=== PATIENT | male | born 1940 | race Caucasian/White ===

== ENCOUNTER 2020-02-01 06:42 | Outpatient (REF) | payer MEDICARE, SELFPAY ==
[2020-02-01 07:50] LABS: MANUAL DIFF FLAG NO
[2020-02-01 07:55] LABS: Basophils Percent Auto 0.5 % (0-2); Eosinophils Absolute Auto 0.1 X10*3/uL (0.0-0.4); Eosinophils Percent Auto 1.4 % (0-4); Hematocrit 39.9 % (42-52); Hemoglobin 12.6 g/dl (14.0-18.0); Imm Gran Abs Auto 0.06 X10*3/uL (0.00-0.03); Imm Gran Pct Auto 0.7 % (0.0-0.4); Lymphocytes Absolute Auto 1.7 X10*3/uL (1.2-4.9); Lymphocytes Percent Auto 19.4 % (20-40); Mean Corpuscular HGB Conc 31.6 g/dl (31.0-36.0); Mean Corpuscular Hemoglobin 31.5 pg (27.0-33.0); Mean Corpuscular Volume 99.8 fL (80-98); Mean Platelet Volume 10.8 fL (9.4-12.4); Monocytes Absolute Auto 0.8 X10*3/uL (0.1-1.2); Monocytes Percent Auto 8.9 % (2-11); Neutrophils Absolute Auto 5.9 X10*3/uL (2.0-8.3); Neutrophils Percent Auto 69.1 % (45-73); Platelet Count 191 X10*3/uL (160-400); Red Cell Distribution Width 11.9 % (11.0-16.0); White Blood Count 8.5 X10*3/uL (4.8-10.8)
[2020-02-01 08:08] LABS: Estimated Average Glucose 200 mg/dL; Hemoglobin A1c % 8.6 %
[2020-02-01 08:16] LABS: Creatinine Urine 125.07 mg/dL; Microalbum/Creatinine Ratio Ur 28.7 ug/mg cr
[2020-02-01 08:17] LABS: Alanine Aminotransferase 28 U/L (0-40); Albumin Level 3.7 g/dL (3.5-5.0); Alkaline Phosphatase 72 U/L (39-117); Anion Gap 13 (12-20); Aspartate Amino Transferase 28 U/L (5-37); Bilirubin Total 0.4 mg/dL (0.0-1.0); Blood Urea Nitrogen 22 mg/dL (9-16); Calcium 8.7 mg/dL (8.4-10.2); Carbon Dioxide 26 mmol/L (22-29); Chloride 107 mmol/L (96-108); Estimated Glomerular Filt Rate 42; Glucose Fasting 145 mg/dL (60-99); Sodium 141 mmol/L (135-145); Total Protein 6.8 g/dL (6.5-8.0)
[2020-02-01 08:41] LABS: Prostate Specific Antigen Scr 1.61 ng/mL (<0.05-4.0)
== END 2020-02-01 06:43 | disposition home or self-care (01) ==
LOC: HO.LAB 06:42
PROVIDERS: Visit Provider Internal Medicine
DX: E11.22 Type 2 diabetes mellitus with diabetic chronic kidney disease (principal); I12.9 Hypertensive chronic kidney disease with stage 1 through stage 4 chronic kidney disease, or unspecified chronic kidney disease; N18.9 Chronic kidney disease, unspecified; I48.0 Paroxysmal atrial fibrillation; N40.0 Benign prostatic hyperplasia without lower urinary tract symptoms
CPT/HCPCS: 36415; 80053; 82043; 83036; 84153; 85025

== ENCOUNTER 2020-03-28 06:22 | Outpatient (REF) | payer MEDICARE, SELFPAY ==
[2020-03-28 07:04] LABS: MANUAL DIFF FLAG NO
[2020-03-28 07:25] LABS: Basophils Percent Auto 0.6 % (0-2); Eosinophils Absolute Auto 0.1 X10*3/uL (0.0-0.4); Eosinophils Percent Auto 1.3 % (0-4); Hematocrit 38.6 % (42-52); Hemoglobin 12.3 g/dl (14.0-18.0); Imm Gran Abs Auto 0.05 X10*3/uL (0.00-0.03); Imm Gran Pct Auto 0.7 % (0.0-0.4); Lymphocytes Absolute Auto 1.5 X10*3/uL (1.2-4.9); Lymphocytes Percent Auto 22.2 % (20-40); Mean Corpuscular HGB Conc 31.9 g/dl (31.0-36.0); Mean Corpuscular Hemoglobin 30.8 pg (27.0-33.0); Mean Corpuscular Volume 96.5 fL (80-98); Monocytes Absolute Auto 0.5 X10*3/uL (0.1-1.2); Monocytes Percent Auto 7.7 % (2-11); Neutrophils Absolute Auto 4.6 X10*3/uL (2.0-8.3); Neutrophils Percent Auto 67.5 % (45-73); Platelet Count 194 X10*3/uL (160-400); Red Cell Distribution Width 12.4 % (11.0-16.0); White Blood Count 6.8 X10*3/uL (4.8-10.8)
[2020-03-28 07:29] LABS: Creatinine Urine 184.57 mg/dL; Microalbum/Creatinine Ratio Ur 31.4 ug/mg cr
[2020-03-28 07:35] LABS: Estimated Average Glucose 217 mg/dL; Hemoglobin A1c % 9.2 %
[2020-03-28 07:39] LABS: Alanine Aminotransferase 29 U/L (0-40); Albumin Level 3.9 g/dL (3.5-5.0); Alkaline Phosphatase 78 U/L (39-117); Anion Gap 11 (12-20); Aspartate Amino Transferase 25 U/L (5-37); Bilirubin Total 0.3 mg/dL (0.0-1.0); Blood Urea Nitrogen 21 mg/dL (9-16); Calcium 9.5 mg/dL (8.4-10.2); Carbon Dioxide 26 mmol/L (22-29); Chloride 105 mmol/L (96-108); Estimated Glomerular Filt Rate 46; Glucose Random 183 mg/dL (60-115); Potassium 4.9 mmol/l (3.3-5.1); Sodium 137 mmol/L (135-145)
== END 2020-03-28 06:23 | disposition home or self-care (01) ==
LOC: HO.LAB 06:22
PROVIDERS: Visit Provider Internal Medicine
DX: E11.9 Type 2 diabetes mellitus without complications (principal); I48.0 Paroxysmal atrial fibrillation; I12.9 Hypertensive chronic kidney disease with stage 1 through stage 4 chronic kidney disease, or unspecified chronic kidney disease; N18.9 Chronic kidney disease, unspecified
CPT/HCPCS: 36415; 80053; 82043; 83036; 85025

== ENCOUNTER 2020-06-12 09:06 | Outpatient (REF) | payer MEDICARE, SELFPAY ==
[2020-06-12 13:39] LABS: MANUAL DIFF FLAG NO
[2020-06-12 13:53] LABS: Basophils Percent Auto 0.6 % (0-2); Eosinophils Percent Auto 0.7 % (0-4); Hematocrit 34.8 % (42-52); Hemoglobin 11.2 g/dl (14.0-18.0); Imm Gran Pct Auto 0.4 % (0.0-0.4); Lymphocytes Percent Auto 20.8 % (20-40); Mean Corpuscular HGB Conc 32.2 g/dl (31.0-36.0); Mean Corpuscular Hemoglobin 31.1 pg (27.0-33.0); Mean Corpuscular Volume 96.7 fL (80-98); Mean Platelet Volume 11.2 fL (9.4-12.4); Monocytes Percent Auto 7.3 % (2-11); Neutrophils Percent Auto 70.2 % (45-73); Platelet Count 190 X10*3/uL (160-400); Red Cell Distribution Width 13.2 % (11.0-16.0); White Blood Count 7.1 X10*3/uL (4.8-10.8)
[2020-06-12 13:54] LABS: Eosinophils Absolute Auto 0.1 X10*3/uL (0.0-0.4); Imm Gran Abs Auto 0.03 X10*3/uL (0.00-0.03); Lymphocytes Absolute Auto 1.5 X10*3/uL (1.2-4.9); Monocytes Absolute Auto 0.5 X10*3/uL (0.1-1.2)
[2020-06-12 14:26] LABS: Alanine Aminotransferase 22 U/L (0-40); Albumin Level 3.8 g/dL (3.5-5.0); Alkaline Phosphatase 67 U/L (39-117); Anion Gap 14 (12-20); Aspartate Amino Transferase 25 U/L (5-37); Bilirubin Total 0.3 mg/dL (0.0-1.0); Blood Urea Nitrogen 18 mg/dL (9-16); Calcium 8.9 mg/dL (8.4-10.2); Carbon Dioxide 24 mmol/L (22-29); Chloride 104 mmol/L (96-108); Estimated Glomerular Filt Rate 52; Glucose Random 128 mg/dL (60-115); Lactate Dehydrogenase 177 U/L (118-273); Potassium 4.8 mmol/L (3.3-5.1); Sodium 137 mmol/L (135-145); Total Protein 6.8 g/dL (6.5-8.0)
[2020-06-12 14:33] LABS: Erythrocyte Sedimentation Rate 30 MM/HR (0-15)
== END 2020-06-12 09:07 | disposition home or self-care (01) ==
LOC: HO.10HDL 09:06
PROVIDERS: Visit Provider Internal Medicine Medical Oncology
DX: C85.90 Non-Hodgkin lymphoma, unspecified, unspecified site (principal); E66.3 Overweight; E11.9 Type 2 diabetes mellitus without complications; E78.5 Hyperlipidemia, unspecified; I10 Essential (primary) hypertension
CPT/HCPCS: 36415; 80053; 83615; 85025; 85652

== ENCOUNTER 2020-07-03 06:49 | Outpatient (REF) | payer MEDICARE, OTHER, SELFPAY ==
[2020-07-03 07:54] LABS: MANUAL DIFF FLAG NO
[2020-07-03 08:04] LABS: Basophils Percent Auto 0.5 % (0-2); Eosinophils Absolute Auto 0.1 X10*3/uL (0.0-0.4); Eosinophils Percent Auto 1.1 % (0-4); Imm Gran Abs Auto 0.05 X10*3/uL (0.00-0.03); Imm Gran Pct Auto 0.8 % (0.0-0.4); Lymphocytes Absolute Auto 1.6 X10*3/uL (1.2-4.9); Lymphocytes Percent Auto 23.7 % (20-40); Mean Corpuscular HGB Conc 32.4 g/dl (31.0-36.0); Mean Corpuscular Hemoglobin 31.3 pg (27.0-33.0); Mean Corpuscular Volume 96.9 fL (80-98); Mean Platelet Volume 11.1 fL (9.4-12.4); Monocytes Absolute Auto 0.6 X10*3/uL (0.1-1.2); Monocytes Percent Auto 8.7 % (2-11); Neutrophils Absolute Auto 4.4 X10*3/uL (2.0-8.3); Neutrophils Percent Auto 65.2 % (45-73); Platelet Count 157 X10*3/uL (160-400); Red Blood Count 3.51 X10*6/uL (4.60-5.80); Red Cell Distribution Width 13.2 % (11.0-16.0); White Blood Count 6.7 X10*3/uL (4.8-10.8)
[2020-07-03 08:17] LABS: Alanine Aminotransferase 22 U/L (0-40); Albumin Level 3.6 g/dL (3.5-5.0); Alkaline Phosphatase 66 U/L (39-117); Anion Gap 15 (12-20); Aspartate Amino Transferase 24 U/L (5-37); Bilirubin Total 0.3 mg/dL (0.0-1.0); Blood Urea Nitrogen 22 mg/dL (9-16); Calcium 8.6 mg/dL (8.4-10.2); Carbon Dioxide 21 mmol/L (22-29); Chloride 106 mmol/L (96-108); Estimated Glomerular Filt Rate 47; Glucose Random 198 mg/dL (60-115); Potassium 4.7 mmol/L (3.3-5.1); Sodium 137 mmol/L (135-145); Total Protein 6.6 g/dL (6.5-8.0)
[2020-07-03 08:31] LABS: Glucose Urine UA NEG (NEG); Leukocyte Esterase Urine TRACE (NEG); Nitrite Urine NEG (NEG); Urine Blood NEG (NEG); Urine Ketones NEG (NEG); Urine Protein NEG (NEG-TRACE)
[2020-07-03 08:42] LABS: Appearance Urine CLEAR; Color Urine YELLOW
[2020-07-03 08:55] LABS: RBC Urine 0 /HPF (0); Squamous Epithelial Cell Urine TRACE /LPF; WBC Urine 0-2 /HPF (0-4)
[2020-07-03 08:59] LABS: Creatinine Urine 119.74 mg/dL; Microalbum/Creatinine Ratio Ur 21.7 ug/mg cr
[2020-07-03 09:09] LABS: Estimated Average Glucose 180 mg/dL; Hemoglobin A1c % 7.9 %
== END 2020-07-03 06:50 | disposition home or self-care (01) ==
LOC: HO.LAB 06:49
PROVIDERS: PCP Internal Medicine; Visit Provider Internal Medicine
DX: I12.9 Hypertensive chronic kidney disease with stage 1 through stage 4 chronic kidney disease, or unspecified chronic kidney disease (principal); E11.22 Type 2 diabetes mellitus with diabetic chronic kidney disease; N18.9 Chronic kidney disease, unspecified
CPT/HCPCS: 36415; 80053; 81001; 81003; 82043; 83036; 85025

== ENCOUNTER 2020-09-15 14:04 | Outpatient (REF) | payer MEDICARE, OTHER, SELFPAY ==
[2020-09-15 14:57] LABS: MANUAL DIFF FLAG NO
[2020-09-15 15:00] LABS: Basophils Absolute Auto 0.1 X10*3/uL (0.0-0.2); Basophils Percent Auto 0.8 % (0-2); Eosinophils Absolute Auto 0.1 X10*3/uL (0.0-0.4); Eosinophils Percent Auto 0.6 % (0-4); Hematocrit 31.9 % (42-52); Hemoglobin 10.4 g/dl (14.0-18.0); Imm Gran Abs Auto 0.21 X10*3/uL (0.00-0.03); Imm Gran Pct Auto 2.7 % (0.0-0.4); Mean Corpuscular HGB Conc 32.6 g/dl (31.0-36.0); Mean Corpuscular Volume 95.2 fL (80-98); Mean Platelet Volume 11.3 fL (9.4-12.4); Monocytes Absolute Auto 0.7 X10*3/uL (0.1-1.2); Monocytes Percent Auto 9.2 % (2-11); Neutrophils Absolute Auto 5.7 X10*3/uL (2.0-8.3); Neutrophils Percent Auto 73.7 % (45-73); Platelet Count 156 X10*3/uL (160-400); Red Blood Count 3.35 X10*6/uL (4.60-5.80); Red Cell Distribution Width 12.7 % (11.0-16.0); White Blood Count 7.7 X10*3/uL (4.8-10.8)
[2020-09-15 15:06] LABS: Estimated Average Glucose 217 mg/dL; Hemoglobin A1c % 9.2 %
[2020-09-15 15:21] LABS: Glucose Urine UA 500 MG/DL (NEG); Leukocyte Esterase Urine 3+ (NEG); Nitrite Urine NEG (NEG); Specific Gravity - Urine <= 1.005 (1.005-1.025); Urine Blood TRACE (NEG); Urine Ketones NEG (NEG); Urine Protein NEG (NEG-TRACE)
[2020-09-15 15:24] LABS: Appearance Urine HAZY; Color Urine YELLOW
[2020-09-15 15:25] LABS: Alanine Aminotransferase 44 U/L (0-40); Albumin Level 3.4 g/dL (3.5-5.0); Alkaline Phosphatase 107 U/L (39-117); Anion Gap 15 (12-20); Aspartate Amino Transferase 45 U/L (5-37); Bilirubin Total 0.2 mg/dL (0.0-1.0); Blood Urea Nitrogen 29 mg/dL (9-16); Calcium 8.5 mg/dL (8.4-10.2); Carbon Dioxide 21 mmol/L (22-29); Chloride 103 mmol/L (96-108); Estimated Glomerular Filt Rate 42; Glucose Random 273 mg/dL (60-115); Potassium 4.7 mmol/L (3.3-5.1); Sodium 134 mmol/L (135-145); Total Protein 6.4 g/dL (6.5-8.0)
[2020-09-15 15:36] LABS: Creatinine Urine 41.91 mg/dL; Microalbum/Creatinine Ratio Ur 107.3 ug/mg cr
[2020-09-15 15:54] LABS: Bacteria Urine 4+ /LPF; RBC Urine 0-2 /HPF (0); Squamous Epithelial Cell Urine 1+ /LPF
== END 2020-09-15 14:05 | disposition home or self-care (01) ==
LOC: HO.LAB 14:04
PROVIDERS: PCP Internal Medicine; Visit Provider Internal Medicine
DX: R30.0 Dysuria (principal); I48.0 Paroxysmal atrial fibrillation; I12.9 Hypertensive chronic kidney disease with stage 1 through stage 4 chronic kidney disease, or unspecified chronic kidney disease; N18.9 Chronic kidney disease, unspecified; E11.22 Type 2 diabetes mellitus with diabetic chronic kidney disease
CPT/HCPCS: 36415; 80053; 81001; 81003; 82043; 83036; 85025; 87086; 87088; 87186

== ENCOUNTER 2020-09-18 15:51 | Outpatient (REF) | payer MEDICARE, OTHER, SELFPAY ==
--- NOTE | ~2020-09-18 | US_ITS ---
EXAMINATION: US RETROPERITONEAL COMPLETE (RENAL) CLINICAL INFORMATION: Dysuria. COMPARISON: None TECHNIQUE: Real-time imaging of the kidneys and bladder. FINDINGS: RIGHT KIDNEY: 10.7 x 4.8 x 4.9 cm (SAG x AP x TRV). The kidney is normal in size, contour, and echogenicity. Renal cortical thickness is normal. No calculi or focal parenchymal lesions. No hydronephrosis. LEFT KIDNEY: 11.6 x 4.5 x 4.6 cm (SAG x AP x TRV). The kidney is normal in size, contour, and echogenicity. Renal cortical thickness is normal. No calculi or focal parenchymal lesions. No hydronephrosis. BLADDER: Not well visualized due to bowel gas.. Bilateral ureteral jets are demonstrated. Prevoid bladder volume is 171.5 mL. Postvoid bladder volume is 70.2 mL. The prostate gland is not seen. US/US retroperitoneal comp IMPRESSION: Normal renal ultrasound. Bladder not well visualized by ultrasound due to bowel gas. 70 mL post void bladder residual.
[2020-09-18 16:59] LABS: Glucose Urine UA >=1000 MG/DL (NEG); Leukocyte Esterase Urine TRACE (NEG); Nitrite Urine NEG (NEG); UACC Culture Trigger YES; Urine Blood NEG (NEG); Urine Ketones NEG (NEG); Urine Protein NEG (NEG-TRACE)
[2020-09-18 17:02] LABS: Anion Gap 13 (12-20); Blood Urea Nitrogen 23 mg/dL (9-16); Calcium 8.7 mg/dL (8.4-10.2); Carbon Dioxide 21 mmol/L (22-29); Chloride 106 mmol/L (96-108); Estimated Glomerular Filt Rate 43; Glucose Random 382 mg/dL (60-115); Potassium 4.7 mmol/L (3.3-5.1); Sodium 135 mmol/L (135-145)
[2020-09-18 17:04] LABS: Appearance Urine CLEAR; Color Urine STRAW
== END 2020-09-18 15:52 | disposition home or self-care (01) ==
LOC: HO.US 15:51
PROVIDERS: PCP Internal Medicine; Visit Provider Internal Medicine
DX: R30.0 Dysuria (principal); I10 Essential (primary) hypertension; R35.0 Frequency of micturition
CPT/HCPCS: 36415; 76770; 80048; 81001; 81003; 87086

== ENCOUNTER → 2020-11-01 14:33 | Outpatient (BNVA) | payer MEDICARE, OTHER, SELFPAY | PROVIDERS: PCP Internal Medicine; Visit Provider Urology | DX: N40.1 Benign prostatic hyperplasia with lower urinary tract symptoms (principal); N13.8 Other obstructive and reflux uropathy; N39.0 Urinary tract infection, site not specified; R33.9 Retention of urine, unspecified | CPT/HCPCS: 99212 ==

== ENCOUNTER → 2020-12-07 08:38 | Outpatient (BNVA) | payer MEDICARE, OTHER, SELFPAY | PROVIDERS: PCP Internal Medicine; Visit Provider Urology | DX: N40.1 Benign prostatic hyperplasia with lower urinary tract symptoms (principal); N13.8 Other obstructive and reflux uropathy; R33.9 Retention of urine, unspecified | CPT/HCPCS: 52000; 99212 ==

== ENCOUNTER 2020-12-15 09:22 | Outpatient (REF) | payer MEDICARE, OTHER, SELFPAY ==
[2020-12-15 10:01] LABS: MANUAL DIFF FLAG NO
[2020-12-15 10:11] LABS: Basophils Percent Auto 0.5 % (0-2); Eosinophils Absolute Auto 0.1 X10*3/uL (0.0-0.4); Eosinophils Percent Auto 0.8 % (0-4); Hematocrit 34.4 % (42-52); Hemoglobin 11.3 g/dl (14.0-18.0); Imm Gran Abs Auto 0.03 X10*3/uL (0.00-0.03); Imm Gran Pct Auto 0.5 % (0.0-0.4); Lymphocytes Percent Auto 16.8 % (20-40); Mean Corpuscular HGB Conc 32.8 g/dl (31.0-36.0); Mean Corpuscular Hemoglobin 31.1 pg (27.0-33.0); Mean Corpuscular Volume 94.8 fL (80-98); Mean Platelet Volume 10.8 fL (9.4-12.4); Monocytes Absolute Auto 0.4 X10*3/uL (0.1-1.2); Monocytes Percent Auto 7.3 % (2-11); Neutrophils Absolute Auto 4.5 X10*3/uL (2.0-8.3); Neutrophils Percent Auto 74.1 % (45-73); Platelet Count 147 X10*3/uL (160-400); Red Blood Count 3.63 X10*6/uL (4.60-5.80); Red Cell Distribution Width 13.2 % (11.0-16.0)
[2020-12-15 10:25] LABS: Estimated Average Glucose 255 mg/dL; Hemoglobin A1c % 10.5 %
[2020-12-15 10:29] LABS: Lactate Dehydrogenase 170 U/L (118-273)
[2020-12-15 10:51] LABS: Alanine Aminotransferase 51 U/L (0-40); Albumin Level 3.7 g/dL (3.5-5.0); Alkaline Phosphatase 69 U/L (39-117); Anion Gap 13 (12-20); Aspartate Amino Transferase 42 U/L (5-37); Bilirubin Total 0.5 mg/dL (0.0-1.0); Blood Urea Nitrogen 24 mg/dL (9-16); Calcium 9.2 mg/dL (8.4-10.2); Carbon Dioxide 20 mmol/L (22-29); Chloride 106 mmol/L (96-108); Estimated Glomerular Filt Rate 35; Glucose Random 454 mg/dL (60-115); Potassium 5.1 mmol/L (3.3-5.1); Sodium 134 mmol/L (135-145); Total Protein 6.6 g/dL (6.5-8.0)
[2020-12-15 10:56] LABS: Creatinine Urine 133.96 mg/dL; Microalbum/Creatinine Ratio Ur 22.3 ug/mg cr
[2020-12-15 12:27] LABS: Erythrocyte Sedimentation Rate 34 MM/HR (0-15)
== END 2020-12-15 09:23 | disposition home or self-care (01) ==
LOC: HO.LAB 09:22
PROVIDERS: Absent Provider Internal Medicine; PCP Internal Medicine; Visit Provider Internal Medicine Medical Oncology
DX: C85.90 Non-Hodgkin lymphoma, unspecified, unspecified site (principal); I48.0 Paroxysmal atrial fibrillation; I12.9 Hypertensive chronic kidney disease with stage 1 through stage 4 chronic kidney disease, or unspecified chronic kidney disease; E11.22 Type 2 diabetes mellitus with diabetic chronic kidney disease; N18.9 Chronic kidney disease, unspecified
CPT/HCPCS: 36415; 80053; 82043; 83036; 83615; 85025; 85652

== ENCOUNTER 2021-04-23 06:34 | Outpatient (REF) | payer MEDICARE, OTHER, SELFPAY ==
[2021-04-23 07:37] LABS: Estimated Average Glucose 240 mg/dL
[2021-04-23 07:54] LABS: Anion Gap 11 (12-20); Blood Urea Nitrogen 28 mg/dL (9-16); Calcium 9.5 mg/dL (8.4-10.2); Carbon Dioxide 27 mmol/L (22-29); Chloride 104 mmol/L (96-108); Estimated Glomerular Filt Rate 44; Glucose Random 161 mg/dL (60-115); Potassium 4.8 mmol/L (3.3-5.1); Sodium 137 mmol/L (135-145)
== END 2021-04-23 06:35 | disposition home or self-care (01) ==
LOC: HO.LAB 06:34
PROVIDERS: PCP Internal Medicine; Visit Provider Internal Medicine
DX: I12.9 Hypertensive chronic kidney disease with stage 1 through stage 4 chronic kidney disease, or unspecified chronic kidney disease (principal); E11.22 Type 2 diabetes mellitus with diabetic chronic kidney disease; N18.9 Chronic kidney disease, unspecified; I73.9 Peripheral vascular disease, unspecified
CPT/HCPCS: 36415; 80048; 83036

== ENCOUNTER → 2021-04-27 07:37 | Outpatient (REF) | payer MEDICARE, OTHER, SELFPAY ==
--- NOTE | ~2021-04-27 | NM_ITS ---
Myocardial perfusion study Indication: Shortness of breath on exertion with abnormal EKG to evaluate for myocardial Technique: The patient was brought in for a Lexiscan perfusion study on 04/27/2021. Patient performed low-level exercise and was injected 0.4 mg of Lexiscan intravenously. Within a minute of injection, 30 mCi of sestamibi was given intravenously. Images were obtained using the SPECT gamma camera interlaced with the gating device. Images were obtained in supine position. Resting perfusion study was performed on 04/30/2021. Patient was administered 30 mCi of sestamibi intravenously at rest. Images were then obtained in supine position. Images obtained with and without CT attenuation. Total DLP 110 mGy-cm. Images were processed with the software and compared side to side in short axis, horizontal long axis and vertical long axis views. Findings: The stress perfusion study showed non attenuated images show moderately reduced uptake in the basal and mid inferior wall as well as apical inferior and apex of the LV myocardium. Attenuation corrected images show moderately reduced uptake in the apex of the LV myocardium.. The gated study shows normal LV systolic function with visually estimated LVEF of greater than 60 %. LV cavity is mildly dilated size. The gated study shows normal systolic wall thickening and contraction of segments. Resting study shows no significant change in perfusion pattern compared to stress perfusion study. Gating at rest reveals normal systolic wall motion with ejection fraction at 61%. The findings are consistent with no clear reversible defect suggestive of ischemia. NM/NM josr perf SPECT rest & str Impression: 1. Myocardial perfusion imaging study shows likely normal myocardial perfusion 2. Gated LVEF is 61% 3. Transient ischemic dilatation not present EKG is nondiagnostic for ischemia
--- NOTE | 2021-04-27 07:41 | CA_ITS ---
Acquisition Time: 2021-04-27 07:39:59 Total Exercise Time: 00:02:00 Test Indications: Abnormal ECG Medications: INSULIN GLIPIZIDE TOPROLOL Protocol: LEXISCAN Max HR: 105 BPM 74% of Pred: 141 BPM Max BP: 124/054 mmHG Max Work Load: 1.7 METS EVELIA/MIBI PROTOCOL. SOME MILD CHEST TIGHTNESS. PT WALKED 2MIN ON TREADMILL. 1MMST SAGGING IN V5-6. RARE PVC.CLINICALLY EQUIVOCAL,AWAIT SCAN RESULTS. Referred By: Donte Hernandez Overread By: JOSEPH HERNANDEZ MD
== END ==
LOC: HO.CARD 07:37
PROVIDERS: Visit Provider Internal Medicine
DX: R06.02 Shortness of breath (principal); I48.0 Paroxysmal atrial fibrillation; R94.39 Abnormal result of other cardiovascular function study
CPT/HCPCS: 78452; 93017; A9500; J0280; J2785

== ENCOUNTER → 2021-06-07 10:33 | Outpatient (BNVA) | payer MEDICARE, OTHER, SELFPAY | PROVIDERS: PCP Internal Medicine; Visit Provider Urology | DX: N40.1 Benign prostatic hyperplasia with lower urinary tract symptoms (principal); N13.8 Other obstructive and reflux uropathy; R33.9 Retention of urine, unspecified | CPT/HCPCS: 51798; 99212 ==

== ENCOUNTER 2021-08-30 10:00 | Outpatient (REF) | payer MEDICARE, OTHER, SELFPAY ==
--- NOTE | ~2021-08-30 | XR_ITS ---
EXAMINATION: XR CHEST CLINICAL INFORMATION: COPD, evaluate for pneumonia. COMPARISON: Chest radiograph dated from 12/18/2017. TECHNIQUE: 2 views of the chest were obtained. FINDINGS: Stable appearance of the cardiomediastinal silhouette. Minimal interstitial thickening with no focal airspace opacities, pleural effusion or pneumothorax. No acute osseous abnormality. The visualized upper abdomen is within normal limits. XR/XR chest 2V IMPRESSION: Mild interstitial prominence is indeterminate and could be seen with asthma, bronchitis, reactive airways disease or atypical infections. No focal infiltrate. No pleural effusion or pneumothorax.
[2021-08-30 10:23] LABS: MANUAL DIFF FLAG NO
[2021-08-30 11:19] LABS: Estimated Average Glucose 194 mg/dL; Hemoglobin A1c % 8.4 %
[2021-08-30 11:23] LABS: Basophils Percent Auto 0.7 % (0-2); Eosinophils Absolute Auto 0.1 X10*3/uL (0.0-0.4); Eosinophils Percent Auto 1.1 % (0-4); Hematocrit 32.9 % (42.0-52.0); Hemoglobin 10.5 g/dl (14.0-18.0); Imm Gran Abs Auto 0.03 X10*3/uL (0.00-0.03); Imm Gran Pct Auto 0.5 % (0.0-0.4); Lymphocytes Absolute Auto 1.5 X10*3/uL (1.2-4.9); Lymphocytes Percent Auto 26.3 % (20-40); Mean Corpuscular HGB Conc 31.9 g/dl (31.0-36.0); Mean Corpuscular Hemoglobin 30.8 pg (27.0-33.0); Mean Corpuscular Volume 96.5 fL (80.0-98.0); Mean Platelet Volume 11.3 fL (9.4-12.4); Monocytes Absolute Auto 0.4 X10*3/uL (0.1-1.2); Monocytes Percent Auto 7.8 % (2-11); Neutrophils Absolute Auto 3.6 x10*3/uL (2.0-8.3); Neutrophils Percent Auto 63.6 % (45-73); Platelet Count 145 X10*3/uL (160-400); Red Blood Count 3.41 X10*6/uL (4.60-5.80); Red Cell Distribution Width 14.8 % (11.0-16.0); White Blood Count 5.6 X10*3/uL (4.8-10.8)
[2021-08-30 11:54] LABS: Alanine Aminotransferase 29 U/L (0-40); Albumin Level 3.6 g/dL (3.5-5.0); Alkaline Phosphatase 62 U/L (39-117); Anion Gap 14 (12-20); Aspartate Amino Transferase 29 U/L (5-37); Bilirubin Total 0.3 mg/dL (0.0-1.0); Blood Urea Nitrogen 35 mg/dL (9-16); Calcium 8.7 mg/dL (8.4-10.2); Carbon Dioxide 20 mmol/L (22-29); Chloride 106 mmol/L (96-108); Estimated Glomerular Filt Rate 42; Glucose Random 253 mg/dL (60-115); Iron 79 mcg/dL (45-160); Percent Iron Saturation 25 % (15-50); Sodium 135 mmol/L (135-145); Total Iron Binding Capacity 317 mcg/dL (228-428); Total Protein 6.3 g/dL (6.5-8.0); Unsaturated Iron Binding 238 ug/dL
[2021-08-30 11:57] LABS: Creatinine Urine 155.48 mg/dL
== END 2021-08-30 10:01 | disposition home or self-care (01) ==
LOC: HO.XRAY 10:00
PROVIDERS: PCP Internal Medicine; Visit Provider Internal Medicine
DX: E11.9 Type 2 diabetes mellitus without complications (principal); J44.9 Chronic obstructive pulmonary disease, unspecified; N18.9 Chronic kidney disease, unspecified; D64.9 Anemia, unspecified
CPT/HCPCS: 36415; 71046; 80053; 82043; 83036; 83540; 85025

== ENCOUNTER 2021-11-06 16:19 | Outpatient (REF) | payer MEDICARE, OTHER, SELFPAY ==
[2021-11-06 16:38] LABS: MANUAL DIFF FLAG NO
[2021-11-06 17:04] LABS: Basophils Percent Auto 0.6 % (0-2); Eosinophils Absolute Auto 0.1 X10*3/uL (0.0-0.4); Eosinophils Percent Auto 1.4 % (0-4); Hematocrit 35.7 % (42.0-52.0); Hemoglobin 11.6 g/dl (14.0-18.0); Imm Gran Abs Auto 0.03 X10*3/uL (0.00-0.03); Imm Gran Pct Auto 0.5 % (0.0-0.4); Lymphocytes Absolute Auto 1.8 X10*3/uL (1.2-4.9); Lymphocytes Percent Auto 28.5 % (20-40); Mean Corpuscular HGB Conc 32.5 g/dl (31.0-36.0); Mean Corpuscular Volume 98.6 fL (80.0-98.0); Mean Platelet Volume 10.9 fL (9.4-12.4); Monocytes Absolute Auto 0.6 X10*3/uL (0.1-1.2); Monocytes Percent Auto 9.2 % (2-11); Neutrophils Absolute Auto 3.8 x10*3/uL (2.0-8.3); Neutrophils Percent Auto 59.8 % (45-73); Platelet Count 169 X10*3/uL (160-400); Red Blood Count 3.62 X10*6/uL (4.60-5.80); Red Cell Distribution Width 13.4 % (11.0-16.0); White Blood Count 6.3 X10*3/uL (4.8-10.8)
[2021-11-06 17:10] LABS: Estimated Average Glucose 160 mg/dL; Hemoglobin A1c % 7.2 %
[2021-11-06 17:33] LABS: Alanine Aminotransferase 23 U/L (0-40); Albumin Level 4.1 g/dL (3.5-5.0); Alkaline Phosphatase 59 U/L (39-117); Anion Gap 15 (12-20); Aspartate Amino Transferase 23 U/L (5-37); Bilirubin Total 0.2 mg/dL (0.0-1.0); Blood Urea Nitrogen 25 mg/dL (9-16); Calcium 8.9 mg/dL (8.4-10.2); Carbon Dioxide 23 mmol/L (22-29); Chloride 107 mmol/L (96-108); Estimated Glomerular Filt Rate 44; Glucose Random 123 mg/dL (60-115); Potassium 4.4 mmol/L (3.3-5.1); Sodium 141 mmol/L (135-145)
== END 2021-11-06 16:20 | disposition home or self-care (01) ==
LOC: HO.LAB 16:19
PROVIDERS: PCP Internal Medicine; Visit Provider Internal Medicine
DX: E11.9 Type 2 diabetes mellitus without complications (principal); I48.0 Paroxysmal atrial fibrillation; N18.9 Chronic kidney disease, unspecified
CPT/HCPCS: 36415; 80053; 83036; 85025

== ENCOUNTER 2021-12-17 12:58 | Outpatient (REF) | payer MEDICARE, OTHER, SELFPAY ==
[2021-12-17 13:18] LABS: MANUAL DIFF FLAG NO
[2021-12-17 14:01] LABS: Basophils Percent Auto 0.5 % (0-2); Eosinophils Absolute Auto 0.1 X10*3/uL (0.0-0.4); Eosinophils Percent Auto 1.8 % (0-4); Hematocrit 34.8 % (42.0-52.0); Hemoglobin 10.9 g/dl (14.0-18.0); Imm Gran Abs Auto 0.03 X10*3/uL (0.00-0.03); Imm Gran Pct Auto 0.5 % (0.0-0.4); Lymphocytes Absolute Auto 1.6 X10*3/uL (1.2-4.9); Lymphocytes Percent Auto 28.6 % (20-40); Mean Corpuscular HGB Conc 31.3 g/dl (31.0-36.0); Mean Corpuscular Hemoglobin 31.1 pg (27.0-33.0); Mean Corpuscular Volume 99.4 fL (80.0-98.0); Mean Platelet Volume 11.2 fL (9.4-12.4); Monocytes Absolute Auto 0.5 X10*3/uL (0.1-1.2); Neutrophils Absolute Auto 3.4 x10*3/uL (2.0-8.3); Neutrophils Percent Auto 59.6 % (45-73); Platelet Count 153 X10*3/uL (160-400); Red Cell Distribution Width 13.1 % (11.0-16.0); White Blood Count 5.7 X10*3/uL (4.8-10.8)
[2021-12-17 14:10] LABS: Estimated Average Glucose 160 mg/dL; Hemoglobin A1c % 7.2 %
[2021-12-17 14:41] LABS: Alanine Aminotransferase 18 U/L (0-40); Albumin Level 3.8 g/dL (3.5-5.0); Alkaline Phosphatase 64 U/L (39-117); Anion Gap 15 (12-20); Aspartate Amino Transferase 24 U/L (5-37); Bilirubin Total 0.2 mg/dL (0.0-1.0); Blood Urea Nitrogen 27 mg/dL (9-16); Calcium 8.8 mg/dL (8.4-10.2); Carbon Dioxide 20 mmol/L (22-29); Chloride 108 mmol/L (96-108); Estimated Glomerular Filt Rate 46; Glucose Random 116 mg/dL (60-115); Iron 51 mcg/dL (45-160); Lactate Dehydrogenase 155 U/L (118-273); Percent Iron Saturation 16 % (15-50); Potassium 4.3 mmol/L (3.3-5.1); Sodium 139 mmol/L (135-145); Total Iron Binding Capacity 329 mcg/dL (228-428); Total Protein 6.7 g/dL (6.5-8.0); Unsaturated Iron Binding 278 ug/dL
[2021-12-17 14:47] LABS: Erythrocyte Sedimentation Rate 28 MM/HR (0-15)
[2021-12-17 18:02] LABS: Creatinine Urine 26.03 mg/dL; Microalbum/Creatinine Ratio Ur 19.2 ug/mg cr
== END 2021-12-17 12:59 | disposition home or self-care (01) ==
LOC: HO.LAB 12:58
PROVIDERS: Absent Provider Internal Medicine; PCP Internal Medicine; Visit Provider Internal Medicine Medical Oncology
DX: C85.90 Non-Hodgkin lymphoma, unspecified, unspecified site (principal); E66.3 Overweight; E78.5 Hyperlipidemia, unspecified; I48.0 Paroxysmal atrial fibrillation; I12.9 Hypertensive chronic kidney disease with stage 1 through stage 4 chronic kidney disease, or unspecified chronic kidney disease; E11.22 Type 2 diabetes mellitus with diabetic chronic kidney disease; N18.9 Chronic kidney disease, unspecified; I73.9 Peripheral vascular disease, unspecified
CPT/HCPCS: 36415; 80053; 82043; 83036; 83540; 83615; 85025; 85652

== ENCOUNTER 2022-01-21 10:45 | Outpatient (REF) | payer MEDICARE, OTHER, SELFPAY ==
[2022-01-21 14:21] LABS: Prostate Specific Antigen Scr 0.59 ng/mL (<0.05-4.0)
== END 2022-01-21 10:46 | disposition home or self-care (01) ==
LOC: HO.10HDL 10:45
PROVIDERS: Visit Provider Internal Medicine
DX: Z12.5 Encounter for screening for malignant neoplasm of prostate (principal); N40.0 Benign prostatic hyperplasia without lower urinary tract symptoms; R35.1 Nocturia
CPT/HCPCS: 36415; 84153

== ENCOUNTER 2022-02-18 06:53 | Outpatient (REF) | payer MEDICARE, OTHER, SELFPAY ==
[2022-02-18 06:58] LABS: MANUAL DIFF FLAG NO
[2022-02-18 07:26] LABS: Basophils Percent Auto 0.6 % (0-2); Eosinophils Absolute Auto 0.1 X10*3/uL (0.0-0.4); Eosinophils Percent Auto 1.4 % (0-4); Hematocrit 37.6 % (42.0-52.0); Imm Gran Abs Auto 0.04 X10*3/uL (0.00-0.03); Imm Gran Pct Auto 0.6 % (0.0-0.4); Lymphocytes Absolute Auto 1.4 X10*3/uL (1.2-4.9); Lymphocytes Percent Auto 20.1 % (20-40); Mean Corpuscular HGB Conc 31.9 g/dl (31.0-36.0); Mean Corpuscular Hemoglobin 31.1 pg (27.0-33.0); Mean Corpuscular Volume 97.4 fL (80.0-98.0); Mean Platelet Volume 11.3 fL (9.4-12.4); Monocytes Absolute Auto 0.7 X10*3/uL (0.1-1.2); Monocytes Percent Auto 9.9 % (2-11); Neutrophils Absolute Auto 4.7 x10*3/uL (2.0-8.3); Neutrophils Percent Auto 67.4 % (45-73); Platelet Count 158 X10*3/uL (160-400); Red Blood Count 3.86 X10*6/uL (4.60-5.80); Red Cell Distribution Width 13.9 % (11.0-16.0)
[2022-02-18 07:56] LABS: Anion Gap 13 (12-20); Blood Urea Nitrogen 26 mg/dL (9-16); Calcium 8.6 mg/dL (8.4-10.2); Carbon Dioxide 22 mmol/L (22-29); Chloride 106 mmol/L (96-108); Cholesterol 140 mg/dL; Estimated Glomerular Filt Rate 43; Glucose Random 195 mg/dL (60-115); HDL Cholesterol 31 mg/dL; LDL Cholesterol Calculated 81 mg/dl; Potassium 4.6 mmol/L (3.3-5.1); Sodium 136 mmol/L (135-145); Triglycerides 140 mg/dL
== END 2022-02-18 06:54 | disposition home or self-care (01) ==
LOC: HO.LAB 06:53
PROVIDERS: PCP Internal Medicine; Visit Provider Nurse Practitioner Family
DX: E78.2 Mixed hyperlipidemia (principal); I48.0 Paroxysmal atrial fibrillation; E11.22 Type 2 diabetes mellitus with diabetic chronic kidney disease; N18.30 Chronic kidney disease, stage 3 unspecified
CPT/HCPCS: 36415; 80048; 80061; 85025

== ENCOUNTER → 2022-04-30 14:18 | Outpatient (BNVA) | payer MEDICARE, OTHER, SELFPAY | PROVIDERS: PCP Internal Medicine; Visit Provider Nurse Practitioner Family | DX: N40.1 Benign prostatic hyperplasia with lower urinary tract symptoms (principal); N13.8 Other obstructive and reflux uropathy; R33.8 Other retention of urine; N39.0 Urinary tract infection, site not specified; E11.9 Type 2 diabetes mellitus without complications; I10 Essential (primary) hypertension; C84.90 Mature T/NK-cell lymphomas, unspecified, unspecified site; Z79.82 Long term (current) use of aspirin; Z79.899 Other long term (current) drug therapy | CPT/HCPCS: 51798; 99212 ==

== ENCOUNTER 2022-06-13 06:57 | Outpatient (REF) | payer MEDICARE, OTHER, SELFPAY ==
[2022-06-13 07:12] LABS: MANUAL DIFF FLAG NO
[2022-06-13 07:48] LABS: Basophils Percent Auto 0.6 % (0-2); Eosinophils Absolute Auto 0.1 X10*3/uL (0.0-0.4); Eosinophils Percent Auto 1.1 % (0-4); Hematocrit 38.3 % (42.0-52.0); Hemoglobin 12.7 g/dl (14.0-18.0); Imm Gran Abs Auto 0.04 X10*3/uL (0.00-0.03); Imm Gran Pct Auto 0.7 % (0.0-0.4); Lymphocytes Absolute Auto 1.3 X10*3/uL (1.2-4.9); Lymphocytes Percent Auto 23.5 % (20-40); Mean Corpuscular HGB Conc 33.2 g/dl (31.0-36.0); Mean Corpuscular Hemoglobin 32.2 pg (27.0-33.0); Monocytes Absolute Auto 0.5 X10*3/uL (0.1-1.2); Monocytes Percent Auto 9.3 % (2-11); Neutrophils Absolute Auto 3.5 x10*3/uL (2.0-8.3); Neutrophils Percent Auto 64.8 % (45-73); Platelet Count 144 X10*3/uL (160-400); Red Blood Count 3.95 X10*6/uL (4.60-5.80); Red Cell Distribution Width 14.2 % (11.0-16.0); White Blood Count 5.4 X10*3/uL (4.8-10.8)
[2022-06-13 08:36] LABS: Alanine Aminotransferase 28 U/L (0-40); Albumin Level 3.8 g/dL (3.5-5.0); Alkaline Phosphatase 64 U/L (39-117); Anion Gap 16 (12-20); Aspartate Amino Transferase 30 U/L (5-37); Bilirubin Total 0.6 mg/dL (0.0-1.0); Blood Urea Nitrogen 27 mg/dL (9-16); Calcium 9.2 mg/dL (8.4-10.2); Carbon Dioxide 19 mmol/L (22-29); Chloride 110 mmol/L (96-108); Estimated Glomerular Filt Rate 53; Glucose Random 181 mg/dL (60-115); Lactate Dehydrogenase 219 U/L (118-273); Potassium 4.7 mmol/L (3.3-5.1); Sodium 140 mmol/L (135-145); Total Protein 6.8 g/dL (6.5-8.0)
[2022-06-13 08:43] LABS: Prostate Specific Antigen 0.59 ng/mL (<0.05-4.0)
[2022-06-13 08:45] LABS: Erythrocyte Sedimentation Rate 16 MM/HR (0-15)
== END 2022-06-13 06:58 | disposition home or self-care (01) ==
LOC: HO.LAB 06:57
PROVIDERS: PCP Internal Medicine; Visit Provider Internal Medicine Medical Oncology
DX: C85.90 Non-Hodgkin lymphoma, unspecified, unspecified site (principal); I10 Essential (primary) hypertension; C44.310 Basal cell carcinoma of skin of unspecified parts of face; Z12.5 Encounter for screening for malignant neoplasm of prostate
CPT/HCPCS: 36415; 80053; 83615; 84153; 85025; 85652

== ENCOUNTER 2022-10-10 08:35 | Outpatient (REF) | payer MEDICARE, OTHER, SELFPAY ==
[2022-10-10 11:06] LABS: Anion Gap 11 (12-20); Blood Urea Nitrogen 19 mg/dL (9-16); Calcium 9.1 mg/dL (8.4-10.2); Carbon Dioxide 23 mmol/L (22-29); Chloride 106 mmol/L (96-108); Estimated Glomerular Filt Rate 47; Glucose Random 334 mg/dL (60-115); Potassium 4.5 mmol/L (3.3-5.1); Sodium 135 mmol/L (135-145)
== END 2022-10-10 08:36 | disposition home or self-care (01) ==
LOC: HO.10HDL 08:35
PROVIDERS: Visit Provider Nurse Practitioner Family
DX: I10 Essential (primary) hypertension (principal)
CPT/HCPCS: 36415; 80048

== ENCOUNTER 2022-11-12 11:34 | Outpatient (REF) | payer MEDICARE, OTHER, SELFPAY ==
[2022-11-12 13:18] LABS: MANUAL DIFF FLAG NO
[2022-11-12 13:21] LABS: Basophils Percent Auto 0.5 % (0-2); Eosinophils Percent Auto 0.7 % (0-4); Hematocrit 39.5 % (42.0-52.0); Imm Gran Abs Auto 0.03 X10*3/uL (0.00-0.03); Imm Gran Pct Auto 0.5 % (0.0-0.4); Lymphocytes Absolute Auto 1.6 X10*3/uL (1.2-4.9); Lymphocytes Percent Auto 27.6 % (20-40); Mean Corpuscular HGB Conc 32.9 g/dl (31.0-36.0); Mean Corpuscular Hemoglobin 31.9 pg (27.0-33.0); Mean Corpuscular Volume 96.8 fL (80.0-98.0); Mean Platelet Volume 11.5 fL (9.4-12.4); Monocytes Absolute Auto 0.6 X10*3/uL (0.1-1.2); Monocytes Percent Auto 10.3 % (2-11); Neutrophils Absolute Auto 3.5 x10*3/uL (2.0-8.3); Neutrophils Percent Auto 60.4 % (45-73); Platelet Count 141 X10*3/uL (160-400); Red Blood Count 4.08 X10*6/uL (4.60-5.80); Red Cell Distribution Width 13.1 % (11.0-16.0); White Blood Count 5.7 X10*3/uL (4.8-10.8)
[2022-11-12 13:27] LABS: Estimated Average Glucose 177 mg/dL; Hemoglobin A1c % 7.8 % (<6.0)
[2022-11-12 13:38] LABS: Alanine Aminotransferase 28 U/L (0-40); Albumin Level 3.9 g/dL (3.5-5.0); Alkaline Phosphatase 55 U/L (39-117); Anion Gap 12 (12-20); Aspartate Amino Transferase 28 U/L (5-37); Bilirubin Total 0.6 mg/dL (0.0-1.0); Blood Urea Nitrogen 22 mg/dL (9-16); Calcium 9.8 mg/dL (8.4-10.2); Carbon Dioxide 24 mmol/L (22-29); Chloride 107 mmol/L (96-108); Estimated Glomerular Filt Rate 58; Glucose Random 77 mg/dL (60-115); Potassium 4.2 mmol/L (3.3-5.1); Sodium 139 mmol/L (135-145); Total Protein 7.2 g/dL (6.5-8.0)
== END 2022-11-12 11:35 | disposition home or self-care (01) ==
LOC: HO.10HDL 11:34
PROVIDERS: Visit Provider Internal Medicine
DX: I12.9 Hypertensive chronic kidney disease with stage 1 through stage 4 chronic kidney disease, or unspecified chronic kidney disease (principal); E11.22 Type 2 diabetes mellitus with diabetic chronic kidney disease; N18.9 Chronic kidney disease, unspecified; I48.0 Paroxysmal atrial fibrillation; E78.00 Pure hypercholesterolemia, unspecified
CPT/HCPCS: 36415; 80053; 83036; 85025

== ENCOUNTER 2023-01-29 06:56 | Outpatient (REF) | payer MEDICARE, OTHER, SELFPAY ==
[2023-01-29 07:06] LABS: MANUAL DIFF FLAG NO
[2023-01-29 07:36] LABS: Basophils Percent Auto 0.5 % (0-2); Eosinophils Absolute Auto 0.1 X10*3/uL (0.0-0.4); Eosinophils Percent Auto 1.1 % (0-4); Hematocrit 40.6 % (42.0-52.0); Hemoglobin 12.6 g/dl (14.0-18.0); Imm Gran Abs Auto 0.04 X10*3/uL (0.00-0.03); Imm Gran Pct Auto 0.6 % (0.0-0.4); Lymphocytes Absolute Auto 1.4 X10*3/uL (1.2-4.9); Lymphocytes Percent Auto 20.7 % (20-40); Mean Corpuscular Hemoglobin 31.1 pg (27.0-33.0); Mean Corpuscular Volume 100.2 fL (80.0-98.0); Mean Platelet Volume 10.8 fL (9.4-12.4); Monocytes Absolute Auto 0.6 X10*3/uL (0.1-1.2); Monocytes Percent Auto 9.3 % (2-11); Neutrophils Absolute Auto 4.5 x10*3/uL (2.0-8.3); Neutrophils Percent Auto 67.8 % (45-73); Platelet Count 182 X10*3/uL (160-400); Red Blood Count 4.05 X10*6/uL (4.60-5.80); Red Cell Distribution Width 13.5 % (11.0-16.0); White Blood Count 6.7 X10*3/uL (4.8-10.8)
[2023-01-29 08:01] LABS: Alanine Aminotransferase 21 U/L (0-40); Albumin Level 3.9 g/dL (3.5-5.0); Alkaline Phosphatase 68 U/L (39-117); Anion Gap 11 (12-20); Aspartate Amino Transferase 24 U/L (5-37); Bilirubin Total 0.6 mg/dL (0.0-1.0); Blood Urea Nitrogen 16 mg/dL (9-16); Calcium 9.4 mg/dL (8.4-10.2); Carbon Dioxide 24 mmol/L (22-29); Chloride 109 mmol/L (96-108); Cholesterol 116 mg/dL (<200); Estimated Glomerular Filt Rate 56; Glucose Fasting 143 mg/dL (60-99); HDL Cholesterol 33 mg/dL (>40); LDL Cholesterol Calculated 65 mg/dL (<100); Lactate Dehydrogenase 182 U/L (118-273); Potassium 4.2 mmol/L (3.3-5.1); Sodium 140 mmol/L (135-145); Total Protein 7.4 g/dL (6.5-8.0); Triglycerides 94 mg/dL (<150)
[2023-01-29 08:36] LABS: Erythrocyte Sedimentation Rate 34 MM/HR (0-15)
== END 2023-01-29 06:57 | disposition home or self-care (01) ==
LOC: HO.LAB 06:56
PROVIDERS: PCP Internal Medicine Medical Oncology; Visit Provider Internal Medicine Medical Oncology
DX: C85.90 Non-Hodgkin lymphoma, unspecified, unspecified site (principal); E78.5 Hyperlipidemia, unspecified
CPT/HCPCS: 36415; 80053; 80061; 83615; 85025; 85652

== ENCOUNTER 2023-05-26 06:59 | Outpatient (REF) | payer MEDICARE, OTHER, SELFPAY ==
[2023-05-26 07:21] LABS: MANUAL DIFF FLAG NO
[2023-05-26 07:33] LABS: Basophils Percent Auto 0.5 % (0-2); Eosinophils Absolute Auto 0.1 X10*3/uL (0.0-0.4); Eosinophils Percent Auto 1.2 % (0-4); Hemoglobin 10.8 g/dl (14.0-18.0); Imm Gran Abs Auto 0.03 X10*3/uL (0.00-0.03); Imm Gran Pct Auto 0.7 % (0.0-0.4); Mean Corpuscular HGB Conc 31.8 g/dl (31.0-36.0); Mean Corpuscular Hemoglobin 31.2 pg (27.0-33.0); Mean Corpuscular Volume 98.3 fL (80.0-98.0); Mean Platelet Volume 10.9 fL (9.4-12.4); Monocytes Absolute Auto 0.4 X10*3/uL (0.1-1.2); Monocytes Percent Auto 8.7 % (2-11); Neutrophils Absolute Auto 2.7 x10*3/uL (2.0-8.3); Neutrophils Percent Auto 65.9 % (45-73); Platelet Count 219 X10*3/uL (160-400); Red Blood Count 3.46 X10*6/uL (4.60-5.80); Red Cell Distribution Width 13.8 % (11.0-16.0); White Blood Count 4.1 X10*3/uL (4.8-10.8)
[2023-05-26 08:01] LABS: Lactate Dehydrogenase 183 U/L (118-273)
[2023-05-26 08:03] LABS: Estimated Average Glucose 154 mg/dL
[2023-05-26 08:08] LABS: Alanine Aminotransferase 26 U/L (0-40); Albumin Level 3.7 g/dL (3.5-5.0); Alkaline Phosphatase 64 U/L (39-117); Anion Gap 11 (12-20); Aspartate Amino Transferase 28 U/L (5-37); Bilirubin Total 0.5 mg/dL (0.0-1.0); Blood Urea Nitrogen 32 mg/dL (9-16); Calcium 9.5 mg/dL (8.4-10.2); Carbon Dioxide 23 mmol/L (22-29); Chloride 108 mmol/L (96-108); Cholesterol 86 mg/dL (<200); Estimated Glomerular Filt Rate 44; Glucose Fasting 198 mg/dL (60-99); HDL Cholesterol 26 mg/dL (>40); LDL Cholesterol Calculated 46 mg/dL (<100); Potassium 4.4 mmol/L (3.3-5.1); Sodium 138 mmol/L (135-145); Total Protein 7.2 g/dL (6.5-8.0); Triglycerides 70 mg/dL (<150)
[2023-05-26 08:11] LABS: Erythrocyte Sedimentation Rate 54 MM/HR (0-15)
[2023-05-26 08:24] LABS: Prostate Specific Antigen Scr 0.55 ng/mL (<0.05-4.0)
[2023-05-26 08:41] LABS: Appearance Urine Clear; Color Urine Yellow; Glucose Urine UA Negative (Negative); Leukocyte Esterase Urine Trace (Negative); Nitrite Urine Negative (Negative); PH 6.5 (5.0-9.0); UMIC TRIGGER UA YES; Urine Blood Negative (Negative); Urine Ketones Negative (Negative); Urine Protein Negative (Neg-Trace)
[2023-05-26 08:47] LABS: Bacteria Urine None Seen (None Seen); Hyaline Casts Urine 0-2 /LPF (0-2); RBC Urine 0-2 /HPF (0-2); Squamous Epithelial Cell Urine 0-2 /HPF (0-2); WBC Urine 0-5 /HPF (0-5)
[2023-05-26 09:18] LABS: Creatinine Urine 41.97 mg/dL; Microalbum/Creatinine Ratio Ur 14.2 ug/mg cr (<30)
== END 2023-05-26 07:00 | disposition home or self-care (01) ==
LOC: HO.LAB 06:59
PROVIDERS: Internal Medicine Medical Oncology; Absent Provider Internal Medicine; PCP Internal Medicine; Visit Provider Nurse Practitioner Family
DX: Z12.5 Encounter for screening for malignant neoplasm of prostate (principal); I48.0 Paroxysmal atrial fibrillation; I73.9 Peripheral vascular disease, unspecified; E78.00 Pure hypercholesterolemia, unspecified; I12.9 Hypertensive chronic kidney disease with stage 1 through stage 4 chronic kidney disease, or unspecified chronic kidney disease; E11.22 Type 2 diabetes mellitus with diabetic chronic kidney disease; N18.9 Chronic kidney disease, unspecified
CPT/HCPCS: 36415; 80053; 80061; 81001; 82043; 82570; 83036; 83615; 84153; 85025; 85652

== ENCOUNTER 2023-07-14 07:54 | Outpatient (REF) | payer MEDICARE, OTHER, SELFPAY ==
[2023-07-14 08:24] LABS: MANUAL DIFF FLAG NO
[2023-07-14 09:21] LABS: Basophils Percent Auto 0.4 % (0-2); Eosinophils Percent Auto 0.3 % (0-4); Hematocrit 35.5 % (42.0-52.0); Hemoglobin 11.1 g/dl (14.0-18.0); Imm Gran Abs Auto 0.03 X10*3/uL (0.00-0.03); Imm Gran Pct Auto 0.4 % (0.0-0.4); Lymphocytes Absolute Auto 0.6 X10*3/uL (1.2-4.9); Lymphocytes Percent Auto 8.9 % (20-40); Mean Corpuscular HGB Conc 31.3 g/dl (31.0-36.0); Mean Corpuscular Volume 99.2 fL (80.0-98.0); Mean Platelet Volume 11.6 fL (9.4-12.4); Monocytes Absolute Auto 0.6 X10*3/uL (0.1-1.2); Monocytes Percent Auto 8.4 % (2-11); Neutrophils Absolute Auto 5.8 x10*3/uL (2.0-8.3); Neutrophils Percent Auto 81.6 % (45-73); Platelet Count 195 X10*3/uL (160-400); Red Blood Count 3.58 X10*6/uL (4.60-5.80); White Blood Count 7.1 X10*3/uL (4.8-10.8)
[2023-07-14 09:28] LABS: Estimated Average Glucose 169 mg/dL; Hemoglobin A1c % 7.5 % (<6.0)
[2023-07-14 09:56] LABS: Alanine Aminotransferase 19 U/L (0-40); Albumin Level 3.8 g/dL (3.5-5.0); Alkaline Phosphatase 58 U/L (39-117); Anion Gap 13 (12-20); Aspartate Amino Transferase 21 U/L (5-37); Bilirubin Total 0.4 mg/dL (0.0-1.0); Blood Urea Nitrogen 27 mg/dL (9-16); Calcium 9.3 mg/dL (8.4-10.2); Carbon Dioxide 23 mmol/L (22-29); Chloride 106 mmol/L (96-108); Estimated Glomerular Filt Rate 47; Glucose Random 311 mg/dL (60-115); Sodium 138 mmol/L (135-145); Total Protein 7.3 g/dL (6.5-8.0)
== END 2023-07-14 07:55 | disposition home or self-care (01) ==
LOC: HO.LAB 07:54
PROVIDERS: PCP Internal Medicine; Visit Provider Internal Medicine
DX: E11.22 Type 2 diabetes mellitus with diabetic chronic kidney disease (principal); I12.9 Hypertensive chronic kidney disease with stage 1 through stage 4 chronic kidney disease, or unspecified chronic kidney disease; N18.9 Chronic kidney disease, unspecified; D64.9 Anemia, unspecified
CPT/HCPCS: 36415; 80053; 83036; 85025

== ENCOUNTER 2023-07-28 06:51 | Outpatient (REF) | payer MEDICARE, OTHER, SELFPAY ==
[2023-07-28 08:41] LABS: Prostate Specific Antigen 0.32 ng/mL (<0.05-4.0)
== END 2023-07-28 06:52 | disposition home or self-care (01) ==
LOC: HO.LAB 06:51
PROVIDERS: PCP Internal Medicine; Visit Provider Nurse Practitioner Family
DX: N40.1 Benign prostatic hyperplasia with lower urinary tract symptoms (principal); N13.8 Other obstructive and reflux uropathy; Z12.5 Encounter for screening for malignant neoplasm of prostate
CPT/HCPCS: 36415; 84153

== ENCOUNTER 2023-07-30 14:07 | Outpatient (AMB) | payer MEDICARE, OTHER, SELFPAY ==
--- NOTE | 2023-07-30 14:30 | A.OFFVIS_ITS ---
Intake Visit Reasons: 1y/labs Intake Note: Patient is present for follow up BPH/PVR Urology Medication: finasteride, tamsulosin, terazosin Blood thinner: apixaban, aspirin PVR: 48ml's Health Consultant Required: No Accompanied by: Self / Same As Patient Allergies No Known Allergies Allergy (Verified 07/30/23 14:58) Medication List - Last Reconciled 07/30/23 by ANJEL BahenaP- amiodarone 200 mg PO BID apixaban (Eliquis) 2.5 mg PO BID atorvastatin 40 mg PO DAILY carboxymethylcellulose sodium 0.5% (Refresh Tears) drps ophthalmic (eye) cholecalciferol (vitamin D3) 125 mcg PO DAILY empagliflozin (Jardiance) mg PO fenofibrate 54 mg PO DAILY finasteride 5 mg PO DAILY fluticasone propion-salmeterol 250-50 mcg/dose (Advair Diskus) 1 ea inhalation BID furosemide 40 mg PO DAILY insulin aspart U-100 (Novolog FlexPen U-100 Insulin aspart) subcut insulin glargine (Lantus Solostar U-100 Insulin) 18 units subcut BID insulin syringe-needle U-100 (BD Insulin Syringe Ultra-Fine) As directed losartan 25 mg PO DAILY metoprolol tartrate 12.5 mg PO BID multivitamin 1 tab PO DAILY nifedipine ER 30 mg PO DAILY HPI Comments Details: Joel is a pleasant 82 year-old male patient of . He presents to the office today for follow-up regarding his benign prostatic hyperplasia, urinary retention with incomplete bladder emptying and recurrent urinary tract infections. When asked he reports to be doing well. He discusses having had recent pacemaker placement with surgical intervention for his ongoing skin cancer. 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 He follows at [facility] for this issue. In discussion regarding his urological issues and concerns patient reports to be doing extremely well on finasteride. PSAs are ad follows: PSAs: 01/12 0.6, 06/14 0.6, 08/14 0.3 He denies any bothersome urinary issues or concerns. He denies urinary frequency, urinary urgency, incontinence, hematuria, dysuria, fever, and or chills. He does report episodes of nocturia 2 times per night. He does not find this bothersome. In office urinalysis results reviewed with the patient today. PVR 48 mLs. He otherwise offers no other issues or concerns at this time. [facility] Medical History NK/T-cell lymphoma Atrial fibrillation Hyperlipidemia Diabetes mellitus HTN (hypertension) Rotator cuff tendonitis Surgical History History of surgery Physical Exam Const General: cooperative, healthy appearing, comfortable, no acute distress, well developed, alert and awake Orientation/consciousness: patient oriented x3 Limitations: no limitations HEENT Other: Scar to forehead and scalp where skin graft was utilized. Head: Yes normal to inspection Ears: hearing grossly normal bilaterally Neck Neck: Yes normal visual inspection and Yes trachea midline Chest Chest palpation & inspection: normal inspection of the chest Resp Effort & Inspection: normal respiratory effort and able to speak in complete sentences Cardio Rate: regular rate GI Inspection: Yes normal to inspection General: Yes no CVA tenderness Back/Spine/Pelvis Back: no CVA tenderness Neuro General: patient oriented x3 Extrem General: Yes normal to inspection Psych Appearance: grossly normal and well kempt Mental Status: mental status grossly normal Speech and movement: Normal speech and movement present and Clear speech present Affect: normal affect Attitude: cooperative Thought process: Normal thought process present Thought content: Normal thought content present Insight: Fair insight present (Psych) Judgement: Fair judgement present (Psych) Results AMB Urinalysis, Automated UA Leukoctes 0 Martin/uL Last Edit by Giovanny Mckeon on 07/30/23 14:56 UA Nitrite Negative Last Edit by Giovanny Mckeon on 07/30/23 14:56 UA Urobilinogen 0.2 mg/dL Last Edit by Giovanny Mckeon on 07/30/23 14:56 UA Protein 0 mg/dL Last Edit by Giovanny Mckeon on 07/30/23 14:56 UA pH 6.0 Last Edit by Giovanny Mckeon on 07/30/23 14:56 UA Blood 0 Allan/uL Last Edit by Giovanny Mckeon on 07/30/23 14:56 UA Specific [place] 1.015 Last Edit by Giovanny Mckeon on 07/30/23 14:56 UA Ketone Negative Last Edit by Giovanny Mckeon on 07/30/23 14:56 UA Bilirubin 0 mg/dL Last Edit by Giovanny Mckeon on 07/30/23 14:56 UA Glucose 0 mg/dL Last Edit by Giovanny Mckeon on 07/30/23 14:56 Results Reviewed Results Reviewed: Laboratory Last Values Urine pH (Auto) 6.0 07/30/23 14:33 Specific [place]let (Auto) 1.015 07/30/23 14:33 Urine Protein (Auto) 0 mg/dL 07/30/23 14:33 Glucose (UA)(Auto) 0 mg/dL 07/30/23 14:33 Urine Ketones (Auto) Negative 07/30/23 14:33 Urine Blood (Auto) 0 Allan/uL 07/30/23 14:33 Urine Nitrite (Auto) Negative 07/30/23 14:33 Urine Bilirubin (Auto) 0 mg/dL 07/30/23 14:33 Urine Urobilinogen (Auto) 0.2 mg/dL 07/30/23 14:33 Leukocyte Esterase (Auto) 0 Martin/uL 07/30/23 14:33 Assessment & Plan Assessment & Plan (1) BPH w urinary obs/LUTS: Code(s): N40.1 - Benign prostatic hyperplasia with lower urinary tract symptoms; N13.8 - Other obstructive and reflux uropathy Category: Medical (2) Urinary retention with incomplete bladder emptying: Code(s): R33.9 - Retention of urine, unspecified Category: Medical (3) Recurrent UTI (urinary tract infection): Code(s): N39.0 - Urinary tract infection, site not specified Category: Medical Plan In office urinalysis results reviewed with the patient today; as noted above. PVR 48 mL. Patient currently denies any bothersome urinary issues or concerns. Recent PSA results reviewed with the patient today. He is happy with current voiding parameters. Will decrease finasteride to Friday Will obtain PSA in 1 year Follow-up in 1 year with PSA to be completed prior; or sooner with any issues, concerns, and or questions. Orders: Orders AMB Urinalysis Automated Today Z13.9 - Encounter for screening, unspecified Prostate Specific Antigen 1 Year N13.8 - Other obstructive and reflux uropathy, N40.1 - Benign prostatic hyperplasia with lower urinary tract symptoms Patient Instructions: The patient had an opportunity to ask questions regarding the treatment plan. All questions were answered. Physical exam, labs, and imaging were discussed and reviewed in detail. As well as risks, benefits, and discussion of treatment choices. No major barriers to understanding were identified. The patient expressed understanding and agreement with the above treatment plan. The patient was made aware they should contact our office by phone for worsening of their current condition, the appearance of new symptoms, or with any questions or concerns. Compliance is encouraged with any medications and follow up testing that is ordered. It is a privilege to be allowed the opportunity to participate in? your urological care.? Again, if you have any questions or concerns If you have any questions or concerns please do not hesitate to contact me. The office is [phone]. This note is constructed using voice recognition software. While every effort has been made to ensure accuracy treating plant supervisor errors may have been included. Yours sincerely, OCTAIVO Bahena Coding Level of Care Code Est Pt Level 3 (37538) Diagnoses BPH w urinary obs/LUTS N40.1; N13.8 Urinary retention with incomplete bladder emptying R33.9 Recurrent UTI (urinary tract infection) N39.0
== END 2023-07-30 14:57 | disposition home or self-care (01) ==
PROVIDERS: PCP Internal Medicine Medical Oncology; Visit Provider Nurse Practitioner Family
DX: N40.1 Benign prostatic hyperplasia with lower urinary tract symptoms (principal); N13.8 Other obstructive and reflux uropathy; R33.9 Retention of urine, unspecified; N39.0 Urinary tract infection, site not specified; Z13.9 Encounter for screening, unspecified
CPT/HCPCS: 99213

== ENCOUNTER → 2023-07-30 14:07 | Outpatient (BNVA) | payer MEDICARE, OTHER, SELFPAY | PROVIDERS: PCP Internal Medicine Medical Oncology; Visit Provider Nurse Practitioner Family | DX: N40.1 Benign prostatic hyperplasia with lower urinary tract symptoms (principal); N13.8 Other obstructive and reflux uropathy; N39.0 Urinary tract infection, site not specified; R33.9 Retention of urine, unspecified | CPT/HCPCS: 81003; 99212 ==

== ENCOUNTER 2023-08-11 06:32 | Outpatient (REF) | payer MEDICARE, OTHER, SELFPAY ==
[2023-08-11 06:49] LABS: MANUAL DIFF FLAG NO
[2023-08-11 07:44] LABS: Basophils Percent Auto 0.6 % (0-2); Eosinophils Percent Auto 0.6 % (0-4); Hematocrit 34.1 % (42.0-52.0); Hemoglobin 10.9 g/dl (14.0-18.0); Imm Gran Abs Auto 0.06 X10*3/uL (0.00-0.03); Imm Gran Pct Auto 0.9 % (0.0-0.4); Mean Corpuscular Hemoglobin 31.1 pg (27.0-33.0); Mean Corpuscular Volume 97.2 fL (80.0-98.0); Monocytes Absolute Auto 0.6 X10*3/uL (0.1-1.2); Monocytes Percent Auto 9.1 % (2-11); Neutrophils Absolute Auto 5.1 x10*3/uL (2.0-8.3); Neutrophils Percent Auto 74.8 % (45-73); Platelet Count 300 X10*3/uL (160-400); Red Blood Count 3.51 X10*6/uL (4.60-5.80); Red Cell Distribution Width 14.4 % (11.0-16.0); White Blood Count 6.8 X10*3/uL (4.8-10.8)
[2023-08-11 08:15] LABS: Alanine Aminotransferase 27 U/L (0-40); Albumin Level 3.4 g/dL (3.5-5.0); Alkaline Phosphatase 73 U/L (39-117); Anion Gap 16 (12-20); Aspartate Amino Transferase 24 U/L (5-37); Bilirubin Total 0.6 mg/dL (0.0-1.0); Blood Urea Nitrogen 33 mg/dL (9-16); Calcium 9.2 mg/dL (8.4-10.2); Carbon Dioxide 24 mmol/L (22-29); Chloride 104 mmol/L (96-108); Estimated Glomerular Filt Rate 39; Glucose Random 181 mg/dL (60-115); Potassium 3.9 mmol/L (3.3-5.1); Sodium 140 mmol/L (135-145); Total Protein 7.4 g/dL (6.5-8.0)
[2023-08-16 13:24] LABS: NT-proBNP 9305 pg/mL (<450)
== END 2023-08-11 06:33 | disposition home or self-care (01) ==
LOC: HO.LAB 06:32
PROVIDERS: Absent Provider Nurse Practitioner Family; PCP Internal Medicine; Visit Provider Internal Medicine Cardiovascular Disease
DX: E78.2 Mixed hyperlipidemia (principal)
CPT/HCPCS: 36415; 80053; 83880; 85025

== ENCOUNTER 2023-09-10 06:58 | Outpatient (REF) | payer MEDICARE, OTHER, SELFPAY ==
[2023-09-10 07:18] LABS: MANUAL DIFF FLAG NO
[2023-09-10 07:49] LABS: Basophils Percent Auto 0.5 % (0-2); Eosinophils Percent Auto 0.5 % (0-4); Hemoglobin 11.7 g/dl (14.0-18.0); Imm Gran Abs Auto 0.04 X10*3/uL (0.00-0.03); Imm Gran Pct Auto 0.7 % (0.0-0.4); Lymphocytes Absolute Auto 1.1 X10*3/uL (1.2-4.9); Lymphocytes Percent Auto 19.9 % (20-40); Mean Corpuscular HGB Conc 32.5 g/dl (31.0-36.0); Mean Corpuscular Hemoglobin 30.6 pg (27.0-33.0); Mean Corpuscular Volume 94.2 fL (80.0-98.0); Mean Platelet Volume 11.1 fL (9.4-12.4); Monocytes Absolute Auto 0.5 X10*3/uL (0.1-1.2); Monocytes Percent Auto 9.7 % (2-11); Neutrophils Absolute Auto 3.8 x10*3/uL (2.0-8.3); Neutrophils Percent Auto 68.7 % (45-73); Platelet Count 198 X10*3/uL (160-400); Red Blood Count 3.82 X10*6/uL (4.60-5.80); Red Cell Distribution Width 14.6 % (11.0-16.0); White Blood Count 5.6 X10*3/uL (4.8-10.8)
[2023-09-10 08:16] LABS: Alanine Aminotransferase 42 U/L (0-40); Albumin Level 3.6 g/dL (3.5-5.0); Alkaline Phosphatase 64 U/L (39-117); Anion Gap 10 (12-20); Aspartate Amino Transferase 45 U/L (5-37); Bilirubin Total 0.4 mg/dL (0.0-1.0); Blood Urea Nitrogen 29 mg/dL (9-16); Calcium 9.6 mg/dL (8.4-10.2); Carbon Dioxide 25 mmol/L (22-29); Chloride 107 mmol/L (96-108); Estimated Glomerular Filt Rate 45; Glucose Random 136 mg/dL (60-115); Lactate Dehydrogenase 216 U/L (118-273); Sodium 138 mmol/L (135-145); Total Protein 7.7 g/dL (6.5-8.0)
[2023-09-10 08:17] LABS: Anion Gap 12 (12-20); Blood Urea Nitrogen 29 mg/dL (9-16); Calcium 9.6 mg/dL (8.4-10.2); Carbon Dioxide 25 mmol/L (22-29); Chloride 106 mmol/L (96-108); Estimated Glomerular Filt Rate 44; Glucose Random 134 mg/dL (60-115); Potassium 4.1 mmol/L (3.3-5.1); Sodium 139 mmol/L (135-145)
[2023-09-10 08:19] LABS: Erythrocyte Sedimentation Rate 53 MM/HR (0-15)
[2023-09-16 12:12] LABS: Prot Elec - Albumin 3.7 g/dL (3.8-4.8); Prot Elec - Alpha1 0.3 g/dL (0.2-0.3); Prot Elec - Alpha2 0.9 g/dL (0.5-0.9); Prot Elec - Beta 1 0.6 g/dL (0.4-0.6); Prot Elec - Beta 2 0.5 g/dL (0.2-0.5); Prot Elec - Gamma 1.5 g/dL (0.8-1.7); Prot Elec - Total Protein 7.5 g/dL (6.1-8.1)
[2023-09-16 12:39] LABS: PEU-Protein Creat Ratio Rand NOTE (0.025-0.148); PEU-Rand. Prot/Creat Ratio NOTE mg/g creat (25-148); PEU-Random Ur. Gamma Globulin 0 %; PEU-Random Urine A1 Globulin 0 %; PEU-Random Urine A2 Globulin 0 %; PEU-Random Urine Albumin 0 %; PEU-Random Urine Beta Globulin 0 %; PEU-Random Urine Creatinine 24 mg/dL (20-320); PEU-Random Urine Protein <4 mg/dL (5-25)
[2023-09-17 23:13] LABS: IgA 460 mg/dL (70-320); IgG 1272 mg/dL (600-1540); IgM 372 mg/dL (50-300)
[2023-09-19 17:53] LABS: Kappa, Serum 428 mg/dL (176-443); Kappa/Lambda Ratio, Serum 1.86 (1.29-2.55); Lambda, Serum 230 mg/dL (91-240)
== END 2023-09-10 06:59 | disposition home or self-care (01) ==
LOC: HO.LAB 06:58
PROVIDERS: Absent Provider Internal Medicine Medical Oncology; PCP Internal Medicine; Visit Provider Nurse Practitioner Family
DX: C85.90 Non-Hodgkin lymphoma, unspecified, unspecified site (principal); I42.9 Cardiomyopathy, unspecified
CPT/HCPCS: 36415; 80048; 80053; 82570; 82784; 83615; 83883; 84156; 84165; 84166; 85025; 85652; 86334

== ENCOUNTER 2024-01-05 08:21 | Outpatient (REF) | payer MEDICARE, OTHER, SELFPAY ==
[2024-01-05 08:42] LABS: MANUAL DIFF FLAG NO
[2024-01-05 08:54] LABS: Basophils Percent Auto 0.6 % (0-2); Eosinophils Percent Auto 0.6 % (0-4); Hematocrit 33.2 % (42.0-52.0); Hemoglobin 10.7 g/dl (14.0-18.0); Imm Gran Abs Auto 0.04 X10*3/uL (0.00-0.03); Imm Gran Pct Auto 0.8 % (0.0-0.4); Lymphocytes Absolute Auto 0.9 X10*3/uL (1.2-4.9); Lymphocytes Percent Auto 17.7 % (20-40); Mean Corpuscular HGB Conc 32.2 g/dl (31.0-36.0); Mean Corpuscular Hemoglobin 31.7 pg (27.0-33.0); Mean Corpuscular Volume 98.2 fL (80.0-98.0); Mean Platelet Volume 11.8 fL (9.4-12.4); Monocytes Absolute Auto 0.5 X10*3/uL (0.1-1.2); Monocytes Percent Auto 8.9 % (2-11); Neutrophils Absolute Auto 3.8 x10*3/uL (2.0-8.3); Neutrophils Percent Auto 71.4 % (45-73); Platelet Count 160 X10*3/uL (160-400); Red Blood Count 3.38 X10*6/uL (4.60-5.80); Red Cell Distribution Width 14.2 % (11.0-16.0); White Blood Count 5.3 X10*3/uL (4.8-10.8)
[2024-01-05 09:08] LABS: Estimated Average Glucose 194 mg/dL; Hemoglobin A1C 178.2633 umol/L; Hemoglobin A1c % 8.4 % (<6.0); Total Hemoglobin (HGBA1C) 2603.0257 umol/L
[2024-01-05 09:29] LABS: Alanine Aminotransferase 41 U/L (0-40); Albumin Level 3.5 g/dL (3.5-5.0); Alkaline Phosphatase 72 U/L (39-117); Anion Gap 15 (12-20); Aspartate Amino Transferase 62 U/L (5-37); Bilirubin Total 0.5 mg/dL (0.0-1.0); Blood Urea Nitrogen 32 mg/dL (9-16); Calcium 9.4 mg/dL (8.4-10.2); Carbon Dioxide 24 mmol/L (22-29); Chloride 103 mmol/L (96-108); Estimated Glomerular Filt Rate 42; Glucose Random 240 mg/dL (60-115); Iron 75 mcg/dL (45-160); Percent Iron Saturation 22 % (15-50); Sodium 138 mmol/L (135-145); Total Iron Binding Capacity 335 mcg/dL (228-428); Total Protein 7.6 g/dL (6.5-8.0); Unsaturated Iron Binding 260 ug/dL
== END 2024-01-05 08:22 | disposition home or self-care (01) ==
LOC: HO.LAB 08:21
PROVIDERS: Absent Provider Internal Medicine Cardiovascular Disease; PCP Internal Medicine; Visit Provider Internal Medicine
DX: D64.9 Anemia, unspecified (principal); I35.0 Nonrheumatic aortic (valve) stenosis; I10 Essential (primary) hypertension; E11.9 Type 2 diabetes mellitus without complications
CPT/HCPCS: 36415; 80053; 83036; 83540; 85025

== ENCOUNTER 2024-03-26 15:11 | Outpatient (REF) | payer MEDICARE, OTHER, SELFPAY ==
[2024-03-26 15:54] LABS: Basophils Percent Auto 0.3 % (0-2); Mean Corpuscular Volume 94.1 fL (80.0-98.0); Neutrophils Percent Auto 89.2 % (45-73); PLT CLUMP 1; Red Cell Distribution Width 15.5 % (11.0-16.0); SCAN SMEAR FLAG 1
[2024-03-26 15:56] LABS: Hematocrit 35.2 % (42.0-52.0); Hemoglobin 11.3 g/dl (14.0-18.0); Imm Gran Abs Auto 0.12 X10*3/uL (0.00-0.03); Imm Gran Pct Auto 1.1 % (0.0-0.4); Lymphocytes Absolute Auto 0.5 X10*3/uL (1.2-4.9); Mean Corpuscular HGB Conc 32.1 g/dl (31.0-36.0); Mean Corpuscular Hemoglobin 30.2 pg (27.0-33.0); Mean Platelet Volume 10.9 fL (9.4-12.4); Monocytes Absolute Auto 0.6 X10*3/uL (0.1-1.2); Monocytes Percent Auto 5.4 % (2-11); Red Blood Count 3.74 X10*6/uL (4.60-5.80)
[2024-03-26 15:58] LABS: MANUAL DIFF FLAG NO; Platelet Count 125 X10*3/uL (160-400); White Blood Count 11.2 X10*3/uL (4.8-10.8)
--- OUTSIDE RECORDS SUMMARY | 2024-03-26 16:24 | XMS_ITS | Continuity of Care Document ---
Author Organization [facility] ter Address [address] [place] [id number]- Care Team Providers Care Clinical Auditor Name Role Phone Donte Powell MD [id number] Date[facility]s): 03/13/24 - 03/16/[address] [address]- Encounter Diagnosis Right lower lobe pneumonia(Final) - 03/13/24 ABISAI (acute kidney injury)(Final) - 03/13/24 Discharge Disposition: A-D/C Home Attending Physician: Rylie Garvey MD Admitting Physician: Jordy Arthur MD Referring Physician: Not on Staff, Referring MD Encounter Type: Disch IP Allergies, Adverse Reactions, Alerts No Known Medication Allergies Immunizations Given and Recorded Vaccine Date Status Refusal Reason SARS-CoV-2 (COVID-19) mRNA-1273 vaccine 03/03/21 R ecorded SARS-CoV-2 (COVID-19) mRNA-1273 vaccine 05/10/20 R ecorded SARS-CoV-2 (COVID-19) mRNA-1273 vaccine 04/12/20 R ecorded influenza virus vaccine, inactivated 03/21/20 Give n influenza virus vaccine, inactivated 12/04/18 Jamar rded influenza virus vaccine, inactivated 04/18/17 Jamar rded pneumococcal 23-valent vaccine 10/19/18 Recorded pneumococcal 13-valent vaccine 10/16/16 Recorded tetanus/diphtheria/pertussis, acel(Tdap) 10/16/16 Recorded Medications Albuterol (Eqv-ProAir HFA) 90 mcg/inh inhalation aerosol 2 inhalation = 180 mcg, Inhalation, Every 6 hours, PRN as needed for shortness of breath or wheezing, # 18 Gm, 0 Refills, Maintenance, 03/16/24 12:30:00 PM EST, Aerosol, [facility] #[id number], Partial fill upon patient request if the prescription is for a schedule II opioid drug., 2 inhalation Inhalation Every 6 hours,PRN:as needed for shortness of breath or wheezing, 168, cm, 03/16/24 10:35:00 EST, Height, 79.2, kg, 03/13/24 9:36:00 EST, Dry Weight Start Date: 03/16/24 Status: Ordered Quantity: 18.0 Unit: g Repeat number: 1 amiodarone 200 mg oral tablet 200 mg, By Mouth, Daily, # 30 tablet, Refills 0, Tot. Refills 0, Maintenance, 06/07/23 12:19:00 PM EDT, Route to Pharmacy Electronically, [facility], Partial fill upon patient request ifthe prescription is for a schedule II opioid drug., 168, cm, 06/01/23 19:46:00 EDT, Height, 81.5, kg, 05/31/23 14:38:00 EST, Dry Weight Start Date: 06/07/23 Stop Date: 07/07/23 Status: Ordered Quantity: 30.0 Unit: tablet Repeat number: 1 amoxicillin-clavulanate 500 mg-125 mg oral tablet 1 tablet, By Mouth, 2 times a day, # 3 tablet, 0 Refills, Acute 03/17/24 9:00:00 PM EST, 03/16/24 12:30:00 PM EST, Tablet, [facility] #[id number], Partial fill upon patient request if the prescription is for a schedule II opioid drug., 168, cm, 03/16/24 10:35:00 EST, Height, 79.2, kg, :36:00 EST, Dry Weight Start Date: 03/16/24 Stop Date: 03/17/24 Status: Ordered Quantity: 3.0 Unit: tablet Repeat number: 1 atorvastatin 40 mg oral tablet 1 tablet = 40 mg, By Mouth, Daily, 0 Refills, Maintenance, 04/25/23 2:57:00 PM EST, Tablet, Partial fill upon patient request if the prescription is for a schedule II opioid drug. Start Date: 04/25/23 Status: Ordered Repeat number: 1 betamethasone topical dipropionate 0.05% lotion 1 application, Topically, 2 times a day, 0 Refills, Maintenance, 04/25/23 3:00:00 PM EST, Lotion, Partial fill upon patient request if the prescription is for a schedule II opioid drug. Start Date: 04/25/23 Status: Ordered Repeat number: 1 doxycycline monohydrate 100 mg oral tablet = 100 mg, By Mouth, Every 12 hours, # 3 tablet, 0 Refills, Acute 03/17/24 9:00:00 PM EST, 03/16/24 12:30:00 PM EST, Tablet, [facility] #[id number], Partial fill upon patient request if the prescription is for a schedule II opioid drug., 168, cm, 03/16/24 10:35:00 EST, Height, 79.2, kg, 03/13/24 9:36:00 EST, Dry Weight Start Date: 03/16/24 Stop Date: 03/17/24 Status: Ordered Quantity: 3.0 Unit: tablet Repeat number: 1 Eliquis 2.5 mg oral tablet 1 tablet = 2.5 mg, By Mouth, 2 times a day, 0 Refills, Maintenance, 04/25/23 2:56:00 PM EST, Tablet, Partial fill upon patient request if the prescription is for a schedule II opioid drug. Start Date: 04/25/23 Status: Ordered Repeat number: 1 fenofibrate 54 mg oral tablet 2 tablet = 108 mg, By Mouth, Daily in AM, 0 Refills, Maintenance, 10/28/19 2:09:00 PM EDT Start Date: 10/28/19 Status: Ordered Repeat number: 1 ferrous sulfate 325 mg oral enteric coated tablet 325 mg, By Mouth, Every other day, # 30 tablet, Refills 0, Tot. Refills 0, Maintenance, 03/16/24 12:30:00 PM EST, Route to Pharmacy Electronically, [facility] #[id number], Partial fill upon patient request if the prescription is for a schedule II opioid drug., 168, cm, 03/16/24 10:35:00 EST, Height, 79.2, kg, 03/13/24 9:36:00 EST, Dry Weight Start Date: 03/16/24 Status: Ordered Quantity: 30.0 Unit: tablet Repeat number: 1 finasteride 5 mg oral tablet 1 tablet = 5 mg, By Mouth, Daily at bedtime, Maintenance, 07/15/21 9:55:00 AM EDT, Tablet Start Date: 07/15/21 Status: Ordered Repeat number: 1 furosemide 40 mg oral tablet 40 mg, 1, tablet, By Mouth, Daily, # 30 tablet, Refills 0, Tot. Refills 0, Maintenance, 11/30/23 3:44:00 PM EDT, Route to Pharmacy Electronically, [facility], Partial fill upon patient request if the prescription is for a schedule II opioid drug., 168, cm, 11/30/23 11:34:00 EDT, Height,80.4, kg, 11/29/23 23:31:00 EDT, Dry Weight Start Date: 11/30/23 Stop Date: 12/30/23 Status: Ordered Quantity: 30.0 Unit: tablet Repeat number: 1 Insulin Glargine Inj = 16 units, Subcutaneous Injection, 2 times a day, take 16u twice daily while on prednisone, then resume 13u twice daily as before, 0 Refills, Maintenance, 07/18/21 9:31:00 AM EDT, Injection, Partial fill upon patient request if the prescription is for a schedule II opioid drug. Start Date: 07/18/21 Status: Ordered Repeat number: 1 LORazepam 0.5 mg oral tablet 1 tablet = 0.5 mg, By Mouth, Daily at bedtime, 0 Refills, Maintenance, 03/13/24 4:52:00 AM EST, Tablet, Partial fill upon patient request if the prescription is for a schedule II opioid drug. Start Date: 03/13/24 Status: Ordered Repeat number: 1 Metoprolol Succinate ER 25 mg oral tablet, extended release 12.5 mg, 0.5, tablet, By Mouth, 2 times a day, # 30 tablet, Refills 0, Maintenance, 03/13/24 4:53:00 AM EST, Partial fill upon patient request if the prescription is for a schedule II opioid drug. Start Date: 03/13/24 Status: Ordered Quantity: 30.0 Unit: tablet Repeat number: 1 Metoprolol Succinate ER 25 mg oral tablet, extended release 12.5 mg, XL Tablet, By Mouth, Hold for: SBP less than 110, heart rate less than 65, 03/16/24 9:00:00 AM EST Start Date: 03/16/24 Stop Date: 03/16/24 Status: Completed Repeat number: 1 NovoLOG FlexPen 100 units/mL injectable solution See Instructions, 16u sc qam 9u sc noon 11u sc before supper use 3x/day before meals, 0 Refills, Maintenance, 04/25/23 3:03:00 PM EST, Partial fill upon patient request if the prescription is for a schedule II opioid drug. Start Date: 04/25/23 Status: Ordered Repeat number: 1 Pen Howard, 30 G x 8 mm BD Ultra Fine II See Instructions, # 100 each, Refills 5, Tot. Refills 5, Maintenance, use as directed for Type 2 Diabetes Mellitus. 4x/day, 07/18/21 9:38:00 AM EDT, Supply, 168, cm, 07/18/21 5:40:00 EDT, Height, 79.8, kg, 07/16/21 15:56:00 EDT, Dry Weight Start Date: 07/18/21 Stop Date: 01/14/22 Status: Ordered Quantity: 100.0 Unit: each Repeat number: 6 predniSONE 10 mg oral tablet See Instructions, Take 4 tablet daily for 3 days, then take 3 tablet daily for 3 days, then take 2 tablet daily for 3 days, then take 1 tablet daily until finished, # 30 tablet, 0 Refills, Maintenance, 03/16/24 12:30:00 PM EST, Tablet, [facility] #[id number], Partial fill upon patient request if the prescription is for a schedule II opioid drug., 168, cm, 03/16/24 10:35:00 EST, Height, 79.2,kg, 03/13/24 9:36:00 EST, Dry Weight Start Date: 03/16/24 Status: Ordered Quantity: 30.0 Unit: tablet Repeat number: 1 Refresh - solution 1 drops, Eyes, Both, 2 times a day, PRN for dry eyes, Maintenance, 07/15/21 9:55:00 AM EDT, Solution Start Date: 07/15/21 Status: Ordered Repeat number: 1 terazosin 5 mg oral capsule 5 mg, 1, capsule, By Mouth, Daily at bedtime, # 90 capsule, Refills 0, Maintenance, 07/14/21 9:03:00AM EDT, Partial fill upon patient request if the prescription is for a schedule II opioid drug. Start Date: 07/14/21 Status: Ordered Quantity: 90.0 Unit: capsule Repeat number: 1 Vitamin B12 1000 mcg oral tablet 1 tablet = 1,000 mcg, By Mouth, Daily, # 90 tablet, 0 Refills, Maintenance, 10/17/23 1:50:00 PM EDT,Tablet, Partial fill upon patient request if the prescription is for a schedule II opioid drug. Start Date: 10/17/23 Status: Ordered Quantity: 90.0 Unit: tablet Repeat number: 1 Wixela Inhub 250 mcg-50 mcg inhalation powder 1 inhalation, Inhalation, 2 times a day, rinse mouth and throat after use, 0 Refills, Maintenance, 03/13/24 4:53:00 AM EST, Powder, Partial fill upon patient request if the prescription is for a schedule II opioid drug. Start Date: 03/13/24 Status: Ordered Repeat number: 1 Problem List Condition Confirmation Course Effective Dates Status H ealth Status Informant History of Anemia Confirmed Active Atheromatous plaque Confirmed Active Atrial fibrillation Confirmed Active Benign prostatic hyperplasia Confirmed Active Pacemaker Confirmed Active Bilateral Cataract with lense implants Confirmed Active Diabetes mellitus type 2 Confirmed Active Essential hypertension Confirmed Active Ex-smoker Confirmed Active Gastroesophageal reflux disease Confirmed Active Hyperlipidemia Confirmed Active Malignant T cell lymphoma, received tadiation, chemo and Stem cell transplant Confirmed 2008 Active Osteoarthritis in hands Confirmed Active Peripheral vascular disease Confirmed Active Results Radiology Reports * Exam Date Time Procedure Performing Provider Status 03/13/24 1:00 AM Chest 2 Views Frontal and Lat Dominique Jimenez; Candida (Verified) Notes: (Chest 2 Views Frontal and Lat) Reason For Exam: SOB;Cough RESULT: Chest 2 Views Frontal and Lat Chest 2 Views Frontal and Lat Refer to EMR; Hx of Present Illness: From home, reports cough x1 week, initially productive now nonproductive, otc meds not helping, worsening sob when laying flat. per ems pt on 92% RA, no O2 baseline. Recent pacemaker valve replacement done; Reason: Cough; SOB; Clinical Question(s): Pneumonia; Special Instructions: This is a protocol film and radiologist should call any findings to the Charge COMPARISON: 11/30/2023. FINDINGS: LINES AND TUBES: Again demonstrated is a dual lead intracardiac pacemaker. LUNGS AND PLEURA: There is mild pulmonary vascular congestion. No pleural effusion. No pneumothorax. HEART, MEDIASTINUM AND HAVEN: The cardiac silhouette is enlarged. Normal mediastinal and hilar contour. BONES AND SOFT TISSUES: No acute abnormality. IMPRESSION: Enlarged cardiac silhouette with mild pulmonary vascular congestion. WSN: [id number] Ordering Physician: Andrew Quiroz Dictated By: Mercy Rothman MD Dictated Date/Time: 03/13/24 6:12 am Reviewed By: Mercy Rothman MD Signed By: Mercy Rothman MD Signed Date/Time: 03/13/24 6:12 am Transcribed By: ANN Transcribed Date/Time: 03/13/24 6:11 am Vital Signs Most recent to oldest [Reference Range]: 1 2 3 Height 168 cm (03/16/24 10:35 AM) 168 cm (03/16/24 5:50 AM) 168 cm (03/15/24 10:07 PM) Weight 77.7 kg (03/16/24 5:50 AM) 78.2 kg (03/14/24 6:06 AM) 79.2 kg (03/13/24 9:36 AM) Oxygen Saturation [94-100 %] 95 % (03/16/24 10:35 AM) 94 % (03/16/24 5:50 AM) 94 % (03/15/24 10:07 PM) Pulse Rate [55-90 bpm] 83 bpm (03/16/24 10:35 AM) 95 bpm *H* (03/16/24 9:34 AM) 71 bpm (03/16/24 5:50 AM) Body Mass Index [18.5-24.99 kg/m2] 27.53 kg/m2 *H* (03/16/24 5:50 AM) 27.71 kg/m2 *H* (03/14/24 6:06 AM) 28.06 kg/m2 *H* (03/13/24 9:36 AM) Blood Pressure [90-138/55-84 mm Hg] 136/51mm Hg (03/16/24 10:35 AM) 115/55mm Hg (03/16/24 9:34 AM) 126/55mm Hg (03/16/24 5:50 AM) Respiratory Rate [16-30 br/min] 18 br/min (03/16/24 10:35 AM) 18 br/min (03/16/24 5:50 AM) 18 br/min (03/15/24 10:07 PM) Temperature [96.8-100.4 DegF] 97.5 DegF (03/16/24 10:35 AM) 97.8 DegF (03/16/24 5:50 AM) 98.1 DegF (03/15/24 10:07 PM) Liters per Minute 2 L/min (03/15/24 8:00 AM) 2 L/min (03/14/24 9:00 PM) 2 L/min (03/14/24 6:11 PM) Mode of Delivery (Oxygen) Room air (03/16/24 10:35 AM) Room air (03/16/24 5:50 AM) Room air (03/15/24 10:07 PM) Blood pressure sites Arm, right (03/16/24 10:35 AM) Arm, right (03/16/24 5:50 AM) Arm, right (03/15/24 10:07 PM) Temperature Route Oral (03/16/24 10:35 AM) Oral (03/16/24 5:50 AM) Oral (03/15/24 10:07 PM) Dry Weight 79.2 kg (03/13/24 9:36 AM) 79.2 kg (03/13/24 8:22 AM) 79 kg (03/13/24 1:21 AM) Weight Obtained Via Standing scale (03/16/24 5:50 AM) Standing scale (03/13/24 9:36 AM) Standing scale (03/13/24 8:22 AM) Dry Weight Obtained Via Standing scale (03/13/24 8:22 AM) Social History Social History Type Response Smoking Status Former smoker; Tobac co user in household: No entered on: 09/19/15 Sex Sex Representation Male (finding) Implantable Device List Procedure Provider Procedure Date Device Type Site Skin Graft Full Thickness Face Bruno Medina MD 11/14/21 Unknown Nose Device Identifier Serial Number Lot or Batch Number Manufacturing Date Expiration Date Distinct Identification Code MRI Safety Implantable Status Assigning Authority Unknown [id number] Unknown 06/17/26 Unknown Unknown Active Unknown Admission evaluation note * Noelle PALACIO, Sydney Bourgeois: MODIFY, MODIFY, PERFORM Event Display: Admission Note Authored Date: Patient: ??TONY CASTELLON ? Age:??83 Years?Sex:??Male?:??1940?? Chief Complaint/Reason for Consultation From home, reports cough x1 week, initially productive now non productive, otc meds not helping, worsening sob when laying flat. per ems pt on 92% RA, no O2 baseline. 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 ?? Patient reported that since last Friday??he started having productive cough - brownish, fever, chills.?Now fever, chills improved and he currently has a constant dry cough as well as dyspnea especially upon exertion.?He lives alone, no sick contact??recently.?? He has been compliant with his me dication.?He is also feeling more short of breath??decided to come to the hospital.?He does not require oxygen at home,??compliant with??nebulizers.? Denies smoking or illicit drug use ?? BP 120/47, on room air saturating 94, afebrile, heart rate 85 WBC 6.7 Hemoglobin 10 (at baseline) Platelet count 227 Glucose 178 BUN 50 Creatinine 2.05 (baseline 1.4-1.6) Lactate 1.5 COVID-negative Chest x-ray shows opacities on the right lower lung Echocardiogram on 11/30/2023 with LVEF 25 to 30% EKG shows atrial paced rhythm with prolonged AV conduction, LBBB, no acute changes Patient received normal saline 500 mL, ceftriaxone 1 g in ED Review of Systems None except as above Objective Vital Signs?? Temperature: 97.5 DegF (03/12/24 23:33:00) Temperature Route: Oral (03/12/24 23:33:00) Pulse Rate: 85 bpm (03/13/24 02:56:00) Respiratory Rate: 18 br/min (03/13/24 02:56:00) Systolic Blood Pressure: 112 mm Hg (03/13/24 02:56:00) Diastolic Blood Pressure:??39 mm Hg??Low (03/13/24 02:56:00) Blood pressure sites: Arm, right (03/13/24 02:56:00) Mean Arterial Pressure: 71 mm Hg (03/13/24 01:21:00) Pulse Pressure: 73 mm Hg (03/13/24 02:56:00) Oxygen Saturation: 94 % (03/13/24 02:56:00) Mode of Delivery (Oxygen): Room air (03/13/24 02:56:00) Early Warning Score: 4 (03/13/24 02:56:30) ?? Physical Exam Gen-elderly male,??not in acute distress,??sitting upright, speaking in full sentences. HEENT- Normocephalic, Atraumatic, No pallor, icterus Neck-supple, no significant JVD?? Heart-S1S2(+),??regular, no murmurs. lungs-bilateral lungs with good air entry,??expiratory wheezing more pertinent bibasilar lung santana?? Abdomen-soft, nontender,??distended,??bowel sounds present, No guarding. Extremities-pulses palpable. No pedal edema. No calf tenderness. Neurological- AAO??3. No gross focal neurological deficits noted. Psychiatric-patient???s mood is stable. Assessment/Plan Diagnoses ABISAI (acute kidney injury) ??(N17.9) Anemia, normocytic normochromic ??(D64.9) Atrial fibrillation ??(I48.91) BPH (benign prostatic hyperplasia) ??(N40.0) COPD exacerbation ??(J44.1) Cardiomyopathy, nonischemic ??(I42.8) Chronic HFrEF (heart failure with reduced ejection fraction) ??(I50.22) Right lower lobe pneumonia ??(J18.9) S/P TAVR (transcatheter aortic valve replacement) ??(Z95.2) T2DM (type 2 diabetes mellitus) ??(E11.9) ?? 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 ?? Anemia, normocytic normochromic (D64.9):??Chronic, Hb??better than baseline No signs of bleeding Outpatient follow up? T2DM (type 2 diabetes mellitus) (E11.9):??Continue with??Insulin glargine 13 units twice daily Hold standing lispro we will start with sliding scale Diabetic diet POC glucose TID w meals? BPH (benign prostatic hyperplasia) (N40.0):??Bladder scan daily to rule out retention Continue terazosin Continue with finasteride ?? Chronic HFrEF (heart failure with reduced ejection fraction) (I50.22) ?Associated with??S/P TAVR (transcatheter aortic valve replacement) (Z95.2),??Cardiomyopathy, nonischemic (I42.8) ? Patient with history of nonischemic cardiomyopathy??which??recent LVEF 20 to 25%.?Chest x-ray with mild vascular congestion and pt??has some B-lines on POCUS,??IVC is not dilated??and has good respiratory excursion.?Pt received 500cc IVF in ED. He does not have peripheral edema or JVD.??Patient denies chest pain,??EKG shows atrial paced rhythm with prolonged AV conduction, LBBB ?? Plan: Added on BNP?? Continue with metoprolol succinate 12.5 mg twice daily Continue with atorvastatin Continue with fenofibrate Continue furosemide 40mg BID Strict Intake and Output?? Hold??jardiance??due to ABISAI Telemetry monitoring? Atrial fibrillation (I48.91):??History of A-fib, s/p PPM,??atrial paced rhythm Continue with apixaban 2.5 mg??twice daily Continue with amiodarone 200 mg daily ?? ABISAI (acute kidney injury) (N17.9):??Patient presented with creatinine 2.05,??baseline creatinine 1.4-1.6 POCUS with??normal IVC,??patient does not look significantly volume??overloaded but will need continues of diuresis given HFrEF and mild vascular congestion and B lines on POCUS.? Plan: s/p 500cc IVF in ED will send urine lytes Strict intake and output every 4 hours Bladder scan to rule out retention Avoid nephrotoxic drugs Will trend crcl, electrolytes, encouraged oral intake ?? Right lower lobe pneumonia (J18.9) ?Associated with??COPD exacerbation (J44.1) ? Patient presented with??initially productive cough now having constant dry cough. .??On my exam O2 saturation as??low as 89%,??started with 2 L nasal cannula.?WBC 6.7, afebrile,??chest x-ray??shows??right lobe consolidation??possible pneumonia.??Patient also has an expiratory wheezing c onsistent with COPD exacerbation. ?? Plan Started with DuoNebs every 6 hours Wixela??not??available in house, will switch??to Breo Ellipta Solu-Medrol 40 mg twice daily Continue with ceftriaxone Started with doxycycline 100 mg twice daily Urine strep and Legionella Added on procalcitonin Supplemental oxygen as needed Will send extended respiratory panel ?? VTE Prophylaxis:??On apixaban ?VTE Prophylaxis Assessment:??VTE Prophylaxis Ordered ?? Discharge Planning:??Pending clinical course ?? Ongoing Medical Necessity:??Pneumonia, COPD exacerbation, ABISAI ?? Code Status:??DNR/DNI confirmed ?Order Code Status:??Code Status Ordered ?? Pt is seen on 03/13 ?? I spent a total of??80 ??minutes in patient care that includes??reviewing the chart and medical records, speaking with the patient, examining the patient, interpreting labs/imaging/ekg, formulating and discussing the treatment plan, counseling the patient, placing orders, communicating with??consultants and nurses??and documenting the encounter. ?? Please note that I have used [employer] system to??transcribe??this note and it may contain unintentional errors. Please feel free to contact me for any clarification. ? Estimated Discharge Date ? Histories Allergies Allergies ?(Active and Proposed Allergies Only) warfarin? (Severity: Unknown severity, Onset: Unknown) Belle Oil? (Severity: Unknown severity, Onset: Unknown) shellfish? (Severity: Unknown severity, Onset: Unknown) ?Reactions: lips swelling ? 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 Past Surgical History Left femoral popliteal bypass: 01/07/13 ? Social History Alcohol Details:??Use: Past. ??Frequency: Several times per day. ??Type: Beer, Liquor. Substance Abuse Details:??Use: Never. Tobacco Details:??Former smoker, Other: quit smoking 7 years ago. ??Type: Cigarettes, Cigars. Details:??Former smoker, Tobacco user in household: No. ? Family History No Family History documented. ? Medications Home Medications amiODARONE (amiodarone 200 mg oral tablet)?200?Milligram?By Mouth?2 times a day?for 30?Days?Daily apixaban (Eliquis 2.5 mg oral tablet)?1?tab(s)?2.5?Milligram?By Mouth?2 times a day Atorvastatin (atorvastatin 40 mg oral tablet)?1?tab(s)?40?Milligram?By Mouth?Daily Betamethasone Topical (betamethasone topical dipropionate 0.05% lotion)?1?sunitha?Topically?2 times a day Cyanocobalamin (Vitamin B12 1000 mcg oral tablet)?1?tab(s)?1,000?Microgram?By Mouth?Daily Durable Medical Equipment (Pen Howard, 30 G x 8 mm BD Ultra Fine II)?See Instructions?for 30?Days?use as directed for Type 2 Diabetes Mellitus. 4x/day empagliflozin (Jardiance 25 mg oral tablet)?1?tab(s)?25?Milligram?By Mouth?Daily in AM Fenofibrate (fenofibrate 54 mg oral tablet)?1?tab(s)?54?Milligram?By Mouth?Daily?2?108?Daily in AM Finasteride (finasteride 5 mg oral tablet)?1?tab(s)?5?Milligram?By Mouth?Daily?Daily at supper Fluticasone-Salmeterol (Wixela Inhub 250 mcg-50 mcg inhalation powder)?1?inhalation?Inhalation?2 times a day?rinse mouth and throat after use Furosemide (furosemide 40 mg oral tablet)?40?Milligram?1?tablet?By Mouth?2 times a day?for 30?Days Insulin Aspart (NovoLOG FlexPen 100 units/mL injectable solution)?See Instructions?use 3x/daybefore meals Insulin Glargine (Insulin Glargine Inj)?18?unit(s)?Subcutaneous Injection?2 times a day?10 Lorazepam (LORazepam 0.5 mg oral tablet)?1?tab(s)?0.5?Milligram?By Mouth?Daily atbedtime Metoprolol (Metoprolol Succinate ER 25 mg oral tablet, extended release)?12.5?Milligram?0.5?tablet?By Mouth?2 times a day Miscellaneous Rx (CBC,BMP in 1 week)?See Instructions?Please send results to Dr. Babak Rodriguez,thanks Ocular Lubricant (Refresh - solution)?1?Drops?Eyes, Both?2 times a day?as needed?for dry eyes Terazosin (terazosin 5 mg oral capsule)?5?Milligram?1?capsule?By Mouth?Daily at bedtime ? Inpatient Medications Medications (28) Active SCHEDULED: (16) Albuterol/Ipratropium Inhalation Ghada 3mL (Duoneb Inhalation Solution) ??1 vials, BAND Nebulizer, 4 times a day Amiodarone 200 mg Tablet (amiodarone 200 mg oral tablet) ??200 mg, By Mouth, Daily Apixaban 2.5 mg Tablet (Eliquis) ??2.5 mg, By Mouth, 2 times a day Atorvastatin 40 mg Tablet (atorvastatin 40 mg oral tablet) ??40 mg, By Mouth, Daily Breo Ellipta 200 mcg / 25 mcg Inhaler (Breo Ellipta 200 mcg-25 mcg Inhaler) ??1 puffs, Inhalation, Daily Ceftriaxone 1 Gm Inj (Ceftriaxone IVPB) ??1 Gm, IVPB, Every 24 hours Doxycycline 100 mg Inj (Doxycycline IVPB) ??100 mg, IVPB, Every 12 hours Fenofibrate 130 mg Capsule (fenofibrate 130 mg oral capsule) ??130 mg, By Mouth, Daily Finasteride 5 mg Tablet (finasteride 5 mg oral tablet) ??5 mg, By Mouth, Daily at bedtime Insulin Glargine 100 units/mL Inj (Insulin Glargine Inj) ??13 units 0.13 mL, Subcutaneous Injection, 2 times a day Insulin Lispro 100 units/mL Inj (Insulin LISPRO Sliding Scale) ??2-10 units, Subcutaneous Injection, 3 times a day before meals MethylPREDNISolone Sodium Succinate 40 mg Inj (SoluMedrol Inj) ??40 mg, IV Push Slowly, Every 12 hours Metoprolol 25 mg XL Tablet (Metoprolol Succinate ER 25 mg oral tablet, extended release) ??12.5 mg,By Mouth, 2 times a day NaCl 0.9% Flush 3ml (NaCL 0.9% Flush) ??3 mL, IV Push, Every 8 hours Terazosin 5 mg Capsule (terazosin 5 mg oral capsule) ??5 mg, By Mouth, Daily at bedtime Vitamin B-12 ??1000 mcg Tablet (Vitamin B12 1000 mcg oral tablet) ??1,000 mcg, By Mouth, Daily CONTINUOUS: (0) PRN: (12) Acetaminophen 325 mg Tablet (Acetaminophen Tablet) ??650 mg, By Mouth, Every 4 hours Dextrose Inj Syringe (Dextrose 50% Inj Syringe (25Gm)) ??12.5 Gm, IV Push Slowly, Every 20 minutes Dextrose Inj Syringe (Dextrose 50% Inj Syringe (25Gm)) ??25 Gm, IV Push Slowly, Every 15 minutes Docusate Sodium 100 mg Capsule (Docusate Sodium Capsule) ??100 mg 1 capsule, By Mouth, 2 times a day Glucagon 1 mg Inj (Glucagon Inj) ??1 mg, Intramuscular, Once Glucose 40% Gel (15 Gm) (Glucose Gel) ??15 Gm, By Mouth, Every 20 minutes Glucose 40% Gel (15 Gm) (Glucose Gel) ??30 Gm, By Mouth, Every 20 minutes Melatonin 3 mg Tablet (Melatonin Tablet) ??3 mg, By Mouth, Daily at bedtime NaCl 0.9% Flush 3ml (NaCL 0.9% Flush) ??3 mL, IV Push, Every 8 hours Polyethylene Glycol 17 Gm Powder (MiraLax Powder) ??17 Gm 1 pack/packet, By Mouth, Daily Senna Tablet ??8.6 mg 1 tablet, By Mouth, 2 times a day Simethicone 80 mg Chewable Tablet (Simethicone Tablet) ??80 mg, Chew, 3 times a day ? Results Recent Labs BLOOD COUNT & DIFF WBC 6.7 k/mm3 ()?? 03/12/2024 23:51 RBC 3.22 m/mm3 (Low)?? 03/12/2024 23:51 Hgb 10.0 Gm/dL (Low)?? 03/12/2024 23:51 Hct 31.2 % (Low)?? 03/12/2024 23:51 MCV 96.9 femtoliters (High)?? 03/12/2024 23:51 MCH 31.1 pg ()?? 03/12/2024 23:51 MCHC 32.1 Gm/dL (Low)?? 03/12/2024 23:51 Platelet Count 227 k/mm3 ()?? 03/12/2024 23:51 RDW-SD 53.2 femtoliters (High)?? 03/12/2024 23:51 MPV 11.2 femtoliters ()?? 03/12/2024 23:51 Nucleated RBC (Automated) 0.0 #/100 WBC'S ()?? 03/12/2024 23:51 Abs. NRBC 0.0 k/mm3 ()?? 03/12/2024 23:51 Abs. Neut 4.5 k/mm3 ()?? 03/12/2024 23:51 Abs. Lymph 1.3 k/mm3 ()?? 03/12/2024 23:51 Abs. [place] 0.8 k/mm3 ()?? 03/12/2024 23:51 Abs. Eo 0.1 k/mm3 ()?? 03/12/2024 23:51 Abs. Baso 0.0 k/mm3 ()?? 03/12/2024 23:51 Neut % 67.2 % ()?? 03/12/2024 23:51 Lymph % 19.1 % ()?? 03/12/2024 23:51 Denton % 11.7 % (High)?? 03/12/2024 23:51 Eos % 0.8 % ()?? 03/12/2024 23:51 Baso % 0.3 % ()?? 03/12/2024 23:51 Imm Gran 0.9 % ()?? 03/12/2024 23:51 Abs. Imm Gran 0.1 k/mm3 ()?? 03/12/2024 23:51 ?? CHEM GENERAL Sodium 136 mmol/L ()?? 03/12/2024 23:51 Potassium 4.3 mmol/L ()?? 03/12/2024 23:51 Chloride 100 mmol/L ()?? 03/12/2024 23:51 Bicarbonate Level 23 mmol/L ()?? 03/12/2024 23:51 Anion Gap 13 ()?? 03/12/2024 23:51 Glucose Level 178 mg/dL (High)?? 03/12/2024 23:51 BUN 50 mg/dL (High)?? 03/12/2024 23:51 Creatinine-Blood 2.05 mg/dL (High)?? 03/12/2024 23:51 Estimated GFR Creatinine 32 ML/MIN/1.73 M2 ()?? 03/12/2024 23:51 Calcium 8.7 mg/dL ()?? 03/12/2024 23:51 Lactate 1.5 mmol/L ()?? 03/12/2024 23:51 ?? MISC. CHEMISTRY Procalcitonin 0.12 ng/mL ()?? 03/12/2024 23:51 ?? URINE OTHER Est Creatinine Clearance 25.20 mL/min ()?? 03/13/2024 00:29 ?? VIROLOGY Influenza A PCR NEGATIVE ()?? 03/12/2024 23:51 Influenza B PCR NEGATIVE ()?? 03/12/2024 23:51 RSV PCR NEGATIVE ()?? 03/12/2024 23:51 COVID-19 PCR Result NEGATIVE ()?? 03/12/2024 23:51 ? Abnormal Labs ?? BLOOD COUNT & DIFF Abs. Imm Gran?0.1 k/mm3 ()?03/12/2024 23:51 Abs. NRBC?0.0 k/mm3 ()?03/12/2024 23:51 Hct?31.2 % (Low)?03/12/2024 23:51 Hgb?10.0 Gm/dL (Low)?03/12/2024 23:51 Imm Gran?0.9 % ()?03/12/2024 23:51 MCHC?32.1 Gm/dL (Low)?03/12/2024 23:51 MCV?96.9 femtoliters (High)?03/12/2024:51 Denton %?11.7 % (High)?03/12/2024 23:51 Nucleated RBC (Automated)?0.0 #/100 WBC'S ()?03/12/2024:51 RBC?3.22 m/mm3 (Low)?03/12/2024 23:51 RDW-SD?53.2 femtoliters (High)?03/12/2024 23:51 ?? CHEM GENERAL BUN?50 mg/dL (High)?03/12/2024 23:51 Creatinine-Blood?2.05 mg/dL (High)?03/12/2024 23:51 Estimated GFR Creatinine?32 ML/MIN/1.73 M2 ()?03/12/2024 23:51 Glucose Level?178 mg/dL (High)?03/12/2024 23:51 ?? MISC. CHEMISTRY Procalcitonin?0.12 ng/mL ()?03/12/2024 23:51 ?? VIROLOGY COVID-19 PCR Result?NEGATIVE ()?03/12/2024 23:51 COVID-19 PCR Specimen Source?[facility] () ?03/12/2024 23:51 Influenza A PCR?NEGATIVE ()?03/12/2024 23:51 Influenza B PCR?NEGATIVE ()?03/12/2024 23:51 RSV PCR?NEGATIVE ()?03/12/2024 23:51 ?? Note: Critical results are displayed in red. ? Urinalysis Est Creatinine Clearance: 25.2 mL/min (00:29) ?? Blood Gases?? No qualifying data available. ? EKG study * Event Display: ECG 12-Lead Authored Date: Please click on pdf link to open report * Event Display: ECG 12-Lead Authored Date: Ventricular Rate: 77 BPM Atrial Rate: 77 BPM P-R Interval: 298 ms QRS Duration: 178 ms Q-T Interval: 484 ms QTC Calculation(Bazett): 547 ms P Surrency: 189 degrees R Surrency: -53 degrees T Surrency: 109 degrees Atrial-paced rhythm with prolonged AV conduction Left axis deviation Left bundle branch block Baseline artifact Abnormal ECG When compared with ECG of 29-Nov-2023 16:38, No significant change was found Confirmed by Adiel Mackenzie ([id number]) on 03/14/2024 12:57:33 AM [place] * Lula Price RN: PERFORM, SIGN, VERIFY Event Display: [facility] Authored Date: [id number] Patient: TONY CASTELLON Age: 83 years Sex: Male : 1940 Associated Diagnoses: None Author: Lula Price RN Findings Evaluation PT a&ox4. Ind ambulating.able to understnad dischage instructions and new medications. no concerns with leaving. . Discharge Information Case Management Discharge Plan : Case Management Discharge Plan Data 03/16/2024 14:51 EST Discharge Level of Care at Discharge Home/Retirement/Foster Care * Nadira Obando RN: PERFORM, SIGN, VERIFY Event Display: Progress Note Hospital Authored Date: Patient: TONY CASTELLON Age: 83 years Sex: Male : 1940 Associated Diagnoses: None Author: Nadira Obando RN Findings Problem Related to Alteration in Respiratory Function (new) : Alteration in Respiratory Function/new 03/16/2024 1:00 EST Alteration in Resp Status Related to Pneumonia Goals & Outcomes, Respiratory Pt will maintain/resume baseline physical assessment, Pt will maintain adequate nutritional intake, Pt will maintain/resume normal fluid/electrolyte balance, Pt willnot develop complications r/t immobility, Pt will demonstrate proper technique w/self care procedures Interventions, Respiratory Assess/monitor tolerance to IV infusions; verify rate/dose, Assess for and report S&S of respiratory distress, Position for comfort & optimal oxygenation, Initiate pulmonary rehab nurse consult, Teach/encourage use of incentive spirometer, Teach purse lip breathing as needed for breathing retraining, Teach tripod positioning to promote air exchange BH Goals/Interventions, Respiratory Yes Respiratory, Problem Start 03/13/2024 9:40 Reviewed Plan with, Respiratory Patient Patient Progression, Respiratory Patient progressing according to plan . Evaluation Pt A&O x4, room air, denies N/V, dizziness, SOB or any pain. Pt asked for tums and melatonin overnight. Pt also got extra 6 units of lispro because glucose came back 400. Pt was medicated per MAY. Safety measures in place. * Edward Frances MD, Patti: PERFORM Event Display: Progress Note Hospital Authored Date: Patient: ??TONY CASTELLON ? Age:??83 Years?Sex:??Male?:??1940?? Subjective Patient met at bedside. ??No acute events. ?? Patient reports??continued cough, productive??and??mild shortness of breath on exertion.?? He denies any other concerns,??reports good appetite.?? Last BM this morning. Pulm rehab evaluated, no home O2 requirement. ?? Review of Systems ROS negative unless otherwise noted above. Objective Measurements?? Height: 168 cm (03/14/24) Weight: 78.2 kg (03/14/24) Dry Weight: 79.2 kg (03/13/24) Body Mass Index:??27.71 kg/m2??High (03/14/24) ? Vital Signs?? Temperature: 97.7 DegF (03/15/24 08:00:00) Temperature Route: Oral (03/15/24 08:00:00) Pulse Rate: 67 bpm (03/15/24 09:23:00) Respiratory Rate: 18 br/min (03/15/24 08:00:00) Systolic Blood Pressure: 134 mm Hg (03/15/24 09:23:00) Diastolic Blood Pressure: 56 mm Hg (03/15/24 09:23:00) Blood pressure sites: Arm, left (03/15/24 08:00:00) Mean Arterial Pressure: 76 mm Hg (03/14/24 18:11:00) Pulse Pressure: 60 mm Hg (03/14/24 18:11:00) Oxygen Saturation: 99 % (03/15/24 08:00:00) Liters per Minute: 2 L/min (03/15/24 08:00:00) Mode of Delivery (Oxygen): Nasal cannula (03/15/24 08:00:00) Early Warning Score: 3 (03/15/24 12:12:29) ? Ventilator Settings?? No qualifying data available. ?? Intake/Output? 03/13 02:38 03/15 07:00 03/14 07:00 03/13 07:00 03/12 07:00 ?? 03/15 13:24 03/15 13:24 03/15 06:59 03/14 06:59 03/13 06:59 Intake ? 2036 ?236 ? 1200 ?600 ?0 Output ?0 ?0 ?0 ?0 ?0 Net Total ? 2036 ?236 ? 1200 ?600 ?0 ? Urine Count ?7 ?1 ?4 ?2 ?0 ? Physical Exam General:??No acute distress HEENT:??Moist mucus membranes, PERRL, no nystagmus, no scleral icterus Respiratory:??Mild expiratory wheezing bilaterally, coarse rhonchi; no??increased work of breathing, no crackles Cardiovascular:??Normal rate, regular rhythm, no murmurs, peripheral pulses intact Abdomen:??Normal active bowel sounds, soft, mildly distended Musculoskeletal:??No LE edema, moving all extremities normally Neurologic:??Alert & Oriented Skin:??Warm and dry, No rashes or lesions _ Inpatient Medications Medications (34) Active SCHEDULED: (19) Albuterol/Ipratropium Inhalation Ghada 3mL (Duoneb Inhalation Solution) ??1 vials, BAND Nebulizer, 4 times a day Amiodarone 200 mg Tablet (amiodarone 200 mg oral tablet) ??200 mg, By Mouth, Daily Apixaban 2.5 mg Tablet (Eliquis) ??2.5 mg, By Mouth, 2 times a day Atorvastatin 40 mg Tablet (atorvastatin 40 mg oral tablet) ??40 mg, By Mouth, Daily Breo Ellipta 200 mcg / 25 mcg Inhaler (Breo Ellipta 200 mcg-25 mcg Inhaler) ??1 puffs, Inhalation, Daily Ceftriaxone 1 Gm Inj (Ceftriaxone IVPB) ??1 Gm, IVPB, Every 24 hours Dextromethorphan-Guaifenesin 20 mg-200 mg/10 mL Liqu UD (GuaiFENEsin /Dextromethorphan Liquid) ??10mL, By Mouth, 4 times a day Doxycycline 100 mg Tablet (Doxycycline Tablet) ??100 mg, By Mouth, Every 12 hours Fenofibrate 130 mg Capsule (fenofibrate 130 mg oral capsule) ??130 mg, By Mouth, Daily Ferrous Sulfate 325 mg EC Tablet (ferrous sulfate 325 mg oral enteric coated tablet) ??325 mg, By Mouth, Every other day Finasteride 5 mg Tablet (finasteride 5 mg oral tablet) ??5 mg, By Mouth, Daily at bedtime Insulin Glargine 100 units/mL Inj (Insulin Glargine Inj) ??16 units 0.16 mL, Subcutaneous Injection, 2 times a day Insulin Glargine 100 units/mL Inj (Lantus Inj) ??3 units 0.03 mL, Subcutaneous Injection, Once Insulin Lispro 100 units/mL Inj (Insulin LISPRO Sliding Scale) ??2-10 units, Subcutaneous Injection, 3 times a day before meals Metoprolol 25 mg XL Tablet (Metoprolol Succinate ER 25 mg oral tablet, extended release) ??12.5 mg,By Mouth, 2 times a day NaCl 0.9% Flush 3ml (NaCL 0.9% Flush) ??3 mL, IV Push, Every 8 hours PredniSONE 50 mg Tablet (predniSONE 50 mg oral tablet) ??50 mg, By Mouth, Daily Terazosin 5 mg Capsule (terazosin 5 mg oral capsule) ??5 mg, By Mouth, Daily at bedtime Vitamin B-12 ??1000 mcg Tablet (Vitamin B12 1000 mcg oral tablet) ??1,000 mcg, By Mouth, Daily CONTINUOUS: (1) Lactated Ringers (500 mL) Cont IV 500 mL (LR Bolus 500 mL) ??500 mL, IV Infusion PRN: (14) Acetaminophen 325 mg Tablet (Acetaminophen Tablet) ??650 mg, By Mouth, Every 4 hours Albuterol/Ipratropium Inhalation Ghada 3mL (Duoneb Inhalation Solution) ??1 vials, BAND Nebulizer, 4 times a day Dextrose Inj Syringe (Dextrose 50% Inj Syringe (25Gm)) ??12.5 Gm, IV Push Slowly, Every 20 minutes Dextrose Inj Syringe (Dextrose 50% Inj Syringe (25Gm)) ??25 Gm, IV Push Slowly, Every 15 minutes Docusate Sodium 100 mg Capsule (Docusate Sodium Capsule) ??100 mg 1 capsule, By Mouth, 2 times a day Glucagon 1 mg Inj (Glucagon Inj) ??1 mg, Intramuscular, Once Glucose 40% Gel (15 Gm) (Glucose Gel) ??15 Gm, By Mouth, Every 20 minutes Glucose 40% Gel (15 Gm) (Glucose Gel) ??30 Gm, By Mouth, Every 20 minutes Melatonin 3 mg Tablet (Melatonin Tablet) ??3 mg, By Mouth, Daily at bedtime NaCl 0.9% Flush 3ml (NaCL 0.9% Flush) ??3 mL, IV Push, Every 8 hours Polyethylene Glycol 17 Gm Powder (MiraLax Powder) ??17 Gm 1 pack/packet, By Mouth, Daily Polyvinyl Alcohol 1.4% Opthalmic Solution/Artificial Tears (Artificial Tears1.4%) ??2 drops, Eyes, Both, Every 4 hours Senna Tablet ??8.6 mg 1 tablet, By Mouth, 2 times a day Simethicone 80 mg Chewable Tablet (Simethicone Tablet) ??80 mg, Chew, 3 times a day ? Results Recent Labs BLOOD COUNT & DIFF WBC 9.4 k/mm3 ()?? 03/15/2024 07:20 RBC 3.23 m/mm3 (Low)?? 03/15/2024 07:20 Hgb 9.8 Gm/dL (Low)?? 03/15/2024 07:20 Hct 31.0 % (Low)?? 03/15/2024 07:20 MCV 96.0 femtoliters (High)?? 03/15/2024 07:20 MCH 30.3 pg ()?? 03/15/2024 07:20 MCHC 31.6 Gm/dL (Low)?? 03/15/2024 07:20 Platelet Count 221 k/mm3 ()?? 03/15/2024 07:20 RDW-SD 53.8 femtoliters (High)?? 03/15/2024 07:20 MPV 11.1 femtoliters ()?? 03/15/2024 07:20 Nucleated RBC (Automated) 0.0 #/100 WBC'S ()?? 03/15/2024 07:20 Abs. NRBC 0.0 k/mm3 ()?? 03/15/2024 07:20 Retic Count 3.2 % (High)?? 03/15/2024 07:20 Retic Count Corrected 2.2 % (High)?? 03/15/2024 07:20 Retic Production Index 1.5 % ()?? 03/15/2024 07:20 ?? CHEM GENERAL Sodium 134 mmol/L ()?? 03/15/2024 07:20 Potassium 4.6 mmol/L ()?? 03/15/2024 07:20 Chloride 99 mmol/L ()?? 03/15/2024 07:20 Bicarbonate Level 22 mmol/L ()?? 03/15/2024 07:20 Anion Gap 13 ()?? 03/15/2024 07:20 Glucose Level 212 mg/dL (High)?? 03/15/2024 07:20 Glucose, POC 211 mg/dL (High)?? 03/15/2024 12:07 Hemoglobin A1C (Monitoring) 8.7 % (High)?? 03/14/2024 17:05 BUN 59 mg/dL (High)?? 03/15/2024 07:20 Creatinine-Blood 2.02 mg/dL (High)?? 03/15/2024 07:20 Estimated GFR Creatinine 32 ML/MIN/1.73 M2 ()?? 03/15/2024 07:20 Calcium 9.1 mg/dL ()?? 03/15/2024 07:20 LDH 290 units/L (High)?? 03/15/2024 07:20 Vitamin B12 Level 1187 pg/mL ()?? 03/15/2024 07:20 Iron Level 40 mcg/dL (Low)?? 03/15/2024 07:20 Iron Binding Capacity, Unsaturated 284 mcg/dL ()?? 03/15/2024 07:20 Iron Binding Capacity, Estimated Total 324 mcg/dL ()?? 03/15/2024 07:20 % Iron Saturation 12 % (Low)?? 03/15/2024 07:20 Ferritin Level 82 ng/mL ()?? 03/15/2024 07:20 ?? IMMUNOLOGY GENERAL Haptoglobin 160 mg/dL ()?? 03/15/2024 07:20 ?? URINE OTHER Est Creatinine Clearance 25.57 mL/min ()?? 03/15/2024 08:31 ? Microbiology ?? Strep Pneumoniae Urinary Ag?? Collected?? Source: Urine Body Site: ?? Collected Dt/Tm: 03/13/2024 05:16 Last Updated Dt/Tm: 03/13/2024 05:17 ?? Legionella Antigen Urine?? Collected?? Source: Urine Body Site: ?? Collected Dt/Tm: 03/13/2024 05:16 Last Updated Dt/Tm: 03/13/2024 05:17 ?? COVID-19, RSV, and Flu A/B, Rapid PCR?? Completed?? Source: Nasal Body Site: Nose Collected Dt/Tm: 03/13/2024 00:16 Last Updated Dt/Tm: 03/13/2024 01:17 ? Assessment/Plan Diagnoses ABISAI (acute kidney injury) ??(N17.9) Acute hypoxic respiratory failure ??(J96.01) Anemia, normocytic normochromic ??(D64.9) Atrial fibrillation ??(I48.91) BPH (benign prostatic hyperplasia) ??(N40.0) COPD exacerbation ??(J44.1) Cardiomyopathy, nonischemic ??(I42.8) Chronic HFrEF (heart failure with reduced ejection fraction) ??(I50.22) Right lower lobe pneumonia ??(J18.9) S/P TAVR (transcatheter aortic valve replacement) ??(Z95.2) T2DM (type 2 diabetes mellitus) ??(E11.9) ?? 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 Patient remains admitted for pneumonia in the setting of COPD, also found to be rhino/enterovirus positive. He continues to experience dyspnea with ambulation. Weaned off O2, will continue to monitor. He also has an ABISAI and elevated glucose levels, will monitor??for improvement today and anticipate discharge tomorrow. ?? Acute hypoxic respiratory failure (J96.01) Right lower lobe pneumonia (J18.9) COPD exacerbation (J44.1) admitted in the setting of rhino enterovirus??infection and??superimposed bacterial pneumonia,??COPD exacerbation evaluated by??pulm rehab, no??home O2??necessary ?? Plan - Continue antibiotics, transitioned to PO Augmentin and doxycycline (03/13-) for 5 day course - Continue Prednisone 50mg, will plan for taper on d/c?? - Scheduled and PRN DuoNeb?? - continue Breo (on Wixela at home) - Weaned off O2 today,??continue to monitor - set up with outpatient COPD clinic and PFTs per pulm rehab ?? ABISAI (acute kidney injury) (N17.9): baseline appears around 1.3-1.4 likely in the setting of poor PO intake and osmotic diuresis with high glucoses Plan: -500cc bolus LR today -hold home Lasix, appears euvolemic -monitor BMP ?? Chronic HFrEF (heart failure with reduced ejection fraction) (I50.22) S/P TAVR (transcatheter aortic valve replacement) (Z95.2) Cardiomyopathy, nonischemic (I42.8) Low suspicion for CHF exacerbation. On exam, pt is euvolemic. No JVD appreciated.??No orthopnea.? Plan - hold home Lasix 40mg x1 due to ABISAI as above -??Continue with metoprolol succinate 12.5 mg twice daily - Continue with atorvastatin - Continue with fenofibrate ?? T2DM (type 2 diabetes mellitus) (E11.9): ??Hold home Jardiance POC elevated, likely in the setting of steroids -Increase home glargine to??16 units??twice daily -Continue SSI -hypoglycemic measures ?? Anemia, macrocytic iron panel with low iron and %saturation vit B12 normal Plan: -start ferrous sulfate, every other day -cont vit B12??supplement ?? Chronic Conditions Atrial fibrillation (I48.91): Continue??apixaban 2.5 mg??twice daily and??amiodarone 200 mg daily BPH (benign prostatic hyperplasia) (N40.0):??Continue terazosin and??finasteride ?? Quality Measures VTE Prophylaxis: Eliquis Code Status: DNR/DNI Diet: Regular Dispo: pending improvement of ABISAI and glucose levels; anticipate d/c tomorrow ?? Patti Frances MD PGY-2, Internal Medicine-[facility]??or pager-[phone] ?? Patient was seen and discussed with attending, Dr. Garvey.? * Rylie Garvey MD: PERFORM Event Display: Progress Note Hospital Authored Date: Attending Attestation:??I have seen and evaluated this patient. ??I have discussed the case and itsmanagement with the resident and agree with the findings and plan as documented in the resident???snote. ? Note * Lula Price RN: PERFORM Event Display: Discharge/Transfer Note Hospital Authored Date: Nursing Discharge Note Entered On: 03/16/2024 14:52 EST Performed On: 03/16/2024 14:51 EST by Lula Price RN Nursing Discharge Note 2 Discharge Time : 03/16/2024 14:51 EST Discharge Level of Care at Discharge : Home/Retirement/Foster Care Patient Left Unit Via : Wheelchair Patient Accompanied Off Unit with : Responsible adult DC Instructions Provided & Signed by Pt : Yes Patient Understands D/C Instructions : Yes Patient Instructions Discharge Signed : No Did Pt have Specialty Bed or Wound Vac : No Lula Price RN - 03/16/2024 14:51 EST * Rylie Garvey MD: MODIFY Patti Mancilla MD: PERFORM, MODIFY Patti Mancilla MD: MODIFY, MODIFY Patti Mancilla MD: MODIFY Event Display: Discharge/Transfer Note Hospital Authored Date: [id number] Patient: ??VIDA CASTELLONONY ? Age:??83 Years?Sex:??Male?:??1940?? Patient Information Discharge Location: S2 Primary Care Physician: Donte Powell MD Admit Date/Time: 03/13/2024 02:38 Discharge Disposition Discharge Disposition: Home: No Services Discharge Diagnosis Acute hypoxic respiratory failure (J96.01) Right lower lobe pneumonia (J18.9) ABISAI (acute kidney injury) (N17.9) COPD exacerbation (J44.1) Atrial fibrillation (I48.91) Chronic HFrEF (heart failure with reduced ejection fraction) (I50.22) S/P TAVR (transcatheter aortic valve replacement) (Z95.2) Cardiomyopathy, nonischemic (I42.8) BPH (benign prostatic hyperplasia) (N40.0) T2DM (type 2 diabetes mellitus) (E11.9) Anemia, normocytic normochromic (D64.9) _ Discharge Medications Albuterol (Albuterol (Eqv-ProAir HFA) 90 mcg/inh inhalation aerosol)?2?inhalation?180?Microgram?Inhalation?Every 6 hours?as needed?as needed for shortness of breath or wheezing amiODARONE (amiodarone 200 mg oral tablet)?200?Milligram?By Mouth?2 times a day?for 30?Days?Daily Amoxicillin-Clavulanate (amoxicillin-clavulanate 500 mg-125 mg oral tablet)?1?tab(s)?By Mouth?2 times a day apixaban (Eliquis 2.5 mg oral tablet)?1?tab(s)?2.5?Milligram?By Mouth?2 times a day Atorvastatin (atorvastatin 40 mg oral tablet)?1?tab(s)?40?Milligram?By Mouth?Daily Betamethasone Topical (betamethasone topical dipropionate 0.05% lotion)?1?sunitha?Topically?2 times a day Cyanocobalamin (Vitamin B12 1000 mcg oral tablet)?1?tab(s)?1,000?Microgram?By Mouth?Daily Doxycycline (doxycycline monohydrate 100 mg oral tablet)?100?Milligram?By Mouth?Every 12 hours Durable Medical Equipment (Pen Howard, 30 G x 8 mm BD Ultra Fine II)?See Instructions?for 30?Days?use as directed for Type 2 Diabetes Mellitus. 4x/day Fenofibrate (fenofibrate 54 mg oral tablet)?1?tab(s)?54?Milligram?By Mouth?Daily?2?108?Daily in AM Ferrous Sulfate (ferrous sulfate 325 mg oral enteric coated tablet)?325?Milligram?By Mouth?Every other day Finasteride (finasteride 5 mg oral tablet)?1?tab(s)?5?Milligram?By Mouth?Daily?Daily at supper Fluticasone-Salmeterol (Wixela Inhub 250 mcg-50 mcg inhalation powder)?1?inhalation?Inhalation?2 times a day?rinse mouth and throat after use Furosemide (furosemide 40 mg oral tablet)?40?Milligram?1?tablet?By Mouth?2 times a day?for 30?Days?Daily Insulin Aspart (NovoLOG FlexPen 100 units/mL injectable solution)?See Instructions?use 3x/daybefore meals Insulin Glargine (Insulin Glargine Inj)?18?unit(s)?Subcutaneous Injection?2 times a day?10?unit(s)?Subcutaneous Injection?2 times a day?take 16u twice daily while on prednisone, then resume 13u twice daily as before Lorazepam (LORazepam 0.5 mg oral tablet)?1?tab(s)?0.5?Milligram?By Mouth?Daily atbedtime Metoprolol (Metoprolol Succinate ER 25 mg oral tablet, extended release)?12.5?Milligram?0.5?tablet?By Mouth?2 times a day Ocular Lubricant (Refresh - solution)?1?Drops?Eyes, Both?2 times a day?as needed?for dry eyes PredniSONE (predniSONE 10 mg oral tablet)?See Instructions?Take 4 tablet daily for 3 days, then take 3 tablet daily for 3 days, then take 2 tablet daily for 3 days, then take 1 tablet daily until finished Terazosin (terazosin 5 mg oral capsule)?5?Milligram?1?capsule?By Mouth?Daily at bedtime ? 72 Hour Antibiotic History Active Antibiotics Calendar Day Last Administered First Administered Amoxicillin-Clavulanate??1 tablet, By Mouth, 2 times a day ?2 03/16/2024 09:34 03/15/2024 22:09 Doxycycline??100 mg, By Mouth, Every 12 hours ?3 03/16/2024 05:56 03/14/2024 18:37 ? Stopped Antibiotics Stop Date/Time Last Administered First Administered Ceftriaxone??1 Gm, 100 mL/hr, IVPB, Every 24 hours 03/15/2024 13:52 03/15/2024 03:26 03/13/2024 01:45 Doxycycline??100 mg, 100 mL/hr, IVPB, Every 12 hours 03/14/2024 12:28 03/14/2024 07:11 03/13/2024 06:13 ? Medications Started Augmentin doxycycline prednisone (taper) albuterol PRN Medications Discontinued Jardiance (empagliflozin) Doses Changed insulin glargine, increased to 16u BID while on prednisone Lasix, decreased to 40mg daily Allergies Allergies ?(Active and Proposed Allergies Only) No Known Medication Allergies? (Severity: Unknown severity, Onset: Unknown) ? 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 Patient remains admitted for pneumonia in the setting of COPD, also found to be rhino/enterovirus positive. He continues to experience some mild dyspnea with ambulation,improving. Weaned off O2, monitoring and continues to saturate well. He also had an ABISAI which is now improving. He was also noted to have elevated glucose levels, insulin regimen increased and will need to closely monitor while on steroids. He is stable for discharge to home. ? Acute hypoxic respiratory failure (J96.01) Right lower lobe pneumonia (J18.9) COPD exacerbation (J44.1) initially on ceftriaxone and doxy, transitioned to PO O2 intermittently, has been weaned off; evaluated by pulm rehab with no home O2 requirement ? Recommendations: - Continue antibiotics, transitioned to PO Augmentin and doxycycline (03/13-) for 5 day course - Continue Prednisone 50mg, taper by 10mg every 3 days until finished - PRN albuterol MDI - continue home Wixela ??- set up with outpatient COPD clinic and PFTs per pulm rehab ? Acute kidney injury baseline appears around 1.3-1.4 likely in the setting of poor PO intake and osmotic diuresis with high glucoses ?? Recommendations - decreased Lasix to 40mg daily - follow-up with PCP for repeat BMP in 1 week ?? Chronic HFrEF (heart failure with reduced ejection fraction) (I50.22) ? Associated with S/P TAVR (transcatheter aortic valve replacement) (Z95.2), Cardiomyopathy, nonischemic (I42.8) ??Low suspicion for CHF exacerbation. On exam, pt is euvolemic. ? Recommendations: - Decrease Lasix to 40mg daily ??- Continue with metoprolol succinate 12.5 mg twice daily ??- Continue with atorvastatin ??- Continue with fenofibrate ?? T2DM (type 2 diabetes mellitus) (E11.9): ??POC elevated, likely in the setting of steroids Recommendations: ??-Increase home glargine to 16 units twice daily until prednisone course finished ??-Continue insulin aspart at home dose - Hold??home Jardiance until repeat BMP,??resume OP if GFR>45 ?? Anemia, macrocytic iron panel with low iron and %saturation vit B12 normal Recommendations: ??-start ferrous sulfate, every other day ??-cont vit B12 supplement -Follow-up with PCP ?? Chronic Conditions ??Atrial fibrillation (I48.91): Continue apixaban 2.5 mg twice daily and amiodarone 200 mg daily ??BPH (benign prostatic hyperplasia) (N40.0): Continue terazosin and finasteride ?? Objective Measurements?? Height: 168 cm (03/16/24) Weight: 77.7 kg (03/16/24) Dry Weight: 79.2 kg (03/13/24) Body Mass Index:??27.53 kg/m2??High (03/16/24) ? Vital Signs?? Temperature: 97.5 DegF (03/16/24 10:35:00) Temperature Route: Oral (03/16/24 10:35:00) Pulse Rate: 83 bpm (03/16/24 10:35:00) Respiratory Rate: 18 br/min (03/16/24 10:35:00) Systolic Blood Pressure: 136 mm Hg (03/16/24 10:35:00) Diastolic Blood Pressure:??51 mm Hg??Low (03/16/24 10:35:00) Blood pressure sites: Arm, right (03/16/24 10:35:00) Mean Arterial Pressure: 79 mm Hg (03/16/24 10:35:00) Pulse Pressure: 85 mm Hg (03/16/24 10:35:00) Oxygen Saturation: 95 % (03/16/24 10:35:00) Mode of Delivery (Oxygen): Room air (03/16/24 10:35:00) Early Warning Score: 5 (03/16/24 12:53:02) ? Intake/Output? 03/13 02:38 03/16 07:00 03/15 07:00 03/14 07:00 03/13 07:00 ?? 03/16 13:02 03/16 13:02 03/16 06:59 03/15 06:59 03/14 06:59 Intake ? 2862 ?0 ? 1062 ? 1200 ?600 Output ?0 ?0 ?0 ?0 ?0 Net Total ? 2862 ?0 ? 1062 ? 1200 ?600 ? Urine Count ? 14 ?0 ?8 ?4 ?2 ? . Physical Exam General:??No acute distress HEENT:??Moist mucus membranes, PERRL, no nystagmus, no scleral icterus Respiratory: Decreased air entry bilaterally, mild??expiratory wheezing bilaterally, coarse rhonchi; no??increased work of breathing, no crackles Cardiovascular:??Normal rate, regular rhythm, no murmurs, peripheral pulses intact Abdomen:??Normal active bowel sounds, soft, mildly distended Musculoskeletal:??No LE edema, moving all extremities normally Neurologic:??Alert & Oriented Skin:??Warm and dry, No rashes or lesions Pending Results Legionella Antigen Urine ordered on 03/13/2024 Strep Pneumoniae Urinary Ag ordered on 03/13/2024 Urea Nitrogen Urine ordered on 03/13/2024 Follow-Up Appointments Added Follow Up ?Time Frame ?Comments Donte Powell MD?1 week: call to discuss follow up visit Patient Instructions You were admitted for shortness of breath and cough, found to have??rhino/enterovirus??with??COPD exacerbation and??pneumonia.??You received some oxygen to help??with your breathing,??and reevaluatedby??pulmonary rehab??and found to not require further oxygen supplementation. You are being treatedwith antibiotics??and steroids, which you will need to continue??taking at home. ?? START taking: -Augmentin, 500mg twice daily for 2 days, take first dose tonight -doxycycline 100mg, every 12 hours for 2 days, take first dose tonight -prednisone: Starting tomorrow, take??40 mg??for 3 days, 30 mg for next 3 days,??20 mg for next 3 days, 10 mg for next 3 days then stop -albuterol inhaler,??2??puffs??every??6??hours??as needed for shortness??of??breath/wheezing ?? CHANGE how you take: insulin glargine, take 16 units twice daily until you stop taking the prednisone; then resume previous dose of insulin glargine 13 units twice daily furosemide (Lasix), decrease to 40mg once daily starting tomorrow ?? STOP taking: Jardiance, follow-up with PCP? Please monitor your blood sugars three times a day. Call your doctor if you see glucose above 400. Please weigh yourself daily. Call your doctor if??your weight increases by 3 pounds in 1 day or 5 pounds in 1 week.? Please??follow-up with your primary care doctor within 1 week. You will need repeat lab work, including CBC and BMP. Home Health Face to Face ^HomeHealthFTF Results Discharge Labs BLOOD COUNT & DIFF WBC 6.2 k/mm3 ()?? 03/16/2024 01:20 RBC 3.17 m/mm3 (Low)?? 03/16/2024 01:20 Hgb 9.7 Gm/dL (Low)?? 03/16/2024 01:20 Hct 31.1 % (Low)?? 03/16/2024 01:20 MCV 98.1 femtoliters (High)?? 03/16/2024 01:20 MCH 30.6 pg ()?? 03/16/2024 01:20 MCHC 31.2 Gm/dL (Low)?? 03/16/2024 01:20 Platelet Count 203 k/mm3 ()?? 03/16/2024 01:20 RDW-SD 55.1 femtoliters (High)?? 03/16/2024 01:20 MPV 11.4 femtoliters ()?? 03/16/2024 01:20 Nucleated RBC (Automated) 0.0 #/100 WBC'S ()?? 03/16/2024 01:20 Abs. NRBC 0.0 k/mm3 ()?? 03/16/2024 01:20 Abs. Neut 4.5 k/mm3 ()?? 03/12/2024 23:51 Abs. Lymph 1.3 k/mm3 ()?? 03/12/2024 23:51 Abs. Denton 0.8 k/mm3 ()?? 03/12/2024 23:51 Abs. Eo 0.1 k/mm3 ()?? 03/12/2024 23:51 Abs. Baso 0.0 k/mm3 ()?? 03/12/2024 23:51 Neut % 67.2 % ()?? 03/12/2024 23:51 Lymph % 19.1 % ()?? 03/12/2024 23:51 Denton % 11.7 % (High)?? 03/12/2024 23:51 Eos % 0.8 % ()?? 03/12/2024 23:51 Baso % 0.3 % ()?? 03/12/2024 23:51 Retic Count 3.2 % (High)?? 03/15/2024 07:20 Retic Count Corrected 2.2 % (High)?? 03/15/2024 07:20 Retic Production Index 1.5 % ()?? 03/15/2024 07:20 Imm Gran 0.9 % ()?? 03/12/2024 23:51 Abs. Imm Gran 0.1 k/mm3 ()?? 03/12/2024 23:51 ? CARDIAC Nt-Probnp 8490 pg/mL (High)?? 03/12/2024 23:51 ? CHEM GENERAL Sodium 133 mmol/L ()?? 03/16/2024 01:20 Potassium 4.8 mmol/L ()?? 03/16/2024 01:20 Chloride 96 mmol/L (Low)?? 03/16/2024 01:20 Bicarbonate Level 20 mmol/L (Low)?? 03/16/2024 01:20 Anion Gap 17 ()?? 03/16/2024 01:20 Glucose Level 400 mg/dL (High)?? 03/16/2024 01:20 Glucose, POC 311 mg/dL (High)?? 03/16/2024 12:21 Hemoglobin A1C (Monitoring) 8.7 % (High)?? 03/14/2024 17:05 BUN 60 mg/dL (High)?? 03/16/2024 01:20 Creatinine-Blood 1.97 mg/dL (High)?? 03/16/2024 01:20 Estimated GFR Creatinine 33 ML/MIN/1.73 M2 ()?? 03/16/2024 01:20 Calcium 9.3 mg/dL ()?? 03/16/2024 01:20 Phosphorus 4.8 mg/dL (High)?? 03/16/2024 01:20 Magnesium 2.2 mg/dL ()?? 03/16/2024 01:20 Protein, Total 7.5 Gm/dL ()?? 03/13/2024 08:45 Albumin 3.3 Gm/dL (Low)?? 03/13/2024 08:45 AG Ratio 0.8 ()?? 03/13/2024 08:45 LDH 290 units/L (High)?? 03/15/2024 07:20 Alkaline Phosphatase 77 units/L ()?? 03/13/2024 08:45 AST (SGOT) 52 units/L (High)?? 03/13/2024 08:45 ALT (SGPT) 40 units/L ()?? 03/13/2024 08:45 Bilirubin, Total 0.4 mg/dL ()?? 03/13/2024 08:45 Vitamin B12 Level 1187 pg/mL ()?? 03/15/2024 07:20 Lactate 1.5 mmol/L ()?? 03/12/2024 23:51 Iron Level 40 mcg/dL (Low)?? 03/15/2024 07:20 Iron Binding Capacity, Unsaturated 284 mcg/dL ()?? 03/15/2024 07:20 Iron Binding Capacity, Estimated Total 324 mcg/dL ()?? 03/15/2024 07:20 % Iron Saturation 12 % (Low)?? 03/15/2024 07:20 Ferritin Level 82 ng/mL ()?? 03/15/2024 07:20 ? IMMUNOLOGY GENERAL Haptoglobin 160 mg/dL ()?? 03/15/2024 07:20 ? MISC. CHEMISTRY Procalcitonin 0.12 ng/mL ()?? 03/12/2024 23:51 ? URINE OTHER Creatinine, Urine Random 50.6 mg/dL ()?? 03/13/2024 06:20 Sodium, Urine Random 21 mmol/L ()?? 03/13/2024 06:20 Chloride, Urine Random <20 mmol/L ()?? 03/13/2024 06:20 Urea Nitrogen, Urine Random 458.3 mg/dL ()?? 03/13/2024 06:20 Est Creatinine Clearance 26.22 mL/min ()?? 03/16/2024 02:54 ? VIROLOGY Influenza A PCR NEGATIVE ()?? 03/12/2024 23:51 Influenza B PCR NEGATIVE ()?? 03/12/2024 23:51 RSV PCR NEGATIVE ()?? 03/12/2024 23:51 Adenovirus by PCR NEGATIVE ()?? 03/12/2024 23:51 Coronavirus 229E by PCR (not COVID-19) NEGATIVE ()?? 03/12/2024 23:51 Coronavirus HKU1 by PCR (not COVID-19) NEGATIVE ()?? 03/12/2024 23:51 Coronavirus NL63 by PCR (not COVID-19) NEGATIVE ()?? 03/12/2024 23:51 Coronavirus OC43 by PCR (not COVID-19) NEGATIVE ()?? 03/12/2024 23:51 Human Metapneumovirus by PCR NEGATIVE ()?? 03/12/2024 23:51 Rhinovirus/Enterovirus by PCR POSITIVE (Abnormal)?? 03/12/2024 23:51 Influenza A by PCR NEGATIVE ()?? 03/12/2024 23:51 Influenza B by PCR NEGATIVE ()?? 03/12/2024 23:51 Parainfluenza 1 by PCR NEGATIVE ()?? 03/12/2024 23:51 Parainfluenza 2 by PCR NEGATIVE ()?? 03/12/2024 23:51 Parainfluenza 3 by PCR NEGATIVE ()?? 03/12/2024 23:51 Parainfluenza 4 by PCR NEGATIVE ()?? 03/12/2024 23:51 RSV by PCR NEGATIVE ()?? 03/12/2024 23:51 Bordetella Pertussis by PCR NEGATIVE ()?? 03/12/2024 23:51 Chlamydophila Pneumoniae by PCR NEGATIVE ()?? 03/12/2024 23:51 Mycoplasma Pneumoniae by PCR NEGATIVE ()?? 03/12/2024 23:51 COVID-19 PCR Specimen Source NASAL ()?? 03/12/2024 23:51 COVID-19 PCR Result NEGATIVE ()?? 03/12/2024 23:51 COVID-19 (SARS-CoV-2) by PCR NEGATIVE ()?? 03/12/2024 23:51 Bordetella Parapertussis by PCR NEGATIVE ()?? 03/12/2024 23:51 ? Microbiology ?? Strep Pneumoniae Urinary Ag?? Collected?? Source: Urine Body Site: ?? Collected Dt/Tm: 03/13/2024 05:16 Last Updated Dt/Tm: 03/13/2024 05:17 ?? Legionella Antigen Urine?? Collected?? Source: Urine Body Site: ?? Collected Dt/Tm: 03/13/2024 05:16 Last Updated Dt/Tm: 03/13/2024 05:17 ?? COVID-19, RSV, and Flu A/B, Rapid PCR?? Completed?? Source: Nasal Body Site: Nose Collected Dt/Tm: 03/13/2024 00:16 Last Updated Dt/Tm: 03/13/2024 01:17 ? Patti Frances MD PGY-2, Internal Medicine-Pediatrics [employer]??or pager-[phone] ?? Patient was seen and discussed with attending, Dr. Garvey. ? 40 minutes spent on discharge * Guru PALACIO, Rylie: PERFORM Event Display: Discharge/Transfer Note Hospital Authored Date: [id number] Attending Attestation:??I have seen and evaluated this patient. ??I have discussed the case and itsmanagement with the resident and agree with the findings and plan as documented in the resident???snote. ? * Lula Price RN: PERFORM Event Display: Patient Education/Instruction Authored Date: [id number] Inpatient Adult Discharge Instructions. [address] [address] Name: TONY RAVINDER : 1940?? Visit: 03/13/2024 02:38?? Current Date: 03/16/2024 14:32 ?? Account: [id number]?? Inpatient Adult Discharge Instructions We would like to thank you for allowing us to assist you with your healthcare needs. The following includes patient education materials and information regarding your injury/illness. Our entire staffstrives to provide an excellent experience for our patients and their families. PLEASE ENSURE YOU FOLLOW-UP PER THE INSTRUCTIONS BELOW! ?? YOUR OPINION IS IMPORTANT TO US! Please complete the survey you may receive by mail or email. Your feedback will be used to make improvements to the healthcare experiences of our patients and their families. Surveys are administered by [employer] ?? If further treatment with your primary care physician or another doctor is recommended, it is important for you to keep the appointment. Call your primary care physician or return to the Emergency Department immediately if your condition worsens, fails to improve, or new symptoms develop. If you need to find a doctor, you can call [facility] Link for a referral at [phone] or toll free at [phone]) or log in to [email or web address].. ?? [facility], in keeping with [facility] guidance, no longer requires face masks for staff, patientsor visitors in most situations. Similiar to time spent indoors at other locations, there is the chance that you were exposed to repiratory viruses during your time with us (such as flu or COVID-19). If you develop symptoms concerning for a viral respiratory infection, please seek testing (and treatment if indicated) from your medical provider or home test kit. ?? You can view and manage your care through the patient portal or by using a health care sunitha of your choosing. [employer] is a website that allows you to securely view your medical information including your hospital discharge summary, office visit summaries, medications and follow-up visits. You can also request appointments, renew medications, and request access to your medical information using a health care sunitha of your choosing, or just ask a question. You can enroll at [email or web address] or register during your next office visit. You have been discharged from [facility], Patient Care Unit: S2??. If you have any questions regarding these instructions, including results of studies pending, afteryou leave, please call us and we will be happy to assist you 14/10. [facility] Your Care Team Attending Physician Rylie Garvey MD?? Consulting Providers Rylie Garvey MD?? Discharging Providers Edward Frances MD, Patti Reason for Your Visit From home, reports cough x1 week, initially productive now non productive, otc meds not helping, worsening sob when laying flat. per ems pt on 92% RA, no O2 baseline. Recent pacemaker & valve replacement done?? Your Diagnosis Acute hypoxic respiratory failure Anemia, normocytic normochromic Atrial fibrillation BPH (benign prostatic hyperplasia) Cardiomyopathy, nonischemic Chronic HFrEF (heart failure with reduced ejection fraction) COPD exacerbation S/P TAVR (transcatheter aortic valve replacement) T2DM (type 2 diabetes mellitus) Tests Performed Below is a partial list of the tests performed during your hospitalization. You may have had other tests and procedures not included in this list. Please discuss all test results with your provider. Basic Metabolic Panel CBC CBC w/ Differential Comprehensive Metabolic Panel COVID-19, RSV, and Flu A/B, Rapid PCR Ferritin GLUCOSE POC Haptoglobin Hemoglobin A1C (Monitoring) Iron + Iron Binding Capacity Lactic Acid Level LDH Legionella Antigen Urine?-- Results Pending -- Magnesium Level Mg Level Phosphorus Level PROBNP PROCALCITONIN RESP PATH PANEL W/COVID-[address] Strep Pneumoniae Urinary Ag?-- Results Pending -- UREA NITROGEN, URINE MG/DL Urine Chloride Urine Creatinine Urine Na VITAMIN B12 XR Chest 2 Views Frontal and Lat B Type Natriuretic Peptide (NT-proBNP) (PROBNP)?? Basic Metabolic Panel?? CBC?? CBC w/ Differential?? COVID-19, RSV, and Flu A/B, Rapid PCR?? Chloride Urine (Urine Chloride)?? Comprehensive Metabolic Panel?? Creatinine Urine (Urine Creatinine)?? Ferritin?? Glucose POC?? Haptoglobin?? Hemoglobin A1C (Monitoring)?? Iron + Iron Binding Capacity?? LDH?? Lactic Acid Level?? Legionella Antigen Urine?? Magnesium Level?? Phosphorus Level?? Procalcitonin Level (PROCALCITONIN)?? Respiratory Pathogen PCR with COVID-19 (RESP PATH PANEL W/COVID-19)?? Reticulocyte Ct?? Sodium Urine (Urine Na)?? Strep Pneumoniae Urinary Ag?? Urea Nitrogen Urine (UREA NITROGEN, URINE MG/DL)?? Vitamin B12 Level (VITAMIN B12)?? Chest 2 Views Frontal and Lat (XR Chest 2 Views Frontal and Lat)?? Primary Care Provider Donte Powell MD? Advance Directive Health Care Proxy on File Yes - Health Care Proxy Yes - MOLST Discharge Vitals Temperature: 97.5 DegF Height: 168 cm Pulse Rate: 83 bpm Weight: 77.7 kg Respiratory Rate: 18 br/min Body Mass Index:??27.53 kg/m2??High Systolic Blood Pressure: 136 mm Hg Body surface area: 1.9 Diastolic Blood Pressure:??51 mm Hg??Low ?? Oxygen Saturation: 95 % ?? Studies Pending All studies ordered during this hospital stay have been completed unless listed below. Please discuss all pending results with your provider listed above in these instructions. ?? Legionella Antigen Urine?? Strep Pneumoniae Urinary Ag?? Urea Nitrogen Urine?? What to do next Instructions From Your Doctor You were admitted for shortness of breath and cough, found to have??rhino/enterovirus??with??COPD exacerbation and??pneumonia.??You received some oxygen to help??with your breathing,??and reevaluatedby??pulmonary rehab??and found to not require further oxygen supplementation. You are being treatedwith antibiotics??and steroids, which you will need to continue??taking at home. ?? START taking: -Augmentin, 500mg twice daily for 2 days, take first dose tonight -doxycycline 100mg, every 12 hours for 2 days, take first dose tonight -prednisone: Starting tomorrow, take??40 mg??for 3 days, 30 mg for next 3 days,??20 mg for next 3 days, 10 mg for next 3 days then stop -albuterol inhaler,??2??puffs??every??6??hours??as needed for shortness??of??breath/wheezing ?? CHANGE how you take: insulin glargine, take 16 units twice daily until you stop taking the prednisone; then resume previous dose of insulin glargine 13 units twice daily furosemide (Lasix), decrease to 40mg once daily starting tomorrow ?? STOP taking: Jardiance, follow-up with PCP? Please monitor your blood sugars three times a day. Call your doctor if you see glucose above 400. Please weigh yourself daily. Call your doctor if??your weight increases by 3 pounds in 1 day or 5 pounds in 1 week.? Please??follow-up with your primary care doctor within 1 week. You will need repeat lab work, including CBC and BMP. ?? Orders? 03/16/24 13:05:00 EST?? Prescriptions??, ??03/16/24 13:05:00 EST?? You Need to Schedule the Following Appointments Follow Up with??Donte Powell MD When:??Within 1 week: call to discuss follow up visit Where: [address] [place] [address]- Discharge Medications TONY CASTELLON :1940 Visit Date:03/13/2024 Medications: Please continue your medications until treatment is completed or stopped by your provider. Medications not listed below should be discontinued. Discuss any questions related to medications with your provider. What How Much When Instructions Next Dose New Albuterol (Albuterol (Eqv-ProAir HFA) 90 mcg/ inh inhalation aerosol) 2 inhalation Inhalation Every 6 hours as needed for as needed for shortness of breath or wheezing Pickup at [facility] #[id number] every 6 hours as needed New Amoxicillin-Clavulanate (amoxicillin-clavulanate 500 mg-125 mg oral tablet) 1 tab(s) Oral Twice a day Pickup at [facility] #[id number] [facility] 03/16 9pm New Doxycycline (doxycycline monohydrate 100 mg oral tablet) 100 Milligram Oral Every 12 hours Pickup at [facility] #[id number] [facility] 03/16 9pm New Ferrous Sulfate (ferrous sulfate 325 mg oral enteric coated tablet) 325 Milligram Oral Every other day Pickup at [facility] #[id number] tomorrow 03/17 9am New PredniSONE (predniSONE 10 mg oral tablet) See instructions Take 4 tablet daily for 3 days, then take 3 tablet daily for 3 days, then take 2 tablet daily for 3days, then take 1 tablet daily until finished ?? Pickup at [facility] #[id number] see instruction. tomorrow 03/07 9am Changed Fluticasone-Salmeterol (Wixela Inhub 250 mcg-50 mcg inhalation powder) 1 inhalation Inhalation Twice a day rinse mouth and throat after use ?? tonight 9om Changed Furosemide (furosemide 40 mg oral tablet) 1 tab(s) Oral Daily Duration: 30 Days tomorrow 03/17 9am Changed Insulin Glargine (Insulin Glargine Inj) 16 unit(s) Subcutaneous Injection Twice a day take 16u twice daily while on prednisone, then resume 13u twice daily as before ?? tonight 03/16 9pm Changed Metoprolol (Metoprolol Succinate ER 25 mg oral tablet, extended release) 0.5 tab(s) Oral Twice a day tonight 03/16 9pm Unchanged amiODARONE (amiodarone 200 mg oral tablet) 200 Milligram Oral Daily Duration: 30 Days tomorrow 03/17 9am Unchanged apixaban (Eliquis 2.5 mg oral tablet) 1 tab(s) Oral Twice a day tonight 03/16 9pm Unchanged Atorvastatin (atorvastatin 40 mg oral tablet) 1 tab(s) Oral Daily tomorrow 03/17 9am Unchanged Betamethasone Topical (betamethasone topical dipropionate 0.05% lotion) 1 sunitha Topically Twice a day tonight 03/16 9pm Unchanged Cyanocobalamin (Vitamin B12 1000 mcg oral tablet) 1 tab(s) Oral Daily tomorrow 03/17 9am Unchanged Durable Medical Equipment (Pen Howard, 30 G x 8 mm BD Ultra Fine II) See instructions Duration: 30 Days use as directed for Type 2 Diabetes Mellitus. 4x/ day ?? Unchanged Fenofibrate (fenofibrate 54 mg oral tablet) 2 tab(s) Oral Daily in the morning tomorrow 03/17 9am Unchanged Finasteride (finasteride 5 mg oral tablet) 1 tab(s) Oral Daily at Bedtime tonight 03/16 9pm Unchanged Insulin Aspart (NovoLOG FlexPen 100 units/ mL injectable solution) See instructions 16u sc qam 9u sc noon 11u sc before supper use 3x/ day before meals ?? Unchanged Lorazepam (LORazepam 0.5 mg oral tablet) 1 tab(s) Oral Daily at Bedtime tonight 03/16 9pm Unchanged Ocular Lubricant (Refresh - solution) 1 Drops Both eyes Twice a day as needed for for dry eyes as needed Unchanged Terazosin (terazosin 5 mg oral capsule) 1 capsule Oral Daily at Bedtime tonight 12 9pm Pharmacy Information [facility] #[id number]: [address], [place] [id number] [phone] ?? What How Much When Comments Stop Taking empagliflozin (Jardiance 25 mg oral tablet) 1 tab(s) Oral Daily in the morning Stop Taking Miscellaneous Rx (CBC,BMP in 1 week) See instructions Please send results to Dr. Babak Rodriguez, thanks ?? Prescription Given During Visit Albuterol (Albuterol (Eqv-ProAir HFA) 90 mcg/inh inhalation aerosol) - 2 inhalation = 180 mcg, Inhalation, Every 6 hours, # 18 Gm, 0 Refills, [facility] #[id number] [place] [address] [phone]?? Amoxicillin-Clavulanate (amoxicillin-clavulanate 500 mg-125 mg oral tablet) - 1 tablet, By Mouth, 2times a day, # 3 tablet, 0 Refills, [facility] #[id number] [place] [address] [phone]?? Doxycycline (doxycycline monohydrate 100 mg oral tablet) - 100 mg, By Mouth, Every 12 hours, # 3 tablet, 0 Refills, [facility] #[id number] [place] [address] [phone]?? Ferrous Sulfate (ferrous sulfate 325 mg oral enteric coated tablet) - 325 mg, By Mouth, Every otherday, # 30 tablet, 0 Refills, [facility] #[id number] [place] [address] [phone]?? PredniSONE (predniSONE 10 mg oral tablet) - , # 30 tablet, 0 Refills, Take 4 tablet daily for 3 days, then take 3 tablet daily for 3 days, then take 2 tablet daily for 3 days, then take 1 tablet daily until finished, [facility] TableNOW [facility] [id number] [address] [id number]?? Laboratory Results Below is a partial list of the most recent Laboratory test results done prior to this discharge. You may have had other tests and procedures not included in this list. Please discuss all test resultswith your provider. Est Creatinine Clearance - 26.22 mL/min (03/16/2024) Basic Metabolic Panel (03/16/2024) ???Sodium - 133 mmol/L???Potassium - 4.8 mmol/L???Chloride - 96 mmol/L???Bicarbonate Level - 20 mmol/L???Anion Gap - 17???Glucose Level - 400 mg/dL???BUN - 60 mg/dL???Creatinine-Blood - 1.97 mg/dL???Estimated GFR Creatinine - 33 ML/MIN/1.73 M2???Calcium - 9.3 mg/dL CBC (03/16/2024) ???WBC - 6.2 k/mm3???RBC - 3.17 m/mm3???Hgb - 9.7 Gm/dL???Hct - 31.1 %???MCV - 98.1 femtoliters???MCH - 30.6 pg???MCHC - 31.2 Gm/dL???Platelet Count - 203 k/mm3???RDW-SD - 55.1 femtoliters???MPV - 11.4 femtoliters???Nucleated RBC (Automated) - 0.0 #/100 WBC'S???Abs. NRBC - 0.0 k/mm3 CBC w/ Differential (03/12/2024) ???WBC - 6.7 k/mm3???RBC - 3.22 m/mm3???Hgb - 10.0 Gm/dL???Hct - 31.2 %???MCV - 96.9 femtoliters???MCH - 31.1 pg???MCHC - 32.1 Gm/dL???Platelet Count - 227 k/mm3???RDW-SD - 53.2 femtoliters???MPV - 11.2 femtoliters???Nucleated RBC (Automated) - 0.0 #/100 WBC'S???Abs. NRBC - 0.0 k/mm3???Abs. Neut - 4.5 k/mm3???Abs. Lymph - 1.3 k/mm3???Abs. Denton - 0.8 k/mm3???Abs. Eo - 0.1 k/mm3???Abs. Baso - 0.0 k/mm3???Neut % - 67.2 %???Lymph % - 19.1 %???Denton % - 11.7 %???Eos % - 0.8 %???Baso % - 0.3 %???Imm Gran - 0.9 %???Abs. Imm Gran - 0.1 k/mm3 Comprehensive Metabolic Panel (03/13/2024) ???Sodium - 137 mmol/L???Potassium - 4.3 mmol/L???Chloride - 103 mmol/L???Bicarbonate Level - 22 mmol/L???Anion Gap - 12???Glucose Level - 192 mg/dL???BUN - 42 mg/dL???Creatinine-Blood - 1.78 mg/dL???Estimated GFR Creatinine - 38 ML/MIN/1.73 M2???Calcium - 8.8 mg/dL???Protein, Total - 7.5 Gm/dL???Albumin - 3.3 Gm/dL???AG Ratio - 0.8???Alkaline Phosphatase - 77 units/L???AST (SGOT) - 52 units/L???ALT (SGPT) - 40 units/L???Bilirubin, Total - 0.4 mg/dL COVID-19, RSV, and Flu A/B, Rapid PCR (03/12/2024) ???Influenza A PCR - NEGATIVE???Influenza B PCR - NEGATIVE???RSV PCR - NEGATIVE???COVID-19 PCR Specimen Source - NASAL???COVID-19 PCR Result - NEGATIVE Ferritin (03/15/2024) ???Ferritin Level - 82 ng/mL GLUCOSE POC (03/16/2024) ???Glucose, POC - 311 mg/dL Haptoglobin (03/15/2024) ???Haptoglobin - 160 mg/dL Hemoglobin A1C (Monitoring) (03/14/2024) ???Hemoglobin A1C (Monitoring) - 8.7 % Iron + Iron Binding Capacity (03/15/2024) ???Iron Level - 40 mcg/dL???Iron Binding Capacity, Unsaturated - 284 mcg/dL???Iron Binding Capacity, Estimated Total - 324 mcg/dL???% Iron Saturation - 12 % Lactic Acid Level (03/12/2024) ???Lactate - 1.5 mmol/L LDH (03/15/2024) ???LDH - 290 units/L Magnesium Level (03/16/2024) ???Magnesium - 2.2 mg/dL Mg Level (03/13/2024) ???Magnesium - 2.3 mg/dL Phosphorus Level (03/16/2024) ???Phosphorus - 4.8 mg/dL PROBNP (03/12/2024) ???Nt-Probnp - 8490 pg/mL PROCALCITONIN (03/12/2024) ???Procalcitonin - 0.12 ng/mL RESP PATH PANEL W/COVID-19 (03/12/2024) ???Adenovirus by PCR - NEGATIVE???Coronavirus 229E by PCR (not COVID-19) - NEGATIVE???Coronavirus HKU1 by PCR (not COVID-19) - NEGATIVE???Coronavirus NL63 by PCR (not COVID-19) - NEGATIVE???Coronavirus OC43 by PCR (not COVID-19) - NEGATIVE???Human Metapneumovirus by PCR - NEGATIVE???Rhinovirus/Enterovirus by PCR - POSITIVE???Influenza A by PCR - NEGATIVE???Influenza B by PCR - NEGATIVE???Parainfluenza 1 by PCR - NEGATIVE???Parainfluenza 2 by PCR - NEGATIVE???Parainfluenza 3 by PCR - NEGATIVE???Parainfluenza 4 by PCR - NEGATIVE???RSV by PCR - NEGATIVE???Bordetella Pertussis by PCR - NEGATIVE??? Chlamydophila Pneumoniae by PCR - NEGATIVE???Mycoplasma Pneumoniae by PCR - NEGATIVE???COVID-19 (SARS-CoV-2) by PCR - NEGATIVE???Bordetella Parapertussis by PCR - NEGATIVE Reticulocyte Ct (03/15/2024) ???Retic Count - 3.2 %???Retic Count Corrected - 2.2 %???Retic Production Index - 1.5 % UREA NITROGEN, URINE MG/DL (03/13/2024) ???Urea Nitrogen, Urine Random - 458.3 mg/dL Urine Chloride (03/13/2024) ? ?Chloride, Urine Random - <20 mmol/L Urine Creatinine (03/13/2024) ???Creatinine, Urine Random - 50.6 mg/dL Urine Na (03/13/2024) ???Sodium, Urine Random - 21 mmol/L VITAMIN B12 (03/15/2024) ???Vitamin B12 Level - 1187 pg/mL You will be contacted within 72 hours with your results. Allergies (NKA means No Known Allergies) No Known Medication Allergies Problems Active Problems??(14) Atheromatous plaque?? Atrial fibrillation?? Benign prostatic hyperplasia?? Bilateral Cataract with lense implants?? Diabetes mellitus type 2?? Essential hypertension?? Ex-smoker?? Gastroesophageal reflux disease?? History of Anemia?? Hyperlipidemia?? Malignant T cell lymphoma, received tadiation, chemo and Stem cell transplant?? Osteoarthritis in hands?? Pacemaker?? Peripheral vascular disease?? Education Materials Below is the list of Educational Leaflet Providered with your Discharge Instructions. Valuables and Belongings I fully understand and agree that [facility] accepts no responsibility for all my personal property including clothing, toilet articles, radios, jewelry, dentures, hearing aids, rings, money, or any other property that is in my possession or is brought to me after admission. I understand certain valuables may be placed in a hospital safe for a short period of time. I understand that the hospital is not liable for loss or damage due to accident, fire, or other natural occurrence while said property is in the safe. I accept full responsibility for any personal property that I keep with me, and will not hold the hospital responsible in case of loss or disappearance. I acknowledge that i have been encouraged to send valuables and belongings home. ?? Review of Valuable and Belonging List: With patient Date for Pt to Sign Valuables/Belongings: 03/13/24 08:25:00 ?? Other Discharge Information ? Pulmonary Rehab Status?? Pulmonary Rehab Discharge Status?? Respiratory Rate: 18 br/min ? Common Emergency Awareness Tips IS IT A STROKE? Act FAST and Check for these signs: FACE Does the face look uneven? ARM Does one arm drift down? SPEECH Does their speech sound strange? TIME Call at any sign of stroke ?? Heart Attack Signs Chest discomfort: Most heart attacks involve discomfort in the center of the chest and lasts more than a few minutes, or goes away and comes back. It can feel like uncomfortable pressure, squeezing, fullness or pain. Discomfort in upper body: Symptoms can include pain or discomfort in one or both arms, back, neck, jaw or stomach. Shortness of breath: With or without discomfort. Other signs: Breaking out in a cold sweat, nausea, or lightheaded. Remember, MINUTES DO MATTER. If you experience any of these heart attack warning signs, call to get immediate medical attention! ?? Smoking can increase your chances of developing chronic health problems and can cause harmful effects to other family members in your house. If you smoke, you are strongly encouraged to quit. Please call [facility] [employer] Link at [phone] or [phone] ([phone]) or log in to [email or web address] for referrals to smoking cessation programs. ?? 288 Suicide & Crisis Lifeline is available 14/10 if you or someone you know needs to find a reason to keep living. By calling 792 you'll be connected to a skilled, trained counselor at a crisis center in your area. INPATIENT DISCHARGE INSTRUCTIONS SIGNATURE PAGE TONY CASTELLON Location:[facility] Registration Date and Time:03/13/2024 02:38 EST Primary Care Physician: Andre PALACIO, Donte, Attending Physician: Guru PALACIO, Rylie, I TONY CASTELLON, have received the above patient education materials/instructions and have verbalized understanding. If ambulance or transport services are being used I further acknowledge beinggiven a choice of service. ?? If you need to contact me, please call me at this number: . Patient/Slagger Name: Patient/Slagger Signature: Relationship to Patient: Witness Name/Signature: Date: Patient Care team information Care Team Personnel Name: Marivel Sandoval Position: [facility] RN Supv Member Role: Primary Care Nurse Name: Donte Powell MD Position: [facility] Outreach Member Role: PCP Address: [address] [place] [address] Andre PALACIO [place], [place] [address] Telecom: Name: Jana Christie RN Position: [facility] RN Member Role: Primary Care Nurse Name: Dylon Ferguson RN Position: [facility] RN Member Role: Primary Care Nurse Name: Claudia Martinez RN Position: [facility] RN Member Role: Primary Care Nurse Name: Ketty Disla RN Position: [facility] RN Member Role: Primary Care Nurse Name: Abraham Ashley RN Position: [facility] AMB Nurse Member Role: Primary Care Nurse Name: Cleopatra Perez RN Position: [facility] RN Member Role: Primary Care Nurse Name: Nelson Potter Jr, RN Position: [facility] JULISSA RN W/OE and Tasks Member Role: Primary Care Nurse Name: Casper Landon RN Position: [facility] RN Member Role: Primary Care Nurse Name: Levy Hi RN Position: [facility] RN Member Role: Primary Care Nurse Name: Luz Moe RN Position: [facility] RN Member Role: Primary Care Nurse Name: Yu Mae RN Position: [facility] RN Member Role: Primary Care Nurse Name: Carolina Booth RN Position: [facility] SN RN Member Role: Primary Care Nurse Name: Zeny Camargo RN Position: [facility] RN Member Role: Primary Care Nurse Name: Thomas St RN Position: [facility] RN Member Role: Primary Care Nurse Care Team Related Persons Name: SOREN LOPEZ Name: KARIN CASTELLON Name: MYA CASTELLON Insurance Providers Guarantor name: TONY RAVINDER Health Plan Information #: 2 Payer: MEDICARE PART B OUTPT Member Number: [id number] Policy Number: NA Group Number: NA Health Plan Information #: 3 Payer: FOR LIFE MCR A ONLY Member Number: [id number] Policy Number: NA Group Number: NA Health Plan Information #: 4 Payer: FOR LIFE MCR A ONLY Member Number: [id number] Policy Number: NA Group Number: NA Health Plan Information #: 1 Payer: MEDICARE A INPT 25 Member Number: [id number] Policy Number: NA Group Number: NA
--- OUTSIDE RECORDS SUMMARY | 2024-03-26 16:24 | XMS_ITS | Continuity of Care Document ---
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 Name Role Phone Donte Powell MD [id number] Date[facility]s): [facility]/02/24 - 03/09/24 [facility] [address] [place] [id number] Attending Physician: Ermelinda Painter NP Admitting Physician: Ermelinda Painter NP Referring Physician: Donte Powell MD Encounter Type: Office Visit Allergies, Adverse Reactions, Alerts Substance Criticality Severity Reaction Reaction Severity Status shellfish lips swelling Active Manila Oil Active warfarin Active Immunizations Given and Recorded Vaccine Date Status [...] 10/16/16 Recorded tetanus/diphtheria/pertussis, acel(Tdap) 10/16/16 Recorded Medications Advair Diskus 250 mcg-50 mcg inhalation powder 1, puffs, Inhalation, Daily, Maintenance, 03/20/20 3:48:00 PM EST, Powder Start Date: 03/20/20 Status: Ordered Repeat number: 1 amiodarone 200 mg oral tablet 200 mg, By Mouth, 2 times a day, # 60 tablet, Refills 0, Tot. Refills 0, Maintenance, 06/07/23 12:19:00 PM EDT, Route to Pharmacy Electronically, [facility], Partial fill upon patient request if the prescription is for a schedule II opioid drug., 168, cm, 06/01/23 19:46:00 EDT, Height,81.5, kg, 05/31/23 14:38:00 EST, Dry Weight Start Date: 06/07/23 Stop Date: 07/07/23 Status: Ordered Quantity: 60.0 Unit: tablet Repeat number: 1 aspirin 81 mg oral tablet, chewable = 81 mg, By Mouth, Daily, # 30 tablet, 0 Refills, Maintenance, 11/26/23 1:06:00 PM EDT, Chew Tablet, [facility] 3, Partial fill upon patient request if the prescription is for a schedule IIopioid drug., 167.6, cm, 11/26/23 12:08:00 EDT, Height, 80.6, kg, 11/25/23 15:33:00 EDT, Dry Weight Start Date: 11/26/23 Stop Date: 12/26/23 Status: Ordered Quantity: 30.0 Unit: tablet Repeat number: 1 atorvastatin 40 [...] Date: 04/25/23 Status: Ordered Repeat number: 1 CBC,BMP in 1 week CBC,BMP in 1 week, See Instructions, # 1 Unknown, Refills 0, Tot. Refills 0, Maintenance, Please send results to Dr. Babak Rodriguez, thanks, 11/26/23 1:04:00 PM EDT, Supply Start Date: 11/26/23 Status: Ordered Quantity: 1.0 Unit: Unknown Repeat number: 1 Eliquis 2.5 mg oral [...] Date: 10/28/19 Status: Ordered Repeat number: 1 finasteride 5 mg oral tablet 1 tablet = 5 mg, By Mouth, Daily at bedtime, Maintenance, 07/15/21 9:55:00 AM EDT, Tablet Start Date: 07/15/21 Status: Ordered Repeat number: 1 furosemide 40 mg oral tablet 40 mg, 1, tablet, By Mouth, 2 times a day, # 60 tablet, Refills 0, Tot. Refills 0, Maintenance, 11/30/23 3:44:00 PM EDT, Route to Pharmacy Electronically, [facility], Partial fill upon patient request if the prescription is for a schedule II opioid drug., 168, cm, 11/30/23 11:34:00 EDT,Height, 80.4, kg, 11/29/23 23:31:00 EDT, Dry Weight Start Date: 11/30/23 Stop Date: 12/30/23 Status: Ordered Quantity: 60.0 Unit: tablet Repeat number: 1 Insulin Glargine Inj = 10 units, Subcutaneous Injection, 2 times a day, 0 Refills, Maintenance, 07/18/21 9:31:00 AM EDT, Injection, Partial fill upon patient request if the prescription is for a schedule II opioid drug. Start Date: 07/18/21 Status: Ordered Repeat number: 1 metoprolol 25 mg oral tablet 12.5 mg, 0.5, tablet, By Mouth, 2 times a day, # 30 tablet, Refills 0, Tot. Refills 0, Maintenance,04/29/23 12:59:00 PM EST, Route to Pharmacy Electronically, [facility], Partial fill upon patient request if the prescription is for a schedule II opioid drug., 167.6, cm, 02/28/23 16:13:00 EST, Height, 83.2, kg, 12/16/22 13:13:00 EDT, Dry Weight Start Date: 04/29/23 Stop Date: 05/29/23 Status: Ordered Quantity: 30.0 Unit: tablet Repeat number: 1 NovoLOG FlexPen 100 units/mL injectable solution See Instructions, 16u sc qam 9u sc noon 11u sc before supper use 3x/day before meals, 0 Refills, Maintenance, 04/25/23 3:03:00 PM EST, Partial fill upon patient request if the prescription is for a schedule II opioid drug. Start Date: 04/25/23 Status: Ordered Repeat number: 1 Pen Grandin, 30 G x 8 mm BD Ultra Fine II See Instructions, # 100 each, Refills 5, Tot. Refills 5, Maintenance, use as directed for Type 2 Diabetes Mellitus. 4x/day, 07/18/21 9:38:00 AM EDT, Supply, 168, cm, 07/18/21 5:40:00 EDT, Height, 79.8, kg, 07/16/21 15:56:00 EDT, Dry Weight Start Date: 07/18/21 Stop Date: 01/14/22 Status: Ordered Quantity: 100.0 Unit: each Repeat number: 6 Refresh - solution 1 drops, Eyes, Both, [...] Quantity: 90.0 Unit: tablet Repeat number: 1 Problem List Condition Confirmation [...] Confirmed Active Peripheral vascular disease Confirmed Active Vital Signs Most recent to oldest [Reference Range]: 1 Height 168 cm (03/02/24 3:08 PM) Weight 79.83 kg (03/02/24 3:08 PM) Oxygen Saturation [94-100 %] 97 % (03/02/24 3:08 PM) Pulse Rate [55-90 bpm] 64 bpm (03/02/24 3:08 PM) Body Mass Index [18.5-24.99 kg/m2] 28.28 kg/m2 *H* (03/02/24 3:08 PM) Blood Pressure [90-138/55-84 mm Hg] 124/ 58mm Hg (03/02/24 3:08 PM) Weight Obtained Via Patient/family state d (03/02/24 3:08 PM) Social History Social History Type Response Smoking [...] MRI Safety Implantable Status Assigning Authority Unknown [id number] Unknown 06/17/26 Unknown Unknown Active Unknown Note * Ermelinda Walters: PERFORM Event Display: Patient Education/Instruction Authored Date: [id number] Ambulatory Adult Visit Summary [address] [address] Name: TONY CASTELLON : 1940?? Visit: 03/02/2024 14:26?? Ambulatory Visit Instructions ?? Your Care Team Primary Care Provider Donte Powell MD? This Visit Provider Ermelinda Painter NP Your Diagnosis PAD (peripheral artery disease) Vitals Signs Pulse Rate: 64 bpm Height: 168 cm Systolic Blood Pressure: 124 mm Hg Weight: 79.83 kg Diastolic Blood Pressure: 58 mm Hg Body Mass Index:??28.28 kg/m2??High Oxygen Saturation: 97 % Body surface area: 1.93 Medications The list below reflects the information in our records and provided by you today along with any changes made during this visit. Please continue your medications until treatment is completed or stopped by your provider. If this is different from the information you have or there are other questions,please contact the prescribing provider. What How Much When Instructions Unchanged amiODARONE (amiodarone 200 mg oral tablet) 200 Milligram Oral Twice a day Duration: 30 Days Unchanged apixaban (Eliquis 2.5 mg oral tablet) 1 tab(s) Oral Twice a day Unchanged Aspirin (aspirin 81 mg oral tablet, chewable) 81 Milligram Oral Daily Duration: 30 Days Unchanged Atorvastatin (atorvastatin 40 mg oral tablet) 1 tab(s) Oral Daily Unchanged Betamethasone Topical (betamethasone topical dipropionate 0.05% lotion) 1 sunitha Topically Twice a day Unchanged Cyanocobalamin (Vitamin B12 1000 mcg oral tablet) 1 tab(s) Oral Daily Unchanged Durable Medical Equipment (Pen Grandin, 30 G x 8 mm BD Ultra Fine II) See instructions Duration: 30 Days use as directed for Type 2 Diabetes Mellitus. 4x/ day ?? Unchanged Fenofibrate (fenofibrate 54 mg oral tablet) 2 tab(s) Oral Daily in the morning Unchanged Finasteride (finasteride 5 mg oral tablet) 1 tab(s) Oral Daily at Bedtime Unchanged Fluticasone-Salmeterol (Advair Diskus 250 mcg-50 mcg inhalation powder) 1 puff(s) Inhalation Daily Unchanged Furosemide (furosemide 40 mg oral tablet) 1 tab(s) Oral Twice a day Duration: 30 Days Unchanged Insulin Aspart (NovoLOG FlexPen 100 units/ mL injectable solution) See instructions 16u sc qam 9u sc noon 11u sc before supper use 3x/ day before meals ?? Unchanged Insulin Glargine (Insulin Glargine Inj) 10 unit(s) Subcutaneous Injection Twice a day Unchanged Metoprolol (metoprolol 25 mg oral tablet) 0.5 tab(s) Oral Twice a day Duration: 30 Days Unchanged Miscellaneous Rx (CBC,BMP in 1 week) See instructions Please send results to Dr. Babak Rodriguez, thanks ?? Unchanged Ocular Lubricant (Refresh - solution) 1 Drops Both eyes Twice a day as needed for for dry eyes Unchanged Terazosin (terazosin 5 mg oral capsule) 1 capsule Oral Daily at Bedtime Medications and Immunizations Administered Medications Given During Visit No medications given during this visit.?? Allergies (NKA means No Known Allergies) Manila Oil shellfish??(lips swelling) warfarin Common Emergency Awareness Tips IS IT A [...] are strongly encouraged to quit. Please call [employer] Link at [phone] or [phone]) or log in to [email or web address] for referrals to smoking cessation programs. ?? The National Suicide Prevention Hotline is available 14/10 if you or someone you know needs to find a reason to keep living. By calling 4-332-756-[employer] (0220) you'll be connected to a skilled, trained counselor at a crisis center in your area. [facility] Portal You can view and manage your care through the patient portal or by using a health care sunitha of your choosing. [employer] is a website that allows you to securely view your medical information including your hospital discharge summary, office visit summaries, medications and follow-up visits. You can also request appointments, renew medications, and request access to your medical information using a health care sunitha of your choosing, or just ask a question. You can enroll at [email or web address] or register during your next office visit. [facility], in keeping with [facility] guidance, no longer requires face masks for [...] medical provider or home test kit. ?? Disclaimer: The information provided is of a general nature and is intended to be used in conjunction with the recommendations and advice of your health care practitioner. Every effort has been made to ensure that the information provided is accurate and complete at the time it is provided to you however, as your needs change, or, as new information becomes available, different or additional instructions may be required. ?? If you have questions, please consult with your primary care provider or pharmacist, as appropriate. This information is not intended to serve as substitution for assessment and evaluation by a qualified health care provider. If you do not have a primary care provider, you may find a [facility] provider by calling [facility] [employer] Link at [phone]. Patient Care team information Care Team Personnel Name: Marivel Sandoval Position: [facility] RN Supv Member Role: Primary Care Nurse Name: Donte Powell MD Position: S Outreach Member Role: PCP Address: [address] [place] [address]- Telecom: Name: Jana Christie RN Position: S RN Member Role: Primary Care Nurse Name: Dylon Ferguson RN Position: S RN Member Role: Primary Care Nurse Name: Claudia Martinez RN Position: [facility] RN Member Role: Primary Care Nurse Name: Ketty Disla RN Position: [facility] RN Member Role: Primary Care Nurse Name: Abraham Ashley RN Position: [facility] AMB Nurse Member Role: Primary Care Nurse Name: Cleopatra Perez RN Position: [facility] RN Member Role: Primary Care Nurse Name: Nelson Potter Jr, RN Position: [facility] ED RN W/OE and Tasks Member Role: Primary Care Nurse Name: Casper Landon RN Position: [facility] RN Member Role: Primary Care Nurse Name: Luz Moe RN Position: [facility] RN Member Role: Primary Care Nurse Name: Yu Mae RN Position: [facility] RN Member Role: Primary Care Nurse Name: Carolina Booth RN Position: [facility] SN RN Member Role: Primary Care Nurse Name: Zeny Camargo RN Position: [facility] RN Member Role: Primary Care Nurse Care Team Related Persons Name: SOREN LOPEZ Name: KARIN CASTELLON Name: MYA CASTELLON Insurance Providers Guarantor name: TONY RAVINDER Health Plan Information #: 1 Payer: MEDICARE PART B OUTPT Member Number: [id number] Policy Number: NA Group Number: NA Health Plan Information #: 2 Payer: FOR LIFE MCR A ONLY Member Number: [id number] Policy Number: NA Group Number: NA
--- OUTSIDE RECORDS SUMMARY | 2024-03-26 16:25 | XMS_ITS | Encounter Summary ---
Author Name [facility] [facility] [place] Address [address] [place] [id number] Care Team Providers Care Operations Lead Name Role Phone AJAY APODACA Primary Care Provider Unavaila ble Insurance Providers: All historical and current Section Date Range: From patient's date of to the date document was created. This section includes the names of all active insurance providers for the patient. Insurance Provider Type of Coverage Plan Name Start of Policy Coverage End of Policy Coverage Group Number Member ID Insurance Provider's Telephone Number Policy Gerber's Name Patient's Relationship to Policy Gerber MEDICARE (WNR) MEDICARE (M) PART A Nov 22, 2006 PART A [id number] [phone] TONY CASTELLON PATIENT MEDICARE (WNR) MEDICARE (M) PART B Nov 22, 2006 PART B [id number] [phone] TONY CASTELLON PATIENT MEDICARE (WNR) MEDICARE (M) PART A Nov 22, 2006 PART A [id number] TONY CASTELLON PATIENT MEDICARE (WNR) MEDICARE (M) PART B Nov 22, 2006 PART B [id number] TONY CASTELLON PATIENT FOR LIFE TFL* Apr 20, 2014 [id number] SUKHJINDER CASTELLON JR PATIENT Selected Encounter This section includes the information on record at [place] for the Encounter. Date/Time Encounter Type Encounter Description Reason Provider Source May 06, 2023 02:30 PM [facility] NAIL 6 OR MORE PODIATRY ICD-10-CM E11.8 Type 2 diabetes mellitus with unspecified complications KEAGAN MORTON Stephie [facility] Encounter Template Text not used by [place] Assessments - Encounter Diagnoses This section includes the primary and secondary diagnoses documented for the Encounter. Date/Time Primary/Secondary Diagnosis Diagnosis Name Provider Source May 06, 2023 02:42 PM PRIMARY Type 2 diabetes mellitus with unspecified complications KEAGAN MORTON Stephie [facility] [place] [facility] May 06, 2023 02:42 PM SECONDARY Nail dystrophy [facility]AN [facility]ORTON [facility] Plan of Treatment: Future Appointments (+ 6 months) and Future Tests (+/- 45 days) The Plan of Treatment section includes future care activities for the patient from all [place] treatmentfacilities. This section includes future appointments and future orders which are active, pending or scheduled. Future Appointments This section includes appointments that were scheduled to occur 6 months from the date of the Encounter, up to a maximum of 20 appointments. The data comes from all [place] treatment facilities. Appointment Date/Time Appointment Type Appointme nt Facility Name May 07, 2023 01:30 PM AMBULATORY - MEDICINE [place] [facility] [place] [facility] Jun 25, 2023 01:00 PM AMBULATORY MEDICINE [place] [facility] [place] [facility] August 13, 2023 10:00 AM AMBULATORY MEDICINE [place] C [facility] [place] [facility] Sep 04, 2023 11:00 AM AMBULATORY MEDICINE [facility] [place] [facility] Sep 23, 2023 09:00 AM [facility] Lab Results: +/- 30 days of the encounter This section includes the Chemistry and Hematology Lab Results on record with [place] for the patient. Radiology Reports and Pathology Reports are provided separately, in subsequent sections. Lab Results This section contains the Chemistry/Hematology Results that were resulted 30 days before or 30 daysafter the date of the Encounter. Date/Time Source Result Type Result - Unit Interpretation Reference Range Comment May 05, 2023 07:48 AM [facility] LIPID PANEL FASTING Specimen Type: SERUM No comment entered. Ordering Provider: MIAH BUTTS Report Released Date/Time: Jan 05, 2023 07:44 PM Reporting Lab: [facility] [address] [facility] [address] Performing Lab: [facility] [address] [facility] [address] CHOLESTEROL 86 mg/dL TRIGLYCERIDE 74 mg/dL 0-150 LDL calculated 40 mg/dL 0-129 CHOL/HDL 2.8 HDL CHOLESTEROL 31 mg/dL L 40-60 May 05, 2023 07:48 AM [facility] HEMOGLOBIN A1C PANEL Specimen Type: BLOOD Comment: Values obtained from A1C measurements can vary. For atypical A1C assays, a reported value of 7.0 could actually be between 6.72 and 7.28 if measured by a reference method. A reported value of 9.0 could actually be between 8.73 and 9.27. Ref: http://www.ngs p.org/CAPdata. asp Ordering Provider: MIAH BUTTS Report Released Date/Time: Jan 05, 2023 07:44 PM Reporting Lab: [facility] [address] [facility] [address] Performing Lab: [address] [address] HEMOGLOBIN A1C 7.2 H 4.0-5.6 May 05, 2023 07:48 AM [facility] MICROALBUMIN CREATININE RATIO PANEL Specimen Type: URINE No comment entered. Ordering Provider: MIAH BUTTS Report Released Date/Time: Jan 05, 2023 07:44 PM Reporting Lab: [facility] [address] [facility] [address] Performing Lab: [address] [address] MICROALBUMIN/C REATININE RATIO canc mg/g 0-29.9 MICROALBUMIN,Q UANTITATIVE < 0.5 mg/dL RR UNAVAIL CREATININE URINE 37.09 mg/dL May 05, 2023 07:48 AM [facility] BASIC METABOLIC PANEL (fasting) Specimen Type: SERUM No comment entered. Ordering Provider: BUTTS,MIAH Report Released Date/Time: Jan 05, 2023 07:44 PM Reporting Lab: [place] [facility] [place] [facility] [address] [facility] [address] Performing Lab: [place] [facility] [place] [facility] [address] [facility] [address] UREA NITROGEN 17 mg/dL 7-25 GLUCOSE 148 mg/dL H 65-100 SODIUM 140 mmol/L 135-145 POTASSIUM 4.4 mmol/L 3.5-5.0 CHLORIDE 110 mmol/L 100-110 CO2 21 meq/L 20-30 CREATININE, Serum 1.45 mg/dL H 0.50-1.40 eGFR(CKD-EPI 2020) 48 mL/min L >60 Social History: Smoking Status (Most current) and Tobacco Use (All prior to encounter date) This section includes the most current, and the historical, smoking and tobacco- related health factors from the [place] facility where the Encounter took place. Current Smoking Status This section includes the most current smoking, or tobacco-related health factor, from the [place] facility where the Encounter took place. Date/Time Current Smoking Status Comment Facil it Dec 24, 2022 10:30 AM VA-TOBACCO QUIT 15 YRS OR MORE [facility] Tobacco Use History This section includes a history of the smoking, or tobacco-related health factors, that were collected on or before the date of the Encounter. The data comes from the [place] facility where the Encounter took place. Date/Time Smoking Status/Tobac co Use Comment Facility Dec 24, 2022 10:30 AM VA-TOBACCO QUIT 15 YRS OR MORE [place] [facility] [place] [facility] Dec 24, 2021 10:00 AM VA-TOBACCO FORMER USER [facility] [place] [facility] Dec 24, 2021 10:00 AM VA-TOBACCO QUIT 5 TO < 15 YRS [facility] [place] [facility] Dec 14, 2020 08:30 AM VA-TOBACCO FORMER USER [facility] [place] [facility] Dec 14, 2020 08:30 AM VA-TOBACCO QUIT 5 TO < 15 YRS [facility] [place] [facility] Nov 15, 2019 11:00 AM VA-TOBACCO FORMER USER [place] [facility] [place] [facility] Nov 15, 2019 11:00 AM VA-TOBACCO QUIT 5 TO < 15 YRS [facility] Oct 20, 2017 08:19 AM VA-TOBACCO FORMER USER [facility] Oct 20, 2017 08:19 AM NE-TOBACCO QUIT 5 TO < 15 YRS [facility] Sep 04, 2017 11:09 AM QUIT TOBACCO USE > 7 YEARS AGO [facility] Oct 16, 2016 09:08 AM QUIT TOBACCO USE > 7 YEARS AGO [facility] Feb 20, 2015 10:58 AM QUIT TOBACCO USE > 7 YEARS AGO quit 2009-cigarettes and cigars for 45 years [facility] Advance Directives: All historical and current Section Date Range: From patient's date of to the date document was created. This section includes ALL of a patient's completed or amended [place] Advance and Rescinded Directives. The entries below indicate that a directive exists for the patient, but an actual copy is not included with this document. The data comes from all [place] facilities. Date Advance Directives Provider Source Mar 23, 2014 ADVANCE DIRECTIVE ROSALINDA SHELBY [facility] Encounter Notes: All associated encounter notes This section contains the clinical notes associated to the Encounter. Date/Time Encounter Note(s) Provider Source May 06, 2023 02:39 PM PODIATRY NOTE: LOCAL TITLE: PODIATRY NOTE STANDARD TITLE: PODIATRY NOTE DATE OF NOTE: MAY 06, 2023@14:39 ENTRY DATE: MAY 06, 2023@14:40:03 AUTHOR: MARINO MORTON COSIGNER: URGENCY: STATUS: COMPLETED S) 82 y/o male diabetic seen for diabetic foot evaluation and callous. pain level 1-2 Last seen 4+ mos ago HbA1c was 7.2% in Apr 2023 Has had vein procedures on left side performed. PMHx: 1. Type 2 diabetes 2. Atrial fibrillation 3. Hyperlipidemia 4. BPH 5. Peripheral vascular disease patient is being followed by vascular surgery 6. History of T-cell lymphoma 7. Skin cancer Allergies: NKA O) Integumenatry: nails mildly elongated, incurvated skin intact PV: DP 1/4, PT 0/4 B/L, cft 2 sec, no hair growth, no edema Sensory: 5.07 monofilament 10/10, poor vibration sense, has left foot numbness, no tingling, p/n MSK: ROM wnl, strength wnl, mild asympt. bunion left, mild toe contractures pt wearing diabetic shoes, fit well A) DM low/ mod risk callouses, bunion P) exam nail debridement 1-5 B/L discussed diabetic foot care skin softener daily as needed rtc 3 -4 mos Active Outpatient Medications (including Supplies): Active Outpatient Medications Status 1) APIXABAN 5MG TAB TAKE ONE-HALF TABLET BY MOUTH TWICE ACTIVE DAILY FOR PREVENTION OF BLOOD CLOTS 2) CARBOXYMETHYLCELLULOSE NA 0.5% OPH SOLN INSTILL 1 ACTIVE DROP INTO EACH EYE TWICE DAILY 3) EMPAGLIFLOZIN 25MG TAB TAKE ONE-HALF TABLET BY MOUTH ACTIVE ONCE DAILY 4) GLUCOSE 4GM CHEW TAB CHEW THREE TO FOUR TABLETS BY ACTIVE MOUTH NEEDED FOR LOW BLOOD SUGAR BELOW 70 5) GLUCOSE SENSOR FREESTYLE LINK 2 USE 1 SENSOR ACTIVE DIRECTED EVERY 14 DAYS 6) INSULIN,ASPART(EQV-NOVLG)100UN/ ML FLXPEN INJECT 16 ACTIVE UNITS SUBCUTANEOUSLY EVERY MORNING AND INJECT 9 UNITS AT NOON AND INJECT 11 UNITS EVERY EVENING BEFORE SUPPER 7) INSULIN,GLARGINE-YFGN 100UNIT/ML PEN 3ML INJECT 19 HOLD UNITS SUBCUTANEOUSLY TWICE DAILY 8) LIDOCAINE 5% OINT APPLY LIBERAL AMOUNT TOPICALLY ACTIVE TWICE DAILY NEEDED FOR NEUROPATHY PAIN 9) LOSARTAN 50MG TAB TAKE ONE TABLET BY MOUTH ONCE DAILY ACTIVE FOR BLOOD PRESSURE/HEART Active Non-VA Medications Status 1) Non-VA ASPIRIN 81MG EC TAB 81MG BY MOUTH EVERY DAY ACTIVE 2) Non-VA ATORVASTATIN CALCIUM 20MG TAB 10MG BY MOUTH ACTIVE 3) Non-VA CHOLECALCIF 50MCG (D3-2,000UNIT) TAB 50MCG BY ACTIVE MOUTH ONCE DAILY 4) Non-VA FENOFIBRATE 54MG TAB 108MG BY MOUTH ONCE DAILY ACTIVE 5) Non-VA FERROUS GLUCONATE 324MG TAB 324MG BY MOUTH ACTIVE ONCE DAILY 6) Non-VA FINASTERIDE 5MG TAB 5MG BY MOUTH ONCE DAILY ACTIVE 7) Non-VA FLUTICAS 500/SALMETEROL 50 INHL DISK 60 1 PUFF ACTIVE BY MOUTH ONCE DAILY 8) Non-VA METOPROLOL SUCCINATE TAB,SA 12.5MG BY MOUTH ACTIVE EVERY DAY 9) Non-VA TERAZOSIN HCL 5MG CAP 5MG BY MOUTH ONCE DAILY ACTIVE 18 Total Medications Podiatryrelated medications reviewed /jus/ MARINO MORTON DPM [employer] ENGINEER Signed: 05/06/2023 14:44 MARINO MORTON [facility] May 05, 2023 12:44 PM TELEPHONE ENCOUNTER NOTE: LOCAL TITLE: TELEPHONE NOTE/SPECIALTY CLINIC STANDARD TITLE: TELEPHONE ENCOUNTER NOTE DATE OF NOTE: MAY 05, 2023@12:44 ENTRY DATE: MAY 05, 2023@12:44:59 AUTHOR: KALPANA NICOLE EXP COSIGNER: URGENCY: STATUS: COMPLETED AMSA LVM for Reminding of podiatry appt on 05/06/23. Asked if unable to keep appt to call and Reschedule- [phone] Ext: [phone]- location given. /jus/ KALPANA NICOLE LEAD GLASS LATHE OPERATOR Signed: 05/05/2023 12:45 Receipt Acknowledged By: 05/06/2023 09:24 /jus/ SUSAN JOHN SUPERVISORY GLASS LATHE OPERATOR KALPANA NICOLE [facility]
--- OUTSIDE RECORDS SUMMARY | 2024-03-26 16:25 | XMS_ITS ---
Author Name [facility] [place] Organization [facility] [place] Address [address] [place] [address] Care Team Providers Care Sales Project Coordinator Name Role Phone AJAY APODACA Primary Care [...] PART A Nov 22, 2006 PART A [id number] [phone] TONY CASTELLON PATIENT MEDICARE (WNR) MEDICARE (M) PART B Nov 22, 2006 PART B [id number] TONY CASTELLON PATIENT MEDICARE (WNR) MEDICARE (M) PART B Nov 22, 2006 PART B [id number] TONY CASTELLON PATIENT MEDICARE (WNR) MEDICARE (M) PART A Nov 22, 2006 PART A [id number] TONY CASTELLON PATIENT FOR LIFE TFL* Apr 20, 2014 [id number] SUKHJINDER CASTELLON JR PATIENT Selected Encounter This section includes the information on record at [place] for the Encounter. Date/Time Encounter Type Encounter Description Reason Pro vider Source Apr 28, 2023 12:43 PM Outpatient Encounter ENDOCRINOLOGY IHE Encounter Template Text not used by [place] Plan of Treatment: Future Appointments (+ 6 months) and Future Tests (+/- 45 days) The Plan of Treatment section includes future care activities for the patient [facility] [place] [facility] This section includes future appointments and future orders which are active, pending or scheduled. Future Appointments This section includes appointments that were scheduled to occur 6 months from the date of the Encounter, up to a maximum of 20 appointments. The data comes from all [place] treatment facilities. Appointment Date/Time Appointment Type Appointme nt Facility Name May 06, 2023 02:30 PM AMBULATORY - MEDICINE [place] [place] [facility] May 07, 2023 01:30 PM AMBULATORY MEDICINE [place] [place] [facility] Jun 25, 2023 01:00 PM AMBULATORY - MEDICINE [place] [place] [facility] August 13, 2023 10:00 AM AMBULATORY - MEDICINE [place] [facility] [place] [facility] Sep 04, 2023 11:00 AM AMBULATORY - MEDICINE [place] [facility] [place] [facility] Sep 23, 2023 09:00 AM AMBULATORY - MEDICINE [place] [facility] [facility] Lab Results: +/- 30 days of the encounter This section includes the Chemistry and Hematology Lab Results on record with [place] for the patient. Radiology Reports and Pathology Reports are provided separately, in subsequent sections. Lab Results This section contains the Chemistry/Hematology Results that were resulted 30 days before or 30 daysafter the date of the Encounter. Date/Time Source Result Type Result - Unit Interpretation Reference Range Comment May 05, 2023 07:48 AM [facility] LIPID PANEL FASTING Specimen Type: SERUM No comment entered. Ordering Provider: MIAH BUTTS Report Released Date/Time: Jan 05, 2023 07:44 PM Reporting Lab: [facility] [address] [facility] [address] Performing Lab: [address] [address] CHOLESTEROL 86 mg/dL TRIGLYCERIDE 74 mg/dL 0-150 LDL calculated 40 mg/dL 0-129 CHOL/HDL 2.8 HDL CHOLESTEROL 31 mg/dL L 40-60 May 05, 2023 07:48 AM [facility] MICROALBUMIN CREATININE RATIO PANEL Specimen Type: URINE No comment entered. Ordering Provider: MIAH BUTTS Report Released Date/Time: Jan 05, 2023 07:44 PM Reporting Lab: [facility] [address] [facility] [address] Performing Lab: [address] [address] MICROALBUMIN/C REATININE RATIO canc mg/g 0-29.9 MICROALBUMIN,Q UANTITATIVE < 0.5 mg/dL RR UNAVAIL CREATININE URINE 37.09 mg/dL May 05, 2023 07:48 AM [facility] HEMOGLOBIN A1C PANEL Specimen Type: BLOOD Comment: [...] Jan 05, 2023 07:44 PM Reporting Lab: [address] [address] Performing Lab: [address] [address] HEMOGLOBIN A1C 7.2 H 4.0-5.6 May 05, 2023 07:48 AM [facility] BASIC METABOLIC PANEL (fasting) Specimen Type: SERUM No comment entered. Ordering Provider: MIAH BUTTS Report Released Date/Time: Jan 05, 2023 07:44 PM Reporting Lab: [address] [address] Performing Lab: [address] [address] UREA NITROGEN 17 mg/dL 7-25 GLUCOSE 148 [...] and tobacco- related health factors from the [place] facility where the Encounter took place. Current Smoking Status This section includes the most current smoking, or tobacco-related health factor, from the [place] facility where the Encounter took place. Date/Time Current Smoking Status Comment [facility] it Dec 24, 2022 10:30 AM VA-TOBACCO FORMER USER [place] [facility] [place] [facility] Tobacco Use History This section includes a history of the smoking, or tobacco-related health factors, that were collected on or before the date of the Encounter. The data comes from the [place] facility where the Encounter took place. Date/Time Smoking Status/Tobac co Use Comment Facility Dec 24, 2022 10:30 AM VA-TOBACCO QUIT 15 YRS OR MORE [facility] [place] [facility] Dec 24, 2021 10:00 AM VA-TOBACCO FORMER USER [place] [facility] [place] [facility] Dec 24, 2021 10:00 AM VA-TOBACCO QUIT 5 TO < 15 YRS [facility] [place] [facility] Dec 14, 2020 08:30 AM VA-TOBACCO FORMER USER [place] [facility] [place] [facility] Dec 14, 2020 08:30 AM VA-TOBACCO QUIT 5 TO < 15 YRS [facility] [place] [facility] Nov 15, 2019 11:00 AM VA-TOBACCO FORMER USER [place] [facility] [place] [facility] Nov 15, 2019 11:00 AM VA-TOBACCO QUIT 5 TO < 15 YRS [facility] [place] [facility] Oct 20, 2017 08:19 AM VA-TOBACCO FORMER USER [facility] [place] [facility] Oct 20, 2017 08:19 AM VA-TOBACCO QUIT 5 TO < 15 YRS [facility] [place] [facility] Sep 04, 2017 11:09 AM QUIT TOBACCO USE > 7 YEARS AGO [facility] [place] [facility] Oct 16, 2016 09:08 AM QUIT TOBACCO USE > 7 YEARS AGO [facility] Feb 20, 2015 10:58 AM QUIT TOBACCO USE > 7 YEARS AGO quit 2009-cigarettes and cigars for 45 years [facility] Advance Directives: All historical and current Section Date Range: From patient's date of to the date document was created. This section includes ALL of a patient's completed or amended [place] Advance and Rescinded Directives. The entries below indicate that a directive exists for the patient, but an actual copy is not included with this document. The data comes from all [place] facilities. Date Advance Directives Provider Source Mar 23, 2014 ADVANCE DIRECTIVE ROSALINDA SHELBY [facility] Encounter Notes: All associated encounter notes This section contains the clinical notes associated to the Encounter. Date/Time Encounter Note(s) Provider Source Apr 28, 2023 12:43 PM LETTERS: LOCAL TITLE: PATIENT LETTER (B) STANDARD TITLE: LETTERS DATE OF NOTE: APR 28, 2023@12:43 ENTRY DATE: APR 28, 2023@12:43:35 AUTHOR: SEAN ESQUIVEL COSIGNER: URGENCY: STATUS: COMPLETED Attempt to contact letter: [facility] Toll Free Number [facility] scheduling can be reached at ext. [phone] [facility]- ext. [phone] [facility]- ext. [phone] [facility]- ext. [phone] APR 28, 2023 TONY CASTELLON [address] [place] [address] [address] [place], [place] [address] Dear TONY CASTELLON JR Thank you for [facility] primary choice for health care. As a partner in your health care, we are contacting you in writing since we have been unsuccessful in our attempts to reach you to date. We want to assure you we are doing everything possible to schedule Veterans for their VA medical care appointments. Our records indicate you are due for an appointment in endocrine. If you would like to be seen, please contact [facility] at ext. [phone] to schedule an appointment. Thank you for your service to our nation, and we look forward to hearing from you soon. Sincerely, [facility] [address] [facility] [address] [place] [address] [place] [address] [phone] [facility]patient [facility] [address] [facility] [address] [place] [address] [place] [address] ext. [phone] [facility] [address] [address] [place] [address] ext. [phone] SEAN ESQUIVEL [place] [facility]
--- OUTSIDE RECORDS SUMMARY | 2024-03-26 16:25 | XMS_ITS | Encounter Summary ---
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 Date/Time Encounter Type Encounter Description Reason Pro vider Source Jun 11, 2023 11:19 AM Outpatient Encounter PRIMARY CARE/MEDICINE IHE Encounter Template Text not used by ME Plan of Treatment: Future Appointments (+ 6 months) and Future Tests (+/- 45 days) The Plan of Treatment section includes future care activities for the patient from all [facility]. This section includes future appointments and future orders which are active, pending or scheduled. Future Appointments This section includes appointments that were scheduled to occur 6 months from the date of the Encounter, up to a maximum of 20 appointments. The data comes from all [place] treatment facilities. Appointment Date/Time Appointment Type Appointme nt Facility Name Jun 25, 2023 01:00 PM AMBULATORY - MEDICINE [place] [facility] [place] [facility] August 13, 2023 10:00 AM AMBULATORY MEDICINE [place] [facility] [place] [facility] Sep 04, 2023 11:00 AM AMBULATORY - MEDICINE [place] [facility] [place] [facility] Sep 23, 2023 09:00 AM AMBULATORY - MEDICINE [place] [facility] [place] [facility] Nov 13, 2023 09:30 AM AMBULATORY MEDICINE [facility] [place] [facility] Social History: Smoking Status (Most current) and Tobacco Use (All prior to encounter date) This section includes the most current, and the historical, smoking and tobacco- related health factors from the [place] facility where the Encounter took place. Current Smoking Status This section includes the most current smoking, or tobacco-related health factor, from the [place] facility where the Encounter took place. Date/Time Current Smoking Status Comment [facility] it Dec 24, 2022 10:30 AM VA-TOBACCO FORMER USER [place] [facility] [place] [facility] Tobacco Use History This section includes a history of the smoking, or tobacco-related health factors, that were collected on or before the date of the Encounter. The data comes from the [place] facility where the Encounter took place. Date/Time Smoking Status/Tobac co Use Comment Facility Dec 24, 2022 10:30 AM ME-TOBACCO QUIT 15 YRS OR MORE [place] [facility] [place] [facility] Dec 24, 2021 10:00 AM VA-TOBACCO FORMER USER [place] [facility] [place] [facility] Dec 24, 2021 10:00 AM VA-TOBACCO QUIT 5 TO < 15 YRS [place] [facility] [place] [facility] Dec 14, 2020 08:30 AM VA-TOBACCO FORMER USER [place] [facility] [place] [facility] Dec 14, 2020 08:30 AM VA-TOBACCO QUIT 5 TO < 15 YRS [place] [facility] [place] [facility] Nov 15, 2019 11:00 AM VA-TOBACCO FORMER USER [place] [facility] [facility] Nov 15, 2019 11:00 AM VA-TOBACCO QUIT 5 TO < 15 YRS [place] [facility] [place] [facility] Oct 20, 2017 08:19 AM VA-TOBACCO FORMER USER [place] [facility] [facility] Oct 20, 2017 08:19 AM VA-TOBACCO QUIT 5 TO < 15 YRS [place] [facility] [place] [place] [facility] Sep 04, 2017 11:09 AM QUIT TOBACCO USE > 7 YEARS AGO [place] [facility] [place] [facility] Oct 16, 2016 09:08 AM QUIT TOBACCO USE > 7 YEARS AGO [place] [facility] [place] [facility] Feb 20, 2015 10:58 AM QUIT TOBACCO USE > 7 YEARS AGO quit 2009-cigarettes and cigars for [facility] Advance Directives: All historical and current Section Date Range: From patient's date of to the date document was created. This section includes ALL of a patient's completed or amended [place] Advance and Rescinded Directives. The entries below indicate that a directive exists for the patient, but an actual copy is not included with this document. The data comes from all [place] facilities. Date Advance Directives Provider Source Mar 23, 2014 ADVANCE DIRECTIVE [facility] Encounter Notes: All associated encounter notes This section contains the clinical notes associated to the Encounter. Date/Time Encounter Note(s) Provider Source Jun 11, 2023 11:19 AM ADMINISTRATIVE NOT E: LOCAL TITLE: ADMINISTRATIVE NOTE STANDARD TITLE: ADMINISTRATIVE NOTE DATE OF NOTE: JUN 11, 2023@11:19 ENTRY DATE: JUN 11, 2023@11:19:21 AUTHOR: ERICK LYNN EXP COSIGNER: URGENCY: STATUS: COMPLETED Reminder call for your upcoming Primary Care Appointment and the need for preparations prior to your upcoming appt. [X] Location in [facility] [X] Fasting labs [ ] Lab work within 30 days [ ] Urine [ ] No Preparation Action taken: [ ] Called , left voice message [ ] Called , unable to leave voice mail [X] Spoke to /restorative care technician to remind them of upcoming appt/preparations Upcoming Appointments: 06/25/2023 13:00 CWM/NO/PACT 1 07/30/2023 14:00 NHM/OPTOMETRY/SHELLEY/ 08/13/2023 10:00 NHM/ENDOCRINE 09/04/2023 11:00 CWM/NO/PODIATRY/NAIL /es/ ERICK LYNN ADVANCED ASSISTANT GUEST SERVICES MANAGER Signed: 06/11/2023 11:19 ERICK LYNN [place] [facility]
--- OUTSIDE RECORDS SUMMARY | 2024-03-26 16:25 | XMS_ITS | Encounter Summary ---
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 Date/Time Encounter Type Encounter Description Reason Provider Source Mar 31, 2023 11:20 AM QNHP OL DIG ASSMT&MGMT 5-10 CLINICAL PHARMACY ICD-10-CM Z04.89 Encounter for examination and observation for oth reasons SABAS ZAMUDIO IHE Encounter Template Text not used by [place] Assessments - Encounter Diagnoses This section includes the primary and secondary diagnoses documented for the Encounter. Date/Time Primary/Secondary Diagnosis Diagnosis Name Provider Source Mar 31, 2023 11:49 AM PRIMARY Encounter for examination and observation for oth reasons SABAS ZAMUDIO [facility] Plan of Treatment: Future Appointments (+ 6 months) and Future Tests (+/- 45 days) The Plan of Treatment section includes future care activities for the patient from all [place] [facility]. This section includes future appointments and future orders which are active, pending or scheduled. Future Appointments This section includes appointments that were scheduled to occur 6 months from the date of the Encounter, up to a maximum of 20 appointments. The data comes from all [place] treatment facilities. Appointment Date/Time Appointment Type Appointme nt Facility Name May 06, 2023 02:30 PM AMBULATORY - MEDICINE [facility] May 07, 2023 01:30 PM AMBULATORY - MEDICINE [facility] [place] [facility] Jun 25, 2023 01:00 PM AMBULATORY - MEDICINE [facility] [place] [facility] August 13, 2023 10:00 AM AMBULATORY - MEDICINE [facility] [place] [facility] Sep 04, 2023 11:00 AM AMBULATORY - MEDICINE [facility] [place] [facility] Sep 23, 2023 09:00 AM AMBULATORY - MEDICINE [facility] [place] [facility] Social History: Smoking Status (Most current) and Tobacco Use (All prior to encounter date) This section includes the most current, and the historical, smoking and tobacco- related health factors from the [place] facility where the Encounter took place. Current Smoking Status This section includes the most current smoking, or tobacco-related health factor, from the [place] facility where the Encounter took place. Date/Time Current Smoking Status Comment Facil ity Dec 24, 2022 10:30 AM [place]-TOBACCO QUIT 15 YRS OR MORE [facility] Tobacco Use History This section includes a history of the smoking, or tobacco-related health factors, that were collected on or before the date of the Encounter. The data comes from the [place] facility where the Encounter took place. Date/Time Smoking Status/Tobac co Use Comment Facility Dec 24, 2022 10:30 AM VA-TOBACCO QUIT 15 YRS OR MORE [place] [facility] [place] [facility] Dec 24, 2021 10:00 AM VA-TOBACCO FORMER USER [place] [facility] [place] [facility] Dec 24, 2021 10:00 AM VA-TOBACCO QUIT 5 TO < 15 YRS [place] [facility] [place] [facility] Dec 14, 2020 08:30 AM VA-TOBACCO FORMER USER [place] [facility] [place] [facility] Dec 14, 2020 08:30 AM VA-TOBACCO QUIT 5 TO < 15 YRS [place] [facility] [place] [facility] Nov 15, 2019 11:00 AM VA-TOBACCO FORMER USER [place] [facility] [place] [facility] Nov 15, 2019 11:00 AM VA-TOBACCO QUIT 5 TO < 15 YRS [place] [facility] [place] [facility] Oct 20, 2017 08:19 AM VA-TOBACCO FORMER USER [place] [facility] [place] [facility] Oct 20, 2017 08:19 AM VA-TOBACCO QUIT 5 TO < 15 YRS [place] [facility] [place] [facility] Sep 04, 2017 11:09 AM QUIT TOBACCO USE > 7 YEARS AGO [place] [facility] [place] [facility] Oct 16, 2016 09:08 AM QUIT TOBACCO USE > 7 YEARS AGO [place] [facility] [place] [facility] Feb 20, 2015 10:58 AM QUIT TOBACCO USE > 7 YEARS AGO quit 2009-cigarettes and cigars for 45 years [place] [facility] [place] [facility] Advance Directives: All historical and current Section Date Range: From patient's date of to the date document was created. This section includes ALL of a patient's completed or amended [place] Advance and Rescinded Directives. The entries below indicate that a directive exists for the patient, but an actual copy is not included with this document. The data comes from all [place] facilities. Date Advance Directives Provider Source Mar 23, 2014 ADVANCE DIRECTIVE ROSALINDA SHELBY [place] [facility] [place] [facility] Encounter Notes: All associated encounter notes This section contains the clinical notes associated to the Encounter. Date/Time Encounter Note(s) Provider Source Mar 31, 2023 11:20 AM PHARMACY MEDICATION MGT NOTE: LOCAL TITLE: PHARMACY ANTICOAGULATION NOTE STANDARD TITLE: PHARMACY MEDICATION MGT NOTE DATE OF NOTE: MAR 31, 2023@11:20 ENTRY DATE: MAR 31, 2023@11:20:57 AUTHOR: JAMES FITCH EXP COSIGNER: URGENCY: STATUS: COMPLETED PHARMACY ANTICOAGULATION NOTE Has ADDENDA ANTICOAGULATION DOAC MONITORING NOTE SUBJECTIVE: Patient identified through the DOAC population Management Tool based on the following criteria: [ ] Dosing Issue [ ] Critical Drug Interaction [ ] Cancer Treatment [ ] Active NSAID [ ] Labs Overdue [ ] Prosthetic Valve Replacement [ ] Notable Lab Value [ X ] Overdue for Refill [ ] Other: Comments: Pt flagged for being overdue for refill. Rx last filled apixaban x30 days 01/06/23 OBJECTIVE: Indication for anticoagulation: [ X ] Atrial fibrilation [ ] Atrial flutter [ ] VTE (DVT or PE) [ ] Post-op DVT prophylaxis [ ] Other: Most recent lab values include the following: HGB: HGB Collection DT Specimen Test Name Result Units Ref Range 06/19/2022 07:35 BLOOD HGB 12.1 L g/dL 12.8 - 17 PLT: WBC Collection DT Specimen Test Name Result Units Ref Range 06/19/2022 07:35 BLOOD WBC 5.49 K/cmm 4.50 - 11.00 Liver Function Tests No data available for: AST ALT ALKALINE PHOSPHATASE ALBUMIN BILIRUBIN, TOTAL LDH PROTEIN,TOTAL HEIGHT: 66 in [167.6 cm] (01/09/2023 14:16) WEIGHT: 180 lb [81.65 kg] (01/09/2023 14:16) BMI: BMI: 29.1 CREATININE-EGFR 01/03/23 09:54 1.34 10/01/22 09:40 1.46 H 06/19/22 07:36 1.28 CRCL IBW: CrCl(est): 39.0 mL/min (Creat:1.34 01/03/23) CRCL ACT: 50.03 mL/min CRCL ADJ: 39.0 mL/min (01/03/23) ASSESSMENT: refill overdue Action required? [ X ] Yes [ ] No Comments: Will mail refill reminder letter and dismiss flag. PLAN: [ ] No action required, dismiss flag [ X ] Will intervene: [ X ] Patient education via phone/letter [ ] Schedule phone/[id number] follow up [ ] Lab ordered [ ] Discontinue interacting medication [ ] Discontinue DOAC [ ] Change to alternative DOAC [ ] Change DOAC dose [ ] Notify PCP [ ] Consult cardiology/hematology [ ] Other: Time spent: 5 min /jus/ JAMES FITCH CPHT Clinical Battery Inspector Signed: 03/31/2023 11:21 Receipt Acknowledged By: 03/31/2023 11:49 /tyree Zamudio PharmD, [facility] Clinical Brick Molder Hand 03/31/2023 ADDENDUM STATUS: COMPLETED Above case reviewed as entered by [facility] Java Web Engineer. Agree with current assessment and plan of care for this patient's anticoagulation management as noted. /tyree Zamudio PharmD, [facility] Clinical Brick Molder Hand Signed: 03/31/2023 11:49 04/03/2023 ADDENDUM STATUS: COMPLETED Patient called - he has plenty of medication left, he attributes it to dosage changes. /tyree JUNIOR Clinical Battery Inspector Signed: 04/03/2023 14:24 JAMES FITCH [facility]
--- OUTSIDE RECORDS SUMMARY | 2024-03-26 16:25 | XMS_ITS | Encounter Summary ---
Author Name [place] Address [address] [place] [id number] Care Team Providers Care Picture Frames Inspector Name Role Phone AJAY APODACA Primary Care [...] PART A Nov 22, 2006 PART A [id number] TONY CASTELLON PATIENT MEDICARE (WNR) MEDICARE (M) PART B Nov 22, 2006 PART B [id number] TONY CASTELLON PATIENT MEDICARE (WNR) MEDICARE (M) PART A Nov 22, 2006 PART A [id number] TONY CASTELLON PATIENT MEDICARE (WNR) MEDICARE (M) PART B Nov 22, 2006 PART B [id number] [phone] TONY CASTELLON PATIENT FOR LIFE TFL* Apr 20, 2014 [id number] [phone] SUKHJINDER CASTELLON JR PATIENT Selected Encounter This section includes the information on record at [place] for the Encounter. Date/Time Encounter Type Encounter Description Reason Provider Source May 06, 2023 01:14 PM QNHP OL DIG ASSMT&MGMT 5-10 CLINICAL PHARMACY ICD-10-CM Z79.01 FPC (current) use of anticoagulants KALEN SWARTZ [facility] Encounter Template Text not used by [place] Assessments - Encounter Diagnoses This section includes the primary and secondary diagnoses documented for the Encounter. Date/Time Primary/Secondary Diagnosis Diagnosis Name Provider Source May 06, 2023 01:26 PM PRIMARY FPC (current) use of anticoagulants KALEN SWARTZ [facility] ([id number]) May 06, 2023 01:26 PM SECONDARY Chronic atrial fibrillation, unspecified [facility] ([id number]) Plan of Treatment: Future Appointments (+ 6 [...] - MEDICINE [place] [place] [facility] Jun 25, 2023 01:00 PM AMBULATORY MEDICINE [place] [place] [facility] August 13, 2023 10:00 AM AMBULATORY MEDICINE [place] [place] [facility] Sep 04, 2023 11:00 AM AMBULATORY MEDICINE [place] [place] [facility] Sep 23, 2023 09:00 AM AMBULATORY MEDICINE [facility] [place] [facility] Lab Results: +/- 30 days of the [...] Range Comment May 05, 2023 07:48 AM [facility] MICROALBUMIN CREATININE RATIO PANEL Specimen Type: URINE No comment entered. Ordering Provider: MIAH BUTTS Report Released Date/Time: Jan 05, 2023 07:44 PM Reporting Lab: [facility] [address] [facility] [address] Performing Lab: [facility] [address] [facility] [address] MICROALBUMIN/C REATININE RATIO canc mg/g 0-29.9 MICROALBUMIN,Q UANTITATIVE < 0.5 mg/dL RR UNAVAIL CREATININE URINE 37.09 mg/dL May 05, 2023 07:48 AM [facility] LIPID PANEL FASTING Specimen Type: SERUM No comment entered. Ordering Provider: MIAH BUTTS Report Released Date/Time: Jan 05, 2023 07:44 PM Reporting Lab: [facility] [address] [facility] [address] Performing Lab: [address] [address] CHOLESTEROL 86 mg/dL TRIGLYCERIDE 74 mg/dL 0-150 LDL calculated 40 mg/dL 0-129 CHOL/HDL 2.8 HDL CHOLESTEROL 31 mg/dL L 40-60 May 05, 2023 07:48 AM [facility] HEMOGLOBIN A1C PANEL Specimen Type: BLOOD [...] Jan 05, 2023 07:44 PM Reporting Lab: [address] [address] Performing Lab: [address] [address] HEMOGLOBIN A1C 7.2 H 4.0-5.6 May 05, 2023 07:48 AM [facility] BASIC METABOLIC PANEL (fasting) Specimen Type: SERUM No comment entered. Ordering Provider: MIAH BUTTS Report Released Date/Time: Jan 05, 2023 07:44 PM Reporting Lab: [facility] [address] [facility] [address] Performing Lab: [facility] [address] [facility] [address] UREA NITROGEN 17 mg/dL 7-25 GLUCOSE 148 mg/dL H 65-100 SODIUM 140 mmol/L 135-145 POTASSIUM 4.4 mmol/L 3.5-5.0 CHLORIDE 110 mmol/L 100-110 CO2 21 meq/L 20-30 CREATININE, Serum 1.45 mg/dL H 0.50-1.40 eGFR(CKD-EPI 2020) 48 mL/min L >60 Advance Directives: All historical and current Section [...] Provider Source Mar 23, 2014 ADVANCE DIRECTIVE SHELBYELLIEJOE WOODWARD [facility] Encounter Notes: All associated encounter notes This section contains the clinical notes associated to the Encounter. Date/Time Encounter Note(s) Provider Source May 06, 2023 01:14 PM PHARMACY MEDICATION MGT NOTE: LOCAL TITLE: PHARMACY ANTICOAGULATION NOTE STANDARD TITLE: PHARMACY MEDICATION MGT NOTE DATE OF NOTE: MAY 06, 2023@13:14 ENTRY DATE: MAY 06, 2023@13:15:11 AUTHOR: KALEN SWARTZER: URGENCY: STATUS: COMPLETED ANTICOAGULATION DOAC MONITORING NOTE SUBJECTIVE: Patient identified through the DOAC population Management Tool based on the following criteria: [ X ] Dosing Issue [ ] Critical Drug Interaction [ ] Cancer Treatment [ ] Active NSAID [ ] Labs Overdue [ ] Prosthetic Valve Replacement [ ] Notable Lab Value [ ] Overdue for Refill [ ] Other: Comments: Round O was flagged for review Eliquis dosing d/t recent BMP. OBJECTIVE: Indication for anticoagulation: [ X ] Atrial fibrillation [ ] Atrial flutter [ ] VTE [...] kg] (01/09/2023 14:16) BMI: BMI: 29.1 CREATININE-EGFR 05/05/23 07:48 1.45 H 01/03/23 09:54 1.34 10/01/22 09:40 1.46 H CRCL IBW: CrCl(est): 36.1 mL/min (Creat:1.45 05/05/23) CRCL ACT: 46.24 mL/min CRCL ADJ: 36.1 mL/min (05/05/23) ASSESSMENT: is anticoagulated with Eliquis 2.5mg BID for atrial fibrillation. Per environmental services aide's guidance, the Round O does not meet criteria for reduced dosing. -- age >/= 80 years: yes -- weight </= 60kg: no -- SCr >/= 1.5mg/dL: no Round O must meet 2 of 3 to be eligible for reduced dosing. Based on this criteria, the Round O is indicated for Eliquis 5mg BID. Action required? [ X ] Yes [ ] No PLAN: [ ] No action required, dismiss flag [ X ] Will intervene: [ ] Patient education via phone/letter [ ] Schedule phone/[id number] follow up [ ] Lab ordered [ ] Discontinue interacting medication [ ] Discontinue DOAC [ ] Change to alternative DOAC [ ] Change DOAC dose [ X ] Notify PCP [ ] Consult cardiology/hematology [ ] Other: Please consider the dosing for Eliquis. If adjustments are made, please contact the Round O as he is not actively follow by [facility]. Time spent: 10 min /jus/ KALEN SWARTZ Signed: 05/06/2023 13:26 Receipt Acknowledged By: 05/07/2023 09:05 /jus/ GEORGINA ARITA MD STAFF PHYSICIAN KALEN SWARTZ [facility] ([id number])
--- OUTSIDE RECORDS SUMMARY | 2024-03-26 16:25 | XMS_ITS | Encounter Summary ---
Author Name [facility] [place] [facility] [place] Address [address] [place] [address] Care Team Providers Care Agitator Operator Name Role Phone AJAY APODACA Primary [...] PART A Nov 22, 2006 PART A [id number] TONY CASTELLON PATIENT MEDICARE (WNR) MEDICARE (M) PART B Nov 22, 2006 PART B [id number] [phone] TONY CASTELLON PATIENT MEDICARE (WNR) MEDICARE (M) PART B Nov 22, 2006 PART B [id number] TONY CASTELLON PATIENT MEDICARE (WNR) MEDICARE (M) PART A Nov 22, 2006 PART A [id number] TONY CASTELLON PATIENT FOR LIFE TFL* Apr 20, 2014 [id number] SUKHJINDER CASTELLON JR PATIENT Selected Encounter This section includes the information on record at [place] for the Encounter. Date/Time Encounter Type Encounter Description Reason Provider Source May 01, 2023 08:09 AM QNHP OL DIG ASSMT&MGMT 5-10 CLINICAL PHARMACY ICD-10-CM Z04.89 Encounter for examination and observation for oth reasons MOODY ANNE IHJose Encounter Template Text not used by [place] Assessments - Encounter Diagnoses This section includes the primary and secondary diagnoses documented for the Encounter. Date/Time Primary/Secondary Diagnosis Diagnosis Name Provider Source May 01, 2023 04:05 PM PRIMARY Encounter for examination and observation for oth reasons MOODY ANNE [facility] Plan of Treatment: Future Appointments (+ 6 months) and Future Tests (+/- 45 days) The Plan of Treatment section includes future care activities for the [facility] [place] [facility] [place] This section includes future appointments and future orders which are active, pending or scheduled. Future Appointments This section includes appointments that were scheduled to occur 6 months from the date of the Encounter, up to a maximum of 20 appointments. The data comes from all [place] treatment facilities. Appointment Date/Time Appointment Type Appointme nt Facility Name May 06, 2023 02:30 PM [place]UL[place]ICINE [place] [facility] [place] [facility] May 07, 2023 01:30 PM AM[place]UL[place] MEDICINE [place] [facility] [place] [facility] Jun 25, 2023 01:00 PM AM[place]UL[place] MEDICINE [place] [facility] [place] [facility] August 13, 2023 10:00 AM AM[place]UL[place] MEDICINE [place] [facility] [place] [facility] Sep 04, 2023 11:00 AM AM[place]UL[place]ORY MEDICINE [place] [facility] [place] [facility] Sep 23, 2023 09:00 AM [place]UL[place]ICINE [place] [facility] [place] [facility] Lab Results: +/- 30 days of the encounter This section includes the Chemistry and Hematology Lab Results on record with [place] for the patient. Radiology Reports and Pathology Reports are provided separately, in subsequent sections. Lab Results This section contains the Chemistry/Hematology Results that were resulted 30 days before or 30 daysafter the date of the Encounter. Date/Time Source Result Type Result - Unit Interpretation Reference Range Comment May 05, 2023 07:48 AM [facility] LIPID PANEL FASTING Specimen Type: SERUM No comment entered. Ordering Provider: BUTTS,MIAH Report Released Date/Time: Jan 05, 2023 07:44 PM Reporting Lab: [facility] [address] [facility] [address] Performing Lab: [facility] [address] [facility] [address] CHOLESTEROL 86 mg/dL TRIGLYCERIDE 74 mg/dL 0-150 LDL calculated 40 mg/dL 0-129 CHOL/HDL 2.8 HDL CHOLESTEROL 31 mg/dL L 40-60 May 05, 2023 07:48 AM [facility] MICROALBUMIN CREATININE RATIO PANEL Specimen Type: URINE No comment entered. Ordering Provider: MIAH BUTTS Report Released Date/Time: Jan 05, 2023 07:44 PM Reporting Lab: [facility] [address] [facility] [address] Performing Lab: [address] [address] MICROALBUMIN/C REATININE RATIO canc mg/g 0-29.9 MICROALBUMIN,Q UANTITATIVE < 0.5 mg/dL RR UNAVAIL CREATININE URINE 37.09 mg/dL May 05, 2023 07:48 AM [facility] HEMOGLOBIN A1C PANEL Specimen Type: BLOOD [...] Jan 05, 2023 07:44 PM Reporting Lab: [address] [address] Performing Lab: [address] [address] HEMOGLOBIN A1C 7.2 H 4.0-5.6 May 05, 2023 07:48 AM [facility] BASIC METABOLIC PANEL (fasting) Specimen Type: SERUM No comment entered. Ordering Provider: MIAH BUTTS Report Released Date/Time: Jan 05, 2023 07:44 PM Reporting Lab: [place] [facility] [place] [facility] [address] [facility] [address] Performing Lab: [place] [facility] [place] [facility] [address] [facility] [address] UREA NITROGEN 17 mg/dL 7-25 GLUCOSE 148 [...] and tobacco- related health factors from the [place] facility where the Encounter took place. Current Smoking Status This section includes the most current smoking, or tobacco-related health factor, from the [place] facility where the Encounter took place. Date/Time Current Smoking Status Comment Facil it Dec 24, 2022 10:30 AM VA-TOBACCO FOR[facility] USER [place] [facility] Tobacco Use History This section includes a history of the smoking, or tobacco-related health factors, that were collected on or before the date of the Encounter. The data comes from the [place] facility where the Encounter took place. Date/Time Smoking Status/Tobac co Use Comment Facility Dec 24, 2022 10:30 AM VA-TOBACCO QUIT 15 YRS OR MORE [place] [facility] [place] [facility] Dec 24, 2021 10:00 AM VA-TOBACCO FORMER USER [place] [facility] [place] [facility] Dec 24, 2021 10:00 AM VA-TOBACCO QUIT 5 TO < 15 YRS [facility] [place] [facility] Dec 14, 2020 08:30 AM VA-TOBACCO FORMER USER [facility] [place] [facility] Dec 14, 2020 08:30 AM VA-TOBACCO QUIT 5 TO < 15 YRS [facility] [place] [facility] Nov 15, 2019 11:00 AM VA-TOBACCO FORMER USER [facility] [place] [facility] Nov 15, 2019 11:00 AM VA-TOBACCO QUIT 5 TO < 15 YRS [facility] Oct 20, 2017 08:19 AM VA-TOBACCO FORMER USER [facility] Oct 20, 2017 08:19 AM [place]-TOBACCO QUIT 5 TO < 15 YRS [facility] Sep 04, 2017 11:09 AM QUIT TOBACCO USE > 7 YEARS AGO [facility] Oct 16, 2016 09:08 AM QUIT TOBACCO USE > 7 YEARS AGO [facility] Feb 20, 2015 10:58 AM QUIT TOBACCO USE > 7 YEARS AGO quit 2009-cigarettes and cigars for 45 years [facility] Advance Directives: All historical and current Section Date Range: From patient's date of to the date document was created. This section includes ALL of a patient's completed or amended [place] Advance and Rescinded Directives. The entries below indicate that a directive exists for the patient, but an actual copy is not included with this document. The data comes from all [place] facilities. Date Advance Directives Provider Source Mar 23, 2014 ADVANCE DIRECTIVE SHELBYROSALINDA [facility] Encounter Notes: All associated encounter notes This section contains the clinical notes associated to the Encounter. Date/Time Encounter Note(s) Provider Source May 01, 2023 08:09 AM PHARMACY MEDICATION MGT NOTE: LOCAL TITLE: PHARMACY ANTICOAGULATION NOTE STANDARD TITLE: PHARMACY MEDICATION MGT NOTE DATE OF NOTE: MAY 01, 2023@08:09 ENTRY DATE: MAY 01, 2023@08:09:27 AUTHOR: JAMES FITCH EXP COSIGNER: URGENCY: STATUS: [...] CrCl(est): 39.0 mL/min (Creat:1.34 01/03/23) CRCL ACT: No Creat CRCL ADJ: 39.0 mL/min (01/03/23) ASSESSMENT: overdue refill Action required? [ ] Yes [ X ] No Comments: Per 03/31/23 note; 04/03/2023 ADDENDUM STATUS: COMPLETED Patient called - he has plenty of medication left, he attributes it to dosage changes. /tyree JUNIOR Clinical Automatic Packer Operator Signed: 04/03/2023 14:24 Will dismiss flag at this time. PLAN: [ X ] No action required, dismiss flag [ ] Will intervene: [ ] Patient education via phone/letter [ ] Schedule phone/[id number] follow up [ ] Lab ordered [ ] Discontinue interacting medication [ ] Discontinue DOAC [ ] Change to alternative DOAC [ ] Change DOAC dose [ ] Notify PCP [ ] Consult cardiology/hematology [ ] Other: Time spent: 5 min /jus/ JAMES FITCH CPHT Clinical Automatic Packer Operator Signed: 05/01/2023 08:10 Receipt Acknowledged By: 05/01/2023 16:05 /tyree Anne PharmD, GURDEEP Clinical Web Coordinator 05/01/2023 ADDENDUM STATUS: COMPLETED Reviewed above note; agree w/ A/P as documented. /tyree Anne PharmD, GURDEEP Clinical Web Coordinator Signed: 05/01/2023 16:06 JAMES FITCH [facility]
--- OUTSIDE RECORDS SUMMARY | 2024-03-26 16:25 | XMS_ITS | Continuity of Care Document ---
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 It does not include entries that were removed or entered in error. 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 [facility] Chronic obstructive pulmonary disease Active Condition [facility] Elevated liver enzymes level Active Condition [facility] Essential hypertension Active Condition [facility] Exposure to potentially hazardous substance ([facility] [id number]) Active Condition Jul 01 Entered By: KAYA MORLEY Comment: Entered automatically through [facility] Problem List documentation program [facility] Hearing loss Active Condition [facility] Herpes zoster infection Active Condition [facility] Hyperlipidemia Active Condition [facility] Long-term current use of anticoagulant Active Condition [facility] Overweight Active Condition [facility] 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 Powell [facility] Sleep apnea Active Condition Jun 25, 2023 Entered By: GEORGINA ARITA Comment: not using cpap [facility] T-cell lymphoma Active Condition [facility] Type 2 diabetes mellitus Active Condition [facility] Diagnosis: ICD-10-CM H40.013 Open angle with borderline findings, low risk, bilateral Active Diagnosis [facility] Diagnosis: ICD-10-CM E11.9 Type 2 diabetes mellitus without complications Active Diagnosis [facility] Diagnosis: ICD-10-CM E11.8 Type 2 diabetes mellitus with unspecified complications Active Diagnosis [facility] Diagnosis: ICD-10-CM Z04.89 Encounter for examination and observation for oth reasons Active Diagnosis [facility] Diagnosis: ICD-10-CM Z74.09 Other reduced mobility Active Diagnosis [facility] Diagnosis: ICD-10-CM Z95.0 Presence of cardiac pacemaker Active Diagnosis [facility] Diagnosis: ICD-10-CM E11.42 Type 2 diabetes mellitus with diabetic polyneuropathy Active Diagnosis [facility] Diagnosis: ICD-10-CM Z51.81 Encounter for therapeutic drug level monitoring Active Diagnosis [facility] Diagnosis: ICD-10-CM Z79.01 group home (current) use of anticoagulants Active Diagnosis [facility] (631GE) Medications Combined list of outpatient medications from Department of Defense and Veterans Affairs facilities.Medications provided include 1) outpatient medications from the last 15 months, and 2) patient-reported medications. Medication Details Route Status Patient Instructions Prescription Expires Prescription Number Last Dispense Date Ordering Provider Order Date Order Qty Source AMIODARONE HCL (AMIODARONE HCL), 200MG, TABLET, ORAL, [facility], 60 ea. BOTTLE Cancele d [id number] : 2023 0 Pharmac y Data Transac tion Service Facilit y AMIODARONE HCL (AMIODARONE HCL), 200MG, TABLET, ORAL, [facility], 60 ea. BOTTLE Active [id number] 2023 180 Pharmac y Data Transac tion Service Facilit y AMIODARONE HCL (AMIODARONE HCL), 200MG, TABLET, ORAL, [facility], 60 ea. BOTTLE Active [id number] 2023 180 Pharmac y Data Transac tion Service Facilit y AMIODARONE HCL (AMIODARONE HCL), 200MG, TABLET, ORAL, [facility], 60 ea. BOTTLE Active [id number] 2023 90 Pharmac y Data Transac tion Service Facilit y AMIODARONE HCL 200MG TAB TAKE ONE TABLET BY MOUTH TWICE DAILY [facility] J[facility] AMOX TR-POTASSIU M CLAVULANATE (AMOXICILLI N/POTASSIUM CLAV), 875-125 MG, TABLET, ORAL, [facility], 20 ea. BOTTLE Active [id number] 2023 14 Pharmac y Data Transac tion Service Facilit y APIXABAN 5 MG ORAL TAB TAKE ONE-HALF TABLET BY MOUTH TWICE DAILY FOR PREVENTI ON OF BLOOD CLOTS 12/25/2023 [id number] CASSIDY ARITAAMMED JAWED 20[facility] 5MG TAB TAKE ONE-HALF TABLET BY MOUTH TWICE DAILY FOR PREVENTI ON OF BLOOD CLOTS ORAL ACTIVE 02/10/2025 [id number] AJAY APODACA 2023 180 [facility] APIXABAN 5MG TAB TAKE ONE-HALF TABLET BY MOUTH TWICE DAILY FOR PREVENTI ON OF BLOOD CLOTS ORAL DISCONT INUED 12/25/2023 [id number] CASSIDY ARITA AMMED JAWED 2022 30 [facility] ATORVASTATI N [place] 20MG TAB TAKE ONE-HALF TABLET BY MOUTH ORAL ACTIVE CASSIDY ARITA AMMED JAWED 2015 [facility] ATORVASTATI N CALCIUM (atorvastat in calcium), 40 MG, TABLET, ORAL, [facility], 1000 ea. BOTTLE Active [id number] 2023 90 Pharmac y Data Transac tion Service Facilit y ATORVASTATI N CALCIUM (atorvastat in calcium), 40 MG, TABLET, ORAL, [facility], 1000 ea. BOTTLE Active [id number] 2023 90 Pharmac y Data Transac tion Service Facilit y carboxymeth ylcel 0.5% EYE DROP [2 X15ML] INSTILL 1 DROP INTO EACH EYE TWICE DAILY 01/10/2024 [id number] MIAH BUTTS 2023 15 [facility] CARBOXYMETH YLCELLULOSE NA 0.5% SOLN,OPH INSTILL 1 DROP INTO EACH EYE FOUR TIMES A DAY FOR DRY EYE OPHTHA LMIC ACTIVE 03/04/2025 [id number] PAYTON SHELLEY EY J 2023 45 [facility] CARBOXYMETH YLCELLULOSE NA 0.5% SOLN,OPH INSTILL 1 DROP INTO EACH EYE TWICE DAILY OPHTHA LMIC 01/10/2024 [id number] BUTTS,AL ICE 2022 15 [facility] COZAAR (BRAND) 50 MG ORAL TAB TAKE ONE TABLET BY MOUTH ONCE DAILY FOR BLOOD PRESSURE /HEART Discont inued 12/25/2023 [id number] GEORGINA ARITA JAWJULISSA 2023 90 [facility] COZAAR (BRAND) 50 MG ORAL TAB TAKE ONE TABLET BY MOUTH ONCE DAILY FOR BLOOD PRESSURE /HEART 12/25/2023 [id number] GEORGINA ARITA JAWED 2022 90 [facility] DEXTROSE 4 GM ORAL CHEW CHEW THREE TO FOUR TABLETS BY MOUTH NEEDED FOR LOW BLOOD SUGAR BELOW 70 Active 08/20/2024 [id number] MIAH BUTTS 2023 20 [facility] DEXTROSE 4 GM ORAL CHEW CHEW THREE TO FOUR TABLETS BY MOUTH NEEDED FOR LOW BLOOD SUGAR BELOW 70 Discont inued 01/10/2024 [id number] MIAH BUTTS 2023 20 [facility] EMPAGLIFLOZ IN 10 MG ORAL TAB TAKE ONE-HALF TABLET BY MOUTH ONCE DAILY Discont inued 05/07/2024 [id number] MIAH BUTTS 2023 45 [facility] EMPAGLIFLOZ IN 10MG TAB TAKE ONE-HALF TABLET BY MOUTH ONCE DAILY ORAL DISCONT INUED BY PROVIDE R 05/07/2024 [id number] BECKIEAL ICE 2023 45 [facility] EMPAGLIFLOZ IN 25 MG ORAL TAB TAKE ONE-HALF TABLET BY MOUTH ONCE DAILY Discont inued 01/28/2024 [id number] MIAH BUTTS 2023 45 [facility] EMPAGLIFLOZ IN 25MG TAB TAKE ONE-HALF TABLET BY MOUTH ONCE DAILY ORAL DISCONT INUED (EDIT) 01/28/2024 [id number] BRETT BUTTS ICE 2022 45 [facility] FENOFIBRATE (fenofibrat e), 54 MG, TABLET, ORAL, [facility], 90 ea. BOTTLE Cancele d [id number] : 2023 0 Pharmac y Data Transac tion Service Facilit y FENOFIBRATE (fenofibrat e), 54 MG, TABLET, ORAL, [facility], 90 ea. BOTTLE Active [id number] 2023 180 Pharmac y Data Transac tion Service Facilit y FENOFIBRATE 54MG TAB TAKE TWO TABLETS BY MOUTH ONCE DAILY ORAL ACTIVE CASSIDY ARITA JAWED 2020 [facility] FINASTERIDE (FINASTERID E), 5 MG, TABLET, ORAL, [facility], 90 ea. BOTTLE Active [id number] 2023 90 Pharmac y Data Transac tion Service Facilit y FINASTERIDE (FINASTERID E), 5 MG, TABLET, ORAL, [facility], 90 ea. BOTTLE Active [id number] 2023 90 Pharmac y Data Transac tion Service Facilit y FINASTERIDE 5MG TAB TAKE ONE TABLET BY MOUTH ONCE DAILY ORAL ACTIVE CASSIDY ARITA JAWED 2021 [facility] FLUTICASONE 500MCG/SALM ETEROL 50MCG INHL,ORAL,D ISKUS,60 INHALE 1 PUFF BY MOUTH ONCE DAILY RESPIR ATORY (INHAL ATION) ACTIVE CASSIDY ARITA JAWED 2020 [facility] FUROSEMIDE (furosemide ), 40 MG, TABLET, ORAL, [facility], 1000 ea. BOTTLE Active [id number] 2023 180 Pharmac y Data Transac tion Service Facilit y FUROSEMIDE (furosemide ), 40 MG, TABLET, ORAL, [facility], 1000 ea. BOTTLE Active [id number] 4 2023 90 Pharmac y Data Transac tion Service Facilit y FUROSEMIDE (FUROSEMIDE ), 40MG, TABLET, ORAL, [facility] 1000 ea. BOTTLE Active [id number] 2023 30 Pharmac y Data Transac tion Service Facilit y FUROSEMIDE (FUROSEMIDE ), 40MG, TABLET, ORAL, [facility] 1000 ea. BOTTLE Active [id number] 2023 30 Pharmac y Data Transac tion Service Facilit y FUROSEMIDE 40MG TAB TAKE ONE TABLET BY MOUTH TWICE DAILY ORAL ACTIVE BUTTS,AL ICE 2023 [facility] GLUCOSE 4GM TAB,CHEW CHEW THREE TO FOUR TABLETS BY MOUTH NEEDED FOR LOW BLOOD SUGAR BELOW 70 ORAL ACTIVE 08/20/2024 [id number] BUTTS,AL ICE 2023 20 [facility] GLUCOSE 4GM TAB,CHEW CHEW THREE TO FOUR TABLETS BY MOUTH NEEDED FOR LOW BLOOD SUGAR BELOW 70 ORAL DISCONT INUED 01/10/2024 [id number] BUTTS,AL ICE 2022 20 [facility] [place] Insulin Aspart 100U/mL, Injection, 3mL Pen Injector INJECT 7 UNITS SUBCUTAN EOUSLY EVERY MORNING AND INJECT 8 UNITS AT NOON AND INJECT 15 UNITS EVERY EVENING BEFORE SUPPER Active 08/13/2024 [id number] MIAH BUTTS 2023 10 [facility] Insulin Aspart 100U/mL, Injection, 3mL Pen Injector INJECT 18 UNITS SUBCUTAN EOUSLY EVERY MORNING AND INJECT 7 UNITS AT NOON AND INJECT 11 UNITS EVERY EVENING BEFORE SUPPER Discont inued 05/07/2024 [id number] MIAH BUTTS 2023 15 [facility] Insulin Aspart 100U/mL, Injection, 3mL Pen Injector INJECT 16 UNITS SUBCUTAN EOUSLY EVERY MORNING AND INJECT 9 UNITS AT NOON AND INJECT 11 UNITS EVERY EVENING BEFORE SUPPER Discont inued 01/28/2024 [id number] MIAH BUTTS 2023 15 [facility] Insulin Aspart 100U/mL, Injection, 3mL Pen Injector INJECT 16 UNITS SUBCUTAN EOUSLY EVERY MORNING AND INJECT 9 UNITS AT NOON AND INJECT 11 UNITS EVERY EVENING BEFORE SUPPER 01/28/2024 [id number] MIAH BUTTS 2022 15 [facility] Insulin Aspart 100U/mL, Injection, 3mL Pen Injector INJECT 16 UNITS SUBCUTAN EOUSLY EVERY MORNING AND INJECT 9 UNITS AT NOON AND INJECT 11 UNITS EVERY EVENING BEFORE SUPPER 01/10/2024 [id number] 3 MIAH BUTTS 2022 15 [facility] INSULIN,ASP ART,HUMAN (EQV-NOVOLO G) 100 UNIT/ML,FLE XPEN,3ML INJECT DIRECTED SUBCUTAN EOUSLY THREE TIMES A DAY 10-14 UNITS BREAKFAS T BASED ON MEAL, 7 UNITS NOON, 10 UNITS DINNER. SUBCUT ANEOUS ACTIVE 02/25/2025 [id number] BUTTS,AL ICE 2023 15 [facility] INSULIN,ASP ART,HUMAN (EQV-NOVOLO G) 100 UNIT/ML,FLE XPEN,3ML INJECT DIRECTED SUBCUTAN EOUSLY THREE TIMES A DAY 9 UNITS FOR EGGS, 15 UNITS FOR CEREAL BREAKFAS T, 7 UNITS NOON, 10 UNITS DINNER 9 UNITS FOR EGGS, 15 UNITS FOR CEREAL BREAKFAS T, 7 UNITS NOON, 10 UNITS DINNER SUBCUT ANEOUS DISCONT INUED 02/24/2025 [id number] BUTTS,AL ICE 2023 15 [facility] INSULIN,ASP ART,HUMAN (EQV-NOVOLO G) 100 UNIT/ML,FLE XPEN,3ML INJECT DIRECTED SUBCUTAN EOUSLY THREE TIMES A DAY 8 UNITS FOR EGGS, 12 UNITS FOR CEREAL AM, 5 UNITS NOON, 9 UNITS DINNER SUBCUT ANEOUS DISCONT INUED (EDIT) 11/13/2024 [id number] 4 BUTTS,AL ICE 2023 15 [facility] INSULIN,ASP ART,HUMAN (EQV-NOVOLO G) 100 UNIT/ML,FLE XPEN,3ML INJECT 7 UNITS SUBCUTAN EOUSLY EVERY MORNING AND INJECT 8 UNITS AT NOON AND INJECT 15 UNITS EVERY EVENING BEFORE SUPPER SUBCUT ANEOUS DISCONT INUED (EDIT) 08/13/2024 [id number] BUTTS,AL ICE 2023 10 [facility] INSULIN,ASP ART,HUMAN (EQV-NOVOLO G) 100 UNIT/ML,FLE XPEN,3ML INJECT 18 UNITS SUBCUTAN EOUSLY EVERY MORNING AND INJECT 7 UNITS AT NOON AND INJECT 11 UNITS EVERY EVENING BEFORE SUPPER SUBCUT ANEOUS DISCONT INUED (EDIT) 05/07/2024 [id number] BUTTS,AL ICE 2023 15 [facility] INSULIN,ASP ART,HUMAN (EQV-NOVOLO G) 100 UNIT/ML,FLE XPEN,3ML INJECT 16 UNITS SUBCUTAN EOUSLY EVERY MORNING AND INJECT 9 UNITS AT NOON AND INJECT 11 UNITS EVERY EVENING BEFORE SUPPER SUBCUT ANEOUS DISCONT INUED (EDIT) 01/28/2024 [id number] BUTTS,AL ICE 2022 15 [facility] INSULIN,ASP ART,HUMAN (EQV-NOVOLO G) 100 UNIT/ML,FLE XPEN,3ML INJECT 16 UNITS SUBCUTAN EOUSLY EVERY MORNING AND INJECT 9 UNITS AT NOON AND INJECT 11 UNITS EVERY EVENING BEFORE SUPPER SUBCUT ANEOUS DISCONT INUED 01/10/2024 [id number] BUTTS,AL ICE 2022 15 [facility] INSULIN,GLA RGINE-YFGN 100UNIT/ML INJ PEN,3ML INJECT 13 UNITS SUBCUTAN EOUSLY TWICE DAILY SUBCUT ANEOUS ACTIVE 02/25/2025 [id number] BUTTS,AL ICE 2023 15 [facility] INSULIN,GLA RGINE-YFGN 100UNIT/ML INJ PEN,3ML INJECT 10 UNITS SUBCUTAN EOUSLY TWICE DAILY SUBCUT ANEOUS DISCONT INUED BY PROVIDE R 08/13/2024 [id number] BUTTS,AL ICE 2023 10 [facility] INSULIN,GLA RGINE-YFGN 100UNIT/ML INJ PEN,3ML INJECT 38 UNITS SUBCUTAN EOUSLY AT BEDTIME SUBCUT ANEOUS DISCONT INUED (EDIT) 05/07/2024 [id number] BUTTS,AL ICE 2023 15 [facility] INSULIN,GLA RGINE-YFGN 100UNIT/ML INJ PEN,3ML INJECT 19 UNITS SUBCUTAN EOUSLY TWICE DAILY SUBCUT ANEOUS DISCONT INUED BY PROVIDE R 01/10/2024 [id number] BUTTS,AL ICE 2022 15 [facility] [place] LIDOCAINE 5 % TOP OINT [30 GM] APPLY LIBERAL AMOUNT TOPICALL Y TWICE DAILY NEEDED FOR NEUROPAT HY PAIN 12/17/2023 [id number] MIAH BUTTS 2023 70 [place] [facility] LIDOCAINE 5 % TOP OINT [30 GM] APPLY LIBERAL AMOUNT TOPICALL Y TWICE DAILY NEEDED FOR NEUROPAT HY PAIN 12/17/2023 [id number] MIAH BUTTS 2022 70 [place] [facility] LIDOCAINE 5% OINT,TOP APPLY LIBERAL AMOUNT TOPICALL Y TWICE DAILY NEEDED FOR NEUROPAT HY PAIN TOPICA L 12/17/2023 [id number] BRETT BUTTS ICE 2022 70 [facility] LOSARTAN 50MG TAB TAKE ONE TABLET BY MOUTH ONCE DAILY FOR BLOOD PRESSURE /HEART ORAL DISCONT INUED BY PROVIDE R 12/25/2023 [id number] CASSIDY ARITA JAWED 2022 90 [facility] [place] [facility] METOPROLOL TARTRATE 25MG TAB TAKE ONE-HALF TABLET BY MOUTH TWICE DAILY ORAL ACTIVE CASSIDY ARITA JAWED 2023 [facility] TERAZOSIN HCL (TERAZOSIN HCL), 5MG, CAPSULE, ORAL, [facility], 1000 ea. BOTTLE Active [id number] 4 2023 90 Pharmac y Data Transac tion Service Facilit y TERAZOSIN HCL 5MG CAP TAKE 1 CAPSULE BY MOUTH ONCE DAILY ORAL ACTIVE CASSIDY ARITA JAWED 2020 [facility] WIXELA INHUB (fluticason e propionate/ salmeterol xinafoate), 250-50 MCG, BLST W/DEV, INHALATION, MYLAN, 60 ea. BLIST PACK Cancele d [id number] : 2023 0 Pharmac y Data Transac tion Service Facilit y Immunizations Combined list of available immunizations from the Department of Defense and Veterans Affairs facilities. Immunization Series Date Given Administered By Site Reaction Lot Number CVX Code Drug Adventure Education Teacher Status Comments Source INFLUENZA, UNSPECIFIED FORMULATION 2023 88 complet ed [facility] INFLUENZA, HIGH-DOSE, QUADRIVALENT 2022 ANDRESSTUART M LEFT DELTO ID [id number] 197 complet ed [facility] COVID-19 (MODERNA), MRNA, LNP-S, PF, 100 MCG OR 50 MCG DOSE 3 2020 207 complet ed MOD; [id number]; 2 [facility] INFLUENZA, UNSPECIFIED FORMULATION 2020 88 complet ed [facility] COVID-19 (MODERNA), MRNA, LNP-S, PF, 100 MCG/0.5 ML DOSE 2 2020 207 complet ed MOD; [id number]; 1 [facility] COVID-19 (MODERNA), MRNA, LNP-S, PF, 100 MCG/0.5 ML DOSE 1 2020 207 complet ed MOD; [id number]; 1 [facility] ZOSTER RECOMBINANT 2 2019 187 complet ed [facility] ZOSTER RECOMBINANT 1 2019 187 complet ed [facility] INFLUENZA, INJECTABLE, QUADRIVALENT, PRESERVATIVE FREE 2018 150 complet ed Site: Left Deltoid [facility] PNEUMOCOCCAL POLYSACCHARID E PPV23 2018 33 complet ed [facility] INFLUENZA, SEASONAL, INJECTABLE 2017 141 complet ed Site: Left Deltoid [facility] PNEUMOCOCCAL CONJUGATE PCV 13 2016 133 complet ed [facility] TDAP 2016 115 complet ed Site: Left Deltoid [facility] FLU,3 YRS (HISTORICAL) 2016 88 complet ed [facility] FLU,3 YRS (HISTORICAL) 2014 88 complet ed outside provider [facility] ZOSTER (HISTORICAL) 2013 121 complet ed [facility] Results Combined list of recent chemistry, hematology and other laboratory results from Department of Defense and Veterans Affairs, ranging from 15 months to all on record, depending upon the facility. Order Name Results Value Reference Range Date Interpretation Specimen Comments Source CREATINI NE (eGFR 2021) CREATININE [MASS/VOLU ME] IN SERUM OR PLASMA 1.86 mg/dL 0.50 - 1.40 01/28 H Specimen Type: SERUM No comment entered. Ordering Provider: SUNNY APODACA Report Released Date/Time: Jan 27, 2024 07:33 AM Reporting Lab: [facility] [address] Performing Lab: [facility]RL TRN [facility] [address] [address] [facility] CREATINI NE (eGFR 2020) GLOMERULAR FILTRATION RATE/1.73 SQ M.PREDICTE D [VOLUME RATE/AREA] IN SERUM, PLASMA OR BLOOD BY CREATININE -BASED FORMULA (CKD-EPI 2020) 36 mL/min 60 01/28 L Specimen Type: SERUM No comment entered. Ordering Provider: SUNNY APODACA Report Released Date/Time: Jan 27, 2024 07:33 AM Reporting Lab: [facility] [place]N [place] [facility] [address] [facility] [address] Performing Lab: [facility] TRN [facility]ENTER[facility]ETS [address] [address] [facility] PT & INR (COUMADI N) INR IN PLATELET POOR PLASMA BY COAGULATIO N ASSAY 1.3 01/28 Specimen Type: PLASMA No comment entered. Ordering Provider: SUNNY APODACA Report Released Date/Time: Jan 27, 2024 07:33 AM Reporting Lab: [facility] [place] [place] [address] [address] Performing Lab: [facility] TRN [facility] [address] [address] [facility]N [address] [facility] PT & INR (COUMADI N) PROTHROMBI N TIME (PT) 14.6 s 10.0 - 13.1 01/28 H Specimen Type: PLASMA No comment entered. Ordering Provider: SUNNY APODACA Report Released Date/Time: Jan 27, 2024 07:33 AM Reporting Lab: [facility] [place] [facility] [address] [facility] [address] Performing Lab: [facility] [place] [facility] [address] [facility] [address] [facility] [place] [facility] LIVER FUNCTION PROTEIN [MASS/VOLU ME] IN SERUM OR PLASMA 7.4 g/dL 6.0 - 8.3 01/28 Specimen Type: SERUM No comment entered. Ordering Provider: SUNNY APODACA Report Released Date/Time: Jan 27, 2024 07:33 AM Reporting Lab: [facility] [place] [facility] [address] [facility] [address] Performing Lab: [facility] [place] [facility] [address] [facility] [address] [place] [facility] [place] [facility] LIVER FUNCTION ALBUMIN [MASS/VOLU ME] IN SERUM OR PLASMA 3.2 g/dL 3.5 - 5.0 01/28 L Specimen Type: SERUM No comment entered. Ordering Provider: SUNNY APODACA Report Released Date/Time: Jan 27, 2024 07:33 AM Reporting Lab: [facility] [place] [facility] [address] [facility] [address] Performing Lab: [facility] [place] [facility] [address] [facility] [address] [place] [facility] LIVER FUNCTION ALKALINE PHOSPHATAS E [ENZYMATIC ACTIVITY/V OLUME] IN SERUM OR PLASMA 66 U/L 40 - 150 01/28 Specimen Type: SERUM No comment entered. Ordering Provider: SUNNY APODACA Report Released Date/Time: Jan 27, 2024 07:33 AM Reporting Lab: [facility] [place] [facility] [address] [facility] [address] Performing Lab: [facility] [place] [facility] [address] [facility] [address] [place] [facility] [place] [facility] LIVER FUNCTION ASPARTATE AMINOTRANS FERASE [ENZYMATIC ACTIVITY/V OLUME] IN SERUM OR PLASMA 30 U/L 5 - 34 01/28 Specimen Type: SERUM No comment entered. Ordering Provider: SUNNY APODACA Report Released Date/Time: Jan 27, 2024 07:33 AM Reporting Lab: [facility] [place] [facility] [address] [facility] [address] Performing Lab: [facility] [place] [facility] [address] [facility] [address] [place] [facility] LIVER FUNCTION ALANINE AMINOTRANS FERASE [ENZYMATIC ACTIVITY/V OLUME] IN SERUM OR PLASMA 31 U/L 01/28 Specimen Type: SERUM No comment entered. Ordering Provider: SUNNY APODACA Report Released Date/Time: Jan 27, 2024 07:33 AM Reporting Lab: [facility] [place] [facility] [address] [facility] [address] Performing Lab: [place] [facility] [place] [address] [address] [facility]RL W[facility] [place] [facility] LIVER FUNCTION BILIRUBIN. TOTAL [MASS/VOLU ME] IN SERUM OR PLASMA 0.4 mg/dL 0.2 - 1.2 01/28 Specimen Type: SERUM No comment entered. Ordering Provider: SUNNY APODACA Report Released Date/Time: Jan 27, 2024 07:33 AM Reporting Lab: [facility] [facility] [address] [facility] [address] Performing Lab: [place] [facility] [place] [address] [address] [facility] CBC LEUKOCYTES [#/VOLUME] IN BLOOD BY AUTOMATED COUNT 6.95 10*3/uL 4.50 - 11.00 01/28 Specimen Type: BLOOD No comment entered. Ordering Provider: SUNNY APODACA Report Released Date/Time: Jan 27, 2024 07:33 AM Reporting Lab: [facility] [place] [facility] [address] [facility] [address] Performing Lab: [place] [facility] [place] [address] [address] [facility] CBC ERYTHROCYT ES [#/VOLUME] IN BLOOD BY AUTOMATED COUNT 3.19 10*6/uL 4.23 - 5.66 01/28 L Specimen Type: BLOOD No comment entered. Ordering Provider: SUNNY APODACA Report Released Date/Time: Jan 27, 2024 07:33 AM Reporting Lab: [facility] [place] [facility] [address] [facility] [address] Performing Lab: [facility] [place] [facility] [address] [facility] [address] [facility] [place] [facility] CBC HEMOGLOBIN [MASS/VOLU ME] IN BLOOD 9.9 g/dL 12.8 - 17 01/28 L Specimen Type: BLOOD No comment entered. Ordering Provider: SUNNY APODACA Report Released Date/Time: Jan 27, 2024 07:33 AM Reporting Lab: [facility] [place] [address] [address] Performing Lab: [facility] [place] [facility] [address] [facility] [address] [facility] SERVICESRL [place] [place] [facility] CBC HEMATOCRIT [VOLUME FRACTION] OF BLOOD BY AUTOMATED COUNT 31.2 39.2 - 50.4 01/28 L Specimen Type: BLOOD No comment entered. Ordering Provider: SUNNY APODACA Report Released Date/Time: Jan 27, 2024 07:33 AM Reporting Lab: [facility] [place] [address] [address] Performing Lab: [facility] [place] [facility] [address] [facility] [address] [facility] [place] [facility] CBC MCV [ENTITIC VOLUME] BY AUTOMATED COUNT 97.8 fL 82 - 99 01/28 Specimen Type: BLOOD No comment entered. Ordering Provider: SUNNY APODACA Report Released Date/Time: Jan 27, 2024 07:33 AM Reporting Lab: [facility] [place] [address] [address] Performing Lab: [facility] [place] [address] [address] [facility] [place] [facility] CBC MCHC [MASS/VOLU ME] BY AUTOMATED COUNT 31.7 g/dL 30.8 - 35.1 01/28 Specimen Type: BLOOD No comment entered. Ordering Provider: SUNNY APODACA Report Released Date/Time: Jan 27, 2024 07:33 AM Reporting Lab: [facility] [place] [facility] [address] [facility] [address] Performing Lab: [facility] [place] [facility] [address] [facility] [address] [facility] [place] [facility] CBC PLATELETS [#/VOLUME] IN BLOOD BY AUTOMATED COUNT 178 10*3/uL 140 - 360 01/28 Specimen Type: BLOOD No comment entered. Ordering Provider: SUNNY APODACA Report Released Date/Time: Jan 27, 2024 07:33 AM Reporting Lab: [facility] [place] [facility] [address] [facility] [address] Performing Lab: [facility] [place] [facility] [address] [facility] [address] [facility] [place] [place] [facility] CBC ERYTHROCYT E DISTRIBUTI ON WIDTH [RATIO] BY AUTOMATED COUNT 14.0 12.0 - 16.0 01/28 Specimen Type: BLOOD No comment entered. Ordering Provider: SUNNY APODACA Report Released Date/Time: Jan 27, 2024 07:33 AM Reporting Lab: [facility] [place] [facility] [address] [facility] [address] Performing Lab: [facility] [place] [facility] [address] [facility] [address] [facility] [place] [facility] CBC MCH [ENTITIC MASS] BY AUTOMATED COUNT 31.0 pg 26.2 - 32.6 01/28 Specimen Type: BLOOD No comment entered. Ordering Provider: SUNNY APODACA Report Released Date/Time: Jan 27, 2024 07:33 AM Reporting Lab: [facility] [place] [facility] [address] [facility] [address] Performing Lab: [facility] [place] [facility] [address] [facility] [address] [facility] SERVICESRL [facility] BASIC METABOLI C PANEL (non-fas ting) UREA NITROGEN [MASS/VOLU ME] IN SERUM OR PLASMA 39 mg/dL 7 - 25 11/10 H Specimen Type: SERUM No comment entered. Ordering Provider: SKIP BUTTS Report Released Date/Time: Nov 05, 2023 04:26 PM Reporting Lab: [facility] SERVICESRL TRN [facility] [address] [facility] [address] Performing Lab: [facility] SERVICESRWALKER BAP[facility] MEDICAL CENTERTRN [facility] [address] [facility] [address] [facility] BASIC METABOLI C PANEL (non-fas ting) GLUCOSE [MASS/VOLU ME] IN SERUM OR PLASMA 412 mg/dL 65 - 100 11/10 H Specimen Type: SERUM No comment entered. Ordering Provider: SKIP BUTTS Report Released Date/Time: Nov 05, 2023 04:26 PM Reporting Lab: [facility] SERVICESRWALKER BAPTIST MEDICAL CENTERTRN [facility] [address] [facility] [address] Performing Lab: [facility] SERVICESRL TRN [facility]ENTERUSE[facility] [address] [facility] [address] [facility] SERVICESRUSA HEALTH UNIVERSITY HOSPITALN [facility] BASIC METABOLI C PANEL (non-fas ting) SODIUM [MOLES/VOL UME] IN SERUM OR PLASMA 132 mmol/L 135 - 145 11/10 L Specimen Type: SERUM No comment entered. Ordering Provider: SKIP BUTTS Report Released Date/Time: Nov 05, 2023 04:26 PM Reporting Lab: [facility] SERVICESRL TRN [facility] [address] [facility] [address] Performing Lab: [facility] SERVICESRL TRN [facility]ENTERUSE[address] [address] [facility] SERVICESRUSA HEALTH UNIVERSITY HOSPITALN [facility] BASIC METABOLI C PANEL (non-fas ting) POTASSIUM [MOLES/VOL UME] IN SERUM OR PLASMA 4.6 mmol/L 3.5 - 5.0 11/10 Specimen Type: SERUM No comment entered. Ordering Provider: SKIP BUTTS Report Released Date/Time: Nov 05, 2023 04:26 PM Reporting Lab: [facility] [place] [place] [facility] [address] [facility] [address] Performing Lab: [facility] [place] [facility] [address] [facility] [address] [facility] [place] [facility] BASIC METABOLI C PANEL (non-fas ting) CHLORIDE [MOLES/VOL UME] IN SERUM OR PLASMA 101 mmol/L 100 - 110 11/10 Specimen Type: SERUM No comment entered. Ordering Provider: SKIP BUTTS Report Released Date/Time: Nov 05, 2023 04:26 PM Reporting Lab: [facility] [place] [address] [address] Performing Lab: [facility] [place] [address] [address] [facility] SERVICESRL [facility]N [place] [facility] BASIC METABOLI C PANEL (non-fas ting) CARBON DIOXIDE, TOTAL [MOLES/VOL UME] IN SERUM OR PLASMA 19 meq/L 20 - 30 11/10 L Specimen Type: SERUM No comment entered. Ordering Provider: SKIP BUTTS Report Released Date/Time: Nov 05, 2023 04:26 PM Reporting Lab: [facility] [place] [address] [address] Performing Lab: [facility] [place] [address] [address] [facility] [place] [facility] BASIC METABOLI C PANEL (non-fas ting) CREATININE [MASS/VOLU ME] IN SERUM OR PLASMA 1.99 mg/dL 0.50 - 1.40 11/10 H Specimen Type: SERUM No comment entered. Ordering Provider: SKIP BUTTS Report Released Date/Time: Nov 05, 2023 04:26 PM Reporting Lab: [facility] [place] [place] [address] [address] Performing Lab: [facility] [place] [address] [address] [facility] [facility] BASIC METABOLI C PANEL (non-fas ting) GLOMERULAR FILTRATION RATE/1.73 SQ M.PREDICTE D [VOLUME RATE/AREA] IN SERUM, PLASMA OR BLOOD BY CREATININE -BASED FORMULA (CKD-EPI 2020) 33 mL/min 60 11/10 L Specimen Type: SERUM No comment entered. Ordering Provider: SKIP BUTTS Report Released Date/Time: Nov 05, 2023 04:26 PM Reporting Lab: [facility] SERVICESRWALKER BAPTIST MEDICAL CENTERTRN [facility]ENTERUSE[address] [address] Performing Lab: [facility] CENTERUSE[address] [address] [facility] LIPID PANEL, NON FASTING CHOLESTERO L [MASS/VOLU ME] IN SERUM OR PLASMA 140 mg/dL 11/04 Specimen Type: SERUM No comment entered. Ordering Provider: SKIP BUTTS Report Released Date/Time: Oct 23, 2023 03:32 PM Reporting Lab: [facility] [address] [address] Performing Lab: [facility] [address] [address] [facility] LIPID PANEL, NON FASTING TRIGLYCERI DE [MASS/VOLU ME] IN SERUM OR PLASMA 94 mg/dL 0 - 150 11/04 Specimen Type: SERUM No comment entered. Ordering Provider: SKIP BUTTS Report Released Date/Time: Oct 23, 2023 03:32 PM Reporting Lab: [facility] SERVICESRUSA HEALTH UNIVERSITY HOSPITALN [facility]ENTERUSE[address] [address] Performing Lab: [facility] SERVICESRUSA HEALTH UNIVERSITY HOSPITALN [facility]ENTERUSE[address] [address] [facility] LIPID PANEL, NON FASTING CHOLESTERO L IN LDL [MASS/VOLU ME] IN SERUM OR PLASMA BY CALCULATIO N 72 mg/dL 0 - 129 11/04 Specimen Type: SERUM No comment entered. Ordering Provider: SKIP BUTTS Report Released Date/Time: Oct 23, 2023 03:32 PM Reporting Lab: [facility] SERVICESRUSA HEALTH UNIVERSITY HOSPITALN [address] [place] [address] Performing Lab: [facility] [address] [facility] [address] [facility] LIPID PANEL, NON FASTING CHOLESTERO L.TOTAL/CH OLESTEROL IN HDL [MASS RATIO] IN SERUM OR PLASMA 2.9 11/04 Specimen Type: SERUM No comment entered. Ordering Provider: SKIP BUTTS Report Released Date/Time: Oct 23, 2023 03:32 PM Reporting Lab: [facility] SERVICESRUSA HEALTH UNIVERSITY HOSPITALN [facility] [address] [facility] [address] Performing Lab: [facility] [address] [facility] [address] [facility] LIPID PANEL, NON FASTING CHOLESTERO L IN HDL [MASS/VOLU ME] IN SERUM OR PLASMA 49 mg/dL 40 - 60 11/04 Specimen Type: SERUM No comment entered. Ordering Provider: SKIP BUTTS Report Released Date/Time: Oct 23, 2023 03:32 PM Reporting Lab: [facility] [address] [facility] [address] Performing Lab: [address] [address] [facility] HEMOGLOB IN A1C PANEL HEMOGLOBIN A1C/HEMOGL OBIN.TOTAL IN BLOOD BY HPLC 8.1 4.0 - 5.6 11/04 H Specimen Type: BLOOD Comment: Values obtained from A1C measurement s can vary. For atypical A1C assays, a reported value of 7.0 could actually be between 6.72 and 7.28 if measured by a reference method. A reported value of 9.0 could actually be between 8.73 and 9.27. Ref: http://www. ngsp.org/[place] Pdata.asp Ordering Provider: SKIP BUTTS Report Released Date/Time: Oct 23, 2023 03:32 PM Reporting Lab: [address] [address] Performing Lab: [address] [address] [facility] SERVICESRUSA HEALTH UNIVERSITY HOSPITALN [facility] BASIC METABOLI C PANEL (non-fas ting) UREA NITROGEN [MASS/VOLU ME] IN SERUM OR PLASMA 49 mg/dL 7 - 25 11/04 H Specimen Type: SERUM No comment entered. Ordering Provider: SKIP BUTTS Report Released Date/Time: Oct 23, 2023 03:32 PM Reporting Lab: [facility] SERVICESRUSA HEALTH UNIVERSITY HOSPITALN [address] [address] Performing Lab: [facility] SERVICESRL [facility]ERN [address] [address] [facility] BASIC METABOLI C PANEL (non-fas ting) GLUCOSE [MASS/VOLU ME] IN SERUM OR PLASMA 198 mg/dL 65 - 100 11/04 H Specimen Type: SERUM No comment entered. Ordering Provider: SKIP BUTTS Report Released Date/Time: Oct 23, 2023 03:32 PM Reporting Lab: [facility] SERVICESRUSA HEALTH UNIVERSITY HOSPITALN [address] [address] Performing Lab: [facility] SERVICESRUSA [facility] UNIVERSITY HOSPITALN [address] [address] [facility] BASIC METABOLI C PANEL (non-fas ting) SODIUM [MOLES/VOL UME] IN SERUM OR PLASMA 135 mmol/L 135 - 145 11/04 Specimen Type: SERUM No comment entered. Ordering Provider: SKIP BUTTS Report Released Date/Time: Oct 23, 2023 03:32 PM Reporting Lab: [facility] SERVICESRL TRN [address] [address] Performing Lab: [facility] SERVICESRUSA [facility]ALTH UNIVERSITY HOSPITALN [address] [address] [facility] SERVICESRUSA [facility] UNIVERSITY HOSPITALN [facility] BASIC METABOLI C PANEL (non-fas ting) POTASSIUM [MOLES/VOL UME] IN SERUM OR PLASMA 4.5 mmol/L 3.5 - 5.0 11/04 Specimen Type: SERUM No comment entered. Ordering Provider: SKIP BUTTS Report Released Date/Time: Oct 23, 2023 03:32 PM Reporting Lab: [facility] [place] [facility] [address] [facility] [address] Performing Lab: [facility] [place] [facility] [address] [facility] [address] [facility] [facility] BASIC METABOLI C PANEL (non-fas ting) CHLORIDE [MOLES/VOL UME] IN SERUM OR PLASMA 102 mmol/L 100 - 110 11/04 Specimen Type: SERUM No comment entered. Ordering Provider: SKIP BUTTS Report Released Date/Time: Oct 23, 2023 03:32 PM Reporting Lab: [facility] [place] [facility] [address] [facility] [address] Performing Lab: [facility]ENTERUSETS [address] [address] [facility] SERVICESRL TRN [facility]USE [facility] BASIC METABOLI C PANEL (non-fas ting) CARBON DIOXIDE, TOTAL [MOLES/VOL UME] IN SERUM OR PLASMA 20 meq/L 20 - 30 11/04 Specimen Type: SERUM No comment entered. Ordering Provider: SKIP BUTTS Report Released Date/Time: Oct 23, 2023 03:32 PM Reporting Lab: [facility] SERVICESRL [place] [address] [address] Performing Lab: [facility]ENTERUSETS [address] [address] [facility] SERVICESRL TRN [facility]USE [facility] BASIC METABOLI C PANEL (non-fas ting) CREATININE [MASS/VOLU ME] IN SERUM OR PLASMA 2.33 mg/dL 0.50 - 1.40 11/04 H Specimen Type: SERUM No comment entered. Ordering Provider: SKIP BUTTS Report Released Date/Time: Oct 23, 2023 03:32 PM Reporting Lab: [facility] [place] [facility] [address] [facility] [address] Performing Lab: [facility] [place] [address] [address] [facility] SERVICESRL [facility] [place] [facility] BASIC METABOLI C PANEL (non-fas ting) GLOMERULAR FILTRATION RATE/1.73 SQ M.PREDICTE D [VOLUME RATE/AREA] IN SERUM, PLASMA OR BLOOD BY CREATININE -BASED FORMULA (CKD-EPI 2020) 27 mL/min 60 11/04 L Specimen Type: SERUM No comment entered. Ordering Provider: SKIP BUTTS Report Released Date/Time: Oct 23, 2023 03:32 PM Reporting Lab: [facility] [place] [address] [address] Performing Lab: [facility] [place] [address] [address] [facility] SERVICESRL [place] [place] [facility] MICROALB UMIN CREATINI NE RATIO PANEL MICROALBUM IN/CREATIN INE [MASS RATIO] IN URINE cancmg/g 0 - 29.9 11/04 Specimen Type: URINE No comment entered. Ordering Provider: SKIP BUTTS Report Released Date/Time: Oct 23, 2023 03:32 PM Reporting Lab: [facility] SERVICESRL [place] [place] [address] [address] Performing Lab: [facility] [place] [address] [address] [facility] SERVICESRL [place] [facility] MICROALB UMIN CREATINI NE RATIO PANEL MICROALBUM IN [MASS/VOLU ME] IN URINE < 0.5mg/dL 11/04 Specimen Type: URINE No comment entered. Ordering Provider: SKIP BUTTS Report Released Date/Time: Oct 23, 2023 03:32 PM Reporting Lab: [facility] [place] [address] [address] Performing Lab: [facility] [place] [address] [address] [facility] [place] [facility] MICROALB UMIN CREATINI NE RATIO PANEL CREATININE [MASS/VOLU ME] IN URINE 18.58 mg/dL 11/04 Specimen Type: URINE No comment entered. Ordering Provider: SKIP BUTTS Report Released Date/Time: Oct 23, 2023 03:32 PM Reporting Lab: [facility] [place] [address] [address] Performing Lab: [facility] [place] [facility] [address] [facility] [address] [facility] [place] [facility] OCCULT BLOOD FIT X1 SCREEN(I N-HOUSE) HEMOGLOBIN .GASTROINT ESTINAL.LO WER [PRESENCE] IN STOOL BY IMMUNOASSA Y Negative 08/16 Specimen Type: FECES No comment entered. Ordering Provider: BRENDA MARKS Report Released Date/Time: August 14, 2023 03:34 PM Reporting Lab: [facility] [place] [facility] [address] [facility] [address] Performing Lab: [facility] [place] [facility] [address] [facility] [address] [facility] [place] [place] [facility] Vital Signs Combined list of inpatient and outpatient Vital Signs from Department of Defense and Veterans Affairs, ranging from 12 months to all on record, depending upon the facility. Vital Sign Value Date Comments Source SYSTOLIC BLOOD PRESSURE 144 01/06/20 09:24:02 [facility] [place] [facility] DIASTOLIC BLOOD PRESSURE 65 024 09:24:02 [facility] [place] [facility] PULSE OXIMETRY 98 01/06/2024 09:24:02 [facility] [place] [facility] WEIGHT 180 01/06/2024 09:24:02 [facility] [place] [facility] BMI 29kg/m2 01/06/2024 09:24:02 [facility] [place] [facility] PAIN 0 01/06/2024 09:24:02 [facility] [place] [facility] TEMPERATURE 97.6 01/06/2024 09:24:02 [facility] [place] [facility] PULSE 78 01/06/2024 09:24:02 [facility] [place] [facility] RESPIRATION 16 01/06/2024 09:24:02 [facility] [place] [facility] SYSTOLIC BLOOD PRESSURE 109 11/13/19 24 09:26:00 [facility] [place] [facility] DIASTOLIC BLOOD PRESSURE 62 024 09:26:00 [facility] [place] [facility] PULSE OXIMETRY 96 11/13/2023 09:26:00 [facility] [place] [facility] WEIGHT 177 11/13/2023 09:26:00 [facility] [place] [facility] BMI 29kg/m2 11/13/2023 09:26:00 [facility] [place] [facility] PAIN 0 11/13/2023 09:26:00 [facility] [place] [facility] HEIGHT 66 11/13/2023 09:26:00 [facility] [place] [facility] TEMPERATURE 97.9 11/13/2023 09:26:00 [facility] [place] [facility] PULSE 98 11/13/2023 09:26:00 [facility] [place] [facility] RESPIRATION 16 11/13/2023 09:26:00 [facility] [place] [facility] SYSTOLIC BLOOD PRESSURE 95 08/13/19 10:04:27 [facility] [place] [facility] DIASTOLIC BLOOD PRESSURE 51 024 10:04:27 [facility] [place] [facility] PULSE OXIMETRY 93 08/13/2023 10:04:27 [facility] [place] [facility] WEIGHT 176.2 08/13/2023 10:04:27 [facility] [place] [facility] BMI 28kg/m2 08/13/2023 10:04:27 [facility] [place] [facility] PAIN 0 08/13/2023 10:04:27 [facility] [place] [facility] TEMPERATURE 97.2 08/13/2023 10:04:27 [facility] [place] [facility] PULSE 69 08/13/2023 10:04:27 [facility] [place] [facility] RESPIRATION 18 08/13/2023 10:04:27 [facility] [place] [facility] SYSTOLIC BLOOD PRESSURE 116 06/25/19 24 13:02:32 [facility] [place] [facility] DIASTOLIC BLOOD PRESSURE 59 024 13:02:32 [facility] [place] [facility] PULSE OXIMETRY 95 06/25/2023 13:02:32 [facility] [place] [facility] WEIGHT 178 06/25/2023 13:02:32 [facility] [place] [facility] BMI 29kg/m2 06/25/2023 13:02:32 [facility] [place] [facility] PAIN 0 06/25/2023 13:02:32 [facility] [place] [facility] HEIGHT 66 06/25/2023 13:02:32 [facility] [place] [facility] TEMPERATURE 98.2 06/25/2023 13:02:32 [facility] [place] [facility] PULSE 69 06/25/2023 13:02:32 [facility] [place] [facility] RESPIRATION 18 06/25/2023 13:02:32 [facility] [place] [facility] SYSTOLIC BLOOD PRESSURE 118 05/07/19 24 13:27:24 [facility] [place] [facility] DIASTOLIC BLOOD PRESSURE 50 024 13:27:24 [facility] [place] [facility] PULSE OXIMETRY 95 05/07/2023 13:27:24 [facility] [place] [facility] WEIGHT 182 05/07/2023 13:27:24 [facility] [place] [facility] BMI 29kg/m2 05/07/2023 13:27:24 [facility] [place] [facility] PAIN 0 05/07/2023 13:27:24 [facility] [place] [facility] HEIGHT 66 05/07/2023 13:27:24 [facility] [place] [facility] TEMPERATURE 98.1 05/07/2023 13:27:24 [facility] [place] [facility] PULSE 88 05/07/2023 13:27:24 [facility] [place] [facility] RESPIRATION 16 05/07/2023 13:27:24 [facility] [place] [facility] Encounters Combined list of: 1) Encounters from Department of Veterans Affairs facilities going back up to [facility] 18 months. 2) Encounters from the Department of Defense facilities going back up to 280 months. Location Location Details Encounter Type Encounter Number Reason For Visit Attending Provider ADM Date DC Date Status Disposition Source [place] [facility] Outpatient Encounter [id number] JUDD BUTTS 10/06 [place] [facility] Q[facility]P OL DIG ASSMT&MGMT 5-10 [id number] Diagnos is: ICD-10- CM Z04.89 [facility] for examina tion and observa tion for oth reasons
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
MOODY ANNE 10/17 [facility] (631GE) [facility] [place] [facility] Outpatient Encounter [id number] SIXTO SCHNEIDER P 10/18 [facility] [place] [facility] Out[facility] Encounter [id number] JUDD BUTTS CE 10/24 [facility] En[facility] [id number] JUDD BUTTS 11/17 [facility] En[facility] [id number] MELISSA FARIA 12/05 [facility] En[facility] [id number] 12/10 [facility] En[facility] [id number] JUDD BUTTS 12/16 [facility] OFF[facility] O/P EST MOD 30-39 MIN [id number] Diagnos is: ICD-10- CM E11.8 Type 2 diabete s mellitu s with unspeci fied complic ations< br/> MYRTLE ARITA MMED JAWED 12/24 [facility] O/P EST SF 10-19 MIN [id number] Diagnos is: ICD-10- CM E11.8 Type 2 diabete s mellitu s with unspeci fied complic ations< br/> Stephie MORTON AVID 12/25 [facility] En[facility] [id number] JUDD BUTTS 01/03 [facility] En[facility] [id number] JUDD BUTTS 01/06 [facility] [place] [facility] QNHP OL DIG ASSMT&MGMT 5-10 [id number] Diagnos is: ICD-10- CM Z04.89 [facility] for examina tion and observa tion for oth reasons
DEBBIE OROZCO 01/06 [facility] OFF/OP EST MAY X REQ PHY/QHP [id number] Diagnos is: ICD-10- CM E11.8 Type 2 diabete s mellitu s with unspeci fied complic ations< br/> ABDON CAMPOS 01/09 [facility] [place] [facility] [place] OFFICE O/P EST HI 40-54 MIN [id number] Diagnos is: ICD-10- CM E11.8 Type 2 diabete s mellitu s with unspeci fied complic ations< br/> JUDD BUTTS 01/09 [facility] [place] [facility] CONT GLUC MNTR ANALYSIS I&R [id number] Diagnos is: ICD-10- CM E11.8 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
DEBBIE OROZCO 03/31 [facility] [place] Out[facility] Encounter [id number] 04/09 [facility] [place] Out[facility] Encounter [id number] 04/28 [facility] [place] OFF/OP CONSLTJ NEW/EST HI 55 [id number] Diagnos is: ICD-10- CM E11.8 Type 2 diabete s mellitu s with unspeci fied complic ations< br/> JUDD BUTTS 04/30 [facility] [place] [place] [facility] QNHP OL DIG ASSMT&MGMT 5-10 [id number] Diagnos is: ICD-10- CM Z04.89 Encount er for examina tion and observa tion for oth reasons
USCHIP BOBBYZA 05/01 [facility] [place] [facility] ([id number]) QNHP OL DIG ASSMT&MGMT 5-10 [id number] Diagnos is: ICD-10- CM Z79.01 group home (curren t) use of anticoa gulants
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< br/> Stephie MORTON 05/06 [facility] [place] CONT GLUC MNTR PHYS/QHP EQP [id number] Diagnos is: ICD-10- CM E11.8 Type 2 diabete s mellitu s with unspeci fied complic ations< br/> ABDON CAMPOS M 05/07 [facility] [place] [facility] [place] [facility] CONT GLUC MNTR ANALYSIS I&R [id number] Diagnos is: ICD-10- CM E11.8 Type 2 diabete s mellitu s with unspeci fied complic ations< br/> BUTTS,ALI CE 05/07 [facility] [place] [facility] [place] [facility] Outpatient Encounter [id number] BUTTS,ALI CE 05/07 [facility] [place] [facility] [place] [facility] Outpatient Encounter [id number] 06/10 [facility] [place] [facility] [place] [facility] OFFICE O/P EST MOD 30 MIN [id number] Diagnos is: ICD-10- CM Z95.0 Presenc e of cardiac pacemak er
MYRTLE ARITA MMED JAWED 06/24 [facility] [place] [facility] [place] [facility] QNHP OL DIG ASSMT&MGMT 5-10 [id number] Diagnos is: ICD-10- CM Z04.89 Encount er for examina tion and observa tion for oth reasons
DEBBIE OROZCO ISTIE J 07/20 [facility] [place] [facility] [place] [facility] MTMS BY PHARM EST 15 MIN [id number] Diagnos is: ICD-10- CM Z51.81 Encount er for therape utic drug level monitor ing<br/ > RASHAWN HARRINGTON ISTINE F 07/31 [facility] [place] [facility] Out[facility] Encounter [id number] JUDD BUTTS CE 08/05 [facility] [place] QNHP OL DIG ASSMT&MGMT 5-10 [id number] Diagnos is: ICD-10- CM Z04.89 Encount er for examina tion and observa tion for oth reasons
GINA SERRANO JENNY 08/06 [facility] CONT GLUC MNTR PT PROV EQP [id number] Diagnos is: ICD-10- CM E11.8 Type 2 diabete s mellitu s with unspeci fied complic ations< br/> CARDENASVICT ORIA A 08/12 [facility] [place] CONT GLUC MNTR ANALYSIS I&R [id number] Diagnos is: ICD-10- CM E11.8 Type 2 diabete s mellitu s with unspeci fied complic ations< br/> JUDD BUTTS 08/12 [facility] [place] Out[facility] Encounter [id number] JUDD BUTTS 08/20 [facility] [place] Out[facility] Encounter [id number] 08/27 [facility] [place] TRIM NAIL(S) [id number] Diagnos is: ICD-10- CM E11.42 Type 2 diabete s mellitu s with diabeti c polyneu ropathy
JB JONAS 09/03 [facility] [place] DIABETIC CUSTOM MOLDED SHOE [id number] Diagnos is: ICD-10- CM E11.42 Type 2 diabete s mellitu s with diabeti c polyneu ropathy
GLORIA CASTILLOUS 09/22 [facility] QNHP OL DIG ASSMT&MGMT 5-10 [id number] 1. Diagnos is: ICD-10- CM Z04.89 Encount er for examina tion and observa tion for oth reasons
MOODY ANNE 11/03 [facility] [place] [place] [facility] Outpatient Encounter [id number] 1. Diagnos is: ICD-10- CM E11.8 Type 2 diabete s mellitu s with unspeci fied complic ations< br/> JUDD BUTTS 11/04 [facility] [place] [place] [facility] Outpatient Encounter [id number] 1. JUDD BUTTS 11/10 [facility] [place] [facility] CONT GLUC MNTR PT PROV EQP [id number] 1. Diagnos is: ICD-10- CM E11.8 Type 2 diabete s mellitu s with unspeci fied complic ations< br/> ABDON CAMPOS 11/12 [facility] [place] [facility] [place] [facility] OFFICE O/P EST HI 40 MIN [id number] 1. Diagnos is: ICD-10- CM E11.8 Type 2 diabete s mellitu s with unspeci fied complic ations< br/> JUDD BUTTS CE 11/12 [facility] [place] [facility] [place] QNHP OL DIG ASSMT&MGMT 5-10 [id number] Diagnos is: ICD-10- CM E11.8 Type 2 diabete s mellitu s with unspeci fied complic ations< br/> BRENNEN,TAWANNA IE 11/12 [facility] [place] CONT GLUC MNTR ANALYSIS I&R [id number] 1. Diagnos is: ICD-10- CM E11.8 Type 2 diabete s mellitu s with unspeci fied complic ations< br/> JUDD BUTTS CE 11/12 [facility] [place] Out[facility] Encounter [id number] 1.11/16 [facility] [place] Out[facility] Encounter [id number] 1.12/08 [facility] [place] Out[facility] Encounter [id number]/[id number] [facility] [place] [place] DEBRIDE NAIL 6 OR MORE [id number] Diagnos is: ICD-10- CM E11.42 Type 2 diabete s mellitu s with diabeti c polyneu ropathy
JB JONAS LIAM 12/30 [facility] [place] Out[facility] Encounter [id number]/[id number] [facility] [place] [facility] [place] [facility] OFFICE O/P EST LOW 20 MIN [id number] Diagnos is: ICD-10- CM Z95.0 Presenc e of cardiac pacemak er
Debi APODACA 01/05 [facility] [place] Out[facility] Encounter [id number] [facility] [place] DIAB MANAGE TRN PER INDIV [id number] 1. Diagnos is: ICD-10- CM E11.8 Type 2 diabete s mellitu s with unspeci fied complic ations< br/> KELLI ROSAS NNIE P 01/12 [facility] OT EVAL LOW COMPLEX 30 MIN [id number] 1. Diagnos is: ICD-10- CM Z74.09 Other reduced mobilit y
WOODROW BAI 01/18 [facility] Out[facility] Encounter [id number] APRILJONAH MATOS 01/25 [facility] [place] Out[facility] Encounter [id number] ALONZOELLAPUJAASHLEY JONAH 02/09 [facility] [place] Outpatient Encounter [id number] Diagnos is: ICD-10- CM Z04.89 Encount er for examina tion and observa tion for oth reasons
DEBBIE OROZCO 02/11 [facility] [place] DIAB MANAGE TRN PER INDIV [id number] Diagnos is: ICD-10- CM E11.8 Type 2 diabete s mellitu s with unspeci fied complic ations< br/> KELLI ROSAS NNIE P 02/22 [facility] [place] Outpatient Encounter [id number] 02/23 [facility] [place] Outpatient Encounter [id number] JUDD BUTTS CE 02/23 [facility] [place] [facility] [place] [facility] Outpatient Encounter [id number] 1. Diagnos is: ICD-10- CM E11.8 Type 2 diabete s mellitu s with unspeci fied complic ations< br/> JUDD BUTTS 02/24 [facility] [place] [facility] [place] [facility] [place] [id number] Diagnos is: ICD-10- CM E11.9 Type 2 diabete s mellitu s without complic ations< br/> JEWELS SHELLEY Y J 03/03 [facility] [place] [facility] [place] [facility] CMPTR OPHTH IMG OPTIC NERVE [id number] 1. Diagnos is: ICD-10- CM H40.013 Open angle with borderl ine finding s, low risk, bilater al
KARSTEN,LACE Y J 03/03 [facility] [place] [facility] Social History Combined list of available smoking, tobacco, and other social history from Department of Defense and Veterans Affairs facilities. Social History Type Response Date Comment Source Tobacco smoking status [facility] VA-TOBACCO FORMER USER 01/06/2024 [facility] History of tobacco use VA-TOBACCO QUIT 15 YRS OR MORE 01/06/2024 [facility] History of tobacco use VA-TOBACCO FORMER USER 12/24/2022 [facility] History of tobacco use VA-TOBACCO FORMER USER 12/24/2021 [facility] History of tobacco use VA-TOBACCO QUIT 5 TO < 15 YRS 12/14/2020 [facility] History of tobacco use VA-TOBACCO FORMER USER 11/15/2019 [facility] History of tobacco use VA-TOBACCO QUIT 5 TO < 15 YRS 10/20/2017 [facility] History of tobacco use QUIT TOBACCO USE > 7 YEARS AGO 09/04/2017 [facility] History of tobacco use QUIT TOBACCO USE > 7 YEARS AGO 10/16/2016 [facility] History of tobacco use QUIT TOBACCO USE > 7 YEARS AGO 02/20/2015 quit 2009-cigarettes and cigars for 45 years [facility] This section is an empty social history section. [facility] Plan of Care List of future care activities from [facility] facilities. Additional future care activities may be listed in the Assessment and Plan section. Date/Time Care Activity Care Activity Detail Facili ty 03/30/2024 AMBULATORY - MEDICINE AMBULATORY - [facility] 03/31/2024 AMBULATORY - MEDICINE AMBULATORY - MEDICI NE [facility] 04/07/2024 AMBULATORY - MEDICINE AMBULATORY - MEDICI NE [facility] 05/17/2024 AMBULATORY - MEDICINE AMBULATORY - MEDICI NE [facility] 07[facility]08/2024 AMBULATORY - [facility]IC[facility] Laboratory - Laboratory Geneticist ry Order HEMOGLOBIN A1C PANEL BLO[facility] (LA[facility]OOD[facility]/26/2024 Laboratory - Laboratory Geneticist ry Order MICROALBUMIN CREATININE RATIO PANEL URINE (RANDOM) [facility] 03/26/2024 Laboratory - Laboratory Geneticist ry Order LIPID PANEL FASTING BLOOD (SST-SERUM) [facility] 03/26/2024 Laboratory - Laboratory Geneticist ry Order BASIC METABOLIC PANEL (non-fasting) BLOOD (SST-SERUM) [facility] Advance Directives List of completed, amended, or rescinded Advance Directives on record at [facility] facilities. An actual copy of the Directive is not included. Date Advance Directive Provider Source 03/23/2014 ADVANCE DIRECTIVE ROSALINDA SHELBY [facility]
--- OUTSIDE RECORDS SUMMARY | 2024-03-26 16:25 | XMS_ITS | Encounter Summary ---
Author Name [facility] [facility] [place] [facility] [place] Address [address] [place] [id number] Care Team Providers Care Human Resources Coordinator Name Role Phone AJAY APODACA Primary [...] PART A Nov 22, 2006 PART A [id number] [phone] TONY LOGAN PATIENT MEDICARE (WNR) MEDICARE (M) PART B Nov 22, 2006 PART B [id number] TONY LOGAN PATIENT MEDICARE (WNR) MEDICARE (M) PART A Nov 22, 2006 PART A [id number] TONY LOGAN PATIENT MEDICARE (WNR) MEDICARE (M) PART B Nov 22, 2006 PART B [id number] TONY LOGAN PATIENT FOR LIFE TFL* Apr 20, 2014 [id number] SUKHJINDER LOGAN JR PATIENT Selected Encounter This section includes the information on record at [place] for the Encounter. Date/Time Encounter Type Encounter Description Reason Provider Source May 07, 2023 01:30 PM CONT GLUC MNTR ANALYSIS I&R ENDOCRINOLOGY ICD-10-CM E11.8 Type 2 diabetes mellitus with unspecified complications MIAH BUTTS [facility] Encounter Template Text not used by [place] Assessments - Encounter Diagnoses This section includes the primary and secondary diagnoses documented for the Encounter. Date/Time Primary/Secondary Diagnosis Diagnosis Name Provider Source Jun 05, 2023 08:00 PM PRIMARY Type 2 diabetes mellitus with unspecified complications MIAH BUTTS [facility] Plan of Treatment: Future Appointments (+ 6 months) and Future Tests (+/- 45 days) The Plan of Treatment section includes future care activities [facility] the [facility] This section includes future appointments and future orders which are active, pending or scheduled. Future Appointments This section includes appointments that were scheduled to occur 6 months from the date of the Encounter, up to a maximum of 20 appointments. The data comes from all [place] treatment facilities. Appointment Date/Time Appointment Type Appointme nt Facility Name Jun 25, 2023 01:00 PM AMBULATORY - MEDICINE [place] [facility] [place] [facility] August 13, 2023 10:00 AM AMBULATORY - MEDICINE [place] [facility] [place] [facility] Sep 04, 2023 11:00 AM AMBULATORY MEDICINE [place] [facility] [place] [facility] Sep 23, 2023 09:00 AM AMBULATORY - MEDICINE [facility] Lab Results: +/- 30 days of the encounter This section includes the Chemistry and Hematology Lab Results on record with [place] for the patient. Radiology Reports and Pathology Reports are provided separately, in subsequent sections. Lab Results This section contains the Chemistry/Hematology Results that were resulted 30 days before or 30 daysafter the date of the Encounter. Date/Time Source Result Type Result - Unit Interpretation Reference Range Comment May 05, 2023 07:48 AM [facility] LIPID PANEL FASTING Specimen Type: SERUM No comment entered. Ordering Provider: MIAH BUTTS Report Released Date/Time: Jan 05, 2023 07:44 PM Reporting Lab: [address] [address] Performing Lab: [address] [address] CHOLESTEROL 86 mg/dL TRIGLYCERIDE 74 mg/dL 0-150 LDL calculated 40 mg/dL 0-129 CHOL/HDL 2.8 HDL CHOLESTEROL 31 mg/dL L 40-60 May 05, 2023 07:48 AM [facility] HEMOGLOBIN A1C PANEL Specimen Type: BLOOD Comment: [...] Jan 05, 2023 07:44 PM Reporting Lab: [address] [address] Performing Lab: [address] [address] HEMOGLOBIN A1C 7.2 H 4.0-5.6 May 05, 2023 07:48 AM [facility] MICROALBUMIN CREATININE RATIO PANEL Specimen Type: URINE No comment entered. Ordering Provider: MIAH BUTTS Report Released Date/Time: Jan 05, 2023 07:44 PM Reporting Lab: [address] [address] Performing Lab: [address] [address] MICROALBUMIN/C REATININE RATIO canc mg/g 0-29.9 MICROALBUMIN,Q UANTITATIVE < 0.5 mg/dL RR UNAVAIL CREATININE URINE 37.09 mg/dL May 05, 2023 07:48 AM [facility] BASIC METABOLIC PANEL (fasting) Specimen Type: SERUM No comment entered. Ordering Provider: MIAH BUTTS Report Released Date/Time: Jan 05, 2023 07:44 PM Reporting Lab: [address] [address] Performing Lab: [address] [address] UREA NITROGEN 17 mg/dL 7-25 GLUCOSE 148 mg/dL H 65-100 SODIUM 140 mmol/L 135-145 POTASSIUM 4.4 mmol/L 3.5-5.0 CHLORIDE 110 mmol/L 100-110 CO2 21 meq/L 20-30 CREATININE, Serum 1.45 mg/dL H 0.50-1.40 eGFR(CKD-EPI 2020) 48 mL/min L >60 Vital Signs: All taken on the encounter date This section contains inpatient and outpatient Vital Signs collected on the date of the Encounter. Date/Time Temperature Pulse Blood Pressure Respiratory Rate SP02 Pain Height Weight Body Mass Index Source May 07, 2023 01:27 PM 98.1 88 118/50 16 95 0 66 182 29 [place] [facility] [place] [facility] Social History: Smoking Status (Most current) and Tobacco Use (All prior to encounter date) This section includes the most current, and the historical, smoking and tobacco- related health factors from the [place] facility where the Encounter took place. Current Smoking Status This section includes the most current smoking, or tobacco-related health factor, from the [place] facility where the Encounter took place. Date/Time Current Smoking Status Comment [facility] Dec 24, 2022 10:30 AM VA-TOBACCO QUIT 15 YRS OR [facility] Tobacco Use History This section includes a history of the smoking, or tobacco-related health factors, that were collected on or before the date of the Encounter. The data comes from the [place] facility where the Encounter took place. Date/Time Smoking Status/Tobac co Use Comment Facility Dec 24, 2022 10:30 AM VA-TOBACCO QUIT 15 YRS OR MORE [place] [facility] [place] [facility] Dec 24, 2021 10:00 AM VA-TOBACCO FORMER USER [place] [facility] [place] [facility] Dec 24, 2021 10:00 AM VA-TOBACCO QUIT 5 TO < 15 YRS [facility] [place] [facility] Dec 14, 2020 08:30 AM VA-TOBACCO FORMER USER [facility] [place] [facility] Dec 14, 2020 08:30 AM VA-TOBACCO QUIT 5 TO < 15 YRS [place] [facility] [place] [facility] Nov 15, 2019 11:00 AM VA-TOBACCO FORMER USER [facility] Nov 15, 2019 11:00 AM VA-TOBACCO QUIT 5 TO < 15 YRS [facility] Oct 20, 2017 08:19 AM VA-TOBACCO FORMER USER [facility] Oct 20, 2017 08:19 AM VA-TOBACCO QUIT 5 TO < 15 YRS [facility] Sep 04, 2017 11:09 AM QUIT TOBACCO USE > 7 YEARS AGO [facility] Oct 16, 2016 09:08 AM QUIT TOBACCO USE > 7 YEARS AGO [facility] Feb 20, 2015 10:58 AM QUIT TOBACCO USE > 7 YEARS AGO quit 2009-cigarettes and cigars for 45 years [facility] Advance Directives: All historical and current Section Date Range: From patient's date of to the date document was created. This section includes ALL of a patient's completed or amended [place] Advance and Rescinded Directives. The entries below indicate that a directive exists for the patient, but an actual copy is not included with this document. The data comes from all [place] facilities. Date Advance Directives Provider Source Mar 23, 2014 ADVANCE DIRECTIVE ROSALINDA SHELBY [facility] Encounter Notes: All associated encounter notes This section contains the clinical notes associated to the Encounter. Date/Time Encounter Note(s) Provider Source May 07, 2023 02:08 PM PHYSICIAN NOTE: LOCAL TITLE: MD NOTE STANDARD TITLE: PHYSICIAN NOTE DATE OF NOTE: MAY 07, 2023@14:08 ENTRY DATE: MAY 07, 2023@14:09:03 AUTHOR: MIAH BUTTS COSIGNER: URGENCY: STATUS: COMPLETED Dx: Type 2 diabetes Pt Name: Tony Logan Pt : 1940 MR# [id number] Indication for device placement Date placed: Apr 24 2023 Date removed (date to which the CPT code is linked): May 07 2023 Name of device placed: Freestyle josias 2 date of printout of data: Date of interpretation: May 07 2023 Analysis of data (72 hours or more of monitoring required): Capture 69% Average 169 GMI 7.4% %CV 26.4% Very high 5% High 29% In range 65% Low 1% Very low 0% MN 160, 4AM 142, 8AM 200, noon 182, 4PM 180, 8PM 161 Variability moderate Interpretation of data He would benefit from an increase in bfast bolus insulin, and a decrase in lunch bolus insulin. /jus/ MIAH BUTTS MD STAFF PHYSICIAN Signed: 05/07/2023 14:13 MIAH BUTTS [facility]
--- OUTSIDE RECORDS SUMMARY | 2024-03-26 16:25 | XMS_ITS | Encounter Summary ---
Author Name [facility] of [facility] Affairs [place]) Organization Department of [place] [place] Address [address] [place] [address] Care Team Providers Care Quarry Supervisor Dimension Stone Name Role Phone AJAY APODACA Primary Care [...] PART A Nov 22, 2006 PART A [id number] [phone] TONY CASTELLON PATIENT MEDICARE (WNR) MEDICARE (M) PART B Nov 22, 2006 PART B [id number] TONY CASTELLON PATIENT MEDICARE (WNR) MEDICARE (M) PART A Nov 22, 2006 PART A [id number] [phone] TONY CASTELLON PATIENT MEDICARE (WNR) MEDICARE (M) PART B Nov 22, 2006 PART B [id number] TONY CASTELLON PATIENT FOR LIFE TFL* Apr 20, 2014 [id number] SUKHJINDER CASTELLON JR PATIENT Selected Encounter This section includes the information on record at MD for the Encounter. Date/Time Encounter Type Encounter Description Reason Provider Source May 07, 2023 01:28 PM CONT GLUC MNTR PHYS/QHP EQP GENERAL INTERNAL MEDICINE ICD-10-CM E11.8 Type 2 diabetes mellitus with unspecified complications STUART CAMPOS IH Encounter Template Text not used by MD Assessments - Encounter Diagnoses This section includes the primary and secondary diagnoses documented for the Encounter. Date/Time Primary/Secondary Diagnosis Diagnosis Name Provider Source May 07, 2023 01:28 PM PRIMARY Type 2 diabetes mellitus with unspecified complications STUART CAMPOS [facility] [place] [facility] Plan of Treatment: Future Appointments (+ 6 months) and Future Tests (+/- 45 days) The Plan of Treatment section includes future care activities for the patient [facility] This section includes future appointments and future orders which are active, pending or scheduled. Future Appointments This section includes appointments that were scheduled to occur 6 months from the date of the Encounter, up to a maximum of 20 appointments. The data comes from all MD treatment facilities. Appointment Date/Time Appointment Type Appointme nt Facility Name Jun 25, 2023 01:00 PM AMBULATORY - MEDICINE [place] C [facility] [place] [facility] August 13, 2023 10:00 AM AMBULATORY - MEDICINE [place] C [facility] [place] [facility] Sep 04, 2023 11:[address] [facility] [facility] Sep 23, 2023 09:00 AM AMBULATORY - MEDICINE [facility] [place] [facility] Lab Results: +/- 30 days of the encounter This section includes the Chemistry and Hematology Lab Results on record with MD for the patient. Radiology Reports and Pathology Reports are provided separately, in subsequent sections. Lab Results This section contains the Chemistry/Hematology Results that were resulted 30 days before or 30 daysafter the date of the Encounter. Date/Time Source Result Type Result - Unit Interpretation Reference Range Comment May 05, 2023 07:48 AM [facility] [place] [facility] MICROALBUMIN CREATININE RATIO PANEL Specimen Type: URINE No comment entered. Ordering Provider: MIAH BUTTS Report Released Date/Time: Jan 05, 2023 07:44 PM Reporting Lab: [facility] [place] [address] [address] Performing Lab: [facility] [address] [facility] [address] MICROALBUMIN/C REATININE RATIO canc mg/g 0-29.9 MICROALBUMIN,Q UANTITATIVE < 0.5 mg/dL RR UNAVAIL CREATININE URINE 37.09 mg/dL May 05, 2023 07:48 AM [facility] LIPID PANEL FASTING Specimen Type: SERUM No comment entered. Ordering Provider: MIAH BUTTS Report Released Date/Time: Jan 05, 2023 07:44 PM Reporting Lab: [facility] [address] [facility] [address] Performing Lab: [address] [address] CHOLESTEROL 86 mg/dL TRIGLYCERIDE 74 mg/dL 0-150 LDL calculated 40 mg/dL 0-129 CHOL/HDL 2.8 HDL CHOLESTEROL 31 mg/dL L 40-60 May 05, 2023 07:48 AM [facility] HEMOGLOBIN A1C PANEL Specimen Type: BLOOD [...] Jan 05, 2023 07:44 PM Reporting Lab: [address] [address] Performing Lab: [address] [address] HEMOGLOBIN A1C 7.2 H 4.0-5.6 May 05, 2023 07:48 AM [facility] BASIC METABOLIC PANEL (fasting) Specimen Type: SERUM No comment entered. Ordering Provider: MIAH BUTTS Report Released Date/Time: Jan 05, 2023 07:44 PM Reporting Lab: [address] [address] Performing Lab: [facility] [address] [facility] [address] UREA NITROGEN 17 mg/dL 7-25 GLUCOSE 148 [...] 118/50 16 95 0 66 182 29 [facility] Social History: Smoking Status (Most current) and Tobacco Use (All prior to encounter date) This section includes the most current, and the historical, smoking and tobacco- related health factors from the MD facility where the Encounter took place. Current Smoking Status This section includes the most current smoking, or tobacco-related health factor, from the MD facility where the Encounter took place. Date/Time Current Smoking Status Comment [facility] Dec 24, 2022 10:30 AM VA-TOBACCO FORMER USER [facility] Tobacco Use History This section includes a history of the smoking, or tobacco-related health factors, that were collected on or before the date of the Encounter. The data comes from the MD facility where the Encounter took place. Date/Time Smoking Status/Tobac co Use Comment Facility Dec 24, 2022 10:30 AM VA-TOBACCO QUIT 15 YRS OR MORE [facility] Dec 24, 2021 10:00 AM VA-TOBACCO FORMER USER [facility] Dec 24, 2021 10:00 AM VA-TOBACCO QUIT 5 TO < 15 YRS [place] [facility] [place] [facility] Dec 14, 2020 08:30 AM VA-TOBACCO FORMER USER [place] [facility] [facility] Dec 14, 2020 08:30 AM VA-TOBACCO QUIT 5 TO < 15 YRS [facility] Nov 15, 2019 11:00 AM VA-TOBACCO FORMER USER [facility] Nov 15, 2019 11:00 AM VA-TOBACCO QUIT 5 TO < 15 YRS [facility] Oct 20, 2017 08:19 AM VA-TOBACCO FOR[facility] Oct 20, 2017 08:19 AM VA-TOBACCO QUIT 5 TO < 15 YRS [facility] Sep 04, 2017 11:09 AM QUIT TOBACCO USE > 7 YEARS AGO [facility] Oct 16, 2016 09:08 AM QUIT TOBACCO USE > 7 YEARS AGO [facility] Feb 20, 2015 10:58 AM QUIT TOBACCO USE > 7 YEARS AGO quit 2009-cigarettes and cigars for 45 years [facility] Advance Directives: All historical and current Section Date Range: From patient's date of to the date document was created. This section includes ALL of a patient's completed or amended MD Advance and Rescinded Directives. The entries below indicate that a directive exists for the patient, but an actual copy is not included with this document. The data comes from all MD facilities. Date Advance Directives Provider Source Mar 23, 2014 ADVANCE DIRECTIVE ROSALINDA SHELBY [facility] Encounter Notes: All associated encounter notes This section contains the clinical notes associated to the Encounter. Date/Time Encounter Note(s) Provider Source May 07, 2023 01:28 PM DIABETOLOGY NOTE: LOCAL TITLE: INSULIN PUMP/CGM DOWNLOAD (T) STANDARD TITLE: DIABETOLOGY NOTE DATE OF NOTE: MAY 07, 2023@13:28 ENTRY DATE: MAY 07, 2023@13:29:02 AUTHOR: STUART CAMPOS EXP COSIGNER: URGENCY: STATUS: COMPLETED Please select: Personal Continuous Glucose Monitor Date of Documentation:Apr Please see attached scanned document in [facility] [place] 2 Dx: Type 2 DM /es/ STUART CAMPOS RN Signed: 05/07/2023 13:32 STUART CAMPOS [facility]
--- OUTSIDE RECORDS SUMMARY | 2024-03-26 16:25 | XMS_ITS | Encounter Summary ---
Author Name [facility] [place] Organization [place] Address [address] [place] [address] Care Team Providers Care Director Risk Name Role Phone AJAY APODACA Primary Care [...] PART A Nov 22, 2006 PART A [id number] TONY CASTELLON PATIENT MEDICARE (WNR) MEDICARE (M) PART B Nov 22, 2006 PART B [id number] [phone] TONY CASTELLON PATIENT MEDICARE (WNR) MEDICARE (M) PART A Nov 22, 2006 PART A [id number] TONY CASTELLON PATIENT MEDICARE (WNR) MEDICARE (M) PART B Nov 22, 2006 PART B [id number] TONY CASTELLON PATIENT FOR LIFE TFL* Apr 20, 2014 [id number] [phone] SUKHJINDER CASTELLON JR PATIENT Selected Encounter This section includes the information on record at [place] for the Encounter. Date/Time Encounter Type Encounter Description Reason Provider Source Apr 30, 2023 02:00 PM OFF/OP CONSLTJ NEW/EST HI 55 ENDOCRINOLOGY ICD-10-CM E11.8 Type 2 diabetes mellitus with unspecified complications BUTTSJUDDMIAH Jose Encounter Template Text not used by [place] Assessments - Encounter Diagnoses This section includes the primary and secondary diagnoses documented for the Encounter. Date/Time Primary/Secondary Diagnosis Diagnosis Name Provider Source Apr 30, 2023 02:00 PM PRIMARY Type 2 diabetes mellitus with unspecified complications THEBESMAIH [place] [facility] [place] [facility] Apr 30, 2023 02:00 PM SECONDARY Chronic kidney disease, unspecified BUTTSMIAH [place] [facility] [place] [facility] Apr 30, 2023 02:00 PM SECONDARY Essential (primary) hypertension BUTTSMIAH [place] [facility] [place] [facility] Apr 30, 2023 02:00 PM SECONDARY Mixed hyperlipidemia THEBESMIAH [place] [facility] [place] [facility] Apr 30, 2023 02:00 PM SECONDARY Overweight THEBESMIAH [place] [facility] [place] [facility] Apr 30, 2023 02:00 PM SECONDARY Type 2 diabetes mellitus w diabetic chronic kidney disease BUTTSMIAH [place] [facility] [place] [facility] Apr 30, 2023 02:00 PM SECONDARY Type 2 diabetes mellitus with diabetic polyneuropathy BUTTSMIAH [place] [facility] [place] [facility] Plan of Treatment: Future Appointments (+ 6 months) and Future Tests (+/- 45 days) The Plan of Treatment section includes future care activities for the patient from all [place] [facility]. This section includes future appointments and future orders which are active, pending or scheduled. Future Appointments This section includes appointments that were scheduled to occur 6 months from the date of the Encounter, up to a maximum of 20 appointments. The data comes from all [place] treatment facilities. Appointment Date/Time Appointment Type Appointme nt Facility Name May 06, 2023 02:30 PM AMBULATORY - MEDICINE [place] [facility] [place] [facility] May 07, 2023 01:30 PM AMBULATORY - MEDICINE [place] C [facility] [place] [facility] Jun 25, 2023 01:00 PM AMBULATORY - MEDICINE [place] C [place] [facility] August 13, 2023 10:00 AM AMBULATORY - MEDICINE [place] C [facility] Sep 04, 2023 11:00 AM AMBULATORY - [facility] [place] [facility] Sep 23, 2023 09:00 AM AMBULATORY - MEDICINE [place] C N[facility] Lab Results: +/- 30 days of the encounter This section includes the Chemistry and Hematology Lab Results on record with [place] for the patient. Radiology Reports and Pathology Reports are provided separately, in subsequent sections. Lab Results This section contains the Chemistry/Hematology Results that were resulted 30 days before or 30 daysafter the date of the Encounter. Date/Time Source Result Type Result - Unit Interpretation Reference Range Comment May 05, 2023 07:48 AM [facility] MICROALBUMIN CREATININE RATIO PANEL Specimen Type: URINE No comment entered. Ordering Provider: MIAH BUTTS Report Released Date/Time: Jan 05, 2023 07:44 PM Reporting Lab: [facility] [address] [facility] [address] Performing Lab: [facility] [address] [facility] [address] MICROALBUMIN/C REATININE RATIO canc mg/g 0-29.9 MICROALBUMIN,Q UANTITATIVE < 0.5 mg/dL RR UNAVAIL CREATININE URINE 37.09 mg/dL May 05, 2023 07:48 AM [facility] LIPID PANEL FASTING Specimen Type: SERUM No comment entered. Ordering Provider: MIAH BUTTS Report Released Date/Time: Jan 05, 2023 07:44 PM Reporting Lab: [facility] [address] [facility] [address] Performing Lab: [address] [address] CHOLESTEROL 86 mg/dL TRIGLYCERIDE 74 mg/dL 0-150 LDL calculated 40 mg/dL 0-129 CHOL/HDL 2.8 HDL CHOLESTEROL 31 mg/dL L 40-60 May 05, 2023 07:48 AM [facility] HEMOGLOBIN A1C PANEL Specimen Type: BLOOD [...] Jan 05, 2023 07:44 PM Reporting Lab: [address] [address] Performing Lab: [address] [address] HEMOGLOBIN A1C 7.2 H 4.0-5.6 May 05, 2023 07:48 AM [facility] BASIC METABOLIC PANEL (fasting) Specimen Type: SERUM No comment entered. Ordering Provider: MIAH BUTTS Report Released Date/Time: Jan 05, 2023 07:44 PM Reporting Lab: [address] [address] Performing Lab: [address] [address] UREA NITROGEN 17 mg/dL 7-25 GLUCOSE 148 [...] and tobacco- related health factors from the [place] facility where the Encounter took place. Current Smoking Status This section includes the most current smoking, or tobacco-related health factor, from the [place] facility where the Encounter took place. Date/Time Current Smoking Status Comment Facil ity Dec 24, 2022 10:30 AM VA-TOBACCO FORMER USER [facility] Tobacco Use History This section includes a history of the smoking, or tobacco-related health factors, that were collected on or before the date of the Encounter. The data comes from the [place] facility where the Encounter took place. Date/Time Smoking Status/Tobac co Use Comment Facility Dec 24, 2022 10:30 AM VA-TOBACCO QUIT 15 YRS OR MORE [place] [facility] [facility] Dec 24, 2021 10:00 AM VA-TOBACCO FORMER USER [place] [facility] [place] [facility] Dec 24, 2021 10:00 AM VA-TOBACCO QUIT 5 TO < 15 YRS [place] [facility] [place] [facility] Dec 14, 2020 08:30 AM VA-TOBACCO FORMER USER [place] [facility] [place] [facility] Dec 14, 2020 08:30 AM VA-TOBACCO QUIT 5 TO < 15 YRS [place] [facility] [place] [facility] Nov 15, 2019 11:00 AM VA-TOBACCO FORMER USER [place] [facility] [place] [facility] Nov 15, 2019 11:00 AM VA-TOBACCO QUIT 5 TO < 15 YRS [place] [facility] [place] [facility] Oct 20, 2017 08:19 AM VA-TOBACCO FORMER USER [place] [facility] [place] [facility] Oct 20, 2017 08:19 AM VA-TOBACCO QUIT 5 TO < 15 YRS [place] [facility] [place] [facility] Sep 04, 2017 11:09 AM QUIT TOBACCO USE > 7 YEARS AGO [place] [facility] [place] [facility] Oct 16, 2016 09:08 AM QUIT TOBACCO USE > 7 YEARS AGO [place] [facility] [place] [facility] Feb 20, 2015 10:58 AM QUIT TOBACCO USE > 7 YEARS AGO quit 2009-cigarettes and cigars for 45 years [facility] Advance Directives: All historical and current Section Date Range: From patient's date of to the date document was created. This section includes ALL of a patient's completed or amended [place] Advance and Rescinded Directives. The entries below indicate that a directive exists for the patient, but an actual copy is not included with this document. The data comes from all [facility]. Date Advance Directives Provider Source Mar 23, 2014 ADVANCE DIRECTIVE ROSALINDA SHELBY [place] [facility] [place] [facility] Encounter Notes: All associated encounter notes This section contains the clinical notes associated to the Encounter. Date/Time Encounter Note(s) Provider Source Apr 27, 2023 04:30 PM PHYSICIAN NOTE: LOCAL TITLE: MD NOTE STANDARD TITLE: PHYSICIAN NOTE DATE OF NOTE: APR 27, 2023@16:30 ENTRY DATE: APR 27, 2023@16:30:40 AUTHOR: MIAH BUTTSIGNER: URGENCY: STATUS: COMPLETED Initial consultation CC: Diabetes mellitus with chronic kidney disease, HTN, Hyperlipidemia, overweight HPI: Previously followed by CPP. DM since 1981 Diarrhea with empagliflozin, interested in decreasing dose. Wearing a Blue Badge Style josias 2 All endocrine labs were reviewed with the patient. May 05 2023 GLUCOSE 148 H mg/dL 65 - 100 BUN 17 mg/dL 7 - 25 CREATININE 1.45 H mg/dL .5 - 1.4 Sodium 140 mmol/L 135 - 145 K+/Pot 4.4 mmol/L 3.5 - 5 CL 110 mmol/L 100 - 110 CO2 21 mEq/L 20 - 30 Barriers/s supports for care: Lives alone. He cooks one meal and rest are provided at his independent living. He will be moving back to his condo shortly, and will be cooking all his meals. Medications for diabetes: aspart 07/12/10 and glargine 19 units TWICE daily. BG readings: CGM Collection DT Spec HGBA1c 05/05/2023 HGB-A1c 7.2 01/03/2023 09:54 BLOOD 7.8 H 10/01/2022 09:40 BLOOD 7.8 H 06/19/2022 07:36 BLOOD 8.1 H 04/12/2022 08:21 BLOOD 7.9 H 12/24/2021 09:37 BLOOD 7.0 H Weight trend: Mild decrase BMI 29.44 Food insecurity no Pattern of eating throughout the day three Physical activity: no likes to walk in warmer weather Carbohydrate counting: feels well informed Episodes of hypoglycemia: occ if eating less Hypoglycemia unawareness: Neuropathy pain: no pain saw podiatry yesterday, not numb except in area of surgery Last eye evaluation: 03/[address] has appt Last nephropathy screen MICROALBUMIN Jun 19, 2022@07:36 URINE mALB/Cr: 35.7 H mg/G 0 - 29.9 FindingsCREATININE-EGFR 01/03/23 09:54 1.34 10/01/22 09:40 1.46 H 06/19/22 07:36 1.28 Statin therapy:May 05 2023 07:48 CHOL 86 mg/dL <7 - 199 TRIG 74 mg/dL 0 - 150 HDL 31 L mg/dL 40 - 60 LDL 40 mg/dL 0 - 70 CAD: none known atrial fibrillation On asa: apixaban emergency kit/glucose tabs: glucagon n/a Active problems - Computerized Problem List is the source for the followin. Overweight 2. Peripheral neuropathy due to type 2 diabetes mellitus 3. Type 2 diabetes mellitus 4. Chronic kidney disease due to type 2 diabetes mellitus 5. Long-term current use of anticoagulant 6. Elevated liver enzymes level 7. Hearing loss 8. Essential hypertension 9. Atrial fibrillation 10. Peripheral vascular disease 11. T-cell lymphoma 12. Hyperlipidemia 13. Benign prostatic hyperplasia 14. Herpes zoster infection Active Outpatient Medications (including Supplies): APIXABAN 5MG TAB TAKE ONE-HALF TABLET BY MOUTH TWICE DAILY ACTIVE FOR PREVENTION OF BLOOD CLOTS CARBOXYMETHYLCELLULOSE NA 0.5% OPH SOLN INSTILL 1 DROP ACTIVE INTO EACH EYE TWICE DAILY EMPAGLIFLOZIN 25MG TAB TAKE ONE-HALF TABLET BY MOUTH ONCE ACTIVE DAILY GLUCOSE 4GM CHEW TAB CHEW THREE TO FOUR TABLETS BY MOUTH ACTIVE NEEDED FOR LOW BLOOD SUGAR BELOW 70 GLUCOSE SENSOR FREESTYLE JOSIAS 2 USE 1 SENSOR DIRECTED ACTIVE EVERY 14 DAYS INSULIN,ASPART(EQV-NOVLG)10 0UN/ML FLXPEN INJECT 16 UNITS ACTIVE SUBCUTANEOUSLY EVERY MORNING AND INJECT 9 UNITS AT NOON AND INJECT 11 UNITS EVERY EVENING BEFORE SUPPER INSULIN,GLARGINE-YFGN 100UNIT/ML PEN 3ML INJECT 19 UNITS HOLD SUBCUTANEOUSLY TWICE DAILY LIDOCAINE 5% OINT APPLY LIBERAL AMOUNT TOPICALLY TWICE ACTIVE DAILY NEEDED FOR NEUROPATHY PAIN LOSARTAN 50MG TAB TAKE ONE TABLET BY MOUTH ONCE DAILY FOR ACTIVE BLOOD PRESSURE/HEART Non-VA ASPIRIN 81MG EC TAB 81MG BY MOUTH EVERY DAY ACTIVE Non-VA ATORVASTATIN CALCIUM 20MG TAB 10MG BY MOUTH ACTIVE Non-VA CHOLECALCIF 50MCG (D3-2,000UNIT) TAB 50MCG BY MOUTH ACTIVE ONCE DAILY Non-VA FENOFIBRATE 54MG TAB 108MG BY MOUTH ONCE DAILY ACTIVE Non-VA FERROUS GLUCONATE 324MG TAB 324MG BY MOUTH ONCE ACTIVE DAILY Non-VA FINASTERIDE 5MG TAB 5MG BY MOUTH ONCE DAILY ACTIVE Non-VA FLUTICAS 500/SALMETEROL 50 INHL DISK 60 1 PUFF BY ACTIVE MOUTH ONCE DAILY Non-VA METOPROLOL SUCCINATE TAB,SA 12.5MG BY MOUTH EVERY ACTIVE taking bid DAY Non-VA TERAZOSIN HCL 5MG CAP 5MG BY MOUTH ONCE DAILY ACTIVE SHX:as above ROS: Some chronic respiratory sx, no fever. PE: affect pleasant appropriate Speaking easily in full sentences defer foot exam to podiatry yesterday Medical Decision Making: Diabetes mellitus type 2 with chronic kidney disease: decrease empagliflozoin to 5 mg daily, stop if sx do not resolve and let me know. Insulin Dose: 08/10/10 and glargine 38 units HS (skip tomorrow AM glargine and start tomorrow night) Carbohydrate targets 45 gm TID Blood sugar targets 130-150 premeal and 150-200 after Hemoglobin A1c Targets 8 overweight He feels that weight loss is moderately important as he will feel better. He thinks that he will be able to manage diet better once he moves back to [facility]. Hypertension: well controlled, sbp 120-125 at home Hyperlipidemia: well controlled Team follow up none at this time. lab: bmp hgba1c next visit Insulin orders updated in cprs F/u three mos FTF Medication Reconciliation: Outpatient: Has the patient been taking medications as documented in the EMLR? No: Discrepencies were identified. See below. Essential Medication List for Review used to complete this medication reconciliation. INCLUDED IN THIS LIST: Alphabetical list of active outpatient prescriptions dispensed from this [facility] (local) and dispensed from another [place] or DoD facility (remote) as well as inpatient orders (local, pending and active), local clinic medications, locally documented non-VA medications, and local prescriptions that have or been discontinued in the past 90 days. - Discrepancies were identified, addressed, and discussed with the patient/caregiver at this encounter. - All changes in medications, including all non-VA/Herbal/OTC medications were entered into CPRS. - If there were any medications the patient should no longer take, they were discontinued. - The patient/caregiver was instructed to update this list, discard old lists, and take this list to the next appointment, whether with a VA or non-VA provider. /jus/ MIAH BUTTS MD STAFF PHYSICIAN Signed: 05/07/2023 14:05 IMAH BUTTS [facility]
--- OUTSIDE RECORDS SUMMARY | 2024-03-26 16:25 | XMS_ITS | Encounter Summary ---
Author Name Department of [place] Affairs ([place]) Organization Department of [facility] Affairs ([place]) Address [address] [place] [address] Care Team Providers Care Learning Technologist Name Role Phone AJAY APODACA Primary Care [...] PART A Nov 22, 2006 PART A [id number] TONY CASTELLON PATIENT MEDICARE (WNR) MEDICARE (M) PART B Nov 22, 2006 PART B [id number] TONY CASTELLON PATIENT MEDICARE (WNR) MEDICARE (M) PART B Nov 22, 2006 PART B [id number] [phone] [id number] TONY CASTELLON PATIENT MEDICARE (WNR) MEDICARE (M) PART A Nov 22, 2006 PART A [id number] TONY CASTELLON PATIENT FOR LIFE TFL* Apr 20, 2014 [id number] SUKHJINDER CASTELLON JR PATIENT Selected Encounter This section includes the information on record at [place] for the Encounter. Date/Time Encounter Type Encounter Description Reason Pro vider Source May 07, 2023 02:08 PM Outpatient Encounter ENDOCRINOLOGY MIAH BUTTS [facility] Encounter Template Text not used by [place] Plan of Treatment: Future Appointments (+ 6 months) and Future Tests (+/- 45 days) The Plan of Treatment section includes future care activities for the patient [facility] [place] [facility] This section includes future appointments and future orders which are active, pending or scheduled. Future Appointments This section includes appointments that were scheduled to occur 6 months from the date of the Encounter, up to a maximum of 20 appointments. The data comes from all [place] treatment facilities. Appointment Date/Time Appointment Type Appointme nt Facility Name Jun 25, 2023 01:00 PM AMBULATORY - [place]ICINE [place] [facility] [place] [facility] August 13, 2023 10:00 AM AMBULATORY MEDICINE [place] [facility] [place] [facility] Sep 04, 2023 11:00 AM AMBULATORY MEDICINE [facility] [place] [facility] Sep 23, 2023 09:00 AM AM[facility]ULATORY MEDICINE [facility] Lab Results: +/- 30 days of the encounter This section includes the Chemistry and Hematology Lab Results on record with [place] for the patient. Radiology Reports and Pathology Reports are provided separately, in subsequent sections. Lab Results This section contains the Chemistry/Hematology Results that were resulted 30 days before or 30 daysafter the date of the Encounter. Date/Time Source Result Type Result - Unit Interpretation Reference Range Comment May 05, 2023 07:48 AM [facility] LIPID PANEL FASTING Specimen Type: SERUM No comment entered. Ordering Provider: MIAH BUTTS Report Released Date/Time: Jan 05, 2023 07:44 PM Reporting [facility] [address] [facility] [address] Performing Lab: [facility] [address] [facility] [address] CHOLESTEROL 86 mg/dL TRIGLYCERIDE 74 mg/dL 0-150 LDL calculated 40 mg/dL 0-129 CHOL/HDL 2.8 HDL CHOLESTEROL 31 mg/dL L 40-60 May 05, 2023 07:48 AM [facility] MICROALBUMIN CREATININE RATIO PANEL Specimen Type: URINE No comment entered. Ordering Provider: MIAH BUTTS Report Released Date/Time: Jan 05, 2023 07:44 PM Reporting Lab: [facility] [address] [facility] [address] Performing Lab: [facility] [address] [facility] [address] MICROALBUMIN/C REATININE RATIO canc mg/g 0-29.9 MICROALBUMIN,Q UANTITATIVE < 0.5 mg/dL RR UNAVAIL CREATININE URINE 37.09 mg/dL May 05, 2023 07:48 AM [facility] BASIC METABOLIC PANEL (fasting) Specimen Type: SERUM No comment entered. Ordering Provider: MIAH BUTTS Report Released Date/Time: Jan 05, 2023 07:44 PM Reporting Lab: [facility] [address] [facility] [address] Performing Lab: [address] [address] UREA NITROGEN 17 mg/dL 7-25 GLUCOSE 148 mg/dL H 65-100 SODIUM 140 mmol/L 135-145 POTASSIUM 4.4 mmol/L 3.5-5.0 CHLORIDE 110 mmol/L 100-110 CO2 21 meq/L 20-30 CREATININE, Serum 1.45 mg/dL H 0.50-1.40 eGFR(CKD-EPI 2020) 48 mL/min L >60 May 05, 2023 07:48 AM [facility] HEMOGLOBIN A1C PANEL Specimen Type: [...] Jan 05, 2023 07:44 PM Reporting Lab: [facility] [address] [facility] [address] Performing Lab: [address] [address] HEMOGLOBIN A1C 7.2 H 4.0-5.6 Vital Signs: All taken on the encounter date This section contains inpatient and outpatient Vital Signs collected on the date of the Encounter. Date/Time Temperature Pulse Blood Pressure Respiratory Rate SP02 Pain Height Weight Body Mass Index Source May 07, 2023 01:27 PM 98.1 88 118/50 16 95 0 66 182 29 [facility] [place] [place] [facility] Social History: Smoking Status (Most current) and Tobacco Use (All prior to encounter date) This section includes the most current, and the historical, smoking and tobacco- related health factors from the [place] facility where the Encounter took place. Current Smoking Status This section includes the most current smoking, or tobacco-related health factor, from the [place] facility where the Encounter took place. Date/Time Current Smoking Status Comment [facility] Dec 24, 2022 10:30 AM VA-TOBACCO QUIT 15 YRS OR MORE [place] [facility] [place] [facility] Tobacco Use History This section includes a history of the smoking, or tobacco-related health factors, that were collected on or before the date of the Encounter. The data comes from the [place] facility where the Encounter took place. Date/Time Smoking Status/Tobac co Use Comment Facility Dec 24, 2022 10:30 AM VA-TOBACCO QUIT 15 YRS OR MORE [facility] [place] [facility] Dec 24, 2021 10:00 AM VA-TOBACCO FORMER USER [facility] [place] [facility] Dec 24, 2021 10:00 AM VA-TOBACCO QUIT 5 TO < 15 YRS [facility] [place] [facility] Dec 14, 2020 08:30 AM VA-TOBACCO FORMER USER [facility] [place] [facility] Dec 14, 2020 08:30 AM VA-TOBACCO QUIT 5 TO < 15 YRS [facility] [place] [facility] Nov 15, 2019 11:00 AM VA-TOBACCO FORMER USER [facility] [place] [facility] Nov 15, 2019 11:00 AM VA-TOBACCO QUIT 5 TO < 15 YRS [facility] [place] [facility] Oct 20, 2017 08:19 AM VA-TOBACCO FORMER USER [facility] [place] [facility] Oct 20, 2017 08:19 AM VA-TOBACCO QUIT 5 TO < 15 YRS [facility] [place] [facility] Sep 04, 2017 11:09 AM QUIT TOBACCO USE > 7 YEARS AGO [facility] Oct 16, 2016 09:08 AM QUIT TOBACCO USE > 7 YEARS AGO [facility] Feb 20, 2015 10:58 AM QUIT TOBACCO USE > 7 YEARS AGO quit 2009-cigarettes and cigars for 45 years [facility] Advance Directives: All historical and current Section Date Range: From patient's date of to the date document was created. This section includes ALL of a patient's completed or amended [place] Advance and Rescinded Directives. The entries below indicate that a directive exists for the patient, but an actual copy is not included with this document. The data comes from all [place] facilities. Date Advance Directives Provider Source Mar 23, 2014 ADVANCE DIRECTIVE ROSALINDA SHELBY [facility]
--- OUTSIDE RECORDS SUMMARY | 2024-03-26 16:25 | XMS_ITS | Encounter Summary ---
Author Name Department of Vetera Affairs ([place]) Organization Department of [place] Address [address] [place] [id number] Care Team Providers Care Furnace Fitter Name Role Phone AJAY RUSSELL Primary Care Provider Unavaila ble Insurance Providers: [...] PART A Nov 22, 2006 PART A [id number] TONY CASTELLON PATIENT MEDICARE (WNR) MEDICARE (M) PART B Nov 22, 2006 PART B [id number] [phone] TONY CASTELLON PATIENT MEDICARE (WNR) MEDICARE (M) PART B Nov 22, 2006 PART B [id number] TONY CASTELLON PATIENT MEDICARE (WNR) MEDICARE (M) PART A Nov 22, 2006 PART A [id number] TONY CASTELLON PATIENT FOR LIFE TFL* Apr 20, 2014 [id number] SUKHJINDER CASTELLON JR PATIENT Selected Encounter This section includes the information on record at [place] for the Encounter. Date/Time Encounter Type Encounter Description Reason Provider Source Jun 25, 2023 01:00 PM OFFICE O/P EST MOD 30 MIN PRIMARY CARE/MEDICINE ICD-10-CM Z95.0 Presence of cardiac pacemaker GEORGINA ARITA Jose Encounter Template Text not used by [place] Assessments - Encounter Diagnoses This section includes the primary and secondary diagnoses documented for the Encounter. Date/Time Primary/Secondary Diagnosis Diagnosis Name Provider Source Jun 25, 2023 01:32 PM PRIMARY Presence of cardiac pacemaker JEET ARITAE Stephie JAWED [facility] [place] [facility] Jun 25, 2023 01:32 PM SECONDARY Benign neoplasm of prostate JEET ARITAE D JAWED [facility] [place] [facility] Jun 25, 2023 01:32 PM SECONDARY Chronic kidney disease, unspecified JEET ARITAE D JAWED [facility] [place] [facility] Jun 25, 2023 01:32 PM SECONDARY Chronic obstructive pulmonary disease, unspecified JEET ARITAE D JAWED [facility] [place] [facility] Jun 25, 2023 01:32 PM SECONDARY Essential (primary) hypertension JEET ARITAE D JAWED [facility] [place] [facility] Jun 25, 2023 01:32 PM SECONDARY Paroxysmal atrial fibrillation JEET ARITAE D JAWED [facility] [place] [facility] Jun 25, 2023 01:32 PM SECONDARY Type 2 diabetes mellitus w diabetic chronic kidney disease JEET ARITAE D JAWED [facility] [place] [facility] Jun 25, 2023 01:32 PM SECONDARY Type 2 diabetes mellitus with diabetic polyneuropathy AUTUMNMEDJEETE D JAWED [facility] [place] [facility] Jun 25, 2023 01:32 PM SECONDARY Type 2 diabetes mellitus with unspecified complications AUTUMNMEDJEETE D JAWED [facility] [place] [facility] Jun 25, 2023 01:32 PM SECONDARY Unspecified atrial fibrillation AUTUMNMEDCASSIDYAMME D JAWED [facility] [place] [facility] Plan of Treatment: Future Appointments (+ 6 months) and Future Tests (+/- 45 days) The Plan of Treatment section includes future care activities for the patient from all [facility] treatmentfacilities. This section includes future appointments and future orders which are active, pending or scheduled. Future Appointments This section includes appointments that were scheduled to occur 6 months from the date of the Encounter, up to a maximum of 20 appointments. The data comes from all [place] treatment facilities. Appointment Date/Time Appointment Type Appointme nt Facility Name August 13, 2023 10:00 AM [facility] [place] [facility] Sep 04, 2023 11:00 AM AMBULATORY - [place]ICINE [place] [facility] Sep 23, 2023 09:00 AM AMBULATORY - MEDICINE [place] [place] [facility] Nov 13, 2023 09:30 AM AMBULATORY - MEDICINE [facility] Vital Signs: All taken on the encounter date This section contains inpatient and outpatient Vital Signs collected on the date of the Encounter. Date/Time Temperature Pulse Blood Pressure Respiratory Rate SP02 Pain Height Weight Body Mass Index Source Jun 25, 2023 01:02 PM 98.2 69 116/59 18 95 0 66 178 29 [facility] Social History: Smoking Status (Most current) and Tobacco Use (All prior to encounter date) This section includes the most current, and the historical, smoking and tobacco- related health factors from the [place] facility where the Encounter took place. Current Smoking Status This section includes the most current smoking, or tobacco-related health factor, from the [place] facility where the Encounter took place. Date/Time Current Smoking Status Comment [facility] Dec 24, 2022 10:30 AM VA-TOBACCO QUIT 15 YRS OR MORE [facility] Tobacco Use History This section includes a history of the smoking, or tobacco-related health factors, that were collected on or before the date of the Encounter. The data comes from the [place] facility where the Encounter took place. Date/Time Smoking Status/Tobac co Use Comment Facility Dec 24, 2022 10:30 AM VA-TOBACCO QUIT 15 YRS OR MORE [facility] Dec 24, 2021 10:00 AM VA-TOBACCO FORMER USER [facility] Dec 24, 2021 10:00 AM VA-TOBACCO QUIT 5 TO < 15 YRS [facility] Dec 14, 2020 08:30 AM VA-TOBACCO FORMER USER [place] [facility] [place] [facility] Dec 14, 2020 08:30 AM VA-TOBACCO QUIT 5 TO < 15 YRS [facility] [place] [facility] Nov 15, 2019 11:00 AM VA-TOBACCO FORMER USER [place] [facility] [facility] Nov 15, 2019 11:00 AM VA-TOBACCO QUIT 5 TO < 15 YRS [place] [facility] [place] [facility] Oct 20, 2017 08:19 AM VA-TOBACCO FORMER USER [place] [facility] [place] [facility] Oct 20, 2017 08:19 AM VA-TOBACCO QUIT 5 TO < 15 YRS [place] [facility] [place] [facility] Sep 04, 2017 11:09 AM QUIT TOBACCO USE > 7 YEARS AGO [place] [facility] [place] [facility] Oct 16, 2016 09:08 AM QUIT TOBACCO USE > 7 YEARS AGO [place] [facility] Feb 20, 2015 10:58 AM QUIT TOBACCO USE > 7 YEARS AGO quit 2009-cigarettes and cigars for 45 years [facility] Advance Directives: All historical and current Section Date Range: From patient's date of to the date document was created. This section includes ALL of a patient's completed or amended [place] Advance and Rescinded Directives. The entries below indicate that a directive exists for the patient, but an actual copy is not included with this document. The data comes from all [place] facilities. Date Advance Directives Provider Source Mar 23, 2014 ADVANCE DIRECTIVE ROSALINDA SHELBY [facility] Encounter Notes: All associated encounter notes This section contains the clinical notes associated to the Encounter. Date/Time Encounter Note(s) Provider Source Aug 26, 2023 11:47 AM PRIMARY CARE NURSE PRACTITIONER OUTPATIENT NOTE: LOCAL TITLE: NURSE PRACTITIONER OUTPATIENT NOTE STANDARD TITLE: PRIMARY CARE NURSE PRACTITIONER OUTPATIENT NOTE DATE OF NOTE: AUG 26, 2023@11:47 ENTRY DATE: AUG 26, 2023@11:47:44 AUTHOR: AJAY RUSSELL COSIGNER: URGENCY: STATUS: COMPLETED [address] [address] [facility] Toll Free Number Primary Care Telephone Assistance can be reached at extension [phone] [facility] scheduling can be reached at extension [phone] [facility] scheduling can be reached at ext [phone] AUG 26, 2023 TONY CASTELLON JR [address] [facility] [address] [place], [place], [address] Thank you for coming in for your tests. Your recent test results are as follows: LAB CHEMISTRY & HEMATOLOGY Collection DT Specimen Test Name Result Units Ref Range 08/17/2023 05:30 FECES FIT1/1 Negative Ref: NEG I have reviewed your results. Stable findings. We will recheck this in one year. Thank you for allowing me to be a part of your health care team. Please call if you have any questions or concerns. Sincerely, Ajay Russell DNP, OCTAVIO, ANUSHKA Nurse Practitioner Primary Care PACT Seven /jus/ OCTAVIO Monroe DNP, ANUSHKA Primary Care Nurse Practitioner Signed: 08/26/2023 11:48 Receipt Acknowledged By: 08/26/2023 12:57 /es/ NARA MARTIN ADVANCED ELECTRIC DEICER INSPECTOR AJAY RUSSELL [facility] CNT [facility] Jun 25, 2023 01:07 PM PHYSICIAN NOTE: LOCAL TITLE: MD NOTE STANDARD TITLE: PHYSICIAN NOTE DATE OF NOTE: JUN 25, 2023@13:07 ENTRY DATE: JUN 25, 2023@13:07:14 AUTHOR: GEORGINA ARITA EXP COSIGNER: URGENCY: STATUS: COMPLETED Patient Name: TONY CASTELLON JR VITALS: Patient temperature: 98.2 F [36.8 C] (06/25/2023 13:02) Blood pressure: 116/59 (06/25/2023 13:02) Patient height: 66 in [167.6 cm] (06/25/2023 13:02) Patient weight: 178 lb [80.74 kg] (06/25/2023 13:02) Patient BMI: BMI: 28.8 Patient pulse: 69 (06/25/2023 13:02) Patient respiration: 18 (06/25/2023 13:02) Patient Pulse Oximetry: 95% (06/25/2023 13:02) Pain Ratin (06/25/2023 13:02) Active [facility] Medications: Active Outpatient Medications (including Supplies): Active Outpatient Medications Status 1) APIXABAN 5MG TAB TAKE ONE-HALF TABLET BY MOUTH TWICE ACTIVE DAILY FOR PREVENTION OF BLOOD CLOTS 2) CARBOXYMETHYLCELLULOSE NA 0.5% OPH SOLN INSTILL 1 ACTIVE DROP INTO EACH EYE TWICE DAILY 3) EMPAGLIFLOZIN 10MG TAB TAKE ONE-HALF TABLET BY MOUTH ACTIVE ONCE DAILY 4) GLUCOSE 4GM CHEW TAB CHEW THREE TO FOUR TABLETS BY ACTIVE MOUTH NEEDED FOR LOW BLOOD SUGAR BELOW 70 5) GLUCOSE SENSOR FREESTYLE LINK 2 USE 1 SENSOR ACTIVE DIRECTED EVERY 14 DAYS 6) INSULIN,ASPART(EQV-NOVLG)100UN/ ML FLXPEN INJECT 18 ACTIVE UNITS SUBCUTANEOUSLY EVERY MORNING AND INJECT 7 UNITS AT NOON AND INJECT 11 UNITS EVERY EVENING BEFORE SUPPER 7) INSULIN,GLARGINE-YFGN 100UNIT/ML PEN 3ML INJECT 38 ACTIVE UNITS SUBCUTANEOUSLY AT BEDTIME 8) LIDOCAINE 5% OINT APPLY LIBERAL AMOUNT [...] METOPROLOL SUCCINATE TAB,SA 12.5MG BY MOUTH ACTIVE TWICE DAILY 9) Non-VA TERAZOSIN HCL 5MG CAP 5MG BY MOUTH ONCE DAILY ACTIVE 18 Total Medications HPI: Patient came today for 6-month follow-up appointment he is also being followed by endocrine for his type 2 diabetes. 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 CVS-Denies any chest pain or discomfort. Respiratory-denies any sob- no changes in his baseline respiratory status. GI-no Gi complains-like nausea and vomiting, abdominal pain or acid reflux, blood in stool, diarrhea. -denies any frequency, urgency, dysuria On examination: patient is alert and oriented X3 vitals are stable, He is in no apparent distress. CVS: regular rate and rhythm has ENRIQUE Lungs: clear to auscultation ABD: Benign EXT: no edema. Reviewed lab work from April 2023 Patient has lab work 06/09/2023 his creatinine was 1.5 EGFR 46 calcium 8.7 electrolytes within normal range blood sugar was 112 BUN 43 Is lipid profile 06/01/2023 cholesterol 92 triglyceride 101 HDL 35 LDL 37 non-HDL cholesterol 57 Assessment/plan: 1. Service-connected hearing loss using hearing aid Type 2 diabetes his Jardiance was discontinued Essential hypertension his losartan was discontinued patient is also not taking Jardiance Hyperlipidemia patient has been taking a combination of fenofibrate and atorvastatin his lipids have been under good control Peripheral vascular disease most of the time patient does not have pain only once in a while he get like a charley horse. Chronic kidney disease his creatinine has been stable Paroxysmal atrial fibrillation he was admitted in the hospital for rapid ventricular response and converted to sinus rhythm with amiodarone BPH patient has been taking prostate medication and his symptoms have been under good control T-cell lymphoma see onc at [place] and [facility] twice a yr he is in remission. 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 No updates are needed at this time. The patient received education about Advance Directives and written notification of his/her rights. Homelessness/Food Insecurity Screen: In the past 2 months, have you been living in stable housing that you own, rent, or stay in as part of a household? Yes - Living in stable housing. Are you worried or concerned that in the next 2 months you may NOT have stable housing that you own, rent, or stay in as part of a household? No - Not worried about housing near future The reports the following: Within the past 12 months, you worried whether your food would run out before you got money to buy more. Never true Within the past 12 months, the food you bought just didn't last and you didn't have money to get more. Never true Falls & Incontinence Screen: Falls Screen: 4. No falls within the past year. Incontinence Screen No incontinence. /jus/ Crow Jules, Health Fruit Washer SIDER,PRIMARY CARE Signed: 06/25/2023 13:06 CROW JULES [facility]
--- OUTSIDE RECORDS SUMMARY | 2024-03-26 16:26 | XMS_ITS | Encounter Summary ---
Author Name [facility] [facility] Address [address] [place] [address] Care Team Providers Care Health Care / Medical Job Titles Name Role Phone AJAY APODACA Primary Care [...] PART A Nov 22, 2006 PART A [id number] [phone] TONY CASTELLON PATIENT MEDICARE (WNR) MEDICARE (M) PART B Nov 22, 2006 PART B [id number] [phone] TONY CASTELLON PATIENT MEDICARE (WNR) MEDICARE (M) PART B Nov 22, 2006 PART B [id number] TONY CASTELLON PATIENT MEDICARE (WNR) MEDICARE (M) PART A Nov 22, 2006 PART A [id number] TONY CASTELLON PATIENT FOR LIFE TFL* Apr 20, 2014 [id number] SUKHJINDER CASTELLON JR PATIENT Selected Encounter This section includes the information on record at [place] for the Encounter. Date/Time Encounter Type Encounter Description Reason Pro vider Source Apr 09, 2023 12:00 AM Outpatient Encounter EVENT (HISTORICAL) IHE Encounter Template Text not used by [place] Plan of Treatment: Future Appointments (+ 6 months) and Future Tests (+/- 45 days) The Plan of Treatment section includes future care activities for the [facility] [place] [facility] This section includes future appointments and future orders which are active, pending or scheduled. Future Appointments This section includes appointments that were scheduled to occur 6 months from the date of the Encounter, up to a maximum of 20 appointments. The data comes from all [place] treatment facilities. Appointment Date/Time Appointment Type Appointme nt Facility Name May 06, 2023 02:30 PM AMBULATORY [place] MEDICINE [place] [facility] [place] [facility] May 07, 2023 01:30 PM AMBULATORY MEDICINE [place] [facility] [place] [facility] Jun 25, 2023 01:00 PM AMBULATORY - MEDICINE [place] [facility] [place] [facility] August 13, 2023 10:00 AM AMBULATORY MEDICINE [place] [facility] [place] [facility] Sep 04, 2023 11:00 AM AMBULATORY - MEDICINE [place] [facility] [place] [facility] Sep 23, 2023 09:00 AM [facility]INE [facility] Lab Results: +/- 30 days of the encounter This section includes the Chemistry and Hematology Lab Results on record with [place] for the patient. Radiology Reports and Pathology Reports are provided separately, in subsequent sections. Lab Results This section contains the Chemistry/Hematology Results that were resulted 30 days before or 30 daysafter the date of the Encounter. Date/Time Source Result Type Result - Unit Interpretation Reference Range Comment May 05, 2023 07:48 AM [facility] LIPID PANEL FASTING Specimen Type: SERUM No comment entered. Ordering Provider: MIAH BUTTS Report Released Date/Time: Jan 05, 2023 07:44 PM Reporting Lab: [facility] [address] [facility] [address] Performing Lab: [facility] [address] [facility] [address] CHOLESTEROL 86 mg/dL TRIGLYCERIDE 74 mg/dL 0-150 LDL calculated 40 mg/dL 0-129 CHOL/HDL 2.8 HDL CHOLESTEROL 31 mg/dL L 40-60 May 05, 2023 07:48 AM [facility] MICROALBUMIN CREATININE RATIO PANEL Specimen Type: URINE No comment entered. Ordering Provider: MIAH BUTTS Report Released Date/Time: Jan 05, 2023 07:44 PM Reporting Lab: [facility] [address] [facility] [address] Performing Lab: [address] [address] MICROALBUMIN/C REATININE RATIO canc mg/g 0-29.9 MICROALBUMIN,Q UANTITATIVE < 0.5 mg/dL RR UNAVAIL CREATININE URINE 37.09 mg/dL May 05, 2023 07:48 AM [facility] HEMOGLOBIN A1C PANEL Specimen Type: BLOOD [...] Jan 05, 2023 07:44 PM Reporting Lab: [facility] [address] [facility] [address] Performing Lab: [address] [address] HEMOGLOBIN A1C 7.2 H 4.0-5.6 May 05, 2023 07:48 AM [facility] BASIC METABOLIC PANEL (fasting) Specimen Type: SERUM No comment entered. Ordering Provider: MIAH BUTTS Report Released Date/Time: Jan 05, 2023 07:44 PM Reporting Lab: [facility] [address] [facility] [address] Performing Lab: [address] [address] UREA NITROGEN 17 mg/dL 7-25 GLUCOSE 148 [...] and tobacco- related health factors from the [place] facility where the Encounter took place. Current Smoking Status This section includes the most current smoking, or tobacco-related health factor, from the [place] facility where the Encounter took place. Date/Time Current Smoking Status Comment Facil it Dec 24, 2022 10:30 AM VA-TOBACCO FORMER USER [place] [facility] [place] [facility] Tobacco Use History This section includes a history of the smoking, or tobacco-related health factors, that were collected on or before the date of the Encounter. The data comes from the [place] facility where the Encounter took place. Date/Time Smoking Status/Tobac co Use Comment Facility Dec 24, 2022 10:30 AM VA-TOBACCO QUIT 15 YRS OR MORE [facility] [place] [facility] Dec 24, 2021 10:00 AM VA-TOBACCO FORMER USER [place] [facility] [place] [facility] Dec 24, 2021 10:00 AM VA-TOBACCO QUIT 5 TO < 15 YRS [facility] [place] [facility] Dec 14, 2020 08:30 AM VA-TOBACCO FORMER USER [facility] [place] [facility] Dec 14, 2020 08:30 AM VA-TOBACCO QUIT 5 TO < 15 YRS [facility] [place] [facility] Nov 15, 2019 11:00 AM VA-TOBACCO FORMER USER [facility] [place] [facility] Nov 15, 2019 11:00 AM VA-TOBACCO QUIT 5 TO < 15 YRS [facility] [place] [facility] Oct 20, 2017 08:19 AM VA-TOBACCO FORMER USER [facility] [place] [facility] Oct 20, 2017 08:19 AM VA-TOBACCO QUIT 5 TO < 15 YRS [facility] [place] [facility] Sep 04, 2017 11:09 AM QUIT TOBACCO USE > 7 YEARS AGO [facility] [place] [facility] Oct 16, 2016 09:08 AM QUIT TOBACCO USE > 7 YEARS AGO [facility] Feb 20, 2015 10:58 AM QUIT TOBACCO USE > 7 YEARS AGO quit 2009-cigarettes and cigars for 45 years [facility] Advance Directives: All historical and current Section Date Range: From patient's date of to the date document was created. This section includes ALL of a patient's completed or amended [place] Advance and Rescinded Directives. The entries below indicate that a directive exists for the patient, but an actual copy is not included with this document. The data comes from all [place] facilities. Date Advance Directives Provider Source Mar 23, 2014 ADVANCE DIRECTIVE ROSALINDA SHELBY [facility]
--- OUTSIDE RECORDS SUMMARY | 2024-03-26 16:26 | XMS_ITS | Encounter Summary ---
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 Date/Time Encounter Type Encounter Description Reason Provider Source August 07, 2023 01:53 PM QNHP OL DIG ASSMT&MGMT 5-10 CLINICAL PHARMACY ICD-10-CM Z04.89 Encounter for examination and observation for oth reasons DAMIAN SERRANO Jose Encounter Template Text not used by [place] Assessments - Encounter Diagnoses This section includes the primary and secondary diagnoses documented for the Encounter. Date/Time Primary/Secondary Diagnosis Diagnosis Name Provider Source August 07, 2023 01:57 PM PRIMARY Encounter for examination and observation for oth reasons DAMIAN [facility] Plan of Treatment: Future Appointments (+ 6 months) and Future Tests (+/- 45 days) The Plan of Treatment section includes future care activities for the patient from all [place] [facility] This section includes future appointments and future orders which are active, pending or scheduled. Future Appointments This section includes appointments that were scheduled to occur 6 months from the date of the Encounter, up to a maximum of 20 appointments. The data comes from all [place] treatment facilities. Appointment Date/Time Appointment Type Appointme nt Facility Name August 13, 2023 10:00 AM AMBULATORY - MEDICINE [place] [facility] [place] [facility] Sep 04, 2023 11:00 AM AMBULATORY - MEDICINE [place] [facility] [place] [facility] Sep 23, 2023 09:00 AM AMBULATORY - MEDICINE [place] [facility] [place] [facility] Nov 13, 2023 09:30 AM AMBULATORY - MEDICINE [place] [facility] [place] [facility] Dec 31, 2023 02:00 PM AMBULATORY - MEDICINE [place] [facility] [place] [facility] Jan 06, 2024 09:30 AM AMBULATORY - MEDICINE [place] [facility] [place] [facility] Jan 13, 2024 03:00 PM AMBULATORY - MEDICINE ND [facility] [place] [facility] Jan 19, 2024 08:30 AM AMBULATORY - REHAB MEDICIN E [place] [facility] [place] [facility] Lab Results: +/- 30 days of the encounter This section includes the Chemistry and Hematology Lab Results on record with [place] for the patient. Radiology Reports and Pathology Reports are provided separately, in subsequent sections. Lab Results This section contains the Chemistry/Hematology Results that were resulted 30 days before or 30 daysafter the date of the Encounter. Date/Time Source Result Type Result - Unit Interpretation Reference Range Comment August 17, 2023 05:30 AM [place] [facility] [place] [facility] OCCULT BLOOD FIT X1 SCREEN(IN-HOUSE) Specimen Type: FECES No comment entered. Ordering Provider: MOE MARKS Report Released Date/Time: August 14, 2023 03:34 PM Reporting [facility] [place] [facility] [address] [facility] [address] Performing Lab: [place] [facility] [place] [facility] [address] [facility] [address] OCCULT BLOOD (FIT)#1 OF 1 Negative NEG August 15, 2023 08:59 AM [facility] [place] [facility] FOLATE (WROX) Specimen Type: SERUM No comment entered. Ordering Provider: MOE MARKS Report Released Date/Time: August 14, 2023 03:34 PM Reporting Lab[facility] [place] [facility] [address] [facility] [address] Performing Lab: [facility] [place] [facility] [address] [facility] [address] FOLATE (WROX) 13.92 ng/mL >5.2 August 15, 2023 08:59 AM [facility] FERRITIN Specimen Type: SERUM No comment entered. Ordering Provider: MOE MARKS Report Released Date/Time: August 14, 2023 03:34 PM Reporting Lab: [facility] [place] [facility] [address] [facility] [address] Performing Lab: [place] [facility] [place] [facility] [address] [facility] [address] FERRITIN 108 ng/mL 20-300 August 15, 2023 08:59 AM [facility] VITAMIN B12 Specimen Type: SERUM No comment entered. Ordering Provider: MOE MARKS Report Released Date/Time: August 14, 2023 03:34 PM Reporting Lab: [place] [facility] [place] [facility] [address] [facility] [address] Performing Lab: [place] [facility] [address] [address] VITAMIN B12 284 pg/mL 200-900 August 15, 2023 08:59 AM [facility] IRON & TIBC PANEL Specimen Type: SERUM No comment entered. Ordering Provider: MOE MARKS Report Released Date/Time: August 14, 2023 03:34 PM Reporting Lab: [address] [address] Performing Lab: [address] [address] TIBC 380 ug/dL 204-475 IRON 71 ug/dL 40-160 Transferrin Saturation 18.7 L 20.0-50.0 August 15, 2023 08:59 AM [facility] CBC AND DIFF (AUTO) Specimen Type: BLOOD No comment entered. Ordering Provider: MOE MARKS Report Released Date/Time: August 14, 2023 03:34 PM Reporting Lab: [address] [address] Performing Lab: [address] [address] WBC 5.70 10*3/uL 4.50-11.00 RBC 3.35 10*6/uL L 4.23-5.66 HGB 10.3 g/dL L 12.8-17 HCT 32.9 L 39.2-50.4 MCV 98.2 fL 82-99 MCHC 31.3 g/dL 30.8-35.1 PLT 303 10*3/uL 140-360 RDW-CV 14.2 12.0-16.0 Erath, Abs 0.63 10*3/uL 0.30-1.10 MCH 30.7 pg 26.2-32.6 Neut % 73.0 43.7-75.8 Lymph % 14.2 14.0-42.3 Erath % 11.1 5.1-13.7 Eos % 0.4 0.4-6.8 Baso % 0.4 0.1-2.0 Neut, Abs 4.17 10*3/uL 2.20-7.60 Lymph, Abs 0.81 10*3/uL L 1.00-3.20 Eos, Abs 0.02 10*3/uL L 0.03-0.44 Baso, Abs 0.02 10*3/uL 0.01-0.13 Immature Gran % 0.9 H 0.0-0.7 Immature Gran, Abs 0.05 10*3/uL 0.00-0.06 August 06, 2023 07:31 AM [facility] LIVER FUNCTION Specimen Type: SERUM No comment entered. Ordering Provider: GEORGINA ARITA Report Released Date/Time: Jun 06, 2023 11:30 AM Reporting Lab: [address] [address] Performing Lab: [address] [address] PROTEIN,TOTAL 6.4 g/dL 6.0-8.3 ALBUMIN 3.0 g/dL L 3.5-5.0 ALKALINE PHOSPHATASE 61 U/L 40-150 AST 22 U/L 5-34 ALT 24 U/L BILIRUBIN, TOTAL 0.7 mg/dL 0.2-1.2 August 06, 2023 07:31 AM [facility] CBC AND DIFF (AUTO) Specimen Type: BLOOD No comment entered. Ordering Provider: GEORGINA ARITA Report Released Date/Time: Jun 06, 2023 11:30 AM Reporting Lab: [address] [address] Performing Lab: [address] [address] WBC 7.50 10*3/uL 4.50-11.00 RBC 3.17 10*6/uL L 4.23-5.66 HGB 9.8 g/dL L 12.8-17 HCT 31.1 L 39.2-50.4 MCV 98.1 fL 82-99 MCHC 31.5 g/dL 30.8-35.1 PLT 181 10*3/uL 140-360 RDW-CV 14.2 12.0-16.0 Erath, Abs 0.70 10*3/uL 0.30-1.10 MCH 30.9 pg 26.2-32.6 Neut % 79.2 H 43.7-75.8 Lymph % 10.1 L 14.0-42.3 Erath % 9.3 5.1-13.7 Eos % 0.3 L 0.4-6.8 Baso % 0.4 0.1-2.0 Neut, Abs 5.94 10*3/uL 2.20-7.60 Lymph, Abs 0.76 10*3/uL L 1.00-3.20 Eos, Abs 0.02 10*3/uL L 0.03-0.44 Baso, Abs 0.03 10*3/uL 0.01-0.13 Immature Gran % 0.7 0.0-0.7 Immature Gran, Abs 0.05 10*3/uL 0.00-0.06 August 06, 2023 07:31 AM [facility] HEMOGLOBIN A1C PANEL Specimen Type: BLOOD Comment: Values obtained from A1C measurements can vary. For atypical A1C assays, a reported value of 7.0 could actually be between 6.72 and 7.28 if measured by a reference method. A reported value of 9.0 could actually be between 8.73 and 9.27. Ref: http://www.ngs p.org/CAPdata. asp Ordering Provider: MIAH BUTTS Report Released Date/Time: May 07, 2023 02:07 PM Reporting Lab: [address] [address] Performing Lab: [address] [address] HEMOGLOBIN A1C 7.7 H 4.0-5.6 August 06, 2023 07:31 AM [facility] BASIC METABOLIC PANEL (non-fasting) Specimen Type: SERUM No comment entered. Ordering Provider: MIAH BUTTS Report Released Date/Time: May 07, 2023 02:07 PM Reporting Lab: [address] [address] Performing Lab: [address] [address] UREA NITROGEN 31 mg/dL H 7-25 GLUCOSE 230 mg/dL H 65-100 SODIUM 136 mmol/L 135-145 POTASSIUM 4.2 mmol/L 3.5-5.0 CHLORIDE 103 mmol/L 100-110 CO2 21 meq/L 20-30 CREATININE, Serum 1.67 mg/dL H 0.50-1.40 eGFR(CKD-EPI 2020) 41 mL/min L >60 Social History: Smoking Status (Most current) and Tobacco Use (All prior to encounter date) This section includes the most current, and the historical, smoking and tobacco- related health factors from the [place] facility where the Encounter took place. Current Smoking Status This section includes the most current smoking, or tobacco-related health factor, from the [place] facility where the Encounter took place. Date/Time Current Smoking Status Comment [facility] Dec 24, 2022 10:30 AM VA-TOBACCO FORMER USER [place] [facility] [place] [facility] Tobacco Use History This section includes a history of the smoking, or tobacco-related health factors, that were collected on or before the date of the Encounter. The data comes from the [place] facility where the Encounter took place. Date/Time Smoking Status/Tobac co Use Comment Facility Dec 24, 2022 10:30 AM VA-TOBACCO QUIT 15 YRS OR MORE [facility] [place] [facility] Dec 24, 2021 10:00 AM VA-TOBACCO FORMER USER [facility] [place] [facility] Dec 24, 2021 10:00 AM VA-TOBACCO QUIT 5 TO < 15 YRS [facility] [place] [facility] Dec 14, 2020 08:30 AM VA-TOBACCO FORMER USER [facility] [place] [facility] Dec 14, 2020 08:30 AM VA-TOBACCO QUIT 5 TO < 15 YRS [facility] [place] [facility] Nov 15, 2019 11:00 AM VA-TOBACCO FORMER USER [facility] [place] [facility] Nov 15, 2019 11:00 AM VA-TOBACCO QUIT 5 TO < 15 YRS [facility] [place] [facility] Oct 20, 2017 08:19 AM VA-TOBACCO FORMER USER [facility] [place] [facility] Oct 20, 2017 08:19 AM VA-TOBACCO QUIT 5 TO < 15 YRS [facility] [place] [facility] Sep 04, 2017 11:09 AM QUIT TOBACCO USE > 7 YEARS AGO [facility] Oct 16, 2016 09:08 AM QUIT TOBACCO USE > 7 YEARS AGO [facility] Feb 20, 2015 10:58 AM QUIT TOBACCO USE > 7 YEARS AGO quit 2009-cigarettes and cigars for 45 years [facility] Advance Directives: All historical and current Section Date Range: From patient's date of to the date document was created. This section includes ALL of a patient's completed or amended [place] Advance and Rescinded Directives. The entries below indicate that a directive exists for the patient, but an actual copy is not included with this document. The data comes from all [place] facilities. Date Advance Directives Provider Source Mar 23, 2014 ADVANCE DIRECTIVE ROSALINDA SHELBY [facility] Encounter Notes: All associated encounter notes This section contains the clinical notes associated to the Encounter. Date/Time Encounter Note(s) Provider Source August 14, 2023 03:22 PM ADDENDUM: LOCAL TITLE: Addendum STANDARD TITLE: ADDENDUM DATE OF NOTE: AUGUST 14, 2023@15:22:04 ENTRY DATE: AUGUST 14, 2023@15:22:07 AUTHOR: JOSH MARKS COSIGNER: URGENCY: STATUS: COMPLETED Called Vet LM to call back. Please contact Vet to return for repeat CBC and iron studies due to what appears to be significant drop in Hgb and HCT. Please also mail FIT test. Last labs I see in [facility] prior to ones drawn here are from [facility] 04/09/23 RBC 4.04L Hgb 13.0L HCT 38.4L MCV 85.1 RDW 14.3 Please fax most recent CBC results to Oncology at [facility]: Dr. George Vaca /jus/ JOSH MARKS NP NURSE PRACTITIONER Signed: 08/14/2023 15:37 Receipt Acknowledged By: 08/14/2023 16:20 /jus/ Jonah LUX RN CNL Primary Care RN --- Original Document --- 08/07/23 PHARMACY ANTICOAGULATION NOTE: ANTICOAGULATION DOAC MONITORING NOTE SUBJECTIVE: Patient identified through the DOAC population Management Tool based on the following criteria: [ ] Dosing Issue [ ] Critical Drug Interaction [ ] Cancer Treatment [ ] Active NSAID [ ] Labs Overdue [ ] Prosthetic Valve Replacement [ X ] Notable Lab Value [ ] Overdue for Refill [ ] Other: Comments: Pt flagged by DOAC dashboard for Hgb drop greater than 2 while on apixaban therapy. OBJECTIVE: Indication for anticoagulation: [ X ] Atrial fibrilation [ X ] Atrial flutter [ ] VTE (DVT or PE) [ ] Post-op DVT prophylaxis [ ] Other: Most recent lab values include the following: HGB: HGB Collection DT Specimen Test Name Result Units Ref Range 08/06/2023 07:31 BLOOD HGB 9.8 L g/dL 12.8 - 17 PLT: WBC Collection DT Specimen Test Name Result Units Ref Range 08/06/2023 07:31 BLOOD WBC 7.50 K/cmm 4.50 - 11.00 Liver Function Tests Collection DT Spec AST ALT ALK BEE ALBUMIN T BILI T. PROT 08/06/2023 07:31 SERUM 22 24 61 3.0 L 0.7 6.4 HEIGHT: 66 in [167.6 cm] (06/25/2023 13:02) WEIGHT: 178 lb [80.74 kg] (06/25/2023 13:02) BMI: BMI: 28.8 CREATININE-EGFR 08/06/23 07:31 1.67 H 05/05/23 07:48 1.45 H 01/03/23 09:54 1.34 CRCL IBW: CrCl(est): 31.3 mL/min (Creat:1.67 08/06/23) CRCL ACT: 39.7 mL/min CRCL ADJ: 31.3 mL/min (08/06/23) ASSESSMENT: Note Hgb drop by >2 g/dl from lab work on 06/20/23. Action required? [ X ] Yes [ ] No Comments: BLOOD August 05 Jun 19 Dec 24 Reference 2023 2022 2021 07:31 07:35 09:37 Units Ranges HGB 9.8 L 12.1 L 12.4 L g/dL 12.8 - 17 - Alerting PCP of Hgb trend. 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 Will differ to PCP for additional monitoring and follow-up. - May be considered a relative contraindication to anticoagulation, requiring reassessment of risks vs. benefits of continuing anticoagulation therapy. Closer monitoring of CBC may be warranted. - If any change in therapy is made, please notify pt of this as pt is no longer actively followed by [facility]. PLAN: [ ] No action required, dismiss flag [ X ] Will intervene: [ ] Patient education via phone/letter [ ] Schedule phone/[id number] follow up [ ] Lab ordered [ ] Discontinue interacting medication [ ] Discontinue DOAC [ ] Change to alternative DOAC [ ] Change DOAC dose [ X ] Notify PCP [ ] Consult cardiology/hematology [ ] Other: Time spent: 5 minutes /jus/ ADITIYA SERRANO, PHARMD, BCPS CLINICAL PHARMACIST PRACTITIONER Signed: 08/07/2023 13:57 Receipt Acknowledged By: 08/08/2023 06:40 /es/ Ajay Russell DNP, TRAINING SPECIALIST-BC, CNL Primary Care Nurse Practitioner 08/14/2023 ADDENDUM STATUS: COMPLETED Talked with Vet, he will come in 08/14 for redraw. He requests fit to be mailed, kit sent. Also labs faxed to Oncology. Additional labs found in [facility] portal during admission 05/30-06/08 for tachicardia Draw 06/09/23 RBC 3.10 L HGB 9.9 L HCT 30.1 L MCV 97.1 H /es/ Jonah Snow MSN RN CNL Primary Care RN Signed: 08/14/2023 16:13 JOSH MARKS [place]ILSON [place] [facility] [place] [facility] August 07, 2023 01:53 PM PHARMACY MEDICATION MGT NOTE: LOCAL TITLE: PHARMACY ANTICOAGULATION NOTE STANDARD TITLE: PHARMACY MEDICATION MGT NOTE DATE OF NOTE: AUGUST 07, 2023@13:53 ENTRY DATE: AUGUST 07, 2023@13:53:19 AUTHOR: DAMIAN SERRANO EXP COSIGNER: URGENCY: STATUS: COMPLETED PHARMACY ANTICOAGULATION NOTE Has ADDENDA ANTICOAGULATION DOAC MONITORING NOTE SUBJECTIVE: Patient identified through the DOAC population Management Tool based on the following criteria: [ ] Dosing Issue [ ] Critical Drug Interaction [ ] Cancer Treatment [ ] Active NSAID [ ] Labs Overdue [ ] Prosthetic Valve Replacement [ X ] Notable Lab Value [ ] Overdue for Refill [ ] Other: Comments: Pt flagged by DOAC dashboard for Hgb drop greater than 2 while on apixaban therapy. OBJECTIVE: Indication for anticoagulation: [ X ] Atrial fibrilation [ X ] Atrial flutter [ ] VTE (DVT or PE) [ ] Post-op DVT prophylaxis [ ] Other: Most recent lab values include the following: HGB: HGB Collection DT Specimen Test Name Result Units Ref Range 08/06/2023 07:31 BLOOD HGB 9.8 L g/dL 12.8 - 17 PLT: WBC Collection DT Specimen Test Name Result Units Ref Range 08/06/2023 07:31 BLOOD WBC 7.50 K/cmm 4.50 - 11.00 Liver Function Tests Collection DT Spec AST ALT ALK BEE ALBUMIN T BILI T. PROT 08/06/2023 07:31 SERUM 22 24 61 3.0 L 0.7 6.4 HEIGHT: 66 in [167.6 cm] (06/25/2023 13:02) WEIGHT: 178 lb [80.74 kg] (06/25/2023 13:02) BMI: BMI: 28.8 CREATININE-EGFR 08/06/23 07:31 1.67 H 05/05/23 07:48 1.45 H 01/03/23 09:54 1.34 CRCL IBW: CrCl(est): 31.3 mL/min (Creat:1.67 08/06/23) CRCL ACT: 39.7 mL/min CRCL ADJ: 31.3 mL/min (08/06/23) ASSESSMENT: Note Hgb drop by >2 g/dl from lab work on 06/20/23. Action required? [ X ] Yes [ ] No Comments: BLOOD August 05 Jun 19 Dec 24 Reference 2023 2022 2021 07:31 07:35 09:37 Units Ranges HGB 9.8 L 12.1 L 12.4 L g/dL 12.8 - 17 - Alerting PCP of Hgb trend. 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 Will differ to PCP for additional monitoring and follow-up. - May be considered a relative contraindication to anticoagulation, requiring reassessment of risks vs. benefits of continuing anticoagulation therapy. Closer monitoring of CBC may be warranted. - If any change in therapy is made, please notify pt of this as pt is no longer actively followed by [facility]. PLAN: [ ] No action required, dismiss flag [ X ] Will intervene: [ ] Patient education via phone/letter [ ] Schedule phone/[id number]-cldo follow up [ ] Lab ordered [ ] Discontinue interacting medication [ ] Discontinue DOAC [ ] Change to alternative DOAC [ ] Change DOAC dose [ X ] Notify PCP [ ] Consult cardiology/hematology [ ] Other: Time spent: 5 minutes /jus/ DAMIAN SERRANO, [place], BCPS CLINICAL PHARMACIST PRACTITIONER Signed: 08/07/2023 13:57 Receipt Acknowledged By: 08/08/2023 06:40 /jus/ Ajay Russell DNP, TRAINING SPECIALIST-BC, CNL Primary Care Nurse Practitioner 08/14/2023 ADDENDUM STATUS: COMPLETED Called Vet LM to call back. Please contact Vet to return for repeat CBC and iron studies due to what appears to be significant drop in Hgb and HCT. Please also mail FIT test. Last labs I see in [facility] prior to ones drawn here are from [facility] 04/09/23 RBC 4.04L Hgb 13.0L HCT 38.4L MCV 85.1 RDW 14.3 Please fax most recent CBC results to Oncology at [facility]: Dr. George Vaca /jus/ JOSH MARKS NP NURSE PRACTITIONER Signed: 08/14/2023 15:37 Receipt Acknowledged By: * AWAITING SIGNATURE * APRILStephanieJONAH MCGOWAN 08/14/2023 ADDENDUM STATUS: COMPLETED Talked with Vet, he will come in 08/14 for redraw. He requests fit to be mailed, kit sent. Also labs faxed to Oncology. Additional labs found in [facility] portal during admission 05/30-06/08 for tachicardia Draw 06/09/23 RBC 3.10 L HGB 9.9 L HCT 30.1 L MCV 97.1 H /es/ Jnoah Snow MSN RN CNL Primary Care RN Signed: 08/14/2023 16:13 [facility]
--- OUTSIDE RECORDS SUMMARY | 2024-03-26 16:26 | XMS_ITS ---
Author Name [facility] Organization [facility] Address [address] [place] [id number] Care Team Providers Care Educational Paraprofessional Name Role Phone AJAY APODACA Primary Care [...] PART A Nov 22, 2006 PART A [id number] [phone] TONY CASTELLON PATIENT MEDICARE (WNR) MEDICARE (M) PART B Nov 22, 2006 PART B [id number] TONY CASTELLON PATIENT MEDICARE (WNR) MEDICARE (M) PART A Nov 22, 2006 PART A [id number] TONY CASTELLON PATIENT MEDICARE (WNR) MEDICARE (M) PART B Nov 22, 2006 PART B [id number] TONY CASTELLON PATIENT FOR LIFE TFL* Apr 20, 2014 [id number] SUKHJINDER CASTELLON JR PATIENT Selected Encounter This section includes the information on record at [place] for the Encounter. Date/Time Encounter Type Encounter Description Reason Provider Source August 01, 2023 10:38 AM MTMS BY KEEGAN GALICIA 15 MIN TELEPHONE/ANCILLA DONNA ICD-10-CM Z51.81 Encounter for therapeutic drug level monitoring LEN,MAXIMINO JIMENEZ Ondina E Encounter Template Text not used by [place] Assessments - Encounter Diagnoses This section includes the primary and secondary diagnoses documented for the Encounter. Date/Time Primary/Secondary Diagnosis Diagnosis Name Provider Source August 01, 2023 10:38 AM PRIMARY Encounter for therapeutic drug level monitoring LENROMIE MERAZ Ondina [facility] [place] [facility] August 01, 2023 10:38 AM SECOND[facility] prison (current) use of anticoagulants ROMIE HARRINGTON Ondina [facility] [place] [facility] August 01, 2023 10:38 AM SECONDARY Unspecified atrial fibrillation ROMIE HARRINGTON Ondina [facility] [place] [facility] Plan of Treatment: Future Appointments (+ 6 months) and Future Tests (+/- 45 days) The Plan of Treatment section includes future care activities for the [facility] This section includes future appointments and future orders which are active, pending or scheduled. Future Appointments This section includes appointments that were scheduled to occur 6 months from the date of the Encounter, up to a maximum of 20 appointments. The data comes from all [place] treatment facilities. Appointment Date/Time Appointment Type Appointme nt Facility Name August 13, 2023 10:00 AM AMBULATORY - MEDICINE [facility] [place] [facility] Sep 04, 2023 11:00 AM AMBULATORY - MEDICINE [facility] [place] [facility] Sep 23, 2023 09:00 AM AMBULATORY - MEDICINE [facility] [place] [facility] Nov 13, 2023 09:30 AM AMBULATORY - MEDICINE [facility] [place] [facility] Dec 31, 2023 02:00 PM AMBULATORY - MEDICINE [facility] [place] [facility] Jan 06, 2024 09:30 AM AMBULATORY - MEDICINE [facility] [place] [facility] Jan 13, 2024 03:00 PM AMBULATORY - MEDICINE [facility] [place] [facility] Jan 19, 2024 08:30 AM AMBULATORY - REHAB MEDICIN E [facility] [place] [facility] Lab Results: +/- 30 days of the encounter This section includes the Chemistry and Hematology Lab Results on record with [place] for the patient. Radiology Reports and Pathology Reports are provided separately, in subsequent sections. Lab Results This section contains the Chemistry/Hematology Results that were resulted 30 days before or 30 daysafter the date of the Encounter. Date/Time Source Result Type Result - Unit Interpretation Reference Range Comment August 17, 2023 05:30 [facility] OCCULT BLOOD FIT X1 SCREEN(IN-HOUSE) Specimen Type: FECES No comment entered. Ordering Provider: MOE MARKS Report Released Date/Time: August 14, 2023 03:34 PM Reporting Lab: [address] [address] Performing Lab: [address] [address] OCCULT BLOOD (FIT)#1 OF 1 Negative NEG August 15, 2023 08:59 AM [facility] FOLATE (WROX) Specimen Type: SERUM No comment entered. Ordering Provider: MOE MARKS Report Released Date/Time: August 14, 2023 03:34 PM Reporting Lab: [facility] [address] [facility] [address] Performing Lab[facility] [address] [facility] [address] FOLATE (WROX) 13.92 ng/mL >5.2 August 15, 2023 08:59 AM [facility] FERRITIN Specimen Type: SERUM No comment entered. Ordering Provider: MOE MARKS Report Released Date/Time: August 14, 2023 03:34 PM Reporting Lab: [facility] [address] [facility] [address] Performing Lab: [facility] [address] FERRITIN 108 ng/mL 20-300 August 15, 2023 08:59 AM [facility] VITAMIN B12 Specimen Type: SERUM No comment entered. Ordering Provider: MOE MARKS Report Released Date/Time: August 14, 2023 03:34 PM Reporting Lab: [address] [address] Performing Lab: [address] [address] VITAMIN B12 284 pg/mL 200-900 August 15, 2023 08:59 AM [facility] IRON & TIBC PANEL Specimen Type: SERUM No comment entered. Ordering Provider: MOE MARKS Report Released Date/Time: August 14, 2023 03:34 PM Reporting Lab: [address] [address] Performing Lab: [address] [address] TIBC 380 ug/dL 204-475 IRON 71 ug/dL 40-160 Transferrin Saturation 18.7 L 20.0-50.0 August 15, 2023 08:59 AM [facility] CBC AND DIFF (AUTO) Specimen Type: BLOOD No comment entered. Ordering Provider: MOE MARKS Report Released Date/Time: August 14, 2023 03:34 PM Reporting Lab: [address] [address] Performing Lab: [address] [address] WBC 5.70 10*3/uL 4.50-11.00 RBC 3.35 10*6/uL L 4.23-5.66 HGB 10.3 g/dL L 12.8-17 HCT 32.9 L 39.2-50.4 MCV 98.2 fL 82-99 MCHC 31.3 g/dL 30.8-35.1 PLT 303 10*3/uL 140-360 RDW-CV 14.2 12.0-16.0 [place], Abs 0.63 10*3/uL 0.30-1.10 MCH 30.7 pg 26.2-32.6 Neut % 73.0 43.7-75.8 Lymph % 14.2 14.0-42.3 [place] % 11.1 5.1-13.7 Eos % 0.4 0.4-6.8 Baso % 0.4 0.1-2.0 Neut, Abs 4.17 10*3/uL 2.20-7.60 Lymph, Abs 0.81 10*3/uL L 1.00-3.20 Eos, Abs 0.02 10*3/uL L 0.03-0.44 Baso, Abs 0.02 10*3/uL 0.01-0.13 Immature Gran % 0.9 H 0.0-0.7 Immature Gran, Abs 0.05 10*3/uL 0.00-0.06 August 06, 2023 07:31 AM [facility] LIVER FUNCTION Specimen Type: SERUM No comment entered. Ordering Provider: GEORGINA ARITA Report Released Date/Time: Jun 06, 2023 11:30 AM Reporting Lab: [address] [address] Performing Lab: [address] [address] PROTEIN,TOTAL 6.4 g/dL 6.0-8.3 ALBUMIN 3.0 g/dL L 3.5-5.0 ALKALINE PHOSPHATASE 61 U/L 40-150 AST 22 U/L 5-34 ALT 24 U/L BILIRUBIN, TOTAL 0.7 mg/dL 0.2-1.2 August 06, 2023 07:31 AM [facility] CBC AND DIFF (AUTO) Specimen Type: BLOOD No comment entered. Ordering Provider: GEORGINA ARITA Report Released Date/Time: Jun 06, 2023 11:30 AM Reporting Lab: [address] [address] Performing Lab: [address] [address] WBC 7.50 10*3/uL 4.50-11.00 RBC 3.17 10*6/uL L 4.23-5.66 HGB 9.8 g/dL L 12.8-17 HCT 31.1 L 39.2-50.4 MCV 98.1 fL 82-99 MCHC 31.5 g/dL 30.8-35.1 PLT 181 10*3/uL 140-360 RDW-CV 14.2 12.0-16.0 [place], Abs 0.70 10*3/uL 0.30-1.10 MCH 30.9 pg 26.2-32.6 Neut % 79.2 H 43.7-75.8 Lymph % 10.1 L 14.0-42.3 [place] % 9.3 5.1-13.7 Eos % 0.3 L 0.4-6.8 Baso % 0.4 0.1-2.0 Neut, Abs 5.94 10*3/uL 2.20-7.60 Lymph, Abs 0.76 10*3/uL L 1.00-3.20 Eos, Abs 0.02 10*3/uL L 0.03-0.44 Baso, Abs 0.03 10*3/uL 0.01-0.13 Immature Gran % 0.7 0.0-0.7 Immature Gran, Abs 0.05 10*3/uL 0.00-0.06 August 06, 2023 07:31 AM [facility] HEMOGLOBIN A1C PANEL [...] May 07, 2023 02:07 PM Reporting Lab: [address] [address] Performing Lab: [address] [address] HEMOGLOBIN A1C 7.7 H 4.0-5.6 August 06, 2023 07:31 AM [facility] BASIC METABOLIC PANEL (non-fasting) Specimen Type: SERUM No comment entered. Ordering Provider: MIAH BUTTS Report Released Date/Time: May 07, 2023 02:07 PM Reporting Lab: [facility] [place] [facility] [address] [facility] [address] Performing Lab: [facility] [place] [facility] [address] [facility] [address] UREA NITROGEN 31 mg/dL H 7-25 GLUCOSE [...] and tobacco- related health factors from the [place] facility where the Encounter took place. Current Smoking Status This section includes the most current smoking, or tobacco-related health factor, from the [place] facility where the Encounter took place. Date/Time Current Smoking Status Comment [facility] Dec 24, 2022 10:30 AM VA-TOBACCO FORMER USER [facility] Tobacco Use History This section includes a history of the smoking, or tobacco-related health factors, that were collected on or before the date of the Encounter. The data comes from the [place] facility where the Encounter took place. Date/Time Smoking Status/Tobac co Use Comment Facility Dec 24, 2022 10:30 AM VA-TOBACCO QUIT 15 YRS OR MORE [facility] [place] [facility] Dec 24, 2021 10:00 AM VA-TOBACCO FORMER USER [facility] [place] [facility] Dec 24, 2021 10:00 AM VA-TOBACCO QUIT 5 TO < 15 YRS [facility] [place] [facility] Dec 14, 2020 08:30 AM VA-TOBACCO FORMER USER [facility] [place] [facility] Dec 14, 2020 08:30 AM VA-TOBACCO QUIT 5 TO < 15 YRS [facility] [place] [facility] Nov 15, 2019 11:00 AM VA-TOBACCO FORMER USER [facility] [place] [facility] Nov 15, 2019 11:00 AM VA-TOBACCO QUIT 5 TO < 15 YRS [facility] Oct 20, 2017 08:19 AM [facility] Oct 20, 2017 08:19 AM HI-TOBACCO QUIT 5 TO < 15 YRS [facility] Sep 04, 2017 11:09 AM QUIT TOBACCO USE > 7 YEARS AGO [facility] Oct 16, 2016 09:08 AM QUIT TOBACCO USE > 7 YEARS AGO [facility] Feb 20, 2015 10:58 AM QUIT TOBACCO USE > 7 YEARS AGO quit 2009-cigarettes and cigars for 45 years [facility] Advance Directives: All historical and current Section Date Range: From patient's date of to the date document was created. This section includes ALL of a patient's completed or amended [place] Advance and Rescinded Directives. The entries below indicate that a directive exists for the patient, but an actual copy is not included with this document. The data comes from all [place] facilities. Date Advance Directives Provider Source Mar 23, 2014 ADVANCE DIRECTIVE ROSALINDA SHELBY [facility] Encounter Notes: All associated encounter notes This section contains the clinical notes associated to the Encounter. Date/Time Encounter Note(s) Provider Source August 01, 2023 10:38 AM PHARMACY MEDICATION MGT NOTE: LOCAL TITLE: PHARMACY ANTICOAGULATION NOTE STANDARD TITLE: PHARMACY MEDICATION MGT NOTE DATE OF NOTE: AUGUST 01, 2023@10:38 ENTRY DATE: AUGUST 01, 2023@10:38:21 AUTHOR: JAMES FITCH COSIGNER: URGENCY: STATUS: COMPLETED PHARMACY ANTICOAGULATION NOTE [...] LDH PROTEIN,TOTAL HEIGHT: 66 in [167.6 cm] (06/25/2023 13:02) WEIGHT: 178 lb [80.74 kg] (06/25/2023 13:02) BMI: BMI: 28.8 CREATININE-EGFR 05/05/23 07:48 1.45 H 01/03/23 09:54 1.34 10/01/22 09:40 1.46 H CRCL IBW: CrCl(est): 36.1 mL/min (Creat:1.45 05/05/23) CRCL ACT: 45.72 mL/min CRCL ADJ: 36.1 mL/min (05/05/23) ASSESSMENT: refill overdue Action required? [ ] Yes [ X ] No Comments: Spoke with who reports that he is taking a half tablet twice daily and has a large supply at home. He does not need a refill at this time and will call clinic when a refill is needed. PLAN: [ X ] No action required, dismiss flag [ ] Will intervene: [ ] Patient education via phone/letter [ ] Schedule phone/[id number] follow up [ ] Lab ordered [ ] Discontinue interacting medication [ ] Discontinue DOAC [ ] Change to alternative DOAC [ ] Change DOAC dose [ ] Notify PCP [ ] Consult cardiology/hematology [ ] Other: Time spent: 5 min /jus/ JAMES FITCH CPHT Clinical Janitor Supervisor Signed: 08/01/2023 10:39 Receipt Acknowledged By: 08/01/2023 10:41 /jus/ TOM HARRINGTON PHARMD, [facility] Clinical Pharmacist Practitioner 08/01/2023 ADDENDUM STATUS: COMPLETED Above case reviewed as entered by [facility] Candy Dipper. Agree with current assessment and plan of care for this patient's anticoagulation management as noted. /tyree HARRINGTON PHARMD, [facility] Clinical Pharmacist Practitioner Signed: 08/01/2023 10:42 JAMES FITCH [facility]
--- OUTSIDE RECORDS SUMMARY | 2024-03-26 16:26 | XMS_ITS | Encounter Summary ---
Author Name [facility] [place] Organization [facility] [place] Address [address] [place] [id number] Care Team Providers Care Credit Union Manager Name Role Phone AJAY APODACA Primary Care [...] PART A Nov 22, 2006 PART A [id number] TONY CASTELLON PATIENT MEDICARE (WNR) MEDICARE (M) PART B Nov 22, 2006 PART B [id number] TONY CASTELLON PATIENT MEDICARE (WNR) MEDICARE (M) PART A Nov 22, 2006 PART A [id number] TONY CASTELLON PATIENT MEDICARE (WNR) MEDICARE (M) PART B Nov 22, 2006 PART B [id number] [phone] TONY CASTELLON PATIENT FOR LIFE TFL* Apr 20, 2014 [id number] SUKHJINDER CASTELLON JR PATIENT Selected Encounter This section includes the information on record at [place] for the Encounter. Date/Time Encounter Type Encounter Description Reason Provider Source August 13, 2023 10:00 AM CONT GLUC MNTR PT PROV EQP ENDOCRINOLOGY ICD-10-CM E11.8 Type 2 diabetes mellitus with unspecified complications IRIS CARDENAS [facility] Encounter Template Text not used by [place] Assessments - Encounter Diagnoses This section includes the primary and secondary diagnoses documented for the Encounter. Date/Time Primary/Secondary Diagnosis Diagnosis Name Provider Source August 13, 2023 10:52 AM PRIMARY Type 2 diabetes mellitus with unspecified complications IRIS [facility]NAS [facility] Plan of Treatment: Future Appointments (+ 6 months) and Future Tests (+/- 45 days) The Plan of Treatment section includes future care activities for the patient from all [place] [facility] [facility]. This section includes future appointments and future orders which are active, pending or scheduled. Future Appointments This section includes appointments that were scheduled to occur 6 months from the date of the Encounter, up to a maximum of 20 appointments. The data comes from all [place] treatment facilities. Appointment Date/Time Appointment Type Appointme nt Facility Name Sep 04, 2023 11:00 AM AMBULATORY - MEDICINE [place] [facility] [place] [facility] Sep 23, 2023 09:00 AM AMBULATORY - MEDICINE [place] [facility] [place] [facility] Nov 13, 2023 09:30 AM AMBULATORY - MEDICINE [place] [facility] [place] [facility] Dec 31, 2023 02:00 PM AMBULATORY - MEDICINE [place] [facility] [place] [facility] Jan 06, 2024 09:30 AM AMBULATORY - MEDICINE [place] [facility] [place] [facility] Jan 13, 2024 03:00 PM AMBULATORY - MEDICINE [place] [facility] [place] [facility] Jan 19, 2024 08:30 AM AMBULATORY - REHAB MEDICIN E [place] [facility] [place] [facility] Lab Results: +/- 30 days [...] Range Comment August 17, 2023 05:30 AM [facility] OCCULT BLOOD FIT X1 SCREEN(IN-HOUSE) Specimen Type: FECES No comment entered. Ordering Provider: MOE MARKS Report Released Date/Time: August 14, 2023 03:34 PM Reporting Lab: [facility] [address] [address] Performing Lab: [facility] [address] [address] OCCULT BLOOD (FIT)#1 OF 1 Negative NEG August 15, 2023 08:59 AM [facility] FOLATE (WROX) Specimen Type: SERUM No comment entered. Ordering Provider: MOE MARKS Report Released Date/Time: August 14, 2023 03:34 PM Reporting Lab: [facility] [address] [address] Performing Lab: [facility] [address] [facility] [address] FOLATE (WROX) 13.92 ng/mL >5.2 August 15, 2023 08:59 AM [facility] FERRITIN Specimen Type: SERUM No comment entered. Ordering Provider: MOE MARKS Report Released Date/Time: August 14, 2023 03:34 PM Reporting Lab: [facility] [address] [address] Performing Lab: [facility]STR[facility]ITAL[facility] [address] [address] FERRITIN 108 ng/mL 20-300 August 15, 2023 08:59 AM [facility] VITAMIN B12 Specimen Type: SERUM No comment entered. Ordering Provider: MOE MARKS Report Released Date/Time: August 14, 2023 03:34 PM Reporting Lab: [facility] [address] [address] Performing Lab: [facility]N [facility]ITALUSE[address] [address] VITAMIN B12 284 pg/mL 200-900 August 15, 2023 08:59 AM [facility] IRON & TIBC PANEL Specimen Type: SERUM No comment entered. Ordering Provider: MOE MARKS Report Released Date/Time: August 14, 2023 03:34 PM Reporting Lab: [address] [address] Performing Lab: [address] [address] TIBC 380 ug/dL 204-475 IRON 71 ug/dL 40-160 Transferrin Saturation 18.7 L 20.0-50.0 August 15, 2023 08:59 AM [facility] CBC AND DIFF (AUTO) Specimen Type: BLOOD No comment entered. Ordering Provider: MOE MARKS Report Released Date/Time: August 14, 2023 03:34 PM Reporting Lab: [address] [address] Performing Lab: [address] [address] WBC 5.70 10*3/uL 4.50-11.00 RBC 3.35 10*6/uL L 4.23-5.66 HGB 10.3 g/dL L 12.8-17 HCT 32.9 L 39.2-50.4 MCV 98.2 fL 82-99 MCHC 31.3 g/dL 30.8-35.1 PLT 303 10*3/uL 140-360 RDW-CV 14.2 12.0-16.0 [place], Abs 0.63 10*3/uL 0.30-1.10 MCH 30.7 pg 26.2-32.6 Neut % 73.0 43.7-75.8 Lymph % 14.2 14.0-42.3 [place] % 11.1 5.1-13.7 Eos % 0.4 0.4-6.8 Baso % 0.4 0.1-2.0 Neut, Abs 4.17 10*3/uL 2.20-7.60 Lymph, Abs 0.81 10*3/uL L 1.00-3.20 Eos, Abs 0.02 10*3/uL L 0.03-0.44 Baso, Abs 0.02 10*3/uL 0.01-0.13 Immature Gran % 0.9 H 0.0-0.7 Immature Gran, Abs 0.05 10*3/uL 0.00-0.06 August 06, 2023 07:31 AM [facility] LIVER FUNCTION Specimen Type: SERUM No comment entered. Ordering Provider: GEORGINA ARITA Report Released Date/Time: Jun 06, 2023 11:30 AM Reporting Lab: [address] [address] Performing Lab: [address] [address] PROTEIN,TOTAL 6.4 g/dL 6.0-8.3 ALBUMIN 3.0 g/dL L 3.5-5.0 ALKALINE PHOSPHATASE 61 U/L 40-150 AST 22 U/L 5-34 ALT 24 U/L BILIRUBIN, TOTAL 0.7 mg/dL 0.2-1.2 August 06, 2023 07:31 AM [facility] CBC AND DIFF (AUTO) Specimen Type: BLOOD No comment entered. Ordering Provider: GEORGINA ARITA Report Released Date/Time: Jun 06, 2023 11:30 AM Reporting Lab: [address] [address] Performing Lab: [address] [address] WBC 7.50 10*3/uL 4.50-11.00 RBC 3.17 10*6/uL L 4.23-5.66 HGB 9.8 g/dL L 12.8-17 HCT 31.1 L 39.2-50.4 MCV 98.1 fL 82-99 MCHC 31.5 g/dL 30.8-35.1 PLT 181 10*3/uL 140-360 RDW-CV 14.2 12.0-16.0 [place], Abs 0.70 10*3/uL 0.30-1.10 MCH 30.9 pg 26.2-32.6 Neut % 79.2 H 43.7-75.8 Lymph % 10.1 L 14.0-42.3 [place] % 9.3 5.1-13.7 Eos % 0.3 L 0.4-6.8 Baso % 0.4 0.1-2.0 Neut, Abs 5.94 10*3/uL 2.20-7.60 Lymph, Abs 0.76 10*3/uL L 1.00-3.20 Eos, Abs 0.02 10*3/uL L 0.03-0.44 Baso, Abs 0.03 10*3/uL 0.01-0.13 Immature Gran % 0.7 0.0-0.7 Immature Gran, Abs 0.05 10*3/uL 0.00-0.06 August 06, 2023 07:31 AM [facility] HEMOGLOBIN A1C PANEL Specimen Type: BLOOD [...] May 07, 2023 02:07 PM Reporting Lab: [address] [address] Performing Lab: [address] [address] HEMOGLOBIN A1C 7.7 H 4.0-5.6 August 06, 2023 07:31 AM [facility] BASIC METABOLIC PANEL (non-fasting) Specimen Type: SERUM No comment entered. Ordering Provider: MIAH BUTTS Report Released Date/Time: May 07, 2023 02:07 PM Reporting Lab: [address] [address] Performing Lab: [address] [address] UREA NITROGEN 31 mg/dL H 7-25 GLUCOSE 230 mg/dL H 65-100 SODIUM 136 mmol/L 135-145 POTASSIUM 4.2 mmol/L 3.5-5.0 CHLORIDE 103 mmol/L 100-110 CO2 21 meq/L 20-30 CREATININE, Serum 1.67 mg/dL H 0.50-1.40 eGFR(CKD-EPI 2020) 41 mL/min L >60 Vital Signs: All taken on the encounter date This section contains inpatient and outpatient Vital Signs collected on the date of the Encounter. Date/Time Temperature Pulse Blood Pressure Respiratory Rate SP02 Pain Height Weight Body Mass Index Source August 13, 2023 10:05 AM 112/52 [place] [facility] [place] [facility] August 13, 2023 10:04 AM 97.2 69 95/51 18 93 0 176.2 28 [place] [facility] [facility] Social History: Smoking Status (Most [...] 24, 2022 10:30 AM VA-TOBACCO FORMER USER [place] [facility] [place] [facility] Tobacco Use History This section includes a history of the smoking, or tobacco-related health factors, that were collected on or before the date of the Encounter. The data comes from the [place] facility where the Encounter took place. Date/Time Smoking Status/Tobac co Use Comment Facility Dec 24, 2022 10:30 AM VA-TOBACCO QUIT 15 YRS OR MORE [facility] [place] [facility] Dec 24, 2021 10:00 AM VA-TOBACCO FORMER USER [facility] [place] [facility] Dec 24, 2021 10:00 AM VA-TOBACCO QUIT 5 TO < 15 YRS [facility] [place] [facility] Dec 14, 2020 08:30 AM VA-TOBACCO FORMER USER [facility] [place] [facility] Dec 14, 2020 08:30 AM VA-TOBACCO QUIT 5 TO < 15 YRS [facility] [place] [facility] Nov 15, 2019 11:00 AM VA-TOBACCO FORMER USER [facility] [place] [facility] Nov 15, 2019 11:00 AM VA-TOBACCO QUIT 5 TO < 15 YRS [facility] [place] [facility] Oct 20, 2017 08:19 AM VA-TOBACCO FORMER USER [place] [facility] Oct 20, 2017 08:19 AM VA-TOBACCO QUIT 5 TO < 15 YRS [facility] Sep 04, 2017 11:09 AM QUIT TOBACCO USE > 7 YEARS AGO [facility] Oct 16, 2016 09:08 AM QUIT TOBACCO USE > 7 YEARS AGO [facility] Feb 20, 2015 10:58 AM QUIT TOBACCO USE > 7 YEARS AGO quit 2009-cigarettes and cigars for 45 years [facility] Advance Directives: All historical and current [...] Mar 23, 2014 ADVANCE DIRECTIVE ROSALINDA SHELBY [facility] Encounter Notes: All associated encounter notes This section contains the clinical notes associated to the Encounter. Date/Time Encounter Note(s) Provider Source Aug 27, 2023 02:52 PM ADDENDUM: LOCAL TITLE: Addendum STANDARD TITLE: ADDENDUM DATE OF NOTE: AUG 27, 2023@14:52:37 ENTRY DATE: AUG 27, 2023@14:52:38 AUTHOR: JOSH MARKSIGNER: URGENCY: STATUS: COMPLETED Vet with new but stable anemia. FIT test negative. Please schedule f/u with PCP. CBC TREND Collection DT Spec WBC RBC HGB HCT MCV MCH PLT 08/15/2023 08:59 BLOOD 5.70 3.35 L 10.3 L 32.9 L 98.2 30.7 303 08/06/2023 07:31 BLOOD 7.50 3.17 L 9.8 L 31.1 L 98.1 30.9 181 06/19/2022 07:35 BLOOD 5.49 3.87 L 12.1 L 38.1 L 98.4 31.3 149 12/24/2021 09:37 BLOOD 5.58 3.99 L 12.4 L 38.4 L 96.2 31.1 163 06/20/2021 08:13 BLOOD 7.22 3.82 L 11.6 L 36.3 L 95.0 30.4 171 /jus/ JOSH MARKS NP NURSE PRACTITIONER Signed: 08/27/2023 15:00 Receipt Acknowledged By: 08/28/2023 07:47 /es/ NARA MARTIN ADVANCED TEST WORKER --- Original Document --- 08/10/23 NOTE: CC: Diabetes mellitus with chronic kidney disease, HTN, Hyperlipidemia, overweight HPI: Just got pacemaker. Very fatigued. Previously followed by CPP All endocrine labs were reviewed with the patient. Barriers/s supports for care: Now back in his own condo. Cooks for himself. Three meals a day. Medications for diabetes: glargine 18 units AM and 9 units PM and aspart 11/28/10 BG readings:CGM Hgba1c? HEMOGLOBIN A1C TREND 08/06/2023 07:31 BLOOD 7.7 H 05/05/2023 07:48 BLOOD 7.2 H 01/03/2023 09:54 BLOOD 7.8 H 10/01/2022 09:40 BLOOD 7.8 H 06/19/2022 07:36 BLOOD 8.1 H Weight trend: 178 lbs 28.79 Down 10 lbs in past year Food insecurity no Physical activity: little Carbohydrate counting: well informed Episodes of hypoglycemia: reduced glargine due to hypoglycemia Hypoglycemia unawareness: no Neuropathy pain: no burning Last eye evaluation: 03/[address] Last nephropathy screen MICROALBUMIN May 05, 2023@07:48 URINE mALB/Cr: canc mg/G 0 - 29.9 May 05, 2023@07:48 URINE MICROALBUMIN,QUANTITATIVE:< 0.5 FindingsCREATININE-EGFR 08/06/23 07:31 1.67 H 05/05/23 07:48 1.45 H 01/03/23 09:54 1.34 Statin therapy: May 05 2023 CHOL 86 mg/dL <7 - 199 TRIG 74 mg/dL 0 - 150 HDL 31 L mg/dL 40 - 60 LDL 40 mg/dL 0 - 55 CAD: PVD On asa: yes emergency kit/glucose tabs: glucagon n/a Active problems - Computerized Problem List is the source for the followin. Exposure to potentially hazardous substance ([facility] [id number]) 2. Cardiac pacemaker in situ 3. Chronic obstructive pulmonary disease 4. Sleep apnea 5. Shared care prescribing 6. Overweight 7. Peripheral neuropathy due to type 2 diabetes mellitus 8. Type 2 diabetes mellitus 9. Chronic kidney disease due to type 2 diabetes mellitus 10. Long-term current use of anticoagulant 11. Elevated liver enzymes level 12. Hearing loss 13. Essential hypertension 14. Atrial fibrillation 15. Peripheral vascular disease 16. T-cell lymphoma 17. Hyperlipidemia 18. Benign prostatic hyperplasia 19. Herpes zoster infection Active Outpatient Medications (including Supplies): APIXABAN 5MG TAB TAKE ONE-HALF TABLET BY MOUTH TWICE DAILY ACTIVE FOR PREVENTION OF BLOOD CLOTS CARBOXYMETHYLCELLULOSE NA 0.5% OPH SOLN INSTILL 1 DROP ACTIVE INTO EACH EYE TWICE DAILY GLUCOSE 4GM CHEW TAB CHEW THREE TO FOUR TABLETS BY MOUTH ACTIVE NEEDED FOR LOW BLOOD SUGAR BELOW 70 GLUCOSE SENSOR FREESTYLE DEVON 2 USE 1 SENSOR DIRECTED ACTIVE EVERY 14 DAYS INSULIN,ASPART(EQV-NOVLG)100UN/ ML FLXPEN INJECT 18 UNITS ACTIVE SUBCUTANEOUSLY EVERY MORNING AND INJECT 7 UNITS AT NOON AND INJECT 11 UNITS EVERY EVENING BEFORE SUPPER INSULIN,GLARGINE-YFGN 100UNIT/ML PEN 3ML INJECT 38 UNITS ACTIVE SUBCUTANEOUSLY AT BEDTIME LIDOCAINE 5% OINT APPLY LIBERAL AMOUNT TOPICALLY TWICE ACTIVE DAILY NEEDED FOR NEUROPATHY PAIN Non-VA AMIODARONE HCL 200MG TAB 200MG BY MOUTH TWICE DAILY ACTIVE Non-VA ASPIRIN 81MG EC TAB 81MG BY MOUTH EVERY DAY ACTIVE Non-VA ATORVASTATIN CALCIUM 20MG TAB 10MG BY MOUTH ACTIVE Non-VA CHOLECALCIF 50MCG (D3-2,000UNIT) TAB 50MCG BY MOUTH ACTIVE ONCE DAILY Non-VA FENOFIBRATE 54MG TAB 108MG BY MOUTH ONCE DAILY ACTIVE Non-VA FERROUS GLUCONATE 324MG TAB 324MG BY MOUTH ONCE ACTIVE discontinued DAILY Non-VA FINASTERIDE 5MG TAB 5MG BY MOUTH ONCE DAILY ACTIVE Non-VA FLUTICAS 500/SALMETEROL 50 INHL DISK 60 1 PUFF BY ACTIVE MOUTH ONCE DAILY Non-VA FUROSEMIDE 40MG TAB 40MG BY MOUTH ONCE DAILY ACTIVE twice daily Non-VA METOPROLOL TARTRATE 25MG TAB 12.5MG BY MOUTH TWICE ACTIVE DAILY Non-VA TERAZOSIN HCL 5MG CAP 5MG BY MOUTH ONCE DAILY ACTIVE SHX: as above ROS: No cough or fever PE: affect pleasant appropriate Speaking easily in full sentences Feet pulses mild decrease sensory to monofilament normal lesions No Medical Decision Making: Diabetes mellitus with chronic kidney disease: Insulin Dose: Glargine 10 units BID and novolog 09/28/14 Dus Carbohydrate targets 45 gm TID Blood sugar targets 130 -150 premeal and 150-200 after Hemoglobin A1c Targets 8 Overweight not really addressed this visit Hypertension lower bp today, relates sbp 120s at home, has cardiology appt today Hyperlipidemia Well controlled Team follow up none at this time. Declines nutrition lab FLP BMP Hgba1c microalb next visit. Insulin orders updated in cprs F/u three mos FTF Medication Reconciliation: Outpatient: Has the patient been taking medications as documented in the EMLR? No: Discrepencies were identified. See below. Essential Medication List for Review used to complete this medication reconciliation. INCLUDED IN THIS LIST: Alphabetical list of active outpatient prescriptions dispensed from this [place] (local) and dispensed from another VA or DoD facility (remote) as well as [...] whether with a VA or non-VA provider. JLV Link Data on this list may not be complete. Please check JLV. Allergies/ADRs (Tool #5) FACILITY ALLERGY/ADR -------- No Remote Allergy/ADR Data available for this patient [place] [facility] [place] [facility] No Known Allergies Med Recon NoGlossary (Tool #1) INCLUDED IN THIS LIST: Alphabetical list of active outpatient prescriptions dispensed from this MA (local) and dispensed from another VA or DoD facility (remote) as well as inpatient orders (local pending and active), local clinic medications, locally documented non-VA medications, and local prescriptions that have or been discontinued in the past 90 days. Non-VA Meds Last Documented On: Jun 25, 2023 NOTE The display of VA prescriptions dispensed from another VA or DoD facility (remote) is limited to active outpatient prescription entries matched to National Drug File at the originating site and may not include some items such as investigational drugs, compounds, etc. NOT INCLUDED IN THIS LIST: Medications self-entered by the patient into personal health records (i.e. FANCRU) are NOT included in this list. Non-VA medications documented outside this MA, remote inpatient orders (regardless of status) and remote clinic medications are NOT included in this list. The patient and provider must always discuss medications the patient is taking, regardless of where the medication was dispensed or obtained. Non-VA AMIODARONE HCL 200MG TAB TAKE ONE TABLET BY MOUTH TWICE DAILY OUTPT APIXABAN 5MG TAB (Status = Active) TAKE ONE-HALF TABLET BY MOUTH TWICE DAILY FOR PREVENTION OF BLOOD CLOTS Rx# [id number] Last Released: 01/06/23 Qty/Days Supply: Rx Expiration Date: 12/25/23 Refills Remainin Indication: FOR PREVENTION OF BLOOD CLOTS Non-VA ASPIRIN 81MG EC TAB TAKE ONE TABLET BY MOUTH EVERY DAY Non-VA ATORVASTATIN CALCIUM 20MG TAB TAKE ONE-HALF TABLET BY MOUTH OUTPT CARBOXYMETHYLCELLULOSE NA 0.5% OPH SOLN (Status = Active) INSTILL 1 DROP INTO EACH EYE TWICE DAILY Rx# [id number] Last Released: 04/04/23 Qty/Days Supply: Rx Expiration Date: 01/10/24 Refills Remainin Non-VA CHOLECALCIF 50MCG (D3-2,000UNIT) TAB TAKE ONE TABLET BY MOUTH ONCE DAILY OUTPT EMPAGLIFLOZIN 10MG TAB (Status = Discontinued) TAKE ONE-HALF TABLET BY MOUTH ONCE DAILY Rx# [id number] Last Released: 05/08/23 Qty/Days Supply: Rx Expiration Date: 05/07/24 Refills Remainin Indication: FOR TYPE 2 DIABETES MELLITUS Non-VA FENOFIBRATE 54MG TAB TAKE TWO TABLETS BY MOUTH ONCE DAILY Non-VA FERROUS GLUCONATE 324MG TAB TAKE ONE TABLET BY MOUTH ONCE DAILY Non-VA FINASTERIDE 5MG TAB TAKE ONE TABLET BY MOUTH ONCE DAILY Non-VA FLUTICAS 500/SALMETEROL 50 INHL DISK 60 INHL DISK 60 INHALE 1 PUFF BY MOUTH ONCE DAILY Non-VA FUROSEMIDE 40MG TAB TAKE ONE TABLET BY MOUTH ONCE DAILY OUTPT GLUCOSE 4GM CHEW TAB (Status = Active) CHEW THREE TO FOUR TABLETS BY MOUTH NEEDED FOR LOW BLOOD SUGAR BELOW 70 Rx# [id number] Last Released: 07/25/23 Qty/Days Supply: Rx Expiration Date: 01/10/24 Refills Remainin OUTPT INSULIN,ASPART(EQV-NOVLG)100UN/ ML FLXPEN (Status = Active) INJECT 18 UNITS SUBCUTANEOUSLY EVERY MORNING AND INJECT 7 UNITS AT NOON AND INJECT 11 UNITS EVERY EVENING BEFORE SUPPER Rx# [id number] Last Released: 05/08/23 Qty/Days Supply: Rx Expiration Date: 05/07/24 Refills Remainin Indication: FOR DIABETES OUTPT INSULIN,GLARGINE-YFGN 100UNIT/ML PEN 3ML (Status = Active) INJECT 38 UNITS SUBCUTANEOUSLY AT BEDTIME Rx# [id number] Last Released: 05/08/23 Qty/Days Supply: Rx Expiration Date: 05/07/24 Refills Remainin Indication: FOR DIABETES OUTPT LIDOCAINE 5% OINT (Status = Active) APPLY LIBERAL AMOUNT TOPICALLY TWICE DAILY NEEDED FOR NEUROPATHY PAIN Rx# [id number] Last Released: 05/24/23 Qty/Days Supply: Rx Expiration Date: 12/17/23 Refills Remainin Indication: NEUROPATHY PAPIN OUTPT LOSARTAN 50MG TAB (Status = Discontinued) TAKE ONE TABLET BY MOUTH ONCE DAILY FOR BLOOD PRESSURE/HEART Rx# [id number] Last Released: 06/06/23 Qty/Days Supply: Rx Expiration Date: 12/25/23 Refills Remainin Indication: FOR HIGH BLOOD PRESSURE Non-VA METOPROLOL TARTRATE 25MG TAB TAKE ONE-HALF TABLET BY MOUTH TWICE DAILY Non-VA TERAZOSIN HCL 5MG CAP TAKE 1 CAPSULE BY MOUTH ONCE DAILY SUPPLIES OUTPT GLUCOSE SENSOR FREESTYLE DEVON 2 (Status = Active) USE 1 SENSOR DIRECTED EVERY 14 DAYS Rx# [id number] Last Released: 07/25/23 Qty/Days Supply: 05/21 Rx Expiration Date: 01/28/24 Refills RemaininSadaf anton/ MIAH BUTTS MD STAFF PHYSICIAN Signed: 08/13/2023 12:40 RA SELINASIXTORAHUL OREILLY [facility] August 13, 2023 10:52 AM DIABETOLOGY NOTE: LOCAL TITLE: INSULIN PUMP/CGM DOWNLOAD (T) STANDARD TITLE: DIABETOLOGY NOTE DATE OF NOTE: AUGUST 13, 2023@10:52 ENTRY DATE: AUGUST 13, 2023@10:52:13 AUTHOR: MELANIA CARDENAS EXP COSIGNER: URGENCY: STATUS: COMPLETED Please select: Personal Continuous Glucose Monitor Date of Documentation:July Please see attached scanned document in [facility]. Dx: Diabetes type 2 Devon 2 /jus/ MELANIA CARDENAS LPN Specialty Care Signed: 08/13/2023 10:53 MELANIA CARDENAS [facility] August 10, 2023 01:44 PM PHYSICIAN NOTE: LOCAL TITLE: MD NOTE STANDARD TITLE: PHYSICIAN NOTE DATE OF NOTE: AUGUST 10, 2023@13:44 ENTRY DATE: AUGUST 10, 2023@13:44:31 AUTHOR: MIAH BUTTS COSIGNER: URGENCY: STATUS: COMPLETED NOTE Has ADDENDA CC: Diabetes mellitus with chronic kidney disease, HTN, Hyperlipidemia, overweight HPI: Just got pacemaker. Very fatigued. Previously followed by CPP All endocrine labs were reviewed with the patient. Barriers/s supports for care: Now back in his own condo. Cooks for himself. Three meals a day. Medications for diabetes: glargine 18 units AM and 9 units PM and aspart 11/28/10 BG readings:CGM Hgba1c? HEMOGLOBIN A1C TREND 08/06/2023 07:31 BLOOD 7.7 H 05/05/2023 07:48 BLOOD 7.2 H 01/03/2023 09:54 BLOOD 7.8 H 10/01/2022 09:40 BLOOD 7.8 H 06/19/2022 07:36 BLOOD 8.1 H Weight trend: 178 lbs 28.79 Down 10 lbs in past year Food insecurity no Physical activity: little Carbohydrate counting: well informed Episodes of hypoglycemia: reduced glargine due to hypoglycemia Hypoglycemia unawareness: no Neuropathy pain: no burning Last eye evaluation: 03/[address] Last nephropathy screen MICROALBUMIN May 05, 2023@07:48 URINE mALB/Cr: canc mg/G 0 - 29.9 May 05, 2023@07:48 URINE MICROALBUMIN,QUANTITATIVE:< 0.5 FindingsCREATININE-EGFR 08/06/23 07:31 1.67 H 05/05/23 07:48 1.45 H 01/03/23 09:54 1.34 Statin therapy: May 05 2023 CHOL 86 mg/dL <7 - 199 TRIG 74 mg/dL 0 - 150 HDL 31 L mg/dL 40 - 60 LDL 40 mg/dL 0 - 55 CAD: PVD On asa: yes emergency kit/glucose tabs: glucagon n/a Active problems - Computerized Problem List is the source for the followin. Exposure to potentially hazardous substance ([facility] [id number]) 2. Cardiac pacemaker in situ 3. Chronic obstructive pulmonary disease 4. Sleep apnea 5. Shared care prescribing 6. Overweight 7. Peripheral neuropathy due to type 2 diabetes mellitus 8. Type 2 diabetes mellitus 9. Chronic kidney disease due to type 2 diabetes mellitus 10. Long-term current use of anticoagulant 11. Elevated liver enzymes level 12. Hearing loss 13. Essential hypertension 14. Atrial fibrillation 15. Peripheral vascular disease 16. T-cell lymphoma 17. Hyperlipidemia 18. Benign prostatic hyperplasia 19. Herpes zoster infection Active Outpatient Medications (including Supplies): APIXABAN 5MG TAB TAKE ONE-HALF TABLET BY MOUTH TWICE DAILY ACTIVE FOR PREVENTION OF BLOOD CLOTS CARBOXYMETHYLCELLULOSE NA 0.5% OPH SOLN INSTILL 1 DROP ACTIVE INTO EACH EYE TWICE DAILY GLUCOSE 4GM CHEW TAB CHEW THREE TO FOUR TABLETS BY MOUTH ACTIVE NEEDED FOR LOW BLOOD SUGAR BELOW 70 GLUCOSE SENSOR FREESTYLE DEVON 2 USE 1 SENSOR DIRECTED ACTIVE EVERY 14 DAYS INSULIN,ASPART(EQV-NOVLG)100UN/ ML FLXPEN INJECT 18 UNITS ACTIVE SUBCUTANEOUSLY EVERY MORNING AND INJECT 7 UNITS AT NOON AND INJECT 11 UNITS EVERY EVENING BEFORE SUPPER INSULIN,GLARGINE-YFGN 100UNIT/ML PEN 3ML INJECT 38 UNITS ACTIVE SUBCUTANEOUSLY AT BEDTIME LIDOCAINE 5% OINT APPLY LIBERAL AMOUNT TOPICALLY TWICE ACTIVE DAILY NEEDED FOR NEUROPATHY PAIN Non-VA AMIODARONE HCL 200MG TAB 200MG BY MOUTH TWICE DAILY ACTIVE Non-VA ASPIRIN 81MG EC TAB 81MG BY MOUTH EVERY DAY ACTIVE Non-VA ATORVASTATIN CALCIUM 20MG TAB 10MG BY MOUTH ACTIVE Non-VA CHOLECALCIF 50MCG (D3-2,000UNIT) TAB 50MCG BY MOUTH ACTIVE ONCE DAILY Non-VA FENOFIBRATE 54MG TAB 108MG BY MOUTH ONCE DAILY ACTIVE Non-VA FERROUS GLUCONATE 324MG TAB 324MG BY MOUTH ONCE ACTIVE discontinued DAILY Non-VA FINASTERIDE 5MG TAB 5MG BY MOUTH ONCE DAILY ACTIVE Non-VA FLUTICAS 500/SALMETEROL 50 INHL DISK 60 1 PUFF BY ACTIVE MOUTH ONCE DAILY Non-VA FUROSEMIDE 40MG TAB 40MG BY MOUTH ONCE DAILY ACTIVE twice daily Non-VA METOPROLOL TARTRATE 25MG TAB 12.5MG BY MOUTH TWICE ACTIVE DAILY Non-VA TERAZOSIN HCL 5MG CAP 5MG BY MOUTH ONCE DAILY ACTIVE SHX: as above ROS: No cough or fever PE: affect pleasant appropriate Speaking easily in full sentences Feet pulses mild decrease sensory to monofilament normal lesions No Medical Decision Making: Diabetes mellitus with chronic kidney disease: Insulin Dose: Glargine 10 units BID and novolog 09/28/14 Dus Carbohydrate targets 45 gm TID Blood sugar targets 130 -150 premeal and 150-200 after Hemoglobin A1c Targets 8 Overweight not really addressed this visit Hypertension lower bp today, relates sbp 120s at home, has cardiology appt today Hyperlipidemia Well controlled Team follow up none at this time. Declines nutrition lab FLP BMP Hgba1c microalb next visit. Insulin orders updated in cprs F/u three mos FTF Medication Reconciliation: Outpatient: Has the patient been taking medications as documented in the EMLR? No: Discrepencies were identified. See below. Essential Medication List for Review used to complete this medication reconciliation. INCLUDED IN THIS LIST: Alphabetical list of active outpatient prescriptions dispensed from this [facility] (local) and dispensed from another VA or DoD facility (remote) as well as [...] whether with a VA or non-VA provider. JLV Link Data on this list may not be complete. Please check JLV. Allergies/ADRs (Tool #5) FACILITY ALLERGY/ADR -------- No Remote Allergy/ADR Data available for this patient [place] [facility] [place] [facility] No Known Allergies Med Recon [facility] (Tool #1) INCLUDED IN THIS LIST: Alphabetical list of active outpatient prescriptions dispensed from this [facility] (local) and dispensed from another [place] or DoD facility (remote) as well as inpatient orders (local pending and active), local clinic medications, locally documented non-VA medications, and local prescriptions that have or been discontinued in the past 90 days. Non-VA Meds Last Documented On: Jun 25, 2023 NOTE The display of VA prescriptions dispensed from another VA or DoD facility (remote) is limited to active outpatient prescription entries matched to National Drug File at the originating site and may not include some items such as investigational drugs, compounds, etc. NOT INCLUDED IN THIS LIST: Medications self-entered by the patient into personal health records (i.e. FANCRU) are NOT included in this list. Non-VA medications documented outside this MA, remote inpatient orders (regardless of status) and remote clinic medications are NOT included in this list. The patient and provider must always discuss medications the patient is taking, regardless of where the medication was dispensed or obtained. Non-VA AMIODARONE HCL 200MG TAB TAKE ONE TABLET BY MOUTH TWICE DAILY OUTPT APIXABAN 5MG TAB (Status = Active) TAKE ONE-HALF TABLET BY MOUTH TWICE DAILY FOR PREVENTION OF BLOOD CLOTS Rx# [id number] Last Released: 01/06/23 Qty/Days Supply: Rx Expiration Date: 12/25/23 Refills Remainin Indication: FOR PREVENTION OF BLOOD CLOTS Non-VA ASPIRIN 81MG EC TAB TAKE ONE TABLET BY MOUTH EVERY DAY Non-VA ATORVASTATIN CALCIUM 20MG TAB TAKE ONE-HALF TABLET BY MOUTH OUTPT CARBOXYMETHYLCELLULOSE NA 0.5% OPH SOLN (Status = Active) INSTILL 1 DROP INTO EACH EYE TWICE DAILY Rx# [id number] Last Released: 04/04/23 Qty/Days Supply: Rx Expiration Date: 01/10/24 Refills Remainin Non-VA CHOLECALCIF 50MCG (D3-2,000UNIT) TAB TAKE ONE TABLET BY MOUTH ONCE DAILY OUTPT EMPAGLIFLOZIN 10MG TAB (Status = Discontinued) TAKE ONE-HALF TABLET BY MOUTH ONCE DAILY Rx# [id number] Last Released: 05/08/23 Qty/Days Supply: Rx Expiration Date: 05/07/24 Refills Remainin Indication: FOR TYPE 2 DIABETES MELLITUS Non-VA FENOFIBRATE 54MG TAB TAKE TWO TABLETS BY MOUTH ONCE DAILY Non-VA FERROUS GLUCONATE 324MG TAB TAKE ONE TABLET BY MOUTH ONCE DAILY Non-VA FINASTERIDE 5MG TAB TAKE ONE TABLET BY MOUTH ONCE DAILY Non-VA FLUTICAS 500/SALMETEROL 50 INHL DISK 60 INHL DISK 60 INHALE 1 PUFF BY MOUTH ONCE DAILY Non-VA FUROSEMIDE 40MG TAB TAKE ONE TABLET BY MOUTH ONCE DAILY OUTPT GLUCOSE 4GM CHEW TAB (Status = Active) CHEW THREE TO FOUR TABLETS BY MOUTH NEEDED FOR LOW BLOOD SUGAR BELOW 70 Rx# [id number] Last Released: 07/25/23 Qty/Days Supply: Rx Expiration Date: 01/10/24 Refills Remainin OUTPT INSULIN,ASPART(EQV-NOVLG)100UN/ ML FLXPEN (Status = Active) INJECT 18 UNITS SUBCUTANEOUSLY EVERY MORNING AND INJECT 7 UNITS AT NOON AND INJECT 11 UNITS EVERY EVENING BEFORE SUPPER Rx# [id number] Last Released: 05/08/23 Qty/Days Supply: Rx Expiration Date: 05/07/24 Refills Remainin Indication: FOR DIABETES OUTPT INSULIN,GLARGINE-YFGN 100UNIT/ML PEN 3ML (Status = Active) INJECT 38 UNITS SUBCUTANEOUSLY AT BEDTIME Rx# [id number] Last Released: 05/08/23 QtyDays Supply: Rx Expiration Date: 05/07/24 Refills Remainin Indication: FOR DIABETES OUTPT LIDOCAINE 5% OINT (Status = Active) APPLY LIBERAL AMOUNT TOPICALLY TWICE DAILY NEEDED FOR NEUROPATHY PAIN Rx# [id number] Last Released: 05/24/23 Qty/ Supply: Rx Expiration Date: 12/17/23 Refills Remainin Indication: NEUROPATHY PAPIN OUTPT LOSARTAN 50MG TAB (Status = Discontinued) TAKE ONE TABLET BY MOUTH ONCE DAILY FOR BLOOD PRESSURE/HEART Rx# [id number] Last Released: 06/06/23 Qty/Days Supply: Rx Expiration Date: 12/25/23 Refills Remainin Indication: FOR HIGH BLOOD PRESSURE Non-VA METOPROLOL TARTRATE 25MG TAB TAKE ONE-HALF TABLET BY MOUTH TWICE DAILY Non-VA TERAZOSIN HCL 5MG CAP TAKE 1 CAPSULE BY MOUTH ONCE DAILY SUPPLIES OUTPT GLUCOSE SENSOR FREESTYLE DEVON 2 (Status = Active) USE 1 SENSOR DIRECTED EVERY 14 DAYS Rx# [id number] Last Released: 07/25/23 Qty/Days Supply: 05/21 Rx Expiration Date: 01/28/24 Refills RemaininSadaf anton/ MIAH BUTTS MD STAFF PHYSICIAN Signed: 08/13/2023 12:40 08/27/2023 ADDENDUM STATUS: COMPLETED Vet with new but stable anemia. FIT test negative. Please schedule f/u with PCP. CBC TREND Collection DT Spec WBC RBC HGB HCT MCV MCH PLT 08/15/2023 08:59 BLOOD 5.70 3.35 L 10.3 L 32.9 L 98.2 30.7 303 08/06/2023 07:31 BLOOD 7.50 3.17 L 9.8 L 31.1 L 98.1 30.9 181 06/19/2022 07:35 BLOOD 5.49 3.87 L 12.1 L 38.1 L 98.4 31.3 149 12/24/2021 09:37 BLOOD 5.58 3.99 L 12.4 L 38.4 L 96.2 31.1 163 06/20/2021 08:13 BLOOD 7.22 3.82 L 11.6 L 36.3 L 95.0 30.4 171 /jus/ JOSH MARKS NP NURSE PRACTITIONER Signed: 08/27/2023 15:00 Receipt Acknowledged By: 08/28/2023 07:47 /jus/ NARA MARTIN ADVANCED TEST WORKER 08/28/2023 ADDENDUM STATUS: COMPLETED AMSA LEFT A VOICEMAIL AND REQUESTED A CALL BACK [phone] EXT [phone]. /jus/ NARA MARTIN ADVANCED TEST WORKER Signed: 08/28/2023 07:48 BUTTS,MIAH NELY [facility] [place] [facility]
--- OUTSIDE RECORDS SUMMARY | 2024-03-26 16:26 | XMS_ITS ---
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 Date/Time Encounter Type Encounter Description Reason Pro vider Source August 06, 2023 09:27 AM Outpatient Encounter ENDOCRINOLOGY MIAH BUTTS Encounter Template Text not used by [place] Plan of Treatment: Future Appointments (+ 6 months) and Future Tests (+/- 45 days) The Plan of Treatment section includes future care activities for the patient [facility] [place] [facility] This section includes future appointments and future [...] 13, 2023 10:00 AM AMBULATORY - MEDICINE [place] [facility] [place] [facility] Sep 04, 2023 11:00 AM AMBULATORY - MEDICINE [place] [facility] [place] [facility] Sep 23, 2023 09:00 AM AMBULATORY - MEDICINE [place] [facility] [place] [facility] Nov 13, 2023 09:30 AM AMBULATORY - MEDICINE [place] [facility] [place] [facility] Dec 31, 2023 02:00 PM AMBULATORY - MEDICINE [place] [facility] [place] [facility] Jan 06, 2024 09:30 AM AMBULATORY - MEDICINE [facility] [place] [facility] Jan 13, 2024 03:00 PM AMBULATORY - MEDICINE [place] [facility] [place] [facility] Jan 19, 2024 08:30 AM [facility] Lab Results: +/- 30 days of [...] Range Comment August 17, 2023 05:30 AM [facility] OCCULT BLOOD FIT X1 SCREEN(IN-HOUSE) Specimen Type: FECES No comment entered. Ordering Provider: MOE MARKS Report Released Date/Time: August 14, 2023 03:34 PM Reporting [facility] [address] [address] Performing Lab: [place] [facility] [place] [facility] [address] [facility] [address] OCCULT BLOOD (FIT)#1 OF 1 Negative NEG August 15, 2023 08:59 AM [facility] [place] [facility] FOLATE (WROX) Specimen Type: SERUM No comment entered. Ordering Provider: MOE MARKS Report Released Date/Time: August 14, 2023 03:34 PM Reporting Lab: [facility] [place] [facility] [address] [facility] [address] Performing Lab: [place] [facility] [place] [facility] [address] [address] FOLATE (WROX) 13.92 ng/mL >5.2 August 15, 2023 08:59 AM [facility] FERRITIN Specimen Type: SERUM No comment entered. Ordering Provider: MOE MARKS Report Released Date/Time: August 14, 2023 03:34 PM Reporting Lab: [place] [facility] [place] [facility] [address] [facility] [address] Performing Lab: [facility] [place] [address] [address] FERRITIN 108 ng/mL 20-300 August 15, 2023 08:59 AM [facility] VITAMIN B12 Specimen Type: SERUM No comment entered. Ordering Provider: MOE MARKS Report Released Date/Time: August 14, 2023 03:34 PM Reporting Lab: [facility] [place] [facility] [address] [facility] [address] Performing Lab: [facility] [address] [address] VITAMIN B12 284 pg/mL 200-900 August 15, 2023 08:59 AM [facility] IRON & TIBC PANEL Specimen Type: SERUM No comment entered. Ordering Provider: MOE MARKS Report Released Date/Time: August 14, 2023 03:34 PM Reporting Lab: [facility] [place] [facility] [address] [facility] [address] Performing Lab: [facility] [address] [facility] [address] TIBC 380 ug/dL 204-475 IRON 71 ug/dL 40-160 Transferrin Saturation 18.7 L 20.0-50.0 August 15, 2023 08:59 AM [facility] CBC AND DIFF (AUTO) Specimen Type: BLOOD No comment entered. Ordering Provider: MOE MARKS Report Released Date/Time: August 14, 2023 03:34 PM Reporting Lab: [facility] [address] [facility] [address] Performing Lab: [facility] [address] [facility] [address] WBC 5.70 10*3/uL 4.50-11.00 RBC 3.35 10*6/uL L 4.23-5.66 HGB 10.3 g/dL L 12.8-17 HCT 32.9 L 39.2-50.4 MCV 98.2 fL 82-99 MCHC 31.3 g/dL 30.8-35.1 PLT 303 10*3/uL 140-360 RDW-CV 14.2 12.0-16.0 [place], Abs 0.63 10*3/uL 0.30-1.10 MCH 30.7 pg 26.2-32.6 Neut % 73.0 43.7-75.8 Lymph % 14.2 14.0-42.3 [place] % 11.1 5.1-13.7 Eos % 0.4 0.4-6.8 Baso % 0.4 0.1-2.0 Neut, Abs 4.17 10*3/uL 2.20-7.60 Lymph, Abs 0.81 10*3/uL L 1.00-3.20 Eos, Abs 0.02 10*3/uL L 0.03-0.44 Baso, Abs 0.02 10*3/uL 0.01-0.13 Immature Gran % 0.9 H 0.0-0.7 Immature Gran, Abs 0.05 10*3/uL 0.00-0.06 August 06, 2023 07:31 AM [facility] LIVER FUNCTION Specimen Type: SERUM No comment entered. Ordering Provider: GEORGINA ARITA Report Released Date/Time: Jun 06, 2023 11:30 AM Reporting Lab: [address] [address] Performing Lab: [address] [address] PROTEIN,TOTAL 6.4 g/dL 6.0-8.3 ALBUMIN 3.0 g/dL L 3.5-5.0 ALKALINE PHOSPHATASE 61 U/L 40-150 AST 22 U/L 5-34 ALT 24 U/L BILIRUBIN, TOTAL 0.7 mg/dL 0.2-1.2 August 06, 2023 07:31 AM [facility] CBC AND DIFF (AUTO) Specimen Type: BLOOD No comment entered. Ordering Provider: GEORGINA ARITA Report Released Date/Time: Jun 06, 2023 11:30 AM Reporting Lab: [address] [address] Performing Lab: [address] [address] WBC 7.50 10*3/uL 4.50-11.00 RBC 3.17 10*6/uL L 4.23-5.66 HGB 9.8 g/dL L 12.8-17 HCT 31.1 L 39.2-50.4 MCV 98.1 fL 82-99 MCHC 31.5 g/dL 30.8-35.1 PLT 181 10*3/uL 140-360 RDW-CV 14.2 12.0-16.0 [place], Abs 0.70 10*3/uL 0.30-1.10 MCH 30.9 pg 26.2-32.6 Neut % 79.2 H 43.7-75.8 Lymph % 10.1 L 14.0-42.3 [place] % 9.3 5.1-13.7 Eos % 0.3 L 0.4-6.8 Baso % 0.4 0.1-2.0 Neut, Abs 5.94 10*3/uL 2.20-7.60 Lymph, Abs 0.76 10*3/uL L 1.00-3.20 Eos, Abs 0.02 10*3/uL L 0.03-0.44 Baso, Abs 0.03 10*3/uL 0.01-0.13 Immature Gran % 0.7 0.0-0.7 Immature Gran, Abs 0.05 10*3/uL 0.00-0.06 August 06, 2023 07:31 AM [facility] BASIC METABOLIC PANEL (non-fasting) Specimen Type: SERUM No comment entered. Ordering Provider: MIAH BUTTS Report Released Date/Time: May 07, 2023 02:07 PM Reporting Lab: [address] [phone] Performing Lab: [address] [address] UREA NITROGEN 31 mg/dL H 7-25 GLUCOSE 230 mg/dL H 65-100 SODIUM 136 mmol/L 135-145 POTASSIUM 4.2 mmol/L 3.5-5.0 CHLORIDE 103 mmol/L 100-110 CO2 21 meq/L 20-30 CREATININE, Serum 1.67 mg/dL H 0.50-1.40 eGFR(CKD-EPI 2020) 41 mL/min L >60 August 06, 2023 07:31 AM [facility] HEMOGLOBIN A1C PANEL Specimen Type: BLOOD Comment: [...] May 07, 2023 02:07 PM Reporting Lab: [address] [address] Performing Lab: [address] [address] HEMOGLOBIN A1C 7.7 H 4.0-5.6 Social History: Smoking Status (Most current) and [...] took place. Date/Time Current Smoking Status Comment Robby it Dec 24, 2022 10:30 AM VA-TOBACCO FORMER USER [place] [facility] [place] [facility] Tobacco Use History This section includes a history of the smoking, or tobacco-related health factors, that were collected on or before the date of the Encounter. The data comes from the [place] facility where the Encounter took place. Date/Time Smoking Status/Tobac co Use Comment Facility Dec 24, 2022 10:30 AM VA-TOBACCO QUIT 15 YRS OR MORE [place] [facility] [place] [facility] Dec 24, 2021 10:00 AM VA-TOBACCO FORMER USER [facility] [place] [facility] Dec 24, 2021 10:00 AM VA-TOBACCO QUIT 5 TO < 15 YRS [facility] [place] [facility] Dec 14, 2020 08:30 AM VA-TOBACCO FORMER USER [facility] [place] [facility] Dec 14, 2020 08:30 AM VA-TOBACCO QUIT 5 TO < 15 YRS [facility] [place] [facility] Nov 15, 2019 11:00 AM VA-TOBACCO FORMER USER [facility] [place] [facility] Nov 15, 2019 11:00 AM VA-TOBACCO QUIT 5 TO < 15 YRS [place] [facility] [place] [facility] Oct 20, 2017 08:19 AM VA-TOBACCO FORMER USER [facility] [place] [facility] Oct 20, 2017 08:19 AM VA-TOBACCO QUIT 5 TO < 15 YRS [facility] [place] [facility] Sep 04, 2017 11:09 AM QUIT TOBACCO USE > 7 YEARS AGO [facility] [place] [facility] Oct 16, 2016 09:08 AM QUIT TOBACCO USE > 7 YEARS AGO [facility] [place] [facility] Feb 20, 2015 10:58 AM QUIT TOBACCO USE > 7 YEARS AGO quit 2009-cigarettes and cigars for 45 years [place] [facility] [place] [facility] Advance Directives: All historical and current [...] Mar 23, 2014 ADVANCE DIRECTIVE ROSALINDA SHELBY [facility] Encounter Notes: All associated encounter notes This section contains the clinical notes associated to the Encounter. Date/Time Encounter Note(s) Provider Source August 06, 2023 09:27 AM ENDOCRINOLOGY SECU RE MESSAGING: LOCAL TITLE: ENDOCRINOLOGY SECURE MESSAGING STANDARD TITLE: ENDOCRINOLOGY SECURE MESSAGING DATE OF NOTE: AUGUST 06, 2023@09:27 ENTRY DATE: AUGUST 06, 2023@10:27:24 AUTHOR: MIAH BUTTS EXP COSIGNER: URGENCY: STATUS: COMPLETED ------Original Message ----- Sent: 08/06/2023 10:27 AM ET From: MIAH BUTTS To: TONY CASTELLON Subject: General:General Inquiry Good morning! Your kidney function slows a little decline over time, but is not surprising for age. HGB-A1c 7.7 /es/ MIAH BUTTS MD STAFF PHYSICIAN Signed: 08/06/2023 10:27 [facility]
--- OUTSIDE RECORDS SUMMARY | 2024-03-26 16:26 | XMS_ITS | Encounter Summary ---
Author Name [facility] [place] [facility] [place] Address [address] [place] [address] Care Team Providers Care Plumber Apprentice Name Role Phone AJAY APODACA Primary Care [...] PART A Nov 22, 2006 PART A [id number] TONY CASTELLON PATIENT MEDICARE (WNR) MEDICARE (M) PART B Nov 22, 2006 PART B [id number] TONY CASTELLON PATIENT MEDICARE (WNR) MEDICARE (M) PART B Nov 22, 2006 PART B [id number] TONY CASTELLON PATIENT MEDICARE (WNR) MEDICARE (M) PART A Nov 22, 2006 PART A [id number] TONY CASTELLON PATIENT FOR LIFE TFL* Apr 20, 2014 [id number] SUKHJINDER CASTELLON JR PATIENT Selected Encounter This section includes the information on record at [place] for the Encounter. Date/Time Encounter Type Encounter Description Reason Provider Source Jul 21, 2023 09:47 AM QNHP OL DIG ASSMT&MGMT 5-10 CLINICAL PHARMACY ICD-10-CM Z04.89 Encounter for examination and observation for oth reasons SABAS ZAMUDIO IHE Encounter Template Text not used by [place] Assessments - Encounter Diagnoses This section includes the primary and secondary diagnoses documented for the Encounter. Date/Time Primary/Secondary Diagnosis Diagnosis Name Provider Source Jul 21, 2023 10:04 AM PRIMARY Encounter for examination and observation for oth reasons SABAS ZAMUDIO [facility] Plan of Treatment: Future Appointments (+ 6 months) and Future Tests (+/- 45 days) The Plan of Treatment section includes future care activities for the [facility] [place] [facility] This section includes future appointments and future orders which are active, pending or scheduled. Future Appointments This section includes appointments that were scheduled to occur 6 months from the date of the Encounter, up to a maximum of 20 appointments. The data comes from all [place] treatment facilities. Appointment Date/Time Appointment Type Appointme nt Facility Name August 13, 2023 10:00 AM AMBULATORY - MEDICINE [place] [facility] [place] [facility] Sep 04, 2023 11:00 AM AMBULATORY - MEDICINE [place] [facility] [place] [facility] Sep 23, 2023 09:00 AM AMBULATORY - MEDICINE [place] [facility] [place] [facility] Nov 13, 2023 09:30 AM AMBULATORY - MEDICINE [place] [facility] [place] [facility] Dec 31, 2023 02:00 PM AMBULATORY - MEDICINE [place] [facility] [place] [facility] Jan 06, 2024 09:30 AM AMBULATORY - MEDICINE [place] [facility] [place] [facility] Jan 13, 2024 03:00 PM AMBULATORY - MEDICINE [place] [facility] [place] [facility] Jan 19, 2024 08:30 AM AMBULATORY - REHAB MEDICIN E [place] [facility] [place] [facility] Lab Results: +/- 30 days of the encounter This section includes the Chemistry and Hematology Lab Results on record with [place] for the patient. Radiology Reports and Pathology Reports are provided separately, in subsequent sections. Lab Results This section contains the Chemistry/Hematology Results that were resulted 30 days before or 30 daysafter the date of the Encounter. Date/Time Source Result Type Result - Unit Interpretation Reference Range Comment August 17, 2023 05:30 [facility] OCCULT BLOOD FIT X1 SCREEN(IN-HOUSE) Specimen Type: FECES No comment entered. Ordering Provider: MOE MARKS Report Released Date/Time: August 14, 2023 03:34 PM Reporting Lab: [facility] [place] [facility] [address] [facility] [address] Performing Lab: [facility] [address] [facility] [address] OCCULT BLOOD (FIT)#1 OF 1 Negative NEG August 15, 2023 08:59 AM [facility] FOLATE (WROX) Specimen Type: SERUM No comment entered. Ordering Provider: MOE MARKS Report Released Date/Time: August 14, 2023 03:34 PM Reporting Lab: [facility] [address] [facility] [address] Performing Lab: [facility] [address] [facility] [address] FOLATE (WROX) 13.92 ng/mL >5.2 August 15, 2023 08:59 AM [facility] FERRITIN Specimen Type: SERUM No comment entered. Ordering Provider: MOE MARKS Report Released Date/Time: August 14, 2023 03:34 PM Reporting Lab: [facility] [place] [facility] [address] [address] Performing Lab: [facility] [address] [address] FERRITIN 108 ng/mL 20-300 August 15, 2023 08:59 AM [facility] VITAMIN B12 Specimen Type: SERUM No comment entered. Ordering Provider: MOE MARKS Report Released Date/Time: August 14, 2023 03:34 PM Reporting Lab: [facility] [address] [facility] [address] Performing Lab: [facility] [address] [facility] [address] VITAMIN B12 284 pg/mL 200-900 August 15, 2023 08:59 AM [facility] IRON & TIBC PANEL Specimen Type: SERUM No comment entered. Ordering Provider: MOE MARKS Report Released Date/Time: August 14, 2023 03:34 PM Reporting Lab: [address] [address] Performing Lab: [address] [address] TIBC 380 ug/dL 204-475 IRON 71 ug/dL 40-160 Transferrin Saturation 18.7 L 20.0-50.0 August 15, 2023 08:59 AM [facility] CBC AND DIFF (AUTO) Specimen Type: BLOOD No comment entered. Ordering Provider: MOE MARKS Report Released Date/Time: August 14, 2023 03:34 PM Reporting Lab: [address] [address] Performing Lab: [address] [address] WBC 5.70 10*3/uL 4.50-11.00 RBC 3.35 10*6/uL L 4.23-5.66 HGB 10.3 g/dL L 12.8-17 HCT 32.9 L 39.2-50.4 MCV 98.2 fL 82-99 MCHC 31.3 g/dL 30.8-35.1 PLT 303 10*3/uL 140-360 RDW-CV 14.2 12.0-16.0 [place], Abs 0.63 10*3/uL 0.30-1.10 MCH 30.7 pg 26.2-32.6 Neut % 73.0 43.7-75.8 Lymph % 14.2 14.0-42.3 [place] % 11.1 5.1-13.7 Eos % 0.4 0.4-6.8 Baso % 0.4 0.1-2.0 Neut, Abs 4.17 10*3/uL 2.20-7.60 Lymph, Abs 0.81 10*3/uL L 1.00-3.20 Eos, Abs 0.02 10*3/uL L 0.03-0.44 Baso, Abs 0.02 10*3/uL 0.01-0.13 Immature Gran % 0.9 H 0.0-0.7 Immature Gran, Abs 0.05 10*3/uL 0.00-0.06 August 06, 2023 07:31 AM [facility] LIVER FUNCTION Specimen Type: SERUM No comment entered. Ordering Provider: GEORGINA ARITA Report Released Date/Time: Jun 06, 2023 11:30 AM Reporting Lab: [address] [address] Performing Lab: [address] [address] PROTEIN,TOTAL 6.4 g/dL 6.0-8.3 ALBUMIN 3.0 g/dL L 3.5-5.0 ALKALINE PHOSPHATASE 61 U/L 40-150 AST 22 U/L 5-34 ALT 24 U/L BILIRUBIN, TOTAL 0.7 mg/dL 0.2-1.2 August 06, 2023 07:31 AM [facility] CBC AND DIFF (AUTO) Specimen Type: BLOOD No comment entered. Ordering Provider: GEORGINA ARITA Report Released Date/Time: Jun 06, 2023 11:30 AM Reporting Lab: [address] [address] Performing Lab: [address] [address] WBC 7.50 10*3/uL 4.50-11.00 RBC 3.17 10*6/uL L 4.23-5.66 HGB 9.8 g/dL L 12.8-17 HCT 31.1 L 39.2-50.4 MCV 98.1 fL 82-99 MCHC 31.5 g/dL 30.8-35.1 PLT 181 10*3/uL 140-360 RDW-CV 14.2 12.0-16.0 [place], Abs 0.70 10*3/uL 0.30-1.10 MCH 30.9 pg 26.2-32.6 Neut % 79.2 H 43.7-75.8 Lymph % 10.1 L 14.0-42.3 [place] % 9.3 5.1-13.7 Eos % 0.3 L 0.4-6.8 Baso % 0.4 0.1-2.0 Neut, Abs 5.94 10*3/uL 2.20-7.60 Lymph, Abs 0.76 10*3/uL L 1.00-3.20 Eos, Abs 0.02 10*3/uL L 0.03-0.44 Baso, Abs 0.03 10*3/uL 0.01-0.13 Immature Gran % 0.7 0.0-0.7 Immature Gran, Abs 0.05 10*3/uL 0.00-0.06 August 06, 2023 07:31 AM [facility] HEMOGLOBIN A1C PANEL Specimen Type: BLOOD [...] May 07, 2023 02:07 PM Reporting Lab: [address] [address] Performing Lab: [address] [address] HEMOGLOBIN A1C 7.7 H 4.0-5.6 August 06, 2023 07:31 AM [facility] BASIC METABOLIC PANEL (non-fasting) Specimen Type: SERUM No comment entered. Ordering Provider: MIAH BUTTS Report Released Date/Time: May 07, 2023 02:07 PM Reporting Lab: [address] [address] Performing Lab: [address] [address] UREA NITROGEN 31 mg/dL H 7-25 GLUCOSE [...] and tobacco- related health factors from the [place] facility where the Encounter took place. Current Smoking Status This section includes the most current smoking, or tobacco-related health factor, from the [place] facility where the Encounter took place. Date/Time Current Smoking Status Comment [facility] Dec 24, 2022 10:30 AM VA-TOBACCO FORMER USER [place] [facility] [place] [facility] Tobacco Use History This section includes a history of the smoking, or tobacco-related health factors, that were collected on or before the date of the Encounter. The data comes from the [place] facility where the Encounter took place. Date/Time Smoking Status/Tobac co Use Comment Facility Dec 24, 2022 10:30 AM VA-TOBACCO QUIT 15 YRS OR MORE [facility] [place] [facility] Dec 24, 2021 10:00 AM VA-TOBACCO FORMER USER [facility] [place] [facility] Dec 24, 2021 10:00 AM VA-TOBACCO QUIT 5 TO < 15 YRS [facility] [place] [facility] Dec 14, 2020 08:30 AM VA-TOBACCO FORMER USER [facility] [place] [facility] Dec 14, 2020 08:30 AM VA-TOBACCO QUIT 5 TO < 15 YRS [facility] [place] [facility] Nov 15, 2019 11:00 AM VA-TOBACCO FORMER USER [facility] [place] [facility] Nov 15, 2019 11:00 AM VA-TOBACCO QUIT 5 TO < 15 YRS [facility] [place] [facility] Oct 20, 2017 08:19 AM VA-TOBACCO FORMER USER [facility] [place] [facility] Oct 20, 2017 08:19 AM VA-TOBACCO QUIT 5 TO < 15 YRS [facility] [place] [facility] Sep 04, 2017 11:09 AM QUIT TOBACCO USE > 7 YEARS AGO [facility] Oct 16, 2016 09:08 AM QUIT TOBACCO USE > 7 YEARS AGO [facility] Feb 20, 2015 10:58 AM QUIT TOBACCO USE > 7 YEARS AGO quit 2009-cigarettes and cigars for 45 years [facility] Advance Directives: All historical and current Section Date Range: From patient's date of to the date document was created. This section includes ALL of a patient's completed or amended [place] Advance and Rescinded Directives. The entries below indicate that a directive exists for the patient, but an actual copy is not included with this document. The data comes from all [place] facilities. Date Advance Directives Provider Source Mar 23, 2014 ADVANCE DIRECTIVE ROSALINDA SHELBY [facility] Encounter Notes: All associated encounter notes This section contains the clinical notes associated to the Encounter. Date/Time Encounter Note(s) Provider Source Jul 21, 2023 09:47 AM PHARMACY MEDICATIO N MGT NOTE: LOCAL TITLE: PHARMACY ANTICOAGULATION NOTE STANDARD TITLE: PHARMACY MEDICATION MGT NOTE DATE OF NOTE: JUL 21, 2023@09:47 ENTRY DATE: JUL 21, 2023@09:48:08 AUTHOR: ANGELES JUNIOR COSIGNER: URGENCY: STATUS: COMPLETED PHARMACY ANTICOAGULATION NOTE Has ADDENDA ANTICOAGULATION DOAC MONITORING NOTE SUBJECTIVE: Patient identified through the DOAC population Management Tool based on the following criteria: [ ] Dosing Issue [ ] Critical Drug Interaction [ ] Cancer Treatment [ ] Active NSAID [ X ] Labs Overdue [ ] Prosthetic Valve Replacement [ ] Notable Lab Value [ ] Overdue for Refill [ ] Other: Comments: CBC and Serum creatinine recommended every 12 months for this patient on DOAC therapy OBJECTIVE: Indication for anticoagulation: [ X ] [...] mL/min CRCL ADJ: 36.1 mL/min (05/05/23) ASSESSMENT: overdue labs Action required? [ X ] Yes [ ] No Comments: found results in [facility] from [facility] These results were verified by reviewing a copy of the outside laboratory report. Patient reports outside Hgb results: Date: April 09, 2023 Results: 13 Location: Outside Healthcare Provider Patient reports outside HCT results: Date: April 09, 2023 Results: 38.4 Location: Outside Healthcare Provider Patient reports outside PLT results: Date: April 09, 2023 Results: 161 Location: Outside Healthcare Provider Patient reports outside SCR results: Date: April 09, 2023 Results: 1.27 Location: Outside Healthcare Provider Patient reports outside BUN results: Date: April 09, 2023 Results: 20 Location: Outside Healthcare Provider PLAN: [ X ] No action required, dismiss flag [ ] Will intervene: [ ] Patient education via phone/letter [ ] Schedule phone/[id number] follow up [ ] Lab ordered [ ] Discontinue interacting medication [ ] Discontinue DOAC [ ] Change to alternative DOAC [ ] Change DOAC dose [ ] Notify PCP [ ] Consult cardiology/hematology [ ] Other: Time spent: 10 min /tyree JUNIOR [employer] Signed: 07/21/2023 09:54 Receipt Acknowledged By: 07/21/2023 10:04 desean/ Sangeeta Zamudio PharmD, [facility] Clinical Rn Integrated 07/21/2023 ADDENDUM STATUS: COMPLETED Above case reviewed as entered by [facility] [employer]. Agree with current assessment and plan of care for this patient's anticoagulation management as noted. /jus/ Sangeeta Zamudio PharmD, [facility] Clinical Rn Integrated Signed: 07/21/2023 10:04 ANGELES JUNIOR [facility] [place] [facility]
--- OUTSIDE RECORDS SUMMARY | 2024-03-26 16:26 | XMS_ITS | Encounter Summary ---
Author Name [facility] [place] Address [address] [place] [id number] Care Team Providers Care Research Interviewer Name Role Phone AJAY APODACA Primary Care [...] PART A Nov 22, 2006 PART A [id number] TONY LOGAN PATIENT MEDICARE (WNR) MEDICARE (M) PART B Nov 22, 2006 PART B [id number] TONY LOGAN PATIENT MEDICARE (WNR) MEDICARE (M) PART A Nov 22, 2006 PART A [id number] TONY LOGAN PATIENT MEDICARE (WNR) MEDICARE (M) PART B Nov 22, 2006 PART B [id number] TONY LOGAN PATIENT FOR LIFE TFL* Apr 20, 2014 [id number] SUKHJINDER LOGAN JR PATIENT Selected Encounter This section includes the information on record at [place] for the Encounter. Date/Time Encounter Type Encounter Description Reason Provider Source August 13, 2023 12:41 PM CONT GLUC MNTR ANALYSIS I&R ENDOCRINOLOGY ICD-10-CM E11.8 Type 2 diabetes mellitus with unspecified complications MIAH BUTTS [facility] Encounter Template Text not used by [place] Assessments - Encounter Diagnoses This section includes the primary and secondary diagnoses documented for the Encounter. Date/Time Primary/Secondary Diagnosis Diagnosis Name Provider Source August 13, 2023 03:14 PM PRIMARY Type 2 diabetes mellitus with unspecified complications MIAH BUTTS [facility] Plan of Treatment: Future Appointments (+ 6 months) and Future Tests (+/- 45 days) The Plan of Treatment section includes future care activities for the patient from all [place] [facility]. This section includes future appointments and future orders which are active, pending or scheduled. Future Appointments This section includes appointments that were scheduled to occur 6 months from the date of the Encounter, up to a maximum of 20 appointments. The data comes from all [place] treatment facilities. Appointment Date/Time Appointment Type Appointme nt Facility Name Sep 04, 2023 11:00 AM [place]IC[place] [facility] [place] [facility] Sep 23, 2023 09:00 AM [place] [facility] [place] [facility] Nov 13, 2023 09:30 AM [place] [facility] [place] [facility] Dec 31, 2023 02:00 PM [place] [facility] [place] [facility] Jan 06, 2024 09:30 AM [place] [facility] [place] [facility] Jan 13, 2024 03:00 PM [place] [facility] [place] [facility] Jan 19, 2024 08:30 AM AMBULATORY - [place]HAB MEDICIN [place] [facility] [place] [facility] Lab Results: +/- 30 days of the encounter This section includes the Chemistry and Hematology Lab Results on record with [place] for the patient. Radiology Reports and Pathology Reports are provided separately, in subsequent sections. Lab Results This section contains the Chemistry/Hematology Results that were resulted 30 days before or 30 daysafter the date of the Encounter. Date/Time Source Result Type Result - Unit Interpretation Reference Range Comment August 17, 2023 05:30 AM [facility] OCCULT BLOOD FIT X1 SCREEN(IN-HOUSE) Specimen Type: FECES No comment entered. Ordering Provider: MOE MARKS Report Released Date/Time: August 14, 2023 03:34 PM Reporting Lab: [facility] [address] [address] Performing Lab: [facility] [address] [address] OCCULT BLOOD (FIT)#1 OF 1 Negative NEG August 15, 2023 08:59 AM [facility] FOLATE (WROX) Specimen Type: SERUM No comment entered. Ordering Provider: MOE MARKS Report Released Date/Time: August 14, 2023 03:34 PM Reporting Lab: [facility] [address] [address] Performing Lab: [facility]THN [facility]ITAL[facility] [address] [facility] [address] FOLATE (WROX) 13.92 ng/mL >5.2 August 15, 2023 08:59 AM [facility] FERRITIN Specimen Type: SERUM No comment entered. Ordering Provider: MOE MARKS Report Released Date/Time: August 14, 2023 03:34 PM Reporting Lab: [facility]N [facility]ITAL[facility] [address] [address] Performing Lab: [facility]THN [facility]ITAL[facility] [address] [address] FERRITIN 108 ng/mL 20-300 August 15, 2023 08:59 AM [facility] VITAMIN B12 Specimen Type: SERUM No comment entered. Ordering Provider: MOE MARKS Report Released Date/Time: August 14, 2023 03:34 PM Reporting Lab: [facility]ITALTRN [facility]ITAL[facility] [address] [address] Performing Lab: [facility]THN [facility]ITALUS[facility] [address] [address] VITAMIN B12 284 pg/mL 200-900 August 15, 2023 08:59 AM [facility]RL [facility] IRON & TIBC PANEL Specimen Type: SERUM No comment entered. Ordering Provider: MOE MARKS Report Released Date/Time: August 14, 2023 03:34 PM Reporting Lab: [address] [address] Performing Lab: [address] [address] TIBC 380 ug/dL 204-475 IRON 71 ug/dL 40-160 Transferrin Saturation 18.7 L 20.0-50.0 August 15, 2023 08:59 AM [facility] CBC AND DIFF (AUTO) Specimen Type: BLOOD No comment entered. Ordering Provider: MOE MARKS Report Released Date/Time: August 14, 2023 03:34 PM Reporting Lab: [address] [address] Performing Lab: [address] [address] WBC 5.70 10*3/uL 4.50-11.00 RBC 3.35 10*6/uL L 4.23-5.66 HGB 10.3 g/dL L 12.8-17 HCT 32.9 L 39.2-50.4 MCV 98.2 fL 82-99 MCHC 31.3 g/dL 30.8-35.1 PLT 303 10*3/uL 140-360 RDW-CV 14.2 12.0-16.0 [place], Abs 0.63 10*3/uL 0.30-1.10 MCH 30.7 pg 26.2-32.6 Neut % 73.0 43.7-75.8 Lymph % 14.2 14.0-42.3 [place] % 11.1 5.1-13.7 Eos % 0.4 0.4-6.8 Baso % 0.4 0.1-2.0 Neut, Abs 4.17 10*3/uL 2.20-7.60 Lymph, Abs 0.81 10*3/uL L 1.00-3.20 Eos, Abs 0.02 10*3/uL L 0.03-0.44 Baso, Abs 0.02 10*3/uL 0.01-0.13 Immature Gran % 0.9 H 0.0-0.7 Immature Gran, Abs 0.05 10*3/uL 0.00-0.06 August 06, 2023 07:31 AM [facility] LIVER FUNCTION Specimen Type: SERUM No comment entered. Ordering Provider: GEORGINA ARITA Report Released Date/Time: Jun 06, 2023 11:30 AM Reporting Lab: [address] [address] Performing Lab: [address] [address] PROTEIN,TOTAL 6.4 g/dL 6.0-8.3 ALBUMIN 3.0 g/dL L 3.5-5.0 ALKALINE PHOSPHATASE 61 U/L 40-150 AST 22 U/L 5-34 ALT 24 U/L BILIRUBIN, TOTAL 0.7 mg/dL 0.2-1.2 August 06, 2023 07:31 AM [facility] CBC AND DIFF (AUTO) Specimen Type: BLOOD No comment entered. Ordering Provider: GEORGINA ARITA Report Released Date/Time: Jun 06, 2023 11:30 AM Reporting Lab: [address] [address] Performing Lab: [address] [address] WBC 7.50 10*3/uL 4.50-11.00 RBC 3.17 10*6/uL L 4.23-5.66 HGB 9.8 g/dL L 12.8-17 HCT 31.1 L 39.2-50.4 MCV 98.1 fL 82-99 MCHC 31.5 g/dL 30.8-35.1 PLT 181 10*3/uL 140-360 RDW-CV 14.2 12.0-16.0 [place], Abs 0.70 10*3/uL 0.30-1.10 MCH 30.9 pg 26.2-32.6 Neut % 79.2 H 43.7-75.8 Lymph % 10.1 L 14.0-42.3 [place] % 9.3 5.1-13.7 Eos % 0.3 L 0.4-6.8 Baso % 0.4 0.1-2.0 Neut, Abs 5.94 10*3/uL 2.20-7.60 Lymph, Abs 0.76 10*3/uL L 1.00-3.20 Eos, Abs 0.02 10*3/uL L 0.03-0.44 Baso, Abs 0.03 10*3/uL 0.01-0.13 Immature Gran % 0.7 0.0-0.7 Immature Gran, Abs 0.05 10*3/uL 0.00-0.06 August 06, 2023 07:31 AM [facility] BASIC METABOLIC PANEL (non-fasting) Specimen Type: SERUM No comment entered. Ordering Provider: MIAH BUTTS Report Released Date/Time: May 07, 2023 02:07 PM Reporting Lab: [address] [address] Performing Lab: [address] [address] UREA NITROGEN 31 mg/dL H 7-25 GLUCOSE 230 mg/dL H 65-100 SODIUM 136 mmol/L 135-145 POTASSIUM 4.2 mmol/L 3.5-5.0 CHLORIDE 103 mmol/L 100-110 CO2 21 meq/L 20-30 CREATININE, Serum 1.67 mg/dL H 0.50-1.40 eGFR(CKD-EPI 2020) 41 mL/min L >60 August 06, 2023 07:31 AM [facility] HEMOGLOBIN A1C PANEL [...] May 07, 2023 02:07 PM Reporting Lab: [address] [address] Performing Lab: [facility] [place] [facility] [address] [address] HEMOGLOBIN A1C 7.7 H 4.0-5.6 Vital Signs: All taken on the encounter date This section contains inpatient and outpatient Vital Signs collected on the date of the Encounter. Date/Time Temperature Pulse Blood Pressure Respiratory Rate SP02 Pain Height Weight Body Mass Index Source August 13, 2023 10:05 AM 112/52 [place] [facility] [place] [place] [facility] August 13, 2023 10:04 AM 97.2 69 95/51 18 93 0 176.2 28 [facility] [place] [facility] Social History: Smoking Status (Most current) and Tobacco Use (All prior to encounter date) This section includes the most current, and the historical, smoking and tobacco- related health factors from the [place] facility where the Encounter took place. Current Smoking Status This section includes the most current smoking, or tobacco-related health factor, from the [place] facility where the Encounter took place. Date/Time Current Smoking Status Comment [facility] Dec 24, 2022 10:30 AM VA-TOBACCO FORMER USER [place] [facility] [place] [facility] Tobacco Use History This section includes a history of the smoking, or tobacco-related health factors, that were collected on or before the date of the Encounter. The data comes from the [place] facility where the Encounter took place. Date/Time Smoking Status/Tobac co Use Comment Facility Dec 24, 2022 10:30 AM VA-TOBACCO QUIT 15 YRS OR MORE [facility] [place] [facility] Dec 24, 2021 10:00 AM VA-TOBACCO FORMER USER [facility] [place] [facility] Dec 24, 2021 10:00 AM VA-TOBACCO QUIT 5 TO < 15 YRS [facility] [place] [facility] Dec 14, 2020 08:30 AM VA-TOBACCO FORMER USER [facility] [place] [facility] Dec 14, 2020 08:30 AM VA-TOBACCO QUIT 5 TO < 15 YRS [facility] [place] [facility] Nov 15, 2019 11:00 AM VA-TOBACCO FORMER USER [facility] [place] [facility] Nov 15, 2019 11:00 AM VA-TOBACCO QUIT 5 TO < 15 YRS [facility] Oct 20, 2017 08:19 AM [place]-[facility] [facility] Oct 20, 2017 08:19 AM VA-TOBACCO QUIT 5 TO < 15 YRS [facility] Sep 04, 2017 11:09 AM QUIT TOBACCO USE > 7 YEARS AGO [facility] Oct 16, 2016 09:08 AM QUIT [...] ALL of a patient's completed or amended [place] Advance and Rescinded Directives. The entries below indicate that a directive exists for the patient, but an actual copy is not included with this document. The data comes from all [place] facilities. Date Advance Directives Provider Source Mar 23, 2014 ADVANCE DIRECTIVE ROSALINDA SHELBY [facility] Encounter Notes: All associated encounter notes This section contains the clinical notes associated to the Encounter. Date/Time Encounter Note(s) Provider Source August 13, 2023 12:41 PM PHYSICIAN NOTE: LOCAL TITLE: MD NOTE STANDARD TITLE: PHYSICIAN NOTE DATE OF NOTE: AUGUST 13, 2023@12:41 ENTRY DATE: AUGUST 13, 2023@12:41:13 AUTHOR: IMAH BUTTS COSIGNER: URGENCY: STATUS: COMPLETED Dx: Diabetes Mellitus type 2 Pt Name: Tony Logan Pt : 1940 MR# [id number] Indication for device placement Date placed: Jul 30 2023 Date removed (date to which the CPT code is linked): Aug 12 2023 Name of device placed: Freestyle josias 2 glucose sensor date of printout of data: Date of interpretation: Aug 13 2023 Analysis of data (72 hours or more of monitoring required): Capture 94% Average 204 GMI 8.2% %CV 37.3% Very High 25% High 30% In Range 45% Low/Very Low 0% MN 261, 4AM 182, 8AM 189, noon 152, 4PM 160, 8PM 283 Variability high Interpretation of data He would benefit from improved CHO consistency. He would also benefit from a decrease in basal insulin and bfast bolus insulin, an increase in lunch bolus insulin, and an increase in dinner bolus insulin. /jus/ MIAH BUTTS MD STAFF PHYSICIAN Signed: 08/13/2023 15:14 MIAH BUTTS [facility] [place] [facility]
--- OUTSIDE RECORDS SUMMARY | 2024-03-26 16:26 | XMS_ITS ---
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 Date/Time Encounter Type Encounter Description Reason Pro vider Source August 21, 2023 06:33 AM Outpatient Encounter ENDOCRINOLOGY MIAH BUTTS Encounter Template Text not used by CT Plan of Treatment: Future Appointments (+ 6 months) and Future Tests (+/- 45 days) The Plan of Treatment section includes future care activities for the patient from [facility] This section includes future appointments and future orders which are active, pending or scheduled. Future Appointments This section includes appointments that were scheduled to occur 6 months from the date of the Encounter, up to a maximum of 20 appointments. The data comes from all CT treatment facilities. Appointment Date/Time Appointment Type Appointme nt Facility Name Sep 04, 2023 11:00 AM AMBULATORY - MEDICINE [facility] [place] [facility] Sep 23, 2023 09:00 AM AMBULATORY - MEDICINE [facility] [place] [facility] Nov 13, 2023 09:30 AM AMBULATORY - MEDICINE [facility] [place] [facility] Dec 31, 2023 02:00 PM AMBULATORY - MEDICINE CT [facility] [place] [facility] Jan 06, 2024 09:30 AM AMBULATORY - MEDICINE [facility] [place] [facility] Jan 13, 2024 03:00 PM AMBULATORY - MEDICINE [facility] [place] [facility] Jan 19, 2024 08:30 AM AMBULATORY - REHAB MEDICIN [facility] Lab Results: +/- 30 days of the encounter This section includes the Chemistry and Hematology Lab Results on record with CT for the patient. Radiology Reports and Pathology Reports are provided separately, in subsequent sections. Lab Results This section contains the Chemistry/Hematology Results that were resulted 30 days before or 30 daysafter the date of the Encounter. Date/Time Source Result Type Result - Unit Interpretation Reference Range Comment August 17, 2023 05:[address] [facility] OCCULT BLOOD FIT X1 SCREEN(IN-HOUSE) Specimen Type: FECES No comment entered. Ordering Provider: MOE MARKS Report Released Date/Time: August 14, 2023 03:34 PM Reporting Lab: [address] [address] Performing Lab: [address] [address] OCCULT BLOOD (FIT)#1 OF 1 Negative NEG August 15, 2023 08:59 AM [facility] [place] [facility] FOLATE (WROX) Specimen Type: SERUM No comment entered. Ordering Provider: MOE MARKS Report Released Date/Time: August 14, 2023 03:34 PM Reporting Lab: [facility] [place] [facility] [address] [facility] [address] Performing Lab: [facility] [place] [facility] [address] [facility] [address] FOLATE (WROX) 13.92 ng/mL >5.2 August 15, 2023 08:59 AM [facility] [place] [facility] FERRITIN Specimen Type: SERUM No comment entered. Ordering Provider: MOE MARKS Report Released Date/Time: August 14, 2023 03:34 PM Reporting Lab: [facility] [place] [address] [address] Performing Lab: [facility] [place] [address] [address] FERRITIN 108 ng/mL 20-300 August 15, 2023 08:59 AM [facility] VITAMIN B12 Specimen Type: SERUM No comment entered. Ordering Provider: MOE MARKS Report Released Date/Time: August 14, 2023 03:34 PM Reporting Lab: [facility] [place] [address] [address] Performing Lab: [facility] [place] [facility] [address] [facility] [address] VITAMIN B12 284 pg/mL 200-900 August 15, 2023 08:59 AM [facility] [place] [facility] IRON & TIBC PANEL Specimen Type: SERUM No comment entered. Ordering Provider: MOE MARKS Report Released Date/Time: August 14, 2023 03:34 PM Reporting Lab: [facility] [place] [address] [address] Performing Lab: [facility] [place] [facility] [address] [facility] [address] TIBC 380 ug/dL 204-475 IRON 71 ug/dL 40-160 Transferrin Saturation 18.7 L 20.0-50.0 August 15, 2023 08:59 AM [facility] CBC AND DIFF (AUTO) Specimen Type: BLOOD No comment entered. Ordering Provider: MOE MARKS Report Released Date/Time: August 14, 2023 03:34 PM Reporting Lab: [address] [address] Performing Lab: [address] [address] WBC 5.70 10*3/uL 4.50-11.00 RBC 3.35 10*6/uL L 4.23-5.66 HGB 10.3 g/dL L 12.8-17 HCT 32.9 L 39.2-50.4 MCV 98.2 fL 82-99 MCHC 31.3 g/dL 30.8-35.1 PLT 303 10*3/uL 140-360 RDW-CV 14.2 12.0-16.0 Fergus, Abs 0.63 10*3/uL 0.30-1.10 MCH 30.7 pg 26.2-32.6 Neut % 73.0 43.7-75.8 Lymph % 14.2 14.0-42.3 Fergus % 11.1 5.1-13.7 Eos % 0.4 0.4-6.8 Baso % 0.4 0.1-2.0 Neut, Abs 4.17 10*3/uL 2.20-7.60 Lymph, Abs 0.81 10*3/uL L 1.00-3.20 Eos, Abs 0.02 10*3/uL L 0.03-0.44 Baso, Abs 0.02 10*3/uL 0.01-0.13 Immature Gran % 0.9 H 0.0-0.7 Immature Gran, Abs 0.05 10*3/uL 0.00-0.06 August 06, 2023 07:31 AM [facility] LIVER FUNCTION Specimen Type: SERUM No comment entered. Ordering Provider: GEORGINA ARITA Report Released Date/Time: Jun 06, 2023 11:30 AM Reporting Lab: [facility] [address] [facility] [address] Performing Lab: [facility] [address] [facility] [address] PROTEIN,TOTAL 6.4 g/dL 6.0-8.3 ALBUMIN 3.0 g/dL L 3.5-5.0 ALKALINE PHOSPHATASE 61 U/L 40-150 AST 22 U/L 5-34 ALT 24 U/L BILIRUBIN, TOTAL 0.7 mg/dL 0.2-1.2 August 06, 2023 07:31 AM [facility] CBC AND DIFF (AUTO) Specimen Type: BLOOD No comment entered. Ordering Provider: GEORGINA ARITA Report Released Date/Time: Jun 06, 2023 11:30 AM Reporting Lab: [address] [address] Performing Lab: [address] [address] WBC 7.50 10*3/uL 4.50-11.00 RBC 3.17 10*6/uL L 4.23-5.66 HGB 9.8 g/dL L 12.8-17 HCT 31.1 L 39.2-50.4 MCV 98.1 fL 82-99 MCHC 31.5 g/dL 30.8-35.1 PLT 181 10*3/uL 140-360 RDW-CV 14.2 12.0-16.0 Fergus, Abs 0.70 10*3/uL 0.30-1.10 MCH 30.9 pg 26.2-32.6 Neut % 79.2 H 43.7-75.8 Lymph % 10.1 L 14.0-42.3 Fergus % 9.3 5.1-13.7 Eos % 0.3 L 0.4-6.8 Baso % 0.4 0.1-2.0 Neut, Abs 5.94 10*3/uL 2.20-7.60 Lymph, Abs 0.76 10*3/uL L 1.00-3.20 Eos, Abs 0.02 10*3/uL L 0.03-0.44 Baso, Abs 0.03 10*3/uL 0.01-0.13 Immature Gran % 0.7 0.0-0.7 Immature Gran, Abs 0.05 10*3/uL 0.00-0.06 August 06, 2023 07:31 AM [facility] BASIC METABOLIC PANEL (non-fasting) Specimen Type: SERUM No comment entered. Ordering Provider: MIAH BUTTS Report Released Date/Time: May 07, 2023 02:07 PM Reporting Lab: [facility] [address] [facility] [address] Performing Lab: [address] [address] UREA NITROGEN 31 mg/dL H 7-25 GLUCOSE 230 mg/dL H 65-100 SODIUM 136 mmol/L 135-145 POTASSIUM 4.2 mmol/L 3.5-5.0 CHLORIDE 103 mmol/L 100-110 CO2 21 meq/L 20-30 CREATININE, Serum 1.67 mg/dL H 0.50-1.40 eGFR(CKD-EPI 2020) 41 mL/min L >60 August 06, 2023 07:31 AM [facility] HEMOGLOBIN A1C PANEL Specimen Type: BLOOD [...] May 07, 2023 02:07 PM Reporting Lab: [address] [address] Performing Lab: [address] [address] HEMOGLOBIN A1C 7.7 H 4.0-5.6 Social History: Smoking Status (Most current) and Tobacco Use (All prior to encounter date) This section includes the most current, and the historical, smoking and tobacco- related health factors from the CT facility where the Encounter took place. Current Smoking Status This section includes the most current smoking, or tobacco-related health factor, from the CT facility where the Encounter took place. Date/Time Current Smoking Status Comment Robby it Dec 24, 2022 10:30 AM VA-TOBACCO FORMER USER CT [facility] [place] [facility] Tobacco Use History This section includes a history of the smoking, or tobacco-related health factors, that were collected on or before the date of the Encounter. The data comes from the CT facility where the Encounter took place. Date/Time Smoking Status/Tobac co Use Comment Facility Dec 24, 2022 10:30 AM VA-TOBACCO QUIT [address] [facility] [place] [facility] Dec 24, 2021 10:00 AM VA-TOBACCO FORMER USER CT [facility] [place] [facility] Dec 24, 2021 10:00 AM VA-TOBACCO QUIT 5 TO < [address] [facility] [place] [facility] Dec 14, 2020 08:30 AM VA-TOBACCO FORMER USER CT [facility] [place] [facility] Dec 14, 2020 08:30 AM VA-TOBACCO QUIT 5 TO < [address] [facility] [place] [facility] Nov 15, 2019 11:00 AM VA-TOBACCO FORMER USER CT [facility] [place] [facility] Nov 15, 2019 11:00 AM VA-TOBACCO QUIT 5 TO < [address] [facility] [place] [facility] Oct 20, 2017 08:19 AM VA-TOBACCO FORMER USER CT [facility] [place] [facility] Oct 20, 2017 08:19 AM VA-TOBACCO QUIT 5 TO < [address] [facility] [place] [facility] Sep 04, 2017 11:09 AM QUIT TOBACCO USE > [address] [facility] [place] [facility] Oct 16, 2016 09:08 AM QUIT TOBACCO USE > [address] [facility] [place] [facility] Feb 20, 2015 10:58 AM QUIT TOBACCO USE > 7 YEARS AGO quit 2009-cigarettes and cigars for [address] [facility] [place] [facility] Advance Directives: All historical and current Section Date Range: From patient's date of to the date document was created. This section includes ALL of a patient's completed or amended CT Advance and Rescinded Directives. The entries below indicate that a directive exists for the patient, but an actual copy is not included with this document. The data comes from all CT facilities. Date Advance Directives Provider Source Mar 23, 2014 ADVANCE DIRECTIVE ROSALINDA SHELBY CT [facility] [place] [facility] Encounter Notes: All associated encounter notes This section contains the clinical notes associated to the Encounter. Date/Time Encounter Note(s) Provider Source August 21, 2023 06:33 AM ENDOCRINOLOGY SECU RE MESSAGING: LOCAL TITLE: ENDOCRINOLOGY SECURE MESSAGING STANDARD TITLE: ENDOCRINOLOGY SECURE MESSAGING DATE OF NOTE: AUGUST 21, 2023@06:33 ENTRY DATE: AUGUST 21, 2023@07:33:02 AUTHOR: MIAH BUTTSIGNER: URGENCY: STATUS: COMPLETED ------Original Message ----- Sent: 08/20/2023 02:49 PM ET From: TONY CASTELLON To: FAM BUTTSM@ Subject: Medication:renew RX #[id number] Please renew RX [id number] Glucose Tablets Thank You ------Original Message ----- Sent: 08/20/2023 03:00 PM ET From: GLORIA CAMPOS To: TONY CASTELLON Subject: Medication:renew RX #[id number] These have been renewed for mailing. be well! Gloria Campos RN, BSN Endocrinology ------Original Message ----- Sent: 08/20/2023 05:52 PM ET From: TONY CASTELLON To: Nneka BUTTSENDOCRINELa NenaNHM@ Subject: Medication:renew RX #[id number] Thank you ------Original Message ----- Sent: 08/21/2023 07:32 AM ET From: MIAH BUTTS To: TONY CASTELLON Subject: Medication:renew RX #[id number] You are welcome! /jus/ MIAH BUTTS MD STAFF PHYSICIAN Signed: 08/21/2023 07:33 MIAH BUTTS [facility]
--- OUTSIDE RECORDS SUMMARY | 2024-03-26 16:27 | XMS_ITS | Encounter Summary ---
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 Date/Time Primary/Secondary Diagnosis Diagnosis Name Provider Source Nov 13, 2023 02:13 PM PRIMARY Type 2 diabetes mellitus with unspecified complications AVA GUTIERREZ MOON Plan of Treatment: Future Appointments (+ 6 months) and Future Tests (+/- 45 days) The Plan of Treatment section includes future care activities for the patient from all [place] [facility] This section includes future appointments and future orders which are active, pending or scheduled. Future Appointments This section includes appointments that were scheduled to occur 6 months from the date of the Encounter, up to a maximum of 20 appointments. The data comes from all [place] treatment facilities. Appointment Date/Time Appointment Type Appointme nt Facility Name Dec 31, 2023 02:00 PM AMBULATORY - MEDICINE [place] [facility] [place] [facility] Jan 06, 2024 09:30 AM AMBULATORY - MEDICINE [place] [facility] [place] [facility] Jan 13, 2024 03:00 PM AMBULATORY - MEDICINE [place] [facility] [place] [facility] Jan 19, 2024 08:30 AM AMBULATORY - REHAB MEDICIN [facility] [place] [facility] Feb 23, 2024 03:00 PM AMBULATORY - MEDICINE [place] [facility] [place] [facility] Mar 03, 2024 02:00 PM AMBULATORY - MEDICINE [place] [facility] [place] [facility] Mar 03, 2024 02:30 PM AMBULATORY - MEDICINE [place] [facility] [place] [facility] Mar 30, 2024 03:00 PM AMBULATORY - MEDICINE [place] [facility] [place] [facility] Mar 31, 2024 02:30 PM AMBULATORY - MEDICINE [place] [facility] [place] [facility] Apr 07, 2024 08:00 AM AMBULATORY - MEDICINE [facility] [place] [facility] Active, Pending, and Scheduled Orders This section includes a listing of several types of active, pending, and scheduled orders, including clinic medications orders, diagnostic test orders, procedure orders and consult orders; where the start date of the order is 45 days before the date of the Encounter or 45 days after the date of theEncounter. The data comes from all [place] treatment facilities. Test Date/Time Test Type Test Details Facility Name Nov 13, 2023 12:00 AM Laboratory - Chemi stry Order BASIC METABOLIC PANEL (non-fasting) BLOOD (SST-SERUM) SP [facility] Lab Results: +/- 30 days of [...] Result - Unit Interpretation Reference Range Comment Nov 11, 2023 09:05 AM [facility] BASIC METABOLIC PANEL (non-fasting) Specimen Type: SERUM No comment entered. Ordering Provider: MIAH BUTTS Report Released Date/Time: Nov 05, 2023 04:26 PM Reporting Lab: [facility] [address] [facility] [address] Performing Lab: [facility] [address] [facility] [address] UREA NITROGEN 39 mg/dL H 7-25 GLUCOSE 412 mg/dL H 65-100 SODIUM 132 mmol/L L 135-145 POTASSIUM 4.6 mmol/L 3.5-5.0 CHLORIDE 101 mmol/L 100-110 CO2 19 meq/L L 20-30 CREATININE, Serum 1.99 mg/dL H 0.50-1.40 eGFR(CKD-EPI 2020) 33 mL/min L >60 Nov 05, 2023 07:31 AM [facility] LIPID PANEL, NON FASTING Specimen Type: SERUM No comment entered. Ordering Provider: MIAH BUTTS Report Released Date/Time: Oct 23, 2023 03:32 PM Reporting Lab: [facility] [address] [facility] [address] Performing Lab: [address] [address] CHOLESTEROL 140 mg/dL TRIGLYCERIDE 94 mg/dL 0-150 LDL calculated 72 mg/dL 0-129 CHOL/HDL 2.9 HDL CHOLESTEROL 49 mg/dL 40-60 Nov 05, 2023 07:31 AM [facility] HEMOGLOBIN A1C PANEL Specimen Type: BLOOD Comment: Values obtained from A1C measurements can vary. For atypical A1C assays, a reported value of 7.0 could actually be between 6.72 and 7.28 if measured by a reference method. A reported value of 9.0 could actually be between 8.73 and 9.27. Ref: http://www.ngs p.org/CAPdata. asp Ordering Provider: MIAH BUTTS Report Released Date/Time: Oct 23, 2023 03:32 PM Reporting Lab: [address] [address] Performing Lab: [address] [address] HEMOGLOBIN A1C 8.1 H 4.0-5.6 Nov 05, 2023 07:31 AM [facility] BASIC METABOLIC PANEL (non-fasting) Specimen Type: SERUM No comment entered. Ordering Provider: MIAH BUTTS Report Released Date/Time: Oct 23, 2023 03:32 PM Reporting Lab: [address] [address] Performing Lab: [address] [address] UREA NITROGEN 49 mg/dL H 7-25 GLUCOSE 198 mg/dL H 65-100 SODIUM 135 mmol/L 135-145 POTASSIUM 4.5 mmol/L 3.5-5.0 CHLORIDE 102 mmol/L 100-110 CO2 20 meq/L 20-30 CREATININE, Serum 2.33 mg/dL H 0.50-1.40 eGFR(CKD-EPI 2020) 27 mL/min L >60 Nov 05, 2023 07:31 AM [facility] MICROALBUMIN CREATININE RATIO PANEL Specimen Type: URINE No comment entered. Ordering Provider: MIAH BUTTS Report Released Date/Time: Oct 23, 2023 03:32 PM Reporting Lab: [address] [address] Performing Lab: [facility] [address] [facility] [address] MICROALBUMIN/C REATININE RATIO canc mg/g 0-29.9 MICROALBUMIN,Q UANTITATIVE < 0.5 mg/dL RR UNAVAIL CREATININE URINE 18.58 mg/dL Advance Directives: All historical and current Section [...] Mar 23, 2014 ADVANCE DIRECTIVE ROSALINDA SHELBY [facility] Encounter Notes: All associated encounter notes This section contains the clinical notes associated to the Encounter. Date/Time Encounter Note(s) Provider Source Nov 13, 2023 02:12 PM MEDICATION MGT CON SULT: LOCAL TITLE: CONSULT REPORT/NON FORMULARY PADR STANDARD TITLE: MEDICATION MGT CONSULT DATE OF NOTE: NOV 13, 2023@14:12 ENTRY DATE: NOV 13, 2023@14:12:19 AUTHOR: AVA GUTIERREZ EXP COSIGNER: URGENCY: STATUS: COMPLETED The medical record has been reviewed with regard to this restricted drug request. Medication requested: GLUCOSE SENSOR FREESTYLE DEVON 3 Medication indication: DM Medical history relevant to this request: On insulin therapy; approved for Devon 2. Upgrading to Devon 3. Followed by endocrine. The request is approved - A documented therapeutic failure of the preferred formulary alternative(s) exists /jus/ Ava Gutierrez PharmD Clinical Pharmacy Practitioner Signed: 11/13/2023 14:13 AVA GUTIERREZ MOON
--- OUTSIDE RECORDS SUMMARY | 2024-03-26 16:27 | XMS_ITS ---
Author Name [facility] [place] Organization [facility] [place] Address [address] [place] [id number] Care Team Providers Care Jewel Hole Finish Opener Name Role Phone AJAY APODACA Primary Care [...] PART A Nov 22, 2006 PART A [id number] [phone] TONY CASTELLON PATIENT MEDICARE (WNR) MEDICARE (M) PART B Nov 22, 2006 PART B [id number] TONY CASTELLON PATIENT MEDICARE (WNR) MEDICARE (M) PART B Nov 22, 2006 PART B [id number] TONY CASTELLON PATIENT MEDICARE (WNR) MEDICARE (M) PART A Nov 22, 2006 PART A [id number] [phone] TONY CASTELLON PATIENT FOR LIFE TFL* Apr 20, 2014 [id number] SUKHJINDER CASTELLON JR PATIENT Selected Encounter This section includes the information on record at [place] for the Encounter. Date/Time Encounter Type Encounter Description Reason Provider Source Nov 13, 2023 09:30 AM OFFICE O/P EST HI 40 MIN ENDOCRINOLOGY ICD-10-CM E11.8 Type 2 diabetes mellitus with unspecified complications MIAH BUTTS Jose Encounter Template Text not used by [place] Assessments - Encounter Diagnoses This section includes the primary and secondary diagnoses documented for the Encounter. Date/Time Primary/Secondary Diagnosis Diagnosis Name Provider Source Nov 13, 2023 10:02 AM PRIMARY Type 2 diabetes mellitus with unspecified complications [facility]TSMIAH [facility] [place] [facility] Nov 13, 2023 10:02 AM SECONDARY Chronic kidney disease, unspecified [place]OUGHKEE[place]IAH [facility] [place] [facility] Nov 13, 2023 10:02 AM SECONDARY Essential (primary) hypertension [place] [facility] [place] [facility] Nov 13, 2023 10:02 AM SECONDARY Mixed hyperlipidemia [place]IA[place] [facility] [place] [facility] Nov 13, 2023 10:02 AM SECONDARY Type 2 diabetes mellitus w diabetic chronic kidney disease [place]IA[place] [facility] [place] [facility] Nov 13, 2023 10:02 AM SECONDARY Type 2 diabetes mellitus with diabetic polyneuropathy [place]IA[place] [facility] [place] [facility] Plan of Treatment: Future Appointments (+ 6 months) and Future Tests (+/- 45 days) The Plan of Treatment section includes future care activities for the [facility] This section includes future appointments and future orders which are active, pending or scheduled. Future Appointments This section includes appointments that were scheduled to occur 6 months from the date of the Encounter, up to a maximum of 20 appointments. The data comes from all [place] treatment facilities. Appointment Date/Time Appointment Type Appointme nt Facility Name Dec 31, 2023 02:00 PM AMBULATORY - MEDICINE [facility] [place] [facility] Jan 06, 2024 09:30 AM AMBULATORY - MEDICINE [facility] [place] [facility] Jan 13, 2024 03:00 PM AMBULATORY - MEDICINE [facility] [place] [facility] Jan 19, 2024 08:30 AM AMBULATORY - REHAB MEDICIN E [facility] [place] [facility] Feb 23, 2024 03:00 PM AMBULATORY [facility] MEDIC[facility] [place] [facility] Mar 03, 2024 02:00 PM AMBULATORY - MEDICINE [facility] Mar 03, 2024 02:30 PM AMBULATORY - MEDICINE [facility] Mar 30, 2024 03:00 PM AMBULATORY - MEDIC[facility] Mar 31, 2024 02:30 PM [facility] Apr 07, 2024 08:00 AM [facility] Active, Pending, and Scheduled Orders This section includes a listing of several types of active, pending, and scheduled orders, including clinic medications orders, diagnostic test orders, procedure orders and consult orders; where the start date of the order is 45 days before the date of the Encounter or 45 days after the date of theEncounter. The data comes from all [place] treatment facilities. Test Date/Time Test Type Test Details Facility Name Nov 13, 2023 12:00 AM Laboratory - Chemi stry Order BASIC METABOLIC PANEL (non-fasting) BLOOD (SST-SERUM) SP [facility] Lab Results: +/- 30 days of the encounter This section includes the Chemistry and Hematology Lab Results on record with [place] for the patient. Radiology Reports and Pathology Reports are provided separately, in subsequent sections. Lab Results This section contains the Chemistry/Hematology Results that were resulted 30 days before or 30 daysafter the date of the Encounter. Date/Time Source Result Type Result - Unit Interpretation Reference Range Comment Nov 11, 2023 09:05 AM [facility] BASIC METABOLIC PANEL (non-fasting) Specimen Type: SERUM No comment entered. Ordering Provider: MIAH BUTTS Report Released Date/Time: Nov 05, 2023 04:26 PM Reporting Lab: [address] [address] Performing Lab: [address] [address] UREA NITROGEN 39 mg/dL H 7-25 GLUCOSE 412 mg/dL H 65-100 SODIUM 132 mmol/L L 135-145 POTASSIUM 4.6 mmol/L 3.5-5.0 CHLORIDE 101 mmol/L 100-110 CO2 19 meq/L L 20-30 CREATININE, Serum 1.99 mg/dL H 0.50-1.40 eGFR(CKD-EPI 2020) 33 mL/min L >60 Nov 05, 2023 07:31 AM [facility] LIPID PANEL, NON FASTING Specimen Type: SERUM No comment entered. Ordering Provider: MIAH BUTTS Report Released Date/Time: Oct 23, 2023 03:32 PM Reporting Lab: [facility] [address] [facility] [address] Performing Lab: [facility] [address] [facility] [address] CHOLESTEROL 140 mg/dL TRIGLYCERIDE 94 mg/dL 0-150 LDL calculated 72 mg/dL 0-129 CHOL/HDL 2.9 HDL CHOLESTEROL 49 mg/dL 40-60 Nov 05, 2023 07:31 AM [facility] MICROALBUMIN CREATININE RATIO PANEL Specimen Type: URINE No comment entered. Ordering Provider: MIAH BUTTS Report Released Date/Time: Oct 23, 2023 03:32 PM Reporting Lab: [facility] [address] [facility] [address] Performing Lab: [address] [address] MICROALBUMIN/C REATININE RATIO canc mg/g 0-29.9 MICROALBUMIN,Q UANTITATIVE < 0.5 mg/dL RR UNAVAIL CREATININE URINE 18.58 mg/dL Nov 05, 2023 07:31 AM [facility] HEMOGLOBIN A1C PANEL Specimen Type: BLOOD [...] Oct 23, 2023 03:32 PM Reporting Lab: [address] [address] Performing Lab: [facility] [address] [facility] [address] HEMOGLOBIN A1C 8.1 H 4.0-5.6 Nov 05, 2023 07:31 AM [facility] BASIC METABOLIC PANEL (non-fasting) Specimen Type: SERUM No comment entered. Ordering Provider: MIAH BUTTS Report Released Date/Time: Oct 23, 2023 03:32 PM Reporting Lab: [facility] [address] [facility] [address] Performing Lab: [facility] [address] [facility] [address] UREA NITROGEN 49 mg/dL H 7-25 GLUCOSE 198 mg/dL H 65-100 SODIUM 135 mmol/L 135-145 POTASSIUM 4.5 mmol/L 3.5-5.0 CHLORIDE 102 mmol/L 100-110 CO2 20 meq/L 20-30 CREATININE, Serum 2.33 mg/dL H 0.50-1.40 eGFR(CKD-EPI 2020) 27 mL/min L >60 Vital Signs: All taken on the encounter date This section contains inpatient and outpatient Vital Signs collected on the date of the Encounter. Date/Time Temperature Pulse Blood Pressure Respiratory Rate SP02 Pain Height Weight Body Mass Index Source Nov 13, 2023 09:26 AM 97.9 98 109/62 16 96 0 66 177 29 [facility] Social History: Smoking Status (Most current) and Tobacco Use (All prior to encounter date) This section includes the most current, and the historical, smoking and tobacco- related health factors from the [place] facility where the Encounter took place. Current Smoking Status This section includes the most current smoking, or tobacco-related health factor, from the [place] facility where the Encounter took place. Date/Time Current Smoking Status Comment [facility] it Dec 24, 2022 10:30 AM VA-TOBACCO FORMER USER [facility] Tobacco Use History This section includes a history of the smoking, or tobacco-related health factors, that were collected on or before the date of the Encounter. The data comes from the [place] facility where the Encounter took place. Date/Time Smoking Status/Tobac co Use Comment Facility Dec 24, 2022 10:30 AM [place]-TOBACCO QUIT 15 YRS OR MORE [facility] [place] [facility] Dec 24, 2021 10:00 AM VA-TOBACCO FORMER USER [facility] [place] [facility] Dec 24, 2021 10:00 AM VA-TOBACCO QUIT 5 TO < 15 YRS [facility] [place] [facility] Dec 14, 2020 08:30 AM VA-TOBACCO FORMER USER [facility] [place] [facility] Dec 14, 2020 08:30 AM VA-TOBACCO QUIT 5 TO < 15 YRS [facility] [place] [facility] Nov 15, 2019 11:00 AM VA-TOBACCO FORMER USER [facility] [place] [facility] Nov 15, 2019 11:00 AM VA-TOBACCO QUIT 5 TO < 15 YRS [facility] [place] [facility] Oct 20, 2017 08:19 AM VA-TOBACCO FORMER USER [facility] [place] [facility] Oct 20, 2017 08:19 AM VA-TOBACCO QUIT 5 TO < 15 YRS [facility] [place] [facility] Sep 04, 2017 11:09 AM QUIT TOBACCO USE > 7 YEARS AGO [facility] [place] [facility] Oct 16, 2016 09:08 AM QUIT TOBACCO USE > 7 YEARS AGO [facility] [place] [facility] Feb 20, 2015 10:58 AM QUIT TOBACCO USE > 7 YEARS AGO quit 2009-cigarettes and [facility] Advance Directives: All historical and current Section Date Range: From patient's date of to the date document was created. This section includes ALL of a patient's completed or amended [place] Advance and Rescinded Directives. The entries below indicate that a directive exists for the patient, but an actual copy is not included with this document. The data comes from all [place] facilities. Date Advance Directives Provider Source Mar 23, 2014 ADVANCE DIRECTIVE ROSALINDA SHELBY [facility] Encounter Notes: All associated encounter notes This section contains the clinical notes associated to the Encounter. Date/Time Encounter Note(s) Provider Source Nov 13, 2023 10:36 AM ADDENDUM: LOCAL TITLE: Addendum STANDARD TITLE: ADDENDUM DATE OF NOTE: NOV 13, 2023@10:36:52 ENTRY DATE: NOV 13, 2023@10:36:53 AUTHOR: VICTORINA TIRADO EXP COSIGNER: URGENCY: STATUS: COMPLETED Please reach to schedule apt as recommended by . Please schedule 60 mins FTF for [employer] 3 teaching within next 2-4 weeks or further out if pt desires. /jus/ VICTORINA TIRADO PHARMD,BCPS CLINICAL PHARMACY PRACTITIONER Signed: 11/13/2023 10:39 Receipt Acknowledged By: 11/13/2023 10:54 /es/ ANGELES JUNIOR Clinical Engine Watchman --- Original Document --- 11/09/23 NOTE: CC: Diabetes mellitus with chronic kidney disease, HTN, Hyperlipidemia, HPI: He is about to have TAVR. Doing pretty well. All endocrine labs were reviewed with the patient. Barriers/s supports for care: Lives alone in condo. Cooks for himself from scratch TID. Bfast is quite variabile in CHO, generally one of two meals. Medications for diabetes: INSULIN,ASPART(EQV-NOVLG)100UN/M L FLXPEN INJECT 7 UNITS ACTIVE SUBCUTANEOUSLY EVERY MORNING AND INJECT 8 UNITS AT NOON AND INJECT 15 UNITS EVERY EVENING BEFORE SUPPER INSULIN,GLARGINE-YFGN 100UNIT/ML PEN 3ML INJECT 10 UNITS HOLD SUBCUTANEOUSLY TWICE DAILY BG readings: CGM Hgba1c? HEMOGLOBIN A1C TREND 11/05/2023 07:31 BLOOD 8.1 H 08/06/2023 07:31 BLOOD 7.7 H 05/05/2023 07:48 BLOOD 7.2 H 01/03/2023 09:54 BLOOD 7.8 H 10/01/2022 09:40 BLOOD 7.8 H Weight trend: 176.2 lbs BMI 28.5 Food insecurity no Pattern of eating throughout the day: three meals Physical activity: not much limited by valvular disease Carbohydrate counting: feels well informed. Episodes of hypoglycemia: occ at night Hypoglycemia unawareness: Neuropathy pain: no pain Last eye evaluation: has appt coming up in February Last nephropathy screen MICROALBUMIN Nov 05, 2023@07:31 URINE mALB/Cr: canc mg/G 0 - 29.9 Nov 05, 2023@07:31 URINE MICROALBUMIN,QUANTITATIVE:< 0.5 Nov 10 Nov 04 August 05 August 05 Reference 2023 CREATININE 1.99 H 2.33 H 1.67 H mg/dL .5 - 1.4 FindingsCREATININE-EGFR 11/05/23 07:31 2.33 H 08/06/23 07:31 1.67 H 05/05/23 07:48 1.45 H Statin therapy: Nov 04 May 05 20232023 CHOL 140 86 mg/dL <7 - 199 TRIG 94 74 mg/dL 0 - 150 HDL 49 31 L mg/dL 40 - 60 LDL 72 40 mg/dL 0 - 70 CAD: none known On asa: Yes (atrial fibrillation) emergency kit/glucose tabs: Active problems - Computerized Problem List is the source for the followin. Exposure to potentially hazardous substance ([facility] [id number]) 2. Cardiac pacemaker in situ 3. Chronic [...] 1 SENSOR DIRECTED ACTIVE EVERY 14 DAYS INSULIN,ASPART(EQV-NOVLG)100UN/M L FLXPEN INJECT 7 UNITS ACTIVE SUBCUTANEOUSLY EVERY MORNING AND INJECT 8 UNITS AT NOON AND INJECT 15 UNITS EVERY EVENING BEFORE SUPPER INSULIN,GLARGINE-YFGN 100UNIT/ML PEN 3ML INJECT 10 UNITS HOLD SUBCUTANEOUSLY TWICE DAILY LIDOCAINE 5% OINT APPLY LIBERAL AMOUNT TOPICALLY TWICE ACTIVE DAILY NEEDED FOR NEUROPATHY PAIN Non-VA AMIODARONE HCL 200MG TAB 200MG BY MOUTH TWICE DAILY ACTIVE Non-VA ASPIRIN 81MG EC TAB 81MG BY MOUTH EVERY DAY ACTIVE discontinued Non-VA ATORVASTATIN CALCIUM 20MG TAB 10MG BY MOUTH ACTIVE Non-VA CHOLECALCIF 50MCG (D3-2,000UNIT) TAB 50MCG BY MOUTH ACTIVE discontinued ONCE DAILY Non-VA FENOFIBRATE 54MG TAB 108MG BY MOUTH ONCE DAILY ACTIVE Non-VA FINASTERIDE 5MG TAB 5MG BY MOUTH ONCE DAILY ACTIVE Non-VA FLUTICAS 500/SALMETEROL 50 INHL DISK 60 1 PUFF BY ACTIVE MOUTH ONCE DAILY Non-VA FUROSEMIDE 40MG TAB 40MG BY MOUTH TWICE DAILY ACTIVE Non-VA METOPROLOL TARTRATE 25MG TAB 12.5MG BY MOUTH TWICE ACTIVE DAILY Non-VA TERAZOSIN HCL 5MG CAP 5MG BY MOUTH ONCE DAILY ACTIVE SHX: as above ROS: No cough or fever PE: affect pleasant appropriate speaking easily in full sentences Feet pulses marked decrease sensory to monofilament reports normal to monofilament lesions no Medical Decision Making: Diabetes mellitus with chronic kidney disease: He agrees to upgrade to KnowledgeVision 3 sensor, uses reader. Insulin Dose: glargine 10 units AM and 6 units PM , aspart 8 units for eggs and two toast, 12 units for cereal milk and fruit and nuts for bfast, 5 units lunch, 9 units dinner. Given written copy of orders He agrees with plan Carbohydrate targets 45 gm TID Blood sugar targets 130-150 premeal and 150-200 after Hemoglobin A1c Targets 8 Hypertension well controlled. Hyperlipidemia well controlled Team follow up Good candidate for CPP follow up and he agrees lab Repeat bmp next week He agrees. Insulin orders updated in cprs Medication Reconciliation: Outpatient: Has the patient been taking medications as documented in the EMLR? YES: The patient has been taking medications as documented in the EMLR. Essential Medication List for Review used to [...] discontinued in the past 90 days. - All changes in medications, including all [...] Remote Allergy/ADR Data available for this patient [facility] [place] [facility] No Known Allergies Med Recon NoGlossary (Tool #1) INCLUDED IN THIS LIST: Alphabetical list of active outpatient prescriptions dispensed from this [place] (local) and dispensed from another [place] or [facility] facility (remote) as well as inpatient orders (local pending and active), local clinic medications, locally documented non-VA medications, and local prescriptions that have or been discontinued in the past 90 days. Non-VA Meds Last Documented On: August 13, 2023 NOTE The display of VA prescriptions dispensed from another VA or [facility] facility (remote) is limited to active outpatient prescription entries matched to National Drug File at the originating site and may not include some items such as investigational drugs, compounds, etc. NOT INCLUDED IN THIS LIST: Medications self-entered by the patient into personal health records (i.e. [email or web address]) are NOT included in this list. Non-VA medications documented outside this [place], remote inpatient orders (regardless of status) and remote clinic medications are NOT included in this list. The patient and provider must always discuss medications the patient is taking, regardless of where the medication was dispensed or obtained. -------- Non-VA AMIODARONE HCL 200MG TAB TAKE ONE TABLET BY MOUTH TWICE DAILY OUTPT APIXABAN 5MG TAB (Status = Active) TAKE ONE-HALF TABLET BY MOUTH TWICE DAILY FOR PREVENTION OF BLOOD CLOTS Rx# [id number] Last Released: 01/06/23 Qty/Days Supply: Rx Expiration Date: 12/25/23 Refills Remainin Indication: FOR PREVENTION OF BLOOD CLOTS Non-VA ASPIRIN 81MG EC TAB TAKE ONE TABLET BY MOUTH EVERY DAY Non-VA ATORVASTATIN CALCIUM 20MG TAB TAKE ONE-HALF TABLET BY MOUTH OUTPT CARBOXYMETHYLCELLULOSE NA 0.5% OPH SOLN (Status = Active) INSTILL 1 DROP INTO EACH EYE TWICE DAILY Rx# [id number] Last Released: 04/04/23 Qty/Days Supply: Rx Expiration Date: 01/10/24 Refills Remainin Non-VA CHOLECALCIF 50MCG (D3-2,000UNIT) TAB TAKE ONE TABLET BY MOUTH ONCE DAILY Non-VA FENOFIBRATE 54MG TAB TAKE TWO TABLETS BY MOUTH ONCE DAILY Non-VA FINASTERIDE 5MG TAB TAKE ONE TABLET BY MOUTH ONCE DAILY Non-VA FLUTICAS 500/SALMETEROL 50 INHL DISK 60 INHL DISK 60 INHALE 1 PUFF BY MOUTH ONCE DAILY Non-VA FUROSEMIDE 40MG TAB TAKE ONE TABLET BY MOUTH TWICE DAILY OUTPT GLUCOSE 4GM CHEW TAB (Status = Discontinued) CHEW THREE TO FOUR TABLETS BY MOUTH NEEDED FOR LOW BLOOD SUGAR BELOW 70 Rx# [id number] Last Released: 07/25/23 Qty/Days Supply: Rx Expiration Date: 01/10/24 Refills Remainin OUTPT GLUCOSE 4GM CHEW TAB (Status = Active) CHEW THREE TO FOUR TABLETS BY MOUTH NEEDED FOR LOW BLOOD SUGAR BELOW 70 Rx# [id number] Last Released: 10/24/23 Qty/Days Supply: Rx Expiration Date: 08/20/24 Refills Remainin OUTPT INSULIN,ASPART (NOVOLOG PEN) INJ (Status = Pending) INJECT DIRECTED SUBCUTANEOUSLY THREE TIMES A DAY 8 units for eggs, 12 units for cereal AM, 5 units noon, 9 units dinner please hold until requested Login Date: 11/13/23 Qty/Days Supply: Refills Ordered: 1 OUTPT INSULIN,ASPART(EQV-NOVLG)100UN/M L FLXPEN (Status = Discontinued) INJECT 7 UNITS SUBCUTANEOUSLY EVERY MORNING AND INJECT 8 UNITS AT NOON AND INJECT 15 UNITS EVERY EVENING BEFORE SUPPER Rx# [id number] Last Released: 08/19/23 Qt Supply: Rx Expiration Date: 08/13/24 Refills Remainin Indication: FOR DIABETES OUTPT INSULIN,GLARGINE-YFGN 100UNIT/ML PEN 3ML (Status = On Hold) INJECT 10 UNITS SUBCUTANEOUSLY TWICE DAILY Rx# [id number] Last Released: Supply: Rx Expiration Date: 08/13/24 Refills Remainin Indication: FOR DIABETES OUTPT LIDOCAINE 5% OINT (Status = Active) APPLY LIBERAL AMOUNT TOPICALLY TWICE DAILY NEEDED FOR NEUROPATHY PAIN Rx# [id number] Last Released: 08/23/23 Qt Supply: Rx Expiration Date: 12/17/23 Refills Remainin Indication: NEUROPATHY PAPIN Non-VA METOPROLOL TARTRATE 25MG TAB TAKE ONE-HALF TABLET BY MOUTH TWICE DAILY Non-VA TERAZOSIN HCL 5MG CAP TAKE 1 CAPSULE BY MOUTH ONCE DAILY -------- SUPPLIES -------- OUTPT GLUCOSE SENSOR FREESTYLE DEVON 2 (Status = Active) USE 1 SENSOR DIRECTED EVERY 14 DAYS Rx# [id number] Last Released: 11/12/23 Qty Supply: 05/21 Rx Expiration Date: 01/28/24 Refills Remainin OUTPT GLUCOSE SENSOR FREESTYLE DEVON 2 (Status = Pending) GLUCOSE SENSOR FREESTYLE DEVON 2 USE 1 SENSOR DIRECTED EVERY 14 DAYS Renewed from Rx# [id number] Qty/Days Supply: 05/21 Login Date: 11/13/23 Refills Ordered: 11 /jus/ MIAH BUTTS MD STAFF PHYSICIAN Signed: 11/13/2023 10:02 Receipt Acknowledged By: 11/13/2023 10:36 /jus/ VICTORINA TIRADO, PHARMD,BCPS CLINICAL PHARMACY PRACTITIONER VICTORINA TIRADO [facility] Nov 09, 2023 01:58 PM PHYSICIAN NOTE: LOCAL TITLE: MD NOTE STANDARD TITLE: PHYSICIAN NOTE DATE OF NOTE: NOV 09, 2023@13:58 ENTRY DATE: NOV 09, 2023@13:58:11 AUTHOR: MIAH BUTTS EXP COSIGNER: URGENCY: STATUS: COMPLETED NOTE Has ADDENDA CC: Diabetes mellitus with chronic kidney disease, HTN, Hyperlipidemia, HPI: He is about to have TAVR. Doing pretty well. All endocrine labs were reviewed with the patient. Barriers/s supports for care: Lives alone in condo. Cooks for himself from scratch TID. Bfast is quite variabile in CHO, generally one of two meals. Medications for diabetes: INSULIN,ASPART(EQV-NOVLG)100UN/M L FLXPEN INJECT 7 UNITS ACTIVE SUBCUTANEOUSLY EVERY MORNING AND INJECT 8 UNITS AT NOON AND INJECT 15 UNITS EVERY EVENING BEFORE SUPPER INSULIN,GLARGINE-YFGN 100UNIT/ML PEN 3ML INJECT 10 UNITS HOLD SUBCUTANEOUSLY TWICE DAILY BG readings: CGM Hgba1c? HEMOGLOBIN A1C TREND 11/05/2023 07:31 BLOOD 8.1 H 08/06/2023 07:31 BLOOD 7.7 H 05/05/2023 07:48 BLOOD 7.2 H 01/03/2023 09:54 BLOOD 7.8 H 10/01/2022 09:40 BLOOD 7.8 H Weight trend: 176.2 lbs BMI 28.5 Food insecurity no Pattern of eating throughout the day: three meals Physical activity: not much limited by valvular disease Carbohydrate counting: feels well informed. Episodes of hypoglycemia: occ at night Hypoglycemia unawareness: Neuropathy pain: no pain Last eye evaluation: has appt coming up in February Last nephropathy screen MICROALBUMIN Nov 05, 2023@07:31 URINE mALB/Cr: canc mg/G 0 - 29.9 Nov 05, 2023@07:31 URINE MICROALBUMIN,QUANTITATIVE:< 0.5 Nov 10 Nov 04 August 05 August 05 Reference 2023 CREATININE 1.99 H 2.33 H 1.67 H mg/dL .5 - 1.4 FindingsCREATININE-EGFR 11/05/23 07:31 2.33 H 08/06/23 07:31 1.67 H 05/05/23 07:48 1.45 H Statin therapy: Nov 04 May 05 20232023 CHOL 140 86 mg/dL <7 - 199 TRIG 94 74 mg/dL 0 - 150 HDL 49 31 L mg/dL 40 - 60 LDL 72 40 mg/dL 0 - 70 CAD: none known On asa: Yes (atrial fibrillation) emergency kit/glucose tabs: Active problems - Computerized Problem List is the source for the followin. Exposure to potentially hazardous substance ([facility] [id number]) 2. Cardiac pacemaker in situ 3. Chronic [...] 1 SENSOR DIRECTED ACTIVE EVERY 14 DAYS INSULIN,ASPART(EQV-NOVLG)100UN/M L FLXPEN INJECT 7 UNITS ACTIVE SUBCUTANEOUSLY EVERY MORNING AND INJECT 8 UNITS AT NOON AND INJECT 15 UNITS EVERY EVENING BEFORE SUPPER INSULIN,GLARGINE-YFGN 100UNIT/ML PEN 3ML INJECT 10 UNITS HOLD SUBCUTANEOUSLY TWICE DAILY LIDOCAINE 5% OINT APPLY LIBERAL AMOUNT TOPICALLY TWICE ACTIVE DAILY NEEDED FOR NEUROPATHY PAIN Non-VA AMIODARONE HCL 200MG TAB 200MG BY MOUTH TWICE DAILY ACTIVE Non-VA ASPIRIN 81MG EC TAB 81MG BY MOUTH EVERY DAY ACTIVE discontinued Non-VA ATORVASTATIN CALCIUM 20MG TAB 10MG BY MOUTH ACTIVE Non-VA CHOLECALCIF 50MCG (D3-2,000UNIT) TAB 50MCG BY MOUTH ACTIVE discontinued ONCE DAILY Non-VA FENOFIBRATE 54MG TAB 108MG BY MOUTH ONCE DAILY ACTIVE Non-VA FINASTERIDE 5MG TAB 5MG BY MOUTH ONCE DAILY ACTIVE Non-VA FLUTICAS 500/SALMETEROL 50 INHL DISK 60 1 PUFF BY ACTIVE MOUTH ONCE DAILY Non-VA FUROSEMIDE 40MG TAB 40MG BY MOUTH TWICE DAILY ACTIVE Non-VA METOPROLOL TARTRATE 25MG TAB 12.5MG BY MOUTH TWICE ACTIVE DAILY Non-VA TERAZOSIN HCL 5MG CAP 5MG BY MOUTH ONCE DAILY ACTIVE SHX: as above ROS: No cough or fever PE: affect pleasant appropriate speaking easily in full sentences Feet pulses marked decrease sensory to monofilament reports normal to monofilament lesions no Medical Decision Making: Diabetes mellitus with chronic kidney disease: He agrees to upgrade to KnowledgeVision 3 sensor, uses reader. Insulin Dose: glargine 10 units AM and 6 units PM , aspart 8 units for eggs and two toast, 12 units for cereal milk and fruit and nuts for bfast, 5 units lunch, 9 units dinner. Given written copy of orders He agrees with plan Carbohydrate targets 45 gm TID Blood sugar targets 130-150 premeal and 150-200 after Hemoglobin A1c Targets 8 Hypertension well controlled. Hyperlipidemia well controlled Team follow up Good candidate for CPP follow up and he agrees lab Repeat bmp next week He agrees. Insulin orders updated in cprs Medication Reconciliation: Outpatient: Has the patient been taking medications as documented in the EMLR? YES: The patient has been taking medications as documented in the EMLR. Essential Medication List for Review used to complete this medication reconciliation. INCLUDED IN THIS LIST: Alphabetical list of active outpatient prescriptions dispensed from this [facility] (local) and dispensed from another [place] or DoD facility (remote) as well as inpatient orders (local, pending and active), local clinic medications, locally documented non-VA medications, and local prescriptions that have or been discontinued in the past 90 days. - All changes in medications, including all [...] Remote Allergy/ADR Data available for this patient [place] [facility] No Known Allergies [facility] INCLUDED IN THIS LIST: Alphabetical list of active outpatient prescriptions dispensed from this [facility] (local) and dispensed from another VA or DoD facility (remote) as well as inpatient orders (local pending and active), local clinic medications, locally documented non-VA medications, and local prescriptions that have or been discontinued in the past 90 days. Non-VA Meds Last Documented On: August 13, 2023 NOTE The display of VA prescriptions dispensed from another VA or DoD facility (remote) is limited to active outpatient prescription entries matched to National Drug File at the originating site and may not include some items such as investigational drugs, compounds, etc. NOT INCLUDED IN THIS LIST: Medications self-entered by the patient into personal health records (i.e. [email or web address]) are NOT included in this list. Non-VA medications documented outside this DE, remote inpatient orders (regardless of status) and remote clinic medications are NOT included in this list. The patient and provider must always discuss medications the patient is taking, regardless of where the medication was dispensed or obtained. -------- Non-VA AMIODARONE HCL 200MG TAB TAKE ONE TABLET BY MOUTH TWICE DAILY OUTPT APIXABAN 5MG TAB (Status = Active) TAKE ONE-HALF TABLET BY MOUTH TWICE DAILY FOR PREVENTION OF BLOOD CLOTS Rx# [id number] Last Released: 01/06/23 Qty/Days Supply: Rx Expiration Date: 12/25/23 Refills Remainin Indication: FOR PREVENTION OF BLOOD CLOTS Non-VA ASPIRIN 81MG EC TAB TAKE ONE TABLET BY MOUTH EVERY DAY Non-VA ATORVASTATIN CALCIUM 20MG TAB TAKE ONE-HALF TABLET BY MOUTH OUTPT CARBOXYMETHYLCELLULOSE NA 0.5% OPH SOLN (Status = Active) INSTILL 1 DROP INTO EACH EYE TWICE DAILY Rx# [id number] Last Released: 04/04/23 Qty/Days Supply: Rx Expiration Date: 01/10/24 Refills Remainin Non-VA CHOLECALCIF 50MCG (D3-2,000UNIT) TAB TAKE ONE TABLET BY MOUTH ONCE DAILY Non-VA FENOFIBRATE 54MG TAB TAKE TWO TABLETS BY MOUTH ONCE DAILY Non-VA FINASTERIDE 5MG TAB TAKE ONE TABLET BY MOUTH ONCE DAILY Non-VA FLUTICAS 500/SALMETEROL 50 INHL DISK 60 INHL DISK 60 INHALE 1 PUFF BY MOUTH ONCE DAILY Non-VA FUROSEMIDE 40MG TAB TAKE ONE TABLET BY MOUTH TWICE DAILY OUTPT GLUCOSE 4GM CHEW TAB (Status = Discontinued) CHEW THREE TO FOUR TABLETS BY MOUTH NEEDED FOR LOW BLOOD SUGAR BELOW 70 Rx# [id number] Last Released: 07/25/23 Qty/Days Supply: Rx Expiration Date: 01/10/24 Refills Remainin OUTPT GLUCOSE 4GM CHEW TAB (Status = Active) CHEW THREE TO FOUR TABLETS BY MOUTH NEEDED FOR LOW BLOOD SUGAR BELOW 70 Rx# [id number] Last Released: 10/24/23 Qty/Days Supply: Rx Expiration Date: 08/20/24 Refills Remainin OUTPT INSULIN,ASPART (NOVOLOG PEN) INJ (Status = Pending) INJECT DIRECTED SUBCUTANEOUSLY THREE TIMES A DAY 8 units for eggs, 12 units for cereal AM, 5 units noon, 9 units dinner please hold until requested Login Date: 11/13/23 Qty/Days Supply: Refills Ordered: 1 OUTPT INSULIN,ASPART(EQV-NOVLG)100UN/M L FLXPEN (Status = Discontinued) INJECT 7 UNITS SUBCUTANEOUSLY EVERY MORNING AND INJECT 8 UNITS AT NOON AND INJECT 15 UNITS EVERY EVENING BEFORE SUPPER Rx# [id number] Last Released: 08/19/23 Qty/Days Supply: Rx Expiration Date: 08/13/24 Refills Remainin Indication: FOR DIABETES OUTPT INSULIN,GLARGINE-YFGN 100UNIT/ML PEN 3ML (Status = On Hold) INJECT 10 UNITS SUBCUTANEOUSLY TWICE DAILY Rx# [id number] Last Released: Qt Supply: Rx Expiration Date: 08/13/24 Refills Remainin Indication: FOR DIABETES OUTPT LIDOCAINE 5% OINT (Status = Active) APPLY LIBERAL AMOUNT TOPICALLY TWICE DAILY NEEDED FOR NEUROPATHY PAIN Rx# [id number] Last Released: 08/23/23 Qty/Days Supply: Rx Expiration Date: 12/17/23 Refills Remainin Indication: NEUROPATHY PAPIN Non-VA METOPROLOL TARTRATE 25MG TAB TAKE ONE-HALF TABLET BY MOUTH TWICE DAILY Non-VA TERAZOSIN HCL 5MG CAP TAKE 1 CAPSULE BY MOUTH ONCE DAILY -------- SUPPLIES -------- OUTPT GLUCOSE SENSOR FREESTYLE DEVON 2 (Status = Active) USE 1 SENSOR DIRECTED EVERY 14 DAYS Rx# [id number] Last Released: 11/12/23 Qty/Days Supply: 05/21 Rx Expiration Date: 01/28/24 Refills Remainin OUTPT GLUCOSE SENSOR FREESTYLE DEVON 2 (Status = Pending) GLUCOSE SENSOR FREESTYLE DEVON 2 USE 1 SENSOR DIRECTED EVERY 14 DAYS Renewed from Rx# [id number] Qty/Days Supply: 05/21 Login Date: 11/13/23 Refills Ordered: Elliott BUTTS MD STAFF PHYSICIAN Signed: 11/13/2023 10:02 Receipt Acknowledged By: 11/13/2023 10:36 /jus/ VICTORINA TIRADO PHARMD,[facility] PRACTITIONER 11/13/2023 ADDENDUM STATUS: COMPLETED Please reach to schedule apt as recommended by . Please schedule 60 mins FTF for Devon 3 teaching within next 2-4 weeks or further out if pt desires. /tyree TIRADO PHARMD,[facility]IN[facility]ARMAC[facility] PRACTITIONER Signed: 11/13/2023 10:39 Receipt Acknowledged By: * AWAITING SIGNATURE * [facility]
--- OUTSIDE RECORDS SUMMARY | 2024-03-26 16:27 | XMS_ITS | Encounter Summary ---
Author Name [facility] [place] [facility] [place] Address [address] [place] [id number] Care Team Providers Care Drawer Liner Name Role Phone AJAY APODACA Primary Care [...] PART A Nov 22, 2006 PART A [id number] [phone] TONY CASTELLON PATIENT MEDICARE (WNR) MEDICARE (M) PART B Nov 22, 2006 PART B [id number] TONY CASTELLON PATIENT MEDICARE (WNR) MEDICARE (M) PART B Nov 22, 2006 PART B [id number] TONY CASTELLON PATIENT MEDICARE (WNR) MEDICARE (M) PART A Nov 22, 2006 PART A [id number] TONY CASTELLON PATIENT FOR LIFE TFL* Apr 20, 2014 [id number] SUKHJINDER CASTELLON JR PATIENT Selected Encounter This section includes the information on record at [place] for the Encounter. 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 Date/Time Primary/Secondary Diagnosis Diagnosis Name Provider Source Nov 13, 2023 03:09 PM PRIMARY Type 2 diabetes mellitus with unspecified complications MIAH BUTTS [place] [facility] [place] [facility] Plan of Treatment: Future Appointments (+ 6 months) and Future Tests (+/- 45 days) The Plan of Treatment section includes future care activities for the patient from all [place] [facility]. This section includes future appointments [...] 31, 2023 02:00 PM AMBULATORY - [place]ICINE [place] [facility] [place] [facility] Jan 06, 2024 09:30 AM AMBULATORY [place]ICINE [place] [facility] [place] [facility] Jan 13, 2024 03:00 PM AMBULATORY [place]ICINE [place] [facility] [place] [facility] Jan 19, 2024 08:30 AM AMBULATORY - REHAB MEDICIN [place] [facility] [place] [facility] Feb 23, 2024 03:00 PM AMBULATORY - [place]ICINE [place] [facility] [place] [facility] Mar 03, 2024 02:00 PM AMBULATORY - [place]ICINE [place] [facility] [place] [facility] Mar 03, 2024 02:30 PM AMBULATORY [place]ICINE [place] [facility] [place] [facility] Mar 30, 2024 03:00 PM AMBULATORY - [place]ICINE [place] [facility] [place] [facility] Mar 31, 2024 02:30 PM AMBULATORY [place]ICINE [place] [facility] [place] [facility] Apr 07, 2024 08:00 AM AMBULATORY [place]ICINE [place] [facility] [place] [facility] Active, Pending, and Scheduled Orders This section includes a listing of several types of active, pending, and scheduled orders, including clinic medications orders, diagnostic test orders, procedure orders and consult orders; where the start date of the order is 45 days before the date of the Encounter or 45 days after the date of theEncounter. The data comes from all [place] treatment facilities. Test Date/Time Test Type Test Details Facility Name Nov 13, 2023 12:00 AM Laboratory - Chemi stry Order BASIC METABOLIC PANEL (non-fasting) BLOOD (SST-SERUM) SP [facility] Lab Results: +/- 30 days of the [...] Range Comment Nov 11, 2023 09:05 AM [facility] BASIC METABOLIC PANEL (non-fasting) Specimen Type: SERUM No comment entered. Ordering Provider: MIAH BUTTS Report Released Date/Time: Nov 05, 2023 04:26 PM Reporting Lab: [facility] [address] [facility] [address] Performing Lab: [facility] [address] [facility] [address] UREA NITROGEN 39 mg/dL H 7-25 GLUCOSE 412 mg/dL H 65-100 SODIUM 132 mmol/L L 135-145 POTASSIUM 4.6 mmol/L 3.5-5.0 CHLORIDE 101 mmol/L 100-110 CO2 19 meq/L L 20-30 CREATININE, Serum 1.99 mg/dL H 0.50-1.40 eGFR(CKD-EPI 2020) 33 mL/min L >60 Nov 05, 2023 07:31 AM [facility] LIPID PANEL, NON FASTING Specimen Type: SERUM No comment entered. Ordering Provider: MIAH BUTTS Report Released Date/Time: Oct 23, 2023 03:32 PM Reporting Lab: [facility] [address] [facility] [address] Performing Lab: [facility] [address] [facility] [address] CHOLESTEROL 140 mg/dL TRIGLYCERIDE 94 mg/dL 0-150 LDL calculated 72 mg/dL 0-129 CHOL/HDL 2.9 HDL CHOLESTEROL 49 mg/dL 40-60 Nov 05, 2023 07:31 AM [facility] BASIC METABOLIC PANEL (non-fasting) Specimen Type: SERUM No comment entered. Ordering Provider: MIAH BUTTS Report Released Date/Time: Oct 23, 2023 03:32 PM Reporting Lab: [facility] [address] [facility] [address] Performing Lab: [facility] [address] [facility] [address] UREA NITROGEN 49 mg/dL H 7-25 GLUCOSE 198 mg/dL H 65-100 SODIUM 135 mmol/L 135-145 POTASSIUM 4.5 mmol/L 3.5-5.0 CHLORIDE 102 mmol/L 100-110 CO2 20 meq/L 20-30 CREATININE, Serum 2.33 mg/dL H 0.50-1.40 eGFR(CKD-EPI 2020) 27 mL/min L >60 Nov 05, 2023 07:31 AM [facility] HEMOGLOBIN A1C PANEL Specimen Type: BLOOD Comment: [...] Oct 23, 2023 03:32 PM Reporting Lab: [facility] [address] [facility] [address] Performing Lab: [address] [address] HEMOGLOBIN A1C 8.1 H 4.0-5.6 Nov 05, 2023 07:31 AM [facility] MICROALBUMIN CREATININE RATIO PANEL Specimen Type: URINE No comment entered. Ordering Provider: MIAH BUTTS Report Released Date/Time: Oct 23, 2023 03:32 PM Reporting Lab: [facility] [address] [facility] [address] Performing Lab: [place] [facility] [place] [facility] [address] [facility] [address] MICROALBUMIN/C REATININE RATIO canc mg/g 0-29.9 MICROALBUMIN,Q UANTITATIVE < 0.5 mg/dL RR UNAVAIL CREATININE URINE 18.58 mg/dL Vital Signs: All taken on the encounter date This section contains inpatient and outpatient Vital Signs collected on the date of the Encounter. Date/Time Temperature Pulse Blood Pressure Respiratory Rate SP02 Pain Height Weight Body Mass Index Source Nov 13, 2023 09:26 AM 97.9 98 109/62 16 96 0 66 177 29 [place] [facility] [place] [facility] Social History: Smoking Status (Most current) [...] took place. Date/Time Current Smoking Status Comment [facility] it Dec 24, 2022 10:30 AM VA-TOBACCO QUIT 15 YRS OR MORE [place] [facility] Tobacco Use History This section includes a history of the smoking, or tobacco-related health factors, that were collected on or before the date of the Encounter. The data comes from the [place] facility where the Encounter took place. Date/Time Smoking Status/Tobac co Use Comment Facility Dec 24, 2022 10:30 AM VA-TOBACCO QUIT 15 YRS OR MORE [facility] [place] [facility] Dec 24, 2021 10:00 AM VA-TOBACCO FORMER USER [facility] [place] [facility] Dec 24, 2021 10:00 AM VA-TOBACCO QUIT 5 TO < 15 YRS [facility] [place] [facility] Dec 14, 2020 08:30 AM VA-TOBACCO FORMER USER [facility] [place] [facility] Dec 14, 2020 08:30 AM VA-TOBACCO QUIT 5 TO < 15 YRS [facility] [place] [facility] Nov 15, 2019 11:00 AM VA-TOBACCO FORMER USER [facility] [place] [facility] Nov 15, 2019 11:00 AM VA-TOBACCO QUIT 5 TO < 15 YRS [facility] Oct 20, 2017 08:19 AM VA-TOBACCO FOR[facility] USER [facility] Oct 20, 2017 08:19 AM VA-TOBACCO QUIT 5 TO < 15 YRS [facility] Sep 04, 2017 11:09 AM QUIT TOBACCO USE > 7 YEARS AGO [facility] Oct 16, 2016 09:08 AM QUIT TOBACCO USE > 7 YEARS AGO [facility] Feb 20, 2015 10:58 AM QUIT TOBACCO USE > 7 YEARS AGO quit 2009-cigarettes and cigars for 45 years [facility] Advance Directives: All historical and current Section Date Range: From patient's date of to the date document was created. This section includes ALL of a patient's completed or amended [place] Advance and Rescinded Directives. The entries below indicate that a directive exists for the patient, but an actual copy is not included with this document. The data comes from all [place] facilities. Date Advance Directives Provider Source Mar 23, 2014 ADVANCE DIRECTIVE ROSALINDA SHELBY [facility] Encounter Notes: All associated encounter notes This section contains the clinical notes associated to the Encounter. Date/Time Encounter Note(s) Provider Source Nov 13, 2023 03:09 PM PHYSICIAN NOTE: LOCAL TITLE: NOTE STANDARD TITLE: PHYSICIAN NOTE DATE OF NOTE: NOV 13, 2023@15:09 ENTRY DATE: NOV 13, 2023@15:09:49 AUTHOR: MIAH BUTTSIGNER: URGENCY: STATUS: COMPLETED Dx: Diabetes mellitus type 2 Pt Name: Tony Maddoxann marie Pt : 1940 MR# [id number] Indication for device placement Date placed: Oct 31 2023 Date removed (date to which the CPT code is linked): Nov 13 2023 Name of device placed: Freestyle josias 2 date of printout of data: Date of interpretation: Nov 12 Analysis of data (72 hours or more of monitoring required): Capture 91% Average 214 GMI 8.4% SD 32.7% Very high 27% High 36% In range 37% Low 0% Very Low 0% MN 176, 4AM 209, 8AM 306, noon 243, 4PM 171, 8PM 162 Variability wider Interpretation of data He would benefit from an increase in bfast bolus insulin, a derease in bolus insulin for lunch, and consistency in basal insulin dose. CPT code for interpretation [id number] /jus/ MIAH BUTTS MD STAFF PHYSICIAN Signed: 11/13/2023 18:24 [facility]
--- OUTSIDE RECORDS SUMMARY | 2024-03-26 16:27 | XMS_ITS ---
Author Name [facility] [place] Address [address] [place] [address] Care Team Providers Care Esthetician/Spa Coordinator Name Role Phone AJAY APODACA Primary [...] PART A Nov 22, 2006 PART A [id number] TONY CASTELLON PATIENT MEDICARE (WNR) MEDICARE (M) PART B Nov 22, 2006 PART B [id number] TONY CASTELLON PATIENT MEDICARE (WNR) MEDICARE (M) PART A Nov 22, 2006 PART A [id number] TONY CASTELLON PATIENT MEDICARE (WNR) MEDICARE (M) PART B Nov 22, 2006 PART B [id number] TONY CASTELLON PATIENT FOR LIFE TFL* Apr 20, 2014 [id number] SUKHJINDER CASTELLON JR PATIENT Selected Encounter This section includes the information on record at [place] for the Encounter. Date/Time Encounter Type Encounter Description Reason Pro vider Source Aug 28, 2023 02:00 PM Outpatient Encounter ADMIN PAT ACTIVTIES (MASNONCT) IHE Encounter Template Text not used by [place] Plan of Treatment: Future Appointments (+ 6 months) and Future Tests (+/- 45 days) The Plan of Treatment section includes future care activities for the patient from all [place] treatmentfacilities. This section includes future appointments and [...] 04, 2023 11:00 AM AMBULATORY - MEDICINE [facility] [place] [facility] Sep 23, 2023 09:00 AM AMBULATORY - MEDICINE [facility] [facility] Nov 13, 2023 09:30 AM [facility] [place] [facility] Dec 31, 2023 02:00 PM AMBULATORY - MEDICINE [facility] [place] [facility] Jan 06, 2024 09:30 AM AMBULATORY - MEDICINE [facility] [place] [facility] Jan 13, 2024 03:00 PM AMBULATORY - MEDICINE [facility] Jan 19, 2024 08:30 AM [facility] Feb 23, 2024 03:00 PM [facility] Lab Results: +/- 30 days of the encounter This section includes the Chemistry and Hematology Lab Results on record with [place] for the patient. Radiology Reports and Pathology Reports are provided separately, in subsequent sections. Lab Results This section contains the Chemistry/Hematology Results that were resulted 30 days before or 30 daysafter the date of the Encounter. Date/Time Source Result Type Result - Unit Interpretation Reference Range Comment August 17, 2023 05:30 [facility] OCCULT BLOOD FIT X1 SCREEN(IN-HOUSE) Specimen Type: FECES No comment entered. Ordering Provider: MOE MARKS Report Released Date/Time: August 14, 2023 03:34 PM Reporting Lab: [facility] [place] [facility] [address] [facility] [address] Performing Lab: [place] [facility] [address] [facility] [address] OCCULT BLOOD (FIT)#1 OF 1 Negative NEG August 15, 2023 08:59 AM [facility] [place] [place] [facility] FOLATE (WROX) Specimen Type: SERUM No comment entered. Ordering Provider: MOE MARKS Report Released Date/Time: August 14, 2023 03:34 PM Reporting Lab: [facility] [place] [facility] [address] [facility] [address] Performing Lab: [place] [facility] [address] [facility] [address] FOLATE (WROX) 13.92 ng/mL >5.2 August 15, 2023 08:59 AM [facility] FERRITIN Specimen Type: SERUM No comment entered. Ordering Provider: MOE MARKS Report Released Date/Time: August 14, 2023 03:34 PM Reporting Lab: [facility] [place] [facility] [address] [facility] [address] Performing Lab: [facility] [place] [facility] [address] [facility] [address] FERRITIN 108 ng/mL 20-300 August 15, 2023 08:59 AM [facility] VITAMIN B12 Specimen Type: SERUM No comment entered. Ordering Provider: MOE MARKS Report Released Date/Time: August 14, 2023 03:34 PM Reporting Lab: [facility] [place] [facility] [address] [facility] [address] Performing Lab: [facility] [place] [facility] [address] [facility] [address] VITAMIN B12 284 pg/mL 200-900 August 15, 2023 08:59 AM [facility] IRON & TIBC PANEL Specimen Type: SERUM No comment entered. Ordering Provider: MOE MARKS Report Released Date/Time: August 14, 2023 03:34 PM Reporting Lab: [facility] [address] [facility] [address] Performing Lab: [facility] [address] [facility] [address] TIBC 380 ug/dL 204-475 IRON 71 ug/dL 40-160 Transferrin Saturation 18.7 L 20.0-50.0 August 15, 2023 08:59 AM [facility] CBC AND DIFF (AUTO) Specimen Type: BLOOD No comment entered. Ordering Provider: MOE MARKS Report Released Date/Time: August 14, 2023 03:34 PM Reporting Lab: [facility] [address] [facility] [address] Performing Lab: [facility] [address] [facility] [address] WBC 5.70 10*3/uL 4.50-11.00 RBC 3.35 10*6/uL L 4.23-5.66 HGB 10.3 g/dL L 12.8-17 HCT 32.9 L 39.2-50.4 MCV 98.2 fL 82-99 MCHC 31.3 g/dL 30.8-35.1 PLT 303 10*3/uL 140-360 RDW-CV 14.2 12.0-16.0 Moore, Abs 0.63 10*3/uL 0.30-1.10 MCH 30.7 pg 26.2-32.6 Neut % 73.0 43.7-75.8 Lymph % 14.2 14.0-42.3 Moore % 11.1 5.1-13.7 Eos % 0.4 0.4-6.8 Baso % 0.4 0.1-2.0 Neut, Abs 4.17 10*3/uL 2.20-7.60 Lymph, Abs 0.81 10*3/uL L 1.00-3.20 Eos, Abs 0.02 10*3/uL L 0.03-0.44 Baso, Abs 0.02 10*3/uL 0.01-0.13 Immature Gran % 0.9 H 0.0-0.7 Immature Gran, Abs 0.05 10*3/uL 0.00-0.06 August 06, 2023 07:31 AM [facility] LIVER FUNCTION Specimen Type: SERUM No comment entered. Ordering Provider: GEORGINA ARITA Report Released Date/Time: Jun 06, 2023 11:30 AM Reporting Lab: [facility] [address] [facility] [address] Performing Lab: [facility] [address] [facility] [address] PROTEIN,TOTAL 6.4 g/dL 6.0-8.3 ALBUMIN 3.0 g/dL L 3.5-5.0 ALKALINE PHOSPHATASE 61 U/L 40-150 AST 22 U/L 5-34 ALT 24 U/L BILIRUBIN, TOTAL 0.7 mg/dL 0.2-1.2 August 06, 2023 07:31 AM [facility] CBC AND DIFF (AUTO) Specimen Type: BLOOD No comment entered. Ordering Provider: GEORGINA ARITA Report Released Date/Time: Jun 06, 2023 11:30 AM Reporting Lab: [facility] [address] [facility] [address] Performing Lab: [facility] [address] [facility] [address] WBC 7.50 10*3/uL 4.50-11.00 RBC 3.17 10*6/uL L 4.23-5.66 HGB 9.8 g/dL L 12.8-17 HCT 31.1 L 39.2-50.4 MCV 98.1 fL 82-99 MCHC 31.5 g/dL 30.8-35.1 PLT 181 10*3/uL 140-360 RDW-CV 14.2 12.0-16.0 Moore, Abs 0.70 10*3/uL 0.30-1.10 MCH 30.9 pg 26.2-32.6 Neut % 79.2 H 43.7-75.8 Lymph % 10.1 L 14.0-42.3 Moore % 9.3 5.1-13.7 Eos % 0.3 L 0.4-6.8 Baso % 0.4 0.1-2.0 Neut, Abs 5.94 10*3/uL 2.20-7.60 Lymph, Abs 0.76 10*3/uL L 1.00-3.20 Eos, Abs 0.02 10*3/uL L 0.03-0.44 Baso, Abs 0.03 10*3/uL 0.01-0.13 Immature Gran % 0.7 0.0-0.7 Immature Gran, Abs 0.05 10*3/uL 0.00-0.06 August 06, 2023 07:31 AM [facility] HEMOGLOBIN A1C PANEL Specimen Type: BLOOD Comment: Values obtained from A1C measurements can vary. For atypical A1C assays, a reported value of 7.0 could actually be between 6.72 and 7.28 if measured by a reference method. A reported value of 9.0 could actually be between 8.73 and 9.27. Ref: http://www.[employer]ingo[email or web address]/CAPdata. asp Ordering Provider: MIAH BUTTS Report Released Date/Time: May 07, 2023 02:07 PM Reporting Lab: [address] [address] Performing Lab: [address] [address] HEMOGLOBIN A1C 7.7 H 4.0-5.6 August 06, 2023 07:31 AM [facility] BASIC METABOLIC PANEL (non-fasting) Specimen Type: SERUM No comment entered. Ordering Provider: MIAH BUTTS Report Released Date/Time: May 07, 2023 02:07 PM Reporting Lab: [address] [address] Performing Lab: [address] [address] UREA NITROGEN 31 mg/dL H 7-25 GLUCOSE [...] took place. Date/Time Current Smoking Status Comment [facility] it Dec 24, 2022 10:30 AM VA-TOBACCO FOR[facility] [place] [facility] Tobacco Use History This section includes a history of the smoking, or tobacco-related health factors, that were collected on or before the date of the Encounter. The data comes from the [place] facility where the Encounter took place. Date/Time Smoking Status/Tobac co Use Comment Facility Dec 24, 2022 10:30 AM VA-TOBACCO QUIT 15 YRS OR MORE [place] [facility] Dec 24, 2021 10:00 AM VA-TOBACCO FORMER USER [place] [facility] Dec 24, 2021 10:00 AM VA-TOBACCO QUIT 5 TO < 15 YRS [place] [facility] Dec 14, 2020 08:30 AM VA-TOBACCO FORMER USER [place] [facility] Dec 14, 2020 08:30 AM VA-TOBACCO QUIT 5 TO < 15 YRS [place] [facility] Nov 15, 2019 11:00 AM VA-TOBACCO FORMER USER [place] [facility] Nov 15, 2019 11:00 AM VA-TOBACCO QUIT 5 TO < 15 YRS [place] [facility] [place] [facility] Oct 20, 2017 08:19 AM VA-TOBACCO FORMER USER [place] [place] [facility] Oct 20, 2017 08:19 AM VA-TOBACCO QUIT 5 TO < 15 YRS [place] [facility] Sep 04, 2017 11:09 AM QUIT TOBACCO USE > 7 YEARS AGO [facility] [place] [facility] Oct 16, 2016 09:08 AM QUIT TOBACCO USE > 7 YEARS AGO [facility] [place] [facility] Feb 20, 2015 10:58 AM QUIT TOBACCO USE > 7 YEARS AGO quit 2009-cigarettes and cigars for 45 years [place] [facility] Advance Directives: All historical and current [...] Provider Source Mar 23, 2014 ADVANCE DIRECTIVE HERONROSALINDA WOODWARD [facility] Encounter Notes: All associated encounter notes This section contains the clinical notes associated to the Encounter. Date/Time Encounter Note(s) Provider Source Sep 01, 2023 10:51 AM ADDENDUM: LOCAL TITLE: Addendum STANDARD TITLE: ADDENDUM DATE OF NOTE: SEP 01, 2023@10:51 ENTRY DATE: SEP 01, 2023@10:51:01 AUTHOR: JOSH MARKS COSIGNER: URGENCY: STATUS: COMPLETED Alert AMSA, Vet likely calling back in response to your call to schedule PCP follow up from 08/28/23 to f/u on new, stable anemia. /jus/ JOSH MARKS NP NURSE PRACTITIONER Signed: 09/01/2023 10:51 Receipt Acknowledged By: 09/01/2023 11:13 /jus/ NARA MARTIN ADVANCED SENIOR CLINICAL DATA MANAGER === --- Original Document --- 08/28/23 CCC: SCHEDULING ADMINISTRATION: Patient Demographics Patient Name: TONY CASTELLON Patient Primary Phone: [phone] Patient Primary Address: [address] [place] [id number] Patient : 1940 Patient Age: 82 Caller/Recipient Relation to Patient: Self Administrative Administrative Note Reason: Other Administrative Note Comments: vet states returning call to pact assembly instructions writer doesnt see note vet asking for call back and states to leave message about what is needed /es/ AP A CHRISTELLE ccc v1 amsa Signed: 08/28/2023 14:00 Receipt Acknowledged By: 08/28/2023 14:41 /jus/ Crow Chilel, Health Manager Of Program FOUNDRY OPERATOR,PRIMARY CARE 08/28/2023 14:12 /jus/ Shae Snow MSN RN CNL Primary Care RN 08/28/2023 ADDENDUM STATUS: COMPLETED PACT did not reach out, unknown what call Vet received. /jus/ Shae Snow MSN RN CNL Primary Care RN Signed: 08/28/2023 14:13 JOSH MARKS [place] [facility] Aug 28, 2023 02:00 PM ADMINISTRATIVE NOTE: LOCAL TITLE: CCC: SCHEDULING ADMINISTRATION STANDARD TITLE: ADMINISTRATIVE NOTE DATE OF NOTE: AUG 28, 2023@14:00:37 ENTRY DATE: AUG 28, 2023@14:00:37 AUTHOR: AP BOURGEOIS COSIGNER: URGENCY: STATUS: COMPLETED CCC: SCHEDULING ADMINISTRATION Has ADDENDA Patient Demographics Patient Name: TONY CASTELLON Patient Primary Phone: [phone] Patient Primary [address]: [address] [place] [id number] Patient : 1940 Patient Age: 82 Caller/Recipient Relation to Patient: Self Administrative Administrative Note Reason: Other Administrative Note Comments: vet states returning call to pact assembly instructions writer doesnt see note vet asking for call back and states to leave message about what is needed /jus/ AP BOURGEOIS [facility] v1 amsa Signed: 08/28/2023 14:00 Receipt Acknowledged By: 08/28/2023 14:41 /jus/ Crow Chilel, Health Manager Of Program FOUNDRY OPERATOR,PRIMARY CARE 08/28/2023 14:12 /jus/ Shae Snow MSN RN CNL Primary Care RN 08/28/2023 ADDENDUM STATUS: COMPLETED PACT did not reach out, unknown what call Vet received. /tyree Snow MSN RN CNL Primary Care RN Signed: 08/28/2023 14:13 09/01/2023 ADDENDUM STATUS: COMPLETED Alert AMSA, Vet likely calling back in response to your call to schedule PCP follow up from 08/28/23 to f/u on new, stable anemia. /es/ JOSH MARKS NP NURSE PRACTITIONER Signed: 09/01/2023 10:51 Receipt Acknowledged By: 09/01/2023 11:13 /jus/ NARA MARTIN ADVANCED SENIOR CLINICAL DATA MANAGER 09/01/2023 ADDENDUM STATUS: COMPLETED AMSA LEFT A VOICEMAIL AND REQUESTED A CALL BACK [phone] EXT [phone]. /es/ NARA MARTIN ADVANCED SENIOR CLINICAL DATA MANAGER Signed: 09/01/2023 11:15 AP BOURGEOIS [place] [facility]
--- OUTSIDE RECORDS SUMMARY | 2024-03-26 16:27 | XMS_ITS | Encounter Summary ---
Author Name [facility] [place] Address [address] [place] [address] Care Team Providers Care Pilot Plant Operator Helper Name Role Phone ABAD RUSSELL Primary Care Provider Unavaila ble Insurance [...] PART A Nov 22, 2006 PART A [id number] [phone] TONY CASTELLON PATIENT MEDICARE (WNR) MEDICARE (M) PART B Nov 22, 2006 PART B [id number] TONY CASTELLON PATIENT MEDICARE (WNR) MEDICARE (M) PART A Nov 22, 2006 PART A [id number] TONY CASTELLON PATIENT MEDICARE (WNR) MEDICARE (M) PART B Nov 22, 2006 PART B [id number] TONY CASTELLON PATIENT FOR LIFE TFL* Apr 20, 2014 [id number] SUKHJINDER CASTELLON JR PATIENT Selected Encounter This section includes the information on record at [place] for the Encounter. Date/Time Encounter Type Encounter Description Reason Provider Source Nov 05, 2023 04:29 PM Outpatient Encounter TELEPHONE/MEDICI [place] ICD-10-CM E11.8 Type 2 diabetes mellitus with unspecified complications MIAH BUTTS Jose Encounter Template Text not used by [place] Assessments - Encounter Diagnoses This section includes the primary and secondary diagnoses documented for the Encounter. Date/Time Primary/Secondary Diagnosis Diagnosis Name Provider Source Nov 05, 2023 04:29 PM PRIMARY Type 2 diabetes mellitus with unspecified complications [facility] [place] [facility] [place] [facility] Nov 05, 2023 04:29 PM SECONDARY Chronic kidney disease, unspecified [facility] [place] [facility] [place] [facility] Nov 05, 2023 04:29 PM SECONDARY Type 2 diabetes mellitus w diabetic chronic kidney disease [facility] [place] [facility] Plan of Treatment: Future Appointments (+ 6 months) and Future Tests (+/- 45 days) The Plan of Treatment section includes future care activities for the [facility] [place] [facility] This section includes future appointments and future orders which are active, pending or scheduled. Future Appointments This section includes appointments that were scheduled to occur 6 months from the date of the Encounter, up to a maximum of 20 appointments. The data comes from all [place] treatment facilities. Appointment Date/Time Appointment Type Appointme nt Facility Name Nov 13, 2023 09:30 AM AMBULATORY - MEDICINE [place] [facility] Dec 31, 2023 02:00 PM AMBULATORY - MEDICINE [place] [facility] Jan 06, 2024 09:30 AM AMBULATORY - MEDICINE [place] [facility] Jan 13, 2024 03:00 PM AMBULATORY - MEDICINE [place] [facility] Jan 19, 2024 08:30 AM AMBULATORY - REHAB MEDICIN E [place] [facility] [place] [facility] Feb 23, 2024 03:00 PM AMBULATORY - MEDICINE [place] [facility] Mar 03, 2024 02:00 PM AMBULATORY - MEDICINE [place] [facility] Mar 03, 2024 02:30 PM AMBULATORY - MEDICINE [place] [facility] Mar 30, 2024 03:00 PM AMBULATORY - MEDICINE [place] [facility] Mar 31, 2024 02:30 PM AMBULATORY - MEDICINE [facility] Apr 07, 2024 08:00 AM AMBULATORY - MEDICINE [facility] Active, Pending, and Scheduled Orders This section includes a listing of several types of active, pending, and scheduled orders, including clinic medications orders, diagnostic test orders, procedure orders and consult orders; where the start date of the order is 45 days before the date of the Encounter or 45 days after the date of theEncounter. The data comes from all [place] treatment facilities. Test Date/Time Test Type Test Details Facility Name Nov 13, 2023 12:00 AM Laboratory - Chemi stry Order BASIC METABOLIC PANEL (non-fasting) BLOOD (SST-SERUM) [facility] Lab Results: +/- 30 days [...] Range Comment Nov 11, 2023 09:05 AM [facility] BASIC METABOLIC PANEL (non-fasting) Specimen Type: SERUM No comment entered. Ordering Provider: MIAH BUTTS Report Released Date/Time: Nov 05, 2023 04:26 PM Reporting Lab: [address] [address] Performing Lab: [address] [address] UREA NITROGEN 39 mg/dL H 7-25 GLUCOSE 412 mg/dL H 65-100 SODIUM 132 mmol/L L 135-145 POTASSIUM 4.6 mmol/L 3.5-5.0 CHLORIDE 101 mmol/L 100-110 CO2 19 meq/L L 20-30 CREATININE, Serum 1.99 mg/dL H 0.50-1.40 eGFR(CKD-EPI 2020) 33 mL/min L >60 Nov 05, 2023 07:31 AM [facility] LIPID PANEL, NON FASTING Specimen Type: SERUM No comment entered. Ordering Provider: MIAH BUTTS Report Released Date/Time: Oct 23, 2023 03:32 PM Reporting Lab: [facility] [address] [facility] [address] Performing Lab: [facility] [address] [facility] [address] CHOLESTEROL 140 mg/dL TRIGLYCERIDE 94 mg/dL 0-150 LDL calculated 72 mg/dL 0-129 CHOL/HDL 2.9 HDL CHOLESTEROL 49 mg/dL 40-60 Nov 05, 2023 07:31 AM [facility] BASIC METABOLIC PANEL (non-fasting) Specimen Type: SERUM No comment entered. Ordering Provider: MIAH BUTTS Report Released Date/Time: Oct 23, 2023 03:32 PM Reporting Lab: [facility] [address] [facility] [address] Performing Lab: [address] [address] UREA NITROGEN 49 mg/dL H 7-25 GLUCOSE 198 mg/dL H 65-100 SODIUM 135 mmol/L 135-145 POTASSIUM 4.5 mmol/L 3.5-5.0 CHLORIDE 102 mmol/L 100-110 CO2 20 meq/L 20-30 CREATININE, Serum 2.33 mg/dL H 0.50-1.40 eGFR(CKD-EPI 2020) 27 mL/min L >60 Nov 05, 2023 07:31 AM [facility] HEMOGLOBIN A1C PANEL Specimen Type: BLOOD [...] Oct 23, 2023 03:32 PM Reporting Lab: [facility] [address] [facility] [address] Performing Lab: [address] [address] HEMOGLOBIN A1C 8.1 H 4.0-5.6 Nov 05, 2023 07:31 AM [facility] MICROALBUMIN CREATININE RATIO PANEL Specimen Type: URINE No comment entered. Ordering Provider: MIAH BUTTS Report Released Date/Time: Oct 23, 2023 03:32 PM Reporting Lab: [facility] [address] [facility] [address] Performing Lab: [facility] [address] [facility] [address] MICROALBUMIN/C REATININE RATIO canc mg/g 0-29.9 MICROALBUMIN,Q UANTITATIVE < 0.5 mg/dL RR UNAVAIL CREATININE URINE 18.58 mg/dL Social History: Smoking Status (Most current) and [...] place. Date/Time Current Smoking Status Comment [facility] Dec 24, 2022 10:30 AM VA-TOBACCO [facility]ER [facility] Tobacco Use History This section includes a history of the smoking, or tobacco-related health factors, that were collected on or before the date of the Encounter. The data comes from the [place] facility where the Encounter took place. Date/Time Smoking Status/Tobac co Use Comment Facility Dec 24, 2022 10:30 AM VA-TOBACCO QUIT 15 YRS OR MORE [place] [place] [facility] Dec 24, 2021 10:00 AM VA-TOBACCO FORMER USER [place] [facility] [place] [facility] Dec 24, 2021 10:00 AM VA-TOBACCO QUIT 5 TO < 15 YRS [place] [facility] [place] [facility] Dec 14, 2020 08:30 AM VA-TOBACCO FORMER USER [place] [facility] [place] [facility] Dec 14, 2020 08:30 AM VA-TOBACCO QUIT 5 TO < 15 YRS [facility] [place] [facility] Nov 15, 2019 11:00 AM VA-TOBACCO FORMER USER [place] [facility] [place] [facility] Nov 15, 2019 11:00 AM VA-TOBACCO QUIT 5 TO < 15 YRS [facility] Oct 20, 2017 08:19 AM VA-TOBACCO FOR[facility]ER [facility] Oct 20, 2017 08:19 AM VA-TOBACCO QUIT 5 TO < 15 YRS [facility] Sep 04, 2017 11:09 AM QUIT TOBACCO USE > 7 YEARS AGO [facility] Oct 16, 2016 09:08 AM QUIT TOBACCO USE > 7 YEARS AGO [facility] Feb 20, 2015 10:58 AM QUIT TOBACCO USE > 7 YEARS AGO quit 2009-cigarettes and cigars for 45 years [facility] Advance Directives: All historical and current [...] Mar 23, 2014 ADVANCE DIRECTIVE ROSALINDA SHELBY [facility] Encounter Notes: All associated encounter notes This section contains the clinical notes associated to the Encounter. Date/Time Encounter Note(s) Provider Source Nov 05, 2023 04:29 PM PHYSICIAN NOTE: LOCAL TITLE: NOTE STANDARD TITLE: PHYSICIAN NOTE DATE OF NOTE: NOV 05, 2023@16:29 ENTRY DATE: NOV 05, 2023@16:29:45 AUTHOR: MIAH BUTTS COSIGNER: URGENCY: STATUS: COMPLETED DM 2 Spoke with pt. He has an increase in creat. This could be due to furosemide. He had a CT with IV contrast last week. We have an appt next week. BMP Next week. Discussed all endocrine labs. After repeat bloodwork, he will contact cardiology regarding his change in creat. 10 min telephone encounter. /jus/ MIAH BUTTS MD STAFF PHYSICIAN Signed: 11/05/2023 16:36 Receipt Acknowledged By: 11/06/2023 06:44 /jus/ Abad Russell DNP, CERTIFIED ORTHOTIST PRACTICE MANAGER-BC, CNL Primary Care Nurse Practitioner [facility]
--- OUTSIDE RECORDS SUMMARY | 2024-03-26 16:27 | XMS_ITS ---
Author Name [place] Organization [place] Address [address] [place] [address] Care Team Providers Care Make Up Operator Helper Name Role Phone AJAY APODACA Primary Care [...] PART A Nov 22, 2006 PART A [id number] TONY CASTELLON PATIENT MEDICARE (WNR) MEDICARE (M) PART B Nov 22, 2006 PART B [id number] TONY CASTELLON PATIENT MEDICARE (WNR) MEDICARE (M) PART A Nov 22, 2006 PART A [id number] [id number] TONY CASTELLON PATIENT MEDICARE (WNR) MEDICARE (M) PART B Nov 22, 2006 PART B [id number] [id number] [id number] TONY CASTELLON PATIENT FOR LIFE TFL* Apr 20, 2014 [id number] SUKHJINDER CASTELLON JR PATIENT Selected Encounter This section includes the information on record at [place] for the Encounter. Date/Time Encounter Type Encounter Description Reason Pro vider Source Dec 09, 2023 04:07 PM Outpatient Encounter TELEPHONE PRIMARY CARE IHE Encounter Template Text not used by [place] Plan of Treatment: Future Appointments (+ 6 months) and Future Tests (+/- 45 days) The Plan of Treatment section includes future care activities for the patient from all [place] [facility] This section includes future appointments and future orders which are active, pending or scheduled. Future Appointments This section includes appointments that were scheduled to occur 6 months from the date of the Encounter, up to a maximum of 20 appointments. The data comes from all [facility]. Appointment Date/Time Appointment Type Appointme nt Facility Name Dec 31, 2023 02:00 PM AMBULATORY - [place]ICINE [place] [facility] Jan 06, 2024 09:30 AM AMBULATORY - [place]ICINE [place] [facility] Jan 13, 2024 03:00 PM AMBULATORY - [place]ICINE [place] [facility] Jan 19, 2024 08:30 AM AMBULATORY - REHAB MEDICIN E [place] [facility] [place] [facility] Feb 23, 2024 03:00 PM AMBULATORY - [place]ICINE [place] [facility] Mar 03, 2024 02:00 PM AMBULATORY - MEDICINE [place] [facility] Mar 03, 2024 02:30 PM AMBULATORY - MEDICINE [place] [facility] Mar 30, 2024 03:00 PM AMBULATORY - MEDICINE [place] [facility] Mar 31, 2024 02:30 PM AMBULATORY - [place]ICINE [place] [facility] Apr 07, 2024 08:00 AM AMBULATORY - [place]ICINE [place] [facility] May 17, 2024 02:00 PM AMBULATORY - MEDICINE [place] [facility] Active, Pending, and Scheduled Orders This section includes a listing of several types of active, pending, and scheduled orders, including clinic medications orders, diagnostic test orders, procedure orders and consult orders; where the start date of the order is 45 days before the date of the Encounter or 45 days after the date of theEncounter. The data comes from all [facility]. Test Date/Time Test Type Test Details Facility Name Nov 13, 2023 12:00 AM Laboratory - Chemi stry Order BASIC METABOLIC PANEL (non-fasting) BLOOD (SST-SERUM) SP [facility] Lab Results: +/- 30 days [...] Range Comment Nov 11, 2023 09:05 AM [facility] BASIC METABOLIC PANEL (non-fasting) Specimen Type: SERUM No comment entered. Ordering Provider: MIAH BUTTS Released Date/Time: Nov 05, 2023 04:26 PM Reporting Lab: [address] [address] Performing Lab: [address] [address] UREA NITROGEN 39 mg/dL H 7-25 GLUCOSE 412 mg/dL H 65-100 SODIUM 132 mmol/L L 135-145 POTASSIUM 4.6 mmol/L 3.5-5.0 CHLORIDE 101 mmol/L 100-110 CO2 19 meq/L L 20-30 CREATININE, Serum 1.99 mg/dL H 0.50-1.40 eGFR(CKD-EPI 2020) 33 mL/min L >60 Social History: Smoking Status [...] took place. Date/Time Current Smoking Status Comment [facility] Dec 24, 2022 10:30 AM VA-TOBACCO FORMER USER [facility] Tobacco Use History This section includes a history of the smoking, or tobacco-related health factors, that were collected on or before the date of the Encounter. The data comes from the [place] facility where the Encounter took place. Date/Time Smoking Status/Tobac co Use Comment Facility Dec 24, 2022 10:30 AM [place]-TOBACCO QUIT 15 YRS OR MORE [place] [facility] [place] [facility] Dec 24, 2021 10:00 AM VA-TOBACCO FORMER USER [place] [facility] Dec 24, 2021 10:00 AM VA-TOBACCO QUIT 5 TO < 15 YRS [place] [facility] [place] [facility] Dec 14, 2020 08:30 AM VA-TOBACCO FORMER USER [place] [facility] Dec 14, 2020 08:30 AM VA-TOBACCO QUIT 5 TO < 15 YRS [place] [facility] Nov 15, 2019 11:00 AM VA-TOBACCO FORMER USER [place] [facility] Nov 15, 2019 11:00 AM VA-TOBACCO QUIT 5 TO < 15 YRS [place] [facility] [place] [facility] Oct 20, 2017 08:19 AM VA-TOBACCO FORMER USER [place] [facility] Oct 20, 2017 08:19 AM VA-TOBACCO QUIT 5 TO < 15 YRS [place] [facility] [place] [facility] Sep 04, 2017 11:09 AM QUIT TOBACCO USE > 7 YEARS AGO [place] [facility] [place] [facility] Oct 16, 2016 09:08 AM QUIT TOBACCO USE > 7 YEARS AGO [place] [facility] [place] [facility] Feb 20, 2015 10:58 AM QUIT TOBACCO USE > 7 YEARS AGO quit 2009-cigarettes and cigars for [facility] Advance Directives: All historical and current Section [...] Mar 23, 2014 ADVANCE DIRECTIVE [facility]AL[facility]DA [facility] Encounter Notes: All associated encounter notes This section contains the clinical notes associated to the Encounter. Date/Time Encounter Note(s) Provider Source Dec 09, 2023 04:07 PM PHARMACY TELEPHONE ENCOUNTER NOTE: LOCAL TITLE: TELEPHONE NOTE/PHARMACY STANDARD TITLE: PHARMACY TELEPHONE ENCOUNTER NOTE DATE OF NOTE: DEC 09, 2023@16:07 ENTRY DATE: DEC 09, 2023@16:07:45 AUTHOR: VICTORINA TIRADO EXP COSIGNER: URGENCY: STATUS: COMPLETED Please cancel the following apt as the Devon 3 sensors are currently unvailable at this time. Pt has been contacted and agreed to cancellation CWM/NO/PHARM PACT 3 12/10/23 @0830 /jus/ VICTORINA TIRADO PHARMD,[facility] PRACTITIONER Signed: 12/09/2023 16:08 Receipt Acknowledged By: 12/10/2023 08:06 /jus/ NARA MARTIN ADVANCED PROCESS CONTROL SUPERVISOR VICTORINA TIRADO [facility]
--- OUTSIDE RECORDS SUMMARY | 2024-03-26 16:27 | XMS_ITS ---
Author Name [facility] [place] Address [address] [place] [address] Care Team Providers Care Traditional Maori Health Practitioner Name Role Phone AJAY APODACA Primary Care [...] PART A Nov 22, 2006 PART A [id number] TONY CASTELLON PATIENT MEDICARE (WNR) MEDICARE (M) PART B Nov 22, 2006 PART B [id number] [id number] TONY CASTELLON PATIENT MEDICARE (WNR) MEDICARE (M) PART B Nov 22, 2006 PART B [id number] TONY CASTELLON PATIENT MEDICARE (WNR) MEDICARE (M) PART A Nov 22, 2006 PART A [id number] [id number] TONY CASTELLON PATIENT FOR LIFE TFL* Apr 20, 2014 [id number] SUKHJINDER CASTELLON JR PATIENT Selected Encounter This section includes the information on record at [place] for the Encounter. Date/Time Encounter Type Encounter Description Reason Provider Source Sep 23, 2023 09:00 AM DIABETIC CUSTOM MOLDED SHOE PODIATRY ICD-10-CM E11.42 Type 2 diabetes mellitus with diabetic polyneuropathy VALERIA CASTILLO [facility] Encounter Template Text not used by [place] Assessments - Encounter Diagnoses This section includes the primary and secondary diagnoses documented for the Encounter. Date/Time Primary/Secondary Diagnosis Diagnosis Name Provider Source Sep 23, 2023 08:55 AM PRIMARY Type 2 diabetes mellitus with diabetic polyneuropathy [facility] Plan of Treatment: Future Appointments (+ 6 months) and Future Tests (+/- 45 days) The Plan of Treatment section includes future care activities for the patient from all [place] [facility]. This section includes future appointments and future orders which are active, pending or scheduled. Future Appointments This section includes appointments that were scheduled to occur 6 months from the date of the Encounter, up to a maximum of 20 appointments. The data comes from all [place] treatment facilities. Appointment Date/Time Appointment Type Appointme nt Facility Name Nov 13, 2023 09:30 AM AMBULATORY - [place]ICINE [place] [facility] Dec 31, 2023 02:00 PM AMBULATORY - MEDICINE [facility] [place] [facility] Jan 06, 2024 09:30 AM AMBULATORY - MEDICINE [place] [facility] Jan 13, 2024 03:00 PM AMBULATORY - MEDICINE [place] [facility] Jan 19, 2024 08:30 AM AMBULATORY - REHAB MEDICIN E [place] [facility] Feb 23, 2024 03:00 PM AMBULATORY - MEDICINE [place] [facility] Mar 03, 2024 02:00 PM AMBULATORY - MEDICINE [place] [facility] Mar 03, 2024 02:30 PM AMBULATORY - MEDICINE [facility] [place] [facility] Social History: Smoking Status (Most current) and Tobacco Use (All prior to encounter date) This section includes the most current, and the historical, smoking and tobacco- related health factors from the [place] facility where the Encounter took place. Current Smoking Status This section includes the most current smoking, or tobacco-related health factor, from the [place] facility where the Encounter took place. Date/Time Current Smoking Status Comment Facil it Dec 24, 2022 10:30 AM VA-TOBACCO FORMER USER [facility] [place] [facility] Tobacco Use History This section includes a history of the smoking, or tobacco-related health factors, that were collected on or before the date of the Encounter. The data comes from the [place] facility where the Encounter took place. Date/Time Smoking Status/Tobac co Use Comment Facility Dec 24, 2022 10:30 AM VA-TOBACCO QUIT 15 YRS OR MORE [place] [facility] Dec 24, 2021 10:00 AM VA-TOBACCO FORMER USER [place] [facility] Dec 24, 2021 10:00 AM VA-TOBACCO QUIT 5 TO < 15 YRS [place] [facility] Dec 14, 2020 08:30 AM VA-TOBACCO FORMER USER [place] [facility] Dec 14, 2020 08:30 AM VA-TOBACCO QUIT 5 TO < 15 YRS [place] [facility] Nov 15, 2019 11:00 AM VA-TOBACCO FORMER USER [place] [facility] Nov 15, 2019 11:00 AM VA-TOBACCO QUIT 5 TO < 15 YRS [place] [facility] Oct 20, 2017 08:19 AM VA-TOBACCO FORMER USER [place] [facility] Oct 20, 2017 08:19 AM VA-TOBACCO QUIT 5 TO < 15 YRS [place] [facility] Sep 04, 2017 11:09 AM QUIT TOBACCO USE > 7 YEARS AGO [place] [facility] Oct 16, 2016 09:08 AM QUIT TOBACCO USE > 7 YEARS AGO [place] [facility] Feb 20, 2015 10:58 AM QUIT TOBACCO USE > 7 YEARS AGO quit 2009-cigarettes and cigars for 45 years [facility] Advance Directives: All historical and current Section Date Range: From patient's date of to the date document was created. This section includes ALL of a patient's completed or amended [place] Advance and Rescinded Directives. The entries below indicate that a directive exists for the patient, but an actual copy is not included with this document. The data comes from all [place] facilities. Date Advance Directives Provider Source Mar 23, 2014 ADVANCE DIRECTIVE ROSALINDA SHELBY [facility] Encounter Notes: All associated encounter notes This section contains the clinical notes associated to the Encounter. Date/Time Encounter Note(s) Provider Source Sep 23, 2023 08:54 AM NURSING OUTPATIENT NOTE: LOCAL TITLE: NURSING/SPECIALTY CLINIC NOTE STANDARD TITLE: NURSING OUTPATIENT NOTE DATE OF NOTE: SEP 23, 2023@08:54 ENTRY DATE: SEP 23, 2023@08:54:14 AUTHOR: VALERIA CASTILLO EXP COSIGNER: URGENCY: STATUS: COMPLETED F: Shoe Fitting D/A: Patient with diabetes received and was fitted for shoes. Instructed on the proper breaking in of the shoes. Patient informed to call with any problems or concerns. /jus/ VALERIA CASTILLO [facility] [address] Liaison Signed: 09/23/2023 08:55 VALERIA CASTILLO [facility]
--- OUTSIDE RECORDS SUMMARY | 2024-03-26 16:27 | XMS_ITS | Encounter Summary ---
Author Name [place] Address [address] [place] [id number] Care Team Providers Care Office Clin Asst Name Role Phone AJAY APODACA Primary Care [...] PART A Nov 22, 2006 PART A [id number] TONY CASTELLON PATIENT MEDICARE (WNR) MEDICARE (M) PART B Nov 22, 2006 PART B [id number] TONY CASTELLON PATIENT MEDICARE (WNR) MEDICARE (M) PART A Nov 22, 2006 PART A [id number] [id number] TONY CASTELLON PATIENT MEDICARE (WNR) MEDICARE (M) PART B Nov 22, 2006 PART B [id number] [phone] [id number] TONY CASTELLON PATIENT FOR LIFE TFL* Apr 20, 2014 [id number] SUKHJINDER CASTELLON JR PATIENT Selected Encounter This section includes the information on record at [place] for the Encounter. Date/Time Encounter Type Encounter Description Reason Provider Source Nov 13, 2023 09:29 AM CONT GLUC MNTR PT PROV EQP GENERAL INTERNAL MEDICINE ICD-10-CM E11.8 Type 2 diabetes mellitus with unspecified complications STUART CAMPOS [facility] Encounter Template Text not used by [place] Assessments - Encounter Diagnoses This section includes the primary and secondary diagnoses documented for the Encounter. Date/Time Primary/Secondary Diagnosis Diagnosis Name Provider Source Nov 13, 2023 09:29 AM PRIMARY Type 2 diabetes mellitus with unspecified complications STUART CAMPOS [place] [facility] Plan of Treatment: Future Appointments (+ 6 months) and Future Tests (+/- 45 days) The Plan of Treatment section includes future care activities for the patient from all [place] [facility] This section includes future appointments [...] 31, 2023 02:00 PM AMBULATORY - MEDICINE [place] [facility] Jan 06, 2024 09:30 AM AMBULATORY - MEDICINE [place] [facility] Jan 13, 2024 03:00 PM AMBULATORY - MEDICINE [place] [facility] Jan 19, 2024 08:30 AM AMBULATORY - REHAB MEDICIN E [place] [place] [facility] Feb 23, 2024 03:00 PM AMBULATORY - MEDICINE [place] [facility] Mar 03, 2024 02:00 PM AMBULATORY - MEDICINE [place] [facility] Mar 03, 2024 02:30 PM AMBULATORY - MEDICINE [place] [facility] Mar 30, 2024 03:00 PM AMBULATORY - MEDICINE [place] [facility] Mar 31, 2024 02:30 PM AMBULATORY - MEDICINE [place] [facility] Apr 07, 2024 08:00 AM AMBULATORY - MEDICINE [facility] [place]L [place] [facility] Active, Pending, and Scheduled Orders This section includes a listing of several types of active, pending, and scheduled orders, including clinic medications orders, diagnostic test orders, procedure orders and consult orders; where the start date of the order is 45 days before the date of the Encounter or 45 days after the date of theEncounter. The data comes from all [place] treatment facilities. Test Date/Time Test Type Test Details Facility Name Nov 13, 2023 12:00 AM Laboratory - Chemi stry Order BASIC METABOLIC PANEL (non-fasting) BLOOD (SST-SERUM) SP [facility] Lab Results: +/- 30 days of [...] Range Comment Nov 11, 2023 09:05 AM [facility] BASIC METABOLIC PANEL (non-fasting) Specimen Type: SERUM No comment entered. Ordering Provider: MIAH BUTTS Report Released Date/Time: Nov 05, 2023 04:26 PM Reporting Lab: [facility] [address] [facility] [address] Performing Lab: [address] [address] UREA NITROGEN 39 mg/dL H 7-25 GLUCOSE 412 mg/dL H 65-100 SODIUM 132 mmol/L L 135-145 POTASSIUM 4.6 mmol/L 3.5-5.0 CHLORIDE 101 mmol/L 100-110 CO2 19 meq/L L 20-30 CREATININE, Serum 1.99 mg/dL H 0.50-1.40 eGFR(CKD-EPI 2020) 33 mL/min L >60 Nov 05, 2023 07:31 AM [facility] LIPID PANEL, NON FASTING Specimen Type: SERUM No comment entered. Ordering Provider: MIAH BUTTS Report Released Date/Time: Oct 23, 2023 03:32 PM Reporting Lab: [facility] [address] [facility] [address] Performing Lab: [address] [address] CHOLESTEROL 140 mg/dL TRIGLYCERIDE 94 mg/dL 0-150 LDL calculated 72 mg/dL 0-129 CHOL/HDL 2.9 HDL CHOLESTEROL 49 mg/dL 40-60 Nov 05, 2023 07:31 AM [facility] HEMOGLOBIN A1C PANEL Specimen Type: BLOOD Comment: Values obtained from A1C measurements can vary. For atypical A1C assays, a reported value of 7.0 could actually be between 6.72 and 7.28 if measured by a reference method. A reported value of 9.0 could actually be between 8.73 and 9.27. Ref: http://www.ngs p.org/CAPdata. asp Ordering Provider: MIAH BUTST Report Released Date/Time: Oct 23, 2023 03:32 PM Reporting Lab: [address] [address] Performing Lab: [address] [address] HEMOGLOBIN A1C 8.1 H 4.0-5.6 Nov 05, 2023 07:31 AM [facility] BASIC METABOLIC PANEL (non-fasting) Specimen Type: SERUM No comment entered. Ordering Provider: MIAH BUTTS Report Released Date/Time: Oct 23, 2023 03:32 PM Reporting Lab: [address] [address] Performing Lab: [address] [address] UREA NITROGEN 49 mg/dL H 7-25 GLUCOSE 198 mg/dL H 65-100 SODIUM 135 mmol/L 135-145 POTASSIUM 4.5 mmol/L 3.5-5.0 CHLORIDE 102 mmol/L 100-110 CO2 20 meq/L 20-30 CREATININE, Serum 2.33 mg/dL H 0.50-1.40 eGFR(CKD-EPI 2020) 27 mL/min L >60 Nov 05, 2023 07:31 AM [facility] MICROALBUMIN CREATININE RATIO PANEL Specimen Type: URINE No comment entered. Ordering Provider: MIAH BUTTS Report Released Date/Time: Oct 23, 2023 03:32 PM Reporting Lab: [address] [place] [address] Performing Lab: [place] [facility] [address] [facility] [address] MICROALBUMIN/C REATININE RATIO canc mg/g 0-29.9 MICROALBUMIN,Q [...] 109/62 16 96 0 [phone] 29 [place] [facility] Social History: Smoking Status (Most current) [...] took place. Date/Time Current Smoking Status Comment [facility] Dec 24, 2022 10:30 AM VA-TOBACCO QUIT 15 YRS OR MORE [facility] Tobacco Use History This section includes a history of the smoking, or tobacco-related health factors, that were collected on or before the date of the Encounter. The data comes from the [place] facility where the Encounter took place. Date/Time Smoking Status/Tobac co Use Comment Facility Dec 24, 2022 10:30 AM VA-TOBACCO QUIT 15 YRS OR MORE [place] [facility] Dec 24, 2021 10:00 AM VA-TOBACCO FORMER USER [place] [facility] [place] [facility] Dec 24, 2021 10:00 AM VA-TOBACCO QUIT 5 TO < 15 YRS [place] [facility] [place] [facility] Dec 14, 2020 08:30 AM VA-TOBACCO FORMER USER [place] [facility] [place] [facility] Dec 14, 2020 08:30 AM VA-TOBACCO QUIT 5 TO < 15 YRS [place] [facility] [place] [facility] Nov 15, 2019 11:00 AM VA-TOBACCO FORMER USER [place] [facility] [place] [facility] Nov 15, 2019 11:00 AM VA-TOBACCO QUIT 5 TO < [facility] Oct 20, 2017 08:19 AM [facility]BACCO [facility] Oct 20, 2017 08:19 AM VA-TOBACCO QUIT 5 TO < 15 Y[facility] Sep 04, 2017 11:09 AM QUIT TOBACCO USE > 7 YEARS A[facility] Oct 16, 2016 09:08 AM QUIT TOBACCO USE > 7 YEARS AGO [facility] Feb 20, 2015 10:58 AM QUIT TOBACCO USE > 7 YEARS AGO quit 2009-cigarettes and cigars for 45 years [facility] Advance Directives: All historical and current [...] Mar 23, 2014 ADVANCE DIRECTIVE ROSALINDA SHELBY [facility] Encounter Notes: All associated encounter notes This section contains the clinical notes associated to the Encounter. Date/Time Encounter Note(s) Provider Source Nov 13, 2023 09:29 AM DIABETOLOGY NOTE: LOCAL TITLE: INSULIN PUMP/CGM DOWNLOAD (T) STANDARD TITLE: DIABETOLOGY NOTE DATE OF NOTE: NOV 13, 2023@09:29 ENTRY DATE: NOV 13, 2023@09:29:30 AUTHOR: STUART CAMPOS EXP COSIGNER: URGENCY: STATUS: COMPLETED Please select: Personal Continuous Glucose Monitor Date of Documentation:Oct Please see attached scanned document in [employer]. Devon 2 DX: Type 2 DM /es/ STUART CAMPOS RN Signed: 11/13/2023 09:30 STUART CAMPOS [facility]
--- OUTSIDE RECORDS SUMMARY | 2024-03-26 16:27 | XMS_ITS | Encounter Summary ---
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 Date/Time Encounter Type Encounter Description Reason Pro vider Source Nov 17, 2023 10:12 AM Outpatient Encounter DIABETES CLINIC IHE Encounter Template Text not used by [place] Plan of Treatment: Future Appointments (+ 6 months) and Future Tests (+/- 45 days) The Plan of Treatment section includes future care activities for the patient from [facility] This section includes future appointments and future orders which are active, pending or scheduled. Future Appointments This section includes appointments that were scheduled to occur 6 months from the date of the Encounter, up to a maximum of 20 appointments. The data comes from all [facility]. Appointment Date/Time Appointment Type Appointme nt Facility Name Dec 31, 2023 02:00 PM AMBULATORY - MEDICINE [place] [facility] [place] [facility] Jan 06, 2024 09:30 AM AMBULATORY - MEDICINE [place] [facility] [place] [facility] Jan 13, 2024 03:00 PM AMBULATORY - MEDICINE NE C [facility] [place] [facility] Jan 19, 2024 08:30 AM AMBULATORY - REHAB MEDICIN E [facility] [place] [facility] Feb 23, 2024 03:00 PM AMBULATORY - MEDICINE NE C [facility] [place] [facility] Mar 03, 2024 02:00 PM AMBULATORY - MEDICINE NE C [facility] [place] [facility] Mar 03, 2024 02:30 PM AMBULATORY - MEDICINE NE C [facility] [place] [facility] Mar 30, 2024 03:00 PM AMBULATORY - MEDICINE NE C [facility] [place] [facility] Mar 31, 2024 02:30 PM AMBULATORY - MEDICINE NE C [facility] [place] [facility] Apr 07, 2024 08:00 AM AMBULATORY - MEDICINE NE C [facility] [place] [facility] May 17, 2024 02:00 PM AMBULATORY - MEDICINE NE C [facility] [place] [facility] Active, Pending, and Scheduled Orders This section includes a listing of several types of active, pending, and scheduled orders, including clinic medications orders, diagnostic test orders, procedure orders and consult orders; where the start date of the order is 45 days before the date of the Encounter or 45 days after the date of theEncounter. The data comes from all [facility]. Test Date/Time Test Type Test Details Facility Name Nov 13, 2023 12:00 AM Laboratory - Chemi stry Order BASIC METABOLIC PANEL (non-fasting) BLOOD (SST-SERUM) SP [facility] Lab Results: +/- 30 days of [...] Range Comment Nov 11, 2023 09:05 AM [facility] BASIC METABOLIC PANEL (non-fasting) Specimen Type: SERUM No comment entered. Ordering Provider: MIAH BUTTS Report Released Date/Time: Nov 05, 2023 04:26 PM Reporting Lab: [address] [address] Performing Lab: [address] [address] UREA NITROGEN 39 mg/dL H 7-25 GLUCOSE 412 mg/dL H 65-100 SODIUM 132 mmol/L L 135-145 POTASSIUM 4.6 mmol/L 3.5-5.0 CHLORIDE 101 mmol/L 100-110 CO2 19 meq/L L 20-30 CREATININE, Serum 1.99 mg/dL H 0.50-1.40 eGFR(CKD-EPI 2020) 33 mL/min L >60 Nov 05, 2023 07:31 AM [facility] LIPID PANEL, NON FASTING Specimen Type: SERUM No comment entered. Ordering Provider: MIAH BUTTS Report Released Date/Time: Oct 23, 2023 03:32 PM Reporting Lab: [address] [address] Performing Lab: [address] [address] CHOLESTEROL 140 mg/dL TRIGLYCERIDE 94 mg/dL 0-150 LDL calculated 72 mg/dL 0-129 CHOL/HDL 2.9 HDL CHOLESTEROL 49 mg/dL 40-60 Nov 05, 2023 07:31 AM [facility] HEMOGLOBIN A1C PANEL Specimen Type: BLOOD [...] Oct 23, 2023 03:32 PM Reporting Lab: [address] [address] Performing Lab: [address] [address] HEMOGLOBIN A1C 8.1 H 4.0-5.6 Nov 05, 2023 07:31 AM [facility] BASIC METABOLIC PANEL (non-fasting) Specimen Type: SERUM No comment entered. Ordering Provider: MIAH BUTTS Report Released Date/Time: Oct 23, 2023 03:32 PM Reporting Lab: [address] [address] Performing Lab: [address] [address] UREA NITROGEN 49 mg/dL H 7-25 GLUCOSE 198 mg/dL H 65-100 SODIUM 135 mmol/L 135-145 POTASSIUM 4.5 mmol/L 3.5-5.0 CHLORIDE 102 mmol/L 100-110 CO2 20 meq/L 20-30 CREATININE, Serum 2.33 mg/dL H 0.50-1.40 eGFR(CKD-EPI 2020) 27 mL/min L >60 Nov 05, 2023 07:31 AM [facility] MICROALBUMIN CREATININE RATIO PANEL Specimen Type: URINE No comment entered. Ordering Provider: MIAH BUTTS Report Released Date/Time: Oct 23, 2023 03:32 PM Reporting Lab: [address] [address] Performing Lab: [address] [address] MICROALBUMIN/C REATININE RATIO canc mg/g 0-29.9 MICROALBUMIN,Q [...] 24, 2022 10:30 AM VA-TOBACCO FORMER USER [place] [facility] [place] [facility] Tobacco Use History This section includes a history of the smoking, or tobacco-related health factors, that were collected on or before the date of the Encounter. The data comes from the [place] facility where the Encounter took place. Date/Time Smoking Status/Tobac co Use Comment Facility Dec 24, 2022 10:30 AM VA-TOBACCO QUIT 15 YRS OR MORE [facility] [place] [facility] Dec 24, 2021 10:00 AM VA-TOBACCO FORMER USER [facility] [place] [facility] Dec 24, 2021 10:00 AM VA-TOBACCO QUIT 5 TO < 15 YRS [facility] [place] [facility] Dec 14, 2020 08:30 AM VA-TOBACCO FORMER USER [place] [facility] [place] [facility] Dec 14, 2020 08:30 AM VA-TOBACCO QUIT 5 TO < 15 YRS [facility] [place] [facility] Nov 15, 2019 11:00 AM VA-TOBACCO FORMER USER [facility] [place] [facility] Nov 15, 2019 11:00 AM VA-TOBACCO QUIT 5 TO < 15 YRS [facility] [place] [facility] Oct 20, 2017 08:19 AM VA-TOBACCO FORMER USER [facility] [place] [facility] Oct 20, 2017 08:19 AM VA-TOBACCO QUIT 5 TO < 15 YRS [facility] [place] [facility] Sep 04, 2017 11:09 AM QUIT TOBACCO USE > 7 YEARS AGO [facility] [place] [facility] Oct 16, 2016 09:08 AM QUIT TOBACCO USE > 7 YEARS AGO [facility] [place] [facility] Feb 20, 2015 10:58 AM QUIT TOBACCO USE > 7 YEARS AGO quit 2009-cigarettes and cigars for 45 years [facility] Advance Directives: All historical and current [...] Mar 23, 2014 ADVANCE DIRECTIVE ROSALINDA SHELBY [facility] Encounter Notes: All associated encounter notes This section contains the clinical notes associated to the Encounter. Date/Time Encounter Note(s) Provider Source Nov 17, 2023 10:12 AM LETTERS: LOCAL TITLE: PATIENT LETTER (B) STANDARD TITLE: LETTERS DATE OF NOTE: NOV 17, 2023@10:12 ENTRY DATE: NOV 17, 2023@10:12:45 AUTHOR: EWELINA STEEN EXP COSIGNER: URGENCY: STATUS: COMPLETED NOV 17, 2023 TONY CASTELLON [address] [address] Dear TONY CASTELLON JR We would like to assist you in scheduling a DIABETES EDUCATION appointment at the NE. We have been unable to reach you by phone. To schedule this appointment please call toll free Ext [phone]. Our booking appointment hours are Friday through Friday from 8:00 am to 4:00 pm. Please leave a message if you receive voicemail and let us know a good time and telephone number where we can reach you. If we dont hear back from you within 14 days from the date of this letter we will discontinue the request. If you have already scheduled this appointment, please disregard this letter. Your health is important to us. Sincerely, [facility] [address] [facility] [address] [place] [address] [place] [address] ext. [phone] [facility] [address] [facility] [address] [place] [address] [place] [address] [phone] [facility] [address] [address] [place] [address] ext. [phone] [facility] [address] [place] [address] ext. [phone] EWELINA STEEN CNTRL [facility]
--- OUTSIDE RECORDS SUMMARY | 2024-03-26 16:27 | XMS_ITS | Encounter Summary ---
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 Date/Time Encounter Type Encounter Description Reason Provider Source Sep 04, 2023 11:00 AM TRIM NAIL(S) PODIATRY ICD-10-CM E11.42 Type 2 diabetes mellitus with diabetic polyneuropathy ROGELIO JONAS [facility] Encounter Template Text not used by [place] Assessments - Encounter Diagnoses This section includes the primary and secondary diagnoses documented for the Encounter. Date/Time Primary/Secondary Diagnosis Diagnosis Name Provider Source Sep 04, 2023 11:17 AM PRIMARY Type 2 diabetes mellitus with diabetic polyneuropathy ROGELIO JONAS [place] [facility] [place] [facility] Sep 04, 2023 11:17 AM SECONDARY Nail dystrophy ROGELIO JONAS [place] [facility] [place] [facility] Sep 04, 2023 11:17 AM SECONDARY Peripheral vascular disease, unspecified ROGELIO JONAS [place] [facility] [place] [facility] Sep 04, 2023 11:17 AM SECONDARY Type 2 diabetes mellitus with unspecified complications ROGELIO JONAS [place] [facility] [place] [facility] Plan of Treatment: Future Appointments (+ 6 months) and Future Tests (+/- 45 days) The Plan of Treatment section includes future care activities for the patient from all [place] [facility]. This section includes future appointments and future orders which are active, pending or scheduled. Future Appointments This section includes appointments that were scheduled to occur 6 months from the date of the Encounter, up to a maximum of 20 appointments. The data comes from all [place] treatment facilities. Appointment Date/Time Appointment Type Appointme nt Facility Name Sep 23, 2023 09:00 AM AMBULATORY - MEDICINE [place] C [facility] [facility] Nov 13, 2023 09:30 AM AMBULATORY - MEDICINE [place] C [facility] [place] [facility] Dec 31, 2023 02:00 PM AMBULATORY - MEDICINE [place] C [facility] [place] [facility] Jan 06, 2024 09:30 AM AMBULATORY - MEDICINE [place] C [place] [facility] Jan 13, 2024 03:00 PM AMBULATORY - MEDICINE [place] C [facility] [place] [facility] Jan 19, 2024 08:30 AM AMBULATORY - REHAB MEDICIN E [facility] [place] [facility] Feb 23, 2024 03:00 PM AMBULATORY - MEDICINE [place] C [facility] [place] [facility] Mar 03, 2024 02:00 PM [facility]UL[facility] Mar 03, 2024 02:30 PM AMBULAT[facility] - [facility] Lab Results: +/- 30 days of the encounter This section includes the Chemistry and Hematology Lab Results on record with [facility] for the patient. Radiology Reports and Pathology Reports are provided separately, in subsequent sections. Lab Results This section contains the Chemistry/Hematology Results that were resulted 30 days before or 30 daysafter the date of the Encounter. Date/Time Source Result Type Result - Unit Interpretation Reference Range Comment August 17, 2023 05:30 AM [facility] OCCULT BLOOD FIT X1 SCREEN(IN-HOUSE) Specimen Type: FECES No comment entered. Ordering Provider: MOE MARKS Report Released Date/Time: August 14, 2023 03:34 PM Reporting Lab: [address] [address] Performing Lab: [address] [address] OCCULT BLOOD (FIT)#1 OF 1 Negative NEG August 15, 2023 08:59 AM [facility] FOLATE (WROX) Specimen Type: SERUM No comment entered. Ordering Provider: MOE MARKS Report Released Date/Time: August 14, 2023 03:34 PM Reporting Lab: [facility] [address] [facility] [address] Performing Lab: [facility] [address] [facility] [address] FOLATE (WROX) 13.92 ng/mL >5.2 August 15, 2023 08:59 AM [facility] FERRITIN Specimen Type: SERUM No comment entered. Ordering Provider: MOE MARKS Report Released Date/Time: August 14, 2023 03:34 PM Reporting Lab: [facility] [address] [facility] [address] Performing Lab: [facility] [address] [facility] [address] FERRITIN 108 ng/mL 20-300 August 15, 2023 08:59 AM [facility] VITAMIN B12 Specimen Type: SERUM No comment entered. Ordering Provider: MOE MARKS Report Released Date/Time: August 14, 2023 03:34 PM Reporting Lab: [address] [address] Performing Lab: [address] [address] VITAMIN B12 284 pg/mL 200-900 August 15, 2023 08:59 AM [facility] IRON & TIBC PANEL Specimen Type: SERUM No comment entered. Ordering Provider: MOE MARKS Report Released Date/Time: August 14, 2023 03:34 PM Reporting Lab: [address] [address] Performing Lab: [address] [address] TIBC 380 ug/dL 204-475 IRON 71 ug/dL 40-160 Transferrin Saturation 18.7 L 20.0-50.0 August 15, 2023 08:59 AM [facility] CBC AND DIFF (AUTO) Specimen Type: BLOOD No comment entered. Ordering Provider: MOE MARKS Report Released Date/Time: August 14, 2023 03:34 PM Reporting Lab: [address] [address] Performing Lab: [address] [address] WBC 5.70 10*3/uL 4.50-11.00 RBC 3.35 10*6/uL L 4.23-5.66 HGB 10.3 g/dL L 12.8-17 HCT 32.9 L 39.2-50.4 MCV 98.2 fL 82-99 MCHC 31.3 g/dL 30.8-35.1 PLT 303 10*3/uL 140-360 RDW-CV 14.2 12.0-16.0 [place], Abs 0.63 10*3/uL 0.30-1.10 MCH 30.7 pg 26.2-32.6 Neut % 73.0 43.7-75.8 Lymph % 14.2 14.0-42.3 [place] % 11.1 5.1-13.7 Eos % 0.4 0.4-6.8 Baso % 0.4 0.1-2.0 Neut, Abs 4.17 10*3/uL 2.20-7.60 Lymph, Abs 0.81 10*3/uL L 1.00-3.20 Eos, Abs 0.02 10*3/uL L 0.03-0.44 Baso, Abs 0.02 10*3/uL 0.01-0.13 Immature Gran % 0.9 H 0.0-0.7 Immature Gran, Abs 0.05 10*3/uL 0.00-0.06 August 06, 2023 07:31 AM [facility] LIVER FUNCTION Specimen Type: SERUM No comment entered. Ordering Provider: GEORGINA ARITA Report Released Date/Time: Jun 06, 2023 11:30 AM Reporting Lab: [address] [address] Performing Lab: [address] [address] PROTEIN,TOTAL 6.4 g/dL 6.0-8.3 ALBUMIN 3.0 g/dL L 3.5-5.0 ALKALINE PHOSPHATASE 61 U/L 40-150 AST 22 U/L 5-34 ALT 24 U/L BILIRUBIN, TOTAL 0.7 mg/dL 0.2-1.2 August 06, 2023 07:31 AM [facility] CBC AND DIFF (AUTO) Specimen Type: BLOOD No comment entered. Ordering Provider: GEORGINA ARITA Report Released Date/Time: Jun 06, 2023 11:30 AM Reporting Lab: [address] [address] Performing Lab: [address] [address] WBC 7.50 10*3/uL 4.50-11.00 RBC 3.17 10*6/uL L 4.23-5.66 HGB 9.8 g/dL L 12.8-17 HCT 31.1 L 39.2-50.4 MCV 98.1 fL 82-99 MCHC 31.5 g/dL 30.8-35.1 PLT 181 10*3/uL 140-360 RDW-CV 14.2 12.0-16.0 [place], Abs 0.70 10*3/uL 0.30-1.10 MCH 30.9 pg 26.2-32.6 Neut % 79.2 H 43.7-75.8 Lymph % 10.1 L 14.0-42.3 [place] % 9.3 5.1-13.7 Eos % 0.3 L 0.4-6.8 Baso % 0.4 0.1-2.0 Neut, Abs 5.94 10*3/uL 2.20-7.60 Lymph, Abs 0.76 10*3/uL L 1.00-3.20 Eos, Abs 0.02 10*3/uL L 0.03-0.44 Baso, Abs 0.03 10*3/uL 0.01-0.13 Immature Gran % 0.7 0.0-0.7 Immature Gran, Abs 0.05 10*3/uL 0.00-0.06 August 06, 2023 07:31 AM [facility] HEMOGLOBIN A1C PANEL Specimen Type: BLOOD [...] 07, 2023 02:07 PM Reporting Lab: [address] [address] Performing Lab: [address] [address] HEMOGLOBIN A1C 7.7 H 4.0-5.6 August 06, 2023 07:31 AM [facility] BASIC METABOLIC PANEL (non-fasting) Specimen Type: SERUM No comment entered. Ordering Provider: MIAH BUTTS Report Released Date/Time: May 07, 2023 02:07 PM Reporting Lab: [facility] [address] [facility] [address] Performing Lab: [facility] [address] [facility] [address] UREA NITROGEN 31 mg/dL H 7-25 GLUCOSE [...] and tobacco- related health factors from the [place] facility where the Encounter took place. Current Smoking Status This section includes the most current smoking, or tobacco-related health factor, from the [place] facility where the Encounter took place. Date/Time Current Smoking Status Comment [facility] Dec 24, 2022 10:30 AM VA-TOBACCO FOR[facility] Tobacco Use History This section includes a history of the smoking, or tobacco-related health factors, that were collected on or before the date of the Encounter. The data comes from the [place] facility where the Encounter took place. Date/Time Smoking Status/Tobac co Use Comment Facility Dec 24, 2022 10:30 AM VA-TOBACCO QUIT 15 YRS OR MORE [facility] Dec 24, 2021 10:00 AM VA-TOBACCO FORMER USER [place] [facility] [place] [facility] Dec 24, 2021 10:00 AM VA-TOBACCO QUIT 5 TO < 15 YRS [place] [facility] [place] [facility] Dec 14, 2020 08:30 AM VA-TOBACCO FORMER USER [facility] Dec 14, 2020 08:30 AM VA-TOBACCO QUIT 5 TO < 15 YRS [facility] [place] [facility] Nov 15, 2019 11:00 AM VA-TOBACCO [facility] Nov 15, 2019 11:00 AM VA-TOBACCO QUIT 5 TO < 15 YRS [facility] Oct 20, 2017 08:19 AM VA-TOBACCO FOR[facility] Oct 20, 2017 08:19 AM VA-TOBACCO QUIT 5 TO < 15 YRS [facility] Sep 04, 2017 11:09 AM QUIT TOBACCO USE > 7 YEARS AGO [facility] Oct 16, 2016 09:08 AM QUIT TOBACCO USE > 7 YEARS AGO [facility] Feb 20, 2015 10:58 AM QUIT TOBACCO USE > 7 YEARS AGO quit 2009-cigarettes and cigars for 45 years [facility] Advance Directives: All historical and current Section Date Range: From patient's date of to the date document was created. This section includes ALL of a patient's completed or amended [place] Advance and Rescinded Directives. The entries below indicate that a directive exists for the patient, but an actual copy is not included with this document. The data comes from all [place] facilities. Date Advance Directives Provider Source Mar 23, 2014 ADVANCE DIRECTIVE ROSALINDA SHELBY [facility] Encounter Notes: All associated encounter notes This section contains the clinical notes associated to the Encounter. Date/Time Encounter Note(s) Provider Source Sep 15, 2023 04:18 PM LETTERS: LOCAL TITLE: PATIENT LETTER (B) STANDARD TITLE: LETTERS DATE OF NOTE: SEP 15, 2023@16:18 ENTRY DATE: SEP 15, 2023@16:18:12 AUTHOR: HIMA CASTILLO EXP COSIGNER: URGENCY: STATUS: COMPLETED [facility] TONY CASTELLON JR [address] [facility] [address] [place], [place], [address] SEP 15, 2023 Dear TONY CASTELLON, Your shoes have arrived at the [facility] located at [address] [place] [address]. Please call [phone] ext. [phone] for Hima or ext. [phone] for Rogelio to make a shoe fitting appointment. Clinic Hours are 8:30am-3:30pm. Walk-ins may not be accommodated. We hope to see you soon. Podiatry Staff [facility] [address] [place] [address] HIMA CASTILLO [place] [facility] [place] [facility] Sep 04, 2023 11:11 AM NURSING OUTPATIENT NOTE: LOCAL TITLE: NURSING/SPECIALTY CLINIC NOTE STANDARD TITLE: NURSING OUTPATIENT NOTE DATE OF NOTE: SEP 04, 2023@11:11 ENTRY DATE: SEP 04, 2023@11:12:03 AUTHOR: ROGELIO JONAS EXP COSIGNER: URGENCY: STATUS: COMPLETED seen in Podiatry Nursing Clinic for continued foot care. has a history of Diabetes and is unable to trim his/her own nails. Ambulates: [X]self [ ]wheelchair can transfer [ ]wheelchair cannot transfer [x ]without assistance [ ]with assistance of Bilateral: Pedal pulses: Right Foot: Dorsalis Pedis - palpable [x ] non-palpable[ ] Posterior Tibial - palpable[x ] non-palpable[ ] Left Foot: Dorsalis Pedis - palpable [x ] non-palpable [ ] Posterior Tibial - palpable [x ] non-palpable[ ] Pedal sensation: Right Foot: [x ] Intact [ ] Absent out of 10 sites Left Foot: [ ] Intact [x ] Absent 3 out of 10 sites Skin Temperature: [x ] Warm to warm, proximal to distal [ ] Warm to cool/cold, proximal to distal Pedal skin: [x ] Intact [x ] Dry [ ] Cracked [ ] Discolored Webspaces: [x ] Intact [x ] Clean [ ] Soiled [ ] Macerated [x ] Dry Nails: [x ] Thickened [ ] Elongated [x ] Dystrophic [ ] Discolored [ ] Fungal [ ] Incurvated [ ] Subungual debri Hyperkeratosis [ ] Yes, Locations: [x ] No Open lesions/wounds: [ ] Yes, Locations: [x ] No Amputations: [ ] Yes, Locations: [x ] No Edema present: ( x ) Yes Trace edema left lower leg and ankle ( ) NO Podiatric Problem List: [x ] Diabetes mellitus [x ] Peripheral vascular disease [x ] Neuropathy [ ] Onychomycosis [x ] Dystrophic toenails [ ] Hyperkeratosis/calluses [x ] Xerosis/dry skin [ ] Other: Treatment: [x ] Nails x 10 debrided in length and thickness without incident [ ] Hyperkeratotic lesions were grinded down with eletric centerless grinder operator and debrided without incidence. [x ]Patient education educated about proper foot and encouraged to check feet daily for injuries and wounds [x ] Instructed to moisturize feet daily but not in-between toes Patient is to RTC in 4 months. /jus/ ROGELIO JONAS LPN LICENSED PRACTICAL NURSE Signed: 09/04/2023 11:17 Receipt Acknowledged By: 09/05/2023 15:45 /jus/ BLADE DEUTSCH DPM PODIATRY ATTENDING ROGELIO JONAS CNTRL W[facility]N [facility]
--- OUTSIDE RECORDS SUMMARY | 2024-03-26 16:27 | XMS_ITS | Encounter Summary ---
Author Name [facility] [place] Organization [facility] Address [address] [place] [address] Care Team Providers Care Special Effects Designer Name Role Phone AJAY APODACA Primary Care [...] PART A Nov 22, 2006 PART A [id number] TONY CASTELLON PATIENT MEDICARE (WNR) MEDICARE (M) PART B Nov 22, 2006 PART B [id number] [phone] TONY CASTELLON PATIENT MEDICARE (WNR) MEDICARE (M) PART B Nov 22, 2006 PART B [id number] TONY CASTELLON PATIENT MEDICARE (WNR) MEDICARE (M) PART A Nov 22, 2006 PART A [id number] TONY CASTELLON PATIENT FOR LIFE TFL* Apr 20, 2014 [id number] SUKHJINDER CASTELLON JR PATIENT Selected Encounter This section includes the information on record at [place] for the Encounter. Date/Time Encounter Type Encounter Description Reason Pro vider Source Nov 11, 2023 06:19 PM Outpatient Encounter ENDOCRINOLOGY MIAH BUTTS REGGIEJose Encounter Template Text not used by [place] Plan of Treatment: Future Appointments (+ 6 months) and Future Tests (+/- 45 days) The Plan of Treatment section includes future care activities for the patient from all [place] [facility]. This section includes future appointments and future orders which are active, pending or scheduled. Future Appointments This section includes appointments that were scheduled to occur 6 months from the date of the Encounter, up to a maximum of 20 appointments. The [facility] Appointment Date/Time Appointment Type Appointme nt Facility Name Nov 13, 2023 09:30 AM AMBULATORY - MEDICINE [place] [facility] [place] [facility] Dec 31, 2023 02:00 PM AMBULATORY MEDICINE [place] [facility] [place] [facility] Jan 06, 2024 09:30 AM AMBULATORY - MEDICINE [place] [facility] [facility] Jan 13, 2024 03:00 PM AMBULATORY MEDICINE [place] [facility] [place] [facility] Jan 19, 2024 08:30 AM AMBULATORY - REHAB MEDICIN E [place] [facility] [place] [facility] Feb 23, 2024 03:00 PM AMBULATORY - MEDICINE [place] [facility] [place] [facility] Mar 03, 2024 02:00 PM AMBULATORY - MEDICINE [place] [facility] [place] [facility] Mar 03, 2024 02:30 PM AMBULATORY - MEDICINE [place] [facility] [place] [facility] Mar 30, 2024 03:00 PM AMBULATORY - MEDICINE [place] [facility] [place] [facility] Mar 31, 2024 02:30 PM AMBULATORY - MEDICINE [place] [facility] [place] [facility] Apr 07, 2024 08:00 AM AMBULATORY - MEDICINE [place] [facility] [place] [facility] Active, Pending, and Scheduled Orders This section includes a listing of several types of active, pending, and scheduled orders, including clinic medications orders, diagnostic test orders, procedure orders and consult orders; where the start date of the order is 45 days before the date of the Encounter or 45 days after the date of theEncounter. The [facility] comes from [facility]. Test Date/Time Test Type Test Details Facility Name Nov 13, 2023 12:00 AM Laboratory - Chemi stry Order BASIC METABOLIC PANEL (non-fasting) BLOOD (SST-SERUM) SP [facility] Lab Results: +/- 30 days of the encounter This section includes the Chemistry and Hematology Lab Results on record with [place] for the patient. Radiology Reports and Pathology Reports are provided separately, in subsequent sections. Lab Results This section contains the Chemistry/Hematology Results that were resulted 30 days before or 30 daysafter the date of the Encounter. Date/Time Source Result Type Result - Unit Interpretation Reference Range Comment Nov 11, 2023 09:05 AM [facility] BASIC METABOLIC PANEL (non-fasting) Specimen Type: SERUM No comment entered. Ordering Provider: MIAH BUTTS Report Released Date/Time: Nov 05, 2023 04:26 PM Reporting Lab: [address] [address] Performing Lab: [address] [address] UREA NITROGEN 39 mg/dL H 7-25 GLUCOSE 412 mg/dL H 65-100 SODIUM 132 mmol/L L 135-145 POTASSIUM 4.6 mmol/L 3.5-5.0 CHLORIDE 101 mmol/L 100-110 CO2 19 meq/L L 20-30 CREATININE, Serum 1.99 mg/dL H 0.50-1.40 eGFR(CKD-EPI 2020) 33 mL/min L >60 Nov 05, 2023 07:31 AM [facility] LIPID PANEL, NON FASTING Specimen Type: SERUM No comment entered. Ordering Provider: MIAH BUTTS Report Released Date/Time: Oct 23, 2023 03:32 PM Reporting Lab: [address] [address] Performing Lab: [address] [address] CHOLESTEROL 140 mg/dL TRIGLYCERIDE 94 mg/dL 0-150 LDL calculated 72 mg/dL 0-129 CHOL/HDL 2.9 HDL CHOLESTEROL 49 mg/dL 40-60 Nov 05, 2023 07:31 AM [facility] MICROALBUMIN CREATININE RATIO PANEL Specimen Type: URINE No comment entered. Ordering Provider: MIAH BUTTS Report Released Date/Time: Oct 23, 2023 03:32 PM Reporting Lab: [facility] [address] [facility] [address] Performing Lab: [facility] [address] [facility] [address] MICROALBUMIN/C REATININE RATIO canc mg/g 0-29.9 MICROALBUMIN,Q UANTITATIVE < 0.5 mg/dL RR UNAVAIL CREATININE URINE 18.58 mg/dL Nov 05, 2023 07:31 AM [facility] HEMOGLOBIN A1C PANEL Specimen Type: BLOOD Comment: [...] Oct 23, 2023 03:32 PM Reporting Lab: [facility] [address] [facility] [address] Performing Lab: [address] [address] HEMOGLOBIN A1C 8.1 H 4.0-5.6 Nov 05, 2023 07:31 AM [facility] BASIC METABOLIC PANEL (non-fasting) Specimen Type: SERUM No comment entered. Ordering Provider: MAIH BUTTS Report Released Date/Time: Oct 23, 2023 03:32 PM Reporting Lab: [facility] [address] [facility] [address] Performing Lab: [address] [address] UREA NITROGEN 49 mg/dL H 7-25 GLUCOSE 198 mg/dL H 65-100 SODIUM 135 mmol/L 135-145 POTASSIUM 4.5 mmol/L 3.5-5.0 CHLORIDE 102 mmol/L 100-110 CO2 20 meq/L 20-30 CREATININE, Serum 2.33 mg/dL H 0.50-1.40 eGFR(CKD-EPI 2020) 27 mL/min L >60 Social History: Smoking Status [...] 24, 2022 10:30 AM VA-TOBACCO FORMER USER [place] [facility] [place] [facility] Tobacco Use History This section includes a history of the smoking, or tobacco-related health factors, that were collected on or before the date of the Encounter. The data comes from the [place] facility where the Encounter took place. Date/Time Smoking Status/Tobac co Use Comment Facility Dec 24, 2022 10:30 AM VA-TOBACCO QUIT 15 YRS OR MORE [facility] [place] [facility] Dec 24, 2021 10:00 AM VA-TOBACCO FORMER USER [facility] [place] [facility] Dec 24, 2021 10:00 AM VA-TOBACCO QUIT 5 TO < 15 YRS [facility] [place] [facility] Dec 14, 2020 08:30 AM VA-TOBACCO FORMER USER [facility] [place] [facility] Dec 14, 2020 08:30 AM VA-TOBACCO QUIT 5 TO < 15 YRS [facility] [place] [facility] Nov 15, 2019 11:00 AM VA-TOBACCO FORMER USER [facility] [place] [facility] Nov 15, 2019 11:00 AM VA-TOBACCO QUIT 5 TO < 15 YRS [facility] [place] [facility] Oct 20, 2017 08:19 AM VA-TOBACCO FORMER USER [facility] [place] [facility] Oct 20, 2017 08:19 AM VA-TOBACCO QUIT 5 TO < 15 YRS [facility] [place] [facility] Sep 04, 2017 11:09 AM QUIT TOBACCO USE > 7 YEARS AGO [facility] [place] [facility] Oct 16, 2016 09:08 AM QUIT TOBACCO USE > 7 YEARS AGO [facility] [place] [facility] Feb 20, 2015 10:58 AM QUIT TOBACCO USE > 7 YEARS AGO quit 2009-cigarettes and cigars for 45 years [facility] Advance Directives: All historical and current Section [...] 23, 2014 ADVANCE DIRECTIVE ROSALINDA SHELBY [facility] Encounter Notes: All associated encounter notes This section contains the clinical notes associated to the Encounter. Date/Time Encounter Note(s) Provider Source Nov 11, 2023 06:19 PM ENDOCRINOLOGY SECU RE MESSAGING: LOCAL TITLE: ENDOCRINOLOGY SECURE MESSAGING STANDARD TITLE: ENDOCRINOLOGY SECURE MESSAGING DATE OF NOTE: NOV 11, 2023@18:19 ENTRY DATE: NOV 11, 2023@19:19:30 AUTHOR: MIAH BUTTS EXP COSIGNER: URGENCY: STATUS: COMPLETED ------Original Message ----- Sent: 11/11/2023 07:19 PM ET From: MIAH BUTTS To: TONY CASTELLON Subject: General:General Inquiry Good evening! Thank you for having your blood drawn Your kidney function blood test has improved . Your cholesterol is well controlled. Your urine test is normal. HGB-A1c 8.1 Be well! /jus/ MIAH BUTTS MD STAFF PHYSICIAN Signed: 11/11/2023 19:19 MIAH BUTTS [facility]
--- OUTSIDE RECORDS SUMMARY | 2024-03-26 16:27 | XMS_ITS | Encounter Summary ---
Author Name [facility] [place] Organization [facility] [place] Address [address] [place] [address] Care Team Providers Care Informaticist Name Role Phone AJAY APODACA Primary Care [...] PART A Nov 22, 2006 PART A [id number] TONY CASTELLON PATIENT MEDICARE (WNR) MEDICARE (M) PART B Nov 22, 2006 PART B [id number] [phone] TONY CASTELLON PATIENT MEDICARE (WNR) MEDICARE (M) PART B Nov 22, 2006 PART B [id number] TONY CASTELLON PATIENT MEDICARE (WNR) MEDICARE (M) PART A Nov 22, 2006 PART A [id number] [phone] TONY CASTELLON PATIENT FOR LIFE TFL* Apr 20, 2014 [id number] SUKHJINDER CASTELLON JR PATIENT Selected Encounter This section includes the information on record at [place] for the Encounter. Date/Time Encounter Type Encounter Description Reason Provider Source Nov 04, 2023 10:27 AM QNHP OL DIG ASSMT&MGMT 5-10 CLINICAL PHARMACY ICD-10-CM Z04.89 Encounter for examination and observation for oth reasons MOODY ANNE Jose Encounter Template Text not used by [place] Assessments - Encounter Diagnoses This section includes the primary and secondary diagnoses documented for the Encounter. Date/Time Primary/Secondary Diagnosis Diagnosis Name Provider Source Nov 04, 2023 11:11 AM PRIMARY Encounter for examination and observation for oth reasons MOODY ANNE [place] [facility] [place] [facility] Plan of Treatment: Future Appointments (+ 6 months) and Future Tests (+/- 45 days) The Plan of Treatment section includes future care activities for the patient from all [place] [facility] This section includes future appointments [...] - MEDICINE [place] [facility] [place] [facility] Dec 31, 2023 02:00 PM AMBULATORY - MEDICINE [place] [facility] [place] [facility] Jan 06, 2024 09:30 AM AMBULATORY - MEDICINE [place] [facility] [facility] Jan 13, 2024 03:00 PM AMBULATORY - MEDICINE [place] [facility] [place] [facility] Jan 19, 2024 08:30 AM AMBULATORY - REHAB MEDICIN E [facility] [place] [facility] Feb 23, 2024 03:00 PM AMBULATORY - MEDICINE [place] [facility] [place] [facility] Mar 03, 2024 02:00 PM AMBULATORY - MEDICINE [place] [facility] [place] [facility] Mar 03, 2024 02:30 PM AMBULATORY - MEDICINE [place] [facility] [place] [facility] Mar 30, 2024 03:00 PM AMBULATORY - MEDICINE [place] [facility] [place] [facility] Mar 31, 2024 02:30 PM AMBULATORY - MEDICINE [place] [facility] [place] [facility] Apr 07, 2024 08:00 AM AMBULATORY - MEDICINE [place] [facility] [place] [facility] Active, Pending, and Scheduled Orders [...] BASIC METABOLIC PANEL (non-fasting) BLOOD (SST-SERUM) SP [facility] Lab Results: +/- 30 days [...] Range Comment Nov 11, 2023 09:05 AM [facility] BASIC METABOLIC PANEL (non-fasting) Specimen Type: SERUM No comment entered. Ordering Provider: MIAH BUTTS Report Released Date/Time: Nov 05, 2023 04:26 PM Reporting Lab: [address] [address] Performing Lab: [address] [address] UREA NITROGEN 39 mg/dL H 7-25 GLUCOSE 412 mg/dL H 65-100 SODIUM 132 mmol/L L 135-145 POTASSIUM 4.6 mmol/L 3.5-5.0 CHLORIDE 101 mmol/L 100-110 CO2 19 meq/L L 20-30 CREATININE, Serum 1.99 mg/dL H 0.50-1.40 eGFR(CKD-EPI 2020) 33 mL/min L >60 Nov 05, 2023 07:31 AM [facility] LIPID PANEL, NON FASTING Specimen Type: SERUM No comment entered. Ordering Provider: MIAH BUTTS Report Released Date/Time: Oct 23, 2023 03:32 PM Reporting Lab: [address] [address] Performing Lab: [facility] [address] [facility] [address] CHOLESTEROL 140 mg/dL TRIGLYCERIDE 94 mg/dL 0-150 LDL calculated 72 mg/dL 0-129 CHOL/HDL 2.9 HDL CHOLESTEROL 49 mg/dL 40-60 Nov 05, 2023 07:31 AM [facility] BASIC METABOLIC PANEL (non-fasting) Specimen Type: SERUM No comment entered. Ordering Provider: MIAH BUTTS Report Released Date/Time: Oct 23, 2023 03:32 PM Reporting Lab: [facility] [address] [facility] [address] Performing Lab: [address] [address] UREA NITROGEN 49 mg/dL H 7-25 GLUCOSE 198 mg/dL H 65-100 SODIUM 135 mmol/L 135-145 POTASSIUM 4.5 mmol/L 3.5-5.0 CHLORIDE 102 mmol/L 100-110 CO2 20 meq/L 20-30 CREATININE, Serum 2.33 mg/dL H 0.50-1.40 eGFR(CKD-EPI 2020) 27 mL/min L >60 Nov 05, 2023 07:31 AM [facility] HEMOGLOBIN A1C PANEL Specimen Type: [...] Oct 23, 2023 03:32 PM Reporting Lab: [address] [address] Performing Lab: [address] [address] HEMOGLOBIN A1C 8.1 H 4.0-5.6 Nov 05, 2023 07:31 AM [facility] MICROALBUMIN CREATININE RATIO PANEL Specimen Type: URINE No comment entered. Ordering Provider: MIAH BUTTS Report Released Date/Time: Oct 23, 2023 03:32 PM Reporting Lab: [place] [facility] [place] [facility] [address] [facility] [address] Performing Lab: [place] [facility] [place] [facility] [address] [facility] [address] MICROALBUMIN/C REATININE RATIO canc mg/g 0-29.9 MICROALBUMIN,Q [...] 15 YRS OR MORE [facility] Tobacco Use History This section includes a history of the smoking, or tobacco-related health factors, that were collected on or before the date of the Encounter. The data comes from the [place] facility where the Encounter took place. Date/Time Smoking Status/Tobac co Use Comment Facility Dec 24, 2022 10:30 AM VA-TOBACCO QUIT 15 YRS OR MORE [facility] [place] [facility] Dec 24, 2021 10:00 AM VA-TOBACCO FORMER USER [facility] [place] [facility] Dec 24, 2021 10:00 AM VA-TOBACCO QUIT 5 TO < 15 YRS [facility] [place] [facility] Dec 14, 2020 08:30 AM VA-TOBACCO FORMER USER [facility] [place] [facility] Dec 14, 2020 08:30 AM VA-TOBACCO QUIT 5 TO < 15 YRS [facility] [place] [facility] Nov 15, 2019 11:00 AM VA-TOBACCO FORMER USER [facility] [place] [facility] Nov 15, 2019 11:00 AM VA-TOBACCO QUIT 5 TO < 15 YRS [facility] [place] [facility] Oct 20, 2017 08:19 AM VA-TOBACCO FORMER USER [facility] [place] [facility] Oct 20, 2017 08:19 AM VA-TOBACCO QUIT 5 TO < 15 YRS [facility] Sep 04, 2017 11:09 AM QUIT TOBACCO USE > 7 YEARS AGO [facility] Oct 16, 2016 09:08 AM QUIT TOBACCO USE > 7 YEARS AGO [facility] Feb 20, 2015 10:58 AM QUIT TOBACCO USE > 7 YEARS AGO quit 2009-cigarettes and cigars for 45 years [facility] Advance Directives: All historical and [...] Mar 23, 2014 ADVANCE DIRECTIVE ROSALINDA SHELBY [facility] Encounter Notes: All associated encounter notes This section contains the clinical notes associated to the Encounter. Date/Time Encounter Note(s) Provider Source Nov 04, 2023 10:27 AM PHARMACY MEDICATION MGT NOTE: LOCAL TITLE: PHARMACY ANTICOAGULATION NOTE STANDARD TITLE: PHARMACY MEDICATION MGT NOTE DATE OF NOTE: NOV 04, 2023@10:27 ENTRY DATE: NOV 04, 2023@10:27:45 AUTHOR: JAMES FITCH COSIGNER: URGENCY: STATUS: COMPLETED [...] Specimen Test Name Result Units Ref Range 08/15/2023 08:59 BLOOD HGB 10.3 L g/dL 12.8 - 17 PLT: WBC Collection DT Specimen Test Name Result Units Ref Range 08/15/2023 08:59 BLOOD WBC 5.70 K/cmm 4.50 - 11.00 Liver Function Tests Collection DT Spec AST ALT ALK BEE ALBUMIN T BILI T. PROT 08/06/2023 07:31 SERUM 22 24 61 3.0 L 0.7 6.4 HEIGHT: 66 in [167.6 cm] (06/25/2023 13:02) WEIGHT: 176.2 lb [79.92 kg] (08/13/2023 10:04) BMI: BMI: 28.5 CREATININE-EGFR 08/06/23 07:31 1.67 H 05/05/23 07:48 1.45 H 01/03/23 09:54 1.34 CRCL IBW: CrCl(est): 31.3 mL/min (Creat:1.67 08/06/23) CRCL ACT: 39.3 mL/min CRCL ADJ: 31.3 mL/min (08/06/23) ASSESSMENT: refill overdue Action required? [ ] Yes [ X ] No Comments: Per 07/2023 pharmacy note; Comments: Spoke with who reports that he is taking a half tablet twice daily and has a large supply at home. He does not need a refill at this time and will call clinic when a refill is needed. Will dismiss flag at this time PLAN: [ X ] No action required, dismiss flag [ ] Will intervene: [ ] Patient education via phone/letter [ ] Schedule phone/[id number] follow up [ ] Lab ordered [ ] Discontinue interacting medication [ ] Discontinue DOAC [ ] Change to alternative DOAC [ ] Change DOAC dose [ ] Notify PCP [ ] Consult cardiology/hematology [ ] Other: Time spent: 5 min /tyree FITCH CPHT Clinical Identification Printing Machine Setter Signed: 11/04/2023 10:29 Receipt Acknowledged By: 11/04/2023 11:11 /tyree Anne PharmD, GURDEEP Clinical Edge Grinder 11/04/2023 ADDENDUM STATUS: COMPLETED Reviewed above note; agree w/ A/P as documented. /tyree Anne PharmD, GURDEEP Clinical Edge Grinder Signed: 11/04/2023 11:11 JAMES FITCH [facility]
--- OUTSIDE RECORDS SUMMARY | 2024-03-26 16:27 | XMS_ITS | Encounter Summary ---
Author Name [facility] [place] Organization [facility] [place] Address [address] [place] [id number] Care Team Providers Care Staple Laster Name Role Phone AJAY APODACA Primary Care [...] PART A Nov 22, 2006 PART A [id number] TONY CASTELLON PATIENT MEDICARE (WNR) MEDICARE (M) PART B Nov 22, 2006 PART B [id number] [phone] TONY CASTELLON PATIENT MEDICARE (WNR) MEDICARE (M) PART A Nov 22, 2006 PART A [id number] TONY CASTELLON PATIENT MEDICARE (WNR) MEDICARE (M) PART B Nov 22, 2006 PART B [id number] TONY CASTELLON PATIENT FOR LIFE TFL* Apr 20, 2014 [id number] SUKHJINDER CASTELLON JR PATIENT Selected Encounter This section includes the information on record at [place] for the Encounter. Date/Time Encounter Type Encounter Description Reason Pro vider Source I[facility] Encounter Template Text not used by [facility] Advance Directives: All historical and current Section Date Range: From patient's date of to the date document was created. This section includes ALL of a patient's completed or amended [place] Advance and Rescinded Directives. The entries below indicate that a directive exists for the patient, but an actual copy is not included with this document. The data comes from all [place] facilities. Date Advance Directives Provider Source Mar 23, 2014 ADVANCE DIRECTIVE ROSALINDA SHELBY [place] [facility]
[2024-03-26 16:28] LABS: Estimated Average Glucose 200 mg/dL; Hemoglobin A1C 210.7832 umol/L; Hemoglobin A1c % 8.6 % (<6.0); Total Hemoglobin (HGBA1C) 2980.0421 umol/L
--- OUTSIDE RECORDS SUMMARY | 2024-03-26 16:28 | XMS_ITS | Encounter Summary ---
Author Name [facility] ([place]) Organization [facility] ([place]) Address [address] [place] [id number] Care Team Providers Care Washcoat Wiper Name Role Phone ABAD RUSSELL Primary Care [...] PART A Nov 22, 2006 PART A [id number] TONY LOGAN PATIENT MEDICARE (WNR) MEDICARE (M) PART B Nov 22, 2006 PART B [id number] TONY LOGAN PATIENT MEDICARE (WNR) MEDICARE (M) PART A Nov 22, 2006 PART A [id number] TONY LOGAN PATIENT MEDICARE (WNR) MEDICARE (M) PART B Nov 22, 2006 PART B [id number] TONY LOGAN PATIENT FOR LIFE TFL* Apr 20, 2014 [id number] SUKHJINDER LOGAN JR PATIENT Selected Encounter This section includes the information on record at OR for the Encounter. Date/Time Encounter Type Encounter Description Reason Provider Source Jan 13, 2024 03:00 PM DIAB MANAGE TRN PER [facility] ICD-10-CM E11.8 Type 2 diabetes mellitus with unspecified complications ROBB ROSAS [facility] Encounter Template Text not used by OR Assessments - Encounter Diagnoses This section includes the primary and secondary diagnoses documented for the Encounter. Date/Time Primary/Secondary Diagnosis Diagnosis Name Provider Source Jan 13, 2024 04:32 PM PRIMARY Type 2 diabetes mellitus with unspecified complications ROBB ROSAS [facility] [place] [facility] Plan of Treatment: Future Appointments (+ 6 months) and Future Tests (+/- 45 days) The Plan of Treatment section includes future care activities for the patient from [facility] This section includes future appointments and future orders which are active, pending or scheduled. Future Appointments This section includes appointments that were scheduled to occur 6 months from the date of the Encounter, up to a maximum of 20 appointments. The data comes from all OR treatment facilities. Appointment Date/Time Appointment Type Appointme nt Facility Name Jan 19, 2024 08:30 AM AMBULATORY - REHAB MEDICIN E OR [facility] [place] [facility] Feb 23, 2024 03:00 PM AMBULATORY - MEDICINE [facility] [facility] Mar 03, 2024 02:00 PM AMBULATORY - MEDICINE OR C [facility] [place] [facility] Mar 03, 2024 02:30 PM AMBULATORY - MEDICINE OR C [facility] Mar 30, 2024 03:00 PM AMBULATORY - MEDICINE OR C [facility] Mar 31, 2024 02:30 PM AMBULATORY - MEDICINE OR C [facility] Apr 07, 2024 08:00 AM AMBULATORY - MEDICINE OR C [facility] May 17, 2024 02:00 PM AMBULATORY - MEDICINE OR C [facility] Jul 08, 2024 09:00 AM AMBULATORY - MEDICINE [facility] [facility] Lab Results: +/- 30 days of the encounter This section includes the Chemistry and Hematology Lab Results on record with OR for the patient. Radiology Reports and Pathology Reports are provided separately, in subsequent sections. Lab Results This section contains the Chemistry/Hematology Results that were resulted 30 days before or 30 daysafter the date of the Encounter. Date/Time Source Result Type Result - Unit Interpretation Reference Range Comment Jan 29, 2024 09:49 AM [facility] CREATININE (eGFR 2020) Specimen Type: SERUM No comment entered. Ordering Provider: LAURA RUSSELL Report Released Date/Time: Jan 27, 2024 07:33 AM Reporting Lab: [facility] [address] [phone] Performing Lab: [facility] [address] [address] CREATININE, Serum 1.86 mg/dL H 0.50-1.40 eGFR(CKD-EPI 2020) 36 mL/min L >60 Jan 29, 2024 09:49 AM [facility] PT & INR (COUMADIN) Specimen Type: PLASMA No comment entered. Ordering Provider: LAURA RSUSELL Report Released Date/Time: Jan 27, 2024 07:33 AM Reporting Lab: [facility] [address] [address] Performing Lab: [facility] [address] [address] INR 1.3 PROTIME 14.6 s H 10.0-13.1 Jan 29, 2024 09:49 AM [facility] LIVER FUNCTION Specimen Type: SERUM No comment entered. Ordering Provider: LAURA RUSSELL Report Released Date/Time: Jan 27, 2024 07:33 AM Reporting Lab: [facility] [address] [address] Performing Lab: [address] [address] PROTEIN,TOTAL 7.4 g/dL 6.0-8.3 ALBUMIN 3.2 g/dL L 3.5-5.0 ALKALINE PHOSPHATASE 66 U/L 40-150 AST 30 U/L 5-34 ALT 31 U/L BILIRUBIN, TOTAL 0.4 mg/dL 0.2-1.2 Jan 29, 2024 09:49 AM [facility] CBC Specimen Type: BLOOD No comment entered. Ordering Provider: LAURA RUSSELL Report Released Date/Time: Jan 27, 2024 07:33 AM Reporting Lab: [facility] [address] [address] Performing Lab: [facility] [address] [address] WBC 6.95 10*3/uL 4.50-11.00 RBC 3.19 10*6/uL L 4.23-5.66 HGB 9.9 g/dL L 12.8-17 HCT 31.2 L 39.2-50.4 MCV 97.8 fL 82-99 MCHC 31.7 g/dL 30.8-35.1 PLT 178 10*3/uL 140-360 RDW-CV 14.0 12.0-16.0 MCH 31.0 pg 26.2-32.6 Social History: Smoking Status (Most current) and [...] took place. Date/Time Current Smoking Status Comment [facility] Jan 06, 2024 09:30 AM VA-TOBACCO FORMER USER [facility] Tobacco Use History This section includes a history of the smoking, or tobacco-related health factors, that were collected on or before the date of the Encounter. The data comes from the [place] facility where the Encounter took place. Date/Time Smoking Status/Tobac co Use Comment Facility Jan 06, 2024 09:30 AM VA-TOBACCO QUIT 15 YRS OR MORE OR [facility] [place] [facility] Dec 24, 2022 10:30 AM VA-TOBACCO FORMER USER OR [facility] [place] [facility] Dec 24, 2022 10:30 AM VA-TOBACCO QUIT 15 YRS OR MORE OR [facility] [place] [facility] Dec 24, 2021 10:00 AM VA-TOBACCO FORMER USER OR [facility] [place] [facility] Dec 24, 2021 10:00 AM VA-TOBACCO QUIT 5 TO < 15 YRS OR [facility] [place] [facility] Dec 14, 2020 08:30 AM VA-TOBACCO FORMER USER OR [facility] [place] [facility] Dec 14, 2020 08:30 AM VA-TOBACCO QUIT 5 TO < 15 YRS OR [facility] [place] [facility] Nov 15, 2019 11:00 AM VA-TOBACCO FORMER USER OR [facility] [place] [facility] Nov 15, 2019 11:00 AM VA-TOBACCO QUIT 5 TO < 15 YRS OR [facility] [facility] Oct 20, 2017 08:19 AM VA-TOBACCO FORMER USER OR [facility] [facility] Oct 20, 2017 08:19 AM VA-TOBACCO QUIT 5 TO < 15 YRS OR [facility] [place] [facility] Sep 04, 2017 11:09 AM QUIT TOBACCO USE > 7 YEARS AGO OR [facility] [place] [facility] Oct 16, 2016 09:08 AM QUIT TOBACCO USE > 7 YEARS AGO OR [facility] [place] [facility] Feb 20, 2015 10:58 AM QUIT TOBACCO USE > 7 YEARS AGO quit 2009-cigarettes and cigars for 45 years [facility] Advance Directives: All historical and current Section [...] Mar 23, 2014 ADVANCE DIRECTIVE ROSALINDA SHELBY [facility] Encounter Notes: All associated encounter notes This section contains the clinical notes associated to the Encounter. Date/Time Encounter Note(s) Provider Source Jan 13, 2024 04:32 PM DIABETOLOGY NOTE: LOCAL TITLE: INSULIN PUMP/CGM DOWNLOAD (T) STANDARD TITLE: DIABETOLOGY NOTE DATE OF NOTE: JAN 13, 2024@16:32 ENTRY DATE: JAN 13, 2024@16:32:42 AUTHOR: DOUGLAS ROSASIGNER: URGENCY: STATUS: COMPLETED Please select: Personal Continuous Glucose Monitor Date of Documentation:Dec Please see attached scanned document in [employer]. DX: Type 2 diabetes Sensor: Devon 2 /es/ DOUGLAS ROSAS, RN,BSN, [facility] DIABETES PROFESSOR OF VOICE, RN Signed: 01/13/2024 16:33 DOUGLAS ROSAS OR [facility] [facility] Jan 13, 2024 02:43 PM DIABETOLOGY CONSULT: LOCAL TITLE: CONSULT REPORT/DIABETES EDU STANDARD TITLE: DIABETOLOGY CONSULT DATE OF NOTE: JAN 13, 2024@14:43 ENTRY DATE: JAN 13, 2024@14:43:26 AUTHOR: DOUGLAS ROSAS EXP COSIGNER: URGENCY: STATUS: COMPLETED DIABETES EDUCATION DOCUMENTATION DIABETES SELF-MANAGEMENT EDUCATION AND SUPPORT (DSMES) PROGRAM Intake Assessment __JAN 13, 2024 INTRODUCTION [place] identified with 2 identifiers: (X)Full Name (X)Date of () Other: Demographics: Patient Name: TONY LOGAN JR :Nov Age: 83 Sex: MALE Race: WHITE MARITAL STATUS - No prior language recorded Contact info: [address] [place], [place] [address] PATIENT PHONE - COMBAT SERVICE INDICATED: No PERIOD OF SERVICE - [place] ERA DS - Disabilities Eligibility: SC LESS THAN 50% VERIFIED Total S/C %: 0 Primary NOK: KARIN LOGAN Relation: EXTENDED FAMILY M <street address not available> Phone: BVE BULLARD consented for any other persons present for visit: If yes, who and relationship to patient: REASON FOR EDUCATION VISIT TODAY: Diagnosed with Type 2 diabetes since 1981. He was in his 30s when diagnosed. Had an aortic valve replacement via cardiac cath last month. His product safety specialist is trying to get him dapagliflozin ([facility] is waiting to hear from product safety specialist). Had surgery in May to implant pacemaker. NAME OF REFERRING PROVIDER: Dr. Butts Source of referral/primary care provider: Inpatient (X) Outpatient On a scale of 1 to 10 with one being not confident and ten being very confident. How confident are you about being successful managing your diabetes? On a scale of 1 to 10 with one being not important and ten being very important. How important is diabetes management to you? VITALS Blood pressure:132/74 (01/06/2024 15:45) Heart rate:78 (01/06/2024 09:24) Respirations: 16 (01/06/2024 09:24) Temperature: 97.6 F [36.4 C] (01/06/2024 09:24) Oxygen saturation:Pulse Oximetry VITAL SIGNS SELECTED Measurement DT POx (L/MIN)(%) 01/06/2024 09:24 98 Pain: 0 (01/06/2024 09:24) WEIGHT: 180 lb [81.65 kg] (01/06/2024 09:24) HEIGHT: 66 in [167.6 cm] (11/13/2023 09:26) BMI: 29.1 LABS HEMOGLOBIN A1C TREND Collection DT Spec HGBA1c 11/05/2023 07:31 BLOOD 8.1 H 08/06/2023 07:31 BLOOD 7.7 H 05/05/2023 07:48 BLOOD 7.2 H 01/03/2023 09:54 BLOOD 7.8 H 10/01/2022 09:40 BLOOD 7.8 H CHEM 7 TREND LAB CUMULATIVE SELECTED Collection DT Spec GLUCOSE BUN CREATIN Sodium K+/Pot CL CO2 11/11/2023 09:05 SERUM 412 H 39 H 1.99 H 132 L 4.6 101 19 L 11/05/2023 07:31 SERUM 198 H 49 H 2.33 H 135 4.5 102 20 08/06/2023 07:31 SERUM 230 H 31 H 1.67 H 136 4.2 103 21 05/05/2023 07:48 SERUM 148 H 17 1.45 H 140 4.4 110 21 01/03/2023 09:54 SERUM 91 27 H 1.34 140 4.3 107 20 LAB CUMULATIVE SELECTED 2 No selection items chosen for this component. CHEM 7 Results Collection DT Spec Sodium K+/Pot CL CO2 GLUCOSE BUN 11/11/2023 09:05 SERUM 132 L 4.6 101 19 L 412 H 39 H 11/05/2023 07:31 SERUM 135 4.5 102 20 198 H 49 H 08/06/2023 07:31 SERUM 136 4.2 103 21 230 H 31 H 05/05/2023 07:48 SERUM 140 4.4 110 21 148 H 17 01/03/2023 09:54 SERUM 140 4.3 107 20 91 27 H 10/01/2022 09:40 SERUM 137 4.5 107 18 L 238 H 27 H 06/19/2022 07:36 SERUM 138 4.4 107 22 172 H 23 04/12/2022 08:21 SERUM 137 4.3 106 20 260 H 27 H 12/24/2021 09:37 SERUM 139 4.7 106 21 129 H 26 H 06/20/2021 08:13 SERUM 137 4.8 104 23 216 H 21 05/09/2020 11:00 SERUM 137 4.8 103 22 175 H 28 H 04/01/2019 08:51 SERUM 142 4.8 111 H 24 111 H 20 12/08/2018 09:59 SERUM 137 5.3 H 104 23 423 H 31 H 10/19/2018 08:39 SERUM 138 5.3 H 106 25 289 H 30 H 10/20/2017 08:39 SERUM 135 5.1 H 106 19 L 382 H 25 10/16/2016 10:04 SERUM 135 5.1 H 105 21 315 H 25 08/12/1996 08:41 SERUM 232 H 05/13/1996 09:11 SERUM 240 H 02/24/1996 09:54 SERUM 136 4.1 102 26 204 H 12/03/1995 08:34 SERUM 108 08/26/1995 07:38 SERUM 171 H 05/26/1995 09:52 SERUM 182 H 04/11/1995 07:58 SERUM 141 H 01/08/1995 07:03 SERUM 172 H 12/16/1994 07:03 SERUM 330 H 09/10/1994 07:10 SERUM 207 H 04/26/1994 07:00 SERUM 261 H 02/12/1994 13:38 SERUM 173 H 10/24/1993 07:07 SERUM 226 H 06/26/1993 07:15 SERUM 244 H 05/23/1993 16:01 SERUM 130 H 05/02/1993 07:36 SERUM 228 H 03/12/1993 07:12 SERUM 234 H 12/05/1992 07:25 SERUM 208 H 17 09/22/1992 07:30 SERUM 199 H 08/23/1992 14:57 SERUM 182 H 08/10/1992 07:13 SERUM 206 H 07/27/1992 07:08 SERUM 244 H 07/20/1992 07:09 SERUM 313 H 07/14/1992 07:24 SERUM 314 H 07/11/1992 15:34 SERUM 455 H* 03/13/1992 15:25 SERUM 220 H 10/26/1991 15:56 SERUM 100 07/30/1991 07:54 SERUM 235 H 07/06/1991 07:49 SERUM 251 H 04/05/1991 09:00 SERUM 198 H 01/12/1991 09:19 SERUM 193 H 09/10/1990 15:01 SERUM 113 07/29/1990 08:57 SERUM 273 H 07/14/1990 09:15 SERUM 335 H 07/13/1990 10:50 SERUM 427 H* 04/14/1990 09:55 SERUM 165 H 01/12/1990 11:15 SERUM 110 10/13/1989 13:46 SERUM 161 H 16 08/08/1989 08:50 SERUM 122 H 06/13/1989 07:15 SERUM 255 H 05/14/1989 07:00 SERUM 187 H 04/20/1987 15:07 SERUM 43 L* 04/20/1987 08:00 SERUM 141 H 04/14/1987 08:00 SERUM 142 H 04/12/1987 08:00 SERUM 134 L 4.2 102 25 154 H 18 LIPID PANEL TREND Collection DT Spec CHOL HDL CHO/HDL LDL-d LDL-c TRIG 11/05/2023 07:31 SERUM 140 49 2.9 72 94 05/05/2023 07:48 SERUM 86 31 L 2.8 40 74 06/19/2022 07:36 SERUM 119 33 L 3.6 61 126 12/24/2021 09:37 SERUM 146 38 L 3.8 76 161 H 06/20/2021 08:13 SERUM 114 31 L 3.7 60 113 CREATININE-EGFR 11/11/23 09:05 1.99 H 11/05/23 07:31 2.33 H 08/06/23 07:31 1.67 H EGFR - NONE FOUND ALLERGIES: Patient has answered NKA Living arrangements: X Alone- also a cat Spouse Family Friend Support system Diabetes health history: Diagnosed since 1981 Type of diabetes: Type 1 X Type 2 PRE diabetes Mother had diabetes- of liver disease Substance use: X Cigarettes- stopped 30 years ago, smoked since 14 years old. X Alcohol- quit in 1981 ([facility]) Marijuana- no Other- no None DIABETES SELF MANAGEMENT DIET: In the last 12 months, were there times when food did not last and there was no money to buy more? No, [employer] [place] in [place] offers a bag of groceries for Veterans. He does get help from them. Breakfast: eggs and oatmeal or other cereals (special K); coffee black Lunch: make his own soup with crackers, water Dinner: tea and pasta or beans or chicken, ham, frozen vegetables Snacks: chips, peanuts, not snacking too much Beverages consumed: Goal weight desired: lbs 173.8 lbs this AM, it has been fluctuating 3-4 lbs. SLEEP Typical sleep pattern: Not good, does have sleep apnea and does not use the machine. He has trouble sleeping with it. It keeps him up. Bedtime: 9 pm. Waketime: 4-5 am. Naps: once and a while Comments: PHYSICAL ACTIVITY Type: Admits he has not been doing much since his heart surgery. Has cardiac rehab at [facility] next month. Can't walk far without resting. He use to walk a lot before his surgery. Level: Frequency: Duration: Limitations: Can't walk a long distance without breathing hard. DIABETES MEDICATIONS Glargine 10 units in the AM and 10 units in the PM. Aspart 8 units for eggs, 12 units for cereal AM, 5 units noon, 9 units dinner Previous medications: Empagliflozin- had diarrhea. STORAGE OF INSULIN/OTHER INJECTABLES: INJECTIONS SITES: SITES VIEWED: ANY EVIDENCE OF LIPOHYPERTROPHY History of hypoglycemia: Symptoms: Had a few 1-2x/month. Feels sweating, shaking, Frequency: Typical treatment: glucose tablets 3-4 Medic ID: No, interested in one from [place] Glucagon kit: No MONITORING Currently using the Biodirection 2 sensor and cytogenetics technologist and able to download it during appointment. Name: Tony Logan Date of : 1940 Report Period: 12/14/2023 - 01/10/2024 (28 days) Generated: 01/13/2024 % Time CGM Active: 88% Glucose Statistics and Targets Average Glucose: 255 mg/dL Glucose Management Indicator (GMI): 9.4% Glucose Variability (%CV): 27.5% Target Range: 70 - 180 mg/dL Time in Ranges Very High: >250 mg/dL --- 51% High: 181 - 250 mg/dL --- 35% Target Range: 70 - 180 mg/dL --- 14% Low: 54 - 69 mg/dL --- 0% Very Low: <54 mg/dL --- 0% The main pattern noted on download is elevated glucose between the hours of 12 am till 9 pm and again between 11 pm until 12 am. No significant pattern of hypoglycemia noted. Had two lows in the last month. Sensor Glucose What is your Time in Range (TIR) target? What is your target A1c? Diabetes related illnesses or hospitalizations in the past year? Comments: DIABETES DISTRESS On a scale of 1-6 where 1 is no problem and 6 is a very serious problem, rate the following: Feeling overwhelmed by the demands of living with diabetes: 2, he feels use to it. Feeling that I am failing my diabetes routine: 2 DIABETIC-RELATED CHRONIC COMPLICATIONS EYES: Retinopathy- no Maculopathy- no Glaucoma- no X Cataracts- had surgery in 2009. Blindness- no Blurring- no X Denied concerns Comments: Missed his appointment last year and has one coming up. It has been close to 2 years. [facility] KIDNEYS: Difficulty emptying bladder- no Urinary tract infection- no X Proteinuria- mild Nephropathy- no Denied concerns Comments: Has low GFR and mildly higher microalbumin FEET/LEGS/SKIN: Dry skin Previous/current ulcer- no skin break down Hard/thick toenails- no Palpable pulses Pain on walking- no, but does get tired quickly Charcot joint Pain at rest- does have restless feelings in feet and legs Gangrene/amputation- no Tingling/Numbness: Hands X Feet- left foot (veins replaced, had to clean the arteries, placed a bovine vein) Has swelling in his leg all the time. Denied concerns Comments: Last seen by diesel plant operator this month. CARDIOVASCULAR/CEREBROVASCU LAR Pain/palpitations- no, has a heart murmur Angina pectoris Myocardial infarction- No Hypertension- being treated Hyperlipidemia- being treated TIA- no Stroke (CVA)- no Denied concerns Comments: Aortic valve replacement and pacemaker installed. OTHER MEDICAL CONCERNS: Prior diabetes education: SMART GOALS HEALTH GOAL #1: In order to meet this goal, I will: Start using the Devon 3 sensor today. HEALTH GOAL #2: In order to meet this goal, I will: Clinical or Quality of Life outcome baseline: ASSESSMENT: Kindly referred by Dr. Butts. Aimee comes to diabetes education to learn how to use the Devon 3 sensor. Currently using the Devon 2 sensor. Reports his blood sugars have been elevated recently and he is not sure why. He questions if it related to his recent hospitalizations for his heart. He had a pacemaker implanted in May and an aortic valve replaced last month. Aimee's last A1C was 8.1% in October. He no longer has his meter or supplies to check his glucose. He reports running out of sensor supplies over the weekend, therefore, we discussed the importance of having a meter and test strips as a back up plan when he cannot use the sensor. We also discussed how there is a shortage of supplies for the Devon 3 sensor and to reach out if he has trouble getting his supplies. We may need to switch him to the Dexcom G7 sensor. 's product safety specialist wants to prescribe him dapagliflozin, however, he was on empagliflozin in the past and stopped taking it due to diarrhea. was encouraged to increase his insulin as follows: - Increase Glargine 11 units in the AM and 11 units in the PM. - Increase Aspart 9 units for eggs, 13 units for cereal AM, 6 units noon, 9 units dinner [place] will return to diabetes education in 1 month to review his sensor download. Learning limitations/special education needs: None Barriers to learning: Visual Auditory Literacy Language X None Cultural influences: None Health beliefs/attitudes/feelings about diabetes: None Readiness to learn: Yes Will significant other participate in program? No TEACHING MATERIALS GIVEN: Devon 3 sensors and cytogenetics technologist. EDUCATION: -Reviewed how to insert the Devon 3 sensor. -Reviewed how to program the new cytogenetics technologist. -Reviewed how to program in the alerts. -Reviewed how this sensor is different from the Devon 2 sensor. -Reviewed sensor download from the Devon 2 sensor. INSTRUCTIONS: -Start using the Devon 3 sensor to monitor blood sugars. -Please keep the Devon 2 cytogenetics technologist incase there is a shortage of Devon 3 sensors. -Adjust insulin as follows: - Increase Glargine 11 units in the AM and 11 units in the PM (from 10 units twice a day) - Increase Aspart 9 units for eggs, 13 units for cereal AM, 6 units noon, 9 units dinner (from 8 units with eggs, 12 units with cereal, 5 units at noon and 9 units at dinner). -Have meter and test strips in the house incase you need to use it as a back up plan. -Please call with any questions or concerns. -Follow up with Diabetes Education in 1 month. Patient/Family Verbalized Understanding FUTURE APPOINTMENTS: 01/13/2024 15:00 CWM/NO/DIABETES EDU1 03/03/2024 14:00 NHM/OPTOMETRY/SHELLEY/ 04/07/2024 08:00 CWM/NO/PODIATRY/NAIL 07/08/2024 09:00 CWM/NO/PACT 7 DM type is : Type 2 diabetes Length of Visit: 60 minutes /jus/ DOUGLAS ROSAS, RN,BSN, [facility] DIABETES PROFESSOR OF VOICE, RN Signed: 01/13/2024 16:31 Receipt Acknowledged By: 01/13/2024 18:02 /jus/ MIAH BUTTS MD STAFF PHYSICIAN 01/14/2024 07:35 /jus/ Abad Russell DNP, MILKING MACHINE TECHNICIAN-BC, CNL Primary Care Nurse Practitioner DOUGLAS ROSAS [facility]
--- OUTSIDE RECORDS SUMMARY | 2024-03-26 16:28 | XMS_ITS | Encounter Summary ---
Author Name [facility] [place] Organization [place] Address [address] [place] [address] Care Team Providers Care District Court Justice Name Role Phone AJAY APODACA Primary Care [...] PART A Nov 22, 2006 PART A [id number] TONY CASTELLON PATIENT MEDICARE (WNR) MEDICARE (M) PART B Nov 22, 2006 PART B [id number] TONY CASTELLON PATIENT MEDICARE (WNR) MEDICARE (M) PART A Nov 22, 2006 PART A [id number] TONY CASTELLON PATIENT MEDICARE (WNR) MEDICARE (M) PART B Nov 22, 2006 PART B [id number] TONY CASTELLON PATIENT FOR LIFE TFL* Apr 20, 2014 [id number] SUKHJINDER CASTELLON JR PATIENT Selected Encounter This section includes the information on record at [place] for the Encounter. Date/Time Encounter Type Encounter Description Reason Pro vider Source Dec 31, 2023 02:05 PM Outpatient Encounter GENERAL INTERNAL MEDICINE IHE Encounter Template Text not used by [place] Plan of Treatment: Future Appointments (+ 6 months) and Future Tests (+/- 45 days) The Plan of Treatment section includes future care activities for the patient from all [place] [facility] This section includes future appointments and future orders which are active, pending or scheduled. Future Appointments This section includes appointments that were scheduled to occur 6 months from the date of the Encounter, up to a maximum of 20 appointments. The data comes from all [place] treatment facilities. Appointment Date/Time Appointment Type Appointme nt Facility Name Jan 06, 2024 09:30 AM AM[place]UL[place]ORY [place] [facility] [place] [facility] Jan 13, 2024 03:00 PM AM[place]ULATORY [place] [facility] [place] [facility] Jan 19, 2024 08:30 AM AMBULATORY - REHAB MEDICIN E [facility] [place] [facility] Feb 23, 2024 03:00 PM AM[place]ULATORY [place] [facility] [place] [facility] Mar 03, 2024 02:00 PM AM[place]ULATORY [place] [facility] [place] [facility] Mar 03, 2024 02:30 PM AM[place]ULATORY [place]IC[place] [facility] [place] [facility] Mar 30, 2024 03:00 PM AM[place]ULATORY [place] [facility] [place] [facility] Mar 31, 2024 02:30 PM AM[place]ULATORY [place]ICINE [place] [facility] [place] [facility] Apr 07, 2024 08:00 AM AMBULATORY [place]IC[place] [facility] [place] [facility] May 17, 2024 02:00 PM AMBULATORY [place]ICINE [place] [facility] [place] [facility] Lab Results: +/- 30 days of the encounter This section includes the Chemistry and Hematology Lab Results on record with [place] for the patient. Radiology Reports and Pathology Reports are provided separately, in subsequent sections. Lab Results This section contains the Chemistry/Hematology Results that were resulted 30 days before or 30 daysafter the date of the Encounter. Date/Time Source Result Type Result - Unit Interpretation Reference Range Comment Jan 29, 2024 09:49 AM [place] [facility] [place] [facility] CREATININE (eGFR 2020) Specimen Type: SERUM No comment entered. Ordering Provider: LAURA APODACA Report Released Date/Time: Jan 27, 2024 07:33 AM Reporting Lab: [address] [address] Performing Lab: [address] [address] CREATININE, Serum 1.86 mg/dL H 0.50-1.40 eGFR(CKD-EPI 2020) 36 mL/min L >60 Jan 29, 2024 09:49 AM [facility] PT & INR ([facility]) Specimen Type: PLASMA No comment entered. Ordering Provider: LAURA APODACA Report Released Date/Time: Jan 27, 2024 07:33 AM Reporting Lab: [address] [address] Performing Lab: [address] [address] INR 1.3 PROTIME 14.6 s H 10.0-13.1 Jan 29, 2024 09:49 AM [facility] LIVER FUNCTION Specimen Type: SERUM No comment entered. Ordering Provider: LAURA APODACA Report Released Date/Time: Jan 27, 2024 07:33 AM Reporting Lab: [address] [phone] Performing Lab: [address] [address] PROTEIN,TOTAL 7.4 g/dL 6.0-8.3 ALBUMIN 3.2 g/dL L 3.5-5.0 ALKALINE PHOSPHATASE 66 U/L 40-150 AST 30 U/L 5-34 ALT 31 U/L BILIRUBIN, TOTAL 0.4 mg/dL 0.2-1.2 Jan 29, 2024 09:49 AM [facility] CBC Specimen Type: BLOOD No comment entered. Ordering Provider: LAURA APODACA Report Released Date/Time: Jan 27, 2024 07:33 AM Reporting Lab: [address] [address] Performing Lab: [facility] [place] [facility] [address] [facility] [address] WBC 6.95 10*3/uL 4.50-11.00 RBC 3.19 10*6/uL [...] and tobacco- related health factors from the [place] facility where the Encounter took place. Current Smoking Status This section includes the most current smoking, or tobacco-related health factor, from the [place] facility where the Encounter took place. Date/Time Current Smoking Status Comment [facility] Dec 24, 2022 10:30 AM VA-TOBACCO FORMER USER [place] [facility] [place] [facility] Tobacco Use History This section includes a history of the smoking, or tobacco-related health factors, that were collected on or before the date of the Encounter. The data comes from the [place] facility where the Encounter took place. Date/Time Smoking Status/Tobac co Use Comment Facility Dec 24, 2022 10:30 AM VA-TOBACCO QUIT 15 YRS OR MORE [facility] [place] [facility] Dec 24, 2021 10:00 AM VA-TOBACCO FORMER USER [facility] [place] [facility] Dec 24, 2021 10:00 AM VA-TOBACCO QUIT 5 TO < 15 YRS [facility] [place] [facility] Dec 14, 2020 08:30 AM VA-TOBACCO FORMER USER [facility] [place] [facility] Dec 14, 2020 08:30 AM VA-TOBACCO QUIT 5 TO < 15 YRS [facility] [place] [facility] Nov 15, 2019 11:00 AM VA-TOBACCO FORMER USER [facility] [place] [facility] Nov 15, 2019 11:00 AM VA-TOBACCO QUIT 5 TO < 15 YRS [facility] [place] [facility] Oct 20, 2017 08:19 AM [place] Oct 20, 2017 08:19 AM VA-TOBACCO QUIT 5 TO < 15 YRS [facility] Sep 04, 2017 11:09 AM QUIT TOBACCO USE > 7 YEARS AGO [facility] Oct 16, 2016 09:08 AM QUIT TOBACCO USE > 7 YEARS AGO [facility] Feb 20, 2015 10:58 AM QUIT TOBACCO USE > 7 YEARS AGO quit 2009-cigarettes and cigars for 45 years [facility] Advance Directives: All historical and current Section Date Range: From patient's date of to the date document was created. This section includes ALL of a patient's completed or amended [place] Advance and Rescinded Directives. The entries below indicate that a directive exists for the patient, but an actual copy is not included with this document. The data comes from all [place] facilities. Date Advance Directives Provider Source Mar 23, 2014 ADVANCE DIRECTIVE ROSALINDA SHELBY [facility] Encounter Notes: All associated encounter notes This section contains the clinical notes associated to the Encounter. Date/Time Encounter Note(s) Provider Source Dec 31, 2023 02:05 PM PREVENTIVE MEDICIN E NURSING NOTE: LOCAL TITLE: CLINICAL REMINDERS/NURSING STANDARD TITLE: PREVENTIVE MEDICINE NURSING NOTE DATE OF NOTE: DEC 31, 2023@14:05 ENTRY DATE: DEC 31, 2023@14:05:26 AUTHOR: ROGELIO JONAS EXP COSIGNER: URGENCY: STATUS: COMPLETED Influenza Immunization: The patient has received the seasonal influenza vaccine for the current season at another location. Documented: INFLUENZA, UNSPECIFIED FORMULATION Historical Date Administered: Dec 25, 2023 Series: Complete Outside Location: Outside Healthcare Provider Private PCP Dr. Pwoell Information Source: FROM PATIENT'S RECALL Suicide Screen: C-SSRS Screening [place] Suicide Severity Rating Scale (C-SSRS) screener 1. Over the past month, have you wished you were or wished you could go to sleep and not wake up? No 2. Over the past month, have you had any actual thoughts of killing yourself? No 3. Over the past month, have you been thinking about how you might do this? Response not required due to responses to other questions. 4. Over the past month, have you had these thoughts and had some intention of acting on them? Response not required due to responses to other questions. 5. Over the past month, have you started to work out or worked out the details of how to kill yourself? Response not required due to responses to other questions. 6. If yes, at any time in the past month did you intend to carry out this plan? Response not required due to responses to other questions. 7. In your lifetime, have you ever done anything, started to do anything, or prepared to do anything to end your life (for example, collected pills, obtained a gun, gave away valuables, went to the roof but didn't jump)? No 8. If YES, was this within the past 3 months? Response not required due to responses to other questions. /jus/ ROGELIO JONAS LPN LICENSED PRACTICAL NURSE Signed: 12/31/2023 14:07 ROGELIO JONAS [facility]
--- OUTSIDE RECORDS SUMMARY | 2024-03-26 16:28 | XMS_ITS | Encounter Summary ---
Author Name [facility] [place] Organization [facility] of [facility] Affairs [place] Address [address] [place] [address] Care Team Providers Care Autoclave Operator Name Role Phone AJAY APODACA Primary [...] PART A Nov 22, 2006 PART A [id number] TONY CASTELLON PATIENT MEDICARE (WNR) MEDICARE (M) PART B Nov 22, 2006 PART B [id number] TONY CASTELLON PATIENT MEDICARE (WNR) MEDICARE (M) PART A Nov 22, 2006 PART A [id number] TONY CASTELLON PATIENT MEDICARE (WNR) MEDICARE (M) PART B Nov 22, 2006 PART B [id number] TONY CASTELLON PATIENT FOR LIFE TFL* Apr 20, 2014 [id number] SUKHJINDER CASTELLON JR PATIENT Selected Encounter This section includes the information on record at [place] for the Encounter. Date/Time Encounter Type Encounter Description Reason Pro vider Source Feb 24, 2024 06:52 PM Outpatient Encounter ENDOCRINOLOGY MIAH BUTTS Encounter Template Text not used by [place] Plan of Treatment: Future Appointments (+ 6 months) and Future Tests (+/- 45 days) The Plan of Treatment section includes future care activities for the [facility] [place] [facility] This section includes future appointments and future orders which are active, pending or scheduled. Future Appointments This section includes appointments that were scheduled to occur 6 months from the date of the Encounter, up to a maximum of 20 appointments. The data comes from all [facility]. Appointment Date/Time Appointment Type Appointme nt Facility Name Mar 03, 2024 02:00 PM AMBULATORY - [place]ICINE [place] [facility] [place] [place] [facility] Mar 03, 2024 02:30 PM AMBULATORY MEDICINE [place] [facility] [place] [facility] Mar 30, 2024 03:00 PM AMBULATORY - MEDICINE [place] [facility] [place] [facility] Mar 31, 2024 02:30 PM AMBULATORY MEDICINE [place] [facility] [place] [facility] Apr 07, 2024 08:00 AM AMBULATORY - MEDICINE [place] [facility] [place] [facility] May 17, 2024 02:00 PM AMBULATORY - MEDICINE [place] [facility] [place] [facility] Jul 08, 2024 09:00 AM AMBULATORY - MEDICINE [place] [facility] [place] [facility] Active, Pending, and Scheduled Orders This section includes a listing of several types of active, pending, and scheduled orders, including clinic medications orders, diagnostic test orders, procedure orders and consult orders; where the start date of the order is 45 days before the date of the Encounter or 45 days after the date of theEncounter. The data comes from all [facility]. Test Date/Time Test Type Test Details Facility Name Mar 26, 2024 12:00 AM Laboratory - Chemistry Order HEMOGLOBIN A1C PANEL BLOOD (LAV-BLOOD) [facility] Mar 26, 2024 12:00 AM Laboratory - Chemistry Order MICROALBUMIN CREATININE RATIO PANEL URINE (RANDOM) [facility] Mar 26, 2024 12:00 AM Laboratory - Chemistry Order LIPID PANEL FASTING BLOOD (SST-SERUM) [facility] Mar 26, 2024 12:00 AM Laboratory - Chemistry Order BASIC METABOLIC PANEL (non-fasting) BLOOD (SST-SERUM) SP [facility] Lab Results: +/- 30 days of the encounter This section includes the Chemistry and Hematology Lab Results on record with [place] for the patient. Radiology Reports and Pathology Reports are provided separately, in subsequent sections. Lab Results This section contains the Chemistry/Hematology Results that were resulted 30 days before or 30 daysafter the date of the Encounter. Date/Time Source Result Type Result - Unit Interpretation Reference Range Comment Jan 29, 2024 09:49 AM [facility] CREATININE (eGFR 2020) Specimen Type: SERUM No comment entered. Ordering Provider: LAURA APODACA Report Released Date/Time: Jan 27, 2024 07:33 AM Reporting Lab: [address] [address] Performing Lab: [address] [address] CREATININE, Serum 1.86 mg/dL H 0.50-1.40 eGFR(CKD-EPI 2020) 36 mL/min L >60 Jan 29, 2024 09:49 AM [facility] PT & INR ([facility]) Specimen Type: PLASMA No comment entered. Ordering Provider: LAURA APODACA Report Released Date/Time: Jan 27, 2024 07:33 AM Reporting Lab: [address] [address] Performing Lab: [address] [address] INR 1.3 PROTIME 14.6 s H 10.0-13.1 Jan 29, 2024 09:49 AM [facility] LIVER FUNCTION Specimen Type: SERUM No comment entered. Ordering Provider: LAURA APODACA Report Released Date/Time: Jan 27, 2024 07:33 AM Reporting Lab: [address] [address] Performing Lab: [address] [address] PROTEIN,TOTAL 7.4 g/dL 6.0-8.3 ALBUMIN 3.2 g/dL L 3.5-5.0 ALKALINE PHOSPHATASE 66 U/L 40-150 AST 30 U/L 5-34 ALT 31 U/L BILIRUBIN, TOTAL 0.4 mg/dL 0.2-1.2 Jan 29, 2024 09:49 AM [facility] CBC Specimen Type: BLOOD No comment entered. Ordering Provider: LAURA APODACA Report Released Date/Time: Jan 27, 2024 07:33 AM Reporting Lab: [address] [address] Performing Lab: [address] [address] WBC 6.95 10*3/uL 4.50-11.00 RBC 3.19 10*6/uL [...] and tobacco- related health factors from the [place] facility where the Encounter took place. Current Smoking Status This section includes the most current smoking, or tobacco-related health factor, from the [place] facility where the Encounter took place. Date/Time Current Smoking Status Comment [facility] Jan 06, 2024 09:30 AM VA-TOBACCO FORMER USER [facility] Tobacco Use History This section includes a history of the smoking, or tobacco-related health factors, that were collected on or before the date of the Encounter. The data comes from the [place] facility where the Encounter took place. Date/Time Smoking Status/Tobac co Use Comment Facility Jan 06, 2024 09:30 AM VA-TOBACCO QUIT 15 YRS OR MORE [facility] Dec 24, 2022 10:30 AM VA-TOBACCO FORMER USER [facility] [place] [facility] Dec 24, 2022 10:30 AM VA-TOBACCO QUIT 15 YRS OR MORE [facility] [place] [facility] Dec 24, 2021 10:00 AM VA-TOBACCO FORMER USER [facility] [place] [facility] Dec 24, 2021 10:00 AM VA-TOBACCO QUIT 5 TO < 15 YRS [facility] [place] [facility] Dec 14, 2020 08:30 AM VA-TOBACCO FORMER USER [facility] [place] [facility] Dec 14, 2020 08:30 AM VA-TOBACCO QUIT 5 TO < 15 YRS [facility] [place] [facility] Nov 15, 2019 11:00 AM VA-TOBACCO FORMER USER [facility] [place] [facility] Nov 15, 2019 11:00 AM VA-TOBACCO QUIT 5 TO < 15 YRS [place] [facility] [place] [place] [facility] Oct 20, 2017 08:19 AM VA-TOBACCO FORMER USER [place] [facility] [place] [facility] Oct 20, 2017 08:19 AM VA-TOBACCO QUIT 5 TO < 15 YRS [facility] [place] [facility] Sep 04, 2017 11:09 AM QUIT TOBACCO USE > 7 YEARS AGO [facility] [place] [facility] Oct 16, 2016 09:08 AM QUIT TOBACCO USE > 7 YEARS AGO [place] [facility] [place] [facility] Feb 20, 2015 10:58 AM QUIT TOBACCO USE > 7 YEARS AGO quit 2009-cigarettes and cigars for 45 years [place] [facility] [place] [facility] Advance Directives: All historical and current Section Date Range: From patient's date of to the date document was created. This section includes ALL of a patient's completed or amended [place] Advance and Rescinded Directives. The entries below indicate that a directive exists for the patient, but an actual copy is not included with this document. The data comes from all [place] facilities. Date Advance Directives Provider Source Mar 23, 2014 ADVANCE DIRECTIVE ROSALINDA SHELBY [place] [facility] [place] [facility] Encounter Notes: All associated encounter notes This section contains the clinical notes associated to the Encounter. Date/Time Encounter Note(s) Provider Source Feb 24, 2024 06:52 PM ENDOCRINOLOGY SECU RE MESSAGING: LOCAL TITLE: ENDOCRINOLOGY SECURE MESSAGING STANDARD TITLE: ENDOCRINOLOGY SECURE MESSAGING DATE OF NOTE: FEB 24, 2024@18:52 ENTRY DATE: FEB 24, 2024@18:52:42 AUTHOR: MIAH BUTTS COSIGNER: URGENCY: STATUS: COMPLETED ------Original Message ----- Sent: 02/24/2024 05:40 PM ET From: TONY CASTELLON To: Jonathan [email or web address]@ Subject: Medication:renew meds please renew RX # [id number] Devon 3 Thank you ------Original Message ----- Sent: 02/24/2024 06:52 PM ET From: MIAH BUTTS To: TONY CASTELLON Subject: Medication:renew meds Good evening! I have ordered these for you. Be well! /jus/ MIAH BUTTS MD STAFF PHYSICIAN Signed: 02/24/2024 18:52 MIAH BUTTS [facility]
--- OUTSIDE RECORDS SUMMARY | 2024-03-26 16:28 | XMS_ITS | Encounter Summary ---
Author Name [facility] [place] Address [address] [place] [id number] Care Team Providers Care General House Worker Name Role Phone AJAY APODACA Primary Care [...] PART A Nov 22, 2006 PART A [id number] TONY CASTELLON PATIENT MEDICARE (WNR) MEDICARE (M) PART B Nov 22, 2006 PART B [id number] TONY CASTELLON PATIENT MEDICARE (WNR) MEDICARE (M) PART A Nov 22, 2006 PART A [id number] [id number] TONY CASTELLON PATIENT MEDICARE (WNR) MEDICARE (M) PART B Nov 22, 2006 PART B [id number] TONY CASTELLON PATIENT FOR LIFE TFL* Apr 20, 2014 [id number] SUKHJINDER CASTELLON JR PATIENT Selected Encounter This section includes the information on record at [place] for the Encounter. Date/Time Encounter Type Encounter Description Reason Provider Source Dec 31, 2023 02:00 PM [facility] 6 OR MORE PODIATRY ICD-10-CM E11.42 Type 2 diabetes mellitus with diabetic polyneuropathy ROGELIO JONAS Jose Encounter Template Text not used by [place] Assessments - Encounter Diagnoses This section includes the primary and secondary diagnoses documented for the Encounter. Date/Time Primary/Secondary Diagnosis Diagnosis Name Provider Source Dec 31, 2023 01:55 PM PRIMARY Type 2 diabetes mellitus with diabetic polyneuropathy ROGELIO JONAS [place] [facility] [place] [facility] Dec 31, 2023 01:55 PM SECONDARY Nail dystrophy ROGELIO JONAS [place] [facility] [place] [facility] Dec 31, 2023 01:55 PM SECONDARY Peripheral vascular disease, unspecified ROGELIO JONAS [place] [facility] [facility] [place] [facility] Plan of Treatment: Future Appointments (+ 6 months) and Future Tests (+/- 45 days) The Plan of Treatment section includes future care activities for the patient from all [place] [facility]. This section includes future appointments and future orders which are active, pending or scheduled. Future Appointments This section includes appointments that were scheduled to occur 6 months from the date of the Encounter, up to a maximum of 20 appointments. The data comes from all [place] treatment facilities. Appointment Date/Time Appointment Type Appointme nt Facility Name Jan 06, 2024 09:30 AM AMBULATORY [place]ICINE [place] [facility] [place] [facility] Jan 13, 2024 03:00 PM AMBULATORY - MEDICINE [place] [facility] [facility] Jan 19, 2024 08:30 AM AMBULATORY - [place] MEDICIN E [place] [facility] [place] [facility] Feb 23, 2024 03:00 PM AMBULATORY - MEDICINE [place] [facility] [facility] Mar 03, 2024 02:00 PM AMBULATORY - MEDICINE [place] [facility] [facility] Mar 03, 2024 02:30 PM AMBULATORY - MEDICINE [place] [facility] [facility] Mar 30, 2024 03:00 PM AMBULATORY - MEDICINE [place] [facility] [place] [facility] Mar 31, 2024 02:30 PM AM[place]ULATORY [place] MEDICINE [place] [facility] [facility] Apr 07, 2024 08:00 AM [facility] May 17, 2024 02:00 PM [facility] Lab Results: +/- 30 days of the encounter This section includes the Chemistry and Hematology Lab Results on record with [place] for the patient. Radiology Reports and Pathology Reports are provided separately, in subsequent sections. Lab Results This section contains the Chemistry/Hematology Results that were resulted 30 days before or 30 daysafter the date of the Encounter. Date/Time Source Result Type Result - Unit Interpretation Reference Range Comment Jan 29, 2024 09:49 AM [facility] CREATININE (eGFR 2020) Specimen Type: SERUM No comment entered. Ordering Provider: LAURA APODACA Report Released Date/Time: Jan 27, 2024 07:33 AM Reporting Lab: [address] [address] Performing Lab: [address] [address] CREATININE, Serum 1.86 mg/dL H 0.50-1.40 eGFR(CKD-EPI 2020) 36 mL/min L >60 Jan 29, 2024 09:49 AM [facility] PT & INR (COU[facility]ADIN) Specimen Type: PLASMA No comment entered. Ordering Provider: LAURA APODACA Report Released Date/Time: Jan 27, 2024 07:33 AM Reporting Lab: [address] [address] Performing Lab: [facility] [address] INR 1.3 PROTIME 14.6 s H 10.0-13.1 Jan 29, 2024 09:49 AM [facility] LIVER FUNCTION Specimen Type: SERUM No comment entered. Ordering Provider: LAURA APODACA Report Released Date/Time: Jan 27, 2024 07:33 AM Reporting Lab: [address] [address] Performing Lab: [address] [address] PROTEIN,TOTAL 7.4 g/dL 6.0-8.3 ALBUMIN 3.2 g/dL L 3.5-5.0 ALKALINE PHOSPHATASE 66 U/L 40-150 AST 30 U/L 5-34 ALT 31 U/L BILIRUBIN, TOTAL 0.4 mg/dL 0.2-1.2 Jan 29, 2024 09:49 AM [facility] CBC Specimen Type: BLOOD No comment entered. Ordering Provider: LAURA APODACA Report Released Date/Time: Jan 27, 2024 07:33 AM Reporting Lab: [address] [address] Performing Lab: [address] [address] WBC 6.95 10*3/uL 4.50-11.00 RBC 3.19 10*6/uL [...] and tobacco- related health factors from the [place] facility where the Encounter took place. Current Smoking Status This section includes the most current smoking, or tobacco-related health factor, from the [place] facility where the Encounter took place. Date/Time Current Smoking Status Comment [facility] it Dec 24, 2022 10:30 AM [place]-TOBACCO QUIT 15 YRS OR MORE [facility] Tobacco Use History This section includes a history of the smoking, or tobacco-related health factors, that were collected on or before the date of the Encounter. The data comes from the [place] facility where the Encounter took place. Date/Time Smoking Status/Tobac co Use Comment Facility Dec 24, 2022 10:30 AM [place]-TOBACCO QUIT 15 YRS OR MORE [facility] Dec 24, 2021 10:00 AM VA-TOBACCO FORMER USER [place] [facility] [place] [facility] Dec 24, 2021 10:00 AM VA-TOBACCO QUIT 5 TO < 15 YRS [place] [facility] [place] [facility] Dec 14, 2020 08:30 AM VA-TOBACCO FORMER USER [place] [facility] [facility] Dec 14, 2020 08:30 AM VA-TOBACCO QUIT 5 TO < 15 YRS [place] [facility] [facility] Nov 15, 2019 11:00 AM VA-TOBACCO FORMER USER [place] [facility] [facility] Nov 15, 2019 11:00 AM VA-TOBACCO QUIT 5 TO < 15 YRS [place] [facility] [facility] Oct 20, 2017 08:19 AM VA-TOBACCO FORMER USER [place] [facility] [facility] Oct 20, 2017 08:19 AM VA-TOBACCO QUIT 5 TO < 15 YRS [place] [facility] [facility] Sep 04, 2017 11:09 AM QUIT TOBACCO USE > 7 YEARS AGO [place] [facility] [facility] Oct 16, 2016 09:08 AM QUIT TOBACCO USE > 7 YEARS AGO [place] [facility] [facility] Feb 20, 2015 10:58 AM QUIT TOBACCO USE > 7 YEARS AGO quit 2009-cigarettes and cigars for 45 years [facility] Advance Directives: All historical and current Section Date Range: From patient's date of to the date document was created. This section includes ALL of a patient's completed or amended [place] Advance and Rescinded Directives. The entries below indicate that a directive exists for the patient, but an actual copy is not included with this document. The data comes from all [place] facilities. Date Advance Directives Provider Source Mar 23, 2014 ADVANCE DIRECTIVE ROSALINDA SHELBY [place] [facility] [facility] Encounter Notes: All associated encounter notes This section contains the clinical notes associated to the Encounter. Date/Time Encounter Note(s) Provider Source Dec 31, 2023 01:51 PM NURSING OUTPATIENT NOTE: LOCAL TITLE: NURSING/SPECIALTY CLINIC NOTE STANDARD TITLE: NURSING OUTPATIENT NOTE DATE OF NOTE: DEC 31, 2023@13:51 ENTRY DATE: DEC 31, 2023@13:51:39 AUTHOR: ROGELIO JONAS EXP COSIGNER: URGENCY: STATUS: COMPLETED [place] seen [facility] for continued foot care. [place] has a history of Diabetes and is unable to trim his/her own nails. Ambulates: [X]self [ ]wheelchair can transfer [ ]wheelchair cannot transfer [x ]without assistance [ ]with assistance of Bilateral: Pedal pulses: Right Foot: Dorsalis Pedis - palpable [x ] non-palpable[ ] Posterior Tibial - palpable[x ] non-palpable[ ] Left Foot: Audiable with doppler Dorsalis Pedis - palpable [ ] non-palpable [x ] Posterior Tibial - palpable [ ] non-palpable[x ] Pedal sensation: Right Foot: [x ] Intact [ ] Absent out of 10 sites Left Foot: [x ] Intact [ ] Absent out of 10 sites Skin Temperature: [x ] Warm to warm, proximal to distal [ ] Warm to cool/cold, proximal to distal Pedal skin: [x ] Intact [ ] Dry [ ] Cracked [ ] Discolored Webspaces: [x ] Intact [x ] Clean [ ] Soiled [ ] Macerated [ ] Dry Nails: [x ] Thickened [x ] Elongated [x ] Dystrophic [ ] Discolored [ ] Fungal [ ] Incurvated [ ] Subungual debri Hyperkeratosis [ ] Yes, Locations: [x ] No Open lesions/wounds: [ ] Yes, Locations: [x ] No Amputations: [ ] Yes, Locations: [x ] No Edema present: ( x ) Yes Left lower leg and ankle ( ) NO Podiatric Problem List: [x ] Diabetes mellitus [x ] Peripheral vascular disease [x ] Neuropathy [ ] Onychomycosis [x ] Dystrophic toenails [ ] Hyperkeratosis/calluses [ ] Xerosis/dry skin [ ] Other: Treatment: [x ] Nails x 10 debrided in length and thickness without incident [ ] Hyperkeratotic lesions were grinded down with eletric grinder operator tool and debrided without incidence. [x ]Patient education educated about proper foot care and encouraged to check feet daily for injuries and wounds [x ] Instructed to moisturize feet daily but not in-between toes Patient is to RTC in 3 months. /jus/ ROGELIO JONAS LPN LICENSED PRACTICAL NURSE Signed: 12/31/2023 13:55 Receipt Acknowledged By: 12/31/2023 15:08 /jus/ BLADE DEUTSCH DPM PODIATRY ATTENDING [facility]IO [facility]AS [facility]
--- OUTSIDE RECORDS SUMMARY | 2024-03-26 16:28 | XMS_ITS | Encounter Summary ---
Author Name [facility] [place] Organization [facility] Address [address] [place] [address] Care Team Providers Care Education Spec Name Role Phone AJAY APODACA Primary Care [...] PART A Nov 22, 2006 PART A [id number] TONY CASTELLON PATIENT MEDICARE (WNR) MEDICARE (M) PART B Nov 22, 2006 PART B [phone] TONY CASTELLON PATIENT MEDICARE (WNR) MEDICARE (M) PART A Nov 22, 2006 PART A [id number] TONY CASTELLON PATIENT MEDICARE (WNR) MEDICARE (M) PART B Nov 22, 2006 PART B [id number] TONY CASTELLON PATIENT FOR LIFE TFL* Apr 20, 2014 [id number] SUKHJINDER CASTELLON JR PATIENT Selected Encounter This section includes the information on record at [place] for the Encounter. Date/Time Encounter Type Encounter Description Reason Pro vider Source Jan 12, 2024 09:05 AM Outpatient Encounter [facility] Encounter Template Text not used by [place] Plan of Treatment: Future Appointments (+ 6 months) and Future Tests (+/- 45 days) The Plan of Treatment section includes future care activities for the patient from all [place] [facility]. This section includes future appointments and future orders which are active, pending or scheduled. Future Appointments This section includes appointments that were scheduled to occur 6 months from the date of the Encounter, up to a maximum of 20 appointments. The data comes from all [place] treatment facilities. Appointment Date/Time Appointment Type Appointme nt Facility Name Jan 13, 2024 03:00 PM AMBULATORY - MEDICINE [place] [facility] [place] [facility] Jan 19, 2024 08:30 AM AMBULATORY - REHAB MEDICIN E [facility] [place] [facility] Feb 23, 2024 03:00 PM AMBULATORY - MEDICINE [place] [facility] [place] [facility] Mar 03, 2024 02:00 PM AMBULATORY - MEDICINE [place] [facility] [place] [facility] Mar 03, 2024 02:30 PM AMBULATORY - MEDICINE [place] [facility] [place] [facility] Mar 30, 2024 03:00 PM AMBULATORY - MEDICINE [place] [facility] [place] [facility] Mar 31, 2024 02:30 PM AMBULATORY - MEDICINE [place] [facility] [facility] Apr 07, 2024 08:00 AM AMBULATORY - MEDICINE [place] [facility] [facility] May 17, 2024 02:00 PM AMBULATORY - MEDICINE [place] [facility] [facility] Jul 08, 2024 09:00 AM AMBULATORY - MEDICINE [place] [facility] [place] [facility] Lab Results: +/- 30 days of the [...] Range Comment Jan 29, 2024 09:49 AM [place] [facility] [place] [facility] CREATININE (eGFR 2020) Specimen Type: SERUM No comment entered. Ordering Provider: LAURA APODACA Report Released Date/Time: Jan 27, 2024 07:33 AM Reporting [facility]: [facility] [address] [address] Performing Lab: [address] [address] CREATININE, Serum 1.86 mg/dL H 0.50-1.40 eGFR(CKD-EPI 2020) 36 mL/min L >60 Jan 29, 2024 09:49 AM [facility] PT & INR ([facility]) Specimen Type: PLASMA No comment entered. Ordering Provider: LAURA APODACA Report Released Date/Time: Jan 27, 2024 07:33 AM Reporting Lab: [address] [address] Performing Lab: [address] [address] INR 1.3 PROTIME 14.6 s H 10.0-13.1 Jan 29, 2024 09:49 AM [facility] LIVER FUNCTION Specimen Type: SERUM No comment entered. Ordering Provider: LAURA APODACA Report Released Date/Time: Jan 27, 2024 07:33 AM Reporting Lab: [address] [address] Performing Lab: [address] [address] PROTEIN,TOTAL 7.4 g/dL 6.0-8.3 ALBUMIN 3.2 g/dL L 3.5-5.0 ALKALINE PHOSPHATASE 66 U/L 40-150 AST 30 U/L 5-34 ALT 31 U/L BILIRUBIN, TOTAL 0.4 mg/dL 0.2-1.2 Jan 29, 2024 09:49 AM [facility] CBC Specimen Type: BLOOD No comment entered. Ordering Provider: LAURA APODACA Report Released Date/Time: Jan 27, 2024 07:33 AM Reporting Lab: [address] [address] Performing Lab: [facility] [place] [facility] [address] [facility] [address] WBC 6.95 10*3/uL 4.50-11.00 RBC 3.19 10*6/uL [...] place. Date/Time Current Smoking Status Comment [facility] Jan 06, 2024 09:30 AM VA-TOBACCO QUIT 15 YRS OR MORE [facility] Use History This section includes a history of the smoking, or tobacco-related health factors, that were collected on or before the date of the Encounter. The data comes from the [place] facility where the Encounter took place. Date/Time Smoking Status/Tobac co Use Comment Facility Jan 06, 2024 09:30 AM VA-TOBACCO QUIT 15 YRS OR MORE [place] [facility] [place] [facility] Dec 24, 2022 10:30 AM VA-TOBACCO FORMER USER [facility] [place] [facility] Dec 24, 2022 10:30 AM VA-TOBACCO QUIT 15 YRS OR MORE [facility] [place] [facility] Dec 24, 2021 10:00 AM VA-TOBACCO FORMER USER [facility] [place] [facility] Dec 24, 2021 10:00 AM VA-TOBACCO QUIT 5 TO < 15 YRS [facility] [place] [facility] Dec 14, 2020 08:30 AM VA-TOBACCO FORMER USER [facility] [place] [facility] Dec 14, 2020 08:30 AM VA-TOBACCO QUIT 5 TO < 15 YRS [facility] [place] [facility] Nov 15, 2019 11:00 AM VA-TOBACCO FORMER USER [facility] Nov 15, 2019 11:00 AM VA-TOBACCO QUIT 5 TO < 15 YRS [facility] Oct 20, 2017 08:19 AM VA-TOBACCO FORMER USER [facility] Oct 20, 2017 08:19 AM VA-TOBACCO QUIT 5 TO < 15 YRS [facility] Sep 04, 2017 11:09 AM QUIT TOBACCO USE > 7 YEARS AGO [facility] Oct 16, 2016 09:08 AM QUIT TOBACCO USE > 7 YEARS AGO [facility] Feb 20, 2015 10:58 AM QUIT TOBACCO USE > 7 YEARS AGO quit 2009-cigarettes and cigars for 45 years [facility] Advance Directives: All historical and [...] Mar 23, 2014 ADVANCE DIRECTIVE ROSALINDA SHELBY [facility] Encounter Notes: All associated encounter notes This section contains the clinical notes associated to the Encounter. Date/Time Encounter Note(s) Provider Source Jan 12, 2024 09:05 AM TELEPHONE ENCOUNTE R NOTE: LOCAL TITLE: TELEPHONE NOTE/SPECIALTY CLINIC STANDARD TITLE: TELEPHONE ENCOUNTER NOTE DATE OF NOTE: JAN 12, 2024@09:05 ENTRY DATE: JAN 12, 2024@09:06:03 AUTHOR: MEDINA NATHAN EXP COSIGNER: URGENCY: STATUS: COMPLETED [place] called to stating that his sensor fell off Friday night and hasnt had it on since then. Knows that he has an appt tmrw at 3pm. Wants to know what he should do? Doesnt have extras only of the new ones. Please call to advise. Primary phone confirmed. /jus/ MEDINA NATHAN [employer]ING HOST Signed: 01/12/2024 09:07 Receipt Acknowledged By: 01/12/2024 10:33 /es/ DOUGLAS ROSAS RN,BSN, [facility] DIABETES PLANT SCIENCE PROFESSOR, MEDINA ROSE [place] [facility]
--- OUTSIDE RECORDS SUMMARY | 2024-03-26 16:28 | XMS_ITS | Encounter Summary ---
Author Name [facility] [place] [facility] [place] Address [address] [place] [address] Care Team Providers Care Combat Control Manager Name Role Phone ABAD RUSSELL Primary Care [...] PART A Nov 22, 2006 PART A [id number] [phone] TONY LOGAN PATIENT MEDICARE (WNR) MEDICARE (M) PART B Nov 22, 2006 PART B [id number] TONY LOGAN PATIENT MEDICARE (WNR) MEDICARE (M) PART A Nov 22, 2006 PART A [id number] TONY LOGAN PATIENT MEDICARE (WNR) MEDICARE (M) PART B Nov 22, 2006 PART B [id number] [phone] TONY LOGAN PATIENT FOR LIFE TFL* Apr 20, 2014 [id number] SUKHJINDER LOGAN JR PATIENT Selected Encounter This section includes the information on record at [place] for the Encounter. Date/Time Encounter Type Encounter Description Reason Provider Source Feb 10, 2024 09:17 AM Outpatient Encounter PRIMARY CARE/MEDICINE [facility] Encounter Template Text not used by [place] Plan of Treatment: Future Appointments (+ 6 months) and Future Tests (+/- 45 days) The Plan of Treatment section includes future care activities for the patient from all [place] [facility]. This section includes future appointments and future orders which are active, pending or scheduled. Future Appointments This section includes appointments that were scheduled to occur 6 months from the date of the Encounter, up to a maximum of 20 appointments. The [facility] Appointment Date/Time Appointment Type Appointme nt Facility Name Feb 23, 2024 03:00 PM [place]ORY [place] [facility] [place] [facility] Mar 03, 2024 02:00 PM AM[place]ULATORY MEDICINE [place] [facility] [place] [facility] Mar 03, 2024 02:30 PM AMBULATORY MEDICINE [place] [facility] [place] [facility] Mar 30, 2024 03:00 PM AMBULATORY MEDICINE [place] [facility] [place] [facility] Mar 31, 2024 02:30 PM AMBULATORY - MEDICINE [place] [facility] [place] [facility] Apr 07, 2024 08:00 AM AMBULATORY - MEDICINE [place] [facility] [place] [facility] May 17, 2024 02:00 PM AMBULATORY [place]ICINE [place] [facility] [place] [facility] Jul 08, 2024 09:00 AM AMBULATORY - MEDICINE [place] [facility] [place] [facility] Active, Pending, and Scheduled Orders This [...] Order MICROALBUMIN CREATININE RATIO PANEL URINE (RANDOM) [facility] [place] [facility] Mar 26, 2024 12:00 AM Laboratory - Chemistry Order HEMOGLOBIN A1C PANEL BLOOD (LAV-BLOOD) [facility] Mar 26, 2024 12:00 AM Laboratory - Chemistry Order LIPID PANEL FASTING BLOOD (SST-SERUM) [facility] Mar 26, 2024 12:00 AM Laboratory - Chemistry Order BASIC METABOLIC PANEL (non-fasting) BLOOD (SST-SERUM) [facility] Lab Results: +/- 30 days of the encounter This section includes the Chemistry and Hematology Lab Results on record with [place] for the patient. Radiology Reports and Pathology Reports are provided separately, in subsequent sections. Lab Results This section contains the Chemistry/Hematology Results that were resulted 30 days before or 30 daysafter the date of the Encounter. Date/Time Source Result Type Result - Unit Interpretation Reference Range Comment Jan 29, 2024 09:49 AM [facility] CREATININE (eGFR 2020) Specimen Type: SERUM No comment entered. Ordering Provider: LAURA RUSSELL Report Released Date/Time: Jan 27, 2024 07:33 AM Reporting Lab: [address] [id number] Performing Lab: [address] [address] CREATININE, Serum 1.86 mg/dL H 0.50-1.40 eGFR(CKD-EPI 2020) 36 mL/min L >60 Jan 29, 2024 09:49 AM [facility] PT & INR (COUMADIN) Specimen Type: PLASMA No comment entered. Ordering Provider: LAURA RUSSELL Report Released Date/Time: Jan 27, 2024 07:33 AM Reporting Lab: [address] [address] Performing Lab: [address] [address] INR 1.3 PROTIME 14.6 s H 10.0-13.1 Jan 29, 2024 09:49 AM [facility] LIVER FUNCTION Specimen Type: SERUM No comment entered. Ordering Provider: LAURA RUSSELL Report Released Date/Time: Jan 27, 2024 07:33 AM Reporting Lab: [address] [place] [address] Performing Lab: [address] [address] PROTEIN,TOTAL 7.4 g/dL 6.0-8.3 ALBUMIN 3.2 g/dL L 3.5-5.0 ALKALINE PHOSPHATASE 66 U/L 40-150 AST 30 U/L 5-34 ALT 31 U/L BILIRUBIN, TOTAL 0.4 mg/dL 0.2-1.2 Jan 29, 2024 09:49 AM [facility] CBC Specimen Type: BLOOD No comment entered. Ordering Provider: LAURA RUSSELL Report Released Date/Time: Jan 27, 2024 07:33 AM Reporting Lab: [address] [address] Performing Lab: [address] [address] WBC 6.95 10*3/uL 4.50-11.00 RBC 3.19 10*6/uL [...] and tobacco- related health factors from the [place] facility where the Encounter took place. Current Smoking Status This section includes the most current smoking, or tobacco-related health factor, from the [place] facility where the Encounter took place. Date/Time Current Smoking Status Comment [facility] Jan 06, 2024 09:30 AM VA-TOBACCO FORMER USER [facility] Tobacco Use History This section includes a history of the smoking, or tobacco-related health factors, that were collected on or before the date of the Encounter. The data comes from the [place] facility where the Encounter took place. Date/Time Smoking Status/Tobac co Use Comment Facility Jan 06, 2024 09:30 AM VA-TOBACCO QUIT 15 YRS OR MORE [place] [facility] [place] [facility] Dec 24, 2022 10:30 AM VA-TOBACCO FORMER USER [facility] [place] [facility] Dec 24, 2022 10:30 AM VA-TOBACCO QUIT 15 YRS OR MORE [facility] [place] [facility] Dec 24, 2021 10:00 AM VA-TOBACCO FORMER USER [facility] [place] [facility] Dec 24, 2021 10:00 AM VA-TOBACCO QUIT 5 TO < 15 YRS [facility] [place] [facility] Dec 14, 2020 08:30 AM VA-TOBACCO FORMER USER [facility] [place] [facility] Dec 14, 2020 08:30 AM VA-TOBACCO QUIT 5 TO < 15 YRS [place] [facility] [place] [facility] Nov 15, 2019 11:00 AM VA-TOBACCO FORMER USER [place] [facility] [place] [facility] Nov 15, 2019 11:00 AM VA-TOBACCO QUIT 5 TO < 15 YRS [place] [facility] [place] [facility] Oct 20, 2017 08:19 AM VA-TOBACCO FORMER USER [place] [facility] [place] [facility] Oct 20, 2017 08:19 AM VA-TOBACCO QUIT 5 TO < 15 YRS [facility] [place] [facility] Sep 04, 2017 11:09 AM QUIT TOBACCO USE > 7 YEARS AGO [place] [facility] [place] [facility] Oct 16, 2016 09:08 AM QUIT TOBACCO USE > 7 YEARS AGO [place] [facility] [place] [facility] Feb 20, 2015 10:58 AM QUIT TOBACCO USE > 7 YEARS AGO quit 2009-cigarettes and cigars for 45 years [place] [facility] [place] [facility] Advance Directives: All historical and current Section Date Range: From patient's date of to the date document was created. This section includes ALL of a patient's completed or amended VA Advance and Rescinded Directives. The entries below indicate that a directive exists for the patient, but an actual copy is not included with this document. The data comes from all [place] facilities. Date Advance Directives Provider Source Mar 23, 2014 ADVANCE DIRECTIVE [facility] Encounter Notes: All associated encounter notes This section contains the clinical notes associated to the Encounter. Date/Time Encounter Note(s) Provider Source Feb 10, 2024 09:17 AM PRIMARY CARE MYRTLE E MESSAGING: [facility] TITLE: PRIMARY CARE SECURE MESSAGING STANDARD TITLE: PRIMARY CARE SECURE MESSAGING DATE OF NOTE: FEB 10, 2024@09:17 ENTRY DATE: FEB 10, 2024@09:17:05 AUTHOR: SHAE CHOU EXP COSIGNER: URGENCY: STATUS: COMPLETED ------Original Message ------- Sent: 02/09/2024 03:38 PM ET From: TONY LOGAN To: Debi RUSSELL_PRIMARY CARE_[facility] Subject: Medication:refill RX [id number] Eliquis getting very low second request some background about ten months back I had excess pills, due to a change from two pills a day to one. now i need the refills thanks ------Original Message ------- Sent: 02/10/2024 09:16 AM ET From: SHAE CHOU To: TONY LOGAN Subject: Medication:refill RX [id number] Eliquis Good morning Tony Logan, I will alert Dr. Russell to your request for renewal. Respectfully, Shae Chou RN /es/ Shae Chou MSN RN CNL Primary Care RN Signed: 02/10/2024 09:17 Receipt Acknowledged By: 02/10/2024 09:30 /es/ Abad Russell DNP, GLIDING PILOT INSTRUCTOR-BC, CNL Primary Care Nurse Practitioner SHAE CHOU [facility]
--- OUTSIDE RECORDS SUMMARY | 2024-03-26 16:28 | XMS_ITS | Encounter Summary ---
Author Name [facility] [place] [facility] [place] Address [address] [place] [address] Care Team Providers Care Staff Radiographer Name Role Phone AJAY APODACA Primary Care [...] PART A Nov 22, 2006 PART A [id number] TONY CASTELLON PATIENT MEDICARE (WNR) MEDICARE (M) PART B Nov 22, 2006 PART B [id number] TONY CASTELLON PATIENT MEDICARE (WNR) MEDICARE (M) PART B Nov 22, 2006 PART B [id number] TONY CASTELLON PATIENT MEDICARE (WNR) MEDICARE (M) PART A Nov 22, 2006 PART A [id number] TONY CASTELLON PATIENT FOR LIFE TFL* Apr 20, 2014 [id number] SUKHJINDER CASTELLON JR PATIENT Selected Encounter This section includes the information on record at [place] for the Encounter. Date/Time Encounter Type Encounter Description Reason Pro vider Source Dec 25, 2023 12:00 AM Outpatient Encounter EVENT (HISTORICAL) [facility] Encounter Template Text not used by [place] Plan of Treatment: Future Appointments (+ 6 months) and Future Tests (+/- 45 days) The Plan of Treatment section includes future care activities for the patient from all [place] [facility] This section includes future appointments and future orders which are active, pending or scheduled. Future Appointments This section includes appointments that were scheduled to occur 6 months from the date of the Encounter, up to a maximum of 20 appointments. The data comes from all [facility]. Appointment Date/Time Appointment Type Appointme nt Facility Name Dec 31, 2023 02:00 PM AMBULATORY - [place]ICINE [place] [facility] [place] [facility] Jan 06, 2024 09:30 AM AMBULATORY - MEDICINE [place] [facility] [place] [facility] Jan 13, 2024 03:00 PM AMBULATORY - MEDICINE [place] [facility] [place] [facility] Jan 19, 2024 08:30 AM AMBULATORY - REHAB MEDICIN E [place] [facility] [place] [facility] Feb 23, 2024 03:00 PM AMBULATORY - MEDICINE [place] [facility] [place] [facility] Mar 03, 2024 02:00 PM AMBULATORY - MEDICINE [place] [facility] [place] [facility] Mar 03, 2024 02:30 PM AMBULATORY - MEDICINE [place] [facility] [place] [facility] Mar 30, 2024 03:00 PM AMBULATORY - MEDICINE [place] [facility] [place] [facility] Mar 31, 2024 02:30 PM AMBULATORY - MEDICINE [place] [facility] [place] [facility] Apr 07, 2024 08:00 AM AMBULATORY - MEDICINE [place] [facility] [place] [facility] May 17, 2024 02:00 PM AMBULATORY - MEDICINE [place] [facility] [place] [facility] Active, Pending, and Scheduled Orders This section includes a listing of several types of active, pending, and scheduled orders, including clinic medications orders, diagnostic test orders, procedure orders and consult orders; where the start date of the order is 45 days before the date of the Encounter or 45 days after the date of theEncounter. The data comes from all [facility]. Test Date/Time Test Type Test Details Facility Name Nov 13, 2023 12:00 AM Laboratory - Chemi stry Order BASIC METABOLIC PANEL (non-fasting) BLOOD (SST-SERUM) [facility] Immunizations: All administered on the encounter date This section contains immunizations associated to the Encounter. Immunization Series Date Issued Reaction Comments INFLUENZA, UNSPECIFIED FORMULATION Dec 25, 2023 Social History: Smoking Status (Most current) and [...] took place. Date/Time Current Smoking Status Comment [facility] it Dec 24, 2022 10:30 AM VA-TOBACCO FORMER USER [facility] Tobacco Use History This section includes a history of the smoking, or tobacco-related health factors, that were collected on or before the date of the Encounter. The data comes from the [place] facility where the Encounter took place. Date/Time Smoking Status/Tobac co Use Comment Facility Dec 24, 2022 10:30 AM VA-TOBACCO QUIT 15 YRS OR MORE [place] [facility] [place] [facility] Dec 24, 2021 10:00 AM VA-TOBACCO FORMER USER [place] [facility] [place] [facility] Dec 24, 2021 10:00 AM VA-TOBACCO QUIT 5 TO < 15 YRS [place] [facility] [place] [facility] Dec 14, 2020 08:30 AM VA-TOBACCO FORMER USER [place] [facility] [place] [facility] Dec 14, 2020 08:30 AM VA-TOBACCO QUIT 5 TO < 15 YRS [place] [facility] [place] [facility] Nov 15, 2019 11:00 AM VA-TOBACCO FORMER USER [place] [facility] [place] [facility] Nov 15, 2019 11:00 AM VA-TOBACCO QUIT 5 TO < 15 YRS [place] [facility] [place] [facility] Oct 20, 2017 08:19 AM VA-TOBACCO FORMER USER [place] [facility] [place] [facility] Oct 20, 2017 08:19 AM VA-TOBACCO QUIT 5 TO < 15 YRS [place] [facility] [place] [facility] Sep 04, 2017 11:09 AM QUIT TOBACCO USE > 7 YEARS AGO [facility] Oct 16, 2016 09:08 AM QUIT TOBACCO USE > 7 YEARS AGO [facility] Feb 20, 2015 10:58 AM QUIT TOBACCO USE > 7 YEARS AGO quit 2009-cigarettes and cigars for 45 years [facility] Advance Directives: All historical and current [...] Mar 23, 2014 ADVANCE DIRECTIVE ROSALINDA SHELBY [facility]
--- OUTSIDE RECORDS SUMMARY | 2024-03-26 16:28 | XMS_ITS | Encounter Summary ---
Author Name [facility] [place] Organization [place] Address [address] [place] [id number] Care Team Providers Care Air Table Operator Name Role Phone ABAD RUSSELL Primary Care [...] PART A Nov 22, 2006 PART A [id number] TONY LOGAN PATIENT MEDICARE (WNR) MEDICARE (M) PART B Nov 22, 2006 PART B [id number] TONY LOGAN PATIENT MEDICARE (WNR) MEDICARE (M) PART A Nov 22, 2006 PART A [id number] TONY LOGAN PATIENT MEDICARE (WNR) MEDICARE (M) PART B Nov 22, 2006 PART B [id number] TONY LOGAN PATIENT FOR LIFE TFL* Apr 20, 2014 [id number] SUKHJINDER LOGAN JR PATIENT Selected Encounter This section includes the information on record at [place] for the Encounter. Date/Time Encounter Type Encounter Description Reason Provider Source Jan 19, 2024 08:30 AM OT EVAL LOW COMPLEX 30 MIN OCCUPATIONAL THERAPY ICD-10-CM Z74.09 Other reduced mobility BAISTUART Jose Encounter Template Text not used by [place] Assessments - Encounter Diagnoses This section includes the primary and secondary diagnoses documented for the Encounter. Date/Time Primary/Secondary Diagnosis Diagnosis Name Provider Source Jan 19, 2024 03:18 PM PRIMARY Other reduced mobility BAISTUART [place] [facility] [facility] Plan of Treatment: Future Appointments (+ 6 months) and Future Tests (+/- 45 days) The Plan of Treatment section includes future care activities for the patient from all [place] [facility] This section includes future appointments and future orders which are active, pending or scheduled. Future Appointments This section includes appointments that were scheduled to occur 6 months from the date of the Encounter, up to a maximum of 20 appointments. The data comes from all [place] treatment facilities. Appointment Date/Time Appointment Type Appointme nt Facility Name Feb 23, 2024 03:00 PM AMBULATORY - MEDICINE [place] C [facility] [facility] Mar 03, 2024 02:00 PM AMBULATORY - MEDICINE [place] C [facility] [place] [facility] Mar 03, 2024 02:30 PM AMBULATORY - MEDICINE [place] C [facility] [place] [facility] Mar 30, 2024 03:00 PM AMBULATORY - MEDICINE [place] C [facility] [place] [facility] Mar 31, 2024 02:30 PM AMBULATORY - MEDICINE [place] C [facility] [place] [facility] Apr 07, 2024 08:00 AM AMBULATORY - MEDICINE [place] C [facility] [place] [facility] May 17, 2024 02:00 PM AMBULATORY - MEDICINE [place] C [facility] [place] [facility] Jul 08, 2024 09:00 AM AMBULATORY - MEDICINE [place] C [facility] [place] [facility] Lab Results: +/- 30 days of [...] Range Comment Jan 29, 2024 09:49 AM [facility] CREATININE (eGFR 2020) Specimen Type: SERUM No comment entered. Ordering Provider: LAURA RUSSELL Report Released Date/Time: Jan 27, 2024 07:33 AM Reporting Lab: [facility] [address] [facility] [address] Performing Lab: [address] [address] CREATININE, Serum 1.86 mg/dL H 0.50-1.40 eGFR(CKD-EPI 2020) 36 mL/min L >60 Jan 29, 2024 09:49 AM [facility] LIVER FUNCTION Specimen Type: SERUM No comment entered. Ordering Provider: LAURA RUSSELL Report Released Date/Time: Jan 27, 2024 07:33 AM Reporting Lab: [address] [address] Performing Lab: [address] [address] PROTEIN,TOTAL 7.4 g/dL 6.0-8.3 ALBUMIN 3.2 g/dL L 3.5-5.0 ALKALINE PHOSPHATASE 66 U/L 40-150 AST 30 U/L 5-34 ALT 31 U/L BILIRUBIN, TOTAL 0.4 mg/dL 0.2-1.2 Jan 29, 2024 09:49 AM [facility] PT & INR (COUMADIN) Specimen Type: PLASMA No comment entered. Ordering Provider: LAURA RUSSELL Report Released Date/Time: Jan 27, 2024 07:33 AM Reporting Lab: [address] [address] Performing Lab: [address] [address] INR 1.3 PROTIME 14.6 s H 10.0-13.1 Jan 29, 2024 09:49 AM [facility] CBC Specimen Type: BLOOD No comment entered. Ordering Provider: LAURA RUSSELL Report Released Date/Time: Jan 27, 2024 07:33 AM Reporting Lab: [place] [facility] [facility] [address] [facility] [address] Performing Lab: [place] [facility] [facility] [address] [facility] [address] WBC 6.95 10*3/uL 4.50-11.00 RBC 3.19 10*6/uL [...] Smoking Status Comment [facility] Jan 06, 2024 09:30 AM VA-TOBACCO QUIT 15 YRS OR MORE [place] [facility] Tobacco Use History This section includes a history of the smoking, or tobacco-related health factors, that were collected on or before the date of the Encounter. The data comes from the [place] facility where the Encounter took place. Date/Time Smoking Status/Tobac co Use Comment Facility Jan 06, 2024 09:30 AM VA-TOBACCO QUIT 15 YRS OR MORE [place] [facility] [facility] Dec 24, 2022 10:30 AM VA-TOBACCO FORMER USER [place] [facility] [facility] Dec 24, 2022 10:30 AM VA-TOBACCO QUIT 15 YRS OR MORE [place] [facility] [facility] Dec 24, 2021 10:00 AM VA-TOBACCO FORMER USER [place] [facility] [facility] Dec 24, 2021 10:00 AM VA-TOBACCO QUIT 5 TO < 15 YRS [place] [facility] [facility] Dec 14, 2020 08:30 AM VA-TOBACCO FORMER USER [place] [facility] [place] [facility] Dec 14, 2020 08:30 AM VA-TOBACCO QUIT 5 TO < 15 YRS [facility] Nov 15, 2019 11:00 AM VA-TOBACCO [facility] Nov 15, 2019 11:00 AM VA-TOBACCO QUIT 5 TO < 15 YRS [facility] Oct 20, 2017 08:19 AM VA-TOBACCO [facility] Oct 20, 2017 08:19 AM VA-TOBACCO QUIT 5 TO < 15 YRS [facility] Sep 04, 2017 11:09 AM QUIT TOBACCO USE > 7 YEARS AGO [facility] Oct 16, 2016 09:08 AM QUIT TOBACCO USE > 7 YEARS AGO [facility] Feb 20, 2015 10:58 AM QUIT TOBACCO USE > 7 YEARS AGO quit 2009-cigarettes and cigars for 45 years [facility] Advance Directives: All historical and current Section Date Range: From patient's date of to the date document was created. This section includes ALL of a patient's completed or amended [place] Advance and Rescinded Directives. The entries below indicate that a directive exists for the patient, but an actual copy is not included with this document. The data comes from all [place] facilities. Date Advance Directives Provider Source Mar 23, 2014 ADVANCE DIRECTIVE ROSALINDA SHELBY [facility] Encounter Notes: All associated encounter notes This section contains the clinical notes associated to the Encounter. Date/Time Encounter Note(s) Provider Source Jan 19, 2024 09:28 AM OCCUPATIONAL MEDIC INE CONSULT: LOCAL TITLE: CONSULT REPORT/OCCUPATIONAL THERAPY STANDARD TITLE: OCCUPATIONAL MEDICINE CONSULT DATE OF NOTE: JAN 19, 2024@09:28 ENTRY DATE: JAN 19, 2024@09:29:32 AUTHOR: STUART BAI COSIGNER: ABAD RUSSELL URGENCY: STATUS: COMPLETED Initial Evaluation date: Dec Treatment Time: 45 minutes Diagnosis: Other Reduced Mobility(ICD-10-CM Z74.09) Provider: Abad Russell PCP OT Treatment Precautions: [place] Patient identified by full name and date of OT Treatment Precautions: [place] Patient identified by full name and date of Subjective: Goal to improve access to home with stairglide Pain: R hip pain, interferes with going up and down stairs, descending worst. Objective: Seating and Positioning: [place] lives alone in a second floor condo that he owns. He is having more difficulty climbing the stairs, h/o CAD, pvd, and is seeking evaluation for possible stair lift. Focus 1 chart review Home Safety Screen 2 Live alone: [address] [facility] [address], [facility] Own condo, 2nd floor: livingspace is on 1 level once he reaches the 2nd floor. Access: 2 bathroom, bedroom, kitchen, livingroom Access: Primary side walk, 2 Steps + threshold 16 step staircase/1 railing + landing at top of staircase Access: Side entry: 5-6 steps + landing 5-6 steps + landings outdoor stairway Bathroom: Tub/Shower with grab bar in/out of shower,removable shower head curtain, using Tub seat Cognition: Alert/Oriented Brief Interview for Mental Status [x] sock [x] December [x] blue [x] 2023 [x] bed [x] Friday Mobility: 30 Second Sit to Stand: Score 6 (avg: <10) below average score indicative of risk for falls Timed up and Go: Score 16 seconds (greater than 12 seconds) indicative of risk for falls Quality of Gait: [place] ambulated to clinic without assistive device walks with slow tentative pace. Assessment: Mr. Logan is a an 83 yo male recent hospitalization for pacemaker, skilled services now complete. lives alone in a second story condo. owns the condo, tried to live at [facility] in [facility] although was unable to sell his condo, and had to move back. 2nd floor is difficult for to manage, risk for falls. Stairglide will improve safety for accessing his living space. Home Screening completed and recommend upgrade to tub bench to reduce unilateral stance needed to enter/exit tub/shower with additional grab bar inside of shower. Toilet has grab bars in place. [place] having difficulty with supine to standing from bed, and bed rail will provide a visual cue to sit a few minutes before completing sit to stand transfer, and have contact bar for steadying his transition. Because lives alone he would benefit from Guardian Alert, due to fall risk. Recommendation: in agreement with plan, order will be requested for following equipment. 1 Stairglide, improve safety with external to interal access 2 Tub bench upgrade from tub seat improve tub transfer safety 3 Grab bar inside of shower: improve sit to stand for hygiene in shower 4 Bed Rail: provide visual cue/tactile support for sit to stand transfer bed 5 Guardian Alert/Cell due to 's fall risk, living alone Discharge once all goals met /jus/ STUART BAI OTR/L OCCUPATIONAL THERAPIST Signed: 01/19/2024 15:18 /jus/ Abad Russell DNP, SIX PACK PACKER-BC, CNL Primary Care Nurse Practitioner Cosigned: 01/19/2024 15:23 STUART BAI [facility]
--- OUTSIDE RECORDS SUMMARY | 2024-03-26 16:28 | XMS_ITS | Encounter Summary ---
Author Name [facility] [place] Organization [place] Address [address] [place] [address] Care Team Providers Care Wheel Buffer Name Role Phone AJAY RUSSELL Primary Care [...] PART A Nov 22, 2006 PART A [id number] TONY LOGAN PATIENT MEDICARE (WNR) MEDICARE (M) PART B Nov 22, 2006 PART B [id number] TONY LOGAN PATIENT MEDICARE (WNR) MEDICARE (M) PART B Nov 22, 2006 PART B [id number] TONY LOGAN PATIENT MEDICARE (WNR) MEDICARE (M) PART A Nov 22, 2006 PART A [id number] TONY LOGAN PATIENT FOR LIFE TFL* Apr 20, 2014 [id number] SUKHJINDER LOGAN JR PATIENT Selected Encounter This section includes the information on record at [place] for the Encounter. Date/Time Encounter Type Encounter Description Reason Provider Source Jan 26, 2024 02:58 PM Outpatient Encounter PRIMARY CARE/MEDICINE [facility] Encounter Template Text not used by [place] Plan of Treatment: Future Appointments (+ 6 months) and Future Tests (+/- 45 days) The Plan of Treatment section includes future care activities for the patient from all [place] [facility]. This section includes future appointments and future orders which are active, pending or scheduled. Future Appointments This section includes appointments that were scheduled to occur 6 months from the date of the Encounter, up to a maximum of 20 appointments. The data comes from all [place] treatment facilities. Appointment Date/Time Appointment Type Appointme nt Facility Name Feb 23, 2024 03:00 PM AMBULATORY - MEDICINE [place] [facility] [place] [facility] Mar 03, 2024 02:00 PM AMBULATORY MEDICINE [place] C [facility] [place] [facility] Mar 03, 2024 02:30 PM AMBULATORY MEDICINE [place] C [facility] [place] [facility] Mar 30, 2024 03:00 PM AMBULATORY MEDICINE [place] C [facility] [place] [facility] Mar 31, 2024 02:30 PM AMBULATORY - MEDICINE [place] C [facility] [place] [facility] Apr 07, 2024 08:00 AM AMBULATORY - MEDICINE [place] C [facility] [place] [facility] May 17, 2024 02:00 PM AMBULATORY - MEDICINE [place] C [facility] [place] [facility] Jul 08, 2024 09:00 AM AMBULATORY - MEDICINE [facility] NTRL [facility] [place] [facility] Lab Results: +/- 30 days of the encounter This section includes the Chemistry and Hematology Lab Results on record with [place] for the patient. Radiology Reports and Pathology Reports are provided separately, in subsequent sections. Lab Results This section contains the Chemistry/Hematology Results that were resulted 30 days before or 30 daysafter the date of the Encounter. Date/Time Source Result Type Result - Unit Interpretation Reference Range Comment Jan 29, 2024 09:49 AM [place] [facility] [place] [facility] CREATININE (eGFR 2020) Specimen Type: SERUM No comment entered. Ordering Provider: LAURA RUSSELL Report Released Date/Time: Jan 27, 2024 07:33 AM Reporting Lab: [place] [facility] [place] [address] [address] Performing Lab: [facility] [address] [facility] [address] CREATININE, Serum 1.86 mg/dL H 0.50-1.40 eGFR(CKD-EPI 2020) 36 mL/min L >60 Jan 29, 2024 09:49 AM [facility] LIVER FUNCTION Specimen Type: SERUM No comment entered. Ordering Provider: LAURA RUSSELL Report Released Date/Time: Jan 27, 2024 07:33 AM Reporting Lab: [facility] [address] [facility] [address] Performing Lab: [address] [address] PROTEIN,TOTAL 7.4 g/dL 6.0-8.3 ALBUMIN 3.2 g/dL L 3.5-5.0 ALKALINE PHOSPHATASE 66 U/L 40-150 AST 30 U/L 5-34 ALT 31 U/L BILIRUBIN, TOTAL 0.4 mg/dL 0.2-1.2 Jan 29, 2024 09:49 AM [facility] CBC Specimen Type: BLOOD No comment entered. Ordering Provider: LAURA RUSSELL Report Released Date/Time: Jan 27, 2024 07:33 AM Reporting Lab: [address] [address] Performing Lab: [address] [address] WBC 6.95 10*3/uL 4.50-11.00 RBC 3.19 10*6/uL L 4.23-5.66 HGB 9.9 g/dL L 12.8-17 HCT 31.2 L 39.2-50.4 MCV 97.8 fL 82-99 MCHC 31.7 g/dL 30.8-35.1 PLT 178 10*3/uL 140-360 RDW-CV 14.0 12.0-16.0 MCH 31.0 pg 26.2-32.6 Jan 29, 2024 09:49 AM [facility] PT & INR (COUMADIN) Specimen Type: PLASMA No comment entered. Ordering Provider: LAURA RUSSELL Report Released Date/Time: Jan 27, 2024 07:33 AM Reporting Lab: [place] [facility] [facility] [address] [facility] [address] Performing Lab: [place] [facility] [facility] [address] [facility] [address] INR 1.3 PROTIME 14.6 s H 10.0-13.1 Social History: Smoking Status (Most current) and Tobacco Use (All prior to encounter date) This section includes the most current, and the historical, smoking and tobacco- related health factors from the [place] facility where the Encounter took place. Current Smoking Status This section includes the most current smoking, or tobacco-related health factor, from the [place] facility where the Encounter took place. Date/Time Current Smoking Status Comment Facil it Jan 06, 2024 09:30 AM VA-TOBACCO QUIT 15 YRS OR MORE [facility] Tobacco Use History This section includes a history of the smoking, or tobacco-related health factors, that were collected on or before the date of the Encounter. The data comes from the [place] facility where the Encounter took place. Date/Time Smoking Status/Tobac co Use Comment Facility Jan 06, 2024 09:30 AM VA-TOBACCO QUIT 15 YRS OR MORE [place] [facility] [facility] Dec 24, 2022 10:30 AM VA-TOBACCO FORMER USER [facility] CNTRL [facility] [facility] Dec 24, 2022 10:30 AM VA-TOBACCO QUIT 15 YRS OR MORE [facility] [place] [facility] Dec 24, 2021 10:00 AM VA-TOBACCO FORMER USER [facility] [facility] Dec 24, 2021 10:00 AM VA-TOBACCO QUIT 5 TO < 15 YRS [place] [facility] [place] [facility] Dec 14, 2020 08:30 AM VA-TOBACCO FORMER USER [facility] [facility] Dec 14, 2020 08:30 AM VA-TOBACCO QUIT 5 TO < 15 YRS [facility] [facility] Nov 15, 2019 11:00 AM VA-TOBACCO FORMER USER [facility] [facility] Nov 15, 2019 11:00 AM VA-TOBACCO QUIT 5 TO < 15 YRS [facility] Oct 20, 2017 08:19 AM VA-TOBACCO FORMER USER [facility] Oct 20, 2017 08:19 AM VA-TOBACCO QUIT 5 TO < 15 YRS [facility] Sep 04, 2017 11:09 AM QUIT TOBACCO USE > 7 YEARS AGO [facility] Oct 16, 2016 09:08 AM QUIT TOBACCO USE > 7 YEARS AGO [facility] Feb 20, 2015 10:58 AM QUIT TOBACCO USE > 7 YEARS AGO quit 2009-cigarettes and cigars for 45 years [facility] Advance Directives: All historical and current Section Date Range: From patient's date of to the date document was created. This section includes ALL of a patient's completed or amended [place] Advance and Rescinded Directives. The entries below indicate that a directive exists for the patient, but an actual copy is not included with this document. The data comes from all [place] facilities. Date Advance Directives Provider Source Mar 23, 2014 ADVANCE DIRECTIVE ROSALINDA SHELBY [facility] Encounter Notes: All associated encounter notes This section contains the clinical notes associated to the Encounter. Date/Time Encounter Note(s) Provider Source Jan 27, 2024 07:30 AM ADDENDUM: LOCAL TITLE: Addendum STANDARD TITLE: ADDENDUM DATE OF NOTE: JAN 27, 2024@07:30:37 ENTRY DATE: JAN 27, 2024@07:30:37 AUTHOR: AJAY RUSSELL EXP COSIGNER: URGENCY: STATUS: COMPLETED this has not been filled in a year - he will need to come in for labs and i will place pharmacy consult. /jus/ Ajay Russell DNP, WORK ADJUSTMENT INSTRUCTOR-BC, CNL Primary Care Nurse Practitioner Signed: 01/27/2024 07:31 Receipt Acknowledged By: 01/28/2024 13:12 /jus/ Jonah LUX RN CNL Primary Care RN ========= --- Original Document --- 01/26/24 PRIMARY CARE SECURE MESSAGING: ------Original Message -------- Sent: 01/26/2024 02:37 PM ET From: TONY LOGAN To: Debi RUSSELL_PRIMARY CARE_[facility] Subject: Medication:renew meds please renew RX #[id number], Ashanorma thank you ------Original Message -------- Sent: 01/26/2024 02:57 PM ET From: JONAH CHOU To: TONY LOGAN Subject: Medication:renew meds Good Afternoon Desmond, I will alert Dr. Russell to your request for renewal. Respectfully, Jonah Chou RN /es/ Jonah Chou MSN RN CNL Primary Care RN Signed: 01/26/2024 14:58 Receipt Acknowledged By: 01/27/2024 07:28 /jus/ Ajay Russell [facility], CNL Primary Care Nurse Practitioner 01/28/2024 ADDENDUM STATUS: COMPLETED Vet advised via /jus/ Jonah Chou MSN RN CNL Primary Care RN Signed: 01/28/2024 13:12 AJAY RUSSELL [place] CNT [facility] Jan 26, 2024 02:58 PM PRIMARY CARE SECUR E MESSAGING: LOCAL TITLE: PRIMARY CARE SECURE MESSAGING STANDARD TITLE: PRIMARY CARE SECURE MESSAGING DATE OF NOTE: JAN 26, 2024@14:58 ENTRY DATE: JAN 26, 2024@14:58:02 AUTHOR: JONAH CHOU EXP COSIGNER: URGENCY: STATUS: COMPLETED PRIMARY CARE SECURE MESSAGING Has ADDENDA ------Original Message -------- Sent: 01/26/2024 02:37 PM ET From: TONY LOGAN To: Debi RUSSELL_PRIMARY CARE_[facility] Subject: Medication:renew meds please renew RX #[id number], Chela thank you ------Original Message -------- Sent: 01/26/2024 02:57 PM ET From: JONAH CHOU To: TONY LOGAN Subject: Medication:renew meds Good Afternoon Mr. Logan, I will alert Dr. Russell to your request for renewal. Respectfully, Jonah Chou RN /jus/ Jonah Chou MSN RN CNL Primary Care RN Signed: 01/26/2024 14:58 Receipt Acknowledged By: 01/27/2024 07:28 /jus/ DARCI Monroe DNP-LOLLY, CAESAR Primary Care Nurse Practitioner 01/27/2024 ADDENDUM STATUS: COMPLETED this has not been filled in a year - he will need to come in for labs and i will place pharmacy consult. /jus/ DARCI Monroe DNP-LOLLY, CAESAR Primary Care Nurse Practitioner Signed: 01/27/2024 07:31 Receipt Acknowledged By: 01/28/2024 13:12 /jus/ Jonah LUX RN CNL Primary Care RN 01/28/2024 ADDENDUM STATUS: COMPLETED Vet advised via /jus/ Jonah Chou MSN RN CNL Primary Care RN Signed: 01/28/2024 13:12 JONAH CHOU [facility]
--- OUTSIDE RECORDS SUMMARY | 2024-03-26 16:28 | XMS_ITS | Encounter Summary ---
Author Name [facility] Address [address] [place] [address] Care Team Providers Care Risk Consultant Name Role Phone AJAY APODACA Primary Care [...] PART A Nov 22, 2006 PART A [id number] TONY CASTELLON PATIENT MEDICARE (WNR) MEDICARE (M) PART B Nov 22, 2006 PART B [id number] TONY CASTELLON PATIENT MEDICARE (WNR) MEDICARE (M) PART A Nov 22, 2006 PART A [id number] TONY CASTELLON PATIENT MEDICARE (WNR) MEDICARE (M) PART B Nov 22, 2006 PART B [id number] [phone] TONY CASTELLON PATIENT FOR LIFE TFL* Apr 20, 2014 [id number] SUKHJINDER CASTELLON JR PATIENT Selected Encounter This section includes the information on record at [place] for the Encounter. Date/Time Encounter Type Encounter Description Reason Pro vider Source Feb 24, 2024 12:00 PM Outpatient Encounter ENDOCRINOLOGY IHE Encounter Template Text not used by [place] Plan of Treatment: Future Appointments (+ 6 months) and Future Tests (+/- 45 days) The Plan of Treatment section includes future care activities for the patient from [facility] [place] [facility] This section includes future appointments and future orders which are active, pending or scheduled. Future Appointments This section includes appointments that were scheduled to occur 6 months from the date of the Encounter, up to a maximum of 20 appointments. The data comes from all [facility]. Appointment Date/Time Appointment Type Appointme nt Facility Name Mar 03, 2024 02:00 PM AMBULATORY - MEDICINE [place] [facility] Mar 03, 2024 02:30 PM AMBULATORY MEDICINE [place] [facility] Mar 30, 2024 03:00 PM AMBULATORY - MEDICINE [place] [facility] Mar 31, 2024 02:30 PM AMBULATORY MEDICINE [place] [facility] Apr 07, 2024 08:00 AM AMBULATORY - MEDICINE [place] [facility] [place] [facility] May 17, 2024 02:00 PM AMBULATORY - MEDICINE [place] [facility] [place] [facility] Jul 08, 2024 09:00 AM AMBULATORY MEDICINE [place] [facility] [facility] Active, Pending, and Scheduled Orders This section includes a listing of several types of active, pending, and scheduled orders, including clinic medications orders, diagnostic test orders, procedure orders and consult orders; where the start date of the order is 45 days before the date of the Encounter or 45 days after the date of theEncounter. The data comes from all [facility]. Test Date/Time Test Type Test Details Facility Name Mar 26, 2024 12:00 AM Laboratory - Chemistry Order HEMOGLOBIN A1C PANEL BLOOD (LAV-BLOOD) [facility] Mar 26, 2024 12:00 AM Laboratory - Chemistry Order MICROALBUMIN CREATININE RATIO PANEL URINE (RANDOM) [facility] Mar 26, 2024 12:00 AM Laboratory - Chemistry Order LIPID PANEL FASTING BLOOD (SST-SERUM) [facility] Mar 26, 2024 12:00 AM Laboratory - Chemistry Order BASIC METABOLIC PANEL (non-fasting) BLOOD (SST-SERUM) [facility] Lab Results: +/- 30 days of the encounter This section includes the Chemistry and Hematology Lab Results on record with [place] for the patient. Radiology Reports and Pathology Reports are provided separately, in subsequent sections. Lab Results This section contains the Chemistry/Hematology Results that were resulted 30 days before or 30 daysafter the date of the Encounter. Date/Time Source Result Type Result - Unit Interpretation Reference Range Comment Jan 29, 2024 09:49 AM [facility] CREATININE (eGFR 2020) Specimen Type: SERUM No comment entered. Ordering Provider: LAURA APODACA Report Released Date/Time: Jan 27, 2024 07:33 AM Reporting Lab: [address] [address] Performing Lab: [address] [address] CREATININE, Serum 1.86 mg/dL H 0.50-1.40 eGFR(CKD-EPI 2020) 36 mL/min L >60 Jan 29, 2024 09:49 AM [facility] PT & INR (COUMADIN) Specimen Type: PLASMA No comment entered. Ordering Provider: LAURA APODACA Report Released Date/Time: Jan 27, 2024 07:33 AM Reporting Lab: [address] [address] Performing Lab: [address] [address] INR 1.3 PROTIME 14.6 s H 10.0-13.1 Jan 29, 2024 09:49 AM [facility] LIVER FUNCTION Specimen Type: SERUM No comment entered. Ordering Provider: LAURA APODACA Report Released Date/Time: Jan 27, 2024 07:33 AM Reporting Lab: [address] [address] Performing Lab: [address] [address] PROTEIN,TOTAL 7.4 g/dL 6.0-8.3 ALBUMIN 3.2 g/dL L 3.5-5.0 ALKALINE PHOSPHATASE 66 U/L 40-150 AST 30 U/L 5-34 ALT 31 U/L BILIRUBIN, TOTAL 0.4 mg/dL 0.2-1.2 Jan 29, 2024 09:49 AM [facility] CBC Specimen Type: BLOOD No comment entered. Ordering Provider: LAURA APODACA Report Released Date/Time: Jan 27, 2024 07:33 AM Reporting Lab: [facility] [address] [facility] [address] Performing Lab: [address] [address] WBC 6.95 10*3/uL 4.50-11.00 RBC 3.19 10*6/uL [...] and tobacco- related health factors from the [place] facility where the Encounter took place. Current Smoking Status This section includes the most current smoking, or tobacco-related health factor, from the [place] facility where the Encounter took place. Date/Time Current Smoking Status Comment [facility] Jan 06, 2024 09:30 AM [place]-TOBACCO QUIT 15 YRS OR MORE [facility] Tobacco Use History This section includes a history of the smoking, or tobacco-related health factors, that were collected on or before the date of the Encounter. The data comes from the [place] facility where the Encounter took place. Date/Time Smoking Status/Tobac co Use Comment Facility Jan 06, 2024 09:30 AM [place]-TOBACCO QUIT 15 YRS OR MORE [facility] Dec 24, 2022 10:30 AM VA-TOBACCO FORMER USER [facility] Dec 24, 2022 10:30 AM VA-TOBACCO QUIT 15 YRS OR MORE [facility] Dec 24, 2021 10:00 AM VA-TOBACCO FORMER USER [facility] Dec 24, 2021 10:00 AM VA-TOBACCO QUIT 5 TO < 15 YRS [facility] Dec 14, 2020 08:30 AM VA-TOBACCO FORMER USER [facility] Dec 14, 2020 08:30 AM VA-TOBACCO QUIT 5 TO < 15 YRS [facility] [place] Nov 15, 2019 11:00 AM VA-TOBACCO FORMER USER [facility] Nov 15, 2019 11:00 AM VA-TOBACCO QUIT 5 TO < 15 YRS [facility] [place] [facility] Oct 20, 2017 08:19 AM VA-TOBACCO FORMER USER [place] [facility] [place] Oct 20, 2017 08:19 AM VA-TOBACCO QUIT 5 TO < 15 YRS [facility] [place] Sep 04, 2017 11:09 AM QUIT TOBACCO USE > 7 YEARS AGO [facility] Oct 16, 2016 09:08 AM QUIT TOBACCO USE > 7 YEARS AGO [facility] [place] Feb 20, 2015 10:58 AM QUIT TOBACCO USE > 7 YEARS AGO quit 2009-cigarettes and cigars for 45 years [facility] Advance Directives: All historical and current Section Date Range: From patient's date of to the date document was created. This section includes ALL of a patient's completed or amended [place] Advance and Rescinded Directives. The entries below indicate that a directive exists for the patient, but an actual copy is not included with this document. The data comes from all [place] facilities. Date Advance Directives Provider Source Mar 23, 2014 ADVANCE DIRECTIVE ROSALINDA SHELBY [place] [facility] Encounter Notes: All associated encounter notes This section contains the clinical notes associated to the Encounter. Date/Time Encounter Note(s) Provider Source Feb 24, 2024 12:23 PM TELEPHONE ENCOUNTER NOTE: LOCAL TITLE: TELEPHONE NOTE/SPECIALTY CLINIC STANDARD TITLE: TELEPHONE ENCOUNTER NOTE DATE OF NOTE: FEB 24, 2024@12:23 ENTRY DATE: FEB 24, 2024@12:23:45 AUTHOR: TOM RIZZO SA EXP COSIGNER: URGENCY: STATUS: COMPLETED called back and scheduled appointment for 03/31/2024 at 2:30pm. /jus/ TOM RIZZO Signed: 02/24/2024 12:24 Receipt Acknowledged By: 02/24/2024 14:53 /jus/ MIAH BUTTS MD STAFF PHYSICIAN 02/25/2024 07:24 /jus/ [facility] Feb 24, 2024 12:10 PM LETTERS: LOCAL TITLE: PATIENT LETTER (B) STANDARD TITLE: LETTERS DATE OF NOTE: FEB 24, 2024@12:10 ENTRY DATE: FEB 24, 2024@12:17:43 AUTHOR: TOM RIZZO SA EXP COSIGNER: URGENCY: STATUS: COMPLETED FEB 24, 2024 TONY CASTELLON [address] [facility] [address] [place] [id number] Dear TONY CASTELLON JR Thank you for choosing the [facility] as your primary choice for [...] you are due for an appointment in ENDOCRINE. If you would like to be seen, please contact [place] Call Center at ext. [phone] to schedule an appointment. Thank you for your service to our nation, and we look forward to hearing from you soon. Sincerely, [facility] [address] [facility] [address] [place] [address] [place] [address] [phone] [facility] [address] [facility] [address] [place] [address] [place] [address] ext. [phone] [facility] [address] [address] [place] [address] ext. [phone] TOM RIZZO [facility] Feb 24, 2024 12:00 PM ADMINISTRATIVE NOTE: LOCAL TITLE: ADMINISTRATIVE RECALL NOTE STANDARD TITLE: ADMINISTRATIVE NOTE DATE OF NOTE: FEB 24, 2024@12:00 ENTRY DATE: FEB 24, 2024@12:00:57 AUTHOR: TOM RIZZO SA EXP COSIGNER: URGENCY: STATUS: COMPLETED RTC orders: Unable to contact patient: Attempts to contact: 1st attempt: Left voicemail 2nd attempt: Letter mailed 3rd attempt: 4th attempt: Called, LM on to schedule appointment. Mailed letter. When the calls back please schedule for NHM/ENDOCRINE, with a PID of [id number]. Provided specialties clinic call back phone number [phone] Ext: [phone] /jus/ TOM RIZZO Signed: 02/24/2024 12:09 TOM RIZZO [facility]
--- OUTSIDE RECORDS SUMMARY | 2024-03-26 16:28 | XMS_ITS | Encounter Summary ---
Author Name [facility] [place] Organization [facility] [place] Address [address] [place] [id number] Care Team Providers Care Fire Protection Engineer Name Role Phone ABAD RUSSELL Primary Care [...] PART A Nov 22, 2006 PART A [id number] TONY CASTELLON PATIENT MEDICARE (WNR) MEDICARE (M) PART B Nov 22, 2006 PART B [id number] TONY CASTELLON PATIENT MEDICARE (WNR) MEDICARE (M) PART B Nov 22, 2006 PART B [id number] [phone] [id number] TONY CASTELLON PATIENT MEDICARE (WNR) MEDICARE (M) PART A Nov 22, 2006 PART A [id number] TONY CASTELLON PATIENT FOR LIFE TFL* Apr 20, 2014 [id number] SUKHJINDER CASTELLON JR PATIENT Selected Encounter This section includes the information on record at [place] for the Encounter. Date/Time Encounter Type Encounter Description Reason Provider Source Jan 06, 2024 09:30 AM OFFICE O/P EST LOW 20 MIN PRIMARY CARE/MEDICINE ICD-10-CM Z95.0 Presence of cardiac pacemaker [place] RUSSELL AM Encounter Template Text not used by [place] Assessments - Encounter Diagnoses This section includes the primary and secondary diagnoses documented for the Encounter. Date/Time Primary/Secondary Diagnosis Diagnosis Name Provider Source Jan 06, 2024 03:48 PM PRIMARY Presence of cardiac pacemaker RUSSELL,W[facility] [place] [facility] Jan 06, 2024 03:48 PM SECONDARY Chronic kidney disease, unspecified RUSSELL,WILL CEASAR [facility] [place] [facility] Jan 06, 2024 03:48 PM SECONDARY Chronic obstructive pulmonary disease, unspecified RUSSELL,WILL CEASAR J [facility] [place] [facility] Jan 06, 2024 03:48 PM SECONDARY Essential (primary) hypertension RUSSELL,WILL CEASAR J [facility] [place] [facility] Jan 06, 2024 03:48 PM SECONDARY Mixed hyperlipidemia RUSSELL,WILL CEASAR J [facility] [place] [facility] Jan 06, 2024 03:48 PM SECONDARY Paroxysmal atrial fibrillation RUSSELL,WILL CEASAR J [facility] [place] [facility] Jan 06, 2024 03:48 PM SECONDARY Peripheral vascular disease, unspecified RUSSELL,WILL CEASAR J [facility] [place] [facility] Jan 06, 2024 03:48 PM SECONDARY Type 2 diabetes mellitus w diabetic chronic kidney disease RUSSELL,WILL CEASAR J [facility] [place] [facility] Jan 06, 2024 03:48 PM SECONDARY Type 2 diabetes mellitus with diabetic polyneuropathy RUSSELL,WILL CEASAR J [facility] [place] [facility] Jan 06, 2024 03:48 PM SECONDARY Type 2 diabetes mellitus with unspecified complications RUSSELL,WILL CEASAR J [facility] [place] [facility] Jan 06, 2024 03:48 PM SECONDARY Unspecified atrial fibrillation RUSSELL,[facility] Plan of Treatment: Future Appointments (+ 6 months) and Future Tests (+/- 45 days) The Plan of Treatment section includes future care activities for the patient from all [place] treatment[facility]ount includes [facility] This section includes future appointments and future orders which are active, pending or scheduled. Future Appointments This section includes appointments that were scheduled to occur 6 months from the date of the Encounter, up to a maximum of 20 appointments. The data comes from all [place] treatment facilities. Appointment Date/Time Appointment Type Appointme nt Facility Name Jan 13, 2024 03:00 PM [place] [facility] [place] [facility] Jan 19, 2024 08:30 AM [facility]ULAT[facility] [place]IN [place] [facility] [place] [facility] Feb 23, 2024 03:00 PM [place] [facility] [place] [facility] Mar 03, 2024 02:00 PM [place] [facility] [place] [facility] Mar 03, 2024 02:30 PM [place] [facility] [place] [facility] Mar 30, 2024 03:00 PM [place] [facility] [place] [facility] Mar 31, 2024 02:30 PM [place] [facility] [place] [facility] Apr 07, 2024 08:00 AM [place] [facility] [place] [facility] May 17, 2024 02:00 PM [place] [facility] [place] [facility] Lab Results: +/- 30 days of the encounter This section includes the Chemistry and Hematology Lab Results on record with [place] for the patient. Radiology Reports and Pathology Reports are provided separately, in subsequent sections. Lab Results This section contains the Chemistry/Hematology Results that were resulted 30 days before or 30 daysafter the date of the Encounter. Date/Time Source Result Type Result - Unit Interpretation Reference Range Comment Jan 29, 2024 09:49 AM [place] [facility] [place] [facility] PT & INR (COUMADIN) Specimen Type: PLASMA No comment entered. Ordering Provider: LAURA RUSSELL Report Released Date/Time: Jan 27, 2024 07:33 AM Reporting Lab: [place] [facility] [place] [address] [address] Performing Lab: [facility] [address] INR 1.3 PROTIME 14.6 s H 10.0-13.1 Jan 29, 2024 09:49 AM [facility] CREATININE (eGFR 2020) Specimen Type: SERUM No comment entered. Ordering Provider: LAURA RUSSELL Report Released Date/Time: Jan 27, 2024 07:33 AM Reporting Lab: [address] [address] Performing Lab: [address] [address] CREATININE, Serum 1.86 mg/dL H 0.50-1.40 eGFR(CKD-EPI 2020) 36 mL/min L >60 Jan 29, 2024 09:49 AM [facility] LIVER FUNCTION Specimen Type: SERUM No comment entered. Ordering Provider: LAURA RUSSELL Report Released Date/Time: Jan 27, 2024 07:33 AM Reporting Lab: [address] [address] Performing Lab: [address] [address] PROTEIN,TOTAL 7.4 g/dL 6.0-8.3 ALBUMIN 3.2 g/dL L 3.5-5.0 ALKALINE PHOSPHATASE 66 U/L 40-150 AST 30 U/L 5-34 ALT 31 U/L BILIRUBIN, TOTAL 0.4 mg/dL 0.2-1.2 Jan 29, 2024 09:49 AM [facility] CBC Specimen Type: BLOOD No comment entered. Ordering Provider: LAURA RUSSELL Report Released Date/Time: Jan 27, 2024 07:33 AM Reporting Lab: [address] [address] Performing Lab: [address] [address] WBC 6.95 10*3/uL 4.50-11.00 RBC 3.19 10*6/uL L 4.23-5.66 HGB 9.9 g/dL L 12.8-17 HCT 31.2 L 39.2-50.4 MCV 97.8 fL 82-99 MCHC 31.7 g/dL 30.8-35.1 PLT 178 10*3/uL 140-360 RDW-CV 14.0 12.0-16.0 MCH 31.0 pg 26.2-32.6 Vital Signs: All taken on the encounter date This section contains inpatient and outpatient Vital Signs collected on the date of the Encounter. Date/Time Temperature Pulse Blood Pressure Respiratory Rate SP02 Pain Height Weight Body Mass Index Source Jan 06, 2024 03:45 PM 132/74 [facility] [place] [facility] Jan 06, 2024 09:24 AM 97.6 78 144/65 16 98 0 180 29 [place] [facility] [place] [facility] Social History: Smoking Status (Most current) and Tobacco Use (All prior to encounter date) This section includes the most current, and the historical, smoking and tobacco- related health factors from the [place] facility where the Encounter took place. Current Smoking Status This section includes the most current smoking, or tobacco-related health factor, from the [place] facility where the Encounter took place. Date/Time Current Smoking Status Comment [facility] Jan 06, 2024 09:30 AM VA-TOBACCO FORMER USER [place] [facility] [place] [facility] Tobacco Use History This section includes a history of the smoking, or tobacco-related health factors, that were collected on or before the date of the Encounter. The data comes from the [place] facility where the Encounter took place. Date/Time Smoking Status/Tobac co Use Comment Facility Jan 06, 2024 09:30 AM VA-TOBACCO QUIT 15 YRS OR MORE [facility] [place] [facility] Dec 24, 2022 10:30 AM VA-TOBACCO FORMER USER [facility] [place] [facility] Dec 24, 2022 10:30 AM VA-TOBACCO QUIT 15 YRS OR MORE [facility] [place] [facility] Dec 24, 2021 10:00 AM VA-TOBACCO FORMER USER [facility] [place] [facility] Dec 24, 2021 10:00 AM VA-TOBACCO QUIT 5 TO < 15 YRS [facility] [place] [facility] Dec 14, 2020 08:30 AM VA-TOBACCO FORMER USER [facility] [place] [facility] Dec 14, 2020 08:30 AM VA-TOBACCO QUIT 5 TO < 15 YRS [facility] Nov 15, 2019 11:00 AM VA-TOBACCO FORMER USER [facility] Nov 15, 2019 11:00 AM VA-TOBACCO QUIT 5 TO < 15 YRS [facility] Oct 20, 2017 08:19 AM VA-TOBACCO [facility] Oct 20, 2017 08:19 AM VA-TOBACCO QUIT 5 TO < 15 YRS [facility] Sep 04, 2017 11:09 AM QUIT TOBACCO USE > 7 YEARS AGO [facility] Oct 16, 2016 09:08 AM QUIT TOBACCO USE > 7 YEARS AGO [facility] Feb 20, 2015 10:58 AM QUIT TOBACCO USE > 7 YEARS AGO quit 2009-cigarettes and cigars for 45 years [facility] Advance Directives: All historical and current Section Date Range: From patient's date of to the date document was created. This section includes ALL of a patient's completed or amended [place] Advance and Rescinded Directives. The entries below indicate that a directive exists for the patient, but an actual copy is not included with this document. The data comes from all [place] facilities. Date Advance Directives Provider Source Mar 23, 2014 ADVANCE DIRECTIVE ROSALINDA SHELBY [facility] Encounter Notes: All associated encounter notes This section contains the clinical notes associated to the Encounter. Date/Time Encounter Note(s) Provider Source Jan 06, 2024 03:28 PM PRIMARY CARE NURSE PRACTITIONER OUTPATIENT NOTE: LOCAL TITLE: NURSE PRACTITIONER OUTPATIENT NOTE STANDARD TITLE: PRIMARY CARE NURSE PRACTITIONER OUTPATIENT NOTE DATE OF NOTE: JAN 06, 2024@15:28 ENTRY DATE: JAN 06, 2024@15:28:13 AUTHOR: ABAD RUSSELL COSIGNER: URGENCY: STATUS: COMPLETED Chief complaint: Patient is a 83 year old . HPI: Pleasant male here to follow up, first visit with sd. In November he had an aortic valve replacement. He follows with NON va cardiology, [facility] cardiac rehab. Feeling well. He follows in [place] with Dr Powell. Lives alone, son is out of state but very supportive, was here with him while he was in the hospital. Allergies: Patient has answered NKA The following VA and Non-VA meds were reconciled with patient. The patient was educated on the use of the medications including indication and side effects. Active and Recently Outpatient Medications (excluding Supplies): Active Outpatient Medications Status 1) CARBOXYMETHYLCELLULOSE NA 0.5% OPH SOLN INSTILL 1 ACTIVE DROP INTO EACH EYE TWICE DAILY 2) GLUCOSE 4GM CHEW TAB CHEW THREE TO FOUR TABLETS BY ACTIVE MOUTH NEEDED FOR LOW BLOOD SUGAR BELOW 70 3) INSULIN,ASPART(EQV-NOVLG)100UN/ ML FLXPEN INJECT ACTIVE DIRECTED SUBCUTANEOUSLY THREE TIMES A DAY 8 UNITS FOR EGGS, 12 UNITS FOR CEREAL AM, 5 UNITS NOON, 9 UNITS DINNER 4) INSULIN,GLARGINE-YFGN 100UNIT/ML PEN 3ML INJECT 10 HOLD UNITS SUBCUTANEOUSLY TWICE DAILY Inactive Outpatient Medications Status 1) APIXABAN 5MG TAB TAKE ONE-HALF TABLET BY MOUTH TWICE DAILY FOR PREVENTION OF BLOOD CLOTS 2) LIDOCAINE 5% OINT APPLY LIBERAL AMOUNT TOPICALLY TWICE DAILY NEEDED FOR NEUROPATHY PAIN Active Non-VA Medications Status 1) Non-VA AMIODARONE HCL 200MG TAB 200MG BY MOUTH TWICE ACTIVE DAILY 2) Non-VA ATORVASTATIN CALCIUM 20MG TAB 10MG BY MOUTH ACTIVE 3) Non-VA FENOFIBRATE 54MG TAB 108MG BY MOUTH ONCE DAILY ACTIVE 4) Non-VA FINASTERIDE 5MG TAB 5MG BY MOUTH ONCE DAILY ACTIVE 5) Non-VA FLUTICAS 500/SALMETEROL 50 INHL DISK 60 1 PUFF ACTIVE BY MOUTH ONCE DAILY 6) Non-VA FUROSEMIDE 40MG TAB 40MG BY MOUTH TWICE DAILY ACTIVE 7) Non-VA METOPROLOL TARTRATE 25MG TAB 12.5MG BY MOUTH ACTIVE TWICE DAILY 8) Non-VA TERAZOSIN HCL 5MG CAP 5MG BY MOUTH ONCE DAILY ACTIVE 14 Total Medications Review of Systems: Constitutional: (-)for Fevers, chills, weakness, nights sweats On examination: 97.6 F [36.4 C] (01/06/2024 09:24)144/65 (01/06/2024 09:24)78 (01/06/2024 09:24)16 (01/06/2024 09:24)0 (01/06/2024 09:24)BMI: 29.1180 lb [81.65 kg] (01/06/2024 09:24) [place] is alert and oriented X3 Eyes:No scleral icterus, lids normal, Pupils equal,round and reactive to light Cardiovasc: 2plus carotids without bruits, no JVD Heart Reguler rate and rhythm NL S1S2 no S3 or murmur Respiration: Normal respiratory effort, lungs clear ABD: Benign normal active bowel sounds no HSM no rebound or referred pain EXT: no clubbing, edema, or cyanosis All diagnostics from past month were reviewed with patient. Assessment/plan: Active problems - Computerized Problem List is the source for the followin. Chronic obstructive pulmonary disease - stable 2. Type 2 diabetes mellitus - VA managed 3. Chronic kidney disease due to type 2 diabetes mellitus - while in the hosp, 11/25 cr 1.34, GFR 53 4. Essential hypertension - repeat 132/74 5. Atrial fibrillation - rate controlled, has pacemaker 6. 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 HTN Assess for Elevated BP>=140/90: Repeat blood pressure: 132/74 The patient's blood pressure is usually adequately controlled. No medication changes are indicated at this time. Medication Reconciliation: Outpatient: Has the patient been taking medications as documented in the EMLR? YES: The patient has been taking medications as documented in the EMLR. Essential Medication List for Review used to complete this medication reconciliation. INCLUDED IN THIS LIST: Alphabetical list of active outpatient prescriptions dispensed from this [place] (local) and dispensed from another [place] or [facility] facility (remote) as well as inpatient orders [...] with a VA or non-VA provider. /jus/ Abad Russell [facility], CNL Primary Care Nurse Practitioner Signed: 01/06/2024 15:47 ABAD RUSSELL [place] [facility] [place] [facility] Jan 06, 2024 10:18 AM PREVENTIVE MEDICINE NURSING NOTE: LOCAL TITLE: CLINICAL REMINDERS/NURSING STANDARD TITLE: PREVENTIVE MEDICINE NURSING NOTE DATE OF NOTE: JAN 06, 2024@10:18 ENTRY DATE: JAN 06, 2024@10:18:51 AUTHOR: MARICRUZ CATHERINE EXP COSIGNER: URGENCY: STATUS: COMPLETED Depression Screening: Perform PHQ-2 A PHQ-2 screen was performed. The score was 0 which is a negative screen for depression. Over the past two weeks, how often have you been bothered by the following problems? 1. Little interest or pleasure in doing things Not at all 2. Feeling down, depressed, or hopeless Not at all Tobacco Use Screening: The patient is a former tobacco user. The patient quit fifteen or more years ago. Alcohol Use Screen (AUDIT-C): Alcohol Screen: SCREEN FOR ALCOHOL (AUDIT-C) An alcohol screening test (AUDIT-C) was negative (score=0). 1. How often did you have a drink containing alcohol in the past year? Consider a drink to be a 12 ounce can or bottle of regular beer, 8 ounces of malt liquor, a 5 ounce glass of table wine, or a 1.5 ounce shot of liquor (like scotch, gin, or vodka). Never 2. How many drinks containing alcohol did you have on a typical day when you were drinking in the past year? Response not required due to responses to other questions. 3. How often did you have six or more drinks on one occasion in the past year? Response not required due to responses to other questions. COVID-19 Immunization: Refused Moderna Monovalent COVID-19 vaccine Immunization: COVID-19 (MODERNA), MRNA, LNP-S, PF, 50 MCG/0.5 ML (AGES 12+ YEARS) Refusal Reason: PATIENT DECISION Patient refuses all immunization(s) in the COVID-19 group Date Documented: 01/06/24 10:19 Sexual Orientation: The patient thinks of their sexual orientation as: Straight or Heterosexual /jus/ MARICRUZ CATHERINE LPN License Practical Nurse Signed: 01/06/2024 10:20 MARICRUZ CATHERINE [place] [facility]
--- OUTSIDE RECORDS SUMMARY | 2024-03-26 16:28 | XMS_ITS | Encounter Summary ---
Author Name [facility] [place] Organization [facility] [place] Address [address] [place] [id number] Care Team Providers [employer] Physical Education Teacher Name Role Phone AJAY RUSSELL Primary Care [...] PART A Nov 22, 2006 PART A [id number] TONY LOGAN PATIENT MEDICARE (WNR) MEDICARE (M) PART B Nov 22, 2006 PART B [id number] TONY LOGAN PATIENT MEDICARE (WNR) MEDICARE (M) PART A Nov 22, 2006 PART A [id number] TONY LOGAN PATIENT MEDICARE (WNR) MEDICARE (M) PART B Nov 22, 2006 PART B [id number] TONY LOGAN PATIENT FOR LIFE TFL* Apr 20, 2014 [id number] SUKHJINDER LOGAN JR PATIENT Selected Encounter This section includes the information on record at [place] for the Encounter. Date/Time Encounter Type Encounter Description Reason Provider Source Feb 23, 2024 03:00 PM DIAB MANAGE TRN [facility] ICD-10-CM E11.8 Type 2 diabetes mellitus with unspecified complications ROBB ROSAS [facility] Encounter Template Text not used by [place] Assessments - Encounter Diagnoses This section includes the primary and secondary diagnoses documented for the Encounter. Date/Time Primary/Secondary Diagnosis Diagnosis Name Provider Source Feb 23, 2024 04:23 PM PRIMARY Type 2 diabetes mellitus with unspecified complications ROBB ROSAS [facility] [place] [facility] Plan of Treatment: Future Appointments (+ 6 months) and Future Tests (+/- 45 days) The Plan of Treatment section includes future care activities for the patient from all [place] [facility]. This section includes future appointments and future [...] 03, 2024 02:00 PM AMBULATORY - MEDICINE IN [facility] [place] [facility] Mar 03, 2024 02:30 PM AMBULATORY - MEDICINE IN [facility] [place] [facility] Mar 30, 2024 03:00 PM AMBULATORY - MEDICINE IN [facility] [place] [facility] Mar 31, 2024 02:30 PM AMBULATORY - MEDICINE IN [facility] [place] [facility] Apr 07, 2024 08:00 AM AMBULATORY - MEDICINE IN [facility] [place] [facility] May 17, 2024 02:00 PM AMBULATORY - MEDICINE IN [facility] [place] [facility] Jul 08, 2024 09:00 AM AMBULATORY - MEDICINE [facility] [place] [facility] Active, Pending, and Scheduled Orders This section includes a listing of several types of active, pending, and scheduled orders, including clinic medications orders, diagnostic test orders, procedure orders and consult orders; where the start date of the order is 45 days before the date of the Encounter or 45 days after the date of theEncounter. The data comes from all [place] treatment facilities. Test Date/Time Test Type Test Details Facility Name Mar 26, 2024 12:00 AM Laboratory - Chemistry Order HEMOGLOBIN A1C PANEL BLOOD (LAV-BLOOD) [facility] Mar 26, 2024 12:00 AM Laboratory - Chemistry Order MICROALBUMIN CREATININE RATIO PANEL URINE (RANDOM) [facility] Mar 26, 2024 12:00 AM Laboratory - Chemistry Order BASIC METABOLIC PANEL (non-fasting) BLOOD (SST-SERUM) [facility] Mar 26, 2024 12:00 AM Laboratory - Chemistry Order LIPID PANEL FASTING BLOOD (SST-SERUM) [facility] Lab Results: +/- 30 days of [...] Range Comment Jan 29, 2024 09:49 AM [facility] CREATININE (eGFR 2020) Specimen Type: SERUM No comment entered. Ordering Provider: LAURA RUSSELL Report Released Date/Time: Jan 27, 2024 07:33 AM Reporting Lab: [address] [address] Performing Lab: [address] [address] CREATININE, Serum 1.86 mg/dL H 0.50-1.40 eGFR(CKD-EPI 2020) 36 mL/min L >60 Jan 29, 2024 09:49 AM [facility] LIVER FUNCTION Specimen Type: SERUM No comment entered. Ordering Provider: LAURA RUSSELL Report Released Date/Time: Jan 27, 2024 07:33 AM Reporting Lab: [address] [phone] Performing Lab: [address] [address] PROTEIN,TOTAL 7.4 g/dL 6.0-8.3 ALBUMIN 3.2 g/dL L 3.5-5.0 ALKALINE PHOSPHATASE 66 U/L 40-150 AST 30 U/L 5-34 ALT 31 U/L BILIRUBIN, TOTAL 0.4 mg/dL 0.2-1.2 Jan 29, 2024 09:49 AM [facility] PT & INR (COUMADIN) Specimen Type: PLASMA No comment entered. Ordering Provider: LAURA RUSSELL Report Released Date/Time: Jan 27, 2024 07:33 AM Reporting Lab: [address] [phone] Performing Lab: [address] [address] INR 1.3 PROTIME 14.6 s H 10.0-13.1 Jan 29, 2024 09:49 AM [facility] CBC Specimen Type: BLOOD No comment entered. Ordering Provider: LAURA RUSSELL Report Released Date/Time: Jan 27, 2024 07:33 AM Reporting Lab: [address] [address] Performing Lab: [address] [address] WBC 6.95 10*3/uL 4.50-11.00 RBC 3.19 10*6/uL [...] place. Date/Time Current Smoking Status Comment Robby albrecht Jan 06, 2024 09:30 AM IN-TOBACCO QUIT 15 YRS OR MORE [facility] [place] [facility] Tobacco Use History This section includes a history of the smoking, or tobacco-related health factors, that were collected on or before the date of the Encounter. The data comes from the [place] facility where the Encounter took place. Date/Time Smoking Status/Tobac co Use Comment Facility Jan 06, 2024 09:30 AM VA-TOBACCO QUIT 15 YRS OR MORE IN [facility] [place] [facility] Dec 24, 2022 10:30 AM VA-TOBACCO FORMER USER [facility] [place] [facility] Dec 24, 2022 10:30 AM VA-TOBACCO QUIT 15 YRS OR MORE IN [facility] [place] [facility] Dec 24, 2021 10:00 AM VA-TOBACCO FORMER USER [facility] [place] [facility] Dec 24, 2021 10:00 AM VA-TOBACCO QUIT 5 TO < 15 YRS IN [facility] [place] [facility] Dec 14, 2020 08:30 AM VA-TOBACCO FORMER USER IN [facility] [place] [facility] Dec 14, 2020 08:30 AM VA-TOBACCO QUIT 5 TO < 15 YRS IN [facility] [place] [facility] Nov 15, 2019 11:00 AM VA-TOBACCO FORMER USER IN [facility] [place] [facility] Nov 15, 2019 11:00 AM VA-TOBACCO QUIT 5 TO < 15 YRS IN [facility] [place] [facility] Oct 20, 2017 08:19 AM VA-TOBACCO FORMER USER IN [facility] [place] [facility] Oct 20, 2017 08:19 AM VA-TOBACCO QUIT 5 TO < 15 YRS IN [facility] [place] [facility] Sep 04, 2017 11:09 AM QUIT TOBACCO USE > 7 YEARS AGO IN [facility] [place] [facility] Oct 16, 2016 09:08 AM QUIT TOBACCO USE > 7 YEARS AGO IN [facility] [place] [facility] Feb 20, 2015 10:58 AM QUIT TOBACCO USE > 7 YEARS AGO quit 2009-cigarettes and cigars for 45 years IN [facility] [place] [facility] Advance Directives: [...] Mar 23, 2014 ADVANCE DIRECTIVE ROSALINDA SHELBY IN [facility] Encounter Notes: All associated encounter notes This section contains the clinical notes associated to the Encounter. Date/Time Encounter Note(s) Provider Source Feb 24, 2024 02:08 PM ADDENDUM: LOCAL TITLE: Addendum STANDARD TITLE: ADDENDUM DATE OF NOTE: FEB 24, 2024@14:08:40 ENTRY DATE: FEB 24, 2024@14:08:42 AUTHOR: ANGELES JUNIOR COSIGNER: URGENCY: STATUS: COMPLETED Patient is scheduled for 05/17 at 2:00 for an in clinic visit. Last appt was cancelled due to Devon 3 being unavailable. Patient states he needs his Devon renewed - he is on his last sensor /jus/ ANGELES JUNIOR Clinical Wrestling Coach Signed: 02/24/2024 14:10 Receipt Acknowledged By: 02/24/2024 15:46 /jus/ VICTORINA TIRADO PHARMStephie,[facility]PS CLINICAL PHARMACY PRACTITIONER --- Original Document --- 02/23/24 DIABETES EDU FOLLOW UP: FOLLOW UP DIABETES EDUCATION VISIT Demographics: Patient Name: TONY LOGAN JR Age: 83 Sex: MALE Race: WHITE MARITAL STATUS - Introduction: Ray identified with 2 identifiers: [X] Full Name [X] Date of [ ] Address [ ] IN ID Card PATIENT PHONE - PHONE NUMBER [CELLULAR] - Is patient phone number correct, if not, enter below: Ray's phone number: TONY LOGAN JR [address] [facility] [address] [place], [place], [address] MOST RECENT LABS: HEMOGLOBIN A1C TREND Collection DT Spec HGBA1c 11/05/2023 07:31 BLOOD 8.1 H 08/06/2023 07:31 BLOOD 7.7 H 05/05/2023 07:48 BLOOD 7.2 H 01/03/2023 09:54 BLOOD 7.8 H 10/01/2022 09:40 BLOOD 7.8 H CHEM 7 TREND LAB CUMULATIVE SELECTED Collection DT Spec GLUCOSE BUN CREATIN Sodium K+/Pot CL CO2 01/29/2024 09:49 SERUM 1.86 H 11/11/2023 09:05 SERUM 412 H 39 H 1.99 H 132 L 4.6 101 19 L 11/05/2023 07:31 SERUM 198 H 49 H 2.33 H 135 4.5 102 20 08/06/2023 07:31 SERUM 230 H 31 H 1.67 H 136 4.2 103 21 05/05/2023 07:48 SERUM 148 H 17 1.45 H 140 4.4 110 21 LAB CUMULATIVE SELECTED 2 No selection items [...] 114 31 L 3.7 60 113 CREATININE-EGFR 01/29/24 09:49 1.86 H 11/11/23 09:05 1.99 H 11/05/23 07:31 2.33 H EGFR - NONE FOUND WEIGHT: 180 lb [81.65 kg] (01/06/2024 09:24) HEIGHT: 66 in [167.6 cm] (11/13/2023 09:26) BMI: 29.1 REASON FOR EDUCATION VISIT TODAY: Diagnosed with Type 2 diabetes since 1981. He was in his 30s when diagnosed. Had an aortic valve replacement via cardiac cath in November of 2024 Had surgery in May to implant pacemaker. [...] 97.6 F [36.4 C] (01/06/2024 09:24) Oxygen saturation: Pulse Oximetry VITAL SIGNS SELECTED Measurement DT POx (L/MIN)(%) 01/06/2024 09:24 98 Pain: 0 (01/06/2024 09:24) WEIGHT: 180 lb [81.65 kg] (01/06/2024 09:24) HEIGHT: 66 in [167.6 cm] (11/13/2023 09:26) BMI: 29.1 ALLERGIES: Patient has answered NKA Living arrangements: X Alone- has a cat Spouse Family Friend Support system Diabetes health history: Diagnosed since 1981 Type of diabetes: Type 1 X Type 2 PRE diabetes Mother had diabetes- of liver disease Substance use: X Cigarettes- stopped 30 years ago, smoked since 14 years old. X Alcohol- quit in 1981 (came to the [employer] program to quit) Marijuana- no Other- no None DIABETES SELF MANAGEMENT DIET: In the last 12 months, were there times when food did not last and there was no money to buy more? No, [facility] in [place] offers a bag of groceries for Veterans. He does get help from them. Breakfast: eggs and oatmeal or other cereals (special K); coffee black Lunch: make his own soup with crackers, water Dinner: tea and pasta or beans or chicken, ham, frozen vegetables Snacks: chips, peanuts, not snacking too much Beverages consumed: Goal weight desired: lbs Has gained a couple of pounds. SLEEP Typical sleep pattern: Not good, does have sleep apnea and does not use the machine. He has trouble sleeping with it. It keeps him up. He was given Lorazepam to help him sleep. Bedtime: 9 pm. Waketime: 4-5 am. Naps: once and a while Comments: PHYSICAL ACTIVITY Type: Currently doing Cardiac Rehab- Third week. Working on 3 machines (treadmill, new step, bicycle) Having trouble with treadmill. He finds he gets tired after 10 minutes. Level: Frequency: Duration: Limitations: Walks for 1/2 mile and then he is done (because he is tired) DIABETES MEDICATIONS Glargine 11 units in the AM and 11 units in the PM. Aspart 9 units for eggs, 13 units for cereal AM, 6 units noon, 9 units dinner Empagliflozin (started this week): 25 mg once a week (no UTIs, no rash) STORAGE OF INSULIN/OTHER INJECTABLES: INJECTIONS SITES: SITES VIEWED: ANY EVIDENCE OF LIPOHYPERTROPHY History of hypoglycemia: Symptoms: Had a few 1-2x/month. Feels sweating, shaking, Frequency: once a week Typical treatment: glucose tablets 3-4 Medic ID: Has one from [place] Glucagon kit: No MONITORING Currently using the Devon 3 sensor and ornamental plasterer helper and able to download it during appointment. No trouble with sensor falling off. Download from today: Name: Tony Logan Date of : 1940 Report Period: 01/27/2024 - 02/23/2024 (28 days) Generated: 02/23/2024 % Time CGM Active: 99% Glucose Statistics and Targets Average Glucose: 219 mg/dL Glucose Management Indicator (GMI): 8.5% Glucose Variability (%CV): 26.4% Target Range: 70 - 180 mg/dL Time in Ranges Very High: >250 mg/dL --- 26% High: 181 - 250 mg/dL --- 47% Target Range: 70 - 180 mg/dL --- 27% Low: 54 - 69 mg/dL --- 0% Very Low: <54 mg/dL --- 0% The main trend noted are all glucose are above 180 mg/dl most of the time. He is 47% above 180 mg/dl and 27% in target range. No pattern of hypoglycemia. Download from December of 2023: Name: Tony Logan Date of : 1940 [...] or hospitalizations in the past year? Comments: None DIABETES DISTRESS On a scale of 1-6 where 1 is no problem and 6 is a very serious problem, rate the following: Feeling overwhelmed by the demands of living with diabetes: 2 Feeling that I am failing my diabetes routine: 3, forgetting to take insulin before meals. DIABETIC-RELATED CHRONIC COMPLICATIONS EYES: Retinopathy- no Maculopathy- no Glaucoma- no X Cataracts- had surgery in 2009. Had 5 facial surgeries next to the eye. The right eye (the vision is funny, it gets tired easily). Blindness- no Blurring- no Comments: Has an appt in February. KIDNEYS: Difficulty emptying bladder- no Urinary tract infection- no X Proteinuria- mild Nephropathy- no Denied concerns Comments: Has low GFR and mildly higher microalbumin Not seeing a specialist for his kidneys. FEET/LEGS/SKIN: Dry skin Previous/current ulcer- no skin break down Hard/thick toenails- no Palpable pulses Pain on walking- no, but does get tired quickly Charcot joint Pain at rest- does have restless feelings in feet and legs Gangrene/amputation- no Tingling/Numbness: Hands X Feet- left foot (veins replaced, had to clean the arteries, placed a bovine vein) Has swelling in his left leg all the time. Denied concerns Comments: Last seen by director business management this month. CARDIOVASCULAR/CEREBROVASCU LAR Pain/palpitations- no, has a heart murmur Angina pectoris Myocardial infarction- No Hypertension- being treated Hyperlipidemia- being treated TIA- no Stroke (CVA)- no Denied concerns Comments: Aortic valve replacement and pacemaker installed. 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 Prior diabetes education: SMART GOALS HEALTH GOAL #1: In order to meet this goal, I will: Continue using the Devon 3 sensor to monitor blood sugars. HEALTH GOAL #2: In order to meet this goal, I will: Clinical or Quality of Life outcome baseline: ASSESSMENT: Kindly referred by Dr. Butts. Aimee came in December to switch to the Devon 3 sensor and he reports that it alerts more often than the Devon 2 with a lost signal alert. He is figuring out what works best for him so that this signal does not go off as much. Last A1C was 8.1% in October and due now for an updated A1C. Encouraged he get this done soon. Ordered A1C for him and will reach out to Dr. Butts to order additional labs (if needed). Aimee is now taking Empagliflozin (even though it was discontinued by [place]) because Sap Director wants him taking it. He did not receive a new meter from the [place] or the company, therefore, we called [employer] today during this appointment and requested they send a meter. The [place] is only giving out 1 meter for the lifetime of the . Recent health history includes: pacemaker implanted in May of 2023 and aortic valve replacement in November of 2023. We adjusted his insulin as follows because sensor download reveals he is above 180 mg/dl most of the day. - Increase Novolog insulin: 9 units before eggs, 15 units before cereal AM, 7 units before noon, and 10 units before dinner Ray will return for Diabetes Education in 1 month and does not have follow up with Dr. Butts, however, likely needs a follow up with Endocrine or Pharmacy. Learning limitations/special education needs: None Barriers to learning: Visual Auditory Literacy Language X None Cultural influences: None Health beliefs/attitudes/feelings about diabetes: None Readiness to learn: Yes Will significant other participate in program? No TEACHING MATERIALS GIVEN: Devon 3 sensors and ornamental plasterer helper. EDUCATION: -Reviewed sensor download in detail. -Reviewed pattern management and insulin adjustment. INSTRUCTIONS: -Continue using the Devon 3 sensor to monitor blood sugars. -Please keep the Devon 2 ornamental plasterer helper incase there is a shortage of Devon 3 sensors. -Adjust insulin as follows: - Increase Novolog 9 units for eggs, 15 units for cereal AM, 7 units before noon, and 10 units before dinner -Have meter and test strips in the house incase you need to use it as a back up plan. -Please call with any questions or concerns. -Follow up with Diabetes Education in 1 month. Patient/Family Verbalized Understanding FUTURE APPOINTMENTS: 03/03/2024 14:00 NHM/OPTOMETRY/SHELLEY/ 03/30/2024 15:00 CWM/NO/DIABETES EDU 1 04/07/2024 08:00 CWM/NO/PODIATRY/NAIL 07/08/2024 09:00 CWM/NO/PACT 7 DM type is : Type 2 diabetes Length of Visit: 60 minutes /jus/ DOUGLAS ROSAS RN,BSN, [place] DIABETES SUPERIOR [employer] JUSTICE, RN Signed: 02/23/2024 16:23 Receipt Acknowledged By: 02/24/2024 08:01 /es/ MIAH BUTTS MD STAFF PHYSICIAN 02/24/2024 07:13 /jus/ Ajay Russell DNP, [place] AUDITOR-, CNL Primary Care Nurse Practitioner 02/23/2024 ADDENDUM STATUS: COMPLETED Dr. Butts- Ray was seen today and his sensor download reveals he is quite elevated most of the day. He is due for an updated A1C and Diabetes Education did not see labs ordered for him. Please order additional labs that you want checked. He may also need a follow up with Endocrine (as there is not one in the future). Sent you a RX to sign off on for sensors (he had no refills) and he is worried about getting them in time for his trip to [place]. He is leaving on the . Diabetes Education is happy to call him with an update after you respond to this message. Thank you! /jus/ DOUGLAS ROSAS RN,BSN, [facility] DIABETES SUPERIOR [facility] JUSTICE, RN Signed: 02/23/2024 16:28 Receipt Acknowledged By: * AWAITING SIGNATURE * MIAH BUTTS 02/23/2024 ADDENDUM STATUS: COMPLETED Pt currently followed in [facility], with no scheduled appts. /tyree BUTTS MD STAFF PHYSICIAN Signed: 02/23/2024 18:57 Receipt Acknowledged By: 02/24/2024 12:50 /jus/ VICTORINA TIRADO PHARMD,[facility] CLINICAL PHARMACY PRACTITIONER 02/23/2024 ADDENDUM STATUS: COMPLETED AMSA, pt is followed by [facility], but, in view of elevated bg, I would like to make a follow up appt with him as well, and ask for labs. Thank you. Please see RTC. /tyree BUTTS MD STAFF PHYSICIAN Signed: 02/23/2024 19:01 Receipt Acknowledged By: 02/24/2024 11:44 /jus/ TOM RIZZO 02/24/2024 ADDENDUM STATUS: COMPLETED AMSA called and left a voicemail for the to schedule the appointment. Mailed appointment letter. /jus/ TOM RIZZO Signed: 02/24/2024 11:53 02/24/2024 ADDENDUM STATUS: COMPLETED Please schedule intial visit with pt 60 mins FTF, VVC or telephone - pt referred by Dr. Butts was initially scheduled and apt was cancelled but not rescheduled? Pt is seeing and Dm education in March- possibly schedule for Apr or May, thank you /tyree TIRADO PHARMD,[facility] CLINICAL PHARMACY PRACTITIONER Signed: 02/24/2024 12:58 Receipt Acknowledged By: 02/24/2024 14:04 /jus/ ANGELES JUNIOR Clinical Wrestling Coach ANGELES JUNIOR IN [facility] [place] [facility] Feb 24, 2024 12:54 PM ADDENDUM: LOCAL TITLE: Addendum STANDARD TITLE: ADDENDUM DATE OF NOTE: FEB 24, 2024@12:54:30 ENTRY DATE: FEB 24, 2024@12:54:31 AUTHOR: VICTORINA TIRADO COSIGNER: URGENCY: STATUS: COMPLETED Please schedule intial visit with pt 60 mins FTF, VVC or telephone - pt referred by Dr. Butts was initially scheduled and apt was cancelled but not rescheduled? Pt is seeing Dr.Abbot and Dm education in March- possibly schedule for Apr or May, thank you /jus/ VICTORINA TIRADO PHARMD,BCPS CLINICAL PHARMACY PRACTITIONER Signed: 02/24/2024 12:58 Receipt Acknowledged By: 02/24/2024 14:04 /jus/ ANGELES JUNIOR Clinical Wrestling Coach --- Original Document --- 02/23/24 DIABETES EDU FOLLOW UP: FOLLOW UP DIABETES EDUCATION VISIT Demographics: Patient Name: TONY LOGAN JR Age: 83 Sex: MALE Race: WHITE MARITAL STATUS - Introduction: Ray identified with 2 identifiers: [X] Full Name [X] Date of [ ] Address [ ] IN ID Card PATIENT PHONE - PHONE NUMBER [CELLULAR] - Is patient phone number correct, if not, enter below: Ray's phone number: TONY LOGAN JR [address] [facility] [address] [place], [place], [address] MOST RECENT LABS: HEMOGLOBIN A1C TREND Collection DT Spec HGBA1c 11/05/2023 07:31 BLOOD 8.1 H 08/06/2023 07:31 BLOOD 7.7 H 05/05/2023 07:48 BLOOD 7.2 H 01/03/2023 09:54 BLOOD 7.8 H 10/01/2022 09:40 BLOOD 7.8 H CHEM 7 TREND LAB CUMULATIVE SELECTED Collection DT Spec GLUCOSE BUN CREATIN Sodium K+/Pot CL CO2 01/29/2024 09:49 SERUM 1.86 H 11/11/2023 09:05 SERUM 412 H 39 H 1.99 H 132 L 4.6 101 19 L 11/05/2023 07:31 SERUM 198 H 49 H 2.33 H 135 4.5 102 20 08/06/2023 07:31 SERUM 230 H 31 H 1.67 H 136 4.2 103 21 05/05/2023 07:48 SERUM 148 H 17 1.45 H 140 4.4 110 21 LAB CUMULATIVE SELECTED 2 No selection items [...] 114 31 L 3.7 60 113 CREATININE-EGFR 01/29/24 09:49 1.86 H 11/11/23 09:05 1.99 H 11/05/23 07:31 2.33 H EGFR - NONE FOUND WEIGHT: 180 lb [81.65 kg] (01/06/2024 09:24) HEIGHT: 66 in [167.6 cm] (11/13/2023 09:26) BMI: 29.1 REASON FOR EDUCATION VISIT TODAY: Diagnosed with Type 2 diabetes since 1981. He was in his 30s when diagnosed. Had an aortic valve replacement via cardiac cath in November of 2024 Had surgery in May to implant pacemaker. [...] 97.6 F [36.4 C] (01/06/2024 09:24) Oxygen saturation: Pulse Oximetry VITAL SIGNS SELECTED Measurement DT POx (L/MIN)(%) 01/06/2024 09:24 98 Pain: 0 (01/06/2024 09:24) WEIGHT: 180 lb [81.65 kg] (01/06/2024 09:24) HEIGHT: 66 in [167.6 cm] (11/13/2023 09:26) BMI: 29.1 ALLERGIES: Patient has answered NKA Living arrangements: X Alone- has a cat Spouse Family Friend Support system [...] no money to buy more? No, [employer] [place] in [place] offers a bag of groceries for Veterans. He does get help from them. Breakfast: eggs and oatmeal or other cereals (special K); coffee black Lunch: make his own soup with crackers, water Dinner: tea and pasta or beans or chicken, ham, frozen vegetables Snacks: chips, peanuts, not snacking too much Beverages consumed: Goal weight desired: lbs Has gained a couple of pounds. SLEEP Typical sleep pattern: Not good, does have sleep apnea and does not use the machine. He has trouble sleeping with it. It keeps him up. He was given Lorazepam to help him sleep. Bedtime: 9 pm. Waketime: 4-5 am. Naps: once and a while Comments: PHYSICAL ACTIVITY Type: Currently doing Cardiac Rehab- Third week. Working on 3 machines (treadmill, new step, bicycle) Having trouble with treadmill. He finds he gets tired after 10 minutes. Level: Frequency: Duration: Limitations: Walks for 1/2 mile and then he is done (because he is tired) DIABETES MEDICATIONS Glargine 11 units in the AM and 11 units in the PM. Aspart 9 units for eggs, 13 units for cereal AM, 6 units noon, 9 units dinner Empagliflozin (started this week): 25 mg once a week (no UTIs, no rash) STORAGE OF INSULIN/OTHER INJECTABLES: INJECTIONS SITES: SITES VIEWED: ANY EVIDENCE OF LIPOHYPERTROPHY History of hypoglycemia: Symptoms: Had a few 1-2x/month. Feels sweating, shaking, Frequency: once a week Typical treatment: glucose tablets 3-4 Medic ID: Has one from [place] Glucagon kit: No MONITORING Currently using the [employer] 3 sensor and ornamental plasterer helper and able to download it during appointment. No trouble with sensor falling off. Download from today: Name: Tony Logan Date of : 1940 Report Period: 01/27/2024 - 02/23/2024 (28 days) Generated: 02/23/2024 % Time CGM Active: 99% Glucose Statistics and Targets Average Glucose: 219 mg/dL Glucose Management Indicator (GMI): 8.5% Glucose Variability (%CV): 26.4% Target Range: 70 - 180 mg/dL Time in Ranges Very High: >250 mg/dL --- 26% High: 181 - 250 mg/dL --- 47% Target Range: 70 - 180 mg/dL --- 27% Low: 54 - 69 mg/dL --- 0% Very Low: <54 mg/dL --- 0% The main trend noted are all glucose are above 180 mg/dl most of the time. He is 47% above 180 mg/dl and 27% in target range. No pattern of hypoglycemia. Download from December of 2023: Name: Tony Logan Date of : 1940 [...] or hospitalizations in the past year? Comments: None DIABETES DISTRESS On a scale of 1-6 where 1 is no problem and 6 is a very serious problem, rate the following: Feeling overwhelmed by the demands of living with diabetes: 2 Feeling that I am failing my diabetes routine: 3, forgetting to take insulin before meals. DIABETIC-RELATED CHRONIC COMPLICATIONS EYES: Retinopathy- no Maculopathy- no Glaucoma- no X Cataracts- had surgery in 2009. Had 5 facial surgeries next to the eye. The right eye (the vision is funny, it gets tired easily). Blindness- no Blurring- no Comments: Has an appt in February. KIDNEYS: Difficulty emptying bladder- no Urinary tract infection- no X Proteinuria- mild Nephropathy- no Denied concerns Comments: Has low GFR and mildly higher microalbumin Not seeing a specialist for his kidneys. FEET/LEGS/SKIN: Dry skin Previous/current ulcer- no skin break down Hard/thick toenails- no Palpable pulses Pain on walking- no, but does get tired quickly Charcot joint Pain at rest- does have restless feelings in feet and legs Gangrene/amputation- no Tingling/Numbness: Hands X Feet- left foot (veins replaced, had to clean the arteries, placed a bovine vein) Has swelling in his left leg all the time. Denied concerns Comments: Last seen by director business management this month. CARDIOVASCULAR/CEREBROVASCU LAR Pain/palpitations- no, has a heart murmur Angina pectoris Myocardial infarction- No Hypertension- being treated Hyperlipidemia- being treated TIA- no Stroke (CVA)- no Denied concerns Comments: Aortic valve replacement and pacemaker installed. 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 Prior diabetes education: SMART GOALS HEALTH GOAL #1: In order to meet this goal, I will: Continue using the Devon 3 sensor to monitor blood sugars. HEALTH GOAL #2: In order to meet this goal, I will: Clinical or Quality of Life outcome baseline: ASSESSMENT: Kindly referred by Dr. Butts. Aimee came in December to switch to the Devon 3 sensor and he reports that it alerts more often than the Devon 2 with a lost signal alert. He is figuring out what works best for him so that this signal does not go off as much. Last A1C was 8.1% in October and due now for an updated A1C. Encouraged he get this done soon. Ordered A1C for him and will reach out to Dr. Butts to order additional labs (if needed). Aimee is now taking Empagliflozin (even though it was discontinued by [place]) because Sap Director wants him taking it. He did not receive a new meter from the [place] or the company, therefore, we called [facility] today during this appointment and requested they send Ray a meter. The [place] is only giving out 1 meter for the lifetime of the Ray. Recent health history includes: pacemaker implanted in May of 2023 and aortic valve replacement in November of 2023. We adjusted his insulin as follows because sensor download reveals he is above 180 mg/dl most of the day. - Increase Novolog insulin: 9 units before eggs, 15 units before cereal AM, 7 units before noon, and 10 units before dinner will return for Diabetes Education in 1 month and does not have follow up with Dr. Butts, however, likely needs a follow up with Endocrine or Pharmacy. Learning limitations/special education needs: None Barriers to learning: Visual Auditory Literacy Language X None Cultural influences: None Health beliefs/attitudes/feelings about diabetes: None Readiness to learn: Yes Will significant other participate in program? No TEACHING MATERIALS GIVEN: Devon 3 sensors and ornamental plasterer helper. EDUCATION: -Reviewed sensor download in detail. -Reviewed pattern management and insulin adjustment. INSTRUCTIONS: -Continue using the Devon 3 sensor to monitor blood sugars. -Please keep the Devon 2 ornamental plasterer helper incase there is a shortage of Devon 3 sensors. -Adjust insulin as follows: - Increase Novolog 9 units for eggs, 15 units for cereal AM, 7 units before noon, and 10 units before dinner -Have meter and test strips in the house incase you need to use it as a back up plan. -Please call with any questions or concerns. -Follow up with Diabetes Education in 1 month. Patient/Family Verbalized Understanding FUTURE APPOINTMENTS: 03/03/2024 14:00 NHM/OPTOMETRY/SHELLEY/ 03/30/2024 15:00 CWM/NO/DIABETES EDU 1 04/07/2024 08:00 CWM/NO/PODIATRY/NAIL 07/08/2024 09:00 CWM/NO/PACT 7 DM type is : Type 2 diabetes Length of Visit: 60 minutes /tyree ROSAS RN,BSN, [facility] DIABETES [address] JUSTICE, RN Signed: 02/23/2024 16:23 Receipt Acknowledged By: 02/24/2024 08:01 /jus/ MIAH BUTTS MD STAFF PHYSICIAN 02/24/2024 07:13 /jus/ Ajay Russell DNP, [employer] AUDITOR-, CNL Primary Care Nurse Practitioner 02/23/2024 ADDENDUM STATUS: COMPLETED Dr. Butts- Ray was seen today and his sensor download reveals he is quite elevated most of the day. He is due for an updated A1C and Diabetes Education did not see labs ordered for him. Please order additional labs that you want checked. He may also need a follow up with Endocrine (as there is not one in the future). Sent you a RX to sign off on for sensors (he had no refills) and he is worried about getting them in time for his trip to [place]. He is leaving on the . Diabetes Education is happy to call him with an update after you respond to this message. Thank you! /tyree ROSAS RN,BSN, [facility] DIABETES [address] JUSTICE, RN Signed: 02/23/2024 16:28 Receipt Acknowledged By: * AWAITING SIGNATURE * MIAH BUTTS 02/23/2024 ADDENDUM STATUS: COMPLETED Pt currently followed in [facility], with no scheduled appts. /tyree BUTTS MD STAFF PHYSICIAN Signed: 02/23/2024 18:57 Receipt Acknowledged By: 02/24/2024 12:50 /jus/ VICTORINA TIRADO, PHARMD,BCPS CLINICAL PHARMACY PRACTITIONER 02/23/2024 ADDENDUM STATUS: COMPLETED AMSA, pt is followed by [facility], but, in view of elevated bg, I would like to make a follow up appt with him as well, and ask for labs. Thank you. Please see RTC. /tyree BUTTS MD STAFF PHYSICIAN Signed: 02/23/2024 19:01 Receipt Acknowledged By: 02/24/2024 11:44 /jus/ TOM RIZZO 02/24/2024 ADDENDUM STATUS: COMPLETED AMSA called and left a voicemail for the to schedule the appointment. Mailed appointment letter. /jus/ TOM RIZZO Signed: 02/24/2024 11:53 VICTORINA TIRADO [facility] Feb 23, 2024 07:00 PM ADDENDUM: LOCAL TITLE: Addendum STANDARD TITLE: ADDENDUM DATE OF NOTE: FEB 23, 2024@19:00:01 ENTRY DATE: FEB 23, 2024@19:00:02 AUTHOR: MIAH BUTTSIGNER: URGENCY: STATUS: COMPLETED AMSA, pt is followed by [facility], but, in view of elevated bg, I would like to make a follow up appt with him as well, and ask for labs. Thank you. Please see RTC. /jus/ MIAH BUTTS MD STAFF PHYSICIAN Signed: 02/23/2024 19:01 Receipt Acknowledged By: 02/24/2024 11:44 /jus/ TOM RIZZO --- Original Document --- 02/23/24 DIABETES EDU FOLLOW UP: FOLLOW UP DIABETES EDUCATION VISIT Demographics: Patient Name: TONY LOGAN JR Age: 83 Sex: MALE Race: WHITE MARITAL STATUS - Introduction: identified with 2 identifiers: [X] Full Name [X] Date of [ ] Address [ ] IN ID Card PATIENT PHONE - PHONE NUMBER [CELLULAR] - Is patient phone number correct, if not, enter below: 's phone number: TONY LOGAN JR [address] [place], [place], [address] MOST RECENT LABS: HEMOGLOBIN A1C TREND Collection DT Spec HGBA1c 11/05/2023 07:31 BLOOD 8.1 H 08/06/2023 07:31 BLOOD 7.7 H 05/05/2023 07:48 BLOOD 7.2 H 01/03/2023 09:54 BLOOD 7.8 H 10/01/2022 09:40 BLOOD 7.8 H CHEM 7 TREND LAB CUMULATIVE SELECTED Collection DT Spec GLUCOSE BUN CREATIN Sodium K+/Pot CL CO2 01/29/2024 09:49 SERUM 1.86 H 11/11/2023 09:05 SERUM 412 H 39 H 1.99 H 132 L 4.6 101 19 L 11/05/2023 07:31 SERUM 198 H 49 H 2.33 H 135 4.5 102 20 08/06/2023 07:31 SERUM 230 H 31 H 1.67 H 136 4.2 103 21 05/05/2023 07:48 SERUM 148 H 17 1.45 H 140 4.4 110 21 LAB CUMULATIVE SELECTED 2 No selection items [...] 114 31 L 3.7 60 113 CREATININE-EGFR 01/29/24 09:49 1.86 H 11/11/23 09:05 1.99 H 11/05/23 07:31 2.33 H EGFR - NONE FOUND WEIGHT: 180 lb [81.65 kg] (01/06/2024 09:24) HEIGHT: 66 in [167.6 cm] (11/13/2023 09:26) BMI: 29.1 REASON FOR EDUCATION VISIT TODAY: Diagnosed with Type 2 diabetes since 1981. He was in his 30s when diagnosed. Had an aortic valve replacement via cardiac cath in November of 2024 Had surgery in May to implant pacemaker. [...] 97.6 F [36.4 C] (01/06/2024 09:24) Oxygen saturation: Pulse Oximetry VITAL SIGNS SELECTED Measurement DT POx (L/MIN)(%) 01/06/2024 09:24 98 Pain: 0 (01/06/2024 09:24) WEIGHT: 180 lb [81.65 kg] (01/06/2024 09:24) HEIGHT: 66 in [167.6 cm] (11/13/2023 09:26) BMI: 29.1 ALLERGIES: Patient has answered NKA Living arrangements: X Alone- has a cat Spouse Family Friend Support system Diabetes health history: Diagnosed since 1981 Type of diabetes: Type 1 X Type 2 PRE diabetes Mother had diabetes- of liver disease Substance use: X Cigarettes- stopped 30 years ago, smoked since 14 years old. X Alcohol- quit in 1981 (came to the [employer] program to quit) Marijuana- no Other- no None DIABETES SELF MANAGEMENT DIET: In the last 12 months, were there times when food did not last and there was no money to buy more? No, [employer] [place] in [place] offers a bag of groceries for Veterans. He does get help from them. Breakfast: eggs and oatmeal or other cereals (special K); coffee black Lunch: make his own soup with crackers, water Dinner: tea and pasta or beans or chicken, ham, frozen vegetables Snacks: chips, peanuts, not snacking too much Beverages consumed: Goal weight desired: lbs Has gained a couple of pounds. SLEEP Typical sleep pattern: Not good, does have sleep apnea and does not use the machine. He has trouble sleeping with it. It keeps him up. He was given Lorazepam to help him sleep. Bedtime: 9 pm. Waketime: 4-5 am. Naps: once and a while Comments: PHYSICAL ACTIVITY Type: Currently doing Cardiac Rehab- Third week. Working on 3 machines (treadmill, new step, bicycle) Having trouble with treadmill. He finds he gets tired after 10 minutes. Level: Frequency: Duration: Limitations: Walks for 1/2 mile and then he is done (because he is tired) DIABETES MEDICATIONS Glargine 11 units in the AM and 11 units in the PM. Aspart 9 units for eggs, 13 units for cereal AM, 6 units noon, 9 units dinner Empagliflozin (started this week): 25 mg once a week (no UTIs, no rash) STORAGE OF INSULIN/OTHER INJECTABLES: INJECTIONS SITES: SITES VIEWED: ANY EVIDENCE OF LIPOHYPERTROPHY History of hypoglycemia: Symptoms: Had a few 1-2x/month. Feels sweating, shaking, Frequency: once a week Typical treatment: glucose tablets 3-4 Medic ID: Has one from [place] Glucagon kit: No MONITORING Currently using the BucketFeet 3 sensor and ornamental plasterer helper and able to download it during appointment. No trouble with sensor falling off. Download from today: Name: Tony Logan Date of : 1940 Report Period: 01/27/2024 - 02/23/2024 (28 days) Generated: 02/23/2024 % Time CGM Active: 99% Glucose Statistics and Targets Average Glucose: 219 mg/dL Glucose Management Indicator (GMI): 8.5% Glucose Variability (%CV): 26.4% Target Range: 70 - 180 mg/dL Time in Ranges Very High: >250 mg/dL --- 26% High: 181 - 250 mg/dL --- 47% Target Range: 70 - 180 mg/dL --- 27% Low: 54 - 69 mg/dL --- 0% Very Low: <54 mg/dL --- 0% The main trend noted are all glucose are above 180 mg/dl most of the time. He is 47% above 180 mg/dl and 27% in target range. No pattern of hypoglycemia. Download from December of 2023: Name: Tony Logan Date of : 1940 [...] or hospitalizations in the past year? Comments: None DIABETES DISTRESS On a scale of 1-6 where 1 is no problem and 6 is a very serious problem, rate the following: Feeling overwhelmed by the demands of living with diabetes: 2 Feeling that I am failing my diabetes routine: 3, forgetting to take insulin before meals. DIABETIC-RELATED CHRONIC COMPLICATIONS EYES: Retinopathy- no Maculopathy- no Glaucoma- no X Cataracts- had surgery in 2009. Had 5 facial surgeries next to the eye. The right eye (the vision is funny, it gets tired easily). Blindness- no Blurring- no Comments: Has an appt in February. KIDNEYS: Difficulty emptying bladder- no Urinary tract infection- no X Proteinuria- mild Nephropathy- no Denied concerns Comments: Has low GFR and mildly higher microalbumin Not seeing a specialist for his kidneys. FEET/LEGS/SKIN: Dry skin Previous/current ulcer- no skin break down Hard/thick toenails- no Palpable pulses Pain on walking- no, but does get tired quickly Charcot joint Pain at rest- does have restless feelings in feet and legs Gangrene/amputation- no Tingling/Numbness: Hands X Feet- left foot (veins replaced, had to clean the arteries, placed a bovine vein) Has swelling in his left leg all the time. Denied concerns Comments: Last seen by director business management this month. CARDIOVASCULAR/CEREBROVASCU LAR Pain/palpitations- no, has a heart murmur Angina pectoris Myocardial infarction- No Hypertension- being treated Hyperlipidemia- being treated TIA- no Stroke (CVA)- no Denied concerns Comments: Aortic valve replacement and pacemaker installed. 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 Prior diabetes education: SMART GOALS HEALTH GOAL #1: In order to meet this goal, I will: Continue using the Devon 3 sensor to monitor blood sugars. HEALTH GOAL #2: In order to meet this goal, I will: Clinical or Quality of Life outcome baseline: ASSESSMENT: Kindly referred by Dr. Butts. Ray came in December to switch to the Devon 3 sensor and he reports that it alerts more often than the Devon 2 with a lost signal alert. He is figuring out what works best for him so that this signal does not go off as much. Last A1C was 8.1% in October and due now for an updated A1C. Encouraged he get this done soon. Ordered A1C for him and will reach out to Dr. Butts to order additional labs (if needed). is now taking Empagliflozin (even though it was discontinued by [place]) because Sap Director wants him taking it. He did not receive a new meter from the [place] or the company, therefore, we called [facility] today during this appointment and requested they send a meter. The [place] is only giving out 1 meter for the lifetime of the Ray. Recent health history includes: pacemaker implanted in May of 2023 and aortic valve replacement in November of 2023. We adjusted his insulin as follows because sensor download reveals he is above 180 mg/dl most of the day. - Increase Novolog insulin: 9 units before eggs, 15 units before cereal AM, 7 units before noon, and 10 units before dinner will return for Diabetes Education in 1 month and does not have follow up with Dr. Butts, however, likely needs a follow up with Endocrine or Pharmacy. Learning limitations/special education needs: None Barriers to learning: Visual Auditory Literacy Language X None Cultural influences: None Health beliefs/attitudes/feelings about diabetes: None Readiness to learn: Yes Will significant other participate in program? No TEACHING MATERIALS GIVEN: Devon 3 sensors and ornamental plasterer helper. EDUCATION: -Reviewed sensor download in detail. -Reviewed pattern management and insulin adjustment. INSTRUCTIONS: -Continue using the Devon 3 sensor to monitor blood sugars. -Please keep the Devon 2 ornamental plasterer helper incase there is a shortage of Devon 3 sensors. -Adjust insulin as follows: - Increase Novolog 9 units for eggs, 15 units for cereal AM, 7 units before noon, and 10 units before dinner -Have meter and test strips in the house incase you need to use it as a back up plan. -Please call with any questions or concerns. -Follow up with Diabetes Education in 1 month. Patient/Family Verbalized Understanding FUTURE APPOINTMENTS: 03/03/2024 14:00 NHM/OPTOMETRY/SHELLEY/ 03/30/2024 15:00 CWM/NO/DIABETES EDU 1 04/07/2024 08:00 CWM/NO/PODIATRY/NAIL 07/08/2024 09:00 CWM/NO/PACT 7 DM type is : Type 2 diabetes Length of Visit: 60 minutes /jus/ DOUGLAS ROSAS RN,BSN, [facility] DIABETES [address] JUSTICE, RN Signed: 02/23/2024 16:23 Receipt Acknowledged By: 02/24/2024 08:01 /tyree BUTTS MD STAFF PHYSICIAN 02/24/2024 07:13 /jus/ Ajay Russell DNP, [employer] AUDITOR-BC, CNL Primary Care Nurse Practitioner 02/23/2024 ADDENDUM STATUS: COMPLETED Dr. Butts- was seen today and his sensor download reveals he is quite elevated most of the day. He is due for an updated A1C and Diabetes Education did not see labs ordered for him. Please order additional labs that you want checked. He may also need a follow up with Endocrine (as there is not one in the future). Sent you a RX to sign off on for sensors (he had no refills) and he is worried about getting them in time for his trip to [place]. He is leaving on the . Diabetes Education is happy to call him with an update after you respond to this message. Thank you! /tyree ROSAS RN,BSN, [facility] DIABETES [address] [facility] JUSTICE, RN Signed: 02/23/2024 16:28 Receipt Acknowledged By: * AWAITING SIGNATURE * MIAH BUTTS 02/23/2024 ADDENDUM STATUS: COMPLETED Pt currently followed in [facility], with no scheduled appts. /tyree BUTTS MD STAFF PHYSICIAN Signed: 02/23/2024 18:57 Receipt Acknowledged By: * AWAITING SIGNATURE * VICTORINA TIRADO [facility] Feb 23, 2024 06:57 PM ADDENDUM: LOCAL TITLE: Addendum STANDARD TITLE: ADDENDUM DATE OF NOTE: FEB 23, 2024@18:57:21 ENTRY DATE: FEB 23, 2024@18:57:21 AUTHOR: MIAH BUTTS COSIGNER: URGENCY: STATUS: COMPLETED Pt currently followed in [facility], with no scheduled appts. /jus/ MIAH BUTTS MD STAFF PHYSICIAN Signed: 02/23/2024 18:57 Receipt Acknowledged By: 02/24/2024 12:50 /jus/ VICTORINA TIRADO, PHARMD,BCPS CLINICAL PHARMACY PRACTITIONER --- Original Document --- 02/23/24 DIABETES EDU FOLLOW UP: FOLLOW UP DIABETES EDUCATION VISIT Demographics: Patient Name: TONY LOGAN JR Age: 83 Sex: MALE Race: WHITE MARITAL STATUS - Introduction: identified with 2 identifiers: [X] Full Name [X] Date of [ ] Address [ ] IN ID Card PATIENT PHONE - PHONE NUMBER [CELLULAR] - Is patient phone number correct, if not, enter below: 's phone number: TONY LOGAN JR [address] [facility] [address] [place], [place], [address] MOST RECENT LABS: HEMOGLOBIN A1C TREND Collection DT Spec HGBA1c 11/05/2023 07:31 BLOOD 8.1 H 08/06/2023 07:31 BLOOD 7.7 H 05/05/2023 07:48 BLOOD 7.2 H 01/03/2023 09:54 BLOOD 7.8 H 10/01/2022 09:40 BLOOD 7.8 H CHEM 7 TREND LAB CUMULATIVE SELECTED Collection DT Spec GLUCOSE BUN CREATIN Sodium K+/Pot CL CO2 01/29/2024 09:49 SERUM 1.86 H 11/11/2023 09:05 SERUM 412 H 39 H 1.99 H 132 L 4.6 101 19 L 11/05/2023 07:31 SERUM 198 H 49 H 2.33 H 135 4.5 102 20 08/06/2023 07:31 SERUM 230 H 31 H 1.67 H 136 4.2 103 21 05/05/2023 07:48 SERUM 148 H 17 1.45 H 140 4.4 110 21 LAB CUMULATIVE SELECTED 2 No selection items [...] 114 31 L 3.7 60 113 CREATININE-EGFR 01/29/24 09:49 1.86 H 11/11/23 09:05 1.99 H 11/05/23 07:31 2.33 H EGFR - NONE FOUND WEIGHT: 180 lb [81.65 kg] (01/06/2024 09:24) HEIGHT: 66 in [167.6 cm] (11/13/2023 09:26) BMI: 29.1 REASON FOR EDUCATION VISIT TODAY: Diagnosed with Type 2 diabetes since 1981. He was in his 30s when diagnosed. Had an aortic valve replacement via cardiac cath in November of 2024 Had surgery in May to implant pacemaker. [...] 97.6 F [36.4 C] (01/06/2024 09:24) Oxygen saturation: Pulse Oximetry VITAL SIGNS SELECTED Measurement DT POx (L/MIN)(%) 01/06/2024 09: 98 Pain: 0 (01/06/2024 09:24) WEIGHT: 180 lb [81.65 kg] (01/06/2024 09:24) HEIGHT: 66 in [167.6 cm] (11/13/2023 09:26) BMI: 29.1 ALLERGIES: Patient has answered NKA Living arrangements: X Alone- has a cat Spouse Family Friend Support system Diabetes health history: Diagnosed since 1981 Type of diabetes: Type 1 X Type 2 PRE diabetes Mother had diabetes- of liver disease Substance use: X Cigarettes- stopped 30 years ago, smoked since 14 years old. X Alcohol- quit in 1981 (came to the [place] program to quit) Marijuana- no Other- no None DIABETES SELF MANAGEMENT DIET: In the last 12 months, were there times when food did not last and there was no money to buy more? No, [employer] [place] in [place] offers a bag of groceries for Veterans. He does get help from them. Breakfast: eggs and oatmeal or other cereals (special K); coffee black Lunch: make his own soup with crackers, water Dinner: tea and pasta or beans or chicken, ham, frozen vegetables Snacks: chips, peanuts, not snacking too much Beverages consumed: Goal weight desired: lbs Has gained a couple of pounds. SLEEP Typical sleep pattern: Not good, does have sleep apnea and does not use the machine. He has trouble sleeping with it. It keeps him up. He was given Lorazepam to help him sleep. Bedtime: 9 pm. Waketime: 4-5 am. Naps: once and a while Comments: PHYSICAL ACTIVITY Type: Currently doing Cardiac Rehab- Third week. Working on 3 machines (treadmill, new step, bicycle) Having trouble with treadmill. He finds he gets tired after 10 minutes. Level: Frequency: Duration: Limitations: Walks for 1/2 mile and then he is done (because he is tired) DIABETES MEDICATIONS Glargine 11 units in the AM and 11 units in the PM. Aspart 9 units for eggs, 13 units for cereal AM, 6 units noon, 9 units dinner Empagliflozin (started this week): 25 mg once a week (no UTIs, no rash) STORAGE OF INSULIN/OTHER INJECTABLES: INJECTIONS SITES: SITES VIEWED: ANY EVIDENCE OF LIPOHYPERTROPHY History of hypoglycemia: Symptoms: Had a few 1-2x/month. Feels sweating, shaking, Frequency: once a week Typical treatment: glucose tablets 3-4 Medic ID: [place] one from [place] Glucagon kit: No MONITORING Currently using the BucketFeet 3 sensor and ornamental plasterer helper and able to download it during appointment. No trouble with sensor falling off. Download from today: Name: Tony Logan Date of : 1940 Report Period: 01/27/2024 - 02/23/2024 (28 days) Generated: 02/23/2024 % Time CGM Active: 99% Glucose Statistics and Targets Average Glucose: 219 mg/dL Glucose Management Indicator (GMI): 8.5% Glucose Variability (%CV): 26.4% Target Range: 70 - 180 mg/dL Time in Ranges Very High: >250 mg/dL --- 26% High: 181 - 250 mg/dL --- 47% Target Range: 70 - 180 mg/dL --- 27% Low: 54 - 69 mg/dL --- 0% Very Low: <54 mg/dL --- 0% The main trend noted are all glucose are above 180 mg/dl most of the time. He is 47% above 180 mg/dl and 27% in target range. No pattern of hypoglycemia. Download from December of 2023: Name: Tony Logan Date of : 1940 [...] or hospitalizations in the past year? Comments: None DIABETES DISTRESS On a scale of 1-6 where 1 is no problem and 6 is a very serious problem, rate the following: Feeling overwhelmed by the demands of living with diabetes: 2 Feeling that I am failing my diabetes routine: 3, forgetting to take insulin before meals. DIABETIC-RELATED CHRONIC COMPLICATIONS EYES: Retinopathy- no Maculopathy- no Glaucoma- no X Cataracts- had surgery in 2009. Had 5 facial surgeries next to the eye. The right eye (the vision is funny, it gets tired easily). Blindness- no Blurring- no Comments: Has an appt in February. KIDNEYS: Difficulty emptying bladder- no Urinary tract infection- no X Proteinuria- mild Nephropathy- no Denied concerns Comments: Has low GFR and mildly higher microalbumin Not seeing a specialist for his kidneys. FEET/LEGS/SKIN: Dry skin Previous/current ulcer- no skin break down Hard/thick toenails- no Palpable pulses Pain on walking- no, but does get tired quickly Charcot joint Pain at rest- does have restless feelings in feet and legs Gangrene/amputation- no Tingling/Numbness: Hands X Feet- left foot (veins replaced, had to clean the arteries, placed a bovine vein) Has swelling in his left leg all the time. Denied concerns Comments: Last seen by director business management this month. CARDIOVASCULAR/CEREBROVASCU LAR Pain/palpitations- no, has a heart murmur Angina pectoris Myocardial infarction- No Hypertension- being treated Hyperlipidemia- being treated TIA- no Stroke (CVA)- no Denied concerns Comments: Aortic valve replacement and pacemaker installed. 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 Prior diabetes education: SMART GOALS HEALTH GOAL #1: In order to meet this goal, I will: Continue using the Devon 3 sensor to monitor blood sugars. HEALTH GOAL #2: In order to meet this goal, I will: Clinical or Quality of Life outcome baseline: ASSESSMENT: Kindly referred by Dr. Butts. Ray came in December to switch to the Devon 3 sensor and he reports that it alerts more often than the Devon 2 with a lost signal alert. He is figuring out what works best for him so that this signal does not go off as much. Last A1C was 8.1% in October and due now for an updated A1C. Encouraged he get this done soon. Ordered A1C for him and will reach out to Dr. Butts to order additional labs (if needed). is now taking Empagliflozin (even though it was discontinued by [place]) because Sap Director wants him taking it. He did not receive a new meter from the [place] or the company, therefore, we called [facility] today during this appointment and requested they send a meter. The [place] is only giving out 1 meter for the lifetime of the Ray. Recent health history includes: pacemaker implanted in May of 2023 and aortic valve replacement in November of 2023. We adjusted his insulin as follows because sensor download reveals he is above 180 mg/dl most of the day. - Increase Novolog insulin: 9 units before eggs, 15 units before cereal AM, 7 units before noon, and 10 units before dinner will return for Diabetes Education in 1 month and does not have follow up with Dr. Butts, however, likely needs a follow up with Endocrine or Pharmacy. Learning limitations/special education needs: None Barriers to learning: Visual Auditory Literacy Language X None Cultural influences: None Health beliefs/attitudes/feelings about diabetes: None Readiness to learn: Yes Will significant other participate in program? No TEACHING MATERIALS GIVEN: Devon 3 sensors and ornamental plasterer helper. EDUCATION: -Reviewed sensor download in detail. -Reviewed pattern management and insulin adjustment. INSTRUCTIONS: -Continue using the Devon 3 sensor to monitor blood sugars. -Please keep the Devon 2 ornamental plasterer helper incase there is a shortage of Devon 3 sensors. -Adjust insulin as follows: - Increase Novolog 9 units for eggs, 15 units for cereal AM, 7 units before noon, and 10 units before dinner -Have meter and test strips in the house incase you need to use it as a back up plan. -Please call with any questions or concerns. -Follow up with Diabetes Education in 1 month. Patient/Family Verbalized Understanding FUTURE APPOINTMENTS: 03/03/2024 14:00 NHM/OPTOMETRY/SHELLEY/ 03/30/2024 15:00 CWM/NO/DIABETES EDU 1 04/07/2024 08:00 CWM/NO/PODIATRY/NAIL 07/08/2024 09:00 CWM/NO/PACT 7 DM type is : Type 2 diabetes Length of Visit: 60 minutes /jus/ DOUGLAS ROSAS, RN,BSN, [facility] DIABETES [address] JUSTICE, RN Signed: 02/23/2024 16:23 Receipt Acknowledged By: 02/24/2024 08:01 /jus/ MIAH BUTTS MD STAFF PHYSICIAN 02/24/2024 07:13 /jus/ Ajay Russell DNP, [employer] AUDITOR-BC, CNL Primary Care Nurse Practitioner 02/23/2024 ADDENDUM STATUS: COMPLETED Dr. Butts- Ray was seen today and his sensor download reveals he is quite elevated most of the day. He is due for an updated A1C and Diabetes Education did not see labs ordered for him. Please order additional labs that you want checked. He may also need a follow up with Endocrine (as there is not one in the future). Sent you a RX to sign off on for sensors (he had no refills) and he is worried about getting them in time for his trip to [place]. He is leaving on the . Diabetes Education is happy to call him with an update after you respond to this message. Thank you! /tyree ROSAS, RN,BSN, [facility] DIABETES [address] JUSTICE, RN Signed: 02/23/2024 16:28 Receipt Acknowledged By: * AWAITING SIGNATURE * MIAH BUTTS 02/23/2024 ADDENDUM STATUS: COMPLETED AMSA, pt is followed by [facility], but, in view of elevated bg, I would like to make a follow up appt with him as well, and ask for labs. Thank you. Please see RTC. /tyree BUTTS MD STAFF PHYSICIAN Signed: 02/23/2024 19:01 Receipt Acknowledged By: 02/24/2024 11:44 /jus/ TOM RIZZO 02/24/2024 ADDENDUM STATUS: COMPLETED AMSA called and left a voicemail for the to schedule the appointment. Mailed appointment letter. /jus/ TOM RIZZO Signed: 02/24/2024 11:53 [facility] [place] [facility] Feb 23, 2024 04:28 PM DIABETOLOGY NOTE: LOCAL TITLE: INSULIN PUMP/CGM DOWNLOAD (T) STANDARD TITLE: DIABETOLOGY NOTE DATE OF NOTE: FEB 23, 2024@16:28 ENTRY DATE: FEB 23, 2024@16:28:29 AUTHOR: DOUGLAS ROSAS EXP COSIGNER: URGENCY: STATUS: COMPLETED Please select: Personal Continuous Glucose Monitor Date of Documentation:Feb Please see attached scanned document in [facility] [facility]. DX: Type 2 diabetes Sensor: Devon 3 /jus/ DOUGLAS ROSAS RN,BSN, [facility] DIABETES [address] [facility] JUSTICE, RN Signed: 02/23/2024 16:28 [facility]AS ROSAS [facility] [place] [facility] Feb 23, 2024 04:25 PM ADDENDUM: LOCAL TITLE: Addendum STANDARD TITLE: ADDENDUM DATE OF NOTE: FEB 23, 2024@16:25:27 ENTRY DATE: FEB 23, 2024@16:25:27 AUTHOR: DOUGLAS ROSAS EXP COSIGNER: URGENCY: STATUS: COMPLETED Dr. Butts- was seen today and his sensor download reveals he is quite elevated most of the day. He is due for an updated A1C and Diabetes Education did not see labs ordered for him. Please order additional labs that you want checked. He may also need a follow up with Endocrine (as there is not one in the future). Sent you a RX to sign off on for sensors (he had no refills) and he is worried about getting them in time for his trip to [place]. He is leaving on the . Diabetes Education is happy to call him with an update after you respond to this message. Thank you! /tyree ROSAS RN,BSN, [facility] DIABETES [address] [facility] JUSTICE, RN Signed: 02/23/2024 16:28 Receipt Acknowledged By: 02/25/2024 13:04 /jus/ MIAH BUTTS MD STAFF PHYSICIAN --- Original Document --- 02/23/24 DIABETES EDU FOLLOW UP: FOLLOW UP DIABETES EDUCATION VISIT Demographics: Patient Name: TONY LOGAN JR Age: 83 Sex: MALE Race: WHITE MARITAL STATUS - Introduction: Ray identified with 2 identifiers: [X] Full Name [X] Date of [ ] Address [ ] IN ID Card PATIENT PHONE - PHONE NUMBER [CELLULAR] - Is patient phone number correct, if not, enter below: 's phone number: TONY LOGAN JR [address] [facility] [address] [place], [place], [address] MOST RECENT LABS: HEMOGLOBIN A1C TREND Collection DT Spec HGBA1c 11/05/2023 07:31 BLOOD 8.1 H 08/06/2023 07:31 BLOOD 7.7 H 05/05/2023 07:48 BLOOD 7.2 H 01/03/2023 09:54 BLOOD 7.8 H 10/01/2022 09:40 BLOOD 7.8 H CHEM 7 TREND LAB CUMULATIVE SELECTED Collection DT Spec GLUCOSE BUN CREATIN Sodium K+/Pot CL CO2 01/29/2024 09:49 SERUM 1.86 H 11/11/2023 09:05 SERUM 412 H 39 H 1.99 H 132 L 4.6 101 19 L 11/05/2023 07:31 SERUM 198 H 49 H 2.33 H 135 4.5 102 20 08/06/2023 07:31 SERUM 230 H 31 H 1.67 H 136 4.2 103 21 05/05/2023 07:48 SERUM 148 H 17 1.45 H 140 4.4 110 21 LAB CUMULATIVE SELECTED 2 No selection items [...] 114 31 L 3.7 60 113 CREATININE-EGFR 01/29/24 09:49 1.86 H 11/11/23 09:05 1.99 H 11/05/23 07:31 2.33 H EGFR - NONE FOUND WEIGHT: 180 lb [81.65 kg] (01/06/2024 09:24) HEIGHT: 66 in [167.6 cm] (11/13/2023 09:26) BMI: 29.1 REASON FOR EDUCATION VISIT TODAY: Diagnosed with Type 2 diabetes since 1981. He was in his 30s when diagnosed. Had an aortic valve replacement via cardiac cath in November of 2024 Had surgery in May to implant pacemaker. [...] 97.6 F [36.4 C] (01/06/2024 09:24) Oxygen saturation: Pulse Oximetry VITAL SIGNS SELECTED Measurement DT POx (L/MIN)(%) 01/06/2024 09:24 98 Pain: 0 (01/06/2024 09:24) WEIGHT: 180 lb [81.65 kg] (01/06/2024 09:24) HEIGHT: 66 in [167.6 cm] (11/13/2023 09:26) BMI: 29.1 ALLERGIES: Patient has answered NKA Living arrangements: X Alone- has a cat Spouse Family Friend Support system Diabetes health history: Diagnosed since 1981 Type of diabetes: Type 1 X Type 2 PRE diabetes Mother had diabetes- of liver disease Substance use: X Cigarettes- stopped 30 years ago, smoked since 14 years old. X Alcohol- quit in 1981 (came to the [place] program to quit) Marijuana- no Other- no None DIABETES SELF MANAGEMENT DIET: In the last 12 months, were there times when food did not last and there was no money to buy more? No, [facility] in [place] offers a bag of groceries for Veterans. He does get help from them. Breakfast: eggs and oatmeal or other cereals (special K); coffee black Lunch: make his own soup with crackers, water Dinner: tea and pasta or beans or chicken, ham, frozen vegetables Snacks: chips, peanuts, not snacking too much Beverages consumed: Goal weight desired: lbs Has gained a couple of pounds. SLEEP Typical sleep pattern: Not good, does have sleep apnea and does not use the machine. He has trouble sleeping with it. It keeps him up. He was given Lorazepam to help him sleep. Bedtime: 9 pm. Waketime: 4-5 am. Naps: once and a while Comments: PHYSICAL ACTIVITY Type: Currently doing Cardiac Rehab- Third week. Working on 3 machines (treadmill, new step, bicycle) Having trouble with treadmill. He finds he gets tired after 10 minutes. Level: Frequency: Duration: Limitations: Walks for 1/2 mile and then he is done (because he is tired) DIABETES MEDICATIONS Glargine 11 units in the AM and 11 units in the PM. Aspart 9 units for eggs, 13 units for cereal AM, 6 units noon, 9 units dinner Empagliflozin (started this week): 25 mg once a week (no UTIs, no rash) STORAGE OF INSULIN/OTHER INJECTABLES: INJECTIONS SITES: SITES VIEWED: ANY EVIDENCE OF LIPOHYPERTROPHY History of hypoglycemia: Symptoms: Had a few 1-2x/month. Feels sweating, shaking, Frequency: once a week Typical treatment: glucose tablets 3-4 Medic ID: Has one from [place] Glucagon kit: No MONITORING Currently using the Devon 3 sensor and ornamental plasterer helper and able to download it during appointment. No trouble with sensor falling off. Download from today: Name: Tony Logan Date of : 1940 Report Period: 01/27/2024 - 02/23/2024 (28 days) Generated: 02/23/2024 % Time CGM Active: 99% Glucose Statistics and Targets Average Glucose: 219 mg/dL Glucose Management Indicator (GMI): 8.5% Glucose Variability (%CV): 26.4% Target Range: 70 - 180 mg/dL Time in Ranges Very High: >250 mg/dL --- 26% High: 181 - 250 mg/dL --- 47% Target Range: 70 - 180 mg/dL --- 27% Low: 54 - 69 mg/dL --- 0% Very Low: <54 mg/dL --- 0% The main trend noted are all glucose are above 180 mg/dl most of the time. He is 47% above 180 mg/dl and 27% in target range. No pattern of hypoglycemia. Download from December of 2023: Name: Tony Logan Date of : 1940 [...] or hospitalizations in the past year? Comments: None DIABETES DISTRESS On a scale of 1-6 where 1 is no problem and 6 is a very serious problem, rate the following: Feeling overwhelmed by the demands of living with diabetes: 2 Feeling that I am failing my diabetes routine: 3, forgetting to take insulin before meals. DIABETIC-RELATED CHRONIC COMPLICATIONS EYES: Retinopathy- no Maculopathy- no Glaucoma- no X Cataracts- had surgery in 2009. Had 5 facial surgeries next to the eye. The right eye (the vision is funny, it gets tired easily). Blindness- no Blurring- no Comments: Has an appt in February. KIDNEYS: Difficulty emptying bladder- no Urinary tract infection- no X Proteinuria- mild Nephropathy- no Denied concerns Comments: Has low GFR and mildly higher microalbumin Not seeing a specialist for his kidneys. FEET/LEGS/SKIN: Dry skin Previous/current ulcer- no skin break down Hard/thick toenails- no Palpable pulses Pain on walking- no, but does get tired quickly Charcot joint Pain at rest- does have restless feelings in feet and legs Gangrene/amputation- no Tingling/Numbness: Hands X Feet- left foot (veins replaced, had to clean the arteries, placed a bovine vein) Has swelling in his left leg all the time. Denied concerns Comments: Last seen by director business management this month. CARDIOVASCULAR/CEREBROVASCU LAR Pain/palpitations- no, has a heart murmur Angina pectoris Myocardial infarction- No Hypertension- being treated Hyperlipidemia- being treated TIA- no Stroke (CVA)- no Denied concerns Comments: Aortic valve replacement and pacemaker installed. 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 Prior diabetes education: SMART GOALS HEALTH GOAL #1: In order to meet this goal, I will: Continue using the Devon 3 sensor to monitor blood sugars. HEALTH GOAL #2: In order to meet this goal, I will: Clinical or Quality of Life outcome baseline: ASSESSMENT: Kindly referred by Dr. Butts. Aimee came in December to switch to the Devon 3 sensor and he reports that it alerts more often than the Devon 2 with a lost signal alert. He is figuring out what works best for him so that this signal does not go off as much. Last A1C was 8.1% in October and due now for an updated A1C. Encouraged he get this done soon. Ordered A1C for him and will reach out to Dr. Butts to order additional labs (if needed). Aimee is now taking Empagliflozin (even though it was discontinued by [place]) because Sap Director wants him taking it. He did not receive a new meter from the [place] or the company, therefore, we called [employer] today during this appointment and requested they send a meter. The [place] is only giving out 1 meter for the lifetime of the . Recent health history includes: pacemaker implanted in May of 2023 and aortic valve replacement in Sally of 2024. We adjusted his insulin as follows because sensor download reveals he is above 180 mg/dl most of the day. - Increase Novolog insulin: 9 units before eggs, 15 units before cereal AM, 7 units before noon, and 10 units before dinner will return for Diabetes Education in 1 month and does not have follow up with Dr. Butts, however, likely needs a follow up with Endocrine or Pharmacy. Learning limitations/special education needs: None Barriers to learning: Visual Auditory Literacy Language X None Cultural influences: None Health beliefs/attitudes/feelings about diabetes: None Readiness to learn: Yes Will significant other participate in program? No TEACHING MATERIALS GIVEN: Devon 3 sensors and ornamental plasterer helper. EDUCATION: -Reviewed sensor download in detail. -Reviewed pattern management and insulin adjustment. INSTRUCTIONS: -Continue using the Devon 3 sensor to monitor blood sugars. -Please keep the Devon 2 ornamental plasterer helper incase there is a shortage of Devon 3 sensors. -Adjust insulin as follows: - Increase Novolog 9 units for eggs, 15 units for cereal AM, 7 units before noon, and 10 units before dinner -Have meter and test strips in the house incase you need to use it as a back up plan. -Please call with any questions or concerns. -Follow up with Diabetes Education in 1 month. Patient/Family Verbalized Understanding FUTURE APPOINTMENTS: 03/03/2024 14:00 NHM/OPTOMETRY/SHELLEY/ 03/30/2024 15:00 CWM/NO/DIABETES EDU 1 04/07/2024 08:00 CWM/NO/PODIATRY/NAIL 07/08/2024 09:00 CWM/NO/PACT 7 DM type is : Type 2 diabetes Length of Visit: 60 minutes /jus/ DOUGLAS ROSAS RN,BSN, [facility] DIABETES [address] JUSTICE, RN Signed: 02/23/2024 16:23 Receipt Acknowledged By: 02/24/2024 08:01 /jus/ MIAH BUTTS MD STAFF PHYSICIAN 02/24/2024 07:13 /jus/ Ajay Russell DNP, COUNTY OR CITY AUDITOR-, CNL Primary Care Nurse Practitioner 02/23/2024 ADDENDUM STATUS: COMPLETED Pt currently followed in [facility], with no scheduled appts. /tyree BUTTS MD STAFF PHYSICIAN Signed: 02/23/2024 18:57 Receipt Acknowledged By: 02/24/2024 12:50 /jus/ VICTORINA TIRADO PHARMD,[facility] CLINICAL PHARMACY PRACTITIONER 02/23/2024 ADDENDUM STATUS: COMPLETED AMSA, pt is followed by [facility], but, in view of elevated bg, I would like to make a follow up appt with him as well, and ask for labs. Thank you. Please see RTC. /tyree BUTTS MD STAFF PHYSICIAN Signed: 02/23/2024 19:01 Receipt Acknowledged By: 02/24/2024 11:44 /jus/ TOM RIZZO 02/24/2024 ADDENDUM STATUS: COMPLETED AMSA called and left a voicemail for the to schedule the appointment. Mailed appointment letter. /tyree RIZZO Signed: 02/24/2024 11:53 02/24/2024 ADDENDUM STATUS: COMPLETED Please schedule intial visit with pt 60 mins FTF, VVC or telephone - pt referred by Dr. Butts was initially scheduled and apt was cancelled but not rescheduled? Pt is seeing and Dm education in March- possibly schedule for Apr or May, thank you /jus/ VICTORINA TIRADO PHARMD,[facility] CLINICAL PHARMACY PRACTITIONER Signed: 02/24/2024 12:58 Receipt Acknowledged By: 02/24/2024 14:04 /jus/ ANGELES JUNIRO Clinical Wrestling Coach 02/24/2024 ADDENDUM STATUS: COMPLETED Patient is scheduled for 05/17 at 2:00 for an in clinic visit. Last appt was cancelled due to Devon 3 being unavailable. Patient states he needs his Devon renewed - he is on his last sensor /jus/ ANGELES JUNIOR Clinical Wrestling Coach Signed: 02/24/2024 14:10 Receipt Acknowledged By: 02/24/2024 15:46 /es/ VICTORINA TIRADO, PHARMD,[facility] CLINICAL PHARMACY PRACTITIONER DOUGLAS ROSAS IN [facility] [place] [facility] Feb 23, 2024 03:03 PM DIABETOLOGY EDUCATION NOTE: LOCAL TITLE: DIABETES EDU FOLLOW UP STANDARD TITLE: DIABETOLOGY EDUCATION NOTE DATE OF NOTE: FEB 23, 2024@15:03 ENTRY DATE: FEB 23, 2024@15:03:36 AUTHOR: DOUGLAS ROSAS EXP COSIGNER: URGENCY: STATUS: COMPLETED DIABETES EDU FOLLOW UP Has ADDENDA FOLLOW UP DIABETES EDUCATION VISIT Demographics: Patient Name: TONY LOGAN JR Age: 83 Sex: MALE Race: WHITE MARITAL STATUS - Introduction: identified with 2 identifiers: [X] Full Name [X] Date of [ ] Address [ ] IN ID Card PATIENT PHONE - PHONE NUMBER [CELLULAR] - Is patient phone number correct, if not, enter below: Ray's phone number: TONY LOGAN JR [address] [facility] [address] [place] [address], [address] MOST RECENT LABS: HEMOGLOBIN A1C TREND Collection DT Spec HGBA1c 11/05/2023 07:31 BLOOD 8.1 H 08/06/2023 07:31 BLOOD 7.7 H 05/05/2023 07:48 BLOOD 7.2 H 01/03/2023 09:54 BLOOD 7.8 H 10/01/2022 09:40 BLOOD 7.8 H CHEM 7 TREND LAB CUMULATIVE SELECTED Collection DT Spec GLUCOSE BUN CREATIN Sodium K+/Pot CL CO2 01/29/2024 09:49 SERUM 1.86 H 11/11/2023 09:05 SERUM 412 H 39 H 1.99 H 132 L 4.6 101 19 L 11/05/2023 07:31 SERUM 198 H 49 H 2.33 H 135 4.5 102 20 08/06/2023 07:31 SERUM 230 H 31 H 1.67 H 136 4.2 103 21 05/05/2023 07:48 SERUM 148 H 17 1.45 H 140 4.4 110 21 LAB CUMULATIVE SELECTED 2 No selection items [...] 114 31 L 3.7 60 113 CREATININE-EGFR 01/29/24 09:49 1.86 H 11/11/23 09:05 1.99 H 11/05/23 07:31 2.33 H EGFR - NONE FOUND WEIGHT: 180 lb [81.65 kg] (01/06/2024 09:24) HEIGHT: 66 in [167.6 cm] (11/13/2023 09:26) BMI: 29.1 REASON FOR EDUCATION VISIT TODAY: Diagnosed with Type 2 diabetes since 1981. He was in his 30s when diagnosed. Had an aortic valve replacement via cardiac cath in November of 2024 Had surgery in May to implant pacemaker. [...] 97.6 F [36.4 C] (01/06/2024 09:24) Oxygen saturation: Pulse Oximetry VITAL SIGNS SELECTED Measurement DT POx (L/MIN)(%) 01/06/2024 09:24 98 Pain: 0 (01/06/2024 09:24) WEIGHT: 180 lb [81.65 kg] (01/06/2024 09:24) HEIGHT: 66 in [167.6 cm] (11/13/2023 09:26) BMI: 29.1 ALLERGIES: Patient has answered NKA Living arrangements: X Alone- has a cat Spouse Family Friend Support system Diabetes health history: Diagnosed since 1981 Type of diabetes: Type 1 X Type 2 PRE diabetes Mother had diabetes- of liver disease Substance use: X Cigarettes- stopped 30 years ago, smoked since 14 years old. X Alcohol- quit in 1981 (came to the [place] program to quit) Marijuana- no Other- no None DIABETES SELF MANAGEMENT DIET: In the last 12 months, were there times when food did not last and there was no money to buy more? No, [employer] [place] in [place] offers a bag of groceries for Veterans. He does get help from them. Breakfast: eggs and oatmeal or other cereals (special K); coffee black Lunch: make his own soup with crackers, water Dinner: tea and pasta or beans or chicken, ham, frozen vegetables Snacks: chips, peanuts, not snacking too much Beverages consumed: Goal weight desired: lbs Has gained a couple of pounds. SLEEP Typical sleep pattern: Not good, does have sleep apnea and does not use the machine. He has trouble sleeping with it. It keeps him up. He was given Lorazepam to help him sleep. Bedtime: 9 pm. Waketime: 4-5 am. Naps: once and a while Comments: PHYSICAL ACTIVITY Type: Currently doing Cardiac Rehab- Third week. Working on 3 machines (treadmill, new step, bicycle) Having trouble with treadmill. He finds he gets tired after 10 minutes. Level: Frequency: Duration: Limitations: Walks for 1/2 mile and then he is done (because he is tired) DIABETES MEDICATIONS Glargine 11 units in the AM and 11 units in the PM. Aspart 9 units for eggs, 13 units for cereal AM, 6 units noon, 9 units dinner Empagliflozin (started this week): 25 mg once a week (no UTIs, no rash) STORAGE OF INSULIN/OTHER INJECTABLES: INJECTIONS SITES: SITES VIEWED: ANY EVIDENCE OF LIPOHYPERTROPHY History of hypoglycemia: Symptoms: Had a few 1-2x/month. Feels sweating, shaking, Frequency: once a week Typical treatment: glucose tablets 3-4 Medic ID: Has one from [place] Glucagon kit: No MONITORING Currently using the [employer] 3 sensor and ornamental plasterer helper and able to download it during appointment. No trouble with sensor falling off. Download from today: Name: Tony Logan Date of : 1940 Report Period: 01/27/2024 - 02/23/2024 (28 days) Generated: 02/23/2024 % Time CGM Active: 99% Glucose Statistics and Targets Average Glucose: 219 mg/dL Glucose Management Indicator (GMI): 8.5% Glucose Variability (%CV): 26.4% Target Range: 70 - 180 mg/dL Time in Ranges Very High: >250 mg/dL --- 26% High: 181 - 250 mg/dL --- 47% Target Range: 70 - 180 mg/dL --- 27% Low: 54 - 69 mg/dL --- 0% Very Low: <54 mg/dL --- 0% The main trend noted are all glucose are above 180 mg/dl most of the time. He is 47% above 180 mg/dl and 27% in target range. No pattern of hypoglycemia. Download from December of 2023: Name: Tony Logan Date of : 1940 [...] or hospitalizations in the past year? Comments: None DIABETES DISTRESS On a scale of 1-6 where 1 is no problem and 6 is a very serious problem, rate the following: Feeling overwhelmed by the demands of living with diabetes: 2 Feeling that I am failing my diabetes routine: 3, forgetting to take insulin before meals. DIABETIC-RELATED CHRONIC COMPLICATIONS EYES: Retinopathy- no Maculopathy- no Glaucoma- no X Cataracts- had surgery in 2009. Had 5 facial surgeries next to the eye. The right eye (the vision is funny, it gets tired easily). Blindness- no Blurring- no Comments: Has an appt in February. KIDNEYS: Difficulty emptying bladder- no Urinary tract infection- no X Proteinuria- mild Nephropathy- no Denied concerns Comments: Has low GFR and mildly higher microalbumin Not seeing a specialist for his kidneys. FEET/LEGS/SKIN: Dry skin Previous/current ulcer- no skin break down Hard/thick toenails- no Palpable pulses Pain on walking- no, but does get tired quickly Charcot joint Pain at rest- does have restless feelings in feet and legs Gangrene/amputation- no Tingling/Numbness: Hands X Feet- left foot (veins replaced, had to clean the arteries, placed a bovine vein) Has swelling in his left leg all the time. Denied concerns Comments: Last seen by director business management this month. CARDIOVASCULAR/CEREBROVASCU LAR Pain/palpitations- no, has a heart murmur Angina pectoris Myocardial infarction- No Hypertension- being treated Hyperlipidemia- being treated TIA- no Stroke (CVA)- no Denied concerns Comments: Aortic valve replacement and pacemaker installed. 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 Prior diabetes education: SMART GOALS HEALTH GOAL #1: In order to meet this goal, I will: Continue using the Devon 3 sensor to monitor blood sugars. HEALTH GOAL #2: In order to meet this goal, I will: Clinical or Quality of Life outcome baseline: ASSESSMENT: Kindly referred by Dr. Butts. Aimee came in December to switch to the Devon 3 sensor and he reports that it alerts more often than the Devon 2 with a lost signal alert. He is figuring out what works best for him so that this signal does not go off as much. Last A1C was 8.1% in October and due now for an updated A1C. Encouraged he get this done soon. Ordered A1C for him and will reach out to Dr. Butts to order additional labs (if needed). Aimee is now taking Empagliflozin (even though it was discontinued by [place]) because Sap Director wants him taking it. He did not receive a new meter from the [place] or the company, therefore, we called [employer] today during this appointment and requested they send a meter. The [place] is only giving out 1 meter for the lifetime of the Ray. Recent health history includes: pacemaker implanted in May of 2023 and aortic valve replacement in November of 2023. We adjusted his insulin as follows because sensor download reveals he is above 180 mg/dl most of the day. - Increase Novolog insulin: 9 units before eggs, 15 units before cereal AM, 7 units before noon, and 10 units before dinner Ray will return for Diabetes Education in 1 month and does not have follow up with Dr. Butts, however, likely needs a follow up with Endocrine or Pharmacy. Learning limitations/special education needs: None Barriers to learning: Visual Auditory Literacy Language X None Cultural influences: None Health beliefs/attitudes/feelings about diabetes: None Readiness to learn: Yes Will significant other participate in program? No TEACHING MATERIALS GIVEN: Devon 3 sensors and ornamental plasterer helper. EDUCATION: -Reviewed sensor download in detail. -Reviewed pattern management and insulin adjustment. INSTRUCTIONS: -Continue using the Devon 3 sensor to monitor blood sugars. -Please keep the Devon 2 ornamental plasterer helper incase there is a shortage of Devon 3 sensors. -Adjust insulin as follows: - Increase Novolog 9 units for eggs, 15 units for cereal AM, 7 units before noon, and 10 units before dinner -Have meter and test strips in the house incase you need to use it as a back up plan. -Please call with any questions or concerns. -Follow up with Diabetes Education in 1 month. Patient/Family Verbalized Understanding FUTURE APPOINTMENTS: 03/03/2024 14:00 NHM/OPTOMETRY/SHELLEY/ 03/30/2024 15:00 CWM/NO/DIABETES EDU 1 04/07/2024 08:00 CWM/NO/PODIATRY/NAIL 07/08/2024 09:00 CWM/NO/PACT 7 DM type is : Type 2 diabetes Length of Visit: 60 minutes /jus/ DOUGLAS ROSAS RN,BSN, [facility] DIABETES SUPERIOR [address] JUSTICE, RN Signed: 02/23/2024 16:23 Receipt Acknowledged By: 02/24/2024 08:01 /jus/ MIAH BUTTS MD STAFF PHYSICIAN 02/24/2024 07:13 /jus/ Ajay Russell DNP, [place] AUDITOR-BC, CNL Primary Care Nurse Practitioner 02/23/2024 ADDENDUM STATUS: COMPLETED Dr. Butts- was seen today and his sensor download reveals he is quite elevated most of the day. He is due for an updated A1C and Diabetes Education did not see labs ordered for him. Please order additional labs that you want checked. He may also need a follow up with Endocrine (as there is not one in the future). Sent you a RX to sign off on for sensors (he had no refills) and he is worried about getting them in time for his trip to [place]. He is leaving on the . Diabetes Education is happy to call him with an update after you respond to this message. Thank you! /tyree ROSAS RN,BSN, [facility] DIABETES [address] JUSTICE, RN Signed: 02/23/2024 16:28 Receipt Acknowledged By: * AWAITING SIGNATURE * MIAH BUTTS 02/23/2024 ADDENDUM STATUS: COMPLETED Pt currently followed in [facility], with no scheduled appts. /tyree BUTTS MD STAFF PHYSICIAN Signed: 02/23/2024 18:57 Receipt Acknowledged By: 02/24/2024 12:50 /jus/ VICTORINA TIRADO, PHARMD,[facility] CLINICAL PHARMACY PRACTITIONER 02/23/2024 ADDENDUM STATUS: COMPLETED AMSJonathan, pt is followed by [facility], but, in view of elevated bg, I would like to make a follow up appt with him as well, and ask for labs. Thank you. Please see RTC. /tyree BUTTS MD STAFF PHYSICIAN Signed: 02/23/2024 19:01 Receipt Acknowledged By: 02/24/2024 11:44 /jus/ TOM RIZZO 02/24/2024 ADDENDUM STATUS: COMPLETED AMSA called and left a voicemail for the to schedule the appointment. Mailed appointment letter. /jus/ TOM BHUPENDRA RIZZO Signed: 02/24/2024 11:53 02/24/2024 ADDENDUM STATUS: COMPLETED Please schedule intial visit with pt 60 mins FTF, VVC or telephone - pt referred by Dr. Butts was initially scheduled and apt was cancelled but not rescheduled? Pt is seeing and Dm education in March- possibly schedule for Apr or May, thank you /jus/ VICTORINA TIRADO, PHARMD,BCPS CLINICAL PHARMACY PRACTITIONER Signed: 02/24/2024 12:58 Receipt Acknowledged By: 02/24/2024 14:04 /jus/ ANGELES JUNIOR Clinical Wrestling Coach 02/24/2024 ADDENDUM STATUS: COMPLETED Patient is scheduled for 05/17 at 2:00 for an in clinic visit. Last appt was cancelled due to Devon 3 being unavailable. Patient states he needs his Devon renewed - he is on his last sensor /jus/ ANGELES JUNIOR Clinical Wrestling Coach Signed: 02/24/2024 14:10 Receipt Acknowledged By: * AWAITING SIGNATURE * VICTORINA TIRADO [facility]
--- OUTSIDE RECORDS SUMMARY | 2024-03-26 16:28 | XMS_ITS | Encounter Summary ---
Author Name [place] Address [address] [place] [id number] Care Team Providers Care Etl Manager Name Role Phone AJAY APODACA Primary [...] PART A Nov 22, 2006 PART A [id number] TONY CASTELLON PATIENT MEDICARE (WNR) MEDICARE (M) PART B Nov 22, 2006 PART B [id number] [id number] TONY CASTELLON PATIENT MEDICARE (WNR) MEDICARE (M) PART A Nov 22, 2006 PART A [id number] [phone] [id number] TONY CASTELLON PATIENT MEDICARE (WNR) MEDICARE (M) PART B Nov 22, 2006 PART B [id number] TONY CASTELLON PATIENT FOR LIFE TFL* Apr 20, 2014 [id number] SUKHJINDER CASTELLON JR PATIENT Selected Encounter This section includes the information on record at [place] for the Encounter. Date/Time Encounter Type Encounter Description Reason Provider Source Feb 12, 2024 08:48 AM Outpatient Encounter CLINICAL PHARMACY ICD-10-CM Z04.89 Encounter for examination and observation for oth reasons ZHANG ZAMUDIO E Encounter Template Text not used by [place] Assessments - Encounter Diagnoses This section includes the primary and secondary diagnoses documented for the Encounter. Date/Time Primary/Secondary Diagnosis Diagnosis Name Provider Source Feb 12, 2024 09:05 AM PRIMARY Encounter for examination and observation for oth reasons [facility] Plan of Treatment: Future Appointments (+ 6 months) and Future Tests (+/- 45 days) The Plan of Treatment section includes future care activities for the patient from all [place] [facility]. This section includes future appointments and future orders which are active, pending or scheduled. Future Appointments This section includes appointments that were scheduled to occur 6 months from the date of the Encounter, up to a maximum of 20 appointments. The data comes from all [facility] [address]. Appointment Date/Time Appointment Type Appointme nt Facility Name Feb 23, 2024 03:00 PM AM[place]UL[place]ORY [place]INE [place] [facility] [place] [facility] Mar 03, 2024 02:00 PM [place] [facility] [place] [facility] Mar 03, 2024 02:30 PM AM[place]UL[place]ORY MEDICINE [place] [facility] [place] [facility] Mar 30, 2024 03:00 PM AM[place]UL[place]ORY MEDICINE [place] [facility] [place] [facility] Mar 31, 2024 02:30 PM AM[place]ORY [place] [facility] [place] [facility] Apr 07, 2024 08:00 AM AM[place]UL[place]ORY - [place] [facility] [place] [facility] May 17, 2024 02:00 PM AM[place]UL[place]ORY [place] [facility] [place] [facility] Jul 08, 2024 09:00 AM AMBULATORY - MEDICINE [facility] [place] [facility] Active, Pending, and Scheduled Orders This section includes a listing of several types of active, pending, and scheduled orders, including clinic medications orders, diagnostic test orders, procedure orders and consult orders; where the start date of the order is 45 days before the date of the Encounter or 45 days after the date of theEncounter. The data comes from all [facility] [address]. Test Date/Time Test Type Test Details Facility Name Mar 26, 2024 12:00 AM Laboratory - Chemistry Order HEMOGLOBIN A1C PANEL BLOOD (LAV-BLOOD) [facility] Mar 26, 2024 12:00 AM Laboratory - Chemistry Order MICROALBUMIN CREATININE RATIO PANEL URINE (RANDOM) [facility] Mar 26, 2024 12:00 AM Laboratory - Chemistry Order LIPID PANEL FASTING BLOOD (SST-SERUM) [facility] Mar 26, 2024 12:00 AM Laboratory - Chemistry Order BASIC METABOLIC PANEL (non-fasting) BLOOD (SST-SERUM) [facility] Lab Results: +/- 30 days [...] Range Comment Jan 29, 2024 09:49 AM [facility] CREATININE (eGFR 2020) Specimen Type: SERUM No comment entered. Ordering Provider: LAURA APODACA Report Released Date/Time: Jan 27, 2024 07:33 AM Reporting Lab: [address] [address] Performing Lab: [address] [address] CREATININE, Serum 1.86 mg/dL H 0.50-1.40 eGFR(CKD-EPI 2020) 36 mL/min L >60 Jan 29, 2024 09:49 AM [facility] PT & INR (COUMADIN) Specimen Type: PLASMA No comment entered. Ordering Provider: LAURA APODACA Report Released Date/Time: Jan 27, 2024 07:33 AM Reporting Lab: [address] [address] Performing Lab: [address] [address] INR 1.3 PROTIME 14.6 s H 10.0-13.1 Jan 29, 2024 09:49 AM [facility] LIVER FUNCTION Specimen Type: SERUM No comment entered. Ordering Provider: LAURA APODACA Report Released Date/Time: Jan 27, 2024 07:33 AM Reporting Lab: [facility] [address] [facility] [address] Performing Lab: [address] [address] PROTEIN,TOTAL 7.4 g/dL 6.0-8.3 ALBUMIN 3.2 g/dL L 3.5-5.0 ALKALINE PHOSPHATASE 66 U/L 40-150 AST 30 U/L 5-34 ALT 31 U/L BILIRUBIN, TOTAL 0.4 mg/dL 0.2-1.2 Jan 29, 2024 09:49 AM [facility] CBC Specimen Type: BLOOD No comment entered. Ordering Provider: LAURA APODACA Report Released Date/Time: Jan 27, 2024 07:33 AM Reporting Lab: [facility] [address] [facility] [address] Performing Lab: [address] [address] WBC 6.95 10*3/uL 4.50-11.00 RBC 3.19 10*6/uL L 4.23-5.66 HGB 9.9 g/dL L 12.8-17 HCT 31.2 L 39.2-50.4 MCV 97.8 fL 82-99 MCHC 31.7 g/dL 30.8-35.1 PLT 178 10*3/uL 140-360 RDW-CV 14.0 12.0-16.0 MCH 31.0 pg 26.2-32.6 Advance Directives: All historical and current Section [...] Mar 23, 2014 ADVANCE DIRECTIVE ROSALINDA SHELBY [facility] [place] [facility] Encounter Notes: All associated encounter notes This section contains the clinical notes associated to the Encounter. Date/Time Encounter Note(s) Provider Source Feb 12, 2024 08:48 AM PHARMACY MEDICATIO N MGT NOTE: LOCAL TITLE: PHARMACY ANTICOAGULATION NOTE STANDARD TITLE: PHARMACY MEDICATION MGT NOTE DATE OF NOTE: FEB 12, 2024@08:48 ENTRY DATE: FEB 12, 2024@08:48:43 AUTHOR: SANGEETA ZAMUDIOIGNER: URGENCY: STATUS: COMPLETED ANTICOAGULATION DOAC MONITORING NOTE SUBJECTIVE: Patient identified through the DOAC population Management Tool based on the following criteria: [ X ] Dosing Issue [ ] Critical Drug Interaction [ ] Cancer Treatment [ ] Active NSAID [ ] Labs Overdue [ ] Prosthetic Valve Replacement [ X ] Notable Lab Value [ ] Overdue for Refill [ ] Other: Comments: Flag 1: In absence of VTE, apixaban dose should be reduced to 2.5 mg BID for patients meeting two of the following three criteria: serum creatinine >=1.5, either age >=80, or weight <=60.0 kg Flag 2: Hgb below 10 --------- OBJECTIVE: Indication for anticoagulation: [ X ] Atrial fibrilation [ ] Atrial flutter [ ] VTE (DVT or PE) [ ] Post-op DVT prophylaxis [ ] Other: Most recent lab values include the following: BLOOD Jan 28 August 14 August 05 Reference 2023 2023 2023 09:49 08:59 07:31 Units Ranges WBC 6.95 5.70 7.50 K/cmm 4.5 - 11 RBC 3.19 L 3.35 L 3.17 L M/cmm 4.23 - 5.66 HGB 9.9 L 10.3 L 9.8 L g/dL 12.8 - 17 HCT 31.2 L 32.9 L 31.1 L % 39.2 - 50.4 MCV 97.8 98.2 98.1 fl 82 - 99 MCH 31.0 30.7 30.9 pg 26.2 - 32.6 MCHC 31.7 31.3 31.5 g/dL 30.8 - 35.1 RDW 14.0 14.2 14.2 % 12 - 16 PLT 178 303 181 K/cmm 140 - 360 Liver Function Tests Collection DT Spec AST ALT ALK BEE ALBUMIN T BILI T. PROT 01/29/2024 09:49 SERUM 30 31 66 3.2 L 0.4 7.4 HEIGHT: 66 in [167.6 cm] (11/13/2023 09:26) WEIGHT: 180 lb [81.65 kg] (01/06/2024 09:24) BMI: BMI: 29.1 CREATININE-EGFR 01/29/24 09:49 1.86 H 11/11/23 09:05 1.99 H 11/05/23 07:31 2.33 H CRCL IBW: CrCl(est): 27.6 mL/min (Creat:1.86 01/29/24) CRCL ACT: 35.43 mL/min CRCL ADJ: 27.6 mL/min (01/29/24) ASSESSMENT: Chart reviewed - pt was on apixaban 2.5mg Q12 hours previously and then dose increased to 5mg Q12 hours. Dose reduction again recommended given increase in SCr >1.5mg/dL Action required? [ ] Yes [ X ] No Comments: Dose adjustment made 02/11/24. Pt will now be on appropriate dose for age/renal function/indication for use. Hgb again <10g/dL - Hgb has been fluctuating. PCP/NonVA Oncology are aware of fluctuations. Per previous [facility] notes: PACT team forwarded labs to nonVA Oncology. FIT test ordered and was negative. Anemia is stable. PLAN: [ X ] No action required, dismiss flag [ ] Will intervene: [ ] Patient education via phone/letter [ ] Schedule phone/[id number] follow up [ ] Lab ordered [ ] Discontinue interacting medication [ ] Discontinue DOAC [ ] Change to alternative DOAC [ ] Change DOAC dose [ ] Notify PCP [ ] Consult cardiology/hematology [ ] Other: Time spent: 9 mins /jus/ Sangeeta Zamudio PharmD, [facility] Clinical Phone Banker Signed: 02/12/2024 09:05 SANGEETA ZAMUDIO [facility]
--- OUTSIDE RECORDS SUMMARY | 2024-03-26 16:29 | XMS_ITS | Encounter Summary ---
Author Name [place] Address [address] [place] [id number] Care Team Providers Care Psychologists Name Role Phone AJAY APODACA Primary Care [...] PART A Nov 22, 2006 PART A [id number] TONY CASTELLON PATIENT MEDICARE (WNR) MEDICARE (M) PART B Nov 22, 2006 PART B [id number] TONY CASTELLON PATIENT MEDICARE (WNR) MEDICARE (M) PART B Nov 22, 2006 PART B [id number] TONY CASTELLON PATIENT MEDICARE (WNR) MEDICARE (M) PART A Nov 22, 2006 PART A [id number] TONY CASTELLON PATIENT FOR LIFE TFL* Apr 20, 2014 [id number] SUKHJINDER CASTELLON JR PATIENT Selected Encounter This section includes the information on record at [place] for the Encounter. Date/Time Encounter Type Encounter Description Reason Provider Source Mar 03, 2024 02:30 PM CMPTR OPHTH IMG OPTIC NERVE OPTOMETRY ICD-10-CM H40.013 Open angle with borderline findings, low risk, bilateral JUAN DIEGO SHELLEY IHJose Encounter Template Text not used by [place] Assessments - Encounter Diagnoses This section includes the primary and secondary diagnoses documented for the Encounter. Date/Time Primary/Secondary Diagnosis Diagnosis Name Provider Source Mar 03, 2024 03:57 PM PRIMARY Open angle with borderline findings, low risk, bilateral JUAN DIEGO SHELLEY [facility] Plan of Treatment: Future Appointments (+ 6 months) and Future Tests (+/- 45 days) The Plan of Treatment section includes future care activities for the patient [facility] all [place] [facility]. This section includes future appointments and future orders which are active, pending or scheduled. Future Appointments This section includes appointments that were scheduled to occur 6 months from the date of the Encounter, up to a maximum of 20 appointments. The data comes from all [facility]. Appointment Date/Time Appointment Type Appointme nt Facility Name Mar 30, 2024 03:00 PM AMBULATORY - MEDICINE [facility] Mar 31, 2024 02:30 PM AMBULATORY - MEDICINE [facility] [place] [facility] Apr 07, 2024 08:00 AM AMBULATORY - MEDICINE [facility] [place] [facility] May 17, 2024 02:00 PM AMBULATORY - MEDICINE [facility] [place] [facility] Jul 08, 2024 09:00 AM [facility] Active, Pending, and Scheduled Orders This section includes a listing of several types of active, pending, and scheduled orders, including clinic medications orders, diagnostic test orders, procedure orders and consult orders; where the start date of the order is 45 days before the date of the Encounter or 45 days after the date of theEncounter. The data comes from all [facility]. Test Date/Time Test Type Test Details Facility Name Mar 26, 2024 12:00 AM Laboratory - Chemistry Order HEMOGLOBIN A1C PANEL BLOOD ([facility]BLO[facility]) [facility] Mar 26, 2024 12:00 AM Laboratory - Chemistry Order MICROALBUMIN CREATININE RATIO PANEL URINE (RANDOM) [facility] Mar 26, 2024 12:00 AM Laboratory - Chemistry Order BASIC METABOLIC PANEL (non-fasting) BLOOD (SST-SERUM) [facility] [place] [facility] Mar 26, 2024 12:00 AM Laboratory - Chemistry Order LIPID PANEL FASTING BLOOD (SST-SERUM) [facility] [place] [facility] Social History: Smoking Status (Most [...] took place. Date/Time Current Smoking Status Comment [facility] Jan 06, 2024 09:30 AM VA-TOBACCO QUIT 15 YRS OR MORE [facility] Tobacco Use History This section includes a history of the smoking, or tobacco-related health factors, that were collected on or before the date of the Encounter. The data comes from the [place] facility where the Encounter took place. Date/Time Smoking Status/Tobac co Use Comment Facility Jan 06, 2024 09:30 AM VA-TOBACCO QUIT 15 YRS OR MORE [facility] [place] [facility] Dec 24, 2022 10:30 AM VA-TOBACCO FORMER USER [facility] [place] [facility] Dec 24, 2022 10:30 AM VA-TOBACCO QUIT 15 YRS OR MORE [facility] [place] [facility] Dec 24, 2021 10:00 AM VA-TOBACCO FORMER USER [facility] [place] [facility] Dec 24, 2021 10:00 AM VA-TOBACCO QUIT 5 TO < 15 YRS [facility] [place] [facility] Dec 14, 2020 08:30 AM VA-TOBACCO FORMER USER [facility] [place] [facility] Dec 14, 2020 08:30 AM VA-TOBACCO QUIT 5 TO < 15 YRS [facility] [place] [facility] Nov 15, 2019 11:00 AM VA-TOBACCO FORMER USER [facility] [place] [facility] Nov 15, 2019 11:00 AM VA-TOBACCO QUIT 5 TO < 15 YRS [facility] [place] [facility] Oct 20, 2017 08:19 AM [facility] Oct 20, 2017 08:19 AM VA-TOBACCO QUIT 5 TO < 15 YRS [facility] Sep 04, 2017 11:09 AM QUIT TOBACCO USE > 7 YEARS AGO [facility] Oct 16, 2016 09:08 AM QUIT TOBACCO USE > 7 YEARS AGO [facility] Feb 20, 2015 10:58 AM QUIT TOBACCO USE > 7 YEARS AGO quit 2009-cigarettes and cigars for 45 years [facility] Advance Directives: All historical and current [...] Mar 23, 2014 ADVANCE DIRECTIVE ROSALINDA SHELBY [facility] Encounter Notes: All associated encounter notes This section contains the clinical notes associated to the Encounter. 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 Average RNFL thickness 75 microns. Mild thinning inferior nasally. OS Signal strength: 8/10 OS: average c/d 0.63, vertical c/d 0.57, disc area 1.97 mm^2. Average RNFL thickness 81 microns. Mild thinning at inferior nasally. 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 I saw this in conjunction with the optometry student. The visual images were captured by the optometry health traffic analysis technician. Results of testing assessed by the student and reviewed by myself. [place]'s history, complaints and student's findings and plan reviewed. I reviewed and agree with the stated findings, assessment and plan. I have added/edited the documentation to reflect my exam findings and changes to the assessment and plan. /jus/ JUAN DIEGO SHELLEY OD ROUTE SALES ASSOCIATE Signed: 03/03/2024 16:03 LIGIA GODFREY [facility]
--- OUTSIDE RECORDS SUMMARY | 2024-03-26 16:29 | XMS_ITS ---
Author Organization Dean Parsons III, MD Address [address] [place] [address] Care Team Providers Care Manager Rn Name Role Phone Donte Powell MD Primary Care Provider Dean Hopson Unavailable [phone] Allergies Allergen (clinical drug ingredient) Drug/Non Drug Allergy documented on EMR Reaction Allergy Type Onset Date Status almond allergenic extract [place] (Diagnostic) Unknown Drug Allergy Active Shellfish (FN) Shellfish-derived Products Throat closes Drug Allergy Active warfarin Warfarin Sodium rash Drug Allergy A ctive REASON FOR VISIT NK Nasal lymphoma, Diabetes, Hyperlipidemia, Diabetes mellitus, Peripheral vascular diseasee, Atrial fibrillation, Chronic anticoagulation Medications Medication SIG (Take, Route, Frequency, Duration) Notes Start Date End Date Status Terazosin HCl 5 MG 1 capsule at bedtime Orally Once a day Active Finasteride 5 MG 1 tablet Orally Once a day Active Lantus 100 UNIT/ML 18Unit Subcutaneous Once a day Active Furosemide 40 MG TAKE 1 TABLET BY SHOBHA TH DAILY Oral Active Lipitor 40 MG 1 tablet Orally Once a day Active Losartan Potassium 25 MG Oral Active Toprol XL 25 MG 1/2 tablet Orally On a day 06/18/2022 Active Eliquis 5 MG 1 tablet Orally once a day Active Fenofibrate 54 MG Oral Ac tive Advair Diskus 100-50 MCG/ACT 1 puff Inhalation Twice a day Active Aspir-81 Active NIFEdipine ER 30 MG TAKE 1 TABLET BY SHOBHA TH EVERY DAY Oral Active Social History Tobacco Use: Social History Observation Description Date Details (start date - stop date) Former Smoker NA - NA Tobacco Use/Smoking Question Answer Notes Patient is a former smoker How long has it been since you last smoked? > 10 years Additional Findings: Tobacco Non-User Ex-cigaret te smoker Problems Problem Type SNOMED Code ICD Code Onset Dates Problem Status W/U Status Risk Notes Problem 105039927 Skin cancer (C44.90) Active confirmed The lesion on the left upper eyelid will be removed June 26, 2023. Problem 3476014 Former smoker (Z87.891) Active confirmed He remains abstinent. He oglesby a planned to prevent relapse and times of stress and illness. Vital Signs Temperature 97.2 degrees Fahrenheit 05/29/19 24 Blood pressure systolic 106 mm Hg 05/29/19 24 Blood pressure diastolic 51 mm Hg 024 Heart Rate 96 /min 05/29/2023 Height 67 in 05/29/2023 Weight 181 lbs 05/29/2023 BMI 28.35 kg/m2 05/29/2023 Encounters Encounter Location Date Provider Diagnosis Dean Parsons III, MD [address] [place] [address] [place] [address] 05/29/2023 Dean Parsons Lymphoma C85.90 ; Essential hypertension I10 ; Hyperlipemia E78.5 ; Overweight E66.3 ; Atrial fibrillation I48.91 ; Skin cancer C44.90 ; Peripheral vascular disease in diabetes mellitus E11.51 and Former smoker Z87.891 Assessments Encounter Date Diagnosis (ICD Code) Assessment Notes Treatment Notes Treatment Clinical Notes 05/29/2023 Lymphoma (ICD-10 - C85.90) There is no sign of recurrent N/K T-cell lymphoma in any site at this time. Surveillance will continue at six-month intervals. He will return immediately for any symptoms of relapse. The nodular lesion on the right cheondoism is in an area of previous disease but appears to be a basal cell. 05/29/2023 Essential hypertension (ICD-10 - I10) His blood pressure is well controlled today and no change in his regimen was needed. 05/29/2023 Hyperlipemia (ICD-10 - E78.5) His lipids have been well controlled. No change in his regimen was needed. His statin therapy was continued. 05/29/2023 Overweight (ICD-10 - E66.3) He has lost 2 pounds. His body mass index is 28. We discussed diet and nutrition. We made a plan to lose weight at a rate of 2 pounds a month. 05/29/2023 Atrial fibrillation (ICD-10 - I48.91) He is in a sinus rhythm today with a rate of about 80. His cardiovascular status stable.. 05/29/2023 Skin cancer (ICD-10 - C44.90) The lesion on the left upper eyelid will be removed June 26, 2023. 05/29/2023 Peripheral vascular disease in diabetes mellitus (ICD-10 - E11.51) He is currently able to conduct all of the activities of daily living without difficulty. He experiences some claudication with prolonged walking. He is seen by vascular surgery at regular intervals. 05/29/2023 Former smoker (ICD-10 - Z87.891) He remains abstinent. He oglesby a planned to prevent relapse and times of stress and illness. Plan Of Treatment Medication Medication Name Sig Start Date Stop Date Notes Terazosin HCl 5 MG 1 capsule at bedtime Orally Once a day Finasteride 5 MG 1 tablet Orally Once a day Lantus 100 UNIT/ML 18Unit Subcutaneous Once a day Furosemide 40 MG TAKE 1 TABLET BY SHOBHA TH DAILY Oral Lipitor 40 MG 1 tablet Orally Once a day Losartan Potassium 25 MG Oral Toprol XL 25 MG 1/2 tablet Orally Once a day 06/18/2022 Eliquis 5 MG 1 tablet Orally once a day Fenofibrate 54 MG Oral Advair Diskus 100-50 MCG/ACT 1 puff Inhalation Twice a day -81 NIFEdipine ER 30 MG TAKE 1 TABLET BY SHOBHA TH EVERY DAY Oral Pending Test Test Name Order Date PROFILE, RANDOM (COMPREHENSIVE METABOLIC ) 05/29/2023 LDH 05/29/2023 CBC w DIFF 05/29/2023 SED RATE (ESR) 05/29/2023 Next Appt Details Follow Up: 4 Months, Reason: OV review labs Provider Name:Dean Parsons, 04/05/2024 09:30:00 AM, [address] [place] [address] DR, [facility] [[email or web address]] [address], [place], [address], Progress Notes * Joel LOGANDOB:[birth year] (82 yo M)Acc No.[id number]:05/29/2023 Progress Notes Patient:?Joel Logan Provider:?Dean Parsons MD :1940???Age:82 Y???Sex:Male Srinivasan e:05/29/2023 Address:[address] [place] [address], [place] [address] Pcp:Donte Powell MD Subjective: * Chief Complaints: * ???NK Nasal lymphomaDiabetes HyperlipidemiaDiabetes mellitusPeripheral vascular diseaseeAtrial fibrillationChronic anticoagulation * HPI: ???COVID-19 Screening:? 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 He was in the [facility] April 25 through April 29, 2023 with epistaxis and a myocardial infarction. 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 He has had no chest pain or shortness of breath recently. ?Questions?Have you experienced fever, chills, cough, sore throat, shortness of breath, difficulty breathing, muscle aches, loss of taste or smell??Yes cough & SOB stated longer than 48 hrs ?Have you been exposed to the virus within the last 10 days??No ?Have you travelled internationally in the last 10 days??No ?Have you been exposed to COVID-19 in the past??No * ROS:?General/Constitutional:?pain?only normal aches and pains.?Chills?denies.?Fatigue?admits.?Fever?denies.?ENT:?Decreased hearing?mild.?Respiratory:?Cough?denies.?Cardiovascular:?Chest pain with exertion?denies.?Dyspnea on exertion?denies.?Shortness of breath?denies.?Gastrointestinal:?Constipation?occasional.?Decreased appetite?denies.?Diarrhea?denies.?Heartburn?denies.?Nausea?denies.?Rectal bleeding?denies.?Vomiting?denies.?Hematology:?bruising?denies.?petechiae?denies.?Swollen glands?none have been noted.?Genitourinary:?Frequent urination?twice a night.?Musculoskeletal:?Muscle aches?denies.?Painful joints?denies.?Sciatica?denies.?Weakness?denies.?Skin:?Itching?denies.?Rash?denies.?Skin lesion(s)?Ovoid lump attached to left upper eyelid.?Neurologic:?Difficulty speaking?denies.?Dizziness?denies.?Headache?denies.?Low back pain?denies.?Psychiatric:?Depressed mood?denies.? * Medical History:? * Surgical History:?appendecto my as a child bypass graft left thigh repeat left leg femoral-popliteal bypass graft 01/07/2013one marrow biopsy and aspirate autologous stem cell transplant [facility] left femoral popliteal bypass surgery 04/2013vascular bypass surgery left lower extremity ngioplasty left leg [facility] 2017skin cancer removed from ear 2018Basal cell carcinoma of face 2021 * Hospitalization/Major Diagno stic Procedure:?Denies Past Hospitalization * Family History:?Father: onelia e 95 yrs, skin cancer, , hyperlipidemia, diagnosed with Hyperlipidemia, Cancer.?Mother: 76 yrs, diabetes mellitus, liver cancer, diagnosed with Cancer, DM.?2 brother(s) , 1 sister(s) - healthy. 3 son(s) , 2 daughter(s) - healthy. .? A brother and sister have diabetes. A sister had rheumatic fever as a child and has heart diseast. A son in infancy and a daughter has cancer. His has 5 children from a previous marriage. * Social History:?Tobacco Use:?Tobacco Use/Smoking?Patient is a?former smoker ?How long has it been since you last smoked??> 10 years ?Additional Findings: Tobacco Non-User?Ex-cigarette smoker ???He has been to [place] for 22 years years and is retired. He was born in [place], [place]. He has 4 biological children. 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 * Medications:?TakingAspir-81 Advair Diskus 100-50 MCG/ACT Aerosol Powder Breath Activated 1 puff Inhalation Twice a dayNIFEdipine ER 30 MG Tablet Extended Release 24 Hour TAKE 1 TABLET BY MOUTH EVERY DAY Oral Fenofibrate 54 MG Tablet Oral Eliquis 5 MG Tablet 1 tablet Orally once a dayToprol XL 25 MG Tablet Extended Release 24 Hour 1/2 tablet Orally Once a dayLosartan Potassium 25 MG Tablet Oral Lipitor 40 MG Tablet 1 tablet Orally Once a dayLantus 100 UNIT/ML Solution 18Unit Subcutaneous Once a dayFinasteride 5 MG Tablet 1 tablet Orally Once a dayTerazosin HCl 5 MG Capsule 1 capsule at bedtime Orally Once a dayFurosemide 40 MG Tablet TAKE 1 TABLET BY MOUTH DAILY Oral Taking Aspir-81 Taking Advair Diskus 100-50 MCG/ACT Aerosol Powder Breath Activated 1 puff Inhalation Twice a dayTaking NIFEdipine ER 30 MG Tablet Extended Release 24 Hour TAKE 1 TABLET BY MOUTH EVERY DAY Oral Taking Fenofibrate 54 MG Tablet Oral Taking Eliquis 5 MG Tablet 1 tablet Orally once a dayTaking Toprol XL 25 MG Tablet Extended Release 24 Hour 1/2 tablet Orally Once a dayTaking Losartan Potassium 25 MG Tablet Oral Taking Lipitor 40 MG Tablet 1 tablet Orally Once a dayTaking Lantus 100 UNIT/ML Solution 18Unit Subcutaneous Once a dayTaking Finasteride 5 MG Tablet 1 tablet Orally Once a dayTaking Terazosin HCl 5 MG Capsule 1 capsule at bedtime Orally Once a dayTaking Furosemide 40 MG Tablet TAKE 1 TABLET BY MOUTH DAILY Oral DiscontinuedGemfibrozil 600 MG Tablet 1 tablet Orally Twice a dayGemfibrozil 600 MG Tablet 1 tablet Orally Twice a dayMedication List reviewed and reconciled with the patientDiscontinued Gemfibrozil 600 MG Tablet 1 tablet Orally Twice a dayDiscontinued Gemfibrozil 600 MG Tablet 1 tablet Orally Twice a dayMedication List reviewed and reconciled with the patient * Allergies:?Warfarin Sodium: rash - Side EffectsShellfish-derived Products: Throat closes - Side EffectsAlmond (Diagnostic)no[Allergies Verified] Objective: * Vitals:?Ht: 67, Wt:181, BMI: 28.35, BP:106/51, HR:96, Temp:97.2, Wt-k.1. * Examination: ???General Examination: ?GENERAL APPEARANCE:?pleasant, well nourished, well developed, in no acute distress, calm and relaxed , overweight , elderly man.?HEAD:?atraumatic, normocephalic.?EYES:?eomi, perrla, anicteric, conjugate, 1 cm mass potential left upper eyelid.?EARS:?normal.?NOSE:?septum intact.?ORAL CAVITY:?normal, unremarkable.?NECK/THYROID:?no jugular venous distention, no carotid bruit, thyroid normal.?LYMPH NODES:?no enlarged lymph nodes,spleen normal.?SKIN:?no suspicious lesions, anicteric.?HEART:?no clicks, gallops, murmurs, or rubs, regular rhythm, S1, S2 normal, no s3, or vascular bruits.?LUNGS:?clear to auscultation .?BREASTS:??no masses palpable bilaterally.?ABDOMEN:?bowel sounds normal, no ascites, no organomegaly, no mass , overweight.?RECTAL EXAM:?not examined.?MUSCULOSKELETAL:?extremities unremarkable, no clubbing, cyanosis or edema.?PERIPHERAL PULSES:?normal.?NEUROLOGIC:?alert and oriented, cranial nerves 2-12 grossly intact, deep tendon reflexes 2+ symmetrical, motor strength normal upper and lower extremities, sensory exam intact.?PSYCH:?alert, oriented.? Assessment: * Assessment: 1.?Lymphoma - C85.90 (Primar y), There is no sign of recurrent N/K T-cell lymphoma in any site at this time. Surveillance will continue at six-month intervals. He will return immediately for any symptoms of relapse. The nodular lesion on the right cheondoism is in an area of previous disease but appears to be a basal cell.?2.?Essential hypertension - I10, His blood pressure is well controlled today and no change in his regimen was needed.?3.?Hyperlipemia - E78.5, His lipids have been well controlled. No change in his regimen was needed. His statin therapy was continued. 4.?Overweight - E66.3, He has lost 2 pounds. His body mass index is 28. We discussed diet and nutrition. We made a plan to lose weight at a rate of 2 pounds a month.?5.?Atrial fibrillation - I48.91, He is in a sinus rhythm today with a rate of about 80. His cardiovascular status stable..?6.?Skin cancer - C44.90, The lesion on the left upper eyelid will be removed June 26, 2023.?7.?Peripheral vascular disease in diabetes mellitus - E11.51, He is currently able to conduct all of the activities of daily living without difficulty. He experiences some claudication with prolonged walking. He is seen by vascular surgery at regular intervals.?8.?Former smoker - Z87.891, He remains abstinent. He oglesby a planned to prevent relapse and times of stress and illness.? Plan: * Treatment: 2.?Others? Continue Aspir-81;?Continue Advair Diskus Aerosol Powder Breath Activated, 100-50 MCG/ACT, 1 puff, Inhalation, Twice a day;?Continue Fenofibrate Tablet, 54 MG, Oral;?Continue Toprol XL Tablet Extended Release 24 Hour, 25 MG, 1/2 tablet, Orally, Once a day;?Continue Losartan Potassium Tablet, 25 MG, Oral.?? * Procedure Codes:? * Preventive Medicine:? ??Counseling:?Care goal follow-up plan:?Counseling for abnormal BMI given?Yes ?Above Normal BMI Follow-up?Dietary management education, guidance, and counseling ?Smoking/Tobacco Use?Patient counseled on the dangers of tobacco use and urged to quit.?05/29/2023 ??DM Care Plan:?Patient Lifestyle Goals?Patient wants to be able to manage diabetes without too much effort.?Treatment Goals?Blood Sugars less than < 115, HbA1C < 7.0.?Barriers?no barriers.?Self-Managment Goals?Work on weight loss, with a goal of losing 1 lb per week.? * Follow Up:?4 Months (Reason: OV review labs ) * Images: * Sign off status: Completed true * Provider:?Dean Parsons MD Date:?09/2023 Generated for Printi ng/Bran/eTransmitting on:?03/26/2024 04:29 PM EST History and Physical Notes * HPI (History of Present Illness) Category Sub-Category Detail Notes COVID-19 Screening Questions Have you had any new onset fever, chills, cough, congestion, sore throat, shortness of breath, muscle aches?: Yes cough & SOB stated longer than 48 hrs Have you been exposed to the virus withi n the last 10 days?: No Have you travelled internationally in [facility] last 10 days?: No Have you been exposed to COVID-19 in the past?: No Examination Category Sub-Category Detail Notes General Examination GENERAL APPEARANCE: pleasant , well nourished, well developed, in no acute distress, calm and relaxed , overweight , elderly man HEAD: atraumatic, normocep halic EYES: eomi, perrla, anicte nafisa, conjugate, 1 cm mass potential left upper eyelid EARS: normal NOSE: septum intact NECK/THYROID: no jugular venous di stention, no carotid bruit, thyroid normal HEART: no clicks, gallops, murmurs, or rubs, regular rhythm, S1, S2 normal, no s3, or vascular bruits LUNGS: clear to auscultatio n ABDOMEN: bowel sounds normal, no ascites, no organomegaly, no mass , overweight NEUROLOGIC: alert and oriented, cranial nerves 2-12 grossly intact, deep tendon reflexes 2+ symmetrical, motor strength normal upper and lower extremities, sensory exam intact SKIN: no suspicious lesion s, anicteric PERIPHERAL PULSES: normal BREASTS: no masses palpable b ilaterally MUSCULOSKELETAL: extremities unremark able, no clubbing, cyanosis or edema LYMPH NODES: no enlarged lymph no marcie,spleen normal RECTAL EXAM: not examined PSYCH: alert, oriented ORAL CAVITY: normal, unremarkable
--- OUTSIDE RECORDS SUMMARY | 2024-03-26 16:29 | XMS_ITS ---
Author Organization Dean Parsons III, MD Address [address] [place] [address] Care Team Providers Care Broke Man Name Role Phone Donte Powell MD Primary Care Provider Dean Hopson Unavailable [phone] Allergies Allergen (clinical drug ingredient) Drug/Non Drug Allergy documented on EMR Reaction Allergy Type Onset Date Status almond allergenic extract [place] (Diagnostic) Unknown Drug Allergy Active Shellfish (FN) [...] Date Provider Diagnosis Dean Parsons III, MD [address] [address] DR [place], [place] [address] 10/02/2023 Dean Parsons Lymphoma C85.90 ; Overweight [...] relapse. The nodular lesion on the right hindu is in an area of previous disease [...] 6 Months, Reason: OV Provider Name:Dean Parsons, 04/05/2024 09:30:00 AM, [address] [address] DR [facility] [place], [place], [address], Progress Notes * Joel LOGANB:11/23 (82 yo M)Acc No.[id number]:10/02/2023 Progress Notes Patient:?Joel Logan Provider:?Dean Parsons MD :1940???Age:82 Y???Sex:Male Srinviasan e:10/02/2023 Address:[address] [place], [place] [id number] Pcp:Donte Powell MD Subjective: * Chief Complaints: * ???Lymphoma in remissionMult iple cutaneous squamous cell carcinomaAortic stenosisHypertensionPeripheral arterial diseaseAtrial fibrillationAnticoagulation * HPI: ???COVID-19 Screening:? 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 No sign of the disease was found today. He recently spent several nights at the [facility] with uncontrolled atrial fibrillation and aortic stenosis. His valve was studied at that time and a trans-arterial aortic valve replacement is being planned. A pacemaker has been inserted in the left anterior chest wall.Imaging and studies of the heart showed good contractility with a normal ejection fraction. ?Questions?Have you experienced fever, chills, cough, sore throat, shortness of breath, difficulty breathing, muscle aches, loss of taste or smell??No ?Have you been exposed to the virus within the last 10 days??No ?Have you travelled internationally in the last 10 days??No ?Have you been exposed to COVID-19 in the past??No * ROS:?General/Constitutional:?pain?only normal aches and pains.?Chills?denies.?Fatigue?admits.?Fever?denies.?ENT:?Decreased hearing?mild.?Respiratory:?Cough?denies.?Cardiovascular:?Chest pain with exertion?denies.?Dyspnea on exertion?denies.?Shortness of breath?denies.?Gastrointestinal:?Constipation?occasional.?Decreased appetite?denies.?Diarrhea?denies.?Heartburn?denies.?Nausea?denies.?Rectal bleeding?denies.?Vomiting?denies.?Hematology:?bruising?denies.?petechiae?denies.?Swollen glands?none have been noted.?Genitourinary:?Frequent urination?once a night.?Musculoskeletal:?Muscle aches?denies.?Painful joints?denies.?Sciatica?denies.?Weakness?denies.?Skin:?Itching?denies.?Rash?denies.?Skin lesion(s)?Several squamous cell carcinomas of the skin have been removed from the face and back and left arm.?Neurologic:?Difficulty speaking?denies.?Dizziness?denies.?Headache?denies.?Low back pain?denies.?Psychiatric:?Depressed mood?denies.? * Medical History:? * Surgical History:?appendecto my as a child bypass graft left thigh repeat left leg femoral-popliteal bypass graft 01/07/2013one marrow biopsy and aspirate autologous stem cell transplant [facility] left femoral popliteal bypass surgery 04/2013vascular bypass surgery left lower extremity ngioplasty left leg [facility] 2017skin cancer removed from ear 2018Basal cell carcinoma of face 2021 * Hospitalization/Major Diagno stic Procedure:?Denies Past Hospitalization * Family History:?Father: onelia marti 95 yrs, skin cancer, , hyperlipidemia, diagnosed [...] and is retired. He was born in [place], [place]. He has 4 biological children. 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 * Medications:?TakingCarboxyme thylcellulose Sodium B12 Folate Advair Diskus 100-50 MCG/ACT [...] EffectsAlmond (Diagnostic)no[Allergies Verified] Objective: * Vitals:?Ht: 67, Wt:175, BMI: 27.41, BP:121/70, HR:63, Temp:97.0, Wt-k.38. * ???Past Orders: Lab:Lactate Dehydrogenase * Order Date 09/10/2023 [...] (Ref Range: 0.0-1.0 mg/dL) Aspartate Amino Transferase 45?H (Ref Range: 5-37 U/L) 30 (Ref Range: 5-37 U/L) 24 (Ref Range: 5-37 U/L) Alanine Aminotransferase 42?H (Ref Range: 0-40 U/L) 28 (Ref Range: [...] mmol/L) Chloride 107 (Ref Range: 96-108 mmol/L) 110?H (Ref Range: 96-108 mmol/L) 108 (Ref Range: 96-108 mmol/L) Carbon Dioxide 25 (Ref Range: 22-29 mmol/L) 19?L (Ref Range: 22-29 mmol/L) 20?L (Ref Range: 22-29 mmol/L) Anion Gap 10?L (Ref Range: 12-20) 16 (Ref Range: 12-20) 15 (Ref Range: 12-20) Blood Urea Nitrogen 29?H (Ref Range: 9-16 mg/dL) 27?H (Ref Range: 9-16 mg/dL) 27?H (Ref Range: 9-16 mg/dL) Creatinine 1.49?H (Ref Range: 0.5-1.4 mg/dL) 1.31 (Ref Range: 0.5-1.4 mg/dL) 1.48?H (Ref Range: 0.5-1.4 mg/dL) Estimated Glomerular Filt Rate 45 53 46 Glucose Random 136?H (Ref Range: 60-115 mg/dL) 181?H (Ref Range: 60-115 mg/dL) 116?H (Ref Range: 60-115 mg/dL) Calcium 9.6 (Ref Range: 8.4-10.2 mg/dL) 9.2 (Ref Range: 8.4-10.2 mg/dL) 8.8 (Ref Range: 8.4-10.2 mg/dL) * Lab:Erythrocyte Sedimentatio n Rate * Order Date 09/10/2023 05/26/2023 01/29/2023 Erythrocyte Sedimentation Rate 53?H (Ref Range: 0-15 MM/HR) 54?H (Ref Range: 0-15 MM/HR) 34?H (Ref Range: 0-15 MM/HR) * Lab:Complete Blood Count Aut o Diff * Order Date 09/10/2023 01/29/2023 06/13/2022 White Blood Count 5.6 (Ref Range: 4.8-10.8 X10*3/uL) 6.7 (Ref Range: 4.8-10.8 X10*3/uL) 5.4 (Ref Range: 4.8-10.8 X10*3/uL) Red Blood Count 3.82?L (Ref Range: 4.60-5.80 X10*6/uL) 4.05?L (Ref Range: 4.60-5.80 X10*6/uL) 3.95?L (Ref Range: 4.60-5.80 X10*6/uL) Hemoglobin 11.7?L (Ref Range: 14.0-18.0 g/dl) 12.6?L (Ref Range: 14.0-18.0 g/dl) 12.7?L (Ref Range: 14.0-18.0 g/dl) Hematocrit 36.0?L (Ref Range: 42.0-52.0 %) 40.6?L (Ref Range: 42.0-52.0 %) 38.3?L (Ref Range: 42.0-52.0 %) Mean Corpuscular Volume 94.2 (Ref Range: 80.0-98.0 fL) 100.2?H (Ref Range: 80.0-98.0 fL) 97.0 (Ref Range: [...] 160-400 X10*3/uL) 182 (Ref Range: 160-400 X10*3/uL) 144?L (Ref Range: 160-400 X10*3/uL) Mean Platelet Volume 11.1 (Ref Range: 9.4-12.4 fL) 10.8 (Ref Range: 9.4-12.4 fL) 11.0 (Ref Range: 9.4-12.4 fL) Neutrophils Percent Auto 68.7 (Ref Range: 45-73 %) 67.8 (Ref Range: 45-73 %) 64.8 (Ref Range: 45-73 %) Imm Gran Pct Auto 0.7?H (Ref Range: 0.0-0.4 %) 0.6?H (Ref Range: 0.0-0.4 %) 0.7?H (Ref Range: 0.0-0.4 %) Lymphocytes Percent Auto 19.9?L (Ref Range: 20-40 %) 20.7 (Ref Range: [...] Range: 2.0-8.3 x10*3/uL) Imm Gran Abs Auto 0.04?H (Ref Range: 0.00-0.03 X10*3/uL) 0.04?H (Ref Range: 0.00-0.03 X10*3/uL) 0.04?H (Ref Range: 0.00-0.03 X10*3/uL) Lymphocytes Absolute Auto 1.1?L (Ref Range: 1.2-4.9 X10*3/uL) 1.4 (Ref Range: [...] 0.000 (Ref Range: 0.0-0.012 X10*3/uL) * Examination: ???General Examination: ?GENERAL APPEARANCE:?pleasant, well nourished, well developed, in no acute distress, calm and relaxed , overweight, , man.?HEAD:?atraumatic, normocephalic.?EYES:?eomi, perrla, anicteric, conjugate.?EARS:?normal.?NOSE:?septum intact, Surface scarring with skin graft without recurrent disease.?ORAL CAVITY:?normal, unremarkable.?NECK/THYROID:?no jugular venous distention, no carotid bruit, thyroid normal.?LYMPH NODES:?no enlarged lymph nodes,spleen normal.?SKIN:?no suspicious lesions, anicteric, Numerous healed skin cancer excision scars.?HEART:?no clicks, gallops, Faint 1/6 systolic?murmur, or rubs, regular rhythm, S1, S2 normal, [...] relapse. The nodular lesion on the right hindu is in an area of previous disease but appears to be a basal cell.?2.?Overweight - E66.3, His body mass index is 17. We discussed his diet and nutrition. We made a plan to lose weight at a rate of one half of a pound per week.?3.?Diabetes mellitus - E11.9, His diabetes and he is compliant with his treatment. No change in his regimen as necessary.?4.?Vitamin B12 deficiency - E53.8, Continues on replacement therapy.?5.?Essential hypertension - I10, His blood pressure is well controlled today at 121/70 and no change in his regimen was needed.?6.?Atrial fibrillation - I48.91, He is in a sinus rhythm today with a rate of about 80. His cardiovascular status stable..?7.?Peripheral vascular disease in diabetes mellitus - E11.51, He is currently able to conduct all of the activities of daily living without difficulty. He experiences some claudication with prolonged walking. He is seen by vascular surgery at regular intervals.?8.?Skin cancer - C44.90, The lesion on the left upper eyelid will be removed June 26, 2023.?9.?Former smoker - Z87.891, He remains abstinent. He oglesby a planned to prevent relapse and times of stress and illness.? Plan: * Treatment: 2.?Overweight?LAB: PROFILE, FASTING (COMPREHENSIVE METABOLIC) ?LAB: CBC WITH AUTO DIFF ?LAB: Lipid Panel ?LAB: Vitamin B12 ?LAB: Microalbumin, Random ?LAB: Hemoglobin A1c 3.?Diabetes mellitus?LAB: PROFILE, FASTING (COMPREHENSIVE METABOLIC) ?LAB: CBC WITH AUTO DIFF ?LAB: Lipid Panel ?LAB: Vitamin B12 ?LAB: Microalbumin, Random ?LAB: Hemoglobin A1c 4.?Vitamin B12 deficiency?LAB: PROFILE, FASTING (COMPREHENSIVE METABOLIC) ?LAB: CBC WITH AUTO DIFF ?LAB: Lipid Panel ?LAB: Vitamin B12 ?LAB: Microalbumin, Random ?LAB: Hemoglobin A1c 5.?Others? Continue Aspir-81;?Continue Advair Diskus Aerosol Powder Breath [...] Normal BMI Follow-up?Dietary management education, guidance, and counseling, Dietary needs education ?Smoking/Tobacco Use?Patient counseled on the dangers of tobacco use and urged to quit.?10/02/2023 ??DM Care Plan:?Patient Lifestyle Goals?Patient wants to be able to manage diabetes without too much effort.?Treatment Goals?Blood Sugars less than < 115, HbA1C < 7.0.?Barriers?no barriers.?Self-Managment Goals?Work on weight loss, with a goal of losing 1 lb per week.? * Follow Up:?6 Months (Reason: OV) * Images: * Sign off status: Completed true * Provider:?Dean Parsons MD Date:?09/21 Generated for Sherifi ng/Sapphireg/eTransmitting on:?03/26/2024 04:28 PM EST History and Physical Notes * HPI (History of Present Illness) Category Sub-Category Detail Notes COVID-19 Screening Questions Have you had any new onset fever, chills, cough, congestion, sore throat, shortness of breath, muscle aches?: No Have you been exposed to the virus withi n the last 10 days?: No Have you travelled internationally in th e last 10 days?: No Have you [...]
--- OUTSIDE RECORDS SUMMARY | 2024-03-26 16:29 | XMS_ITS | Encounter Summary ---
Author Name [facility] [place] Organization [facility] [place] Address [address] [place] [address] Care Team Providers Care Freight Breaker Name Role Phone AJAY APODACA Primary Care [...] PART A Nov 22, 2006 PART A [id number] TONY CASTELLON PATIENT MEDICARE (WNR) MEDICARE (M) PART B Nov 22, 2006 PART B [id number] [phone] TONY CASTELLON PATIENT MEDICARE (WNR) MEDICARE (M) PART A Nov 22, 2006 PART A [id number] TONY CASTELLON PATIENT MEDICARE (WNR) MEDICARE (M) PART B Nov 22, 2006 PART B [id number] TONY CASTELLON PATIENT FOR LIFE TFL* Apr 20, 2014 [id number] SUKHJINDER CASTELLON JR PATIENT Selected Encounter This section includes the information on record at [place] for the Encounter. Date/Time Encounter Type Encounter Description Reason Provider Source Feb 25, 2024 12:57 PM Outpatient Encounter TELEPHONE/MEDICI NE ICD-10-CM E11.8 Type 2 diabetes mellitus with unspecified complications MIAH BUTTS [facility] Encounter Template Text not used by PA Assessments - Encounter Diagnoses This section includes the primary and secondary diagnoses documented for the Encounter. Date/Time Primary/Secondary Diagnosis Diagnosis Name Provider Source Feb 25, 2024 12:57 PM PRIMARY Type 2 diabetes mellitus with unspecified complications MIAH BUTTS [facility] Plan of Treatment: Future Appointments (+ 6 months) and Future Tests (+/- 45 days) The Plan of Treatment section includes future care activities for the patient from [facility]. This section includes future appointments and future orders which are active, pending or scheduled. Future Appointments This section includes appointments that were scheduled to occur 6 months from the date of the Encounter, up to a maximum of 20 appointments. The data comes from all [facility]. Appointment Date/Time Appointment Type Appointme nt Facility Name Mar 03, 2024 02:00 PM AMBULATORY - MEDICINE [facility] [place] [facility] Mar 03, 2024 02:30 PM AMBULATORY MEDICINE [facility] [place] [facility] Mar 30, 2024 03:00 PM AMBULATORY MEDICINE [facility] [place] [facility] Mar 31, 2024 02:30 PM AMBULATORY MEDICINE [facility] [place] [facility] Apr 07, 2024 08:00 AM AMBULATORY - MEDICINE [facility] [place] [facility] May 17, 2024 02:00 PM AMBULATORY - MEDICINE [facility] [place] [facility] Jul 08, 2024 09:00 AM AMBULATORY MEDICINE [facility] [place] [facility] Active, Pending, and Scheduled Orders This section includes a listing of several types of active, pending, and scheduled orders, including clinic medications orders, diagnostic test orders, procedure orders and consult orders; where the start date of the order is 45 days before the date of the Encounter or 45 days after the date of theEncounter. The data comes from all [facility]. Test Date/Time Test Type Test Details Facility Name Mar 26, 2024 12:00 AM Laboratory - Chemistry Order HEMOGLOBIN A1C PANEL BLOOD (LAV-BLOOD) SP [facility] Mar 26, 2024 12:00 AM Laboratory - Chemistry Order MICROALBUMIN CREATININE RATIO PANEL URINE (RANDOM) [facility] Mar 26, 2024 12:00 AM Laboratory - Chemistry Order BASIC METABOLIC PANEL (non-fasting) BLOOD (SST-SERUM) [facility] Mar 26, 2024 12:00 AM Laboratory - Chemistry Order LIPID PANEL FASTING BLOOD (SST-SERUM) [facility] Lab Results: +/- 30 days of the encounter This section includes the Chemistry and Hematology Lab Results on record with PA for the patient. Radiology Reports and Pathology Reports are provided separately, in subsequent sections. Lab Results This section contains the Chemistry/Hematology Results that were resulted 30 days before or 30 daysafter the date of the Encounter. Date/Time Source Result Type Result - Unit Interpretation Reference Range Comment Jan 29, 2024 09:49 AM [facility] CREATININE (eGFR 2020) Specimen Type: SERUM No comment entered. Ordering Provider: LAURA APODACA Report Released Date/Time: Jan 27, 2024 07:33 AM Reporting Lab: [address] [address] Performing Lab: [address] [address] CREATININE, Serum 1.86 mg/dL H 0.50-1.40 eGFR(CKD-EPI 2020) 36 mL/min L >60 Jan 29, 2024 09:49 AM [facility] LIVER FUNCTION Specimen Type: SERUM No comment entered. Ordering Provider: LAURA APODACA Report Released Date/Time: Jan 27, 2024 07:33 AM Reporting Lab: [address] [address] Performing Lab: [address] [address] PROTEIN,TOTAL 7.4 g/dL 6.0-8.3 ALBUMIN 3.2 g/dL L 3.5-5.0 ALKALINE PHOSPHATASE 66 U/L 40-150 AST 30 U/L 5-34 ALT 31 U/L BILIRUBIN, TOTAL 0.4 mg/dL 0.2-1.2 Jan 29, 2024 09:49 AM [facility] PT & INR (COUMADIN) Specimen Type: PLASMA No comment entered. Ordering Provider: LAURA APODACA Report Released Date/Time: Jan 27, 2024 07:33 AM Reporting Lab: [address] [address] Performing Lab: [address] [address] INR 1.3 PROTIME 14.6 s H 10.0-13.1 Jan 29, 2024 09:49 AM [facility] CBC Specimen Type: BLOOD No comment entered. Ordering Provider: LAURA APODACA Report Released Date/Time: Jan 27, 2024 07:33 AM Reporting Lab: [address] [address] Performing Lab: [address] [address] WBC 6.95 10*3/uL 4.50-11.00 RBC 3.19 10*6/uL [...] and tobacco- related health factors from the PA facility where the Encounter took place. Current Smoking Status This section includes the most current smoking, or tobacco-related health factor, from the PA facility where the Encounter took place. Date/Time Current Smoking Status Comment Robby albrecht Jan 06, 2024 09:30 AM VA-TOBACCO QUIT 15 YRS OR MORE [facility] Tobacco Use History This section includes a history of the smoking, or tobacco-related health factors, that were collected on or before the date of the Encounter. The data comes from the PA facility where the Encounter took place. Date/Time Smoking Status/Tobac co Use Comment Facility Jan 06, 2024 09:30 AM VA-TOBACCO QUIT 15 YRS OR MORE [facility] [place] [facility] Dec 24, 2022 10:30 AM VA-TOBACCO FORMER USER [facility] [place] [facility] Dec 24, 2022 10:30 AM VA-TOBACCO QUIT 15 YRS OR MORE [facility] [place] [facility] Dec 24, 2021 10:00 AM VA-TOBACCO FORMER USER [facility] [place] [facility] Dec 24, 2021 10:00 AM VA-TOBACCO QUIT 5 TO < 15 YRS [facility] [place] [facility] Dec 14, 2020 08:30 AM VA-TOBACCO FORMER USER [facility] [place] [facility] Dec 14, 2020 08:30 AM VA-TOBACCO QUIT 5 TO < 15 YRS [facility] [place] [facility] Nov 15, 2019 11:00 AM VA-TOBACCO FORMER USER [facility] [place] [facility] Nov 15, 2019 11:00 AM VA-TOBACCO QUIT 5 TO < 15 YRS [facility] [place] [facility] Oct 20, 2017 08:19 AM VA-TOBACCO FORMER USER [facility] [place] [facility] Oct 20, 2017 08:19 AM VA-TOBACCO QUIT 5 TO < 15 YRS [facility] [place] [facility] Sep 04, 2017 11:09 AM QUIT TOBACCO USE > 7 YEARS AGO [facility] [place] [facility] Oct 16, 2016 09:08 AM QUIT TOBACCO USE > 7 YEARS AGO [facility] [place] [facility] Feb 20, 2015 10:58 AM QUIT TOBACCO USE > 7 YEARS AGO quit 2009-cigarettes and cigars for 45 years [facility] Advance Directives: All historical and current Section Date Range: From patient's date of to the date document was created. This section includes ALL of a patient's completed or amended VA Advance and Rescinded Directives. The entries below indicate that a directive exists for the patient, but an actual copy is not included with this document. The data comes from all PA facilities. Date Advance Directives Provider Source Mar 23, 2014 ADVANCE DIRECTIVE ROSALINDA SHELBY [facility] Encounter Notes: All associated encounter notes This section contains the clinical notes associated to the Encounter. Date/Time Encounter Note(s) Provider Source Feb 25, 2024 12:57 PM PHYSICIAN NOTE: LOCAL TITLE: MD NOTE STANDARD TITLE: PHYSICIAN NOTE DATE OF NOTE: FEB 25, 2024@12:57 ENTRY DATE: FEB 25, 2024@12:57:06 AUTHOR: MIAH BUTTS COSIGNER: URGENCY: STATUS: COMPLETED DM 2 Pt is taking glargine 11 units BID and aspart 10 -14 units depepnding on bfast/09/30. Bg are a little better, 240 this AM and 209 now. He agrees to increase insulin glargine to 13 units BID, and to call if bg do not come down to mid 100's. 5 min telephone encounter. /jus/ MIAH BUTTS MD STAFF PHYSICIAN Signed: 02/25/2024 13:02 MIAH BUTTS [facility]
--- OUTSIDE RECORDS SUMMARY | 2024-03-26 16:29 | XMS_ITS ---
Author Organization Dean Parsons III, MD Address [address] [place] [address] Care Team Providers Care Saturator Operator Name Role Phone Donte Powell MD Primary Care Provider Unavaila Dean Patterson Unavailable [phone] REASON FOR VISIT pt to hve pacemaker inserted Encounters Encounter Location Date Provider Diagnosis Dean Parsons III, MD [address] [place] [address] [place] [address] 06/05/2023 Dean Parsons Plan Of Treatment Next Appt Details Provider Name:Dean Parsons, 04/05/2024 09:30:00 AM, [address] [place] [address] [address], [place], [address], Progress Notes * Joel LOGANDOB:[birth year] (82 yo M)Acc No.[id number]:06/05/2023 Patient:?Joel Logan :1940???Age:82 Y???Sex:Male Address:[address] [place] [address] * true * Date:? Generated for Printi nigel/Bran/eTransmitting on:?03/26/2024 04:29 PM EST
--- OUTSIDE RECORDS SUMMARY | 2024-03-26 16:29 | XMS_ITS | Patient Health Record ---
Author Organization Dean Parosns III, MD Address [address] [address] Care Team Providers Care Patient Carrier Name Role Phone Donte Powell MD Primary Care Provider Dean Hopson Unavailable [phone] Allergies Allergen (clinical drug ingredient) Drug/Non Drug Allergy documented on EMR Reaction Allergy Type Onset Date Status Shellfish (FN) Shellfish-derived Products Throat closes Drug Allergy Active almond allergenic extract [place] (Diagnostic) Unknown Drug Allergy Active warfarin Warfarin Sodium rash Drug Allergy A ctive Results Component Value Reference Range Notes Erythrocyte Sedimentation Ra te Reviewed date:05/29/2023 10:58:51 AM Interpretation: Performing Lab:[address] [id number] Notes/Report: Erythrocyte Sedimentation Rate 54 0-15 MM/HR Patients with polycythemia and many hemoglobin abnormalities may have depressed sed rates whereas patients with anemia may have elevated sed rates. Lactate Dehydrogenase Reviewed date:05/29/2023 10:58:51 AM Interpretation: Performing Lab:[facility], [address] [place] [id number] Notes/Report: Lactate Dehydrogenase 183 118-273 U/L Complete Blood Count Auto Di ff Reviewed date:09/13/2023 05:52:47 PM Interpretation: Performing Lab:[address] [id number] Notes/Report: White Blood Count 5.6 4.8-10.8 X10*3/uL Red Blood Count 3.82 4.60-5.80 X10*6/uL Hemoglobin 11.7 14.0-18.0 g/dl Hematocrit 36.0 42.0-52.0 % Mean Corpuscular Volume 94.2 80.0-98.0 fL Mean Corpuscular Hemoglobin 30.6 27.0-33.0 pg Mean Corpuscular HGB Conc 32.5 31.0-36.0 g/dl Red Cell Distribution Width 14.6 11.0-16.0 % Platelet Count 198 160-400 X10*3/uL Mean Platelet Volume 11.1 9.4-12.4 fL Neutrophils Percent Auto 68.7 45-73 % Imm Gran Pct Auto 0.7 0.0-0.4 % Lymphocytes Percent Auto 19.9 20-40 % Monocytes Percent Auto 9.7 2-11 % Eosinophils Percent Auto 0.5 0-4 % Basophils Percent Auto 0.5 0-2 % NRBC Pct Auto 0.0 0.0-0.2 /100WBC Neutrophils Absolute Auto 3.8 2.0-8.3 x10*3/u L Imm Gran Abs Auto 0.04 0.00-0.03 X10*3/uL Lymphocytes Absolute Auto 1.1 1.2-4.9 X10*3/u L Monocytes Absolute Auto 0.5 0.1-1.2 X10*3/uL Eosinophils Absolute Auto 0.0 0.0-0.4 X10*3/u L Basophils Absolute Auto 0.0 0.0-0.2 X10*3/uL NRBC Abs Auto 0.000 0.0-0.012 X10*3/uL Erythrocyte Sedimentation Ra te Reviewed date:09/13/2023 05:52:47 PM Interpretation: Performing Lab:[address] [address] Notes/Report: Erythrocyte Sedimentation Rate 53 0-15 MM/HR Patients with polycythemia and many hemoglobin abnormalities may have depressed sed rates whereas patients with anemia may have elevated sed rates. Comprehensive Met. Panel Reviewed date:09/13/2023 05:52:47 PM Interpretation: Performing Lab:[address] [id number] Notes/Report: Sodium 138 135-145 mmol/L Potassium 4.0 3.3-5.1 mmol/L Chloride 107 96-108 mmol/L Carbon Dioxide 25 22-29 mmol/L Anion Gap 10 12-20 Blood Urea Nitrogen 29 9-16 mg/dL Creatinine 1.49 0.5-1.4 mg/dL Estimated Glomerular Filt Rate 45 NOTE: For -[place] individuals, multiply the result by 1.210. Chronic Kidney Disease: Estimated GFR < 60 mL/min/1.73m2 Severe Kidney Disease: Estimated GFR < 15 mL/min/1.73m2 Glucose Random 136 60-115 mg/dL Calcium 9.6 8.4-10.2 mg/dL Bilirubin Total 0.4 0.0-1.0 mg/dL Aspartate Amino Transferase 45 5-37 U/L Alanine Aminotransferase 42 0-40 U/L Total Protein 7.7 6.5-8.0 g/dL Albumin Level 3.6 3.5-5.0 g/dL Alkaline Phosphatase 64 39-117 U/L Lactate Dehydrogenase Reviewed date:09/13/2023 05:52:47 PM Interpretation: Performing Lab:[facility], [address] [place] [phone] Notes/Report: Lactate Dehydrogenase 216 118-273 U/L Reason For Referral No Information Medications Medication SIG (Take, Route, Frequency, Duration) Notes Start Date End Date Status Amiodarone HCl 200 MG Oral Active NIFEdipine ER 30 MG TAKE 1 TABLET BY SHOBHA TH EVERY DAY Oral Active Toprol XL 25 MG 1/2 tablet Orally On 06/18/2022 Active Losartan Potassium 25 MG Oral Active Fenofibrate 54 MG Oral Ac tive Eliquis 5 MG 1 tablet Orally once a day Active Finasteride 5 MG 1 tablet Orally Once a day Active Terazosin HCl 5 MG 1 capsule at bedtime Orally Once a day Active Lipitor 40 MG 1 tablet Orally Once a day Active Lantus 100 UNIT/ML 18Unit Subcutaneous Once a day Active Atorvastatin Calcium 40 MG Oral Active NovoLOG FlexPen 100 UNIT/ML Subcutaneous Active Aspir-81 Active Furosemide 40 MG TAKE 1 TABLET BY SHOBHA TH DAILY Oral Active B12 Folate Active Advair Diskus 100-50 MCG/ACT 1 puff Inha lation Twice a day Active Carboxymethylcellulose Sodium Active Immunizations Vaccine Route Administration Date Status Comme nts Influenza Unknown 11/22/2013 Administered Pneumococcal Unknown 01/24/2014 Administered Tdap Unknown 10/16/2016 Administered PCV13 Unknown 10/16/2016 Administered PPV 23 Unknown 10/19/2018 Administered COVID 19 Moderna Unknown 04/12/2020 Administered COVID 19 Moderna Unknown 05/10/2020 Administered COVID Moderna Bivalent Unknown 06/13/2022 Administered COVID 19 Moderna Unknown 03/03/2021 Administered Influenza, quad IM Intramuscular 02/06/2023 Administered Social History Tobacco Use: Social History Observation Description Date Details (start date - stop date) Former Smoker NA - NA Tobacco Use/Smoking Question Answer Notes Patient is a former smoker How long has it been since you last smoked? > 10 years Additional Findings: Tobacco Non-User Ex-cigaret te smoker Alcohol Screen Question Answer Notes Did you have a drink containing alcohol in the p ast year? No Points 0 Interpretation Negative Problems Problem Type SNOMED Code ICD Code Onset Dates Problem Status W/U Status Risk Notes Problem 4976700 Former smoker (Z87.891) Active confirmed He remains abstinent. He oglesby a planned to prevent relapse and times of stress and illness. Problem 305411459 Overweight (E66.3) Active confirmed His body mass index is 17. We discussed his diet and nutrition. We made a plan to lose weight at a rate of one half of a pound per week. Problem 61719280 Diabetes mellitu s (E11.9) Active confirmed His diabetes an d he is compliant with his treatment. No change in his regimen as necessary. Problem 283279081 Skin cancer (C44.90) Active confirmed The lesion on the left upper eyelid will be removed June 26, 2023. Problem 470736660 Chronic anticoagulation (Z79.01) Active confirmed He has had no bleeding on the Eliquis which he takes for atrial fibrillation. Problem 634278664 Lymphoma (C85.90) Active confirmed There is no sign of recurrent N/K T-cell lymphoma in any site at this time. Surveillance will continue at six-month intervals. He will return immediately for any symptoms of relapse. The nodular lesion on the right spiritism is in an area of previous disease but appears to be a basal cell. Problem 19105995 Essential hypertension (I10) Active confirmed His blood pressure is well controlled today at 121/70 and no change in his regimen was needed. Problem 29274940 Cataracts, bilateral (H26.9) Active confirmed He is nik g to have surgery October 23, 2022. Problem 87476040 Atrial fibrillation (I48.91) Active confirmed He is in a sinu s rhythm today with a rate of about 80. His cardiovascular status stable.. Problem 32880951 Hyperlipemia (E78.5) Active confirmed His lipids have been well controlled. No change in his regimen was needed. His statin therapy was continued. Problem 32371904 Peripheral vascular disease in diabetes mellitus (E11.51) Active confirmed He is curr ently able to conduct all of the activities of daily living without difficulty. He experiences some claudication with prolonged walking. He is seen by vascular surgery at regular intervals. Problem Basal cell carcinoma of face (001817572) Basal cell carcinoma of face (C44.310) Active confirmed Basal cell carcinoma on his chin has been removed and the scar is healing. 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 There is an extensive procedure and skin grafting, which is now healing. There is no sign of residual disease. Vital Signs Heart Rate 63 /min 10/02/2023 Temperature 97.0 degrees Fahrenheit 10/02/2023 Blood pressure diastolic 70 mm Hg 10/02/2023 Height 67 in 10/02/2023 Blood pressure systolic 121 mm Hg 10/02/2023 Weight 175 lbs 10/02/2023 BMI 27.41 kg/m2 10/02/2023 Encounters Encounter Location Date Provider Diagnosis Dean Parsons III, MD [address] [place] [address] [place] [phone] 05/29/2023 Dean Parsons Lymphoma C85.90 ; Essential hypertension I10 ; Hyperlipemia E78.5 ; Overweight E66.3 ; Atrial fibrillation I48.91 ; Skin cancer C44.90 ; Peripheral vascular disease in diabetes mellitus E11.51 and Former smoker Z87.891 Dean Parsons III, MD [address] [place] [address] [place] [phone] 10/02/2023 Dean Parsons Lymphoma C85.90 ; Overweight E66.3 ; Diabetes mellitus E11.9 ; Vitamin B12 deficiency E53.8 ; Essential hypertension I10 ; Atrial fibrillation I48.91 ; Peripheral vascular disease in diabetes mellitus E11.51 ; Skin cancer C44.90 and Former smoker Z87.891 Dean Parsons III, MD [address] [place] [address] [place] [phone] 06/05/2023 Dean Parsons Assessments Encounter Date Diagnosis (ICD Code) Assessment Notes Treatment Notes Treatment Clinical Notes 05/29/2023 Lymphoma (ICD-10 - C85.90) There is no sign of recurrent N/K T-cell lymphoma in any site at this time. Surveillance will continue at six-month intervals. He will return immediately for any symptoms of relapse. The nodular lesion on the right spiritism is in an area of previous disease but appears to be a basal cell. 05/29/2023 Essential hypertension (ICD-10 - I10) His blood pressure is well controlled today and no change in his regimen was needed. 10/02/2023 Overweight (ICD-10 - E66.3) His body mass index is 17. We discussed his diet and nutrition. We made a plan to lose weight at a rate of one half of a pound per week. 10/02/2023 Lymphoma (ICD-10 - C85.90) There is no sign of recurrent N/K T-cell lymphoma in any site at this time. Surveillance will continue at six-month intervals. He will return immediately for any symptoms of relapse. The nodular lesion on the right spiritism is in an area of previous disease but appears to be a basal cell. 05/29/2023 Hyperlipemia (ICD-10 - E78.5) His lipids have been well controlled. No change in his regimen was needed. His statin therapy was continued. 10/02/2023 Diabetes mellitus (ICD-10 - E11.9) His diabetes and he is compliant with his treatment. No change in his regimen as necessary. 05/29/2023 Overweight (ICD-10 - E66.3) He has lost 2 pounds. His body mass index is 28. We discussed diet and nutrition. We made a plan to lose weight at a rate of 2 pounds a month. 10/02/2023 Vitamin B12 deficiency (ICD-10 - E53.8) Continues on replacement therapy. 05/29/2023 Atrial fibrillation (ICD-10 - I48.91) He is in a sinus rhythm today with a rate of about 80. His cardiovascular status stable.. 10/02/2023 Essential hypertension (ICD-10 - I10) His blood pressure is well controlled today at 121/70 and no change in his regimen was needed. 05/29/2023 Skin cancer (ICD-10 - C44.90) The lesion on the left upper eyelid will be removed June 26, 2023. 10/02/2023 Atrial fibrillation (ICD-10 - I48.91) He is in a sinus rhythm today with a rate of about 80. His cardiovascular status stable.. 05/29/2023 Peripheral vascular disease in diabetes mellitus (ICD-10 - E11.51) He is currently able to conduct all of the activities of daily living without difficulty. He experiences some claudication with prolonged walking. He is seen by vascular surgery at regular intervals. 10/02/2023 Peripheral vascular disease in diabetes mellitus (ICD-10 - E11.51) He is currently able to conduct all of the activities of daily living without difficulty. He experiences some claudication with prolonged walking. He is seen by vascular surgery at regular intervals. 05/29/2023 Former smoker (ICD-10 - Z87.891) He remains abstinent. He oglesby a planned to prevent relapse and times of stress and illness. 10/02/2023 Skin cancer (ICD-10 - C44.90) The lesion on the left upper eyelid will be removed June 26, 2023. 10/02/2023 Former smoker (ICD-10 - Z87.891) He remains abstinent. He oglesby a planned to prevent relapse and times of stress and illness. Plan Of Treatment Pending Test Test Name Order Date PROFILE, FASTING (COMPREHENSIVE METABOLI C) 10/02/2023 PROFILE, FASTING (COMPREHENSIVE METABOLI C) 02/06/2023 PROFILE, FASTING (COMPREHENSIVE METABOLI C) 10/10/2022 PROFILE, RANDOM (COMPREHENSIVE METABOLIC ) 2021 PROFILE, RANDOM (COMPREHENSIVE METABOLIC ) 05/29/2023 PROFILE, RANDOM (COMPREHENSIVE METABOLIC ) 06/18/2019 PROFILE, RANDOM (COMPREHENSIVE METABOLIC ) 06/18/2021 PROFILE, RANDOM (COMPREHENSIVE METABOLIC ) 06/16/2018 PROFILE, RANDOM (COMPREHENSIVE METABOLIC ) 12/13/2016 PROFILE, RANDOM (COMPREHENSIVE METABOLIC ) 06/16/2020 PROFILE, RANDOM (COMPREHENSIVE METABOLIC ) 12/16/2017 PROFILE, RANDOM (COMPREHENSIVE METABOLIC ) 12/17/2019 PROFILE, RANDOM (COMPREHENSIVE METABOLIC ) 05/28/2019 PROFILE, RANDOM (COMPREHENSIVE METABOLIC ) 06/13/2017 LIPID PANEL 10/10/2022 LDH 02/06/2023 LDH 05/28/2019 LDH 06/13/2017 LDH 2021 LDH 05/29/2023 LDH 06/18/2019 LDH 10/10/2022 LDH 06/18/2021 LDH 06/16/2018 LDH 12/13/2016 LDH 06/16/2020 LDH 12/16/2017 LDH 12/17/2019 PSA, TOTAL SCREEN 2021 CBC w DIFF 12/17/2019 CBC w DIFF 02/06/2023 CBC w DIFF 05/28/2019 CBC w DIFF 06/13/2017 CBC w DIFF 06/18/2019 CBC w DIFF 05/29/2023 CBC w DIFF 10/10/2022 CBC w DIFF 2021 CBC w DIFF 06/18/2021 CBC w DIFF 06/16/2018 CBC w DIFF 12/13/2016 CBC w DIFF 06/16/2020 CBC w DIFF 12/16/2017 SED RATE (ESR) 06/16/2020 SED RATE (ESR) 12/17/2019 SED RATE (ESR) 02/06/2023 SED RATE (ESR) 05/28/2019 SED RATE (ESR) 06/18/2019 SED RATE (ESR) 05/29/2023 SED RATE (ESR) 10/10/2022 SED RATE (ESR) 2021 SED RATE (ESR) 06/18/2021 SED RATE (ESR) 06/16/2018 XR CHEST 2 VIEW PA & LAT 12/16/2017 CBC WITH AUTO DIFF 10/02/2023 Lipid Panel 10/02/2023 Lipid Panel 02/06/2023 Vitamin B12 10/02/2023 Microalbumin, Random 10/02/2023 Hemoglobin A1c 10/02/2023 Hemoglobin A1c 02/06/2023 Next Appt Details Provider Name:Dean Parsons, 04/05/2024 09:30:00 AM, [address], [address], [place], [address], Insurance Providers Payer Name Payer Address Payer Phone Subscriber Number Group Number Insured Name Patient Relationship to Insured Coverage Start Date Coverage End Date MEDICARE NGS [address] [place] [phone] [id number] Joel Clayton i Self - patient is the insured FOR [employer] [address] [place] [phone] [id number] Joel Clayton i Self - patient is the insured Medical (General) History Medical History History ICD Code diabetes mellitus hyperlipidemia hypertension cataracts peripheral vascular disease keloid on chest atrial fibrillation 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
--- OUTSIDE RECORDS SUMMARY | 2024-03-26 16:29 | XMS_ITS ---
Author Name [facility] Organization [facility] Address [address] [place] [id number] Care Team Providers Care Supplier Quality Engineer Name Role Phone AJAY APODACA Primary Care [...] PART A Nov 22, 2006 PART A [id number] TONY CASTELLON PATIENT MEDICARE (WNR) MEDICARE (M) PART B Nov 22, 2006 PART B [id number] TONY CASTELLON PATIENT MEDICARE (WNR) MEDICARE (M) PART A Nov 22, 2006 PART A [id number] [phone] TONY CASTELLON PATIENT MEDICARE (WNR) MEDICARE (M) PART B Nov 22, 2006 PART B [id number] TONY CASTELLON PATIENT FOR LIFE TFL* Apr 20, 2014 [id number] SUKHJINDER CASTELLON JR PATIENT Selected Encounter This section includes the information on record at [place] for the Encounter. Date/Time Encounter Type Encounter Description Reason Provider Source Mar 03, 2024 02:00 PM COMPRE OPH EXAM EST PT 1/> OPTOMETRY ICD-10-CM E11.9 Type 2 diabetes mellitus without complications KARSTENJUAN DIEGO Evy Jose Encounter Template Text not used by [place] Assessments - Encounter Diagnoses This section includes the primary and secondary diagnoses documented for the Encounter. 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 SHELLEY,JUAN DIEGO [place] [facility] [place] [facility] Mar 03, 2024 03:56 PM SECONDARY Dry eye syndrome of bilateral lacrimal glands SHELLEY,JUAN DIEGO J [facility] [place] [facility] Mar 03, 2024 03:56 PM SECONDARY Mechanical ectropion of right lower eyelid SHELLEY,JUAN DIEGO [place] [facility] [place] [facility] Mar 03, 2024 03:56 PM SECONDARY Open angle with borderline findings, low risk, bilateral SHELLEY,JUAN DIEGO Evy [facility] [place] [facility] Mar 03, 2024 03:56 PM SECONDARY Presbyopia SHELLEY,JUAN DIEGO [place] [facility] [place] [facility] Mar 03, 2024 03:56 PM SECONDARY Presence of intraocular lens SHELLEY,JUAN DIEGO [place] [facility] [place] Plan of Treatment: Future Appointments (+ 6 months) and Future Tests (+/- 45 days) The Plan of Treatment section includes future care activities for the patient from all [facility]. This section includes future appointments and future orders which are active, pending or scheduled. Future Appointments This section includes appointments that were scheduled to occur 6 months from the date of the Encounter, up to a maximum of 20 appointments. The data comes from all [place] treatment facilities. Appointment Date/Time Appointment Type Appointme nt Facility Name Mar 30, 2024 03:00 PM AMBULATORY - MEDICINE [facility] [place] [facility] Mar 31, 2024 02:30 PM AMBULATORY - MEDICINE [facility] [place] [facility] Apr 07, 2024 08:00 AM AMBULATORY - MEDICINE [facility] [place] [facility] May 17, 2024 02:00 PM AMBULATORY - MEDICINE [facility] [place] [facility] Jul 08, 2024 09:00 AM AMBULATORY - MEDICINE [facility] Active, Pending, and Scheduled Orders This section includes a listing of several types of active, pending, and scheduled orders, including clinic medications orders, diagnostic test orders, procedure orders and consult orders; where the start date of the order is 45 days before the date of the Encounter or 45 days after the date of theEncounter. The data comes from all [place] treatment facilities. Test Date/Time Test Type Test Details Facility Name Mar 26, 2024 12:00 AM Laboratory - Chemistry Order HEMOGLOBIN A1C PANEL BLOOD (LAV-BLOOD) [facility] Mar 26, 2024 12:00 AM Laboratory - Chemistry Order LIPID PANEL FASTING BLOOD (SST-SERUM) [facility] Mar 26, 2024 12:00 AM Laboratory - Chemistry Order MICROALBUMIN CREATININE RATIO PANEL URINE (RANDOM) [facility] Mar 26, 2024 12:00 AM Laboratory - Chemistry Order BASIC METABOLIC PANEL (non-fasting) BLOOD (SST-SERUM) [facility] Social History: Smoking Status (Most current) and Tobacco Use (All prior to encounter date) This section includes the most current, and the historical, smoking and tobacco- related health factors from the AR facility where the Encounter took place. Current Smoking Status This section includes the most current smoking, or tobacco-related health factor, from the AR facility where the Encounter took place. Date/Time Current Smoking Status Comment [facility] Jan 06, 2024 09:30 AM AR-TOBACCO FORMER USER [facility] Tobacco Use History This section includes a history of the smoking, or tobacco-related health factors, that were collected on or before the date of the Encounter. The data comes from the AR facility where the Encounter took place. Date/Time Smoking Status/Tobac co Use Comment Facility Jan 06, 2024 09:30 AM AR-TOBACCO QUIT 15 YRS OR MORE [facility] Dec 24, 2022 10:30 AM VA-TOBACCO FORMER USER [facility] Dec 24, 2022 10:30 AM AR-TOBACCO QUIT 15 YRS OR MORE [facility] Dec 24, 2021 10:00 AM VA-TOBACCO FORMER USER [facility] [place] [facility] Dec 24, 2021 10:00 AM VA-TOBACCO QUIT 5 TO < 15 YRS [facility] [place] [facility] Dec 14, 2020 08:30 AM VA-TOBACCO FORMER USER [facility] [place] [facility] Dec 14, 2020 08:30 AM VA-TOBACCO QUIT 5 TO < 15 YRS [facility] [place] [facility] Nov 15, 2019 11:00 AM VA-TOBACCO FORMER USER [facility] [place] [facility] Nov 15, 2019 11:00 AM VA-TOBACCO QUIT 5 TO < 15 YRS [facility] [place] [facility] Oct 20, 2017 08:19 AM VA-TOBACCO FORMER USER [facility] [place] [facility] Oct 20, 2017 08:19 AM VA-TOBACCO QUIT 5 TO < 15 YRS [facility] [place] [facility] Sep 04, 2017 11:09 AM QUIT TOBACCO USE > 7 YEARS AGO [facility] [place] [facility] Oct 16, 2016 09:08 AM QUIT TOBACCO USE > 7 YEARS AGO [facility] [place] [facility] Feb 20, 2015 10:58 AM QUIT TOBACCO USE > 7 YEARS AGO quit 2009-cigarettes and cigars for 45 years [facility] [place] [facility] Advance Directives: All historical and current Section Date Range: From patient's date of to the date document was created. This section includes ALL of a patient's completed or amended VA Advance and Rescinded Directives. The entries below indicate that a directive exists for the patient, but an actual copy is not included with this document. The data comes from all [place] facilities. Date Advance Directives Provider Source Mar 23, 2014 ADVANCE DIRECTIVE ROSALINDA SHELBY [facility] [place] [facility] Encounter Notes: All associated encounter notes This section contains the clinical notes associated to the Encounter. Date/Time Encounter Note(s) Provider Source Mar 03, 2024 07:56 AM OPTOMETRY NOTE: LOCAL TITLE: OPTOMETRY NOTE STANDARD TITLE: OPTOMETRY NOTE DATE OF NOTE: MAR 03, 2024@07:56 ENTRY DATE: MAR 03, 2024@07:56:35 AUTHOR: LIGIA GODFREYIGNER: JUAN DIEGO SHELLEY URGENCY: STATUS: COMPLETED OPTOMETRY NOTE Has ADDENDA Active problems - Computerized Problem List is the source for the followin. Exposure to potentially hazardous substance ([facility] [id number]) 2. Cardiac pacemaker in situ 3. 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 Outpatient Medications (including Supplies): Active Outpatient Medications Status = 1) ACCU-CHEK GUIDE (GLUCOSE) TEST STRIP USE 1 STRIP TO TEST ACTIVE BLOOD SUGARS THREE TIMES A DAY ON INSULIN Indication: TYPE 2 DIABETES 2) APIXABAN 5MG TAB TAKE ONE-HALF TABLET BY MOUTH TWICE DAILY ACTIVE Indication: FOR PREVENTION OF BLOOD CLOTS 3) GLUCOSE 4GM CHEW TAB CHEW THREE TO FOUR TABLETS BY MOUTH ACTIVE NEEDED FOR LOW BLOOD SUGAR BELOW 70 4) GLUCOSE SENSOR FREESTYLE LINK 2 USE 1 SENSOR DIRECTED HOLD EVERY 14 DAYS 5) GLUCOSE SENSOR FREESTYLE LINK 3 USE 1 SENSOR DIRECTED ACTIVE EVERY 14 DAYS 6) INSULIN,ASPART(EQV-NOVLG)100UN/ ML FLXPEN INJECT DIRECTED ACTIVE SUBCUTANEOUSLY THREE TIMES A DAY 10-14 UNITS BREAKFAST BASED ON MEAL, 7 UNITS NOON, 10 UNITS DINNER. Indication: FOR DIABETES 7) INSULIN,GLARGINE-YFGN 100UNIT/ML PEN 3ML INJECT 13 UNITS ACTIVE SUBCUTANEOUSLY TWICE DAILY Indication: FOR DIABETES 8) LANCET,SOFTCLIX USE 1 LANCET DIRECTED THREE TIMES A DAY ACTIVE TO TEST BLOOD SUGAR Indication: TYPE 2 DIABETES Active Non-VA Medications Status = 1) Non-VA AMIODARONE HCL 200MG TAB 200MG BY MOUTH TWICE DAILY ACTIVE 2) Non-VA ATORVASTATIN CALCIUM 20MG TAB 10MG BY MOUTH ACTIVE 3) Non-VA FENOFIBRATE 54MG TAB 108MG BY MOUTH ONCE DAILY ACTIVE 4) Non-VA FINASTERIDE 5MG TAB 5MG BY MOUTH ONCE DAILY ACTIVE 5) Non-VA FLUTICAS 500/SALMETEROL 50 INHL DISK 60 1 PUFF BY ACTIVE MOUTH ONCE DAILY 6) Non-VA FUROSEMIDE 40MG TAB 40MG BY MOUTH TWICE DAILY ACTIVE 7) Non-VA METOPROLOL TARTRATE 25MG TAB 12.5MG BY MOUTH TWICE ACTIVE DAILY 8) Non-VA TERAZOSIN HCL 5MG CAP 5MG BY MOUTH ONCE DAILY ACTIVE 16 Total Medications Allergies: Patient has answered NKA All medications including those prescribed by outside VA's, community providers, and all OTC meds were reviewed and reconciled with patient to the best of their abilities. This 83 year old MALE is seen today for annual DIABETIC CEE KURT: 04/12/22 Chief Complaint: Complains of burning sensation/tearing in the eyes. He reported to use Refresh 1-2x per day everyday. 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 The diagnosed was made by non-VA provider. Next youth leader appointment is 05/18. Diabetic x34 years Last A1C: 8.1 OHx: 1. 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 Pseudophakia OU 4. Shelter use of Amiodarone without ocular complications OU 5. Ectropion OD - Pt repored never had blepharoplasty done to adress this issue 6. KATERIN OU Ocular Medications: Refresh 1-2 per day every day (-) Pain: (-) YORK: (-) Diplopia: (-) Flashes: (+) Floaters: Longstanding (-) Amaurosis Fugax/Tia's: (-) Eye Injury: (+) Eye Surgery: CE with PCIOL OU; blepharoplasty 20yrs ago. H/o sx in the face to remove cancer by Dr. Medina (-) TBI FOHx: (+) Glaucoma: Mother (-) ARMD/Blindness VITALS (most recent, as listed in the electronic record): B/P: 132/74 (01/06/2024 15:45) Pulse: 78 (01/06/2024 09:24) Temperature: 97.6 F [36.4 C] (01/06/2024 09:24) Weight: 180 lb [81.65 kg] (01/06/2024 09:24) Height: 66 in [167.6 cm] (11/13/2023 09:26) BMI: BMI: 29.1 PERTINENT LABS: HEMOGLOBIN A1C TREND Collection DT Spec HGBA1c 11/05/2023 07:31 BLOOD 8.1 H 08/06/2023 07:31 BLOOD 7.7 H 05/05/2023 07:48 BLOOD 7.2 H 01/03/2023 09:54 BLOOD 7.8 H 10/01/2022 09:40 BLOOD 7.8 H (-) Smoker/Length of Time/PPD: quit 20 years ago Current Rx with last BCVA: OD: +0.50-1.50 x096 20/20 OS: +0.25-1.50 x086 20/20 Add:+2.75 20/20 DVA ( )sc ( x )cc - phoropter OD: 20/20 OS: 20/20 Pupils: PERRL (-)APD EOMs: SAFE OU, (-)Pain/Diplopia CVF (facial, peripheral): FTFC OU Subjective Refraction: OD: +0.50-1.50 x096 20/20 OS: +0.25-1.50 x086 20/20 Add:+2.75 20/20 All the above performed by student, reviewed by attending Anterior segment: Performed by student, repeated by attending Lids: Mild ectropion of the right lower lid nasally Trc blepharitis OU Conj: white and quiet OU Cornea: Trace SPKs OU; cataract removal incision temporally OU (-)k spindle OU AC: D&Q OU Angles: 4x4 OU Iris: flat and clear (-)NVI/TID OU Lens: PCIOL well-centered and clear OU (-)PXF OU Tonometry: Performed by student, reviewed by attending [ ] GAT [ x]Brown OD 09 mmHg OS 09 mmHg Time:14:10 Last IOP OD: 09 OS: 09 Pachymetry: OD: 570 OS: 604 Fundus exam: Dilated: xxxx Non dilated: Dilating Drops: 1GTT 1 % Tropicamide OU & 1GTT 2.5% Phenylephrine OU (Pt. ed. on side effects, dilation warning given and verbal consent obtained) Patient advised not to drive if they feel they have any symptoms which could affect their ability to drive safely. Patient advised not to engage in any activities which could put themselves or others at risk if they feel they have any symptoms which could affect their ability to perform those activities safely. Performed by student, repeated by attending Vit: clear OU C/D: 0.55 OD and 0.50 OS pink & healthy rim tissue,(-)Drance heme (-)NVD OU Macula: flat and clear (-)CSME OU PPole: clear (-)NVE (-)dot/blot hemorrhage (-)exudates A/V: 2/3 Vessels: normal caliber (-)VB OU Periph: flat and intact (-)NVE, holes, tears, detachments 360 OU Assessment/Plan: 1.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 Last A1c 8.1 - Pt ed on today's findings and the possible ocular health and visual complications associated with diabetes as well as importance of attending follow up appts - Encouraged pt to monitor blood sugar and continue taking medications as prescribed by their PCP - Pt ed to call immediately if experiencing any sudden changes in vision - Monitor annually 2. Low risk open-angle glaucoma suspect OU. Moderate cupping with thicker than average CCT. No evidence of pigment dispersion or pseudoexfoliation OU. (+) family history of glaucoma (Mother). No change in ONH appearance. Low index of suspicion at present. Longstanding stability. - IOP today: 09/09mmHg - Pachymetry: 570/604um - Imaging taken today: RNFL OCT stable compared to previous scans - Pt ed re today's findings - Pt ed re glaucoma as well as the natural history of this diagnosis including prognosis. - Stress importance of continued follow-up appointments - RTC 1yr with repeated imaging if raised suspicion 3. Pseudophakia OU - PCIOLs appear well centered and stable today - Pt. ed. on findings - Monitor 4. Shelter use of Amiodarone without ocular complications OU - Monitor 5. 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 Next schedule appointment is 04/2024 - Monitor 6. 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 Dry eyes OU; symptomatic - Pt. ed. on todays findings - Ordering Refresh - Ed. pt. to use BID-QID OU even on days when eyes are not feeling dry - Monitor 8. Regular astigamtism and presbyopia OU - Stable - Pt deferred getting glasses today - Monitor Return to Clinic 1yr or earlier PRN Patient Education: Diabetes: Patient was educated regarding diabetes and related ocular complications including retinopathy and cataract formation as well as other related systemic complications. The importance of good blood sugar control, blood sugar testing as recommended by their PCP and the importance of timely follow up were all emphasized. Glaucoma: Patient was educated regarding glaucoma/glaucoma suspect as well as the natural history of this diagnosis including prognosis.Stress importance of compliance and persistency with glaucoma medication when prescribed, timely follow up as well as the role of ancillary testing. Exclusion criteria for ancillary testing include significantly reduced acuity, mental status changes affecting the patient's ability to attend to the test or other physical limitations that would prohibit the patient's ability to participate in testing. Medication Reconciliation: Outpatient: Has the patient been taking medications as documented in the EMLR? YES: The patient has been taking medications as documented in the EMLR. Essential Medication List for Review used to complete this medication reconciliation. INCLUDED IN THIS LIST: Alphabetical list of active outpatient prescriptions dispensed from this VA (local) and dispensed from another [place] or [facility] facility (remote) as well as inpatient orders [...] whether with a VA or non-VA provider. Medication List: JLV Link Data on this list may not be complete. Please check JLV. Allergies/ADRs (Tool #5) FACILITY ALLERGY/ADR -------- No Remote Allergy/ADR Data available for this patient [facility] No Known Allergies Med. Reconciliation (Tool #1) INCLUDED IN THIS LIST: Alphabetical list of active outpatient prescriptions dispensed from this VA (local) and dispensed from another AR or [facility] facility (remote) as well as inpatient orders (local pending and active), local clinic medications, locally documented non-VA medications, and local prescriptions that have or been discontinued in the past 90 days. Non-VA Meds Last Documented On: August 13, 2023 NOTE The display of VA prescriptions dispensed from another AR or [facility] facility (remote) is limited to active outpatient prescription entries matched to National Drug File at the originating site and may not include some items such as investigational drugs, compounds, etc. NOT INCLUDED IN THIS LIST: Medications self-entered by the patient into personal health records (i.e. [employer]) are NOT included in this list. Non-VA medications documented outside this AR, remote inpatient orders (regardless of status) and remote clinic medications are NOT included in this list. The patient and provider must always discuss medications the patient is taking, regardless of where the medication was dispensed or obtained. Non-VA AMIODARONE HCL 200MG TAB TAKE ONE TABLET BY MOUTH TWICE DAILY OUTPT APIXABAN 5MG TAB (Status = Discontinued) TAKE ONE-HALF TABLET BY MOUTH TWICE DAILY FOR PREVENTION OF BLOOD CLOTS Rx# [id number] Last Released: 01/06/23 Qty/Days Supply: Rx Expiration Date: 12/25/23 Refills Remainin Indication: FOR PREVENTION OF BLOOD CLOTS OUTPT APIXABAN 5MG TAB (Status = Active) TAKE ONE-HALF TABLET BY MOUTH TWICE DAILY FOR PREVENTION OF BLOOD CLOTS Rx# [id number] Last Released: 02/17/24 Qty/Days Supply: 180/90 Rx Expiration Date: 02/10/25 Refills Remainin Indication: FOR PREVENTION OF BLOOD CLOTS Non-VA ATORVASTATIN CALCIUM 20MG TAB TAKE ONE-HALF TABLET BY MOUTH OUTPT CARBOXYMETHYLCELLULOSE NA 0.5% OPH SOLN (Status = ) INSTILL 1 DROP INTO EACH EYE TWICE DAILY Rx# [id number] Last Released: 04/04/23 Qty/Days Supply: Rx Expiration Date: 01/10/24 Refills Remainin OUTPT CARBOXYMETHYLCELLULOSE NA 0.5% OPH SOLN (Status = Pending) INSTILL ONE DROP INTO EACH EYE FOUR TIMES A DAY Login Date: 03/03/24 Qt/Days Supply: Refills Ordered: 3 Non-VA FENOFIBRATE 54MG TAB TAKE TWO TABLETS [...] FOR LOW BLOOD SUGAR BELOW 70 Rx# [id number] Last Released: 10/24/23 Qt Supply: Rx Expiration Date: 08/20/24 Refills Remainin OUTPT INSULIN,ASPART(EQV-NOVLG)100UN/ ML FLXPEN (Status = Discontinued) INJECT DIRECTED SUBCUTANEOUSLY THREE TIMES A DAY 8 UNITS FOR EGGS, 12 UNITS FOR CEREAL AM, 5 UNITS NOON, 9 UNITS DINNER Rx# [id number] Last Released: 11/17/23 Qty/Days Supply: Rx Expiration Date: 11/13/24 Refills Remainin Indication: FOR DIABETES OUTPT INSULIN,ASPART(EQV-NOVLG)100UN/ ML FLXPEN (Status = Discontinued) INJECT DIRECTED SUBCUTANEOUSLY THREE TIMES A DAY 9 UNITS FOR EGGS, 15 UNITS FOR CEREAL BREAKFAST, 7 UNITS NOON, 10 UNITS DINNER Rx# [id number] Last Released: Supply: Rx Expiration Date: 02/24/25 Refills Remainin Indication: FOR DIABETES OUTPT INSULIN,ASPART(EQV-NOVLG)100UN/ ML FLXPEN (Status = Active) INJECT DIRECTED SUBCUTANEOUSLY THREE TIMES A DAY 10-14 UNITS BREAKFAST BASED ON MEAL, 7 UNITS NOON, 10 UNITS DINNER. Rx# [id number] Last Released: 02/26/24 Qty/Days Supply: Rx Expiration Date: 02/25/25 Refills Remainin Indication: FOR DIABETES OUTPT INSULIN,GLARGINE-YFGN 100UNIT/ML PEN 3ML (Status = Discontinued) INJECT 10 UNITS SUBCUTANEOUSLY TWICE DAILY Rx# [id number] Last Released: Supply: Rx Expiration Date: 08/13/24 Refills Remainin Indication: FOR DIABETES OUTPT INSULIN,GLARGINE-YFGN 100UNIT/ML PEN 3ML (Status = Active) INJECT 13 UNITS SUBCUTANEOUSLY TWICE DAILY Rx# [id number] Last Released: 03/01/24 Qt Supply: Rx Expiration Date: 02/25/25 Refills Remainin Indication: FOR DIABETES OUTPT LIDOCAINE 5% OINT (Status = ) APPLY LIBERAL AMOUNT TOPICALLY TWICE DAILY NEEDED FOR NEUROPATHY PAIN Rx# [id number] Last Released: 08/23/23 Qt Supply: Rx Expiration Date: 12/17/23 Refills Remainin Indication: NEUROPATHY PAPIN Non-VA METOPROLOL TARTRATE 25MG TAB TAKE ONE-HALF TABLET BY MOUTH TWICE DAILY Non-VA TERAZOSIN HCL 5MG CAP TAKE 1 CAPSULE BY MOUTH ONCE DAILY SUPPLIES OUTPT ACCU-CHEK GUIDE (GLUCOSE) TEST STRIP (Status = Active) USE 1 STRIP TO TEST BLOOD SUGARS THREE TIMES A DAY TYPE 2 DIABETES ON INSULIN Rx# [id number] Last Released: 01/20/24 Qt Supply: Rx Expiration Date: 01/13/25 Refills Remainin Indication: TYPE 2 DIABETES OUTPT ACCU-CHEK GUIDE ME (GLUCOSE) METER (Status = ) USE METER TO TEST BLOOD SUGARS THREE TIMES A DAY TYPE 2 DIABETES Rx# [id number] Last Released: Supply: 04/22 Rx Expiration Date: 02/12/24 Refills Remainin Indication: TYPE 2 DIABETES OUTPT GLUCOSE SENSOR FREESTYLE LINK 2 (Status = On Hold) USE 1 SENSOR DIRECTED EVERY 14 DAYS Rx# [id number] Last Released: 11/20/23 Qty/Days Supply: 05/21 Rx Expiration Date: 11/13/24 Refills Remainin OUTPT GLUCOSE SENSOR FREESTYLE LINK 3 (Status = Discontinued) USE 1 SENSOR DIRECTED EVERY 14 DAYS Rx# [id number] Last Released: 01/07/24 Qty/Days Supply: 05/21 Rx Expiration Date: 11/14/24 Refills Remainin OUTPT GLUCOSE SENSOR FREESTYLE LINK 3 (Status = Discontinued) USE 1 SENSOR DIRECTED EVERY 14 DAYS Rx# [id number] Last Released: Qty/Days Supply: 05/21 Rx Expiration Date: 02/23/25 Refills Remainin OUTPT GLUCOSE SENSOR FREESTYLE LINK 3 (Status = Active) USE 1 SENSOR DIRECTED EVERY 14 DAYS Rx# [id number] Last Released: Qty/Days Supply: 05/21 Rx Expiration Date: 02/24/25 Refills Remainin OUTPT LANCET,SOFTCLIX (Status = Active) USE 1 LANCET DIRECTED THREE TIMES A DAY TO TEST BLOOD SUGAR Rx# [id number] Last Released: 01/20/24 Qty/Days Supply: 300/90 Rx Expiration Date: 01/13/25 Refills Remainin Indication: TYPE 2 DIABETES PHARMACY TERMS AND POSSIBLE PATIENT ACTIONS INPT = AR inpatient order IV = VA intravenous medication OUTPT = AR outpatient prescription PHARMACY POSSIBLE PATIENT TERMS EXPLANATION ACTIONS -------- - ACTIVE A prescription that can be If you have refills, filled at the local AR pharmacy. you may request a refill of this prescription from your AR pharmacy. CLINIC A medication you received during If you have questions a visit to a AR clinic or about this medication emergency department. contact your AR healthcare team. DISCONTINUED A prescription your provider has Contact your AR stopped. It is no longer healthcare team if you available to be sent to you or need more of this picked up at the VA pharmacy medication. window. A prescription which is too old Contact your VA to fill. This does not refer to healthcare team if you the expiration date of the need more of this medication in the container. medication. NON-VA A medication that came from If this medication someplace other than a VA information is pharmacy. This may be a incorrect or out of prescription from either the VA date, please tell your or non VA providers that was VA healthcare team. filled outside the VA. Or, it may be an jocm-orq-eyxdfco (OTC), herbal, dietary supplements or sample medication. ON HOLD An active prescription that will Contact your VA not be filled until pharmacy pharmacy when you need resolves the issue. more of this medication. PARKED An active prescription that will Contact your VA not be filled until the patient pharmacy when you need requests it. this medication. PENDING This prescription order has been If you have been sent to the pharmacy for review instructed to start and is not ready yet. this medication now, contact your VA pharmacy. SUSPENDED An active prescription that is Contact your VA not scheduled to be filled yet. pharmacy if you need You should receive it before this medication now. you run out. ==== (x) Printed Medication Reconciliation List Offered and Declined by [facility] () Medication Reconciliation List Printed for [facility] at [facility] () Optometry HT Please Print and Mail Copy of Medication Reconciliation List () AMSA Please Print and Mail Copy of Medication Reconciliation List /es/ LIGIA GODFREY OPTOMETRY STUDENT Signed: 03/03/2024 16:01 /jus/ JUAN DIEGO SHELLEY OD HAND SOLE SEWER Cosigned: 03/03/2024 16:02 03/03/2024 ADDENDUM STATUS: COMPLETED The optometry electrical engineering intern participated in this exam, I saw this in conjunction with the optometry student. The entrance tests and refraction were performed by the student and reviewed by me. I personally met with the patient, confirmed the hisory, complaints and the student's findings, and performed slit lamp and fundus evaluation as indicated. I reviewed and agree with the stated findings, assessment and plan. I have added/edited the documentation to reflect my exam findings and changes to the assessment and plan. Ed re today's findings. Garrison repeated back the plan and education. All reminders completed by attending and documented in student note. /jus/ JUAN DIEGO SHELLEY OD HAND SOLE SEWER Signed: 03/03/2024 16:02 LIGIA GODFREY AR CNTRL [facility]
[2024-03-26 16:49] LABS: Anion Gap 13 (12-20); Blood Urea Nitrogen 63 mg/dL (9-16); Calcium 8.6 mg/dL (8.4-10.2); Carbon Dioxide 23 mmol/L (22-29); Chloride 104 mmol/L (96-108); Estimated Glomerular Filt Rate 36; Glucose Random 165 mg/dL (60-115); Potassium 4.5 mmol/L (3.3-5.1); Sodium 135 mmol/L (135-145)
[2024-03-26 17:14] LABS: Alanine Aminotransferase 149 U/L (0-40); Alkaline Phosphatase 78 U/L (39-117); Anion Gap 12 (12-20); Aspartate Amino Transferase 96 U/L (5-37); Bilirubin Total 0.4 mg/dL (0.0-1.0); Blood Urea Nitrogen 60 mg/dL (9-16); Calcium 8.3 mg/dL (8.4-10.2); Carbon Dioxide 21 mmol/L (22-29); Chloride 105 mmol/L (96-108); Estimated Glomerular Filt Rate 37; Glucose Random 164 mg/dL (60-115); Potassium 4.4 mmol/L (3.3-5.1); Sodium 134 mmol/L (135-145); Total Protein 6.6 g/dL (6.5-8.0)
[2024-03-29 12:58] LABS: Prot Elec - Alpha1 0.3 g/dL (0.2-0.3); Prot Elec - Alpha2 0.8 g/dL (0.5-0.9); Prot Elec - Beta 1 0.5 g/dL (0.4-0.6); Prot Elec - Beta 2 0.5 g/dL (0.2-0.5); Prot Elec - Gamma 1.5 g/dL (0.8-1.7); Prot Elec - Total Protein 6.5 g/dL (6.1-8.1)
[2024-03-31 07:34] LABS: PEU-Protein Creat Ratio Rand NOTE (0.025-0.148); PEU-Rand. Prot/Creat Ratio NOTE mg/g creat (25-148); PEU-Random Ur. Gamma Globulin 0 %; PEU-Random Urine A1 Globulin 0 %; PEU-Random Urine A2 Globulin 0 %; PEU-Random Urine Albumin 0 %; PEU-Random Urine Beta Globulin 0 %; PEU-Random Urine Creatinine 44 mg/dL (20-320); PEU-Random Urine Protein <4 mg/dL (5-25)
[2024-03-31 12:03] LABS: IgA 718 mg/dL (70-320); IgG 2269 mg/dL (600-1540); IgM 601 mg/dL (50-300)
[2024-04-01 15:39] LABS: Kappa, Serum 382 mg/dL (176-443); Kappa/Lambda Ratio, Serum 1.68 (1.29-2.55); Lambda, Serum 228 mg/dL (91-240)
== END 2024-03-26 15:12 | disposition home or self-care (01) ==
LOC: HO.LAB 15:11
PROVIDERS: Absent Provider Internal Medicine Cardiovascular Disease; PCP Internal Medicine; Visit Provider Internal Medicine
DX: I10 Essential (primary) hypertension (principal); E11.9 Type 2 diabetes mellitus without complications; N18.9 Chronic kidney disease, unspecified
CPT/HCPCS: 36415; 80048; 80053; 82570; 82784; 83036; 83883; 84156; 84165; 84166; 85025; 86334

== ENCOUNTER 2024-04-14 07:11 | Outpatient (REF) | payer MEDICARE, OTHER, SELFPAY ==
--- NOTE | ~2024-04-14 | XR_ITS ---
EXAMINATION: XR CHEST CLINICAL INFORMATION: COPD COMPARISON: None available. TECHNIQUE: 2 views of the chest were obtained. FINDINGS: The lungs are well-expanded and clear acute process. The heart size and pulmonary vascularity is normal. There are dual pacer electrodes in right atrium and right ventricle. There is a aortic valve stent plate in place. No gross bony abnormality seen XR/XR chest 2V IMPRESSION: Unremarkable chest exam Electronically signed by: Familia Coronado MD 04/14/2024 08:33 AM EST
[2024-04-14 07:40] LABS: MANUAL DIFF FLAG NO
[2024-04-14 08:06] LABS: Estimated Average Glucose 189 mg/dL; Hemoglobin A1C 182.2241 umol/L; Hemoglobin A1c % 8.2 % (<6.0); Total Hemoglobin (HGBA1C) 2757.3313 umol/L
[2024-04-14 08:11] LABS: Basophils Percent Auto 0.4 % (0-2); Eosinophils Percent Auto 0.7 % (0-4); Hemoglobin 10.9 g/dl (14.0-18.0); Imm Gran Abs Auto 0.03 X10*3/uL (0.00-0.03); Imm Gran Pct Auto 0.7 % (0.0-0.4); Lymphocytes Absolute Auto 0.9 X10*3/uL (1.2-4.9); Lymphocytes Percent Auto 20.4 % (20-40); Mean Corpuscular HGB Conc 32.1 g/dl (31.0-36.0); Mean Corpuscular Volume 96.6 fL (80.0-98.0); Mean Platelet Volume 10.7 fL (9.4-12.4); Monocytes Absolute Auto 0.6 X10*3/uL (0.1-1.2); Monocytes Percent Auto 13.4 % (2-11); Neutrophils Absolute Auto 2.9 x10*3/uL (2.0-8.3); Neutrophils Percent Auto 64.4 % (45-73); Platelet Count 210 X10*3/uL (160-400); Red Blood Count 3.52 X10*6/uL (4.60-5.80); Red Cell Distribution Width 16.3 % (11.0-16.0); White Blood Count 4.6 X10*3/uL (4.8-10.8)
[2024-04-14 08:15] LABS: Alanine Aminotransferase 55 U/L (0-40); Albumin Level 3.2 g/dL (3.5-5.0); Alkaline Phosphatase 70 U/L (39-117); Anion Gap 14 (12-20); Aspartate Amino Transferase 62 U/L (5-37); Bilirubin Total 0.5 mg/dL (0.0-1.0); Blood Urea Nitrogen 47 mg/dL (9-16); Calcium 9.1 mg/dL (8.4-10.2); Carbon Dioxide 21 mmol/L (22-29); Chloride 104 mmol/L (96-108); Cholesterol 129 mg/dL (<200); Estimated Glomerular Filt Rate 30; Glucose Fasting 209 mg/dL (60-99); HDL Cholesterol 38 mg/dL (>40); LDL Cholesterol Calculated 70 mg/dL (<100); Potassium 4.1 mmol/L (3.3-5.1); Sodium 135 mmol/L (135-145); Total Protein 7.3 g/dL (6.5-8.0); Triglycerides 106 mg/dL (<150)
[2024-04-14 08:38] LABS: Creatinine Urine 45.72 mg/dL; Microalbumin Urine < 5.0 mg/L
[2024-04-14 08:48] LABS: Vitamin B12 725 pg/mL (200-900)
== END 2024-04-14 07:12 | disposition home or self-care (01) ==
LOC: HO.XRAY 07:11
PROVIDERS: Absent Provider Internal Medicine; PCP Internal Medicine; Visit Provider Internal Medicine Medical Oncology
DX: J44.9 Chronic obstructive pulmonary disease, unspecified (principal); Z95.0 Presence of cardiac pacemaker; E11.22 Type 2 diabetes mellitus with diabetic chronic kidney disease; N18.9 Chronic kidney disease, unspecified; E66.3 Overweight; E53.8 Deficiency of other specified B group vitamins
CPT/HCPCS: 36415; 71046; 80053; 80061; 82043; 82570; 82607; 83036; 85025

== ENCOUNTER → 2024-04-14 07:45 | Outpatient (BNV) | payer MEDICARE, OTHER, SELFPAY | PROVIDERS: Absent Provider Internal Medicine; PCP Internal Medicine; Visit Provider Radiology Diagnostic Radiology | DX: J44.9 Chronic obstructive pulmonary disease, unspecified (principal) | CPT/HCPCS: 71046 ==

== ENCOUNTER 2024-07-20 08:13 | Outpatient (REF) | payer MEDICARE, OTHER, SELFPAY ==
--- OUTSIDE RECORDS SUMMARY | 2024-07-20 08:30 | XMS_ITS | Encounter Summary ---
Author Name [facility] [facility] [place] [facility] [facility] [place] Address [address] [place] [id number] Care Team Providers Care Analytical Lab Technician Name Role Phone ABAD RUSSELL Primary Care [...] Policy Gerber MEDICARE (WNR) MEDICARE (M) PART B Nov 22, 2006 PART B [id number] TONY LOGAN PATIENT MEDICARE (WNR) MEDICARE (M) PART A Nov 22, 2006 PART A [id number] TONY LOGAN PATIENT MEDICARE (WNR) MEDICARE (M) PART A Nov 22, 2006 PART A [id number] TONY LOGAN PATIENT MEDICARE (WNR) MEDICARE (M) PART B Nov 22, 2006 PART B [id number] TONY LOGAN PATIENT FOR LIFE TFL* Apr 20, 2014 [id number] SUKHJINDER LOGAN JR PATIENT Selected Encounter This section includes the information on record at [place] for the Encounter. Date/Time Encounter Type Encounter Description Reason Provider Source Apr 27, 2024 03:00 PM DIAB MANAGE TRN [facility] ICD-10-CM E11.8 Type 2 diabetes mellitus with unspecified complications ROBB ROSAS [facility] Encounter Template Text not used by [place] Assessments - Encounter Diagnoses This section includes the primary and secondary diagnoses documented for the Encounter. Date/Time Primary/Secondary Diagnosis Diagnosis Name Provider Source Apr 27, 2024 04:32 PM PRIMARY Type 2 diabetes mellitus with unspecified complications ROBB ROSAS [facility] [place] [facility] Plan of Treatment: Future Appointments (+ 6 months) and Future Tests (+/- 45 days) The Plan of Treatment section includes future care activities for the patient from all [place] [facility]. This section includes future appointments and future orders which are active, pending or scheduled. Future Appointments This section includes appointments that were scheduled to occur 6 months from the date of the Encounter, up to a maximum of 20 appointments. The data comes from all [place] treatment facilities. Appointment Date/Time Appointment Type Appointme nt Facility Name May 05, 2024 11:30 AM AM[place]ULATORY [place]IC[place] [facility] [place] [facility] May 17, 2024 02:00 PM AM[place] [facility] [place] [facility] Jul 08, 2024 09:00 AM [place] [facility] [place] [facility] Jul 13, 2024 11:30 AM AM[place] [facility] [place] [facility] July 26, 2024 03:00 PM [place] [facility] [place] [facility] Aug 25, 2024 01:30 PM [place] [facility] [place] [facility] Oct 20, 2024 03:00 PM AMBULATORY - MEDICINE [facility] [place] [place] [facility] Lab Results: +/- 30 days of the encounter This section includes the Chemistry and Hematology Lab Results on record with [place] for the patient. Radiology Reports and Pathology Reports are provided separately, in subsequent sections. Lab Results This section contains the Chemistry/Hematology Results that were resulted 30 days before or 30 daysafter the date of the Encounter. Date/Time Source Result Type Result - Unit Interpretation Reference Range Specimen Type Comment Mar 29, 2024 08:38 AM [place] [facility] HEMOGLOBIN A1C PANEL BLOOD Specimen Type: BLOOD Comment: Values obtained from A1C measurements can vary. For atypical A1C assays, a reported value of 7.0 could actually be between 6.72 and 7.28 if measured by a reference method. A reported value of 9.0 could actually be between 8.73 and 9.27. Ref: http://www.ngsp .org/CAPdata.as p Ordering Provider: MIAH BUTTS Report Released Date/Time: Feb 24, 2024 02:53 PM Reporting Lab: [facility] [address] [facility] [address] Performing Lab: [address] [address] HEMOGLOBIN A1C 8.1 H 4.0-5.6 Mar 29, 2024 08:38 AM [facility] MICROALBUMIN CREATININE RATIO PANEL URINE Spe cimen Type: URINE No comment entered. Ordering Provider: MIAH BUTTS Report Released Date/Time: Feb 24, 2024 02:53 PM Reporting Lab: [facility] [address] [facility] [address] Performing Lab: [facility] [address] [facility] [address] MICROALBUMIN/CREATININE RATIO 8.8 mg/g 0 -29.9 MICROALBUMIN,QUANTITATIVE 0.5 mg/dL RR U NAVAIL CREATININE URINE 57.04 mg/dL Mar 29, 2024 08:38 AM [facility] LIPID PANEL FASTING SERUM Specimen Type: SERU M No comment entered. Ordering Provider: MIAH BUTTS Report Released Date/Time: Feb 24, 2024 02:53 PM Reporting Lab: [facility] [address] [facility] [address] Performing Lab: [address] [address] CHOLESTEROL 99 mg/dL TRIGLYCERIDE 78 mg/dL 0-150 LDL calculated 47 mg/dL 0-129 CHOL/HDL 2.8 HDL CHOLESTEROL 36 mg/dL L 40-60 Mar 29, 2024 08:38 AM [facility] BASIC METABOLIC PANEL (non-fasting) SERUM Spe cimen Type: SERUM No comment entered. Ordering Provider: MIAH BUTTS Report Released Date/Time: Feb 24, 2024 02:53 PM Reporting [facility] [address] [facility] [address] Per[facility]: [facility] [address] [facility] [address] UREA NITROGEN 52 mg/dL H 7-25 GLUCOSE 131 mg/dL H 65-100 SODIUM 138 mmol/L 135-145 POTASSIUM 4.1 mmol/L 3.5-5.0 CHLORIDE 104 mmol/L 100-110 CO2 24 meq/L 20-30 CREATININE, Serum 1.78 mg/dL H 0.50-1.40 eGFR(CKD-EPI 2020) 37 mL/min L >60 Social History: Smoking Status (Most current) and Tobacco Use (All prior to encounter date) This section includes the most current, and the historical, smoking and tobacco- related health factors from the [place] facility where the Encounter took place. Current Smoking Status This section includes the most current smoking, or tobacco-related health factor, from the [place] facility where the Encounter took place. Date/Time Current Smoking Status Comment [facility] Jan 06, 2024 09:30 AM [facility]ACCO [facility] Tobacco Use History This section includes a history of the smoking, or tobacco-related health factors, that were collected on or before the date of the Encounter. The data comes from the [place] facility where the Encounter took place. Date/Time Smoking Status/Tobac co Use Comment Facility Jan 06, 2024 09:30 AM VA-TOBACCO QUIT 15 YRS OR MORE [place] [facility] [place] [facility] Dec 24, 2022 10:30 AM VA-TOBACCO FORMER USER [place] [facility] [place] [facility] Dec 24, 2022 10:30 AM VA-TOBACCO QUIT 15 YRS OR MORE [place] [facility] [place] [facility] Dec 24, 2021 10:00 AM VA-TOBACCO FORMER USER [place] [facility] [place] [facility] Dec 24, 2021 10:00 AM VA-TOBACCO QUIT 5 TO < 15 YRS [place] [facility] [place] [facility] Dec 14, 2020 08:30 AM VA-TOBACCO FORMER USER [place] [facility] [place] [facility] Dec 14, 2020 08:30 AM VA-TOBACCO QUIT 5 TO < 15 YRS [place] [facility] [place] [facility] Nov 15, 2019 11:00 AM VA-TOBACCO FORMER USER [place] [facility] [place] [facility] Nov 15, 2019 11:00 AM VA-TOBACCO QUIT 5 TO < 15 YRS [place] [facility] [place] [facility] Oct 20, 2017 08:19 AM VA-TOBACCO FORMER USER [place] [facility] [place] [facility] Oct 20, 2017 08:19 AM VA-TOBACCO QUIT 5 TO < 15 YRS [place] [facility] [place] [facility] Sep 04, 2017 11:09 AM QUIT TOBACCO USE > 7 YEARS AGO [place] [facility] [place] [facility] Oct 16, 2016 09:08 AM QUIT TOBACCO USE > 7 YEARS AGO [facility] Feb 20, 2015 10:58 AM QUIT TOBACCO USE > 7 YEARS AGO quit 2009-cigarettes and cigars for 45 years [facility] Advance Directives: All historical and current Section Date Range: From patient's date of to the date document was created. This section includes ALL of a patient's completed or amended [place] Advance and Rescinded Directives. The entries below indicate that a directive exists for the patient, but an actual copy is not included with this document. The data comes from all [place] facilities. Date Advance Directives Provider Source Mar 23, 2014 ADVANCE DIRECTIVE ROSALINDA SHELBY [facility] Encounter Notes: All associated encounter notes This section contains the clinical notes associated to the Encounter. Date/Time Encounter Note(s) Provider Source Apr 27, 2024 03:18 PM DIABETOLOGY EDUCATION NOTE: LOCAL TITLE: DIABETES EDU FOLLOW UP STANDARD TITLE: DIABETOLOGY EDUCATION NOTE DATE OF NOTE: APR 27, 2024@15:18 ENTRY DATE: APR 27, 2024@15:18:15 AUTHOR: DOUGLAS ROSAS COSIGNER: URGENCY: STATUS: COMPLETED FOLLOW UP DIABETES EDUCATION VISIT Demographics: Patient Name: TONY LOGAN JR Age: 83 Sex: MALE Race: WHITE MARITAL STATUS - Introduction: identified with 2 identifiers: [X] Full Name [X] Date of [ ] Address [ ] VA ID Card PATIENT PHONE - PHONE NUMBER [CELLULAR] - Is patient phone number correct, if not, enter below: [place]'s phone number: TONY LOGAN JR [address] [facility] [address] [place], [place], [address] MOST RECENT LABS: HEMOGLOBIN A1C TREND Collection DT Spec HGBA1c 03/29/2024 08:38 BLOOD 8.1 H 11/05/2023 07:31 BLOOD 8.1 H 08/06/2023 07:31 BLOOD 7.7 H 05/05/2023 07:48 BLOOD 7.2 H 01/03/2023 09:54 BLOOD 7.8 H CHEM 7 TREND LAB CUMULATIVE SELECTED Collection DT Spec GLUCOSE BUN CREATIN Sodium K+/Pot CL CO2 03/29/2024 08:38 SERUM 131 H 52 H 1.78 H 138 4.1 104 24 01/29/2024 09:49 SERUM 1.86 H 11/11/2023 09:05 SERUM 412 H 39 H 1.99 H 132 L 4.6 101 19 L 11/05/2023 07:31 SERUM 198 H 49 H 2.33 H 135 4.5 102 20 08/06/2023 07:31 SERUM 230 H 31 H 1.67 H 136 4.2 103 21 LAB CUMULATIVE SELECTED 2 No selection items chosen for this component. CHEM 7 Results Collection DT Spec Sodium K+/Pot CL CO2 GLUCOSE BUN 03/29/2024 08:38 SERUM 138 4.1 104 24 131 H 52 H 11/11/2023 09:05 SERUM 132 L 4.6 101 [...] Spec CHOL HDL CHO/HDL LDL-d LDL-c TRIG 03/29/2024 08:38 SERUM 99 36 L 2.8 47 78 11/05/2023 07:31 SERUM 140 49 2.9 72 94 05/05/2023 07:48 SERUM 86 31 L 2.8 40 74 06/19/2022 07:36 SERUM 119 33 L 3.6 61 126 12/24/2021 09:37 SERUM 146 38 L 3.8 76 161 H CREATININE-EGFR 03/29/24 08:38 1.78 H 01/29/24 09:49 1.86 H 11/11/23 09:05 1.99 H EGFR - NONE FOUND WEIGHT: 180 lb [81.65 kg] (01/06/2024 09:24) HEIGHT: 66 in [167.6 cm] (11/13/2023 09:26) BMI: 29.1 REASON FOR EDUCATION VISIT TODAY: Diagnosed with Type 2 diabetes since 1981. He was in his 30s when diagnosed. Had an aortic valve replacement via cardiac cath in November of 2024 Had surgery in May to implant pacemaker. Reports he missed his appointment for Diabetes Education in February because he was in the hospital for Rhino Virus and Pneumonia. He was in the hospital from -Mar 16. Has been using both the Devon 2 and Devon 3 sensors because there was a Devon 3 shortage. He brought both sensor receivers to be downloaded today. NAME OF REFERRING PROVIDER: Dr. Butts Source [...] How important is diabetes management to you? ALLERGIES: Patient has answered NKA Living arrangements: [...] was no money to buy more? No, [facility] in [place] offers a bag of groceries for Veterans. He does get help from them. Breakfast (8 am): oatmeal or other cereals (special K); coffee black Lunch (12 pm): make his own soup with crackers or sandwich, water Dinner (4 pm): tea and pasta or beans or chicken, ham, frozen vegetables (avoids processed meats) Snacks: chips (not often), peanuts, not snacking too much Beverages consumed: not drinking alcohol, water, tea, coffee, milk Goal weight desired: lbs Weight was 167.2 this AM. SLEEP Typical sleep pattern: Not sleeping well, has sleep apnea. Was taking meds to sleep and one pill caused anxiety and 1 pill caused nose bleeding. Bedtime: 9 pm. Waketime: 4-5 am. Naps: not napping much. Comments: PHYSICAL ACTIVITY Type: Weak, not coughing anymore. Also getting dizzy when he stands up or gets up too quick. Level: Frequency: Duration: Limitations: Walks for 1/2 mile and then he is done (because he is tired) DIABETES MEDICATIONS Glargine 16 units twice a day. Aspart 10 units for eggs, 14 units for cereal AM, 7 units noon, 10 units dinner STORAGE OF INSULIN/OTHER INJECTABLES: INJECTIONS SITES: SITES VIEWED: ANY EVIDENCE OF LIPOHYPERTROPHY History of hypoglycemia: Not recently. Symptoms: Feels sweating, shaking, Frequency: Typical treatment: glucose tablets 3-4 Medic ID: Has one from [place] Glucagon kit: No MONITORING Downloaded sensors and attached to [employer] Sensors: Devon 2 & Devon 3 Currently using the Devon 3 sensor and fur clipper and did use the Devon 2 sensor when there was a shortage of Devon 3 during the month of Feb and March. No trouble with sensor falling off. Devon 3 sensor download from today: Name: Tony Logan Date of : 1940 Report Period: 03/31/2024 - 04/27/2024 (28 days) Generated: 04/27/2024 Time CGM Active: 100% Glucose Statistics and Targets Average Glucose: 194 mg/dL Glucose Management Indicator (GMI): 8.0% Glucose Variability (%CV): 29.0% Target Range: 70 - 180 mg/dL Time in Ranges Very High: >250 mg/dL --- 15% High: 181 - 250 mg/dL --- 38% Target Range: 70 - 180 mg/dL --- 47% Low: 54 - 69 mg/dL --- 0% Very Low: <54 mg/dL --- 0% The main trend noted are elevated glucose between the hours of 9 am until 5:30 pm and again between 10 pm until 1 am. No trend of hypoglycemia noted. [employer] sensor download from today: Name: Tony Logan Date of : 1940 Report Period: 03/08/2024 - 04/04/2024 (28 days) Generated: 04/27/2024 Time CGM Active: 79% Glucose Statistics and Targets Average Glucose: 194 mg/dL Glucose Management Indicator (GMI): 8.0% Glucose Variability (%CV): 35.0% Target Range: 70 - 180 mg/dL Time in Ranges Very High: >250 mg/dL --- 22% High: 181 - 250 mg/dL --- 30% Target Range: 70 - 180 mg/dL --- 48% Low: 54 - 69 mg/dL --- 0% Very Low: <54 mg/dL --- 0% Sensor Glucose What is your Time in Range (TIR) target? What is your target A1c? Diabetes related illnesses or hospitalizations in the past year? Comments: Hospitalized in February for Rhino virus and pneumonia. DIABETES DISTRESS On a scale of 1-6 where 1 is no problem and 6 is a very serious problem, rate the following: Feeling overwhelmed by the demands of living with diabetes: 2 Feeling that I am failing my diabetes routine: 3-4, not eating well or not eating at the right times. DIABETIC-RELATED CHRONIC COMPLICATIONS EYES: Retinopathy- no Maculopathy- no Glaucoma- no X Cataracts- had surgery in 2009. Had 5 facial surgeries next to the eye. The right eye (the vision is funny, it gets tired easily). Blindness- no Blurring- no Comments: Had an appt in February. KIDNEYS: Difficulty emptying bladder- no Urinary tract infection- no X Proteinuria- mild Nephropathy- no Denied concerns Comments: Has low GFR and normal microalbumin/creatinine ratio Not seeing a specialist for his kidneys. FEET/LEGS/SKIN: Dry skin Previous/current ulcer- no skin break down Hard/thick toenails- no Palpable pulses Pain on walking- no, but does get tired quickly Charcot joint Pain at rest- does have restless feelings in feet and legs Gangrene/amputation- no Tingling/Numbness: Hands- has arthritis X Feet- left foot (veins replaced, had to clean the arteries, placed a bovine vein) Has swelling in his left leg all the time. Denied concerns Comments: Last seen by hall clerk in March of 2024. CARDIOVASCULAR/CEREBROVASCU LAR Pain/palpitations- no, has a heart murmur Angina pectoris Myocardial infarction- No Hypertension- being treated Hyperlipidemia- being treated TIA- no Stroke (CVA)- no Denied concerns Comments: Aortic valve replacement and pacemaker installed. Last seen by director telehealth 2 months and has another appointment next month. Seeing Dr. Tang in [facility]. 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 Follow up every year. Every appointment he has a bunch of tests done. Currently cancer free. Prior diabetes education: SMART GOALS HEALTH GOAL #1: In order to meet this goal, I will: Continue using the Devon 3 sensor to monitor blood sugars. HEALTH GOAL #2: In order to meet this goal, I will: Clinical or Quality of Life outcome baseline: ASSESSMENT: Kindly referred by Dr. Butts. [place] has been using both the Devon 2 and Devon 3 sensors due to a shortage with the Devon 3 sensors. He brought both the Devon 2 and Devon 3 receivers to download. His last A1C was 8.1% in March. We reviewed how the target of his A1C is higher now that he is 83 years old. We want to avoid him from having lower blood sugars and being at risk of falling. Aimee's sensor download reveals that the time of day when his glucose are most elevated are after Breakfast and Lunch, therefore, we adjusted his insulin at those times of the day. We made the following adjustments: -Increase Breakfast Aspart to 11 units for eggs or 15 units for cereal -Increase Lunch Aspart to 8 units before the meal. -Continue Dinner Aspart of 10 units before the meal. -Continue Glargine insulin 16 units, twice a day. Aimee is scheduled to return to diabetes education in 3 months and scheduled to see Endocrine and Pharmacy in April. Learning limitations/special education needs: None Barriers to learning: Visual Auditory Literacy Language X None Cultural influences: None Health beliefs/attitudes/feelings about diabetes: None Readiness to learn: Yes Will significant other participate in program? No TEACHING MATERIALS GIVEN: EDUCATION: -Reviewed sensor download in detail. -Reviewed pattern management and insulin adjustment. INSTRUCTIONS: -Continue using the Devon 3 sensor to monitor blood sugars. -Please keep the Devon 2 fur clipper in case there is a shortage of Devon 3 sensors. -Adjust insulin as follows: - Increase Novolog 11 units for eggs, 15 units for cereal AM, 8 units before noon. -Continue Novolog 10 units before dinner. -Continue Glargine insulin 16 units twice a day. -Please call with any questions or concerns. -Follow up with Diabetes Education in 3 months. Patient/Family Verbalized Understanding FUTURE APPOINTMENTS: 05/05/2024 11:30 [facility] ENDOCRINE MD 1 05/17/2024 14:00 [facility] PHARM PACT 3 07/08/2024 09:00 [facility]/NO/PACT 7 07/13/2024 11:30 [facility] PODIATRY NAIL 07/26/2024 15:00 [facility] DM EDUC RN 1 03/09/2025 14:00 [facility] OPTOMETRY 3 DM type is : Type 2 diabetes Length of Visit: 60 minutes /es/ DOUGLAS ROSAS, RN,BSN, [facility] DIABETES MERCURY WASHER, RN Signed: 04/27/2024 16:32 Receipt Acknowledged By: 04/28/2024 19:48 /es/ MIAH BUTTS MD STAFF PHYSICIAN 04/28/2024 06:40 /es/ Abad Russell DNP, ART FRAMING MANAGER-BC, CNL Primary Care Nurse Practitioner 04/28/2024 14:21 /es/ VICTORINA TIRADO, PHARMD,BCPS CLINICAL PHARMACY PRACTITIONER DOUGLAS ROSAS [place] [facility]
--- OUTSIDE RECORDS SUMMARY | 2024-07-20 08:30 | XMS_ITS | Encounter Summary ---
Author Name [facility] [place] [facility] [place] [facility] [place] Address [address] [place] [id number] Care Team Providers Care Associate Curator Name Role Phone ABAD RUSSELL Primary Care [...] PART A Nov 22, 2006 PART A [id number] TONY LOGAN PATIENT MEDICARE (WNR) MEDICARE (M) PART B Nov 22, 2006 PART B [id number] TONY LOGAN PATIENT MEDICARE (WNR) MEDICARE (M) PART A Nov 22, 2006 PART A [id number] TONY LOGAN PATIENT MEDICARE (WNR) MEDICARE (M) PART B Nov 22, 2006 PART B [id number] TONY LOGAN PATIENT FOR LIFE TFL* Apr 20, 2014 [id number] SUKHJINDER LOGAN JR PATIENT Selected Encounter This section includes the information on record at [place] for the Encounter. Date/Time Encounter Type Encounter Description Reason Provider Source Jan 13, 2024 03:00 PM DIAB MANAGE TRN [facility] ICD-10-CM E11.8 Type 2 diabetes mellitus with unspecified complications ROBB RSOAS [facility] Encounter Template Text not used by [place] Assessments - Encounter Diagnoses This section includes the primary and secondary diagnoses documented for the Encounter. Date/Time Primary/Secondary Diagnosis Diagnosis Name Provider Source Jan 13, 2024 04:32 PM PRIMARY Type 2 diabetes mellitus with unspecified complications ROBB ROSAS [place] [facility] [place] [facility] Plan of Treatment: Future Appointments (+ 6 months) and Future Tests (+/- 45 days) The Plan of Treatment section includes future care activities for the [facility] [place] [facility] This section includes future appointments and future orders which are active, pending or scheduled. Future Appointments This section includes appointments that were scheduled to occur 6 months from the date of the Encounter, up to a maximum of 20 appointments. The data comes from all [place] treatment facilities. Appointment Date/Time Appointment Type Appointme nt Facility Name Jan 19, 2024 08:30 AM AMBULATORY - REHAB MEDICIN E [place] [facility] [place] [facility] Feb 23, 2024 03:00 PM AMBULATORY - MEDICINE [place] [facility] [place] [facility] Mar 03, 2024 02:00 PM AMBULATORY - MEDICINE [place] [facility] [place] [facility] Mar 03, 2024 02:30 PM AMBULATORY - MEDICINE [place] [facility] [place] [facility] Apr 07, 2024 08:00 AM AMBULATORY - MEDICINE [place] [facility] [place] [facility] Apr 27, 2024 03:00 PM AMBULATORY - MEDICINE [place] [facility] [place] [facility] May 05, 2024 11:30 AM AMBULATORY - MEDICINE [place] [facility] [place] [facility] May 17, 2024 02:00 PM AMBULATORY - MEDICINE [place] [facility] [place] [facility] Jul 08, 2024 09:00 AM AMBULATORY - MEDICINE [place] [facility] [place] [facility] Jul 13, 2024 11:30 AM AMBULATORY - MEDICINE [facility] [place] [facility] Lab Results: +/- 30 days of the encounter This section includes the Chemistry and Hematology Lab Results on record with [place] for the patient. Radiology Reports and Pathology Reports are provided separately, in subsequent sections. Lab Results This section contains the Chemistry/Hematology Results that were resulted 30 days before or 30 daysafter the date of the Encounter. Date/Time Source Result Type Result - Unit Interpretation Reference Range Specimen Type Comment Jan 29, 2024 09:49 AM [facility] CREATININE (eGFR 2020) SERUM Specimen Type: SERUM No comment entered. Ordering Provider: MINA RUSSELL Report Released Date/Time: Jan 27, 2024 07:33 AM Reporting Lab: [address] [address] Performing Lab: [address] [address] CREATININE, Serum 1.86 mg/dL H 0.50-1.40 eGFR(CKD-EPI 2020) 36 mL/min L >60 Jan 29, 2024 09:49 AM [facility] PT & INR (COUMADIN) PLASMA Specimen Type: PLAS MA No comment entered. Ordering Provider: ABAD RUSSELL Report Released Date/Time: Jan 27, 2024 07:33 AM Reporting Lab: [address] [address] Performing Lab: [address] [address] INR 1.3 PROTIME 14.6 s H 10.0-13.1 Jan 29, 2024 09:49 AM [facility] LIVER FUNCTION SERUM Specimen Type: SERUM No comment entered. Ordering Provider: ABAD RUSSELL Report Released Date/Time: Jan 27, 2024 07:33 AM Reporting Lab: [address] [address] Performing Lab: [address] [address] PROTEIN,TOTAL 7.4 g/dL 6.0-8.3 ALBUMIN 3.2 g/dL L 3.5-5.0 ALKALINE PHOSPHATASE 66 U/L 40-150 AST 30 U/L 5-34 ALT 31 U/L BILIRUBIN, TOTAL 0.4 mg/dL 0.2-1.2 Jan 29, 2024 09:49 AM [facility] CBC BLOOD Specimen Type: BLOOD No comment entered. Ordering Provider: ABAD RUSSELL Report Released Date/Time: Jan 27, 2024 07:33 AM Reporting Lab: [facility] [address] [address] Performing Lab: [facility] [address] [address] WBC 6.95 10*3/uL 4.50-11.00 RBC 3.19 10*6/uL [...] and tobacco- related health factors from the [place] facility where the Encounter took place. Current Smoking Status This section includes the most current smoking, or tobacco-related health factor, from the [place] facility where the Encounter took place. Date/Time Current Smoking Status Comment [facility] Jan 06, 2024 09:30 AM [place]-TOBACCO QUIT 15 YRS OR MORE [facility] Tobacco Use History This section includes a history of the smoking, or tobacco-related health factors, that were collected on or before the date of the Encounter. The data comes from the [place] facility where the Encounter took place. Date/Time Smoking Status/Tobac co Use Comment Facility Jan 06, 2024 09:30 AM [place]-TOBACCO QUIT 15 YRS OR MORE [facility] Dec 24, 2022 10:30 AM [place]-TOBACCO FORMER USER [facility] Dec 24, 2022 10:30 AM [place]-TOBACCO QUIT 15 YRS OR MORE [facility] Dec 24, 2021 10:00 AM VA-TOBACCO FORMER USER [place] [facility] [place] [facility] Dec 24, 2021 10:00 AM VA-TOBACCO QUIT 5 TO < 15 YRS [place] [facility] [place] [facility] Dec 14, 2020 08:30 AM VA-TOBACCO FORMER USER [place] [facility] [place] [facility] Dec 14, 2020 08:30 AM VA-TOBACCO QUIT 5 TO < 15 YRS [place] [facility] [place] [facility] Nov 15, 2019 11:00 AM VA-TOBACCO FORMER USER [place] [facility] [place] [facility] Nov 15, 2019 11:00 AM VA-TOBACCO QUIT 5 TO < 15 YRS [place] [facility] [place] [facility] Oct 20, 2017 08:19 AM VA-TOBACCO FORMER USER [place] [facility] [place] [facility] Oct 20, 2017 08:19 AM VA-TOBACCO QUIT 5 TO < 15 YRS [place] [facility] [place] [facility] Sep 04, 2017 11:09 AM QUIT TOBACCO USE > 7 YEARS AGO [place] [facility] [place] [facility] Oct 16, 2016 09:08 AM QUIT TOBACCO USE > 7 YEARS AGO [place] [facility] [place] [facility] Feb 20, 2015 10:58 AM QUIT TOBACCO USE > 7 YEARS AGO quit 2009-cigarettes and cigars for 45 years [place] [facility] [place] [facility] Advance Directives: All historical and current Section Date Range: From patient's date of to the date document was created. This section includes ALL of a patient's completed or amended [place] Advance and Rescinded Directives. The entries below indicate that a directive exists for the patient, but an actual copy is not included with this document. The data comes from all [place] facilities. Date Advance Directives Provider Source Mar 23, 2014 ADVANCE DIRECTIVE ROSALINDA SHELBY [place] [facility] [place] [facility] Encounter Notes: All associated encounter notes This section contains the clinical notes associated to the Encounter. Date/Time Encounter Note(s) Provider Source Jan 13, 2024 04:32 PM DIABETOLOGY NOTE: LOCAL TITLE: INSULIN PUMP/CGM DOWNLOAD (T) STANDARD TITLE: DIABETOLOGY NOTE DATE OF NOTE: JAN 13, 2024@16:32 ENTRY DATE: JAN 13, 2024@16:32:42 AUTHOR: DOUGLAS ROSAS EXP COSIGNER: URGENCY: STATUS: COMPLETED Please select: Personal Continuous Glucose Monitor Date of Documentation:Dec Please see attached scanned document in [facility]. DX: Type 2 diabetes Sensor: Devon 2 /es/ DOUGLAS ROSAS RN,BSN, [facility] DIABETES IT INFRASTRUCTURE SPECIALIST, RN Signed: 01/13/2024 16:33 DOUGLAS ROSAS [place] [facility] [place] [facility] Jan 13, 2024 02:43 PM DIABETOLOGY CONSULT: LOCAL TITLE: CONSULT REPORT/DIABETES EDU STANDARD TITLE: DIABETOLOGY CONSULT DATE OF NOTE: JAN 13, 2024@14:43 ENTRY DATE: JAN 13, 2024@14:43:26 AUTHOR: DOUGLAS ROSAS EXP COSIGNER: URGENCY: STATUS: COMPLETED DIABETES EDUCATION DOCUMENTATION DIABETES SELF-MANAGEMENT EDUCATION AND SUPPORT (DSMES) PROGRAM Intake Assessment __JAN 13, 2024 INTRODUCTION [place] identified with 2 identifiers: (X)Full Name (X)Date of () Other: Demographics: Patient Name: TONY LOGAN JR :Nov Age: 83 Sex: MALE Race: WHITE MARITAL STATUS - No prior language recorded Contact info: [address] [facility] [address] [place], [place] [address] PATIENT PHONE - COMBAT SERVICE INDICATED: No PERIOD OF SERVICE - [place] ERA DS - Disabilities Eligibility: [place] LESS THAN 50% VERIFIED Total S/C %: 0 Primary NOK: KARIN LOGAN Relation: EXTENDED FAMILY M <street address not available> Phone: JUAN MIGUEL [place]ugh consented for any other persons present for visit: If yes, who and relationship to patient: REASON FOR EDUCATION VISIT TODAY: Diagnosed with Type 2 diabetes since 1981. He was in his 30s when diagnosed. Had an aortic valve replacement via cardiac cath last month. His supervisor beehive kiln is trying to get him dapagliflozin ([facility] is waiting to hear from supervisor beehive kiln). Had surgery in May to implant pacemaker. [...] was no money to buy more? No, [employer] [place] in [place] offers a bag of groceries for Veterans. [...] his heart surgery. Has cardiac rehab at [facility] next month. Can't walk far without resting. [...] Medic ID: No, interested in one from [place] Glucagon kit: No MONITORING Currently using the Devon 2 sensor and operations research director and able to download it during appointment. [...] time. Denied concerns Comments: Last seen by yard manager this month. CARDIOVASCULAR/CEREBROVASCU LAR Pain/palpitations- no, has [...] switch him to the Dexcom G7 sensor. Muldraugh's supervisor beehive kiln wants to prescribe him dapagliflozin, however, he was on empagliflozin in the past and stopped taking it due to diarrhea. [place]ugh was encouraged to increase his insulin as follows: - Increase Glargine 11 units in the AM and 11 units in the PM. - Increase Aspart 9 units for eggs, 13 units for cereal AM, 6 units noon, 9 units dinner will return to diabetes education in 1 month to review his sensor download. Learning limitations/special education needs: None Barriers to learning: Visual Auditory Literacy Language X None Cultural influences: None Health beliefs/attitudes/feelings about diabetes: None Readiness to learn: Yes Will significant other participate in program? No TEACHING MATERIALS GIVEN: Devon 3 sensors and operations research director. EDUCATION: -Reviewed how to insert the Devon 3 sensor. -Reviewed how to program the new operations research director. -Reviewed how to program in the alerts. -Reviewed how this sensor is different from the Devon 2 sensor. -Reviewed sensor download from the Devon 2 sensor. INSTRUCTIONS: -Start using the Devon 3 sensor to monitor blood sugars. -Please keep the Devon 2 operations research director incase there is a shortage of Devon [...] 60 minutes /jus/ DOUGLAS ROSAS, RN,BSN, [facility] DIABETES IT INFRASTRUCTURE SPECIALIST, RN Signed: 01/13/2024 16:31 Receipt Acknowledged By: 01/13/2024 18:02 /jus/ MIAH BUTTS MD STAFF PHYSICIAN 01/14/2024 07:35 /jus/ Abad Russell DNP, BATHROOM TILING PROFESSIONAL-BC, CNL Primary Care Nurse Practitioner DOUGLAS ROSAS [place] [facility]
--- OUTSIDE RECORDS SUMMARY | 2024-07-20 08:30 | XMS_ITS | Encounter Summary ---
Author Name [facility] [place] [facility] [place] Address [address] [place] [id number] Care Team Providers Care Agency Owner Name Role Phone AJAY APODACA Primary Care [...] PART A Nov 22, 2006 PART A [id number] TONY LOGAN PATIENT MEDICARE (WNR) MEDICARE (M) PART B Nov 22, 2006 PART B [id number] TONY LOGAN PATIENT MEDICARE (WNR) MEDICARE (M) PART A Nov 22, 2006 PART A [id number] TONY LOGAN PATIENT MEDICARE (WNR) MEDICARE (M) PART B Nov 22, 2006 PART B [id number] TONY LOGAN PATIENT FOR LIFE TFL* Apr 20, 2014 [id number] SUKHJINDER LOGAN JR PATIENT Selected Encounter This section includes the information on record at [place] for the Encounter. Date/Time Encounter Type Encounter Description Reason Provider Source August 13, 2023 12:41 PM CONT GLUC MNTR ANALYSIS I&R ENDOCRINOLOGY ICD-10-CM E11.8 Type 2 diabetes mellitus with unspecified complications MIAH BUTTS [facility] Encounter Template Text not used by [place] Assessments - Encounter Diagnoses This section includes the primary and secondary diagnoses documented for the Encounter. Date/Time Primary/Secondary Diagnosis Diagnosis Name Provider Source August 13, 2023 03:14 PM PRIMARY Type 2 diabetes mellitus with unspecified complications MIAH BUTTS [facility] Plan of Treatment: Future Appointments (+ 6 months) and Future Tests (+/- 45 days) The Plan of Treatment section includes future care activities for the patient [facility] [place] [facility] This section includes future appointments and future orders which are active, pending or scheduled. Future Appointments This section includes appointments that were scheduled to occur 6 months from the date of the Encounter, up to a maximum of 20 appointments. The data comes from all [place] treatment facilities. Appointment Date/Time Appointment Type Appointme nt Facility Name Sep 04, 2023 11:00 AM [place] [facility] [place] [facility] Sep 23, 2023 09:00 AM [place] [facility] [place] [facility] Nov 13, 2023 09:30 AM [place] [facility] [facility] Dec 31, 2023 02:00 PM [place] [facility] [place] [facility] Jan 06, 2024 09:30 AM [place] [facility] [place] [facility] Jan 13, 2024 03:00 PM [place] [facility] [place] [facility] Jan 19, 2024 08:30 AM AMBUL[place]ORY - [place]HAB [place]ICIN [place] [facility] [place] [facility] Lab Results: +/- 30 days of the encounter This section includes the Chemistry and Hematology Lab Results on record with [place] for the patient. Radiology Reports and Pathology Reports are provided separately, in subsequent sections. Lab Results This section contains the Chemistry/Hematology Results that were resulted 30 days before or 30 daysafter the date of the Encounter. Date/Time Source Result Type Result - Unit Interpretation Reference Range Specimen Type Comment August 17, 2023 05:30 AM [facility] OCCULT BLOOD FIT X1 SCREEN(IN-HOUSE) FECES Sp ecimen Type: FECES No comment entered. Ordering Provider: JOSH MARKS Report Released Date/Time: August 14, 2023 03:34 PM Reporting Lab: [facility] [place] [facility] [address] [facility] [address] Performing Lab: [facility] [address] [facility] [address] OCCULT BLOOD (FIT)#1 OF 1 Negative NEG August 15, 2023 08:59 AM [facility] FOLATE (WROX) SERUM Specimen Type: SERUM No comment entered. Ordering Provider: JOSH MARKS Report Released Date/Time: August 14, 2023 03:34 PM Reporting Lab: [facility] [address] [facility] [address] Performing Lab: [facility] [address] [facility] [address] FOLATE (WROX) 13.92 ng/mL >5.2 August 15, 2023 08:59 AM [facility] FERRITIN SERUM Specimen Type: SERUM No comment entered. Ordering Provider: JOSH MARKS Report Released Date/Time: August 14, 2023 03:34 PM Reporting Lab: [facility] [place] [facility] [address] [facility] [facility] [address] Performing Lab: [facility] [address] [facility] [address] FERRITIN 108 ng/mL 20-300 August 15, 2023 08:59 AM [facility] VITAMIN B12 SERUM Specimen Type: SERUM No comment entered. Ordering Provider: JOSH MARKS Report Released Date/Time: August 14, 2023 03:34 PM Reporting Lab: [facility] [address] [facility] [address] Performing Lab: [facility] [address] [address] VITAMIN B12 284 pg/mL 200-900 August 15, 2023 08:59 AM [facility] IRON & TIBC PANEL SERUM Specimen Type: SERUM No comment entered. Ordering Provider: JOSH MARKS Report Released Date/Time: August 14, 2023 03:34 PM Reporting Lab: [facility] [address] [facility] [address] Performing Lab: [address] [address] TIBC 380 ug/dL 204-475 IRON 71 ug/dL 40-160 Transferrin Saturation 18.7 L 20.0-50.0 August 15, 2023 08:59 AM [facility] CBC AND DIFF (AUTO) BLOOD Specimen Type: BLOO D No comment entered. Ordering Provider: JOSH MARKS Report Released Date/Time: August 14, 2023 03:34 PM Reporting Lab: [address] [address] Performing Lab: [address] [address] WBC 5.70 10*3/uL 4.50-11.00 RBC 3.35 10*6/uL L 4.23-5.66 HGB 10.3 g/dL L 12.8-17 HCT 32.9 L 39.2-50.4 MCV 98.2 fL 82-99 MCHC 31.3 g/dL 30.8-35.1 PLT 303 10*3/uL 140-360 RDW-CV 14.2 12.0-16.0 [place], Abs 0.63 10*3/uL 0.30-1.10 MCH 30.7 pg 26.2-32.6 Neut % 73.0 43.7-75.8 Lymph % 14.2 14.0-42.3 [place] % 11.1 5.1-13.7 Eos % 0.4 0.4-6.8 Baso % 0.4 0.1-2.0 Neut, Abs 4.17 10*3/uL 2.20-7.60 Lymph, Abs 0.81 10*3/uL L 1.00-3.20 Eos, Abs 0.02 10*3/uL L 0.03-0.44 Baso, Abs 0.02 10*3/uL 0.01-0.13 Immature Gran % 0.9 H 0.0-0.7 Immature Gran, Abs 0.05 10*3/uL 0.00-0.0 6 August 06, 2023 07:31 AM [facility] LIVER FUNCTION SERUM Specimen Type: SERUM No comment entered. Ordering Provider: GEORGINA ARITA Report Released Date/Time: Jun 06, 2023 11:30 AM Reporting Lab: [address] [address] Performing Lab: [address] [address] PROTEIN,TOTAL 6.4 g/dL 6.0-8.3 ALBUMIN 3.0 g/dL L 3.5-5.0 ALKALINE PHOSPHATASE 61 U/L 40-150 AST 22 U/L 5-34 ALT 24 U/L BILIRUBIN, TOTAL 0.7 mg/dL 0.2-1.2 August 06, 2023 07:31 AM [facility] CBC AND DIFF (AUTO) BLOOD Specimen Type: BLOO D No comment entered. Ordering Provider: GEORGINA ARITA Report Released Date/Time: Jun 06, 2023 11:30 AM Reporting Lab: [address] [address] Performing Lab: [address] [address] WBC 7.50 10*3/uL 4.50-11.00 RBC 3.17 10*6/uL L 4.23-5.66 HGB 9.8 g/dL L 12.8-17 HCT 31.1 L 39.2-50.4 MCV 98.1 fL 82-99 MCHC 31.5 g/dL 30.8-35.1 PLT 181 10*3/uL 140-360 RDW-CV 14.2 12.0-16.0 [place], Abs 0.70 10*3/uL 0.30-1.10 MCH 30.9 pg 26.2-32.6 Neut % 79.2 H 43.7-75.8 Lymph % 10.1 L 14.0-42.3 [place] % 9.3 5.1-13.7 Eos % 0.3 L 0.4-6.8 Baso % 0.4 0.1-2.0 Neut, Abs 5.94 10*3/uL 2.20-7.60 Lymph, Abs 0.76 10*3/uL L 1.00-3.20 Eos, Abs 0.02 10*3/uL L 0.03-0.44 Baso, Abs 0.03 10*3/uL 0.01-0.13 Immature Gran % 0.7 0.0-0.7 Immature Gran, Abs 0.05 10*3/uL 0.00-0.0 6 August 06, 2023 07:31 AM [facility] HEMOGLOBIN A1C PANEL BLOOD Specimen Type: BLO OD Comment: Values obtained from A1C measurements can vary. For atypical A1C assays, a reported value of 7.0 could actually be between 6.72 and 7.28 if measured by a reference method. A reported value of 9.0 could actually be between 8.73 and 9.27. Ref: http://www.ngsp.org/CAPdata.asp Ordering Provider: MIAH BUTTS Report Released Date/Time: May 07, 2023 02:07 PM Reporting Lab: [address] [address] Performing Lab: [address] [address] HEMOGLOBIN A1C 7.7 H 4.0-5.6 August 06, 2023 07:31 AM [facility] BASIC METABOLIC PANEL (non-fasting) SERUM Spe cimen Type: SERUM No comment entered. Ordering Provider: MIAH BUTTS Report Released Date/Time: May 07, 2023 02:07 PM Reporting Lab: [address] [address] Performing Lab: [address] [address] UREA NITROGEN 31 mg/dL H 7-25 GLUCOSE [...] AM 112/52 [place] [facility] [place] [facility] August 13, 2023 10:04 AM 97.2 69 95/51 18 93 0 176.2 28 [place] [facility] [place] [facility] Social History: Smoking Status (Most current) and Tobacco Use (All prior to encounter date) This section includes the most current, and the historical, smoking and tobacco- related health factors from the [place] facility where the Encounter took place. Current Smoking Status This section includes the most current smoking, or tobacco-related health factor, from the [place] facility where the Encounter took place. Date/Time Current Smoking Status Comment [facility] it Dec 24, 2022 10:30 AM VA-TOBACCO FORMER USER [place] [facility] [place] [facility] Tobacco Use History This section includes a history of the smoking, or tobacco-related health factors, that were collected on or before the date of the Encounter. The data comes from the [place] facility where the Encounter took place. Date/Time Smoking Status/Tobac co Use Comment Facility Dec 24, 2022 10:30 AM VA-TOBACCO QUIT 15 YRS OR MORE [facility] [place] [facility] Dec 24, 2021 10:00 AM VA-TOBACCO FORMER USER [facility] [place] [facility] Dec 24, 2021 10:00 AM VA-TOBACCO QUIT 5 TO < 15 YRS [facility] [place] [facility] Dec 14, 2020 08:30 AM VA-TOBACCO FORMER USER [facility] [place] [facility] Dec 14, 2020 08:30 AM VA-TOBACCO QUIT 5 TO < 15 YRS [facility] [place] [facility] Nov 15, 2019 11:00 AM VA-TOBACCO FORMER USER [facility] [place] [facility] Nov 15, 2019 11:00 AM VA-TOBACCO QUIT 5 TO < [facility]RS [facility] Oct 20, 2017 08:19 AM [facility]BACCO [facility] Oct 20, 2017 08:19 AM VA-TOBACCO QUIT 5 TO < 15 YRS [facility] Sep 04, 2017 11:09 AM QUIT TOBACCO USE > 7 YEARS AGO [facility] Oct 16, 2016 09:08 AM QUIT TOBACCO USE > 7 YEARS AGO [facility] Feb 20, 2015 10:58 AM QUIT TOBACCO USE > 7 YEARS AGO quit 2009-cigarettes and cigars for 45 years [facility] Advance Directives: All historical and current Section Date Range: From patient's date of to the date document was created. This section includes ALL of a patient's completed or amended [place] Advance and Rescinded Directives. The entries below indicate that a directive exists for the patient, but an actual copy is not included with this document. The data comes from all [place] facilities. Date Advance Directives Provider Source Mar 23, 2014 ADVANCE DIRECTIVE ROSALINDA SHELBY [facility] Encounter Notes: All associated encounter notes This section contains the clinical notes associated to the Encounter. Date/Time Encounter Note(s) Provider Source August 13, 2023 12:41 PM PHYSICIAN NOTE: LOCAL TITLE: MD NOTE STANDARD TITLE: PHYSICIAN NOTE DATE OF NOTE: AUGUST 13, 2023@12:41 ENTRY DATE: AUGUST 13, 2023@12:41:13 AUTHOR: MIAH BUTTS COSIGNER: URGENCY: STATUS: COMPLETED Dx: Diabetes [...] PHYSICIAN Signed: 08/13/2023 15:14 MIAH BUTTS [facility]
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
--- OUTSIDE RECORDS SUMMARY | 2024-07-20 08:30 | XMS_ITS | Encounter Summary ---
Author Name [facility] [place] Organization [facility] [place] Address [address] [place] [address] Care Team Providers Care Notereader Name Role Phone AJAY APODACA Primary Care [...] PART A Nov 22, 2006 PART A [id number] TONY CASTELLON PATIENT MEDICARE (WNR) MEDICARE (M) PART B Nov 22, 2006 PART B [id number] TONY CASTELLON PATIENT MEDICARE (WNR) MEDICARE (M) PART A Nov 22, 2006 PART A [id number] TONY CASTELLON PATIENT MEDICARE (WNR) MEDICARE (M) PART B Nov 22, 2006 PART B [id number] TONY CASTELLON PATIENT FOR LIFE TFL* Apr 20, 2014 [id number] SUKHJINDER CASTELLON JR PATIENT Selected Encounter [...] and observation for oth reasons [facility] Plan of Treatment: Future Appointments (+ 6 months) and Future Tests (+/- 45 days) The Plan of Treatment section includes future care activities for the patient from all [place] [facility]. This section includes future appointments and [...] - MEDICINE IN [place] [facility] Sep 04, 2023 11:00 AM AMBULATORY - MEDICINE IN [place] [facility] Sep 23, 2023 09:00 AM AMBULATORY - MEDICINE IN [place] [facility] Nov 13, 2023 09:30 AM AMBULATORY - MEDICINE IN [place] [facility] Dec 31, 2023 02:00 PM AMBULATORY - MEDICINE IN [place] [facility] Jan 06, 2024 09:30 AM AMBULATORY - MEDICINE IN [place] [facility] Jan 13, 2024 03:00 PM AMBULATORY - MEDICINE IN [place] [facility] Jan 19, 2024 08:30 AM AMBULATORY - REHAB MEDICIN E IN [place] [facility] Lab Results: +/- 30 days [...] Type Comment August 17, 2023 05:30 [facility] OCCULT BLOOD FIT X1 SCREEN(IN-HOUSE) FECES Sp ecimen Type: FECES No comment entered. Ordering Provider: JOSH MARKS Report Released Date/Time: August 14, 2023 03:34 PM Reporting Lab: [facility] [place] [address] [address] Performing Lab: [facility] [place] [address] [address] OCCULT BLOOD (FIT)#1 OF 1 Negative NEG August 15, 2023 08:59 AM [facility] FOLATE (WROX) SERUM Specimen Type: SERUM No comment entered. Ordering Provider: JOSH MARKS Report Released Date/Time: August 14, 2023 03:34 PM Reporting Lab: [facility] [place] [facility] [address] [facility] [facility] [address] Performing Lab: [facility] [place] [facility] [address] [facility] [address] FOLATE (WROX) 13.92 ng/mL >5.2 August 15, 2023 08:59 AM [facility] FERRITIN SERUM Specimen Type: SERUM No comment entered. Ordering Provider: JOSH MARKS Report Released Date/Time: August 14, 2023 03:34 PM Reporting Lab: [facility] [place] [facility] [address] [facility] [address] Performing Lab: [facility] [place] [address] [address] FERRITIN 108 ng/mL 20-300 August 15, 2023 08:59 AM [facility] VITAMIN B12 SERUM Specimen Type: SERUM No comment entered. Ordering Provider: JOSH MARKS Report Released Date/Time: August 14, 2023 03:34 PM Reporting Lab: [facility] [place] [address] [address] Performing Lab: [facility] [address] [facility] [address] VITAMIN B12 284 pg/mL 200-900 August 15, 2023 08:59 AM [facility] IRON & TIBC PANEL SERUM Specimen Type: SERUM No comment entered. Ordering Provider: JOSH MARKS Report Released Date/Time: August 14, 2023 03:34 PM Reporting Lab: [facility] [address] [facility] [address] Performing Lab: [address] [address] TIBC 380 ug/dL 204-475 IRON 71 ug/dL 40-160 Transferrin Saturation 18.7 L 20.0-50.0 August 15, 2023 08:59 AM [facility] CBC AND DIFF (AUTO) BLOOD Specimen Type: BLOO D No comment entered. Ordering Provider: JOSH MARKS Report Released Date/Time: August 14, 2023 03:34 PM Reporting Lab: [facility] [address] [facility] [address] Performing Lab: [address] [address] WBC 5.70 10*3/uL 4.50-11.00 RBC 3.35 10*6/uL L 4.23-5.66 HGB 10.3 g/dL L 12.8-17 HCT 32.9 L 39.2-50.4 MCV 98.2 fL 82-99 MCHC 31.3 g/dL 30.8-35.1 PLT 303 10*3/uL 140-360 RDW-CV 14.2 12.0-16.0 Wolfe, Abs 0.63 10*3/uL 0.30-1.10 MCH 30.7 pg 26.2-32.6 Neut % 73.0 43.7-75.8 Lymph % 14.2 14.0-42.3 Wolfe % 11.1 5.1-13.7 Eos % 0.4 0.4-6.8 Baso % 0.4 0.1-2.0 Neut, Abs 4.17 10*3/uL 2.20-7.60 Lymph, Abs 0.81 10*3/uL L 1.00-3.20 Eos, Abs 0.02 10*3/uL L 0.03-0.44 Baso, Abs 0.02 10*3/uL 0.01-0.13 Immature Gran % 0.9 H 0.0-0.7 Immature Gran, Abs 0.05 10*3/uL 0.00-0.0 6 August 06, 2023 07:31 AM [facility] LIVER FUNCTION SERUM Specimen Type: SERUM No comment entered. Ordering Provider: GEORGINA ARITA Report Released Date/Time: Jun 06, 2023 11:30 AM Reporting Lab: [address] [address] Performing Lab: [address] [address] PROTEIN,TOTAL 6.4 g/dL 6.0-8.3 ALBUMIN 3.0 g/dL L 3.5-5.0 ALKALINE PHOSPHATASE 61 U/L 40-150 AST 22 U/L 5-34 ALT 24 U/L BILIRUBIN, TOTAL 0.7 mg/dL 0.2-1.2 August 06, 2023 07:31 AM [facility] CBC AND DIFF (AUTO) BLOOD Specimen Type: BLOO D No comment entered. Ordering Provider: GEORGINA ARITA Report Released Date/Time: Jun 06, 2023 11:30 AM Reporting Lab: [address] [address] Performing Lab: [address] [address] WBC 7.50 10*3/uL 4.50-11.00 RBC 3.17 10*6/uL L 4.23-5.66 HGB 9.8 g/dL L 12.8-17 HCT 31.1 L 39.2-50.4 MCV 98.1 fL 82-99 MCHC 31.5 g/dL 30.8-35.1 PLT 181 10*3/uL 140-360 RDW-CV 14.2 12.0-16.0 Wolfe, Abs 0.70 10*3/uL 0.30-1.10 MCH 30.9 pg 26.2-32.6 Neut % 79.2 H 43.7-75.8 Lymph % 10.1 L 14.0-42.3 Wolfe % 9.3 5.1-13.7 Eos % 0.3 L 0.4-6.8 Baso % 0.4 0.1-2.0 Neut, Abs 5.94 10*3/uL 2.20-7.60 Lymph, Abs 0.76 10*3/uL L 1.00-3.20 Eos, Abs 0.02 10*3/uL L 0.03-0.44 Baso, Abs 0.03 10*3/uL 0.01-0.13 Immature Gran % 0.7 0.0-0.7 Immature Gran, Abs 0.05 10*3/uL 0.00-0.0 6 August 06, 2023 07:31 AM [facility] HEMOGLOBIN A1C PANEL BLOOD Specimen [...] May 07, 2023 02:07 PM Reporting Lab: [facility] [employer] [address] Performing Lab: [address] [address] HEMOGLOBIN A1C 7.7 H 4.0-5.6 August 06, 2023 07:31 AM [facility] BASIC METABOLIC PANEL (non-fasting) SERUM Spe cimen Type: SERUM No comment entered. Ordering Provider: MIAH BUTTS Report Released Date/Time: May 07, 2023 02:07 PM Reporting Lab: [facility] [employer] [address] Performing Lab: [facility] [place] [facility] [address] [facility] [address] UREA NITROGEN 31 mg/dL H 7-25 GLUCOSE [...] took place. Date/Time Current Smoking Status Comment [facility] Dec 24, 2022 10:30 AM VA-TOBACCO QUIT 15 YRS OR MORE [facility] Tobacco Use History This section includes a history of the smoking, or tobacco-related health factors, that were collected on or before the date of the Encounter. The data comes from the [place] facility where the Encounter took place. Date/Time Smoking Status/Tobac co Use Comment Facility Dec 24, 2022 10:30 AM VA-TOBACCO QUIT 15 YRS OR MORE IN [place] [facility] Dec 24, 2021 10:00 AM VA-TOBACCO FORMER USER [facility] [place] [facility] Dec 24, 2021 10:00 AM VA-TOBACCO QUIT 5 TO < 15 YRS [facility] [place] [facility] Dec 14, 2020 08:30 AM VA-TOBACCO FORMER USER [facility] [place] [facility] Dec 14, 2020 08:30 AM VA-TOBACCO QUIT 5 TO < 15 YRS [facility] [place] [facility] Nov 15, 2019 11:00 AM VA-TOBACCO FORMER USER [facility] [place] [facility] Nov 15, 2019 11:00 AM VA-TOBACCO QUIT 5 TO < 15 YRS [facility] [place] [facility] Oct 20, 2017 08:19 AM VA-TOBACCO FORMER USER [facility] [place] [facility] Oct 20, 2017 08:19 AM VA-TOBACCO QUIT 5 TO < 15 YRS [facility] Sep 04, 2017 11:09 AM QUIT TOBACCO USE > 7 YEARS AGO [facility] Oct 16, 2016 09:08 AM QUIT TOBACCO USE > 7 YEARS AGO [facility] Feb 20, 2015 10:58 AM QUIT TOBACCO USE > 7 YEARS AGO quit 2009-cigarettes and cigars for 45 years [facility] Advance Directives: All historical and [...] Mar 23, 2014 ADVANCE DIRECTIVE ROSALINDA SHELBY [facility] Encounter Notes: All associated encounter [...] No Comments: found results in [facility] from [facility] These results were verified by reviewing [...] Patient education via phone/letter [ ] Schedule phone/hhtc-qk-tgou follow up [ ] Lab ordered [ ] Discontinue interacting medication [ ] Discontinue DOAC [ ] Change to alternative DOAC [ ] Change DOAC dose [ ] Notify PCP [ ] Consult cardiology/hematology [ ] Other: Time spent: 10 min /tyree JUNIOR Clinical Service Order Dispatcher Signed: 07/21/2023 09:54 Receipt Acknowledged By: 07/21/2023 10:04 desean/ Sangeeta Zamudio PharmD, [facility] Clinical Supervisor Type Bar And Segment 07/21/2023 ADDENDUM STATUS: COMPLETED Above case reviewed as entered by [employer] Project Manager Industrial. Agree with current assessment and plan of care for this patient's anticoagulation management as noted. /tyree Zamudio PharmD, [facility] Clinical Supervisor Type Bar And Segment Signed: 07/21/2023 10:04 ANGELES JUNIOR [facility] [place] [facility]
--- OUTSIDE RECORDS SUMMARY | 2024-07-20 08:30 | XMS_ITS | Encounter Summary ---
Author Organization [facility] Address [address] [place] [address] Care Team Providers Care Able Seaman Name Role Phone Donte Powell Primary Care Provider Encounter Details Date Type Department Care Team (Late st Contact Info) Description 03/21/2020 Orders Only [facility] [address] [place] [address] Violeta Plascencia, PharmD [address] [place], [place] [id number] Social History Tobacco Use Types Packs/Day Years Used Date Smoking Tobacco: Former Cigarettes 1 54.2 0 08/17/1954 - 10/17/2008 Smokeless Tobacco: Never Comments:: Alcohol Use Standard Drinks/Week Comments No 0 (1 standard drink = 0.6 oz pur e alcohol) Sex and Gender Information Value Date Recorded Sex Assigned at Male 03/31/2019 4:06 PM EST Legal Sex Male 4:11 AM EDT Gender Identity Male Sexual Orientation Straight 03/31/2019 4: 06 PM EST documented as of this encounter Plan of Treatment Not on file documented as of this encounter Visit Diagnoses Not on filedocumented in this encounter Care Teams Able Seaman Relationship Specialty Start Date End Date Donte Powell [address] [place] [address] dr Mac Watts, [place] [address] PCP - General 10/10/16 documented as of this encounter
--- OUTSIDE RECORDS SUMMARY | 2024-07-20 08:30 | XMS_ITS | Encounter Summary ---
Author Name Department of Veter[place] Organization [facility] [place] Address [address] [place] [address] Care Team Providers Care Buff Wheel Fabricator Name Role Phone AJAY APODACA Primary Care [...] PART A Nov 22, 2006 PART A [id number] TONY CASTELLON PATIENT MEDICARE (WNR) MEDICARE (M) PART B Nov 22, 2006 PART B [id number] [id number] TONY CASTELLON PATIENT MEDICARE (WNR) MEDICARE (M) PART B Nov 22, 2006 PART B [id number] TONY CASTELLON PATIENT MEDICARE (WNR) MEDICARE (M) PART A Nov 22, 2006 PART A [id number] TONY CASTELLON PATIENT FOR LIFE TFL* Apr 20, 2014 [id number] [phone] SUKHJINDER CASTELLON JR PATIENT Selected Encounter This section includes the information on record at ID for the Encounter. Date/Time Encounter Type Encounter Description Reason Provider Source Mar 30, 2024 10:15 AM NQHP OL DIG ASSMT&MGMT 5-10 CLINICAL PHARMACY ICD-10-CM Z51.81 Encounter for therapeutic drug level monitoring LENMAXIMINO MERAZ Ondina IHE Encounter Template Text not used by ID Assessments - Encounter Diagnoses This section includes the primary and secondary diagnoses documented for the Encounter. Date/Time Primary/Secondary Diagnosis Diagnosis Name Provider Source Mar 30, 2024 10:20 AM PRIMARY Encounter for therapeutic drug level monitoring ROMIE HARRINGTON [facility] ([id number]) Mar 30, 2024 10:20 AM SECONDARY intermediate (current) use of anticoagulants ROMIE HARRINGTON [facility] ([id number]) Mar 30, 2024 10:20 AM SECONDARY Unspecified atrial fibrillation ROMIE HARRINGTON Ondina [facility] ([id number]) Plan of Treatment: Future Appointments (+ 6 months) and Future Tests (+/- 45 days) The Plan of Treatment section includes future care activities for the patient from all [place] [facility]. This section includes future appointments and future orders which are active, pending or scheduled. Future Appointments This section includes appointments that were scheduled to occur 6 months from the date of the Encounter, up to a maximum of 20 appointments. The data comes from all [place] treatment facilities. Appointment Date/Time Appointment Type Appointme nt Facility Name Apr 07, 2024 08:00 AM AMBULATORY - MEDICINE ID [place] [facility] Apr 27, 2024 03:00 PM AMBULATORY - MEDICINE ID [place] [facility] May 05, 2024 11:30 AM AMBULATORY - MEDICINE ID [place] [facility] May 17, 2024 02:00 PM AMBULATORY - MEDICINE ID [place] [facility] Jul 08, 2024 09:00 AM AMBULATORY - MEDICINE [place] C [place] [facility] Jul 13, 2024 11:30 AM AMBULATORY - MEDICINE ID [place] [facility] July 26, 2024 03:00 PM AMBULATORY - MEDICINE VA C [place] [facility] Aug 25, 2024 01:30 PM AMBULATORY - MEDICINE ID [place] [facility] Lab Results: +/- 30 days of the encounter This section includes the Chemistry and Hematology Lab Results on record with ID for the patient. Radiology Reports and Pathology Reports are provided separately, in subsequent sections. Lab Results This section contains the Chemistry/Hematology Results that were resulted 30 days before or 30 daysafter the date of the Encounter. Date/Time Source Result Type Result - Unit Interpretation Reference Range Specimen Type Comment Mar 29, 2024 08:38 AM [facility] HEMOGLOBIN A1C PANEL BLOOD Specimen Type: BLOOD [...] Feb 24, 2024 02:53 PM Reporting Lab: [address] [address] Performing Lab: [address] [address] HEMOGLOBIN A1C 8.1 H 4.0-5.6 Mar 29, 2024 08:38 AM [facility] MICROALBUMIN CREATININE RATIO PANEL URINE Spe cimen Type: URINE No comment entered. Ordering Provider: MIAH BUTTS Report Released Date/Time: Feb 24, 2024 02:53 PM Reporting Lab: [address] [address] Performing Lab: [address] [address] MICROALBUMIN/CREATININE RATIO 8.8 mg/g 0 -29.9 MICROALBUMIN,QUANTITATIVE 0.5 mg/dL RR U NAVAIL CREATININE URINE 57.04 mg/dL Mar 29, 2024 08:38 AM [facility] LIPID PANEL FASTING SERUM Specimen Type: SERU M No comment entered. Ordering Provider: MIAH BUTTS Report Released Date/Time: Feb 24, 2024 02:53 PM Reporting Lab: [address] [address] Performing Lab: [facility] [address] [facility] [address] CHOLESTEROL 99 mg/dL TRIGLYCERIDE 78 mg/dL 0-150 LDL calculated 47 mg/dL 0-129 CHOL/HDL 2.8 HDL CHOLESTEROL 36 mg/dL L 40-60 Mar 29, 2024 08:38 AM [facility] BASIC METABOLIC PANEL (non-fasting) SERUM Spe cimen Type: SERUM No comment entered. Ordering Provider: MIHA BUTTS Report Released Date/Time: Feb 24, 2024 02:53 PM Reporting Lab: [facility] [address] [facility] [address] Performing Lab: [facility] [address] [facility] [address] UREA NITROGEN 52 mg/dL H 7-25 GLUCOSE 131 mg/dL H 65-100 SODIUM 138 mmol/L 135-145 POTASSIUM 4.1 mmol/L 3.5-5.0 CHLORIDE 104 mmol/L 100-110 CO2 24 meq/L 20-30 CREATININE, Serum 1.78 mg/dL H 0.50-1.40 eGFR(CKD-EPI 2020) 37 mL/min L >60 Advance Directives: All historical and current Section Date Range: From patient's date of to the date document was created. This section includes ALL of a patient's completed or amended [place] Advance and Rescinded Directives. The entries below indicate that a directive exists for the patient, but an actual copy is not included with this document. The data comes from all ID facilities. Date Advance Directives Provider Source Mar 23, 2014 ADVANCE DIRECTIVE ROSALINDA SHELBY [facility] Encounter Notes: All associated encounter notes This section contains the clinical notes associated to the Encounter. Date/Time Encounter Note(s) Provider Source Mar 30, 2024 10:15 AM PHARMACY MEDICATION MGT NOTE: LOCAL TITLE: PHARMACY ANTICOAGULATION NOTE STANDARD TITLE: PHARMACY MEDICATION MGT NOTE DATE OF NOTE: MAR 30, 2024@10:15 ENTRY DATE: MAR 30, 2024@10:15:23 AUTHOR: TOM HARRINGTON COSIGNER: URGENCY: STATUS: COMPLETED ANTICOAGULATION DOAC MONITORING NOTE SUBJECTIVE: Patient identified through the DOAC population Management Tool based on the following criteria: [ X ] Dosing Issue [ ] Critical Drug Interaction [ ] Cancer Treatment [ ] Active NSAID [ ] Labs Overdue [ ] Prosthetic Valve Replacement [ ] Notable Lab Value [ ] Overdue for Refill [ ] Other: Comments: Patient flagged on DOAC Dashboard for being on full dose apixaban while meeting criteria for reduce dosing. OBJECTIVE: Indication for anticoagulation: [ X ] Atrial fibrilation [ X ] Atrial flutter [ ] VTE (DVT or PE) [ ] Post-op DVT prophylaxis [ ] Other: Most recent lab values include the following: HGB: HGB Collection DT Specimen Test Name Result Units Ref Range 01/29/2024 09:49 BLOOD HGB 9.9 L g/dL 12.8 - 17 PLT: WBC Collection DT Specimen Test Name Result Units Ref Range 01/29/2024 09:49 BLOOD WBC 6.95 K/cmm 4.50 - 11.00 Liver Function Tests Collection DT Spec AST ALT ALK BEE ALBUMIN T BILI T. PROT 01/29/2024 09:49 SERUM 30 31 66 3.2 L 0.4 7.4 HEIGHT: 66 in [167.6 cm] (11/13/2023 09:26) WEIGHT: 180 lb [81.65 kg] (01/06/2024 09:24) BMI: BMI: 29.1 CREATININE-EGFR 03/29/24 08:38 1.78 H 01/29/24 09:49 1.86 H 11/11/23 09:05 1.99 H CRCL IBW: CrCl(est): 28.9 mL/min (Creat:1.78 03/29/24) CRCL ACT: 37.03 mL/min CRCL ADJ: 28.9 mL/min (03/29/24) ASSESSMENT: Action required? [ ] Yes [ X ] No Patient is currently on apixaban 2.5mg q12 hours per active order. This is the appropriate dosing given age and SCr. Will dismiss flag. PLAN: [ X ] No action required, dismiss flag [ ] Will intervene: [ ] Patient education via phone/letter [ ] Schedule phone/[id number]-yu-liqt follow up [ ] Lab ordered [ ] Discontinue interacting medication [ ] Discontinue DOAC [ ] Change to alternative DOAC [ ] Change DOAC dose [ ] Notify PCP [ ] Consult cardiology/hematology [ ] Other: Time spent: 5 min /jus/ TOM HARRINGTON, PHARMD, [facility] Clinical Pharmacist Practitioner Signed: 03/30/2024 10:20 TOM HARRINGTON [facility] ([id number])
--- OUTSIDE RECORDS SUMMARY | 2024-07-20 08:31 | XMS_ITS | Encounter Summary ---
Author Organization [facility] Address [address] [place] [address] Care Team Providers Care C++ Quant Developer Name Role Phone Donte Powell MD Primary Care Provider [phone] Encounter Details Date Type Department Care Team (Late st Contact Info) Description 05/29/2024 Lab Requisition [facility] - Main Lab [address] [place] [address] Ross Saul MD [address] [place] [address] Unspecified atrial fibrillation (CMS/HCC V24, CMS/HCC V28); Diarrhea, unspecified Social History Tobacco Use Types Packs/Day Years Used Date Smoking Tobacco: Former Cigarettes Q uit: 09/21/2008 Smokeless Tobacco: Never Alcohol Use Standard Drinks/Week Comments No 0 (1 standard drink = 0.6 oz pur e alcohol) Sex and Gender Information Value Date Recorded Sex Assigned at Not on file Legal Sex Male 7:50 AM EST Gender Identity Not on file Sexual Orientation Not on file documented as of this encounter Plan of Treatment Not on file documented as of this encounter Visit Diagnoses Diagnosis Unspecified atrial fibrillation (CMS/HCC V24, CMS/HCC V28) Diarrhea, unspecified documented in this encounter Additional Health Concerns Infection Onset Date Last Indicated Resolved Time Norovirus 05/29/2024 05/29/2024 documented as of this encounter Care Teams C++ Quant Developer Relationship Specialty Start Date End Date Donte Powell MD [address] [place] [address] Dr Rl [place] PCP - General Internal Medicine 09/21/18 documented as of this encounter
--- OUTSIDE RECORDS SUMMARY | 2024-07-20 08:31 | XMS_ITS | Encounter Summary ---
Author Organization [facility] Address [address] [place] [address] Care Team Providers Care Arcade Games Mechanic Name Role Phone Donte Powell MD Primary Care Provider [phone] Encounter Details Date Type Department Care Team (Late st Contact Info) Description 05/29/2024 Lab Requisition [facility] - Main Lab [address] [facility] [place] [address] Ross Saul MD [address] [place] [address] Diarrhea, unspecified Social History Tobacco Use Types [...] as of this encounter Visit Diagnoses Diagnosis Diarrhea, unspecified documented in this encounter Additional Health Concerns Infection Onset Date Last Indicated Resolved Time Norovirus 05/29/2024 05/29/2024 documented as of this encounter Care Teams Arcade Games Mechanic Relationship Specialty Start Date End Date Donte Powell MD [address] [place] [address] Dr Rl [place] PCP - General Internal Medicine 09/21/18 documented as of this encounter
--- OUTSIDE RECORDS SUMMARY | 2024-07-20 08:31 | XMS_ITS | Clinical Summary ---
Author Organization [facility] Address [address] [place] [address] Care Team Providers Care Material Handling Supervisor Name Role Phone Donte Powell Primary Care Provider [phone] Allergies Active Allergy Reactions Criticality Noted Date Comments [place] [facility] [place] he is allergic to shellfish swelling in lips and body Shellfish Derived Unknown Medications atorvastatin (LIPITOR) 10 mg tablet Atorvastatin Calcium 10 MG Oral Tablet Refills: 0 Active Active LANTUS 100 unit/mL solution injection 7 Active fenofibrate (FENOGLIDE) 120 mg tablet Take 54 mg by mouth once a day. Active metoprolol succinate XL (TOPROL XL) 25 mg tablet Take 1 tablet (25 mg total) by mouth daily. 0 Active apixaban (ELIQUIS) 2.5 mg tablet Take 2 tablets (5 mg total) by mouth every 12 hours. 0 Active terazosin (HYTRIN) 5 mg capsule Take 5 mg by mouth nightly. Active fluticasone propion-salmete roL (ADVAIR DISKUS) 250-50 mcg inhaler Inhale 1 puff by mouth once a day. Rinse mouth with water after use. Do not swallow. Active finasteride (PROSCAR) 1.25 mg Take 5 mg by mouth 3 times a week. Active furosemide (LASIX) 40 mg tablet Take 40 mg by mouth. 4 Active insulin glargine (LANTUS SOLOSTAR) 100 unit/mL insulin pen 18 unit 2 TIMES DAILY (route: subcutaneous) 4 Active metoprolol tartrate (LOPRESSOR) 25 mg tablet Take 2.5 mg by mouth. 4 Active amiodarone (PACERONE) 200 mg tablet 4 Active acetaminophen (TYLENOL) 325 mg tablet 4 Active Refresh Tears 0.5 % drops 3 Active glucose 4 gram chewable tablet Chew and swallow by mouth. 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 Immunizations Immunization Administration Dates Next Due Haemophilus Influenzae Type B Vaccine, PRP-OMP Conjugate 11/19/2011 Hepatitis B adult (ENGERIX-B /RECOMBIVAX HB ADULT) vaccine 1 mL IM 11/19/2011 Pneumococcal Polysaccharide Vaccine, 23 Valent 0 11/19/2011 Poliovirus Vaccine, Inactivated 11/19/2011 Tetanus Toxoid, Reduced Diph theria Toxoid, and Acellular Pertussis Vaccine, Adsorbed 11/19/2011 Social History Tobacco Use Types Packs/Day Years Used Date Smoking Tobacco: Former Cigarettes 1 54.2 0 08/17/1954 - 10/17/2008 Smokeless Tobacco: Never Tobacco Cessation:Counseling Given: Not Answered Comments:: Alcohol Use Standard Drinks/Week Comments No 0 (1 standard drink = 0.6 oz pur e alcohol) Sex and Gender Information Value Date Recorded Sex Assigned at Male 03/31/2019 4:06 PM EST Legal Sex Male 4:11 AM EDT Gender Identity Male Sexual Orientation Straight 03/31/2019 4: 06 PM EST Last Filed Vital Signs Vital Sign Reading Time Taken Comments Blood Pressure 108/64 09/29/2023 2:49 PM EDT Pulse 86 09/29/2023 2:49 PM EDT Temperature 36.4 ??C (97.5 ??F) 09/29/2023 2:49 PM ED T Respiratory Rate 20 09/29/2023 2:49 PM EDT Oxygen Saturation 95% 09/29/2023 2:49 PM EDT Inhaled Oxygen Concentration - - Weight 80.6 kg (177 lb 11.1 oz) 09/29/2023 2:49 PM EDT Height 162.4 cm (5' 3.94 ) 04/11/2021 1 1:00 AM EST Body Mass Index 30.56 04/11/2021 11:00 AM EST Plan of Treatment Health Maintenance Due Date Last Done Comments PTH 1940 Medicare AWV 1941 Urine Microalbumin 12/20/1951 Hepatitis B Vaccines (2 of 3 - 19+ 3-dose series) 12/17/2011 11/19/2011 Phosphorus 12/20/2014 12/20/2013, 09/2008, 11/24/2008, Additional history exists RSV Vaccine (60+ years old a nd patients) (1 - 1-dose 75+ series) 2016 Hemoglobin A1C 09/17/2017 03/19/2017, 03/02/2015 25 Hydroxy / Vitamin D 03/19/2018 03/19/2017 Ophthalmology Exam 04/12/2023 04/12/2022 COVID-19 Vaccine ( - 2023-2 5 season) 2023 03/03/2021, 05/10/2020, 04/12/2020 Alcohol/Substance Use Screening 03/24/2024 Depression Screening and Follow-Up 03/24/2024 Health Care Proxy Review 03/24/2024 Social Drivers of Health Shanda ual Screening 03/24/2024 Basic Metabolic Panel 03/31/2024 09/29/2023 , 08/27/2023, 04/09/2023, Additional history exists Hemoglobin 09/28/2024 09/29/2023, 07/2023, 04/09/2023, Additional history exists Influenza Vaccine (Season Ended) 2024 01/09/2023, 12/26/2020, 03/21/2020, Additional history exists DTaP,Tdap,and Td Vaccines (3 - Td or Tdap) 10/16/2026 10/16/2016, 11/19/2011 CT Lung Cancer Screening (12 months, previous LungRADS 1 or 2) Discontinued 05/15/2010, 12/17/19 09, 11/03/2008 Pneumococcal Vaccine: 50+ Years Completed 10/19/2018, 10/16/2016, 11/19/2011 Zoster Vaccines Completed 11/15/2019, 03/24, 03/24/2013 Procedures * Due to [facility] law, this organization might not be sharing negative HIV tests. 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 * (ABNORMAL) CBC Auto Differential (09/29/2023 1:42 PM EDT) WBC 7.2 3.8 - 10.8 10*3/uL 09/29/2023 2:15 PM EDT [facility] RBC 3.74(L) 4.20 - 5.80 10*6/uL 09/29/2023 2:15 PM EDT [facility] Hemoglobin 11.4(L) 13.2 - 17.1 g/dL 09/29/2023 2:15 PM EDT [facility] Hematocrit 35.5(L) 38.5 - 50.0 % 09/29/2023 2:15 PM EDT [facility] MCV 94.9 80.0 - 100.0 fL 09/29/2023 2:15 PM EDT [facility] MCH 30.5 27.0 - 33.0 pg 09/29/2023 2:15 PM EDT [facility] MCHC 32.1 32.0 - 36.0 g/dL 09/29/2023 2:15 PM EDT [facility] RDW 14.7 11.0 - 15.0 % 09/29/2023 2:15 PM EDT [facility] Platelets 184 140 - 400 10*3/uL 09/29/2023 2:15 PM EDT [facility] MPV 11.3 7.5 - 12.5 fL 09/29/2023 2:15 PM EDT [facility] Neutrophil % 73.2 % 09/29/2023 2:15 PM EDT [facility] Immature Grans % 0.6 0.0 - 0.9 % 09/29/2023 2:15 PM EDT [facility] Lymphocyte % 16.5 % 09/29/2023 2:15 PM EDT [facility] Monocyte % 9.2 % 09/29/2023 2:15 PM EDT [facility] Eosinophil % 0.4 % 09/29/2023 2:15 PM EDT [facility] Basophil % 0.1 % 09/29/2023 2:15 PM EDT [facility] Neutrophil # 5.24 1.50 - 7.80 10*3/uL 09/29/2023 2:15 PM EDT [facility] Immature Grans # 0.04(H) <=0.03 10*3/uL 09/29/2023 2:15 PM EDT [facility] Lymphocyte # 1.20 0.85 - 3.90 10*3/uL 09/29/2023 2:15 PM EDT [facility] Monocyte # 0.70 0.20 - 0.95 10*3/uL 09/29/2023 2:15 PM EDT [facility] Eosinophil # <0.03 0.02 - 0.50 10*3/uL 09/29/2023 2:15 PM EDT [facility] Basophil # <0.03 0.00 - 0.20 10*3/uL 09/29/2023 2:15 PM EDT [facility] nRBC % 0.0 /100 WBCs 09/29/2023 2:15 PM EDT [facility] nRBC # <0.01 <0.01 10*3/uL 09/29/2023 2:15 PM EDT [facility] Total Neutrophil #, Preliminary 5.24 1.50 - 7.80 10*3/uL 09/29/2023 2:15 PM EDT [facility] Blood Structure of peripheral vein / Unknown Venipuncture / Unknown 09/29/2023 1:42 PM EDT 09/29/2023 2:06 PM EDT us George Vaca MD PhD LAB BLOOD ORDERABLES Final Resu lt [facility] [address] [place] [address], [place] * (ABNORMAL) Comprehensive Metabolic Panel (09/29/2023 1:42 PM EDT) NA 137 135 - 145 mmol/L 09/29/2023 2:57 PM EDT [facility] K 4.6 3.5 - 5.3 mmol/L 09/29/2023 2:57 PM EDT [facility] Cl 100 98 - 107 mmol/L 09/29/2023 2:57 PM EDT [facility] CO2 23(L) 24 - 32 mmol/L 09/29/2023 2:57 PM EDT [facility] Anion Gap 14 5 - 15 09/29/2023 2:57 PM EDT [facility] Glucose 173(H) 65 - 99 mg/dL 09/29/2023 2:57 PM EDT [facility] Creatinine 1.94(H) 0.60 - 1.30 mg/dL 09/29/2023 2:57 PM EDT [facility] Calcium 9.4 8.6 - 10.5 mg/dL 09/29/2023 2:57 PM EDT [facility] Total Protein 7.9 6.0 - 8.0 g/dL 09/29/2023 2:57 PM EDT [facility] Albumin 4.1 3.5 - 5.2 g/dL 09/29/2023 2:57 PM EDT [facility] Bilirubin, Total 0.3 0.2 - 1.2 mg/dL 09/29/2023 2:57 PM EDT [facility] Alkaline Phosphatase 63 35 - 129 U/L 09/29/2023 2:57 PM EDT [facility] AST 57(H) 10 - 40 U/L 09/29/2023 2:57 PM EDT [facility] ALT 56(H) 10 - 40 U/L 09/29/2023 2:57 PM EDT [facility] BUN 47(H) 7 - 23 mg/dL 09/29/2023 2:57 PM EDT [facility] eGFR 34(L) >=60 mL/min/1 .73m2 09/29/2023 2:57 PM EDT [facility] Comment:The estimated glomer ular filtration rate (eGFR) is calculated using a new formula developed by the NKF-ASN task force to eliminate race-based correction factors. The new formula uses serum/plasma creatinine, age, and gender to determine eGFR. A value below 60mls/min might indicate kidney disease and will be flagged. For additional information, see Nito et al, Am J Kidney Dis. 2021;79(2):268- 288, A Unifying Approach for GFR estimation: Recommendations of the NKF-ASN Task Force on Reassessing the Inclusion of Race in Diagnosing Kidney Disease . Globulin, Total 3.8 2.1 - 4.2 g/dL 09/29/2023 2:57 PM EDT [facility] A/G Ratio 1.1(L) 1.5 - 3.0 09/29/2023 2:57 PM EDT [facility] Blood Structure of peripheral vein / Unknown Venipuncture / Unknown 09/29/2023 1:42 PM EDT 09/29/2023 2:06 PM EDT us George Vaca MD PhD LAB BLOOD ORDERABLES Final Resu lt [facility] [address] [place] [address], * (ABNORMAL) Vitamin D, 25-Hydroxy, Total, Immunoassay (03/19/2017 1:10 PM EST) Calcidiol+ercalc idiol 26(L) 30 - 100 ng/mL 03/20/2017 10:40 AM EST [facility] Comment: Vitamin D Status ? 25-OH Vitamin D: Deficiency: ?<20 ng/mL Insufficiency: ? 20 - 29 ng/mL Optimal: ? > or = 30 ng/mL For 25-OH Vitamin D testing on patients on D2-supplementation and patients for whom quantitation of D2 and D3 fractions is required, the QuestAssureD(TM) 25-OH VIT D, (D2,D3), LC/MS/MS is recommended: order code 52911 (patients >2yrs). For more information on this test, go to: http://education.[employer]/faq/RQL605 (This link is being provided for informational/educational purposes only.) Blood specimen (specimen) Structure of peripheral vein / Unknown Venipuncture / Unknown 03/19/2017 1:10 PM EST 03/19/2017 1:21 PM EST Narrative [facility] - 03/20/2017 10:40 AM EST [facility] Received Date: Bethany SANTOS LAB BLOOD ORDERABLES Edit ed Result - Final [facility] [address] [facility] [address] [facility], [place] [address], [facility] [address] [facility] 3[address], [place] [address], * (ABNORMAL) Hemoglobin A1c (03/19/2017 1:10 PM EST) Pathologist [facility] Hemoglobin A1C 9.0(H) <5.7 % of total Hgb 03/19/2017 7:14 PM EST [facility] Comment: For someone without known diabetes, a hemoglobin A1c value of 6.5% or greater indicates that they may have diabetes and this should be confirmed with a follow-up test. For someone with known diabetes, a value <7% indicates that their diabetes is well controlled and a value greater than or equal to 7% indicates suboptimal control. A1c targets should be individualized based on duration of diabetes, age, comorbid conditions, and other considerations. Currently, no consensus exists regarding use of hemoglobin A1c for diagnosis of diabetes for children. ?? eAG (MG/DL) 212 (calc) 03/19/2017 7:14 PM EST [facility] eAG (MMOL/L) 11.7 (calc) 03/19/2017 7:14 PM EST [facility] Blood specimen (specimen) Structure of peripheral vein / Unknown Venipuncture / Unknown 03/19/2017 1:10 PM EST 03/19/2017 1:21 PM EST Narrative [facility] - 03/19/2017 7:14 PM EST [facility] Received Date:[id number] Bethany SANTOS LAB BLOOD ORDERABLES Barbara l Result [facility] [address] [facility] [address], [place] [address], [place] [phone] [facility] [address] [facility] [address], [place] [address], [place] [phone] * (ABNORMAL) Phosphorus (12/20/2013 4:07 AM EDT) Phosphorus Blood 2.0(L) 2.5 - 4.5 mg/dL [facility] 12/20/2013 4:07 AM EDT 12/20/2013 4:29 AM EDT us Camron Strickland MD LAB BLOOD ORDERABLES Final Result Performing Organization Address [facility] Co de Phone Number [facility] [address] [place] [address], [place] * CT Chest W Contrast (05/15/2010 8:03 AM EST) Anatomical Region Laterality Modality Body Computed Tomogra phy 05/15/2010 8:00 AM EST Impressions 05/16/2010 11:56 AM EST IMPRESSION: ??New small right pleural effusion. No evidence of pneumonia or adenopathy . COMMUNICATION: ??Per this written report. Narrative 05/16/2010 11:56 AM EST EXAMINATION: ??Helical CT of the Chest INDICATION: Lymphoma post stem cell transplant now shortness of breath TECHNIQUE: 90 mL Isovue given IV at the rate of 2.5 mL/sec. Axial images at 4 and 1 mm intervals. Coronal reformats are provided. ?? COMPARISON: December 16, 2008 FINDINGS: ? LUNGS: There is no significant interval change of minimal thickening of the bronchial cruz in the right lower lobe however there is now more distended interlobular septa and new small right pleural effusion question fluid overload . There is no significant interval change of the focal right apical pleural-parenchymal scarring. No other new findings are seen. ? MEDIASTINUM: there is no axillary, supraclavicular, mediastinal or hilar lymph node enlargement. There is no pericardial effusion. The limited visualized upper abdomen is not remarkable. ? BONES: ??The bony thorax is intact. Procedure Note Tee Wells P - 11/22/2016 EXAMINATION: Helical CT of the Chest INDICATION: Lymphoma post stem cell transplant now shortness of breath TECHNIQUE: 90 mL Isovue given IV at the rate of 2.5 mL/sec. Axial images at 4 and 1 mm intervals. Coronal reformats are provided. COMPARISON: December 16, 2008 FINDINGS: LUNGS: There is no significant interval change of minimal thickening of the bronchial cruz in the right lower lobe however there is now more distended interlobular septa and new small right pleural effusion question fluid overload . There is no significant interval change of the focal right apical pleural-parenchymal scarring. No other new findings are seen. MEDIASTINUM: there is no axillary, supraclavicular, mediastinal or hilar lymph node enlargement. There is no pericardial effusion. The limited visualized upper abdomen is not remarkable. BONES: The bony thorax is intact. IMPRESSION: IMPRESSION: New small right pleural effusion. No evidence of pneumonia or adenopathy . COMMUNICATION: Per this written report. Result [facility]ED[facility] Final Result from Last 3 Months or Most Recently Relevant to Health Maintenance Insurance Unit [address] [place] [address] MEDICARE [facility] Advance Directives Documents on File Type Date Recorded Patient Manager Tax Expl anation Advance Directive 10/19/2008 12:00 AM christopher ramírez Dec Making (Adv.Dir) Care Teams Material Handling Supervisor Relationship Specialty Start Date End Date Donte Powell [address] [place] [address] dr Mac Watts, [place] [address] PCP - General 10/10/16
--- OUTSIDE RECORDS SUMMARY | 2024-07-20 08:31 | XMS_ITS | Encounter Summary ---
Author Name [facility] Organization [facility] Address [address] [place] [address] Care Team Providers Care Solid Waste Disposal Manager Name Role Phone AJAY APODACA Primary [...] PART A Nov 22, 2006 PART A [id number] [phone] TONY CASTELLON PATIENT MEDICARE (WNR) MEDICARE (M) PART B Nov 22, 2006 PART B [id number] TONY CASTELLON PATIENT MEDICARE (WNR) MEDICARE (M) PART A Nov 22, 2006 PART A [id number] TONY CASTELLON PATIENT MEDICARE (WNR) MEDICARE (M) PART B Nov 22, 2006 PART B [id number] TONY CASTELLON PATIENT FOR LIFE TFL* Apr 20, 2014 [id number] SUKHJINDER CASTELLON JR PATIENT Selected Encounter [...] Mar 23, 2014 ADVANCE DIRECTIVE ROSALINDA SHELBY NE CNTRL WST[facility]tephanie [facility]
--- OUTSIDE RECORDS SUMMARY | 2024-07-20 08:31 | XMS_ITS ---
Author Name [facility] [place] [facility] [place] Address [address] [place] [id number] Care Team Providers Care Dean Of Admissions Name Role Phone AJAY APODACA Primary Care [...] PART A Nov 22, 2006 PART A [id number] TONY CASTELLON PATIENT MEDICARE (WNR) MEDICARE (M) PART B Nov 22, 2006 PART B [id number] TONY CASTELLON PATIENT MEDICARE (WNR) MEDICARE (M) PART A Nov 22, 2006 PART A [id number] TONY CASTELLON PATIENT MEDICARE (WNR) MEDICARE (M) PART B Nov 22, 2006 PART B [id number] [id number] TONY CASTELLON PATIENT FOR LIFE TFL* Apr 20, 2014 [id number] SUKHJINDER CASTELLON JR PATIENT Selected Encounter This section includes the information on record at [place] for the Encounter. Date/Time Encounter Type Encounter Description Reason Provider Source May 05, 2024 11:30 AM OFFICE O/P EST HI 40 MIN ENDOCRINOLOGY ICD-10-CM E11.8 Type 2 diabetes mellitus with unspecified complications MIAH BUTTS Jose Encounter Template Text not used by [place] Assessments - Encounter Diagnoses This section includes the primary and secondary diagnoses documented for the Encounter. Date/Time Primary/Secondary Diagnosis Diagnosis Name Provider Source May 05, 2024 11:44 AM PRIMARY Type 2 diabetes mellitus with unspecified complications MIAH BUTTS [facility] [place] [facility] May 05, 2024 11:44 AM SECONDARY Chronic kidney disease, unspecified [place]H [facility] [place] [facility] May 05, 2024 11:44 AM SECONDARY Essential (primary) hypertension [place] [facility] [place] [facility] May 05, 2024 11:44 AM SECONDARY Mixed hyperlipidemia [place] [facility] [place] [facility] May 05, 2024 11:44 AM SECONDARY Type 2 diabetes mellitus w diabetic chronic kidney disease [place] [facility] [place] [facility] May 05, 2024 11:44 AM SECONDARY Type 2 diabetes mellitus with diabetic polyneuropathy [place] [facility] [place] [facility] Plan of Treatment: Future Appointments (+ 6 months) and Future Tests (+/- 45 days) The Plan of Treatment section includes future care activities for the patient [facility] [place] [facility] This section includes future appointments and future orders which are active, pending or scheduled. Future Appointments This section includes appointments that were scheduled to occur 6 months from the date of the Encounter, up to a maximum of 20 appointments. The data comes from all [place] treatment facilities. Appointment Date/Time Appointment Type Appointme nt Facility Name May 17, 2024 02:00 PM [place] [facility] [place] [facility] Jul 08, 2024 09:00 AM [place] [facility] [place] [facility] Jul 13, 2024 11:30 AM [place] [facility] [place] [facility] July 26, 2024 03:00 PM [place] [facility] [place] [facility] Aug 25, 2024 01:30 PM [place] [facility] [place] [facility] Oct 20, 2024 03:00 PM [place] [facility] [place] [facility] Social History: Smoking Status (Most [...] 15 YRS OR MORE [place] [facility] [place] [facility] Tobacco Use History This section includes a history of the smoking, or tobacco-related health factors, that were collected on or before the date of the Encounter. The data comes from the [place] facility where the Encounter took place. Date/Time Smoking Status/Tobac co Use Comment [facility] Jan 06, 2024 09:30 AM VA-TOBACCO QUIT 15 YRS OR MORE [facility] [place] [facility] Dec 24, 2022 10:30 AM VA-TOBACCO FORMER USER [facility] [place] [facility] Dec 24, 2022 10:30 AM VA-TOBACCO QUIT 15 YRS OR MORE [facility] [place] [facility] Dec 24, 2021 10:00 AM VA-TOBACCO FORMER USER [facility] [place] [facility] Dec 24, 2021 10:00 AM VA-TOBACCO QUIT 5 TO < 15 YRS [facility] [place] [facility] Dec 14, 2020 08:30 AM VA-TOBACCO FORMER USER [facility] [place] [facility] Dec 14, 2020 08:30 AM VA-TOBACCO QUIT 5 TO < 15 YRS [facility] [place] [facility] Nov 15, 2019 11:00 AM VA-TOBACCO FORMER USER [facility] [place] [facility] Nov 15, 2019 11:00 AM VA-TOBACCO QUIT 5 TO < 15 YRS [facility] [place] [facility] Oct 20, 2017 08:19 AM VA-TOBACCO FORMER USER [facility] [place] [facility] Oct 20, 2017 08:19 AM [...] Encounter. 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 Starting to feel better. Lost weight but now starting to regain. All endocrine labs were reviewed with the patient. Barriers/s supports for care: Lives alone [place]. Cooks for himself. Three meals a day. Medications for diabetes: INSULIN,ASPART(EQV-NOVLG) 11-14 based on /10/31 Indication: FOR DIABETES INSULIN,GLARGINE- 16 units BID BG readings: CGM Hgba1c? HEMOGLOBIN A1C TREND 03/29/2024 08:38 BLOOD 8.1 H 11/05/2023 07:31 BLOOD 8.1 H 08/06/2023 07:31 BLOOD 7.7 H 05/05/2023 07:48 BLOOD 7.2 H 01/03/2023 09:54 BLOOD 7.8 H Weight trend: 180 lbs BMI 29.11 lost and regaining Food insecurity no Physical activity: not much will be starting cardiac rehab. Carbohydrate counting: Episodes of hypoglycemia: rare Hypoglycemia unawareness: Neuropathy pain: Last eye evaluation: 02/[address] Last nephropathy screen MICROALBUMIN Mar 29, 2024@08:38 URINE mALB/Cr: 8.8 mg/G 0 - 29.9 FindingsCREATININE-EGFR 03/29/24 08:38 1.78 H 01/29/24 09:49 1.86 H 11/11/23 09:05 1.99 H Statin therapy: Mar 29 Nov 04 20242023 CHOL 99 140 mg/dL <7 - 199 TRIG 78 94 mg/dL 0 - 150 HDL 36 L 49 mg/dL 40 - 60 LDL 47 72 mg/dL 0 - 55 CAD: PVD On asa: no emergency kit/glucose tabs: glucagon n/a Active problems - Computerized Problem List is the source for the followin. Exposure to potentially hazardous substance ([facility] [id number]) 2. Cardiac pacemaker in situ 3. 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 Outpatient Medications (including Supplies): ACCU-CHEK GUIDE (GLUCOSE) TEST STRIP USE 1 STRIP TO TEST ACTIVE BLOOD SUGARS THREE TIMES A DAY ON INSULIN Indication: TYPE 2 DIABETES APIXABAN 5MG TAB TAKE ONE-HALF TABLET BY MOUTH TWICE DAILY ACTIVE Indication: FOR PREVENTION OF BLOOD CLOTS CARBOXYMETHYLCELLULOSE NA 0.5% OPH SOLN INSTILL 1 DROP ACTIVE INTO EACH EYE FOUR TIMES A DAY Indication: FOR DRY EYE GLUCOSE 4GM CHEW TAB CHEW THREE TO FOUR TABLETS BY MOUTH ACTIVE NEEDED FOR LOW BLOOD SUGAR BELOW 70 GLUCOSE SENSOR FREESTYLE LINK 2 USE 1 SENSOR DIRECTED ACTIVE EVERY 14 DAYS GLUCOSE SENSOR FREESTYLE LINK 3 USE 1 SENSOR DIRECTED ACTIVE EVERY 14 DAYS INSULIN,ASPART(EQV-NOVLG)100UN/M L FLXPEN INJECT ACTIVE DIRECTED SUBCUTANEOUSLY THREE TIMES A DAY 11-15 UNITS BREAKFAST BASED ON MEAL, 7 UNITS LUNCH, AND 10 UNITS DINNER Indication: FOR DIABETES INSULIN,GLARGINE-YFGN 100UNIT/ML PEN 3ML INJECT 13 UNITS ACTIVE SUBCUTANEOUSLY TWICE DAILY Indication: FOR DIABETES LANCET,SOFTCLIX USE 1 LANCET DIRECTED THREE TIMES A DAY ACTIVE TO TEST BLOOD SUGAR Indication: TYPE 2 DIABETES Non-VA AMIODARONE HCL 200MG TAB 200MG BY MOUTH TWICE DAILY ACTIVE Non-VA ATORVASTATIN CALCIUM 20MG TAB 10MG BY MOUTH ACTIVE empagliflozin 25 mg daily Non-VA FENOFIBRATE 54MG TAB 108MG BY MOUTH [...] CAP 5MG BY MOUTH ONCE DAILY ACTIVE vitamin B12 unknown dose Lidocaine ointment SHX: as above ROS:chronic cough no fever currently PE: affect pleasant appropriate speaking easily in full sentences Feet pulses marked decrease sensory to monofilament marked decrease lesions no Medical Decision Making: Diabetes mellitus with chronic kidney disease: Insulin Dose: glargine 18 units twice daily and aspart 13-16 units bfast, 8 units lunch, and 10 units dinner. Carbohydrate targets 45 gm TID Blood sugar targets 130-150 premeal and 150-200 afte r Hemoglobin A1c Targets 8 Hypertension currently mildly low, managed by Cardiology and coming up. Hyperlipidemia well controlled Team follow up DM education follow up lab BMP hgba1c next visit Insulin orders updated in cprs F/u three mos FTF Medication Reconciliation: Outpatient: Has the patient been taking medications as documented in the EMLR? No: Discrepencies were identified. See below. Essential Medication List for Review used to complete this medication reconciliation. INCLUDED IN THIS LIST: Alphabetical list of active outpatient [facility]) and dispensed from another [place] or [facility] facility (remote) as well as [...] Remote Allergy/ADR Data available for this patient [facility] [place] [facility] No Known Allergies Med Recon NoGloary (Tool #1) INCLUDED IN THIS LIST: Alphabetical list of active outpatient prescriptions dispensed from this [place] (local) and dispensed from another [facility] or [...] the patient into personal health records (i.e. payever) are NOT included in this list. Non-VA medications documented outside this [place], remote inpatient orders (regardless of status) and [...] DAILY FOR PREVENTION OF BLOOD CLOTS Rx# [id number] Last Released: 02/17/24 Qty/Days Supply: Rx Expiration Date: 02/10/25 Refills Remainin Indication: FOR PREVENTION OF BLOOD CLOTS Non-VA ATORVASTATIN CALCIUM 20MG TAB TAKE ONE-HALF TABLET BY MOUTH OUTPT CARBOXYMETHYLCELLULOSE NA 0.5% OPH SOLN (Status = Active) INSTILL 1 DROP INTO EACH EYE FOUR TIMES A DAY FOR DRY EYE Rx# [id number] Last Released: 03/08/24 Qty/Days Supply: 45 Rx Expiration Date: 03/04/25 Refills Remainin Indication: FOR DRY EYE Non-VA FENOFIBRATE 54MG TAB TAKE TWO TABLETS [...] FOR LOW BLOOD SUGAR BELOW 70 Rx# [id number] Last Released: 04/29/24 Qty/Days Supply: Rx Expiration Date: 08/20/24 Refills Remainin OUTPT INSULIN,ASPART (NOVOLOG PEN) INJ (Status = Pending) INJECT DIRECTED 100UNIT/ML SUBCUTANEOUSLY THREE TIMES A DAY 13-16 units bfast based on meal, 8 units lunch, and 10 units dinner Please hold until requested Login Date: 05/05/24 Qty/Days Supply: Refills Ordered: 1 OUTPT INSULIN,ASPART(EQV-NOVLG)100UN/M L FLXPEN (Status = Discontinued) INJECT DIRECTED SUBCUTANEOUSLY THREE TIMES A DAY 8 UNITS FOR EGGS, 12 UNITS FOR CEREAL AM, 5 UNITS NOON, 9 UNITS DINNER Rx# [id number] Last Released: 11/17/23 Qty/Days Supply: Rx Expiration Date: 11/13/24 Refills Remainin Indication: FOR DIABETES OUTPT INSULIN,ASPART(EQV-NOVLG)100UN/M L FLXPEN (Status = Discontinued) INJECT DIRECTED SUBCUTANEOUSLY THREE TIMES A DAY 9 UNITS FOR EGGS, 15 UNITS FOR CEREAL BREAKFAST, 7 UNITS NOON, 10 UNITS DINNER Rx# [id number] Last Released: Qt Supply: Rx Expiration Date: 02/24/25 Refills Remainin Indication: FOR DIABETES OUTPT INSULIN,ASPART(EQV-NOVLG)100UN/M L FLXPEN (Status = Discontinued) INJECT DIRECTED SUBCUTANEOUSLY THREE TIMES A DAY 10-14 UNITS BREAKFAST BASED ON MEAL, 7 UNITS NOON, 10 UNITS DINNER. Rx# [id number] Last Released: 02/26/24 Qty/Days Supply: Rx Expiration Date: 02/25/25 Refills Remainin Indication: FOR DIABETES OUTPT INSULIN,ASPART(EQV-NOVLG)100UN/M L FLXPEN (Status = Discontinued) INJECT DIRECTED SUBCUTANEOUSLY THREE TIMES A DAY 11-15 UNITS BREAKFAST BASED ON MEAL, 7 UNITS LUNCH, AND 10 UNITS DINNER Rx# [id number] Last Released: 05/04/24 Qty/Days Supply: Rx Expiration Date: 04/29/25 Refills Remainin Indication: FOR DIABETES OUTPT INSULIN,GLARGINE 100 UNT/ML 3ML SOLOSTAR (Status = Pending) INJECT 18 UNITS SUBCUTANEOUSLY TWICE DAILY please hold until requested Login Date: 05/05/24 Qty/Days Supply: Refills Ordered: 1 OUTPT INSULIN,GLARGINE-YFGN 100UNIT/ML PEN 3ML (Status = Discontinued) INJECT 10 UNITS SUBCUTANEOUSLY TWICE DAILY Rx# [id number] Last Released: Qt Supply: Rx Expiration Date: 08/13/24 Refills Remainin Indication: FOR DIABETES OUTPT INSULIN,GLARGINE-YFGN 100UNIT/ML PEN 3ML (Status = Discontinued) INJECT 13 UNITS SUBCUTANEOUSLY TWICE DAILY Rx# [id number] Last Released: 03/01/24 Qty/Days Supply: Rx Expiration Date: 02/25/25 Refills Remainin Indication: FOR DIABETES OUTPT LIDOCAINE 5% OINT (Status = Pending) APPLY LIBERAL AMOUNT TOPICALLY TWICE DAILY NEEDED Login Date: 05/05/24 Qty/Days Supply: 70/ Refills Ordered: 3 Non-VA METOPROLOL TARTRATE 25MG TAB TAKE ONE-HALF TABLET BY MOUTH TWICE DAILY Non-VA TERAZOSIN HCL 5MG CAP TAKE 1 CAPSULE BY MOUTH ONCE DAILY -------- SUPPLIES -------- OUTPT ACCU-CHEK GUIDE (GLUCOSE) TEST STRIP (Status = Active) USE 1 STRIP TO TEST BLOOD SUGARS THREE TIMES A DAY TYPE 2 DIABETES ON INSULIN Rx# [id number] Last Released: 01/20/24 Qty/Days Supply: 270/ Rx Expiration Date: 01/13/25 Refills Remainin Indication: TYPE 2 DIABETES OUTPT ACCU-CHEK GUIDE ME (GLUCOSE) METER (Status = ) USE METER TO TEST BLOOD SUGARS THREE TIMES A DAY TYPE 2 DIABETES Rx# [id number] Last Released: Supply: 04/22 Rx Expiration Date: 02/12/24 Refills Remainin Indication: TYPE 2 DIABETES OUTPT GLUCOSE SENSOR FREESTYLE LINK 2 (Status = Active) USE 1 SENSOR DIRECTED EVERY 14 DAYS Rx# [id number] Last Released: 03/04/24 Qty/Days Supply: 05/21 Rx Expiration Date: 11/13/24 Refills Remainin OUTPT GLUCOSE SENSOR FREESTYLE LINK 3 (Status = Discontinued) USE 1 SENSOR DIRECTED EVERY 14 DAYS Rx# [id number] Last Released: 01/07/24 Qty/Days Supply: 05/21 Rx Expiration Date: 11/14/24 Refills Remainin OUTPT GLUCOSE SENSOR FREESTYLE LINK 3 (Status = Discontinued) USE 1 SENSOR DIRECTED EVERY 14 DAYS Rx# [id number] Last Released: Qty/Days Supply: 05/21 Rx Expiration Date: 02/23/25 Refills Remainin OUTPT GLUCOSE SENSOR FREESTYLE LINK 3 (Status = Active) USE 1 SENSOR DIRECTED EVERY 14 DAYS Rx# [id number] Last Released: 03/09/24 Qty/Days Supply: 05/21 Rx Expiration Date: 02/24/25 Refills Remainin OUTPT LANCET,SOFTCLIX (Status = Active) USE 1 LANCET DIRECTED THREE TIMES A DAY TO TEST BLOOD SUGAR Rx# [id number] Last Released: 01/20/24 Qty/Days Supply: 300/90 Rx Expiration Date: 01/13/25 Refills Remainin Indication: TYPE 2 DIABETES /jus/ MIAH BUTTS MD STAFF PHYSICIAN Signed: 05/05/2024 11:44 MIAH BUTTS [facility]
--- OUTSIDE RECORDS SUMMARY | 2024-07-20 08:31 | XMS_ITS | Continuity of Care Document ---
Author Name [facility] Organization [facility] Care Team Providers Care Maintenance Instructor Name Role Phone [facility] Unavailable Unavailable Problems Combined list of problems [...] [place] [facility] Exposure to potentially hazardous substance ([facility] [id number]) Active Condition Jul 01 Entered By: KAYA [...] diabetes mellitus [facility] Diagnosis: ICD-10-CM E11.8 Type 2 diabetes mellitus with unspecified complications Active Diagnosis [facility] Diagnosis: ICD-10-CM G47.30 Sleep apnea, unspecified Active Diagnosis [facility] Diagnosis: ICD-10-CM Z79.01 retirement (current) use of anticoagulants Active Diagnosis [facility] Diagnosis: ICD-10-CM E11.42 Type 2 diabetes mellitus with diabetic polyneuropathy Active Diagnosis [facility] Diagnosis: ICD-10-CM Z51.81 Encounter for therapeutic drug level monitoring Active Diagnosis [facility] ([facility]) Diagnosis: ICD-10-CM H40.013 Open angle with borderline findings, low risk, bilateral Active Diagnosis [facility] Diagnosis: ICD-10-CM E11.9 Type 2 diabetes mellitus without complications Active Diagnosis [facility] Diagnosis: ICD-10-CM Z04.89 Encounter for examination and observation for oth reasons Active Diagnosis [facility] Diagnosis: ICD-10-CM Z74.09 Other reduced mobility Active Diagnosis [facility] Diagnosis: ICD-10-CM Z95.0 Presence of cardiac pacemaker Active Diagnosis [facility] Miguel [facility] Medications Combined list of outpatient medications from Department of Defense and Veterans Affairs facilities.Medications provided include 1) outpatient medications from the last 15 months, and 2) patient-reported medications. Medication Details Route Status Patient Instructions Prescription Expires Prescription Number Last Dispense Date Ordering Provider Order Date Order Qty Source AMIODARONE HCL (AMIODARONE HCL), 200MG, TABLET, ORAL, [facility], 60 ea. BOTTLE Cancele d [id number] : 2023 0 Pharmac y Data Transac tion Service Facilit y AMIODARONE HCL (AMIODARONE HCL), 200MG, TABLET, ORAL, [facility], 60 ea. BOTTLE Active [id number] 2023 180 Pharmac y Data Transac tion Service Facilit y AMIODARONE HCL (AMIODARONE HCL), 200MG, TABLET, ORAL, [facility], 60 ea. BOTTLE Active [id number] 2023 180 Pharmac y Data Transac tion Service Facilit y AMIODARONE HCL (AMIODARONE HCL), 200MG, TABLET, ORAL, [facility], 60 ea. BOTTLE Active [id number] 2023 90 Pharmac y Data Transac tion Service Facilit y AMIODARONE HCL 200MG TAB TAKE ONE TABLET BY MOUTH ONCE DAILY ORAL ACTIVE ELEUTERIO TIRADO 2024 [facility] [place] AMOX TR-POTASSIU M CLAVULANATE (AMOXICILLI N/POTASSIUM CLAV), 875-125 MG, TABLET, ORAL, [facility], 20 ea. BOTTLE Active [id number] 2023 14 Pharmac y Data Transac tion Service Facilit y APIXABAN 5MG TAB TAKE ONE-HALF TABLET BY MOUTH TWICE DAILY FOR PREVENTI ON OF BLOOD CLOTS ORAL ACTIVE 02/10/2025 [id number] AJAY APODACA 2023 180 [facility] CARBOXYMETH YLCELLULOSE NA 0.5% SOLN,OPH INSTILL 1 DROP INTO EACH EYE FOUR TIMES A DAY FOR DRY EYE OPHTHA LMIC ACTIVE 03/04/2025 [id number] PAYTON SHELLEY 2023 45 [facility] COZAAR (BRAND) 50 MG ORAL TAB TAKE ONE TABLET BY MOUTH ONCE DAILY FOR BLOOD PRESSURE /HEART Discont inued 12/25/2023 [id number] GEORGINA ARITA JAWJULISSA 2023 90 [place] [facility] CYANOCOBALA MIN 1000MCG TAB TAKE ONE TABLET BY MOUTH ONCE DAILY ORAL ACTIVE ELEUTERIO TIRADO 2024 [facility] [place] DEXTROSE 4 GM ORAL CHEW CHEW THREE TO FOUR TABLETS BY MOUTH NEEDED FOR LOW BLOOD SUGAR BELOW 70 Active 08/20/2024 [id number] MIAH BUTTS 2023 20 [facility] DEXTROSE 4 GM ORAL CHEW CHEW THREE TO FOUR TABLETS BY MOUTH NEEDED FOR LOW BLOOD SUGAR BELOW 70 Discont inued 01/10/2024 [id number] MIAH BUTTS 2023 20 [facility] EMPAGLIFLOZ IN 10 MG ORAL TAB TAKE ONE-HALF TABLET BY MOUTH ONCE DAILY Discont inued 05/07/2024 [id number] MIAH BUTTS 2023 45 [facility] EMPAGLIFLOZ IN 10MG TAB TAKE ONE-HALF TABLET BY MOUTH ONCE DAILY ORAL DISCONT INUED BY PROVIDE R 05/07/2024 [id number] BUTTS,AL ICE 2023 45 [facility] EMPAGLIFLOZ IN 25 MG ORAL TAB TAKE ONE-HALF TABLET BY MOUTH ONCE DAILY Discont inued 01/28/2024 [id number] MIAH BUTTS 2023 45 [facility] EMPAGLIFLOZ IN 25MG TAB TAKE ONE-HALF TABLET BY MOUTH ONCE DAILY ORAL DISCONT INUED (EDIT) 01/28/2024 [id number] BUTTS,AL ICE 2022 45 [facility] EMPAGLIFLOZ IN 25MG TAB TAKE ONE TABLET BY MOUTH ONCE DAILY ORAL ACTIVE BUTTS,AL ICE 2024 [facility] FENOFIBRATE (fenofibrat e), 54 MG, TABLET, ORAL, [facility], 90 ea. BOTTLE Cancele d [id number] : 2023 0 Pharmac y Data Transac tion Service Facilit y FENOFIBRATE (fenofibrat e), 54 MG, TABLET, ORAL, [facility], 90 ea. BOTTLE Active [id number] 2023 180 Pharmac y Data Transac tion Service Facilit y FENOFIBRATE 54MG TAB TAKE TWO TABLETS BY MOUTH ONCE DAILY ORAL ACTIVE CASSIDY ARITA JAWED 2020 [facility] FERROUS SO4 325MG TAB TAKE ONE TABLET BY MOUTH ONCE DAILY ORAL ACTIVE ELEUTERIO TIRADO 2024 [facility] FINASTERIDE (FINASTERID E), 5 MG, TABLET, ORAL, [facility], 90 ea. BOTTLE Active [id number] 2023 90 Pharmac y Data Transac tion Service Facilit y FINASTERIDE (FINASTERID E), 5 MG, TABLET, ORAL, [facility], 90 ea. BOTTLE Active [id number] 2023 90 Pharmac y Data Transac tion Service Facilit y FINASTERIDE 5MG TAB TAKE ONE TABLET BY MOUTH ONCE DAILY ORAL ACTIVE CASSIDY ARITA JAWED 2021 [facility] FLUTICASONE 500MCG/SALM ETEROL 50MCG INHL,ORAL,D ISKUS,60 INHALE 1 PUFF BY MOUTH ONCE DAILY RESPIR ATORY (INHAL ATION) ACTIVE CASSIDY ARITA JAW 2020 [facility] FUROSEMIDE (furosemide ), 40 MG, TABLET, ORAL, AVKARE, 1000 ea. BOTTLE Active [id number] 4 2023 180 Pharmac y Data Transac tion Service Facilit y FUROSEMIDE (furosemide ), 40 MG, TABLET, ORAL, [facility], 1000 ea. BOTTLE Active [id number] 2023 90 Pharmac y Data Transac tion Service Facilit y FUROSEMIDE (FUROSEMIDE ), 40MG, TABLET, ORAL, [facility] 1000 ea. BOTTLE Active [id number] 2023 30 Pharmac y Data Transac tion Service Facilit y FUROSEMIDE (FUROSEMIDE ), 40MG, TABLET, ORAL, [facility] 1000 ea. BOTTLE Active [id number] 2023 30 Pharmac y Data Transac tion Service Facilit y FUROSEMIDE 40MG TAB TAKE ONE TABLET BY MOUTH ONCE DAILY ORAL ACTIVE ELEUTERIO TIRADO I A 2024 [facility] GLUCOSE 4GM TAB,CHEW CHEW THREE TO FOUR TABLETS BY MOUTH NEEDED FOR LOW BLOOD SUGAR BELOW 70 ORAL ACTIVE 08/20/2024 [id number] BUTTS,AL ICE 2023 20 [facility] GLUCOSE 4GM TAB,CHEW CHEW THREE TO FOUR TABLETS BY MOUTH NEEDED FOR LOW BLOOD SUGAR BELOW 70 ORAL DISCONT INUED 01/10/2024 [id number] BUTTS,AL ICE 2022 20 [facility] Insulin Aspart 100U/mL, Injection, 3mL Pen Injector INJECT 7 UNITS SUBCUTAN EOUSLY EVERY MORNING AND INJECT 8 UNITS AT NOON AND INJECT 15 UNITS EVERY EVENING BEFORE SUPPER Active 08/13/2024 [id number] MIAH BUTTS 2023 10 [facility] Insulin Aspart 100U/mL, Injection, 3mL Pen Injector INJECT 18 UNITS SUBCUTAN EOUSLY EVERY MORNING AND INJECT 7 UNITS AT NOON AND INJECT 11 UNITS EVERY EVENING BEFORE SUPPER Discont inued 05/07/2024 [id number] MIAH BUTTS 2023 15 [facility] INSULIN,ASP ART,HUMAN (EQV-NOVOLO G) 100 UNIT/ML,FLE XPEN,3ML INJECT DIRECTED 100UNIT/ ML SUBCUTAN EOUSLY THREE TIMES A DAY 13-16 UNITS BREAKFAS T BASED ON MEAL, 8 UNITS LUNCH, AND 10 UNITS DINNER SUBCUT ANEOUS HOLD 05/06/2025 [id number] BUTTS,AL ICE 2024 15 [facility] [place] INSULIN,ASP ART,HUMAN (EQV-NOVOLO G) 100 UNIT/ML,FLE XPEN,3ML INJECT DIRECTED SUBCUTAN EOUSLY THREE TIMES A DAY 11-15 UNITS BREAKFAS T BASED ON MEAL, 7 UNITS LUNCH, AND 10 UNITS DINNER SUBCUT ANEOUS DISCONT INUED (EDIT) 04/29/2025 [id number] BUTTS,AL ICE 2024 15 [facility] INSULIN,ASP ART,HUMAN (EQV-NOVOLO G) 100 UNIT/ML,FLE XPEN,3ML INJECT DIRECTED SUBCUTAN EOUSLY THREE TIMES A DAY 10-14 UNITS BREAKFAS T BASED ON MEAL, 7 UNITS NOON, 10 UNITS DINNER. SUBCUT ANEOUS DISCONT INUED (EDIT) 02/25/2025 [id number] BUTTS,AL ICE 2023 15 [facility] INSULIN,ASP ART,HUMAN (EQV-NOVOLO G) 100 UNIT/ML,FLE XPEN,3ML INJECT DIRECTED SUBCUTAN EOUSLY THREE TIMES A DAY 9 UNITS FOR EGGS, 15 UNITS FOR CEREAL BREAKFAS T, 7 UNITS NOON, 10 UNITS DINNER 9 UNITS FOR EGGS, 15 UNITS FOR CEREAL BREAKFAS T, 7 UNITS NOON, 10 UNITS DINNER SUBCUT ANEOUS DISCONT INUED 02/24/2025 [id number] BUTTS,AL ICE 2023 15 [facility] INSULIN,ASP ART,HUMAN (EQV-NOVOLO G) 100 UNIT/ML,FLE XPEN,3ML INJECT DIRECTED SUBCUTAN EOUSLY THREE TIMES A DAY 8 UNITS FOR EGGS, 12 UNITS FOR CEREAL AM, 5 UNITS NOON, 9 UNITS DINNER SUBCUT ANEOUS DISCONT INUED (EDIT) 11/13/2024 [id number] BUTTS,AL ICE 2023 15 [facility] INSULIN,ASP ART,HUMAN (EQV-NOVOLO G) 100 UNIT/ML,FLE XPEN,3ML INJECT 7 UNITS SUBCUTAN EOUSLY EVERY MORNING AND INJECT 8 UNITS AT NOON AND INJECT 15 UNITS EVERY EVENING BEFORE SUPPER SUBCUT ANEOUS DISCONT INUED (EDIT) 08/13/2024 [id number] BUTTS,AL ICE 2023 10 [facility] [place] [facility] INSULIN,ASP ART,HUMAN (EQV-NOVOLO G) 100 UNIT/ML,FLE XPEN,3ML INJECT 18 UNITS SUBCUTAN EOUSLY EVERY MORNING AND INJECT 7 UNITS AT NOON AND INJECT 11 UNITS EVERY EVENING BEFORE SUPPER SUBCUT ANEOUS DISCONT INUED (EDIT) 05/07/2024 [id number] BUTTS,AL ICE 2023 15 [facility] [place] INSULIN,GLA RGINE,HUMAN 100 UNIT/ML INJ,SOLOSTA R,3ML INJECT 18 UNITS SUBCUTAN EOUSLY TWICE DAILY SUBCUT ANEOUS HOLD 05/06/2025 [id number] BUTTS,AL ICE 2024 15 [facility] [place] INSULIN,GLA RGINE-YFGN 100UNIT/ML INJ PEN,3ML INJECT 13 UNITS SUBCUTAN EOUSLY TWICE DAILY SUBCUT ANEOUS DISCONT INUED BY PROVIDE R 02/25/2025 [id number] BUTTS,AL ICE 2023 15 [facility] [place] INSULIN,GLA RGINE-YFGN 100UNIT/ML INJ PEN,3ML INJECT 10 UNITS SUBCUTAN EOUSLY TWICE DAILY SUBCUT ANEOUS DISCONT INUED BY PROVIDE R 08/13/2024 [id number] BUTTS,AL ICE 2023 10 [facility] INSULIN,GLA RGINE-YFGN 100UNIT/ML INJ PEN,3ML INJECT 38 UNITS SUBCUTAN EOUSLY AT BEDTIME SUBCUT ANEOUS DISCONT INUED (EDIT) 05/07/2024 [id number] BUTTS,AL ICE 2023 15 [facility] LIDOCAINE 5 % TOP OINT [30 GM] APPLY LIBERAL AMOUNT TOPICALL Y TWICE DAILY NEEDED FOR NEUROPAT HY PAIN 12/17/2023 [id number] MIAH BUTTS 2023 [facility] [facility] LIDOCAINE 5% OINT,TOP APPLY LIBERAL AMOUNT TOPICALL Y TWICE DAILY NEEDED NERVE PAIN TOPICA L ACTIVE 05/06/2025 [id number] BUTTS,AL ICE 2024 70 [facility] [place] LIDOCAINE 5% OINT,TOP APPLY LIBERAL AMOUNT TOPICALL Y TWICE DAILY NEEDED FOR NEUROPAT HY PAIN TOPICA L 12/17/2023 [id number] BUTTS,AL ICE 2022 70 [facility] LOSARTAN 50MG TAB TAKE ONE TABLET BY MOUTH ONCE DAILY FOR BLOOD PRESSURE /HEART ORAL DISCONT INUED BY PROVIDE R 12/25/2023 [id number] [facility] 2022 90 [facility] METOPROLOL TARTRATE 25MG TAB TAKE ONE-HALF TABLET BY MOUTH TWICE DAILY ORAL ACTIVE [facility] 2023 [facility] TERAZOSIN HCL (TERAZOSIN HCL), 5MG, CAPSULE, ORAL, [facility], 1000 ea. BOTTLE Active [id number] 4 2023 90 Pharmac y Data Transac tion Service Facilit y TERAZOSIN HCL 5MG CAP TAKE 1 CAPSULE BY MOUTH ONCE DAILY ORAL ACTIVE [facility] REJI [facility] 2020 [facility] WIXELA INHUB (fluticason e propionate/ salmeterol xinafoate), 250-50 MCG, BLST W/DEV, INHALATION, MYLAN, 60 ea. BLIST PACK Cancele d [id number] : 2023 0 Pharmac y Data Transac tion Service Facilit y Immunizations Combined list of available immunizations from the Department of Defense and Veterans Affairs facilities. Immunization Series Date Given Administered By Site Reaction Lot Number CVX Code Drug Glove Pairer Status Comments Source INFLUENZA, UNSPECIFIED FORMULATION 2023 88 complet ed Completed Series, HISTORICA L INFORMATI ON - FROM PATIENT'S RECALL, [facility] INFLUENZA, HIGH-DOSE, QUADRIVALENT 2022 [facility]AMPOS LEFT DELTO ID [id number] 197 complet ed Completed Series, ADMINISTE RED AT [place], [facility] COVID-19 (MODERNA), MRNA, LNP-S, PF, 100 MCG OR 50 MCG DOSE 3 2020 207 complet ed MOD; [id number]; 2 [facility] INFLUENZA, UNSPECIFIED FORMULATION 2020 88 complet ed [facility] COVID-19 (MODERNA), MRNA, LNP-S, PF, 100 MCG/0.5 ML DOSE 2 2020 207 complet ed MOD; [id number]; 1 [facility] COVID-19 (MODERNA), MRNA, LNP-S, PF, 100 MCG/0.5 ML DOSE 1 2020 207 complet ed MOD; [id number]; 1 [facility] [...] Reference Range Date Interpretation Specimen Comments Source LIPID PANEL, NON FASTING CHOLESTEROL [MASS/VOLUM E] IN SERUM OR PLASMA 89 mg/dL 06/30 Specimen Type: SERUM No comment entered. Ordering Provider: SUNNY APODACA Report Released Date/Time: Jun 24, 2024 11:02 AM Reporting Lab: [facility] [address] [address] Performing Lab: [facility] [address] [address] [facility] LIPID PANEL, NON FASTING TRIGLYCERID E [MASS/VOLUM E] IN SERUM OR PLASMA 80 mg/dL 0 - 150 06/30 Specimen Type: SERUM No comment entered. Ordering Provider: SUNNY APODACA Report Released Date/Time: Jun 24, 2024 11:02 AM Reporting Lab: [address] [address] Performing Lab: [address] [address] [facility] LIPID PANEL, NON FASTING CHOLESTEROL IN LDL [MASS/VOLUM E] IN SERUM OR PLASMA BY CALCULATION 42 mg/dL 0 - 129 06/30 Specimen Type: SERUM No comment entered. Ordering Provider: SUNNY APODACA Report Released Date/Time: Jun 24, 2024 11:02 AM Reporting Lab: [address] [address] Performing Lab: [facility] [address] [facility] LIPID PANEL, NON FASTING CHOLESTEROL .TOTAL/CHOL ESTEROL IN HDL [MASS RATIO] IN SERUM OR PLASMA 2.9 06/30 Specimen Type: SERUM No comment entered. Ordering Provider: SUNNY APODACA Report Released Date/Time: Jun 24, 2024 11:02 AM Reporting Lab: [address] [address] Performing Lab: [address] [place] [address] [facility] [place] [facility] LIPID PANEL, NON FASTING CHOLESTEROL IN HDL [MASS/VOLUM E] IN SERUM OR PLASMA 31 mg/dL 40 06/30 L Specimen Type: SERUM No comment entered. Ordering Provider: SUNNY APODACA Report Released Date/Time: Jun 24, 2024 11:02 AM Reporting Lab: [facility] [place] [facility] [address] [address] Performing Lab: [facility] [place] [facility] [address] [address] [facility] [place] [facility] PT & INR (PROTIME) INR IN PLATELET POOR PLASMA BY COAGULATION ASSAY 1.5 06/30 Specimen Type: PLASMA No comment entered. Ordering Provider: SUNNY APODACA Report Released Date/Time: Jun 24, 2024 11:02 AM Reporting Lab: [facility]N [place] [address] [address] Performing Lab: [facility] [place] [address] [address] [facility]N [place] [facility] PT & INR (PROTIME) PROTHROMBIN TIME (PT) 16.1 s 10.0 - 13.1 06/30 H Specimen Type: PLASMA No comment entered. Ordering Provider: SUNNY APODACA Report Released Date/Time: Jun 24, 2024 11:02 AM Reporting Lab: [facility] [place] [address] [address] Performing Lab: [facility] [place] [address] [address] [facility] [place] [facility] LIVER FUNCTION PROTEIN [MASS/VOLUM E] IN SERUM OR PLASMA 7.6 g/dL 6.4 - 8.3 06/30 Specimen Type: SERUM No comment entered. Ordering Provider: SUNNY APODACA Report Released Date/Time: Jun 24, 2024 11:02 AM Reporting Lab: [facility] [place] [address] [address] Performing Lab: [facility] [place] [place] [facility] [address] [address] [facility] [place] [facility] LIVER FUNCTION ALBUMIN [MASS/VOLUM E] IN SERUM OR PLASMA BY BROMOCRESOL PURPLE (BCP) DYE BINDING METHOD 3.0 g/dL 3.2 - 4.6 06/30 L Specimen Type: SERUM No comment entered. Ordering Provider: SUNNY APODACA Report Released Date/Time: Jun 24, 2024 11:02 AM Reporting Lab: [facility] [place] [facility] [address] [address] Performing Lab: [facility] [place] [facility] [address] [address] [facility] [place] [facility] LIVER FUNCTION ALKALINE PHOSPHATASE [ENZYMATIC ACTIVITY/VO LUME] IN SERUM OR PLASMA 102 U/L 40 - 150 06/30 Specimen Type: SERUM No comment entered. Ordering Provider: SUNNY APODACA Report Released Date/Time: Jun 24, 2024 11:02 AM Reporting Lab: [facility] [place] [facility] [address] [address] Performing Lab: [facility] [place] [facility] [address] [address] [facility] TRN [facility]OSPITALUSE [facility] LIVER FUNCTION ASPARTATE AMINOTRANSF ERASE [ENZYMATIC ACTIVITY/VO LUME] IN SERUM OR PLASMA BY WITH P-5'-P 57 U/L 5 - 34 06/30 H Specimen Type: SERUM No comment entered. Ordering Provider: SUNNY APODACA Report Released Date/Time: Jun 24, 2024 11:02 AM Reporting Lab: [facility] [place] [facility] [address] [address] Performing Lab: [facility] [place] [place] [facility] [address] [address] [facility] [place] [facility] LIVER FUNCTION ALANINE AMINOTRANSF ERASE [ENZYMATIC ACTIVITY/VO LUME] IN SERUM OR PLASMA BY WITH P-5'-P 34 U/L 06/30 Specimen Type: SERUM No comment entered. Ordering Provider: SUNNY APODACA Report Released Date/Time: Jun 24, 2024 11:02 AM Reporting Lab: [facility] [place] [facility] [address] [address] Performing Lab: [facility] [place] [facility] [address] [address] [facility] [place] [facility] LIVER FUNCTION BILIRUBIN.T OTAL [MASS/VOLUM E] IN SERUM OR PLASMA 0.6 mg/dL 0.2 - 1.2 06/30 Specimen Type: SERUM No comment entered. Ordering Provider: SUNNY APODACA Report Released Date/Time: Jun 24, 2024 11:02 AM Reporting Lab: [facility] [place] [facility] [address] [address] Performing Lab: [facility] [place] [facility] [address] [address] [facility] [place] [facility] BASIC METABOLIC PANEL (non-fast ing) UREA NITROGEN [MASS/VOLUM E] IN SERUM OR PLASMA 24 mg/dL 8 - 26 06/30 Specimen Type: SERUM No comment entered. Ordering Provider: SUNNY APODACA Report Released Date/Time: Jun 24, 2024 11:02 AM Reporting Lab: [facility] [place] [facility] [address] [address] Performing Lab: [facility] [place] [facility] [address] [address] [facility] [place] [facility] BASIC METABOLIC PANEL (non-fast ing) GLUCOSE [MASS/VOLUM E] IN SERUM OR PLASMA 113 mg/dL 65 - 100 06/30 H Specimen Type: SERUM No comment entered. Ordering Provider: SUNNY APODACA Report Released Date/Time: Jun 24, 2024 11:02 AM Reporting Lab: [facility] [place] [facility] [address] [address] Performing Lab: [facility] [place] [facility] [address] [address] [facility] [place] [facility] BASIC METABOLIC PANEL (non-fast ing) SODIUM [MOLES/VOLU ME] IN SERUM OR PLASMA 136 mmol/L 136 - 145 06/30 Specimen Type: SERUM No comment entered. Ordering Provider: SUNNY APODACA Report Released Date/Time: Jun 24, 2024 11:02 AM Reporting Lab: [facility]ITALRRUSSELLVILLE [facility]ITALN [facility]ITALUSEM[facility] [address] [address] Performing Lab: [facility] HOSPITALRDECATUR MORGAN HOSPITALTRN [facility]OSPITALUSEMOUNT [facility]IN[facility] [address] [address] [facility] BASIC METABOLIC PANEL (non-fast ing) POTASSIUM [MOLES/VOLU ME] IN SERUM OR PLASMA 4.3 mmol/L 3.5 - 5.1 06/30 Specimen Type: SERUM No comment entered. Ordering Provider: SUNNY APODACA Report Released Date/Time: Jun 24, 2024 11:02 AM Reporting Lab: [facility]OSPITALRDECATUR MORGAN HOSPITALTRN [facility]OS[facility]ITALUSEM[facility] [address] [address] Performing Lab: [facility]OSPITALRDECATUR MORGAN HOSPITALTRN [facility]OSPITALUSEMOUNT [facility] [address] [address] [facility] BASIC METABOLIC PANEL (non-fast ing) CHLORIDE [MOLES/VOLU ME] IN SERUM OR PLASMA 104 mmol/L 98 - 107 06/30 Specimen Type: SERUM No comment entered. Ordering Provider: SUNNY APODACA Report Released Date/Time: Jun 24, 2024 11:02 AM Reporting Lab: [facility]RL TRN [facility]OSPITALUSEM[facility] [address] [address] Performing Lab: [facility]OSPITALRDECATUR MORGAN [facility]OSPITALTRN [facility]ITALUSEM[facility] [address] [address] [facility] [facility]ITALUSE [facility] BASIC METABOLIC PANEL (non-fast ing) CARBON DIOXIDE, TOTAL [MOLES/VOLU ME] IN SERUM OR PLASMA 24 meq/L 23 - 31 06/30 Specimen Type: SERUM No comment entered. Ordering Provider: SUNNY APODACA Report Released Date/Time: Jun 24, 2024 11:02 AM Reporting Lab: [facility] [place] [place] [facility] [address] [address] Performing Lab: [place] [facility] [place] [facility] [address] [address] [facility]ITALRL [facility] [place] [facility] BASIC METABOLIC PANEL (non-fast ing) CALCIUM [MASS/VOLUM E] IN SERUM OR PLASMA 8.8 mg/dL 8.8 - 10 06/30 Specimen Type: SERUM No comment entered. Ordering Provider: SUNNY APODACA Report Released Date/Time: Jun 24, 2024 11:02 AM Reporting Lab: [facility]ITALRL [place] [place] [facility] [address] [address] Performing Lab: [facility]ITALRL WSTRN [facility]ITALUSEM[facility] [address] [address] [facility]OSPITALRRUSSELLVILLE HOSPITALN [facility] HOSPITALUSE [facility] BASIC METABOLIC PANEL (non-fast ing) CREATININE [MASS/VOLUM E] IN SERUM OR PLASMA 1.64 mg/dL 0.72 - 1.25 06/30 H Specimen Type: SERUM No comment entered. Ordering Provider: SUNNY APODACA Report Released Date/Time: Jun 24, 2024 11:02 AM Reporting Lab: [facility]ITALRL TRN [facility] HOSPITALUSETS [facility] [address] [address] Performing Lab: [facility]ITALRL WSTRN [facility] HOSPITALUSE[address] [address] [place] [facility]USE [facility] BASIC METABOLIC PANEL (non-fast ing) GLOMERULAR FILTRATION RATE/1.73 SQ M.PREDICTED [VOLUME RATE/AREA] IN SERUM, PLASMA OR BLOOD BY CREATININE- BASED FORMULA (CKD-EPI 2020) 41 mL/min 60 06/30 L Specimen Type: SERUM No comment entered. Ordering Provider: SUNNY APODACA Report Released Date/Time: Jun 24, 2024 11:02 AM Reporting Lab: [place] [facility] [place] [facility] [address] [address] Performing Lab: [facility]N [facility]OSPITALUSE[address] [address] [facility]RL TRN [facility]OSPITALUSE TS [facility] CBC LEUKOCYTES [#/VOLUME] IN BLOOD BY AUTOMATED COUNT 5.42 10*3/u L 4.50 - 11.00 06/30 Specimen Type: BLOOD No comment entered. Ordering Provider: SUNNY APODACA Report Released Date/Time: Jun 24, 2024 11:02 AM Reporting Lab: [facility] [place] [facility] [address] [address] Performing Lab: [facility] [place] [facility] [address] [address] [facility] [place] [facility] CBC ERYTHROCYTE S [#/VOLUME] IN BLOOD BY AUTOMATED COUNT 3.32 10*6/u L 4.23 - 5.66 06/30 L Specimen Type: BLOOD No comment entered. Ordering Provider: SUNNY APODACA Report Released Date/Time: Jun 24, 2024 11:02 AM Reporting Lab: [facility] [place] [address] [address] Performing Lab: [facility] [place] [address] [address] [facility] [place] [facility] CBC HEMOGLOBIN [MASS/VOLUM E] IN BLOOD 10.4 g/dL 12.8 - 17 06/30 L Specimen Type: BLOOD No comment entered. Ordering Provider: SUNNY APODACA Report Released Date/Time: Jun 24, 2024 11:02 AM Reporting Lab: [facility] [place] [address] [address] Performing Lab: [facility] [place] [address] [address] [facility] [place] [facility] CBC HEMATOCRIT [VOLUME FRACTION] OF BLOOD BY AUTOMATED COUNT 33.4 39.2 - 50.4 06/30 L Specimen Type: BLOOD No comment entered. Ordering Provider: SUNNY APODACA Report Released Date/Time: Jun 24, 2024 11:02 AM Reporting Lab: [facility] [place] [address] [address] Performing Lab: [facility] [place] [facility] [address] [address] [facility] [place] [facility] CBC MCV [ENTITIC VOLUME] BY AUTOMATED COUNT 100.6 fL 82 - 99 06/30 H Specimen Type: BLOOD No comment entered. Ordering Provider: SUNNY APODACA Report Released Date/Time: Jun 24, 2024 11:02 AM Reporting Lab: [facility] [place] [facility] [address] [address] Performing Lab: [facility] [place] [facility] [address] [address] [facility] [place] [facility] CBC MCHC [MASS/VOLUM E] BY AUTOMATED COUNT 31.1 g/dL 30.8 - 35.1 06/30 Specimen Type: BLOOD No comment entered. Ordering Provider: SUNNY APODACA Report Released Date/Time: Jun 24, 2024 11:02 AM Reporting Lab: [facility] [place] [facility] [address] [address] Performing Lab: [facility] [place] [facility] [address] [address] [facility] [place] [facility] CBC PLATELETS [#/VOLUME] IN BLOOD BY AUTOMATED COUNT 242 10*3/u L 140 - 360 06/30 Specimen Type: BLOOD No comment entered. Ordering Provider: SUNNY APODACA Report Released Date/Time: Jun 24, 2024 11:02 AM Reporting Lab: [facility] [place] [facility] [address] [address] Performing Lab: [facility] [place] [facility] [address] [address] [facility] [place] [facility] CBC PLATELET MEAN VOLUME [ENTITIC VOLUME] IN BLOOD BY AUTOMATED COUNT 11.3 fL 9.2 - 12.4 06/30 Specimen Type: BLOOD No comment entered. Ordering Provider: SUNNY APODACA Report Released Date/Time: Jun 24, 2024 11:02 AM Reporting Lab: [facility] [place] [facility] [address] [address] Performing Lab: [facility]N [place] [facility] [address] [address] [facility] CBC ERYTHROCYTE DISTRIBUTIO N WIDTH [RATIO] BY AUTOMATED COUNT 16.2 12.0 - 16.0 06/30 H Specimen Type: BLOOD No comment entered. Ordering Provider: SUNNY APODAAC Report Released Date/Time: Jun 24, 2024 11:02 AM Reporting Lab: [facility] [place] [facility] [address] [address] Performing Lab: [facility] HOSPITALRDECATUR MORGAN HOSPITALTRN [facility]OSPITALUSEMOUNT [facility]INAI HOSPITAL [address] [address] [facility]OSPITALRRUSSELLVILLE HOSPITALN MASSUSE [facility] CBC MCH [ENTITIC MASS] BY AUTOMATED COUNT 31.3 pg 26.2 - 32.6 06/30 Specimen Type: BLOOD No comment entered. Ordering Provider: SUNNY APODACA Report Released Date/Time: Jun 24, 2024 11:02 AM Reporting Lab: [facility]N [place] [facility] [address] [address] Performing Lab: [facility]ITALRL TRN [facility]OSPITALUSE[address] [address] [facility] [facility]OS[facility]ITALUSE [facility] HEMOGLOBI N A1C PANEL HEMOGLOBIN A1C/HEMOGLO BIN.TOTAL IN BLOOD BY IFCC PROTOCOL 6.4 4.0 - 5.6 06/30 H Specimen Type: BLOOD Comment: Values obtained from A1C measurement s can vary. For atypical A1C assays, a reported value of 7.0 could actually be between 6.72 and 7.28 if measured by a reference method. A reported value of 9.0 could actually be between 8.73 and 9.27. Ref: [email or web address]. ngsp.org/[place] Pdata.asp Ordering Provider: SKIP BUTTS Report Released Date/Time: Mar 27, 2024 07:31 PM Reporting Lab: [facility] [address] [address] Performing Lab: [address] [address] [facility] HOSPITALRRUSSELLVILLE HOSPITALN [place] [facility] HEMOGLOBI N A1C PANEL HEMOGLOBIN A1C/HEMOGLO BIN.TOTAL IN BLOOD BY HPLC 8.1 4.0 - 5.6 03/29 H Specimen Type: BLOOD Comment: Values obtained from A1C measurement s can vary. For atypical A1C assays, a reported value of 7.0 could actually be between 6.72 and 7.28 if measured by a reference method. A reported value of 9.0 could actually be between 8.73 and 9.27. Ref: http://www. ngsp.org/[place] Pdata.asp Ordering Provider: SKIP BUTTS Report Released Date/Time: Feb 24, 2024 02:53 PM Reporting Lab: [facility] [address] [address] Performing Lab: [facility]OSPITALUSE[address] [address] [facility] MICROALBU MIN CREATININ E RATIO PANEL MICROALBUMI N/CREATININ E [MASS RATIO] IN URINE 8.8 mg/g 0 - 29.9 03/29 Specimen Type: URINE No comment entered. Ordering Provider: SKIP BUTTS Report Released Date/Time: Feb 24, 2024 02:53 PM Reporting Lab: [facility]OSPITALUSE[address] [address] Performing Lab: [facility]PITALUSE[address] [address] [facility] MICROALBU MIN CREATININ E RATIO PANEL MICROALBUMI N [MASS/VOLUM E] IN URINE 0.5 mg/dL 03/29 Specimen Type: URINE No comment entered. Ordering Provider: SKIP BUTTS Report Released Date/Time: Feb 24, 2024 02:53 PM Reporting Lab: [facility] HOSPITALRDECATUR MORGAN HOSPITALTRN MASSUSE[address] [address] Performing Lab: [facility]ERN [facility]OSPITALUSE[address] [address] [facility]OSPITALRRUSSELLVILLE HOSPITALN [place] [facility] MICROALBU MIN CREATININ E RATIO PANEL CREATININE [MASS/VOLUM E] IN URINE 57.04 mg/dL 03/29 Specimen Type: URINE No comment entered. Ordering Provider: SKIP BUTTS Report Released Date/Time: Feb 24, 2024 02:53 PM Reporting Lab: [facility] [address] [address] Performing Lab: [facility] [address] [address] [facility] LIPID PANEL FASTING CHOLESTEROL [MASS/VOLUM E] IN SERUM OR PLASMA 99 mg/dL 03/29 Specimen Type: SERUM No comment entered. Ordering Provider: SKIP BUTTS Report Released Date/Time: Feb 24, 2024 02:53 PM Reporting Lab: [facility] [address] [address] Performing Lab: [facility] [address] [address] [facility] LIPID PANEL FASTING TRIGLYCERID E [MASS/VOLUM E] IN SERUM OR PLASMA 78 mg/dL 0 - 150 03/29 Specimen Type: SERUM No comment entered. Ordering Provider: SKIP BUTTS Report Released Date/Time: Feb 24, 2024 02:53 PM Reporting Lab: [facility] [address] [address] Performing Lab: [facility] HOSPITALRRUSSELLVILLE HOSPITALN [address] [address] [facility] LIPID PANEL FASTING CHOLESTEROL IN LDL [MASS/VOLUM E] IN SERUM OR PLASMA BY CALCULATION 47 mg/dL 0 - 129 03/29 Specimen Type: SERUM No comment entered. Ordering Provider: SKIP BUTTS Report Released Date/Time: Feb 24, 2024 02:53 PM Reporting Lab: [facility] [address] [address] Performing Lab: [facility] [address] [address] [facility] LIPID PANEL FASTING CHOLESTEROL .TOTAL/CHOL ESTEROL IN HDL [MASS RATIO] IN SERUM OR PLASMA 2.8 03/29 Specimen Type: SERUM No comment entered. Ordering Provider: SKIP BUTTS Report Released Date/Time: Feb 24, 2024 02:53 PM Reporting Lab: [facility] HOSPITALRDECATUR MORGAN HOSPITALTRN [facility]OSPITALUSEMOUNT [facility] [address] [address] Performing Lab: [facility] HOSPITALRDECATUR MORGAN HOSPITALTRN [facility] [address] [address] [facility]PITALRRUSSELLVILLE HOSPITALN [facility] LIPID PANEL FASTING CHOLESTEROL IN HDL [MASS/VOLUM E] IN SERUM OR PLASMA 36 mg/dL 40 - 60 03/29 L Specimen Type: SERUM No comment entered. Ordering Provider: SKIP BUTTS Report Released Date/Time: Feb 24, 2024 02:53 PM Reporting Lab: [facility]OSPITALRRUSSELLVILLE HOSPITALN [address] [address] Performing Lab: [facility] [address] [address] [facility] BASIC METABOLIC PANEL (non-fast ing) UREA NITROGEN [MASS/VOLUM E] IN SERUM OR PLASMA 52 mg/dL 7 - 25 03/29 H Specimen Type: SERUM No comment entered. Ordering Provider: SKIP BUTTS Report Released Date/Time: Feb 24, 2024 02:53 PM Reporting Lab: [facility]OSPITALRDECATUR MORGAN HOSPITALTRN [facility]OSPITALUSE[address] [address] Performing Lab: [facility]ITALRL TRN [facility]OSPITALUSE[address] [address] [facility]ITALRL [facility]N [facility]ITALUSE [facility] BASIC METABOLIC PANEL (non-fast ing) GLUCOSE [MASS/VOLUM E] IN SERUM OR PLASMA 131 mg/dL 65 - 100 03/29 H Specimen Type: SERUM No comment entered. Ordering Provider: SKIP BUTTS Report Released Date/Time: Feb 24, 2024 02:53 PM Reporting Lab: [facility]OSPITALRDECATUR MORGAN HOSPITALTRN [facility]OSPITALUSEMOUNT [facility] [address] [address] Performing Lab: [facility]OSPITALRDECATUR MORGAN HOSPITALTRN [facility]OSPITALUSE[address] [address] [facility]OSPITALRRUSSELLVILLE HOSPITALN MAS[facility] BASIC METABOLIC PANEL (non-fast ing) SODIUM [MOLES/VOLU ME] IN SERUM OR PLASMA 138 mmol/L 135 - 145 03/29 Specimen Type: SERUM No comment entered. Ordering Provider: SKIP BUTTS Report Released Date/Time: Feb 24, 2024 02:53 PM Reporting Lab: [facility] [address] [address] Performing Lab: [facility]ERN [facility] HOSPITALUSEMOUNT [facility]INAI [facility] [address] [address] [facility] BASIC METABOLIC PANEL (non-fast ing) POTASSIUM [MOLES/VOLU ME] IN SERUM OR PLASMA 4.1 mmol/L 3.5 - 5.0 03/29 Specimen Type: SERUM No comment entered. Ordering Provider: SKIP BUTTS Report Released Date/Time: Feb 24, 2024 02:53 PM Reporting Lab: [facility]ERN [facility]OSPITALUSEMOUNT [facility] [address] [address] Performing Lab: [facility]OSPITALRRUSSELLVILLE HOSPITALN [facility] HOSPITALUSE[address] [address] [facility] BASIC METABOLIC PANEL (non-fast ing) CHLORIDE [MOLES/VOLU ME] IN SERUM OR PLASMA 104 mmol/L 100 - 110 03/29 Specimen Type: SERUM No comment entered. Ordering Provider: SKIP BUTTS Report Released Date/Time: Feb 24, 2024 02:53 PM Reporting Lab: [facility] HOSPITALRDECATUR MORGAN HOSPITALTRN [facility]OSPITALUSEMOUNT [facility] [address] [address] Performing Lab: [facility]OSPITALRDECATUR MORGAN HOSPITALTRN [facility]OSPITALUSE[address] [address] [facility] HOSPITALUSE [facility] BASIC METABOLIC PANEL (non-fast ing) CARBON DIOXIDE, TOTAL [MOLES/VOLU ME] IN SERUM OR PLASMA 24 meq/L 20 - 30 03/29 Specimen Type: SERUM No comment entered. Ordering Provider: SKIP BUTTS Report Released Date/Time: Feb 24, 2024 02:53 PM Reporting Lab: [facility]OSPITALRRUSSELLVILLE HOSPITALN [facility]OSPITALUSEMOUNT [facility] [address] [address] Performing Lab: [facility] [place] [facility] [address] [address] [facility] [facility] BASIC METABOLIC PANEL (non-fast ing) CREATININE [MASS/VOLUM E] IN SERUM OR PLASMA 1.78 mg/dL 0.50 - 1.40 03/29 H Specimen Type: SERUM No comment entered. Ordering Provider: SKIP BUTTS Report Released Date/Time: Feb 24, 2024 02:53 PM Reporting Lab: [facility] [place] [facility] [address] [address] Performing Lab: [facility] [place] [facility] [address] [address] [facility] [place] [facility] BASIC METABOLIC PANEL (non-fast ing) GLOMERULAR FILTRATION RATE/1.73 SQ M.PREDICTED [VOLUME RATE/AREA] IN SERUM, PLASMA OR BLOOD BY CREATININE- BASED FORMULA (CKD-EPI 2020) 37 mL/min 60 03/29 L Specimen Type: SERUM No comment entered. Ordering Provider: SKIP BUTTS Report Released Date/Time: Feb 24, 2024 02:53 PM Reporting Lab: [facility] [place] [facility] [address] [address] Performing Lab: [facility] [place] [facility] [address] [address] [facility]PITALRL WSTRN [place] [facility] Vital Signs Combined list of inpatient and outpatient Vital Signs from Department of Defense and Veterans Affairs, ranging from 12 months to all on record, depending upon the facility. Vital Sign Value Date Comments Source SYSTOLIC BLOOD PRESSURE 104 07/09/19 25 08:40:33 [facility] [place] [facility] DIASTOLIC BLOOD PRESSURE 54 025 08:40:33 [facility] [place] [facility] PULSE OXIMETRY 95 07/08/2024 08:40:33 [facility] [place] [facility] WEIGHT 182 07/08/2024 08:40:33 [facility] [place] [facility] BMI 29 kg/m2 07/08/2024 08:40:33 [facility] [place] [facility] PAIN 5 07/08/2024 08:40:33 [facility] [place] [facility] TEMPERATURE 97.6 07/08/2024 08:40:33 [facility] [place] [facility] PULSE 90 07/08/2024 08:40:33 [facility] [place] [facility] RESPIRATION 18 07/08/2024 08:40:33 [facility] [place] [facility] SYSTOLIC BLOOD PRESSURE 144 01/06/20 24 09:24:02 [facility] [place] [facility] DIASTOLIC BLOOD PRESSURE 65 024 09:24:02 [facility] [place] [facility] PULSE OXIMETRY 98 01/06/2024 09:24:02 [facility] [place] [facility] WEIGHT 180 01/06/2024 09:24:02 [facility] [place] [facility] BMI 29 kg/m2 01/06/2024 09:24:02 [facility] [place] [facility] [...] 09:26:00 [facility] [place] [facility] BMI 29 kg/m2 11/13/2023 09:26:00 [facility] [place] [facility] PAIN 0 11/13/2023 09[facility]26:00 [facility] [place] [facility] HEIGHT 66 11/13/2023 09:26:00 [facility] [place] [facility] TEMPERATURE 97.9 11/13/2023 09:26:00 [facility] [place] [facility] PULSE 98 11/13/2023 09:26:00 [facility] [place] [facility] RESPIRATION 16 11/13/2023 09:26:00 [facility] [place] [facility] SYSTOLIC BLOOD PRESSURE 95 08/13/19 24 10:04:27 [facility] [place] [facility] DIASTOLIC BLOOD PRESSURE 51 024 10:04:27 [facility] [place] [facility] PULSE OXIMETRY 93 08/13/2023 10:04:27 [facility] [place] [facility] WEIGHT 176.2 08/13/2023 10:04:27 [facility] [place] [facility] BMI 28 kg/m2 08/13/2023 10:04:27 [facility] [place] [facility] PAIN 0 08/13/2023 10:04:27 [facility] [place] [facility] TEMPERATURE 97.2 08/13/2023 10:04:27 [facility] [place] [facility] PULSE 69 08/13/2023 10:04:27 [facility] [place] [facility] RESPIRATION 18 08/13/2023 10:04:27 [facility] [place] [facility] Encounters Combined list of: 1) Encounters from Department of Veterans Affairs facilities going backup to the last 18 months, not all VA inpatient encounters are included; 2) Encounters from the Department of Defense facilities going backup to 280 months. Location Location Details Encounter Type Encounter Number Reason For Visit Attending Provider ADM Date DC Date Status Disposition Source [facility] [place] [facility] En[facility] [id number] JUDD BUTTS 01/27 [facility] [place] QNHP OL DIG ASSMT&MGMT 5-10 [id number] Diagnos is: ICD-10- CM Z04.89 Encount er for examina tion and observa tion for oth reasons DEBBIE OROZCO 03/31 [facility] En[facility] [id number] 04/09 [facility] [place] Encounter [id number] 04/28 [facility] [place] OFF/[place] CONSLTJ [place] HI 55 [id number] Diagnos is: ICD-10- CM E11.8 Type 2 diabete s mellitu s with unspeci fied complic ations JUDD BUTTS 04/30 [facility] QNHP OL DIG ASSMT&MGMT 5-10 [id number] Diagnos is: ICD-10- CM Z04.89 Encount er for examina tion and observa tion for oth reasons MOODY ANNE 05/01 [facility] [place] [facility] (89[facility]) QNHP OL DIG ASSMT&MGMT 5-10 [id number] Diagnos is: ICD-10- CM Z79.01 retirement (curren t) use of anticoa gulants MAXIME,ALB ARMANI KARIN 05/06 [facility] DEBRIDE NAIL 6 OR MORE [id number] Diagnos is: ICD-10- CM E11.8 Type 2 diabete s mellitu s with unspeci fied complic ations Stephie MORTON 05/06 [facility] CONT GLUC MNTR PHYS/QHP EQP [id number] Diagnos is: ICD-10- CM E11.8 Type 2 diabete s mellitu s with unspeci fied complic ations ABDON CAMPOS 05/07 [facility] CONT GLUC MNTR ANALYSIS I&R [id number] Diagnos is: ICD-10- CM E11.8 Type 2 diabete s mellitu s with unspeci fied complic ations JUDD BUTTS CE 05/07 [facility] [place] Outpatient Encounter [id number] JUDD BUTTS CE 05/07 [facility] Outpatient Encounter [id number] 06/10 [facility] [place] OFFICE O/P EST MOD 30 MIN [id number] Diagnos is: ICD-10- CM Z95.0 Presenc e of cardiac pacemak er MYRTLE ARITA MMED JAWED 06/24 [facility] QNHP OL DIG ASSMT&MGMT 5-10 [id number] Diagnos is: ICD-10- CM Z04.89 Encount er for examina tion and observa tion for oth reasons DEBBIE OROZCO ISTIE J 07/20 [facility] MTMS BY PHARM EST 15 MIN [id number] Diagnos is: ICD-10- CM Z51.81 Encount er for therape utic drug level monitor RASHAWN Granger ISTINE F 07/31 [facility] Out[facility] En[facility] [id number] JUDD BUTTS CE 08/05 [facility] QNHP OL DIG ASSMT&MGMT 5-10 [id number] Diagnos is: ICD-10- CM Z04.89 Encount er for examina tion and observa tion for oth reasons GINA SERRANO JENNY 08/06 [facility] CONT GLUC MNTR PT PROV EQP [id number] Diagnos is: ICD-10- CM E11.8 Type 2 diabete s mellitu s with unspeci fied complic ations CARDENASKEVIN ORIA A 08/12 [facility] MNTR ANALYSIS I&R [id number] Diagnos is: ICD-10- CM E11.8 Type 2 diabete s mellitu s with unspeci fied complic ations JUDD BUTTS 08/12 [facility] Outpatient Encounter [id number] JUDD BUTTS 08/20 [facility] Out[facility] Encounter [id number] 08/27 [facility] TRIM NAIL(S) [id number] Diagnos is: ICD-10- CM E11.42 Type 2 diabete s mellitu s with diabeti c polyneu ropathy JB JONAS 09/03 [facility] DIABETIC CUSTOM MOLDED SHOE [id number] Diagnos is: ICD-10- CM E11.42 Type 2 diabete s mellitu s with diabeti c polyneu ropathy GLORIA CASTILLO OMAR 09/22 [facility] QNHP OL DIG ASSMT&MGMT 5-10 [id number] Diagnos is: ICD-10- CM Z04.89 Encount er for examina tion and observa tion for oth reasons MOODY ANNE 11/03 [facility] Outpatient Encounter [id number] 1. Diagnos is: ICD-10- CM E11.8 Type 2 diabete s mellitu s with unspeci fied complic ations JUDD BUTTS 11/04 [facility] Outpatient Encounter [id number] 1. JUDD BUTTS 11/10 [facility] CONT GLUC MNTR PT PROV EQP [id number] Diagnos is: ICD-10- CM E11.8 Type 2 diabete s mellitu s with unspeci fied complic ations ADBON CAMPOS 11/12 [facility] OFFICE O/P EST HI 40 MIN [id number] 1. Diagnos is: ICD-10- CM E11.8 Type 2 diabete s mellitu s with unspeci fied complic ations JUDD BUTTS 11/12 [facility] [place] QNHP OL DIG ASSMT&MGMT 5-10 [id number] Diagnos is: ICD-10- CM E11.8 Type 2 diabete s mellitu s with unspeci fied complic ations TAWANNA HUTTON IE 11/12 [place] [facility] GLUC MNTR ANALYSIS I&R [id number] 1. 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 2 diabete s mellitu s with diabeti c polyneu ropJB Rivero 12/30 [facility] Out[facility] Encounter [id number] [facility] OFFICE O/P EST LOW 20 MIN [id number] Diagnos is: ICD-10- CM Z95.0 Presenc e of cardiac pacemak Debi Cintron 01/05 [facility] Out[facility] Encounter [id number] 01/11 [facility] DIAB MANAGE TRN PER INDIV [id number] 1. Diagnos is: ICD-10- CM E11.8 Type 2 diabete s mellitu s with unspeci fied complic ations KELLI ROSAS NNIE P 01/12 [facility] OT EVAL LOW COMPLEX 30 MIN [id number] 1. Diagnos is: ICD-10- CM Z74.09 Other reduced mobilit y BAIWOODROW ANE 01/18 [facility] Out[facility] Encounter [id number] JONAH CHOU 01/25 [facility] Out[facility] Encounter [id number] JONAH CHOU 02/09 [facility] Outpatient Encounter [id number] Diagnos is: ICD-10- CM Z04.89 Encount er for examina tion and observa tion for oth reasons DEBBIE OROZCO 02/11 [facility] DIAB MANAGE TRN PER INDIV [id number] Diagnos is: ICD-10- CM E11.8 Type 2 diabete s mellitu s with unspeci fied complic ations KELLI ROASS NNIE P 02/22 [facility] Out[facility] Encounter [id number] 02/23 [facility] Out[facility] Encounter [id number] JUDD BUTTS 02/23 [facility] Outpatient Encounter [id number] 1. Diagnos is: ICD-10- CM E11.8 Type 2 diabete s mellitu s with unspeci fied complic ations JUDD BUTTS 02/24 [facility] COMPRE OPH EXAM EST PT 1/ [id number] Diagnos is: ICD-10- CM E11.9 Type 2 diabete s mellitu s without complic ations JEWELS SHELLEY Y J 03/03 [facility] CMPTR OPHTH IMG OPTIC NERVE [id number] 1. Diagnos is: ICD-10- CM H40.013 Open angle with borderl ine finding s, low risk, bilater al JEWELS SHELLEY Y J 03/03 [facility] (6[facility]GE) NQHP OL DIG ASSMT&MGMT 5-10 [id number] Diagnos is: ICD-10- CM Z51.81 [facility] the[facility]ic drug level monitor RASHAWN Granger ISTINE F 03/30 [facility] (631GE) [facility] Out[facility] Encounter [id number] 03/30 [facility] Outpatient Encounter [id number] [facility] Outpatient Encounter [id number] [facility] Outpatient Encounter [id number] [facility] TRIM NAIL(S) [id number] Diagnos is: ICD-10- CM E11.42 Type 2 diabete s mellitu s with diabeti c polyneu ropathy JB JONAS LIAM 04/07 [facility] DIAB MANAGE TRN PER INDIV [id number] Diagnos is: ICD-10- CM E11.8 Type 2 diabete s mellitu s with unspeci fied complic ations RALPHKELLI NNIE P 04/27 [facility] OFFICE O/P EST HI 40 MIN [id number] Diagnos is: ICD-10- CM E11.8 Type 2 diabete s mellitu s with unspeci fied complic ations JUDD BUTTS CE 05/05 [facility] CONT GLUC MNTR ANALYSIS I&R [id number] Diagnos is: ICD-10- CM E11.8 Type 2 diabete s mellitu s with unspeci fied complic ations JUDD BUTTS CE 05/05 [facility] MTMS BY PHARM ADDL 15 MIN [id number] Diagnos is: ICD-10- CM E11.8 Type 2 diabete s mellitu s with unspeci fied complic ations VICTORINA TIRADO 05/17 [facility] Outpatient Encounter [id number] 05/24 [facility] Outpatient Encounter [id number] 06/23 [facility] NQHP OL DIG ASSMT&MGMT 5-10 [id number] Diagnos is: ICD-10- CM 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 GINA SERRANO 07/01 [facility] Outpatient Encounter [id number] JUDD BUTTS 07/03 [facility] Outpatient Encounter [id number] 07/08 [facility] OFFICE O/P EST LOW 20 MIN [id number] Diagnos is: ICD-10- CM G47.30 Sleep apnea, unspeci fied AJAY GARCIA 07/08 [facility] Outpatient Encounter [id number] ABDON CAMPOS 07/12 [facility] DEBRIDE NAIL 6 OR MORE [id number] Diagnos is: ICD-10- CM E11.8 Type 2 diabete s mellitu s with unspeci fied complic atJB Carreno 07/13 [facility] Social History Combined list of available smoking, tobacco, and other social history from Department of Defense and Veterans Affairs facilities. Social History Type Response Date Comment Source Tobacco smoking status TNIS VA-TOBACCO QUIT 15 YRS OR MORE 01/06/2024 [facility] History of tobacco use VA-TOBACCO FORMER USER 01/06/2024 [facility] History of tobacco use VA-TOBACCO QUIT 15 YRS OR MORE 12/24/2022 [facility] History of tobacco use VA-TOBACCO FORMER USER 12/24/2021 [facility] History of tobacco use [place]-TOBACCO FORMER USER 12/14/2020 [facility] History of tobacco use WI-TOBACCO FORMER USER 11/15/2019 [facility] History of tobacco use WI-TOBACCO QUIT 5 TO < 15 YRS 10/20/2017 [facility] History of tobacco use QUIT TOBACCO USE > 7 YEARS AGO 09/04/2017 [facility] History of tobacco use QUIT TOBACCO USE > 7 YEARS AGO 10/16/2016 [facility] History of tobacco use QUIT TOBACCO USE > 7 YEARS AGO 02/20/2015 quit 2009-cigarettes and cigars for 45 years [facility] This section is an empty social history section. [facility] Plan of Care List of future care activities from Department [facility] facilities. Additional future care activities may be listed in the Assessment and Plan section. Date/Time Care Activity Care Activity Detail Facili ty 07/26/2024 AMBULATORY - MEDICINE AMBULATORY - MEDICI NE [facility] Advance Directives List of completed, amended, or rescinded Advance Directives on record at Department [facility] facilities. An actual copy of the Directive is not included. Date Advance Directive Provider Source 03/23/2014 ADVANCE DIRECTIVE ROSALINDA SHELBY [facility]
--- OUTSIDE RECORDS SUMMARY | 2024-07-20 08:31 | XMS_ITS | Encounter Summary ---
Author Organization [facility] Address [address] [place] [address] Care Team Providers Care Reducer Name Role Phone Donte Powell MD Primary Care Provider [phone] Encounter Details Date Type Department Care Team (Late st Contact Info) Description 06/03/2024 Lab Requisition [facility] - Main Lab [address] [place] [address] Ross Saul MD [address] [place] [address] Unspecified atrial fibrillation (CMS/HCC V24, CMS/HCC V28) Social History Tobacco Use Types Packs/Day Years [...] Unspecified atrial fibrillation (CMS/HCC V24, CMS/HCC V28) documented in this encounter Additional Health Concerns Infection Onset Date Last Indicated Resolved Time Norovirus 05/29/2024 05/29/2024 documented as of this encounter Care Teams Reducer Relationship Specialty Start Date End Date Donte Powell MD [address] [place] [address] Dr Rl [place] PCP - General Internal Medicine 09/21/18 documented as of this encounter
--- OUTSIDE RECORDS SUMMARY | 2024-07-20 08:31 | XMS_ITS | Encounter Summary ---
Author Name [facility] Organization [facility] Address [address] [place] [address] Care Team Providers Care Combine Driver Name Role Phone AJAY APODACA Primary Care [...] PART A Nov 22, 2006 PART A [id number] [phone] TONY CASTELLON PATIENT MEDICARE (WNR) MEDICARE (M) PART B Nov 22, 2006 PART B [id number] TONY CASTELLON PATIENT MEDICARE (WNR) MEDICARE (M) PART B Nov 22, 2006 PART B [id number] TONY CASTELLON PATIENT MEDICARE (WNR) MEDICARE (M) PART A Nov 22, 2006 PART A [id number] TONY CASTELLON PATIENT FOR LIFE TFL* Apr 20, 2014 [id number] SUKHJINDER CASTELLON JR PATIENT Selected Encounter This section includes the information on record at [place] for the Encounter. Date/Time Encounter Type Encounter Description Reason Provider Source Feb 12, 2024 08:48 AM Outpatient Encounter CLINICAL PHARMACY ICD-10-CM Z04.89 Encounter for examination and observation for oth reasons ZHANG ZAMUDIO E Encounter Template Text not used by [place] Assessments - Encounter Diagnoses This section includes [...] care activities for the patient from [facility] [place] [facility] This section includes future appointments and future orders which are active, pending or scheduled. Future Appointments This section includes appointments that were scheduled to occur 6 months from the date of the Encounter, up to a maximum of 20 appointments. The data comes from all [place] treatment facilities. Appointment Date/Time Appointment Type Appointme nt Facility Name Feb 23, 2024 03:00 PM AM[place]ULATORY [place] MEDICINE [place] [facility] Mar 03, 2024 02:00 PM AMBULATORY - MEDICINE [facility] Mar 03, 2024 02:30 PM AMBULATORY - MEDICINE [facility] Apr 07, 2024 08:00 AM AMBULATORY - MEDICINE [place] [facility] Apr 27, 2024 03:00 PM AMBULATORY - MEDICINE [place] [facility] May 05, 2024 11:30 AM AMBULATORY - MEDICINE [place] [facility] May 17, 2024 02:00 PM AMBULATORY - MEDICINE [place] [facility] Jul 08, 2024 09:00 AM AMBULATORY - MEDICINE [facility] Jul 13, 2024 11:30 AM AMBULATORY - MEDICINE [place] [facility] July 26, 2024 03:00 PM AMBULATORY - MEDICINE [place] [facility] Lab Results: +/- 30 days of the encounter This section includes the Chemistry and Hematology Lab Results on record with [place] for the patient. Radiology Reports and Pathology Reports are provided separately, in subsequent sections. Lab Results This section contains the Chemistry/Hematology Results that were resulted 30 days before or 30 daysafter the date of the Encounter. Date/Time Source Result Type Result - Unit Interpretation Reference Range Specimen Type Comment Jan 29, 2024 09:49 AM [facility] CREATININE (eGFR 2020) SERUM Specimen Type: SERUM No comment entered. Ordering Provider: MINA APODACA Report Released Date/Time: Jan 27, 2024 07:33 AM Reporting Lab: [facility] [address] [facility] [address] Performing Lab: [facility] [address] [facility] [address] CREATININE, Serum 1.86 mg/dL H 0.50-1.40 eGFR(CKD-EPI 2020) 36 mL/min L >60 Jan 29, 2024 09:49 AM [facility] PT & INR (COUMADIN) PLASMA Specimen Type: PLAS [place] No comment entered. Ordering Provider: AJAY APODACA Report Released Date/Time: Jan 27, 2024 07:33 AM Reporting Lab: [facility] [address] [facility] [address] Performing Lab: [facility] [address] [facility] [address] INR 1.3 PROTIME 14.6 s H 10.0-13.1 Jan 29, 2024 09:49 AM [facility] LIVER FUNCTION SERUM Specimen Type: SERUM No comment entered. Ordering Provider: AJAY APODACA Report Released Date/Time: Jan 27, 2024 07:33 AM Reporting Lab: [facility] [address] [facility] [address] Performing Lab: [facility] [address] [facility] [address] PROTEIN,TOTAL 7.4 g/dL 6.0-8.3 ALBUMIN 3.2 g/dL L 3.5-5.0 ALKALINE PHOSPHATASE 66 U/L 40-150 AST 30 U/L 5-34 ALT 31 U/L BILIRUBIN, TOTAL 0.4 mg/dL 0.2-1.2 Jan 29, 2024 09:49 AM [facility] CBC BLOOD Specimen Type: BLOOD No comment entered. Ordering Provider: AJAY APODACA Report Released Date/Time: Jan 27, 2024 07:33 AM Reporting Lab: [facility] [address] [facility] [address] Performing Lab: [facility] [address] [facility] [address] WBC 6.95 10*3/uL 4.50-11.00 RBC 3.19 10*6/uL [...] ALL of a patient's completed or amended [place] Advance and Rescinded Directives. The entries below indicate that a directive exists for the patient, but an actual copy is not included with this document. The data comes from all [place] facilities. Date Advance Directives Provider Source Mar 23, 2014 ADVANCE DIRECTIVE ROSALINDA SHELBY [facility] Encounter Notes: All associated encounter notes This section contains the clinical notes associated to the Encounter. Date/Time Encounter Note(s) Provider Source Feb 12, 2024 08:48 AM PHARMACY MEDICATIO N MGT NOTE: LOCAL TITLE: PHARMACY ANTICOAGULATION NOTE STANDARD TITLE: PHARMACY MEDICATION MGT NOTE DATE OF NOTE: FEB 12, 2024@08:48 ENTRY DATE: FEB 12, 2024@08:48:43 AUTHOR: SANGEETA ZAMUDIO EXP COSIGNER: URGENCY: STATUS: COMPLETED ANTICOAGULATION DOAC MONITORING [...] Patient education via phone/letter [ ] Schedule phone/vmim-iw-ddup follow up [ ] Lab ordered [ ] Discontinue interacting medication [ ] Discontinue DOAC [ ] Change to alternative DOAC [ ] Change DOAC dose [ ] Notify PCP [ ] Consult cardiology/hematology [ ] Other: Time spent: 9 mins /jus/ Sangeeta Zamudio, PharmD, BCPS Clinical Structural Welder Signed: 02/12/2024 09:05 SANGEETA ZAMUDIO [facility]
--- OUTSIDE RECORDS SUMMARY | 2024-07-20 08:31 | XMS_ITS | Encounter Summary ---
Author Organization [facility] Address [address] [place] [address] Care Team Providers Care Chimney Construction Supervisor Name Role Phone Donte Powell MD Primary Care Provider [phone] Encounter Details Date Type Department Care Team (Late st Contact Info) Description 05/31/2024 Lab Requisition [facility] - Main Lab [address] [facility] [place] [address] Ross Saul MD [address] [place] [address] Unspecified atrial fibrillation (CMS/HCC V24, CMS/HCC V28); Anemia, unspecified; Anemia in chronic kidney disease (CODE) Social History Tobacco Use Types Packs/Day Years [...] on file documented as of this encounter Procedures Procedure Name Priority Date/Time Associated Diagnosis Comments COMPLETE BLOOD COUNT Routine 05/31/2024 5:15 AM EDT Unspecified atrial fibrillation (CMS/HCC) Anemia, unspecified Anemia in chronic kidney disease (CODE) COMPREHENSIVE METABOLIC PANEL Routine 05/31/2024 5:15 AM EDT Unspecified atrial fibrillation (CMS/HCC) Anemia, unspecified Anemia in chronic kidney disease (CODE) documented in this encounter Results * (ABNORMAL) Comprehensive metabolic panel (05/31/2024 5:15 AM EDT) Sodium 141 133 - 145 mmol/L LAB CHEMISTRY METHOD 05/31/2024 10:49 AM [facility] Potassium 4.7 3.5 - 5.5 mmol/L LAB CHEMISTRY METHOD 05/31/2024 10:49 AM [facility] Chloride 110 96 - 110 mmol/L LAB CHEMISTRY METHOD 05/31/2024 10:49 AM [facility] CO2 21 21 - 32 mmol/L LAB CHEMISTRY METHOD 05/31/2024 10:49 AM [facility] Anion Gap 10 3 - 11 LAB CHEMISTRY METHOD 05/31/2024 10:49 AM [facility] Glucose 125(H) 70 - 100 mg/dL LAB CHEMISTRY METHOD 05/31/2024 10:49 AM [facility] BUN 27(H) 5 - 25 mg/dL LAB CHEMISTRY METHOD 05/31/2024 10:49 AM [facility] Creatinine 1.45(H) 0.70 - 1.30 mg/dL LAB CHEMISTRY METHOD 05/31/2024 10:49 AM [facility] eGFR 48(L) >=60 mL/min/1. 73m2 LAB CHEMISTRY METHOD 05/31/2024 10:49 AM [facility] Comment:Calculation based on the??Chronic Kidney Disease Epidemiology Collaboration (CKD-EPI) equation refit??without adjustment for race. BUN/Creatinine Ratio 18.6 LAB CHEMISTRY METHOD 05/31/2024 10:49 AM [facility] Calcium 7.7(L) 8.5 - 10.5 mg/dL LAB CHEMISTRY METHOD 05/31/2024 10:49 AM [facility] AST (SGOT) 117(H) 10 - 42 unit/L LAB CHEMISTRY METHOD 05/31/2024 10:49 AM [facility] ALT (SGPT) 66(H) 10 - 60 unit/L LAB CHEMISTRY METHOD 05/31/2024 10:49 AM EDT [facility] Alkaline Phosphatase 122(H) 42 - 121 unit/L LAB CHEMISTRY METHOD 05/31/2024 10:49 AM EDT [facility] Total Protein 5.8(L) 6.0 - 8.0 g/dL LAB CHEMISTRY METHOD 05/31/2024 10:49 AM EDT [facility] Albumin 2.2(L) 3.2 - 5.0 g/dL LAB CHEMISTRY METHOD 05/31/2024 10:49 AM EDT [facility] Total Bilirubin 0.4 0.0 - 1.4 mg/dL LAB CHEMISTRY METHOD 05/31/2024 10:49 AM T [facility] Blood Venous blood specimen / Unknown Venipuncture / Unknown 05/31/2024 5:15 AM EDT 05/31/2024 9:44 AM EDT us Ross Saul MD LAB BLOOD ORDERABLES Final Resu lt [facility] [address] [place] [address], [place] [phone] * (ABNORMAL) Complete blood count (05/31/2024 5:15 AM EDT) WBC 4.0(L) 4.8 - 10.8 K/mcL LAB HEMETOLOGY METHOD 05/31/2024 10:27 AM EDT [facility] RBC 2.60(L) 4.50 - 5.50 M/mcL LAB HEMETOLOGY METHOD 05/31/2024 10:27 AM EDT [facility] Hemoglobin 8.6(L) 13.5 - 17.5 g/dL LAB HEMETOLOGY METHOD 05/31/2024 10:27 AM EDT [facility] Hematocrit 27.4(L) 42.0 - 54.0 % LAB HEMETOLOGY METHOD 05/31/2024 10:27 AM EDT [facility] MCV 105.8(H) 79.0 - 98.0 FL LAB HEMETOLOGY METHOD 05/31/2024 10:27 AM EDT [facility] MCH 33.2(H) 27.0 - 32.0 pcg LAB HEMETOLOGY METHOD 05/31/2024 10:27 AM EDT [facility] MCHC 31.4(L) 32.0 - 37.0 g/dL LAB HEMETOLOGY METHOD 05/31/2024 10:27 AM EDT [facility] RDW 17.7(H) 11.0 - 15.0 % LAB HEMETOLOGY METHOD [facility]2024 [facility] Platelets 199 130 - 400 K/mcL LAB HEMETOLOGY METHOD 05/31/2024 10:27 AM EDT [facility] MPV 11.7(H) 7.0 - 11.0 FL LAB HEMETOLOGY METHOD 05/31/2024 10:27 AM EDT [facility] NRBC 0.0 <1.0 % LAB HEMETOLOGY METHOD 05/31/2024 10:27 AM T [facility] NRBC Absolute 0.00 <0.10 K/mcL LAB HEMETOLOGY METHOD 05/31/2024 10:27 AM EDT [facility] Blood Venous blood specimen / Unknown Venipuncture / Unknown 05/31/2024 5:15 AM EDT 05/31/2024 9:44 AM EDT us Ross Saul MD LAB BLOOD ORDERABLES Final Resu lt [facility] [address] [place] [address], documented in this encounter Visit Diagnoses Diagnosis Unspecified atrial fibrillation ([facility] V24, [facility] V28) Anemia, unspecified Anemia in chronic kidney disease (CODE) documented in this encounter Additional Health Concerns Infection Onset Date Last Indicated Resolved Time Norovirus 05/29/2024 05/29/2024 documented as of this encounter Care Teams Chimney Construction Supervisor Relationship Specialty Start Date End Date Donte Powell MD [address] [place] [address] Dr Rl [place] PCP - General Internal Medicine 09/21/18 documented as of this encounter
--- OUTSIDE RECORDS SUMMARY | 2024-07-20 08:31 | XMS_ITS | Encounter Summary ---
Author Name [facility] Organization [facility] Address [address] [place] [address] Care Team Providers Care Air Export Logistics Manager Name Role Phone ABAD RUSSELL Primary [...] PART A Nov 22, 2006 PART A [id number] TONY CASTELLON PATIENT MEDICARE (WNR) MEDICARE (M) PART B Nov 22, 2006 PART B [id number] TONY CASTELLON PATIENT MEDICARE (WNR) MEDICARE (M) PART A Nov 22, 2006 PART A [id number] TONY CASTELLON PATIENT MEDICARE (WNR) MEDICARE (M) PART B Nov 22, 2006 PART B [id number] [phone] TONY CASTELLON PATIENT FOR LIFE TFL* Apr 20, 2014 [id number] [phone] SUKHJINDER CASTELLON JR PATIENT Selected Encounter This section includes the information on record at [place] for the Encounter. Date/Time Encounter Type Encounter Description Reason Provider Source August 07, 2023 01:53 PM QNHP OL DIG ASSMT&MGMT 5-10 CLINICAL PHARMACY ICD-10-CM Z04.89 Encounter for examination and observation for oth reasons DAMIAN SERRANO Jose Encounter Template Text not used by [place] Assessments - Encounter Diagnoses This section includes the primary and secondary diagnoses documented for the Encounter. Date/Time Primary/Secondary Diagnosis Diagnosis Name Provider Source August 07, 2023 01:57 PM PRIMARY Encounter for examination and observation for oth reasons [facility] Plan of Treatment: Future Appointments (+ 6 months) and Future Tests (+/- 45 days) The Plan of Treatment section includes future care activities for the patient from all [facility] This section includes future appointments and future orders which are active, pending or scheduled. Future Appointments This section includes appointments that were scheduled to occur 6 months from the date of the Encounter, up to a maximum of 20 appointments. The data comes from all [place] treatment facilities. Appointment Date/Time Appointment Type Appointme nt Facility Name August 13, 2023 10:00 AM AMBULATORY - MEDICINE [place] [facility] [place] [facility] Sep 04, 2023 11:00 AM AMBULATORY - MEDICINE [facility] [place] [facility] Sep 23, 2023 09:00 AM AMBULATORY - MEDICINE [facility] [place] [facility] Nov 13, 2023 09:30 AM AMBULATORY - MEDICINE [facility] [place] [facility] Dec 31, 2023 02:00 PM AMBULATORY - MEDICINE [facility] [place] [facility] Jan 06, 2024 09:30 AM AMBULATORY - MEDICINE [facility] [place] [facility] Jan 13, 2024 03:00 PM AMBULATORY - MEDICINE [facility] [place] [facility] Jan 19, 2024 08:30 AM AMBULATORY - REHAB MEDICIN E [facility] [place] [facility] Lab Results: +/- 30 days of the encounter This section includes the Chemistry and Hematology Lab Results on record with [place] for the patient. Radiology Reports and Pathology Reports are provided separately, in subsequent sections. Lab Results This section contains the Chemistry/Hematology Results that were resulted 30 days before or 30 daysafter the date of the Encounter. Date/Time Source Result Type Result - Unit Interpretation Reference Range Specimen Type Comment August 17, 2023 05:30 AM [place] [facility] [place] [facility] OCCULT BLOOD FIT X1 SCREEN(IN-HOUSE) FECES Sp ecimen Type: FECES No comment entered. Ordering Provider: JOSH MARKS Report Released Date/Time: August 14, 2023 03:34 PM [facility] [place] [address] [address] Performing Lab: [place] [facility] [place] [facility] [address] [facility] [facility] [address] OCCULT BLOOD (FIT)#1 OF 1 Negative NEG August 15, 2023 08:59 AM [facility] [place] [facility] FOLATE (WROX) SERUM Specimen Type: SERUM No comment entered. Ordering Provider: JOSH MARKS Report Released Date/Time: August 14, 2023 03:34 PM Reporting [facility] [place] [facility] [address] [facility] [address] Performing [facility]: [facility] [place] [facility] [address] [facility] [address] FOLATE (WROX) 13.92 ng/mL >5.2 August 15, 2023 08:59 AM [facility] [place] [facility] FERRITIN SERUM Specimen Type: SERUM No comment entered. Ordering Provider: JOSH MARKS Report Released Date/Time: August 14, 2023 03:34 PM Reporting [facility] [place] [facility] [address] [facility] [address] Performing Lab: [facility] [place] [facility] [address] [facility] [facility] [address] FERRITIN 108 ng/mL 20-300 August 15, 2023 08:59 AM [facility] [place] [facility] VITAMIN B12 SERUM Specimen Type: SERUM No comment entered. Ordering Provider: JOSH MARKS Report Released Date/Time: August 14, 2023 03:34 PM Reporting [facility]: [facility] [place] [address] [address] Performing Lab: [facility] [address] [facility] [address] VITAMIN B12 284 pg/mL 200-900 August 15, 2023 08:59 AM [facility] IRON & TIBC PANEL SERUM Specimen Type: SERUM No comment entered. Ordering Provider: JOSH MARKS Report Released Date/Time: August 14, 2023 03:34 PM Reporting Lab: [address] [address] Performing Lab: [address] [address] TIBC 380 ug/dL 204-475 IRON 71 ug/dL 40-160 Transferrin Saturation 18.7 L 20.0-50.0 August 15, 2023 08:59 AM [facility] CBC AND DIFF (AUTO) BLOOD Specimen Type: BLOO D No comment entered. Ordering Provider: JOSH MARKS Report Released Date/Time: August 14, 2023 03:34 PM Reporting Lab: [facility] [address] [facility] [address] Performing Lab: [address] [address] WBC 5.70 10*3/uL 4.50-11.00 RBC 3.35 10*6/uL L 4.23-5.66 HGB 10.3 g/dL L 12.8-17 HCT 32.9 L 39.2-50.4 MCV 98.2 fL 82-99 MCHC 31.3 g/dL 30.8-35.1 PLT 303 10*3/uL 140-360 RDW-CV 14.2 12.0-16.0 [place], Abs 0.63 10*3/uL 0.30-1.10 MCH 30.7 pg 26.2-32.6 Neut % 73.0 43.7-75.8 Lymph % 14.2 14.0-42.3 [place] % 11.1 5.1-13.7 Eos % 0.4 0.4-6.8 Baso % 0.4 0.1-2.0 Neut, Abs 4.17 10*3/uL 2.20-7.60 Lymph, Abs 0.81 10*3/uL L 1.00-3.20 Eos, Abs 0.02 10*3/uL L 0.03-0.44 Baso, Abs 0.02 10*3/uL 0.01-0.13 Immature Gran % 0.9 H 0.0-0.7 Immature Gran, Abs 0.05 10*3/uL 0.00-0.0 6 August 06, 2023 07:31 AM [facility] LIVER FUNCTION SERUM Specimen Type: SERUM No comment entered. Ordering Provider: GEORGINA ARITA Report Released Date/Time: Jun 06, 2023 11:30 AM Reporting Lab: [address] [address] Performing Lab: [address] [address] PROTEIN,TOTAL 6.4 g/dL 6.0-8.3 ALBUMIN 3.0 g/dL L 3.5-5.0 ALKALINE PHOSPHATASE 61 U/L 40-150 AST 22 U/L 5-34 ALT 24 U/L BILIRUBIN, TOTAL 0.7 mg/dL 0.2-1.2 August 06, 2023 07:31 AM [facility] CBC AND DIFF (AUTO) BLOOD Specimen Type: BLOO D No comment entered. Ordering Provider: GEORGINA ARITA Report Released Date/Time: Jun 06, 2023 11:30 AM Reporting Lab: [address] [address] Performing Lab: [address] [address] WBC 7.50 10*3/uL 4.50-11.00 RBC 3.17 10*6/uL L 4.23-5.66 HGB 9.8 g/dL L 12.8-17 HCT 31.1 L 39.2-50.4 MCV 98.1 fL 82-99 MCHC 31.5 g/dL 30.8-35.1 PLT 181 10*3/uL 140-360 RDW-CV 14.2 12.0-16.0 [place], Abs 0.70 10*3/uL 0.30-1.10 MCH 30.9 pg 26.2-32.6 Neut % 79.2 H 43.7-75.8 Lymph % 10.1 L 14.0-42.3 [place] % 9.3 5.1-13.7 Eos % 0.3 L 0.4-6.8 Baso % 0.4 0.1-2.0 Neut, Abs 5.94 10*3/uL 2.20-7.60 Lymph, Abs 0.76 10*3/uL L 1.00-3.20 Eos, Abs 0.02 10*3/uL L 0.03-0.44 Baso, Abs 0.03 10*3/uL 0.01-0.13 Immature Gran % 0.7 0.0-0.7 Immature Gran, Abs 0.05 10*3/uL 0.00-0.0 6 August 06, 2023 07:31 AM [facility] HEMOGLOBIN A1C PANEL BLOOD Specimen Type: [...] May 07, 2023 02:07 PM Reporting Lab: [facility] [address] [address] Performing Lab: [address] [address] HEMOGLOBIN A1C 7.7 H 4.0-5.6 August 06, 2023 07:31 AM [facility] BASIC METABOLIC PANEL (non-fasting) SERUM Spe cimen Type: SERUM No comment entered. Ordering Provider: MIAH BUTTS Report Released Date/Time: May 07, 2023 02:07 PM Reporting Lab: [facility] [address] [address] Performing Lab: [facility] [place] [facility] [address] [address] UREA NITROGEN 31 mg/dL H 7-25 GLUCOSE [...] and tobacco- related health factors from the [place] facility where the Encounter took place. Current Smoking Status This section includes the most current smoking, or tobacco-related health factor, from the PR facility where the Encounter took place. Date/Time Current Smoking Status Comment Facil [facility] Dec 24, 2022 10:30 AM VA-TOBACCO QUIT 15 YRS OR MORE [facility] Tobacco Use History This section includes a history of the smoking, or tobacco-related health factors, that were collected on or before the date of the Encounter. The data comes from the PR facility where the Encounter took place. Date/Time Smoking Status/Tobac co Use Comment Facility Dec 24, 2022 10:30 AM VA-TOBACCO QUIT 15 YRS OR MORE [facility] [place] [facility] Dec 24, 2021 10:00 AM VA-TOBACCO FORMER USER [facility] [place] [facility] Dec 24, 2021 10:00 AM VA-TOBACCO QUIT 5 TO < 15 YRS [facility] [place] [facility] Dec 14, 2020 08:30 AM VA-TOBACCO FORMER USER [facility] [place] [facility] Dec 14, 2020 08:30 AM VA-TOBACCO QUIT 5 TO < 15 YRS [facility] [place] [facility] Nov 15, 2019 11:00 AM VA-TOBACCO FORMER USER [facility] [place] [facility] Nov 15, 2019 11:00 AM VA-TOBACCO QUIT 5 TO < 15 YRS [facility] [place] [facility] Oct 20, 2017 08:19 AM VA-TOBACCO FORMER USER [facility] [place] [facility] Oct 20, 2017 08:19 AM VA-TOBACCO QUIT 5 TO < 15 YRS [facility] Sep 04, 2017 11:09 AM QUIT TOBACCO USE > 7 YEARS AGO [facility] Oct 16, 2016 09:08 AM QUIT TOBACCO USE > 7 YEARS AGO [facility] Feb 20, 2015 10:58 AM QUIT TOBACCO USE > 7 YEARS AGO quit 2009-cigarettes and cigars for 45 years [facility] Advance Directives: All historical and current Section Date Range: From patient's date of to the date document was created. This section includes ALL of a patient's completed or amended [place] Advance and Rescinded Directives. The entries below indicate that a directive exists for the patient, but an actual copy is not included with this document. The data comes from all [place] facilities. Date Advance Directives Provider Source Mar 23, 2014 ADVANCE DIRECTIVE ROSALINDA SHELBY [facility] Encounter Notes: All associated encounter notes [...] prior to ones drawn here are from [facility] 04/09/23 RBC 4.04L Hgb 13.0L HCT 38.4L MCV 85.1 RDW 14.3 Please fax most recent CBC results to Oncology at [facility]: Dr. George Vaca /jus/ JOSH MARKS NP NURSE PRACTITIONER Signed: 08/14/2023 15:37 Receipt Acknowledged By: 08/14/2023 16:20 /jus/ Shae Chou MSN RN CNL Primary Care RN --- Original [...] Patient education via phone/letter [ ] Schedule phone/[id number]-ch-awqh follow up [ ] Lab ordered [ ] Discontinue interacting medication [ ] Discontinue DOAC [ ] Change to alternative DOAC [ ] Change DOAC dose [ X ] Notify PCP [ ] Consult cardiology/hematology [ ] Other: Time spent: 5 minutes /es/ DAMIAN SERRANO PHARMD, BCPS CLINICAL PHARMACIST PRACTITIONER Signed: 08/07/2023 13:57 Receipt Acknowledged By: 08/08/2023 06:40 /es/ Abad Russell DNP, [employer] FOUNTAIN CLERK-, CNL Primary Care Nurse Practitioner 08/14/2023 ADDENDUM STATUS: COMPLETED Talked with Vet, he will come in 08/14 for redraw. He requests fit to be mailed, kit sent. Also labs faxed to Oncology. Additional labs found in [facility] portal during admission 05/30-06/08 for tachicardia Draw 06/09/23 RBC 3.10 L HGB 9.9 L HCT 30.1 L MCV 97.1 H /es/ Shae Chou MSN RN CNL Primary Care RN Signed: 08/14/2023 16:13 JOSH MARKS [facility] August 07, 2023 01:53 PM PHARMACY MEDICATION [...] Patient education via phone/letter [ ] Schedule phone/[id number] follow up [ ] Lab ordered [ ] Discontinue interacting medication [ ] Discontinue DOAC [ ] Change to alternative DOAC [ ] Change DOAC dose [ X ] Notify PCP [ ] Consult cardiology/hematology [ ] Other: Time spent: 5 minutes /jus/ DAMIAN SERRANO, PHARMD, BCPS CLINICAL PHARMACIST PRACTITIONER Signed: 08/07/2023 13:57 Receipt Acknowledged By: 08/08/2023 06:40 /jus/ Abad Russell DNP, [employer] FOUNTAIN CLERK-BC, CNL Primary Care Nurse Practitioner 08/14/2023 ADDENDUM STATUS: COMPLETED Called Vet LM to call back. Please contact Vet to return for repeat CBC and iron studies due to what appears to be significant drop in Hgb and HCT. Please also mail FIT test. Last labs I see in [facility] prior to ones drawn here are from [facility] 04/09/23 RBC 4.04L Hgb 13.0L HCT 38.4L MCV 85.1 RDW 14.3 Please fax most recent CBC results to Oncology at [facility]: Dr. George Vaca /jus/ JOSH MARKS NP NURSE PRACTITIONER Signed: 08/14/2023 15:37 Receipt Acknowledged By: * AWAITING SIGNATURE * SHAE CHOU 08/14/2023 ADDENDUM STATUS: COMPLETED Talked with Vet, he will come in 08/14 for redraw. He requests fit to be mailed, kit sent. Also labs faxed to Oncology. Additional labs found in [facility] portal during admission 05/30-06/08 for tachicardia Draw 06/09/23 RBC 3.10 L HGB 9.9 L HCT 30.1 L MCV 97.1 H /es/ Shae LUX RN CNL Primary Care RN Signed: 08/14/2023 16:13 [facility]
--- OUTSIDE RECORDS SUMMARY | 2024-07-20 08:31 | XMS_ITS | Encounter Summary ---
Author Name [facility] [place] [facility] [place] [facility] [place] [facility] [place] Address [address] [place] [id number] Care Team Providers Care Telephone Station Installer Name Role Phone AJAY RUSSELL Primary Care [...] PART A Nov 22, 2006 PART A [id number] TONY LOGAN PATIENT MEDICARE (WNR) MEDICARE (M) PART B Nov 22, 2006 PART B [id number] TONY LOGAN PATIENT MEDICARE (WNR) MEDICARE (M) PART A Nov 22, 2006 PART A [id number] TONY LOGAN PATIENT MEDICARE (WNR) MEDICARE (M) PART B Nov 22, 2006 PART B [id number] [id number] TONY LOGAN PATIENT FOR LIFE TFL* Apr 20, 2014 [id number] SUKHJINDER LGOAN JR PATIENT Selected Encounter This section includes the information on record at [place] for the Encounter. Date/Time Encounter Type Encounter Description Reason Provider Source Feb 23, 2024 03:00 PM DIAB MANAGE TRN PER [facility] ICD-10-CM E11.8 Type 2 diabetes mellitus with unspecified complications ROBB ROSAS [facility] Encounter Template Text not used by [place] Assessments - Encounter Diagnoses This section includes the primary and secondary diagnoses documented for the Encounter. Date/Time Primary/Secondary Diagnosis Diagnosis Name Provider Source Feb 23, 2024 04:23 PM PRIMARY Type 2 diabetes mellitus with unspecified complications ROBB ROSAS [facility] [place] [facility] Plan of Treatment: Future Appointments (+ 6 months) and Future Tests (+/- 45 days) The Plan of Treatment section includes future care activities for the patient [facility] [place] [facility] This section includes future appointments and future orders which are active, pending or scheduled. Future Appointments This section includes appointments that were scheduled to occur 6 months from the date of the Encounter, up to a maximum of 20 appointments. The data comes from all [place] treatment facilities. Appointment Date/Time Appointment Type Appointme nt Facility Name Mar 03, 2024 02:00 PM AM[place]ULATORY [place]ICINE [place] [facility] [place] [facility] Mar 03, 2024 02:30 PM AM[place]ULATORY [place]ICINE [place] [facility] [place] [facility] Apr 07, 2024 08:00 AM AMBULATORY - MEDICINE [place] [facility] [place] [facility] Apr 27, 2024 03:00 PM AMBULATORY - MEDICINE [place] [facility] [place] [facility] May 05, 2024 11:30 AM AMBULATORY - MEDICINE [place] [facility] [place] [facility] May 17, 2024 02:00 PM AMBULATORY - MEDICINE [place] [facility] [place] [facility] Jul 08, 2024 09:00 AM AMBULATORY - MEDICINE [place] [facility] [place] [facility] Jul 13, 2024 11:30 AM AMBULATORY - MEDICINE [place] [facility] [place] [facility] July 26, 2024 03:00 PM AMBULATORY - MEDICINE [place] [facility] [place] [facility] Lab Results: +/- 30 days of the encounter This section includes the Chemistry and Hematology Lab Results on record with [place] for the patient. Radiology Reports and Pathology Reports are provided separately, in subsequent sections. Lab Results This section contains the Chemistry/Hematology Results that were resulted 30 days before or 30 daysafter the date of the Encounter. Date/Time Source Result Type Result - Unit Interpretation Reference Range Specimen Type Comment Jan 29, 2024 09:49 AM [facility] CREATININE (eGFR 2020) SERUM Specimen Type: SERUM No comment entered. Ordering Provider: MINA RUSSELL Report Released Date/Time: Jan 27, 2024 07:33 AM Reporting Lab: [facility] [address] [facility] [id number] Performing Lab: [facility] [address] [facility] [id number] CREATININE, Serum 1.86 mg/dL H 0.50-1.40 eGFR(CKD-EPI 2020) 36 mL/min L >60 Jan 29, 2024 09:49 AM [facility] PT & INR (COUMADIN) PLASMA Specimen Type: PLAS [place] No comment entered. Ordering Provider: AJAY RUSSELL Report Released Date/Time: Jan 27, 2024 07:33 AM Reporting Lab: [facility] [address] [facility] [id number] Performing Lab: [facility] [address] [facility] [id number] INR 1.3 PROTIME 14.6 s H 10.0-13.1 Jan 29, 2024 09:49 AM [facility] LIVER FUNCTION SERUM Specimen Type: SERUM No comment entered. Ordering Provider: AJAY RUSSELL Report Released Date/Time: Jan 27, 2024 07:33 AM Reporting Lab: [facility] [address] [facility] [id number] Performing Lab: [facility] [address] [facility] [id number] PROTEIN,TOTAL 7.4 g/dL 6.0-8.3 ALBUMIN 3.2 g/dL L 3.5-5.0 ALKALINE PHOSPHATASE 66 U/L 40-150 AST 30 U/L 5-34 ALT 31 U/L BILIRUBIN, TOTAL 0.4 mg/dL 0.2-1.2 Jan 29, 2024 09:49 AM [facility] CBC BLOOD Specimen Type: BLOOD No comment entered. Ordering Provider: AJAY RUSSELL Report Released Date/Time: Jan 27, 2024 07:33 AM Reporting Lab: [facility] [address] [facility] [id number] Performing Lab: [facility] [address] [facility] [address] WBC 6.95 10*3/uL 4.50-11.00 RBC 3.19 10*6/uL [...] and tobacco- related health factors from the [place] facility where the Encounter took place. Current Smoking Status This section includes the most current smoking, or tobacco-related health factor, from the [place] facility where the Encounter took place. Date/Time Current Smoking Status Comment [facility] Jan 06, 2024 09:30 AM [place]-TOBACCO QUIT 15 YRS OR MORE [facility] Tobacco Use History This section includes a history of the smoking, or tobacco-related health factors, that were collected on or before the date of the Encounter. The data comes from the [place] facility where the Encounter took place. Date/Time Smoking Status/Tobac co Use Comment Facility Jan 06, 2024 09:30 AM [facility]-TOBACCO QUIT 15 YRS OR MORE [facility] [place] [facility] Dec 24, 2022 10:30 AM VA-TOBACCO FORMER USER [place] [facility] [place] [facility] Dec 24, 2022 10:30 AM VA-TOBACCO QUIT 15 YRS OR MORE [facility] Dec 24, 2021 10:00 AM [facility] Dec 24, 2021 10:00 AM VA-TOBACCO QUIT 5 TO < 15 YRS [facility] [place] [facility] Dec 14, 2020 08:30 AM VA-TOBACCO FORMER USER [facility] [place] [facility] Dec 14, 2020 08:30 AM VA-TOBACCO QUIT 5 TO < 15 YRS [facility] [place] [facility] Nov 15, 2019 11:00 AM VA-TOBACCO FORMER USER [facility] [place] [facility] Nov 15, 2019 11:00 AM VA-TOBACCO QUIT 5 TO < 15 YRS [facility] [place] [facility] Oct 20, 2017 08:19 AM VA-TOBACCO FORMER USER [place] [facility] [place] [facility] Oct 20, 2017 08:19 AM VA-TOBACCO QUIT 5 TO < 15 YRS [facility] [place] [facility] Sep 04, 2017 11:09 AM QUIT TOBACCO USE > 7 YEARS AGO [facility] [place] [facility] Oct 16, 2016 09:08 AM QUIT TOBACCO USE > 7 YEARS AGO [facility] [place] [facility] Feb 20, 2015 10:58 AM QUIT TOBACCO USE > 7 YEARS AGO quit 2009-cigarettes and cigars for 45 years [facility] Advance Directives: All historical and current Section Date Range: From patient's date of to the date document was created. This section includes ALL of a patient's completed or amended VA Advance and Rescinded Directives. The entries below indicate that a directive exists for the patient, but an actual copy is not included with this document. The data comes from all [place] facilities. Date Advance Directives Provider Source Mar 23, 2014 ADVANCE DIRECTIVE ROSALINDA SHELBY [place] [facility] [place] [facility] Encounter Notes: All associated encounter notes This [...] - he is on his last sensor /es/ ANGELES JUNIOR Clinical Server Service Assistant Signed: 02/24/2024 14:10 Receipt Acknowledged By: 02/24/2024 15:46 /es/ VICTORINA TIRADO, PHARMD,BCPS CLINICAL PHARMACY PRACTITIONER --- Original Document --- 02/23/24 DIABETES EDU FOLLOW UP: FOLLOW UP DIABETES EDUCATION VISIT Demographics: Patient Name: TONY LOGAN JR Age: 83 Sex: MALE Race: WHITE MARITAL STATUS - Introduction: Howes Cave identified with 2 identifiers: [X] Full Name [X] Date of [ ] Address [ ] [place] ID Card PATIENT PHONE - PHONE NUMBER [CELLULAR] - Is patient phone number correct, if not, enter below: Howes Cave's phone number: TONY LOGAN JR [address] [place], [place], [address] MOST RECENT LABS: HEMOGLOBIN A1C TREND Collection [...] Alcohol- quit in 1981 (came [place] the [place] program to [place]) Marijuana- no Other- no None DIABETES SELF MANAGEMENT DIET: In the last 12 months, were there times when food did not last and there was no money to buy more? No, [facility] [place] in [place] offers a bag of groceries for Veterans. [...] tablets 3-4 Medic ID: Has one from [place] Glucagon kit: No MONITORING Currently using the [employer] 3 sensor and child therapist and able to download it during appointment. [...] time. Denied concerns Comments: Last seen by oiler helper this month. CARDIOVASCULAR/CEREBROVASCU LAR Pain/palpitations- no, has a heart murmur Angina pectoris Myocardial infarction- No Hypertension- being treated Hyperlipidemia- being treated TIA- no Stroke (CVA)- no Denied concerns Comments: Aortic valve replacement and pacemaker installed. 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. Prior diabetes education: SMART GO[employer] HEALTH GOAL [...] Empagliflozin (even though it was discontinued by [place]) because Principal Hardware Architect wants him taking it. He did not receive a new meter from the [place] or the company, therefore, we called [employer] today during this appointment and requested they send a meter. The [place] is only giving out 1 meter for [...] before noon, and 10 units before dinner Howes Cave will return for Diabetes Education in 1 [...] TEACHING MATERIALS GIVEN: Devon 3 sensors and child therapist. EDUCATION: -Reviewed sensor download in detail. -Reviewed pattern management and insulin adjustment. INSTRUCTIONS: -Continue using the Devon 3 sensor to monitor blood sugars. -Please keep the Devon 2 child therapist incase there is a shortage of Devon [...] of Visit: 60 minutes /tyree ROSAS RN,BSN, [facility] DIABETES STRUCTURAL IRON WORKER, RN Signed: 02/23/2024 16:23 Receipt Acknowledged By: 02/24/2024 08:01 /tyree BUTTS MD STAFF PHYSICIAN 02/24/2024 07:13 /jus/ Ajay Russell DNP, INSPECTION MACHINE TENDER-BC, CNL Primary Care Nurse Practitioner 02/23/2024 ADDENDUM [...] them in time for his trip to [place]. He is leaving on the . Diabetes Education is happy to call him with an update after you respond to this message. Thank you! /tyree ROSAS RN,BSN, [facility] DIABETES STRUCTURAL IRON WORKER, RN Signed: 02/23/2024 16:28 Receipt Acknowledged By: * AWAITING SIGNATURE * MIAH BUTTS 02/23/2024 ADDENDUM STATUS: COMPLETED Pt currently followed in [facility], with no scheduled appts. /tyree BUTTS MD STAFF PHYSICIAN Signed: 02/23/2024 18:57 Receipt Acknowledged By: 02/24/2024 12:50 /jus/ VICTORINA TIRADO, PHARMD,BCPS CLINICAL PHARMACY PRACTITIONER 02/23/2024 ADDENDUM STATUS: COMPLETED AMSA, pt is followed by [facility], but, in view of elevated bg, [...] schedule the appointment. Mailed appointment letter. /jus/ TOMHARLEEN RIZZO Signed: 02/24/2024 11:53 02/24/2024 ADDENDUM STATUS: COMPLETED Please schedule intial visit with pt 60 mins FTF, VVC or telephone - pt referred by Dr. Butts was initially scheduled and apt was cancelled but not rescheduled? Pt is seeing and Dm education in March- schedule for Apr or May, thank you /tyree TIRADO PHARMD,[facility] CLINICAL PHARMACY PRACTITIONER Signed: 02/24/2024 12:58 Receipt Acknowledged By: 02/24/2024 14:04 /tyree JUNIOR Clinical Server Service Assistant ANGEELS JUNIOR [place] [facility] [place] [facility] Feb 24, 2024 12:54 PM ADDENDUM: LOCAL [...] is seeing and Dm education in March- schedule for Apr or May, thank you /tyree TIRADO PHARMD,[facility] CLINICAL PHARMACY PRACTITIONER Signed: 02/24/2024 12:58 Receipt Acknowledged By: 02/24/2024 14:04 /tyree JUNIOR Clinical Server Service Assistant --- Original Document --- 02/23/24 DIABETES EDU FOLLOW UP: FOLLOW UP DIABETES EDUCATION VISIT Demographics: Patient Name: TONY LOGAN Age: 83 Sex: MALE Race: WHITE MARITAL STATUS - Introduction: identified with 2 identifiers: [X] Full Name [X] Date of [ ] Address [ ] [place] ID Card PATIENT PHONE - PHONE NUMBER [CELLULAR] - Is patient phone number correct, if not, enter below: Howes Cave's phone number: TONY LOGAN JR [address] [place], [place], [address] MOST RECENT LABS: HEMOGLOBIN A1C TREND Collection [...] money to buy more? No, [facility] [place] in [place] offers a bag of groceries for Veterans. [...] tablets 3-4 Medic ID: [place] one from [place] Glucagon kit: No MONITORING Currently using the Devon 3 sensor and child therapist and able to download it during appointment. [...] time. Denied concerns Comments: Last seen by oiler helper this month. CARDIOVASCULAR/CEREBROVASCU LAR Pain/palpitations- no, has a heart murmur Angina pectoris Myocardial infarction- No Hypertension- being treated Hyperlipidemia- being treated TIA- no Stroke (CVA)- no Denied concerns Comments: Aortic valve replacement and pacemaker installed. 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. Prior diabetes education: SM[employer] GO[employer] HEALTH GOAL [...] Empagliflozin (even though it was discontinued by [place]) because Principal Hardware Architect wants him taking it. He did not receive a new meter from the [place] or the company, therefore, we called [employer] today during this appointment and requested they send a meter. The [place] is only giving out 1 meter for [...] TEACHING MATERIALS GIVEN: Devon 3 sensors and child therapist. EDUCATION: -Reviewed sensor download in detail. -Reviewed pattern management and insulin adjustment. INSTRUCTIONS: -Continue using the Devon 3 sensor to monitor blood sugars. -Please keep the Devon 2 child therapist incase there is a shortage of Devon [...] 60 minutes /es/ DOUGLAS ROSAS, RN,BSN, [facility] DIABETES STRUCTURAL IRON WORKER, RN Signed: 02/23/2024 16:23 Receipt Acknowledged By: 02/24/2024 08:01 /jus/ MIAH BUTTS MD STAFF PHYSICIAN 02/24/2024 07:13 /es/ Ajay Russell DNP, INSPECTION MACHINE TENDER-BC, CNL Primary Care Nurse Practitioner 02/23/2024 ADDENDUM STATUS: COMPLETED Dr. Butts- Howes Cave was seen today and his sensor download [...] them in time for his trip to [place]. He is leaving on the . Diabetes Education is happy to call him with an update after you respond to this message. Thank you! /jus/ DOUGLAS ROSAS RN,BSN, [facility] DIABETES STRUCTURAL IRON WORKER, RN Signed: 02/23/2024 16:28 Receipt Acknowledged By: * AWAITING SIGNATURE * MIAH BUTTS 02/23/2024 ADDENDUM STATUS: COMPLETED Pt currently followed in [facility], with no scheduled appts. /tyree BUTTS MD STAFF PHYSICIAN Signed: 02/23/2024 18:57 Receipt Acknowledged By: 02/24/2024 12:50 /tyree TIRADO PHARMD,[facility] CLINICAL PHARMACY PRACTITIONER 02/23/2024 ADDENDUM STATUS: COMPLETED JOSESITO, pt is followed by [facility], but, in view of elevated bg, I would like to make a follow up appt with him as well, and ask for labs. Thank you. Please see RTC. /tyree BUTTS MD STAFF PHYSICIAN Signed: 02/23/2024 19:01 Receipt Acknowledged By: 02/24/2024 11:44 /tyree RIZZO 02/24/2024 ADDENDUM STATUS: COMPLETED JOSESITO called and left a voicemail for the to schedule the appointment. Mailed appointment letter. /tyree RIZZO Signed: 02/24/2024 11:53 VICTORINA TIRADO [place] [facility] [place] [facility] Feb 23, 2024 07:00 PM ADDENDUM: LOCAL TITLE: Addendum STANDARD TITLE: ADDENDUM DATE OF NOTE: FEB 23, 2024@19:00:01 ENTRY DATE: FEB 23, 2024@19:00:02 AUTHOR: MIAH BUTTS COSIGNER: URGENCY: STATUS: COMPLETED JOSESITO, pt is followed by [facility], but, in view of elevated bg, I would like to make a follow up appt with him as well, and ask for labs. Thank you. Please see RTC. /tyree BUTTS MD STAFF PHYSICIAN Signed: 02/23/2024 19:01 Receipt Acknowledged By: 02/24/2024 11:44 /jus/ TOMHARLEEN RIZZO --- Original Document --- 02/23/24 DIABETES [...] 's phone number: TONY LOGAN JR [address], [place], [address] MOST RECENT LABS: HEMOGLOBIN A1C TREND Collection [...] Alcohol- quit in 1981 ([place]) Marijuana- no Other- no None DIABETES SELF MANAGEMENT DIET: In the last 12 months, were there times when food did not last and there was no money to buy more? No, [facility] in [place] offers a bag of groceries for Veterans. [...] tablets 3-4 Medic ID: [place] one from [place] Glucagon kit: No MONITORING Currently using the Devon 3 sensor and child therapist and able to download it during appointment. [...] time. Denied concerns Comments: Last seen by oiler helper this month. CARDIOVASCULAR/CEREBROVASCU LAR Pain/palpitations- no, has a heart murmur Angina pectoris Myocardial infarction- No Hypertension- being treated Hyperlipidemia- being treated TIA- no Stroke (CVA)- no Denied concerns Comments: Aortic valve replacement and pacemaker installed. 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. Prior diabetes education: SMART GOALS HEALTH GOAL [...] Empagliflozin (even though it was discontinued by [place]) because Principal Hardware Architect wants him taking it. He did not receive a new meter from the [place] or the company, therefore, we called [employer] today during this appointment and requested they send a meter. The [facility] is only giving out 1 meter for [...] TEACHING MATERIALS GIVEN: Devon 3 sensors and child therapist. EDUCATION: -Reviewed sensor download in detail. -Reviewed pattern management and insulin adjustment. INSTRUCTIONS: -Continue using the Devon 3 sensor to monitor blood sugars. -Please keep the Devon 2 child therapist incase there is a shortage of Devon [...] Length of Visit: 60 minutes /es/ DOUGLAS P RALPH, RN,BSN, [facility] DIABETES STRUCTURAL IRON WORKER, RN Signed: 02/23/2024 16:23 Receipt Acknowledged By: 02/24/2024 08:01 /tyree BUTTS MD STAFF PHYSICIAN 02/24/2024 07:13 /jus/ Ajay Russell DNP, INSPECTION MACHINE TENDER-BC, CNL Primary Care Nurse Practitioner 02/23/2024 ADDENDUM [...] them in time for his trip to [place]. He is leaving on the . Diabetes Education is happy to call him with an update after you respond to this message. Thank you! /tyree ROSAS RN,BSN, [facility] DIABETES STRUCTURAL IRON WORKER, RN Signed: 02/23/2024 16:28 Receipt Acknowledged By: * AWAITING SIGNATURE * MIAH BUTTS 02/23/2024 ADDENDUM STATUS: COMPLETED Pt currently followed in [facility], with no scheduled appts. /tyree BUTTS MD STAFF PHYSICIAN Signed: 02/23/2024 18:57 Receipt Acknowledged By: * AWAITING SIGNATURE * VICTORINA TIRADO ALICE [place] [facility] [place] [facility] Feb 23, 2024 06:57 PM ADDENDUM: LOCAL TITLE: Addendum STANDARD TITLE: ADDENDUM DATE OF NOTE: FEB 23, 2024@18:57:21 ENTRY DATE: FEB 23, 2024@18:57:21 AUTHOR: MIAH BUTTSER: URGENCY: STATUS: COMPLETED Pt currently followed in [facility], with no scheduled appts. /tyree BUTTS MD STAFF PHYSICIAN Signed: 02/23/2024 18:57 Receipt Acknowledged By: 02/24/2024 12:50 /tyree TIRADO, PHARMD,BCPS CLINICAL PHARMACY PRACTITIONER --- Original Document --- 02/23/24 DIABETES EDU FOLLOW UP: FOLLOW UP DIABETES EDUCATION VISIT Demographics: Patient Name: TONY LOGAN JR Age: 83 Sex: MALE Race: WHITE MARITAL STATUS - Introduction: Howes Cave identified with 2 identifiers: [X] Full Name [X] Date of [ ] Address [ ] [place] ID Card PATIENT PHONE - PHONE NUMBER [CELLULAR] - Is patient phone number correct, if not, enter below: 's phone number: TONY LOGAN JR [address], [place], [address] MOST RECENT LABS: HEMOGLOBIN A1C TREND Collection [...] money to buy more? No, [facility] [place] in [place] offers a bag of groceries for Veterans. [...] tablets 3-4 Medic ID: [place] one from [place] Glucagon kit: No MONITORING Currently using the Devon 3 sensor and child therapist and able to download it during appointment. [...] time. Denied concerns Comments: Last seen by oiler helper this month. CARDIOVASCULAR/CEREBROVASCU LAR Pain/palpitations- no, has a heart murmur Angina pectoris Myocardial infarction- No Hypertension- being treated Hyperlipidemia- being treated TIA- no Stroke (CVA)- no Denied concerns Comments: Aortic valve replacement and pacemaker installed. 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. Prior diabetes education: SMART GOALS HEALTH GOAL [...] Empagliflozin (even though it was discontinued by [place]) because Principal Hardware Architect wants him taking it. He did not receive a new meter from the [place] or the company, therefore, we called [employer] today during this appointment and requested they send [place]es Cave a meter. The [facility] is only giving out 1 meter for the lifetime of the Howes Cave. Recent health history includes: pacemaker implanted in May of 2023 and aortic valve replacement in November of 2023. We adjusted his insulin as follows because sensor download reveals he is above 180 mg/dl most of the day. - Increase Novolog insulin: 9 units before eggs, 15 units before cereal AM, 7 units before noon, and 10 units before dinner Howes Cave will return for Diabetes Education in 1 [...] TEACHING MATERIALS GIVEN: Devon 3 sensors and child therapist. EDUCATION: -Reviewed sensor download in detail. -Reviewed pattern management and insulin adjustment. INSTRUCTIONS: -Continue using the Devon 3 sensor to monitor blood sugars. -Please keep the Devon 2 child therapist incase there is a shortage of Devon [...] Visit: 60 minutes /jus/ DOUGLAS ROSAS RN,BSN, [facility] DIAB[facility] STRUCTURAL IRON WORKER, RN Signed: 02/23/2024 16:23 Receipt Acknowledged By: 02/24/2024 08:01 /jus/ MIAH BUTTS MD STAFF PHYSICIAN 02/24/2024 07:13 /jus/ Ajay Russlel DNP, INSPECTION MACHINE TENDER-, CNL Primary Care Nurse Practitioner 02/23/2024 ADDENDUM STATUS: COMPLETED Dr. Butts- Howes Cave was seen today and his sensor download [...] them in time for his trip to [place]. He is leaving on the . Diabetes Education is happy to call him with an update after you respond to this message. Thank you! /jus/ DOUGLAS ROSAS, RN,BSN, [facility] DIABETES STRUCTURAL IRON WORKER, RN Signed: 02/23/2024 16:28 Receipt Acknowledged By: * AWAITING SIGNATURE * MIAH BUTTS 02/23/2024 ADDENDUM STATUS: COMPLETED JOSESITO, pt is followed by [facility], but, in view of elevated bg, I would like to make a follow up appt with him as well, and ask for labs. Thank you. Please see RTC. /jus/ MIAH BUTTS MD STAFF PHYSICIAN Signed: 02/23/2024 19:01 Receipt Acknowledged By: 02/24/2024 11:44 /jus/ TOM RIZZO 02/24/2024 ADDENDUM STATUS: COMPLETED JOSESITO called and left a voicemail for the to schedule the appointment. Mailed appointment letter. /jus/ TMO RIZZO Signed: 02/24/2024 11:53 MIAH BUTTS [place] [facility] [place] [facility] Feb 23, 2024 04:28 PM DIABETOLOGY NOTE: LOCAL TITLE: INSULIN PUMP/CGM DOWNLOAD (T) STANDARD TITLE: DIABETOLOGY NOTE DATE OF NOTE: FEB 23, 2024@16:28 ENTRY DATE: FEB 23, 2024@16:28:29 AUTHOR: DOUGLAS ROSAS EXP COSIGNER: URGENCY: STATUS: COMPLETED Please select: Personal Continuous Glucose Monitor Date of Documentation:Feb Please see attached scanned document in [facility]. DX: Type 2 diabetes Sensor: Devon 3 /jus/ DOUGLAS ROSAS RN,BSN, [facility] DI[facility] STRUCTURAL IRON WORKER, RN Signed: 02/23/2024 16:28 DOUGLAS ROSAS [place] [facility] [place] [facility] Feb 23, 2024 04:25 PM ADDENDUM: LOCAL TITLE: Addendum STANDARD TITLE: ADDENDUM DATE OF NOTE: FEB 23, 2024@16:25:27 ENTRY DATE: FEB 23, 2024@16:25:27 AUTHOR: DOUGLAS ROSAS EXP COSIGNER: URGENCY: STATUS: COMPLETED Dr. Butts- Howes Cave was seen today and his sensor download [...] them in time for his trip to [place]. He is leaving on the . Diabetes Education is happy to call him with an update after you respond to this message. Thank you! /jus/ DOUGLAS ROSAS RN,BSN, [facility] DI[employer] STRUCTURAL IRON WORKER, RN Signed: 02/23/2024 16:28 Receipt Acknowledged By: 02/25/2024 13:04 /jus/ MIAH BUTTS MD STAFF PHYSICIAN --- Original Document --- 02/23/24 DIABETES EDU FOLLOW UP: FOLLOW UP DIABETES EDUCATION VISIT Demographics: Patient Name: TONY LOGAN JR Age: 83 Sex: MALE Race: WHITE MARITAL STATUS - Introduction: Howes Cave identified with 2 identifiers: [X] Full Name [X] Date of [ ] Address [ ] VA ID Card PATIENT PHONE - PHONE NUMBER [CELLULAR] - Is patient phone number correct, if not, enter below: Howes Cave's phone number: TONY LOGAN JR [address] [place], [place], [address] MOST RECENT LABS: HEMOGLOBIN A1C TREND Collection [...] was no money to buy more? No, [facility] in [place] offers a bag of groceries for Veterans. [...] tablets 3-4 Medic ID: [place] one from [place] Glucagon kit: No MONITORING Currently using the [employer] 3 sensor and child therapist and able to download it during appointment. [...] time. Denied concerns Comments: Last seen by oiler helper this month. CARDIOVASCULAR/CEREBROVASCU LAR Pain/palpitations- no, has a heart murmur Angina pectoris Myocardial infarction- No Hypertension- being treated Hyperlipidemia- being treated TIA- no Stroke (CVA)- no Denied concerns Comments: Aortic valve replacement and pacemaker installed. 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. Prior diabetes education: SM[employer] GO[employer] HEALTH GOAL [...] Empagliflozin (even though it was discontinued by [place]) because Principal Hardware Architect wants him taking it. He did not receive a new meter from the [place] or the company, therefore, we called [employer] today during this appointment and requested they send Howes Cave a meter. The [facility] is only giving out 1 meter for [...] before noon, and 10 units before dinner Howes Cave will return for Diabetes Education in 1 [...] TEACHING MATERIALS GIVEN: Devon 3 sensors and child therapist. EDUCATION: -Reviewed sensor download in detail. -Reviewed pattern management and insulin adjustment. INSTRUCTIONS: -Continue using the Devon 3 sensor to monitor blood sugars. -Please keep the Devon 2 child therapist incase there is a shortage of Devon [...] Visit: 60 minutes /jus/ DOUGLAS ROSAS, RN,BSN, [facility] DIABETES STRUCTURAL IRON WORKER, RN Signed: 02/23/2024 16:23 Receipt Acknowledged By: 02/24/2024 08:01 /jus/ MIAH BUTTS MD STAFF PHYSICIAN 02/24/2024 07:13 /es/ Ajay Russell DNP, INSPECTION MACHINE TENDER-BC, CNL Primary Care Nurse Practitioner 02/23/2024 ADDENDUM STATUS: COMPLETED Pt currently followed in [facility], with no scheduled appts. /jus/ MIAH BUTTS MD STAFF PHYSICIAN Signed: 02/23/2024 18:57 Receipt Acknowledged By: 02/24/2024 12:50 /es/ VICTORINA TIRADO, PHARMD,BCPS CLINICAL PHARMACY PRACTITIONER 02/23/2024 ADDENDUM STATUS: COMPLETED AMSA, pt is followed by [facility], but, in view of elevated bg, I would like to make a follow up appt with him as well, and ask for labs. Thank you. Please see RTC. /jus/ MIAH BUTTS MD STAFF PHYSICIAN Signed: 02/23/2024 19:01 Receipt Acknowledged By: 02/24/2024 11:44 /tyree RIZZO 02/24/2024 ADDENDUM STATUS: COMPLETED AMSA called [...] or May, thank you /jus/ VICTORINA TIRADO PHARMD,EDIS CLINICAL PHARMACY PRACTITIONER Signed: 02/24/2024 12:58 Receipt Acknowledged By: 02/24/2024 14:04 /jus/ ANGELES JUNIOR Clinical Server Service Assistant 02/24/2024 ADDENDUM STATUS: COMPLETED Patient is scheduled for 05/17 at 2:00 for an in clinic visit. Last appt was cancelled due to Devon 3 being unavailable. Patient states he needs his Devon renewed - he is on his last sensor /jus/ ANGELES JUNIOR Clinical Server Service Assistant Signed: 02/24/2024 14:10 Receipt Acknowledged By: 02/24/2024 15:46 /tyree TIRADO PHARMD,EDIS CLINICAL PHARMACY PRACTITIONER DOUGLAS ROSAS [facility] [place] [facility] Feb 23, 2024 03:03 PM DIABETOLOGY EDUCATION [...] MALE Race: WHITE MARITAL STATUS - Introduction: Howes Cave identified with 2 identifiers: [X] Full Name [X] Date of [ ] Address [ ] VA ID Card PATIENT PHONE - PHONE NUMBER [CELLULAR] - Is patient phone number correct, if not, enter below: Howes Cave's phone number: TONY LOGAN JR [address] [facility] [place], [place], [address] MOST RECENT LABS: HEMOGLOBIN A1C TREND Collection [...] money to buy more? No, [facility] in [place] offers a bag of groceries for Veterans. [...] tablets 3-4 Medic ID: [place] one from [place] Glucagon kit: No MONITORING Currently using the Devon 3 sensor and child therapist and able to download it during appointment. [...] time. Denied concerns Comments: Last seen by oiler helper this month. CARDIOVASCULAR/CEREBROVASCU LAR Pain/palpitations- no, has a heart murmur Angina pectoris Myocardial infarction- No Hypertension- being treated Hyperlipidemia- being treated TIA- no Stroke (CVA)- no Denied concerns Comments: Aortic valve replacement and pacemaker installed. 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. Prior diabetes education: SM[employer] GOALS HEALTH GOAL [...] Empagliflozin (even though it was discontinued by [place]) because Principal Hardware Architect wants him taking it. He did not receive a new meter from the [place] or the company, therefore, we called [facility] today during this appointment and requested they send a meter. The [place] is only giving out 1 meter for [...] TEACHING MATERIALS GIVEN: Devon 3 sensors and child therapist. EDUCATION: -Reviewed sensor download in detail. -Reviewed pattern management and insulin adjustment. INSTRUCTIONS: -Continue using the Devon 3 sensor to monitor blood sugars. -Please keep the Devon 2 child therapist incase there is a shortage of Devon [...] Length of Visit: 60 minutes /es/ DOUGLAS ROSAS RN,BSN, [facility] DIABETES STRUCTURAL IRON WORKER, RN Signed: 02/23/2024 16:23 Receipt Acknowledged By: 02/24/2024 08:01 /es/ MIAH BUTTS MD STAFF PHYSICIAN 02/24/2024 07:13 /es/ Ajay Russell DNP, INSPECTION MACHINE TENDER-BC, CNL Primary Care Nurse Practitioner 02/23/2024 ADDENDUM STATUS: COMPLETED Dr. Butts- Howes Cave was seen today and his sensor download [...] them in time for his trip to [place]. He is leaving on the . Diabetes Education is happy to call him with an update after you respond to this message. Thank you! /jus/ DOUGLAS ROSAS, RN,BSN, [facility] DIABETES STRUCTURAL IRON WORKER, RN Signed: 02/23/2024 16:28 Receipt Acknowledged By: * AWAITING SIGNATURE * MIAH BUTTS 02/23/2024 ADDENDUM STATUS: COMPLETED Pt currently followed in [facility], with no scheduled appts. /tyree BUTTS MD STAFF PHYSICIAN Signed: 02/23/2024 18:57 Receipt Acknowledged By: 02/24/2024 12:50 /jus/ VICTORINA TIRADO PHARMD,[facility] CLINICAL PHARMACY PRACTITIONER 02/23/2024 ADDENDUM STATUS: COMPLETED AMSA, pt is followed by [facility], but, in view of elevated bg, [...] or May, thank you /jus/ VICTORINA TIRADO PHARMD,[facility] CLINICAL PHARMACY PRACTITIONER Signed: 02/24/2024 12:58 Receipt Acknowledged By: 02/24/2024 14:04 /jus/ ANGELES JUNIOR Clinical Server Service Assistant 02/24/2024 ADDENDUM STATUS: COMPLETED Patient is scheduled for 05/17 at 2:00 for an in clinic visit. Last appt was cancelled due to Devon 3 being unavailable. Patient states he needs his Devon renewed - he is on his last sensor /es/ ANGELES JUNIOR Clinical Server Service Assistant Signed: 02/24/2024 14:10 Receipt Acknowledged By: * AWAITING SIGNATURE * VICTORINA TIRADO [facility]
--- OUTSIDE RECORDS SUMMARY | 2024-07-20 08:31 | XMS_ITS | Referral Summary ---
Author Organization [facility] Address [address] [place] [address] Care Team Providers Care Fish Bailer Name Role Phone Donte Powell Primary Care Provider [phone] Allergies Active Allergy Reactions Criticality Noted Date Comments [place] [facility] he is allergic to shellfish [...] 04/11/2021 11:00 AM EST Plan of Treatment Not on file Procedures * Due to [place] [employer] law, this organization might not be sharing [...] to Health Maintenance Results * Due to [place] [employer] law, this organization might not be sharing negative HIV tests. * (ABNORMAL) CBC Auto Differential (09/29/2023 1:42 PM EDT) WBC 7.2 3.8 - 10.8 10*3/uL 09/29/2023 2:15 PM EDT [facility] RBC 3.74(L) 4.20 - 5.80 10*6/uL 09/29/2023 2:15 PM EDT [facility] Hemoglobin 11.4(L) 13.2 - 17.1 g/dL 09/29/2023 2:15 PM EDT [facility] Hematocrit 35.5(L) 38.5 - 50.0 % 09/29/2023 2:15 PM EDT [facility] MCV 94.9 80.0 - 100.0 fL 09/29/2023 2:15 PM EDT [facility] MCH 30.5 27.0 - 33.0 pg 09/29/2023 2:15 PM EDT [facility] MCHC 32.1 32.0 - 36.0 g/dL 09/29/2023 2:15 PM EDT [facility] RDW 14.7 11.0 - 15.0 % 09/29/2023 2:15 PM EDT [facility] Platelets 184 140 - 400 10*3/uL 09/29/2023 2:15 PM EDT [facility] MPV 11.3 7.5 - 12.5 fL 09/29/2023 2:15 PM EDT [facility] Neutrophil % 73.2 % 09/29/2023 2:15 PM EDT [facility] Immature Grans % 0.6 0.0 - 0.9 % 09/29/2023 2:15 PM EDT [facility] Lymphocyte % 16.5 % 09/29/2023 2:15 PM EDT [facility] Monocyte % 9.2 % 09/29/2023 2:15 PM EDT [facility] Eosinophil % 0.4 % 09/29/2023 2:15 PM EDT [facility] Basophil % 0.1 % 09/29/2023 2:15 PM EDT [facility] Neutrophil # 5.24 1.50 - 7.80 10*3/uL 09/29/2023 2:15 PM EDT [facility] Immature Grans # 0.04(H) <=0.03 10*3/uL 09/29/2023 2:15 PM EDT [facility] Lymphocyte # 1.20 0.85 - 3.90 10*3/uL 09/29/2023 2:15 PM EDT [facility] [place] [facility] Monocyte # 0.70 0.20 - 0.95 10*3/uL 09/29/2023 2:15 PM EDT [facility] Eosinophil # <0.03 0.02 - 0.50 10*3/uL 09/29/2023 2:15 PM EDT [facility] [place] [facility] Basophil # <0.03 0.00 - 0.20 10*3/uL 09/29/2023 2:15 PM EDT [facility] [place] [facility] nRBC % 0.0 /100 WBCs 09/29/2023 2:15 PM EDT [facility] nRBC # <0.01 <0.01 10*3/uL 09/29/2023 2:15 PM EDT [facility] [place] [facility] Total Neutrophil #, Preliminary 5.24 1.50 - 7.80 10*3/uL 09/29/2023 2:15 PM EDT [facility] Blood Structure of peripheral vein / Unknown Venipuncture / Unknown 09/29/2023 1:42 PM EDT 09/29/2023 2:06 PM EDT us George Vaca MD PhD LAB BLOOD ORDERABLES Final Resu lt [facility] [address] [place] [address], * (ABNORMAL) Comprehensive Metabolic Panel (09/29/2023 1:42 PM EDT) NA 137 135 - 145 mmol/L 09/29/2023 2:57 PM EDT [facility] K 4.6 3.5 - 5.3 mmol/L 09/29/2023 2:57 PM EDT [facility] Cl 100 98 - 107 mmol/L 09/29/2023 2:57 PM EDT [facility] CO2 23(L) 24 - 32 mmol/L 09/29/2023 2:57 PM EDT [facility] Anion Gap 14 5 - 15 09/29/2023 2:57 PM EDT [facility] Glucose 173(H) 65 - 99 mg/dL 09/29/2023 2:57 PM EDT [facility] Creatinine 1.94(H) 0.60 - 1.30 mg/dL 09/29/2023 2:57 PM EDT [facility] Calcium 9.4 8.6 - 10.5 mg/dL 09/29/2023 2:57 PM EDT [facility] Total Protein 7.9 6.0 - 8.0 g/dL 09/29/2023 2:57 PM EDT [facility] Albumin 4.1 3.5 - 5.2 g/dL 09/29/2023 2:57 PM EDT [facility] Bilirubin, Total 0.3 0.2 - 1.2 mg/dL 09/29/2023 2:57 PM EDT [facility] Alkaline Phosphatase 63 35 - 129 U/L 09/29/2023 2:57 PM EDT [facility] AST 57(H) 10 - 40 U/L 09/29/2023 2:57 PM EDT [facility] ALT 56(H) 10 - 40 U/L 09/29/2023 2:57 PM EDT [facility] BUN 47(H) 7 - 23 mg/dL 09/29/2023 2:57 PM EDT [facility] eGFR 34(L) >=60 mL/min/1 .73m2 09/29/2023 2:57 PM EDT [facility] Comment:The estimated glomer ular [...] - 4.2 g/dL 09/29/2023 2:57 PM EDT [facility] A/G Ratio 1.1(L) 1.5 - 3.0 09/29/2023 2:57 PM EDT [facility] Blood Structure of peripheral vein / Unknown Venipuncture / Unknown 09/29/2023 1:42 PM EDT 09/29/2023 2:06 PM EDT us George Vaca MD PhD LAB BLOOD ORDERABLES Final Resu lt [facility] [address] [place] [address], * (ABNORMAL) Vitamin D, 25-Hydroxy, Total, Immunoassay (03/19/2017 1:10 PM EST) Calcidiol+ercalc idiol 26(L) 30 - 100 ng/mL 03/20/2017 10:40 AM EST [place] Comment: Vitamin D Status ? 25-OH Vitamin D: Deficiency: ?<20 ng/mL Insufficiency: ? 20 - 29 ng/mL Optimal: ? > or = 30 ng/mL For 25-OH Vitamin D testing on patients on D2-supplementation and patients for whom quantitation of D2 and D3 fractions is required, the QuestAssureD(TM) 25-OH VIT D, (D2,D3), LC/MS/MS is recommended: order code 23970 (patients >2yrs). For more information on this test, go to: http://education.[employer]/faq/ZYE204 (This link is being provided for informational/educational purposes only.) Blood specimen (specimen) Structure of peripheral vein / Unknown Venipuncture / Unknown 03/19/2017 1:10 PM EST 03/19/2017 1:21 PM EST [facility] 03/20/2017 10:40 AM EST [facility] Received Date: Bethany SANTOS LAB BLOOD ORDERABLES Edit ed Result - Final [facility] [address], [place] [address], [facility] [address], [place] [address], * (ABNORMAL) Hemoglobin A1c (03/19/2017 1:10 PM EST) Hemoglobin A1C 9.0(H) <5.7 % of total Hgb 03/19/2017 7:14 PM EST [facility] Comment: For someone without known diabetes, a [...] (MG/DL) 212 (calc) 03/19/2017 7:14 PM EST [facility] eAG (MMOL/L) 11.7 (calc) 03/19/2017 7:14 PM EST [facility] Blood specimen (specimen) Structure of peripheral vein / Unknown Venipuncture / Unknown 03/19/2017 1:10 PM EST 03/19/2017 1:21 PM EST Narrative [facility] - 03/19/2017 7:14 PM EST [facility] Received Date:[id number] Bethany SANTOS LAB BLOOD ORDERABLES Barbara l Result Performing Organization Address City/[facility]/ZIP Co de Phone Number [facility] [address], [place] [address], [facility] [address] [facility], [place] [address], * (ABNORMAL) Phosphorus (12/20/2013 4:07 AM EDT) Phosphorus Blood 2.0(L) 2.5 - 4.5 mg/dL [facility] 12/20/2013 4:07 AM EDT 12/20/2013 4:29 AM EDT Camron Strickland MD LAB BLOOD ORDERABLES Final Result Performing Organization Address City/[facility]/ZIP Co de Phone Number [facility] [address] [place] [address], [place] * CT Chest W Contrast (05/15/2010 [...] ??The bony thorax is intact. Procedure Note Russell Tee P - 11/22/2016 EXAMINATION: Helical CT of [...] adenopathy . COMMUNICATION: Per this written report. [facility] PROCEDURES Final Result from Last 3 Months or Most Recently Relevant to Health Maintenance Insurance Unit [address] [place] [address] MEDICARE [facility] Advance Directives Documents on File Type Date Recorded Patient [employer] Business Segment Leader Expl anation Advance Directive 10/19/2008 12:00 AM christopher ramírez Dec Making (Adv.Dir) Care Teams Fish Bailer Relationship Specialty Start Date End Date Donte Powell [address] [place] [address] [place] [address] PCP - General 10/10/16
--- OUTSIDE RECORDS SUMMARY | 2024-07-20 08:31 | XMS_ITS | Encounter Summary ---
Author Organization [facility] Address [address] [place] [address] Care Team Providers Care Mussel Farmer Name Role Phone Donte Powell MD Primary Care Provider [phone] Encounter Details Date Type Department Care Team (Late st Contact Info) Description 05/29/2024 Lab Requisition [facility] - Main Lab [address] [facility] [facility] [place] [address] Ross Saul MD [address] [place] [address] Unspecified atrial fibrillation (CMS/HCC V24, [...] Procedure Name Priority Date/Time Associated Diagnosis Comments NOROVIRUS PCR Routine 05/29/2024 1:45 PM EST Unspecified atrial fibrillation (CMS/HCC) Diarrhea, unspecified MISCELLANEOUS LAB TEST Routine 05/29/2024 1:45 PM EST Unspecified atrial fibrillation (CMS/HCC) Diarrhea, unspecified documented in this encounter Results * (ABNORMAL) Norovirus molecular study (05/29/2024 1:45 PM EST) Norovirus GI Negative Negative 06/03/2024 6:05 AM EDT [facility] Norovirus GII Positive(A) Negative 06/03/2024 6:05 AM EDT [facility] Stool Rectum structure / Unknown 05/29/2024 1:45 PM EST 05/29/2024 6:13 PM EST Narrative [facility] - 06/03/2024 6:05 AM EDT Test(s) 966527-Bfvmubzhi GI; [id number]-Wkuqekmca GII was developed and its performance characteristics determined by [facility]. It has not been cleared or approved by the Food and Drug Administration. Ross Saul MD LAB MICROBIOLOGY - [facility]AL [facility] Final Result Performing Organization Address City/[facility]/ZIP Co de Phone Number [facility] * - Miscellaneous Test (05/29/2024 1:45 PM EST) Miscellaneous Test COMMENT 2024 6:05 AM EDT [facility] Stool 05/29/2024 1:4 5 PM EST 05/29/2024 6:13 PM EST Narrative [facility] - 06/03/2024 6:05 AM EDT Performed At: [address] [id number] Cody Paul MD Ph:[phone] Performed At: 02 [facility] Mac [address] [place] [address], [address] [place], [place] [id number] Jordan Aquino MD Ph:[phone] Ross Saul MD LAB BLOOD ORDERABLES Final Resu lt Performing Organization Address City/[facility]/ZIP Co de Phone Number [facility] documented in this encounter Visit Diagnoses Diagnosis Unspecified atrial fibrillation (CMS/HCC V24, CMS/HCC V28) Diarrhea, unspecified documented in this encounter Additional Health Concerns Infection Onset Date Last Indicated Resolved Time Norovirus 05/29/2024 05/29/2024 documented as of this encounter Care Teams Mussel Farmer Relationship Specialty Start Date End Date Donte Powell MD [address] [place] [address] Dr Rl [place] PCP - General Internal Medicine 09/21/18 documented as of this encounter
--- OUTSIDE RECORDS SUMMARY | 2024-07-20 08:31 | XMS_ITS | Encounter Summary ---
Author Name [facility] [place] Organization [place] Address [address] [place] [address] Care Team Providers Care Pharmacy Analyst Name Role Phone ABAD RUSSELL Primary Care [...] PART B Nov 22, 2006 PART B [id number] TONY LOGAN PATIENT MEDICARE (WNR) MEDICARE (M) PART A Nov 22, 2006 PART A [id number] TONY LOGAN PATIENT MEDICARE (WNR) MEDICARE (M) PART A Nov 22, 2006 PART A [id number] TONY LOGAN PATIENT MEDICARE (WNR) MEDICARE (M) PART B Nov 22, 2006 PART B [id number] [phone] [id number] TONY LOGAN PATIENT FOR LIFE TFL* Apr 20, 2014 [id number] SUKHJINDER LOGAN JR PATIENT Selected Encounter This section includes the information on record at [place] for the Encounter. Date/Time Encounter Type Encounter Description Reason Provider Source Jan 19, 2024 08:30 AM OT EVAL LOW COMPLEX 30 MIN OCCUPATIONAL THERAPY ICD-10-CM Z74.09 Other reduced mobility BAI,STUART Jose Encounter Template Text not used by [place] Assessments - Encounter Diagnoses This section includes the primary and secondary diagnoses documented for the Encounter. Date/Time Primary/Secondary Diagnosis Diagnosis Name Provider Source Jan 19, 2024 03:18 PM PRIMARY Other reduced mobility BAI,STUART [place] [facility] [place] [facility] Plan of Treatment: Future Appointments (+ 6 months) and Future Tests (+/- 45 days) The Plan of Treatment section includes future care activities for the patient from all [place] [facility]. This section includes future appointments and future orders which are active, pending or scheduled. Future Appointments This section includes appointments that were scheduled to occur 6 months from the date of the Encounter, up to a maximum of 20 appointments. The data comes from all [place] treatment facilities. Appointment Date/Time Appointment Type Appointme nt Facility Name Feb 23, 2024 03:00 PM AMBULATORY - MEDICINE [place] [facility] [place] [facility] Mar 03, 2024 02:00 PM AMBULATORY - MEDICINE [place] [facility] [facility] Mar 03, 2024 02:30 PM AMBULATORY - MEDICINE [place] [facility] [place] [facility] Apr 07, 2024 08:00 AM AMBULATORY - MEDICINE [place] [facility] [place] [facility] Apr 27, 2024 03:00 PM AMBULATORY - MEDICINE [place] [facility] [place] [facility] May 05, 2024 11:30 AM AMBULATORY - MEDICINE [place] [facility] [place] [facility] May 17, 2024 02:00 PM AMBULATORY - MEDICINE [place] [facility] [place] [facility] Jul 08, 2024 09:00 AM AMBULATORY - MEDICINE [place] [facility] [place] [facility] Jul 13, 2024 11:30 AM AMBULATORY - MEDICINE [place] [facility] [facility] Lab Results: +/- 30 days of the encounter This section includes the Chemistry and Hematology Lab Results on record with [place] for the patient. Radiology Reports and Pathology Reports are provided separately, in subsequent sections. Lab Results This section contains the Chemistry/Hematology Results that were resulted 30 days before or 30 daysafter the date of the Encounter. Date/Time Source Result Type Result - Unit Interpretation Reference Range Specimen Type Comment Jan 29, 2024 09:49 AM [facility] CREATININE (eGFR 2020) SERUM Specimen Type: SERUM No comment entered. Ordering Provider: MINA RUSSELL Report Released Date/Time: Jan 27, 2024 07:33 AM Reporting Lab: [facility] [address] [facility] [address] Performing Lab: [facility] [address] [facility] [address] CREATININE, Serum 1.86 mg/dL H 0.50-1.40 eGFR(CKD-EPI 2020) 36 mL/min L >60 Jan 29, 2024 09:49 AM [facility] PT & INR (COUMADIN) PLASMA Specimen Type: PLAS [place] No comment entered. Ordering Provider: ABAD RUSSELL Report Released Date/Time: Jan 27, 2024 07:33 AM Reporting Lab: [facility] [address] [facility] [address] Performing Lab: [facility] [address] [facility] [address] INR 1.3 PROTIME 14.6 s H 10.0-13.1 Jan 29, 2024 09:49 AM [facility] LIVER FUNCTION SERUM Specimen Type: SERUM No comment entered. Ordering Provider: ABAD RUSSELL Report Released Date/Time: Jan 27, 2024 07:33 AM Reporting Lab: [facility] [address] [facility] [address] Performing Lab: [facility] [address] [facility] [address] PROTEIN,TOTAL 7.4 g/dL 6.0-8.3 ALBUMIN 3.2 g/dL L 3.5-5.0 ALKALINE PHOSPHATASE 66 U/L 40-150 AST 30 U/L 5-34 ALT 31 U/L BILIRUBIN, TOTAL 0.4 mg/dL 0.2-1.2 Jan 29, 2024 09:49 AM [facility] CBC BLOOD Specimen Type: BLOOD No comment entered. Ordering Provider: ABAD RUSSELL Report Released Date/Time: Jan 27, 2024 07:33 AM Reporting Lab: [facility] [address] [facility] [address] Performing Lab: [place] [facility]TR [facility] [address] [facility] [address] WBC 6.95 10*3/uL 4.50-11.00 RBC 3.19 10*6/uL [...] and tobacco- related health factors from the [place] facility where the Encounter took place. Current Smoking Status This section includes the most current smoking, or tobacco-related health factor, from the [place] facility where the Encounter took place. Date/Time Current Smoking Status Comment [facility] Jan 06, 2024 09:30 AM [place]-TOBACCO FORMER USER [facility] Tobacco Use History This section includes a history of the smoking, or tobacco-related health factors, that were collected on or before the date of the Encounter. The data comes from the [place] facility where the Encounter took place. Date/Time Smoking Status/Tobac co Use Comment Facility Jan 06, 2024 09:30 AM VA-TOBACCO QUIT 15 YRS OR MORE [place] [facility] [facility] Dec 24, 2022 10:30 AM VA-TOBACCO FORMER USER [place] [facility] [facility] Dec 24, 2022 10:30 AM VA-TOBACCO QUIT 15 YRS OR MORE [place] [facility] [place] [facility] Dec 24, 2021 10:00 AM VA-TOBACCO FORMER USER [place] [facility] [facility] Dec 24, 2021 10:00 AM VA-TOBACCO QUIT 5 TO < 15 YRS [place] [facility] [place] [facility] Dec 14, 2020 08:30 AM VA-TOBACCO FORMER USER [place] [facility] [facility] Dec 14, 2020 08:30 AM VA-TOBACCO QUIT 5 TO < 15 YRS [place] [facility] [place] [facility] Nov 15, 2019 11:00 AM VA-TOBACCO FORMER USER [place] [facility] [facility] Nov 15, 2019 11:00 AM VA-TOBACCO QUIT 5 TO < 15 YRS [place] [facility] [place] [facility] Oct 20, 2017 08:19 AM VA-TOBACCO FORMER USER [place] [facility] [place] [facility] Oct 20, 2017 08:19 AM VA-TOBACCO QUIT 5 TO < 15 YRS [place] [facility] [facility] Sep 04, 2017 11:09 AM QUIT TOBACCO USE > 7 YEARS AGO [place] [facility] [facility] Oct 16, 2016 09:08 AM QUIT TOBACCO USE > 7 YEARS AGO [facility] Feb 20, 2015 10:58 AM QUIT TOBACCO USE > 7 YEARS AGO quit 2009-cigarettes and cigars for 45 years [facility] Advance Directives: All historical and current Section Date Range: From patient's date of to the date document was created. This section includes ALL of a patient's completed or amended [place] Advance and Rescinded Directives. The entries below indicate that a directive exists for the patient, but an actual copy is not included with this document. The data comes from all [place] facilities. Date Advance Directives Provider Source Mar 23, 2014 ADVANCE DIRECTIVE ROSALINDA SHELBY [facility] Encounter Notes: All associated encounter notes [...] Diagnosis: Other Reduced Mobility(ICD-10-CM Z74.09) Provider: Abad Russell, PCP OT Treatment Precautions: [place] Patient identified by full name and date of OT Treatment Precautions: [place] Patient identified by full name and date of Subjective: Goal to improve access to home with stairglide Pain: R hip pain, interferes with going up and down stairs, descending worst. Objective: Seating and Positioning: [place] lives alone in a second floor condo that he owns. He is having more difficulty climbing the stairs, h/o CAD, pvd, and is seeking evaluation for possible stair lift. Focus 1 chart review Home Safety Screen 2 Live alone: [address] [facility] [address] [facility] Own condo, 2nd floor: livingspace is on [...] of risk for falls Quality of Gait: [place] ambulated to clinic without assistive device walks with slow tentative pace. Assessment: Mr. Logan is a an 83 yo male recent hospitalization for pacemaker, skilled services now complete. lives alone in a second story condo. [place] owns the condo, tried to live at [facility] although was unable to sell his condo, and had to move back. 2nd floor is difficult for to manage, risk for falls. Stairglide will improve safety for accessing his living space. Home Screening completed and recommend upgrade to tub bench to reduce unilateral stance needed to enter/exit tub/shower with additional grab bar inside of shower. Toilet has grab bars in place. [place] having difficulty with supine to standing from bed, and bed rail will provide a visual cue to sit a few minutes before completing sit to stand transfer, and have contact bar for steadying his transition. Because lives alone he would benefit from Guardian Alert, due to fall risk. Recommendation: [place] in agreement with plan, order will be [...] alone Discharge once all goals met /jus/ JOHN MERCHANT/Jose Miguel OCCUPATIONAL THERAPIST Signed: 01/19/2024 15:18 /jus/ Abad Russell DNP, LEATHER CRAFTSMAN-BC, CNL Primary Care Nurse Practitioner Cosigned: 01/19/2024 15:23 STUART BAI [place] [facility]
--- OUTSIDE RECORDS SUMMARY | 2024-07-20 08:31 | XMS_ITS | Encounter Summary ---
Author Organization [facility] Address [address] [place] [address] Care Team Providers Care Medical Manager Name Role Phone Donte Powell MD Primary Care Provider [phone] Encounter Details Date Type Department Care Team (Late st Contact Info) Description 06/10/2024 Lab Requisition [facility] - Main Lab [address] [place] [address] Ross Saul MD [address] [place] [address] Unspecified atrial fibrillation (CMS/HCC V24, [...] documented as of this encounter Care Teams Medical Manager Relationship Specialty Start Date End Date Donte Powell MD [address] [place] [address] Dr Rl [place] PCP - General Internal Medicine 09/21/18 documented as of this encounter
--- OUTSIDE RECORDS SUMMARY | 2024-07-20 08:31 | XMS_ITS | Encounter Summary ---
Author Organization [facility] Address [address] [place] [address] Care Team Providers Care Inletter Name Role Phone Donte Powell MD Primary Care Provider [phone] Encounter Details Date Type Department Care Team (Late st Contact Info) Description 06/05/2024 Lab Requisition [facility] - Main Lab [address] [facility] [email or web address] [address] Ross Saul MD [address] [place] [address] Unspecified atrial fibrillation (CMS/HCC V24, [...] Associated Diagnosis Comments COMPLETE BLOOD COUNT Routine 06/07/2024 5:10 AM EDT Unspecified atrial fibrillation (CMS/HCC) COMPREHENSIVE METABOLIC PANEL Routine 06/07/2024 5:10 AM EDT Unspecified atrial fibrillation (CMS/HCC) documented in this encounter Results * (ABNORMAL) Comprehensive metabolic panel (06/07/2024 5:10 AM EDT) Sodium 142 133 - 145 mmol/L LAB CHEMISTRY METHOD 06/07/2024 10:44 AM [facility] Potassium 4.1 3.5 - 5.5 mmol/L LAB CHEMISTRY METHOD 06/07/2024 10:44 AM [facility] Chloride 108 96 - 110 mmol/L LAB CHEMISTRY METHOD 06/07/2024 10:44 AM [facility] CO2 23 21 - 32 mmol/L LAB CHEMISTRY METHOD 06/07/2024 10:44 AM [facility] Anion Gap 11 3 - 11 LAB CHEMISTRY METHOD 06/07/2024 10:44 AM [facility] Glucose 115(H) 70 - 100 mg/dL LAB CHEMISTRY METHOD 06/07/2024 10:44 AM [facility] BUN 21 5 - 25 mg/dL LAB CHEMISTRY METHOD 06/07/2024 10:44 AM [facility] Creatinine 1.37(H) 0.70 - 1.30 mg/dL LAB CHEMISTRY METHOD 06/07/2024 10:44 AM [facility] eGFR 52(L) >=60 mL/min/1. 73m2 LAB CHEMISTRY METHOD 06/07/2024 10:44 AM [facility] Comment:Calculation based on the??Chronic Kidney Disease Epidemiology Collaboration (CKD-EPI) equation refit??without adjustment for race. BUN/Creatinine Ratio 15.3 LAB CHEMISTRY METHOD 06/07/2024 10:44 AM [facility] Calcium 8.3(L) 8.5 - 10.5 mg/dL LAB CHEMISTRY METHOD 06/07/2024 10:44 AM [facility] AST (SGOT) 92(H) 10 - 42 unit/L LAB CHEMISTRY METHOD 06/07/2024 10:44 AM [facility] ALT (SGPT) 64(H) 10 - 60 unit/L LAB CHEMISTRY METHOD 06/07/2024 10:44 AM [facility] Alkaline Phosphatase 139(H) 42 - 121 unit/L LAB CHEMISTRY METHOD 06/07/2024 10:44 AM EDT [facility] Total Protein 6.1 6.0 - 8.0 g/dL LAB CHEMISTRY METHOD 06/07/2024 10:44 AM EDT [facility] Albumin 2.4(L) 3.2 - 5.0 g/dL LAB CHEMISTRY METHOD 06/07/2024 10:44 AM EDT [facility] Total Bilirubin 0.5 0.0 - 1.4 mg/dL LAB CHEMISTRY METHOD 06/07/2024 10:44 AM EDT [facility] Blood Venous blood specimen / Unknown Venipuncture / Unknown 06/07/2024 5:10 AM EDT 06/07/2024 9:45 AM EDT us Ross Saul MD LAB BLOOD ORDERABLES Final Resu lt [facility] [address] [place] [address], [place] [phone] * (ABNORMAL) Complete blood count (06/07/2024 5:10 AM EDT) WBC 4.7(L) 4.8 - 10.8 K/mcL LAB HEMETOLOGY METHOD 06/07/2024 10:26 AM EDT [facility] RBC 2.80(L) 4.50 - 5.50 M/mcL LAB HEMETOLOGY METHOD 06/07/2024 10:26 AM EDT [facility] Hemoglobin 8.8(L) 13.5 - 17.5 g/dL LAB HEMETOLOGY METHOD 06/07/2024 10:26 AM T [facility] Hematocrit 28.8(L) 42.0 - 54.0 % LAB HEMETOLOGY METHOD 06/07/2024 10:26 AM EDT [facility] MCV 102.5(H) 79.0 - 98.0 FL LAB HEMETOLOGY METHOD 06/07/2024 10:26 AM EDT [facility] MCH 31.3 27.0 - 32.0 pcg LAB HEMETOLOGY METHOD 06/07/2024 10:26 AM EDT [facility] MCHC 30.6(L) 32.0 - 37.0 g/dL LAB HEMETOLOGY METHOD 06/07/2024 10:26 AM EDT [facility] RDW 17.2(H) 11.0 - 15.0 % LAB HEMETOLOGY METHOD 06/07/2024 10:26 AM EDT [facility] Platelets 220 130 - 400 K/mcL LAB HEMETOLOGY METHOD 06/07/2024 10:26 AM EDT [facility] MPV 11.5(H) 7.0 - 11.0 FL LAB HEMETOLOGY METHOD 06/07/2024 10:26 AM EDT [facility] NRBC 0.0 <1.0 % LAB HEMETOLOGY METHOD 06/07/2024 10:26 AM EDT [facility] NRBC Absolute 0.00 <0.10 K/mcL LAB HEMETOLOGY METHOD 06/07/2024 10:26 AM EDT [facility] Blood Venous blood specimen / Unknown Venipuncture / Unknown 06/07/2024 5:10 AM EDT 06/07/2024 9:43 AM EDT us Ross Saul MD LAB BLOOD ORDERABLES Final Resu lt [facility] [address] [place] [address], documented in this encounter Visit Diagnoses Diagnosis Unspecified atrial fibrillation (CMS/HCC V24, CMS/HCC V28) documented in this encounter Additional Health Concerns Infection Onset Date Last Indicated Resolved Time Norovirus 05/29/2024 05/29/2024 documented as of this encounter Care Teams Inletter Relationship Specialty Start Date End Date Donte Powell MD [address] [place] [address] Dr Rl [place] PCP - General Internal Medicine 09/21/18 documented as of this encounter
--- OUTSIDE RECORDS SUMMARY | 2024-07-20 08:31 | XMS_ITS ---
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 Past Treatment and Therapy Plans Therapy Plan Orders Plan Name Start Date Discontinue Date Treatment Medications Discontinue Reason Plan Provider BMT - S/P HSCT VACCINATIONS - Shingrix only (No charge) 04/23/2019 07/29/2019 varicella-zoste r, recombinant (SHINGRIX) Therapy Complete George Vaca MD PhD
--- OUTSIDE RECORDS SUMMARY | 2024-07-20 08:31 | XMS_ITS | Encounter Summary ---
Author Name [facility] [place] Address [address] [place] [address] Care Team Providers Care Blast Furnace Operator Name Role Phone AJAY APODACA Primary [...] PART A Nov 22, 2006 PART A [id number] [phone] TONY LOGAN PATIENT MEDICARE (WNR) MEDICARE (M) PART B Nov 22, 2006 PART B [id number] TONY LOGAN PATIENT MEDICARE (WNR) MEDICARE (M) PART B Nov 22, 2006 PART B [id number] [phone] [id number] TONY LOGAN PATIENT MEDICARE (WNR) MEDICARE (M) PART A Nov 22, 2006 PART A [id number] TONY LOGAN PATIENT FOR LIFE TFL* Apr 20, 2014 [id number] SUKHJINDER LOGAN JR PATIENT Selected Encounter This section includes the information on record at [place] for the Encounter. Date/Time Encounter Type Encounter Description Reason Provider Source May 05, 2024 11:58 AM CONT GLUC MNTR ANALYSIS I[facility] ENDOCRINOLOGY ICD-10-CM E11.8 Type 2 diabetes mellitus with unspecified complications MIAH BUTTS Jose Encounter Template Text not used by [place] Assessments - Encounter Diagnoses This section includes the primary and secondary diagnoses documented for the Encounter. Date/Time Primary/Secondary Diagnosis Diagnosis Name Provider Source May 05, 2024 12:04 PM PRIMARY Type 2 diabetes mellitus with unspecified complications MIAH BUTTS [facility] Plan of Treatment: Future Appointments (+ 6 months) and Future Tests (+/- 45 days) The Plan of Treatment section includes future care activities for the patient from all [place] [facility]. This section includes future appointments [...] 17, 2024 02:00 PM AMBULATORY - MEDICINE [place] [facility] [facility] Jul 08, 2024 09:00 AM AMBULATORY - MEDICINE [facility] [place] [facility] Jul 13, 2024 11:30 AM AMBULATORY - MEDICINE [place] [facility] July 26, 2024 03:00 PM AMBULATORY - MEDICINE [place] [facility] Aug 25, 2024 01:30 PM AMBULATORY - MEDICINE [place] C [place] [facility] Oct 20, 2024 03:00 PM AMBULATORY - MEDICINE [facility] [place] [facility] Social History: Smoking Status [...] Robby albrecht Jan 06, 2024 09:30 AM [place]-TOBACCO QUIT 15 YRS OR [facility] Tobacco Use History This section includes a history of the smoking, or tobacco-related health factors, that were collected on or before the date of the Encounter. The data comes from the [place] facility where the Encounter took place. Date/Time Smoking Status/Tobac co Use Comment Facility Jan 06, 2024 09:30 AM VA-TOBACCO QUIT 15 YRS OR MORE [place] [facility] [place] [facility] Dec 24, 2022 10:30 AM VA-TOBACCO FORMER USER [facility] [place] [facility] Dec 24, 2022 10:30 AM VA-TOBACCO QUIT 15 YRS OR MORE [facility] [place] [facility] Dec 24, 2021 10:00 AM VA-TOBACCO FORMER USER [facility] [place] [facility] Dec 24, 2021 10:00 AM VA-TOBACCO QUIT 5 TO < 15 YRS [place] [facility] [place] [facility] Dec 14, 2020 08:30 AM VA-TOBACCO FORMER USER [place] [facility] [facility] Dec 14, 2020 08:30 AM VA-TOBACCO QUIT 5 TO < 15 YRS [place] [facility] [place] [facility] Nov 15, 2019 11:00 AM VA-TOBACCO FORMER USER [place] [facility] [facility] Nov 15, 2019 11:00 AM VA-TOBACCO QUIT 5 TO < 15 YRS [place] [facility] [place] [facility] Oct 20, 2017 08:19 AM VA-TOBACCO FORMER USER [facility] [place] [facility] Oct 20, 2017 08:19 AM VA-TOBACCO QUIT 5 TO < 15 YRS [place] [facility] [place] [facility] Sep 04, 2017 11:09 AM QUIT TOBACCO USE > 7 YEARS AGO [place] [facility] [place] [facility] Oct 16, 2016 09:08 AM QUIT TOBACCO USE > 7 YEARS AGO [place] [facility] [place] [facility] Feb 20, 2015 10:58 AM QUIT TOBACCO USE > 7 YEARS AGO quit 2009-cigarettes and cigars for 45 years [place] [facility] [place] [facility] Advance Directives: All historical [...] Mar 23, 2014 ADVANCE DIRECTIVE ROSALINDA SHELBY [place] [facility] Encounter Notes: All associated encounter notes This section contains the clinical notes associated to the Encounter. Date/Time Encounter Note(s) Provider Source May 05, 2024 11:58 AM PHYSICIAN NOTE: LOCAL TITLE: MD NOTE STANDARD TITLE: PHYSICIAN NOTE DATE OF NOTE: MAY 05, 2024@11:58 ENTRY DATE: MAY 05, 2024@11:58:14 AUTHOR: MIAH BUTTS COSIGNER: URGENCY: STATUS: COMPLETED Dx: DM 2 Pt Name: Tony Logan Pt : 1940 MR# [id number] Indication for device placement Date placed:Apr 22 2024 Date removed (date to which the CPT code is linked): May 05 2024 Name of device placed: Freestyle josias 3 glucose sensor date of printout of data: Date of interpretation: May 05 2024 Analysis of data (72 hours or more of monitoring required): Capture 97% Average 209 GMI 8.3% %CV 27.8% Very high 20% High 47% In range 33% Low/very low 0% MN 196, 4AM 180, 8AM 221, noon 251, 4Pm 199, 8PM 214 Variability moderate Interpretation of data He would benefit from consistent CHO, also from an increase in bfast aspart and an increase in basal insulin. /jus/ MIAH BUTTS MD STAFF PHYSICIAN Signed: 05/05/2024 12:04 MIAH BUTTS CNTL [facility]
--- OUTSIDE RECORDS SUMMARY | 2024-07-20 08:32 | XMS_ITS ---
Author Name [facility] [place] Organization [facility] [place] Address [address] [place] [address] Care Team Providers Care Litigation Attorney Associate Name Role Phone AJAY APODACA Primary Care [...] PART A Nov 22, 2006 PART A [id number] TONY CASTELLON PATIENT MEDICARE (WNR) MEDICARE (M) PART B Nov 22, 2006 PART B [id number] TONY CASTELLON PATIENT MEDICARE (WNR) MEDICARE (M) PART A Nov 22, 2006 PART A [id number] TONY CASTELLON PATIENT MEDICARE (WNR) MEDICARE (M) PART B Nov 22, 2006 PART B [id number] TONY CASTELLON PATIENT FOR LIFE TFL* Apr 20, 2014 [id number] SUKHJINDER CASTELLON JR PATIENT Selected Encounter This section includes the information on record at [place] for the Encounter. Date/Time Encounter Type Encounter Description Reason Provider Source Mar 03, 2024 02:00 PM COMPRE OPH EXAM EST PT 1/> OPTOMETRY ICD-10-CM E11.9 Type 2 diabetes mellitus without complications KARSTENJUAN DIEGO Evy Jose Encounter Template Text not used by [place] Assessments - Encounter Diagnoses This section includes the primary and secondary diagnoses documented for the Encounter. 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 SHELLEY,JUAN DIEGO [place] [facility] [place] [facility] Mar 03, 2024 03:56 PM SECONDARY Dry eye syndrome of bilateral lacrimal glands SHELLEY,JUAN DIEGO J [place] [facility] [place] [facility] Mar 03, 2024 03:56 PM SECONDARY Mechanical ectropion of right lower eyelid SHELLEY,JUAN DIEGO [place] [facility] [facility] [place] [facility] Mar 03, 2024 03:56 PM SECONDARY Open angle with borderline findings, low risk, bilateral SHELLEY,JUAN DIEGO [place] [facility] [facility] [place] [facility] Mar 03, 2024 03:56 PM SECONDARY Presbyopia SHELLEY,JUAN DIEGO [place] [facility] [place] [facility] Mar 03, 2024 03:56 PM SECONDARY Presence of intraocular lens SHELLEY,JUAN DIEGO [place] [facility] Plan of Treatment: Future Appointments (+ 6 months) and Future Tests (+/- 45 days) The Plan of Treatment section includes future care activities for the patient from all [place] [facility]. This section includes future appointments [...] - MEDICINE [place] C [facility] [place] [facility] Apr 27, 2024 03:00 PM AMBULATORY - MEDICINE [place] [facility] [place] [facility] May 05, 2024 11:30 AM AMBULATORY - MEDICINE [place] [facility] [place] [facility] May 17, 2024 02:00 PM AMBULATORY - MEDICINE [place] [facility] [place] [facility] Jul 08, 2024 09:00 AM AMBULATORY - MEDICINE [place] [facility] [place] [facility] Jul 13, 2024 11:30 AM AMBULATORY - MEDICINE [place] [facility] [place] [facility] July 26, 2024 03:00 PM AMBULATORY - MEDICINE [place] [facility] [place] [facility] Aug 25, 2024 01:30 PM AMBULATORY - [facility]ICINE [place] [facility] Lab Results: +/- 30 days of [...] Type Comment Mar 29, 2024 08:38 AM [facility] HEMOGLOBIN A1C PANEL BLOOD Specimen Type: BLOOD [...] Feb 24, 2024 02:53 PM Reporting Lab: [facility] [address] [facility] [address] Performing Lab: [address] [address] HEMOGLOBIN A1C 8.1 H 4.0-5.6 Mar 29, 2024 08:38 AM [facility] MICROALBUMIN CREATININE RATIO PANEL URINE Spe cimen Type: URINE No comment entered. Ordering Provider: MIAH BUTTS Report Released Date/Time: Feb 24, 2024 02:53 PM Reporting Lab: [facility] [address] [facility] [address] Performing Lab: [address] [address] MICROALBUMIN/CREATININE RATIO 8.8 mg/g 0 -29.9 MICROALBUMIN,QUANTITATIVE 0.5 mg/dL RR U NAVAIL CREATININE URINE 57.04 mg/dL Mar 29, 2024 08:38 AM [facility] LIPID PANEL FASTING SERUM Specimen Type: SERU M No comment entered. Ordering Provider: MIAH BUTTS Report Released Date/Time: Feb 24, 2024 02:53 PM Reporting Lab: [facility] [address] [facility] [address] Performing Lab: [address] [address] CHOLESTEROL 99 mg/dL TRIGLYCERIDE 78 mg/dL 0-150 LDL calculated 47 mg/dL 0-129 CHOL/HDL 2.8 HDL CHOLESTEROL 36 mg/dL L 40-60 Mar 29, 2024 08:38 AM [facility] BASIC METABOLIC PANEL (non-fasting) SERUM Spe cimen Type: SERUM No comment entered. Ordering Provider: MIAH BUTTS Report Released Date/Time: Feb 24, 2024 02:53 PM Reporting Lab: [address] [address] Performing Lab: [address] [address] UREA NITROGEN 52 mg/dL H 7-25 GLUCOSE [...] AM VA-TOBACCO QUIT 15 YRS OR MORE [facility] Tobacco Use History This section includes a history of the smoking, or tobacco-related health factors, that were collected on or before the date of the Encounter. The data comes from the [place] facility where the Encounter took place. Date/Time Smoking Status/Tobac co Use Comment Facility Jan 06, 2024 09:30 AM VA-TOBACCO QUIT 15 YRS OR MORE [place] [facility] [place] [facility] Dec 24, 2022 10:30 AM VA-TOBACCO FORMER USER [place] [facility] [place] [facility] Dec 24, 2022 10:30 AM VA-TOBACCO QUIT 15 YRS OR MORE [place] [facility] [place] [facility] Dec 24, 2021 10:00 AM VA-TOBACCO FORMER USER [place] [facility] [place] [facility] Dec 24, 2021 10:00 AM VA-TOBACCO QUIT 5 TO < 15 YRS [place] [facility] [place] [facility] Dec 14, 2020 08:30 AM VA-TOBACCO FORMER USER [place] [facility] [place] [facility] Dec 14, 2020 08:30 AM VA-TOBACCO QUIT 5 TO < 15 YRS [place] [facility] [place] [facility] Nov 15, 2019 11:00 AM VA-TOBACCO FORMER USER [place] [facility] [place] [facility] Nov 15, 2019 11:00 AM VA-TOBACCO QUIT 5 TO < 15 YRS [place] [facility] [place] [facility] Oct 20, 2017 08:19 AM VA-TOBACCO FORMER USER [place] [facility] [place] [facility] Oct 20, 2017 08:19 AM VA-TOBACCO QUIT 5 TO < 15 YRS [place] [facility] [place] [facility] Sep 04, 2017 11:09 AM QUIT TOBACCO USE > 7 YEARS AGO [place] [facility] [place] [facility] Oct 16, 2016 09:08 AM QUIT TOBACCO USE > 7 YEARS AGO [place] [facility] [place] [facility] Feb 20, 2015 10:58 AM QUIT TOBACCO USE > 7 YEARS AGO quit 2009-cigarettes and cigars for 45 years [place] [facility] [place] [facility] Advance Directives: All historical and current [...] ADVANCE DIRECTIVE ROSALINDA SHELBY [place] [facility] [place] [facility] Encounter Notes: All associated encounter notes This section contains the clinical notes associated to the Encounter. Date/Time Encounter Note(s) Provider Source Mar 03, 2024 07:56 AM OPTOMETRY NOTE: LOCAL TITLE: OPTOMETRY NOTE STANDARD TITLE: OPTOMETRY NOTE DATE OF NOTE: MAR 03, 2024@07:56 ENTRY DATE: MAR 03, 2024@07:56:35 AUTHOR: LIGIA GODFREY EXP COSIGNER: JUAN DIEGO SHELLEY URGENCY: STATUS: COMPLETED OPTOMETRY NOTE Has ADDENDA Active problems - Computerized Problem List is the source for the followin. Exposure to potentially hazardous substance ([facility] [id number]) 2. Cardiac pacemaker in situ 3. Chronic [...] diagnosed was made by non-VA provider. Next sales force developer appointment is 05/18. Diabetic x34 years Last A1C: 8.1 OHx: 1. 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 Pseudophakia OU 4. 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 ed. on findings - Monitor 4. 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 Next schedule appointment is 04/2024 - Monitor [...] (local) and dispensed from another VA or [facility] facility (remote) as well as [...] Remote Allergy/ADR Data available for this patient [place] [facility] [place] [facility] No Known Allergies Med. Reconciliation (Tool #1) INCLUDED IN THIS LIST: Alphabetical list of active outpatient prescriptions dispensed from this [place] (local) and dispensed from another [place] or [facility] facility (remote) as well as inpatient orders (local pending and active), local clinic medications, locally documented non-VA medications, and local prescriptions that have or been discontinued in the past 90 days. Non-VA Meds Last Documented On: August 13, 2023 NOTE The display of VA prescriptions dispensed from another [place] or [facility] facility (remote) is limited to active outpatient prescription entries matched to National Drug File at the originating site and may not include some items such as investigational drugs, compounds, etc. NOT INCLUDED IN THIS LIST: Medications self-entered by the patient into personal health records (i.e. [facility]) are NOT included in this list. Non-VA medications documented outside this [place], remote inpatient orders (regardless of status) and [...] DAILY FOR PREVENTION OF BLOOD CLOTS Rx# [id number] Last Released: 01/06/23 Qty/Days Supply: Rx Expiration Date: 12/25/23 Refills Remainin Indication: FOR PREVENTION OF BLOOD CLOTS OUTPT APIXABAN 5MG TAB (Status = Active) TAKE ONE-HALF TABLET BY MOUTH TWICE DAILY FOR PREVENTION OF BLOOD CLOTS Rx# [id number] Last Released: 02/17/24 Qty/Days Supply: Rx Expiration Date: 02/10/25 Refills Remainin Indication: FOR PREVENTION OF BLOOD CLOTS Non-VA ATORVASTATIN CALCIUM 20MG TAB TAKE ONE-HALF TABLET BY MOUTH OUTPT CARBOXYMETHYLCELLULOSE NA 0.5% OPH SOLN (Status = ) INSTILL 1 DROP INTO EACH EYE TWICE DAILY Rx# [id number] Last Released: 04/04/23 Qty/Days Supply: Rx Expiration Date: 01/10/24 Refills Remainin OUTPT CARBOXYMETHYLCELLULOSE NA 0.5% OPH SOLN (Status = Pending) INSTILL ONE DROP INTO EACH EYE FOUR TIMES A DAY Login Date: 03/03/24 Qty/Days Supply: Refills Ordered: 3 Non-VA FENOFIBRATE 54MG [...] FOR LOW BLOOD SUGAR BELOW 70 Rx# [id number] Last Released: 10/24/23 Qty/Days Supply: Rx Expiration Date: 08/20/24 Refills Remainin OUTPT INSULIN,ASPART(EQV-NOVLG)100UN/ ML FLXPEN (Status = Discontinued) INJECT DIRECTED SUBCUTANEOUSLY THREE TIMES A DAY 8 UNITS FOR EGGS, 12 UNITS FOR CEREAL AM, 5 UNITS NOON, 9 UNITS DINNER Rx# [id number] Last Released: 11/17/23 Qty/Days Supply: Rx Expiration Date: 11/13/24 Refills Remainin Indication: FOR DIABETES OUTPT INSULIN,ASPART(EQV-NOVLG)100UN/ ML FLXPEN (Status = Discontinued) INJECT DIRECTED SUBCUTANEOUSLY THREE TIMES A DAY 9 UNITS FOR EGGS, 15 UNITS FOR CEREAL BREAKFAST, 7 UNITS NOON, 10 UNITS DINNER Rx# [id number] Last Released: Qt Supply: Rx Expiration Date: 02/24/25 Refills Remainin Indication: FOR DIABETES OUTPT INSULIN,ASPART(EQV-NOVLG)100UN/ ML FLXPEN (Status = Active) INJECT DIRECTED SUBCUTANEOUSLY THREE TIMES A DAY 10-14 UNITS BREAKFAST BASED ON MEAL, 7 UNITS NOON, 10 UNITS DINNER. Rx# [id number] Last Released: 02/26/24 Qty/Days Supply: Rx Expiration Date: 02/25/25 Refills Remainin Indication: FOR DIABETES OUTPT INSULIN,GLARGINE-YFGN 100UNIT/ML PEN 3ML (Status = Discontinued) INJECT 10 UNITS SUBCUTANEOUSLY TWICE DAILY Rx# [id number] Last Released: Supply: Rx Expiration Date: 08/13/24 Refills Remainin Indication: FOR DIABETES OUTPT INSULIN,GLARGINE-YFGN 100UNIT/ML PEN 3ML (Status = Active) INJECT 13 UNITS SUBCUTANEOUSLY TWICE DAILY Rx# [id number] Last Released: 03/01/24 Qty/Days Supply: Rx Expiration Date: 02/25/25 Refills Remainin Indication: FOR DIABETES OUTPT LIDOCAINE 5% OINT (Status = ) APPLY LIBERAL AMOUNT TOPICALLY TWICE DAILY NEEDED FOR NEUROPATHY PAIN Rx# [id number] Last Released: 08/23/23 Qty/Days Supply: Rx Expiration [...] DAY TYPE 2 DIABETES ON INSULIN Rx# [id number] Last Released: 01/20/24 Qty/Days Supply: 270/ Rx Expiration Date: 01/13/25 Refills Remainin Indication: TYPE 2 DIABETES OUTPT ACCU-CHEK GUIDE ME (GLUCOSE) METER (Status = ) USE METER TO TEST BLOOD SUGARS THREE TIMES A DAY TYPE 2 DIABETES Rx# [id number] Last Released: Qty/Days Supply: 04/22 Rx Expiration Date: 02/12/24 Refills Remainin Indication: TYPE 2 DIABETES OUTPT GLUCOSE SENSOR FREESTYLE LINK 2 (Status = On Hold) USE 1 SENSOR DIRECTED EVERY 14 DAYS Rx# [id number] Last Released: 11/20/23 Qty/Days Supply: 05/21 Rx Expiration Date: 11/13/24 Refills Remainin OUTPT GLUCOSE SENSOR FREESTYLE LINK 3 (Status = Discontinued) USE 1 SENSOR DIRECTED EVERY 14 DAYS Rx# [id number] Last Released: 01/07/24 Qty/Days Supply: 05/21 Rx Expiration Date: 11/14/24 Refills Remainin OUTPT GLUCOSE SENSOR FREESTYLE LINK 3 (Status = Discontinued) USE 1 SENSOR DIRECTED EVERY 14 DAYS Rx# [id number] Last Released: Qt/Days Supply: 05/21 Rx Expiration Date: 02/23/25 Refills Remainin OUTPT GLUCOSE SENSOR FREESTYLE LINK 3 (Status = Active) USE 1 SENSOR DIRECTED EVERY 14 DAYS Rx# [id number] Last Released: Qty/Days Supply: 05/21 Rx Expiration Date: 02/24/25 Refills Remainin OUTPT LANCET,SOFTCLIX (Status = Active) USE 1 LANCET DIRECTED THREE TIMES A DAY TO TEST BLOOD SUGAR Rx# [id number] Last Released: 01/20/24 Qty/Days Supply: 300/ Rx Expiration Date: 01/13/25 Refills Remainin Indication: TYPE 2 DIABETES PHARMACY TERMS AND POSSIBLE PATIENT ACTIONS INPT = [place] inpatient order IV = [place] intravenous medication OUTPT = [place] outpatient prescription PHARMACY POSSIBLE PATIENT TERMS EXPLANATION ACTIONS -------- - ACTIVE A prescription that can be If you have refills, filled at the local VA pharmacy. you may request a refill of this prescription from your VA pharmacy. CLINIC A medication you received during If you have questions a visit to a VA clinic or about this medication emergency department. contact your VA healthcare team. DISCONTINUED A prescription your provider has Contact your VA stopped. It is no longer healthcare team [...] the VA. Or, it may be an hsdr-dqi-xavxifs (OTC), herbal, dietary supplements or sample medication. [...] Medication Reconciliation List Offered and Declined by () Medication Reconciliation List Printed for at Exam () Optometry HT Please Print and Mail Copy of Medication Reconciliation List () AMSA Please Print and Mail Copy of Medication Reconciliation List /jus/ LIGIA GODFREY OPTOMETRY STUDENT Signed: 03/03/2024 16:01 /jus/ JUAN DIEGO SHELLEY OD BELL CLEANER Cosigned: 03/03/2024 16:02 03/03/2024 ADDENDUM STATUS: COMPLETED The optometry consumer insights intern participated in this exam, I saw this White in conjunction with the optometry student. The [...] assessment and plan. Ed re today's findings. repeated back the plan and education. All reminders completed by attending and documented in student note. /tyree SHELLEY OD BELL CLEANER Signed: 03/03/2024 16:02 LIGIA GODFREY [place] [facility]
--- OUTSIDE RECORDS SUMMARY | 2024-07-20 08:32 | XMS_ITS | Encounter Summary ---
Author Name Department of [place] Organization [place] Address [address] [place] [address] Care Team Providers Care Bottle Inspector Name Role Phone AJAY APODACA Primary [...] PART A Nov 22, 2006 PART A [id number] TONY CASTELLON PATIENT MEDICARE (WNR) MEDICARE (M) PART B Nov 22, 2006 PART B [id number] TONY CASTELLON PATIENT MEDICARE (WNR) MEDICARE (M) PART B Nov 22, 2006 PART B [id number] TONY CASTELLON PATIENT MEDICARE (WNR) MEDICARE (M) PART A Nov 22, 2006 PART A [id number] TONY CASTELLON PATIENT FOR LIFE TFL* Apr 20, 2014 [id number] SUKHJINDER CASTELLON JR PATIENT Selected Encounter [...] and observation for oth reasons [place] [facility] [facility] Plan of Treatment: Future Appointments (+ 6 months) and Future Tests (+/- 45 days) The Plan of Treatment section includes future care activities for the patient [facility] [place] [facility] This section includes future appointments and [...] 13, 2023 09:30 AM AMBULATORY - MEDICINE [place] [facility] [place] [facility] Dec 31, 2023 02:00 PM AMBULATORY - MEDICINE [place] C [facility] [place] [facility] Jan 06, 2024 09:30 AM AMBULATORY - MEDICINE [place] C [facility] [place] [facility] Jan 13, 2024 03:00 PM AMBULATORY - MEDICINE [place] C [facility] [place] [facility] Jan 19, 2024 08:30 AM AMBULATORY - REHAB MEDICIN E [place] [facility] [place] [facility] Feb 23, 2024 03:00 PM AMBULATORY - MEDICINE [place] C [facility] [place] [facility] Mar 03, 2024 02:00 PM AMBULATORY - MEDICINE [place] C [facility] [place] [facility] Mar 03, 2024 02:30 PM AMBULATORY - MEDICINE [place] C [facility] [place] [facility] Apr 07, 2024 08:00 AM AMBULATORY - MEDICINE [place] C [facility] [place] [facility] Apr 27, 2024 03:00 PM AMBULATORY - MEDICINE [place] C [facility] [place] [facility] May 05, 2024 11:30 AM AMBULATORY - MEDICINE OR [facility] Active, Pending, and Scheduled Orders This section includes a listing of several types of active, pending, and scheduled orders, including clinic medications orders, diagnostic test orders, procedure orders and consult orders; where the start date of the order is 45 days before the date of the Encounter or 45 days after the date of theEncounter. The data comes from all [place] treatment facilities. Test Date/Time Test Type Test Details Facility Name Nov 13, 2023 12:00 AM Laboratory - Chemi stry Order BASIC METABOLIC PANEL (non-fasting) BLOOD (SST-SERUM) SP [facility] Lab Results: +/- 30 days of [...] Unit Interpretation Reference Range Specimen Type Comment Nov 11, 2023 09:05 AM [facility] BASIC METABOLIC PANEL (non-fasting) SERUM Spe cimen Type: SERUM No comment entered. Ordering Provider: MIAH BUTTS Report Released Date/Time: Nov 05, 2023 04:26 PM Reporting Lab: [address] [address] Performing Lab: [address] [address] UREA NITROGEN 39 mg/dL H 7-25 GLUCOSE 412 mg/dL H 65-100 SODIUM 132 mmol/L L 135-145 POTASSIUM 4.6 mmol/L 3.5-5.0 CHLORIDE 101 mmol/L 100-110 CO2 19 meq/L L 20-30 CREATININE, Serum 1.99 mg/dL H 0.50-1.40 eGFR(CKD-EPI 2020) 33 mL/min L >60 Nov 05, 2023 07:31 AM [facility] LIPID PANEL, NON FASTING SERUM Specimen Type: SERUM No comment entered. Ordering Provider: MIAH BUTTS Report Released Date/Time: Oct 23, 2023 03:32 PM Reporting Lab: [address] [address] Performing Lab: [facility] [address] [facility] [address] CHOLESTEROL 140 mg/dL TRIGLYCERIDE 94 mg/dL 0-150 LDL calculated 72 mg/dL 0-129 CHOL/HDL 2.9 HDL CHOLESTEROL 49 mg/dL 40-60 Nov 05, 2023 07:31 AM [facility] HEMOGLOBIN A1C PANEL BLOOD Specimen Type: [...] Oct 23, 2023 03:32 PM Reporting Lab: [address] [address] Performing Lab: [address] [address] HEMOGLOBIN A1C 8.1 H 4.0-5.6 Nov 05, 2023 07:31 AM [facility] MICROALBUMIN CREATININE RATIO PANEL URINE Spe cimen Type: URINE No comment entered. Ordering Provider: MIAH BUTTS Report Released Date/Time: Oct 23, 2023 03:32 PM Reporting Lab: [address] [address] Performing Lab: [address] [address] MICROALBUMIN/CREATININE RATIO canc mg/g 0-29.9 MICROALBUMIN,QUANTITATIVE < 0.5 mg/dL RR UNAVAIL CREATININE URINE 18.58 mg/dL Nov 05, 2023 07:31 AM [facility] BASIC METABOLIC PANEL (non-fasting) SERUM Spe cimen Type: SERUM No comment entered. Ordering Provider: MIAH BUTTS Report Released Date/Time: Oct 23, 2023 03:32 PM Reporting Lab: [address] [address] Performing Lab: [place] [facility] [place] [facility] [address] [facility] [address] UREA NITROGEN 49 mg/dL H 7-25 GLUCOSE [...] took place. Date/Time Current Smoking Status Comment [facility] Dec 24, 2022 10:30 AM VA-TOBACCO FORMER USER [place] [facility] [place] [facility] Tobacco Use History This section includes a history of the smoking, or tobacco-related health factors, that were collected on or before the date of the Encounter. The data comes from the [place] facility where the Encounter took place. Date/Time Smoking Status/Tobac co Use Comment Facility Dec 24, 2022 10:30 AM VA-TOBACCO QUIT 15 YRS OR MORE [place] [facility] [place] [facility] Dec 24, 2021 10:00 AM VA-TOBACCO FORMER USER [place] [facility] [place] [facility] Dec 24, 2021 10:00 AM VA-TOBACCO QUIT 5 TO < 15 YRS [place] [facility] [place] [facility] Dec 14, 2020 08:30 AM VA-TOBACCO FORMER USER [place] [facility] [place] [facility] Dec 14, 2020 08:30 AM VA-TOBACCO QUIT 5 TO < 15 YRS [place] [facility] [place] [facility] Nov 15, 2019 11:00 AM VA-TOBACCO FORMER USER [place] [facility] [place] [facility] Nov 15, 2019 11:00 AM VA-TOBACCO QUIT 5 TO < 15 YRS [place] [facility] [place] [facility] Oct 20, 2017 08:19 AM VA-TOBACCO FORMER USER [facility] [place] [facility] Oct 20, 2017 08:19 AM VA-TOBACCO QUIT 5 TO < 15 YRS [facility] Sep 04, 2017 11:09 AM QUIT TOBACCO USE > 7 YEARS AGO [facility] Oct 16, 2016 09:08 AM QUIT TOBACCO USE > 7 YEARS AGO [facility] Feb 20, 2015 10:58 AM QUIT TOBACCO USE > 7 YEARS AGO quit 2009-cigarettes and cigars for 45 years [facility] Advance Directives: All historical and current [...] Mar 23, 2014 ADVANCE DIRECTIVE ROSALINDA SHELBY [facility] Encounter Notes: All associated encounter notes This section contains the clinical notes associated to the Encounter. Date/Time Encounter Note(s) Provider Source Nov 04, 2023 10:27 AM PHARMACY MEDICATION MGT NOTE: LOCAL TITLE: PHARMACY ANTICOAGULATION NOTE STANDARD TITLE: PHARMACY MEDICATION MGT NOTE DATE OF NOTE: NOV 04, 2023@10:27 ENTRY DATE: NOV 04, 2023@10:27:45 AUTHOR: JAMES FITCH EXP COSIGNER: URGENCY: STATUS: [...] Patient education via phone/letter [ ] Schedule phone/gdwo-co-spth follow up [ ] Lab ordered [ ] Discontinue interacting medication [ ] Discontinue DOAC [ ] Change to alternative DOAC [ ] Change DOAC dose [ ] Notify PCP [ ] Consult cardiology/hematology [ ] Other: Time spent: 5 min /jus/ JAMES FITCH CPHT Clinical Licensed Investment Sales Assistant Signed: 11/04/2023 10:29 Receipt Acknowledged By: 11/04/2023 11:11 /tyree Anne PharmD, GURDEEP Clinical Clearance Center Manager 11/04/2023 ADDENDUM STATUS: COMPLETED Reviewed above note; agree w/ A/P as documented. /tyree Anne PharmD, GURDEEP Clinical Clearance Center Manager Signed: 11/04/2023 11:11 JAMES FITCH [facility]
--- OUTSIDE RECORDS SUMMARY | 2024-07-20 08:32 | XMS_ITS ---
Author Name [facility] [place] Organization [facility] [place] Address [address] [place] [id number] Care Team Providers Care Natural Science Manager Name Role Phone AJAY APODACA Primary [...] PART A Nov 22, 2006 PART A [id number] TONY CASTELLON PATIENT MEDICARE (WNR) MEDICARE (M) PART B Nov 22, 2006 PART B [id number] TONY CASTELLON PATIENT MEDICARE (WNR) MEDICARE (M) PART A Nov 22, 2006 PART A [id number] TONY CASTELLON PATIENT MEDICARE (WNR) MEDICARE (M) PART B Nov 22, 2006 PART B [id number] TONY CASTELLON PATIENT FOR LIFE TFL* Apr 20, 2014 [id number] [phone] SUKHJINDER CASTELLON JR PATIENT Selected Encounter This section includes the information on record at [place] for the Encounter. Date/Time Encounter Type Encounter Description Reason Provider Source Nov 13, 2023 09:30 AM OFFICE O/P EST HI 40 MIN ENDOCRINOLOGY ICD-10-CM E11.8 Type 2 diabetes mellitus with unspecified complications MIAH BUTTS Jose Encounter Template Text not used by [place] Assessments - Encounter Diagnoses This section includes the primary and secondary diagnoses documented for the Encounter. Date/Time Primary/Secondary Diagnosis Diagnosis Name Provider Source Nov 13, 2023 10:02 AM PRIMARY Type 2 diabetes mellitus with unspecified complications BUTTSMIAH [place] [facility] [place] [facility] Nov 13, 2023 10:02 AM SECONDARY Chronic kidney disease, unspecified HANAPEPEMIAH [facility] [place] [facility] Nov 13, 2023 10:02 AM SECONDARY Essential (primary) hypertension HANAPEPEMIAH [facility] [place] [facility] Nov 13, 2023 10:02 AM SECONDARY Mixed hyperlipidemia HANAPEPEMIAH [facility] [place] [facility] Nov 13, 2023 10:02 AM SECONDARY Type 2 diabetes mellitus w diabetic chronic kidney disease HANAPEPEMIAH [facility] [place] [facility] Nov 13, 2023 10:02 AM SECONDARY Type 2 diabetes mellitus with diabetic polyneuropathy HANAPEPEMIAH [facility] [place] [facility] Plan of Treatment: Future Appointments (+ 6 months) and Future Tests (+/- 45 days) The Plan of Treatment section includes future care activities for the patient [facility] [place] [facility] This section includes future appointments and future orders which are active, pending or scheduled. Future Appointments This section includes appointments that were scheduled to occur 6 months from the date of the Encounter, up to a maximum of 20 appointments. The data comes from all [place] treatment facilities. Appointment Date/Time Appointment Type Appointme nt Facility Name Dec 31, 2023 02:00 PM AMBULATORY - MEDICINE [place] [facility] [place] [facility] Jan 06, 2024 09:30 AM AMBULATORY - MEDICINE [place] [facility] [place] [facility] Jan 13, 2024 03:00 PM AMBULATORY - MEDICINE [place] [facility] [place] [facility] Jan 19, 2024 08:30 AM AMBULATORY - REHAB MEDICIN E [facility] [place] [facility] Feb 23, 2024 03:00 PM AM[facility] [place] [facility] Mar 03, 2024 02:00 PM [facility] Mar 03, 2024 02:30 PM [facility] Apr 07, 2024 08:00 AM [facility] Apr 27, 2024 03:00 PM [facility] May 05, 2024 11:30 AM [facility] Active, Pending, and Scheduled Orders This section includes a listing of several types of active, pending, and scheduled orders, including clinic medications orders, diagnostic test orders, procedure orders and consult orders; where the start date of the order is 45 days before the date of the Encounter or 45 days after the date of theEncounter. The data comes from all [place] treatment facilities. Test Date/Time Test Type Test Details Facility Name Nov 13, 2023 12:00 AM Laboratory - Chemi stry Order BASIC METABOLIC PANEL (non-fasting) BLOOD (SST-SERUM) [facility] Lab Results: +/- 30 days [...] Type Comment Nov 11, 2023 09:05 AM [facility] BASIC METABOLIC PANEL (non-fasting) SERUM Spe cimen Type: SERUM No comment entered. Ordering Provider: MIAH BUTTS Report Released Date/Time: Nov 05, 2023 04:26 PM Reporting Lab: [address] [address] Performing Lab: [address] [address] UREA NITROGEN 39 mg/dL H 7-25 GLUCOSE 412 mg/dL H 65-100 SODIUM 132 mmol/L L 135-145 POTASSIUM 4.6 mmol/L 3.5-5.0 CHLORIDE 101 mmol/L 100-110 CO2 19 meq/L L 20-30 CREATININE, Serum 1.99 mg/dL H 0.50-1.40 eGFR(CKD-EPI 2020) 33 mL/min L >60 Nov 05, 2023 07:31 AM [facility] LIPID PANEL, NON FASTING SERUM Specimen Type: SERUM No comment entered. Ordering Provider: MIAH BUTTS Report Released Date/Time: Oct 23, 2023 03:32 PM Reporting Lab: [facility] [address] [address] Performing Lab: [address] [address] CHOLESTEROL 140 mg/dL TRIGLYCERIDE 94 mg/dL 0-150 LDL calculated 72 mg/dL 0-129 CHOL/HDL 2.9 HDL CHOLESTEROL 49 mg/dL 40-60 Nov 05, 2023 07:31 AM [facility] HEMOGLOBIN A1C PANEL BLOOD Specimen Type: BLO [...] 23, 2023 03:32 PM Reporting Lab: [facility] [address] [address] Performing Lab: [facility] [address] [facility] [address] HEMOGLOBIN A1C 8.1 H 4.0-5.6 Nov 05, 2023 07:31 AM [facility] MICROALBUMIN CREATININE RATIO PANEL URINE Spe cimen Type: URINE No comment entered. Ordering Provider: MIAH BUTTS Report Released Date/Time: Oct 23, 2023 03:32 PM Reporting Lab: [facility] [address] [facility] [address] Performing Lab: [address] [address] MICROALBUMIN/CREATININE RATIO canc mg/g 0-29.9 MICROALBUMIN,QUANTITATIVE < 0.5 mg/dL RR UNAVAIL CREATININE URINE 18.58 mg/dL Nov 05, 2023 07:31 AM [facility] BASIC METABOLIC PANEL (non-fasting) SERUM Spe cimen Type: SERUM No comment entered. Ordering Provider: MIAH BUTTS Report Released Date/Time: Oct 23, 2023 03:32 PM Reporting Lab: [facility] [address] [facility] [address] Performing Lab: [facility] [address] [facility] [address] UREA NITROGEN 49 mg/dL H 7-25 GLUCOSE [...] 109/62 16 96 0 66 177 29 [facility] Social History: Smoking Status (Most current) and [...] 24, 2022 10:30 AM VA-TOBACCO FORMER USER [facility] Tobacco Use History This section includes a history of the smoking, or tobacco-related health factors, that were collected on or before the date of the Encounter. The data comes from the [place] facility where the Encounter took place. Date/Time Smoking Status/Tobac co Use Comment Facility Dec 24, 2022 10:30 AM VA-TOBACCO QUIT 15 YRS OR MORE [place] [facility] [place] [facility] Dec 24, 2021 10:00 AM VA-TOBACCO FORMER USER [facility] [place] [facility] Dec 24, 2021 10:00 AM VA-TOBACCO QUIT 5 TO < 15 YRS [facility] [place] [facility] Dec 14, 2020 08:30 AM VA-TOBACCO FORMER USER [facility] [place] [facility] Dec 14, 2020 08:30 AM VA-TOBACCO QUIT 5 TO < 15 YRS [facility] [place] [facility] Nov 15, 2019 11:00 AM VA-TOBACCO FORMER USER [facility] [place] [facility] Nov 15, 2019 11:00 AM VA-TOBACCO QUIT 5 TO < 15 YRS [facility] [place] [facility] Oct 20, 2017 08:19 AM VA-TOBACCO FORMER USER [facility] [place] [facility] Oct 20, 2017 08:19 AM VA-TOBACCO QUIT 5 TO < 15 YRS [facility] [place] [facility] Sep 04, 2017 11:09 AM QUIT TOBACCO USE > 7 YEARS AGO [facility] [place] [facility] Oct 16, 2016 09:08 AM QUIT TOBACCO USE > 7 YEARS AGO [facility] [place] [facility] Feb 20, 2015 10:58 AM QUIT TOBACCO USE > 7 YEARS AGO quit 2009-cigarettes and cigars for [address] [facility] Advance Directives: All historical and current Section Date Range: From patient's date of to the date document was created. This section includes ALL of a patient's completed or amended [place] Advance and Rescinded Directives. The entries below indicate that a directive exists for the patient, but an actual copy is not included with this document. The data comes from all [place] facilities. Date Advance Directives Provider Source Mar 23, 2014 ADVANCE DIRECTIVE ROSALINDA SHELBY [place] [facility] [place] [facility] Encounter Notes: All associated encounter notes This section contains the clinical notes associated to the Encounter. Date/Time Encounter Note(s) Provider Source Nov 13, 2023 10:36 AM ADDENDUM: LOCAL TITLE: Addendum STANDARD TITLE: ADDENDUM DATE OF NOTE: NOV 13, 2023@10:36:52 ENTRY DATE: NOV 13, 2023@10:36:53 AUTHOR: IVCTORINA TIRADO EXP COSIGNER: URGENCY: STATUS: COMPLETED Please reach to schedule apt as recommended by . Please schedule 60 mins FTF for Devon 3 teaching within next 2-4 weeks or further out if pt desires. /jus/ KEEGAN GREERD,[facility] CLINICAL PHARMACY PRACTITIONER Signed: 11/13/2023 10:39 Receipt Acknowledged By: 11/13/2023 10:54 /es/ ANGELES JUNIOR Clinical Particleboard Factory Worker --- Original Document --- 11/09/23 NOTE: CC: [...] the followin. Exposure to potentially hazardous substance ([facility] [id number]) 2. Cardiac pacemaker in situ 3. Chronic [...] kidney disease: He agrees to upgrade to Montnets 3 sensor, uses reader. Insulin Dose: glargine [...] Remote Allergy/ADR Data available for this patient [facility] [place] [facility] No Known Allergies Med Recon NoGlossary (Tool #1) INCLUDED IN THIS LIST: Alphabetical list of active outpatient prescriptions dispensed from this [place] (local) and dispensed from another VA or [...] the patient into personal health records (i.e. [employer]) are NOT included in this list. Non-VA medications documented outside this [place], remote inpatient orders (regardless of status) and [...] DAILY FOR PREVENTION OF BLOOD CLOTS Rx# [id number] Last Released: 01/06/23 Qty/Days Supply: Rx Expiration Date: 12/25/23 Refills Remainin Indication: FOR PREVENTION OF BLOOD CLOTS Non-VA ASPIRIN 81MG EC TAB TAKE ONE TABLET BY MOUTH EVERY DAY Non-VA ATORVASTATIN CALCIUM 20MG TAB TAKE ONE-HALF TABLET BY MOUTH OUTPT CARBOXYMETHYLCELLULOSE NA 0.5% OPH SOLN (Status = Active) INSTILL 1 DROP INTO EACH EYE TWICE DAILY Rx# [id number] Last Released: 04/04/23 Qty/Days Supply: Rx Expiration [...] FOR LOW BLOOD SUGAR BELOW 70 Rx# [id number] Last Released: 07/25/23 Qty/Days Supply: Rx Expiration Date: 01/10/24 Refills Remainin OUTPT GLUCOSE 4GM CHEW TAB (Status = Active) CHEW THREE TO FOUR TABLETS BY MOUTH NEEDED FOR LOW BLOOD SUGAR BELOW 70 Rx# [id number] Last Released: 10/24/23 Qty/Days Supply: Rx Expiration [...] 15 UNITS EVERY EVENING BEFORE SUPPER Rx# [id number] Last Released: 08/19/23 QtyDays Supply: Rx Expiration Date: 08/13/24 Refills Remainin Indication: FOR DIABETES OUTPT INSULIN,GLARGINE-YFGN 100UNIT/ML PEN 3ML (Status = On Hold) INJECT 10 UNITS SUBCUTANEOUSLY TWICE DAILY Rx# [id number] Last Released: Supply: Rx Expiration Date: 08/13/24 Refills Remainin Indication: FOR DIABETES OUTPT LIDOCAINE 5% OINT (Status = Active) APPLY LIBERAL AMOUNT TOPICALLY TWICE DAILY NEEDED FOR NEUROPATHY PAIN Rx# [id number] Last Released: 08/23/23 QtyDays Supply: Rx Expiration Date: 12/17/23 Refills Remainin Indication: NEUROPATHY PAPIN Non-VA METOPROLOL TARTRATE 25MG TAB TAKE ONE-HALF TABLET BY MOUTH TWICE DAILY Non-VA TERAZOSIN HCL 5MG CAP TAKE 1 CAPSULE BY MOUTH ONCE DAILY -------- SUPPLIES -------- OUTPT GLUCOSE SENSOR FREESTYLE DEVON 2 (Status = Active) USE 1 SENSOR DIRECTED EVERY 14 DAYS Rx# [id number] Last Released: 11/12/23 Qty/Days Supply: 05/21 Rx Expiration Date: 01/28/24 Refills Remainin OUTPT GLUCOSE SENSOR FREESTYLE DEVON 2 (Status = Pending) GLUCOSE SENSOR FREESTYLE DEVON 2 USE 1 SENSOR DIRECTED EVERY 14 DAYS Renewed from Rx# [id number] Qty/Days Supply: 05/21 Login Date: 11/13/23 Refills Ordered: 11 /jus/ MIAH BUTTS MD STAFF PHYSICIAN Signed: 11/13/2023 10:02 Receipt Acknowledged By: 11/13/2023 10:36 /jus/ VICTORINA TIRADO, PHARMD,BCPS CLINICAL PHARMACY PRACTITIONER VICTORINA TIRADO [facility] Nov 09, 2023 01:58 PM PHYSICIAN NOTE: [...] the followin. Exposure to potentially hazardous substance ([facility] [id number]) 2. Cardiac pacemaker in situ 3. Chronic [...] kidney disease: He agrees to upgrade to Montnets 3 sensor, uses reader. Insulin Dose: glargine [...] of active outpatient prescriptions dispensed from this [place] (local) and dispensed from another [place] or DoD facility (remote) as well as [...] Remote Allergy/ADR Data available for this patient [facility] [place] [facility] No Known Allergies Med [facility] Emir (Tool #1) INCLUDED IN THIS LIST: Alphabetical list of active outpatient prescriptions dispensed from this [place] (local) and dispensed from another VA or [...] the patient into personal health records (i.e. [employer]) are NOT included in this list. Non-VA medications documented outside this [place], remote inpatient orders (regardless of status) and [...] DAILY FOR PREVENTION OF BLOOD CLOTS Rx# [id number] Last Released: 01/06/23 Qty/Days Supply: Rx Expiration Date: 12/25/23 Refills Remainin Indication: FOR PREVENTION OF BLOOD CLOTS Non-VA ASPIRIN 81MG EC TAB TAKE ONE TABLET BY MOUTH EVERY DAY Non-VA ATORVASTATIN CALCIUM 20MG TAB TAKE ONE-HALF TABLET BY MOUTH OUTPT CARBOXYMETHYLCELLULOSE NA 0.5% OPH SOLN (Status = Active) INSTILL 1 DROP INTO EACH EYE TWICE DAILY Rx# [id number] Last Released: 04/04/23 Qty/Days Supply: Rx Expiration [...] FOR LOW BLOOD SUGAR BELOW 70 Rx# [id number] Last Released: 07/25/23 Qty/Days Supply: Rx Expiration Date: 01/10/24 Refills Remainin OUTPT GLUCOSE 4GM CHEW TAB (Status = Active) CHEW THREE TO FOUR TABLETS BY MOUTH NEEDED FOR LOW BLOOD SUGAR BELOW 70 Rx# [id number] Last Released: 10/24/23 Qty/Days Supply: Rx Expiration [...] 15 UNITS EVERY EVENING BEFORE SUPPER Rx# [id number] Last Released: 08/19/23 Qty/Days Supply: Rx Expiration Date: 08/13/24 Refills Remainin Indication: FOR DIABETES OUTPT INSULIN,GLARGINE-YFGN 100UNIT/ML PEN 3ML (Status = On Hold) INJECT 10 UNITS SUBCUTANEOUSLY TWICE DAILY Rx# [id number] Last Released: Supply: Rx Expiration Date: 08/13/24 Refills Remainin Indication: FOR DIABETES OUTPT LIDOCAINE 5% OINT (Status = Active) APPLY LIBERAL AMOUNT TOPICALLY TWICE DAILY NEEDED FOR NEUROPATHY PAIN Rx# [id number] Last Released: 08/23/23 Qty Supply: Rx Expiration Date: 12/17/23 Refills Remainin Indication: NEUROPATHY PAPIN Non-VA METOPROLOL TARTRATE 25MG TAB TAKE ONE-HALF TABLET BY MOUTH TWICE DAILY Non-VA TERAZOSIN HCL 5MG CAP TAKE 1 CAPSULE BY MOUTH ONCE DAILY -------- SUPPLIES -------- OUTPT GLUCOSE SENSOR FREESTYLE DEVON 2 (Status = Active) USE 1 SENSOR DIRECTED EVERY 14 DAYS Rx# [id number] Last Released: 11/12/23 Qty/Days Supply: 05/21 Rx Expiration Date: 01/28/24 Refills Remainin OUTPT GLUCOSE SENSOR FREESTYLE DEVON 2 (Status = Pending) GLUCOSE SENSOR FREESTYLE DEVON 2 USE 1 SENSOR DIRECTED EVERY 14 DAYS Renewed from Rx# [id number] Qty/Days Supply: 05/21 Login Date: 11/13/23 Refills Ordered: tyree BUTTS MD STAFF PHYSICIAN Signed: 11/13/2023 10:02 Receipt Acknowledged By: 11/13/2023 10:36 /jus/ VICTORINA TIRADO PHARMD,[facility] CLINICAL PHARMACY PRACTITIONER 11/13/2023 ADDENDUM STATUS: COMPLETED Please reach to schedule apt as recommended by . Please schedule 60 mins FTF for Devon 3 teaching within next 2-4 weeks or further out if pt desires. /jus/ VICTORINA TIRADO PHARMD,[facility] CLINICAL PHARMACY PRACTITIONER Signed: 11/13/2023 10:39 Receipt Acknowledged By: * AWAITING SIGNATURE * ANGELES JUNIOR ALICE [facility]
--- OUTSIDE RECORDS SUMMARY | 2024-07-20 08:32 | XMS_ITS | Clinical Summary ---
Author Organization [address] Address [address] [place] [phone] Phone Care Team Providers Care Cloth Painter Name Role Phone Donte Powell MD Primary Care Provider [phone] Encounters Date Type Department Care Team Description 06/10/2024 Lab Requisition [facility] [address] [place] [phone] Ross Saul MD Unspecified atrial fibrillation (CMS/HCC V24, CMS/HCC V28) 06/05/2024 Lab Requisition [facility] [address] [place] [phone] Ross Saul MD Unspecified atrial fibrillation (CMS/HCC V24, CMS/HCC V28) 06/03/2024 Lab Requisition [facility] [address] [place] [phone] Ross Saul MD Unspecified atrial fibrillation (CMS/HCC V24, CMS/HCC V28) 05/31/2024 Lab Requisition [facility] [address] [place] [phone] Ross Saul MD Unspecified atrial fibrillation (CMS/HCC V24, CMS/HCC V28); Anemia, unspecified; Anemia in chronic kidney disease (CODE) 05/29/2024 Lab Requisition [facility] [address] [place] [phone] Ross Saul MD Diarrhea, unspecified 05/29/2024 Lab Requisition [facility] [address] [facility] [place] [phone] Ross Saul MD Unspecified atrial fibrillation ([facility] V24, [facility] V28); Diarrhea, unspecified 05/29/2024 Lab Requisition [facility] [address] [place] [phone] Ross Saul MD Unspecified atrial fibrillation ([facility] V24, [facility] V28); Diarrhea, unspecified from Last 3 Months Surgical History Surgery Date Site/Laterality Comments APPENDECTOMY PROCEDURE: HISTORICAL APPENDECTOMY; COMMENT: 1947 OTHER SURGICAL HISTORY PROCEDURE: NM HEMORRHOID NTRNL & XTRNL 1 COLUMN W/FISSURECTO; COMMENT: 1971 CATARACT EXTRACTION PROCEDURE: HISTORICAL CATARACT REMOVAL; COMMENT: left and right, 2008 OTHER SURGICAL HISTORY PROCEDURE: NM BYP OTH/THN VEIN AORTOBIFEMORAL Medical History Medical History Date Comments HTN (hypertension) DX:HTN (hyper tension) Diabetes ([facility] V24, [facility] V28) DX:Diabetes (HCC) Hypercholesteremia DX:Hyperchole steremia Lymphoma ([facility] V24, [facility] V28) DX:Lymphoma (HCC); COMMENT: nk-t cell Atrial fibrillation ([facility] V24, [facility] V28) DX:Atrial fibrillation (HCC) Family History Medical History Relation Name Comments Diabetes Mother Relation Name Status Comments Father Mother Social History Tobacco Use Types Packs/Day Years [...] on file Sexual Orientation Not on file Obstetrics History Plan of Treatment Health Maintenance Due Date Last Done Comments Diabetes: Annual Foot Exam 12/20/1950 Diabetes: Annual Retina Eye Exam 12/20/1950 Zoster Vaccines (1 of 2) 1960 Hepatitis B Vaccines (2 of 3 - 19+ 3-dose series) 12/17/2011 11/19/2011 IPV Vaccines (2 of 3 - Adult catch-up series) 12/17/2011 11/19/2011 RSV Immunization Adult Patients (1 - 1-dose 75+ series) 2016 COVID-19 Vaccine (4 - 2023-2 5 season) 2023 03/03/2021, 05/10/2020, 04/12/2020 Cholesterol Screening (Lipid Panel) 05/31/2024 Diabetes: Annual Urine Albumin-Creatinine Ratio (uACR) 05/31/2024 Diabetes: Blood Sugar Contro l Test (HGBA1C) 05/31/2024 03/19/2017 Falls Risk Assessment 05/31/2024 Medicare Annual Wellness Visit 05/31/2024 Social Influencers of Health Screening 05/31/2024 Influenza Vaccine (Season Ended) 2024 03/21/2020, 12/04/2018, 04/18/2017 Depression Screening 01/28/2025 01/29/2024 Diabetes: Annual GFR (Glomerular Filtration Rate) 06/07/2025 06/07/2024, 05/31/2024, 09/29/2023 Hypertension/CHF/CAD Annual BMP Blood Test 06/07/2025 06/07/2024, 05/31/2024, 09/29/2023 DTaP,Tdap,and Td Vaccines (3 - Td or Tdap) 10/16/2026 10/16/2016, 11/19/2011 HIB Vaccines Aged Out 11/19/2011 No longer eligi ble based on patient's age to complete this topic Pneumococcal Vaccine: 50+ Years Completed 10/19/2018, 10/16/2016, 11/19/2011 HPV Vaccines Aged Out No longer eligi ble based on patient's age to complete this topic Hepatitis A Vaccines Aged Out No long er eligible based on patient's age to complete this topic MMR Vaccines Aged Out No longer eligi ble based on patient's age to complete this topic Meningococcal ACWY Vaccine Aged Out N o longer eligible based on patient's age to complete this topic Meningococcal B Vaccine Aged Out No l onger eligible based on patient's age to complete this topic RSV Immunization Patients Under 20 months Aged Out No longer eligible b ased on patient's age to complete this topic Varicella Vaccines Aged Out No longer eligible based on patient's age to complete this topic Procedures Procedure Name Priority Date/Time Associated Diagnosis Comments COMPREHENSIVE METABOLIC PANEL Routine 06/07/2024 5:10 AM EDT Unspecified atrial fibrillation (CMS/HCC) COMPLETE BLOOD COUNT Routine 06/07/2024 5:10 AM EDT Unspecified atrial fibrillation (CMS/HCC) COMPREHENSIVE METABOLIC PANEL Routine 05/31/2024 5:15 AM EDT Unspecified atrial fibrillation (CMS/HCC) Anemia, unspecified Anemia in chronic kidney disease (CODE) COMPLETE BLOOD COUNT Routine 05/31/2024 5:15 AM EDT Unspecified atrial fibrillation (CMS/HCC) Anemia, unspecified Anemia in chronic kidney disease (CODE) MISCELLANEOUS LAB TEST Routine 05/29/2024 1:45 PM EST Unspecified atrial fibrillation (CMS/HCC) Diarrhea, unspecified NOROVIRUS PCR Routine 05/29/2024 1:45 PM EST Unspecified atrial fibrillation (CMS/HCC) Diarrhea, unspecified from Last 3 Months Results * (ABNORMAL) Complete blood count (06/07/2024 5:10 AM EDT) Only the most recent of2 resultswithin the time period is included. WBC 4.7(L) 4.8 - 10.8 K/mcL LAB HEMETOLOGY METHOD 06/07/2024 10:26 AM [facility] RBC 2.80(L) 4.50 - 5.50 M/mcL LAB HEMETOLOGY METHOD 06/07/2024 10:26 AM [facility] Hemoglobin 8.8(L) 13.5 - 17.5 g/dL LAB HEMETOLOGY METHOD 06/07/2024 10:26 AM [facility] Hematocrit 28.8(L) 42.0 - 54.0 % LAB HEMETOLOGY METHOD 06/07/2024 10:26 AM [facility] MCV 102.5(H) 79.0 - 98.0 FL LAB HEMETOLOGY METHOD 06/07/2024 10:26 AM EDT [facility] MCH 31.3 27.0 - 32.0 pcg LAB HEMETOLOGY METHOD 06/07/2024 10:26 AM EDT [facility] MCHC 30.6(L) 32.0 - 37.0 g/dL LAB HEMETOLOGY METHOD 06/07/2024 10:26 AM EDT [facility] RDW 17.2(H) 11.0 - 15.0 % LAB HEMETOLOGY METHOD 06/07/2024 10:26 AM EDT [facility] Platelets 220 130 - 400 K/mcL LAB HEMETOLOGY METHOD 06/07/2024 10:26 AM EDT [facility] MPV 11.5(H) 7.0 - 11.0 FL LAB HEMETOLOGY METHOD 06/07/2024 10:26 AM EDT [facility] NRBC 0.0 <1.0 % LAB HEMETOLOGY METHOD 06/07/2024 10:26 AM EDT [facility] NRBC Absolute 0.00 <0.10 K/mcL LAB HEMETOLOGY METHOD 06/07/2024 10:26 AM [facility] Blood Venous blood specimen / Unknown Venipuncture / Unknown 06/07/2024 5:10 AM EDT 06/07/2024 9:43 AM EDT us Ross Saul MD LAB BLOOD ORDERABLES Final Resu lt [facility] [address] [place] [address], * (ABNORMAL) Comprehensive metabolic panel (06/07/2024 5:10 AM EDT) Only the most recent of2 resultswithin the time period is included. [facility] Sodium 142 133 - 145 mmol/L LAB CHEMISTRY METHOD 06/07/2024 10:44 AM [facility] Potassium 4.1 3.5 - 5.5 mmol/L LAB CHEMISTRY METHOD 06/07/2024 10:44 AM [facility] Chloride 108 96 - 110 mmol/L LAB CHEMISTRY METHOD 06/07/2024 10:44 AM [facility] CO2 23 21 - 32 mmol/L LAB CHEMISTRY METHOD 06/07/2024 10:44 AM [facility] Anion Gap 11 3 - 11 LAB CHEMISTRY METHOD 06/07/2024 10:44 AM [facility] Glucose 115(H) 70 - 100 mg/dL LAB CHEMISTRY METHOD 06/07/2024 10:44 AM [facility] BUN 21 5 - 25 mg/dL LAB CHEMISTRY METHOD 06/07/2024 10:44 AM [facility] Creatinine 1.37(H) 0.70 - 1.30 mg/dL LAB CHEMISTRY METHOD 06/07/2024 10:44 AM [facility] eGFR 52(L) >=60 mL/min/1. 73m2 LAB CHEMISTRY METHOD 06/07/2024 10:44 AM [facility] Comment:Calculation based on the??Chronic Kidney Disease Epidemiology Collaboration (CKD-EPI) equation refit??without adjustment for race. BUN/Creatinine Ratio 15.3 LAB CHEMISTRY METHOD 06/07/2024 10:44 AM [facility] Calcium 8.3(L) 8.5 - 10.5 mg/dL LAB CHEMISTRY METHOD 06/07/2024 10:44 AM [facility] AST (SGOT) 92(H) 10 - 42 unit/L LAB CHEMISTRY METHOD 06/07/2024 10:44 AM [facility] ALT (SGPT) 64(H) 10 - 60 unit/L LAB CHEMISTRY METHOD 06/07/2024 10:44 AM [facility] Alkaline Phosphatase 139(H) 42 - 121 unit/L LAB CHEMISTRY METHOD 06/07/2024 10:44 AM EDT [facility] Total Protein 6.1 6.0 - 8.0 g/dL LAB CHEMISTRY METHOD 06/07/2024 10:44 AM EDT [facility] Albumin 2.4(L) 3.2 - 5.0 g/dL LAB CHEMISTRY METHOD 06/07/2024 10:44 AM EDT [facility] Total Bilirubin 0.5 0.0 - 1.4 mg/dL LAB CHEMISTRY METHOD 06/07/2024 10:44 AM EDT [facility] Blood Venous blood specimen / Unknown Venipuncture / Unknown 06/07/2024 5:10 AM EDT 06/07/2024 9:45 AM EDT us Ross Saul MD LAB BLOOD ORDERABLES Final Resu lt Performing Organization Address City/[facility]/ZIP Co de Phone Number [facility] [address] [place] [address], [place] [phone] * (ABNORMAL) Norovirus molecular study (05/29/2024 1:45 PM EST) Norovirus GI Negative Negative 06/03/2024 6:05 AM EDT [facility] Norovirus GII Positive(A) Negative 06/03/2024 6:05 AM EDT [facility] Stool Rectum structure / Unknown 05/29/2024 1:45 PM EST 05/29/2024 6:13 PM EST Narrative [facility] - 06/03/2024 6:05 AM EDT Test(s) [id number] GI; [id number] GII was developed and its performance characteristics determined by [facility]. It has not been cleared or approved by the Food and Drug Administration. us Ross Saul MD LAB MICROBIOLOGY - [facility]AL ORDE [facility] Final Result [facility] * - Miscellaneous Test (05/29/2024 1:45 PM EST) Miscellaneous Test COMMENT 2024 6:05 AM EDT [facility] Stool 05/29/2024 1:45 PM EST 05/29/2024 6:13 PM EST Narrative [facility] - 06/03/2024 6:05 AM EDT Performed At: [address] [facility] [address] [id number] Cody Paul MD Ph:[phone] Performed At: 02 [facility] [address], [address] [place], [place] [id number] Jordan Aquino MD Ph:[phone] us Ross Saul MD LAB BLOOD ORDERABLES Final Resu lt [facility] from Last 3 Months Additional Health Concerns Infection Onset Date Last Indicated Norovirus 05/29/2024 05/29/2024 Insurance MEDICARE [facility] Care Teams Cloth Painter Relationship Specialty Start Date End Date Donte Powell MD [address] [place] PCP - General Internal Medicine 09/21/18
--- OUTSIDE RECORDS SUMMARY | 2024-07-20 08:32 | XMS_ITS ---
Author Name [facility] [place] Organization [place] Address [address] [place] [id number] Care Team Providers Care Sandstone Splitter Name Role Phone ABAD RUSSELL Primary Care [...] PART A Nov 22, 2006 PART A [id number] TONY CASTELLON PATIENT MEDICARE (WNR) MEDICARE (M) PART B Nov 22, 2006 PART B [id number] TONY CASTELLON PATIENT MEDICARE (WNR) MEDICARE (M) PART B Nov 22, 2006 PART B [id number] TONY CASTELLON PATIENT MEDICARE (WNR) MEDICARE (M) PART A Nov 22, 2006 PART A [id number] TONY CASTELLON PATIENT FOR LIFE TFL* Apr 20, 2014 [id number] SUKHJINDER CASTELLON JR PATIENT Selected Encounter This section includes the information on record at [place] for the Encounter. Date/Time Encounter Type Encounter Description Reason Provider Source Jan 06, 2024 09:30 AM OFFICE O/P EST LOW 20 MIN PRIMARY CARE/MEDICINE ICD-10-CM Z95.0 Presence of cardiac pacemaker [place]IS RUSSELL AM Encounter Template Text not used by [place] Assessments - Encounter Diagnoses This section includes the primary and secondary diagnoses documented for the Encounter. Date/Time Primary/Secondary Diagnosis Diagnosis Name Provider Source Jan 06, 2024 03:48 PM PRIMARY Presence of cardiac pacemaker RUSSELL,WILL CE[facility]AR [facility] [place] [facility] Jan 06, 2024 03:48 PM SECONDARY Chronic kidney disease, unspecified RUSSELL,WILL CEASAR [facility] [place] [facility] Jan 06, 2024 03:48 PM SECONDARY Chronic obstructive pulmonary disease, unspecified RUSSELL,WILL [facility]ASAR [facility] [place] [facility] Jan 06, 2024 03:48 PM SECONDARY Essential (primary) hypertension RUSSELL,WILL CEASAR [facility] [place] [facility] Jan 06, 2024 03:48 PM SECONDARY Mixed hyperlipidemia RUSSELL,WILL CEASAR [facility] [place] [facility] Jan 06, 2024 03:48 PM SECONDARY Paroxysmal atrial fibrillation RUSSELL,WILL [facility]AR [facility] [place] [facility] Jan 06, 2024 03:48 PM SECONDARY Peripheral vascular disease, unspecified RUSSELL,WILL CEASAR [facility] [place] [facility] Jan 06, 2024 03:48 PM SECONDARY Type 2 diabetes mellitus w diabetic chronic kidney disease RUSSELL,WILL CEASAR [facility] [place] [facility] Jan 06, 2024 03:48 PM SECONDARY Type 2 diabetes mellitus with diabetic polyneuropathy RUSSELL,WILL CEASAR [facility] [place] [facility] Jan 06, 2024 03:48 PM SECONDARY Type 2 diabetes mellitus with unspecified complications RUSSELL,WILL CEASAR [facility] [place] [facility] Jan 06, 2024 03:48 PM SECONDARY Unspecified atrial fibrillation RUSSELL,WILL CEASAR J [facility] Plan of Treatment: Future Appointments (+ 6 months) and Future Tests (+/- 45 days) The Plan of Treatment section includes future care activities for the patient from all [place] [facility]. This section includes future appointments [...] - MEDICINE [place] [facility] Jan 19, 2024 08:30 AM AMBULATORY - REHAB MEDICIN E [facility] [place] [facility] Feb 23, 2024 03:00 PM AMBULATORY - MEDICINE [place] [facility] Mar 03, 2024 02:00 PM AMBULATORY - MEDICINE [place] [facility] Mar 03, 2024 02:30 PM AMBULATORY - MEDICINE [place] [facility] Apr 07, 2024 08:00 AM AMBULATORY - MEDICINE [place] [facility] Apr 27, 2024 03:00 PM AMBULATORY - MEDICINE [place] [facility] May 05, 2024 11:30 AM AMBULATORY - MEDICINE [place] [facility] May 17, 2024 02:00 PM AMBULATORY - MEDICINE [place] [facility] Lab Results: +/- 30 days of [...] Type Comment Jan 29, 2024 09:49 AM [place] [facility] [facility] CREATININE (eGFR 2020) SERUM Specimen Type: SERUM No comment entered. Ordering Provider: MINA RUSSELL Report Released Date/Time: Jan 27, 2024 07:33 AM Reporting Lab: [facility] [address] [address] Performing Lab: [facility] [address] [address] CREATININE, Serum 1.86 mg/dL H 0.50-1.40 eGFR(CKD-EPI 2020) 36 mL/min L >60 Jan 29, 2024 09:49 AM [facility] PT & INR (COUMADIN) PLASMA Specimen Type: PLAS [place] No comment entered. Ordering Provider: ABAD RUSSELL Report Released Date/Time: Jan 27, 2024 07:33 AM Reporting Lab: [facility] [address] [facility] [address] Performing Lab: [facility] [address] INR 1.3 PROTIME 14.6 s H 10.0-13.1 Jan 29, 2024 09:49 AM [facility] LIVER FUNCTION SERUM Specimen Type: SERUM No comment entered. Ordering Provider: ABAD RUSSELL Report Released Date/Time: Jan 27, 2024 07:33 AM Reporting Lab: [facility] [address] Performing Lab: [address] [address] PROTEIN,TOTAL 7.4 g/dL 6.0-8.3 ALBUMIN 3.2 g/dL L 3.5-5.0 ALKALINE PHOSPHATASE 66 U/L 40-150 AST 30 U/L 5-34 ALT 31 U/L BILIRUBIN, TOTAL 0.4 mg/dL 0.2-1.2 Jan 29, 2024 09:49 AM [facility] CBC BLOOD Specimen Type: BLOOD No comment entered. Ordering Provider: ABAD RUSSELL Report Released Date/Time: Jan 27, 2024 07:33 AM Reporting Lab: [facility] [address] Performing Lab: [address] [address] WBC 6.95 10*3/uL 4.50-11.00 RBC 3.19 10*6/uL [...] Source Jan 06, 2024 03:45 PM 132/74 [place] [facility] Jan 06, 2024 09:24 AM 97.6 78 144/65 16 98 0 180 29 [place] [facility] Social History: Smoking Status (Most current) [...] took place. Date/Time Current Smoking Status Comment [facility] Jan 06, 2024 09:30 AM VA-TOBACCO QUIT 15 YRS OR MORE [facility] Tobacco Use History This section includes a history of the smoking, or tobacco-related health factors, that were collected on or before the date of the Encounter. The data comes from the [place] facility where the Encounter took place. Date/Time Smoking Status/Tobac co Use Comment Facility Jan 06, 2024 09:30 AM VA-TOBACCO QUIT 15 YRS OR MORE [place] [facility] Dec 24, 2022 10:30 AM VA-TOBACCO FORMER USER [place] [facility] Dec 24, 2022 10:30 AM VA-TOBACCO QUIT 15 YRS OR MORE [facility] [place] [facility] Dec 24, 2021 10:00 AM VA-TOBACCO FORMER USER [place] [facility] Dec 24, 2021 10:00 AM VA-TOBACCO QUIT 5 TO < 15 YRS [place] [facility] Dec 14, 2020 08:30 AM [facility]-TOBACCO [facility] [place] [facility] Dec 14, 2020 08:30 AM VA-TOBACCO QUIT 5 TO < 15 YRS [facility] Nov 15, 2019 11:00 AM VA-TOBACCO [facility] Nov 15, 2019 11:00 AM VA-TOBACCO QUIT 5 TO < 15 YRS [facility] Oct 20, 2017 08:19 AM VA-TOBACCO [facility] Oct 20, 2017 08:19 AM VA-TOBACCO QUIT 5 TO < 15 YRS [facility] Sep 04, 2017 11:09 AM QUIT TOBACCO USE > 7 YEARS AGO [facility] Oct 16, 2016 09:08 AM QUIT TOBACCO USE > 7 YEARS AGO [facility] Feb 20, 2015 10:58 AM QUIT TOBACCO USE > 7 YEARS AGO quit 2009-cigarettes and cigars for 45 years [facility] Advance Directives: All historical and current Section [...] Mar 23, 2014 ADVANCE DIRECTIVE ROSALINDA SHELBY [facility] Encounter Notes: All associated encounter notes This [...] complaint: Patient is a 83 year old Golf. HPI: Pleasant male Golf here to follow up, first visit with ar. In November he had an aortic valve replacement. He follows with NON va cardiology, [facility] cardiac rehab. Feeling well. He follows in [place] with Dr Powell. Lives alone, son is [...] 09:24)BMI: 29.1180 lb [81.65 kg] (01/06/2024 09:24) Golf is alert and oriented X3 Eyes:No scleral [...] of active outpatient prescriptions dispensed from this [place] (local) and dispensed from another [place] or [facility] facility (remote) as well as inpatient orders [...] VA or non-VA provider. /jus/ Abad Russell [facility], [employer], CNL Primary Care Nurse Practitioner Signed: 01/06/2024 15:47 ABAD RUSSELL [place] [facility] Jan 06, 2024 10:18 AM PREVENTIVE [...] their sexual orientation as: Straight or Heterosexual /es/ MARICRUZ CATHERINE LPN License Practical Nurse Signed: 01/06/2024 10:20 MARICRUZ CATHERINE [facility]
--- OUTSIDE RECORDS SUMMARY | 2024-07-20 08:32 | XMS_ITS | Clinical Summary ---
Author Organization Unknown Care Team Providers Care Netsuite Developer Name Role Phone DAVID PALACIO, ELAINE Unavailable Unavailable DEBRA RN, IZABELLA Unavailable Unavailable AMRIT PT, JAMES Unavailable Unavail able ENRIQUE TROLLEY CAR OPERATOR, MARINO Unavailable Unavailable Payers Payer Name Policy Type Policy Number Effective Date Expira tion Date MEDICARE.NGS.PDGM [id number] Problems Condition Name Condition Details Condition Category Status Onset Date Resolution Date Last Treatment Date Treating Clinician Comments ENCNTR FOR SURGICAL AFTCR FOLLOWING SURGERY ON THE CIRC SYS Active 06-10 00:00: 00 TYPE 2 DIABETES W DIABETIC PERIPHERAL ANGIOPATH W/O GANGRENE Active 06-10 00:00: 00 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, LEFT LEG Active 06-10 00:00: 00 HYP HRT AND CHR KDNY DIS W HRT FAIL AND STG 1-4/UNSP CHR KDNY Active 06-10 00:00: 00 CHRONIC SYSTOLIC (CONGESTIVE) HEART FAILURE Active 06-10 00:00: 00 TYPE 2 DIABETES MELLITUS W DIABETIC CHRONIC KIDNEY DISEASE Active 06-10 00:00: 00 CHRONIC KIDNEY DISEASE, UNSPECIFIED Active 06-10 00:00: 00 ANEMIA IN CHRONIC KIDNEY DISEASE Active 06-10 00:00: 00 LEFT BUNDLE-BRANC H BLOCK, UNSPECIFIED Active 06-10 00:00: 00 UNSPECIFIED ATRIAL FIBRILLATION Active 06-10 00:00: 00 NONRHEUMATIC AORTIC (VALVE) STENOSIS Active 06-10 00:00: 00 CHRONIC OBSTRUCTIVE PULMONARY DISEASE, UNSPECIFIED Active 06-10 00:00: 00 OBSTRUCTIVE SLEEP APNEA (ADULT) (PEDIATRIC) Active 06-10 00:00: 00 OTHER PRIMARY THROMBOPHILI A Active 06-10 00:00: 00 PRIMARY OSTEOARTHRIT IS, RIGHT HAND Active 06-10 00:00: 00 PRIMARY OSTEOARTHRIT IS, LEFT HAND Active 06-10 00:00: 00 BENIGN PROSTATIC HYPERPLASIA WITHOUT LOWER URINRY TRACT SYMP Active 06-10 00:00: 00 GASTRO-ESOPH AGEAL REFLUX DISEASE WITHOUT ESOPHAGITIS Active 06-10 00:00: 00 PERSONAL HISTORY OF NON-HODGKIN LYMPHOMAS Active 06-10 00:00: 00 PRESENCE OF CARDIAC PACEMAKER Active 06-10 00:00: 00 STEM CELLS TRANSPLANT STATUS Active 06-10 00:00: 00 PRESENCE OF PROSTHETIC HEART VALVE Active 06-10 00:00: 00 PERSONAL HISTORY OF NICOTINE DEPENDENCE Active 06-10 00:00: 00 Allergies, Adverse Reactions, Alerts Allergy Name Allergy Type Status Severity Reaction(s) Onset Date Inactive Date Treating Clinician Comments NO KNOWN ALLERGIES Propensity to adverse reactions Active 06-10 13:11: 26 Medications Ordered Medication Name Filled Medication Name Start Date Stop Date Current Medication? Ordering Clinician Indication Dosage Frequency Signature (SIG) Comments Components albuterol sulfate HFA 90 mcg/actuati on aerosol inhaler 07-13 00:00: 00 10-23 23:59 :00 No [id number] SHORTNESS OF BREATH, WHEEZING Per instruc tions EVERY 4 HOURS Per instructio ns EVERY 4 HOURS (route: inhalation ) Med Classific ation: Respirato ry Therapy Agents albuterol sulfate HFA 90 mcg/actuati on aerosol inhaler 07-13 00:00: 00 07-19 00:00 :00 No [id number] Per instruc tions EVERY 4 HOURS NEEDED Per instructio ns EVERY 4 HOURS NEEDED (route: inhalation ) Med Classific ation: Respirato ry Therapy Agents BD Insulin Syringe Ultra-Fine 1 mL 31 gauge x 5/16 18 00:00: 00 07-19 00:00 :00 No [id number] Per instruc tions Per instructio ns (route: miscellane ous) Med Classific ation: Medical Supplies and Durable Medical Equipment (DME) terazosin 5 mg capsule 4-18 00:00: 00 10-23 23:59 :00 No [id number] BPH 1 capsule DAILY 1 capsule DAILY (route: oral) Med Classific ation: Cardiovas cular Therapy Agents Lantus U-100 Insulin 100 unit/mL subcutaneou s solution 4-13 00:00: 00 07-19 00:00 :00 No [id number] Per instruc tions Per instructio ns (route: subcutaneo us) Med Classific ation: Endocrine fenofibrate 54 mg tablet 4-11 00:00: 00 10-23 23:59 :00 No [id number] BPH 2 tablet DAILY 2 tablet DAILY (route: oral) Med Classific ation: Cardiovas cular Therapy Agents atorvastati n 10 mg tablet 2-18 00:00: 00 10-23 23:59 :00 No [id number] HLD 1 tablet BEDTIME 1 tablet BEDTIME (route: oral) Med Classific ation: Cardiovas cular Therapy Agents nifedipine ER 30 mg tablet,exte nded release 2-18 00:00: 00 10-23 23:59 :00 No [id number] HTN 1 tablet DAILY 1 tablet DAILY (route: oral) Med Classific ation: Cardiovas cular Therapy Agents Lantus U-100 Insulin 100 unit/mL subcutaneou s solution 2-15 00:00: 00 10-23 23:59 :00 No [id number] DM 18 unit 2 TIMES DAILY 18 unit 2 TIMES DAILY (route: subcutaneo us) Med Classific ation: Endocrine terazosin 5 mg capsule 2-10 00:00: 00 07-19 00:00 :00 No [id number] Per instruc tions Per instructio ns (route: oral) Med Classific ation: Cardiovas cular Therapy Agents BD Insulin Syringe Ultra-Fine 1 mL 31 gauge x 5/16 2-09 00:00: 00 07-19 00:00 :00 No [id number] Per instruc tions Per instructio ns (route: miscellane ous) Med Classific ation: Medical Supplies and Durable Medical Equipment (DME) finasteride 5 mg tablet 04-20 00:00: 00 10-23 23:59 :00 No [id number] BPH 1 tablet DAILY 1 tablet DAILY (route: oral) Med Classific ation: Genitouri nary Therapy Aspirin Low Dose 81 mg tablet,nora yed release 07-19 00:00: 00 10-23 23:59 :00 No [id number] HEART DISEASE 1 tablet DAILY 1 tablet DAILY (route: oral) Med Classific ation: Hematolog ical Agents cholecalcif mary (vitamin D3) 10 mcg (400 unit) capsule 07-19 00:00: 00 10-23 23:59 :00 No [id number] SUPPLEMENT 1 capsule DAILY 1 capsule DAILY (route: oral) Med Classific ation: Electroly te Balance-N utritiona l Products Eliquis 5 mg tablet 07-19 00:00: 00 10-23 23:59 :00 No [id number] AFIB 1 tablet 2 TIMES DAILY 1 tablet 2 TIMES DAILY (route: oral) Med Classific ation: Hematolog ical Agents ferrous fumarate 324 mg (106 mg iron) tablet 07-19 00:00: 00 10-23 23:59 :00 No [id number] SUPPLEMENT 1 tablet DAILY 1 tablet DAILY (route: oral) Med Classific ation: Electroly te Balance-N utritiona l Products insulin lispro (U-100) 100 unit/mL subcutaneou s pen 07-19 00:00: 00 10-23 23:59 :00 No [id number] DM Per instruc tions BEFORE MEALS AND BEDTIME Per instructio ns BEFORE MEALS AND BEDTIME (route: subcutaneo us) Med Classific ation: Endocrine metoprolol tartrate 50 mg tablet 07-19 00:00: 00 07-25 23:59 :00 No [id number] HTN 1 tablet DAILY 1 tablet DAILY (route: oral) Med Classific ation: Cardiovas cular Therapy Agents One-A-Day Trubiotics 2 billion cell capsule 4-28 00:00: 00 10-23 23:59 :00 No [id number] SUPPLEMENT 1 capsule DAILY 1 capsule DAILY (route: oral) Med Classific ation: Gastroint estinal Therapy Agents metoprolol tartrate 25 mg tablet 04 00:00: 00 10-23 23:59 :00 No [id number] HTN 12.5 mg 2 TIMES DAILY 12.5 mg 2 TIMES DAILY (route: oral) Med Classific ation: Cardiovas cular Therapy Agents amoxicillin 875 mg-potassiu m clavulanate 125 mg tablet 10-23 00:00: 00 04-27 23:59 :00 No [id number] ABT 1 tablet 2 TIMES DAILY 1 tablet 2 TIMES DAILY (route: oral) Med Classific ation: Anti-Infe ctive Agents terazosin 5 mg capsule 7-11 00:00: 00 10-28 00:00 :00 No [id number] Per instruc tions Per instructio ns (route: oral) Med Classific ation: Cardiovas cular Therapy Agents Advair Diskus 250 mcg-50 mcg/dose powder for inhalation 10-28 00:00: 00 04-27 23:59 :00 No [id number] COPD 1 inhalat ion 3 TIMES DAILY 1 inhalation 3 TIMES DAILY (route: inhalation ) Med Classific ation: Respirato ry Therapy Agents Eliquis 5 mg tablet 10-28 00:00: 00 04-27 23:59 :00 No [id number] ANTICOAGULA TION 1 tablet 2 TIMES DAILY 1 tablet 2 TIMES DAILY (route: oral) Med Classific ation: Hematolog ical Agents fenofibrate 54 mg tablet 10-28 00:00: 00 04-27 23:59 :00 No [id number] PROSTATE 1 tablet DAILY 1 tablet DAILY (route: oral) Med Classific ation: Cardiovas cular Therapy Agents insulin glargine (U-100) 100 unit/mL subcutaneou s solution 10-28 00:00: 00 04-27 23:59 :00 No [id number] DM 18 unit 2 TIMES DAILY 18 unit 2 TIMES DAILY (route: subcutaneo us) Med Classific ation: Endocrine iron 325 mg (65 mg iron) tablet 10-28 00:00: 00 04-27 23:59 :00 No [id number] SUPPLEMENT 1 tablet DAILY 1 tablet DAILY (route: oral) Med Classific ation: Electroly te Balance-N utritiona l Products Lipitor 10 mg tablet 10-28 00:00: 00 04-27 23:59 :00 No [id number] CAD 1 tablet DAILY 1 tablet DAILY (route: oral) Med Classific ation: Cardiovas cular Therapy Agents losartan 50 mg tablet 10-28 00:00: 00 04-27 23:59 :00 No [id number] HTN 1 tablet DAILY 1 tablet DAILY (route: oral) Med Classific ation: Cardiovas cular Therapy Agents terazosin 5 mg capsule 10-28 00:00: 00 04-27 23:59 :00 No [id number] SLEEP 1 capsule DAILY 1 capsule DAILY (route: oral) Med Classific ation: Cardiovas cular Therapy Agents Toprol XL 25 mg tablet,exte nded release 10-28 00:00: 00 04-27 23:59 :00 No [id number] AFIB 0.5 tablet DAILY 0.5 tablet DAILY (route: oral) Med Classific ation: Cardiovas cular Therapy Agents Vitamin D3 25 mcg (1,000 unit) capsule 10-28 00:00: 00 04-27 23:59 :00 No [id number] SUPPLEMENT 1 capsule DAILY 1 capsule DAILY (route: oral) Med Classific ation: Electroly te Balance-N utritiona l Products Advair Diskus 250 mcg-50 mcg/dose powder for inhalation 04-30 00:00: 00 06-02 23:59 :00 No [id number] SOB 1 inhalat ion 2 TIMES DAILY 1 inhalation 2 TIMES DAILY (route: inhalation ) Med Classific ation: Respirato ry Therapy Agents atorvastati n 40 mg tablet 2- 00:00: 00 06-02 23:59 :00 No [id number] CHOLESTEROL 1 tablet BEDTIME 1 tablet BEDTIME (route: oral) Med Classific ation: Cardiovas cular Therapy Agents D3 DOTS 50 mcg (2,000 unit) tablet 2- 00:00: 00 06-02 23:59 :00 No [id number] SUPPLEMENT 1 tablet DAILY 1 tablet DAILY (route: oral) Med Classific ation: Electroly te Balance-N utritiona l Products Eliquis 2.5 mg tablet 2- 00:00: 00 06-02 23:59 :00 No [id number] ATRIAL FIB 1 tablet 2 TIMES DAILY 1 tablet 2 TIMES DAILY (route: oral) Med Classific ation: Hematolog ical Agents fenofibrate 54 mg tablet 2 00:00: 00 06-02 23:59 :00 No [id number] CHOLESTEROL 2 tablet DAILY 2 tablet DAILY (route: oral) Med Classific ation: Cardiovas cular Therapy Agents ferrous sulfate 325 mg (65 mg iron) tablet 04-30 00:00: 00 06-02 23:59 :00 No [id number] ANEMIA 1 tablet DAILY 1 tablet DAILY (route: oral) Med Classific ation: Electroly te Balance-N utritiona l Products finasteride 5 mg tablet 2 00:00: 00 06-02 23:59 :00 No [id number] BPH 1 tablet DAILY 1 tablet DAILY (route: oral) Med Classific ation: Genitouri nary Therapy insulin glargine (U-100) 100 unit/mL (3 mL) subcutane s pen 2- 00:00: 00 06-02 23:59 :00 No [id number] DM 18 unit 2 TIMES DAILY 18 unit 2 TIMES DAILY (route: subcutaneo us) Med Classific ation: Endocrine losartan 50 mg tablet 2- 00:00: 00 06-02 23:59 :00 No [id number] HTN 50 mg DAILY 50 mg DAILY (route: oral) Med Classific ation: Cardiovas cular Therapy Agents metoprolol succinate ER 25 mg tablet,exte nded release 24 hr 2-07 00:00: 00 06-02 23:59 :00 No [id number] RATE CONTROL,BP .5 tablet 2 TIMES DAILY .5 tablet 2 TIMES DAILY (route: oral) Med Classific ation: Cardiovas cular Therapy Agents Novolin N FlexPen 100 unit/mL (3 mL) subcutane s insulin pen 2- 00:00: 00 06-02 23:59 :00 No [id number] DM 16 unit DAILY 16 [facility] Med Classific ation: Endocrine Novolog FlexPen U-100 Insulin aspart 100 unit/mL (3 mL) subcutaneou s 2- 00:00: 00 06-02 23:59 :00 No [id number] DM 9 unit DAILY 9 unit DAILY (route: subcutaneo us) Med Classific ation: Endocrine Novolog FlexPen U-100 Insulin aspart 100 unit/mL (3 mL) subcutaneou s 2-07 00:00: 00 06-02 23:59 :00 No [id number] DM 11 unit DAILY 11 unit DAILY (route: subcutaneo us) Med Classific ation: Endocrine terazosin 5 mg capsule 2- 00:00: 00 06-02 23:59 :00 No [id number] BPH 1 capsule BEDTIME 1 capsule BEDTIME (route: oral) Med Classific ation: Cardiovas cular Therapy Agents carboxymeth ylcellulose sodium 0.5 % eye drops 2-07 00:00: 00 06-02 23:59 :00 No [id number] DRY EYES 1 drops 2 TIMES DAILY 1 drops 2 TIMES DAILY (route: ophthalmic (eye)) Med Classific ation: Ophthalmi c Agents ICaps AREDS 4,296 mcg-226 mg-90 mg capsule 2-07 00:00: 00 06-02 23:59 :00 No [id number] EYE HEALTH 1 capsule DAILY 1 capsule DAILY (route: oral) Med Classific ation: Electroly te Balance-N utritiona l Products Jardiance 25 mg tablet 2-07 00:00: 00 05-12 23:59 :00 No [id number] DM 1 tablet DAILY 1 tablet DAILY (route: oral) Med Classific ation: Endocrine Lasix 40 mg tablet 2-16 00:00: 00 06-02 23:59 :00 No [id number] CHF 1 tablet DAILY 1 tablet DAILY (route: oral) Med Classific ation: Cardiovas cular Therapy Agents Jardiance 10 mg tablet 05-12 00:00: 00 06-02 23:59 :00 No [id number] DIABETES 0.5 tablet DAILY 0.5 tablet DAILY (route: oral) Med Classific ation: Endocrine fenofibrate 54 mg tablet 05-19 00:00: 00 06-10 00:00 :00 No [id number] Per instruc tions Per instructio ns (route: oral) Med Classific ation: Cardiovas cular Therapy Agents acetaminoph en 500 mg tablet 06-10 00:00: 00 Yes [id number] PAIN 2 tablet EVERY 8 HOURS 2 tablet EVERY 8 HOURS (route: oral) Med Classific ation: Analgesic , Anti-infl ammatory or Antipyret ic Afrin (oxymetazol ine) 0.05 % nasal spray 06-10 00:00: 00 Yes [id number] NOSEBLEEDS 2 spray EVERY 4 HOURS 2 spray EVERY 4 HOURS (route: nasal) Med Classific ation: Respirato ry Therapy Agents albuterol sulfate HFA 90 mcg/actuati on aerosol inhaler 06-10 00:00: 00 Yes [id number] SHORTNESS OF BREATH 2 puff EVERY 6 HOURS 2 puff EVERY 6 HOURS (route: inhalation ) Med Classific ation: Respirato ry Therapy Agents amiodarone 200 mg tablet 06-10 00:00: 00 Yes [id number] IRREGULAR HEART BEAT 1 tablet DAILY 1 tablet DAILY (route: oral) Med Classific ation: Cardiovas cular Therapy Agents aspirin 81 mg tablet,nora yed release 06-10 00:00: 00 Yes [id number] HIGH LIPIDS 1 tablet DAILY 1 tablet DAILY (route: oral) Med Classific ation: Hematolog ical Agents betamethaso ne dipropionat e 0.05 % topical cream 06-10 00:00: 00 Yes [id number] PSORIASIS FLARE 3 inch 2 TIMES DAILY 3 inch 2 TIMES DAILY (route: topical) Med Classific ation: Dermatolo gical Eliquis 2.5 mg tablet 06-10 00:00: 00 Yes [id number] IRREGULAR HEART BEAT 1 tablet EVERY 12 HOURS 1 tablet EVERY 12 HOURS (route: oral) Med Classific ation: Hematolog ical Agents fenofibrate 54 mg tablet 06-10 00:00: 00 Yes [id number] HIGH LIPIDS 2 tablet EVERY AM 2 tablet EVERY AM (route: oral) Med Classific ation: Cardiovas cular Therapy Agents ferrous sulfate 325 mg (65 mg iron) tablet 06-10 00:00: 00 Yes [id number] ANEMIA 1 tablet EVERY 48 HOURS 1 tablet EVERY 48 HOURS (route: oral) Med Classific ation: Electroly te Balance-N utritiona l Products finasteride 5 mg tablet 06-10 00:00: 00 Yes [id number] ENLARGED PROSTATE 1 tablet BEDTIME 1 tablet BEDTIME (route: oral) Med Classific ation: Genitouri nary Therapy Jardiance 25 mg tablet 06-10 00:00: 00 Yes [id number] DIABETES 1 tablet DAILY 1 tablet DAILY (route: oral) Med Classific ation: Endocrine Lantus Solostar U-100 Insulin 100 unit/mL (3 mL) subcutaneou s pen 06-10 00:00: 00 Yes [id number] DIABETES 8 unit 2 TIMES DAILY 8 unit 2 TIMES DAILY (route: subcutaneo us) Med Classific ation: Endocrine metoprolol succinate ER 25 mg tablet,exte nded release 24 hr 06-10 00:00: 00 Yes [id number] IRREGULAR HEART BEAT 0.5 tablet 2 TIMES DAILY 0.5 tablet 2 TIMES DAILY (route: oral) Med Classific ation: Cardiovas cular Therapy Agents Miralax 17 gram/dose oral powder 06-10 00:00: 00 Yes [id number] CONSTIPATIO N 17 gram DAILY 17 gram DAILY (route: oral) Med Classific ation: Gastroint estinal Therapy Agents Novolog FlexPen U-100 Insulin aspart 100 unit/mL (3 mL) [facility] 06-10 00:00: 00 Yes [id number] DIABETES 2 unit BEFORE DINNER 2 unit BEFORE DINNER (route: [facility]) Med Classific ation: Endocrine Novolog FlexPen U-100 Insulin aspart 100 unit/mL (3 mL) [facility] 06-10 00:00: 00 Yes [id number] DIABETES 4 unit BEFORE LUNCH 4 unit BEFORE LUNCH (route: [facility]) Med Classific ation: Endocrine Novolog FlexPen U-100 Insulin aspart 100 unit/mL (3 mL) [facility] 06-10 00:00: 00 Yes [id number] DIABETES 4 unit BEFORE BREAKFAST 4 unit BEFORE BREAKFAST (route: [facility]) Med Classific ation: Endocrine oxycodone 5 mg tablet 06-10 00:00: 00 Yes [id number] SEVERE PAIN 1 tablet EVERY 4 HOURS 1 tablet EVERY 4 HOURS (route: oral) Med Classific ation: Analgesic , Anti-infl ammatory or Antipyret ic terazosin 5 mg capsule 06-10 00:00: 00 Yes [id number] ENLARGED PROSTATE 1 capsule BEDTIME 1 capsule BEDTIME (route: oral) Med Classific ation: Cardiovas cular Therapy Agents Wixela Inhub 250 mcg-50 mcg/dose powder for inhalation 06-10 00:00: 00 Yes [id number] COPD 1 inhalat ion DAILY 1 inhalation DAILY (route: inhalation ) Med Classific ation: Respirato ry Therapy Agents amoxicillin 875 mg-potassiu m clavulanate 125 mg tablet 06-16 00:00: 00 06-26 23:59 :00 No [id number] INFE 1 tablet 2 TIMES DAILY 1 tablet 2 TIMES DAILY (route: oral) Med Classific ation: Anti-Infe ctive Agents BETAMETHASO NE DIPROPIONAT E TOPICAL 2016-03 0-02 00:00: 00 04-03 09:59 :21 No 0.05 % 0.05 % (route: ) Med Classific ation: DERMATOLO GICAL TAMSULOSIN ORAL 8-09 00:00: 00 04-03 10:04 :12 No 0.4 mg 0.4 mg (route: ) Med Classific ation: GENITOURI NARY THERAPY COUMADIN ORAL 2016-03 0 00:00: 00 04-03 00:00 :00 No 5 mg1 tab Tues, th, sat, sun 5 mg1 tab Tues, th, sat, sun (route: ) Med Classific ation: HEMATOLOG ICAL AGENTS COUMADIN ORAL 04-02 00:00: 00 04-03 00:00 :00 No 5 mg1 1/2 tab M,w, fri 5 mg1 1/2 tab M,w, fri (route: ) Med Classific ation: HEMATOLOG ICAL AGENTS COUMADIN ORAL 04-03 00:00: 00 04-18 08:35 :00 No 5 mg1 TABLET DAILY 5 mg1 TABLET DAILY (route: ) Med Classific ation: HEMATOLOG ICAL AGENTS PREDNISONE ORAL 04-02 00:00: 00 04-09 00:00 :00 No 20 mg1 tab DAILY 20 mg1 tab DAILY (route: ) Med Classific ation: ENDOCRINE PACERONE ORAL 2016-03 00:00: 00 04-03 09:57 :41 No 200 mg 200 mg (route: ) Med Classific ation: CARDIOVAS CULAR THERAPY AGENTS DOXYCYCLINE HYCLATE ORAL 04-02 00:00: 00 04-18 00:00 :00 No 100 mg1 tab 2 TIMES DAILY 100 mg1 tab 2 TIMES DAILY (route: ) Med Classific ation: ANTI-INFE CTIVE AGENTS NIFEDIPINE ORAL 2016-03 00:00: 00 04-03 10:04 :07 No 30 mg 30 mg (route: ) Med Classific ation: CARDIOVAS CULAR THERAPY AGENTS GLIPIZIDE ORAL 2016-03 2-05 00:00: 00 04-10 00:00 :00 No 10 mg1 tab 2 TIMES DAILY 10 mg1 tab 2 TIMES DAILY (route: ) Med Classific ation: ENDOCRINE METFORMIN ORAL 2016-03 00:00: 00 04-02 00:00 :00 No 500 mg 500 mg (route: ) Med Classific ation: ENDOCRINE FREESTYLE UNISTIK 2 2016-03 00:00: 00 04-03 09:58 :56 No (route: ) Med Classific ation: MEDICAL SUPPLIES AND DURABLE MEDICAL EQUIPMENT (DME) BD INSULIN SYRINGE ULT-FINE II 2016-03 00:00: 00 04-03 10:00 :06 No 1 mL 31 gauge x 5/16 1 mL 31 gauge x 5/16 (route: ) FREESTYLE LITE STRIPS 2016-03 00:00: 00 04-03 09:58 :49 No (route: ) Med Classific ation: MEDICAL SUPPLIES AND DURABLE MEDICAL EQUIPMENT (DME) Vital Signs Vital Name Observation Time Observation Value Commen ts Temperature 2024-07-16 17:00:00.000 98.7 [degF] Temperature 2024-07-16 12:27:00.000 98.1 [degF] Temperature 2024-07-14 17:07:00.000 97.4 [degF] Temperature 2024-07-13 06:17:00.000 97.8 [degF] Temperature 2024-07-12 07:29:00.000 97.8 [degF] Temperature 2024-07-07 08:11:00.000 98 [degF] Temperature 2024-07-06 11:12:00.000 97.8 [degF] Temperature 2024-07-05 08:59:00.000 97.8 [degF] Temperature 2024-07-02 16:12:00.000 98.4 [degF] Temperature 2024-06-29 12:36:00.000 98.1 [degF] Temperature 2024-06-29 08:58:00.000 98 [degF] Temperature 2024-06-29 07:44:00.000 97.6 [degF] Temperature 2024-06-27 07:44:00.000 97.6 [degF] Temperature 2024-06-22 16:58:00.000 98 [degF] Temperature 2024-06-22 12:46:00.000 98.1 [degF] Temperature 2024-06-21 16:10:00.000 97.1 [degF] Temperature 2024-06-20 10:27:00.000 98.9 [degF] Temperature 2024-06-19 11:44:00.000 98.9 [degF] Temperature 2024-06-18 08:20:00.000 97.8 [degF] Temperature 2024-06-17 08:39:00.000 97.9 [degF] Temperature 2024-06-17 07:14:00.000 97.9 [degF] Temperature 2024-06-16 15:50:00.000 98.2 [degF] Temperature 2024-06-15 10:53:00.000 97.8 [degF] Temperature 2024-06-10 13:06:00.000 97.4 [degF] BMI (%) 2024-06-10 13:06:00.000 27 kg/m2 Height 2024-06-10 13:06:00.000 66 [in_us] Pulse 2024-07-16 17:00:00.000 75 /min Pulse 2024-07-16 12:27:00.000 74 /min Pulse 2024-07-14 17:07:00.000 90 /min Pulse 2024-07-13 06:17:00.000 90 /min Pulse 2024-07-12 07:29:00.000 60 /min Pulse 2024-07-07 08:11:00.000 71 /min Pulse 2024-07-06 11:12:00.000 80 /min Pulse 2024-07-05 08:59:00.000 70 /min Pulse 2024-07-02 16:12:00.000 87 /min Pulse 2024-06-29 12:36:00.000 74 /min Pulse 2024-06-29 08:58:00.000 70 /min Pulse 2024-06-29 07:44:00.000 70 /min Pulse 2024-06-27 07:44:00.000 80 /min Pulse 2024-06-22 16:58:00.000 88 /min Pulse 2024-06-22 12:46:00.000 75 /min Pulse 2024-06-21 16:10:00.000 80 /min Pulse 2024-06-20 10:27:00.000 83 /min Pulse 2024-06-19 11:44:00.000 77 /min Pulse 2024-06-18 08:20:00.000 60 /min Pulse 2024-06-17 08:39:00.000 88 /min Pulse 2024-06-17 07:14:00.000 66 /min Pulse 2024-06-16 15:50:00.000 75 /min Pulse 2024-06-15 10:53:00.000 68 /min Pulse 2024-06-10 13:06:00.000 73 /min O2 Saturation (%) 2024-07-16 17:00:00.000 98 % O2 Saturation (%) 2024-07-16 12:27:00.000 97 % O2 Saturation (%) 2024-07-14 17:07:00.000 96 % O2 Saturation (%) 2024-07-13 06:17:00.000 96 % O2 Saturation (%) 2024-07-12 07:29:00.000 96 % O2 Saturation (%) 2024-07-07 08:11:00.000 96 % O2 Saturation (%) 2024-07-06 11:12:00.000 93 % O2 Saturation (%) 2024-07-05 08:59:00.000 97 % O2 Saturation (%) 2024-07-02 16:12:00.000 95 % O2 Saturation (%) 2024-06-29 12:36:00.000 97 % O2 Saturation (%) 2024-06-29 08:58:00.000 96 % O2 Saturation (%) 2024-06-29 07:44:00.000 97 % O2 Saturation (%) 2024-06-27 07:44:00.000 96 % O2 Saturation (%) 2024-06-22 16:58:00.000 96 % O2 Saturation (%) 2024-06-22 12:46:00.000 98 % O2 Saturation (%) 2024-06-21 16:10:00.000 97 % O2 Saturation (%) 2024-06-20 10:27:00.000 95 % O2 Saturation (%) 2024-06-19 11:44:00.000 98 % O2 Saturation (%) 2024-06-18 08:20:00.000 97 % O2 Saturation (%) 2024-06-17 07:14:00.000 97 % O2 Saturation (%) 2024-06-16 15:50:00.000 96 % O2 Saturation (%) 2024-06-15 10:53:00.000 99 % O2 Saturation (%) 2024-06-10 13:06:00.000 96 % Respirations 2024-07-16 17:00:00.000 18 /min Respirations 2024-07-16 12:27:00.000 16 /min Respirations 2024-07-14 17:07:00.000 18 /min Respirations 2024-07-13 06:17:00.000 18 /min Respirations 2024-07-12 07:29:00.000 18 /min Respirations 2024-07-07 08:11:00.000 18 /min Respirations 2024-07-06 11:12:00.000 18 /min Respirations 2024-07-05 08:59:00.000 18 /min Respirations 2024-07-02 16:12:00.000 18 /min Respirations 2024-06-29 12:36:00.000 16 /min Respirations 2024-06-29 08:58:00.000 18 /min Respirations 2024-06-29 07:44:00.000 18 /min Respirations 2024-06-27 07:44:00.000 18 /min Respirations 2024-06-22 16:58:00.000 18 /min Respirations 2024-06-22 12:46:00.000 16 /min Respirations 2024-06-21 16:10:00.000 18 /min Respirations 2024-06-20 10:27:00.000 18 /min Respirations 2024-06-19 11:44:00.000 18 /min Respirations 2024-06-18 08:20:00.000 18 /min Respirations 2024-06-17 08:39:00.000 18 /min Respirations 2024-06-17 07:14:00.000 18 /min Respirations 2024-06-16 15:50:00.000 17 /min Respirations 2024-06-15 10:53:00.000 18 /min Respirations 2024-06-10 13:06:00.000 18 /min Weight (lbs) 2024-07-16 17:03:00.000 173.6 [lb_av] Weight (lbs) 2024-07-14 17:11:00.000 172 [lb_av] Weight (lbs) 2024-07-02 16:15:00.000 172.2 [lb_av] Weight (lbs) 2024-06-21 16:12:00.000 167.8 [lb_av] Weight (lbs) 2024-06-20 10:27:00.000 172.4 [lb_av] Weight (lbs) 2024-06-19 11:44:00.000 166.8 [lb_av] Weight (lbs) 2024-06-17 08:39:00.000 174 [lb_av] Weight (lbs) 2024-06-16 15:29:00.000 168.6 [lb_av] Weight (lbs) 2024-06-10 13:06:00.000 172 [lb_av] Systolic Blood Pressure 2024-07-16 17:00:00.000 126 mm [Hg] Systolic Blood Pressure 2024-07-16 12:27:00.000 128 mm [Hg] Systolic Blood Pressure 2024-07-14 17:07:00.000 128 mm [Hg] Systolic Blood Pressure 2024-07-13 06:17:00.000 128 mm [Hg] Systolic Blood Pressure 2024-07-12 07:29:00.000 114 mm [Hg] Systolic Blood Pressure 2024-07-07 08:11:00.000 112 mm [Hg] Systolic Blood Pressure 2024-07-06 11:12:00.000 130 mm [Hg] Systolic Blood Pressure 2024-07-05 08:59:00.000 132 mm [Hg] Systolic Blood Pressure 2024-07-02 16:12:00.000 136 mm [Hg] Systolic Blood Pressure 2024-06-29 12:36:00.000 132 mm [Hg] Systolic Blood Pressure 2024-06-29 08:58:00.000 128 mm [Hg] Systolic Blood Pressure 2024-06-29 07:44:00.000 130 mm [Hg] Systolic Blood Pressure 2024-06-27 07:44:00.000 140 mm [Hg] Systolic Blood Pressure 2024-06-22 16:58:00.000 140 mm [Hg] Systolic Blood Pressure 2024-06-22 12:46:00.000 124 mm [Hg] Systolic Blood Pressure 2024-06-21 16:10:00.000 112 mm [Hg] Systolic Blood Pressure 2024-06-20 10:27:00.000 112 mm [Hg] Systolic Blood Pressure 2024-06-19 11:44:00.000 118 mm [Hg] Systolic Blood Pressure 2024-06-18 08:20:00.000 112 mm [Hg] Systolic Blood Pressure 2024-06-17 08:39:00.000 114 mm [Hg] Systolic Blood Pressure 2024-06-17 07:14:00.000 108 mm [Hg] Systolic Blood Pressure 2024-06-16 15:50:00.000 120 mm [Hg] Systolic Blood Pressure 2024-06-15 10:53:00.000 120 mm [Hg] Systolic Blood Pressure 2024-06-10 13:06:00.000 108 mm [Hg] Diastolic Blood Pressure 2024-07-16 17:00:00.000 60 mm [Hg] Diastolic Blood Pressure 2024-07-16 12:27:00.000 76 mm [Hg] Diastolic Blood Pressure 2024-07-14 17:07:00.000 60 mm [Hg] Diastolic Blood Pressure 2024-07-13 06:17:00.000 50 mm [Hg] Diastolic Blood Pressure 2024-07-12 07:29:00.000 50 mm [Hg] Diastolic Blood Pressure 2024-07-07 08:11:00.000 50 mm [Hg] Diastolic Blood Pressure 2024-07-06 11:12:00.000 55 mm [Hg] Diastolic Blood Pressure 2024-07-05 08:59:00.000 54 mm [Hg] Diastolic Blood Pressure 2024-07-02 16:12:00.000 58 mm [Hg] Diastolic Blood Pressure 2024-06-29 12:36:00.000 80 mm [Hg] Diastolic Blood Pressure 2024-06-29 08:58:00.000 80 mm [Hg] Diastolic Blood Pressure 2024-06-29 07:44:00.000 50 mm [Hg] Diastolic Blood Pressure 2024-06-27 07:44:00.000 50 mm [Hg] Diastolic Blood Pressure 2024-06-22 16:58:00.000 80 mm [Hg] Diastolic Blood Pressure 2024-06-22 12:46:00.000 60 mm [Hg] Diastolic Blood Pressure 2024-06-21 16:10:00.000 56 mm [Hg] Diastolic Blood Pressure 2024-06-20 10:27:00.000 60 mm [Hg] Diastolic Blood Pressure 2024-06-19 11:44:00.000 60 mm [Hg] Diastolic Blood Pressure 2024-06-18 08:20:00.000 60 mm [Hg] Diastolic Blood Pressure 2024-06-17 08:39:00.000 56 mm [Hg] Diastolic Blood Pressure 2024-06-17 07:14:00.000 44 mm [Hg] Diastolic Blood Pressure 2024-06-16 15:50:00.000 57 mm [Hg] Diastolic Blood Pressure 2024-06-15 10:53:00.000 40 mm [Hg] Diastolic Blood Pressure 2024-06-10 13:06:00.000 50 mm [Hg] Plan of Treatment Planned Activity Planned Date Details Comments Future Scheduled Test RN TO OBSE RVE, ASSESS, EVALUATE, AND DEVELOP AN INDIVIDUALIZED PLAN OF CARE. AGENCY MAY ACCEPT ORDERS FROM CONSULTING PHYSICIANS RN TO OBSERVE AND ASSESS, GRAIN ELEVATOR OPERATOR/COURT SUPERVISOR TO OBSERVE FOR RISK FOR FALLS AND INSTRUCT IN FALL PREVENTION, HOME SAFETY, MEDICATION MANAGEMENT, INFECTION PREVENTION, AND NUTRITION MANAGEMENT. RN/GRAIN ELEVATOR OPERATOR/COURT SUPERVISOR NURSE MAY PERFORM O2 SATURATION LEVEL ON ADMISSION AND PRN FOR RN TO ASSESS/GRAIN ELEVATOR OPERATOR TO OBSERVE PATIENT, WITH NOTIFICATION TO THE PHYSICIAN IF SATURATION IS 90% IN THE ABSENCE OF MORE SPECIFIC PARAMETERS FROM THE PHYSICIAN. AGENCY MAY PERFORM A RESUMPTION OF CARE VISIT FOLLOWING ANY HOSPITAL ADMISSION. RN/GRAIN ELEVATOR OPERATOR/COURT SUPERVISOR TO MONITOR CO-MORBID CONDITIONS LISTED ON THE PLAN OF CARE AND ANY NEW CONDITIONS THAT PRESENT THEMSELVES DURING THIS EPISODE TO IDENTIFY CHANGES AND INTERVENE TO MINIMIZE COMPLICATIONS. [code = RN TO OBSERVE, ASSESS, EVALUATE, AND DEVELOP AN INDIVIDUALIZED PLAN OF CARE. AGENCY MAY ACCEPT ORDERS FROM CONSULTING PHYSICIANS RN TO OBSERVE AND ASSESS, GRAIN ELEVATOR OPERATOR/COURT SUPERVISOR TO OBSERVE FOR RISK FOR FALLS AND INSTRUCT IN FALL PREVENTION, HOME SAFETY, MEDICATION MANAGEMENT, INFECTION PREVENTION, AND NUTRITION MANAGEMENT. RN/GRAIN ELEVATOR OPERATOR/COURT SUPERVISOR NURSE MAY PERFORM O2 SATURATION LEVEL ON ADMISSION AND PRN FOR RN TO ASSESS/GRAIN ELEVATOR OPERATOR TO OBSERVE PATIENT, WITH NOTIFICATION TO THE PHYSICIAN IF SATURATION IS 90% IN THE ABSENCE OF MORE SPECIFIC PARAMETERS FROM THE PHYSICIAN. AGENCY MAY PERFORM A RESUMPTION OF CARE VISIT FOLLOWING ANY HOSPITAL ADMISSION. RN/GRAIN ELEVATOR OPERATOR/COURT SUPERVISOR TO MONITOR CO-MORBID CONDITIONS LISTED ON THE PLAN OF CARE AND ANY NEW CONDITIONS THAT PRESENT THEMSELVES DURING THIS EPISODE TO IDENTIFY CHANGES AND INTERVENE TO MINIMIZE COMPLICATIONS.] Future Scheduled Test MEDICATION MANAGEMENT; RN/GRAIN ELEVATOR OPERATOR/COURT SUPERVISOR TO REVIEW MEDICATIONS FOR INTERACTIONS, EFFECTIVENESS OF DRUG THERAPY, AND SIGNS/SYMPTOMS OF ADVERSE REACTIONS. MAY INSTRUCT AND REINFORCE MEDICATION TEACHING RELATED TO THE USE OF MEDICATIONS, DOSAGE, FREQUENCY, PURPOSE, SIDE EFFECTS, AND TO REPORT COMPLICATIONS. [code = MEDICATION MANAGEMENT; RN/GRAIN ELEVATOR OPERATOR/COURT SUPERVISOR TO REVIEW MEDICATIONS FOR INTERACTIONS, EFFECTIVENESS OF DRUG THERAPY, AND SIGNS/SYMPTOMS OF ADVERSE REACTIONS. MAY INSTRUCT AND REINFORCE MEDICATION TEACHING RELATED TO THE USE OF MEDICATIONS, DOSAGE, FREQUENCY, PURPOSE, SIDE EFFECTS, AND TO REPORT COMPLICATIONS.] Future Scheduled Test RISK FOR H OSPITALIZATION; RN TO ASSESS/TEACH, COURT SUPERVISOR/GRAIN ELEVATOR OPERATOR TO OBSERVE/TEACH PATIENT/CAREGIVER ON RISK FOR HOSPITALIZATION/EMERGENCY ROOM VISITS, TEACH SIGNS AND SYMPTOMS THAT PUT PATIENT AT RISK, WHEN TO NOTIFY NURSE/PHYSICIAN OF COMPLICATIONS/DECLINE, AND WHEN TO CALL 911. [code = RISK FOR HOSPITALIZATION; RN TO ASSESS/TEACH, COURT SUPERVISOR/GRAIN ELEVATOR OPERATOR TO OBSERVE/TEACH PATIENT/CAREGIVER ON RISK FOR HOSPITALIZATION/EMERGENCY ROOM VISITS, TEACH SIGNS AND SYMPTOMS THAT PUT PATIENT AT RISK, WHEN TO NOTIFY NURSE/PHYSICIAN OF COMPLICATIONS/DECLINE, AND WHEN TO CALL 911.] Future Scheduled Test CARDIOVASC ULAR SYSTEM; RN TO ASSESS/TEACH, GRAIN ELEVATOR OPERATOR/COURT SUPERVISOR TO OBSERVE/TEACH RELATED TO ALTERED CARDIOVASCULAR STATUS TO MINIMIZE COMPLICATIONS AND REDUCE HOSPITALIZATION. [code = CARDIOVASCULAR SYSTEM; RN TO ASSESS/TEACH, GRAIN ELEVATOR OPERATOR/COURT SUPERVISOR TO OBSERVE/TEACH RELATED TO ALTERED CARDIOVASCULAR STATUS TO MINIMIZE COMPLICATIONS AND REDUCE HOSPITALIZATION.] Future Scheduled Test HEART FAIL URE; RN TO ASSESS/TEACH, GRAIN ELEVATOR OPERATOR/COURT SUPERVISOR TO OBSERVE/TEACH CARDIOPULMONARY SYSTEM TO IDENTIFY SIGNS OF DECOMPENSATION AND INTERVENE TO MINIMIZE THE SEVERITY OF FLUID OVERLOAD. OBSERVE PATIENT ABILITY TO MONITOR AND RECORD DAILY WEIGHTS AND VITAL SIGNS, INCLUDING PULSE AND BLOOD PRESSURE; RECORD PATIENT REPORTED WEIGHT, OR WEIGH PATIENT NEEDED. REPORT INCREASED EDEMA OR WEIGHT GAIN OF >2 LBS IN 1 DAY OR >5 LBS IN 1 WEEK OR 5LBS OR MORE OVER TARGET WEIGHT. MAY MEASURE ABDOMINAL GIRTH IF UNABLE TO WEIGH. EF 25-30% [code = HEART FAILURE; RN TO ASSESS/TEACH, GRAIN ELEVATOR OPERATOR/COURT SUPERVISOR TO OBSERVE/TEACH CARDIOPULMONARY SYSTEM TO IDENTIFY SIGNS OF DECOMPENSATION AND INTERVENE TO MINIMIZE THE SEVERITY OF FLUID OVERLOAD. OBSERVE PATIENT ABILITY TO MONITOR AND RECORD DAILY WEIGHTS AND VITAL SIGNS, INCLUDING PULSE AND BLOOD PRESSURE; RECORD PATIENT REPORTED WEIGHT, OR WEIGH PATIENT NEEDED. REPORT INCREASED EDEMA OR WEIGHT GAIN OF >2 LBS IN 1 DAY OR >5 LBS IN 1 WEEK OR 5LBS OR MORE OVER TARGET WEIGHT. MAY MEASURE ABDOMINAL GIRTH IF UNABLE TO WEIGH. EF 25-30%] Future Scheduled Test ARRHYTHMIA MANAGEMENT; RN TO ASSESS AND TEACH, GRAIN ELEVATOR OPERATOR/COURT SUPERVISOR TO OBSERVE AND TEACH WARNING SIGNS AND SYMPTOMS TO AVOID HOSPITALIZATION. [code = ARRHYTHMIA MANAGEMENT; RN TO ASSESS AND TEACH, GRAIN ELEVATOR OPERATOR/COURT SUPERVISOR TO OBSERVE AND TEACH WARNING SIGNS AND SYMPTOMS TO AVOID HOSPITALIZATION.] Future Scheduled Test PAIN MANAG EMENT; RN TO ASSESS AND TEACH, COURT SUPERVISOR/GRAIN ELEVATOR OPERATOR TO OBSERVE AND TEACH AND PROVIDE EDUCATION ON PAIN MANAGEMENT TECHNIQUES. [code = PAIN MANAGEMENT; RN TO ASSESS AND TEACH, COURT SUPERVISOR/GRAIN ELEVATOR OPERATOR TO OBSERVE AND TEACH AND PROVIDE EDUCATION ON PAIN MANAGEMENT TECHNIQUES.] Future Scheduled Test SKIN INTEG RITY RN TO ASSESS AND TEACH, GRAIN ELEVATOR OPERATOR/COURT SUPERVISOR TO OBSERVE AND TEACH INTEGUMENTARY STATUS TO IDENTIFY CHANGES AND INTERVENE TO MINIMIZE COMPLICATIONS. PROVIDE SKILLED TEACHING OF GENERAL WOUND AND SKIN CARE AND PREVENTION RELATED TO ACTUAL ALTERED SKIN INTEGRITY [code = SKIN INTEGRITY RN TO ASSESS AND TEACH, GRAIN ELEVATOR OPERATOR/COURT SUPERVISOR TO OBSERVE AND TEACH INTEGUMENTARY STATUS TO IDENTIFY CHANGES AND INTERVENE TO MINIMIZE COMPLICATIONS. PROVIDE SKILLED TEACHING OF GENERAL WOUND AND SKIN CARE AND PREVENTION RELATED TO ACTUAL ALTERED SKIN INTEGRITY ] Future Scheduled Test DIABETES M ANAGEMENT; RN TO ASSESS AND TEACH, COURT SUPERVISOR/GRAIN ELEVATOR OPERATOR TO OBSERVE AND TEACH INSTRUCTIONS OF DIABETIC CARE TO INCLUDE: DIET CCHO, HEART HEALTHY SKIN CARE, SIGNS AND SYMPTOMS OF HYPO/HYPERGLYCEMIA, PROPER ADMINISTRATION OF DIABETIC MEDICATION. RN/COURT SUPERVISOR/GRAIN ELEVATOR OPERATOR TO INSTRUCT ON DIABETIC FOOT CARE AND MONITOR FOR SKIN LESIONS ON LOWER EXTREMITIES. BLOOD GLUCOSE TESTING TID FREQ. RN TO ASSESS AND TEACH, COURT SUPERVISOR/GRAIN ELEVATOR OPERATOR TO OBSERVE AND TEACH PATIENT/CAREGIVER ABILITY TO PERFORM AND RECORD BLOOD GLUCOSE TESTING ORDERED AND TO REPORT ABNORMAL FINDINGS TO PHYSICIAN. RN/COURT SUPERVISOR/GRAIN ELEVATOR OPERATOR MAY PERFORM BLOOD GLUCOSE TEST NEEDED. RN/COURT SUPERVISOR/GRAIN ELEVATOR OPERATOR TO REPORT TO PHYSICIAN BLOOD GLUCOSE READINGS GREATER THAN 200 OR LESS THAN 80 RN/COURT SUPERVISOR/GRAIN ELEVATOR OPERATOR TO INSTRUCT PATIENT ON IMPORTANCE OF HGBA1C MONITORING, KIDNEY FUNCTION TEST, EYE AND FOOT EXAMS. [code = DIABETES MANAGEMENT; RN TO ASSESS AND TEACH, COURT SUPERVISOR/GRAIN ELEVATOR OPERATOR TO OBSERVE AND TEACH INSTRUCTIONS OF DIABETIC CARE TO INCLUDE: DIET CCHO, HEART HEALTHY SKIN CARE, SIGNS AND SYMPTOMS OF HYPO/HYPERGLYCEMIA, PROPER ADMINISTRATION OF DIABETIC MEDICATION. RN/COURT SUPERVISOR/GRAIN ELEVATOR OPERATOR TO INSTRUCT ON DIABETIC FOOT CARE AND MONITOR FOR SKIN LESIONS ON LOWER EXTREMITIES. BLOOD GLUCOSE TESTING TID FREQ. RN TO ASSESS AND TEACH, COURT SUPERVISOR/GRAIN ELEVATOR OPERATOR TO OBSERVE AND TEACH PATIENT/CAREGIVER ABILITY TO PERFORM AND RECORD BLOOD GLUCOSE TESTING ORDERED AND TO REPORT ABNORMAL FINDINGS TO PHYSICIAN. RN/COURT SUPERVISOR/GRAIN ELEVATOR OPERATOR MAY PERFORM BLOOD GLUCOSE TEST NEEDED. RN/COURT SUPERVISOR/GRAIN ELEVATOR OPERATOR TO REPORT TO PHYSICIAN BLOOD GLUCOSE READINGS GREATER THAN 200 OR LESS THAN 80 RN/COURT SUPERVISOR/GRAIN ELEVATOR OPERATOR TO INSTRUCT PATIENT ON IMPORTANCE OF HGBA1C MONITORING, KIDNEY FUNCTION TEST, EYE AND FOOT EXAMS.] Future Scheduled Test FALL REDUC TION MANAGEMENT; RN TO ASSESS AND OBSERVE, GRAIN ELEVATOR OPERATOR/COURT SUPERVISOR TO OBSERVE FALL RISK FACTORS AND EDUCATE PATIENT/CAREGIVER ON STRATEGIES TO MINIMIZE THE RISK OF FALLING. [code = FALL REDUCTION MANAGEMENT; RN TO ASSESS AND OBSERVE, GRAIN ELEVATOR OPERATOR/COURT SUPERVISOR TO OBSERVE FALL RISK FACTORS AND EDUCATE PATIENT/CAREGIVER ON STRATEGIES TO MINIMIZE THE RISK OF FALLING.] Future Scheduled Test RN/GRAIN ELEVATOR OPERATOR/COURT SUPERVISOR TO PERFORM/TEACH WOUND CARE TO LEFT MEDIAL CALF SURGICAL AREA: CLEANSE WITH NORMAL SALINE, APPLY ABD PAD APPLY ROLLED GAUZE SECURE WITH TAPE COVER WITH TUBI DANCE PROFESSOR, CHANGE DRESSING EVERY 2 DAYS AND PRN FOR SOILAGE OR DISPLACEMENT PATIENT TO PROVIDE CARE IN NURSING ABSENCE RN/GRAIN ELEVATOR OPERATOR/COURT SUPERVISOR TO PERFORM/TEACH WOUND CARE TO LEFT LATERAL CALF SURGICAL AREA: OBSERVE FOR S/SX INFECTION OR DEHISCENCE REPORT TO SURGEON IMMEDIATELY PATIENT TO PROVIDE CARE IN NURSING ABSENCE [code = RN/GRAIN ELEVATOR OPERATOR/COURT SUPERVISOR TO PERFORM/TEACH WOUND CARE TO LEFT MEDIAL CALF SURGICAL AREA: CLEANSE WITH NORMAL SALINE, APPLY ABD PAD APPLY ROLLED GAUZE SECURE WITH TAPE COVER WITH TUBI DANCE PROFESSOR, CHANGE DRESSING EVERY 2 DAYS AND PRN FOR SOILAGE OR DISPLACEMENT PATIENT TO PROVIDE CARE IN NURSING ABSENCE RN/GRAIN ELEVATOR OPERATOR/COURT SUPERVISOR TO PERFORM/TEACH WOUND CARE TO LEFT LATERAL CALF SURGICAL AREA: OBSERVE FOR S/SX INFECTION OR DEHISCENCE REPORT TO SURGEON IMMEDIATELY PATIENT TO PROVIDE CARE IN NURSING ABSENCE ] Goal Patient Goal - H EAL INCISION, BACK TO NORMAL Goal Provider Goal - A PLAN OF CARE WILL BE ESTABLISHED THAT MEETS THE PATIENTS NEEDS. PATIENT WILL DEMONSTRATE OXYGEN SATURATION WITHIN NORMAL LIMITS OR PATIENTS OPTIMAL LEVEL ESTABLISHED BY THE PHYSICIAN THROUGHOUT CARE. CHANGES TO CO-MORBID CONDITIONS AND ANY NEW CONDITIONS WILL BE IDENTIFIED AND REPORTED TO THE PHYSICIAN. Goal Provider Goal - PATIENT/CAREGIVER TO VERBALIZE, AND CONSISTENTLY DEMONSTRATE EFFECTIVE, SAFE MANAGEMENT OF MEDICATION INCLUDING KNOWLEDGE OF EFFECTIVENESS, POTENTIAL SIDE EFFECTS AND DRUG REACTIONS AND WHEN TO CONTACT THE APPROPRIATE CARE PROVIDER. PATIENT/CAREGIVER WILL BE ABLE TO VERBALIZE UNDERSTANDING OF MEDICATION REGIMEN AND ACCURATELY TAKE MEDICATIONS PRESCRIBED WITHOUT ADVERSE EFFECTS BY EOE Goal Provider Goal - PATIENT/CAREGIVER WILL VERBALIZE UNDERSTANDING OF SIGNS AND SYMPTOMS THAT PUT THE PATIENT AT RISK FOR HOSPITALIZATION /EMERGENCY ROOM VISITS, WHEN TO NOTIFY NURSE/PHYSICIAN OF COMPLICATIONS/DECLINE AND WHEN TO CALL 911. Goal Provider Goal - PATIENT / CAREGIVER WILL VERBALIZE/DEMONSTRATE UNDERSTANDING OF MEASURES TO MANAGE ALTERED CARDIOVASCULAR STATUS BY EOE Goal Provider Goal - PATIENT / CAREGIVER WILL VERBALIZE/DEMONSTRATE AN ABILITY TO ADHERE TO SELF-MANAGEMENT OF HF TO MINIMIZE COMPLICATIONS AND AVOID HOSPITALIZATION BY END OF EPISODE. Goal Provider Goal - PATIENT / CAREGIVER WILL VERBALIZE/DEMONSTRATE AN ABILITY TO ADHERE TO SELF-MANAGEMENT OF HEART ARRHYTHMIA TO MINIMIZE COMPLICATIONS AND AVOID HOSPITALIZATION BY END OF EPISODE. Goal Provider Goal - PATIENT / CAREGIVER WILL VERBALIZE / DEMONSTRATE UNDERSTANDING OF PAIN CONTROL MEASURES BY EOE Goal Provider Goal - CHANGES IN SKIN INTEGRITY STATUS WILL BE IDENTIFIED AND REPORTED TO THE PHYSICIAN FOR PROMPT INTERVENTION. PATIENT / CAREGIVER WILL VERBALIZE/DEMONSTRATE ADEQUATE KNOWLEDGE OF INTEGUMENTARY STATUS AND APPROPRIATE MEASURES TO PROMOTE SKIN INTEGRITY AND PREVENT INJURY BY EOE Goal Provider Goal - PATIENT / CAREGIVER WILL VERBALIZE / DEMONSTRATE AN ABILITY TO ADHERE TO SELF-MANAGEMENT OF DIABETES MANAGEMENT BY EOE. Goal Provider Goal - PATIENT/CAREGIVER WILL VERBALIZE/DEMONSTRATE UNDERSTANDING OF FALL RISK FACTORS AND IMPLEMENT STRATEGIES TO MINIMIZE FALL RISK. PATIENT/CAREGIVER WILL VERBALIZE/DEMONSTRATE AN ABILITY TO ADHERE TO FALL REDUCTION SELF-MANAGEMENT AND LIFE-STYLE CHANGES BY EOE Goal Provider Goal - PATIENT / CAREGIVER WILL VERBALIZE / DEMONSTRATE ABILITY TO PERFORM WOUND CARE. WOUND STATUS WILL IMPROVE EVIDENCED BY A DECREASE IN SIZE, DRAINAGE, ABSENCE OF INFECTION, AND DECREASED PAIN BY END OF EPISODE. Encounters Start Date/Time End Date/Time Encounter Type Admission Type Attending [facility] Care Department Encounter ID Discharge Date Discharge Status Discharge Condition Discharge Reason Percent Goals Met 2024-06-10 00:00:00 2024-08-08 00:00:00 Outpatient [facility] [id number]
--- OUTSIDE RECORDS SUMMARY | 2024-07-20 08:32 | XMS_ITS | Encounter Summary ---
Author Name [facility] [place] Organization [facility] [place] Address [address] [place] [id number] Care Team Providers Care Yarn Salvager Name Role Phone AJAY APODACA Primary Care [...] PART A Nov 22, 2006 PART A [id number] [phone] TONY LOGAN PATIENT MEDICARE (WNR) MEDICARE (M) PART B Nov 22, 2006 PART B [id number] TONY LOGAN PATIENT MEDICARE (WNR) MEDICARE (M) PART A Nov 22, 2006 PART A [id number] TONY LOGAN PATIENT MEDICARE (WNR) MEDICARE (M) PART B Nov 22, 2006 PART B [id number] TONY LOGAN PATIENT FOR LIFE TFL* Apr 20, 2014 [id number] SUKHJINDER LOGAN JR PATIENT Selected Encounter This section includes the information on record at [place] for the Encounter. Date/Time Encounter Type Encounter Description Reason Provider Source May 17, 2024 02:00 PM MTMS BY KEEGAN ESCOBAR 15 MIN CLINICAL PHARMACY ICD-10-CM E11.8 Type 2 diabetes mellitus with unspecified complications VICTORINA TIRADO [facility] Encounter Template Text not used by [place] Assessments - Encounter Diagnoses This section includes the primary and secondary diagnoses documented for the Encounter. Date/Time Primary/Secondary Diagnosis Diagnosis Name Provider Source May 17, 2024 03:29 PM PRIMARY Type 2 diabetes mellitus with unspecified complications VICTORINA TIRADO [facility] Plan of Treatment: Future Appointments (+ 6 months) and Future Tests (+/- 45 days) The Plan of Treatment section includes future care activities for the patient from all [place] [facility]. This section includes future appointments and future orders which are active, pending or scheduled. Future Appointments This section includes appointments that were scheduled to occur 6 months from the date of the Encounter, up to a maximum of 20 appointments. The data comes from all [facility]. Appointment Date/Time Appointment Type Appointme nt Facility Name Jul 08, 2024 09:00 AM AMBULATORY - MEDICINE [facility] Jul 13, 2024 11:30 AM [facility] July 26, 2024 03:00 PM [facility] Aug 25, 2024 01:30 PM [facility] Oct 20, 2024 03:00 PM AMBULATORY MEDICINE [facility] Active, Pending, and Scheduled Orders This section includes a listing of several types of active, pending, and scheduled orders, including clinic medications orders, diagnostic test orders, procedure orders and consult orders; where the start date of the order is 45 days before the date of the Encounter or 45 days after the date of theEncounter. The data comes from all [facility]. Test Date/Time Test Type Test Details Facility Name Jun 25, 2024 12:00 AM Laboratory - Chemi stry Order BASIC METABOLIC PANEL (non-fasting) BLOOD (SST-SERUM) [facility] Social History: Smoking Status (Most current) and Tobacco Use (All prior to encounter date) This section includes the most current, and the historical, smoking and tobacco- related health factors from the [place] facility where the Encounter took place. Current Smoking Status This section includes the most current smoking, or tobacco-related health factor, from the [place] facility where the Encounter took place. Date/Time Current Smoking Status Comment Facil it Jan 06, 2024 09:30 AM VA-TOBACCO QUIT 15 YRS OR MORE [place] [facility] [place] [facility] Tobacco Use History This section includes a history of the smoking, or tobacco-related health factors, that were collected on or before the date of the Encounter. The data comes from the [place] facility where the Encounter took place. Date/Time Smoking Status/Tobac co Use Comment Facility Jan 06, 2024 09:30 AM VA-TOBACCO QUIT 15 YRS OR MORE [facility] [place] [facility] Dec 24, 2022 10:30 AM VA-TOBACCO FORMER USER [facility] [place] [facility] Dec 24, 2022 10:30 AM VA-TOBACCO QUIT 15 YRS OR MORE [facility] [place] [facility] Dec 24, 2021 10:00 AM VA-TOBACCO FORMER USER [facility] [place] [facility] Dec 24, 2021 10:00 AM VA-TOBACCO QUIT 5 TO < 15 YRS [facility] [place] [facility] Dec 14, 2020 08:30 AM VA-TOBACCO FORMER USER [facility] [place] [facility] Dec 14, 2020 08:30 AM VA-TOBACCO QUIT 5 TO < 15 YRS [facility] [place] [facility] Nov 15, 2019 11:00 AM VA-TOBACCO FORMER USER [facility] [place] [facility] Nov 15, 2019 11:00 AM VA-TOBACCO QUIT 5 TO < 15 YRS [facility] [place] [facility] Oct 20, 2017 08:19 AM VA-TOBACCO FORMER USER [facility] [place] [facility] Oct 20, 2017 08:19 AM VA-TOBACCO QUIT 5 TO < 15 YRS [facility] [place] [facility] Sep 04, 2017 11:09 AM QUIT TOBACCO USE > 7 YEARS AGO [facility] [place] [facility] Oct 16, 2016 09:08 AM QUIT TOBACCO USE > 7 YEARS AGO [facility] [place] [facility] Feb 20, 2015 10:58 AM QUIT TOBACCO USE > 7 YEARS AGO quit 2009-cigarettes and cigars for 45 years [facility] Advance Directives: All historical and current Section Date Range: From patient's date of to the date document was created. This section includes ALL of a patient's completed or amended [place] Advance and Rescinded Directives. The entries below indicate that a directive exists for the patient, but an actual copy is not included with this document. The data comes from all [place] facilities. Date Advance Directives Provider Source Mar 23, 2014 ADVANCE DIRECTIVE ROSALINDA SHELBY [facility] Encounter Notes: All associated encounter notes This section contains the clinical notes associated to the Encounter. Date/Time Encounter Note(s) Provider Source May 19, 2024 12:20 PM ADDENDUM: LOCAL TITLE: Addendum STANDARD TITLE: ADDENDUM DATE OF NOTE: MAY 19, 2024@12:20:51 ENTRY DATE: MAY 19, 2024@12:20:52 AUTHOR: VICTORINA TIRADO EXP COSIGNER: URGENCY: STATUS: COMPLETED Please cancel the following per 08/02/24 @1330 /es/ VICTORINA TIRADO PHARMD,[facility]PS CLINICAL PHARMACY PRACTITIONER Signed: 05/19/2024 12:21 Receipt Acknowledged By: 05/19/2024 13:13 /es/ STUART CAMPOS RN --- Original Document --- 05/17/24 PHARMACY CLINIC NOTE: TONY Evy LOGAN, 83 yo WHITE MALE, presents for [id number] initial visit for diabetes management. Today, pt reports DM since 1981. Possible A.O. 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 Mother had DM. Dr. Powell - PCP via civilian provider. Denies rashes, burning on urination, foul smell or blood in urine. Once or twice a month will have low bg - takes glucose tabs or OJ. Current diabetes medications: - insulin glargine 18 units BID - insulin aspart 13 (eggs), 14 or 16 for cereal/ 8 units lunch/ 10 for dinner - empagliflozin 25 mg Previous diabetes medications: - metformin Medication Adherence: - once in awhile will skip lunch insulin - rare Diet Patterns: patient eats on avg. -x/day: Wake: 5571-4408 B: 0830 eggs/ toast/ fruit, next day will have cereal fruit and toast L: 1200 homemade soup and crackers D: 1630 chicken or pork, rice, potato, pasta Bed: 2130,2200 Snacks: nuts and fruit Drinks: water 90 oz, coffee 1 cup/day Alcohol: none Tobacco: former- quit 2007 Exercise: tries, just getting back to normal since pneumonia Occupation: retired - [employer] SMBG: Name: Tony Logan Date of : 1940 Report Period: 05/04/2024 - 05/17/2024 (14 days) Generated: 05/17/2024 Time CGM Active: 97% Glucose Statistics and Targets Average Glucose: 190 mg/dL Glucose Management Indicator (GMI): 7.9% Glucose Variability (%CV): 29.7% Target Range: 70 - 180 mg/dL Time in Ranges Very High: >250 mg/dL --- 15% High: 181 - 250 mg/dL --- 34% Target Range: 70 - 180 mg/dL --- 51% Low: 54 - 69 mg/dL --- 0% Very Low: <54 mg/dL --- 0% Avgs: 12am 2am 4am 6am 8am 10am 172 157 143 154 209 256 12pm 2pm 4pm 6pm 8pm 10pm 233 208 175 185 198 190 SMBG assessment: improved since visit on 05/05/24 w/ endocrine. Largest variation with BF- would benefit from less CHO. No hypos HYPOGLYCEMIC Events: 0 in last 2 weeks - Hypoglycemia recognition & treatment reviewed: Yes Allergies/ADR: Patient has answered NKA Active and Recently Outpatient Medications (including Supplies): Active Outpatient Medications Status 1) ACCU-CHEK [...] BELOW 70 5) GLUCOSE SENSOR FREESTYLE LINK 3 USE 1 SENSOR DIRECTED ACTIVE EVERY 14 DAYS 6) INSULIN,ASPART(EQV-NOVLG)100UN/M L FLXPEN INJECT DIRECTED HOLD 100UNIT/ML SUBCUTANEOUSLY THREE TIMES A DAY 13-16 UNITS BREAKFAST BASED ON MEAL, 8 UNITS LUNCH, AND 10 UNITS DINNER Indication: FOR DIABETES 7) INSULIN,GLARGINE 100 UNT/ML 3ML SOLOSTAR INJECT 18 UNITS HOLD SUBCUTANEOUSLY TWICE DAILY Indication: FOR DIABETES 8) LANCET,SOFTCLIX USE 1 LANCET DIRECTED THREE TIMES A DAY ACTIVE TO TEST BLOOD SUGAR Indication: TYPE 2 DIABETES 9) LIDOCAINE 5% OINT APPLY LIBERAL AMOUNT TOPICALLY TWICE DAILY ACTIVE NEEDED Indication: NERVE PAIN Inactive Outpatient Medications Status 1) ACCU-CHEK GUIDE ME (GLUCOSE) METER USE METER TO TEST BLOOD SUGARS THREE TIMES A DAY Indication: TYPE 2 DIABETES 2) EMPAGLIFLOZIN 10MG TAB TAKE ONE-HALF TABLET BY MOUTH ONCE DISCONTINUED DAILY Indication: FOR TYPE 2 DIABETES MELLITUS 3) EMPAGLIFLOZIN 25MG TAB TAKE ONE-HALF TABLET BY MOUTH ONCE DISCONTINUED DAILY (EDIT) Indication: FOR TYPE 2 DIABETES MELLITUS 4) GLUCOSE SENSOR FREESTYLE LINK 2 USE 1 SENSOR DIRECTED DISCONTINUED EVERY 14 DAYS 5) GLUCOSE SENSOR FREESTYLE LINK 3 USE 1 SENSOR DIRECTED DISCONTINUED EVERY 14 DAYS (EDIT) 6) INSULIN,ASPART(EQV-NOVLG)100UN/M L FLXPEN INJECT 7 UNITS DISCONTINUED SUBCUTANEOUSLY EVERY MORNING AND INJECT 8 UNITS AT NOON AND (EDIT) INJECT 15 UNITS EVERY EVENING BEFORE SUPPER Indication: FOR DIABETES 7) INSULIN,ASPART(EQV-NOVLG)100UN/M L FLXPEN INJECT 18 UNITS DISCONTINUED SUBCUTANEOUSLY EVERY MORNING AND INJECT 7 UNITS AT NOON AND (EDIT) INJECT 11 UNITS EVERY EVENING BEFORE SUPPER Indication: FOR DIABETES 8) INSULIN,ASPART(EQV-NOVLG)100UN/M L FLXPEN INJECT DIRECTED DISCONTINUED SUBCUTANEOUSLY THREE TIMES A DAY 10-14 UNITS BREAKFAST (EDIT) BASED ON MEAL, 7 UNITS NOON, 10 UNITS DINNER. Indication: FOR DIABETES 9) INSULIN,ASPART(EQV-NOVLG)100UN/M L FLXPEN INJECT DIRECTED DISCONTINUED SUBCUTANEOUSLY THREE TIMES A DAY 8 UNITS FOR EGGS, 12 UNITS (EDIT) FOR CEREAL AM, 5 UNITS NOON, 9 UNITS DINNER Indication: FOR DIABETES 10) INSULIN,ASPART(EQV-NOVLG)100UN/M L FLXPEN INJECT DIRECTED DISCONTINUED SUBCUTANEOUSLY THREE TIMES A DAY 11-15 UNITS BREAKFAST (EDIT) BASED ON MEAL, 7 UNITS LUNCH, AND 10 UNITS DINNER Indication: FOR DIABETES 11) INSULIN,ASPART(EQV-NOVLG)100UN/M L FLXPEN INJECT DIRECTED DISCONTINUED SUBCUTANEOUSLY THREE TIMES A DAY 9 UNITS FOR EGGS, 15 UNITS FOR CEREAL BREAKFAST, 7 UNITS NOON, 10 UNITS DINNER Indication: FOR DIABETES 12) INSULIN,GLARGINE-YFGN 100UNIT/ML PEN 3ML INJECT 10 UNITS DISCONTINUED SUBCUTANEOUSLY TWICE DAILY Indication: FOR DIABETES 13) INSULIN,GLARGINE-YFGN 100UNIT/ML PEN 3ML INJECT 13 UNITS DISCONTINUED SUBCUTANEOUSLY TWICE DAILY Indication: FOR DIABETES 14) INSULIN,GLARGINE-YFGN 100UNIT/ML PEN 3ML INJECT 38 UNITS DISCONTINUED SUBCUTANEOUSLY AT BEDTIME (EDIT) Indication: FOR DIABETES Active Non-VA Medications Status 1) Non-VA AMIODARONE HCL 200MG TAB 200MG BY MOUTH TWICE DAILY ACTIVE 2) Non-VA EMPAGLIFLOZIN 25MG TAB 25MG BY MOUTH ONCE DAILY ACTIVE Indication: congestive heart failure 3) Non-VA FENOFIBRATE 54MG TAB 108MG BY [...] CAP 5MG BY MOUTH ONCE DAILY ACTIVE 31 Total Medications Labs: CHEM 7 TREND LAB CUMULATIVE SELECTED Collection [...] 4.8 103 22 175 H 28 H eGFR CKD-EPI 202003/29/24 08:38 37 L SERUM LIVER PANEL TREND Collection DT Spec AST ALT T BILI ALK BEE T. PROT ALBUMIN 01/29/2024 09:49 SERUM 30 31 0.4 66 7.4 3.2 L 08/06/2023 07:31 SERUM 22 24 0.7 61 6.4 3.0 L 06/19/2022 07:35 SERUM 26 25 0.5 55 6.9 3.7 12/24/2021 09:37 SERUM 22 20 0.3 60 7.2 3.7 06/20/2021 08:13 SERUM 39 H 40 0.4 65 6.7 3.2 L HEMOGLOBIN A1C TREND Collection DT Spec HGBA1c 03/29/2024 08:38 BLOOD 8.1 H 11/05/2023 07:31 BLOOD 8.1 H 08/06/2023 07:31 BLOOD 7.7 H 05/05/2023 07:48 BLOOD 7.2 H 01/03/2023 09:54 BLOOD 7.8 H LIPID PANEL TREND Collection DT Spec CHOL HDL CHO/HDL LDL-d LDL-c TRIG 03/29/2024 08:38 SERUM 99 36 L 2.8 47 78 11/05/2023 07:31 SERUM 140 49 2.9 72 94 05/05/2023 07:48 SERUM 86 31 L 2.8 40 74 06/19/2022 07:36 SERUM 119 33 L 3.6 61 126 12/24/2021 09:37 SERUM 146 38 L 3.8 76 161 H Vitals: Ht: 66 in [167.6 cm] (11/13/2023 09:26) Wt: 180 lb [81.65 kg] (01/06/2024 09:24) BMI: BMI: 29.1 BP: 132/74 (01/06/2024 15:45) HR: 78 (01/06/2024 09:24) Assessment: DIABETES: -A1c is above goal of <8%: 8.1% 03/29/24 CARDIOVASCULAR: Goal BP = <130/80 mmHg -Current BP is132/74 (01/06/2024 15:45) -Lipids: within goal- atorvastatin 10 mg PREVENTIVE CARE: - Most recent visit to Podiatry: 06/2024 - Most recent visit to Optometry:02/2024 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 Plan: Reviewed meal choices for BF and insulin dose, encouraged to take 15-16 units of insulin aspart if having cereal or oatmeal and toas. DM education 07/2024. - Medication management - CONTINUE - insulin glargine 18 units BID - CONTINUE - insulin aspart 13 (eggs), 15- 16 for cereal/ 8 units lunch/ 10 for dinner - CONTINUE - empagliflozin 25 mg - Continue to SMBG w/ link - Monitor for s/sx hypoglycemia and contact clinic if BG consistently <70mg/dL - Healthy dietary and lifestyle modifications encouraged - Repeat A1c: 07/2024 EDUCATION -A shared decision-making approach was used in the development of this plan, involving the [place], clinician, and any caregivers present. The [place] was provided the opportunity express questions or concerns, and the plan was adjusted as needed to address these concerns. -Reviewed with [place] any new medications, changes to the medication list, education, and plan from today's visit. Patient (and/or caregiver) verbalized understanding of the plan, including possible known risks and benefits, and had no additional questions. RTC:08/25/24 @1330 Time Spent: 30 mins PBM PharmD Pharmacotherapy Rem V12: PHARMACIST INTERVENTIONS: TYPE 2 DIABETES MELLITUS Medication monitoring, no dosage change required, continue to monitor and assess Medication reconciliation (changes to active VA and non-VA medication lists to reconcile differences) Changes to medication lists made Update dose, frequency, duration and/or dosage form of medication Add or renew medication /jus/ VICTORINA TIRADO PHARMD,BCPS CLINICAL PHARMACY PRACTITIONER Signed: 05/17/2024 15:30 05/17/2024 ADDENDUM STATUS: COMPLETED Will ask [facility] to please schedule patient for: [X] [facility] PHARM PACT 3 RTC order placed. Appointment Length: _30__ minutes. 08/25/24 @1330 Thank you! /tyree TIRADO PHARMD,BCPS CLINICAL PHARMACY PRACTITIONER Signed: 05/17/2024 15:30 Receipt Acknowledged By: 05/18/2024 09:26 /jus/ STEFFANY swanson LEFTY Carrera HERMINIO 05/17/2024 ADDENDUM STATUS: COMPLETED Pt will be seen by DM education 07/26/24, and CPP 08/25/24. Would you like to keep or cancel 08/02/24 for endocrine apt? Pt is ok with cancelling if that is ok with provider /tyree TIRADO PHARMD,BCPS CLINICAL PHARMACY PRACTITIONER Signed: 05/17/2024 15:33 Receipt Acknowledged By: 05/18/2024 07:44 /tyree BUTTS MD STAFF PHYSICIAN 05/18/2024 ADDENDUM STATUS: COMPLETED Please do cancel May appointment with me. Thank you. /tyree BUTTS MD STAFF PHYSICIAN Signed: 05/18/2024 07:45 Receipt Acknowledged By: 05/19/2024 12:20 /jus/ VICTORINA TIRADO PHARMD,[facility] CLINICAL PHARMACY PRACTITIONER VICTORINA TIRADO [place] [facility] [place] [facility] May 18, 2024 07:45 AM ADDENDUM: LOCAL TITLE: Addendum STANDARD TITLE: ADDENDUM DATE OF NOTE: MAY 18, 2024@07:45:05 ENTRY DATE: MAY 18, 2024@07:45:06 AUTHOR: MIAH BUTTS COSIGNER: URGENCY: STATUS: COMPLETED Please do cancel May appointment with me. Thank you. /tyree BUTTS MD STAFF PHYSICIAN Signed: 05/18/2024 07:45 Receipt Acknowledged By: 05/19/2024 12:20 /jus/ VICTORINA TIRADO PHARMD,[facility] CLINICAL PHARMACY PRACTITIONER --- Original Document --- 05/17/24 PHARMACY CLINIC NOTE: TONY Evy VORAJANEE, 83 yo WHITE MALE, presents for odih-bs-aaia initial visit for diabetes management. Today, pt reports DM since 1981. Possible A.O. 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 Mother had DM. Dr. Powell - PCP via civilian provider. Denies rashes, burning on urination, foul smell or blood in urine. Once or twice a month will have low bg - takes glucose tabs or OJ. Current diabetes medications: - insulin glargine 18 units BID - insulin aspart 13 (eggs), 14 or 16 for cereal/ 8 units lunch/ 10 for dinner - empagliflozin 25 mg Previous diabetes medications: - metformin Medication Adherence: - once in awhile will skip lunch insulin - rare Diet Patterns: patient eats on avg. -x/day: Wake: 6124-4019 B: 0830 eggs/ toast/ fruit, next day will have cereal fruit and toast L: 1200 homemade soup and crackers D: 1630 chicken or pork, rice, potato, pasta Bed: 2130,2200 Snacks: nuts and fruit Drinks: water 90 oz, coffee 1 cup/day Alcohol: none Tobacco: former- quit 2007 Exercise: tries, just getting back to normal since pneumonia Occupation: retired - [employer] SMBG: Name: Tony Logan Date of : 1940 Report Period: 05/04/2024 - 05/17/2024 (14 days) Generated: 05/17/2024 Time CGM Active: 97% Glucose Statistics and Targets Average Glucose: 190 mg/dL Glucose Management Indicator (GMI): 7.9% Glucose Variability (%CV): 29.7% Target Range: 70 - 180 mg/dL Time in Ranges Very High: >250 mg/dL --- 15% High: 181 - 250 mg/dL --- 34% Target Range: 70 - 180 mg/dL --- 51% Low: 54 - 69 mg/dL --- 0% Very Low: <54 mg/dL --- 0% Avgs: 12am 2am 4am 6am 8am 10am 172 157 143 154 209 256 12pm 2pm 4pm 6pm 8pm 10pm 233 208 175 185 198 190 SMBG assessment: improved since visit on 05/05/24 w/ endocrine. Largest variation with BF- would benefit from less CHO. No hypos HYPOGLYCEMIC Events: 0 in last 2 weeks - Hypoglycemia recognition & treatment reviewed: Yes Allergies/ADR: Patient has answered NKA Active and Recently Outpatient Medications (including Supplies): Active Outpatient Medications Status 1) ACCU-CHEK [...] BELOW 70 5) GLUCOSE SENSOR FREESTYLE LINK 3 USE 1 SENSOR DIRECTED ACTIVE EVERY 14 DAYS 6) INSULIN,ASPART(EQV-NOVLG)100UN/M L FLXPEN INJECT DIRECTED HOLD 100UNIT/ML SUBCUTANEOUSLY THREE TIMES A DAY 13-16 UNITS BREAKFAST BASED ON MEAL, 8 UNITS LUNCH, AND 10 UNITS DINNER Indication: FOR DIABETES 7) INSULIN,GLARGINE 100 UNT/ML 3ML SOLOSTAR INJECT 18 UNITS HOLD SUBCUTANEOUSLY TWICE DAILY Indication: FOR DIABETES 8) LANCET,SOFTCLIX USE 1 LANCET DIRECTED THREE TIMES A DAY ACTIVE TO TEST BLOOD SUGAR Indication: TYPE 2 DIABETES 9) LIDOCAINE 5% OINT APPLY LIBERAL AMOUNT TOPICALLY TWICE DAILY ACTIVE NEEDED Indication: NERVE PAIN Inactive Outpatient Medications Status 1) ACCU-CHEK GUIDE ME (GLUCOSE) METER USE METER TO TEST BLOOD SUGARS THREE TIMES A DAY Indication: TYPE 2 DIABETES 2) EMPAGLIFLOZIN 10MG TAB TAKE ONE-HALF TABLET BY MOUTH ONCE DISCONTINUED DAILY Indication: FOR TYPE 2 DIABETES MELLITUS 3) EMPAGLIFLOZIN 25MG TAB TAKE ONE-HALF TABLET BY MOUTH ONCE DISCONTINUED DAILY (EDIT) Indication: FOR TYPE 2 DIABETES MELLITUS 4) GLUCOSE SENSOR FREESTYLE LINK 2 USE 1 SENSOR DIRECTED DISCONTINUED EVERY 14 DAYS 5) GLUCOSE SENSOR FREESTYLE LINK 3 USE 1 SENSOR DIRECTED DISCONTINUED EVERY 14 DAYS (EDIT) 6) INSULIN,ASPART(EQV-NOVLG)100UN/M L FLXPEN INJECT 7 UNITS DISCONTINUED SUBCUTANEOUSLY EVERY MORNING AND INJECT 8 UNITS AT NOON AND (EDIT) INJECT 15 UNITS EVERY EVENING BEFORE SUPPER Indication: FOR DIABETES 7) INSULIN,ASPART(EQV-NOVLG)100UN/M L FLXPEN INJECT 18 UNITS DISCONTINUED SUBCUTANEOUSLY EVERY MORNING AND INJECT 7 UNITS AT NOON AND (EDIT) INJECT 11 UNITS EVERY EVENING BEFORE SUPPER Indication: FOR DIABETES 8) INSULIN,ASPART(EQV-NOVLG)100UN/M L FLXPEN INJECT DIRECTED DISCONTINUED SUBCUTANEOUSLY THREE TIMES A DAY 10-14 UNITS BREAKFAST (EDIT) BASED ON MEAL, 7 UNITS NOON, 10 UNITS DINNER. Indication: FOR DIABETES 9) INSULIN,ASPART(EQV-NOVLG)100UN/M L FLXPEN INJECT DIRECTED DISCONTINUED SUBCUTANEOUSLY THREE TIMES A DAY 8 UNITS FOR EGGS, 12 UNITS (EDIT) FOR CEREAL AM, 5 UNITS NOON, 9 UNITS DINNER Indication: FOR DIABETES 10) INSULIN,ASPART(EQV-NOVLG)100UN/M L FLXPEN INJECT DIRECTED DISCONTINUED SUBCUTANEOUSLY THREE TIMES A DAY 11-15 UNITS BREAKFAST (EDIT) BASED ON MEAL, 7 UNITS LUNCH, AND 10 UNITS DINNER Indication: FOR DIABETES 11) INSULIN,ASPART(EQV-NOVLG)100UN/M L FLXPEN INJECT DIRECTED DISCONTINUED SUBCUTANEOUSLY THREE TIMES A DAY 9 UNITS FOR EGGS, 15 UNITS FOR CEREAL BREAKFAST, 7 UNITS NOON, 10 UNITS DINNER Indication: FOR DIABETES 12) INSULIN,GLARGINE-YFGN 100UNIT/ML PEN 3ML INJECT 10 UNITS DISCONTINUED SUBCUTANEOUSLY TWICE DAILY Indication: FOR DIABETES 13) INSULIN,GLARGINE-YFGN 100UNIT/ML PEN 3ML INJECT 13 UNITS DISCONTINUED SUBCUTANEOUSLY TWICE DAILY Indication: FOR DIABETES 14) INSULIN,GLARGINE-YFGN 100UNIT/ML PEN 3ML INJECT 38 UNITS DISCONTINUED SUBCUTANEOUSLY AT BEDTIME (EDIT) Indication: FOR DIABETES Active Non-VA Medications Status 1) Non-VA AMIODARONE HCL 200MG TAB 200MG BY MOUTH TWICE DAILY ACTIVE 2) Non-VA EMPAGLIFLOZIN 25MG TAB 25MG BY MOUTH ONCE DAILY ACTIVE Indication: congestive heart failure 3) Non-VA FENOFIBRATE 54MG TAB 108MG BY [...] CAP 5MG BY MOUTH ONCE DAILY ACTIVE 31 Total Medications Labs: CHEM 7 TREND LAB CUMULATIVE SELECTED Collection [...] 4.8 103 22 175 H 28 H eGFR CKD-EPI 202003/29/24 08:38 37 L SERUM LIVER PANEL TREND Collection DT Spec AST ALT T BILI ALK BEE T. PROT ALBUMIN 01/29/2024 09:49 SERUM 30 31 0.4 66 7.4 3.2 L 08/06/2023 07:31 SERUM 22 24 0.7 61 6.4 3.0 L 06/19/2022 07:35 SERUM 26 25 0.5 55 6.9 3.7 12/24/2021 09:37 SERUM 22 20 0.3 60 7.2 3.7 06/20/2021 08:13 SERUM 39 H 40 0.4 65 6.7 3.2 L HEMOGLOBIN A1C TREND Collection DT Spec HGBA1c 03/29/2024 08:38 BLOOD 8.1 H 11/05/2023 07:31 BLOOD 8.1 H 08/06/2023 07:31 BLOOD 7.7 H 05/05/2023 07:48 BLOOD 7.2 H 01/03/2023 09:54 BLOOD 7.8 H LIPID PANEL TREND Collection DT Spec CHOL HDL CHO/HDL LDL-d LDL-c TRIG 03/29/2024 08:38 SERUM 99 36 L 2.8 47 78 11/05/2023 07:31 SERUM 140 49 2.9 72 94 05/05/2023 07:48 SERUM 86 31 L 2.8 40 74 06/19/2022 07:36 SERUM 119 33 L 3.6 61 126 12/24/2021 09:37 SERUM 146 38 L 3.8 76 161 H Vitals: Ht: 66 in [167.6 cm] (11/13/2023 09:26) Wt: 180 lb [81.65 kg] (01/06/2024 09:24) BMI: BMI: 29.1 BP: 132/74 (01/06/2024 15:45) HR: 78 (01/06/2024 09:24) Assessment: DIABETES: -A1c is above goal of <8%: 8.1% 03/29/24 CARDIOVASCULAR: Goal BP = <130/80 mmHg -Current BP is132/74 (01/06/2024 15:45) -Lipids: within goal- atorvastatin 10 mg PREVENTIVE CARE: - Most recent visit to Podiatry: 06/2024 - Most recent visit to Optometry:02/2024 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 Plan: Reviewed meal choices for BF and insulin dose, encouraged to take 15-16 units of insulin aspart if having cereal or oatmeal and toas. DM education 07/2024. - Medication management - CONTINUE - insulin glargine 18 units BID - CONTINUE - insulin aspart 13 (eggs), 15- 16 for cereal/ 8 units lunch/ 10 for dinner - CONTINUE - empagliflozin 25 mg - Continue to SMBG w/ link - Monitor for s/sx hypoglycemia and contact clinic if BG consistently <70mg/dL - Healthy dietary and lifestyle modifications encouraged - Repeat A1c: 07/2024 EDUCATION -A shared decision-making approach was used in the development of this plan, involving the [place], clinician, and any caregivers present. The was provided the opportunity express questions or concerns, and the plan was adjusted as needed to address these concerns. -Reviewed with any new medications, changes to the medication list, education, and plan from today's visit. Patient (and/or caregiver) verbalized understanding of the plan, including possible known risks and benefits, and had no additional questions. RTC:08/25/24 @1330 Time Spent: 30 mins PBM PharmStephie Pharmacotherapy Rem V12: PHARMACIST INTERVENTIONS: TYPE 2 DIABETES MELLITUS Medication monitoring, no dosage change required, continue to monitor and assess Medication reconciliation (changes to active VA and non-VA medication lists to reconcile differences) Changes to medication lists made Update dose, frequency, duration and/or dosage form of medication Add or renew medication /tyree TIRADO PHARMD,[facility] CLINICAL PHARMACY PRACTITIONER Signed: 05/17/2024 15:30 05/17/2024 ADDENDUM STATUS: COMPLETED Will ask AMSA to please schedule patient for: [X] [facility] PHARM PACT 3 RTC order placed. Appointment Length: _30__ minutes. 08/25/24 @1330 Thank you! /tyree TIRADO PHARMD,[facility]INICAL PHARM[facility] PRACTITIONER Signed: 05/17/2024 15:30 Receipt Acknowledged By: 05/18/2024 09:26 /jus/ STEFFANY BURNS for LEFTY DURHAM 05/17/2024 ADDENDUM STATUS: COMPLETED Pt will be seen by DM education 07/26/24, and CPP 08/25/24. Would you like to keep or cancel 08/02/24 for endocrine apt? Pt is ok with cancelling if that is ok with provider /tyree TIRADO PHARMD,[facility] CLINICAL PHARMACY PRACTITIONER Signed: 05/17/2024 15:33 Receipt Acknowledged By: 05/18/2024 07:44 /jus/ MIAH BUTTS MD STAFF PHYSICIAN MIAH BUTTS [facility] May 17, 2024 03:30 PM ADDENDUM: LOCAL TITLE: Addendum STANDARD TITLE: ADDENDUM DATE OF NOTE: MAY 17, 2024@15:30:50 ENTRY DATE: MAY 17, 2024@15:30:50 AUTHOR: VICTORINA TIRADO COSIGNER: URGENCY: STATUS: COMPLETED Pt will be seen by DM education 07/26/24, and CPP 08/25/24. Would you like to keep or cancel 08/02/24 for endocrine apt? Pt is ok with cancelling if that is ok with provider /jus/ VICTORINA TIRADO PHARMD,[facility] CLINICAL PHARMACY PRACTITIONER Signed: 05/17/2024 15:33 Receipt Acknowledged By: 05/18/2024 07:44 /es/ MIAH BUTTS MD STAFF PHYSICIAN --- Original Document --- 05/17/24 PHARMACY CLINIC NOTE: TONY Ratliff RAVINDER, 83 yo WHITE MALE, presents for imeu-tu-mynq initial visit for diabetes management. Today, pt reports DM since 1981. Possible A.O. 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 Mother had DM. Dr. Powell - PCP via civilian provider. Denies rashes, burning on urination, foul smell or blood in urine. Once or twice a month will have low bg - takes glucose tabs or OJ. Current diabetes medications: - insulin glargine 18 units BID - insulin aspart 13 (eggs), 14 or 16 for cereal/ 8 units lunch/ 10 for dinner - empagliflozin 25 mg Previous diabetes medications: - metformin Medication Adherence: - once in awhile will skip lunch insulin - rare Diet Patterns: patient eats on avg. -x/day: Wake: 6602-1042 B: 0830 eggs/ toast/ fruit, next day will have cereal fruit and toast L: 1200 homemade soup and crackers D: 1630 chicken or pork, rice, potato, pasta Bed: 2130,2200 Snacks: nuts and fruit Drinks: water 90 oz, coffee 1 cup/day Alcohol: none Tobacco: former- quit 2007 Exercise: tries, just getting back to normal since pneumonia Occupation: retired - [employer] SMBG: Name: Tony Logan Date of : 1940 Report Period: 05/04/2024 - 05/17/2024 (14 days) Generated: 05/17/2024 Time CGM Active: 97% Glucose Statistics and Targets Average Glucose: 190 mg/dL Glucose Management Indicator (GMI): 7.9% Glucose Variability (%CV): 29.7% Target Range: 70 - 180 mg/dL Time in Ranges Very High: >250 mg/dL --- 15% High: 181 - 250 mg/dL --- 34% Target Range: 70 - 180 mg/dL --- 51% Low: 54 - 69 mg/dL --- 0% Very Low: <54 mg/dL --- 0% Avgs: 12am 2am 4am 6am 8am 10am 172 157 143 154 209 256 12pm 2pm 4pm 6pm 8pm 10pm 233 208 175 185 198 190 SMBG assessment: improved since visit on 05/05/24 w/ endocrine. Largest variation with BF- would benefit from less CHO. No hypos HYPOGLYCEMIC Events: 0 in last 2 weeks - Hypoglycemia recognition & treatment reviewed: Yes Allergies/ADR: Patient has answered NKA Active and Recently Outpatient Medications (including Supplies): Active Outpatient Medications Status 1) ACCU-CHEK [...] BELOW 70 5) GLUCOSE SENSOR FREESTYLE LINK 3 USE 1 SENSOR DIRECTED ACTIVE EVERY 14 DAYS 6) INSULIN,ASPART(EQV-NOVLG)100UN/M L FLXPEN INJECT DIRECTED HOLD 100UNIT/ML SUBCUTANEOUSLY THREE TIMES A DAY 13-16 UNITS BREAKFAST BASED ON MEAL, 8 UNITS LUNCH, AND 10 UNITS DINNER Indication: FOR DIABETES 7) INSULIN,GLARGINE 100 UNT/ML 3ML SOLOSTAR INJECT 18 UNITS HOLD SUBCUTANEOUSLY TWICE DAILY Indication: FOR DIABETES 8) LANCET,SOFTCLIX USE 1 LANCET DIRECTED THREE TIMES A DAY ACTIVE TO TEST BLOOD SUGAR Indication: TYPE 2 DIABETES 9) LIDOCAINE 5% OINT APPLY LIBERAL AMOUNT TOPICALLY TWICE DAILY ACTIVE NEEDED Indication: NERVE PAIN Inactive Outpatient Medications Status 1) ACCU-CHEK GUIDE ME (GLUCOSE) METER USE METER TO TEST BLOOD SUGARS THREE TIMES A DAY Indication: TYPE 2 DIABETES 2) EMPAGLIFLOZIN 10MG TAB TAKE ONE-HALF TABLET BY MOUTH ONCE DISCONTINUED DAILY Indication: FOR TYPE 2 DIABETES MELLITUS 3) EMPAGLIFLOZIN 25MG TAB TAKE ONE-HALF TABLET BY MOUTH ONCE DISCONTINUED DAILY (EDIT) Indication: FOR TYPE 2 DIABETES MELLITUS 4) GLUCOSE SENSOR FREESTYLE LINK 2 USE 1 SENSOR DIRECTED DISCONTINUED EVERY 14 DAYS 5) GLUCOSE SENSOR FREESTYLE LINK 3 USE 1 SENSOR DIRECTED DISCONTINUED EVERY 14 DAYS (EDIT) 6) INSULIN,ASPART(EQV-NOVLG)100UN/M L FLXPEN INJECT 7 UNITS DISCONTINUED SUBCUTANEOUSLY EVERY MORNING AND INJECT 8 UNITS AT NOON AND (EDIT) INJECT 15 UNITS EVERY EVENING BEFORE SUPPER Indication: FOR DIABETES 7) INSULIN,ASPART(EQV-NOVLG)100UN/M L FLXPEN INJECT 18 UNITS DISCONTINUED SUBCUTANEOUSLY EVERY MORNING AND INJECT 7 UNITS AT NOON AND (EDIT) INJECT 11 UNITS EVERY EVENING BEFORE SUPPER Indication: FOR DIABETES 8) INSULIN,ASPART(EQV-NOVLG)100UN/M L FLXPEN INJECT DIRECTED DISCONTINUED SUBCUTANEOUSLY THREE TIMES A DAY 10-14 UNITS BREAKFAST (EDIT) BASED ON MEAL, 7 UNITS NOON, 10 UNITS DINNER. Indication: FOR DIABETES 9) INSULIN,ASPART(EQV-NOVLG)100UN/M L FLXPEN INJECT DIRECTED DISCONTINUED SUBCUTANEOUSLY THREE TIMES A DAY 8 UNITS FOR EGGS, 12 UNITS (EDIT) FOR CEREAL AM, 5 UNITS NOON, 9 UNITS DINNER Indication: FOR DIABETES 10) INSULIN,ASPART(EQV-NOVLG)100UN/M L FLXPEN INJECT DIRECTED DISCONTINUED SUBCUTANEOUSLY THREE TIMES A DAY 11-15 UNITS BREAKFAST (EDIT) BASED ON MEAL, 7 UNITS LUNCH, AND 10 UNITS DINNER Indication: FOR DIABETES 11) INSULIN,ASPART(EQV-NOVLG)100UN/M L FLXPEN INJECT DIRECTED DISCONTINUED SUBCUTANEOUSLY THREE TIMES A DAY 9 UNITS FOR EGGS, 15 UNITS FOR CEREAL BREAKFAST, 7 UNITS NOON, 10 UNITS DINNER Indication: FOR DIABETES 12) INSULIN,GLARGINE-YFGN 100UNIT/ML PEN 3ML INJECT 10 UNITS DISCONTINUED SUBCUTANEOUSLY TWICE DAILY Indication: FOR DIABETES 13) INSULIN,GLARGINE-YFGN 100UNIT/ML PEN 3ML INJECT 13 UNITS DISCONTINUED SUBCUTANEOUSLY TWICE DAILY Indication: FOR DIABETES 14) INSULIN,GLARGINE-YFGN 100UNIT/ML PEN 3ML INJECT 38 UNITS DISCONTINUED SUBCUTANEOUSLY AT BEDTIME (EDIT) Indication: FOR DIABETES Active Non-VA Medications Status 1) Non-VA AMIODARONE HCL 200MG TAB 200MG BY MOUTH TWICE DAILY ACTIVE 2) Non-VA EMPAGLIFLOZIN 25MG TAB 25MG BY MOUTH ONCE DAILY ACTIVE Indication: congestive heart failure 3) Non-VA FENOFIBRATE 54MG TAB 108MG BY [...] CAP 5MG BY MOUTH ONCE DAILY ACTIVE 31 Total Medications Labs: CHEM 7 TREND LAB CUMULATIVE SELECTED Collection [...] 4.8 103 22 175 H 28 H eGFR CKD-EPI 202003/29/24 08:38 37 L SERUM LIVER PANEL TREND Collection DT Spec AST ALT T BILI ALK BEE T. PROT ALBUMIN 01/29/2024 09:49 SERUM 30 31 0.4 66 7.4 3.2 L 08/06/2023 07:31 SERUM 22 24 0.7 61 6.4 3.0 L 06/19/2022 07:35 SERUM 26 25 0.5 55 6.9 3.7 12/24/2021 09:37 SERUM 22 20 0.3 60 7.2 3.7 06/20/2021 08:13 SERUM 39 H 40 0.4 65 6.7 3.2 L HEMOGLOBIN A1C TREND Collection DT Spec HGBA1c 03/29/2024 08:38 BLOOD 8.1 H 11/05/2023 07:31 BLOOD 8.1 H 08/06/2023 07:31 BLOOD 7.7 H 05/05/2023 07:48 BLOOD 7.2 H 01/03/2023 09:54 BLOOD 7.8 H LIPID PANEL TREND Collection DT Spec CHOL HDL CHO/HDL LDL-d LDL-c TRIG 03/29/2024 08:38 SERUM 99 36 L 2.8 47 78 11/05/2023 07:31 SERUM 140 49 2.9 72 94 05/05/2023 07:48 SERUM 86 31 L 2.8 40 74 06/19/2022 07:36 SERUM 119 33 L 3.6 61 126 12/24/2021 09:37 SERUM 146 38 L 3.8 76 161 H Vitals: Ht: 66 in [167.6 cm] (11/13/2023 09:26) Wt: 180 lb [81.65 kg] (01/06/2024 09:24) BMI: BMI: 29.1 BP: 132/74 (01/06/2024 15:45) HR: 78 (01/06/2024 09:24) Assessment: DIABETES: -A1c is above goal of <8%: 8.1% 03/29/24 CARDIOVASCULAR: Goal BP = <130/80 mmHg -Current BP is132/74 (01/06/2024 15:45) -Lipids: within goal- atorvastatin 10 mg PREVENTIVE CARE: - Most recent visit to Podiatry: 06/2024 - Most recent visit to Optometry:02/2024 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 Plan: Reviewed meal choices for BF and insulin dose, encouraged to take 15-16 units of insulin aspart if having cereal or oatmeal and toas. DM education 07/2024. - Medication management - CONTINUE - insulin glargine 18 units BID - CONTINUE - insulin aspart 13 (eggs), 15- 16 for cereal/ 8 units lunch/ 10 for dinner - CONTINUE - empagliflozin 25 mg - Continue to SMBG w/ link - Monitor for s/sx hypoglycemia and contact clinic if BG consistently <70mg/dL - Healthy dietary and lifestyle modifications encouraged - Repeat A1c: 07/2024 EDUCATION -A shared decision-making approach was used in the development of this plan, involving the [place], clinician, and any caregivers present. The [place] was provided the opportunity express questions or concerns, and the plan was adjusted as needed to address these concerns. -Reviewed with any new medications, changes to the medication list, education, and plan from today's visit. Patient (and/or caregiver) verbalized understanding of the plan, including possible known risks and benefits, and had no additional questions. RTC:08/25/24 @1330 Time Spent: 30 mins PBM PharmD Pharmacotherapy Rem V12: PHARMACIST INTERVENTIONS: TYPE 2 DIABETES MELLITUS Medication monitoring, no dosage change required, continue to monitor and assess Medication reconciliation (changes to active VA and non-VA medication lists to reconcile differences) Changes to medication lists made Update dose, frequency, duration and/or dosage form of medication Add or renew medication /tyree TIRADO PHARMD,[facility] CLINICAL PHARMACY PRACTITIONER Signed: 05/17/2024 15:30 05/17/2024 ADDENDUM STATUS: COMPLETED Will ask AMSA to please schedule patient for: [X] [facility] PHARM PACT 3 RTC order placed. Appointment Length: _30__ minutes. 08/25/24 @1330 Thank you! /tyree TIRADO PHARMD, [facility] CLINICAL PHARMACY PRACTITIONER Signed: 05/17/2024 15:30 Receipt Acknowledged By: * AWAITING SIGNATURE * LEFTY DURHAM JODI A [place] [facility] May 17, 2024 03:30 PM ADDENDUM: LOCAL TITLE: Addendum STANDARD TITLE: ADDENDUM DATE OF NOTE: MAY 17, 2024@15:30:13 ENTRY DATE: MAY 17, 2024@15:30:14 AUTHOR: VICTORINA TIRADO EXP COSIGNER: URGENCY: STATUS: COMPLETED Will ask AMSA to please schedule patient for: [X] [facility] PHARM PACT 3 RTC order placed. Appointment Length: _30__ minutes. 08/25/24 @1330 Thank you! /tyree TIRADO PHARMD, [facility] CLINICAL PHARMACY PRACTITIONER Signed: 05/17/2024 15:30 Receipt Acknowledged By: 05/18/2024 09:26 /jus/ STEFFANY BURNS for LEFTY DURHAM --- Original Document --- 05/17/24 PHARMACY CLINIC NOTE: TONY LOGAN, 83 yo WHITE MALE, presents for qfks-oe-nkbq initial visit for diabetes management. Today, pt reports DM since 1981. Possible A.O. 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 Mother had DM. Dr. Powell - PCP via civilian provider. Denies rashes, burning on urination, foul smell or blood in urine. Once or twice a month will have low bg - takes glucose tabs or OJ. Current diabetes medications: - insulin glargine 18 units BID - insulin aspart 13 (eggs), 14 or 16 for cereal/ 8 units lunch/ 10 for dinner - empagliflozin 25 mg Previous diabetes medications: - metformin Medication Adherence: - once in awhile will skip lunch insulin - rare Diet Patterns: patient eats on avg. -x/day: Wake: 3337-4362 B: 0830 eggs/ toast/ fruit, next day will have cereal fruit and toast L: 1200 homemade soup and crackers D: 1630 chicken or pork, rice, potato, pasta Bed: 2130,2200 Snacks: nuts and fruit Drinks: water 90 oz, coffee 1 cup/day Alcohol: none Tobacco: former- quit 2007 Exercise: tries, just getting back to normal since pneumonia Occupation: retired - [employer] SMBG: Name: Tony Logan Date of : 1940 Report Period: 05/04/2024 - 05/17/2024 (14 days) Generated: 05/17/2024 Time CGM Active: 97% Glucose Statistics and Targets Average Glucose: 190 mg/dL Glucose Management Indicator (GMI): 7.9% Glucose Variability (%CV): 29.7% Target Range: 70 - 180 mg/dL Time in Ranges Very High: >250 mg/dL --- 15% High: 181 - 250 mg/dL --- 34% Target Range: 70 - 180 mg/dL --- 51% Low: 54 - 69 mg/dL --- 0% Very Low: <54 mg/dL --- 0% Avgs: 12am 2am 4am 6am 8am 10am 172 157 143 154 209 256 12pm 2pm 4pm 6pm 8pm 10pm 233 208 175 185 198 190 SMBG assessment: improved since visit on 05/05/24 w/ endocrine. Largest variation with BF- would benefit from less CHO. No hypos HYPOGLYCEMIC Events: 0 in last 2 weeks - Hypoglycemia recognition & treatment reviewed: Yes Allergies/ADR: Patient has answered NKA Active and Recently Outpatient Medications (including Supplies): Active Outpatient Medications Status 1) ACCU-CHEK [...] BELOW 70 5) GLUCOSE SENSOR FREESTYLE LINK 3 USE 1 SENSOR DIRECTED ACTIVE EVERY 14 DAYS 6) INSULIN,ASPART(EQV-NOVLG)100UN/M L FLXPEN INJECT DIRECTED HOLD 100UNIT/ML SUBCUTANEOUSLY THREE TIMES A DAY 13-16 UNITS BREAKFAST BASED ON MEAL, 8 UNITS LUNCH, AND 10 UNITS DINNER Indication: FOR DIABETES 7) INSULIN,GLARGINE 100 UNT/ML 3ML SOLOSTAR INJECT 18 UNITS HOLD SUBCUTANEOUSLY TWICE DAILY Indication: FOR DIABETES 8) LANCET,SOFTCLIX USE 1 LANCET DIRECTED THREE TIMES A DAY ACTIVE TO TEST BLOOD SUGAR Indication: TYPE 2 DIABETES 9) LIDOCAINE 5% OINT APPLY LIBERAL AMOUNT TOPICALLY TWICE DAILY ACTIVE NEEDED Indication: NERVE PAIN Inactive Outpatient Medications Status 1) ACCU-CHEK GUIDE ME (GLUCOSE) METER USE METER TO TEST BLOOD SUGARS THREE TIMES A DAY Indication: TYPE 2 DIABETES 2) EMPAGLIFLOZIN 10MG TAB TAKE ONE-HALF TABLET BY MOUTH ONCE DISCONTINUED DAILY Indication: FOR TYPE 2 DIABETES MELLITUS 3) EMPAGLIFLOZIN 25MG TAB TAKE ONE-HALF TABLET BY MOUTH ONCE DISCONTINUED DAILY (EDIT) Indication: FOR TYPE 2 DIABETES MELLITUS 4) GLUCOSE SENSOR FREESTYLE LINK 2 USE 1 SENSOR DIRECTED DISCONTINUED EVERY 14 DAYS 5) GLUCOSE SENSOR FREESTYLE LINK 3 USE 1 SENSOR DIRECTED DISCONTINUED EVERY 14 DAYS (EDIT) 6) INSULIN,ASPART(EQV-NOVLG)100UN/M L FLXPEN INJECT 7 UNITS DISCONTINUED SUBCUTANEOUSLY EVERY MORNING AND INJECT 8 UNITS AT NOON AND (EDIT) INJECT 15 UNITS EVERY EVENING BEFORE SUPPER Indication: FOR DIABETES 7) INSULIN,ASPART(EQV-NOVLG)100UN/M L FLXPEN INJECT 18 UNITS DISCONTINUED SUBCUTANEOUSLY EVERY MORNING AND INJECT 7 UNITS AT NOON AND (EDIT) INJECT 11 UNITS EVERY EVENING BEFORE SUPPER Indication: FOR DIABETES 8) INSULIN,ASPART(EQV-NOVLG)100UN/M L FLXPEN INJECT DIRECTED DISCONTINUED SUBCUTANEOUSLY THREE TIMES A DAY 10-14 UNITS BREAKFAST (EDIT) BASED ON MEAL, 7 UNITS NOON, 10 UNITS DINNER. Indication: FOR DIABETES 9) INSULIN,ASPART(EQV-NOVLG)100UN/M L FLXPEN INJECT DIRECTED DISCONTINUED SUBCUTANEOUSLY THREE TIMES A DAY 8 UNITS FOR EGGS, 12 UNITS (EDIT) FOR CEREAL AM, 5 UNITS NOON, 9 UNITS DINNER Indication: FOR DIABETES 10) INSULIN,ASPART(EQV-NOVLG)100UN/M L FLXPEN INJECT DIRECTED DISCONTINUED SUBCUTANEOUSLY THREE TIMES A DAY 11-15 UNITS BREAKFAST (EDIT) BASED ON MEAL, 7 UNITS LUNCH, AND 10 UNITS DINNER Indication: FOR DIABETES 11) INSULIN,ASPART(EQV-NOVLG)100UN/M L FLXPEN INJECT DIRECTED DISCONTINUED SUBCUTANEOUSLY THREE TIMES A DAY 9 UNITS FOR EGGS, 15 UNITS FOR CEREAL BREAKFAST, 7 UNITS NOON, 10 UNITS DINNER Indication: FOR DIABETES 12) INSULIN,GLARGINE-YFGN 100UNIT/ML PEN 3ML INJECT 10 UNITS DISCONTINUED SUBCUTANEOUSLY TWICE DAILY Indication: FOR DIABETES 13) INSULIN,GLARGINE-YFGN 100UNIT/ML PEN 3ML INJECT 13 UNITS DISCONTINUED SUBCUTANEOUSLY TWICE DAILY Indication: FOR DIABETES 14) INSULIN,GLARGINE-YFGN 100UNIT/ML PEN 3ML INJECT 38 UNITS DISCONTINUED SUBCUTANEOUSLY AT BEDTIME (EDIT) Indication: FOR DIABETES Active Non-VA Medications Status 1) Non-VA AMIODARONE HCL 200MG TAB 200MG BY MOUTH TWICE DAILY ACTIVE 2) Non-VA EMPAGLIFLOZIN 25MG TAB 25MG BY MOUTH ONCE DAILY ACTIVE Indication: congestive heart failure 3) Non-VA FENOFIBRATE 54MG TAB 108MG BY [...] CAP 5MG BY MOUTH ONCE DAILY ACTIVE 31 Total Medications Labs: CHEM 7 TREND LAB CUMULATIVE SELECTED Collection [...] 4.8 103 22 175 H 28 H eGFR CKD-EPI 202003/29/24 08:38 37 L SERUM LIVER PANEL TREND Collection DT Spec AST ALT T BILI ALK BEE T. PROT ALBUMIN 01/29/2024 09:49 SERUM 30 31 0.4 66 7.4 3.2 L 08/06/2023 07:31 SERUM 22 24 0.7 61 6.4 3.0 L 06/19/2022 07:35 SERUM 26 25 0.5 55 6.9 3.7 12/24/2021 09:37 SERUM 22 20 0.3 60 7.2 3.7 06/20/2021 08:13 SERUM 39 H 40 0.4 65 6.7 3.2 L HEMOGLOBIN A1C TREND Collection DT Spec HGBA1c 03/29/2024 08:38 BLOOD 8.1 H 11/05/2023 07:31 BLOOD 8.1 H 08/06/2023 07:31 BLOOD 7.7 H 05/05/2023 07:48 BLOOD 7.2 H 01/03/2023 09:54 BLOOD 7.8 H LIPID PANEL TREND Collection DT Spec CHOL HDL CHO/HDL LDL-d LDL-c TRIG 03/29/2024 08:38 SERUM 99 36 L 2.8 47 78 11/05/2023 07:31 SERUM 140 49 2.9 72 94 05/05/2023 07:48 SERUM 86 31 L 2.8 40 74 06/19/2022 07:36 SERUM 119 33 L 3.6 61 126 12/24/2021 09:37 SERUM 146 38 L 3.8 76 161 H Vitals: Ht: 66 in [167.6 cm] (11/13/2023 09:26) Wt: 180 lb [81.65 kg] (01/06/2024 09:24) BMI: BMI: 29.1 BP: 132/74 (01/06/2024 15:45) HR: 78 (01/06/2024 09:24) Assessment: DIABETES: -A1c is above goal of <8%: 8.1% 03/29/24 CARDIOVASCULAR: Goal BP = <130/80 mmHg -Current BP is132/74 (01/06/2024 15:45) -Lipids: within goal- atorvastatin 10 mg PREVENTIVE CARE: - Most recent visit to Podiatry: 06/2024 - Most recent visit to Optometry:02/2024 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 Plan: Reviewed meal choices for BF and insulin dose, encouraged to take 15-16 units of insulin aspart if having cereal or oatmeal and toas. DM education 07/2024. - Medication management - CONTINUE - insulin glargine 18 units BID - CONTINUE - insulin aspart 13 (eggs), 15- 16 for cereal/ 8 units lunch/ 10 for dinner - CONTINUE - empagliflozin 25 mg - Continue to SMBG w/ link - Monitor for s/sx hypoglycemia and contact clinic if BG consistently <70mg/dL - Healthy dietary and lifestyle modifications encouraged - Repeat A1c: 07/2024 EDUCATION -A shared decision-making approach was used in the development of this plan, involving the [place], clinician, and any caregivers present. The was provided the opportunity express questions or concerns, and the plan was adjusted as needed to address these concerns. -Reviewed with any new medications, changes to the medication list, education, and plan from today's visit. Patient (and/or caregiver) verbalized understanding of the plan, including possible known risks and benefits, and had no additional questions. RTC:08/25/24 @1330 Time Spent: 30 mins PBM PharmD Pharmacotherapy Rem V12: PHARMACIST INTERVENTIONS: TYPE 2 DIABETES MELLITUS Medication monitoring, no dosage change required, continue to monitor and assess Medication reconciliation (changes to active VA and non-VA medication lists to reconcile differences) Changes to medication lists made Update dose, frequency, duration and/or dosage form of medication Add or renew medication /tyree TIRADO PHARMD,[facility] CLINICAL PHARMACY PRACTITIONER Signed: 05/17/2024 15:30 05/17/2024 ADDENDUM STATUS: COMPLETED Pt will be seen by DM education 07/26/24, and CPP 08/25/24. Would you like to keep or cancel 08/02/24 for endocrine apt? Pt is ok with cancelling if that is ok with provider /tyree TIRADO PHARMD,[facility] CLINICAL PHARMACY PRACTITIONER Signed: 05/17/2024 15:33 Receipt Acknowledged By: 05/18/2024 07:44 /tyree BUTTS MD STAFF PHYSICIAN 05/18/2024 ADDENDUM STATUS: COMPLETED Please do cancel May appointment with me. Thank you. /tyree BUTTS MD STAFF PHYSICIAN Signed: 05/18/2024 07:45 Receipt Acknowledged By: * AWAITING SIGNATURE * VICTORINA TIRADO JODI A [place] CNTRL [facility] [place] [facility] May 17, 2024 02:01 PM PHARMACY OUTPATIENT NOTE: LOCAL TITLE: PHARMACY CLINIC NOTE STANDARD TITLE: PHARMACY OUTPATIENT NOTE DATE OF NOTE: MAY 17, 2024@14:01 ENTRY DATE: MAY 17, 2024@14:01:39 AUTHOR: VICTORINA TIRADO EXP COSIGNER: URGENCY: STATUS: COMPLETED PHARMACY CLINIC NOTE Has ADDENDA TONY LOGAN, 83 yo WHITE MALE, presents for vowg-rs-lchl initial visit for diabetes management. Today, pt reports DM since 1981. Possible A.O. 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 Mother had DM. Dr. Powell - PCP via civilian provider. Denies rashes, burning on urination, foul smell or blood in urine. Once or twice a month will have low bg - takes glucose tabs or OJ. Current diabetes medications: - insulin glargine 18 units BID - insulin aspart 13 (eggs), 14 or 16 for cereal/ 8 units lunch/ 10 for dinner - empagliflozin 25 mg Previous diabetes medications: - metformin Medication Adherence: - once in awhile will skip lunch insulin - rare Diet Patterns: patient eats on avg. -x/day: Wake: 0405-1654 B: 0830 eggs/ toast/ fruit, next day will have cereal fruit and toast L: 1200 homemade soup and crackers D: 1630 chicken or pork, rice, potato, pasta Bed: 2130,2200 Snacks: nuts and fruit Drinks: water 90 oz, coffee 1 cup/day Alcohol: none Tobacco: former- quit 2007 Exercise: tries, just getting back to normal since pneumonia Occupation: retired - [employer] SMBG: Name: Tony Logan Date of : 1940 Report Period: 05/04/2024 - 05/17/2024 (14 days) Generated: 05/17/2024 Time CGM Active: 97% Glucose Statistics and Targets Average Glucose: 190 mg/dL Glucose Management Indicator (GMI): 7.9% Glucose Variability (%CV): 29.7% Target Range: 70 - 180 mg/dL Time in Ranges Very High: >250 mg/dL --- 15% High: 181 - 250 mg/dL --- 34% Target Range: 70 - 180 mg/dL --- 51% Low: 54 - 69 mg/dL --- 0% Very Low: <54 mg/dL --- 0% Avgs: 12am 2am 4am 6am 8am 10am 172 157 143 154 209 256 12pm 2pm 4pm 6pm 8pm 10pm 233 208 175 185 198 190 SMBG assessment: improved since visit on 05/05/24 w/ endocrine. Largest variation with BF- would benefit from less CHO. No hypos HYPOGLYCEMIC Events: 0 in last 2 weeks - Hypoglycemia recognition & treatment reviewed: Yes Allergies/ADR: Patient has answered NKA Active and Recently Outpatient Medications (including Supplies): Active Outpatient Medications Status 1) ACCU-CHEK [...] BELOW 70 5) GLUCOSE SENSOR FREESTYLE LINK 3 USE 1 SENSOR DIRECTED ACTIVE EVERY 14 DAYS 6) INSULIN,ASPART(EQV-NOVLG)100UN/M L FLXPEN INJECT DIRECTED HOLD 100UNIT/ML SUBCUTANEOUSLY THREE TIMES A DAY 13-16 UNITS BREAKFAST BASED ON MEAL, 8 UNITS LUNCH, AND 10 UNITS DINNER Indication: FOR DIABETES 7) INSULIN,GLARGINE 100 UNT/ML 3ML SOLOSTAR INJECT 18 UNITS HOLD SUBCUTANEOUSLY TWICE DAILY Indication: FOR DIABETES 8) LANCET,SOFTCLIX USE 1 LANCET DIRECTED THREE TIMES A DAY ACTIVE TO TEST BLOOD SUGAR Indication: TYPE 2 DIABETES 9) LIDOCAINE 5% OINT APPLY LIBERAL AMOUNT TOPICALLY TWICE DAILY ACTIVE NEEDED Indication: NERVE PAIN Inactive Outpatient Medications Status 1) ACCU-CHEK GUIDE ME (GLUCOSE) METER USE METER TO TEST BLOOD SUGARS THREE TIMES A DAY Indication: TYPE 2 DIABETES 2) EMPAGLIFLOZIN 10MG TAB TAKE ONE-HALF TABLET BY MOUTH ONCE DISCONTINUED DAILY Indication: FOR TYPE 2 DIABETES MELLITUS 3) EMPAGLIFLOZIN 25MG TAB TAKE ONE-HALF TABLET BY MOUTH ONCE DISCONTINUED DAILY (EDIT) Indication: FOR TYPE 2 DIABETES MELLITUS 4) GLUCOSE SENSOR FREESTYLE LINK 2 USE 1 SENSOR DIRECTED DISCONTINUED EVERY 14 DAYS 5) GLUCOSE SENSOR FREESTYLE LINK 3 USE 1 SENSOR DIRECTED DISCONTINUED EVERY 14 DAYS (EDIT) 6) INSULIN,ASPART(EQV-NOVLG)100UN/M L FLXPEN INJECT 7 UNITS DISCONTINUED SUBCUTANEOUSLY EVERY MORNING AND INJECT 8 UNITS AT NOON AND (EDIT) INJECT 15 UNITS EVERY EVENING BEFORE SUPPER Indication: FOR DIABETES 7) INSULIN,ASPART(EQV-NOVLG)100UN/M L FLXPEN INJECT 18 UNITS DISCONTINUED SUBCUTANEOUSLY EVERY MORNING AND INJECT 7 UNITS AT NOON AND (EDIT) INJECT 11 UNITS EVERY EVENING BEFORE SUPPER Indication: FOR DIABETES 8) INSULIN,ASPART(EQV-NOVLG)100UN/M L FLXPEN INJECT DIRECTED DISCONTINUED SUBCUTANEOUSLY THREE TIMES A DAY 10-14 UNITS BREAKFAST (EDIT) BASED ON MEAL, 7 UNITS NOON, 10 UNITS DINNER. Indication: FOR DIABETES 9) INSULIN,ASPART(EQV-NOVLG)100UN/M L FLXPEN INJECT DIRECTED DISCONTINUED SUBCUTANEOUSLY THREE TIMES A DAY 8 UNITS FOR EGGS, 12 UNITS (EDIT) FOR CEREAL AM, 5 UNITS NOON, 9 UNITS DINNER Indication: FOR DIABETES 10) INSULIN,ASPART(EQV-NOVLG)100UN/M L FLXPEN INJECT DIRECTED DISCONTINUED SUBCUTANEOUSLY THREE TIMES A DAY 11-15 UNITS BREAKFAST (EDIT) BASED ON MEAL, 7 UNITS LUNCH, AND 10 UNITS DINNER Indication: FOR DIABETES 11) INSULIN,ASPART(EQV-NOVLG)100UN/M L FLXPEN INJECT DIRECTED DISCONTINUED SUBCUTANEOUSLY THREE TIMES A DAY 9 UNITS FOR EGGS, 15 UNITS FOR CEREAL BREAKFAST, 7 UNITS NOON, 10 UNITS DINNER Indication: FOR DIABETES 12) INSULIN,GLARGINE-YFGN 100UNIT/ML PEN 3ML INJECT 10 UNITS DISCONTINUED SUBCUTANEOUSLY TWICE DAILY Indication: FOR DIABETES 13) INSULIN,GLARGINE-YFGN 100UNIT/ML PEN 3ML INJECT 13 UNITS DISCONTINUED SUBCUTANEOUSLY TWICE DAILY Indication: FOR DIABETES 14) INSULIN,GLARGINE-YFGN 100UNIT/ML PEN 3ML INJECT 38 UNITS DISCONTINUED SUBCUTANEOUSLY AT BEDTIME (EDIT) Indication: FOR DIABETES Active Non-VA Medications Status 1) Non-VA AMIODARONE HCL 200MG TAB 200MG BY MOUTH TWICE DAILY ACTIVE 2) Non-VA EMPAGLIFLOZIN 25MG TAB 25MG BY MOUTH ONCE DAILY ACTIVE Indication: congestive heart failure 3) Non-VA FENOFIBRATE 54MG TAB 108MG BY [...] CAP 5MG BY MOUTH ONCE DAILY ACTIVE 31 Total Medications Labs: CHEM 7 TREND LAB CUMULATIVE SELECTED Collection [...] 4.8 103 22 175 H 28 H eGFR CKD-EPI 202003/29/24 08:38 37 L SERUM LIVER PANEL TREND Collection DT Spec AST ALT T BILI ALK BEE T. PROT ALBUMIN 01/29/2024 09:49 SERUM 30 31 0.4 66 7.4 3.2 L 08/06/2023 07:31 SERUM 22 24 0.7 61 6.4 3.0 L 06/19/2022 07:35 SERUM 26 25 0.5 55 6.9 3.7 12/24/2021 09:37 SERUM 22 20 0.3 60 7.2 3.7 06/20/2021 08:13 SERUM 39 H 40 0.4 65 6.7 3.2 L HEMOGLOBIN A1C TREND Collection DT Spec HGBA1c 03/29/2024 08:38 BLOOD 8.1 H 11/05/2023 07:31 BLOOD 8.1 H 08/06/2023 07:31 BLOOD 7.7 H 05/05/2023 07:48 BLOOD 7.2 H 01/03/2023 09:54 BLOOD 7.8 H LIPID PANEL TREND Collection DT Spec CHOL HDL CHO/HDL LDL-d LDL-c TRIG 03/29/2024 08:38 SERUM 99 36 L 2.8 47 78 11/05/2023 07:31 SERUM 140 49 2.9 72 94 05/05/2023 07:48 SERUM 86 31 L 2.8 40 74 06/19/2022 07:36 SERUM 119 33 L 3.6 61 126 12/24/2021 09:37 SERUM 146 38 L 3.8 76 161 H Vitals: Ht: 66 in [167.6 cm] (11/13/2023 09:26) Wt: 180 lb [81.65 kg] (01/06/2024 09:24) BMI: BMI: 29.1 BP: 132/74 (01/06/2024 15:45) HR: 78 (01/06/2024 09:24) Assessment: DIABETES: -A1c is above goal of <8%: 8.1% 03/29/24 CARDIOVASCULAR: Goal BP = <130/80 mmHg -Current BP is132/74 (01/06/2024 15:45) -Lipids: within goal- atorvastatin 10 mg PREVENTIVE CARE: - Most recent visit to Podiatry: 06/2024 - Most recent visit to Optometry:02/2024 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 Plan: Reviewed meal choices for BF and insulin dose, encouraged to take 15-16 units of insulin aspart if having cereal or oatmeal and toas. DM education 07/2024. - Medication management - CONTINUE - insulin glargine 18 units BID - CONTINUE - insulin aspart 13 (eggs), 15- 16 for cereal/ 8 units lunch/ 10 for dinner - CONTINUE - empagliflozin 25 mg - Continue to SMBG w/ link - Monitor for s/sx hypoglycemia and contact clinic if BG consistently <70mg/dL - Healthy dietary and lifestyle modifications encouraged - Repeat A1c: 07/2024 EDUCATION -A shared decision-making approach was used in the development of this plan, involving the [place], clinician, and any caregivers present. The [place] was provided the opportunity express questions or concerns, and the plan was adjusted as needed to address these concerns. -Reviewed with [place] any new medications, changes to the medication list, education, and plan from today's visit. Patient (and/or caregiver) verbalized understanding of the plan, including possible known risks and benefits, and had no additional questions. RTC:08/25/24 @1330 Time Spent: 30 mins PBM PharmD Pharmacotherapy Rem V12: PHARMACIST INTERVENTIONS: TYPE 2 DIABETES MELLITUS Medication monitoring, no dosage change required, continue to monitor and assess Medication reconciliation (changes to active VA and non-VA medication lists to reconcile differences) Changes to medication lists made Update dose, frequency, duration and/or dosage form of medication Add or renew medication /jus/ KEEGAN GREERD,BCPS CLINICAL PHARMACY PRACTITIONER Signed: 05/17/2024 15:30 05/17/2024 ADDENDUM STATUS: COMPLETED Will ask [facility] to please schedule patient for: [X] [facility] PHARM PACT 3 RTC order placed. Appointment Length: _30__ minutes. 08/25/24 @1330 Thank you! /tyree TIRADO PHARMD,EDIS CLINICAL PHARMACY PRACTITIONER Signed: 05/17/2024 15:30 Receipt Acknowledged By: 05/18/2024 09:26 /jus/ STEFFANY BURNS for LEFTY DURHAM 05/17/2024 ADDENDUM STATUS: COMPLETED Pt will be seen by DM education 07/26/24, and CPP 08/25/24. Would you like to keep or cancel 08/02/24 for endocrine apt? Pt is ok with cancelling if that is ok with provider /jus/ VICTORINA TIRADO PHARMD,EDIS CLINICAL PHARMACY PRACTITIONER Signed: 05/17/2024 15:33 Receipt Acknowledged By: 05/18/2024 07:44 /jus/ MIAH BUTTS MD STAFF PHYSICIAN 05/18/2024 ADDENDUM STATUS: COMPLETED Please do cancel May appointment with me. Thank you. /tyree BUTTS MD STAFF PHYSICIAN Signed: 05/18/2024 07:45 Receipt Acknowledged By: 05/19/2024 12:20 /jus/ VICTORINA TIRADO PHARMD,EDIS CLINICAL PHARMACY PRACTITIONER 05/19/2024 ADDENDUM STATUS: COMPLETED Please cancel the following per 08/02/24 @1330 /tyree TIRADO PHARMD,EDIS CLINICAL PHARMACY PRACTITIONER Signed: 05/19/2024 12:21 Receipt Acknowledged By: 05/19/2024 13:13 /tyree CAMPOS RN 05/19/2024 ADDENDUM STATUS: COMPLETED Appointment has been canceled /tyree CAMPOS RN Signed: 05/19/2024 13:14 VICTORINA TIRADO [facility]
--- OUTSIDE RECORDS SUMMARY | 2024-07-20 08:32 | XMS_ITS | Encounter Summary ---
Author Name [facility] [facility] Address [address] [place] [id number] Care Team Providers Care Marketing Specialist Name Role Phone AJAY APODACA Primary Care [...] PART A Nov 22, 2006 PART A [id number] TONY CASTELLON PATIENT MEDICARE (WNR) MEDICARE (M) PART B Nov 22, 2006 PART B [id number] TONY CASTELLON PATIENT MEDICARE (WNR) MEDICARE (M) PART A Nov 22, 2006 PART A [id number] [phone] [id number] TONY CASTELLON PATIENT MEDICARE (WNR) MEDICARE (M) PART B Nov 22, 2006 PART B [id number] TONY CASTELLON PATIENT FOR LIFE TFL* Apr 20, 2014 [id number] SUKHJINDER CASTELLON JR PATIENT Selected Encounter This section includes the information on record at [place] for the Encounter. 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 Date/Time Primary/Secondary Diagnosis Diagnosis Name Provider Source Mar 03, 2024 03:57 PM PRIMARY Open angle with borderline findings, low risk, bilateral SHELLEYJUAN DIEGO Evy [place] [facility] [place] [facility] Plan of Treatment: Future Appointments (+ 6 months) and Future Tests (+/- 45 days) The Plan of Treatment section includes future care activities for the [facility] [place] [facility] This section includes future appointments and future orders which are active, pending or scheduled. Future Appointments This section includes appointments that were scheduled to occur 6 months from the date of the Encounter, up to a maximum of 20 appointments. The data comes from all [place] treatment facilities. Appointment Date/Time Appointment Type Appointme nt Facility Name Apr 07, 2024 08:00 AM AMBULATORY - [place]ICINE [place] [facility] [place] [facility] Apr 27, 2024 03:00 PM [place] [facility] [place] [facility] May 05, 2024 11:30 AM [place] [facility] [place] [facility] May 17, 2024 02:00 PM AM[place] [facility] [place] [facility] Jul 08, 2024 09:00 AM AM[place] [facility] [place] [facility] Jul 13, 2024 11:30 AM [place] [facility] [place] [facility] July 26, 2024 03:00 PM AM[place]ORY - [place]INE [place] [facility] [place] [facility] Aug 25, 2024 01:30 PM AM[place]ULATORY - [place]ICINE [place] [facility] [place] [facility] Lab Results: +/- 30 days of the encounter This section includes the Chemistry and Hematology Lab Results on record with [place] for the patient. Radiology Reports and Pathology Reports are provided separately, in subsequent sections. Lab Results This section contains the Chemistry/Hematology Results that were resulted 30 days before or 30 daysafter the date of the Encounter. Date/Time Source Result Type Result - Unit Interpretation Reference Range Specimen Type Comment Mar 29, 2024 08:38 AM [facility] HEMOGLOBIN A1C PANEL BLOOD Specimen Type: [...] Feb 24, 2024 02:53 PM Reporting Lab: [facility] [address] [facility] [address] Performing Lab: [address] [address] HEMOGLOBIN A1C 8.1 H 4.0-5.6 Mar 29, 2024 08:38 AM [facility] MICROALBUMIN CREATININE RATIO PANEL URINE Spe cimen Type: URINE No comment entered. Ordering Provider: MIAH BUTTS Report Released Date/Time: Feb 24, 2024 02:53 PM Reporting Lab: [facility] [address] [facility] [address] Performing Lab: [facility] [address] [facility] [address] MICROALBUMIN/CREATININE RATIO 8.8 mg/g 0 -29.9 MICROALBUMIN,QUANTITATIVE 0.5 mg/dL RR U NAVAIL CREATININE URINE 57.04 mg/dL Mar 29, 2024 08:38 AM [facility] LIPID PANEL FASTING SERUM Specimen Type: SERU M No comment entered. Ordering Provider: MIAH BUTTS Report Released Date/Time: Feb 24, 2024 02:53 PM Reporting Lab: [facility] [address] [facility] [address] Performing Lab: [address] [address] CHOLESTEROL 99 mg/dL TRIGLYCERIDE 78 mg/dL 0-150 LDL calculated 47 mg/dL 0-129 CHOL/HDL 2.8 HDL CHOLESTEROL 36 mg/dL L 40-60 Mar 29, 2024 08:38 AM [facility] BASIC METABOLIC PANEL (non-fasting) SERUM Spe cimen Type: SERUM No comment entered. Ordering Provider: MIAH BUTTS Report Released Date/Time: Feb 24, 2024 02:53 PM Reporting Lab: [facility] [address] [facility] [address] Performing Lab: [facility] [address] [facility] [address] UREA NITROGEN 52 mg/dL H 7-25 GLUCOSE [...] and tobacco- related health factors from the [place] facility where the Encounter took place. Current Smoking Status This section includes the most current smoking, or tobacco-related health factor, from the [place] facility where the Encounter took place. Date/Time Current Smoking Status Comment [facility] Jan 06, 2024 09:30 AM VA-TOBACCO QUIT 15 YRS OR MORE [facility] Tobacco Use History This section includes a history of the smoking, or tobacco-related health factors, that were collected on or before the date of the Encounter. The data comes from the [place] facility where the Encounter took place. Date/Time Smoking Status/Tobac co Use Comment Facility Jan 06, 2024 09:30 AM VA-TOBACCO QUIT 15 YRS OR MORE [facility] Dec 24, 2022 10:30 AM VA-TOBACCO FORMER USER [facility] Dec 24, 2022 10:30 AM VA-TOBACCO QUIT 15 YRS OR MORE [facility] Dec 24, 2021 10:00 AM [facility] Dec 24, 2021 10:00 AM VA-TOBACCO QUIT 5 TO < 15 YRS [place] [facility] [place] [facility] Dec 14, 2020 08:30 AM VA-TOBACCO FORMER USER [place] [facility] [place] [facility] Dec 14, 2020 08:30 AM VA-TOBACCO QUIT 5 TO < 15 YRS [place] [facility] [place] [facility] Nov 15, 2019 11:00 AM VA-TOBACCO FORMER USER [place] [facility] [place] [facility] Nov 15, 2019 11:00 AM VA-TOBACCO QUIT 5 TO < 15 YRS [place] [facility] [place] [facility] Oct 20, 2017 08:19 AM VA-TOBACCO FORMER USER [place] [facility] [place] [facility] Oct 20, 2017 08:19 AM VA-TOBACCO QUIT 5 TO < 15 YRS [place] [facility] [place] [facility] Sep 04, 2017 11:09 AM QUIT TOBACCO USE > 7 YEARS AGO [place] [facility] [place] [facility] Oct 16, 2016 09:08 AM QUIT TOBACCO USE > 7 YEARS AGO [place] [facility] [place] [facility] Feb 20, 2015 10:58 AM QUIT TOBACCO USE > 7 YEARS AGO quit 2009-cigarettes and cigars for 45 years [facility] Advance Directives: All historical and current Section Date Range: From patient's date of to the date document was created. This section includes ALL of a patient's completed or amended [place] Advance and Rescinded Directives. The entries below indicate that a directive exists for the patient, but an actual copy is not included with this document. The data comes from all [place] facilities. Date Advance Directives Provider Source Mar 23, 2014 ADVANCE DIRECTIVE ROSALINDA SHELBY [place] [facility] Encounter Notes: All associated encounter notes This section contains the clinical notes associated to the Encounter. Date/Time Encounter Note(s) Provider Source Mar 03, 2024 02:31 PM OPTOMETRY CONSULT: LOCAL TITLE: CONSULT REPORT/OPTOMETRY OCT STANDARD TITLE: OPTOMETRY [...] RNFL compared to previous scans - Monitor /es/ LIGIA GODFREY OPTOMETRY STUDENT Signed: 03/03/2024 16:01 /jus/ JUAN DIEGO SHELLEY OD TEAM SPORTS SALES ASSOCIATE Cosigned: 03/03/2024 16:03 03/03/2024 ADDENDUM STATUS: COMPLETED The optometry video editing internship participated in this exam. I saw this [place] in conjunction with the optometry student. The visual images were captured by the optometry health scada technician. Results of testing assessed by the student and reviewed by myself. [place]'s history, complaints and student's findings and plan reviewed. I reviewed and agree with the stated findings, assessment and plan. I have added/edited the documentation to reflect my exam findings and changes to the assessment and plan. /jus/ JUAN DIEGO SHELLEY OD TEAM SPORTS SALES ASSOCIATE Signed: 03/03/2024 16:03 LIGIA GODFREY [place] [facility]
--- OUTSIDE RECORDS SUMMARY | 2024-07-20 08:32 | XMS_ITS | Clinical Summary ---
Author Organization [facility] [address] [place] [address] Phone Care Team Providers Care Software Quality Test Engineer Name Role Phone Donte Powell MD Primary Care Provider [phone] Social History Tobacco Use Types Packs/Day Years Used Date Smoking Tobacco: Never Assessed Sex and Gender Information Value Date Recorded Sex Assigned at Not on file Legal Sex Male 7:16 AM EST Gender Identity Not on file Sexual Orientation Not on file Plan of Treatment Upcoming Encounters Date Type Department Care Team (Late st Contact Info) Description 08/26/2024 2:45 PM EDT Office Visit [facility] [address] [place] [address] Homar Cadet MD [address] [facility] [address] [place] [address] Health Maintenance Due Date Last Done Comments Diabetes: Hemoglobin A1C 05/26/2024 03/19/2017 Diabetes: Pedal Pulse Checked 05/26/2024 Diabetes: Sensory Foot Exam 05/26/2024 Diabetes: Visual Foot Exam 05/26/2024 Diabetes: Ophthalmology Exam 03/03/2025 03/03/2024 Hepatitis B Vaccine Aged Out 11/19/2011 No longe r eligible based on patient's age to complete this topic Pneumococcal Vaccine: 50+ Years Completed 10/19/2018, 10/16/2016, 11/19/2011 Influenza Vaccine Completed 12/25/2023, , 12/04/2018, Additional history exists Insurance Medicare [facility] Care Teams Software Quality Test Engineer Relationship Specialty Start Date End Date Donte Powell MD [id number] PEYTONLEORA PATTEN PCP - General Internal Medicine 05/26/24
--- OUTSIDE RECORDS SUMMARY | 2024-07-20 08:32 | XMS_ITS | Encounter Summary ---
Author Name [facility] [place] [place] [facility] [place] Address [address] [place] [address] Care Team Providers Care Grades 7 And 8 Teacher Name Role Phone AJAY APODACA Primary Care [...] Member ID Insurance Provider's Telephone Number Policy Egrber's Name Patient's Relationship to Policy Gerber MEDICARE (WNR) MEDICARE (M) PART B Nov 22, 2006 PART B [id number] TONY CASTELLON PATIENT MEDICARE (WNR) MEDICARE (M) PART A Nov 22, 2006 PART A [id number] [phone] TONY CASTELLON PATIENT MEDICARE (WNR) MEDICARE (M) PART A Nov 22, 2006 PART A [id number] TONY CASTELLON PATIENT MEDICARE (WNR) MEDICARE (M) PART B Nov 22, 2006 PART B [id number] TONY CASTELLON PATIENT FOR LIFE TFL* Apr 20, 2014 [id number] SUKHJINDER CASTELLON JR PATIENT Selected Encounter This section includes the information on record at [place] for the Encounter. Date/Time Encounter Type Encounter Description Reason Provider Source August 13, 2023 10:00 AM CONT GLUC MNTR PT PROV EQP ENDOCRINOLOGY ICD-10-CM E11.8 Type 2 diabetes mellitus with unspecified complications IRIS CARDENAS [facility] Encounter Template Text not used by [place] Assessments - Encounter Diagnoses This section includes the primary and secondary diagnoses documented for the Encounter. Date/Time Primary/Secondary Diagnosis Diagnosis Name Provider Source August 13, 2023 10:52 AM PRIMARY Type 2 diabetes mellitus with unspecified complications IRIS CARDENAS [facility]TRN [facility] Plan of Treatment: Future Appointments (+ 6 months) and Future Tests (+/- 45 days) The Plan of Treatment section includes future care activities for the patient from all [place] treatmentfacritical access hospitalities. This section includes future appointments and [...] - MEDICINE [place] [facility] Sep 23, 2023 09:00 AM AMBULATORY - MEDICINE [place] [facility] Nov 13, 2023 09:30 AM AMBULATORY - MEDICINE [place] [facility] Dec 31, 2023 02:00 PM AMBULATORY - MEDICINE [place] [facility] Jan 06, 2024 09:30 AM AMBULATORY - MEDICINE [place] [facility] Jan 13, 2024 03:00 PM AMBULATORY - MEDICINE [place] [facility] Jan 19, 2024 08:30 AM AMBULATORY - [facility]AB [facility] [place] [facility] Lab Results: +/- 30 days of the [...] Type Comment August 17, 2023 05:30 AM [facility] OCCULT BLOOD FIT X1 SCREEN(IN-HOUSE) FECES Sp ecimen Type: FECES No comment entered. Ordering Provider: JOSH MARKS Report Released Date/Time: August 14, 2023 03:34 PM Reporting Lab: [facility] [place] [facility] [address] [facility] [address] Performing Lab: [facility] [facility] [address] [facility] [address] OCCULT BLOOD (FIT)#1 OF 1 Negative NEG August 15, 2023 08:59 AM [facility] FOLATE (WROX) SERUM Specimen Type: SERUM No comment entered. Ordering Provider: JOSH MARKS Report Released Date/Time: August 14, 2023 03:34 PM Reporting Lab: [facility] [facility] [address] [facility] [address] Performing Lab: [facility] [place] [facility] [facility] [address] [facility] [address] FOLATE (WROX) 13.92 ng/mL >5.2 August 15, 2023 08:59 AM [facility] FERRITIN SERUM Specimen Type: SERUM No comment entered. Ordering Provider: JOSH MARKS Report Released Date/Time: August 14, 2023 03:34 PM Reporting Lab: [facility] [facility] [address] [facility] [address] Performing Lab: [facility] [facility] [address] [facility] [address] FERRITIN 108 ng/mL 20-300 August 15, 2023 08:59 AM [facility] VITAMIN B12 SERUM Specimen Type: SERUM No comment entered. Ordering Provider: JOSH MARKS Report Released Date/Time: August 14, 2023 03:34 PM Reporting Lab: [facility] [facility] [address] [facility] [address] Performing Lab: [facility] [address] [address] VITAMIN B12 284 pg/mL 200-900 August 15, 2023 08:59 AM [facility] IRON & TIBC PANEL SERUM Specimen Type: SERUM No comment entered. Ordering Provider: JOSH MARKS Report Released Date/Time: August 14, 2023 03:34 PM Reporting Lab: [facility] [address] [facility] [address] Performing Lab: [address] [address] TIBC 380 ug/dL 204-475 IRON 71 ug/dL 40-160 Transferrin Saturation 18.7 L 20.0-50.0 August 15, 2023 08:59 AM [facility] CBC AND DIFF (AUTO) BLOOD Specimen Type: BLOO D No comment entered. Ordering Provider: JOSH MARKS Report Released Date/Time: August 14, 2023 03:34 PM Reporting Lab: [facility] [address] [facility] [address] Performing Lab: [address] [address] WBC 5.70 10*3/uL 4.50-11.00 RBC 3.35 10*6/uL L 4.23-5.66 HGB 10.3 g/dL L 12.8-17 HCT 32.9 L 39.2-50.4 MCV 98.2 fL 82-99 MCHC 31.3 g/dL 30.8-35.1 PLT 303 10*3/uL 140-360 RDW-CV 14.2 12.0-16.0 Cass, Abs 0.63 10*3/uL 0.30-1.10 MCH 30.7 pg 26.2-32.6 Neut % 73.0 43.7-75.8 Lymph % 14.2 14.0-42.3 Cass % 11.1 5.1-13.7 Eos % 0.4 0.4-6.8 Baso % 0.4 0.1-2.0 Neut, Abs 4.17 10*3/uL 2.20-7.60 Lymph, Abs 0.81 10*3/uL L 1.00-3.20 Eos, Abs 0.02 10*3/uL L 0.03-0.44 Baso, Abs 0.02 10*3/uL 0.01-0.13 Immature Gran % 0.9 H 0.0-0.7 Immature Gran, Abs 0.05 10*3/uL 0.00-0.0 6 August 06, 2023 07:31 AM [facility] LIVER FUNCTION SERUM Specimen Type: SERUM No comment entered. Ordering Provider: GEORGINA ARITA Report Released Date/Time: Jun 06, 2023 11:30 AM Reporting Lab: [address] [address] Performing Lab: [address] [address] PROTEIN,TOTAL 6.4 g/dL 6.0-8.3 ALBUMIN 3.0 g/dL L 3.5-5.0 ALKALINE PHOSPHATASE 61 U/L 40-150 AST 22 U/L 5-34 ALT 24 U/L BILIRUBIN, TOTAL 0.7 mg/dL 0.2-1.2 August 06, 2023 07:31 AM [facility] CBC AND DIFF (AUTO) BLOOD Specimen Type: BLOO D No comment entered. Ordering Provider: GEORGINA ARITA Report Released Date/Time: Jun 06, 2023 11:30 AM Reporting Lab: [address] [address] Performing Lab: [address] [address] WBC 7.50 10*3/uL 4.50-11.00 RBC 3.17 10*6/uL L 4.23-5.66 HGB 9.8 g/dL L 12.8-17 HCT 31.1 L 39.2-50.4 MCV 98.1 fL 82-99 MCHC 31.5 g/dL 30.8-35.1 PLT 181 10*3/uL 140-360 RDW-CV 14.2 12.0-16.0 Cass, Abs 0.70 10*3/uL 0.30-1.10 MCH 30.9 pg 26.2-32.6 Neut % 79.2 H 43.7-75.8 Lymph % 10.1 L 14.0-42.3 Cass % 9.3 5.1-13.7 Eos % 0.3 L 0.4-6.8 Baso % 0.4 0.1-2.0 Neut, Abs 5.94 10*3/uL 2.20-7.60 Lymph, Abs 0.76 10*3/uL L 1.00-3.20 Eos, Abs 0.02 10*3/uL L 0.03-0.44 Baso, Abs 0.03 10*3/uL 0.01-0.13 Immature Gran % 0.7 0.0-0.7 Immature Gran, Abs 0.05 10*3/uL 0.00-0.0 6 August 06, 2023 07:31 AM [facility] HEMOGLOBIN A1C PANEL BLOOD Specimen [...] May 07, 2023 02:07 PM Reporting Lab: [address] [address] Performing Lab: [address] [address] HEMOGLOBIN A1C 7.7 H 4.0-5.6 August 06, 2023 07:31 AM [facility] BASIC METABOLIC PANEL (non-fasting) SERUM Spe cimen Type: SERUM No comment entered. Ordering Provider: MIAH BUTTS Report Released Date/Time: May 07, 2023 02:07 PM Reporting Lab: [facility] [address] [facility] [address] Performing Lab: [address] [address] UREA NITROGEN 31 mg/dL H 7-25 GLUCOSE [...] Source August 13, 2023 10:05 AM 112/52 [place] [facility] August 13, 2023 10:04 AM 97.2 69 95/51 18 93 0 176.2 28 [place] [facility] Social History: Smoking Status (Most current) and [...] took place. Date/Time Current Smoking Status Comment [facility] it Dec 24, 2022 10:30 AM [place]-TOBACCO QUIT 15 YRS OR MORE [facility] Tobacco Use History This section includes a history of the smoking, or tobacco-related health factors, that were collected on or before the date of the Encounter. The data comes from the [place] facility where the Encounter took place. Date/Time Smoking Status/Tobac co Use Comment Facility Dec 24, 2022 10:30 AM VA-TOBACCO QUIT 15 YRS OR MORE [place] [facility] Dec 24, 2021 10:00 AM VA-TOBACCO FORMER USER [place] [facility] Dec 24, 2021 10:00 AM VA-TOBACCO QUIT 5 TO < 15 YRS [place] [facility] [place] [facility] Dec 14, 2020 08:30 AM VA-TOBACCO FORMER USER [place] [facility] Dec 14, 2020 08:30 AM VA-TOBACCO QUIT 5 TO < 15 YRS [place] [facility] Nov 15, 2019 11:00 AM VA-TOBACCO FORMER USER [facility] [place] [facility] Nov 15, 2019 11:00 AM VA-TOBACCO QUIT 5 TO < 15 YRS [facility] [facility] Oct 20, 2017 08:19 AM VA-TOBACCO FORMER USER [place] [facility] Oct 20, 2017 08:19 AM VA-TOBACCO QUIT 5 TO < 15 YRS [facility] Sep 04, 2017 11:09 AM QUIT TOBACCO USE > 7 YEARS AGO [facility] Oct 16, 2016 09:08 AM QUIT TOBACCO USE > 7 YEARS AGO [facility] [facility] Feb 20, 2015 10:58 AM QUIT TOBACCO USE > 7 YEARS AGO quit 2009-cigarettes and cigars for 45 years [facility] Advance Directives: All historical and [...] Mar 23, 2014 ADVANCE DIRECTIVE ROSALINDA SHELBY [facility] Encounter Notes: All associated encounter notes This section contains the clinical notes associated to the Encounter. Date/Time Encounter Note(s) Provider Source Aug 27, 2023 02:52 PM ADDENDUM: LOCAL TITLE: Addendum STANDARD TITLE: ADDENDUM DATE OF NOTE: AUG 27, 2023@14:52:37 ENTRY DATE: AUG 27, 2023@14:52:38 AUTHOR: JOSH MARKS COSIGNER: URGENCY: STATUS: COMPLETED Vet with new but [...] By: 08/28/2023 07:47 /jus/ NARA MARTIN ADVANCED PARIMUTUEL CASHIER --- Original Document --- 08/10/23 NOTE: CC: [...] followin. Exposure to potentially hazardous substance ([facility] [id number]) 2. Cardiac pacemaker in situ 3. Chronic [...] of active outpatient prescriptions dispensed from this [place] (local) and dispensed from another VA or [...] Remote Allergy/ADR Data available for this patient [place] [facility] [facility] [facility] No Known Allergies [...] the patient into personal health records (i.e. [employer]) are NOT included in this list. Non-VA medications documented outside this [place], remote inpatient orders (regardless of status) and [...] DAILY FOR PREVENTION OF BLOOD CLOTS Rx# [id number] Last Released: 01/06/23 Qty/Days Supply: Rx Expiration Date: 12/25/23 Refills Remainin Indication: FOR PREVENTION OF BLOOD CLOTS Non-VA ASPIRIN 81MG EC TAB TAKE ONE TABLET BY MOUTH EVERY DAY Non-VA ATORVASTATIN CALCIUM 20MG TAB TAKE ONE-HALF TABLET BY MOUTH OUTPT CARBOXYMETHYLCELLULOSE NA 0.5% OPH SOLN (Status = Active) INSTILL 1 DROP INTO EACH EYE TWICE DAILY Rx# [id number] Last Released: 04/04/23 Qty/Days Supply: Rx Expiration Date: 01/10/24 Refills Remainin Non-VA CHOLECALCIF 50MCG (D3-2,000UNIT) TAB TAKE ONE TABLET BY MOUTH ONCE DAILY OUTPT EMPAGLIFLOZIN 10MG TAB (Status = Discontinued) TAKE ONE-HALF TABLET BY MOUTH ONCE DAILY Rx# [id number] Last Released: 05/08/23 Qty/Days Supply: Rx Expiration [...] FOR LOW BLOOD SUGAR BELOW 70 Rx# [id number] Last Released: 07/25/23 Qty/Days Supply: Rx Expiration Date: 01/10/24 Refills Remainin OUTPT INSULIN,ASPART(EQV-NOVLG)100UN/ ML FLXPEN (Status = Active) INJECT 18 UNITS SUBCUTANEOUSLY EVERY MORNING AND INJECT 7 UNITS AT NOON AND INJECT 11 UNITS EVERY EVENING BEFORE SUPPER Rx# [id number] Last Released: 05/08/23 Qty/Days Supply: Rx Expiration Date: 05/07/24 Refills Remainin Indication: FOR DIABETES OUTPT INSULIN,GLARGINE-YFGN 100UNIT/ML PEN 3ML (Status = Active) INJECT 38 UNITS SUBCUTANEOUSLY AT BEDTIME Rx# [id number] Last Released: 05/08/23 Qty/Days Supply: Rx Expiration Date: 05/07/24 Refills Remainin Indication: FOR DIABETES OUTPT LIDOCAINE 5% OINT (Status = Active) APPLY LIBERAL AMOUNT TOPICALLY TWICE DAILY NEEDED FOR NEUROPATHY PAIN Rx# [id number] Last Released: 05/24/23 Qty/ Supply: Rx Expiration Date: 12/17/23 Refills Remainin Indication: NEUROPATHY PAPIN OUTPT LOSARTAN 50MG TAB (Status = Discontinued) TAKE ONE TABLET BY MOUTH ONCE DAILY FOR BLOOD PRESSURE/HEART Rx# [id number] Last Released: 06/06/23 Qty Supply: Rx Expiration Date: 12/25/23 Refills Remainin Indication: FOR HIGH BLOOD PRESSURE Non-VA METOPROLOL TARTRATE 25MG TAB TAKE ONE-HALF TABLET BY MOUTH TWICE DAILY Non-VA TERAZOSIN HCL 5MG CAP TAKE 1 CAPSULE BY MOUTH ONCE DAILY SUPPLIES OUTPT GLUCOSE SENSOR FREESTYLE DEVON 2 (Status = Active) USE 1 SENSOR DIRECTED EVERY 14 DAYS Rx# [id number] Last Released: 07/25/23 Qty/Days Supply: 05/21 Rx Expiration Date: 01/28/24 Refills Remainin /jus/ MIAH BUTTS MD STAFF PHYSICIAN Signed: 08/13/2023 12:40 JOSH MARKS [facility] August 13, 2023 10:52 AM DIABETOLOGY NOTE: LOCAL TITLE: INSULIN PUMP/CGM DOWNLOAD (T) STANDARD TITLE: DIABETOLOGY NOTE DATE OF NOTE: AUGUST 13, 2023@10:52 ENTRY DATE: AUGUST 13, 2023@10:52:13 AUTHOR: MELANIA CARDENAS EXP COSIGNER: URGENCY: STATUS: COMPLETED Please select: Personal Continuous Glucose Monitor Date of Documentation:July Please see attached scanned document in [facility]. Dx: Diabetes type 2 Devon 2 /jus/ MELANIA CARDENAS LPN Specialty Care Signed: 08/13/2023 10:53 MELANIA CARDENAS [facility] August 10, 2023 01:44 PM PHYSICIAN [...] followin. Exposure to potentially hazardous substance ([facility] [id number]) 2. Cardiac pacemaker in situ 3. Chronic [...] Remote Allergy/ADR Data available for this patient [place] [facility] [place] [facility] No Known Allergies [...] the patient into personal health records (i.e. [employer]) are NOT included in this list. Non-VA medications documented outside this [place], remote inpatient orders (regardless of status) and [...] DAILY FOR PREVENTION OF BLOOD CLOTS Rx# [id number] Last Released: 01/06/23 Qty/Days Supply: Rx Expiration Date: 12/25/23 Refills Remainin Indication: FOR PREVENTION OF BLOOD CLOTS Non-VA ASPIRIN 81MG EC TAB TAKE ONE TABLET BY MOUTH EVERY DAY Non-VA ATORVASTATIN CALCIUM 20MG TAB TAKE ONE-HALF TABLET BY MOUTH OUTPT CARBOXYMETHYLCELLULOSE NA 0.5% OPH SOLN (Status = Active) INSTILL 1 DROP INTO EACH EYE TWICE DAILY Rx# [id number] Last Released: 04/04/23 Qty/Days Supply: Rx Expiration Date: 01/10/24 Refills Remainin Non-VA CHOLECALCIF 50MCG (D3-2,000UNIT) TAB TAKE ONE TABLET BY MOUTH ONCE DAILY OUTPT EMPAGLIFLOZIN 10MG TAB (Status = Discontinued) TAKE ONE-HALF TABLET BY MOUTH ONCE DAILY Rx# [id number] Last Released: 05/08/23 Qty/Days Supply: Rx Expiration [...] FOR LOW BLOOD SUGAR BELOW 70 Rx# [id number] Last Released: 07/25/23 Qty/Days Supply: Rx Expiration Date: 01/10/24 Refills Remainin OUTPT INSULIN,ASPART(EQV-NOVLG)100UN/ ML FLXPEN (Status = Active) INJECT 18 UNITS SUBCUTANEOUSLY EVERY MORNING AND INJECT 7 UNITS AT NOON AND INJECT 11 UNITS EVERY EVENING BEFORE SUPPER Rx# [id number] Last Released: 05/08/23 Qty/Days Supply: Rx Expiration Date: 05/07/24 Refills Remainin Indication: FOR DIABETES OUTPT INSULIN,GLARGINE-YFGN 100UNIT/ML PEN 3ML (Status = Active) INJECT 38 UNITS SUBCUTANEOUSLY AT BEDTIME Rx# [id number] Last Released: 05/08/23 Qty/Days Supply: Rx Expiration Date: 05/07/24 Refills Remainin Indication: FOR DIABETES OUTPT LIDOCAINE 5% OINT (Status = Active) APPLY LIBERAL AMOUNT TOPICALLY TWICE DAILY NEEDED FOR NEUROPATHY PAIN Rx# [id number] Last Released: 05/24/23 Qty/ Supply: Rx Expiration Date: 12/17/23 Refills Remainin Indication: NEUROPATHY PAPIN OUTPT LOSARTAN 50MG TAB (Status = Discontinued) TAKE ONE TABLET BY MOUTH ONCE DAILY FOR BLOOD PRESSURE/HEART Rx# [id number] Last Released: 06/06/23 QtyDays Supply: Rx Expiration Date: 12/25/23 Refills Remainin Indication: FOR HIGH BLOOD PRESSURE Non-VA METOPROLOL TARTRATE 25MG TAB TAKE ONE-HALF TABLET BY MOUTH TWICE DAILY Non-VA TERAZOSIN HCL 5MG CAP TAKE 1 CAPSULE BY MOUTH ONCE DAILY SUPPLIES OUTPT GLUCOSE SENSOR FREESTYLE DEVON 2 (Status = Active) USE 1 SENSOR DIRECTED EVERY 14 DAYS Rx# [id number] Last Released: 07/25/23 Qty/Days Supply: 05/21 Rx Expiration Date: 01/28/24 Refills Remainin /tyree BUTTS MD STAFF PHYSICIAN Signed: 08/13/2023 12:40 [...] By: 08/28/2023 07:47 /jus/ NARA MARTIN ADVANCED PARIMUTUEL CASHIER 08/28/2023 ADDENDUM STATUS: COMPLETED AMSA LEFT A VOICEMAIL AND REQUESTED A CALL BACK [phone] EXT [phone]. /jus/ NARA MARTIN ADVANCED PARIMUTUEL CASHIER Signed: 08/28/2023 07:48 MIAH BUTTS [facility]
--- OUTSIDE RECORDS SUMMARY | 2024-07-20 08:32 | XMS_ITS | Continuity of Care Document ---
Author Organization [facility] Address [address] [place] [id number]- Care Team Providers Care Toe Pounder Name Role Phone Donte Powell MD Primary Care Physician Encounter [facility] Date(s): 06/15/24 - 07/15/24 [facility] [address] [place] [id number] Encounter Type: Triage Allergies, Adverse Reactions, Alerts No Known Medication [...] Refills, Maintenance, 03/16/24 12:30:00 PM EST, Aerosol, [facility] #[id number], Partial fill upon patient request if the [...] 12:19:00 PM EDT, Route to Pharmacy Electronically, [facility], Partial fill upon patient request ifthe prescription is for a schedule II opioid drug., 168, cm, 06/01/23 19:46:00 EDT, Height, 81.5, kg, 05/31/23 14:38:00 EST, Dry Weight Start Date: 06/07/23 Stop Date: 07/07/23 Status: Ordered Quantity: 30.0 Unit: tablet Repeat number: 1 aspirin 81 mg oral delayed release tablet 81 mg, By Mouth, Daily, # 30 tablet, Refills 5, Tot. Refills 5, Maintenance, 05/25/24 12:30:00 PM EST, Do Not Route, Partial fill upon patient request if the prescription is for a schedule II opioid drug. Start Date: 05/25/24 Stop Date: 11/21/24 Status: Ordered Quantity: 30.0 Unit: tablet Repeat number: 6 atorvastatin 40 mg oral tablet 1 tablet [...] Date: 04/25/23 Status: Ordered Repeat number: 1 Eliquis 2.5 mg oral [...] 12:30:00 PM EST, Route to Pharmacy Electronically, [facility] #[id number], Partial fill upon patient request if the [...] 3:44:00 PM EDT, Route to Pharmacy Electronically, [facility], Partial fill upon patient request if [...] Date: 07/18/21 Status: Ordered Repeat number: 1 Jardiance 25 mg oral tablet 1 tablet = 25 mg, By Mouth, Daily in AM, # 30 tablet, 0 Refills, Maintenance, 05/22/24 8:46:00 PM EST, Tablet, Partial fill upon patient request if the prescription is for a schedule II opioid drug. Start Date: 05/22/24 Status: Ordered Quantity: 30.0 Unit: tablet Repeat [...] 04/25/23 Status: Ordered Repeat number: 1 [place], 30 G x 8 mm BD Ultra [...] Date: 07/15/21 Status: Ordered Repeat number: 1 Silvadene 1% cream 1 application, Topically, Every other day, for 30 days, apply to left leg wounds every other day., # 50 Gm, 1 Refills, Acute 09/13/24 1:28:00 PM EDT, 07/15/24 1:28:00 PM EDT, Cream, [facility] #[id number], Partial fill upon patient request if the prescription is for a schedule II opioid drug., 1application Topically Every other day,x30 days,Instr:apply to left leg wounds every other day., 168, cm, 07/15/24 13:11:00 EDT, Height, 78, kg, 05/22/24 20:52:00 EST, Dry Weight Start Date: 07/15/24 Stop Date: 09/13/24 Status: Ordered Quantity: 50.0 Unit: g Repeat number: 2 Indication: Disruption of external operation (surgical) wound, not elsewhere classified, initial encounter terazosin 5 mg oral capsule 5 mg, [...] Confirmed Active Peripheral vascular disease Confirmed Active Social History Social History Type Response Smoking [...] MRI Safety Implantable Status Assigning Authority Unknown [id number] Unknown 06/17/26 Unknown Unknown Active Unknown Patient Care team information Care Team Personnel Name: Marivel Sandoval Position: [facility] RN Supv Member Role: Primary Care Nurse Name: Donte Powell MD Position: [facility] Outreach Member Role: PCP Address: [address] [place] [address] [place] [address]- Telecom: Name: Jana Christie RN Position: [facility] RN Member Role: Primary Care Nurse Name: Dylon Ferguson RN Position: [facility] RN Member Role: Primary Care Nurse Name: Claudia Martinez RN Position: [facility] RN Member Role: Primary Care Nurse Name: Ketty Disla RN Position: [facility] RN Member Role: Primary Care Nurse Name: Abraham Ashley RN Position: [facility] AMB Nurse Member Role: Primary Care Nurse Name: Cleopatra Perez RN Position: [facility] RN Member Role: Primary Care Nurse Name: Nelson Potter Jr, RN Position: [facility] JULISSA RN W/OE and Tasks Member Role: Primary Care Nurse Name: Homar Cadet MD Position: [facility] Renal MD Member Role: Lifetime Consulting Physician Address: [address] [place], [place] [id number] [facility] [place] [address]- Telecom: Name: Ally Kramer RN Position: [facility] RN Member Role: Primary Care Nurse Name: Casper Landon RN Position: [facility] RN Member Role: Primary Care Nurse Name: Levy Hi RN Position: [facility] RN Member Role: Primary Care Nurse Name: Luz Moe RN Position: [facility] RN Member Role: Primary Care Nurse Name: Yu Mae RN Position: [facility] RN Member Role: Primary Care Nurse Name: Carolina Booth RN Position: [facility] SN RN Member Role: Primary Care Nurse Name: Eladia Tom RN Position: [facility] RN Member Role: Primary Care Nurse Name: Zamzam Her RN Position: [facility] RN Member Role: Primary Care Nurse Name: Zeny Camargo RN Position: [facility] RN Member Role: Primary Care Nurse Name: Thomas St RN Position: [facility] RN Member Role: Primary Care Nurse Care Team Related Persons Name: SOREN LOPEZ Name: KARIN CASTELLON Name: MYA CASTELLON Insurance Providers Guarantor name: TONY CASTELLON Health Plan Information #: 1 Payer: MEDICARE PART B OUTPT Member Number: NA Policy Number: NA Group Number: NA Health Plan Information #: 2 Payer: FOR LIFE MCR A ONLY Member Number: NA Policy Number: NA Group Number: NA
[2024-07-20 10:43] LABS: Prostate Specific Antigen 0.28 ng/mL (<0.05-4.0)
== END 2024-07-20 08:14 | disposition home or self-care (01) ==
LOC: HO.LAB 08:13
PROVIDERS: PCP Internal Medicine; Visit Provider Nurse Practitioner Family
DX: N40.1 Benign prostatic hyperplasia with lower urinary tract symptoms (principal); N13.8 Other obstructive and reflux uropathy; Z12.5 Encounter for screening for malignant neoplasm of prostate
CPT/HCPCS: 36415; 84153

== ENCOUNTER 2024-07-29 15:17 | Outpatient (AMB) | payer MEDICARE, OTHER, SELFPAY ==
--- NOTE | 2024-07-29 15:16 | A.OFFVIS_ITS ---
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 Accompanied by: Self / Same As Patient Allergies No Known Allergies Allergy (Verified 07/29/24 15:47) Medication List - Last Reconciled 07/29/24 by DARCI Bahena- amiodarone 200 mg PO BID apixaban (Eliquis) 2.5 mg PO BID atorvastatin 40 mg PO DAILY carboxymethylcellulose sodium 0.5% (Refresh Tears) drps ophthalmic (eye) cholecalciferol (vitamin D3) 125 mcg PO DAILY empagliflozin (Jardiance) mg PO fenofibrate 54 mg PO DAILY finasteride 5 mg PO DAILY fluticasone propion-salmeterol 250-50 mcg/dose (Advair Diskus) 1 ea inhalation BID furosemide 40 mg PO DAILY insulin aspart U-100 (Novolog FlexPen U-100 Insulin aspart) subcut insulin glargine (Lantus Solostar U-100 Insulin) 18 units subcut BID insulin syringe-needle U-100 (BD Insulin Syringe Ultra-Fine) As directed losartan 25 mg PO DAILY metoprolol tartrate 12.5 mg PO BID multivitamin 1 tab PO DAILY nifedipine ER 30 mg PO DAILY terazosin 5 mg PO BEDTIME 90 days HPI Comments Details: Joel is a pleasant 83 year-old male patient of . He present s to the office today for follow-up regarding his benign prostatic hyperplasia, urinary retention with incomplete bladder emptying and recurrent urinary tract infections. In discussion with the patient today he reports no bothersome urinary issues or concerns since his last office visit here approximately 1 year ago. He does however discuss having had 2 admissions to [facility] over the last 6 months for pneumonia as well as left lower extremity embolism. He discusses his frustration regarding these ongoing health issues he has been experiencing. 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 He follows at [facility] for this issue. When asked he reports compliance with finasteride every other day and terazosin as prescribed. Recent PSA results reviewed with the patient today. PSAs are ad follows: PSAs: 01/12 0.6, 06/14 0.6, 07/16 0.3 He denies any bothersome urinary issues or concerns. He denies urinary frequency, urinary urgency, incontinence, hematuria, dysuria, fever, and or chills. He does report episodes of nocturia 2 times per night however feels he is managing this well independently. In office urinalysis results reviewed with the patient today. PVR 239 mLs. He otherwise offers no other issues or concerns at this time. Patient was informed and verbally consented to the use of an ambient scribe for clinic note documentation during this visit. Discussion Notes During the consultation, I reviewed the patient's PSA level, which is currently 0.3, indicating adequate control. We discussed the management through continued use of terazosin and finasteride, emphasizing the stability of the current urologic health. I clarified that only annual PSA testing is necessary for ongoing surveillance. Additionally, we emphasized the impact of diet and lifestyle on the control of diabetes, given the patient?s medical conditions. No recommendations for altering medications were made. I gave guidance on returning for any sudden urologic changes. [facility] Medical History NK/T-cell lymphoma Atrial fibrillation Hyperlipidemia Diabetes mellitus HTN (hypertension) Rotator cuff tendonitis Surgical History History of surgery Review of Systems Const All systems reviewed & are unremarkable except as noted in HPI and below Reports no additional complaints Eyes Reports as per HPI ENT Reports as per HPI Card Details: Patient reports history of AFib on anticoagulation Resp Reports no additional complaints GI Reports no additional complaints Reports as per HPI Musc Reports no additional complaints Neuro Reports no additional complaints Psych Reports no additional complaints Endo Details: Patient reports his diabetic Physical Exam Const General: cooperative, healthy appearing, comfortable, no acute distress, well developed, alert and awake Orientation/consciousness: patient oriented x3 Limitations: no limitations HEENT Other: Scar to forehead and scalp where skin graft was utilized. Head: Yes normal to inspection Ears: hearing grossly normal bilaterally Neck Neck: Yes normal visual inspection and Yes trachea midline Chest Chest palpation & inspection: normal inspection of the chest Resp Effort & Inspection: normal respiratory effort and able to speak in complete sentences Cardio Rate: regular rate GI Inspection: Yes normal to inspection General: Yes no CVA tenderness Back/Spine/Pelvis Back: no CVA tenderness Neuro General: patient oriented x3 Extrem General: Yes normal to inspection Psych Appearance: grossly normal and well kempt Mental Status: mental status grossly normal Speech and movement: Normal speech and movement present and Clear speech present Affect: normal affect Attitude: cooperative Thought process: Normal thought process present Thought content: Normal thought content present Insight: Fair insight present (Psych) Judgement: Fair judgement present (Psych) Office Procedures Post Void Residual Post Residual Void Post Void Residual (PVR): [id number] Void Residual by ultrasound Assessment & Plan Assessment & Plan (1) BPH w urinary obs/LUTS: Code(s): N40.1 - Benign prostatic hyperplasia with lower urinary tract symptoms; N13.8 - Other obstructive and reflux uropathy Category: Medical Orders: Orders Prostate Specific Antigen 1 Year N13.8 - Other obstructive and reflux uropathy, N40.1 - Benign prostatic hyperplasia with lower urinary tract symptoms Patient Instructions: The patient had an opportunity to ask questions regarding the treatment plan. All questions were answered. Physical exam, labs, and imaging were discussed and reviewed in detail. As well as risks, benefits, and discussion of treatment choices. No major barriers to understanding were identified. The patient expressed understanding and agreement with the above treatment plan. The patient was made aware they should contact our office by phone for worsening of their current condition, the appearance of new symptoms, or with any questions or concerns. Compliance is encouraged with any medications and follow up testing that is ordered. It is a privilege to be allowed the opportunity to participate in? your urological care.? Again, if you have any questions or concerns If you have any questions or concerns please do not hesitate to contact me. The office is [phone]. This note is constructed using voice recognition software. While every effort has been made to ensure accuracy garage attendant errors may have been included. Yours sincerely, OCTAVIO Bahena Coding Diagnoses BPH w urinary obs/LUTS N40.1; N13.8 CPT Codes Post Residual Void - PVR CPT Code: 90928-Wbus Void Residual by ultrasound ([id number])
--- OUTSIDE RECORDS SUMMARY | 2024-07-29 15:49 | XMS_ITS | Patient Health Record ---
Author Organization Dean Parsons III, MD Address [address] [place] [address] Care Team Providers Care Environmental Programs Specialist Name Role Phone Donte Powell MD Primary Care Provider Dean Hopson Unavailable [phone] Allergies Allergen (clinical drug ingredient) Drug/Non Drug Allergy documented on EMR Reaction Allergy Type Onset Date Status Shellfish (FN) Shellfish-derived Products Throat closes Drug Allergy Active almond allergenic extract [place] (Diagnostic) Unknown Drug Allergy Active warfarin Warfarin Sodium rash Drug Allergy A ctive Results Component Value Reference Range Notes Complete Blood Count Auto Di ff Reviewed date:09/13/2023 05:52:47 PM Interpretation: Performing Lab:[facility], [address] [place] [address] Notes/Report: White Blood Count 5.6 4.8-10.8 X10*3/uL [...] te Reviewed date:09/13/2023 05:52:47 PM Interpretation: Performing Lab:[address] [address] Notes/Report: Erythrocyte Sedimentation Rate 53 0-15 MM/HR Patients with polycythemia and many hemoglobin abnormalities may have depressed sed rates whereas patients with anemia may have elevated sed rates. Comprehensive Met. Panel Reviewed date:09/13/2023 05:52:47 PM Interpretation: Performing Lab:[address] [address] Notes/Report: Sodium 138 135-145 mmol/L Potassium 4.0 3.3-5.1 mmol/L Chloride 107 96-108 mmol/L Carbon Dioxide 25 22-29 mmol/L Anion Gap 10 12-20 Blood Urea Nitrogen 29 9-16 mg/dL Creatinine 1.49 0.5-1.4 mg/dL Estimated Glomerular Filt Rate 45 NOTE: For -Algerian individuals, multiply the result by 1.210. Chronic [...] Dehydrogenase Reviewed date:09/13/2023 05:52:47 PM Interpretation: Performing Lab:[facility], [address] [place] [phone] Notes/Report: Lactate Dehydrogenase 216 118-273 U/L Complete Blood Count Auto Di ff Reviewed date:04/18/2024 04:55:04 PM Interpretation: Performing Lab:[facility], [address] [place] [address] Notes/Report: White Blood Count 4.6 4.8-10.8 X10*3/uL Red Blood Count 3.52 4.60-5.80 X10*6/uL Hemoglobin 10.9 14.0-18.0 g/dl Hematocrit 34.0 42.0-52.0 % Mean Corpuscular Volume 96.6 80.0-98.0 fL Mean Corpuscular Hemoglobin 31.0 27.0-33.0 pg Mean Corpuscular HGB Conc 32.1 31.0-36.0 g/dl Red Cell Distribution Width 16.3 11.0-16.0 % Platelet Count 210 160-400 X10*3/uL Mean Platelet Volume 10.7 9.4-12.4 fL Neutrophils Percent Auto 64.4 45-73 % Imm Gran Pct Auto 0.7 0.0-0.4 % Lymphocytes Percent Auto 20.4 20-40 % Monocytes Percent Auto 13.4 2-11 % Eosinophils Percent Auto 0.7 0-4 % Basophils Percent Auto 0.4 0-2 % NRBC Pct Auto 0.0 0.0-0.2 /100WBC Neutrophils Absolute Auto 2.9 2.0-8.3 x10*3/u L Imm Gran Abs Auto 0.03 0.00-0.03 X10*3/uL Lymphocytes Absolute Auto 0.9 1.2-4.9 X10*3/u L Monocytes Absolute Auto 0.6 0.1-1.2 X10*3/uL Eosinophils Absolute Auto 0.0 0.0-0.4 X10*3/u L Basophils Absolute Auto 0.0 0.0-0.2 X10*3/uL NRBC Abs Auto 0.000 0.0-0.012 X10*3/uL Comprehensive [place]. Panel Fa st Reviewed date:04/18/2024 04:55:04 PM Interpretation: Performing Lab:[facility], [address] [place] [phone] Notes/Report: Sodium 135 135-145 mmol/L Potassium 4.1 3.3-5.1 mmol/L Chloride 104 96-108 mmol/L Carbon Dioxide 21 22-29 mmol/L Anion Gap 14 12-20 Blood Urea Nitrogen 47 9-16 mg/dL Creatinine 2.11 0.5-1.4 mg/dL Estimated Glomerular Filt Rate 30 Chronic Kidney Disease: Estimated GFR < 60 mL/min/1.73m2 Severe Kidney Disease: Estimated GFR < 15 mL/min/1.73m2 Glucose Fasting 209 60-99 mg/dL A fasting glucose of 126 mg/dl or greater on more than one occasion is considered diagnostic of diabetes. Calcium 9.1 8.4-10.2 mg/dL Bilirubin Total 0.5 0.0-1.0 mg/dL Aspartate Amino Transferase 62 5-37 U/L Alanine Aminotransferase 55 0-40 U/L Total Protein 7.3 6.5-8.0 g/dL Albumin Level 3.2 3.5-5.0 g/dL Alkaline Phosphatase 70 39-117 U/L Lipid Panel Reviewed date:04/18/2024 04:55:04 PM Interpretation: Performing Lab:[facility], [address] [place] [address] Notes/Report: Triglycerides 106 <150 mg/dL Desirable Triglyceride: less than 150 mg/dL Borderline High Triglyceride 150-199 mg/dL High Triglyceride: 200-499 mg/dL Very High Triglyceride: greater than or equal to 5OO mg/dL Cholesterol 129 <200 mg/dL Desirable Cholesterol: less than 200 mg/dL Borderline High Cholesterol: 200-239 mg/dL High Cholesterol: greater than 239 mg/dL LDL Cholesterol Calculated 70 <100 mg/dL Desirable LDL: less than 100 mg/dL Near Optimal/Above Optimal LDL: 110-129 mg/dL Borderline High LDL: 130-159 mg/dL High LDL: 160-189 mg/dL Very High LDL: greater than or equal to 190 mg/dL HDL Cholesterol 38 >40 mg/dL Desirable HDL: greater than 40 mg/dL Note: This HDL assay may give artificially low results in patients with liver disease. Vitamin B12 Reviewed date:04/18/2024 04:55:04 PM Interpretation: Performing Lab:[facility], [address] [place] [phone] Notes/Report: Vitamin B12 725 200-900 pg/mL NORMAL 200-900 PG/ML INDETERMINATE 160-199 PG/ML DEFICIENT < 160 PG/ML Microalbumin, Random Reviewed date:04/18/2024 04:55:04 PM Interpretation: Performing Lab:[facility], [address] [place] [address] Notes/Report: Creatinine Urine 45.72 Microalbumin Urine < 5.0 Microalbum/Creatinine Ratio Ur TNP <30 ug/mg cr Unable to calculate albumin/creatinine ratio due to low microalbumin or creatinine result. Hemoglobin A1c Reviewed date:04/18/2024 04:55:04 PM Interpretation: Performing Lab:[address] [address] Notes/Report: Hemoglobin A1c % 8.2 <6.0 % Hemoglobin A1C Reference Range Adults: 4.8 - 6.0 % Non diabetic: < 6.0 % Goal: < 7.0 % Additional Action Suggested: > 8.0 % Note: Hemoglobin A1c results are invalid for patients with abnormal amounts of HbF. Blood transfusions may impact the HbA1c concentration in the patient sample. Estimated Average Glucose 189 eAG = Estimated average glucose which is %A1C expressed as average glucose, using the formula of the O5C-Eerycqr Average Glucose study (ADAG), Diabetes Care, Vol.31,#8, Oct. 2007 XR chest 2V Reviewed date:04/18/2024 04:55:04 PM Interpretation: Performing Lab: Notes/Report: [address] [address] XRay Report Signed Patient: Joel Logan Jr MR#: [id number] : 1940 Acct:[id number] Age/Sex: 83 / M ADM Date: 04/14/24 Loc: [facility] Attending Dr: Dean Parsons MD Ordering Physician: Dean Parsons MD Date of Service: 04/14/24 Procedure(s): XR chest 2V Accession Number(s): [id number] cc: Dean Parsons MD; Donte Powell MD EXAMINATION: XR CHEST CLINICAL INFORMATION: COPD COMPARISON: None available. TECHNIQUE: 2 views of the chest were obtained. FINDINGS: The lungs are well-expanded and clear acute process. The heart size and pulmonary vascularity is normal. There are dual pacer electrodes in right atrium and right ventricle. There is a aortic valve stent plate in place. No gross bony abnormality seen XR/XR chest 2V IMPRESSION: Unremarkable chest exam Electronically signed by: Familia Coronado MD 04/14/2024 08:33 AM EST RP Dictated By: Familia Coronado MD Signed By: <Electronically signed by Familia Coronado MD in OV> 04/14/24 0833 DD/ 0745 TD/TT: 04/14/24 0754 Professor Of Public Administration: [place] [address] XRay Report Signed Patient: Joel Logan Jr MR#: [id number] : 1940 Acct:[id number] Age/Sex: 83 / M ADM Date: 04/14/24 Loc: HO.XRAY Attending Dr: Dean Parsons MD Ordering Physician: Dean Parsons MD Date of Service: 04/14/24 Procedure(s): XR bern[address] st 2V Accession Number(s): [id number] cc: Dean Parsons MD; Donte Powell MD EXAMINATION: XR CHEST CLINICAL INFORMATION: COPD COMPARISON: None available. TECHNIQUE: 2 views of the chest were obtained. FINDINGS: The lungs are well-expanded and clear acute process. The heart size and pulmonary vascularit y is normal. There are dual pacer electrodes in right atrium and rig ht ventricle. There is a aortic valve stent plate in place. No gross bony abnormality seen XR/XR chest 2V IMPRESSION: Unremarkable chest exam Electronically pastor d by: Familia Coronado MD 04/14/2024 08:33 AM EST RP Dictated By: Familia Coronado MD Signed By: <Electronically signed by Familia Coronado MD in OV> 04/14/24 0833 DD/ 0745 TD/TT: 04/14/24 0754 Professor Of Public Administration: NEIL Reason For Referral No Information Medications Medication SIG (Take, Route, Frequency, Duration) Notes Start Date End Date Status NovoLOG FlexPen 100 UNIT/ML Subcutaneous Active B12 Folate Active Amiodarone HCl 200 MG Oral Active Atorvastatin Calcium 40 MG Oral Active Losartan Potassium 25 MG Oral Active Toprol XL 25 MG 1/2 tablet Orally On ce a day 06/18/2022 Active Lantus 100 UNIT/ML 18Unit Subcutaneous Once a day Active Lipitor 40 MG 1 tablet Orally Once a day Active Terazosin HCl 5 MG 1 capsule at bedtime Orally Once a day Active Finasteride 5 MG 1 tablet Orally Once a day Active Carboxymethylcellulose Sodium Active Furosemide 40 MG TAKE 1 TABLET BY SHOBHA TH DAILY Oral Active Aspir-81 Active NIFEdipine ER 30 MG TAKE 1 TABLET BY SHOBHA TH EVERY DAY Oral Active Advair Diskus 100-50 MCG/ACT 1 puff Inha lation Twice a day Active Eliquis 5 MG 1 tablet Orally once a day Active Fenofibrate 54 MG Oral Ac tive Immunizations Vaccine Route Administration Date Status Comme [...] Problem Status W/U Status Risk Notes Problem 6849210 Former smoker (Z87.891) Active confirmed He remains abstinent. He oglesby a planned to prevent relapse and times of stress and illness. Problem 177958818 Overweight (E66.3) Active confirmed His body mass index is 17. We discussed his diet and nutrition. We made a plan to lose weight at a rate of one half of a pound per week. Problem 58400744 Diabetes mellitu s (E11.9) Active confirmed His diabetes an d he is compliant with his treatment. No change in his regimen as necessary. Problem 279873671 Skin cancer (C44.90) Active confirmed The lesion on the left upper eyelid will be removed June 26, 2023. Problem 206634407 Chronic anticoagulation (Z79.01) Active confirmed He has had no bleeding on the Eliquis which he takes for atrial fibrillation. Problem 545705952 Lymphoma (C85.90) Active confirmed There is no sign of recurrent N/K T-cell lymphoma in any site at this time. Surveillance will continue at six-month intervals. He will return immediately for any symptoms of relapse. The nodular lesion on the right orthodoxy is in an area of previous disease but appears to be a basal cell. Problem 06205627 Essential hypertension (I10) Active confirmed His blood pressure is well controlled today and no change in his regimen was needed. Problem 64011521 Cataracts, bilateral (H26.9) Active confirmed He is nik g to have surgery October 23, 2022. Problem 10890246 Atrial fibrillation (I48.91) Active confirmed He is in a sinu s rhythm today with a rate of about 80. His cardiovascular status stable.. Problem 94795824 Hyperlipemia (E78.5) Active confirmed His lipids have been well controlled. No change in his regimen was needed. His statin therapy was continued. Problem 57607078 Peripheral vascular disease in diabetes mellitus (E11.51) Active confirmed He is curr ently able to conduct all of the activities of daily living without difficulty. He experiences some claudication with prolonged walking. He is seen by vascular surgery at regular intervals. Problem Basal cell carcinoma of face (C44.310) Active confirmed Basal cell carcinoma on his chin has been removed and the scar is healing. Problem 02498522 Acute kidney injury (N17.9) Active confirmed His BUN and creatinine are substantially elevated from baseline on the most recent blood work from the end of March. This was in the context of an episode of pneumonia. He has been referred back to primary care for management of the residual pneumonia and the renal function. 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 There is an extensive procedure and skin grafting, which is now healing. There is no sign of residual disease. Vital Signs Heart Rate 83 /min 05/04/2024 All Temperature 97.9 degrees Fahrenheit 05/04/2024 All Blood pressure diastolic 47 mm Hg 05/04/2024 All Height 67 in 05/04/2024 All Blood pressure systolic 136 mm Hg 05/04/2024 All Weight 177 lbs 05/04/2024 All BMI 27.72 kg/m2 05/04/2024 All Encounters Encounter Location Date Provider Diagnosis Dean Parsons III, MD [address] [place] [address] [address] [place] [address] 10/02/2023 Dean Parsons Lymphoma C85.90 ; Overweight E66.3 ; Diabetes mellitus E11.9 ; Vitamin B12 deficiency E53.8 ; Essential hypertension I10 ; Atrial fibrillation I48.91 ; Peripheral vascular disease in diabetes mellitus E11.51 ; Skin cancer C44.90 and Former smoker Z87.891 Dean Parsons III, MD [address] [place] [address] [address] [place] [address] 05/04/2024 Dean Issa Lymphoma C85.90 ; Overweight E66.3 ; Diabetes mellitus E11.9 ; Hyperlipemia E78.5 ; Essential hypertension I10 ; History of pneumonia Z87.01 ; Acute kidney injury N17.9 ; Squamous cell carcinoma of nose C44.321 ; Basal cell carcinoma of face C44.310 ; Atrial fibrillation I48.91 and Former smoker Z87.891 Assessments Encounter Date Diagnosis (ICD Code) Assessment Notes Treatment Notes Treatment Clinical Notes 10/02/2023 Overweight (ICD-10 - E66.3) His body [...] relapse. The nodular lesion on the right orthodoxy is in an area of previous disease but appears to be a basal cell. 05/04/2024 Overweight (ICD-10 - E66.3) His body mass index is 17. We discussed his diet and nutrition. We made a plan to lose weight at a rate of one half of a pound per week. 05/04/2024 Lymphoma (ICD-10 - C85.90) There is no sign of recurrent N/K T-cell lymphoma in any site at this time. Surveillance will continue at six-month intervals. He will return immediately for any symptoms of relapse. The nodular lesion on the right orthodoxy is in an area of previous disease but appears to be a basal cell. 10/02/2023 Diabetes mellitus (ICD-10 - E11.9) His diabetes and he is compliant with his treatment. No change in his regimen as necessary. 05/04/2024 Diabetes mellitus (ICD-10 - E11.9) His diabetes and he is compliant with his treatment. No change in his regimen as necessary. 10/02/2023 Vitamin B12 deficiency (ICD-10 - E53.8) Continues on replacement therapy. 05/04/2024 Hyperlipemia (ICD-10 - E78.5) His lipids have been well controlled. No change in his regimen was needed. His statin therapy was continued. 10/02/2023 Essential hypertension (ICD-10 - I10) His blood pressure is well controlled today at 121/70 and no change in his regimen was needed. 05/04/2024 Essential hypertension (ICD-10 - I10) His blood pressure is well controlled today and no change in his regimen was needed. 10/02/2023 Atrial fibrillation (ICD-10 - I48.91) He is in a sinus rhythm today with a rate of about 80. His cardiovascular status stable.. 05/04/2024 History of pneumonia (ICD-10 - Z87.01) She recently had a visit to a local emergency room for pneumonia which was treated as an outpatient. He is still short of breath with exertion but substantially improved. He has been referred back to primary care for management. 10/02/2023 Peripheral vascular disease in diabetes mellitus (ICD-10 - E11.51) He is currently able to conduct all of the activities of daily living without difficulty. He experiences some claudication with prolonged walking. He is seen by vascular surgery at regular intervals. 05/04/2024 Acute kidney injury (ICD-10 - N17.9) His BUN and creatinine are substantially elevated from baseline on the most recent blood work from the end of March. This was in the context of an episode of pneumonia. He has been referred back to primary care for management of the residual pneumonia and the renal function. 10/02/2023 Skin cancer (ICD-10 - C44.90) The lesion on the left upper eyelid will be removed June 26, 2023. 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 There is an extensive procedure and skin grafting, which is now healing. There is no sign of residual disease. 10/02/2023 Former smoker (ICD-10 - Z87.891) He remains abstinent. He oglesby a planned to prevent relapse and times of stress and illness. 05/04/2024 Basal cell carcinoma of face (ICD-10 [...] C) 10/10/2022 PROFILE, RANDOM (COMPREHENSIVE METABOLIC ) 06/16/2018 PROFILE, RANDOM (COMPREHENSIVE METABOLIC ) 06/18/2021 PROFILE, RANDOM (COMPREHENSIVE METABOLIC ) 12/13/2016 PROFILE, RANDOM (COMPREHENSIVE METABOLIC ) 12/16/2017 PROFILE, RANDOM (COMPREHENSIVE METABOLIC ) 06/16/2020 PROFILE, RANDOM (COMPREHENSIVE METABOLIC ) 12/17/2019 PROFILE, RANDOM (COMPREHENSIVE METABOLIC ) 05/28/2019 PROFILE, RANDOM (COMPREHENSIVE METABOLIC ) 06/13/2017 PROFILE, RANDOM (COMPREHENSIVE METABOLIC ) 05/29/2023 PROFILE, RANDOM (COMPREHENSIVE METABOLIC ) 06/18/2019 PROFILE, RANDOM (COMPREHENSIVE METABOLIC ) 2021 LIPID PANEL 10/10/2022 LDH 2021 LDH 05/29/2023 LDH 06/18/2019 LDH 10/10/2022 LDH 06/16/2018 LDH 06/18/2021 LDH 12/13/2016 LDH 12/16/2017 LDH 06/16/2020 LDH 12/17/2019 LDH 02/06/2023 LDH 05/28/2019 LDH 06/13/2017 PSA, TOTAL SCREEN 2021 CBC w DIFF 02/06/2023 CBC w DIFF 05/28/2019 CBC w DIFF 06/13/2017 CBC w DIFF 05/29/2023 CBC w DIFF 06/18/2019 CBC w DIFF 10/10/2022 CBC w DIFF 2021 CBC w DIFF 06/16/2018 CBC w DIFF 06/18/2021 CBC w DIFF 12/13/2016 CBC w DIFF 12/16/2017 CBC w DIFF 06/16/2020 CBC w DIFF 12/17/2019 SED RATE (ESR) 12/17/2019 SED RATE (ESR) 02/06/2023 SED RATE (ESR) 05/28/2019 SED RATE (ESR) 05/29/2023 SED RATE (ESR) 06/18/2019 SED RATE (ESR) 10/10/2022 SED RATE (ESR) 2021 SED RATE (ESR) 06/16/2018 SED RATE (ESR) 06/18/2021 SED RATE (ESR) 06/16/2020 XR CHEST 2 VIEW PA & LAT 12/16/2017 CBC WITH AUTO DIFF 10/02/2023 Lipid Panel 02/06/2023 Lipid Panel 10/02/2023 Vitamin B12 10/02/2023 Microalbumin, Random 10/02/2023 Hemoglobin A1c 10/02/2023 Hemoglobin A1c 02/06/2023 Next Appt Details Provider Name:Dean Parsons, 11/02/2024 02:30:00 PM, [address] [place] [address] [address] [facility] [place], [place], [address], Insurance Providers Payer Name Payer Address Payer Phone Subscriber Number Group Number Insured Name Patient Relationship to Insured Coverage Start Date Coverage End Date MEDICARE NGS [address] [place] [phone] [id number] Matilde levineJoel Self - patient is the insured [employer] [address] [place] [address] [id number] Carriehussain Joel levine Self - patient is the insured Medical (General) History Medical History History ICD Code diabetes mellitus hyperlipidemia hypertension cataracts peripheral vascular disease keloid on chest atrial fibrillation 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
--- OUTSIDE RECORDS SUMMARY | 2024-07-29 15:49 | XMS_ITS ---
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 The nodular lesion on the right yarsanism is in an area of previous disease [...] OV Provider Name:Dean Parsons, 11/02/2024 02:30:00 PM, [address] [place] [address] DR [facility] [place], [place], [address], Progress Notes * Joel LOGANB:[birth year] (82 yo M)Acc No.[id number]:10/02/2023 Progress Notes Patient:?Joel Logan Provider:?Dean Parsons MD :1940???Age:82 Y???Sex:Male Srinivasan e:10/02/2023 Address:[address] [place], [place] [id number] Pcp:Donte Powell MD Subjective: * Chief Complaints: * ???Lymphoma in remissionMult iple cutaneous squamous cell carcinomaAortic stenosisHypertensionPeripheral arterial diseaseAtrial fibrillationAnticoagulation * HPI: ???COVID-19 Screening:? 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 No sign of the disease was found today. He recently spent several nights at the [facility] with uncontrolled atrial fibrillation and aortic [...] biopsy and aspirate autologous stem cell transplant [facility] left femoral popliteal bypass surgery 04/2013vascular [...] and is retired. He was born in [place], [place]. He has 4 biological children. 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 * Medications:?TakingCarboxyme thylcellulose [...] relapse. The nodular lesion on the right yarsanism is in an area of previous disease [...] Provider:?Dean Parsons MD Date:?09/21 Generated for Sherifi ng/Fajerrig/eTransmitting on:?07/29/2024 03:49 PM EDT History and Physical Notes * [...]
--- OUTSIDE RECORDS SUMMARY | 2024-07-29 15:50 | XMS_ITS | Encounter Summary ---
Author Organization [facility] Address [address] [place] [address] Care Team Providers Care Or Director Name Role Phone Donte Powell MD Primary Care Provider [phone] Encounter Details Date Type Department Care Team (Late st Contact Info) Description 05/29/2024 Lab Requisition [facility] - Main Lab [address] [facility] [place] [address] Ross Saul MD [address] [place] [address] Unspecified atrial fibrillation (CMS/HCC V24, [...] [facility] - 06/03/2024 6:05 AM EDT Test(s) 250657-Thnmjcztt GI; 007498-Zvsqjqbdc GII was developed and its performance characteristics determined by [facility]. It has not been cleared or approved by the Food and Drug Administration. Ross Saul MD LAB MICROBIOLOGY - GENERAL ORDE [facility] Final Result Performing Organization Address City/[facility]/ZIP Co de Phone Number [facility] * - Miscellaneous Test (05/29/2024 1:45 PM EST) Miscellaneous Test COMMENT 2024 6:05 AM EDT [facility] Stool 05/29/2024 1:45 PM EST 05/29/2024 6:13 PM EST Narrative [facility] - 06/03/2024 6:05 AM EDT Performed At: [address] [id number] Cody Paul MD Ph:[phone] Performed At: 02 [facility] [place] [address] [place] [address], [address] [place] [id number] Jordan Aquino MD Ph:[phone] Ross Saul MD LAB BLOOD ORDERABLES Final Resu lt Performing Organization Address City/[facility]/ZIP Co de Phone Number [facility] documented in this encounter Visit Diagnoses Diagnosis Unspecified atrial fibrillation (CMS/HCC V24, CMS/HCC V28) Diarrhea, unspecified documented in this encounter Additional Health Concerns Infection Onset Date Last Indicated Resolved Time Norovirus 05/29/2024 05/29/2024 documented as of this encounter Care Teams Or Director Relationship Specialty Start Date End Date Donte Powell MD [address] [place] [address] Dr Rl [place] PCP - General Internal Medicine 09/21/18 documented as of this encounter
--- OUTSIDE RECORDS SUMMARY | 2024-07-29 15:50 | XMS_ITS | Encounter Summary ---
Author Organization [facility] Address [address] [place] [address] Care Team Providers Care Port Cdl A Driver Name Role Phone Donte Powell MD Primary Care Provider [phone] Encounter Details Date Type Department Care Team (Late st Contact Info) Description 06/05/2024 Lab Requisition [facility] - Main Lab [address] [facility] [address] Ross Saul MD [address] [place] [address] Unspecified atrial fibrillation (CMS/HCC V24, [...] mmol/L LAB CHEMISTRY METHOD 06/07/2024 10:[address] [facility] Potassium 4.1 3.5 - 5.5 mmol/L LAB CHEMISTRY METHOD 06/07/2024 10:[address] [facility] Chloride 108 96 - 110 mmol/L LAB CHEMISTRY METHOD 06/07/2024 10:[address] [facility] CO2 23 21 - 32 mmol/L LAB CHEMISTRY METHOD 06/07/2024 10:[address] [facility] Anion Gap 11 3 - 11 LAB CHEMISTRY METHOD 06/07/2024 10:[address] [facility] Glucose 115(H) 70 - 100 mg/dL LAB CHEMISTRY METHOD 06/07/2024 10:[address] [facility] BUN 21 5 - 25 mg/dL LAB CHEMISTRY METHOD 06/07/2024 10:[address] [facility] Creatinine 1.37(H) 0.70 - 1.30 mg/dL LAB CHEMISTRY METHOD 06/07/2024 10:[address] [facility] eGFR 52(L) >=60 mL/min/1. 73m2 LAB CHEMISTRY METHOD 06/07/2024 10:[address] [facility] Comment:Calculation based on the??Chronic Kidney Disease Epidemiology Collaboration (CKD-EPI) equation refit??without adjustment for race. BUN/Creatinine Ratio 15.3 LAB CHEMISTRY METHOD 06/07/2024 10:[address] [facility] Calcium 8.3(L) 8.5 - 10.5 mg/dL LAB CHEMISTRY METHOD 06/07/2024 10:[address] [facility] AST (SGOT) 92(H) 10 - 42 unit/L LAB CHEMISTRY METHOD 06/07/2024 10:[address] [facility] ALT (SGPT) 64(H) 10 - 60 unit/L LAB CHEMISTRY METHOD 06/07/2024 10:[address] [facility] Alkaline Phosphatase 139(H) 42 - 121 unit/L LAB CHEMISTRY METHOD 06/07/2024 10:44 AM EDT [facility] Total Protein 6.1 6.0 - 8.0 g/dL LAB CHEMISTRY METHOD 06/07/2024 10:44 AM EDT [facility] Albumin 2.4(L) 3.2 - 5.0 g/dL LAB CHEMISTRY METHOD 06/07/2024 10:44 AM EDT [facility] Total Bilirubin 0.5 0.0 - 1.4 mg/dL LAB CHEMISTRY METHOD 06/07/2024 10:44 AM EDT [facility] Blood Venous blood specimen / Unknown Venipuncture / Unknown 06/07/2024 5:10 AM EDT 06/07/2024 9:45 AM EDT us Ross Saul MD LAB BLOOD ORDERABLES Final Resu lt [facility] [address] [place] [address], [place] [phone] * (ABNORMAL) Complete blood count (06/07/2024 5:10 AM EDT) WBC 4.7(L) 4.8 - 10.8 K/mcL LAB HEMETOLOGY METHOD 06/07/2024 10:26 AM EDT [facility] RBC 2.80(L) 4.50 - 5.50 M/mcL LAB HEMETOLOGY METHOD 06/07/2024 10:26 AM EDT [facility] Hemoglobin 8.8(L) 13.5 - 17.5 g/dL LAB HEMETOLOGY METHOD 06/07/2024 10:26 AM T [facility] Hematocrit 28.8(L) 42.0 - 54.0 % LAB HEMETOLOGY METHOD 06/07/2024 10:26 AM EDT [facility] MCV 102.5(H) 79.0 - 98.0 FL LAB HEMETOLOGY METHOD 06/07/2024 10:26 AM EDT [facility] MCH 31.3 27.0 - 32.0 pcg LAB HEMETOLOGY METHOD 06/07/2024 10:26 AM EDT [facility] MCHC 30.6(L) 32.0 - 37.0 g/dL LAB HEMETOLOGY METHOD 06/07/2024 10:26 AM EDT [facility] RDW 17.2(H) 11.0 - 15.0 % LAB HEMETOLOGY METHOD 06/07/2024 10:26 AM EDT [facility] Platelets 220 130 - 400 K/mcL LAB HEMETOLOGY METHOD 06/07/2024 10:26 AM EDT [facility] MPV 11.5(H) 7.0 - 11.0 FL LAB HEMETOLOGY METHOD 06/07/2024 10:26 AM EDT [facility] NRBC 0.0 <1.0 % LAB HEMETOLOGY METHOD 06/07/2024 10:26 AM EDT [facility] NRBC Absolute 0.00 <0.10 K/mcL LAB HEMETOLOGY METHOD 06/07/2024 10:26 AM EDT [facility] Blood Venous blood specimen / Unknown Venipuncture / Unknown 06/07/2024 5:10 AM EDT 06/07/2024 9:43 AM EDT us Ross Saul MD LAB BLOOD ORDERABLES Final Resu lt [facility] [address] [place] [address], documented in this encounter Visit Diagnoses Diagnosis Unspecified atrial fibrillation (CMS/HCC V24, CMS/HCC V28) documented in this encounter Additional Health Concerns Infection Onset Date Last Indicated Resolved Time Norovirus 05/29/2024 05/29/2024 documented as of this encounter Care Teams Port Cdl A Driver Relationship Specialty Start Date End Date Donte Powell MD [address] [place] [address] Dr Rl [place] PCP - General Internal Medicine 09/21/18 documented as of this encounter
--- OUTSIDE RECORDS SUMMARY | 2024-07-29 15:50 | XMS_ITS | Encounter Summary ---
Author Organization [facility] Address [address] [place] [address] Care Team Providers Care Shipyard Supervisor Name Role Phone Donte Powell MD Primary Care Provider [phone] Encounter Details Date Type Department Care Team (Late st Contact Info) Description 06/03/2024 Lab Requisition [facility] - Main Lab [address] [place] [address] Ross Saul MD [address] [place] [address] Unspecified atrial fibrillation (CMS/HCC V24, [...] documented as of this encounter Care Teams Shipyard Supervisor Relationship Specialty Start Date End Date Donte Powell MD [address] [place] [address] Dr Rl [place] PCP - General Internal Medicine 09/21/18 documented as of this encounter
--- OUTSIDE RECORDS SUMMARY | 2024-07-29 15:50 | XMS_ITS ---
Author Organization Dean Parsons III, MD Address [address] [place] [address] Care Team Providers Care Copping Machine Operator Name Role Phone Donte Powell MD Primary Care Provider Dean Hopson Unavailable [phone] Allergies Allergen (clinical drug ingredient) Drug/Non Drug Allergy documented on EMR Reaction Allergy Type Onset Date Status almond allergenic extract [place] (Diagnostic) Unknown Drug Allergy Active Shellfish (FN) [...] Problem Status W/U Status Risk Notes Problem [id number] Acute kidney injury (N17.9) Active confirmed His [...] Encounters Encounter Location Date Provider Diagnosis Dean Parsnos III, MD [address] [place] [address] [place] [address] 05/04/2024 Dean Parsons Lymphoma C85.90 ; Overweight [...] relapse. The nodular lesion on the right hinduism is in an area of previous disease [...] 40 MG TAKE 1 TABLET BY SHOBHA DAILY Oral Lantus 100 UNIT/ML 18Unit Subcutaneous Once a day Finasteride 5 MG 1 tablet Orally Once a day Next Appt Details Follow Up: 6 Months, 6 month s, Reason: OV no tests, Routine check-up Provider Name:Dean Parsons, 11/02/2024 02:30:00 PM, [address] [place] [address] DR, [facility] [address], [place], [address], Progress Notes * RAVINDER Joel EvyDOB:[birth year] (83 yo M)Acc No.[id number]:05/04/2024 Progress Notes Patient:?ROSAURARADHAMartínezJoel Evy Provider:?Dean Parsons MD :1940???Age:83 Y???Sex:Male Srinivasan e:05/04/2024 Address:[address] [place] [address] Pcp:Donte Powell MD Subjective: * Chief Complaints: * ???Recent episode of pneumon iaNK T-cell lymphomaDiabetesHypertensionHyperlipidemiaPeripheral arterial diseaseAtrial fibrillationMultiple skin cancersChronic anticoagulation * HPI: ???COVID-19 Screening:?Questions?Have you had any new onset fever, chills, cough, congestion, sore throat, shortness of breath, muscle aches??Yes ???:? The patient, an 83-year-old male, has a [...] discharge. Blood Sugar Level is 209. * ROS:?General/Constitutional:?pain?only normal aches and pains.?Chills?denies.?Fatigue?admits.?Fever?denies.?Ophthalmologic:?Admits?Discharge.?ENT:?Decreased hearing?in both ears.?Respiratory:?Cough?denies.?Cardiovascular:?Chest pain with exertion?denies.?Dyspnea on exertion?denies.?Shortness of breath?with exertion.?Gastrointestinal:?Constipation?denies.?Decreased appetite?denies.?Diarrhea?denies.?Heartburn?denies.?Nausea?denies.?Rectal bleeding?denies.?Vomiting?denies.?Hematology:?bruising?denies.?petechiae?denies.?Swollen glands?none have been noted.?Genitourinary:?Frequent urination?once a night.?Musculoskeletal:?Muscle aches?denies.?Painful joints?denies.?Sciatica?denies.?Weakness?denies.?Skin:?Itching?denies.?Rash?denies.?Skin lesion(s)?denies.?Neurologic:?Difficulty speaking?denies.?Dizziness?denies.?Headache?denies.?Low back pain?denies.?Psychiatric:?Depressed mood?denies.? * Medical History:? * Surgical History:?appendecto my as a child bypass graft left thigh repeat left leg femoral-popliteal bypass graft 01/07/2013bone marrow biopsy and aspirate autologous stem cell transplant [facility] left femoral popliteal bypass surgery 04/2013vascular bypass surgery left lower extremity 10/2015angioplasty left leg [facility] 2017skin cancer removed from ear 2018Basal cell carcinoma of face 2021No history * Hospitalization/Major Diagno stic Procedure:?No history * Family History:?Father: onelia marti 95 yrs, skin cancer, , hyperlipidemia, diagnosed with Hyperlipidemia, Cancer.?Mother: 76 yrs, diabetes mellitus, liver cancer, diagnosed with DM, Cancer.?2 brother(s) , 1 sister(s) - healthy. 3 [...] and is retired. He was born in [place], [place]. He has 4 biological children. 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 * Medications:?TakingAspir-81 Advair [...] EffectsAlmond (Diagnostic)no[Allergies Verified] Objective: * Vitals:?Ht: 67, Wt:177, BMI: 27.72, BP:136/47, HR:83, Temp:97.9, Wt-k.29. All. * ???Past Orders: Lab:Hemoglobin A1c * Collection Date 04/14/2024 12/17/2021 12/15/2020 Collection Time 07:38 AM 01:16 PM 09:35 AM Order Date 04/14/2024 12/17/2021 12/15/2020 Hemoglobin A1c % 8.2?H (Ref Range: <6.0 %) 7.2 (Ref Range: %) 10.5 (Ref Range: %) Estimated Average Glucose 189 (Ref Range: mg/dL) 160 (Ref Range: mg/dL) 255 (Ref Range: mg/dL) * Lab:Complete Blood Count Aut o Diff * Collection Date 04/14/2024 09/10/2023 01/29/2023 Collection Time 07:38 AM 07:17 AM 07:05 AM Order Date 04/14/2024 09/10/2023 01/29/2023 White Blood Count 4.6?L (Ref Range: 4.8-10.8 X10*3/uL) 5.6 (Ref Range: 4.8-10.8 X10*3/uL) 6.7 (Ref Range: 4.8-10.8 X10*3/uL) Red Blood Count 3.52?L (Ref Range: 4.60-5.80 X10*6/uL) 3.82?L (Ref Range: 4.60-5.80 X10*6/uL) 4.05?L (Ref Range: 4.60-5.80 X10*6/uL) Hemoglobin 10.9?L (Ref Range: 14.0-18.0 g/dl) 11.7?L (Ref Range: 14.0-18.0 g/dl) 12.6?L (Ref Range: 14.0-18.0 g/dl) Hematocrit 34.0?L (Ref Range: 42.0-52.0 %) 36.0?L (Ref Range: 42.0-52.0 %) 40.6?L (Ref Range: 42.0-52.0 %) Mean Corpuscular Volume 96.6 (Ref Range: 80.0-98.0 fL) 94.2 (Ref Range: 80.0-98.0 fL) 100.2?H (Ref Range: 80.0-98.0 fL) Mean Corpuscular Hemoglobin 31.0 (Ref Range: 27.0-33.0 pg) 30.6 (Ref Range: 27.0-33.0 pg) 31.1 (Ref Range: 27.0-33.0 pg) Mean Corpuscular HGB Conc 32.1 (Ref Range: 31.0-36.0 g/dl) 32.5 (Ref Range: 31.0-36.0 g/dl) 31.0 (Ref Range: 31.0-36.0 g/dl) Red Cell Distribution Width 16.3?H (Ref Range: 11.0-16.0 %) 14.6 (Ref Range: [...] Pct Auto 0.7?H (Ref Range: 0.0-0.4 %) 0.7?H (Ref Range: 0.0-0.4 %) 0.6?H (Ref Range: 0.0-0.4 %) Lymphocytes Percent Auto 20.4 (Ref Range: 20-40 %) 19.9?L (Ref Range: 20-40 %) 20.7 (Ref Range: 20-40 %) Monocytes Percent Auto 13.4?H (Ref Range: 2-11 %) 9.7 (Ref Range: [...] Abs Auto 0.03 (Ref Range: 0.00-0.03 X10*3/uL) 0.04?H (Ref Range: 0.00-0.03 X10*3/uL) 0.04?H (Ref Range: 0.00-0.03 X10*3/uL) Lymphocytes Absolute Auto 0.9?L (Ref Range: 1.2-4.9 X10*3/uL) 1.1?L (Ref Range: 1.2-4.9 X10*3/uL) 1.4 (Ref [...] 0.000 (Ref Range: 0.0-0.012 X10*3/uL) * Lab:Idalia gardiner Fast * Collection Date 04/14/2024 01/29/2023 Collection Time 07:38 AM 07:05 AM Order Date 04/14/2024 01/29/2023 Sodium 135 (Ref Range: 135-145 mmol/L) 140 (Ref Range: 135-145 mmol/L) Bilirubin Total 0.5 (Ref Range: 0.0-1.0 mg/dL) 0.6 (Ref Range: 0.0-1.0 mg/dL) Aspartate Amino Transferase 62?H (Ref Range: 5-37 U/L) 24 (Ref Range: 5-37 U/L) Alanine Aminotransferase 55?H (Ref Range: 0-40 U/L) 21 (Ref Range: 0-40 U/L) Total Protein 7.3 (Ref Range: 6.5-8.0 g/dL) 7.4 (Ref Range: 6.5-8.0 g/dL) Albumin Level 3.2?L (Ref Range: 3.5-5.0 g/dL) 3.9 (Ref Range: 3.5-5.0 g/dL) Alkaline Phosphatase 70 (Ref Range: 39-117 U/L) 68 (Ref Range: 39-117 U/L) Potassium 4.1 (Ref Range: 3.3-5.1 mmol/L) 4.2 (Ref Range: 3.3-5.1 mmol/L) Chloride 104 (Ref Range: 96-108 mmol/L) 109?H (Ref Range: 96-108 mmol/L) Carbon Dioxide 21?L (Ref Range: 22-29 mmol/L) 24 (Ref Range: 22-29 mmol/L) Anion Gap 14 (Ref Range: 12-20) 11?L (Ref Range: 12-20) Blood Urea Nitrogen 47?H (Ref Range: 9-16 mg/dL) 16 (Ref Range: 9-16 mg/dL) Creatinine 2.11?H (Ref Range: 0.5-1.4 mg/dL) 1.23 (Ref Range: 0.5-1.4 mg/dL) Estimated Glomerular Filt Rate 30 56 Glucose Fasting 209?H (Ref Range: 60-99 mg/dL) 143?H (Ref Range: 60-99 mg/dL) Calcium 9.1 (Ref [...] 65 (Ref Range: <100 mg/dL) HDL Cholesterol 38?L (Ref Range: >40 mg/dL) 33?L (Ref Range: >40 mg/dL) ???Lab:Vitamin B12 (Order Date - 04/14/2024) (Collection Date & Time - 04/14/2024 07:38 AM)?ValueReference Range?Vitamin [id number] - pg/mL * Lab:Microalbumin, Random * Collection [...] 04/14/2024) (Performed Date - 04/14/2024) * Examination: ???General Examination: ?GENERAL APPEARANCE:?pleasant, well nourished, well developed, in no acute distress, calm and relaxed, overweight, man.?HEAD:?atraumatic, normocephalic.?EYES:?eomi, perrla, anicteric, conjugate.?EARS:?Normal anatomy with bilateral hearing loss.?NOSE:?septum intact.?ORAL CAVITY:?normal, unremarkable.?NECK/THYROID:?no jugular venous distention, no carotid bruit, thyroid normal.?LYMPH NODES:?no enlarged lymph nodes,spleen normal.?SKIN:?no suspicious lesions, anictericSurgical scar bridge of nose well- healed without tumor recurrence.?HEART:?no clicks, gallops, murmurs, or rubs, regular rhythm, S1, S2 normal, no s3, or vascular bruits.?LUNGS:?clear to auscultation .?BREASTS:??no masses palpable bilaterally.?ABDOMEN:?bowel sounds normal, no ascites, no organomegaly, no mass, overweight.?RECTAL EXAM:?not examined.?MUSCULOSKELETAL:?extremities unremarkable, no clubbing, cyanosis or edema.?PERIPHERAL PULSES:?normal.?NEUROLOGIC:?alert and oriented, cranial nerves 2-12 grossly intact, deep tendon reflexes 2+ symmetrical, motor strength normal upper and lower extremities, sensory exam intact.?PSYCH:?alert, oriented.? : ???Lungs:Normal, Legs: Normal circulation, Blood: Normal liver and kidney functions, Blood Sugar Level: 209. ??? 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 Surveillance will continue at six-month intervals. He will return immediately for any symptoms of relapse. The nodular lesion on the right hinduism is in an area of previous disease but appears to be a basal cell.???2.?Overweight - E66.3???Notes :His body mass index is 17. We discussed his diet and nutrition. We made a plan to lose weight at a rate of one half of a pound per week.???3.?Diabetes mellitus - E11.9???Notes :His diabetes and he is compliant with his treatment. No change in his regimen as necessary.???4.?Hyperlipemia - E78.5???Notes :His lipids have been well controlled. No change in his regimen was needed. His statin therapy was continued.???5.?Essential hypertension - I10???Notes :His blood pressure is well controlled today and no change in his regimen was needed.???6.?History of pneumonia - Z87.01???Notes :She recently had a visit to a local emergency room for pneumonia which was treated as an outpatient.? He is still short of breath with exertion but substantially improved.? He has been referred back to primary care for management.???7.?Acute kidney injury - N17.9???Notes :His BUN and creatinine are substantially elevated from baseline on the most recent blood work from the end of March.? This was in the context of an episode of pneumonia.? 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 There is an extensive procedure and skin grafting, which is now healing. There is no sign of residual disease.???9.?Basal cell carcinoma of face - C44.310???Notes :Basal cell carcinoma on his chin has been removed and the scar is healing.???10.?Atrial fibrillation - I48.91???Notes :He is in a sinus rhythm today with a rate of about 80. His cardiovascular status stable..???11.?Former smoker - Z87.891???Notes :He remains abstinent. He oglesby a planned to prevent relapse and times of stress and illness.??? Plan: * Treatment: 2.?Others? Continue Aspir-81;?Continue Advair [...] done: Medical or Other reason not done ?Smoking/Tobacco Use?Patient counseled on the dangers of tobacco use and urged to quit.?05/04/2024 ??DM Care Plan:?Patient Lifestyle Goals?Patient wants to be able to manage diabetes without too much effort.?Treatment Goals?Blood Sugars less than < 115, HbA1C < 7.0.?Barriers?no barriers.?Self-Managment Goals?Work on weight loss, with a goal of losing 1 lb per week.? * Follow Up:?6 Months, 6 month s (Reason: OV no tests, Routine check-up) * Images: * Sign off status: Completed true * Provider:?Dean Parsons MD Date:?04/24 Generated for Pj manning/Bran/eTransmitting on:?07/29/2024 03:49 PM EDT History and Physical [...]
--- OUTSIDE RECORDS SUMMARY | 2024-07-29 15:50 | XMS_ITS | Clinical Summary ---
Author Organization Unknown Care Team Providers Care Lumber Straightened Name Role Phone DAVID PALACIO, ELAINE Unavailable Unavailable DEBRA RN, IZABELLA Unavailable Unavailable AMRIT PT, JAMES Unavailable Unavail able ENRIQUE CNC WOOD LATHE OPERATOR, MARINO Unavailable Unavailable Payers Payer Name Policy Type Policy Number Effective Date Expira tion Date MEDICARE.NGS.PDGM [id number] Problems Condition Name Condition Details Condition Category Status Onset Date Resolution Date Last Treatment Date Treating Clinician Comments ENCNTR FOR SURGICAL AFTCR FOLLOWING SURGERY ON THE CIRC SYS Active 06-10 00:00: 00 TYPE 2 DIABETES W DIABETIC PERIPHERAL ANGIOPATH W/O GANGRENE Active 06-10 00:00: 00 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, LEFT [...] 07-13 00:00: 00 10-23 23:59 :00 No [id number] SHORTNESS OF BREATH, WHEEZING Per instruc tions EVERY 4 HOURS Per instructio ns EVERY 4 HOURS (route: inhalation ) Med Classific ation: Respirato ry Therapy Agents albuterol sulfate HFA 90 mcg/actuati on aerosol inhaler 07-13 00:00: 00 07-19 00:00 :00 No [id number] Per instruc tions EVERY 4 HOURS NEEDED Per instructio ns EVERY 4 HOURS NEEDED (route: inhalation ) Med Classific ation: Respirato ry Therapy Agents BD Insulin Syringe Ultra-Fine 1 mL 31 gauge x 5/16 18 00:00: 00 07-19 00:00 :00 No [id number] Per instruc tions Per instructio ns (route: miscellane ous) Med Classific ation: Medical Supplies and Durable Medical Equipment (DME) terazosin 5 mg capsule 4-18 00:00: 00 10-23 23:59 :00 No [id number] BPH 1 capsule DAILY 1 capsule DAILY (route: oral) Med Classific ation: Cardiovas cular Therapy Agents Lantus U-100 Insulin 100 unit/mL subcutaneou s solution 4-13 00:00: 00 07-19 00:00 :00 No [id number] Per instruc tions Per instructio ns (route: subcutaneo us) Med Classific ation: Endocrine fenofibrate 54 mg tablet 4-11 00:00: 00 10-23 23:59 :00 No [id number] BPH 2 tablet DAILY 2 tablet DAILY (route: oral) Med Classific ation: Cardiovas cular Therapy Agents atorvastati n 10 mg tablet 2-18 00:00: 00 10-23 23:59 :00 No [id number] HLD 1 tablet BEDTIME 1 tablet BEDTIME (route: oral) Med Classific ation: Cardiovas cular Therapy Agents nifedipine ER 30 mg tablet,exte nded release 2-18 00:00: 00 10-23 23:59 :00 No [id number] HTN 1 tablet DAILY 1 tablet DAILY (route: oral) Med Classific ation: Cardiovas cular Therapy Agents Lantus U-100 Insulin 100 unit/mL subcutaneou s solution 2-15 00:00: 00 10-23 23:59 :00 No [id number] DM 18 unit 2 TIMES DAILY 18 unit 2 TIMES DAILY (route: subcutaneo us) Med Classific ation: Endocrine terazosin 5 mg capsule 2-10 00:00: 00 07-19 00:00 :00 No [id number] Per instruc tions Per instructio ns (route: oral) Med Classific ation: Cardiovas cular Therapy Agents BD Insulin Syringe Ultra-Fine 1 mL 31 gauge x 5/16 2-09 00:00: 00 07-19 00:00 :00 No [id number] Per instruc tions Per instructio ns (route: miscellane ous) Med Classific ation: Medical Supplies and Durable Medical Equipment (DME) finasteride 5 mg tablet 04-20 00:00: 00 10-23 23:59 :00 No [id number] BPH 1 tablet DAILY 1 tablet DAILY (route: oral) Med Classific ation: Genitouri nary Therapy Aspirin Low Dose 81 mg tablet,nora yed release 07-19 00:00: 00 10-23 23:59 :00 No [id number] HEART DISEASE 1 tablet DAILY 1 tablet DAILY (route: oral) Med Classific ation: Hematolog ical Agents cholecalcif mary (vitamin D3) 10 mcg (400 unit) capsule 07-19 00:00: 00 10-23 23:59 :00 No [id number] SUPPLEMENT 1 capsule DAILY 1 capsule DAILY (route: oral) Med Classific ation: Electroly te Balance-N utritiona l Products Eliquis 5 mg tablet 07-19 00:00: 00 10-23 23:59 :00 No [id number] AFIB 1 tablet 2 TIMES DAILY 1 tablet 2 TIMES DAILY (route: oral) Med Classific ation: Hematolog ical Agents ferrous fumarate 324 mg (106 mg iron) tablet 07-19 00:00: 00 10-23 23:59 :00 No [id number] SUPPLEMENT 1 tablet DAILY 1 tablet DAILY (route: oral) Med Classific ation: Electroly te Balance-N utritiona l Products insulin lispro (U-100) 100 unit/mL subcutaneou s pen 07-19 00:00: 00 10-23 23:59 :00 No [id number] DM Per instruc tions BEFORE MEALS AND BEDTIME Per instructio ns BEFORE MEALS AND BEDTIME (route: subcutaneo us) Med Classific ation: Endocrine metoprolol tartrate 50 mg tablet 07-19 00:00: 00 07-25 23:59 :00 No [id number] HTN 1 tablet DAILY 1 tablet DAILY (route: oral) Med Classific ation: Cardiovas cular Therapy Agents One-A-Day Trubiotics 2 billion cell capsule 4-28 00:00: 00 10-23 23:59 :00 No [id number] SUPPLEMENT 1 capsule DAILY 1 capsule DAILY (route: oral) Med Classific ation: Gastroint estinal Therapy Agents metoprolol tartrate 25 mg tablet 04 00:00: 00 10-23 23:59 :00 No [id number] HTN 12.5 mg 2 TIMES DAILY 12.5 mg 2 TIMES DAILY (route: oral) Med Classific ation: Cardiovas cular Therapy Agents amoxicillin 875 mg-potassiu m clavulanate 125 mg tablet 10-23 00:00: 00 04-27 23:59 :00 No [id number] ABT 1 tablet 2 TIMES DAILY 1 tablet 2 TIMES DAILY (route: oral) Med Classific ation: Anti-Infe ctive Agents terazosin 5 mg capsule 7-11 00:00: 00 10-28 00:00 :00 No [id number] Per instruc tions Per instructio ns (route: oral) Med Classific ation: Cardiovas cular Therapy Agents Advair Diskus 250 mcg-50 mcg/dose powder for inhalation 10-28 00:00: 00 04-27 23:59 :00 No [id number] COPD 1 inhalat ion 3 TIMES DAILY 1 inhalation 3 TIMES DAILY (route: inhalation ) Med Classific ation: Respirato ry Therapy Agents Eliquis 5 mg tablet 10-28 00:00: 00 04-27 23:59 :00 No [id number] ANTICOAGULA TION 1 tablet 2 TIMES DAILY 1 tablet 2 TIMES DAILY (route: oral) Med Classific ation: Hematolog ical Agents fenofibrate 54 mg tablet 10-28 00:00: 00 04-27 23:59 :00 No [id number] PROSTATE 1 tablet DAILY 1 tablet DAILY (route: oral) Med Classific ation: Cardiovas cular Therapy Agents insulin glargine (U-100) 100 unit/mL subcutaneou s solution 10-28 00:00: 00 04-27 23:59 :00 No [id number] DM 18 unit 2 TIMES DAILY 18 unit 2 TIMES DAILY (route: subcutaneo us) Med Classific ation: Endocrine iron 325 mg (65 mg iron) tablet 10-28 00:00: 00 04-27 23:59 :00 No [id number] SUPPLEMENT 1 tablet DAILY 1 tablet DAILY (route: oral) Med Classific ation: Electroly te Balance-N utritiona l Products Lipitor 10 mg tablet 10-28 00:00: 00 04-27 23:59 :00 No [id number] CAD 1 tablet DAILY 1 tablet DAILY (route: oral) Med Classific ation: Cardiovas cular Therapy Agents losartan 50 mg tablet 10-28 00:00: 00 04-27 23:59 :00 No [id number] HTN 1 tablet DAILY 1 tablet DAILY (route: oral) Med Classific ation: Cardiovas cular Therapy Agents terazosin 5 mg capsule 10-28 00:00: 00 04-27 23:59 :00 No [id number] SLEEP 1 capsule DAILY 1 capsule DAILY (route: oral) Med Classific ation: Cardiovas cular Therapy Agents Toprol XL 25 mg tablet,exte nded release 10-28 00:00: 00 04-27 23:59 :00 No [id number] AFIB 0.5 tablet DAILY 0.5 tablet DAILY (route: oral) Med Classific ation: Cardiovas cular Therapy Agents Vitamin D3 25 mcg (1,000 unit) capsule 10-28 00:00: 00 04-27 23:59 :00 No [id number] SUPPLEMENT 1 capsule DAILY 1 capsule DAILY (route: oral) Med Classific ation: Electroly te Balance-N utritiona l Products Advair Diskus 250 mcg-50 mcg/dose powder for inhalation 04-30 00:00: 00 06-02 23:59 :00 No [id number] SOB 1 inhalat ion 2 TIMES DAILY 1 inhalation 2 TIMES DAILY (route: inhalation ) Med Classific ation: Respirato ry Therapy Agents atorvastati n 40 mg tablet 2- 00:00: 00 06-02 23:59 :00 No [id number] CHOLESTEROL 1 tablet BEDTIME 1 tablet BEDTIME (route: oral) Med Classific ation: Cardiovas cular Therapy Agents D3 DOTS 50 mcg (2,000 unit) tablet 2- 00:00: 00 06-02 23:59 :00 No [id number] SUPPLEMENT 1 tablet DAILY 1 tablet DAILY (route: oral) Med Classific ation: Electroly te Balance-N utritiona l Products Eliquis 2.5 mg tablet 2- 00:00: 00 06-02 23:59 :00 No [id number] ATRIAL FIB 1 tablet 2 TIMES DAILY 1 tablet 2 TIMES DAILY (route: oral) Med Classific ation: Hematolog ical Agents fenofibrate 54 mg tablet 2 00:00: 00 06-02 23:59 :00 No [id number] CHOLESTEROL 2 tablet DAILY 2 tablet DAILY (route: oral) Med Classific ation: Cardiovas cular Therapy Agents ferrous sulfate 325 mg (65 mg iron) tablet 04-30 00:00: 00 06-02 23:59 :00 No [id number] ANEMIA 1 tablet DAILY 1 tablet DAILY (route: oral) Med Classific ation: Electroly te Balance-N utritiona l Products finasteride 5 mg tablet 2 00:00: 00 06-02 23:59 :00 No [id number] BPH 1 tablet DAILY 1 tablet DAILY (route: oral) Med Classific ation: Genitouri nary Therapy insulin glargine (U-100) 100 unit/mL (3 mL) subcutane s pen 2- 00:00: 00 06-02 23:59 :00 No [id number] DM 18 unit 2 TIMES DAILY 18 unit 2 TIMES DAILY (route: subcutaneo us) Med Classific ation: Endocrine losartan 50 mg tablet 2- 00:00: 00 06-02 23:59 :00 No [id number] HTN 50 mg DAILY 50 mg DAILY (route: oral) Med Classific ation: Cardiovas cular Therapy Agents metoprolol succinate ER 25 mg tablet,exte nded release 24 hr 2-07 00:00: 00 06-02 23:59 :00 No [id number] RATE CONTROL,BP .5 tablet 2 TIMES DAILY .5 tablet 2 TIMES DAILY (route: oral) Med Classific ation: Cardiovas cular Therapy Agents Novolin N FlexPen 100 unit/mL (3 mL) subcutane s insulin pen 2- 00:00: 00 06-02 23:59 :00 No [id number] DM 16 unit DAILY 16 unit DAILY [facility] Med Classific ation: Endocrine Novolog FlexPen U-100 Insulin aspart 100 unit/mL (3 mL) subcutaneou s 2- 00:00: 00 06-02 23:59 :00 No [id number] DM 9 unit DAILY 9 unit DAILY (route: subcutaneo us) Med Classific ation: Endocrine Novolog FlexPen U-100 Insulin aspart 100 unit/mL (3 mL) subcutaneou s 2-07 00:00: 00 06-02 23:59 :00 No [id number] DM 11 unit DAILY 11 unit DAILY (route: subcutaneo us) Med Classific ation: Endocrine terazosin 5 mg capsule 2- 00:00: 00 06-02 23:59 :00 No [id number] BPH 1 capsule BEDTIME 1 capsule BEDTIME (route: oral) Med Classific ation: Cardiovas cular Therapy Agents carboxymeth ylcellulose sodium 0.5 % eye drops 2-07 00:00: 00 06-02 23:59 :00 No [id number] DRY EYES 1 drops 2 TIMES DAILY 1 drops 2 TIMES DAILY (route: ophthalmic (eye)) Med Classific ation: Ophthalmi c Agents ICaps AREDS 4,296 mcg-226 mg-90 mg capsule 2-07 00:00: 00 06-02 23:59 :00 No [id number] EYE HEALTH 1 capsule DAILY 1 capsule DAILY (route: oral) Med Classific ation: Electroly te Balance-N utritiona l Products Jardiance 25 mg tablet 2-07 00:00: 00 05-12 23:59 :00 No [id number] DM 1 tablet DAILY 1 tablet DAILY (route: oral) Med Classific ation: Endocrine Lasix 40 mg tablet 2-16 00:00: 00 06-02 23:59 :00 No [id number] CHF 1 tablet DAILY 1 tablet DAILY (route: oral) Med Classific ation: Cardiovas cular Therapy Agents Jardiance 10 mg tablet 05-12 00:00: 00 06-02 23:59 :00 No [id number] DIABETES 0.5 tablet DAILY 0.5 tablet DAILY (route: oral) Med Classific ation: Endocrine fenofibrate 54 mg tablet 05-19 00:00: 00 06-10 00:00 :00 No [id number] Per instruc tions Per instructio ns (route: oral) Med Classific ation: Cardiovas cular Therapy Agents acetaminoph en 500 mg tablet 06-10 00:00: 00 Yes [id number] PAIN 2 tablet EVERY 8 HOURS 2 tablet EVERY 8 HOURS (route: oral) Med Classific ation: Analgesic , Anti-infl ammatory or Antipyret ic Afrin (oxymetazol ine) 0.05 % nasal spray 06-10 00:00: 00 Yes [id number] NOSEBLEEDS 2 spray EVERY 4 HOURS 2 spray EVERY 4 HOURS (route: nasal) Med Classific ation: Respirato ry Therapy Agents albuterol sulfate HFA 90 mcg/actuati on aerosol inhaler 06-10 00:00: 00 Yes [id number] SHORTNESS OF BREATH 2 puff EVERY 6 HOURS 2 puff EVERY 6 HOURS (route: inhalation ) Med Classific ation: Respirato ry Therapy Agents amiodarone 200 mg tablet 06-10 00:00: 00 Yes [id number] IRREGULAR HEART BEAT 1 tablet DAILY 1 tablet DAILY (route: oral) Med Classific ation: Cardiovas cular Therapy Agents aspirin 81 mg tablet,nora yed release 06-10 00:00: 00 Yes [id number] HIGH LIPIDS 1 tablet DAILY 1 tablet DAILY (route: oral) Med Classific ation: Hematolog ical Agents betamethaso ne dipropionat e 0.05 % topical cream 06-10 00:00: 00 Yes [id number] PSORIASIS FLARE 3 inch 2 TIMES DAILY 3 inch 2 TIMES DAILY (route: topical) Med Classific ation: Dermatolo gical Eliquis 2.5 mg tablet 06-10 00:00: 00 Yes [id number] IRREGULAR HEART BEAT 1 tablet EVERY 12 HOURS 1 tablet EVERY 12 HOURS (route: oral) Med Classific ation: Hematolog ical Agents fenofibrate 54 mg tablet 06-10 00:00: 00 Yes [id number] HIGH LIPIDS 2 tablet EVERY AM 2 tablet EVERY AM (route: oral) Med Classific ation: Cardiovas cular Therapy Agents ferrous sulfate 325 mg (65 mg iron) tablet 06-10 00:00: 00 Yes [id number] ANEMIA 1 tablet EVERY 48 HOURS 1 tablet EVERY 48 HOURS (route: oral) Med Classific ation: Electroly te Balance-N utritiona l Products finasteride 5 mg tablet 06-10 00:00: 00 Yes [id number] ENLARGED PROSTATE 1 tablet BEDTIME 1 tablet BEDTIME (route: oral) Med Classific ation: Genitouri nary Therapy Jardiance 25 mg tablet 06-10 00:00: 00 Yes [id number] DIABETES 1 tablet DAILY 1 tablet DAILY (route: oral) Med Classific ation: Endocrine Lantus Solostar U-100 Insulin 100 unit/mL (3 mL) subcutaneou s pen 06-10 00:00: 00 Yes [id number] DIABETES 8 unit 2 TIMES DAILY 8 unit 2 TIMES DAILY (route: subcutaneo us) Med Classific ation: Endocrine metoprolol succinate ER 25 mg tablet,exte nded release 24 hr 06-10 00:00: 00 Yes [id number] IRREGULAR HEART BEAT 0.5 tablet 2 TIMES DAILY 0.5 tablet 2 TIMES DAILY (route: oral) Med Classific ation: Cardiovas cular Therapy Agents Miralax 17 gram/dose oral powder 06-10 00:00: 00 Yes [id number] CONSTIPATIO N 17 gram DAILY 17 gram DAILY (route: oral) Med Classific ation: Gastroint estinal Therapy Agents Novolog FlexPen U-100 Insulin aspart 100 unit/mL (3 mL) [facility] 06-10 00:00: 00 Yes [id number] DIABETES 2 unit BEFORE DINNER 2 unit BEFORE DINNER (route: [facility]) Med Classific ation: Endocrine Novolog FlexPen U-100 Insulin aspart 100 unit/mL (3 mL) [facility] 06-10 00:00: 00 Yes [id number] DIABETES 4 unit BEFORE LUNCH 4 unit BEFORE LUNCH (route: [facility]) Med Classific ation: Endocrine Novolog FlexPen U-100 Insulin aspart 100 unit/mL (3 mL) [facility] 06-10 00:00: 00 Yes [id number] DIABETES 4 unit BEFORE BREAKFAST 4 unit BEFORE BREAKFAST (route: [facility]) Med Classific ation: Endocrine oxycodone 5 mg tablet 06-10 00:00: 00 Yes [id number] SEVERE PAIN 1 tablet EVERY 4 HOURS 1 tablet EVERY 4 HOURS (route: oral) Med Classific ation: Analgesic , Anti-infl ammatory or Antipyret ic terazosin 5 mg capsule 06-10 00:00: 00 Yes [id number] ENLARGED PROSTATE 1 capsule BEDTIME 1 capsule BEDTIME (route: oral) Med Classific ation: Cardiovas cular Therapy Agents Wixela Inhub 250 mcg-50 mcg/dose powder for inhalation 06-10 00:00: 00 Yes [id number] COPD 1 inhalat ion DAILY 1 inhalation DAILY (route: inhalation ) Med Classific ation: Respirato ry Therapy Agents amoxicillin 875 mg-potassiu m clavulanate 125 mg tablet 06-16 00:00: 00 06-26 23:59 :00 No [id number] INFE 1 tablet 2 TIMES DAILY 1 [...] Observation Time Observation Value Commen ts Temperature 2024-07-28 16:14:00.000 97.8 [degF] Temperature 2024-07-26 08:04:00.000 97.9 [degF] Temperature 2024-07-23 13:17:00.000 98.1 [degF] Temperature 2024-07-23 08:30:00.000 98.2 [degF] Temperature 2024-07-21 08:17:00.000 98 [degF] Temperature 2024-07-19 08:33:00.000 97.9 [degF] Temperature 2024-07-16 17:00:00.000 98.7 [degF] Temperature 2024-07-16 [...] kg/m2 Height 2024-06-10 13:06:00.000 66 [in_us] Pulse 2024-07-28 16:14:00.000 88 /min Pulse 2024-07-26 08:04:00.000 68 /min Pulse 2024-07-23 13:17:00.000 84 /min Pulse 2024-07-23 08:30:00.000 78 /min Pulse 2024-07-21 08:17:00.000 67 /min Pulse 2024-07-19 08:33:00.000 76 /min Pulse 2024-07-16 17:00:00.000 75 /min Pulse 2024-07-16 [...] 2024-06-10 13:06:00.000 73 /min O2 Saturation (%) 2024-07-28 16:14:00.000 98 % O2 Saturation (%) 2024-07-26 08:04:00.000 98 % O2 Saturation (%) 2024-07-23 13:17:00.000 97 % O2 Saturation (%) 2024-07-23 08:30:00.000 97 % O2 Saturation (%) 2024-07-21 08:17:00.000 97 % O2 Saturation (%) 2024-07-19 08:33:00.000 98 % O2 Saturation (%) 2024-07-16 17:00:00.000 98 % [...] Saturation (%) 2024-06-10 13:06:00.000 96 % Respirations 2024-07-28 16:14:00.000 18 /min Respirations 2024-07-26 08:04:00.000 18 /min Respirations 2024-07-23 13:17:00.000 16 /min Respirations 2024-07-23 08:30:00.000 18 /min Respirations 2024-07-21 08:17:00.000 18 /min Respirations 2024-07-19 08:33:00.000 18 /min Respirations 2024-07-16 17:00:00.000 18 /min Respirations 2024-07-16 [...] 2024-06-10 13:06:00.000 172 [lb_av] Systolic Blood Pressure 2024-07-28 16:14:00.000 118 mm [Hg] Systolic Blood Pressure 2024-07-26 08:04:00.000 118 mm [Hg] Systolic Blood Pressure 2024-07-23 13:17:00.000 120 mm [Hg] Systolic Blood Pressure 2024-07-23 08:30:00.000 118 mm [Hg] Systolic Blood Pressure 2024-07-21 08:17:00.000 120 mm [Hg] Systolic Blood Pressure 2024-07-19 08:33:00.000 120 mm [Hg] Systolic Blood Pressure 2024-07-16 17:00:00.000 126 mm [...] 13:06:00.000 108 mm [Hg] Diastolic Blood Pressure 2024-07-28 16:14:00.000 50 mm [Hg] Diastolic Blood Pressure 2024-07-26 08:04:00.000 50 mm [Hg] Diastolic Blood Pressure 2024-07-23 13:17:00.000 64 mm [Hg] Diastolic Blood Pressure 2024-07-23 08:30:00.000 50 mm [Hg] Diastolic Blood Pressure 2024-07-21 08:17:00.000 62 mm [Hg] Diastolic Blood Pressure 2024-07-19 08:33:00.000 50 mm [Hg] Diastolic Blood Pressure 2024-07-16 17:00:00.000 [...] CONSULTING PHYSICIANS RN TO OBSERVE AND ASSESS, MARKET RESEARCH COORDINATOR/TABLET MAKING MACHINE OPERATOR HELPER TO OBSERVE FOR RISK FOR FALLS AND INSTRUCT IN FALL PREVENTION, HOME SAFETY, MEDICATION MANAGEMENT, INFECTION PREVENTION, AND NUTRITION MANAGEMENT. RN/MARKET RESEARCH COORDINATOR/TABLET MAKING MACHINE OPERATOR HELPER NURSE MAY PERFORM O2 SATURATION LEVEL ON ADMISSION AND PRN FOR RN TO ASSESS/MARKET RESEARCH COORDINATOR TO OBSERVE PATIENT, WITH NOTIFICATION TO THE PHYSICIAN IF SATURATION IS 90% IN THE ABSENCE OF MORE SPECIFIC PARAMETERS FROM THE PHYSICIAN. AGENCY MAY PERFORM A RESUMPTION OF CARE VISIT FOLLOWING ANY HOSPITAL ADMISSION. RN/MARKET RESEARCH COORDINATOR/TABLET MAKING MACHINE OPERATOR HELPER TO MONITOR CO-MORBID CONDITIONS LISTED ON THE PLAN OF CARE AND ANY NEW CONDITIONS THAT PRESENT THEMSELVES DURING THIS EPISODE TO IDENTIFY CHANGES AND INTERVENE TO MINIMIZE COMPLICATIONS. [code = RN TO OBSERVE, ASSESS, EVALUATE, AND DEVELOP AN INDIVIDUALIZED PLAN OF CARE. AGENCY MAY ACCEPT ORDERS FROM CONSULTING PHYSICIANS RN TO OBSERVE AND ASSESS, MARKET RESEARCH COORDINATOR/TABLET MAKING MACHINE OPERATOR HELPER TO OBSERVE FOR RISK FOR FALLS AND INSTRUCT IN FALL PREVENTION, HOME SAFETY, MEDICATION MANAGEMENT, INFECTION PREVENTION, AND NUTRITION MANAGEMENT. RN/MARKET RESEARCH COORDINATOR/TABLET MAKING MACHINE OPERATOR HELPER NURSE MAY PERFORM O2 SATURATION LEVEL ON ADMISSION AND PRN FOR RN TO ASSESS/MARKET RESEARCH COORDINATOR TO OBSERVE PATIENT, WITH NOTIFICATION TO THE PHYSICIAN IF SATURATION IS 90% IN THE ABSENCE OF MORE SPECIFIC PARAMETERS FROM THE PHYSICIAN. AGENCY MAY PERFORM A RESUMPTION OF CARE VISIT FOLLOWING ANY HOSPITAL ADMISSION. RN/MARKET RESEARCH COORDINATOR/TABLET MAKING MACHINE OPERATOR HELPER TO MONITOR CO-MORBID CONDITIONS LISTED ON THE PLAN OF CARE AND ANY NEW CONDITIONS THAT PRESENT THEMSELVES DURING THIS EPISODE TO IDENTIFY CHANGES AND INTERVENE TO MINIMIZE COMPLICATIONS.] Future Scheduled Test MEDICATION MANAGEMENT; RN/MARKET RESEARCH COORDINATOR/TABLET MAKING MACHINE OPERATOR HELPER TO REVIEW MEDICATIONS FOR INTERACTIONS, EFFECTIVENESS OF DRUG THERAPY, AND SIGNS/SYMPTOMS OF ADVERSE REACTIONS. MAY INSTRUCT AND REINFORCE MEDICATION TEACHING RELATED TO THE USE OF MEDICATIONS, DOSAGE, FREQUENCY, PURPOSE, SIDE EFFECTS, AND TO REPORT COMPLICATIONS. [code = MEDICATION MANAGEMENT; RN/MARKET RESEARCH COORDINATOR/TABLET MAKING MACHINE OPERATOR HELPER TO REVIEW MEDICATIONS FOR INTERACTIONS, EFFECTIVENESS OF DRUG THERAPY, AND SIGNS/SYMPTOMS OF ADVERSE REACTIONS. MAY INSTRUCT AND REINFORCE MEDICATION TEACHING RELATED TO THE USE OF MEDICATIONS, DOSAGE, FREQUENCY, PURPOSE, SIDE EFFECTS, AND TO REPORT COMPLICATIONS.] Future Scheduled Test RISK FOR H OSPITALIZATION; RN TO ASSESS/TEACH, TABLET MAKING MACHINE OPERATOR HELPER/MARKET RESEARCH COORDINATOR TO OBSERVE/TEACH PATIENT/CAREGIVER ON RISK FOR HOSPITALIZATION/EMERGENCY ROOM VISITS, TEACH SIGNS AND SYMPTOMS THAT PUT PATIENT AT RISK, WHEN TO NOTIFY NURSE/PHYSICIAN OF COMPLICATIONS/DECLINE, AND WHEN TO CALL 911. [code = RISK FOR HOSPITALIZATION; RN TO ASSESS/TEACH, TABLET MAKING MACHINE OPERATOR HELPER/MARKET RESEARCH COORDINATOR TO OBSERVE/TEACH PATIENT/CAREGIVER ON RISK FOR HOSPITALIZATION/EMERGENCY ROOM VISITS, TEACH SIGNS AND SYMPTOMS THAT PUT PATIENT AT RISK, WHEN TO NOTIFY NURSE/PHYSICIAN OF COMPLICATIONS/DECLINE, AND WHEN TO CALL 911.] Future Scheduled Test CARDIOVASC ULAR SYSTEM; RN TO ASSESS/TEACH, MARKET RESEARCH COORDINATOR/TABLET MAKING MACHINE OPERATOR HELPER TO OBSERVE/TEACH RELATED TO ALTERED CARDIOVASCULAR STATUS TO MINIMIZE COMPLICATIONS AND REDUCE HOSPITALIZATION. [code = CARDIOVASCULAR SYSTEM; RN TO ASSESS/TEACH, MARKET RESEARCH COORDINATOR/TABLET MAKING MACHINE OPERATOR HELPER TO OBSERVE/TEACH RELATED TO ALTERED CARDIOVASCULAR STATUS TO MINIMIZE COMPLICATIONS AND REDUCE HOSPITALIZATION.] Future Scheduled Test HEART FAIL URE; RN TO ASSESS/TEACH, MARKET RESEARCH COORDINATOR/TABLET MAKING MACHINE OPERATOR HELPER TO OBSERVE/TEACH CARDIOPULMONARY SYSTEM TO IDENTIFY SIGNS [...] [code = HEART FAILURE; RN TO ASSESS/TEACH, MARKET RESEARCH COORDINATOR/TABLET MAKING MACHINE OPERATOR HELPER TO OBSERVE/TEACH CARDIOPULMONARY SYSTEM TO IDENTIFY SIGNS [...] ARRHYTHMIA MANAGEMENT; RN TO ASSESS AND TEACH, MARKET RESEARCH COORDINATOR/TABLET MAKING MACHINE OPERATOR HELPER TO OBSERVE AND TEACH WARNING SIGNS AND SYMPTOMS TO AVOID HOSPITALIZATION. [code = ARRHYTHMIA MANAGEMENT; RN TO ASSESS AND TEACH, MARKET RESEARCH COORDINATOR/TABLET MAKING MACHINE OPERATOR HELPER TO OBSERVE AND TEACH WARNING SIGNS AND SYMPTOMS TO AVOID HOSPITALIZATION.] Future Scheduled Test PAIN MANAG EMENT; RN TO ASSESS AND TEACH, TABLET MAKING MACHINE OPERATOR HELPER/MARKET RESEARCH COORDINATOR TO OBSERVE AND TEACH AND PROVIDE EDUCATION ON PAIN MANAGEMENT TECHNIQUES. [code = PAIN MANAGEMENT; RN TO ASSESS AND TEACH, TABLET MAKING MACHINE OPERATOR HELPER/MARKET RESEARCH COORDINATOR TO OBSERVE AND TEACH AND PROVIDE EDUCATION ON PAIN MANAGEMENT TECHNIQUES.] Future Scheduled Test SKIN INTEG RITY RN TO ASSESS AND TEACH, MARKET RESEARCH COORDINATOR/TABLET MAKING MACHINE OPERATOR HELPER TO OBSERVE AND TEACH INTEGUMENTARY STATUS TO IDENTIFY CHANGES AND INTERVENE TO MINIMIZE COMPLICATIONS. PROVIDE SKILLED TEACHING OF GENERAL WOUND AND SKIN CARE AND PREVENTION RELATED TO ACTUAL ALTERED SKIN INTEGRITY [code = SKIN INTEGRITY RN TO ASSESS AND TEACH, MARKET RESEARCH COORDINATOR/TABLET MAKING MACHINE OPERATOR HELPER TO OBSERVE AND TEACH INTEGUMENTARY STATUS TO IDENTIFY CHANGES AND INTERVENE TO MINIMIZE COMPLICATIONS. PROVIDE SKILLED TEACHING OF GENERAL WOUND AND SKIN CARE AND PREVENTION RELATED TO ACTUAL ALTERED SKIN INTEGRITY ] Future Scheduled Test DIABETES M ANAGEMENT; RN TO ASSESS AND TEACH, TABLET MAKING MACHINE OPERATOR HELPER/MARKET RESEARCH COORDINATOR TO OBSERVE AND TEACH INSTRUCTIONS OF DIABETIC CARE TO INCLUDE: DIET CCHO, HEART HEALTHY SKIN CARE, SIGNS AND SYMPTOMS OF HYPO/HYPERGLYCEMIA, PROPER ADMINISTRATION OF DIABETIC MEDICATION. RN/TABLET MAKING MACHINE OPERATOR HELPER/MARKET RESEARCH COORDINATOR TO INSTRUCT ON DIABETIC FOOT CARE AND MONITOR FOR SKIN LESIONS ON LOWER EXTREMITIES. BLOOD GLUCOSE TESTING TID FREQ. RN TO ASSESS AND TEACH, TABLET MAKING MACHINE OPERATOR HELPER/MARKET RESEARCH COORDINATOR TO OBSERVE AND TEACH PATIENT/CAREGIVER ABILITY TO PERFORM AND RECORD BLOOD GLUCOSE TESTING ORDERED AND TO REPORT ABNORMAL FINDINGS TO PHYSICIAN. RN/TABLET MAKING MACHINE OPERATOR HELPER/MARKET RESEARCH COORDINATOR MAY PERFORM BLOOD GLUCOSE TEST NEEDED. RN/TABLET MAKING MACHINE OPERATOR HELPER/MARKET RESEARCH COORDINATOR TO REPORT TO PHYSICIAN BLOOD GLUCOSE READINGS GREATER THAN 200 OR LESS THAN 80 RN/TABLET MAKING MACHINE OPERATOR HELPER/MARKET RESEARCH COORDINATOR TO INSTRUCT PATIENT ON IMPORTANCE OF HGBA1C MONITORING, KIDNEY FUNCTION TEST, EYE AND FOOT EXAMS. [code = DIABETES MANAGEMENT; RN TO ASSESS AND TEACH, TABLET MAKING MACHINE OPERATOR HELPER/MARKET RESEARCH COORDINATOR TO OBSERVE AND TEACH INSTRUCTIONS OF DIABETIC CARE TO INCLUDE: DIET CCHO, HEART HEALTHY SKIN CARE, SIGNS AND SYMPTOMS OF HYPO/HYPERGLYCEMIA, PROPER ADMINISTRATION OF DIABETIC MEDICATION. RN/TABLET MAKING MACHINE OPERATOR HELPER/MARKET RESEARCH COORDINATOR TO INSTRUCT ON DIABETIC FOOT CARE AND MONITOR FOR SKIN LESIONS ON LOWER EXTREMITIES. BLOOD GLUCOSE TESTING TID FREQ. RN TO ASSESS AND TEACH, TABLET MAKING MACHINE OPERATOR HELPER/MARKET RESEARCH COORDINATOR TO OBSERVE AND TEACH PATIENT/CAREGIVER ABILITY TO PERFORM AND RECORD BLOOD GLUCOSE TESTING ORDERED AND TO REPORT ABNORMAL FINDINGS TO PHYSICIAN. RN/TABLET MAKING MACHINE OPERATOR HELPER/MARKET RESEARCH COORDINATOR MAY PERFORM BLOOD GLUCOSE TEST NEEDED. RN/TABLET MAKING MACHINE OPERATOR HELPER/MARKET RESEARCH COORDINATOR TO REPORT TO PHYSICIAN BLOOD GLUCOSE READINGS GREATER THAN 200 OR LESS THAN 80 RN/TABLET MAKING MACHINE OPERATOR HELPER/MARKET RESEARCH COORDINATOR TO INSTRUCT PATIENT ON IMPORTANCE OF HGBA1C MONITORING, KIDNEY FUNCTION TEST, EYE AND FOOT EXAMS.] Future Scheduled Test FALL REDUC TION MANAGEMENT; RN TO ASSESS AND OBSERVE, MARKET RESEARCH COORDINATOR/TABLET MAKING MACHINE OPERATOR HELPER TO OBSERVE FALL RISK FACTORS AND EDUCATE PATIENT/CAREGIVER ON STRATEGIES TO MINIMIZE THE RISK OF FALLING. [code = FALL REDUCTION MANAGEMENT; RN TO ASSESS AND OBSERVE, MARKET RESEARCH COORDINATOR/TABLET MAKING MACHINE OPERATOR HELPER TO OBSERVE FALL RISK FACTORS AND EDUCATE PATIENT/CAREGIVER ON STRATEGIES TO MINIMIZE THE RISK OF FALLING.] Future Scheduled Test RN/MARKET RESEARCH COORDINATOR/TABLET MAKING MACHINE OPERATOR HELPER TO PERFORM/TEACH WOUND CARE TO LEFT MEDIAL CALF SURGICAL AREA: CLEANSE WITH NORMAL SALINE, APPLY ABD PAD APPLY ROLLED GAUZE SECURE WITH TAPE COVER WITH TUBI ROUNDING MACHINE TENDER, CHANGE DRESSING EVERY 2 DAYS AND PRN FOR SOILAGE OR DISPLACEMENT PATIENT TO PROVIDE CARE IN NURSING ABSENCE RN/MARKET RESEARCH COORDINATOR/TABLET MAKING MACHINE OPERATOR HELPER TO PERFORM/TEACH WOUND CARE TO LEFT LATERAL CALF SURGICAL AREA: OBSERVE FOR S/SX INFECTION OR DEHISCENCE REPORT TO SURGEON IMMEDIATELY PATIENT TO PROVIDE CARE IN NURSING ABSENCE [code = RN/MARKET RESEARCH COORDINATOR/TABLET MAKING MACHINE OPERATOR HELPER TO PERFORM/TEACH WOUND CARE TO LEFT MEDIAL CALF SURGICAL AREA: CLEANSE WITH NORMAL SALINE, APPLY ABD PAD APPLY ROLLED GAUZE SECURE WITH TAPE COVER WITH TUBI ROUNDING MACHINE TENDER, CHANGE DRESSING EVERY 2 DAYS AND PRN FOR SOILAGE OR DISPLACEMENT PATIENT TO PROVIDE CARE IN NURSING ABSENCE RN/MARKET RESEARCH COORDINATOR/TABLET MAKING MACHINE OPERATOR HELPER TO PERFORM/TEACH WOUND CARE TO LEFT LATERAL [...] End Date/Time Encounter Type Admission Type Attending [facility] Care Department Encounter ID Discharge Date Discharge Status Discharge Condition Discharge Reason Percent Goals Met 2024-06-10 00:00:00 2024-08-08 00:00:00 Outpatient IZABELLA CROUCH [facility] [id number] 44.83
--- OUTSIDE RECORDS SUMMARY | 2024-07-29 15:50 | XMS_ITS | Encounter Summary ---
Author Organization [facility] Address [address] [place] [address] Care Team Providers Care Steeler Name Role Phone Donte Powell MD Primary Care Provider [phone] Encounter Details Date Type Department Care Team (Late st Contact Info) Description 05/29/2024 Lab Requisition [facility] - Main Lab [address] [place] [address] Ross Saul MD [address] [place] [address] Unspecified atrial fibrillation (CMS/HCC V24, [...] documented as of this encounter Care Teams Steeler Relationship Specialty Start Date End Date Donte Powell MD [address] [place] [address] Dr Rl MA PCP - General Internal Medicine 09/21/18 documented as of this encounter
--- OUTSIDE RECORDS SUMMARY | 2024-07-29 15:50 | XMS_ITS | Clinical Summary ---
Author Organization Unknown Care Team Providers Care Wrong Address Clerk Name Role Phone DAVID PALACIO, ELAINE Unavailable Unavailable DEBRA RN, IZABELLA Unavailable Unavailable AMRIT PT, JAMES Unavailable Unavail able ENRIQUE SENIOR QUALITY MANAGER, MARINO Unavailable Unavailable Payers Payer Name Policy Type Policy Number Effective Date Expira tion Date MEDICARE.NGS.PDGM [id number] Problems Condition Name Condition Details Condition Category Status Onset Date Resolution Date Last Treatment Date Treating Clinician Comments ENCNTR FOR SURGICAL AFTCR FOLLOWING SURGERY ON THE CIRC SYS Active 06-10 00:00: 00 TYPE 2 DIABETES W DIABETIC PERIPHERAL ANGIOPATH W/O GANGRENE Active 06-10 00:00: 00 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, LEFT [...] 07-13 00:00: 00 10-23 23:59 :00 No [id number] SHORTNESS OF BREATH, WHEEZING Per instruc tions EVERY 4 HOURS Per instructio ns EVERY 4 HOURS (route: inhalation ) Med Classific ation: Respirato ry Therapy Agents albuterol sulfate HFA 90 mcg/actuati on aerosol inhaler 07-13 00:00: 00 07-19 00:00 :00 No [id number] Per instruc tions EVERY 4 HOURS NEEDED Per instructio ns EVERY 4 HOURS NEEDED (route: inhalation ) Med Classific ation: Respirato ry Therapy Agents BD Insulin Syringe Ultra-Fine 1 mL 31 gauge x 5/16 18 00:00: 00 07-19 00:00 :00 No [id number] Per instruc tions Per instructio ns (route: miscellane ous) Med Classific ation: Medical Supplies and Durable Medical Equipment (DME) terazosin 5 mg capsule 4-18 00:00: 00 10-23 23:59 :00 No [id number] BPH 1 capsule DAILY 1 capsule DAILY (route: oral) Med Classific ation: Cardiovas cular Therapy Agents Lantus U-100 Insulin 100 unit/mL subcutaneou s solution 4-13 00:00: 00 07-19 00:00 :00 No [id number] Per instruc tions Per instructio ns (route: subcutaneo us) Med Classific ation: Endocrine fenofibrate 54 mg tablet 4-11 00:00: 00 10-23 23:59 :00 No [id number] BPH 2 tablet DAILY 2 tablet DAILY (route: oral) Med Classific ation: Cardiovas cular Therapy Agents atorvastati n 10 mg tablet 2-18 00:00: 00 10-23 23:59 :00 No [id number] HLD 1 tablet BEDTIME 1 tablet BEDTIME (route: oral) Med Classific ation: Cardiovas cular Therapy Agents nifedipine ER 30 mg tablet,exte nded release 2-18 00:00: 00 10-23 23:59 :00 No [id number] HTN 1 tablet DAILY 1 tablet DAILY (route: oral) Med Classific ation: Cardiovas cular Therapy Agents Lantus U-100 Insulin 100 unit/mL subcutaneou s solution 2-15 00:00: 00 10-23 23:59 :00 No [id number] DM 18 unit 2 TIMES DAILY 18 unit 2 TIMES DAILY (route: subcutaneo us) Med Classific ation: Endocrine terazosin 5 mg capsule 2-10 00:00: 00 07-19 00:00 :00 No [id number] Per instruc tions Per instructio ns (route: oral) Med Classific ation: Cardiovas cular Therapy Agents BD Insulin Syringe Ultra-Fine 1 mL 31 gauge x 5/16 2-09 00:00: 00 07-19 00:00 :00 No [id number] Per instruc tions Per instructio ns (route: miscellane ous) Med Classific ation: Medical Supplies and Durable Medical Equipment (DME) finasteride 5 mg tablet 04-20 00:00: 00 10-23 23:59 :00 No [id number] BPH 1 tablet DAILY 1 tablet DAILY (route: oral) Med Classific ation: Genitouri nary Therapy Aspirin Low Dose 81 mg tablet,nora yed release 07-19 00:00: 00 10-23 23:59 :00 No [id number] HEART DISEASE 1 tablet DAILY 1 tablet DAILY (route: oral) Med Classific ation: Hematolog ical Agents cholecalcif mary (vitamin D3) 10 mcg (400 unit) capsule 07-19 00:00: 00 10-23 23:59 :00 No [id number] SUPPLEMENT 1 capsule DAILY 1 capsule DAILY (route: oral) Med Classific ation: Electroly te Balance-N utritiona l Products Eliquis 5 mg tablet 07-19 00:00: 00 10-23 23:59 :00 No [id number] AFIB 1 tablet 2 TIMES DAILY 1 tablet 2 TIMES DAILY (route: oral) Med Classific ation: Hematolog ical Agents ferrous fumarate 324 mg (106 mg iron) tablet 07-19 00:00: 00 10-23 23:59 :00 No [id number] SUPPLEMENT 1 tablet DAILY 1 tablet DAILY (route: oral) Med Classific ation: Electroly te Balance-N utritiona l Products insulin lispro (U-100) 100 unit/mL subcutaneou s pen 07-19 00:00: 00 10-23 23:59 :00 No [id number] DM Per instruc tions BEFORE MEALS AND BEDTIME Per instructio ns BEFORE MEALS AND BEDTIME (route: subcutaneo us) Med Classific ation: Endocrine metoprolol tartrate 50 mg tablet 07-19 00:00: 00 07-25 23:59 :00 No [id number] HTN 1 tablet DAILY 1 tablet DAILY (route: oral) Med Classific ation: Cardiovas cular Therapy Agents One-A-Day Trubiotics 2 billion cell capsule 4-28 00:00: 00 10-23 23:59 :00 No [id number] SUPPLEMENT 1 capsule DAILY 1 capsule DAILY (route: oral) Med Classific ation: Gastroint estinal Therapy Agents metoprolol tartrate 25 mg tablet 04 00:00: 00 10-23 23:59 :00 No [id number] HTN 12.5 mg 2 TIMES DAILY 12.5 mg 2 TIMES DAILY (route: oral) Med Classific ation: Cardiovas cular Therapy Agents amoxicillin 875 mg-potassiu m clavulanate 125 mg tablet 10-23 00:00: 00 04-27 23:59 :00 No [id number] ABT 1 tablet 2 TIMES DAILY 1 tablet 2 TIMES DAILY (route: oral) Med Classific ation: Anti-Infe ctive Agents terazosin 5 mg capsule 7-11 00:00: 00 10-28 00:00 :00 No [id number] Per instruc tions Per instructio ns (route: oral) Med Classific ation: Cardiovas cular Therapy Agents Advair Diskus 250 mcg-50 mcg/dose powder for inhalation 10-28 00:00: 00 04-27 23:59 :00 No [id number] COPD 1 inhalat ion 3 TIMES DAILY 1 inhalation 3 TIMES DAILY (route: inhalation ) Med Classific ation: Respirato ry Therapy Agents Eliquis 5 mg tablet 10-28 00:00: 00 04-27 23:59 :00 No [id number] ANTICOAGULA TION 1 tablet 2 TIMES DAILY 1 tablet 2 TIMES DAILY (route: oral) Med Classific ation: Hematolog ical Agents fenofibrate 54 mg tablet 10-28 00:00: 00 04-27 23:59 :00 No [id number] PROSTATE 1 tablet DAILY 1 tablet DAILY (route: oral) Med Classific ation: Cardiovas cular Therapy Agents insulin glargine (U-100) 100 unit/mL subcutaneou s solution 10-28 00:00: 00 04-27 23:59 :00 No [id number] DM 18 unit 2 TIMES DAILY 18 unit 2 TIMES DAILY (route: subcutaneo us) Med Classific ation: Endocrine iron 325 mg (65 mg iron) tablet 10-28 00:00: 00 04-27 23:59 :00 No [id number] SUPPLEMENT 1 tablet DAILY 1 tablet DAILY (route: oral) Med Classific ation: Electroly te Balance-N utritiona l Products Lipitor 10 mg tablet 10-28 00:00: 00 04-27 23:59 :00 No [id number] CAD 1 tablet DAILY 1 tablet DAILY (route: oral) Med Classific ation: Cardiovas cular Therapy Agents losartan 50 mg tablet 10-28 00:00: 00 04-27 23:59 :00 No [id number] HTN 1 tablet DAILY 1 tablet DAILY (route: oral) Med Classific ation: Cardiovas cular Therapy Agents terazosin 5 mg capsule 10-28 00:00: 00 04-27 23:59 :00 No [id number] SLEEP 1 capsule DAILY 1 capsule DAILY (route: oral) Med Classific ation: Cardiovas cular Therapy Agents Toprol XL 25 mg tablet,exte nded release 10-28 00:00: 00 04-27 23:59 :00 No [id number] AFIB 0.5 tablet DAILY 0.5 tablet DAILY (route: oral) Med Classific ation: Cardiovas cular Therapy Agents Vitamin D3 25 mcg (1,000 unit) capsule 10-28 00:00: 00 04-27 23:59 :00 No [id number] SUPPLEMENT 1 capsule DAILY 1 capsule DAILY (route: oral) Med Classific ation: Electroly te Balance-N utritiona l Products Advair Diskus 250 mcg-50 mcg/dose powder for inhalation 04-30 00:00: 00 06-02 23:59 :00 No [id number] SOB 1 inhalat ion 2 TIMES DAILY 1 inhalation 2 TIMES DAILY (route: inhalation ) Med Classific ation: Respirato ry Therapy Agents atorvastati n 40 mg tablet 2- 00:00: 00 06-02 23:59 :00 No [id number] CHOLESTEROL 1 tablet BEDTIME 1 tablet BEDTIME (route: oral) Med Classific ation: Cardiovas cular Therapy Agents D3 DOTS 50 mcg (2,000 unit) tablet 2- 00:00: 00 06-02 23:59 :00 No [id number] SUPPLEMENT 1 tablet DAILY 1 tablet DAILY (route: oral) Med Classific ation: Electroly te Balance-N utritiona l Products Eliquis 2.5 mg tablet 2- 00:00: 00 06-02 23:59 :00 No [id number] ATRIAL FIB 1 tablet 2 TIMES DAILY 1 tablet 2 TIMES DAILY (route: oral) Med Classific ation: Hematolog ical Agents fenofibrate 54 mg tablet 2 00:00: 00 06-02 23:59 :00 No [id number] CHOLESTEROL 2 tablet DAILY 2 tablet DAILY (route: oral) Med Classific ation: Cardiovas cular Therapy Agents ferrous sulfate 325 mg (65 mg iron) tablet 04-30 00:00: 00 06-02 23:59 :00 No [id number] ANEMIA 1 tablet DAILY 1 tablet DAILY (route: oral) Med Classific ation: Electroly te Balance-N utritiona l Products finasteride 5 mg tablet 2 00:00: 00 06-02 23:59 :00 No [id number] BPH 1 tablet DAILY 1 tablet DAILY (route: oral) Med Classific ation: Genitouri nary Therapy insulin glargine (U-100) 100 unit/mL (3 mL) subcutane s pen 2- 00:00: 00 06-02 23:59 :00 No [id number] DM 18 unit 2 TIMES DAILY 18 unit 2 TIMES DAILY (route: subcutaneo us) Med Classific ation: Endocrine losartan 50 mg tablet 2- 00:00: 00 06-02 23:59 :00 No [id number] HTN 50 mg DAILY 50 mg DAILY (route: oral) Med Classific ation: Cardiovas cular Therapy Agents metoprolol succinate ER 25 mg tablet,exte nded release 24 hr 2-07 00:00: 00 06-02 23:59 :00 No [id number] RATE CONTROL,BP .5 tablet 2 TIMES DAILY .5 tablet 2 TIMES DAILY (route: oral) Med Classific ation: Cardiovas cular Therapy Agents Novolin N FlexPen 100 unit/mL (3 mL) subcutane s insulin pen 2- 00:00: 00 06-02 23:59 :00 No [id number] DM 16 unit DAILY 16 unit DAILY ([facility] Med Classific ation: Endocrine Novolog FlexPen U-100 Insulin aspart 100 unit/mL (3 mL) subcutaneou s 2- 00:00: 00 06-02 23:59 :00 No [id number] DM 9 unit DAILY 9 unit DAILY (route: subcutaneo us) Med Classific ation: Endocrine Novolog FlexPen U-100 Insulin aspart 100 unit/mL (3 mL) subcutaneou s 2-07 00:00: 00 06-02 23:59 :00 No [id number] DM 11 unit DAILY 11 unit DAILY (route: subcutaneo us) Med Classific ation: Endocrine terazosin 5 mg capsule 2- 00:00: 00 06-02 23:59 :00 No [id number] BPH 1 capsule BEDTIME 1 capsule BEDTIME (route: oral) Med Classific ation: Cardiovas cular Therapy Agents carboxymeth ylcellulose sodium 0.5 % eye drops 2-07 00:00: 00 06-02 23:59 :00 No [id number] DRY EYES 1 drops 2 TIMES DAILY 1 drops 2 TIMES DAILY (route: ophthalmic (eye)) Med Classific ation: Ophthalmi c Agents ICaps AREDS 4,296 mcg-226 mg-90 mg capsule 2-07 00:00: 00 06-02 23:59 :00 No [id number] EYE HEALTH 1 capsule DAILY 1 capsule DAILY (route: oral) Med Classific ation: Electroly te Balance-N utritiona l Products Jardiance 25 mg tablet 2-07 00:00: 00 05-12 23:59 :00 No [id number] DM 1 tablet DAILY 1 tablet DAILY (route: oral) Med Classific ation: Endocrine Lasix 40 mg tablet 2-16 00:00: 00 06-02 23:59 :00 No [id number] CHF 1 tablet DAILY 1 tablet DAILY (route: oral) Med Classific ation: Cardiovas cular Therapy Agents Jardiance 10 mg tablet 05-12 00:00: 00 06-02 23:59 :00 No [id number] DIABETES 0.5 tablet DAILY 0.5 tablet DAILY (route: oral) Med Classific ation: Endocrine fenofibrate 54 mg tablet 05-19 00:00: 00 06-10 00:00 :00 No [id number] Per instruc tions Per instructio ns (route: oral) Med Classific ation: Cardiovas cular Therapy Agents acetaminoph en 500 mg tablet 06-10 00:00: 00 Yes [id number] PAIN 2 tablet EVERY 8 HOURS 2 tablet EVERY 8 HOURS (route: oral) Med Classific ation: Analgesic , Anti-infl ammatory or Antipyret ic Afrin (oxymetazol ine) 0.05 % nasal spray 06-10 00:00: 00 Yes [id number] NOSEBLEEDS 2 spray EVERY 4 HOURS 2 spray EVERY 4 HOURS (route: nasal) Med Classific ation: Respirato ry Therapy Agents albuterol sulfate HFA 90 mcg/actuati on aerosol inhaler 06-10 00:00: 00 Yes [id number] SHORTNESS OF BREATH 2 puff EVERY 6 HOURS 2 puff EVERY 6 HOURS (route: inhalation ) Med Classific ation: Respirato ry Therapy Agents amiodarone 200 mg tablet 06-10 00:00: 00 Yes [id number] IRREGULAR HEART BEAT 1 tablet DAILY 1 tablet DAILY (route: oral) Med Classific ation: Cardiovas cular Therapy Agents aspirin 81 mg tablet,nora yed release 06-10 00:00: 00 Yes [id number] HIGH LIPIDS 1 tablet DAILY 1 tablet DAILY (route: oral) Med Classific ation: Hematolog ical Agents betamethaso ne dipropionat e 0.05 % topical cream 06-10 00:00: 00 Yes [id number] PSORIASIS FLARE 3 inch 2 TIMES DAILY 3 inch 2 TIMES DAILY (route: topical) Med Classific ation: Dermatolo gical Eliquis 2.5 mg tablet 06-10 00:00: 00 Yes [id number] IRREGULAR HEART BEAT 1 tablet EVERY 12 HOURS 1 tablet EVERY 12 HOURS (route: oral) Med Classific ation: Hematolog ical Agents fenofibrate 54 mg tablet 06-10 00:00: 00 Yes [id number] HIGH LIPIDS 2 tablet EVERY AM 2 tablet EVERY AM (route: oral) Med Classific ation: Cardiovas cular Therapy Agents ferrous sulfate 325 mg (65 mg iron) tablet 06-10 00:00: 00 Yes [id number] ANEMIA 1 tablet EVERY 48 HOURS 1 tablet EVERY 48 HOURS (route: oral) Med Classific ation: Electroly te Balance-N utritiona l Products finasteride 5 mg tablet 06-10 00:00: 00 Yes [id number] ENLARGED PROSTATE 1 tablet BEDTIME 1 tablet BEDTIME (route: oral) Med Classific ation: Genitouri nary Therapy Jardiance 25 mg tablet 06-10 00:00: 00 Yes [id number] DIABETES 1 tablet DAILY 1 tablet DAILY (route: oral) Med Classific ation: Endocrine Lantus Solostar U-100 Insulin 100 unit/mL (3 mL) subcutaneou s pen 06-10 00:00: 00 Yes [id number] DIABETES 8 unit 2 TIMES DAILY 8 unit 2 TIMES DAILY (route: subcutaneo us) Med Classific ation: Endocrine metoprolol succinate ER 25 mg tablet,exte nded release 24 hr 06-10 00:00: 00 Yes [id number] IRREGULAR HEART BEAT 0.5 tablet 2 TIMES DAILY 0.5 tablet 2 TIMES DAILY (route: oral) Med Classific ation: Cardiovas cular Therapy Agents Miralax 17 gram/dose oral powder 06-10 00:00: 00 Yes [id number] CONSTIPATIO N 17 gram DAILY 17 gram DAILY (route: oral) Med Classific ation: Gastroint estinal Therapy Agents Novolog FlexPen U-100 Insulin aspart 100 unit/mL (3 mL) [facility] 06-10 00:00: 00 Yes [id number] DIABETES 2 unit BEFORE DINNER 2 unit BEFORE DINNER (route: [facility]) Med Classific ation: Endocrine Novolog FlexPen U-100 Insulin aspart 100 unit/mL (3 mL) [facility] 06-10 00:00: 00 Yes [id number] DIABETES 4 unit BEFORE LUNCH 4 unit BEFORE LUNCH (route: [facility]) Med Classific ation: Endocrine Novolog FlexPen U-100 Insulin aspart 100 unit/mL (3 mL) [facility] 06-10 00:00: 00 Yes [id number] DIABETES 4 unit BEFORE BREAKFAST 4 unit BEFORE BREAKFAST (route: [facility]) Med Classific ation: Endocrine oxycodone 5 mg tablet 06-10 00:00: 00 Yes [id number] SEVERE PAIN 1 tablet EVERY 4 HOURS 1 tablet EVERY 4 HOURS (route: oral) Med Classific ation: Analgesic , Anti-infl ammatory or Antipyret ic terazosin 5 mg capsule 06-10 00:00: 00 Yes [id number] ENLARGED PROSTATE 1 capsule BEDTIME 1 capsule BEDTIME (route: oral) Med Classific ation: Cardiovas cular Therapy Agents Wixela Inhub 250 mcg-50 mcg/dose powder for inhalation 06-10 00:00: 00 Yes [id number] COPD 1 inhalat ion DAILY 1 inhalation DAILY (route: inhalation ) Med Classific ation: Respirato ry Therapy Agents amoxicillin 875 mg-potassiu m clavulanate 125 mg tablet 06-16 00:00: 00 06-26 23:59 :00 No [id number] INFE 1 tablet 2 TIMES DAILY 1 [...] CONSULTING PHYSICIANS RN TO OBSERVE AND ASSESS, DRY PAN OPERATOR/WASTE MANAGEMENT ENGINEER TO OBSERVE FOR RISK FOR FALLS AND INSTRUCT IN FALL PREVENTION, HOME SAFETY, MEDICATION MANAGEMENT, INFECTION PREVENTION, AND NUTRITION MANAGEMENT. RN/DRY PAN OPERATOR/WASTE MANAGEMENT ENGINEER NURSE MAY PERFORM O2 SATURATION LEVEL ON ADMISSION AND PRN FOR RN TO ASSESS/DRY PAN OPERATOR TO OBSERVE PATIENT, WITH NOTIFICATION TO THE PHYSICIAN IF SATURATION IS 90% IN THE ABSENCE OF MORE SPECIFIC PARAMETERS FROM THE PHYSICIAN. AGENCY MAY PERFORM A RESUMPTION OF CARE VISIT FOLLOWING ANY HOSPITAL ADMISSION. RN/DRY PAN OPERATOR/WASTE MANAGEMENT ENGINEER TO MONITOR CO-MORBID CONDITIONS LISTED ON THE PLAN OF CARE AND ANY NEW CONDITIONS THAT PRESENT THEMSELVES DURING THIS EPISODE TO IDENTIFY CHANGES AND INTERVENE TO MINIMIZE COMPLICATIONS. [code = RN TO OBSERVE, ASSESS, EVALUATE, AND DEVELOP AN INDIVIDUALIZED PLAN OF CARE. AGENCY MAY ACCEPT ORDERS FROM CONSULTING PHYSICIANS RN TO OBSERVE AND ASSESS, DRY PAN OPERATOR/WASTE MANAGEMENT ENGINEER TO OBSERVE FOR RISK FOR FALLS AND INSTRUCT IN FALL PREVENTION, HOME SAFETY, MEDICATION MANAGEMENT, INFECTION PREVENTION, AND NUTRITION MANAGEMENT. RN/DRY PAN OPERATOR/WASTE MANAGEMENT ENGINEER NURSE MAY PERFORM O2 SATURATION LEVEL ON ADMISSION AND PRN FOR RN TO ASSESS/DRY PAN OPERATOR TO OBSERVE PATIENT, WITH NOTIFICATION TO THE PHYSICIAN IF SATURATION IS 90% IN THE ABSENCE OF MORE SPECIFIC PARAMETERS FROM THE PHYSICIAN. AGENCY MAY PERFORM A RESUMPTION OF CARE VISIT FOLLOWING ANY HOSPITAL ADMISSION. RN/DRY PAN OPERATOR/WASTE MANAGEMENT ENGINEER TO MONITOR CO-MORBID CONDITIONS LISTED ON THE PLAN OF CARE AND ANY NEW CONDITIONS THAT PRESENT THEMSELVES DURING THIS EPISODE TO IDENTIFY CHANGES AND INTERVENE TO MINIMIZE COMPLICATIONS.] Future Scheduled Test MEDICATION MANAGEMENT; RN/DRY PAN OPERATOR/WASTE MANAGEMENT ENGINEER TO REVIEW MEDICATIONS FOR INTERACTIONS, EFFECTIVENESS OF DRUG THERAPY, AND SIGNS/SYMPTOMS OF ADVERSE REACTIONS. MAY INSTRUCT AND REINFORCE MEDICATION TEACHING RELATED TO THE USE OF MEDICATIONS, DOSAGE, FREQUENCY, PURPOSE, SIDE EFFECTS, AND TO REPORT COMPLICATIONS. [code = MEDICATION MANAGEMENT; RN/DRY PAN OPERATOR/WASTE MANAGEMENT ENGINEER TO REVIEW MEDICATIONS FOR INTERACTIONS, EFFECTIVENESS OF DRUG THERAPY, AND SIGNS/SYMPTOMS OF ADVERSE REACTIONS. MAY INSTRUCT AND REINFORCE MEDICATION TEACHING RELATED TO THE USE OF MEDICATIONS, DOSAGE, FREQUENCY, PURPOSE, SIDE EFFECTS, AND TO REPORT COMPLICATIONS.] Future Scheduled Test RISK FOR H OSPITALIZATION; RN TO ASSESS/TEACH, WASTE MANAGEMENT ENGINEER/DRY PAN OPERATOR TO OBSERVE/TEACH PATIENT/CAREGIVER ON RISK FOR HOSPITALIZATION/EMERGENCY ROOM VISITS, TEACH SIGNS AND SYMPTOMS THAT PUT PATIENT AT RISK, WHEN TO NOTIFY NURSE/PHYSICIAN OF COMPLICATIONS/DECLINE, AND WHEN TO CALL 911. [code = RISK FOR HOSPITALIZATION; RN TO ASSESS/TEACH, WASTE MANAGEMENT ENGINEER/DRY PAN OPERATOR TO OBSERVE/TEACH PATIENT/CAREGIVER ON RISK FOR HOSPITALIZATION/EMERGENCY ROOM VISITS, TEACH SIGNS AND SYMPTOMS THAT PUT PATIENT AT RISK, WHEN TO NOTIFY NURSE/PHYSICIAN OF COMPLICATIONS/DECLINE, AND WHEN TO CALL 911.] Future Scheduled Test CARDIOVASC ULAR SYSTEM; RN TO ASSESS/TEACH, DRY PAN OPERATOR/WASTE MANAGEMENT ENGINEER TO OBSERVE/TEACH RELATED TO ALTERED CARDIOVASCULAR STATUS TO MINIMIZE COMPLICATIONS AND REDUCE HOSPITALIZATION. [code = CARDIOVASCULAR SYSTEM; RN TO ASSESS/TEACH, DRY PAN OPERATOR/WASTE MANAGEMENT ENGINEER TO OBSERVE/TEACH RELATED TO ALTERED CARDIOVASCULAR STATUS TO MINIMIZE COMPLICATIONS AND REDUCE HOSPITALIZATION.] Future Scheduled Test HEART FAIL URE; RN TO ASSESS/TEACH, DRY PAN OPERATOR/WASTE MANAGEMENT ENGINEER TO OBSERVE/TEACH CARDIOPULMONARY SYSTEM TO IDENTIFY SIGNS [...] [code = HEART FAILURE; RN TO ASSESS/TEACH, DRY PAN OPERATOR/WASTE MANAGEMENT ENGINEER TO OBSERVE/TEACH CARDIOPULMONARY SYSTEM TO IDENTIFY SIGNS [...] ARRHYTHMIA MANAGEMENT; RN TO ASSESS AND TEACH, DRY PAN OPERATOR/WASTE MANAGEMENT ENGINEER TO OBSERVE AND TEACH WARNING SIGNS AND SYMPTOMS TO AVOID HOSPITALIZATION. [code = ARRHYTHMIA MANAGEMENT; RN TO ASSESS AND TEACH, DRY PAN OPERATOR/WASTE MANAGEMENT ENGINEER TO OBSERVE AND TEACH WARNING SIGNS AND SYMPTOMS TO AVOID HOSPITALIZATION.] Future Scheduled Test PAIN MANAG EMENT; RN TO ASSESS AND TEACH, WASTE MANAGEMENT ENGINEER/DRY PAN OPERATOR TO OBSERVE AND TEACH AND PROVIDE EDUCATION ON PAIN MANAGEMENT TECHNIQUES. [code = PAIN MANAGEMENT; RN TO ASSESS AND TEACH, WASTE MANAGEMENT ENGINEER/DRY PAN OPERATOR TO OBSERVE AND TEACH AND PROVIDE EDUCATION ON PAIN MANAGEMENT TECHNIQUES.] Future Scheduled Test SKIN INTEG RITY RN TO ASSESS AND TEACH, DRY PAN OPERATOR/WASTE MANAGEMENT ENGINEER TO OBSERVE AND TEACH INTEGUMENTARY STATUS TO IDENTIFY CHANGES AND INTERVENE TO MINIMIZE COMPLICATIONS. PROVIDE SKILLED TEACHING OF GENERAL WOUND AND SKIN CARE AND PREVENTION RELATED TO ACTUAL ALTERED SKIN INTEGRITY [code = SKIN INTEGRITY RN TO ASSESS AND TEACH, DRY PAN OPERATOR/WASTE MANAGEMENT ENGINEER TO OBSERVE AND TEACH INTEGUMENTARY STATUS TO IDENTIFY CHANGES AND INTERVENE TO MINIMIZE COMPLICATIONS. PROVIDE SKILLED TEACHING OF GENERAL WOUND AND SKIN CARE AND PREVENTION RELATED TO ACTUAL ALTERED SKIN INTEGRITY ] Future Scheduled Test DIABETES M ANAGEMENT; RN TO ASSESS AND TEACH, WASTE MANAGEMENT ENGINEER/DRY PAN OPERATOR TO OBSERVE AND TEACH INSTRUCTIONS OF DIABETIC CARE TO INCLUDE: DIET CCHO, HEART HEALTHY SKIN CARE, SIGNS AND SYMPTOMS OF HYPO/HYPERGLYCEMIA, PROPER ADMINISTRATION OF DIABETIC MEDICATION. RN/WASTE MANAGEMENT ENGINEER/DRY PAN OPERATOR TO INSTRUCT ON DIABETIC FOOT CARE AND MONITOR FOR SKIN LESIONS ON LOWER EXTREMITIES. BLOOD GLUCOSE TESTING TID FREQ. RN TO ASSESS AND TEACH, WASTE MANAGEMENT ENGINEER/DRY PAN OPERATOR TO OBSERVE AND TEACH PATIENT/CAREGIVER ABILITY TO PERFORM AND RECORD BLOOD GLUCOSE TESTING ORDERED AND TO REPORT ABNORMAL FINDINGS TO PHYSICIAN. RN/WASTE MANAGEMENT ENGINEER/DRY PAN OPERATOR MAY PERFORM BLOOD GLUCOSE TEST NEEDED. RN/WASTE MANAGEMENT ENGINEER/DRY PAN OPERATOR TO REPORT TO PHYSICIAN BLOOD GLUCOSE READINGS GREATER THAN 200 OR LESS THAN 80 RN/WASTE MANAGEMENT ENGINEER/DRY PAN OPERATOR TO INSTRUCT PATIENT ON IMPORTANCE OF HGBA1C MONITORING, KIDNEY FUNCTION TEST, EYE AND FOOT EXAMS. [code = DIABETES MANAGEMENT; RN TO ASSESS AND TEACH, WASTE MANAGEMENT ENGINEER/DRY PAN OPERATOR TO OBSERVE AND TEACH INSTRUCTIONS OF DIABETIC CARE TO INCLUDE: DIET CCHO, HEART HEALTHY SKIN CARE, SIGNS AND SYMPTOMS OF HYPO/HYPERGLYCEMIA, PROPER ADMINISTRATION OF DIABETIC MEDICATION. RN/WASTE MANAGEMENT ENGINEER/DRY PAN OPERATOR TO INSTRUCT ON DIABETIC FOOT CARE AND MONITOR FOR SKIN LESIONS ON LOWER EXTREMITIES. BLOOD GLUCOSE TESTING TID FREQ. RN TO ASSESS AND TEACH, WASTE MANAGEMENT ENGINEER/DRY PAN OPERATOR TO OBSERVE AND TEACH PATIENT/CAREGIVER ABILITY TO PERFORM AND RECORD BLOOD GLUCOSE TESTING ORDERED AND TO REPORT ABNORMAL FINDINGS TO PHYSICIAN. RN/WASTE MANAGEMENT ENGINEER/DRY PAN OPERATOR MAY PERFORM BLOOD GLUCOSE TEST NEEDED. RN/WASTE MANAGEMENT ENGINEER/DRY PAN OPERATOR TO REPORT TO PHYSICIAN BLOOD GLUCOSE READINGS GREATER THAN 200 OR LESS THAN 80 RN/WASTE MANAGEMENT ENGINEER/DRY PAN OPERATOR TO INSTRUCT PATIENT ON IMPORTANCE OF HGBA1C MONITORING, KIDNEY FUNCTION TEST, EYE AND FOOT EXAMS.] Future Scheduled Test FALL REDUC TION MANAGEMENT; RN TO ASSESS AND OBSERVE, DRY PAN OPERATOR/WASTE MANAGEMENT ENGINEER TO OBSERVE FALL RISK FACTORS AND EDUCATE PATIENT/CAREGIVER ON STRATEGIES TO MINIMIZE THE RISK OF FALLING. [code = FALL REDUCTION MANAGEMENT; RN TO ASSESS AND OBSERVE, DRY PAN OPERATOR/WASTE MANAGEMENT ENGINEER TO OBSERVE FALL RISK FACTORS AND EDUCATE PATIENT/CAREGIVER ON STRATEGIES TO MINIMIZE THE RISK OF FALLING.] Future Scheduled Test RN/DRY PAN OPERATOR/WASTE MANAGEMENT ENGINEER TO PERFORM/TEACH WOUND CARE TO LEFT MEDIAL CALF SURGICAL AREA: CLEANSE WITH NORMAL SALINE, APPLY ABD PAD APPLY ROLLED GAUZE SECURE WITH TAPE COVER WITH TUBI HUMAN RELATIONS PROFESSOR, CHANGE DRESSING EVERY 2 DAYS AND PRN FOR SOILAGE OR DISPLACEMENT PATIENT TO PROVIDE CARE IN NURSING ABSENCE RN/DRY PAN OPERATOR/WASTE MANAGEMENT ENGINEER TO PERFORM/TEACH WOUND CARE TO LEFT LATERAL CALF SURGICAL AREA: OBSERVE FOR S/SX INFECTION OR DEHISCENCE REPORT TO SURGEON IMMEDIATELY PATIENT TO PROVIDE CARE IN NURSING ABSENCE [code = RN/DRY PAN OPERATOR/WASTE MANAGEMENT ENGINEER TO PERFORM/TEACH WOUND CARE TO LEFT MEDIAL CALF SURGICAL AREA: CLEANSE WITH NORMAL SALINE, APPLY ABD PAD APPLY ROLLED GAUZE SECURE WITH TAPE COVER WITH TUBI HUMAN RELATIONS PROFESSOR, CHANGE DRESSING EVERY 2 DAYS AND PRN FOR SOILAGE OR DISPLACEMENT PATIENT TO PROVIDE CARE IN NURSING ABSENCE RN/DRY PAN OPERATOR/WASTE MANAGEMENT ENGINEER TO PERFORM/TEACH WOUND CARE TO LEFT LATERAL [...] End Date/Time Encounter Type Admission Type Attending [facility] Care Department Encounter ID Discharge Date Discharge Status Discharge Condition Discharge Reason Percent Goals Met 2024-06-10 00:00:00 2024-08-08 00:00:00 Outpatient IZABELLA CROUCH [facility] [id number]
--- OUTSIDE RECORDS SUMMARY | 2024-07-29 15:50 | XMS_ITS | Encounter Summary ---
Author Organization [facility] Address [address] [place] [address] Care Team Providers Care Bellows Tester Name Role Phone Donte Powell MD Primary Care Provider [phone] Encounter Details Date Type Department Care Team (Late st Contact Info) Description 05/31/2024 Lab Requisition [facility] - Main Lab [address] [facility] [place] [address] Ross Saul MD [address] [place] [address] Unspecified atrial fibrillation (CMS/HCC V24, [...] mmol/L LAB CHEMISTRY METHOD 05/31/2024 10:49 AM [facility] Potassium 4.7 3.5 - 5.5 mmol/L LAB CHEMISTRY METHOD 05/31/2024 10:49 AM [facility] Chloride 110 96 - 110 mmol/L LAB CHEMISTRY METHOD 05/31/2024 10:49 AM [facility] CO2 21 21 - 32 mmol/L LAB CHEMISTRY METHOD 05/31/2024 10:49 AM [facility] Anion Gap 10 3 - 11 LAB CHEMISTRY METHOD 05/31/2024 10:49 AM [facility] Glucose 125(H) 70 - 100 mg/dL LAB CHEMISTRY METHOD 05/31/2024 10:49 AM [facility] BUN 27(H) 5 - 25 mg/dL LAB CHEMISTRY METHOD 05/31/2024 10:49 AM [facility] Creatinine 1.45(H) 0.70 - 1.30 mg/dL LAB CHEMISTRY METHOD 05/31/2024 10:49 AM [facility] eGFR 48(L) >=60 mL/min/1. 73m2 LAB CHEMISTRY METHOD 05/31/2024 10:49 AM [facility] Comment:Calculation based on the??Chronic Kidney Disease Epidemiology Collaboration (CKD-EPI) equation refit??without adjustment for race. BUN/Creatinine Ratio 18.6 LAB CHEMISTRY METHOD 05/31/2024 10:49 AM [facility] Calcium 7.7(L) 8.5 - 10.5 mg/dL LAB CHEMISTRY METHOD 05/31/2024 10:49 AM [facility] AST (SGOT) 117(H) 10 - 42 unit/L LAB CHEMISTRY METHOD 05/31/2024 10:49 AM [facility] ALT (SGPT) 66(H) 10 - 60 unit/L LAB CHEMISTRY METHOD 05/31/2024 10:49 AM EDT [facility] Alkaline Phosphatase 122(H) 42 - 121 unit/L LAB CHEMISTRY METHOD 05/31/2024 10:49 AM EDT [facility] Total Protein 5.8(L) 6.0 - 8.0 g/dL LAB CHEMISTRY METHOD 05/31/2024 10:49 AM EDT [facility] Albumin 2.2(L) 3.2 - 5.0 g/dL LAB CHEMISTRY METHOD 05/31/2024 10:49 AM EDT [facility] Total Bilirubin 0.4 0.0 - 1.4 mg/dL LAB CHEMISTRY METHOD 05/31/2024 10:49 AM T [facility] Blood Venous blood specimen / Unknown Venipuncture / Unknown 05/31/2024 5:15 AM EDT 05/31/2024 9:44 AM EDT us Ross Saul MD LAB BLOOD ORDERABLES Final Resu lt [facility] [address] [place] [address], [place] [phone] * (ABNORMAL) Complete blood count (05/31/2024 5:15 AM EDT) WBC 4.0(L) 4.8 - 10.8 K/mcL LAB HEMETOLOGY METHOD 05/31/2024 10:27 AM EDT [facility] RBC 2.60(L) 4.50 - 5.50 M/mcL LAB HEMETOLOGY METHOD 05/31/2024 10:27 AM EDT [facility] Hemoglobin 8.6(L) 13.5 - 17.5 g/dL LAB HEMETOLOGY METHOD 05/31/2024 10:27 AM EDT [facility] Hematocrit 27.4(L) 42.0 - 54.0 % LAB HEMETOLOGY METHOD 05/31/2024 10:27 AM EDT [facility] MCV 105.8(H) 79.0 - 98.0 FL LAB HEMETOLOGY METHOD 05/31/2024 10:27 AM EDT [facility] MCH 33.2(H) 27.0 - 32.0 pcg LAB HEMETOLOGY METHOD 05/31/2024 10:27 AM EDT [facility] MCHC 31.4(L) 32.0 - 37.0 g/dL LAB HEMETOLOGY METHOD 05/31/2024 10:27 AM EDT [facility] RDW 17.7(H) 11.0 - 15.0 % LAB [facility]OLOGY [facility] 199 130 - 400 K/mcL LAB HEMETOLOGY METHOD 05/31/2024 10:27 AM EDT [facility] MPV 11.7(H) 7.0 - 11.0 FL LAB HEMETOLOGY METHOD 05/31/2024 10:27 AM EDT [facility] NRBC 0.0 <1.0 % LAB HEMETOLOGY METHOD 05/31/2024 10:27 AM T [facility] NRBC Absolute 0.00 <0.10 K/mcL LAB HEMETOLOGY METHOD 05/31/2024 10:27 AM EDT [facility] Blood Venous blood specimen / Unknown Venipuncture / Unknown 05/31/2024 5:15 AM EDT 05/31/2024 9:44 AM EDT us Ross Saul MD LAB BLOOD ORDERABLES Final Resu lt [facility] [address] [place] [address], documented in this encounter Visit Diagnoses Diagnosis Unspecified atrial fibrillation ([facility] V24, [facility] V28) Anemia, unspecified Anemia in chronic kidney disease (CODE) documented in this encounter Additional Health Concerns Infection Onset Date Last Indicated Resolved Time Norovirus 05/29/2024 05/29/2024 documented as of this encounter Care Teams Bellows Tester Relationship Specialty Start Date End Date Donte Powell MD [address] [place] [address] Dr Rl [place] PCP - General Internal Medicine 09/21/18 documented as of this encounter
--- OUTSIDE RECORDS SUMMARY | 2024-07-29 15:50 | XMS_ITS | Clinical Summary ---
Author Organization [facility] Address [address] [place] [address] Care Team Providers Care Network Systems Operator Name Role Phone Donte Powell Primary Care Provider [phone] Allergies Active Allergy Reactions Criticality Noted Date Comments Jean Swelling High he is allergic to shellfish [...] 11/15/2019, 03/24, 03/24/2013 Procedures * Due to [facility] law, this organization might not be [...] to Health Maintenance Results * Due to [place] [employer] law, this organization might not be sharing negative HIV tests. * (ABNORMAL) CBC Auto Differential (09/29/2023 1:42 PM EDT) WBC 7.2 3.8 - 10.8 10*3/uL 09/29/2023 2:15 PM EDT [facility] RBC 3.74(L) 4.20 - 5.80 10*6/uL 09/29/2023 2:15 PM EDT [facility] Hemoglobin 11.4(L) 13.2 - 17.1 g/dL 09/29/2023 2:15 PM EDT [facility] Hematocrit 35.5(L) 38.5 - 50.0 % 09/29/2023 2:15 PM EDT [facility] MCV 94.9 80.0 - 100.0 fL 09/29/2023 2:15 PM EDT [facility] MCH 30.5 27.0 - 33.0 pg 09/29/2023 2:15 PM EDT [facility] MCHC 32.1 32.0 - 36.0 g/dL 09/29/2023 2:15 PM EDT [facility] RDW 14.7 11.0 - 15.0 % 09/29/2023 2:15 PM EDT [facility] Platelets 184 140 - 400 10*3/uL 09/29/2023 2:15 PM EDT [facility] MPV 11.3 7.5 - 12.5 fL 09/29/2023 2:15 PM EDT [facility] Neutrophil % 73.2 % 09/29/2023 2:15 PM EDT [facility] Immature Grans % 0.6 0.0 - 0.9 % 09/29/2023 2:15 PM EDT [facility] Lymphocyte % 16.5 % 09/29/2023 2:15 PM EDT [facility] Monocyte % 9.2 % 09/29/2023 2:15 PM EDT [facility] Eosinophil % 0.4 % 09/29/2023 2:15 PM EDT [facility] Basophil % 0.1 % 09/29/2023 2:15 PM EDT [facility] Neutrophil # 5.24 1.50 - 7.80 10*3/uL 09/29/2023 2:15 PM EDT [facility] Immature Grans # 0.04(H) <=0.03 10*3/uL 09/29/2023 2:15 PM EDT [facility] Lymphocyte # 1.20 0.85 - 3.90 10*3/uL 09/29/2023 2:15 PM EDT [facility] Monocyte # 0.70 0.20 - 0.95 10*3/uL 09/29/2023 2:15 PM EDT [facility] Eosinophil # <0.03 0.02 - 0.50 10*3/uL 09/29/2023 2:15 PM EDT [facility] Basophil # <0.03 0.00 - 0.20 10*3/uL 09/29/2023 2:15 PM EDT [facility] nRBC % 0.0 /100 WBCs 09/29/2023 2:15 PM EDT [facility] nRBC # <0.01 <0.01 10*3/uL 09/29/2023 2:15 PM EDT [facility] Total Neutrophil #, Preliminary 5.24 1.50 - 7.80 10*3/uL 09/29/2023 2:15 PM EDT [facility] Blood Structure of peripheral vein / Unknown Venipuncture / Unknown 09/29/2023 1:42 PM EDT 09/29/2023 2:06 PM EDT us George Vaca MD PhD LAB BLOOD ORDERABLES Final Resu lt [facility] [address] [place] [address], [place] * (ABNORMAL) Comprehensive Metabolic Panel (09/29/2023 1:42 PM EDT) NA 137 135 - 145 mmol/L 09/29/2023 2:57 PM EDT [facility] K 4.6 3.5 - 5.3 mmol/L 09/29/2023 2:57 PM EDT [facility] Cl 100 98 - 107 mmol/L 09/29/2023 2:57 PM EDT [facility] CO2 23(L) 24 - 32 mmol/L 09/29/2023 2:57 PM EDT [facility] Anion Gap 14 5 - 15 09/29/2023 2:57 PM EDT [facility] Glucose 173(H) 65 - 99 mg/dL 09/29/2023 2:57 PM EDT [facility] Creatinine 1.94(H) 0.60 - 1.30 mg/dL 09/29/2023 2:57 PM EDT [facility] Calcium 9.4 8.6 - 10.5 mg/dL 09/29/2023 2:57 PM EDT [facility] Total Protein 7.9 6.0 - 8.0 g/dL 09/29/2023 2:57 PM EDT [facility] Albumin 4.1 3.5 - 5.2 g/dL 09/29/2023 2:57 PM EDT [facility] Bilirubin, Total 0.3 0.2 - 1.2 mg/dL 09/29/2023 2:57 PM EDT [facility] Alkaline Phosphatase 63 35 - 129 U/L 09/29/2023 2:57 PM EDT [facility] AST 57(H) 10 - 40 U/L 09/29/2023 2:57 PM EDT [facility] ALT 56(H) 10 - 40 U/L 09/29/2023 2:57 PM EDT [facility] BUN 47(H) 7 - 23 mg/dL 09/29/2023 2:57 PM EDT [facility] eGFR 34(L) >=60 mL/min/1 .73m2 09/29/2023 2:57 PM EDT [facility] Comment:The estimated glomer ular [...] - 4.2 g/dL 09/29/2023 2:57 PM EDT [facility] A/G Ratio 1.1(L) 1.5 - 3.0 09/29/2023 2:57 PM EDT [facility] Blood Structure of peripheral vein / Unknown Venipuncture / Unknown 09/29/2023 1:42 PM EDT 09/29/2023 2:06 PM EDT us George Vaca MD PhD LAB BLOOD ORDERABLES Final Resu lt [facility] [address] [place] [address], * (ABNORMAL) Vitamin D, 25-Hydroxy, Total, Immunoassay (03/19/2017 1:10 PM EST) Calcidiol+ercalc idiol 26(L) 30 - 100 ng/mL 03/20/2017 10:40 AM EST [employer] [facility] Comment: Vitamin D Status ? 25-OH Vitamin D: Deficiency: ?<20 ng/mL Insufficiency: ? 20 - 29 ng/mL Optimal: ? > or = 30 ng/mL For 25-OH Vitamin D testing on patients on D2-supplementation and patients for whom quantitation of D2 and D3 fractions is required, the QuestAssureD(TM) 25-OH VIT D, (D2,D3), LC/MS/MS is recommended: order code 41658 (patients >2yrs). For more information on this test, go to: http://education.[facility]/faq/MPM007 (This link is being provided for informational/educational purposes only.) Blood specimen (specimen) Structure of peripheral vein / Unknown Venipuncture / Unknown 03/19/2017 1:10 PM EST 03/19/2017 1:21 PM EST Narrative [facility] - 03/20/2017 10:40 AM EST [facility] Received Date: Bethany SANTOS LAB BLOOD ORDERABLES Edit ed Result - Final [facility] [address] [facility] [address] [facility], [place] [address], [facility] [facility] [address] [facility] [address], [place] [address], * (ABNORMAL) Hemoglobin A1c (03/19/2017 1:10 PM EST) Pathologist [facility] Hemoglobin A1C 9.0(H) <5.7 % of total Hgb 03/19/2017 7:14 PM EST [employer] [facility] Comment: For someone without known diabetes, a [...] (MG/DL) 212 (calc) 03/19/2017 7:14 PM EST [facility] [facility] eAG (MMOL/L) 11.7 (calc) 03/19/2017 7:14 PM EST [facility] Blood specimen (specimen) Structure of peripheral vein / Unknown Venipuncture / Unknown 03/19/2017 1:10 PM EST 03/19/2017 1:21 PM EST Narrative [facility] - 03/19/2017 7:14 PM EST [facility] Received Date:[id number] Bethany SANTOS LAB BLOOD ORDERABLES Barbara l Result [facility] [address] [facility] [address], [place] [address], [place] [phone] Keniu [facility] [address] [facility] [address], [place] [address], [place] [phone] * (ABNORMAL) Phosphorus (12/20/2013 4:07 AM EDT) Phosphorus Blood 2.0(L) 2.5 - 4.5 mg/dL [facility] 12/20/2013 4:07 AM EDT 12/20/2013 4:29 AM EDT us Camron Strickland MD LAB BLOOD ORDERABLES Final Result Performing Organization Address [facility] Co de Phone Number [facility] [address] [place] [address], [place] * CT Chest W Contrast (05/15/2010 [...] . COMMUNICATION: Per this written report. Result [facility] PROCEDURES Final Result from Last 3 Months or Most Recently Relevant to Health Maintenance Insurance Unit [address] [place] [address] MEDICARE [facility] Advance Directives Documents on File Type Date Recorded Patient Incident Coordinator Expl anation Advance Directive 10/19/2008 12:00 AM christopher ramírez Dec Making (Adv.Dir) Care Teams Network Systems Operator Relationship Specialty Start Date End Date Donte Powell [address] [place] [address] dr Mac Watts, [place] [address] PCP - General 10/10/16
--- OUTSIDE RECORDS SUMMARY | 2024-07-29 15:50 | XMS_ITS ---
Author Organization Dean Parsons III, MD Address [address] [place] [address] Care Team Providers Care Food Truck Caterer Name Role Phone Donte Powell MD Primary Care Provider Unavaila Dean Patterson Unavailable [phone] REASON FOR VISIT Followup Encounters Encounter Location Date Provider Diagnosis Dean Parsons III, MD [address] [place] [address] DR [place] [address] 04/05/2024 Dean Parsons Plan Of Treatment Next Appt Details Provider Name:Dean Parsons, 11/02/2024 02:30:00 PM, [address] [place] [address] [place], [address], Progress Notes * Joel LOGANDOB:[birth year] (83 yo M)Acc No.[id number]:04/05/2024 Progress Notes Patient:?Joel LOGAN Provider:?Dean Parsons MD :1940???Age:83 Y???Sex:Male Srinivasan e:04/05/2024 Address:[address] [place] [address], nit [address] [place], [place] [id number] Pcp:Donte Powell MD Subjective: * Chief Complaints: * ???1. Followup. * Medical History:? Objective: * Vitals:? Assessment: Plan: * Treatment: * Images: * The named appointment provid er may or may not be the originator of this progress note, and it is not deemed complete until electronically signed by the appointment provider. Sign off status: Pending * Provider:?Dean Parsons MD Date:?03/24 Generated for Pj manning/Bran/Ayan on:?07/29/2024 03:49 PM EDT
--- OUTSIDE RECORDS SUMMARY | 2024-07-29 15:50 | XMS_ITS ---
Author Organization [facility] Address [address] [place] [address] Care Team Providers Care Nautical Instrument Mechanic Name Role Phone oDnte Powell Primary Care Provider Active Problems Problem Noted Date Diagnosed Date [...]
--- OUTSIDE RECORDS SUMMARY | 2024-07-29 15:50 | XMS_ITS | Encounter Summary ---
Author Organization [facility] Address [address] [place] [address] Care Team Providers Care Commercial Specialist Name Role Phone Donte Powell MD Primary Care Provider [phone] Encounter Details Date Type Department Care Team (Late st Contact Info) Description 06/10/2024 Lab Requisition [facility] - Main Lab [address] [facility] [place] [address] Ross Saul MD [address] [place] [address] Unspecified atrial fibrillation (CMS/HCC V24, [...] documented as of this encounter Care Teams Commercial Specialist Relationship Specialty Start Date End Date Donte Powell MD [address] [place] [address] Dr Rl [place] PCP - General Internal Medicine 09/21/18 documented as of this encounter
--- OUTSIDE RECORDS SUMMARY | 2024-07-29 15:50 | XMS_ITS | Encounter Summary ---
Author Organization [facility] Address [address] [place] [address] Care Team Providers Care Investment Banking Analyst Name Role Phone Donte Powell MD Primary Care Provider [phone] Encounter Details Date Type Department Care Team (Late st Contact Info) Description 05/29/2024 Lab Requisition [facility] - Main Lab [address] [facility] [place] [address] Ross Saul MD [address] [place] [address] Diarrhea, unspecified Social History Tobacco [...] documented as of this encounter Care Teams Investment Banking Analyst Relationship Specialty Start Date End Date Donte Powell MD [address] [place] [address] Dr Rl [place] PCP - General Internal Medicine 09/21/18 documented as of this encounter
--- OUTSIDE RECORDS SUMMARY | 2024-07-29 15:50 | XMS_ITS | Referral Summary ---
Author Organization [facility] Address [address] [place] [address] Care Team Providers Care Customer Order Clerk Name Role Phone Donte Powell Primary Care Provider [phone] Allergies Active Allergy Reactions Criticality Noted Date Comments Krebs Swelling High he is allergic to shellfish [...] Not on file Procedures * Due to [place] FOODSCROO[employer] law, this organization might not be sharing [...] to Health Maintenance Results * Due to [place] FOODS[employer] law, this organization might not be sharing negative HIV tests. * (ABNORMAL) CBC Auto Differential (09/29/2023 1:42 PM EDT) WBC 7.2 3.8 - 10.8 10*3/uL 09/29/2023 2:15 PM EDT [facility] RBC 3.74(L) 4.20 - 5.80 10*6/uL 09/29/2023 2:15 PM EDT [facility] Hemoglobin 11.4(L) 13.2 - 17.1 g/dL 09/29/2023 2:15 PM EDT [facility] Hematocrit 35.5(L) 38.5 - 50.0 % 09/29/2023 2:15 PM EDT [facility] MCV 94.9 80.0 - 100.0 fL 09/29/2023 2:15 PM EDT [facility] MCH 30.5 27.0 - 33.0 pg 09/29/2023 2:15 PM EDT [facility] MCHC 32.1 32.0 - 36.0 g/dL 09/29/2023 2:15 PM EDT [facility] RDW 14.7 11.0 - 15.0 % 09/29/2023 2:15 PM EDT [facility] Platelets 184 140 - 400 10*3/uL 09/29/2023 2:15 PM EDT [facility] MPV 11.3 7.5 - 12.5 fL 09/29/2023 2:15 PM EDT [facility] Neutrophil % 73.2 % 09/29/2023 2:15 PM EDT [facility] Immature Grans % 0.6 0.0 - 0.9 % 09/29/2023 2:15 PM EDT [facility] Lymphocyte % 16.5 % 09/29/2023 2:15 PM EDT [facility] Monocyte % 9.2 % 09/29/2023 2:15 PM EDT [facility] Eosinophil % 0.4 % 09/29/2023 2:15 PM EDT [facility] Basophil % 0.1 % 09/29/2023 2:15 PM EDT [facility] Neutrophil # 5.24 1.50 - 7.80 10*3/uL 09/29/2023 2:15 PM EDT [facility] [employer] Immature Grans # 0.04(H) <=0.03 10*3/uL 09/29/2023 2:15 PM EDT [facility] Lymphocyte # 1.20 0.85 - 3.90 10*3/uL 09/29/2023 2:15 PM EDT [facility] Monocyte # 0.70 0.20 - 0.95 10*3/uL 09/29/2023 2:15 PM EDT [facility] [employer] [facility] Eosinophil # <0.03 0.02 - 0.50 10*3/uL 09/29/2023 2:15 PM EDT [facility] Basophil # <0.03 0.00 - 0.20 10*3/uL 09/29/2023 2:15 PM EDT [facility] nRBC % 0.0 /100 WBCs 09/29/2023 2:15 PM EDT [facility] [employer] [facility] nRBC # <0.01 <0.01 10*3/uL 09/29/2023 2:15 PM EDT [facility] Total Neutrophil #, Preliminary 5.24 1.50 - 7.80 10*3/uL 09/29/2023 2:15 PM EDT [facility] [employer] [facility] Blood Structure of peripheral vein / Unknown Venipuncture / Unknown 09/29/2023 1:42 PM EDT 09/29/2023 2:06 PM EDT us George Vaca MD PhD LAB BLOOD ORDERABLES Final Resu lt [facility] [employer] [facility] [address] [place] [address], * (ABNORMAL) Comprehensive Metabolic Panel (09/29/2023 1:42 PM EDT) NA 137 135 - 145 mmol/L 09/29/2023 2:57 PM EDT [facility] K 4.6 3.5 - 5.3 mmol/L 09/29/2023 2:57 PM EDT [facility] Cl 100 98 - 107 mmol/L 09/29/2023 2:57 PM EDT [facility] CO2 23(L) 24 - 32 mmol/L 09/29/2023 2:57 PM EDT [facility] Anion Gap 14 5 - 15 09/29/2023 2:57 PM EDT [facility] Glucose 173(H) 65 - 99 mg/dL 09/29/2023 2:57 PM EDT [facility] Creatinine 1.94(H) 0.60 - 1.30 mg/dL 09/29/2023 2:57 PM EDT [facility] Calcium 9.4 8.6 - 10.5 mg/dL 09/29/2023 2:57 PM EDT [facility] Total Protein 7.9 6.0 - 8.0 g/dL 09/29/2023 2:57 PM EDT [facility] Albumin 4.1 3.5 - 5.2 g/dL 09/29/2023 2:57 PM EDT [facility] Bilirubin, Total 0.3 0.2 - 1.2 mg/dL 09/29/2023 2:57 PM EDT [facility] Alkaline Phosphatase 63 35 - 129 U/L 09/29/2023 2:57 PM EDT [facility] AST 57(H) 10 - 40 U/L 09/29/2023 2:57 PM EDT [facility] ALT 56(H) 10 - 40 U/L 09/29/2023 2:57 PM EDT [facility] BUN 47(H) 7 - 23 mg/dL 09/29/2023 2:57 PM EDT [facility] eGFR 34(L) >=60 mL/min/1 .73m2 09/29/2023 2:57 PM EDT [facility] Comment:The estimated glomer [...] - 4.2 g/dL 09/29/2023 2:57 PM EDT [facility] A/G Ratio 1.1(L) 1.5 - 3.0 09/29/2023 2:57 PM EDT [facility] Blood Structure of peripheral vein / Unknown Venipuncture / Unknown 09/29/2023 1:42 PM EDT 09/29/2023 2:06 PM EDT us George Vaca MD PhD LAB BLOOD ORDERABLES Final Resu lt [facility] [address] [place] [address], * (ABNORMAL) Vitamin D, 25-Hydroxy, Total, Immunoassay (03/19/2017 1:10 PM EST) Calcidiol+ercalc idiol 26(L) 30 - 100 ng/mL 03/20/2017 10:40 AM EST [facility] Comment: Vitamin D Status ? 25-OH Vitamin D: Deficiency: ?<20 ng/mL Insufficiency: ? 20 - 29 ng/mL Optimal: ? > or = 30 ng/mL For 25-OH Vitamin D testing on patients on D2-supplementation and patients for whom quantitation of D2 and D3 fractions is required, the QuestAssureD(TM) 25-OH VIT D, (D2,D3), LC/MS/MS is recommended: order code [id number] (patients >2yrs). For more information on this test, go to: http://education.Total Prestige/faq/HHE292 (This link is being provided for informational/educational purposes only.) Blood specimen (specimen) Structure of peripheral vein / Unknown Venipuncture / Unknown 03/19/2017 1:10 PM EST 03/19/2017 1:21 PM EST [facility] 03/20/2017 10:40 AM EST [facility] Received Date: Bethany SANTOS LAB BLOOD ORDERABLES Edit ed Result - Final [facility] [address], [place] [address], [facility] [address] [facility] [address], [place] [address], * (ABNORMAL) Hemoglobin A1c (03/19/2017 1:10 PM EST) Hemoglobin A1C 9.0(H) <5.7 % of total Hgb 03/19/2017 7:14 PM EST [facility] Comment: For someone without known diabetes, a [...] (MG/DL) 212 (calc) 03/19/2017 7:14 PM EST [employer] [facility] eAG (MMOL/L) 11.7 (calc) 03/19/2017 7:14 PM EST [employer] [facility] Blood specimen (specimen) Structure of peripheral vein / Unknown Venipuncture / Unknown 03/19/2017 1:10 PM EST 03/19/2017 1:21 PM EST Narrative [facility] - 03/19/2017 7:14 PM EST [facility] Received Date:[id number] Bethany SANTOS LAB BLOOD ORDERABLES Barbara l Result Performing Organization Address City/[facility]/ZIP Co de Phone Number [facility] [address], [place] [address], [facility] [employer] [facility] [address] [facility] [address] [facility], [place] [address], * (ABNORMAL) Phosphorus (12/20/2013 4:07 AM EDT) Phosphorus Blood 2.0(L) 2.5 - 4.5 mg/dL [facility] 12/20/2013 4:07 AM EDT 12/20/2013 4:29 AM EDT Camrno Strickland MD LAB BLOOD ORDERABLES Final Result Performing Organization Address City/[facility]/ZIP Co de Phone Number [facility] [address] [place] [address], [place] * CT Chest W Contrast (05/15/2010 [...] . COMMUNICATION: Per this written report. [facility] PROCEDURES Final Result from Last 3 Months or Most Recently Relevant to Health Maintenance Insurance Unit [address] [place] [address] MEDICARE [facility] Advance Directives Documents on File Type Date Recorded Patient Senior Quality Technician Expl anation Advance Directive 10/19/2008 12:00 AM christopher ramírez Dec Making (Adv.Dir) Care Teams Customer Order Clerk Relationship Specialty Start Date End Date Donte Powell [address] [place] [address] [place] [address] PCP - General 10/10/16
--- OUTSIDE RECORDS SUMMARY | 2024-07-29 15:51 | XMS_ITS | Clinical Summary ---
Author Organization [address] Address [address] [place] [phone] Phone Care Team Providers Care Landscape Crew Member Name Role Phone Donte Powell MD Primary Care Provider [phone] Encounters Date Type Department Care Team Description 06/10/2024 Lab Requisition [facility] [address] [place] [phone] Ross Saul MD Unspecified atrial fibrillation (CMS/HCC V24, CMS/HCC V28) 06/05/2024 Lab Requisition [facility] [address] [place] [phone] Ross Saul MD Unspecified atrial fibrillation (CMS/HCC V24, CMS/HCC V28) 06/03/2024 Lab Requisition [facility] [address] [place] [phone] Ross Saul MD Unspecified atrial fibrillation (CMS/HCC V24, CMS/HCC V28) 05/31/2024 Lab Requisition [facility] [address] [place] [phone] Ross Saul MD Unspecified atrial fibrillation (CMS/HCC V24, CMS/HCC V28); Anemia, unspecified; Anemia in chronic kidney disease (CODE) 05/29/2024 Lab Requisition [facility] [address] [place] [phone] Ross Saul MD Diarrhea, unspecified 05/29/2024 Lab Requisition [facility] [address] [facility] [place] [address] Ross Saul MD Unspecified atrial fibrillation ([facility] V24, [facility] V28); Diarrhea, unspecified 05/29/2024 Lab Requisition [facility] [address] [place] [address] Ross Saul MD Unspecified atrial fibrillation ([facility] V24, [facility] V28); Diarrhea, unspecified from Last 3 Months Surgical History Surgery Date Site/Laterality Comments APPENDECTOMY PROCEDURE: HISTORICAL APPENDECTOMY; COMMENT: 1946 OTHER SURGICAL HISTORY PROCEDURE: IN HEMORRHOID NTRNL & XTRNL 1 COLUMN W/FISSURECTO; COMMENT: 1971 CATARACT EXTRACTION PROCEDURE: HISTORICAL CATARACT REMOVAL; COMMENT: left and right, 2008 OTHER SURGICAL HISTORY PROCEDURE: IN BYP OTH/THN VEIN AORTOBIFEMORAL Medical History Medical History Date Comments HTN (hypertension) DX:HTN (hyper tension) Diabetes ([facility] V24, [facility] V28) DX:Diabetes (HCC) Hypercholesteremia DX:Hyperchole steremia Lymphoma ([facility] V24, [facility] V28) DX:Lymphoma (HCC); COMMENT: nk-t cell Atrial fibrillation ([facility] V24, [facility] V28) DX:Atrial fibrillation (HCC) Family History Medical [...] K/mcL LAB HEMETOLOGY METHOD 06/07/2024 10:26 AM [facility] RBC 2.80(L) 4.50 - 5.50 M/mcL LAB HEMETOLOGY METHOD 06/07/2024 10:26 AM [facility] Hemoglobin 8.8(L) 13.5 - 17.5 g/dL LAB HEMETOLOGY METHOD 06/07/2024 10:26 AM [facility] Hematocrit 28.8(L) 42.0 - 54.0 % LAB HEMETOLOGY METHOD 06/07/2024 10:26 AM [facility] MCV 102.5(H) 79.0 - 98.0 FL [...] K/mcL LAB HEMETOLOGY METHOD 06/07/2024 10:26 AM [facility] Blood Venous blood specimen / Unknown Venipuncture / Unknown 06/07/2024 5:10 AM EDT 06/07/2024 9:43 AM EDT us Ross Saul MD LAB BLOOD ORDERABLES Final Resu lt [facility] [address] [place] [address], * (ABNORMAL) Comprehensive metabolic panel (06/07/2024 5:10 AM EDT) Only the most recent of2 resultswithin the time period is included. [facility] Sodium 142 133 - 145 mmol/L LAB CHEMISTRY METHOD 06/07/2024 10:44 AM [facility] Potassium 4.1 3.5 - 5.5 mmol/L LAB CHEMISTRY METHOD 06/07/2024 10:44 AM [facility] Chloride 108 96 - 110 mmol/L LAB CHEMISTRY METHOD 06/07/2024 10:44 AM [facility] CO2 23 21 - 32 mmol/L LAB CHEMISTRY METHOD 06/07/2024 10:44 AM [facility] Anion Gap 11 3 - 11 LAB CHEMISTRY METHOD 06/07/2024 10:44 AM [facility] Glucose 115(H) 70 - 100 mg/dL LAB CHEMISTRY METHOD 06/07/2024 10:44 AM [facility] BUN 21 5 - 25 mg/dL LAB CHEMISTRY METHOD 06/07/2024 10:44 AM [facility] Creatinine 1.37(H) 0.70 - 1.30 mg/dL LAB CHEMISTRY METHOD 06/07/2024 10:44 AM [facility] eGFR 52(L) >=60 mL/min/1. 73m2 LAB CHEMISTRY METHOD 06/07/2024 10:44 AM [facility] Comment:Calculation based on the??Chronic Kidney Disease Epidemiology Collaboration (CKD-EPI) equation refit??without adjustment for race. BUN/Creatinine Ratio 15.3 LAB CHEMISTRY METHOD 06/07/2024 10:44 AM [facility] Calcium 8.3(L) 8.5 - 10.5 mg/dL LAB CHEMISTRY METHOD 06/07/2024 10:44 AM [facility] AST (SGOT) 92(H) 10 - 42 unit/L LAB CHEMISTRY METHOD 06/07/2024 10:44 AM [facility] ALT (SGPT) 64(H) 10 - 60 unit/L LAB CHEMISTRY METHOD 06/07/2024 10:44 AM [facility] Alkaline Phosphatase 139(H) 42 - 121 [...] ORDERABLES Final Resu lt Performing Organization Address City/[facility]/ZIP Co de Phone Number [facility] [address] [place] [address], [place] [phone] * (ABNORMAL) Norovirus molecular study (05/29/2024 1:45 PM EST) Norovirus GI Negative Negative 06/03/2024 6:05 AM EDT [facility] Norovirus GII Positive(A) Negative 06/03/2024 6:05 AM EDT [facility] Stool Rectum structure / Unknown 05/29/2024 1:45 PM EST 05/29/2024 6:13 PM EST Narrative [facility] - 06/03/2024 6:05 AM EDT Test(s) 523778-Hgbaprfgs GI; [id number]-Sypphgaxz GII was developed and its performance characteristics determined by [facility]. It has not been cleared or approved by the Food and Drug Administration. us Ross Saul MD LAB MICROBIOLOGY - [facility]AL [facility] Final Result [facility] * - Miscellaneous Test (05/29/2024 1:45 PM EST) Miscellaneous Test COMMENT 2024 6:05 AM EDT [facility] Stool 05/29/2024 1:45 PM EST 05/29/2024 6:13 PM EST Narrative [facility] - 06/03/2024 6:05 AM EDT Performed At: [address] [facility] [address] [id number] Cody Paul MD Ph:[phone] Performed At: 02 [facility] [address], [address] [place], [place] [id number] Jordan Aquino MD Ph:[phone] us Ross Saul MD LAB BLOOD ORDERABLES Final Resu lt [facility] from Last 3 Months Additional Health Concerns Infection Onset Date Last Indicated Norovirus 05/29/2024 05/29/2024 Insurance MEDICARE [facility] Care Teams Landscape Crew Member Relationship Specialty Start Date End Date Donte Powell MD [address] [place] PCP - General Internal Medicine 09/21/18
--- OUTSIDE RECORDS SUMMARY | 2024-07-29 15:51 | XMS_ITS | Clinical Summary ---
Author Organization [facility] [address] [place] [address] Phone Care Team Providers Care Hydrology Professor Name Role Phone Donte Powell MD Primary Care Provider [phone] Social History Tobacco Use Types Packs/Day Years [...] Office Visit [facility] [address] [place] [address] Homar Cadet MD [address] [address] Health Maintenance Due Date Last Done [...] , 12/04/2018, Additional history exists Insurance Medicare [facility] Care Teams Hydrology Professor Relationship Specialty Start Date End Date Donte Powell MD [address] [place] PCP - General Internal Medicine 05/26/24
--- OUTSIDE RECORDS SUMMARY | 2024-07-29 15:51 | XMS_ITS | Encounter Summary ---
Author Organization [facility] Address [address] [place] [address] Care Team Providers Care Indian Blanket Weaver Name Role Phone Donte Powell Primary Care Provider [phone] Encounter Details Date Type Department Care Team (Late st Contact Info) Description 03/21/2020 Orders Only [facility] [address] [place] [address] Violeta Plascencia, PharmD [address] [place], [place] [phone] Social History Tobacco Use Types Packs/Day Years [...] on filedocumented in this encounter Care Teams Indian Blanket Weaver Relationship Specialty Start Date End Date Donte Powell [address] [place] [address] dr [place], [place] [address] PCP - General 10/10/16 documented as of this encounter
== END 2024-07-29 15:43 | disposition home or self-care (01) ==
LOC: HO.HUSH 15:17
PROVIDERS: PCP Internal Medicine; Visit Provider Nurse Practitioner Family
DX: Z13.9 Encounter for screening, unspecified (principal)

== ENCOUNTER → 2024-07-29 15:17 | Outpatient (BNVA) | payer MEDICARE, OTHER, SELFPAY | PROVIDERS: PCP Internal Medicine; Visit Provider Nurse Practitioner Family | DX: N40.1 Benign prostatic hyperplasia with lower urinary tract symptoms (principal); R33.8 Other retention of urine; N13.8 Other obstructive and reflux uropathy; Z87.440 Personal history of urinary (tract) infections | CPT/HCPCS: 51798; 81003; 99212 ==

== ENCOUNTER 2024-08-06 14:12 | Outpatient (AMB) | payer MEDICARE, OTHER, SELFPAY ==
--- OUTSIDE RECORDS SUMMARY | 2024-08-06 14:16 | XMS_ITS ---
Author Organization Dean Parsons III, MD Address [address] [address] Care Team Providers Care Pest Control Supervisor Name Role Phone Donte Powell MD Primary Care Provider Unavaila Dean Patterson Unavailable [phone] REASON FOR VISIT Followup Encounters Encounter Location Date Provider Diagnosis Dean Parsons III, MD [address] [place] [address] [place] [address] 04/05/2024 Dean Parsons Plan Of Treatment Next Appt Details Provider Name:Dean Parsons, 11/02/2024 02:30:00 PM, [address] [place] [address] [place], [address], Progress Notes * Joel LOGANDOB:[birth year] (83 yo M)Acc No.[id number]:04/05/2024 Progress Notes Patient:?Joel LOGAN Provider:?Dean Parsons MD :1940???Age:83 Y???Sex:Male Srinivasan e:04/05/2024 Address:[address] [place] [address], nit [address] [place], [place] [id number] Pcp:Donte Powell MD Subjective: * Chief Complaints: [...] Parsons MD Date:?03/24 Generated for Pj manning/Bran/Ayan on:?08/06/2024 08:44 AM EDT
--- OUTSIDE RECORDS SUMMARY | 2024-08-06 14:16 | XMS_ITS | Patient Health Record ---
Author Organization Dean Parsons III, MD Address [address] [place] [address] Care Team Providers Care Manager Of Allied Health Services Name Role Phone Donte Powell MD Primary Care Provider Dean Hopson Unavailable [phone] Allergies Allergen (clinical drug ingredient) Drug/Non Drug Allergy documented on EMR Reaction Allergy Type Onset Date Status Shellfish (FN) Shellfish-derived Products Throat closes Drug Allergy Active almond allergenic extract [place] (Diagnostic) Unknown Drug Allergy Active warfarin Warfarin Sodium rash Drug Allergy A ctive Results Component Value Reference Range Notes Complete Blood Count Auto Di ff Reviewed date:09/13/2023 05:52:47 PM Interpretation: Performing Lab:[facility], [address] [place] [phone] Notes/Report: White Blood Count 5.6 4.8-10.8 X10*3/uL [...] te Reviewed date:09/13/2023 05:52:47 PM Interpretation: Performing Lab:[address] [address] Notes/Report: Erythrocyte Sedimentation Rate 53 0-15 MM/HR Patients with polycythemia and many hemoglobin abnormalities may have depressed sed rates whereas patients with anemia may have elevated sed rates. Comprehensive Met. Panel Reviewed date:09/13/2023 05:52:47 PM Interpretation: Performing Lab:[address] [address] Notes/Report: Sodium 138 135-145 mmol/L Potassium 4.0 3.3-5.1 mmol/L Chloride 107 96-108 mmol/L Carbon Dioxide 25 22-29 mmol/L Anion Gap 10 12-20 Blood Urea Nitrogen 29 9-16 mg/dL Creatinine 1.49 0.5-1.4 mg/dL Estimated Glomerular Filt Rate 45 NOTE: For -[place] Citizen individuals, multiply the result by 1.210. Chronic [...] Dehydrogenase Reviewed date:09/13/2023 05:52:47 PM Interpretation: Performing Lab:[facility], [address] [place] [phone] Notes/Report: Lactate Dehydrogenase 216 118-273 U/L Complete Blood Count Auto Di ff Reviewed date:04/18/2024 04:55:04 PM Interpretation: Performing Lab:[facility], [address] [place] [phone] Notes/Report: White Blood Count 4.6 4.8-10.8 X10*3/uL [...] NRBC Abs Auto 0.000 0.0-0.012 X10*3/uL Comprehensive [place]. Panel Fa st Reviewed date:04/18/2024 04:55:04 PM Interpretation: Performing Lab:[facility], [address] [place] [phone] Notes/Report: Sodium 135 135-145 mmol/L Potassium 4.1 [...] Panel Reviewed date:04/18/2024 04:55:04 PM Interpretation: Performing Lab:[facility], [address] [place] [phone] Notes/Report: Triglycerides 106 <150 mg/dL Desirable Triglyceride: [...] B12 Reviewed date:04/18/2024 04:55:04 PM Interpretation: Performing Lab:[facility], [address] [place] [phone] Notes/Report: Vitamin B12 725 200-900 pg/mL NORMAL 200-900 PG/ML INDETERMINATE 160-199 PG/ML DEFICIENT < 160 PG/ML Microalbumin, Random Reviewed date:04/18/2024 04:55:04 PM Interpretation: Performing Lab:[facility], [address] [place] [phone] Notes/Report: Creatinine Urine 45.72 Microalbumin Urine < 5.0 Microalbum/Creatinine Ratio Ur TNP <30 ug/mg cr Unable to calculate albumin/creatinine ratio due to low microalbumin or creatinine result. Hemoglobin A1c Reviewed date:04/18/2024 04:55:04 PM Interpretation: Performing Lab:[address] [address] Notes/Report: Hemoglobin A1c % 8.2 <6.0 % [...] average glucose, using the formula of the Q9C-Zfamtbr Average Glucose study (ADAG), Diabetes Care, Vol.31,#8, Oct. 2007 XR chest 2V Reviewed date:04/18/2024 04:55:04 PM Interpretation: Performing Lab: Notes/Report: [address] [address] XRay Report Signed Patient: Joel Logan Jr MR#: [id number] : 1940 Acct:[id number] Age/Sex: 83 / M ADM Date: 04/14/24 Loc: [facility] Attending Dr: Dean Parsons MD Ordering Physician: Dean Parsons MD Date of Service: 04/14/24 Procedure(s): XR chest 2V Accession Number(s): [id number] cc: Dean Parsons MD; Donte Powell MD [...] 04/14/24 0833 DD/ 0745 TD/TT: 04/14/24 0754 Ammonium Sulfate Operator: [place] [address] XRay Report Signed Patient: Joel Logan Jr MR#: [id number] : 1940 Acct:[id number] Age/Sex: 83 / M ADM Date: 04/14/24 Loc: HO.XRAY Attending Dr: Dean Parsons MD Ordering Physician: Dean Parsons MD Date of Service: 04/14/24 Procedure(s): XR bernardo st 2V Accession Number(s): [id number] cc: Dean Parsons MD; Donte Powell MD [...] 04/14/24 0833 DD/ 0745 TD/TT: 04/14/24 0754 Ammonium Sulfate Operator: NEIL Reason For Referral No Information Medications [...] Problem Status W/U Status Risk Notes Problem 7013440 Former smoker (Z87.891) Active confirmed He remains abstinent. He oglesby a planned to prevent relapse and times of stress and illness. Problem 843533477 Overweight (E66.3) Active confirmed His body mass index is 17. We discussed his diet and nutrition. We made a plan to lose weight at a rate of one half of a pound per week. Problem 31062088 Diabetes mellitu s (E11.9) Active confirmed His diabetes an d he is compliant with his treatment. No change in his regimen as necessary. Problem 906443457 Skin cancer (C44.90) Active confirmed The lesion on the left upper eyelid will be removed June 26, 2023. Problem 427492376 Chronic anticoagulation (Z79.01) Active confirmed He has had no bleeding on the Eliquis which he takes for atrial fibrillation. 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 Surveillance will continue at six-month intervals. He will return immediately for any symptoms of relapse. The nodular lesion on the right orthodox is in an area of previous disease but appears to be a basal cell. Problem 25724247 Essential hypertension (I10) Active confirmed His blood pressure is well controlled today and no change in his regimen was needed. Problem 31884195 Cataracts, bilateral (H26.9) Active confirmed He is nik g to have surgery October 23, 2022. Problem 04843695 Atrial fibrillation (I48.91) Active confirmed He is in a sinu s rhythm today with a rate of about 80. His cardiovascular status stable.. Problem 57008616 Hyperlipemia (E78.5) Active confirmed His lipids have been well controlled. No change in his regimen was needed. His statin therapy was continued. Problem 69015142 Peripheral vascular disease in diabetes mellitus (E11.51) [...] removed and the scar is healing. Problem 09648063 Acute kidney injury (N17.9) Active confirmed His BUN and creatinine are substantially elevated from baseline on the most recent blood work from the end of March. This was in the context of an episode of pneumonia. He has been referred back to primary care for management of the residual pneumonia and the renal function. 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 The nodular lesion on the right orthodox is in an area of previous disease [...] relapse. The nodular lesion on the right orthodox is in an area of previous disease [...] C) 10/10/2022 PROFILE, RANDOM (COMPREHENSIVE METABOLIC ) 06/18/2021 PROFILE, RANDOM (COMPREHENSIVE METABOLIC ) 06/16/2018 PROFILE, RANDOM (COMPREHENSIVE METABOLIC ) 12/13/2016 PROFILE, RANDOM (COMPREHENSIVE METABOLIC ) 06/16/2020 PROFILE, RANDOM (COMPREHENSIVE METABOLIC ) 12/16/2017 PROFILE, RANDOM (COMPREHENSIVE METABOLIC ) 12/17/2019 PROFILE, RANDOM (COMPREHENSIVE METABOLIC ) 05/28/2019 PROFILE, RANDOM (COMPREHENSIVE METABOLIC ) 06/13/2017 PROFILE, RANDOM (COMPREHENSIVE METABOLIC ) 06/18/2019 PROFILE, RANDOM (COMPREHENSIVE METABOLIC ) 2021 PROFILE, RANDOM (COMPREHENSIVE METABOLIC ) 05/29/2023 LIPID PANEL 10/10/2022 LDH 06/13/2017 LDH 06/18/2019 LDH 2021 LDH 05/29/2023 LDH 10/10/2022 LDH 06/18/2021 LDH 06/16/2018 LDH 12/13/2016 LDH 06/16/2020 LDH 12/16/2017 LDH 12/17/2019 LDH 02/06/2023 LDH 05/28/2019 PSA, TOTAL SCREEN 2021 CBC w DIFF 12/17/2019 CBC w DIFF 02/06/2023 CBC w DIFF 05/28/2019 CBC w DIFF 06/13/2017 CBC w DIFF 06/18/2019 CBC w DIFF 05/29/2023 CBC w DIFF 10/10/2022 CBC w DIFF 2021 CBC w DIFF 06/18/2021 CBC w DIFF 06/16/2018 CBC w DIFF 12/13/2016 CBC w DIFF 06/16/2020 CBC w DIFF 12/16/2017 SED RATE (ESR) 12/17/2019 SED RATE (ESR) [...] Details Provider Name:Dean Parsons, 11/02/2024 02:30:00 PM, [address] [place] [address] [address] [facility] [place], [place], [address], Insurance Providers Payer Name Payer Address Payer Phone Subscriber Number Group Number Insured Name Patient Relationship to Insured Coverage Start Date Coverage End Date MEDICARE NGS [address] [place] [phone] [id number] Matilde levineJoel Self - patient is the insured [employer] [address] [place] [address] [id number] Carriehussain Joel levine Self - patient is [...] and aspirate autologous stem cell transpl [facility] left femoral popliteal bypass surgery 2013 vascular bypass surgery left lower extre mity 12/2014 angioplasty left leg [facility] 2017 skin cancer removed from ear 2018 Basal cell carcinoma of face 2021 No history Hospitalization History Reason Date(Month/Year) No history
--- OUTSIDE RECORDS SUMMARY | 2024-08-06 14:16 | XMS_ITS | Encounter Summary ---
Author Organization [facility] Address [address] [place] [address] Care Team Providers Care Retail Client Solutions Consultant Name Role Phone Donte Powell MD Primary Care Provider [phone] Encounter Details Date Type Department Care Team (Late st Contact Info) Description 05/29/2024 Lab Requisition [facility] - Main Lab [address] [place] [address] Ross Saul MD [address] [place] [address] Unspecified atrial fibrillation (CMS/HCC V24, [...] [facility] - 06/03/2024 6:05 AM EDT Test(s) 533550-Hemvnknkd GI; 046982-Qovpkpftk GII was developed and its performance characteristics determined by [facility]. It has not been cleared or approved by the Food and Drug Administration. Ross Saul MD LAB MICROBIOLOGY - GENERAL ORDE [facility] Final Result Performing Organization Address City/[facility]/ZIP Co de Phone Number [facility] * - Miscellaneous Test (05/29/2024 1:45 PM EST) Miscellaneous Test COMMENT 2024 6:05 AM EDT [facility] Stool 05/29/2024 1:45 PM EST 05/29/2024 6:13 PM EST Narrative [facility] - 06/03/2024 6:05 AM EDT Performed At: [address] [id number] Cody Paul MD Ph:[phone] Performed At: 02 [facility] [place] [address] [place] [address], [address] [place] [id number] Jordan Aquino MD Ph:[phone] Ross Saul MD LAB BLOOD ORDERABLES Final Resu lt Performing Organization Address City/[facility]/ZIP Co de Phone Number [facility] documented in this encounter Visit Diagnoses Diagnosis Unspecified atrial fibrillation (CMS/HCC V24, CMS/HCC V28) Diarrhea, unspecified documented in this encounter Additional Health Concerns Infection Onset Date Last Indicated Resolved Time Norovirus 05/29/2024 05/29/2024 documented as of this encounter Care Teams Retail Client Solutions Consultant Relationship Specialty Start Date End Date Donte Powell MD [address] [place] [address] Dr Rl [place] PCP - General Internal Medicine 09/21/18 documented as of this encounter
--- OUTSIDE RECORDS SUMMARY | 2024-08-06 14:16 | XMS_ITS ---
Author Organization Dean Parsons III, MD Address [address] [place] [address] Care Team Providers Care Guidance Services Coordinator Name Role Phone Donte Powell MD Primary Care Provider Dean Hopson Unavailable [phone] Allergies Allergen (clinical drug ingredient) Drug/Non Drug Allergy documented on EMR Reaction Allergy Type Onset Date Status almond allergenic extract [place] (Diagnostic) Unknown Drug Allergy Active Shellfish (FN) [...] Date Provider Diagnosis Dean Parsons III, MD [address] [place] [address] DR [place], [place] [address] 10/02/2023 Dean Parsons Lymphoma C85.90 ; Overweight [...] relapse. The nodular lesion on the right anabaptist is in an area of previous disease [...] OV Provider Name:Dean Parsons, 11/02/2024 02:30:00 PM, [address] [place] [address] DR [facility] [place], [place], [address], Progress Notes * Joel LOGANB:[birth year] (82 yo M)Acc No.[id number]:10/02/2023 Progress Notes Patient:?Joel Logan Provider:?Dean Parsons MD :1940???Age:82 Y???Sex:Male Srinivasan e:10/02/2023 Address:[address] [place], [place] [id number] Pcp:Donte Powell MD Subjective: * Chief Complaints: * ???Lymphoma in remissionMult iple cutaneous squamous cell carcinomaAortic stenosisHypertensionPeripheral arterial diseaseAtrial fibrillationAnticoagulation * HPI: ???COVID-19 Screening:? 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 No sign of the disease was found today. He recently spent several nights at the [facility] with uncontrolled atrial fibrillation and aortic [...] biopsy and aspirate autologous stem cell transplant [facility] left femoral popliteal bypass surgery 04/2013vascular [...] and is retired. He was born in [place], [place]. He has 4 biological children. 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 * Medications:?TakingCarboxyme thylcellulose [...] relapse. The nodular lesion on the right anabaptist is in an area of previous disease [...] * Provider:?Dean Parsons MD Date:?09/21 Generated for Printi ng/Fajerrig/eTransmitting on:?08/06/2024 08:44 AM EDT History and Physical Notes * HPI [...]
--- OUTSIDE RECORDS SUMMARY | 2024-08-06 14:16 | XMS_ITS | Encounter Summary ---
Author Organization [facility] Address [address] [place] [address] Care Team Providers Care Final Armature Tester Name Role Phone Donte Powell MD Primary Care Provider [phone] Encounter Details Date Type Department Care Team (Late st Contact Info) Description 05/29/2024 Lab Requisition [facility] - Main Lab [address] [place] [address] Ross Saul MD [address] [place] [address] Unspecified atrial fibrillation (CMS/HCC V24, [...] documented as of this encounter Care Teams Final Armature Tester Relationship Specialty Start Date End Date Donte Powell MD [address] [place] [address] Dr Rl [place] PCP - General Internal Medicine 09/21/18 documented as of this encounter
--- OUTSIDE RECORDS SUMMARY | 2024-08-06 14:17 | XMS_ITS | Encounter Summary ---
Author Organization [facility] Address [address] [place] [address] Care Team Providers Care Customer Program Manager Name Role Phone Donte Powell MD Primary Care Provider [phone] Encounter Details Date Type Department Care Team (Late st Contact Info) Description 06/03/2024 Lab Requisition [facility] - Main Lab [address] [place] [address] Ross Saul MD [address] [place] [address] Unspecified atrial fibrillation (CMS/HCC V24, [...] documented as of this encounter Care Teams Customer Program Manager Relationship Specialty Start Date End Date Donte Powell MD [address] [place] [address] Dr Rl [place] PCP - General Internal Medicine 09/21/18 documented as of this encounter
--- OUTSIDE RECORDS SUMMARY | 2024-08-06 14:17 | XMS_ITS | Encounter Summary ---
Author Organization [facility] Address [address] [place] [address] Care Team Providers Care Emergency Room Specialist Name Role Phone Donte Powell MD Primary Care Provider [phone] Encounter Details Date Type Department Care Team (Late st Contact Info) Description 06/05/2024 Lab Requisition [facility] - Main Lab [address] [facility] [place] [address] Ross Saul MD [address] [place] [address] Unspecified atrial fibrillation (CMS/HCC V24, [...] mmol/L LAB CHEMISTRY METHOD 06/07/2024 10:44 AM [facility] Potassium 4.1 3.5 - 5.5 mmol/L LAB CHEMISTRY METHOD 06/07/2024 10:44 AM [facility] Chloride 108 96 - 110 mmol/L LAB CHEMISTRY METHOD 06/07/2024 10:44 AM [facility] CO2 23 21 - 32 mmol/L LAB CHEMISTRY METHOD 06/07/2024 10:44 AM [facility] Anion Gap 11 3 - 11 LAB CHEMISTRY METHOD 06/07/2024 10:44 AM [facility] Glucose 115(H) 70 - 100 mg/dL LAB CHEMISTRY METHOD 06/07/2024 10:44 AM [facility] BUN 21 5 - 25 mg/dL LAB CHEMISTRY METHOD 06/07/2024 10:44 AM [facility] Creatinine 1.37(H) 0.70 - 1.30 mg/dL LAB CHEMISTRY METHOD 06/07/2024 10:44 AM [facility] eGFR 52(L) >=60 mL/min/1. 73m2 LAB CHEMISTRY METHOD 06/07/2024 10:44 AM [facility] Comment:Calculation based on the??Chronic Kidney Disease Epidemiology Collaboration (CKD-EPI) equation refit??without adjustment for race. BUN/Creatinine Ratio 15.3 LAB CHEMISTRY METHOD 06/07/2024 10:44 AM [facility] Calcium 8.3(L) 8.5 - 10.5 mg/dL LAB CHEMISTRY METHOD 06/07/2024 10:44 AM [facility] AST (SGOT) 92(H) 10 - 42 unit/L LAB CHEMISTRY METHOD 06/07/2024 10:44 AM [facility] ALT (SGPT) 64(H) 10 - 60 unit/L LAB CHEMISTRY METHOD 06/07/2024 10:44 AM [facility] Alkaline Phosphatase 139(H) 42 - 121 unit/L LAB CHEMISTRY METHOD 06/07/2024 10:44 AM EDT [facility] Total Protein 6.1 6.0 - 8.0 g/dL LAB CHEMISTRY METHOD 06/07/2024 10:44 AM EDT [facility] Albumin 2.4(L) 3.2 - 5.0 g/dL LAB CHEMISTRY METHOD 06/07/2024 10:44 AM EDT [facility] Total Bilirubin 0.5 0.0 - 1.4 mg/dL LAB CHEMISTRY METHOD 06/07/2024 10:44 AM EDT [facility] Blood Venous blood specimen / Unknown Venipuncture / Unknown 06/07/2024 5:10 AM EDT 06/07/2024 9:45 AM EDT us Ross Saul MD LAB BLOOD ORDERABLES Final Resu lt [facility] [address] [place] [address], [place] [phone] * (ABNORMAL) Complete blood count (06/07/2024 5:10 AM EDT) WBC 4.7(L) 4.8 - 10.8 K/mcL LAB HEMETOLOGY METHOD 06/07/2024 10:26 AM EDT [facility] RBC 2.80(L) 4.50 - 5.50 M/mcL LAB HEMETOLOGY METHOD 06/07/2024 10:26 AM EDT [facility] Hemoglobin 8.8(L) 13.5 - 17.5 g/dL LAB HEMETOLOGY METHOD 06/07/2024 10:26 AM T [facility] Hematocrit 28.8(L) 42.0 - 54.0 % LAB HEMETOLOGY METHOD 06/07/2024 10:26 AM EDT [facility] MCV 102.5(H) 79.0 - 98.0 FL LAB HEMETOLOGY METHOD 06/07/2024 10:26 AM EDT [facility] MCH 31.3 27.0 - 32.0 pcg LAB HEMETOLOGY METHOD 06/07/2024 10:26 AM EDT [facility] MCHC 30.6(L) 32.0 - 37.0 g/dL LAB HEMETOLOGY METHOD 06/07/2024 10:26 AM EDT [facility] RDW 17.2(H) 11.0 - 15.0 % LAB HEMETOLOGY METHOD 06/07/2024 10:26 AM EDT [facility] Platelets 220 130 - 400 K/mcL LAB HEMETOLOGY METHOD 06/07/2024 10:26 AM EDT [facility] MPV 11.5(H) 7.0 - 11.0 FL LAB HEMETOLOGY METHOD 06/07/2024 10:26 AM EDT [facility] NRBC 0.0 <1.0 % LAB HEMETOLOGY METHOD 06/07/2024 10:26 AM EDT [facility] NRBC Absolute 0.00 <0.10 K/mcL LAB HEMETOLOGY METHOD 06/07/2024 10:26 AM EDT [facility] Blood Venous blood specimen / Unknown Venipuncture / Unknown 06/07/2024 5:10 AM EDT 06/07/2024 9:43 AM EDT us Ross Saul MD LAB BLOOD ORDERABLES Final Resu lt [facility] [address] [place] [address], documented in this encounter Visit Diagnoses Diagnosis Unspecified atrial fibrillation (CMS/HCC V24, CMS/HCC V28) documented in this encounter Additional Health Concerns Infection Onset Date Last Indicated Resolved Time Norovirus 05/29/2024 05/29/2024 documented as of this encounter Care Teams Emergency Room Specialist Relationship Specialty Start Date End Date Donte Powell MD [address] [place] [address] Dr Rl [place] PCP - General Internal Medicine 09/21/18 documented as of this encounter
--- OUTSIDE RECORDS SUMMARY | 2024-08-06 14:17 | XMS_ITS | Encounter Summary ---
Author Organization [facility] Address [address] [place] [address] Care Team Providers Care Utility Worker [place] Name Role Phone Donte Powell MD Primary Care Provider [phone] Encounter Details Date Type Department Care Team (Late st Contact Info) Description 06/10/2024 Lab Requisition [facility] - Main Lab [address] [place] [address] Ross Saul MD [address] [place] [address] Unspecified atrial fibrillation (CMS/HCC V24, [...] documented as of this encounter Care Teams Utility Worker [place] Relationship Specialty Start Date End Date Donte Powell MD [address] [place] [address] Dr Rl [place] PCP - General Internal Medicine 09/21/18 documented as of this encounter
--- OUTSIDE RECORDS SUMMARY | 2024-08-06 14:17 | XMS_ITS | Encounter Summary ---
Author Organization [facility] Address [address] [place] [address] Care Team Providers Care Keller Machine Operator Name Role Phone Donte Powell MD Primary Care Provider [phone] Encounter Details Date Type Department Care Team (Late st Contact Info) Description 05/31/2024 Lab Requisition [facility] - Main Lab [address] [facility] [place] [address] Ross Saul MD [address] [place] [address] Unspecified atrial fibrillation (CMS/HCC V24, [...] mmol/L LAB CHEMISTRY METHOD 05/31/2024 10:49 AM [facility] Potassium 4.7 3.5 - 5.5 mmol/L LAB CHEMISTRY METHOD 05/31/2024 10:49 AM [facility] Chloride 110 96 - 110 mmol/L LAB CHEMISTRY METHOD 05/31/2024 10:49 AM [facility] CO2 21 21 - 32 mmol/L LAB CHEMISTRY METHOD 05/31/2024 10:49 AM [facility] Anion Gap 10 3 - 11 LAB CHEMISTRY METHOD 05/31/2024 10:49 AM [facility] Glucose 125(H) 70 - 100 mg/dL LAB CHEMISTRY METHOD 05/31/2024 10:49 AM [facility] BUN 27(H) 5 - 25 mg/dL LAB CHEMISTRY METHOD 05/31/2024 10:49 AM [facility] Creatinine 1.45(H) 0.70 - 1.30 mg/dL LAB CHEMISTRY METHOD 05/31/2024 10:49 AM [facility] eGFR 48(L) >=60 mL/min/1. 73m2 LAB CHEMISTRY METHOD 05/31/2024 10:49 AM [facility] Comment:Calculation based on the??Chronic Kidney Disease Epidemiology Collaboration (CKD-EPI) equation refit??without adjustment for race. BUN/Creatinine Ratio 18.6 LAB CHEMISTRY METHOD 05/31/2024 10:49 AM [facility] Calcium 7.7(L) 8.5 - 10.5 mg/dL LAB CHEMISTRY METHOD 05/31/2024 10:49 AM [facility] AST (SGOT) 117(H) 10 - 42 unit/L LAB CHEMISTRY METHOD 05/31/2024 10:49 AM [facility] ALT (SGPT) 66(H) 10 - 60 unit/L LAB CHEMISTRY METHOD 05/31/2024 10:49 AM EDT [facility] Alkaline Phosphatase 122(H) 42 - 121 unit/L LAB CHEMISTRY METHOD 05/31/2024 10:49 AM EDT [facility] Total Protein 5.8(L) 6.0 - 8.0 g/dL LAB CHEMISTRY METHOD 05/31/2024 10:49 AM EDT [facility] Albumin 2.2(L) 3.2 - 5.0 g/dL LAB CHEMISTRY METHOD 05/31/2024 10:49 AM EDT [facility] Total Bilirubin 0.4 0.0 - 1.4 mg/dL LAB CHEMISTRY METHOD 05/31/2024 10:49 AM T [facility] Blood Venous blood specimen / Unknown Venipuncture / Unknown 05/31/2024 5:15 AM EDT 05/31/2024 9:44 AM EDT us Ross Saul MD LAB BLOOD ORDERABLES Final Resu lt [facility] [address] [place] [address], [place] [phone] * (ABNORMAL) Complete blood count (05/31/2024 5:15 AM EDT) WBC 4.0(L) 4.8 - 10.8 K/mcL LAB HEMETOLOGY METHOD 05/31/2024 10:27 AM EDT [facility] RBC 2.60(L) 4.50 - 5.50 M/mcL LAB HEMETOLOGY METHOD 05/31/2024 10:27 AM EDT [facility] Hemoglobin 8.6(L) 13.5 - 17.5 g/dL LAB HEMETOLOGY METHOD 05/31/2024 10:27 AM EDT [facility] Hematocrit 27.4(L) 42.0 - 54.0 % LAB HEMETOLOGY METHOD 05/31/2024 10:27 AM EDT [facility] MCV 105.8(H) 79.0 - 98.0 FL LAB HEMETOLOGY METHOD 05/31/2024 10:27 AM EDT [facility] MCH 33.2(H) 27.0 - 32.0 pcg LAB HEMETOLOGY METHOD 05/31/2024 10:27 AM EDT [facility] MCHC 31.4(L) 32.0 - 37.0 g/dL LAB HEMETOLOGY METHOD 05/31/2024 10:27 AM EDT [facility] RDW 17.7(H) 11.0 - 15.0 % LAB [facility]OLOGY [facility] Platelets 199 130 - 400 K/mcL LAB HEMETOLOGY METHOD 05/31/2024 10:27 AM EDT [facility] MPV 11.7(H) 7.0 - 11.0 FL LAB HEMETOLOGY METHOD 05/31/2024 10:27 AM EDT [facility] NRBC 0.0 <1.0 % LAB HEMETOLOGY METHOD 05/31/2024 10:27 AM T [facility] NRBC Absolute 0.00 <0.10 K/mcL LAB HEMETOLOGY METHOD 05/31/2024 10:27 AM EDT [facility] Blood Venous blood specimen / Unknown Venipuncture / Unknown 05/31/2024 5:15 AM EDT 05/31/2024 9:44 AM EDT us Ross Saul MD LAB BLOOD ORDERABLES Final Resu lt [facility] [address] [place] [address], documented in this encounter Visit Diagnoses Diagnosis Unspecified atrial fibrillation ([facility] V24, [facility] V28) Anemia, unspecified Anemia in chronic kidney disease (CODE) documented in this encounter Additional Health Concerns Infection Onset Date Last Indicated Resolved Time Norovirus 05/29/2024 05/29/2024 documented as of this encounter Care Teams Keller Machine Operator Relationship Specialty Start Date End Date Donte Powell MD [address] [place] [address] Dr Rl [place] PCP - General Internal Medicine 09/21/18 documented as of this encounter
--- OUTSIDE RECORDS SUMMARY | 2024-08-06 14:18 | XMS_ITS | Referral Summary ---
Author Organization [facility] Address [address] [place] [address] Care Team Providers Care Sawsmith Name Role Phone Donte Powell Primary Care Provider [phone] Allergies Active Allergy Reactions Criticality Noted Date Comments [place] [employer] he is allergic to shellfish [...] Not on file Procedures * Due to [place] law, this organization might not be sharing [...] to Health Maintenance Results * Due to [place] law, this organization might not be sharing negative HIV tests. * (ABNORMAL) CBC Auto Differential (09/29/2023 1:42 PM EDT) WBC 7.2 3.8 - 10.8 10*3/uL 09/29/2023 2:15 PM EDT [facility] RBC 3.74(L) 4.20 - 5.80 10*6/uL 09/29/2023 2:15 PM EDT [facility] Hemoglobin 11.4(L) 13.2 - 17.1 g/dL 09/29/2023 2:15 PM EDT [facility] Hematocrit 35.5(L) 38.5 - 50.0 % 09/29/2023 2:15 PM EDT [facility] MCV 94.9 80.0 - 100.0 fL 09/29/2023 2:15 PM EDT [facility] MCH 30.5 27.0 - 33.0 pg 09/29/2023 2:15 PM EDT [facility] MCHC 32.1 32.0 - 36.0 g/dL 09/29/2023 2:15 PM EDT [facility] RDW 14.7 11.0 - 15.0 % 09/29/2023 2:15 PM EDT [facility] Platelets 184 140 - 400 10*3/uL 09/29/2023 2:15 PM EDT [facility] MPV 11.3 7.5 - 12.5 fL 09/29/2023 2:15 PM EDT [facility] Neutrophil % 73.2 % 09/29/2023 2:15 PM EDT [facility] Immature Grans % 0.6 0.0 - 0.9 % 09/29/2023 2:15 PM EDT [facility] Lymphocyte % 16.5 % 09/29/2023 2:15 PM EDT [facility] Monocyte % 9.2 % 09/29/2023 2:15 PM EDT [facility] Eosinophil % 0.4 % 09/29/2023 2:15 PM EDT [facility] Basophil % 0.1 % 09/29/2023 2:15 PM EDT [facility] Neutrophil # 5.24 1.50 - 7.80 10*3/uL 09/29/2023 2:15 PM EDT [facility] [employer] [facility] Immature Grans # 0.04(H) <=0.03 10*3/uL 09/29/2023 2:15 PM EDT [facility] Lymphocyte # 1.20 0.85 - 3.90 10*3/uL 09/29/2023 2:15 PM EDT [facility] Monocyte # 0.70 0.20 - 0.95 10*3/uL 09/29/2023 2:15 PM EDT [facility] [employer] [facility] Eosinophil # <0.03 0.02 - 0.50 10*3/uL 09/29/2023 2:15 PM EDT [facility] Basophil # <0.03 0.00 - 0.20 10*3/uL 09/29/2023 2:15 PM EDT [facility] nRBC % 0.0 /100 WBCs 09/29/2023 2:15 PM EDT [facility] [employer] [facility] nRBC # <0.01 <0.01 10*3/uL 09/29/2023 2:15 PM EDT [facility] Total Neutrophil #, Preliminary 5.24 1.50 - 7.80 10*3/uL 09/29/2023 2:15 PM EDT [facility] [employer] [facility] Blood Structure of peripheral vein / Unknown Venipuncture / Unknown 09/29/2023 1:42 PM EDT 09/29/2023 2:06 PM EDT us George Vaca MD PhD LAB BLOOD ORDERABLES Final Resu lt [facility] [employer] [facility] [address] [place] [address], * (ABNORMAL) Comprehensive Metabolic Panel (09/29/2023 1:42 PM EDT) NA 137 135 - 145 mmol/L 09/29/2023 2:57 PM EDT [facility] K 4.6 3.5 - 5.3 mmol/L 09/29/2023 2:57 PM EDT [facility] Cl 100 98 - 107 mmol/L 09/29/2023 2:57 PM EDT [facility] CO2 23(L) 24 - 32 mmol/L 09/29/2023 2:57 PM EDT [facility] Anion Gap 14 5 - 15 09/29/2023 2:57 PM EDT [facility] Glucose 173(H) 65 - 99 mg/dL 09/29/2023 2:57 PM EDT [facility] Creatinine 1.94(H) 0.60 - 1.30 mg/dL 09/29/2023 2:57 PM EDT [facility] Calcium 9.4 8.6 - 10.5 mg/dL 09/29/2023 2:57 PM EDT [facility] Total Protein 7.9 6.0 - 8.0 g/dL 09/29/2023 2:57 PM EDT [facility] Albumin 4.1 3.5 - 5.2 g/dL 09/29/2023 2:57 PM EDT [facility] Bilirubin, Total 0.3 0.2 - 1.2 mg/dL 09/29/2023 2:57 PM EDT [facility] Alkaline Phosphatase 63 35 - 129 U/L 09/29/2023 2:57 PM EDT [facility] AST 57(H) 10 - 40 U/L 09/29/2023 2:57 PM EDT [facility] ALT 56(H) 10 - 40 U/L 09/29/2023 2:57 PM EDT [facility] BUN 47(H) 7 - 23 mg/dL 09/29/2023 2:57 PM EDT [facility] eGFR 34(L) >=60 mL/min/1 .73m2 09/29/2023 2:57 PM EDT [facility] Comment:The estimated glomer ular [...] - 4.2 g/dL 09/29/2023 2:57 PM EDT [facility] A/G Ratio 1.1(L) 1.5 - 3.0 09/29/2023 2:57 PM EDT [facility] Blood Structure of peripheral vein / Unknown Venipuncture / Unknown 09/29/2023 1:42 PM EDT 09/29/2023 2:06 PM EDT us George Vaca MD PhD LAB BLOOD ORDERABLES Final Resu lt [facility] [address] [place] [address], * (ABNORMAL) Vitamin D, 25-Hydroxy, Total, Immunoassay (03/19/2017 1:10 PM EST) Calcidiol+ercalc idiol 26(L) 30 - 100 ng/mL 03/20/2017 10:40 AM EST [facility] Comment: Vitamin D Status ? 25-OH Vitamin D: Deficiency: ?<20 ng/mL Insufficiency: ? 20 - 29 ng/mL Optimal: ? > or = 30 ng/mL For 25-OH Vitamin D testing on patients on D2-supplementation and patients for whom quantitation of D2 and D3 fractions is required, the QuestAssureD(TM) 25-OH VIT D, (D2,D3), LC/MS/MS is recommended: order code 15545 (patients >2yrs). For more information on this test, go to: http://education.StARTinitiative/faq/DLJ148 (This link is being provided for informational/educational purposes only.) Blood specimen (specimen) Structure of peripheral vein / Unknown Venipuncture / Unknown 03/19/2017 1:10 PM EST 03/19/2017 1:21 PM EST [facility] - 03/20/2017 10:40 AM EST [facility] Received Date: Bethany SANTOS LAB BLOOD ORDERABLES Edit ed Result - Final [facility] [address], [place] [address], [employer] [facility] [address], [place] [address], * (ABNORMAL) Hemoglobin A1c (03/19/2017 1:10 PM EST) Hemoglobin A1C 9.0(H) <5.7 % of total Hgb 03/19/2017 7:14 PM EST [employer] [facility] Comment: For someone without known diabetes, [...] (MG/DL) 212 (calc) 03/19/2017 7:14 PM EST [employer] [facility] eAG (MMOL/L) 11.7 (calc) 03/19/2017 7:14 PM EST [employer] [facility] Blood specimen (specimen) Structure of peripheral vein / Unknown Venipuncture / Unknown 03/19/2017 1:10 PM EST 03/19/2017 1:21 PM EST Narrative [facility] - 03/19/2017 7:14 PM EST [facility] Received Date:[id number] Bethany SANTOS LAB BLOOD ORDERABLES Barbara l Result Performing Organization Address City/[facility]/ZIP Co de Phone Number [facility] [address], [place] [address], [facility] [employer] [facility] [address] [facility], [place] [address], * (ABNORMAL) Phosphorus (12/20/2013 4:07 AM EDT) Phosphorus Blood 2.0(L) 2.5 - 4.5 mg/dL [facility] 12/20/2013 4:07 AM EDT 12/20/2013 4:29 AM EDT Camron Strickland MD LAB BLOOD ORDERABLES Final Result Performing Organization Address City/[facility]/ZIP Co de Phone Number [facility] [address] [place] [address], [place] * CT Chest W Contrast (05/15/2010 [...] . COMMUNICATION: Per this written report. [facility] PROCEDURES Final Result from Last 3 Months or Most Recently Relevant to Health Maintenance Insurance Unit [address] [place] [address] MEDICARE [facility] Advance Directives Documents on File Type Date Recorded Patient [place] Expl anation Advance Directive 10/19/2008 12:00 AM christopher ramírez Dec Making (Adv.Dir) Care Teams Sawsmith Relationship Specialty Start Date End Date Donte Powell [address] [place] [address] [place] [address] PCP - General 10/10/16
--- OUTSIDE RECORDS SUMMARY | 2024-08-06 14:18 | XMS_ITS ---
Author Organization [facility] Address [address] [place] [address] Care Team Providers Care Diesel Locomotive Crane Operator Name Role Phone Donte Powell Primary Care Provider [phone] Active Problems Problem Noted Date Diagnosed Date [...]
--- OUTSIDE RECORDS SUMMARY | 2024-08-06 14:18 | XMS_ITS | Encounter Summary ---
Author Organization [facility] Address [address] [place] [address] Care Team Providers Care Education Supervisor Name Role Phone Donte Powell Primary Care Provider [phone] Encounter Details Date Type Department Care Team (Late st Contact Info) Description 03/21/2020 Orders Only [facility] [address] [place] [address] Violeta Plascencia, PharmD [address] [place], [place] [id number] Social History Tobacco Use Types Packs/Day Years [...] on filedocumented in this encounter Care Teams Education Supervisor Relationship Specialty Start Date End Date Donte Powell [address] [place] [address] dr Mac [place], [place] [address] PCP - General 10/10/16 documented as of this encounter
--- OUTSIDE RECORDS SUMMARY | 2024-08-06 14:18 | XMS_ITS | Encounter Summary ---
Author Organization [facility] Address [address] [place] [address] Care Team Providers Care Enchilada Maker Name Role Phone Donte Powell MD Primary Care Provider [phone] Encounter Details Date Type Department Care Team (Late st Contact Info) Description 05/29/2024 Lab Requisition [facility] - Main Lab [address] [facility] [place] [address] Ross Saul MD [address] [place] [address] Diarrhea, unspecified Social History Tobacco [...] documented as of this encounter Care Teams Enchilada Maker Relationship Specialty Start Date End Date Donte Powell MD [address] [place] [address] Dr Rl [place] PCP - General Internal Medicine 09/21/18 documented as of this encounter
--- OUTSIDE RECORDS SUMMARY | 2024-08-06 14:18 | XMS_ITS | Clinical Summary ---
Author Organization [facility] Address [address] [place] [address] Care Team Providers Care Mechanical Design Engineer Name Role Phone Donte Powell Primary Care Provider [phone] Allergies Active Allergy Reactions Criticality Noted Date Comments [place] Swelling High he is allergic to shellfish [...] 11/15/2019, 03/24, 03/24/2013 Procedures * Due to [facility] law, this organization might not be [...] to Health Maintenance Results * Due to [employer] law, this organization might not be sharing negative HIV tests. * (ABNORMAL) CBC Auto Differential (09/29/2023 1:42 PM EDT) WBC 7.2 3.8 - 10.8 10*3/uL 09/29/2023 2:15 PM EDT [facility] RBC 3.74(L) 4.20 - 5.80 10*6/uL 09/29/2023 2:15 PM EDT [facility] Hemoglobin 11.4(L) 13.2 - 17.1 g/dL 09/29/2023 2:15 PM EDT [facility] Hematocrit 35.5(L) 38.5 - 50.0 % 09/29/2023 2:15 PM EDT [facility] MCV 94.9 80.0 - 100.0 fL 09/29/2023 2:15 PM EDT [facility] MCH 30.5 27.0 - 33.0 pg 09/29/2023 2:15 PM EDT [facility] MCHC 32.1 32.0 - 36.0 g/dL 09/29/2023 2:15 PM EDT [facility] RDW 14.7 11.0 - 15.0 % 09/29/2023 2:15 PM EDT [facility] Platelets 184 140 - 400 10*3/uL 09/29/2023 2:15 PM EDT [facility] MPV 11.3 7.5 - 12.5 fL 09/29/2023 2:15 PM EDT [facility] Neutrophil % 73.2 % 09/29/2023 2:15 PM EDT [facility] Immature Grans % 0.6 0.0 - 0.9 % 09/29/2023 2:15 PM EDT [facility] Lymphocyte % 16.5 % 09/29/2023 2:15 PM EDT [facility] Monocyte % 9.2 % 09/29/2023 2:15 PM EDT [facility] Eosinophil % 0.4 % 09/29/2023 2:15 PM EDT [facility] Basophil % 0.1 % 09/29/2023 2:15 PM EDT [facility] Neutrophil # 5.24 1.50 - 7.80 10*3/uL 09/29/2023 2:15 PM EDT [facility] Immature Grans # 0.04(H) <=0.03 10*3/uL 09/29/2023 2:15 PM EDT [facility] Lymphocyte # 1.20 0.85 - 3.90 10*3/uL 09/29/2023 2:15 PM EDT [facility] Monocyte # 0.70 0.20 - 0.95 10*3/uL 09/29/2023 2:15 PM EDT [facility] Eosinophil # <0.03 0.02 - 0.50 10*3/uL 09/29/2023 2:15 PM EDT [facility] Basophil # <0.03 0.00 - 0.20 10*3/uL 09/29/2023 2:15 PM EDT [facility] nRBC % 0.0 /100 WBCs 09/29/2023 2:15 PM EDT [facility] nRBC # <0.01 <0.01 10*3/uL 09/29/2023 2:15 PM EDT [facility] Total Neutrophil #, Preliminary 5.24 1.50 - 7.80 10*3/uL 09/29/2023 2:15 PM EDT [facility] Blood Structure of peripheral vein / Unknown Venipuncture / Unknown 09/29/2023 1:42 PM EDT 09/29/2023 2:06 PM EDT us George Vaca MD PhD LAB BLOOD ORDERABLES Final Resu lt [facility] [address] [place] [address], [place] * (ABNORMAL) Comprehensive Metabolic Panel (09/29/2023 1:42 PM EDT) NA 137 135 - 145 mmol/L 09/29/2023 2:57 PM EDT [facility] K 4.6 3.5 - 5.3 mmol/L 09/29/2023 2:57 PM EDT [facility] Cl 100 98 - 107 mmol/L 09/29/2023 2:57 PM EDT [facility] CO2 23(L) 24 - 32 mmol/L 09/29/2023 2:57 PM EDT [facility] Anion Gap 14 5 - 15 09/29/2023 2:57 PM EDT [facility] Glucose 173(H) 65 - 99 mg/dL 09/29/2023 2:57 PM EDT [facility] Creatinine 1.94(H) 0.60 - 1.30 mg/dL 09/29/2023 2:57 PM EDT [facility] Calcium 9.4 8.6 - 10.5 mg/dL 09/29/2023 2:57 PM EDT [facility] Total Protein 7.9 6.0 - 8.0 g/dL 09/29/2023 2:57 PM EDT [facility] Albumin 4.1 3.5 - 5.2 g/dL 09/29/2023 2:57 PM EDT [facility] Bilirubin, Total 0.3 0.2 - 1.2 mg/dL 09/29/2023 2:57 PM EDT [facility] Alkaline Phosphatase 63 35 - 129 U/L 09/29/2023 2:57 PM EDT [facility] AST 57(H) 10 - 40 U/L 09/29/2023 2:57 PM EDT [facility] ALT 56(H) 10 - 40 U/L 09/29/2023 2:57 PM EDT [facility] BUN 47(H) 7 - 23 mg/dL 09/29/2023 2:57 PM EDT [facility] eGFR 34(L) >=60 mL/min/1 .73m2 09/29/2023 2:57 PM EDT [facility] Comment:The estimated glomer ular [...] - 4.2 g/dL 09/29/2023 2:57 PM EDT [facility] A/G Ratio 1.1(L) 1.5 - 3.0 09/29/2023 2:57 PM EDT [facility] Blood Structure of peripheral vein / Unknown Venipuncture / Unknown 09/29/2023 1:42 PM EDT 09/29/2023 2:06 PM EDT us George Vaca MD PhD LAB BLOOD ORDERABLES Final Resu lt [facility] [address] [place] [address], * (ABNORMAL) Vitamin D, 25-Hydroxy, Total, Immunoassay (03/19/2017 1:10 PM EST) Calcidiol+ercalc idiol 26(L) 30 - 100 ng/mL 03/20/2017 10:40 AM EST [facility] Comment: Vitamin D Status ? 25-OH Vitamin D: Deficiency: ?<20 ng/mL Insufficiency: ? 20 - 29 ng/mL Optimal: ? > or = 30 ng/mL For 25-OH Vitamin D testing on patients on D2-supplementation and patients for whom quantitation of D2 and D3 fractions is required, the QuestAssureD(TM) 25-OH VIT D, (D2,D3), LC/MS/MS is recommended: order code 97039 (patients >2yrs). For more information on this test, go to: http://education.Rentabilities/faq/SCG587 (This link is being provided for informational/educational purposes only.) Blood specimen (specimen) Structure of peripheral vein / Unknown Venipuncture / Unknown 03/19/2017 1:10 PM EST 03/19/2017 1:21 PM EST Narrative [facility] - 03/20/2017 10:40 AM EST [facility] Received Date: Bethany SANTOS LAB BLOOD ORDERABLES Edit ed Result - Final [facility] [address] [facility] [address] [facility], [place] [address], [facility] [address] [facility] 3rd [address], [place] [address], * (ABNORMAL) Hemoglobin A1c (03/19/2017 1:10 PM EST) Pathologist [facility] Hemoglobin A1C 9.0(H) <5.7 % of total Hgb 03/19/2017 7:14 PM EST [facility] Comment: For someone without known diabetes, a [...] (MG/DL) 212 (calc) 03/19/2017 7:14 PM EST [facility] eAG (MMOL/L) 11.7 (calc) 03/19/2017 7:14 PM EST [facility] Blood specimen (specimen) Structure of peripheral vein / Unknown Venipuncture / Unknown 03/19/2017 1:10 PM EST 03/19/2017 1:21 PM EST Narrative [facility] - 03/19/2017 7:14 PM EST [facility] Received Date:[id number] Bethany SANTOS LAB BLOOD ORDERABLES Barbara l Result [facility] [address] [facility] 3rd Floor, [place] [address], [place] [phone] [facility] [address] [facility] [address]rd [address], [place] [address], [place] [phone] * (ABNORMAL) Phosphorus (12/20/2013 4:07 AM EDT) Phosphorus Blood 2.0(L) 2.5 - 4.5 mg/dL [facility] 12/20/2013 4:07 AM EDT 12/20/2013 4:29 AM EDT us Camron Strickland MD LAB BLOOD ORDERABLES Final Result Performing Organization Address [facility] Co de Phone Number [facility] [address] [place] [address], [place] * CT Chest W Contrast (05/15/2010 [...] . COMMUNICATION: Per this written report. Result [facility] PROCEDURES Final Result from Last 3 Months or Most Recently Relevant to Health Maintenance Insurance Unit [address] [place] [address] MEDICARE [facility] Advance Directives Documents on File Type Date Recorded Patient Advice Clerk Expl anation Advance Directive 10/19/2008 12:00 AM christopher ramírez Dec Making (Adv.Dir) Care Teams Mechanical Design Engineer Relationship Specialty Start Date End Date Donte Powell [address] [place] [address] dr Mac Watts, [place] [address] PCP - General 10/10/16
--- OUTSIDE RECORDS SUMMARY | 2024-08-06 14:18 | XMS_ITS | Clinical Summary ---
Author Organization [address] Address [address] [place] [phone] Phone Care Team Providers Care Cloth Shrinking Tester Name Role Phone Donte Powell MD Primary Care Provider [phone] Encounters Date Type Department Care Team Description 06/10/2024 Lab Requisition [facility] [address] [place] [phone] Ross Saul MD Unspecified atrial fibrillation (CMS/HCC V24, CMS/HCC V28) 06/05/2024 Lab Requisition [facility] [address] [place] [phone] Ross Saul MD Unspecified atrial fibrillation (CMS/HCC V24, CMS/HCC V28) 06/03/2024 Lab Requisition [facility] [address] [place] [phone] Ross Saul MD Unspecified atrial fibrillation (CMS/HCC V24, CMS/HCC V28) 05/31/2024 Lab Requisition [facility] [address] [place] [phone] Ross Saul MD Unspecified atrial fibrillation (CMS/HCC V24, CMS/HCC V28); Anemia, unspecified; Anemia in chronic kidney disease (CODE) 05/29/2024 Lab Requisition [facility] [address] [place] [phone] Ross Saul MD Diarrhea, unspecified 05/29/2024 Lab Requisition [facility] [address] [facility] [place] [address] Ross Saul MD Unspecified atrial fibrillation ([facility] V24, [facility] V28); Diarrhea, unspecified 05/29/2024 Lab Requisition [facility] [address] [place] [address] Ross Saul MD Unspecified atrial fibrillation ([facility] V24, [facility] V28); Diarrhea, unspecified from Last 3 Months Surgical History Surgery Date Site/Laterality Comments APPENDECTOMY PROCEDURE: HISTORICAL APPENDECTOMY; COMMENT: 1947 OTHER SURGICAL HISTORY PROCEDURE: [place] HEMORRHOID NTRNL & XTRNL 1 COLUMN W/FISSURECTO; COMMENT: 1971 CATARACT EXTRACTION PROCEDURE: HISTORICAL CATARACT REMOVAL; COMMENT: left and right, 2008 OTHER SURGICAL HISTORY PROCEDURE: [place] BYP OTH/THN VEIN AORTOBIFEMORAL Medical History Medical History Date Comments HTN (hypertension) DX:HTN (hyper tension) Diabetes ([facility] V24, [facility] V28) DX:Diabetes (HCC) Hypercholesteremia DX:Hyperchole steremia Lymphoma ([facility] V24, [facility] V28) DX:Lymphoma (HCC); COMMENT: nk-t cell Atrial fibrillation ([facility] V24, [facility] V28) DX:Atrial fibrillation (HCC) Family History Medical [...] K/mcL LAB HEMETOLOGY METHOD 06/07/2024 10:[address] [facility] RBC 2.80(L) 4.50 - 5.50 M/mcL LAB HEMETOLOGY METHOD 06/07/2024 10:[address] [facility] Hemoglobin 8.8(L) 13.5 - 17.5 g/dL LAB HEMETOLOGY METHOD 06/07/2024 10:[address] [facility] Hematocrit 28.8(L) 42.0 - 54.0 % LAB HEMETOLOGY METHOD 06/07/2024 10:[address] [facility] MCV 102.5(H) 79.0 - 98.0 FL LAB HEMETOLOGY METHOD 06/07/2024 10:[address] [facility] MCH 31.3 27.0 - 32.0 pcg LAB HEMETOLOGY METHOD 06/07/2024 10:[address] [facility] MCHC 30.6(L) 32.0 - 37.0 g/dL LAB HEMETOLOGY METHOD 06/07/2024 10:[address] [facility] RDW 17.2(H) 11.0 - 15.0 % LAB HEMETOLOGY METHOD 06/07/2024 10:[address] [facility] Platelets 220 130 - 400 K/mcL LAB HEMETOLOGY METHOD 06/07/2024 10:[address] [facility] MPV 11.5(H) 7.0 - 11.0 FL LAB HEMETOLOGY METHOD 06/07/2024 10:[address] [facility] NRBC 0.0 <1.0 % LAB HEMETOLOGY METHOD 06/07/2024 10:[address] [facility] NRBC Absolute 0.00 <0.10 K/mcL LAB HEMETOLOGY METHOD 06/07/2024 10:[address] [facility] Blood Venous blood specimen / Unknown Venipuncture / Unknown 06/07/2024 5:10 AM EDT 06/07/2024 9:43 AM EDT us Ross Saul MD LAB BLOOD ORDERABLES Final Resu lt [facility] [address] [place] [address], * (ABNORMAL) Comprehensive metabolic panel (06/07/2024 5:10 AM EDT) Only the most recent of2 resultswithin the time period is included. [facility] Sodium 142 133 - 145 mmol/L LAB [...] LAB CHEMISTRY METHOD 06/07/2024 10:[address] [facility] Total Protein 6.1 6.0 - 8.0 g/dL LAB CHEMISTRY METHOD 06/07/2024 10:[address] [facility] Albumin 2.4(L) 3.2 - 5.0 g/dL LAB CHEMISTRY METHOD 06/07/2024 10:[address] [facility] Total Bilirubin 0.5 0.0 - 1.4 mg/dL LAB CHEMISTRY METHOD 06/07/2024 10:[address] [facility] Blood Venous blood specimen / Unknown Venipuncture / Unknown 06/07/2024 5:10 AM EDT 06/07/2024 9:45 AM EDT us Ross Saul MD LAB BLOOD ORDERABLES Final Resu lt Performing Organization Address City/[facility]/ZIP Co de Phone Number [facility] [address] [place] [address], [place] [phone] * (ABNORMAL) Norovirus molecular study (05/29/2024 1:45 PM EST) Norovirus GI Negative Negative 06/03/2024 6:05 AM EDT [facility] Norovirus GII Positive(A) Negative 06/03/2024 6:05 AM EDT [facility] Stool Rectum structure / Unknown 05/29/2024 1:45 PM EST 05/29/2024 6:13 PM EST Narrative [facility] - 06/03/2024 6:05 AM EDT Test(s) 349921-Huprcfzfn GI; 046054-Xuaellpnz GII was developed and its performance characteristics determined by [facility]. It has not been cleared or approved by the Food and Drug Administration. us Ross Saul MD LAB [facility]OLOGY - [facility] Final Result [facility] * - Miscellaneous Test (05/29/2024 1:45 PM EST) Miscellaneous Test COMMENT 2024 6:05 AM EDT [facility] Stool 05/29/2024 1:45 PM EST 05/29/2024 6:13 PM EST Narrative [facility] - 06/03/2024 6:05 AM EDT Performed At: [address] [facility] [address] [id number] Cody Paul MD Ph:[phone] Performed At: 02 [facility] [address] [facility], [address] [place], [place] [id number] Jordan Aquino MD Ph:[phone] us Ross Saul MD LAB BLOOD ORDERABLES Final Resu lt [facility] from Last 3 Months Additional Health Concerns Infection Onset Date Last Indicated Norovirus 05/29/2024 05/29/2024 Insurance MEDICARE [facility] Care Teams Cloth Shrinking Tester Relationship Specialty Start Date End Date Donte Powell MD [address] [place] PCP - General Internal Medicine 09/21/18
--- OUTSIDE RECORDS SUMMARY | 2024-08-06 14:18 | XMS_ITS | Clinical Summary ---
Author Organization [facility] [address] [place] [address] Phone Care Team Providers Care Equipment Service Engineer Name Role Phone Donte Powell MD Primary Care Provider [phone] Social History Tobacco Use Types Packs/Day Years [...] Office Visit [facility] [address] [place] [address] Homar Cadet MD [phone] [address] Health Maintenance Due Date Last [...] , 12/04/2018, Additional history exists Insurance Medicare [facility] Care Teams Equipment Service Engineer Relationship Specialty Start Date End Date Donte Powell MD [address] [place] PCP - General Internal Medicine 05/26/24
--- OUTSIDE RECORDS SUMMARY | 2024-08-06 14:18 | XMS_ITS ---
Author Organization Dean Parsons III, MD Address [address] [place] [address] Care Team Providers Care Business Systems Architect Name Role Phone Donte Powell MD Primary Care Provider Dean [place] Unavailable [phone] Allergies Allergen (clinical drug ingredient) Drug/Non Drug Allergy documented on EMR Reaction Allergy Type Onset Date Status almond allergenic extract [place] (Diagnostic) Unknown Drug Allergy Active Shellfish (FN) [...] Problem Status W/U Status Risk Notes Problem [id number] Acute kidney injury (N17.9) Active confirmed His [...] Date Provider Diagnosis Dean Parsons III, MD [address] [place] [address] [place] [address] 05/04/2024 Dean Parsons Lymphoma C85.90 ; Overweight [...] relapse. 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 He was born in [place], [place]. He has 4 biological children. 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 * Medications:?TakingAspir-81 Advair [...] & Time - 04/14/2024 07:38 AM)?ValueReference Range?Vitamin [id number] - pg/mL * Lab:Microalbumin, Random * Collection [...] relapse. The nodular lesion on the right confucianist is in an area of previous disease [...] Parsons MD Date:?04/24 Generated for Pj manning/Bran/eTransmitting on:?08/06/2024 08:44 AM EDT History and Physical [...]
--- NOTE | 2024-08-06 14:19 | A.OFFPC_ITS ---
Vital Signs 08/06/24 14:26 Height 5 ft 6 in Weight 79.832 kg BMI 28.4 BP 130/52 L Respiration 16 Pulse 77 Pulse Source Pulse Oximeter Temp 98.0 F Temp Source Temporal Artery Scan Pulse Oximetry (%) 97 Oxygen Delivery Method Room Air Intake Visit Reasons: Routine Manager Ems Required: No Accompanied by: Self / Same As Patient Allergies No Known Allergies Allergy (Verified 08/06/24 14:21) Medication List - Last Reconciled 08/06/24 by DANIELLE Graham amiodarone 200 mg PO BID apixaban (Eliquis) 2.5 mg PO BID atorvastatin 40 mg PO DAILY betamethasone dipropionate 0.05% topical carboxymethylcellulose sodium 0.5% (Refresh Tears) drps ophthalmic (eye) cholecalciferol (vitamin D3) 125 mcg PO DAILY empagliflozin (Jardiance) mg PO fenofibrate 108 mg PO DAILY finasteride 5 mg PO DAILY fluticasone propion-salmeterol 250-50 mcg/dose (Advair Diskus) 1 ea inhalation BID furosemide 40 mg PO DAILY insulin aspart U-100 (Novolog FlexPen U-100 Insulin aspart) subcut insulin glargine (Lantus Solostar U-100 Insulin) 18 units subcut BID insulin syringe-needle U-100 (BD Insulin Syringe Ultra-Fine) As directed lorazepam mg PO metoprolol tartrate 12.5 mg PO BID silver sulfadiazine 1% appl topical terazosin 5 mg PO BEDTIME 90 days HPI HPI Comments History of Present Illness Details 83-year-old male with history of hyperte nsion, type 2 diabetes, hyperlipidemia, paroxysmal atrial fibrillation, lymphoma, and BPH presents to the office today to follow-up on chronic conditions and establish care. He tells me that he has had 2 hospitalizations in the last 6 months at [facility]. He reports in February he was hospitalized for pneumonia and rhino virus. In May had an extensive left lower extremity DVT and underwent thrombectomy. LLL DVT-s/p thrombectomy. On Eliquis 2.5 mg for anticoagulation. Continue swallowing with [facility] vascular surgery. Continues with [facility] in the home for dressing changes Paroxysmal atrial fibrillation-follows with Dr. Rodriguez at [facility]. Compliant with Eliquis 2.5 mg twice daily for anticoagulation. Denies any easy bruisability or bleeding. He is asymptomatic-no shortness a breath, lightheadedness, palpitations, or chest pain. He is also on amiodarone as well as metoprolol for rate control. 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 He is also following with Dr. Parsons Hypertension-compliant with metoprolol. Blood pressure at goal Hyperlipidemia-compliant with atorvastatin BPH-following with Urology. Last PSA 0.28. Continues on finasteride and terazosin with good effect. Type 2 diabetes-reports variation in his blood glucose levels. He is compliant with 16 units of Lantus twice daily and does use sliding scale but states sometimes he forgets to use this prior to meals and occasionally will use his insulin postprandially General: No fevers, malaise, unintentional weight loss HEENT: No blurred vision, diplopia. No sore throat, nasal congestion, rhinorrhea, sinus pain, ear pain Cardiovascular: No chest pain, palpitations, or leg edema Respiratory: No shortness of breath, wheezing, cough Neuro: No headaches, weakness, paresthesias Skin: No rashes or lesions Constitutional - Awake and Alert, No apparent distress Eyes - PERRLA, EOMI Cardiovascular - S1S2, RRR, No edema Respiratory - Normal lung expansion, Normal respiratory effort, No respiratory distress, CTA bilaterally Extremities - no calf tenderness bilaterally, no swelling Skin - Warm/Dry Neurological - Alert & oriented x3 Psychological - Appropriate affect [facility], [facility] Medical History (Updated 08/06/24 @ 14:45 by DANIELLE Graham) NK/T-cell lymphoma Atrial fibrillation Hyperlipidemia Diabetes mellitus HTN (hypertension) Rotator cuff tendonitis Surgical History (Updated 08/05/24 @ 07:45 by Bertha Gonzales) History of colonoscopy (~01/19/18) History of surgery Physical exam (Primary Care) Vital Signs: Last Vital Signs Temp 98.0 F 08/06/24 14: Pulse 77 08/06/24 14:26 Resp 16 08/06/24 14:26 BP 130/52 L 08/06/24 14:26 Pulse Ox 97 08/06/24 14:26 Oxygen Delivery Method Room Air 08/06/24 14:26 BMI result Body Mass Index 28.4 Coding Level of Care Code New Pt Level 4 (10939) Complex EM visit Add On G2211 Diagnoses HTN (hypertension) I10 Hyperlipidemia E78.5 Diabetes mellitus E11.9 Atrial fibrillation I48.91 BPH w urinary obs/LUTS N40.1; N13.8 Assessment & Plan Assessment & Plan (1) HTN (hypertension): Code(s): I10 - Essential (primary) hypertension Category: Medical Plan: Controlled. Continue metoprolol 12.5 mg twice daily, furosemide. (2) Hyperlipidemia: Code(s): E78.5 - Hyperlipidemia, unspecified Category: Medical Plan: Lipid panel ordered. Continue atorvastatin 40 mg daily. Low-fat diet (3) Diabetes mellitus: Code(s): E11.9 - Type 2 diabetes mellitus without complications Category: Medical Plan: Hemoglobin A1c ordered. Continue Lantus 16 units twice daily and NovoLog on sliding scale. Encouraged patient to check his glucose levels prior to eating and dose insulin as appropriate. Diabetic diet encouraged. Follow for routine eye exams and foot exams annually (4) Atrial fibrillation: Code(s): I48.91 - Unspecified atrial fibrillation Category: Medical Plan: Rate controlled. Continue Eliquis 2.5 mg twice daily and amiodarone 200 mg twice daily. Use metoprolol 12.5 mg twice daily for rate control. Follow-up with cardiology as scheduled. (5) BPH w urinary obs/LUTS: Code(s): N40.1 - Benign prostatic hyperplasia with lower urinary tract symptoms; N13.8 - Other obstructive and reflux uropathy Category: Medical Plan: Reasonably controlled. Continue terazosin and finasteride. Urology note reviewed. Follow-up as scheduled. Last PSA within normal range. Plan Follow-up in 6 months. Labs to be completed following visit. Orders: Orders Basic Metabolic Panel Today E11.9 - Type 2 diabetes mellitus without complications, E78.5 - Hyperlipidemia, unspecified, I10 - Essential (primary) hypertension, I48.91 - Unspecified atrial fibrillation Hemoglobin A1c Today E11.9 - Type 2 diabetes mellitus without complications, E78.5 - Hyperlipidemia, unspecified, I10 - Essential (primary) hypertension, I48.91 - Unspecified atrial fibrillation TSH reflex Free T4 Today E11.9 - Type 2 diabetes mellitus without complications, E78.5 - Hyperlipidemia, unspecified, I10 - Essential (primary) hypertension, I48.91 - Unspecified atrial fibrillation Complete Blood Count Auto Diff Today E11.9 - Type 2 diabetes mellitus without complications, E78.5 - Hyperlipidemia, unspecified, I10 - Essential (primary) hypertension, I48.91 - Unspecified atrial fibrillation Lipid Panel Today E11.9 - Type 2 diabetes mellitus without complications, E78.5 - Hyperlipidemia, unspecified, I10 - Essential (primary) hypertension, I48.91 - Unspecified atrial fibrillation Liver Panel Today E11.9 - Type 2 diabetes mellitus without complications, E78.5 - Hyperlipidemia, unspecified, I10 - Essential (primary) hypertension, I48.91 - Unspecified atrial fibrillation Medications: New lorazepam 0.5 mg PO BEDTIME 30 tabs 0RF
[2024-08-06 14:26] VITALS: BP 130/52; PULSE 77; RESP 16; TEMP 36.7; O2SAT 97; BMI 28.4
== END 2024-08-06 14:59 | disposition home or self-care (01) ==
LOC: HO.HMCHD 14:12
PROVIDERS: PCP Internal Medicine; Visit Provider Physician Assistant
DX: I10 Essential (primary) hypertension (principal); E78.5 Hyperlipidemia, unspecified; E11.9 Type 2 diabetes mellitus without complications; I48.91 Unspecified atrial fibrillation; N40.1 Benign prostatic hyperplasia with lower urinary tract symptoms; N13.8 Other obstructive and reflux uropathy

== ENCOUNTER → 2024-08-06 14:12 | Outpatient (BNVA) | payer MEDICARE, OTHER, SELFPAY | PROVIDERS: PCP Internal Medicine; Visit Provider Physician Assistant | DX: I10 Essential (primary) hypertension (principal); E11.9 Type 2 diabetes mellitus without complications; E78.5 Hyperlipidemia, unspecified; I48.0 Paroxysmal atrial fibrillation; N40.1 Benign prostatic hyperplasia with lower urinary tract symptoms; N13.8 Other obstructive and reflux uropathy; Z86.718 Personal history of other venous thrombosis and embolism; Z79.01 Long term (current) use of anticoagulants | CPT/HCPCS: 99202 ==

== ENCOUNTER 2024-08-26 15:19 | Outpatient (REF) | payer MEDICARE, OTHER, SELFPAY ==
[2024-08-26 15:45] LABS: MANUAL DIFF FLAG NO
[2024-08-26 15:56] LABS: Basophils Percent Auto 0.4 % (0-2); Eosinophils Percent Auto 0.4 % (0-4); Hematocrit 30.6 % (42.0-52.0); Hemoglobin 9.5 g/dl (14.0-18.0); Imm Gran Abs Auto 0.04 X10*3/uL (0.00-0.03); Imm Gran Pct Auto 0.8 % (0.0-0.4); Lymphocytes Absolute Auto 0.8 X10*3/uL (1.2-4.9); Lymphocytes Percent Auto 14.8 % (20-40); Mean Corpuscular Hemoglobin 31.5 pg (27.0-33.0); Mean Corpuscular Volume 101.3 fL (80.0-98.0); Mean Platelet Volume 11.4 fL (9.4-12.4); Monocytes Absolute Auto 0.7 X10*3/uL (0.1-1.2); Monocytes Percent Auto 12.7 % (2-11); Neutrophils Absolute Auto 3.6 x10*3/uL (2.0-8.3); Neutrophils Percent Auto 70.9 % (45-73); Platelet Count 156 X10*3/uL (160-400); Red Blood Count 3.02 X10*6/uL (4.60-5.80); Red Cell Distribution Width 17.2 % (11.0-16.0); White Blood Count 5.1 X10*3/uL (4.8-10.8)
[2024-08-26 16:00] LABS: Appearance Urine Clear; Color Urine Yellow; Glucose Urine UA >=1000 mg/dL (Negative); Leukocyte Esterase Urine Negative (Negative); Nitrite Urine Negative (Negative); PH 5.5 (5.0-9.0); UMIC TRIGGER UA YES; Urine Blood Negative (Negative); Urine Ketones Negative (Negative); Urine Protein Negative (Neg-Trace)
[2024-08-26 16:21] LABS: Bacteria Urine Trace (None Seen); Hyaline Casts Urine 0-2 /LPF (0-2); RBC Urine 0-2 /HPF (0-2); Squamous Epithelial Cell Urine 0-2 /HPF (0-2); WBC Urine 0-5 /HPF (0-5)
[2024-08-26 16:46] LABS: Anion Gap 10 (12-20); Blood Urea Nitrogen 40 mg/dL (9-16); Calcium 8.8 mg/dL (8.4-10.2); Carbon Dioxide 25 mmol/L (22-29); Chloride 106 mmol/L (96-108); Estimated Glomerular Filt Rate 33; Glucose Random 137 mg/dL (60-115); Magnesium 2.2 mg/dL (1.6-2.6); Phosphorus 3.9 mg/dL (2.7-4.5); Potassium 4.3 mmol/L (3.3-5.1); Sodium 137 mmol/L (135-145)
[2024-08-26 17:04] LABS: Creatinine Urine 70.57 mg/dL; Microalbumin Urine < 5.0 mg/L; Total Protein Urine Random < 7 mg/dL (<12)
[2024-08-26 17:28] LABS: PTH Intact Intraoperative 104.3 pg/mL (8.7-77.1)
--- OUTSIDE RECORDS SUMMARY | 2024-08-26 17:53 | XMS_ITS | Clinical Summary ---
Author Organization Unknown Care Team Providers Care Optical Fabrication Technician Name Role Phone DAVID PALACIO, ELAINE Unavailable Unavailable DEBRA RN, IZABELLA Unavailable Unavailable ENRIQUE MORENO, MARINO Unavailable Unavailable AMRIT PT, JAMES Unavailable Unavail able Payers Payer Name Policy Type Policy Number Effective Date Expira tion Date MEDICARE.NGS.PDGM [id number] Problems Condition Name Condition Details Condition Category Status Onset Date Resolution Date Last Treatment Date Treating Clinician Comments ENCNTR FOR SURGICAL AFTCR FOLLOWING SURGERY ON THE CIRC SYS Active 06-10 00:00: 00 TYPE 2 DIABETES W DIABETIC PERIPHERAL ANGIOPATH W/O GANGRENE Active 06-10 00:00: 00 [place]CL [place] ARTERIES OF EXTRM W INTRMT GRACIELA, LEFT [...] OF NICOTINE DEPENDENCE Active 06-10 00:00: 00 PRISON (CURRENT) USE OF INSULIN Active 03-24 00:00: 00 PRISON (CURRENT) USE OF ORAL HYPOGLYCEMIC DRUGS Active 03-24 00:00: 00 PRISON (CURRENT) USE OF OPIATE ANALGESIC Active 07-20 00:00: 00 Allergies, Adverse Reactions, Alerts Allergy [...] 07-13 00:00: 00 10-23 23:59 :00 No [id number] SHORTNESS OF BREATH, WHEEZING Per instruc tions EVERY 4 HOURS Per instructio ns EVERY 4 HOURS (route: inhalation ) Med Classific ation: Respirato ry Therapy Agents albuterol sulfate HFA 90 mcg/actuati on aerosol inhaler 07-13 00:00: 00 07-19 00:00 :00 No [id number] Per instruc tions EVERY 4 HOURS NEEDED Per instructio ns EVERY 4 HOURS NEEDED (route: inhalation ) Med Classific ation: Respirato ry Therapy Agents BD Insulin Syringe Ultra-Fine 1 mL 31 gauge x 16 4-18 00:00: 00 07-19 00:00 :00 No [id number] Per instruc tions Per instructio ns (route: miscellane ous) Med Classific ation: Medical Supplies and Durable Medical Equipment (DME) terazosin 5 mg capsule 4-18 00:00: 00 10-23 23:59 :00 No [id number] BPH 1 capsule DAILY 1 capsule DAILY (route: oral) Med Classific ation: Cardiovas cular Therapy Agents Lantus U-100 Insulin 100 unit/mL subcutaneou s solution 4-13 00:00: 00 07-19 00:00 :00 No [id number] Per instruc tions Per instructio ns (route: subcutaneo us) Med Classific ation: Endocrine fenofibrate 54 mg tablet 4-11 00:00: 00 10-23 23:59 :00 No [id number] BPH 2 tablet DAILY 2 tablet DAILY (route: oral) Med Classific ation: Cardiovas cular Therapy Agents atorvastati n 10 mg tablet 2-18 00:00: 00 10-23 23:59 :00 No [id number] HLD 1 tablet BEDTIME 1 tablet BEDTIME (route: oral) Med Classific ation: Cardiovas cular Therapy Agents nifedipine ER 30 mg tablet,exte nded release 2-18 00:00: 00 10-23 23:59 :00 No [id number] HTN 1 tablet DAILY 1 tablet DAILY (route: oral) Med Classific ation: Cardiovas cular Therapy Agents Lantus U-100 Insulin 100 unit/mL subcutaneou s solution 2-15 00:00: 00 10-23 23:59 :00 No [id number] DM 18 unit 2 TIMES DAILY 18 unit 2 TIMES DAILY (route: subcutaneo us) Med Classific ation: Endocrine terazosin 5 mg capsule 2-10 00:00: 00 07-19 00:00 :00 No [id number] Per instruc tions Per instructio ns (route: oral) Med Classific ation: Cardiovas cular Therapy Agents BD Insulin Syringe Ultra-Fine 1 mL 31 gauge x 08/06 2 00:00: 00 07-19 00:00 :00 No [id number] Per instruc tions Per instructio ns (route: miscellane ous) Med Classific ation: Medical Supplies and Durable Medical Equipment (DME) finasteride 5 mg tablet 04-20 00:00: 00 10-23 23:59 :00 No [id number] BPH 1 tablet DAILY 1 tablet DAILY (route: oral) Med Classific ation: Genitouri nary Therapy Aspirin Low Dose 81 mg tablet,nora yed release 07-19 00:00: 00 10-23 23:59 :00 No [id number] HEART DISEASE 1 tablet DAILY 1 tablet DAILY (route: oral) Med Classific ation: Hematolog ical Agents cholecalcif mary (vitamin D3) 10 mcg (400 unit) capsule 07-19 00:00: 00 10-23 23:59 :00 No [id number] SUPPLEMENT 1 capsule DAILY 1 capsule DAILY (route: oral) Med Classific ation: Electroly te Balance-N utritiona l Products Eliquis 5 mg tablet 07-19 00:00: 00 10-23 23:59 :00 No [id number] AFIB 1 tablet 2 TIMES DAILY 1 tablet 2 TIMES DAILY (route: oral) Med Classific ation: Hematolog ical Agents ferrous fumarate 324 mg (106 mg iron) tablet 07-19 00:00: 00 10-23 23:59 :00 No [id number] SUPPLEMENT 1 tablet DAILY 1 tablet DAILY (route: oral) Med Classific ation: Electroly te Balance-N utritiona l Products insulin lispro (U-100) 100 unit/mL subcutaneou s pen 07-19 00:00: 00 10-23 23:59 :00 No [id number] DM Per instruc tions BEFORE MEALS AND BEDTIME Per instructio ns BEFORE MEALS AND BEDTIME (route: subcutaneo us) Med Classific ation: Endocrine metoprolol tartrate 50 mg tablet 07-19 00:00: 00 07-25 23:59 :00 No [id number] HTN 1 tablet DAILY 1 tablet DAILY (route: oral) Med Classific ation: Cardiovas cular Therapy Agents One-A-Day Trubiotics 2 billion cell capsule 07-19 00:00: 00 10-23 23:59 :00 No [id number] SUPPLEMENT 1 capsule DAILY 1 capsule DAILY (route: oral) Med Classific ation: Gastroint estinal Therapy Agents metoprolol tartrate 25 mg tablet 07-25 00:00: 00 10-23 23:59 :00 No [id number] HTN 12.5 mg 2 TIMES DAILY 12.5 mg 2 TIMES DAILY (route: oral) Med Classific ation: Cardiovas cular Therapy Agents amoxicillin 875 mg-potassiu m clavulanate 125 mg tablet 10-23 00:00: 00 04-27 23:59 :00 No [id number] ABT 1 tablet 2 TIMES DAILY 1 tablet 2 TIMES DAILY (route: oral) Med Classific ation: Anti-Infe ctive Agents terazosin 5 mg capsule 10-01 00:00: 00 10-28 00:00 :00 No [id number] Per instruc tions Per instructio ns (route: oral) Med Classific ation: Cardiovas cular Therapy Agents Advair Diskus 250 mcg-50 mcg/dose powder for inhalation 10-28 00:00: 00 04-27 23:59 :00 No [id number] COPD 1 inhalat ion 3 TIMES DAILY 1 inhalation 3 TIMES DAILY (route: inhalation ) Med Classific ation: Respirato ry Therapy Agents Eliquis 5 mg tablet 10-28 00:00: 00 04-27 23:59 :00 No [id number] ANTICOAGULA TION 1 tablet 2 TIMES DAILY 1 tablet 2 TIMES DAILY (route: oral) Med Classific ation: Hematolog ical Agents fenofibrate 54 mg tablet 10-28 00:00: 04-27 23:59 :00 No [id number] PROSTATE 1 tablet DAILY 1 tablet DAILY (route: oral) Med Classific ation: Cardiovas cular Therapy Agents insulin glargine (U-100) 100 unit/mL subcutaneou s solution 10-28 00:00: 00 04-27 23:59 :00 No [id number] DM 18 unit 2 TIMES DAILY 18 unit 2 TIMES DAILY (route: subcutaneo us) Med Classific ation: Endocrine iron 325 mg (65 mg iron) tablet 10-28 00:00: 00 04-27 23:59 :00 No [id number] SUPPLEMENT 1 tablet DAILY 1 tablet DAILY (route: oral) Med Classific ation: Electroly te Balance-N utritiona l Products Lipitor 10 mg tablet 10-28 00:00: 00 04-27 23:59 :00 No [id number] CAD 1 tablet DAILY 1 tablet DAILY (route: oral) Med Classific ation: Cardiovas cular Therapy Agents losartan 50 mg tablet 10-28 00:00: 00 04-27 23:59 :00 No [id number] HTN 1 tablet DAILY 1 tablet DAILY (route: oral) Med Classific ation: Cardiovas cular Therapy Agents terazosin 5 mg capsule 10-28 00:00: 00 04-27 23:59 :00 No [id number] SLEEP 1 capsule DAILY 1 capsule DAILY (route: oral) Med Classific ation: Cardiovas cular Therapy Agents Toprol XL 25 mg tablet,exte nded release 10-28 00:00: 00 04-27 23:59 :00 No [id number] AFIB 0.5 tablet DAILY 0.5 tablet DAILY (route: oral) Med Classific ation: Cardiovas cular Therapy Agents Vitamin D3 25 mcg (1,000 unit) capsule 10-28 00:00: 00 04-27 23:59 :00 No [id number] SUPPLEMENT 1 capsule DAILY 1 capsule DAILY (route: oral) Med Classific ation: Electroly te Balance-N utritiona l Products Advair Diskus 250 mcg-50 mcg/dose powder for inhalation 2- 00:00: 00 06-02 23:59 :00 No [id number] SOB 1 inhalat ion 2 TIMES DAILY 1 inhalation 2 TIMES DAILY (route: inhalation ) Med Classific ation: Respirato ry Therapy Agents atorvastati n 40 mg tablet 2- 00:00: 00 06-02 23:59 :00 No [id number] CHOLESTEROL 1 tablet BEDTIME 1 tablet BEDTIME (route: oral) Med Classific ation: Cardiovas cular Therapy Agents D3 DOTS 50 mcg (2,000 unit) tablet 2 00:00: 00 06-02 23:59 :00 No [id number] SUPPLEMENT 1 tablet DAILY 1 tablet DAILY (route: oral) Med Classific ation: Electroly te Balance-N utritiona l Products Eliquis 2.5 mg tablet 2 00:00: 00 06-02 23:59 :00 No [id number] ATRIAL FIB 1 tablet 2 TIMES DAILY 1 tablet 2 TIMES DAILY (route: oral) Med Classific ation: Hematolog ical Agents fenofibrate 54 mg tablet 2 00:00: 00 06-02 23:59 :00 No [id number] CHOLESTEROL 2 tablet DAILY 2 tablet DAILY (route: oral) Med Classific ation: Cardiovas cular Therapy Agents ferrous sulfate 325 mg (65 mg iron) tablet 2 00:00: 00 06-02 23:59 :00 No [id number] ANEMIA 1 tablet DAILY 1 tablet DAILY (route: oral) Med Classific ation: Electroly te Balance-N utritiona l Products finasteride 5 mg tablet 2- 00:00: 00 06-02 23:59 :00 No [id number] BPH 1 tablet DAILY 1 tablet DAILY (route: oral) Med Classific ation: Genitouri nary Therapy insulin glargine (U-100) 100 unit/mL (3 mL) subcutaneou s pen 2- 00:00: 00 06-02 23:59 :00 No [id number] DM 18 unit 2 TIMES DAILY 18 unit 2 TIMES DAILY ([facility] Med Classific ation: Endocrine losartan 50 mg tablet 2-07 00:00: 00 06-02 23:59 :00 No [id number] HTN 50 mg DAILY 50 mg DAILY (route: oral) Med Classific ation: Cardiovas cular Therapy Agents metoprolol succinate ER 25 mg tablet,exte nded release 24 hr 2- 00:00: 00 06-02 23:59 :00 No [id number] RATE CONTROL,BP .5 tablet 2 TIMES DAILY .5 tablet 2 TIMES DAILY (route: oral) Med Classific ation: Cardiovas cular Therapy Agents Novolin N FlexPen 100 unit/mL (3 mL) [facility]- 00:00: 00 06-02 23:59 :00 No [id number] DM 16 unit DAILY 16 unit DAILY [facility] Med Classific ation: Endocrine Novolog FlexPen U-100 Insulin aspart 100 unit/mL (3 mL) subcutane s 2- 00:00: 00 06-02 23:59 :00 No [id number] DM 9 unit DAILY 9 unit DAILY ([facility] Med Classific ation: Endocrine Novolog FlexPen U-100 Insulin aspart 100 unit/mL (3 mL) subcutane s 2-07 00:00: 00 06-02 23:59 :00 No [id number] DM 11 unit DAILY 11 unit DAILY ([facility] Med Classific ation: Endocrine terazosin 5 mg capsule 2-07 00:00: 00 06-02 23:59 :00 No [id number] BPH 1 capsule BEDTIME 1 capsule BEDTIME (route: oral) Med Classific ation: Cardiovas cular Therapy Agents carboxymeth ylcellulose sodium 0.5 % eye drops 2-07 00:00: 00 06-02 23:59 :00 No [id number] DRY EYES 1 drops 2 TIMES DAILY 1 drops 2 TIMES DAILY (route: ophthalmic (eye)) Med Classific ation: Ophthalmi c Agents ICaps AREDS 4,296 mcg-226 mg-90 mg capsule 2- 00:00: 00 06-02 23:59 :00 No [id number] EYE HEALTH 1 capsule DAILY 1 capsule DAILY (route: oral) Med Classific ation: Electroly te Balance-N utritiona l Products Jardiance 25 mg tablet 2- 00:00: 00 05-12 23:59 :00 No [id number] DM 1 tablet DAILY 1 tablet DAILY (route: oral) Med Classific ation: Endocrine Lasix 40 mg tablet 16 00:00: 00 06-02 23:59 :00 No [id number] CHF 1 tablet DAILY 1 tablet DAILY (route: oral) Med Classific ation: Cardiovas cular Therapy Agents Jardiance 10 mg tablet 05-12 00:00: 00 06-02 23:59 :00 No [id number] DIABETES 0.5 tablet DAILY 0.5 tablet DAILY (route: oral) Med Classific ation: Endocrine fenofibrate 54 mg tablet 05-19 00:00: 00 06-10 00:00 :00 No [id number] Per instruc tions Per instructio ns (route: oral) Med Classific ation: Cardiovas cular Therapy Agents acetaminoph en 500 mg tablet 06-10 00:00: 00 Yes [id number] PAIN 2 tablet EVERY 8 HOURS 2 tablet EVERY 8 HOURS (route: oral) Med Classific ation: Analgesic , Anti-infl ammatory or Antipyret ic Afrin (oxymetazol ine) 0.05 % nasal spray 06-10 00:00: 00 Yes [id number] NOSEBLEEDS 2 spray EVERY 4 HOURS 2 spray EVERY 4 HOURS (route: nasal) Med Classific ation: Respirato ry Therapy Agents albuterol sulfate HFA 90 mcg/actuati on aerosol inhaler 06-10 00:00: 00 Yes [id number] SHORTNESS OF BREATH 2 puff EVERY 6 HOURS 2 puff EVERY 6 HOURS (route: inhalation ) Med Classific ation: Respirato ry Therapy Agents amiodarone 200 mg tablet 06-10 00:00: 00 Yes [id number] IRREGULAR HEART BEAT 1 tablet DAILY 1 tablet DAILY (route: oral) Med Classific ation: Cardiovas cular Therapy Agents aspirin 81 mg tablet,nora yed release 06-10 00:00: 00 Yes [id number] HIGH LIPIDS 1 tablet DAILY 1 tablet DAILY (route: oral) Med Classific ation: Hematolog ical Agents betamethaso ne dipropionat e 0.05 % topical cream 06-10 00:00: 00 Yes [id number] PSORIASIS FLARE 3 inch 2 TIMES DAILY 3 inch 2 TIMES DAILY (route: topical) Med Classific ation: Dermatolo gical Eliquis 2.5 mg tablet 06-10 00:00: 00 Yes [id number] IRREGULAR HEART BEAT 1 tablet EVERY 12 HOURS 1 tablet EVERY 12 HOURS (route: oral) Med Classific ation: Hematolog ical Agents fenofibrate 54 mg tablet 06-10 00:00: 00 Yes [id number] HIGH LIPIDS 2 tablet EVERY AM 2 tablet EVERY AM (route: oral) Med Classific ation: Cardiovas cular Therapy Agents ferrous sulfate 325 mg (65 mg iron) tablet 06-10 00:00: 00 Yes [id number] ANEMIA 1 tablet EVERY 48 HOURS 1 tablet EVERY 48 HOURS (route: oral) Med Classific ation: Electroly te Balance-N utritiona l Products finasteride 5 mg tablet 06-10 00:00: 00 Yes [id number] ENLARGED PROSTATE 1 tablet BEDTIME 1 tablet BEDTIME (route: oral) Med Classific ation: Genitouri nary Therapy Jardiance 25 mg tablet 06-10 00:00: 00 Yes [id number] DIABETES 1 tablet DAILY 1 tablet DAILY (route: oral) Med Classific ation: Endocrine Lantus Solostar U-100 Insulin 100 unit/mL (3 mL) subcutane s pen 06-10 00:00: 00 Yes [id number] DIABETES 8 unit 2 TIMES DAILY 8 unit 2 TIMES DAILY (route: subcutaneo us) Med Classific ation: Endocrine metoprolol succinate ER 25 mg tablet,exte nded release 24 hr 06-10 00:00: 00 Yes [id number] IRREGULAR HEART BEAT 0.5 tablet 2 TIMES DAILY 0.5 tablet 2 TIMES DAILY (route: oral) Med Classific ation: Cardiovas cular Therapy Agents Miralax 17 gram/dose oral powder 06-10 00:00: 00 Yes [id number] CONSTIPATIO N 17 gram DAILY 17 gram DAILY (route: oral) Med Classific ation: Gastroint estinal Therapy Agents Novolog FlexPen U-100 Insulin aspart 100 unit/mL (3 mL) subcutaneou s 06-10 00:00: 00 Yes [id number] DIABETES 2 unit BEFORE DINNER 2 unit BEFORE DINNER ([facility]: [facility] Med Classific ation: Endocrine Novolog FlexPen U-100 Insulin aspart 100 unit/mL (3 mL) [facility] 06-10 00:00: 00 Yes [id number] DIABETES 4 unit BEFORE LUNCH 4 unit BEFORE LUNCH (route: [facility] Med Classific ation: Endocrine Novolog FlexPen U-100 Insulin aspart 100 unit[facility]mL (3 mL) [facility] 06-10 00:00: 00 Yes [id number] DIABETES 4 unit BEFORE BREAKFAST 4 unit BEFORE BREAKFAST (route: [facility] Med Classific ation: Endocrine oxycodone 5 mg tablet 06-10 00:00: 00 Yes [id number] SEVERE PAIN 1 tablet EVERY 4 HOURS 1 tablet EVERY 4 HOURS (route: oral) Med Classific ation: Analgesic , Anti-infl ammatory or Antipyret ic terazosin 5 mg capsule 06-10 00:00: 00 Yes [id number] ENLARGED PROSTATE 1 capsule BEDTIME 1 capsule BEDTIME (route: oral) Med Classific ation: Cardiovas cular Therapy Agents Wixela Inhub 250 mcg-50 mcg/dose powder for inhalation 06-10 00:00: 00 Yes [id number] COPD 1 inhalat ion DAILY 1 inhalation DAILY (route: inhalation ) Med Classific ation: Respirato ry Therapy Agents amoxicillin 875 mg-potassiu m clavulanate 125 mg tablet 06-16 00:00: 00 06-26 23:59 :00 No [id number] INFE 1 tablet 2 TIMES DAILY 1 tablet 2 TIMES DAILY (route: oral) Med Classific ation: Anti-Infe ctive Agents BETAMETHASO NE DIPROPIONAT E TOPICAL 2016-03 0 00:00: 00 04-03 09:59 :21 No 0.05 % 0.05 % (route: ) Med Classific ation: DERMATOLO GICAL TAMSULOSIN ORAL 8 00:00: 00 04-03 10:04 :12 No 0.4 mg 0.4 mg (route: ) Med Classific ation: GENITOURI NARY THERAPY COUMADIN ORAL 2016-03 00:00: 00 04-03 00:00 :00 No 5 [...] CARDIOVAS CULAR THERAPY AGENTS GLIPIZIDE ORAL 2016-03 00:00: 00 04-10 00:00 :00 No 10 [...] Observation Time Observation Value Commen ts Temperature 2024-08-25 09:36:00.000 97.3 [degF] Temperature 2024-08-20 08:52:00.000 97.9 [degF] Temperature 2024-08-18 09:02:00.000 98.1 [degF] Temperature 2024-08-11 16:02:00.000 97.9 [degF] Temperature 2024-08-09 17:34:00.000 97.8 [degF] Pulse 2024-08-25 09:36:00.000 70 /min Pulse 2024-08-20 08:52:00.000 80 /min Pulse 2024-08-18 09:02:00.000 86 /min Pulse 2024-08-11 16:02:00.000 67 /min Pulse 2024-08-09 17:34:00.000 78 /min O2 Saturation (%) 2024-08-25 09:36:00.000 98 % O2 Saturation (%) 2024-08-20 08:52:00.000 97 % O2 Saturation (%) 2024-08-18 09:02:00.000 96 % O2 Saturation (%) 2024-08-11 16:02:00.000 97 % O2 Saturation (%) 2024-08-09 17:34:00.000 98 % Respirations 2024-08-25 09:36:00.000 18 /min Respirations 2024-08-20 08:52:00.000 18 /min Respirations 2024-08-18 09:02:00.000 18 /min Respirations 2024-08-11 16:02:00.000 18 /min Respirations 2024-08-09 17:34:00.000 18 /min Weight (lbs) 2024-08-25 09:36:00.000 173 [lb_av] Weight (lbs) 2024-08-18 09:02:00.000 173 [lb_av] Weight (lbs) 2024-08-09 17:34:00.000 171.8 [lb_av] Systolic Blood Pressure 2024-08-25 09:36:00.000 118 mm [Hg] Systolic Blood Pressure 2024-08-20 08:52:00.000 120 mm [Hg] Systolic Blood Pressure 2024-08-18 09:02:00.000 120 mm [Hg] Systolic Blood Pressure 2024-08-11 16:02:00.000 120 mm [Hg] Systolic Blood Pressure 2024-08-09 17:34:00.000 126 mm [Hg] Diastolic Blood Pressure 2024-08-25 09:36:00.000 60 mm [Hg] Diastolic Blood Pressure 2024-08-20 08:52:00.000 52 mm [Hg] Diastolic Blood Pressure 2024-08-18 09:02:00.000 58 mm [Hg] Diastolic Blood Pressure 2024-08-11 16:02:00.000 52 mm [Hg] Diastolic Blood Pressure 2024-08-09 17:34:00.000 62 mm [Hg] Plan of Treatment Planned Activity Planned Date Details Comments Future Scheduled Test RESPIRATOR Y SYSTEM MANAGEMENT; RN TO ASSESS AND TEACH, BOOK PACKER/PEANUT VENDOR TO OBSERVE AND TEACH RELATED TO ALTERED RESPIRATORY STATUS TO MINIMIZE COMPLICATIONS AND REDUCE HOSPITALIZATION. [code = RESPIRATORY SYSTEM MANAGEMENT; RN TO ASSESS AND TEACH, BOOK PACKER/PEANUT VENDOR TO OBSERVE AND TEACH RELATED TO ALTERED RESPIRATORY STATUS TO MINIMIZE COMPLICATIONS AND REDUCE HOSPITALIZATION.] Future Scheduled Test COPD MANAG EMENT; RN TO ASSESS AND TEACH, BOOK PACKER/PEANUT VENDOR TO OBSERVE AND TEACH SIGNS/SYMPTOMS OF COPD EXACERBATION AND PROVIDE EARLY INTERVENTIONS TO MINIMIZE RISK OF HOSPITALIZATION. RN/BOOK PACKER/PEANUT VENDOR TO INSTRUCT ON SELF-CARE MANAGEMENT INCLUDING BREATHING TECHNIQUES, AIRWAY CLEARANCE, AND PROPER USE OF COPD MEDICATIONS. RN TO ASSESS AND TEACH, BOOK PACKER/PEANUT VENDOR TO OBSERVE AND TEACH PATIENT/CAREGIVER ABILITY TO MONITOR AND RECORD VITAL SIGNS INCLUDING PULSE OXIMETRY AND BLOOD PRESSURE. PULSE OXIMETER AND BP MONITOR TO BE PROVIDED IF NEEDED [code = COPD MANAGEMENT; RN TO ASSESS AND TEACH, BOOK PACKER/PEANUT VENDOR TO OBSERVE AND TEACH SIGNS/SYMPTOMS OF COPD EXACERBATION AND PROVIDE EARLY INTERVENTIONS TO MINIMIZE RISK OF HOSPITALIZATION. RN/BOOK PACKER/PEANUT VENDOR TO INSTRUCT ON SELF-CARE MANAGEMENT INCLUDING BREATHING TECHNIQUES, AIRWAY CLEARANCE, AND PROPER USE OF COPD MEDICATIONS. RN TO ASSESS AND TEACH, BOOK PACKER/PEANUT VENDOR TO OBSERVE AND TEACH PATIENT/CAREGIVER ABILITY TO MONITOR AND RECORD VITAL SIGNS INCLUDING PULSE OXIMETRY AND BLOOD PRESSURE. PULSE OXIMETER AND BP MONITOR TO BE PROVIDED IF NEEDED ] Future Scheduled Test FALL REDUC TION MANAGEMENT; RN TO ASSESS AND OBSERVE, BOOK PACKER/PEANUT VENDOR TO OBSERVE FALL RISK FACTORS AND EDUCATE PATIENT/CAREGIVER ON STRATEGIES TO MINIMIZE THE RISK OF FALLING. [code = FALL REDUCTION MANAGEMENT; RN TO ASSESS AND OBSERVE, BOOK PACKER/PEANUT VENDOR TO OBSERVE FALL RISK FACTORS AND EDUCATE PATIENT/CAREGIVER ON STRATEGIES TO MINIMIZE THE RISK OF FALLING.] Future Scheduled Test RN TO OBSE RVE, ASSESS, EVALUATE, AND DEVELOP AN INDIVIDUALIZED PLAN OF CARE. AGENCY MAY ACCEPT ORDERS FROM CONSULTING PHYSICIANS LISSET WALDRON RN TO OBSERVE AND ASSESS, BOOK PACKER/PEANUT VENDOR TO OBSERVE FOR RISK FOR FALLS AND INSTRUCT IN FALL PREVENTION, HOME SAFETY, MEDICATION MANAGEMENT, INFECTION PREVENTION, AND NUTRITION MANAGEMENT. RN/BOOK PACKER/PEANUT VENDOR NURSE MAY PERFORM O2 SATURATION LEVEL ON ADMISSION AND PRN FOR FOR RN TO ASSESS/BOOK PACKER TO OBSERVE PATIENT, WITH NOTIFICATION TO THE PHYSICIAN IF SATURATION IS 90% IN THE ABSENCE OF MORE SPECIFIC PARAMETERS FROM THE PHYSICIAN. AGENCY MAY PERFORM A RESUMPTION OF CARE VISIT FOLLOWING ANY HOSPITAL ADMISSION. RN/BOOK PACKER/PEANUT VENDOR TO MONITOR CO-MORBID CONDITIONS LISTED ON THE PLAN OF CARE AND ANY NEW CONDITIONS THAT PRESENT THEMSELVES DURING THIS EPISODE TO IDENTIFY CHANGES AND INTERVENE TO MINIMIZE COMPLICATIONS. [code = RN TO OBSERVE, ASSESS, EVALUATE, AND DEVELOP AN INDIVIDUALIZED PLAN OF CARE. AGENCY MAY ACCEPT ORDERS FROM CONSULTING PHYSICIANS LISSET WALDRON RN TO OBSERVE AND ASSESS, BOOK PACKER/PEANUT VENDOR TO OBSERVE FOR RISK FOR FALLS AND INSTRUCT IN FALL PREVENTION, HOME SAFETY, MEDICATION MANAGEMENT, INFECTION PREVENTION, AND NUTRITION MANAGEMENT. RN/BOOK PACKER/PEANUT VENDOR NURSE MAY PERFORM O2 SATURATION LEVEL ON ADMISSION AND PRN FOR FOR RN TO ASSESS/BOOK PACKER TO OBSERVE PATIENT, WITH NOTIFICATION TO THE PHYSICIAN IF SATURATION IS 90% IN THE ABSENCE OF MORE SPECIFIC PARAMETERS FROM THE PHYSICIAN. AGENCY MAY PERFORM A RESUMPTION OF CARE VISIT FOLLOWING ANY HOSPITAL ADMISSION. RN/BOOK PACKER/PEANUT VENDOR TO MONITOR CO-MORBID CONDITIONS LISTED ON THE PLAN OF CARE AND ANY NEW CONDITIONS THAT PRESENT THEMSELVES DURING THIS EPISODE TO IDENTIFY CHANGES AND INTERVENE TO MINIMIZE COMPLICATIONS.] Future Scheduled Test PAIN MANAG EMENT; RN TO ASSESS AND TEACH, PEANUT VENDOR/BOOK PACKER TO OBSERVE AND TEACH AND PROVIDE EDUCATION ON PAIN MANAGEMENT TECHNIQUES. [code = PAIN MANAGEMENT; RN TO ASSESS AND TEACH, PEANUT VENDOR/BOOK PACKER TO OBSERVE AND TEACH AND PROVIDE EDUCATION ON PAIN MANAGEMENT TECHNIQUES.] Future Scheduled Test LLE NON HE ALING SURGICAL WOUND: SN TO CLEANSE WITH NS, PAT DRY, BARRIER CREAM TO PERIWOUND, SILVADENE TO WOUND BED COVERED WITH DCD. SECURE WITH THERESE. 3XWEEK [code = LLE NON HEALING SURGICAL WOUND: SN TO CLEANSE WITH NS, PAT DRY, BARRIER CREAM TO PERIWOUND, SILVADENE TO WOUND BED COVERED WITH DCD. SECURE WITH THERESE. 3XWEEK] Future Scheduled Test PRN VISITS ; NUMBER OF RN/BOOK PACKER/PEANUT VENDOR VISITS: 3 RN/BOOK PACKER/PEANUT VENDOR TO PERFORM: WOUND ASSESSMENT FOR THE FOLLOWING REASONS: COMPLICATIONS RT WOUND CARE [code = PRN VISITS; NUMBER OF RN/BOOK PACKER/PEANUT VENDOR VISITS: 3 RN/BOOK PACKER/PEANUT VENDOR TO PERFORM: WOUND ASSESSMENT FOR THE FOLLOWING REASONS: COMPLICATIONS RT WOUND CARE] Future Scheduled Test RISK FOR H OSPITALIZATION; RN TO ASSESS/TEACH, PEANUT VENDOR/BOOK PACKER TO OBSERVE/TEACH PATIENT/CAREGIVER ON RISK FOR HOSPITALIZATION/EMERGENCY ROOM VISITS, TEACH SIGNS AND SYMPTOMS THAT PUT PATIENT AT RISK, WHEN TO NOTIFY NURSE/PHYSICIAN OF COMPLICATIONS/DECLINE, AND WHEN TO CALL 911. [code = RISK FOR HOSPITALIZATION; RN TO ASSESS/TEACH, PEANUT VENDOR/BOOK PACKER TO OBSERVE/TEACH PATIENT/CAREGIVER ON RISK FOR HOSPITALIZATION/EMERGENCY ROOM VISITS, TEACH SIGNS AND SYMPTOMS THAT PUT PATIENT AT RISK, WHEN TO NOTIFY NURSE/PHYSICIAN OF COMPLICATIONS/DECLINE, AND WHEN TO CALL 911.] Future Scheduled Test CARDIOVASC ULAR SYSTEM; RN TO ASSESS/TEACH, BOOK PACKER/PEANUT VENDOR TO OBSERVE/TEACH RELATED TO ALTERED CARDIOVASCULAR STATUS TO MINIMIZE COMPLICATIONS AND REDUCE HOSPITALIZATION. [code = CARDIOVASCULAR SYSTEM; RN TO ASSESS/TEACH, BOOK PACKER/PEANUT VENDOR TO OBSERVE/TEACH RELATED TO ALTERED CARDIOVASCULAR STATUS TO MINIMIZE COMPLICATIONS AND REDUCE HOSPITALIZATION.] Future Scheduled Test HEART FAIL URE; RN TO ASSESS/TEACH, BOOK PACKER/PEANUT VENDOR TO OBSERVE/TEACH CARDIOPULMONARY SYSTEM TO IDENTIFY SIGNS [...] MEASURE ABDOMINAL GIRTH IF UNABLE TO WEIGH. SCALES AND BP MONITOR TO BE PROVIDED IF NEEDED. [code = HEART FAILURE; RN TO ASSESS/TEACH, BOOK PACKER/PEANUT VENDOR TO OBSERVE/TEACH CARDIOPULMONARY SYSTEM TO IDENTIFY SIGNS [...] MEASURE ABDOMINAL GIRTH IF UNABLE TO WEIGH. SCALES AND BP MONITOR TO BE PROVIDED IF NEEDED.] Future Scheduled Test SKIN INTEG RITY RN TO ASSESS AND TEACH, BOOK PACKER/PEANUT VENDOR TO OBSERVE AND TEACH INTEGUMENTARY STATUS TO IDENTIFY CHANGES AND INTERVENE TO MINIMIZE COMPLICATIONS. PROVIDE SKILLED TEACHING OF GENERAL WOUND AND SKIN CARE AND PREVENTION RELATED TO POTENTIAL FOR OR ACTUAL ALTERED SKIN INTEGRITY [code = SKIN INTEGRITY RN TO ASSESS AND TEACH, BOOK PACKER/PEANUT VENDOR TO OBSERVE AND TEACH INTEGUMENTARY STATUS TO IDENTIFY CHANGES AND INTERVENE TO MINIMIZE COMPLICATIONS. PROVIDE SKILLED TEACHING OF GENERAL WOUND AND SKIN CARE AND PREVENTION RELATED TO POTENTIAL FOR OR ACTUAL ALTERED SKIN INTEGRITY ] Future Scheduled Test MEDICATION MANAGEMENT; RN/BOOK PACKER/PEANUT VENDOR TO REVIEW MEDICATIONS FOR INTERACTIONS, EFFECTIVENESS OF DRUG THERAPY, AND SIGNS/SYMPTOMS OF ADVERSE REACTIONS. MAY INSTRUCT AND REINFORCE MEDICATION TEACHING RELATED TO THE USE OF MEDICATIONS, DOSAGE, FREQUENCY, PURPOSE, SIDE EFFECTS, AND TO REPORT COMPLICATIONS. [code = MEDICATION MANAGEMENT; RN/BOOK PACKER/PEANUT VENDOR TO REVIEW MEDICATIONS FOR INTERACTIONS, EFFECTIVENESS OF DRUG THERAPY, AND SIGNS/SYMPTOMS OF ADVERSE REACTIONS. MAY INSTRUCT AND REINFORCE MEDICATION TEACHING RELATED TO THE USE OF MEDICATIONS, DOSAGE, FREQUENCY, PURPOSE, SIDE EFFECTS, AND TO REPORT COMPLICATIONS.] Goal 2024-08-04 Patient Goal - H EAL INCISION, BACK TO NORMAL Goal Patient Goal - H EAL INCISION, BACK TO NORMAL.. Goal Provider Goal - PATIENT / CAREGIVER WILL VERBALIZE/DEMONSTRATE UNDERSTANDING OF MEASURES TO MANAGE ALTERED RESPIRATORY STATUS BY END OF EPISODE. Goal Provider Goal - PATIENT / CAREGIVER WILL VERBALIZE/DEMONSTRATE AN ABILITY TO ADHERE TO SELF-MANAGEMENT OF COPD TO MINIMIZE COMPLICATIONS AND AVOID HOSPITALIZATION BY END OF EPISODE. Goal Provider Goal - PATIENT/CAREGIVER WILL VERBALIZE/DEMONSTRATE UNDERSTANDING OF FALL RISK FACTORS AND IMPLEMENT STRATEGIES TO MINIMIZE FALL RISK. PATIENT/CAREGIVER WILL VERBALIZE/DEMONSTRATE AN ABILITY TO ADHERE TO FALL REDUCTION SELF-MANAGEMENT AND LIFE-STYLE CHANGES BY 10-07-24 Goal Provider Goal - A PLAN OF CARE WILL BE ESTABLISHED THAT MEETS THE PATIENTS NEEDS. PATIENT WILL DEMONSTRATE OXYGEN SATURATION WITHIN NORMAL LIMITS OR PATIENTS OPTIMAL LEVEL ESTABLISHED BY THE PHYSICIAN THROUGHOUT CARE. CHANGES TO CO-MORBID CONDITIONS AND ANY NEW CONDITIONS WILL BE IDENTIFIED AND REPORTED TO THE PHYSICIAN. Goal Provider Goal - PATIENT / CAREGIVER WILL VERBALIZE / DEMONSTRATE UNDERSTANDING OF PAIN CONTROL MEASURES BY 10-07-24 Goal Provider Goal - PATIENT / CAREGIVER WILL VERBALIZE/DEMONSTRATE ABILITY TO PERFORM WOUND CARE. WOUND STATUS WILL IMPROVE EVIDENCED BY A DECREASE IN SIZE, DRAINAGE, ABSENCE OF INFECTION, AND DECREASED PAIN BY 10-07-24 Goal Provider Goal - Goal Provider Goal - PATIENT/CAREGIVER WILL VERBALIZE UNDERSTANDING OF SIGNS AND SYMPTOMS THAT PUT THE PATIENT AT RISK FOR HOSPITALIZATION /EMERGENCY ROOM VISITS, WHEN TO NOTIFY NURSE/PHYSICIAN OF COMPLICATIONS/DECLINE AND WHEN TO CALL 911. Goal Provider Goal - PATIENT / CAREGIVER WILL VERBALIZE/DEMONSTRATE UNDERSTANDING OF MEASURES TO MANAGE ALTERED CARDIOVASCULAR STATUS BY 10-07-24 Goal Provider Goal - PATIENT / CAREGIVER WILL VERBALIZE/DEMONSTRATE AN ABILITY TO ADHERE TO SELF-MANAGEMENT OF HF TO MINIMIZE COMPLICATIONS AND AVOID HOSPITALIZATION BY END OF EPISODE. Goal Provider Goal - CHANGES IN SKIN INTEGRITY STATUS WILL BE IDENTIFIED AND REPORTED TO THE PHYSICIAN FOR PROMPT INTERVENTION. PATIENT / CAREGIVER WILL VERBALIZE/DEMONSTRATE ADEQUATE KNOWLEDGE OF INTEGUMENTARY STATUS AND APPROPRIATE MEASURES TO PROMOTE SKIN INTEGRITY AND PREVENT INJURY BY 10-07-24 Goal Provider Goal - PATIENT/CAREGIVER TO VERBALIZE, AND CONSISTENTLY DEMONSTRATE EFFECTIVE, SAFE MANAGEMENT OF MEDICATION INCLUDING KNOWLEDGE OF EFFECTIVENESS, POTENTIAL SIDE EFFECTS AND DRUG REACTIONS AND WHEN TO CONTACT THE APPROPRIATE CARE PROVIDER. PATIENT/CAREGIVER WILL BE ABLE TO VERBALIZE UNDERSTANDING OF MEDICATION REGIMEN AND ACCURATELY TAKE MEDICATIONS PRESCRIBED WITHOUT ADVERSE EFFECTS BY 10-07-24 Encounters Start Date/Time End Date/Time Encounter Type Admission Type Attending [facility] Care Department Encounter ID Discharge Date Discharge Status Discharge Condition Discharge Reason Percent Goals Met 2024-08-09 00:00:00 2024-10-07 00:00:00 [facility] [id number] 57.69
== END 2024-08-26 15:20 | disposition home or self-care (01) ==
LOC: HO.LAB 15:19
PROVIDERS: PCP Physician Assistant; Visit Provider Internal Medicine
DX: N18.32 Chronic kidney disease, stage 3b (principal); N17.9 Acute kidney failure, unspecified
CPT/HCPCS: 36415; 80048; 81001; 82043; 82570; 83735; 83970; 84100; 84156; 85025

== ENCOUNTER 2024-09-28 14:07 | Outpatient (AMB) | payer MEDICARE, OTHER, SELFPAY ==
--- OUTSIDE RECORDS SUMMARY | 2023-10-02 06:30 | XMS_ITS ---
Author Organization Dean Parsons III, MD Address [address] [address] Care Team Providers Care Third Miller Name Role Phone Donte Powell MD Primary Care Provider Dean Hopson Unavailable [phone] Allergies Allergen (clinical drug ingredient) Drug/Non Drug Allergy documented on EMR Reaction Allergy Type Onset Date Status almond allergenic extract Dorrance (Diagnostic) Unknown Drug Allergy Active Shellfish (FN) [...] Date Provider Diagnosis Dean Parsons III, MD [address] [place] [address] DR SALAZAR, [place] [id number] 10/02/2023 Dean Parsons Lymphoma C85.90 ; Overweight [...] relapse. The nodular lesion on the right confucianism is in an area of previous disease [...] Details Follow Up: 6 Months, Reason: OV Provider Name:Dean Parsons, 11/02/2024 02:30:00 PM, [address] [place] [address] , [place] [address], [place], [address], Progress Notes * Joel LOGANB:11/23 (82 yo M)Acc No.[id number]:10/02/2023 Progress Notes Patient: Joel De Dios Provider: Kenia Parsons MD :1940 A ge:82 Y S ex:Male Date:10/02/2023 Address:[address] [place], [place] [id number] Pcp:Donte Powell MD Subjective: * Chief Complaints: * L ymphoma in remissionMultiple cutaneous squamous cell carcinomaAortic stenosisHypertensionPeripheral arterial diseaseAtrial fibrillationAnticoagulation * HPI: C OVID-19 Screening: He returns for a scheduled visit to monitor his and K T cell nasal lymphoma in remission. No sign of the disease was found today. He recently spent several nights at the [facility] with uncontrolled atrial fibrillation and aortic stenosis. [...] biopsy and aspirate autologous stem cell transplant [facility] left femoral popliteal bypass surgery [...] dditional Findings: Tobacco Non-User E x-cigarette smoker Keyla marti has been to [place] for 22 years years and is retired. He was born in [place], [place]. He has 4 biological children. 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 * Medications: T [...] relapse. The nodular lesion on the right confucianism is in an area of previous disease [...] true * Provider: Kenia Parsons MD Date: 10/02/2023 Generated for Pj manning/Bran/Jaronitting on: 09/28/2024 02:56 PM EDT History and Physical Notes * HPI (History of Present Illness) Category Sub-Category Detail Notes COVID-19 Screening Questions Have you had any new onset fever, chills, cough, congestion, sore throat, shortness of breath, muscle aches?: No Have you been exposed to the virus withi n the last 10 days?: No Have you travelled internationally in e last 10 days?: No Have you been [...]
--- NOTE | 2024-09-28 14:08 | MHC.PC.OV ---
Vital Signs 09/28/24 14:26 Height 5 ft 6 in Weight 74.843 kg BMI 26.6 BP 116/48 L Blood Pressure Location Rt brachial Position Sitting Respiration 16 Pulse 80 Pulse Source Pulse Oximeter Temp 97.7 F Temp Source Temporal Artery Scan Pulse Oximetry (%) 96 Oxygen Delivery Method Room Air Intake Visit Reasons: [facility] f/u Pumper Gauger Apprentice Required: No Accompanied by: Self / Same As Patient Allergies No Known Allergies Allergy (Verified 09/28/24 14:09) Medication List - Last Reconciled 09/28/24 by DANIELLE Graham amiodarone 200 mg PO BID apixaban (Eliquis) 2.5 mg PO BID atorvastatin 40 mg PO DAILY azithromycin (Zithromax TRI-KHURRAM) 500 mg PO DAILY 3 days benzonatate 100 mg PO BID PRN betamethasone dipropionate 0.05% topical empagliflozin (Jardiance) mg PO finasteride 5 mg PO DAILY fluticasone propion-salmeterol 250-50 mcg/dose (Advair Diskus) 1 ea inhalation BID furosemide 40 mg PO DAILY insulin aspart U-100 (Novolog FlexPen U-100 Insulin aspart) subcut insulin glargine (Lantus Solostar U-100 Insulin) 18 units subcut BID insulin syringe-needle U-100 (BD Insulin Syringe Ultra-Fine) As directed lorazepam 0.5 mg PO BEDTIME metoprolol tartrate 12.5 mg PO BID prednisone 10 mg PO DIRECTED silver sulfadiazine 1% appl topical terazosin 5 mg PO BEDTIME 90 days HPI HPI Comments History of Present Illness Details 83-year-old male with history of hypertension, type 2 diabetes, hyperlipidemia, paroxysmal atrial fibrillation, CKD stage 3, lymphoma s/p bone marrow transplant, and BPH presents to the office for hospital discharge follow up. He was admitted to [facility] from 09/18-09/21 after presenting to the ER with shortness of breath found to have CHF exacerbation and COPD exacerbation likely triggered by parainfluenza virus. Last EF on echo 09/19 showed reduced LV systolic function with EF 37% and moderate global hypokinesis which was improved from prior studies. He had a markedly elevated BNP of 11,980. He presented with leukopenia 2.2 likely due to viral suppression with improvement to 6 on day of discharge. He was initially diuresed with IV Lasix which was discontinued due to elevated creatinine. After several day drug holiday, creatinine did improve to baseline. For COPD exacerbation, he was treated with IV steroids and transitioned to oral prednisone. Chest x-ray did not reveal any evidence of pneumonia but was treated with the doxycycline for any superimposed bacterial infection. He did initially have low-grade fever which resolved. The remainder of vital signs remained normal throughout admission. There was no evidence of sepsis. He was discharged home with 5 days of prednisone as well as doxycycline which he completed as prescribed. Despite this, he continues with aggressive dry cough but no shortness of breath or wheezing. Denies any fever. Reports he does not have a cough at baseline with his COPD. States he is feeling slightly better but does continue to feel weak as well. ROS: General: No fevers, malaise, unintentional weight loss. see hpi HEENT: No blurred vision, diplopia. No sore throat, nasal congestion, rhinorrhea, sinus pain, ear pain Cardiovascular: No chest pain, palpitations, or leg edema Respiratory: see hpi GI: No abdominal pain, nausea, vomiting, diarrhea, constipation, melena, hematochezia : No dysuria, hematuria, increased urinary frequency, decreased urinary output MSK: No myalgia, back pain Neuro: No headaches, weakness, paresthesias Skin: No rashes or lesions EXAM: Constitutional - Awake and Alert, No apparent distress Eyes - PERRL Cardiovascular - S1S2, RRR, No edema Respiratory - Normal lung expansion, Normal respiratory effort, No respiratory distress, scattered expiratory wheezes bilaterally Extremities - no calf tenderness bilaterally, no swelling Skin - Warm/Dry Neurological - Alert & oriented x3 Psychological - Appropriate affect [facility] Medical History (Updated 09/29/24 @ 13:57 by DANIELLE Graham) Aortic stenosis Anemia of chronic disease CKD (chronic kidney disease) PAD (peripheral artery disease) COPD (chronic obstructive pulmonary disease) HFrEF (heart failure with reduced ejection fraction) NK/T-cell lymphoma Atrial fibrillation Hyperlipidemia Diabetes mellitus HTN (hypertension) Rotator cuff tendonitis Surgical History (Updated 09/29/24 @ 13:54 by DANIELLE Graham) S/P bone marrow transplant History of colonoscopy (~01/19/18) History of surgery Questionnaire PHQ-9 Over the last 2 weeks, how often have you been bothered by any of the following problems? 1. Little interest or pleasure in doing things: not at all 2. Feeling down, depressed, or hopeless: not at all 3. Trouble falling or staying asleep, or sleeping too much: nearly every day 4. Feeling tired or having little energy: nearly every day 5. Poor appetite or overeating: not at all 6. Feeling bad about yourself - or that you are a failure or have let yourself or your family down: not at all 7. Trouble concentrating on things, such as reading the newspaper or watching television: not at all 8. Moving or speaking so slowly that other people could have noticed. Or the opposite - being so fidgety or restless that you have been moving around a lot more than usual: not at all 9. Thoughts that you would be better off or of hurting yourself in some way: not at all Total score: 6 Depression Screening Interpretation: Negative Depression Screening Done: Yes 10114 - PHQ-9 Billing: Yes Source: Developed by Drs. Dean Dent, Sara Thomas, Ricky Alonso and colleagues, with an educational brody from [employer]. Thrive Questionnaire Date Thrive assessed: 09/28/24 I am a: Patient What is your living situation today?: I have a steady place to live Within the past 12 months, did the food you bought not last and you didn't have the money to get more?: Never true Within the past 12 months, did you worry whether your food would run out before you got money to buy more?: Never true Do you have trouble paying for medicines?: No Do you have trouble getting transportation to medical appointments?: No Do you have trouble paying your heating and electricity bill?: No Do you have trouble taking care of your child, family member or friend?: No Do you have trouble with day-to-day activities such as bathing, preparing meals, shopping, managing finances, etc.?: No Are you currently unemployed and looking for a job?: No Are you interested in more education?: Yes THRIVE Score: 0 TANNER-7 AMB Questionnaire TANNER-7 Date TANNER - 7 assessed: 09/28/24 Feeling nervous, anxious, or on edge: 1 = Several days Not being able to stop or control worryin = Not at all Worrying too much about different things: 1 = Several days Trouble relaxin = Not at all Being so restless that it is hard to sit still: 0 = Not at all Becoming easily annoyed or irritable: 0 = Not at all Feeling afraid as if something awful might happen: 0 = Not at all Total TANNER-7 score (0-4 normal; 5-9 mild; 10-14 moderate; 15-21 severe): 2 Source: Developed by Drs. Dean Dent, Sara Thomas, Ricky Alonso and colleagues, with an educational brody from [employer]. TANNER-7 Assessment Billing TANNER-7 Assessment Tool: TANNER-7 Assessment 13073 Physical exam (Primary Care) Vital Signs: Last Vital Signs Temp 97.7 F 09/28/24 14:26 Pulse 80 09/28/24 14:26 Resp 16 09/28/24 14:26 BP 116/48 L 09/28/24 14:26 Pulse Ox 96 09/28/24 14:26 Oxygen Delivery Method Room Air 09/28/24 14:26 BMI result Body Mass Index 26.6 PHQ-9: PHQ-9 Score PHQ-9: Total score 6 09/28/24 14:54 Depression Screening Interpretation: Negative Thrive Assessment: Date of Thrive Assessment Date Thrive assessed 09/28/24 09/28/24 14:54 Coding Level of Care Code Est Pt Level 4 (60500) Diagnoses Hospital discharge follow-up Z09 HFrEF (heart failure with reduced ejection fraction) I50.20 COPD (chronic obstructive pulmonary disease) J44.9 Parainfluenza B34.8 Additional Codes PHQ-9 - 88895 - PHQ-9 Billing: Yes ([id number]) TANNER-7 Assessment Billing - TANNER-7 Assessment Tool: TANNER-7 Assessment 74836 ([id number]) Assessment & Plan Assessment & Plan (1) Hospital discharge follow-up: Code(s): Z09 - Encounter for follow-up examination after completed treatment for conditions other than malignant neoplasm Category: Medical Plan: Discharge records reviewed including H&P, DC summary, CXR, and labs. Discharge medications reconciled. (2) HFrEF (heart failure with reduced ejection fraction): Comment: EF 37% Code(s): I50.20 - Unspecified systolic (congestive) heart failure Category: Medical Plan: Clinically euvolemic. Exacerbation resolved- was likely triggered by viral infection. Continue lasix. Follow up with cardiology as scheduled (3) COPD (chronic obstructive pulmonary disease): Code(s): J44.9 - Chronic obstructive pulmonary disease, unspecified Category: Medical Plan: Improved but still symptoamtic. With mild exacerbation, likely persisting from viral infection. Prednisone taper prescribed. No productive cough, abx not indicated. No fevers or productive cough to suggest pneumonia. Benzonatate prescribed. VSS (4) Parainfluenza: Code(s): B34.8 - Other viral infections of unspecified site Category: Medical Plan: Likely resulting in COPD exac/mild CHF exac. Resolving. plan as above for ongoing mild copd exacerbation Medications: New prednisone see taper instructions; 40 mg Daily x3 days, 30 mg daily x3 days, 20 mg daily x3 days, 10 mg daily x3 days 10 mg PO DIRECTED 30 tabs 0RF benzonatate 100 mg PO BID PRN 30 caps 0RF cough
[2024-09-28 14:26] VITALS: BP 116/48; PULSE 80; RESP 16; TEMP 36.5; O2SAT 96; BMI 26.6
--- OUTSIDE RECORDS SUMMARY | 2024-09-28 14:57 | XMS_ITS | Encounter Summary ---
Author Organization [facility] Address [address] [place] [address] Care Team Providers Care Histopathologist Name Role Phone Donte Powell MD Primary Care Provider [phone] Encounter Details Date Type Department Care Team (Late st Contact Info) Description 05/29/2024 Lab Requisition [facility] - Main Lab [address] [facility] [place] [address] Ross Saul MD [address] [place] [address] Unspecified atrial fibrillation (CMS/HCC V24, [...] [facility] - 06/03/2024 6:05 AM EDT Test(s) 908414-Fjifsnpwu GI; 541838-Zskdutnog GII was developed and its performance characteristics determined by [facility]. It has not been cleared or approved by the Food and Drug Administration. Ross Saul MD LAB MICROBIOLOGY - GENERAL [facility] Final Result Performing Organization Address City/[facility]/ZIP Co de Phone Number [facility] * - Miscellaneous Test (05/29/2024 1:45 PM EST) Miscellaneous Test COMMENT 2024 6:05 AM EDT [facility] Stool 05/29/2024 1:45 PM EST 05/29/2024 6:13 PM EST Narrative [facility] - 06/03/2024 6:05 AM EDT Performed At: [address] [id number] Cody Paul MD Ph:[phone] Performed At: 02 [facility] [place] [address] [place] [address], [address] [place] [id number] Jordan Aquino MD Ph:[phone] Ross Saul MD LAB BLOOD ORDERABLES Final Resu lt Performing Organization Address City/[facility]/ZIP Co de Phone Number [facility] documented in this encounter Visit Diagnoses Diagnosis Unspecified atrial fibrillation (CMS/HCC V24, CMS/HCC V28) Diarrhea, unspecified documented in this encounter Additional Health Concerns Infection Onset Date Last Indicated Resolved Time Norovirus 05/29/2024 05/29/2024 documented as of this encounter Care Teams Histopathologist Relationship Specialty Start Date End Date Donte Powell MD [address] [place] [address] Dr Rl [place] PCP - General Internal Medicine 09/21/18 documented as of this encounter
--- OUTSIDE RECORDS SUMMARY | 2024-09-28 14:57 | XMS_ITS | Referral Summary ---
Author Organization [facility] Address [address] [place] [address] Care Team Providers Care Organic Gardening Teacher Name Role Phone Donte Powell Primary Care Provider [phone] Allergies Active Allergy Reactions Criticality Noted Date Comments [place] Swelling High he is allergic to shellfish [...] 86 09/29/2023 2:49 PM EDT Temperature 36.4 C (97.5 F) 09/29/2023 2:49 PM EDT Respiratory Rate 20 09/29/2023 2:49 PM EDT Oxygen Saturation 95% 09/29/2023 2:49 PM EDT Inhaled Oxygen Concentration - - Weight 80.6 kg (177 lb 11.1 oz) 09/29/2023 2:49 PM EDT Height 162.4 cm (5' 3.94 ) 04/11/2021 1 1:00 AM EST Body Mass Index 30.56 04/11/2021 11:00 AM EST Plan of Treatment Not on file Procedures * Due to [place] law, this organization might not be sharing [...] to Health Maintenance Results * Due to [place] law, this organization might not be sharing negative HIV tests. * (ABNORMAL) CBC Auto Differential (09/29/2023 1:42 PM EDT) WBC 7.2 3.8 - 10.8 10*3/uL 09/29/2023 2:15 PM EDT [facility] RBC 3.74(L) 4.20 - 5.80 10*6/uL 09/29/2023 2:15 PM EDT [facility] Hemoglobin 11.4(L) 13.2 - 17.1 g/dL 09/29/2023 2:15 PM EDT [facility] Hematocrit 35.5(L) 38.5 - 50.0 % 09/29/2023 2:15 PM EDT [facility] MCV 94.9 80.0 - 100.0 fL 09/29/2023 2:15 PM EDT [facility] MCH 30.5 27.0 - 33.0 pg 09/29/2023 2:15 PM EDT [facility] MCHC 32.1 32.0 - 36.0 g/dL 09/29/2023 2:15 PM EDT [facility] RDW 14.7 11.0 - 15.0 % 09/29/2023 2:15 PM EDT [facility] Platelets 184 140 - 400 10*3/uL 09/29/2023 2:15 PM EDT [facility] MPV 11.3 7.5 - 12.5 fL 09/29/2023 2:15 PM EDT [facility] Neutrophil % 73.2 % 09/29/2023 2:15 PM EDT [facility] Immature Grans % 0.6 0.0 - 0.9 % 09/29/2023 2:15 PM EDT [facility] Lymphocyte % 16.5 % 09/29/2023 2:15 PM EDT [facility] Monocyte % 9.2 % 09/29/2023 2:15 PM EDT [facility] Eosinophil % 0.4 % 09/29/2023 2:15 PM EDT [facility] Basophil % 0.1 % 09/29/2023 2:15 PM EDT [facility] Neutrophil # 5.24 1.50 - 7.80 10*3/uL 09/29/2023 2:15 PM EDT [facility] Immature Grans # 0.04(H) <=0.03 10*3/uL 09/29/2023 2:15 PM EDT [facility] Lymphocyte # 1.20 0.85 - 3.90 10*3/uL 09/29/2023 2:15 PM EDT [facility] Monocyte # 0.70 0.20 - 0.95 10*3/uL 09/29/2023 2:15 PM EDT [facility] Eosinophil # <0.03 0.02 - 0.50 10*3/uL 09/29/2023 2:15 PM EDT [facility] Basophil # <0.03 0.00 - 0.20 10*3/uL 09/29/2023 2:15 PM EDT [facility] nRBC % 0.0 /100 WBCs 09/29/2023 2:15 PM EDT [facility] nRBC # <0.01 <0.01 10*3/uL 09/29/2023 2:15 PM EDT [facility] Total Neutrophil #, Preliminary 5.24 1.50 - 7.80 10*3/uL 09/29/2023 2:15 PM EDT [facility] Blood Structure of peripheral vein / Unknown Venipuncture / Unknown 09/29/2023 1:42 PM EDT 09/29/2023 2:06 PM EDT us George Vaca MD PhD LAB BLOOD ORDERABLES Final Resu lt [facility] [address] [place] [address], * (ABNORMAL) Comprehensive Metabolic Panel (09/29/2023 1:42 PM EDT) NA 137 135 - 145 mmol/L 09/29/2023 2:57 PM EDT [facility] K 4.6 3.5 - 5.3 mmol/L 09/29/2023 2:57 PM EDT [facility] Cl 100 98 - 107 mmol/L 09/29/2023 2:57 PM EDT [facility] CO2 23(L) 24 - 32 mmol/L 09/29/2023 2:57 PM EDT [facility] Anion Gap 14 5 - 15 09/29/2023 2:57 PM EDT [facility] Glucose 173(H) 65 - 99 mg/dL 09/29/2023 2:57 PM EDT [facility] Creatinine 1.94(H) 0.60 - 1.30 mg/dL 09/29/2023 2:57 PM EDT [facility] Calcium 9.4 8.6 - 10.5 mg/dL 09/29/2023 2:57 PM EDT [facility] Total Protein 7.9 6.0 - 8.0 g/dL 09/29/2023 2:57 PM EDT [facility] Albumin 4.1 3.5 - 5.2 g/dL 09/29/2023 2:57 PM EDT [facility] Bilirubin, Total 0.3 0.2 - 1.2 mg/dL 09/29/2023 2:57 PM EDT [facility] Alkaline Phosphatase 63 35 - 129 U/L 09/29/2023 2:57 PM EDT [facility] AST 57(H) 10 - 40 U/L 09/29/2023 2:57 PM EDT [facility] ALT 56(H) 10 - 40 U/L 09/29/2023 2:57 PM EDT [facility] BUN 47(H) 7 - 23 mg/dL 09/29/2023 2:57 PM EDT [facility] eGFR 34(L) >=60 mL/min/1 .73m2 09/29/2023 2:57 PM EDT [facility] Comment:The estimated glomer [...] - 4.2 g/dL 09/29/2023 2:57 PM EDT [facility] A/G Ratio 1.1(L) 1.5 - 3.0 09/29/2023 2:57 PM EDT [facility] Blood Structure of peripheral vein / Unknown Venipuncture / Unknown 09/29/2023 1:42 PM EDT 09/29/2023 2:06 PM EDT us George Vaca MD PhD LAB BLOOD ORDERABLES Final Resu lt [facility] [address] [place] [address], * (ABNORMAL) Vitamin D, 25-Hydroxy, Total, Immunoassay (03/19/2017 1:10 PM EST) Calcidiol+ercalc idiol 26(L) 30 - 100 ng/mL 03/20/2017 10:40 AM EST [facility] Comment: Vitamin D Status 25-OH Vitamin D: Deficiency: <20 ng/mL Insufficiency: 20 - 29 ng/mL Optimal: > or = 30 ng/mL For 25-OH Vitamin D testing on patients on D2-supplementation and patients for whom quantitation of D2 and D3 fractions is required, the QuestAssureD(TM) 25-OH VIT D, (D2,D3), LC/MS/MS is recommended: order code [id number] (patients >2yrs). For more information on this test, go to: http://education.Gemvara/faq/RFK778 (This link is being provided for informational/educational purposes only.) Blood specimen (specimen) Structure of peripheral vein / Unknown Venipuncture / Unknown 03/19/2017 1:10 PM EST 03/19/2017 1:21 PM EST Narrative [facility] - 03/20/2017 10:40 AM EST [facility] Received Date:[id number] Bethany SANTOS LAB BLOOD ORDERABLES Edit ed Result - Final [address], [place] [address], [facility] [address], [place] [address], * (ABNORMAL) Hemoglobin A1c (03/19/2017 1:10 PM EST) Hemoglobin A1C 9.0(H) <5.7 % of total Hgb 03/19/2017 7:14 PM EST [facility] Comment: For someone without known diabetes, a [...] A1c for diagnosis of diabetes for children. eAG (MG/DL) 212 (calc) 03/19/2017 7:14 PM EST [facility] eAG (MMOL/L) 11.7 (calc) 03/19/2017 7:14 PM EST [facility] Blood specimen (specimen) Structure of peripheral vein / Unknown Venipuncture / Unknown 03/19/2017 1:10 PM EST 03/19/2017 1:21 PM EST Narrative [facility] - 03/19/2017 7:14 PM EST [facility] Received Date:[id number] Bethany SANTOS LAB BLOOD ORDERABLES Barbara l Result [facility] [address], [place] [address], [place] [phone] [employer] [facility] [address] [facility] [address], [place] [address], [place] [phone] * (ABNORMAL) Phosphorus (12/20/2013 4:07 AM EDT) Phosphorus Blood 2.0(L) 2.5 - 4.5 mg/dL [facility] 12/20/2013 4:07 AM EDT 12/20/2013 4:29 AM EDT us Camron Strickland MD LAB BLOOD ORDERABLES Final Result Performing Organization Address [facility] Co de Phone Number [facility] [address] [place] [address], [place] * CT Chest W Contrast (05/15/2010 8:03 AM EST) Anatomical Region Laterality Modality Body Computed Tomogra phy 05/15/2010 8:00 AM EST Impressions 05/16/2010 11:56 AM EST IMPRESSION: New small right pleural effusion. No evidence of pneumonia or adenopathy . COMMUNICATION: Per this written report. Narrative 05/16/2010 11:56 AM EST EXAMINATION: Helical CT of the Chest INDICATION: [...] remarkable. BONES: The bony thorax is intact. Procedure Note Tee [...] . COMMUNICATION: Per this written report. 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
--- OUTSIDE RECORDS SUMMARY | 2024-09-28 14:57 | XMS_ITS | Patient Health Record ---
Author Organization [facility] Address [address] [place] [address] Care Team Providers Care Wig Maker Name Role Phone Donte Powell MD Primary Care Provider Dean Amaral Unavailable [phone] Allergies Allergen (clinical drug ingredient) Drug/Non Drug Allergy documented on EMR Reaction Allergy Type Onset Date Status warfarin Warfarin Sodium Unknown Drug Allergy A ctive Reason For Referral No Information Medications Medication SIG (Take, Route, Frequency, Duration) Notes Start Date End Date Status Aspir-81 81 MG 1 tablet Orally Once a day Active Magnesium 500 MG 1 capsule with food Orally Once a day Active Vitamin D 500mg 1 tablet Orally Once a day Active Multi Vitamin/Minerals - as directed Orally friday Active Gemfibrozil 600 MG 1 tablet Orally Twic e a day Active glipiZIDE 10mg 1 tablet in am1/2 ta b in pm Orally twice a day Active NIFEdipine ER 30 MG 1 tablet on an empty stomach Orally Once a day Active metFORMIN HCl 500 MG 1 tablet with a chen l Orally twice a day Active Lantus 100 UNIT/ML 38 units Subcutaneou s as needed Active Iron 25mg 1 tablet Orally Once a day Active Betamethasone Dipropionate 0.05 % 1 application to affected area Externally Twice a day Active Coumadin 5 MG 1 tablet/as directed Orally as directed Active Tamsulosin HCl 0.4 MG 1 capsule Orally o nce a day Active Lipitor 10 MG 1 tablet Orally Once a day Active Toprol XL 25 MG 1/2 tablet Orally On ce a day Active Pacerone 200 MG 1/2 tablet Orally On ce a day Active Immunizations Vaccine Route Administration Date Status Comme nts Influenza Unknown 11/22/2016 Administered Problems Problem Type SNOMED Code ICD Code Onset Dates Problem Status W/U Status Risk Notes Problem 001879312 Encounter for screening for malignant neoplasm of colon (Z12.11) Active confirmed Problem 416371375 History of adenomatous polyp of colon (Z86.010) Active confirmed Problem 797150162 Anticoagulant long-term use (Z79.01) Active confirmed Plan Of Treatment Future Test Test Name Order Date COLONOSCOPY 06/11/2013 COLONOSCOPY 11/27/2017 Insurance Providers Payer Name Payer Address Payer Phone Subscriber Number Group Number Insured Name Patient Relationship to Insured Coverage Start Date Coverage End Date MEDICARE OF [facility] [address] [facility] [place] [address] [id number] TONY CASTELLON Self - patient is the insured [employer] 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 Parsons--in remission A.fib Denies MD,CVA,renal disease Pancreatitis in 1997 PVD--s/p LE bypass as below Started Nexium during his lymphoma treat ments--no real sx of GERD COPD Surgical History Surgery Date(Month/Year) Vascular surgeries and angioplasties on the left leg Appy 194 Perianal fistula and hemorroid repair 20 Cataract left and right 2008
--- OUTSIDE RECORDS SUMMARY | 2024-09-28 14:57 | XMS_ITS | Clinical Summary ---
Author Organization [facility] Address [address] [place] [address] Phone Care Team Providers Care Cab Station Attendant Name Role Phone Donte Powell MD Primary Care Provider [phone] Allergies Active Allergy Reactions Criticality Noted Date Comments [place] (Diagnostic) Other (see comments) 2024 [place] Oil Swelling High 08/26/2024 he is allergic to shellfish swelling in lips and body Shellfish-Derived Products Shortness of breath High 08/26/2024 Warfarin Rash Low 06/10/2023 Medications acetaminophen (TYLENOL) 325 MG tablet 4 Active amiodarone (PACERONE) 200 MG tablet 4 Active apixaban (ELIQUIS) 2.5 MG tablet Take 2.5 mg by mouth in the morning and 2.5 mg in the evening. 0 Active apixaban (ELIQUIS) 5 MG tablet Take 2.5 mg by mouth 4 Active aspirin (ST LEFTY) 81 MG EC tablet Take 81 mg by mouth 5 11/22/19 25 Active atorvastatin (LIPITOR) 40 MG tablet Oral 4 Active atorvastatin (Lipitor) 40 MG tablet 1 (one) time each day at the same time Active Empagliflozin 25 MG tablet Take by mouth 1 (one) time each day 5 Active fenofibrate (TRICOR) 54 MG tablet 0 Active finasteride (PROSCAR) 5 MG tablet 2 Active Fluticasone-Salme terol (Advair Diskus) 100-50 MCG/ACT aerosol powder 1 puff in the morning and 1 puff in the evening. Active Fluticasone-Salme terol 500-50 MCG/ACT aerosol powder Inhale 1 puff 1 (one) time each day 1 Active furosemide (LASIX) 40 MG tablet 4 Active insulin glargine (LANTUS) 100 UNIT/ML injection Inject under the skin 4 Active metoprolol tartrate 25 MG tablet Take 12.5 mg by mouth in the morning and 12.5 mg in the evening. 4 Active terazosin (HYTRIN) 5 MG capsule 1 Active betamethasone dipropionate 0.05 % lotion Apply 1 application. topically 4 Active amoxicillin-clavu lanate (AUGMENTIN) 875-125 MG per tablet 4 Active silver sulfADIAZINE (Silvadene) 1 % cream Apply 1 application. 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 08/25/2024 Chronic obstructive pulmonary disease 08/25/2024 Encounter for examination an d observation for other specified reasons 08/25/2024 Encounter for therapeutic drug level monitoring 08/25/2024 Ex-smoker 08/25/2024 Exposure to potentially hazardous substance 06/2024 Overview (08/25/2024): Jul 02, 2023 Entered By: KAYA MORLEY Comment: Entered automatically through [facility] Problem List documentation program Gastroesophageal reflux disease 08/25/2024 Hearing loss 08/25/2024 Herpes zoster 08/25/2024 Hyperlipidemia 08/25/2024 Liver enzymes level above reference range 2024 group home current use of anticoagulant 5 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 03/02/2015 Jaw pain 03/02/2015 Diabetes mellitus 11/25/2013 History of non-Hodgkins lymphoma 11/25/2013 Hypertension 11/25/2013 Status post bone marrow transplant 10/12/2010 Encounters Date Type Department Care Team Description 08/26/2024 2:45 PM EDT Office Visit [facility] [address] [place] [address] Homar Cadet MD Stage 3b chronic kidney disease (HCC) (Primary Dx); Other acute kidney failure (HCC) from Last 3 Months Family History Medical History Relation Comments Cancer Father Diabetes Mother Relation Status Comments Father Mother Social History Tobacco Use Types Packs/Day Years Used Date Smoking Tobacco: Former Cigarettes Smokeless Tobacco: Former Tobacco Cessation:Counseling Given: Not Answered Alcohol Use Standard Drinks/Week Comments Never 0 (1 standard drink = 0.6 oz pur e alcohol) Sex and Gender Information Value Date Recorded Sex Assigned at Not on file Legal Sex Male 7:16 AM EST Gender Identity Not on file Sexual Orientation Not on file Last Filed Vital Signs Vital Sign Reading Time Taken Comments Blood Pressure 110/54 08/26/2024 2:40 PM EDT Pulse 78 08/26/2024 2:40 PM EDT Temperature - - Respiratory Rate - - Oxygen Saturation 97% 08/26/2024 2:40 PM EDT Inhaled Oxygen Concentration - - Weight 82.1 kg (181 lb) 08/26/2024 2:40 PM EDT Height - - Body Mass Index - - Plan of Treatment Upcoming Encounters Date Type Department Care Team (Late st Contact Info) Description 12/02/2024 1:45 PM EDT Office Visit [facility] [address] [place] [address] Homar Cadet MD [address] [facility] [address] [place] [id number] Health Maintenance Due Date Last Done Comments Diabetes: Hemoglobin A1C 05/26/2024 03/19/2017 Diabetes: Pedal Pulse Checked 05/26/2024 Diabetes: Sensory Foot Exam 05/26/2024 Diabetes: Visual Foot Exam 05/26/2024 Influenza Vaccine (#1) 2024 , 12/26/2020, 12/04/2018, Additional history exists Diabetes: Ophthalmology Exam 03/03/2025 03/03/2024 Hepatitis B Vaccine Aged Out 11/19/2011 No longe r eligible based on patient's age to complete this topic Pneumococcal Vaccine: 50+ Years Completed 10/19/2018, 10/16/2016, 11/19/2011 Insurance Medicare [facility] Care Teams Cab Station Attendant Relationship Specialty Start Date End Date Donte Powell MD [id number] [place] PCP - General Internal Medicine 05/26/24
--- OUTSIDE RECORDS SUMMARY | 2024-11-19 20:00 | XMS_ITS | Clinical Summary ---
Author Organization Unknown Care Team Providers Care Emergency Medicine Nurse Practitioner Name Role Phone GABRIELLA PALACIO, EVELYN Unavailable Unavailab josé miguel RICHARDSON RN, IZABELLA Unavailable Unavailable MARCUS PT, JAMES Unavailable Unavail able ENRIQUE ICT HELP DESK OFFICER, MARINO Unavailable Unavailable Payers Payer Name Policy Type Policy Number Effective Date Expira tion Date MEDICARE.NGS.PDGM [id number] Problems Condition Name Condition Details Condition Category Status Onset Date Resolution Date Last Treatment Date Treating Clinician Comments HYP HRT AND CHR KDNY DIS W HRT FAIL AND STG 1-4/UNSP CHR KDNY Active 09-21 00:00: 00 ACUTE ON CHRONIC SYSTOLIC (CONGESTIVE) HEART FAILURE Active 03-24 00:00: 00 TYPE 2 DIABETES MELLITUS W DIABETIC CHRONIC KIDNEY DISEASE Active 03-24 00:00: 00 CHRONIC KIDNEY DISEASE, STAGE 3B Active 03-24 00:00: 00 ANEMIA IN CHRONIC KIDNEY DISEASE Active 03-24 00:00: 00 OTHER VIRAL INFECTIONS OF UNSPECIFIED SITE Active 03-24 00:00: 00 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 Active 03-24 00:00: 00 CHR OBSTRUCTIVE PULMON DISEASE WITH (ACUTE) LOWER RESP INFCT Active 03-24 00:00: 00 PNEUMONIA, UNSPECIFIED ORGANISM Active 03-24 00:00: 00 TYPE 2 DIABETES W DIABETIC PERIPHERAL ANGIOPATH W/O GANGRENE Active 03-24 00:00: 00 PAROXYSMAL ATRIAL FIBRILLATION Active 03-24 00:00: 00 LEFT BUNDLE-BRANC H BLOCK, UNSPECIFIED Active 03-24 00:00: 00 OCCLUSION AND STENOSIS OF UNSPECIFIED CAROTID ARTERY Active 03-24 00:00: 00 OTHER CARDIOMYOPAT HIES Active 03-24 00:00: 00 PRIMARY OSTEOARTHRIT IS, UNSPECIFIED HAND Active 03-24 00:00: 00 HYPERLIPIDEM IA, UNSPECIFIED Active 03-24 00:00: 00 ASSISTED (CURRENT) USE OF ANTICOAGULAN TS Active 03-24 00:00: 00 ASSISTED (CURRENT) USE OF INSULIN Active 03-24 00:00: 00 MINER HELPER (CURRENT) USE OF ASPIRIN Active 03-24 00:00: 00 MINER HELPER (CURRENT) USE OF ORAL HYPOGLYCEMIC DRUGS Active 03-24 00:00: 00 ASSISTED (CURRENT) USE OF INHALED STEROIDS Active 03-24 00:00: 00 MINER HELPER (CURRENT) USE OF SYSTEMIC STEROIDS Active 03-24 00:00: 00 PRESENCE OF PROSTHETIC HEART VALVE Active 03-24 00:00: 00 PRESENCE OF CARDIAC PACEMAKER Active 03-24 00:00: 00 PERSONAL HISTORY OF NICOTINE DEPENDENCE Active 03-24 00:00: 00 PERSONAL HISTORY OF NON-HODGKIN LYMPHOMAS Active 03-24 00:00: 00 DECREASED WHITE BLOOD CELL COUNT, UNSPECIFIED Active 09-21 00:00: 00 TYPE 2 DIABETES MELLITUS WITHOUT COMPLICATION S Active 09-27 00:00: 00 ESSENTIAL (PRIMARY) HYPERTENSION Active 09-27 00:00: 00 NONRHEUMATIC AORTIC (VALVE) STENOSIS Active 09-27 00:00: 00 PERIPHERAL VASCULAR DISEASE, UNSPECIFIED Active 09-27 00:00: 00 CHRONIC KIDNEY DISEASE, STAGE 3 UNSPECIFIED Active 09-27 00:00: 00 ANEMIA, UNSPECIFIED Active 09-27 00:00: 00 Allergies, Adverse Reactions, Alerts Allergy [...] 07-13 00:00: 00 10-23 23:59 :00 No [id number] SHORTNESS OF BREATH, WHEEZING Per instruc tions EVERY 4 HOURS Per instructio ns EVERY 4 HOURS (route: inhalation ) Med Classific ation: Respirato ry Therapy Agents albuterol sulfate HFA 90 mcg/actuati on aerosol inhaler 07-13 00:00: 00 07-19 00:00 :00 No [id number] Per instruc tions EVERY 4 HOURS NEEDED Per instructio ns EVERY 4 HOURS NEEDED (route: inhalation ) Med Classific ation: Respirato ry Therapy Agents BD Insulin Syringe Ultra-Fine 1 mL 31 gauge x 08/06 00:00: 00 07-19 00:00 :00 No [id number] Per instruc tions Per instructio ns (route: miscellane ous) Med Classific ation: Medical Supplies and Durable Medical Equipment (DME) terazosin 5 mg capsule 07-09 00:00: 00 10-23 23:59 :00 No [id number] BPH 1 capsule DAILY 1 capsule DAILY (route: oral) Med Classific ation: Cardiovas cular Therapy Agents Lantus U-100 Insulin 100 unit/mL subcutaneou s solution 13 00:00: 00 07-19 00:00 :00 No [id number] Per instruc tions Per instructio ns (route: subcutaneo us) Med Classific ation: Endocrine fenofibrate 54 mg tablet 4-11 00:00: 00 10-23 23:59 :00 No [id number] BPH 2 tablet DAILY 2 tablet DAILY (route: oral) Med Classific ation: Cardiovas cular Therapy Agents atorvastati n 10 mg tablet -18 00:00: 00 10-23 23:59 :00 No [id number] HLD 1 tablet BEDTIME 1 tablet BEDTIME (route: oral) Med Classific ation: Cardiovas cular Therapy Agents nifedipine ER 30 mg tablet,exte nded release 2-18 00:00: 00 10-23 23:59 :00 No [id number] HTN 1 tablet DAILY 1 tablet DAILY (route: oral) Med Classific ation: Cardiovas cular Therapy Agents Lantus U-100 Insulin 100 unit/mL subcutaneou s solution 2-15 00:00: 00 10-23 23:59 :00 No [id number] DM 18 unit 2 TIMES DAILY 18 unit 2 TIMES DAILY (route: subcutaneo us) Med Classific ation: Endocrine terazosin 5 mg capsule 2-10 00:00: 00 07-19 00:00 :00 No [id number] Per instruc tions Per instructio ns (route: oral) Med Classific ation: Cardiovas cular Therapy Agents BD Insulin Syringe Ultra-Fine 1 mL 31 gauge x 08/06 2- 00:00: 00 07-19 00:00 :00 No [id number] Per instruc tions Per instructio ns (route: miscellane ous) Med Classific ation: Medical Supplies and Durable Medical Equipment (DME) finasteride 5 mg tablet 04-20 00:00: 00 10-23 23:59 :00 No [id number] BPH 1 tablet DAILY 1 tablet DAILY (route: oral) Med Classific ation: Genitouri nary Therapy Aspirin Low Dose 81 mg tablet,nora yed release 07-19 00:00: 00 10-23 23:59 :00 No [id number] HEART DISEASE 1 tablet DAILY 1 tablet DAILY (route: oral) Med Classific ation: Hematolog ical Agents cholecalcif mary (vitamin D3) 10 mcg (400 unit) capsule 07-19 00:00: 00 10-23 23:59 :00 No [id number] SUPPLEMENT 1 capsule DAILY 1 capsule DAILY (route: oral) Med Classific ation: Electroly te Balance-N utritiona l Products Eliquis 5 mg tablet 07-19 00:00: 00 10-23 23:59 :00 No [id number] AFIB 1 tablet 2 TIMES DAILY 1 tablet 2 TIMES DAILY (route: oral) Med Classific ation: Hematolog ical Agents ferrous fumarate 324 mg (106 mg iron) tablet 07-19 00:00: 00 10-23 23:59 :00 No [id number] SUPPLEMENT 1 tablet DAILY 1 tablet DAILY (route: oral) Med Classific ation: Electroly te Balance-N utritiona l Products insulin lispro (U-100) 100 unit/mL subcutaneou s pen 07-19 00:00: 00 10-23 23:59 :00 No [id number] DM Per instruc tions BEFORE MEALS AND BEDTIME Per instructio ns BEFORE MEALS AND BEDTIME (route: subcutaneo us) Med Classific ation: Endocrine metoprolol tartrate 50 mg tablet 07-19 00:00: 00 07-25 23:59 :00 No [id number] HTN 1 tablet DAILY 1 tablet DAILY (route: oral) Med Classific ation: Cardiovas cular Therapy Agents One-A-Day Trubiotics 2 billion cell capsule 07-19 00:00: 00 10-23 23:59 :00 No [id number] SUPPLEMENT 1 capsule DAILY 1 capsule DAILY (route: oral) Med Classific ation: Gastroint estinal Therapy Agents metoprolol tartrate 25 mg tablet 07-25 00:00: 00 10-23 23:59 :00 No [id number] HTN 12.5 mg 2 TIMES DAILY 12.5 mg 2 TIMES DAILY (route: oral) Med Classific ation: Cardiovas cular Therapy Agents amoxicillin 875 mg-potassiu m clavulanate 125 mg tablet 10-23 00:00: 00 04-27 23:59 :00 No [id number] ABT 1 tablet 2 TIMES DAILY 1 tablet 2 TIMES DAILY (route: oral) Med Classific ation: Anti-Infe ctive Agents terazosin 5 mg capsule 7-11 00:00: 00 10-28 00:00 :00 No [id number] Per instruc tions Per instructio ns (route: oral) Med Classific ation: Cardiovas cular Therapy Agents Advair Diskus 250 mcg-50 mcg/dose powder for inhalation 10-28 00:00: 04-27 23:59 :00 No [id number] COPD 1 inhalat ion 3 TIMES DAILY 1 inhalation 3 TIMES DAILY (route: inhalation ) Med Classific ation: Respirato ry Therapy Agents Eliquis 5 mg tablet 10-28 00:00: 00 04-27 23:59 :00 No [id number] ANTICOAGULA TION 1 tablet 2 TIMES DAILY 1 tablet 2 TIMES DAILY (route: oral) Med Classific ation: Hematolog ical Agents fenofibrate 54 mg tablet 10-28 00:00: 00 04-27 23:59 :00 No [id number] PROSTATE 1 tablet DAILY 1 tablet DAILY (route: oral) Med Classific ation: Cardiovas cular Therapy Agents insulin glargine (U-100) 100 unit/mL subcutaneou s solution 10-28 00:00: 00 04-27 23:59 :00 No [id number] DM 18 unit 2 TIMES DAILY 18 unit 2 TIMES DAILY (route: subcutaneo us) Med Classific ation: Endocrine iron 325 mg (65 mg iron) tablet 10-28 00:00: 00 04-27 23:59 :00 No [id number] SUPPLEMENT 1 tablet DAILY 1 tablet DAILY (route: oral) Med Classific ation: Electroly te Balance-N utritiona l Products Lipitor 10 mg tablet 10-28 00:00: 00 04-27 23:59 :00 No [id number] CAD 1 tablet DAILY 1 tablet DAILY (route: oral) Med Classific ation: Cardiovas cular Therapy Agents losartan 50 mg tablet 10-28 00:00: 00 04-27 23:59 :00 No [id number] HTN 1 tablet DAILY 1 tablet DAILY (route: oral) Med Classific ation: Cardiovas cular Therapy Agents terazosin 5 mg capsule 10-28 00:00: 00 04-27 23:59 :00 No [id number] SLEEP 1 capsule DAILY 1 capsule DAILY (route: oral) Med Classific ation: Cardiovas cular Therapy Agents Toprol XL 25 mg tablet,exte nded release 2023-0 8-07 00:00: 00 04-27 23:59 :00 No [id number] AFIB 0.5 tablet DAILY 0.5 tablet DAILY (route: oral) Med Classific ation: Cardiovas cular Therapy Agents Vitamin D3 25 mcg (1,000 unit) capsule 8-07 00:00: 00 04-27 23:59 :00 No [id number] SUPPLEMENT 1 capsule DAILY 1 capsule DAILY (route: oral) Med Classific ation: Electroly te Balance-N utritiona l Products Advair Diskus 250 mcg-50 mcg/dose powder for inhalation 2- 00:00: 00 06-02 23:59 :00 No [id number] SOB 1 inhalat ion 2 TIMES DAILY 1 inhalation 2 TIMES DAILY (route: inhalation ) Med Classific ation: Respirato ry Therapy Agents atorvastati n 40 mg tablet 2- 00:00: 00 06-02 23:59 :00 No [id number] CHOLESTEROL 1 tablet BEDTIME 1 tablet BEDTIME (route: oral) Med Classific ation: Cardiovas cular Therapy Agents D3 DOTS 50 mcg (2,000 unit) tablet 2 00:00: 00 06-02 23:59 :00 No [id number] SUPPLEMENT 1 tablet DAILY 1 tablet DAILY (route: oral) Med Classific ation: Electroly te Balance-N utritiona l Products Eliquis 2.5 mg tablet 2- 00:00: 00 06-02 23:59 :00 No [id number] ATRIAL FIB 1 tablet 2 TIMES DAILY 1 tablet 2 TIMES DAILY (route: oral) Med Classific ation: Hematolog ical Agents fenofibrate 54 mg tablet 2- 00:00: 00 06-02 23:59 :00 No [id number] CHOLESTEROL 2 tablet DAILY 2 tablet DAILY (route: oral) Med Classific ation: Cardiovas cular Therapy Agents ferrous sulfate 325 mg (65 mg iron) tablet 2-07 00:00: 00 06-02 23:59 :00 No [id number] ANEMIA 1 tablet DAILY 1 tablet DAILY (route: oral) Med Classific ation: Electroly te Balance-N utritiona l Products finasteride 5 mg tablet 2- 00:00: 00 06-02 23:59 :00 No [id number] BPH 1 tablet DAILY 1 tablet DAILY (route: oral) Med Classific ation: Genitouri nary Therapy insulin glargine (U-100) 100 unit/mL (3 mL) subcutaneou s pen 2- 00:00: 00 06-02 23:59 :00 No [id number] DM 18 unit 2 TIMES DAILY 18 unit 2 TIMES DAILY (route: [facility] ) Med Classific ation: Endocrine losartan 50 mg tablet 2- 00:00: 00 06-02 23:59 :00 No [id number] HTN 50 mg DAILY 50 mg DAILY (route: oral) Med Classific ation: Cardiovas cular Therapy Agents metoprolol succinate ER 25 mg tablet,exte nded release 24 hr 04-30 00:00: 00 06-02 23:59 :00 No [id number] RATE CONTROL,BP .5 tablet 2 TIMES DAILY .5 tablet 2 TIMES DAILY (route: oral) Med Classific ation: Cardiovas cular Therapy Agents Novolin N FlexPen 100 unit/mL (3 mL) [facility] 2- 00:00: 00 06-02 23:59 :00 No [id number] DM 16 unit DAILY 16 unit DAILY (route: [facility]) Med Classific ation: Endocrine Novolog FlexPen U-100 Insulin aspart 100 unit/mL (3 mL) subcutaneou s 2- 00:00: 00 06-02 23:59 :00 No [id number] DM 9 unit DAILY 9 unit DAILY (route: [facility] ) Med Classific ation: Endocrine Novolog FlexPen U-100 Insulin aspart 100 unit/mL (3 mL) subcutaneou s 2- 00:00: 00 06-02 23:59 :00 No [id number] DM 11 unit DAILY 11 unit DAILY (route: [facility]) Med Classific ation: Endocrine terazosin 5 mg capsule 2-07 00:00: 00 06-02 23:59 :00 No [id number] BPH 1 capsule BEDTIME 1 capsule BEDTIME (route: oral) Med Classific ation: Cardiovas cular Therapy Agents carboxymeth ylcellulose sodium 0.5 % eye drops 2-07 00:00: 00 06-02 23:59 :00 No [id number] DRY EYES 1 drops 2 TIMES DAILY 1 drops 2 TIMES DAILY (route: ophthalmic (eye)) Med Classific ation: Ophthalmi c Agents ICaps AREDS 4,296 mcg-226 mg-90 mg capsule 2-07 00:00: 00 06-02 23:59 :00 No [id number] EYE HEALTH 1 capsule DAILY 1 capsule DAILY (route: oral) Med Classific ation: Electroly te Balance-N utritiona l Products Jardiance 25 mg tablet 2 00:00: 00 05-12 23:59 :00 No [id number] DM 1 tablet DAILY 1 tablet DAILY (route: oral) Med Classific ation: Endocrine Lasix 40 mg tablet 2-16 00:00: 00 06-02 23:59 :00 No [id number] CHF 1 tablet DAILY 1 tablet DAILY (route: oral) Med Classific ation: Cardiovas cular Therapy Agents Jardiance 10 mg tablet - 00:00: 00 06-02 23:59 :00 No [id number] DIABETES 0.5 tablet DAILY 0.5 tablet DAILY (route: oral) Med Classific ation: Endocrine fenofibrate 54 mg tablet 2- 00:00: 00 06-10 00:00 :00 No [id number] Per instruc tions Per instructio ns (route: oral) Med Classific ation: Cardiovas cular Therapy Agents acetaminoph en 500 mg tablet 3-20 00:00: 00 09-22 00:00 :00 No [id number] PAIN 2 tablet EVERY 8 HOURS 2 tablet EVERY 8 HOURS (route: oral) Med Classific ation: Analgesic , Anti-infl ammatory or Antipyret ic Afrin (oxymetazol ine) 0.05 % nasal spray 06-10 00:00: 00 09-22 00:00 :00 No [id number] NOSEBLEEDS 2 spray EVERY 4 HOURS 2 spray EVERY 4 HOURS (route: nasal) Med Classific ation: Respirato ry Therapy Agents albuterol sulfate HFA 90 mcg/actuati on aerosol inhaler 06-10 00:00: 00 09-22 00:00 :00 No [id number] SHORTNESS OF BREATH 2 puff EVERY 6 HOURS 2 puff EVERY 6 HOURS (route: inhalation ) Med Classific ation: Respirato ry Therapy Agents amiodarone 200 mg tablet 06-10 00:00: 00 09-22 00:00 :00 No [id number] IRREGULAR HEART BEAT 1 tablet DAILY 1 tablet DAILY (route: oral) Med Classific ation: Cardiovas cular Therapy Agents aspirin 81 mg tablet,nora yed release 06-10 00:00: 00 09-22 00:00 :00 No [id number] HIGH LIPIDS 1 tablet DAILY 1 tablet DAILY (route: oral) Med Classific ation: Hematolog ical Agents betamethaso ne dipropionat e 0.05 % topical cream 06-10 00:00: 00 09-22 00:00 :00 No [id number] PSORIASIS FLARE 3 inch 2 TIMES DAILY 3 inch 2 TIMES DAILY (route: topical) Med Classific ation: Dermatolo gical Eliquis 2.5 mg tablet 06-10 00:00: 00 09-22 00:00 :00 No [id number] IRREGULAR HEART BEAT 1 tablet EVERY 12 HOURS 1 tablet EVERY 12 HOURS (route: oral) Med Classific ation: Hematolog ical Agents fenofibrate 54 mg tablet 06-10 00:00: 00 09-22 00:00 :00 No [id number] HIGH LIPIDS 2 tablet EVERY AM 2 tablet EVERY AM (route: oral) Med Classific ation: Cardiovas cular Therapy Agents ferrous sulfate 325 mg (65 mg iron) tablet 06-10 00:00: 00 09-22 00:00 :00 No [id number] ANEMIA 1 tablet EVERY 48 HOURS 1 tablet EVERY 48 HOURS (route: oral) Med Classific ation: Electroly te Balance-N utritiona l Products finasteride 5 mg tablet 06-10 00:00: 00 09-22 00:00 :00 No [id number] ENLARGED PROSTATE 1 tablet BEDTIME 1 tablet BEDTIME (route: oral) Med Classific ation: Genitouri nary Therapy Jardiance 25 mg tablet 06-10 00:00: 00 09-22 00:00 :00 No [id number] DIABETES 1 tablet DAILY 1 tablet DAILY (route: oral) Med Classific ation: Endocrine Lantus Solostar U-100 Insulin 100 unit/mL (3 mL) subcutaneou s pen 06-10 00:00: 00 09-22 00:00 :00 No [id number] DIABETES 8 unit 2 TIMES DAILY 8 unit 2 TIMES DAILY ([facility] Med Classific ation: Endocrine metoprolol succinate ER 25 mg tablet,exte nded release 24 hr 06-10 00:00: 00 09-22 00:00 :00 No [id number] IRREGULAR HEART BEAT 0.5 tablet 2 TIMES DAILY 0.5 tablet 2 TIMES DAILY (route: oral) Med Classific ation: Cardiovas cular Therapy Agents Miralax 17 gram/dose oral powder 06-10 00:00: 00 09-22 00:00 :00 No [id number] CONSTIPATIO N 17 gram DAILY 17 gram DAILY (route: oral) Med Classific ation: Gastroint estinal Therapy Agents Novolog FlexPen U-100 Insulin aspart 100 unit/mL (3 mL) subcutaneou s 06-10 00:00: 00 09-22 00:00 :00 No [id number] DIABETES 2 unit BEFORE DINNER 2 unit BEFORE DINNER ([facility] Med Classific ation: Endocrine Novolog FlexPen U-100 Insulin aspart 100 unit/mL (3 mL) subcutaneou s 06-10 00:00: 00 09-22 00:00 :00 No [id number] DIABETES 4 unit BEFORE LUNCH 4 unit BEFORE LUNCH ([facility]) Med Classific ation: Endocrine Novolog FlexPen U-100 Insulin aspart 100 unit/mL (3 mL) subcutaneou s 06-10 00:00: 00 09-22 00:00 :00 No [id number] DIABETES 4 unit BEFORE BREAKFAST 4 unit BEFORE BREAKFAST (route: [facility]) Med Classific ation: Endocrine oxycodone 5 mg tablet 06-10 00:00: 00 09-22 00:00 :00 No [id number] SEVERE PAIN 1 tablet EVERY 4 HOURS 1 tablet EVERY 4 HOURS (route: oral) Med Classific ation: Analgesic , Anti-infl ammatory or Antipyret ic terazosin 5 mg capsule 06-10 00:00: 00 09-22 00:00 :00 No [id number] ENLARGED PROSTATE 1 capsule BEDTIME 1 capsule BEDTIME (route: oral) Med Classific ation: Cardiovas cular Therapy Agents Wixela Inhub 250 mcg-50 mcg/dose powder for inhalation 06-10 00:00: 00 09-22 00:00 :00 No [id number] COPD 1 inhalat ion DAILY 1 inhalation DAILY (route: inhalation ) Med Classific ation: Respirato ry Therapy Agents amoxicillin 875 mg-potassiu m clavulanate 125 mg tablet 06-16 00:00: 00 06-26 23:59 :00 No [id number] INFE 1 tablet 2 TIMES DAILY 1 [...] ation: CARDIOVAS CULAR THERAPY AGENTS GLIPIZIDE ORAL 2016-03-05 00:00: 00 04-10 00:00 :00 No 10 [...] Observation Time Observation Value Commen ts Temperature 2024-09-28 09:07:00.000 97 [degF] Temperature 2024-09-22 12:16:00.000 97.3 [degF] BMI (%) 2024-09-22 12:16:00.000 26 kg/m2 Height 2024-09-22 12:16:00.000 66 [in_us] Pulse 2024-09-28 09:07:00.000 91 /min Pulse 2024-09-27 10:33:00.000 91 /min Pulse 2024-09-22 12:16:00.000 84 /min O2 Saturation (%) 2024-09-28 09:07:00.000 96 % O2 Saturation (%) 2024-09-27 10:33:00.000 94 % O2 Saturation (%) 2024-09-22 12:16:00.000 96 % Respirations 2024-09-28 09:07:00.000 18 /min Respirations 2024-09-22 12:16:00.000 18 /min Weight (lbs) 2024-09-28 09:07:00.000 159 [lb_av] Weight (lbs) 2024-09-22 12:16:00.000 165.2 [lb_av] Systolic Blood Pressure 2024-09-28 09:07:00.000 120 mm [Hg] Systolic Blood Pressure 2024-09-22 12:16:00.000 122 mm [Hg] Diastolic Blood Pressure 2024-09-28 09:07:00.000 50 mm [Hg] Diastolic Blood Pressure 2024-09-22 12:16:00.000 50 mm [Hg] Plan of Treatment Planned Activity Planned Date Details Comments Future Scheduled Test RN TO OBSE RVE, ASSESS, EVALUATE, AND DEVELOP AN INDIVIDUALIZED PLAN OF CARE. AGENCY MAY ACCEPT ORDERS FROM CONSULTING PHYSICIANS. RN TO OBSERVE AND ASSESS, FOLDING MACHINE OPERATOR/DELIVERY MAN TO OBSERVE FOR RISK FOR FALLS AND INSTRUCT IN FALL PREVENTION, HOME SAFETY, MEDICATION MANAGEMENT, INFECTION PREVENTION, AND NUTRITION MANAGEMENT. RN/FOLDING MACHINE OPERATOR/DELIVERY MAN NURSE MAY PERFORM O2 SATURATION LEVEL ON ADMISSION AND PRN FOR RN TO ASSESS/FOLDING MACHINE OPERATOR TO OBSERVE PATIENT, WITH NOTIFICATION TO THE PHYSICIAN IF SATURATION IS 90% IN THE ABSENCE OF MORE SPECIFIC PARAMETERS FROM THE PHYSICIAN. AGENCY MAY PERFORM A RESUMPTION OF CARE VISIT FOLLOWING ANY HOSPITAL ADMISSION. RN/FOLDING MACHINE OPERATOR/DELIVERY MAN TO MONITOR CO-MORBID CONDITIONS LISTED ON THE PLAN OF CARE AND ANY NEW CONDITIONS THAT PRESENT THEMSELVES DURING THIS EPISODE TO IDENTIFY CHANGES AND INTERVENE TO MINIMIZE COMPLICATIONS. [code = RN TO OBSERVE, ASSESS, EVALUATE, AND DEVELOP AN INDIVIDUALIZED PLAN OF CARE. AGENCY MAY ACCEPT ORDERS FROM CONSULTING PHYSICIANS. RN TO OBSERVE AND ASSESS, FOLDING MACHINE OPERATOR/DELIVERY MAN TO OBSERVE FOR RISK FOR FALLS AND INSTRUCT IN FALL PREVENTION, HOME SAFETY, MEDICATION MANAGEMENT, INFECTION PREVENTION, AND NUTRITION MANAGEMENT. RN/FOLDING MACHINE OPERATOR/DELIVERY MAN NURSE MAY PERFORM O2 SATURATION LEVEL ON ADMISSION AND PRN FOR RN TO ASSESS/FOLDING MACHINE OPERATOR TO OBSERVE PATIENT, WITH NOTIFICATION TO THE PHYSICIAN IF SATURATION IS 90% IN THE ABSENCE OF MORE SPECIFIC PARAMETERS FROM THE PHYSICIAN. AGENCY MAY PERFORM A RESUMPTION OF CARE VISIT FOLLOWING ANY HOSPITAL ADMISSION. RN/FOLDING MACHINE OPERATOR/DELIVERY MAN TO MONITOR CO-MORBID CONDITIONS LISTED ON THE PLAN OF CARE AND ANY NEW CONDITIONS THAT PRESENT THEMSELVES DURING THIS EPISODE TO IDENTIFY CHANGES AND INTERVENE TO MINIMIZE COMPLICATIONS.] Future Scheduled Test MEDICATION MANAGEMENT; RN/FOLDING MACHINE OPERATOR/DELIVERY MAN TO REVIEW MEDICATIONS FOR INTERACTIONS, EFFECTIVENESS OF DRUG THERAPY, AND SIGNS/SYMPTOMS OF ADVERSE REACTIONS. MAY INSTRUCT AND REINFORCE MEDICATION TEACHING RELATED TO THE USE OF MEDICATIONS, DOSAGE, FREQUENCY, PURPOSE, SIDE EFFECTS, AND TO REPORT COMPLICATIONS. [code = MEDICATION MANAGEMENT; RN/FOLDING MACHINE OPERATOR/DELIVERY MAN TO REVIEW MEDICATIONS FOR INTERACTIONS, EFFECTIVENESS OF DRUG THERAPY, AND SIGNS/SYMPTOMS OF ADVERSE REACTIONS. MAY INSTRUCT AND REINFORCE MEDICATION TEACHING RELATED TO THE USE OF MEDICATIONS, DOSAGE, FREQUENCY, PURPOSE, SIDE EFFECTS, AND TO REPORT COMPLICATIONS.] Future Scheduled Test RISK FOR H OSPITALIZATION; RN TO ASSESS/TEACH, DELIVERY MAN/FOLDING MACHINE OPERATOR TO OBSERVE/TEACH PATIENT/CAREGIVER ON RISK FOR HOSPITALIZATION/EMERGENCY ROOM VISITS, TEACH SIGNS AND SYMPTOMS THAT PUT PATIENT AT RISK, WHEN TO NOTIFY NURSE/PHYSICIAN OF COMPLICATIONS/DECLINE, AND WHEN TO CALL 911. [code = RISK FOR HOSPITALIZATION; RN TO ASSESS/TEACH, DELIVERY MAN/FOLDING MACHINE OPERATOR TO OBSERVE/TEACH PATIENT/CAREGIVER ON RISK FOR HOSPITALIZATION/EMERGENCY ROOM VISITS, TEACH SIGNS AND SYMPTOMS THAT PUT PATIENT AT RISK, WHEN TO NOTIFY NURSE/PHYSICIAN OF COMPLICATIONS/DECLINE, AND WHEN TO CALL 911.] Future Scheduled Test CARDIOVASC ULAR SYSTEM; RN TO ASSESS/TEACH, FOLDING MACHINE OPERATOR/DELIVERY MAN TO OBSERVE/TEACH RELATED TO ALTERED CARDIOVASCULAR STATUS TO MINIMIZE COMPLICATIONS AND REDUCE HOSPITALIZATION. [code = CARDIOVASCULAR SYSTEM; RN TO ASSESS/TEACH, FOLDING MACHINE OPERATOR/DELIVERY MAN TO OBSERVE/TEACH RELATED TO ALTERED CARDIOVASCULAR STATUS TO MINIMIZE COMPLICATIONS AND REDUCE HOSPITALIZATION.] Future Scheduled Test HEART FAIL URE; RN TO ASSESS/TEACH, FOLDING MACHINE OPERATOR/DELIVERY MAN TO OBSERVE/TEACH CARDIOPULMONARY SYSTEM TO IDENTIFY SIGNS [...] [code = HEART FAILURE; RN TO ASSESS/TEACH, FOLDING MACHINE OPERATOR/DELIVERY MAN TO OBSERVE/TEACH CARDIOPULMONARY SYSTEM TO IDENTIFY SIGNS [...] ON MANAGEMENT; RN TO ASSESS AND TEACH, FOLDING MACHINE OPERATOR/DELIVERY MAN TO OBSERVE AND TEACH WARNING SIGNS AND SYMPTOMS TO AVOID HOSPITALIZATION. [code = HYPERTENSION MANAGEMENT; RN TO ASSESS AND TEACH, FOLDING MACHINE OPERATOR/DELIVERY MAN TO OBSERVE AND TEACH WARNING SIGNS AND SYMPTOMS TO AVOID HOSPITALIZATION.] Future Scheduled Test ARRHYTHMIA MANAGEMENT; RN TO ASSESS AND TEACH, FOLDING MACHINE OPERATOR/DELIVERY MAN TO OBSERVE AND TEACH WARNING SIGNS AND SYMPTOMS TO AVOID HOSPITALIZATION. [code = ARRHYTHMIA MANAGEMENT; RN TO ASSESS AND TEACH, FOLDING MACHINE OPERATOR/DELIVERY MAN TO OBSERVE AND TEACH WARNING SIGNS AND SYMPTOMS TO AVOID HOSPITALIZATION.] Future Scheduled Test RESPIRATOR Y SYSTEM MANAGEMENT; RN TO ASSESS AND TEACH, FOLDING MACHINE OPERATOR/DELIVERY MAN TO OBSERVE AND TEACH RELATED TO ALTERED RESPIRATORY STATUS TO MINIMIZE COMPLICATIONS AND REDUCE HOSPITALIZATION. [code = RESPIRATORY SYSTEM MANAGEMENT; RN TO ASSESS AND TEACH, FOLDING MACHINE OPERATOR/DELIVERY MAN TO OBSERVE AND TEACH RELATED TO ALTERED RESPIRATORY STATUS TO MINIMIZE COMPLICATIONS AND REDUCE HOSPITALIZATION.] Future Scheduled Test PNEUMONIA MANAGEMENT; RN TO ASSESS AND TEACH, FOLDING MACHINE OPERATOR/DELIVERY MAN TO OBSERVE AND TEACH SIGNS OF PNEUMONIA EXACERBATION AND PROVIDE EARLY INTERVENTIONS TO MINIMIZE RISK OF HOSPITALIZATION. [code = PNEUMONIA MANAGEMENT; RN TO ASSESS AND TEACH, FOLDING MACHINE OPERATOR/DELIVERY MAN TO OBSERVE AND TEACH SIGNS OF PNEUMONIA EXACERBATION AND PROVIDE EARLY INTERVENTIONS TO MINIMIZE RISK OF HOSPITALIZATION.] Future Scheduled Test PAIN MANAG EMENT; RN TO ASSESS AND TEACH, DELIVERY MAN/FOLDING MACHINE OPERATOR TO OBSERVE AND TEACH AND PROVIDE EDUCATION ON PAIN MANAGEMENT TECHNIQUES. [code = PAIN MANAGEMENT; RN TO ASSESS AND TEACH, DELIVERY MAN/FOLDING MACHINE OPERATOR TO OBSERVE AND TEACH AND PROVIDE EDUCATION ON PAIN MANAGEMENT TECHNIQUES.] Future Scheduled Test FALL REDUC TION MANAGEMENT; RN TO ASSESS AND OBSERVE, FOLDING MACHINE OPERATOR/DELIVERY MAN TO OBSERVE FALL RISK FACTORS AND EDUCATE PATIENT/CAREGIVER ON STRATEGIES TO MINIMIZE THE RISK OF FALLING. [code = FALL REDUCTION MANAGEMENT; RN TO ASSESS AND OBSERVE, FOLDING MACHINE OPERATOR/DELIVERY MAN TO OBSERVE FALL RISK FACTORS AND EDUCATE PATIENT/CAREGIVER ON STRATEGIES TO MINIMIZE THE RISK OF FALLING.] Future Scheduled Test SKIN INTEG RITY RN TO ASSESS AND TEACH, FOLDING MACHINE OPERATOR/DELIVERY MAN TO OBSERVE AND TEACH INTEGUMENTARY STATUS TO IDENTIFY CHANGES AND INTERVENE TO MINIMIZE COMPLICATIONS. PROVIDE SKILLED TEACHING OF GENERAL WOUND AND SKIN CARE AND PREVENTION RELATED TO ACTUAL ALTERED SKIN INTEGRITY [code = SKIN INTEGRITY RN TO ASSESS AND TEACH, FOLDING MACHINE OPERATOR/DELIVERY MAN TO OBSERVE AND TEACH INTEGUMENTARY STATUS TO IDENTIFY CHANGES AND INTERVENE TO MINIMIZE COMPLICATIONS. PROVIDE SKILLED TEACHING OF GENERAL WOUND AND SKIN CARE AND PREVENTION RELATED TO ACTUAL ALTERED SKIN INTEGRITY ] Future Scheduled Test AGENCY MAY PERFORM A RESUMPTION OF CARE VISIT FOLLOWING ANY HOSPITAL ADMISSION. PT TO EVALUATE, OBSERVE / ASSESS, AND MONITOR, ICT HELP DESK OFFICER TO OBSERVE AND MONITOR, PROVIDE SKILLED THERAPEUTIC INTERVENTION, ACTIVITY, EDUCATION, AND TRAINING TO ADDRESS; PT/ICT HELP DESK OFFICER TO PROVIDE GAIT TRAINING FOR IMPROVED MOBILITY AND /OR TO NORMALIZE GAIT PATTERN NEUROMUSCULAR RE-EDUCATION / BALANCE / POSTURAL CONTROL (PT) THERAPEUTIC EXERCISES AND ESTABLISHING A HOME EXERCISE PROGRAM (PT/ICT HELP DESK OFFICER) PT/ICT HELP DESK OFFICER TO PROVIDE STAIR TRAINING PT / ICT HELP DESK OFFICER TO MONITOR AND EDUCATE ON OXYGEN SATURATION DURING ADLS/IADLS, NOTIFY PHYSICIAN AND/OR THE RN CLINICAL FINE GRADE BULLDOZER OPERATOR FOR PHYSICIAN NOTIFICATION AND IF O2 SATS BELOW PHYSICIAN ORDERED PARAMETERS AFTER 10 MIN OF REST PT / ICT HELP DESK OFFICER MAY EDUCATE ON PAIN MANAGEMENT CLINICALLY INDICATED, INCLUDING NON-PHARMACOLOGICAL PAIN REDUCTION TECHNIQUES AND USE OF CRYOTHERAPY, HEAORAND/OR FOAM ROLLING UP TO 20 MIN AT A TIME FOR PAIN MANAGEMENT 3-5 TIMES PER DAY TO SORE MUSCLES PT TO ASSESS / ICT HELP DESK OFFICER TO MONITOR FOR HEART FAILURE EXACERBATION AND RECORD PATIENT REPORTED WEIGHT, AND NOTIFY THE PHYSICIAN AND/OR THE RN CLINICAL FINE GRADE BULLDOZER OPERATOR FOR PHYSICIAN NOTIFICATION OF HF EXACERBATION (2LB WEIGHT GAIN IN 1 DAY, 5LBS IN A WEEK OR 5 LBS OVER BASELINE; INCREASED SOB, EDEMA, NEEDING MORE PILLOWS AT NIGHT, CRACKLES IN BASIS OF THE LUNGS OR PMI SHIFT) PT/ICT HELP DESK OFFICER TO IDENTIFY FALL RISK FACTORS; EDUCATE THE PATIENT/CAREGIVER ON WAYS TO REDUCE FALL RISK FACTORS AND ESTABLISH HOME EXERCISE PROGRAM TO MINIMIZE FALL RISK. MAY TEACH THE PATIENT FLOOR RECOVERY WHEN CLINICALLY APPROPRIATE PT TO ASSESS / ICT HELP DESK OFFICER TO MONITOR CARDIO/RESPIRATORY SYSTEM; AND NOTIFY THE PHYSICIAN AND/OR THE RN CLINICAL FINE GRADE BULLDOZER OPERATOR FOR PHYSICIAN NOTIFICATION FOR EARLY SIGNS AND SYMPTOMS OF EXACERBATION OR DETERIORATION. [code = AGENCY MAY PERFORM A RESUMPTION OF CARE VISIT FOLLOWING ANY HOSPITAL ADMISSION. PT TO EVALUATE, OBSERVE / ASSESS, AND MONITOR, ICT HELP DESK OFFICER TO OBSERVE AND MONITOR, PROVIDE SKILLED THERAPEUTIC INTERVENTION, ACTIVITY, EDUCATION, AND TRAINING TO ADDRESS; PT/ICT HELP DESK OFFICER TO PROVIDE GAIT TRAINING FOR IMPROVED MOBILITY AND /OR TO NORMALIZE GAIT PATTERN NEUROMUSCULAR RE-EDUCATION / BALANCE / POSTURAL CONTROL (PT) THERAPEUTIC EXERCISES AND ESTABLISHING A HOME EXERCISE PROGRAM (PT/ICT HELP DESK OFFICER) PT/ICT HELP DESK OFFICER TO PROVIDE STAIR TRAINING PT / ICT HELP DESK OFFICER TO MONITOR AND EDUCATE ON OXYGEN SATURATION DURING ADLS/IADLS, NOTIFY PHYSICIAN AND/OR THE RN CLINICAL FINE GRADE BULLDOZER OPERATOR FOR PHYSICIAN NOTIFICATION AND IF O2 SATS BELOW PHYSICIAN ORDERED PARAMETERS AFTER 10 MIN OF REST PT / ICT HELP DESK OFFICER MAY EDUCATE ON PAIN MANAGEMENT CLINICALLY INDICATED, INCLUDING NON-PHARMACOLOGICAL PAIN REDUCTION TECHNIQUES AND USE OF CRYOTHERAPY, HEAORAND/OR FOAM ROLLING UP TO 20 MIN AT A TIME FOR PAIN MANAGEMENT 3-5 TIMES PER DAY TO SORE MUSCLES PT TO ASSESS / ICT HELP DESK OFFICER TO MONITOR FOR HEART FAILURE EXACERBATION AND RECORD PATIENT REPORTED WEIGHT, AND NOTIFY THE PHYSICIAN AND/OR THE RN CLINICAL FINE GRADE BULLDOZER OPERATOR FOR PHYSICIAN NOTIFICATION OF HF EXACERBATION (2LB WEIGHT GAIN IN 1 DAY, 5LBS IN A WEEK OR 5 LBS OVER BASELINE; INCREASED SOB, EDEMA, NEEDING MORE PILLOWS AT NIGHT, CRACKLES IN BASIS OF THE LUNGS OR PMI SHIFT) PT/ICT HELP DESK OFFICER TO IDENTIFY FALL RISK FACTORS; EDUCATE THE PATIENT/CAREGIVER ON WAYS TO REDUCE FALL RISK FACTORS AND ESTABLISH HOME EXERCISE PROGRAM TO MINIMIZE FALL RISK. MAY TEACH THE PATIENT FLOOR RECOVERY WHEN CLINICALLY APPROPRIATE PT TO ASSESS / ICT HELP DESK OFFICER TO MONITOR CARDIO/RESPIRATORY SYSTEM; AND NOTIFY THE PHYSICIAN AND/OR THE RN CLINICAL FINE GRADE BULLDOZER OPERATOR FOR PHYSICIAN NOTIFICATION FOR EARLY SIGNS AND [...] End Date/Time Encounter Type Admission Type Attending [facility] Care Department Encounter ID Discharge Date Discharge Status Discharge Condition Discharge Reason Percent Goals Met 2024-09-22 00:00:00 2024-11-20 00:00:00 Outpatient IZABELLA CROUCH [facility] [id number] 37.50
== END 2024-09-28 14:54 | disposition home or self-care (01) ==
LOC: HO.HMCHD 14:07
PROVIDERS: PCP Physician Assistant; Visit Provider Physician Assistant
DX: Z09 Encounter for follow-up examination after completed treatment for conditions other than malignant neoplasm (principal); I50.20 Unspecified systolic (congestive) heart failure; J44.9 Chronic obstructive pulmonary disease, unspecified; B34.8 Other viral infections of unspecified site

== ENCOUNTER → 2024-09-28 14:07 | Outpatient (BNVA) | payer MEDICARE, OTHER, SELFPAY | PROVIDERS: PCP Physician Assistant; Visit Provider Physician Assistant | DX: Z09 Encounter for follow-up examination after completed treatment for conditions other than malignant neoplasm (principal); I13.0 Hypertensive heart and chronic kidney disease with heart failure and stage 1 through stage 4 chronic kidney disease, or unspecified chronic kidney disease; I50.20 Unspecified systolic (congestive) heart failure; N18.30 Chronic kidney disease, stage 3 unspecified; J44.9 Chronic obstructive pulmonary disease, unspecified; B34.8 Other viral infections of unspecified site; Z13.31 Encounter for screening for depression; Z13.30 Encounter for screening examination for mental health and behavioral disorders, unspecified | CPT/HCPCS: 96127; 99212 ==

== ENCOUNTER 2024-10-05 10:32 | Outpatient (AMB) | payer MEDICARE, OTHER, SELFPAY ==
--- NOTE | 2024-10-05 10:36 | A.OFFPC_ITS ---
Vital Signs 10/05/24 10:39 Weight 73.936 kg BP 108/44 L Blood Pressure Location Lt brachial Position Sitting Respiration 18 Pulse 86 Pulse Source Pulse Oximeter Temp 97.3 F Pulse Oximetry (%) 98 Oxygen Delivery Method Room Air Intake Visit Reasons: Cough Telephone Plant Power Operator Required: No Accompanied by: Self / Same As Patient Allergies No Known Allergies Allergy (Verified 10/08/24 13:03) Tobacco use date assessed: 10/05/24 HPI HPI Comments History of Present Illness Details 83-year-old male with history of hyperte nsion, type 2 diabetes, hyperlipidemia, paroxysmal atrial fibrillation, CKD stage 3, lymphoma s/p bone marrow transplant, and BPH presents to the office for follow-up. He was treated at the ER about 3 weeks ago due to shortness of breath and found to have CHF ex acerbation COPD exacerbation triggered by parainfluenza virus. He is on Lasix and denies any weight gain or edema. At that time he was admitted and treated with IV lasix and IV steroids. Discharged on prednione and doxy. Has presented to the office 2 additional times. Repeat cxr negative for pneumonia, no volume overload. Has been treated with addional prednisone taper, on 2 courses of doxycycline. He continues to report productive cough with green sputum production that is persistent. There is pleuritic chest pain. Denies any dyspnea. No retrosternal chest pressure, no fevers, chills. He does have a significant smoking history, smoked 2 packs per day but quit at age 53. ROS: Negative except for that mentioned in the HPI EXAM: Constitutional - Awake and Alert, No apparent distress Eyes - PERRL Cardiovascular - S1S2, RRR, No edema Respiratory - Normal lung expansion, Normal respiratory effort, cta Chest-no reproducible tenderness to palpation Extremities - no calf tenderness bilaterally, no swelling Skin - Warm/Dry Neurological - Alert & oriented x3 Psychological - Appropriate affect [facility] Medical History (Updated 10/08/24 @ 13:19 by DANIELLE Graham) GONGORA (dyspnea on exertion) Aortic stenosis Anemia of chronic disease CKD (chronic kidney disease) PAD (peripheral artery disease) COPD (chronic obstructive pulmonary disease) HFrEF (heart failure with reduced ejection fraction) NK/T-cell lymphoma Atrial fibrillation Hyperlipidemia Diabetes mellitus HTN (hypertension) Rotator cuff tendonitis Surgical History (Updated 09/29/24 @ 13:54 by DANIELLE Graham) S/P bone marrow transplant History of colonoscopy (~01/19/18) History of surgery Social History Patient Tobacco Use Status: Former Tobacco user Tobacco use type: Cigarette e-Cigarette/Vaping Use: Never Used Questionnaire Thrive Questionnaire Date Thrive assessed: 09/28/24 AUDIT C Alcohol Use Questionnaire (AUDIT-C) 1. How often do you have a drink containing alcohol?: Never Total Score: 0 TANNER-7 AMB Questionnaire TANNER-7 Date TANNER - 7 assessed: 09/28/24 Source: Developed by Drs. Dean Dent, Sara Thomas, Ricky Alonso and colleagues, with an educational brody from [employer]. Physical exam (Primary Care) Vital Signs: Last Vital Signs Temp 97.3 F 10/05/24 10:39 Pulse 86 10/05/24 10:39 Resp 18 10/05/24 10:39 BP 108/44 L 10/05/24 10:39 Pulse Ox 98 10/05/24 10:39 Oxygen Delivery Method Room Air 10/05/24 10:39 Tobacco/Smoking Status: Tobacco use Status Tobacco use date assessed 10/05/24 10/05/24 10:38 Patient Tobacco Use Status Former Tobacco user 10/05/24 10:41 Tobacco use type Cigarette 10/05/24 10:41 e-Cigarette/Vaping Use Never Used 10/05/24 10:41 Thrive Assessment: Date of Thrive Assessment Date Thrive assessed 09/28/24 10/05/24 10:38 Coding Level of Care Code Est Pt Level 4 (13299) Diagnoses Persistent cough for 3 weeks or longer R05.3 COPD (chronic obstructive pulmonary disease) J44.9 Assessment & Plan Assessment & Plan (1) Persistent cough for 3 weeks or longer: Code(s): R05.3 - Chronic cough Category: Medical Plan: Repeat chest x-ray ordered. Will trial Augmentin 875 mg twice daily. He is given course of Robitussin AC to take as needed for cough. Continue rescue inhalers as needed. Continue Advair (2) COPD (chronic obstructive pulmonary disease): Code(s): J44.9 - Chronic obstructive pulmonary disease, unspecified Category: Medical Plan: No current exacerbation. Continue Advair Plan Follow up in the office as needed. Chest x-ray ordered Orders: Orders XR chest 2V 10/05/24 R05.3 - Chronic cough
[2024-10-05 10:39] VITALS: BP 108/44; PULSE 86; RESP 18; TEMP 36.3; O2SAT 98
--- OUTSIDE RECORDS SUMMARY | 2024-10-05 11:49 | XMS_ITS | Encounter Summary ---
Author Organization [facility] Address [address] [place] [address] Care Team Providers Care Industrial Twisting Machine Operator Name Role Phone Donte Powell MD Primary Care Provider [phone] Encounter Details Date Type Department Care Team (Late st Contact Info) Description 05/29/2024 Lab Requisition [facility] - Main Lab [address] [facility] [place] [address] Ross Saul MD [address] [place] [address] Unspecified atrial fibrillation (CMS/HCC V24, [...] [facility] - 06/03/2024 6:05 AM EDT Test(s) 159675-Mjbeyiwyp GI; 657436-Lidqzpfjb GII was developed and its performance characteristics determined by [facility]. It has not been cleared or approved by the Food and Drug Administration. Ross Saul MD LAB MICROBIOLOGY - GENERAL ORDE [facility] Final Result Performing Organization Address City/[facility]/ZIP Co de Phone Number [facility] * - Miscellaneous Test (05/29/2024 1:45 PM EST) Miscellaneous Test COMMENT 2024 6:05 AM EDT [facility] Stool 05/29/2024 1:45 PM EST 05/29/2024 6:13 PM EST Narrative [facility] - 06/03/2024 6:05 AM EDT Performed At: [address] [id number] Cody Paul MD Ph:[phone] Performed At: 02 [facility] [place] [address] [place] [address], [address] [place] [id number] Jordan Aquino MD Ph:[phone] Ross Saul MD LAB BLOOD ORDERABLES Final Resu lt Performing Organization Address City/[facility]/ZIP Co de Phone Number [facility] documented in this encounter Visit Diagnoses Diagnosis Unspecified atrial fibrillation (CMS/HCC V24, CMS/HCC V28) Diarrhea, unspecified documented in this encounter Additional Health Concerns Infection Onset Date Last Indicated Resolved Time Norovirus 05/29/2024 05/29/2024 documented as of this encounter Care Teams Industrial Twisting Machine Operator Relationship Specialty Start Date End Date Donte Powell MD [address] [place] [address] Dr Rl [place] PCP - General Internal Medicine 09/21/18 documented as of this encounter
--- OUTSIDE RECORDS SUMMARY | 2024-10-05 11:49 | XMS_ITS | Clinical Summary ---
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 [address] [place] [id number] Health Maintenance Due Date Last Done Comments [...] Years Completed 10/19/2018, 10/16/2016, 11/19/2011 Insurance Medicare [facility] Care Teams Supervisor Plating And Point Assembly Relationship Specialty Start Date End Date Donte Powell MD [address] [place] GHOSH PCP - General Internal Medicine 05/26/24
--- OUTSIDE RECORDS SUMMARY | 2024-10-05 11:49 | XMS_ITS | Patient Health Record ---
Author Organization [facility] Address [address] [place] [address] Care Team Providers Care Claims Examiner Name Role Phone Andre (RETIRED) Donte PALACIO Primary Care Provide r Unavailable Dean Payan Unavailable [phone] Allergies Allergen (clinical drug ingredient) Drug/Non Drug [...] Problem Status W/U Status Risk Notes Problem 605371512 Encounter for screening for malignant neoplasm of colon (Z12.11) Active confirmed Problem 164368392 History of adenomatous polyp of colon (Z86.010) Active confirmed Problem 674402342 Anticoagulant long-term use (Z79.01) Active confirmed Plan Of Treatment Future Test Test Name Order Date COLONOSCOPY 06/11/2013 COLONOSCOPY 11/27/2017 Insurance Providers Payer Name Payer Address Payer Phone Subscriber Number Group Number Insured Name Patient Relationship to Insured Coverage Start Date Coverage End Date MEDICARE OF [facility] [address] [facility] [place] [address] [id number] TONY CASTELLON Self - patient is the insured [employer] 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 Parsons--in remission A.fib Denies NH,CVA,renal disease Pancreatitis in 1997 PVD--s/p LE bypass as below Started Nexium during his lymphoma treat ments--no real sx of GERD COPD Surgical History Surgery Date(Month/Year) Vascular surgeries and angioplasties on the left leg Appy 194 Perianal fistula and hemorroid repair 20 Cataract left and right 2008
--- OUTSIDE RECORDS SUMMARY | 2024-10-05 11:49 | XMS_ITS | Patient Health Record ---
Author Organization Dean Parsons III, MD Address [address] [place] [address] Care Team Providers Care Ham Smoker Name Role Phone Donte Powell MD Primary Care Provider Dean Hopson Unavailable [phone] Allergies Allergen (clinical drug ingredient) Drug/Non Drug Allergy documented on EMR Reaction Allergy Type Onset Date Status Shellfish (FN) Shellfish-derived Products Throat closes Drug Allergy Active almond allergenic extract [place] (Diagnostic) Unknown Drug Allergy Active warfarin Warfarin Sodium rash Drug Allergy A ctive Results Component Value Reference Range Notes Complete Blood Count Auto Di ff Reviewed date:04/18/2024 04:55:04 PM Interpretation: Performing Lab:[facility], [address] [place] [phone] Notes/Report: White Blood Count 4.6 4.8-10.8 X10*3/uL [...] NRBC Abs Auto 0.000 0.0-0.012 X10*3/uL Comprehensive [place]. Panel Fa Reviewed date:04/18/2024 04:55:04 PM Interpretation: Performing Lab:[address] [address] Notes/Report: Sodium 135 135-145 mmol/L Potassium 4.1 [...] Panel Reviewed date:04/18/2024 04:55:04 PM Interpretation: Performing Lab:[address] [address] Notes/Report: Triglycerides 106 <150 mg/dL Desirable Triglyceride: [...] B12 Reviewed date:04/18/2024 04:55:04 PM Interpretation: Performing Lab:[facility], [address] [place] [phone] Notes/Report: Vitamin B12 725 200-900 pg/mL NORMAL 200-900 PG/ML INDETERMINATE 160-199 PG/ML DEFICIENT < 160 PG/ML Microalbumin, Random Reviewed date:04/18/2024 04:55:04 PM Interpretation: Performing Lab:[facility], [address] [place] [phone] Notes/Report: Creatinine Urine 45.72 Microalbumin Urine < 5.0 Microalbum/Creatinine Ratio Ur TNP <30 ug/mg cr Unable to calculate albumin/creatinine ratio due to low microalbumin or creatinine result. Hemoglobin A1c Reviewed date:04/18/2024 04:55:04 PM Interpretation: Performing Lab:[facility], [address] [place] [phone] Notes/Report: Hemoglobin A1c % 8.2 <6.0 % [...] average glucose, using the formula of the A9L-Asetovq Average Glucose study (ADAG), Diabetes Care, Vol.31,#8, Oct. 2007 XR chest 2V Reviewed date:04/18/2024 04:55:04 PM Interpretation: Performing Lab: Notes/Report: [address] [address] XRay Report Signed Patient: Joel Logan Jr MR#: [id number] : 1940 Acct:[id number] Age/Sex: 83 / M ADM Date: 04/14/24 Loc: [facility] Attending Dr: Dean Parsons MD Ordering Physician: Dean Parsons MD Date of Service: 04/14/24 Procedure(s): XR chest 2V Accession Number(s): [id number] cc: Dean Parsons MD; Donte Powell MD [...] Familia Coronado MD 04/14/2024 08:33 AM EST Dictated By: Familia Coronado MD Signed By: <Electronically signed by Familia Coronado MD in OV> 04/14/24 0833 DD/ 0745 TD/TT: 04/14/24 0754 Band Bias Machine Operator: [address] [address] XRay Report Signed Patient: Joel Logan Jr MR#: [id number] : 1940 Acct:[id number] Age/Sex: 83 / M ADM Date: 04/14/24 Loc: [facility] Attending Dr: Dean Parsons MD Ordering Physician: Dean Parsons MD Date of Service: 04/14/24 Procedure(s): XR bernardo st 2V Accession Number(s): [id number] cc: Dean Parsons MD; Donte Powell MD [...] Familia Coronado MD 04/14/2024 08:33 AM EST Dictated By: Familia Coronado MD Signed By: <Electronically signed by Familia Coronado MD in OV> 04/14/24 0833 DD/ 0745 TD/TT: 04/14/24 0754 Band Bias Machine Operator: [facility] Reason For Referral No Information Medications Medication SIG (Take, Route, Frequency, Duration) Notes Start Date End Date Status NovoLOG FlexPen 100 UNIT/ML Subcutaneous Active B12 Folate Active Amiodarone HCl 200 MG Oral Active Atorvastatin Calcium 40 MG Oral Active Losartan Potassium 25 MG Oral Active Toprol XL 25 MG 1/2 tablet Orally On a day 06/18/2022 Active Lantus 100 UNIT/ML [...] Problem Status W/U Status Risk Notes Problem 4754980 Former smoker (Z87.891) Active confirmed He remains abstinent. He oglesby a planned to prevent relapse and times of stress and illness. Problem 814393983 Overweight (E66.3) Active confirmed His body mass index is 17. We discussed his diet and nutrition. We made a plan to lose weight at a rate of one half of a pound per week. Problem 00264364 Diabetes mellitu s (E11.9) Active confirmed His diabetes an d he is compliant with his treatment. No change in his regimen as necessary. Problem 923330405 Skin cancer (C44.90) Active confirmed The lesion on the left upper eyelid will be removed June 26, 2023. Problem 959811540 Chronic anticoagulation (Z79.01) Active confirmed He has had no bleeding on the Eliquis which he takes for atrial fibrillation. Problem 931694525 Lymphoma (C85.90) Active confirmed There is no sign of recurrent N/K T-cell lymphoma in any site at this time. Surveillance will continue at six-month intervals. He will return immediately for any symptoms of relapse. The nodular lesion on the right caodaism is in an area of previous disease but appears to be a basal cell. Problem 38688486 Essential hypertension (I10) Active confirmed His blood pressure is well controlled today and no change in his regimen was needed. Problem 76128019 Cataracts, bilateral (H26.9) Active confirmed He is nik g to have surgery October 23, 2022. Problem 96448316 Atrial fibrillation (I48.91) Active confirmed He is in a sinu s rhythm today with a rate of about 80. His cardiovascular status stable.. Problem 94565570 Hyperlipemia (E78.5) Active confirmed His lipids have been well controlled. No change in his regimen was needed. His statin therapy was continued. Problem 53628945 Peripheral vascular disease in diabetes mellitus (E11.51) [...] removed and the scar is healing. Problem 90901563 Acute kidney injury (N17.9) Active confirmed His BUN and creatinine are substantially elevated from baseline on the most recent blood work from the end of March. This was in the context of an episode of pneumonia. He has been referred back to primary care for management of the residual pneumonia and the renal function. 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 The nodular lesion on the right caodaism is in an area of previous disease but appears to be a basal cell. 05/04/2024 Diabetes mellitus (ICD-10 - E11.9) His [...] METABOLIC ) 2021 LIPID PANEL 10/10/2022 LDH 02/06/2023 LDH 05/28/2019 LDH 06/13/2017 LDH 05/29/2023 LDH 06/18/2019 LDH 2021 LDH 10/10/2022 LDH 06/16/2018 LDH 06/18/2021 LDH 12/13/2016 LDH 12/16/2017 LDH 06/16/2020 LDH 12/17/2019 PSA, TOTAL SCREEN 2021 CBC w DIFF 12/17/2019 CBC w DIFF 02/06/2023 CBC w DIFF 05/28/2019 CBC w DIFF 06/13/2017 CBC w DIFF 05/29/2023 CBC w DIFF 06/18/2019 CBC w DIFF 10/10/2022 CBC w DIFF 2021 CBC w DIFF 06/16/2018 CBC w DIFF 06/18/2021 CBC w DIFF 12/13/2016 CBC w DIFF 12/16/2017 CBC w DIFF 06/16/2020 SED RATE (ESR) 06/16/2020 SED RATE (ESR) 12/17/2019 SED RATE (ESR) 02/06/2023 SED RATE (ESR) 05/28/2019 SED RATE (ESR) 05/29/2023 SED RATE (ESR) 06/18/2019 SED RATE (ESR) 10/10/2022 SED RATE (ESR) 2021 SED RATE (ESR) 06/16/2018 SED RATE (ESR) 06/18/2021 XR CHEST 2 VIEW PA & LAT 12/16/2017 CBC WITH AUTO DIFF 10/02/2023 Lipid Panel 10/02/2023 Lipid Panel 02/06/2023 Vitamin B12 10/02/2023 Microalbumin, Random 10/02/2023 Hemoglobin A1c 10/02/2023 Hemoglobin A1c 02/06/2023 Next Appt Details Provider Name:Dean Parsons, 11/02/2024 02:30:00 PM, [address] [place] [address] DR, [address], [place], [address], Insurance Providers Payer Name Payer Address Payer Phone Subscriber Number Group Number Insured Name Patient Relationship to Insured Coverage Start Date Coverage End Date MEDICARE NGS [address] [place] [phone] [id number] Joel Clayton i Self - patient is the insured FOR LIFE [address] [place] [address] [id number] Joel Clayton i Self - patient is [...] and aspirate autologous stem cell transpl ant [facility] left femoral popliteal bypass surgery 2013 vascular bypass surgery left lower extre mity 12/2014 angioplasty left leg [facility] 2017 skin cancer removed from ear 2019 Basal cell carcinoma of face 2021 No history Hospitalization History Reason Date(Month/Year) No history
--- OUTSIDE RECORDS SUMMARY | 2024-10-05 11:49 | XMS_ITS | Encounter Summary ---
Author Organization [facility] Address [address] [place] [address] Care Team Providers Care Flight Operations Engineer Name Role Phone Donte Powell Primary Care Provider [phone] Encounter Details Date Type Department Care Team (Late st Contact Info) Description 03/21/2020 Orders Only [facility] [address] [place] [address] Violeta Plascencia, PharmD [address] [place], [place] [phone] Social History Tobacco Use Types Packs/Day Years [...] on filedocumented in this encounter Care Teams Flight Operations Engineer Relationship Specialty Start Date End Date Donte Powell [address] [place] [address] dr [place], [place] [address] PCP - General 10/10/16 documented as of this encounter
== END 2024-10-05 11:07 | disposition home or self-care (01) ==
LOC: HO.HMCHD 10:33
PROVIDERS: PCP Physician Assistant; Visit Provider Physician Assistant
DX: R05.3 Chronic cough (principal); J44.9 Chronic obstructive pulmonary disease, unspecified

== ENCOUNTER 2024-10-05 10:32 | Outpatient (REF) | payer MEDICARE, OTHER, SELFPAY ==
--- NOTE | ~2024-10-05 | XR_ITS ---
EXAMINATION: XR CHEST CLINICAL INFORMATION: R05.3 - Chronic cough COMPARISON: April 14, 2024. TECHNIQUE: 2 views of the chest were obtained. FINDINGS: Pulmonary reticular pattern. No consolidation, pleural effusion or pneumothorax. Cardiomediastinal silhouette size is mildly prominent, unchanged. Metallic electrode leads in the right atrium likely coronary sinus. Status post stenting ascending thoracic aorta/aortic valve. Metallic pacemaker reservoir in the anterior upper left hemithorax. Degenerative changes in the acromioclavicular joints. Multilevel thoracolumbar spondylosis. S-shaped curvature of the thoracolumbar spine. Osteopenia versus osteoporosis. XR/XR chest 2V IMPRESSION: Chronic interstitial lung disease. Multilevel spondylosis. Status post stenting ascending thoracic aorta/aortic valve. Electronically signed by: Samuel Barone MD 10/05/2024 11:47 AM EDT
== END 2024-10-05 10:33 | disposition home or self-care (01) ==
LOC: HO.XRAY 10:32
PROVIDERS: PCP Physician Assistant; Visit Provider Physician Assistant
DX: R05.3 Chronic cough (principal); J44.9 Chronic obstructive pulmonary disease, unspecified
CPT/HCPCS: 71046; 99212

== ENCOUNTER → 2024-10-05 11:20 | Outpatient (BNV) | payer MEDICARE, OTHER, SELFPAY | PROVIDERS: PCP Physician Assistant; Visit Provider Radiology Diagnostic Radiology | DX: J84.9 Interstitial pulmonary disease, unspecified (principal); M43.05 Spondylolysis, thoracolumbar region | CPT/HCPCS: 71046 ==

== ENCOUNTER 2024-10-08 13:02 | Outpatient (AMB) | payer MEDICARE, OTHER, SELFPAY ==
--- OUTSIDE RECORDS SUMMARY | 2024-10-05 10:00 | XMS_ITS | Encounter Summary ---
Author Name [facility] [place] [facility] [place] Organization [facility] [place] Address [address] [place] [id number] Care Team Providers Care Psychologist Engineering Name Role Phone ABAD RUSSELL Primary Care [...] PART A Nov 22, 2006 PART A [id number] TONY LOGAN PATIENT MEDICARE (WNR) MEDICARE (M) PART B Nov 22, 2006 PART B [id number] TONY LOGAN PATIENT MEDICARE (WNR) MEDICARE (M) PART A Nov 22, 2006 PART A [id number] TONY LOGAN PATIENT MEDICARE (WNR) MEDICARE (M) PART B Nov 22, 2006 PART B [id number] TONY LOGAN PATIENT FOR LIFE TFL* Apr 20, 2014 [id number] SUKHJINDER LOGAN JR PATIENT Selected Encounter This section includes the information on record at [place] for the Encounter. Date/Time Encounter Type Encounter Description Reason Provider Source Oct 05, 2024 02:00 PM DIAB MANAGE TRN [facility] ICD-10-CM E11.8 Type 2 diabetes mellitus with unspecified complications ROBB ROSAS [facility] Encounter Template Text not used by [place] Assessments - Encounter Diagnoses This section includes the primary and secondary diagnoses documented for the Encounter. Date/Time Primary/Secondary Diagnosis Diagnosis Name Provider Source Oct 06, 2024 12:22 PM PRIMARY Type 2 diabetes mellitus with unspecified complications ROBB ROSAS [facility] Plan of Treatment: Future Appointments (+ 6 months) and Future Tests (+/- 45 days) The Plan of Treatment section includes future care activities for the patient from [facility] [place] [facility]. This section includes future appointments and future orders which are active, pending or scheduled. Future Appointments This section includes appointments that were scheduled to occur 6 months from the date of the Encounter, up to a maximum of 20 appointments. The data comes from all [place] treatment facilities. Appointment Date/Time Appointment Type Appointme nt Facility Name Oct 20, 2024 02:00 PM AMBULATORY - MEDICINE [facility] Oct 20, 2024 03:00 PM [facility]ULATORY MEDICINE [facility] [place] [facility] Jan 10, 2025 01:00 PM AMBULATORY MEDICINE [facility] [place] [facility] Mar 09, 2025 02:00 PM AMBULATORY - MEDICINE [facility] Lab Results: +/- 30 days of the [...] Unit Interpretation Reference Range Specimen Type Comment Oct 04, 2024 10:56 AM [facility] HEMOGLOBIN A1C PANEL BLOOD Specimen Type: BLOOD Comment: Values obtained from A1C measurements can vary. For atypical A1C assays, a reported value of 7.0 could actually be between 6.72 and 7.28 if measured by a reference method. A reported value of 9.0 could actually be between 8.73 and 9.27. Ref: http://www.ngsp .org/CAPdata.as p Ordering Provider: VICTORINA TIRADO Report Released Date/Time: Aug 25, 2024 01:48 PM Reporting [facility]: [facility] [place] [facility] [address] [facility] [address] Performing Lab: [place] [facility] [facility] [address] [facility] [address] HEMOGLOBIN A1C 7.0 H 4.0-5.6 Oct 04, 2024 10:56 AM [facility] CREATININE (eGFR 2020) SERUM Specimen Type: S OVIDIO No comment entered. Ordering Provider: VICOTRINA TIRADO Report Released Date/Time: Aug 25, 2024 01:48 PM Reporting Lab: [facility] [place] [facility] [address] [facility] [address] Performing Lab: [facility] [address] [address] CREATININE, Serum 1.60 mg/dL H 0.72-1.25 eGFR(CKD-EPI 2020) 42 mL/min L >60 Oct 04, 2024 10:56 AM [facility] MICROALBUMIN CREATININE RATIO PANEL URINE Spe cimen Type: URINE No comment entered. Ordering Provider: VICTORINA TIRADO Report Released Date/Time: Aug 25, 2024 01:48 PM Reporting Lab: [facility] [place] [facility] [address] [facility] [address] Performing Lab: [facility] [address] [address] MICROALBUMIN/CREATININE RATIO canc mg/g 0-29.9 MICROALBUMIN,QUANTITATIVE <0.5 mg/dL RR UNAVAIL CREATININE URINE 20.25 mg/dL L 63-166 Vital Signs: All taken on the encounter date This section contains inpatient and outpatient Vital Signs collected on the date of the Encounter. Date/Time Temperature Pulse Blood Pressure Respiratory Rate SP02 Pain Height Weight Body Mass Index Source Oct 05, 2024 02:40 PM 162.7 lb 26 [facility] Social History: Smoking Status (Most current) [...] Date/Time Current Smoking Status Comment Robby it Jan 06, 2024 09:30 AM VA-TOBACCO FORMER USER [place] [facility] [place] [facility] Tobacco Use History This section includes a history of the smoking, or tobacco-related health factors, that were collected on or before the date of the Encounter. The data comes from the [place] facility where the Encounter took place. Date/Time Smoking Status/Tobac co Use Comment Facility Jan 06, 2024 09:30 AM VA-TOBACCO QUIT 15 YRS OR MORE [facility] [place] [facility] Dec 24, 2022 10:30 AM VA-TOBACCO FORMER USER [place] [facility] [place] [facility] Dec 24, 2022 10:30 AM VA-TOBACCO QUIT 15 YRS OR MORE [facility] [place] [facility] Dec 24, 2021 10:00 AM VA-TOBACCO FORMER USER [facility] [place] [facility] Dec 24, 2021 10:00 AM VA-TOBACCO QUIT 5 TO < 15 YRS [facility] [place] [facility] Dec 14, 2020 08:30 AM VA-TOBACCO FORMER USER [facility] [place] [facility] Dec 14, 2020 08:30 AM VA-TOBACCO QUIT 5 TO < 15 YRS [facility] [place] [facility] Nov 15, 2019 11:00 AM VA-TOBACCO FORMER USER [facility] [place] [facility] Nov 15, 2019 11:00 AM VA-TOBACCO QUIT 5 TO < 15 YRS [facility] [place] [facility] Oct 20, 2017 08:19 AM VA-TOBACCO FORMER USER [facility] [place] [facility] Oct 20, 2017 08:19 AM VA-TOBACCO QUIT 5 TO < 15 YRS [facility] [place] [facility] Sep 04, 2017 11:09 AM QUIT TOBACCO USE > 7 YEARS AGO [facility] [place] [facility] Oct 16, 2016 09:08 AM QUIT TOBACCO USE > 7 YEARS AGO [facility] [place] [facility] Feb 20, 2015 10:58 AM QUIT TOBACCO USE > 7 YEARS AGO quit 2009-cigarettes and cigars for 45 years [facility] Advance Directives: All historical and current [...] Mar 23, 2014 ADVANCE DIRECTIVE ROSALINDA SHELBY [facility] Encounter Notes: All associated encounter notes This section contains the clinical notes associated to the Encounter. Date/Time Encounter Note(s) Provider Source Oct 06, 2024 12:23 PM DIABETOLOGY NOTE: LOCAL TITLE: INSULIN PUMP/CGM DOWNLOAD (T) STANDARD TITLE: DIABETOLOGY NOTE DATE OF NOTE: OCT 06, 2024@12:23 ENTRY DATE: OCT 06, 2024@12:23:21 AUTHOR: DOUGLAS ROSAS EXP COSIGNER: URGENCY: STATUS: COMPLETED Please select: Personal Continuous Glucose Monitor Date of Documentation:Sep Please see attached scanned document in [employer] [facility]. DX: Type 2 diabetes Sensor: Devon 3 /es/ DOUGLAS ROSAS RN,BSN, [facility] DIABETES ASSOCIATE PRODUCER, RN Signed: 10/06/2024 12:23 DOUGLAS ROSAS [facility] Oct 05, 2024 01:58 PM DIABETOLOGY EDUCATION NOTE: LOCAL TITLE: DIABETES EDU FOLLOW UP STANDARD TITLE: DIABETOLOGY EDUCATION NOTE DATE OF NOTE: OCT 05, 2024@13:58 ENTRY DATE: OCT 05, 2024@13:58:08 AUTHOR: DOUGLAS ROSAS EXP COSIGNER: URGENCY: STATUS: COMPLETED DIABETES EDU FOLLOW UP Has ADDENDA FOLLOW UP DIABETES EDUCATION VISIT Demographics: Patient Name: TONY LOGAN JR Age: 83 Sex: MALE Race: WHITE MARITAL STATUS - Introduction: Portis identified with 2 identifiers: [X] Full Name [X] Date of [ ] Address [ ] VA ID Card PATIENT PHONE - PHONE NUMBER [CELLULAR] - Is patient phone number correct, if not, enter below: Portis's phone number: TONY LOGAN JR [address] [facility] [address] [place], [place], [address] MOST RECENT LABS: HEMOGLOBIN A1C TREND Collection DT Spec HGBA1c 10/04/2024 10:56 BLOOD 7.0 H 06/30/2024 10:09 BLOOD 6.4 H 03/29/2024 08:38 BLOOD 8.1 H 11/05/2023 07:31 BLOOD 8.1 H 08/06/2023 07:31 BLOOD 7.7 H CHEM 7 TREND LAB CUMULATIVE SELECTED Collection DT Spec GLUCOSE BUN CREATIN Sodium K+/Pot CL CO2 10/04/2024 10:56 SERUM 1.60 H 06/30/2024 10:10 SERUM 113 H 24 1.64 H 136 4.3 104 24 03/29/2024 08:38 SERUM 131 H 52 H 1.78 H 138 4.1 104 24 01/29/2024 09:49 SERUM 1.86 H 11/11/2023 09:05 SERUM 412 H 39 H 1.99 H 132 L 4.6 101 19 L LAB CUMULATIVE SELECTED 2 No selection items chosen for this component. CHEM 7 Results Collection DT Spec Sodium K+/Pot CL CO2 GLUCOSE BUN 06/30/2024 10:10 SERUM 136 4.3 104 24 113 H 24 03/29/2024 08:38 SERUM 138 4.1 104 24 [...] Spec CHOL HDL CHO/HDL LDL-d LDL-c TRIG 06/30/2024 10:10 SERUM 89 31 L 2.9 42 80 03/29/2024 08:38 SERUM 99 36 L 2.8 47 78 11/05/2023 07:31 SERUM 140 49 2.9 72 94 05/05/2023 07:48 SERUM 86 31 L 2.8 40 74 06/19/2022 07:36 SERUM 119 33 L 3.6 61 126 CREATININE-EGFR 10/04/24 10:56 1.60 H 06/30/24 10:10 1.64 H 03/29/24 08:38 1.78 H EGFR - NONE FOUND WEIGHT: 177.4 lb [80.47 kg] (07/26/2024 16:35) HEIGHT: 66 in [167.6 cm] (11/13/2023 09:26) BMI: 28.7 REASON FOR EDUCATION VISIT TODAY: Diagnosed with Type 2 diabetes since 1981. He was in his 30s when diagnosed. Currently using the Devon 3 sensor. Recent health history: Has a cough that developed 3 weeks ago. Was in the hospital from September 18 until September 21. He was told that he might have pneumonia or a virus. Had Xray's done today. New meds recently prescribed: Prednisone 10 mg, taking 2 tabs per day. Benzonate 100 mg, once a day Trazadone 50 mg,1/2 tab at bedtime (not working because he cannot lie down and his chest hurts). He is also very weak. NAME OF REFERRING PROVIDER: Dr. Butts Source [...] was no money to buy more? No, [facility] [employer] [place] in [place] offers a bag of groceries for Veterans. He seeks out help when he needs it. Breakfast (8 am): oatmeal or other cereals (special K) with milk or eggs with sausage and 1 slice of toast; instead of coffee, having tea. Lunch (12 pm): make his own soup with crackers or 1/2 sandwich, water Dinner (4 pm): tea and pasta or beans or chicken, pork chops, beef, ham, frozen vegetables (avoids processed meats); sometimes brown rice, potatoes Snacks: chips (not often), peanuts, popcorn (pops his own popcorn), Beverages consumed: not drinking alcohol, water, tea, coffee, milk Goal weight desired: lbs He has lost weight, about 15 lbs. Today's weight was 162.7 lbs. Has a decreased appetite. SLEEP Typical sleep pattern: Not sleeping well, has to sleep in chair because he will keep coughing if he lays down. Was taking meds to sleep and one pill caused anxiety and 1 pill caused nose bleeding. Bedtime: 9 pm. Waketime: 4-5 am. Naps: not napping much. Comments: PHYSICAL ACTIVITY Type: Level: Frequency: Duration: Limitations: Not active, due to lung infection. Has PT coming tomorrow and VNA also coming. DIABETES MEDICATIONS Glargine 14 units once a day, if glucose is below 200 mg/dl at bedtime, will take 9 units instead. Does not change the dose in the morning often. Aspart 13 units for eggs, 15 units for cereal AM, 6 units noon, 8 units dinner Adherence: Sometimes, he might forget and will take it after he eats. May forget lunch or dinner. STORAGE OF INSULIN/OTHER INJECTABLES: INJECTIONS SITES: abdomen SITES VIEWED: No ANY EVIDENCE OF LIPOHYPERTROPHY: no, just bruising History of hypoglycemia: Had 1 low glucose today and felt symptoms. Not happening often. Symptoms: Feels sweating, shaking, Frequency: Typical treatment: glucose tablets 3-4 Medic ID: Has one from [place] Glucagon kit: No MONITORING Using the Devon 3 sensor. Downloaded the single pointed operator today: Name: Tony Logan Date of : 1940 Report Period: 09/08/2024 - 10/05/2024 (28 days) Generated: 10/05/2024 Time CGM Active: 99% Glucose Statistics and Targets Average Glucose: 209 mg/dL Glucose Management Indicator (GMI): 8.3% Glucose Variability (%CV): 32.1% Target Range: 70 - 180 mg/dL Time in Ranges Very High: >250 mg/dL --- 26% High: 181 - 250 mg/dL --- 36% Target Range: 70 - 180 mg/dL --- 38% Low: 54 - 69 mg/dL --- 0% Very Low: <54 mg/dL --- 0% The main pattern noted are elevated glucose between the hours of 6 am until 2:30 am. Portis is elevated particularly after breakfast and dinner. No pattern of hypoglycemia. Download from July of 2024: Name: Tony Logan Date of : 1940 Report Period: 06/28/2024 - 07/25/2024 (28 days) Generated: 07/26/2024 Time CGM Active: 98% Glucose Statistics and Targets Average Glucose: 151 mg/dL Glucose Management Indicator (GMI): 6.9% Glucose Variability (%CV): 30.8% Target Range: 70 - 180 mg/dL Time in Ranges Very High: >250 mg/dL --- 3% High: 181 - 250 mg/dL --- 21% Target Range: 70 - 180 mg/dL --- 75% Low: 54 - 69 mg/dL --- 1% Very Low: <54 mg/dL --- 0% The main trend noted are elevated glucose between the hours of 8 am until 12 pm and again between 6 pm until 12 am. The lower blood sugars are occurring the most between the hours of 1:30 am until 7 am. No other patterns noted. Aimee does have 75% in target range, 1% below 70 mg/dl, 21% above 181 mg/dl and 3% above 250 mg/dl. Overall, he is doing quite well with an A1C of 6.4% in June. Sensor Glucose What is your Time in Range (TIR) target? What is your target A1c? Diabetes related illnesses or hospitalizations in the past year? Comments: Had an aortic valve replacement via cardiac Cath in November of 2024 Had surgery in May of 2023 to implant pacemaker. Hospitalized in February for Rhino Virus and Pneumonia. Hospitalized for a blood clot in his left inner calf. Had surgery on both sides of his calf. The surgery was on May 22, 2024. Was at [facility] for 3 days and transferred to Rehab for 18 days at [facility]. DIABETES DISTRESS On a scale of 1-6 where 1 is no problem and 6 is a very serious problem, rate the following: Overwhelmed by diabetes: 4 Failing Diabetes: 4 DIABETIC-RELATED CHRONIC COMPLICATIONS EYES: Retinopathy- no Maculopathy- [...] time. Denied concerns Comments: Last seen by handle assembler in September. CARDIOVASCULAR/CEREBROVASCU LAR Pain/palpitations- no, has a heart murmur Angina pectoris Myocardial infarction- No Hypertension- being treated Hyperlipidemia- being treated TIA- no Stroke (CVA)- no Denied concerns Comments: Aortic valve replacement and pacemaker installed. Last seen by traffic or system dispatcher last week. 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 Follow up every year. Every appointment he [...] ASSESSMENT: Kindly referred by Dr. Butts. Aimee is using the Devon 3 sensors now. Aimee has been sick recently with a lung infection and cough. He has been checked for COVID several times and it is always negative. Aimee's last A1C was 7.0% in September. He also was started on prednisone for his cough, therefore, he has noticed that his blood sugars are higher recently. He was encouraged to increase his doses of Novolog before Breakfast and dinner. With breakfast he is taking 13-15 units depending upon what he is eating, therefore, he was told to increase it to 14-16 units instead and at dinner time, he is currently taking 8 units and was encouraged to increase it to 9 units. Encouraged return in December to see Diabetes Education and has a follow up with Pharmacy in September. Learning limitations/special education needs: No Barriers to learning: Visual Auditory Literacy Language X None Cultural influences: No Health beliefs/attitudes/feelings about diabetes: No Readiness to learn: Yes Will significant other participate in program? No TEACHING MATERIALS GIVEN: EDUCATION: -Reviewed sensor download in detail. -Reviewed pattern management and insulin adjustment. -Reviewed how to add in doses of insulin so it appears on the sensor download. INSTRUCTIONS: -Continue to check glucose with sensor. -Use the meter to check blood sugar with finger anytime you feel different from the sensor reading. -Glargine 14 units once a day, if glucose is below 200 mg/dl at bedtime, will take 9 units instead. -Increase Aspart 14 units for eggs, 16 units for cereal AM, 8 units noon, 10 units dinner -Please call with any questions or concerns. -Follow up with Diabetes Education in Dec and follow up with Pharmacy in September. Patient/Family Verbalized Understanding FUTURE APPOINTMENTS: 10/05/2024 14:00 [facility] DM EDUC RN 1 10/20/2024 14:00 [facility] PHARM PACT 3 10/20/2024 15:00 [facility] PODIATRY NAIL 03/09/2025 14:00 [facility] OPTOMETRY 3 07/07/2025 13:00 [facility] PACT 7 BOROUGH COORDINATOR DM type is : Type 2 diabetes Length of Visit: 60 minutes /jus/ DOUGLAS ROSAS RN,BSN, [facility] DI[facility] ASSOCIATE PRODUCER, RN Signed: 10/06/2024 12:22 Receipt Acknowledged By: * AWAITING SIGNATURE * MIAH BUTTS 10/07/2024 06:59 /es/ Abad Russell DNP, JIGSAWYER-BC, CNL Primary Care Nurse Practitioner * AWAITING SIGNATURE * VICTORINA TIRADO 10/07/2024 ADDENDUM STATUS: COMPLETED Review assessment, there was an error in charting that should be replaced with: -Continue Glargine 14 units once a day, if glucose is below 200 mg/dl at bedtime, will take 9 units instead. -Increase Aspart 14 units for eggs, 16 units for cereal AM, 6 units noon, 9 units with dinner (both Breakfast and Dinner insulin were increased and lunch dose stays the same). Please ask with any further questions. /jus/ DOUGLAS ROSAS RN,BSN, [facility] DI[facility]ET[facility] ASSOCIATE PRODUCER, RN Signed: 10/07/2024 16:32 Receipt Acknowledged By: * AWAITING SIGNATURE * VICTORINA TIRADO [facility] P [facility]
--- NOTE | 2024-10-08 13:03 | A.OFFPC_ITS ---
Vital Signs 10/08/24 13:07 Weight 72.575 kg BP 118/50 L Blood Pressure Location Lt brachial Position Sitting Respiration 18 Pulse 90 Pulse Source Pulse Oximeter Temp 97.6 F Temp Source Temporal Artery Scan Pulse Oximetry (%) 97 Oxygen Delivery Method Room Air Intake Visit Reasons: 1 wk f/u, patient requested Friday Jet Dyeing Machine Tender Required: No Accompanied by: Self / Same As Patient Allergies No Known Allergies Allergy (Verified 10/08/24 13:03) Tobacco use date assessed: 10/05/24 HPI HPI Comments History of Present Illness Details 83-year-old male with history of hyperte nsion, type 2 diabetes, hyperlipidemia, paroxysmal atrial fibrillation, CKD stage 3, lymphoma s/p bone marrow transplant, and BPH presents to the office for follow-up. He was treated at the ER about 3 weeks ago due to shortness of breath and found to have CHF exacerbation COPD exacerbation triggered by parainfluenza virus. He is on Lasix and denies any weight gain or edema. He has actually lost about 15+ lb unintentionally over the last 2 months. At that time he was admitted and treated with IV lasix and IV steroids. Discharged on prednione and doxy. Has presented to the office 2 additional times. Repeat cxr negative for pneumonia, no volume overload. Has been treated with addional prednisone taper, doxy, and then augmentin which he has been taking. He continues with cough though feels it is improved. Still GONGORA and pleuritic cp. No fevers chills chest pressure, lightheadedness. He is a former smoker who quit about 30 years ago. He also tells me that he has a history of left footdrop but is now experiencing in the some right foot. Has PT coming next week. He is fine as long as he is walking slowly and does use cane or walker for longer distances. ROS: Negative except for that mentioned in the HPI EXAM: Constitutional - Awake and Alert, No apparent distress Eyes - PERRL Cardiovascular - S1S2, RRR, No edema Respiratory - Normal lung expansion, Normal respiratory effort, No respiratory distress, rhonchi left lower lobe and right upper lobe Chest-no reproducible tenderness to palpation Extremities - no calf tenderness bilaterally, no swelling Skin - Warm/Dry Neurological - Alert & oriented x3 Psychological - Appropriate affect [facility] Medical History (Updated 10/08/24 @ 13:19 by DANIELLE Graham) GONGORA (dyspnea on exertion) Aortic stenosis Anemia of chronic disease CKD (chronic kidney disease) PAD (peripheral artery disease) COPD (chronic obstructive pulmonary disease) HFrEF (heart failure with reduced ejection fraction) NK/T-cell lymphoma Atrial fibrillation Hyperlipidemia Diabetes mellitus HTN (hypertension) Rotator cuff tendonitis Surgical History (Updated 09/29/24 @ 13:54 by DANIELLE Graham) S/P bone marrow transplant History of colonoscopy (~01/19/18) History of surgery Social History Patient Tobacco Use Status: Former Tobacco user Tobacco use type: Cigarette e-Cigarette/Vaping Use: Never Used Questionnaire Thrive Questionnaire Date Thrive assessed: 09/28/24 TANNER-7 AMB Questionnaire TANNER-7 Date TANNER - 7 assessed: 09/28/24 Source: Developed by Drs. Dean Dent, Sara Thomas, Ricky Alonso and colleagues, with an educational brody from [employer]. Physical exam (Primary Care) Vital Signs: Last Vital Signs Temp 97.6 F 10/08/24 13:07 Pulse 90 10/08/24 13:07 Resp 18 10/08/24 13:07 BP 118/50 L 10/08/24 13:07 Pulse Ox 97 10/08/24 13:07 Oxygen Delivery Method Room Air 10/08/24 13:07 Tobacco/Smoking Status: Tobacco use Status Tobacco use date assessed 10/05/24 10/08/24 13:09 Patient Tobacco Use Status Former Tobacco user 10/08/24 13:09 Tobacco use type Cigarette 10/08/24 13:09 e-Cigarette/Vaping Use Never Used 10/08/24 13:09 Thrive Assessment: Date of Thrive Assessment Date Thrive assessed 09/28/24 10/08/24 13:09 Coding Level of Care Code Est Pt Level 4 (04057) Complex EM visit Add On G2211 Diagnoses Persistent cough for 3 weeks or longer R05.3 Unintentional weight loss R63.4 Assessment & Plan Assessment & Plan (1) Persistent cough for 3 weeks or longer: Code(s): R05.3 - Chronic cough Category: Medical Plan: Stat CT chest ordered given persistent cough as well as unintentional weight loss. Has not had significant improvement despite multiple courses of prednisone, 2 courses of doxycycline and then Augmentin. Recent chest x-ray reviewed negative for pneumonia. No wheezing on exam. No hypoxia. Does have rhonchi. Clinically euvolemic. However will check BNP and D-dimer. PE less likely given anticoagulation. He is referred to pulmonology as well (2) Unintentional weight loss: Code(s): R63.4 - Abnormal weight loss Category: Medical Plan: As above Plan Plan as above. To be adjusted as appropriate pending results of studies Orders: Orders CT chest wo IV con Today J44.9 - Chronic obstructive pulmonary disease, unspecified, R05.3 - Chronic cough, R06.09 - Other forms of dyspnea, R63.4 - Abnormal weight loss B Type Natriuretic Peptide Today J44.9 - Chronic obstructive pulmonary disease, unspecified, R05.3 - Chronic cough, R06.09 - Other forms of dyspnea D Dimer High Sensitivity Today J44.9 - Chronic obstructive pulmonary disease, unspecified, R05.3 - Chronic cough, R06.09 - Other forms of dyspnea Referrals Pulmonology Referral J44.9 - Chronic obstructive pulmonary disease, unspecified, R05.3 - Chronic cough, R06.09 - Other forms of dyspnea
--- OUTSIDE RECORDS SUMMARY | 2024-10-08 13:05 | XMS_ITS | Clinical Summary ---
Author Organization [facility] Address [address] [facility] [address] [place] [address] Phone Care Team Providers Care Talent Acquisition Sourcer Name Role Phone Donte Powell MD Primary Care Provider Allergies Active Allergy Reactions Criticality Noted Date Comments Shellfish Containing Products Anaphylaxis High 06/09 Warfarin 06/10/2023 Medications amiodarone (PACERONE) 200 MG tablet Take 200 mg by mouth 2 (two) times a day. Take one tab by mouth two times daily 4 Active apixaban (ELIQUIS) 2.5 mg Take 2.5 mg by mouth 2 (two) times a day. Take 1 pill two times daily 4 Active aspirin (ASPIRIN CHILDRENS) 81 mg chewable tablet Take 81 mg by mouth daily. 4 Active atorvastatin (LIPITOR) 40 MG tablet Take 40 mg by mouth daily. 4 Active fenofibrate (LOFIBRA) 54 MG tablet Take 108 mg by mouth daily. 4 Active ferrous sulfate 325 mg (65 mg alturas iron) tablet Take 325 mg by mouth daily with breakfast. 4 Active fluticasone propion-salmet Sayda (ADVAIR DISKUS) 250-50 mcg/dose DISKUS Inhale 250 mcg/actuation of fluticasone into the lungs 2 (two) times a day. 4 Active metoprolol tartrate (LOPRESSOR) 25 MG tablet Take 12.5 mg by mouth 2 (two) times a day. 4 Active terazosin (HYTRIN) 5 MG capsule Take 5 mg by mouth nightly at bedtime. 4 Active finasteride (PROSCAR) 5 mg tablet Take 5 mg by mouth 3 (three) times a week. Friday, Friday, Friday 4 Active furosemide (LASIX) 40 MG tablet Take 40 mg by mouth daily. 4 Active insulin aspart U-100 (NOVOLOG) 100 unit/mL (3 mL) injection pen Inject 16 Units under the skin daily. Inject 16u q am and 9u before lunch and 11u before supper 4 Active insulin glargine,hum.r ec.anlog (INSULIN GLARGINE SUBQ) Inject 11 Units under the skin 2 (two) times a day (once in the morning and once in the afternoon). 4 Active losartan (COZAAR) 50 MG tablet Take 50 mg by mouth daily. 4 024 Discontinu ed(Discont inued by another clinician) Encounters Date Type Department Care Team Description 09/27/2024 9:21 AM EDT - 09/27/2024 11:59 PM EDT Hospital Encounter [facility] [address] [place] [id number] Babak Rodriguez MD Discharge Disposition: Home or Self Care 09/27/2024 Transcribe Orders [facility] [address] [place] [id number] Babak Rodriguez MD Severe aortic stenosis (Primary Dx) 08/12/2024 Orders Only [facility] [address] [place] [address] Provider, MD Malik from Last 3 Months Social History Tobacco Use Types Packs/Day Years Used Date Smoking Tobacco: Never Assessed Home Health Assessment: Transportation Answer Date Recorded Lack of Transportation (Medical) No 12/24/2023 Lack of Transportation (Non-Medical) No 12/24/2023 Patient Unable or Declines to Respond No 12/24/2023 Education Answer Date Recorded Are you interested in more education? Not on zuleika e 07/19/2022 Are you concerned about learning? Not on file 07/19/2022 No 07/19/2022 No 07/19/2022 Digital Access Answer Date Recorded No 08/19/2022 No 08/19/2022 No 08/19/2022 Reliable internet access at home? Not on file 08/19/2022 Device with a working camera? Not on file Sex and Gender Information Value Date Recorded Sex Assigned at Not on file Legal Sex Male 10:11 PM EDT Gender Identity Not on file Sexual Orientation Not on file Last Filed Vital Signs Vital Sign Reading Time Taken Comments Blood Pressure 110/42 01/29/2024 9:40 AM EST Pulse 61 01/29/2024 9:40 AM EST Temperature 36.2 C (97.2 F) 12/24/2023 11:17 AM EDT Respiratory Rate 18 01/29/2024 9:40 AM EST Oxygen Saturation 97% 01/29/2024 9:40 AM EST Inhaled Oxygen Concentration - - Weight 79.4 kg (175 lb) 01/29/2024 9:40 AM EST Height 167.6 cm (5' 6 ) 01/29/2024 9:40 AM EST Body Mass Index 28.25 01/29/2024 9:40 AM EST Plan of Treatment Health Maintenance Due Date Last Done Comments ALT LEVEL (ALANINE AMINOTRANSFERASE) 1941 TSH LEVEL 1940 PNEUMOCOCCAL VACCINES (50+ years) (1 of 1 - PCV) 12/20/1991 RSV VACCINE (1 - 1-dose 75+ series) 2016 COVID-19 VACCINE ( - 2023-2 5 season) 2023 DEPRESSION SCREENING 01/28/2025 01/29/2024 CREATININE LEVEL 09/27/2025 09/27/2024, 12/04/2023 Adult Td,Tdap Booster 10/16/2026 10/16/2016 ZOSTER VACCINES Completed 11/15/2019, 04/08/2019 HEPATITIS A VACCINES Aged Out No long er eligible based on patient's age to complete this topic HIB VACCINES Aged Out No longer eligi ble based on patient's age to complete this topic MENINGOCOCCAL VACCINES (ACWY) Aged Out No longer eligible based on patient's age to complete this topic MENINGOCOCCAL VACCINES (B) Aged Out N o longer eligible based on patient's age to complete this topic Medical Devices Not on file Procedures Procedure Name Priority Date/Time Associated Diagnosis Comments FREE LIGHT CHAINS, SERUM Routine 09/27/2024 8:30 AM EDT Severe aortic stenosis CBC AND DIFFERENTIAL Routine 09/27/2024 8:30 AM EDT Severe aortic stenosis MONOCLONAL PROTEIN STUDY, SERUM Routine 09/27/2024 8:30 AM EDT Severe aortic stenosis BASIC METABOLIC PANEL Routine 09/27/2024 8:30 AM EDT Severe aortic stenosis from Last 3 Months Results * (ABNORMAL) Monoclonal protein study, serum (09/27/2024 8:30 AM EDT) M-protein GK Test component not applicable or not reported. g/dL [facility] M-protein GL 0.085(H) g/dL [facility] M-protein AK Test component not applicable or not reported. g/dL [facility] DR M-protein AL Test component not applicable or not reported. g/dL [facility] DR M-protein MK Test component not applicable or not reported. g/dL [facility] DR M-protein ML Test component not applicable or not reported. g/dL [facility] DR Glycosylation Test component not applicable or not reported. [facility] Flag, M-protein Isotype Positive(A) Negative [facility] QMPTS Interpretation SEE NOTE [facility] Comment: (NOTE) IgG lambda 0.085 g/dL Suggest Immunoglobulin Free Light Chains, Serum. ADDITIONAL INFORMATION The submitted sample was assayed by five separate immunopurifications for IgG, IgA, IgM, kappa and lambda. The result reflects the findings of either no monoclonal protein detected or those monoclonal immunoglobulins that were detected. This test was developed and its performance characteristics determined by [facility] in a manner consistent with CLIA requirements. This test has not been cleared or approved by the U.S. Food and Drug Administration. IgA 632(H) 61 - 356 mg/dL [facility] IgM 283 37 - 286 mg/dL [facility] IgG 1,860(H) 767 - 1,590 mg/dL [facility] Therapeutic Antibody Administered? Unknown [facility] Comment:Corrected on 09/29 A T 1640: previously reported as Unknown Blood 09/27/2024 8:30 AM EDT 09/27/2024 9:27 AM EDT Babak Rodriguez MD LAB BLOOD ORDERABLES Edited Res ult - Final Performing Organization Address City/[facility] Co de Phone Number [facility] [place] [address] * (ABNORMAL) Free light chains, serum (09/27/2024 8:30 AM EDT) Wilder Free Light Chain 8.67(H) 0.3300 - 1.94 mg/dL [facility] Lambda Free Light Chain 8.55(H) 0.5700 - 2.63 mg/dL [facility] Wilder/Lambda FLC Ratio 1.01 0.2600 - 1.65 [facility] Blood 09/27/2024 8:30 AM EDT 09/27/2024 9:27 AM EDT Babak Rodriguez MD LAB BLOOD ORDERABLES Final Resu lt Performing Organization Address City/[facility]/ZIP Co de Phone Number [facility]/[address] [place] [address] * (ABNORMAL) CBC and differential (09/27/2024 8:30 AM EDT) WBC 8.29 4.00 - 11.00 K/uL [facility] RBC 3.11(L) 4.50 - 5.90 M/uL [facility] HGB 10.0(L) 13.5 - 17.5 g/dL [facility] HCT 32.3(L) 41.0 - 53.0 % [facility] PLT 195 150 - 450 K/uL [facility] MCV 103.9(H) 80.0 - 100.0 fL [facility] MCH 32.2(H) 27.0 - 31.0 pg [facility] MCHC 31.0(L) 32.0 - 36.0 g/dL [facility] Comment:Specimen warmed to 3 7 degrees C. Possible cold agglutinin present. RDW 17.5(H) 11.5 - 14.5 % [facility] MPV 11.9 8.4 - 12.0 fL [facility] NRBC 0.00 0.00 /100 WBCs [facility] ABSOLUTE NRBC 0.00 0.00 K/uL [facility] DIFF METHOD Auto [facility] NEUTS 82.4(H) 48.0 - 76.0 % [facility] LYMPHS 6.3(L) 18.0 - 41.0 % [facility] MONOS 9.4 4.0 - 11.0 % [facility] EOS 0.4 0.0 - 5.0 % [facility] BASOS 0.2 0.0 - 1.5 % [facility] Granulocytes, immature (%) 1.3(H) 0.0 - 0.9 % [facility] ABSOLUTE NEUTS 6.83 1.92 - 7.60 K/uL [facility] ABSOLUTE LYMPHS 0.52(L) 0.72 - 4.10 K/uL [facility] ABSOLUTE MONOS 0.78 0.16 - 1.10 K/uL [facility] ABSOLUTE EOS 0.03 0.00 - 0.50 K/uL [facility] ABSOLUTE BASOS 0.02 0.00 - 0.15 K/uL [facility] Granulocytes, immature 0.11(H) 0.00 - 0.09 K/uL [facility] Blood 09/27/2024 8:30 AM EDT 09/27/2024 9:27 AM EDT us Babak Rodriguez MD LAB BLOOD ORDERABLES Final Resu lt [facility] [address] [place] [address] * (ABNORMAL) Basic metabolic panel (09/27/2024 8:30 AM EDT) SODIUM 132(L) 133 - 146 mmol/L [facility] CHLORIDE 98 96 - 108 mmol/L [facility] POTASSIUM 4.1 3.3 - 5.1 mmol/L [facility] CO2 20(L) 21 - 35 mmol/L [facility] BUN 46(H) 6 - 19 mg/dL [facility] CREATININE 1.70(H) 0.5 - 1.5 mg/dL [facility] GLUCOSE 332(H) 70 - 99 mg/dL [facility] CALCIUM 8.5 8.4 - 10.3 mg/dL [facility] EGFR 40(L) >59 mL/min/1.7 3m2 [facility] Comment:Estimated glomerular filtration rate calculated using the CKD-EPI refit equation. ANION GAP 18 10 - 20 mmol/L [facility] Blood 09/27/2024 8:30 AM EDT 09/27/2024 9:27 AM EDT Babak Rodriguez MD LAB BLOOD ORDERABLES Final Resu lt [facility] [address] [place] [address] from Last 3 Months Insurance MEDICARE PART A & B FOR LIFE MEDICARE SUPPLEMENT [facility] Address: [address] [address] MEDICARE PART A & B FOR LIFE MEDICARE SUPPLEMENT [facility] Address: [address] [address] MEDICARE PART A & B MEDICARE PART A & B MEDICARE PART A & B FOR LIFE MEDICARE SUPPLEMENT MEDICARE PART A & B MEDICARE PART A & B MEDICARE SUPPLEMENT MEDICARE PART A & B FOR LIFE MEDICARE SUPPLEMENT [facility] Address: [address] [address] MEDICARE PART A & B FOR LIFE MEDICARE SUPPLEMENT Care Teams Talent Acquisition Sourcer Relationship Specialty Start Date End Date Donte Powell MD [address] [place] [address] Dr Z[place], [place] [address] PCP - General Internal Medicine 11/30/23 Additional Source Comments The information contained in this document represents components of the legal health record. It is not the complete legal health record.[facility]
--- OUTSIDE RECORDS SUMMARY | 2024-10-08 13:05 | XMS_ITS | Clinical Summary ---
Author Organization [facility] Address [address] [place] [address] Phone Care Team Providers Care Shoulder Sawyer Name Role Phone Donte Powell MD Primary Care Provider [phone] Allergies Active Allergy Reactions Criticality Noted Date Comments [place] (Diagnostic) Other (see comments) 2024 [place] Oil Swelling High 08/26/2024 he is allergic [...] Liver enzymes level above reference range 2024 watermaster current use of anticoagulant 5 Open angle [...] Visit [facility] [address] [place] [address] Homar Cadet [...] Visit [facility] [address] [place] [address] Homar Cadet MD [address] [facility] [address] [place] [id number] Health Maintenance Due Date Last Done Comments [...] Years Completed 10/19/2018, 10/16/2016, 11/19/2011 Insurance Medicare [facility] Care Teams Shoulder Sawyer Relationship Specialty Start Date End Date Donte Powell MD [address] [place] GHOSH PCP - General Internal Medicine 05/26/24
--- OUTSIDE RECORDS SUMMARY | 2024-10-08 13:05 | XMS_ITS | Encounter Summary ---
Author Organization [facility] Address [address] [place] [address] Care Team Providers Care Well Logging Captain Name Role Phone Donte Powell MD Primary Care Provider [phone] Encounter Details Date Type Department Care Team (Late st Contact Info) Description 05/29/[address] [facility] Lab [address] [facility] [place] [address] Ross Saul MD [address] [place] [address] Unspecified atrial fibrillation (CMS/HCC [...] [facility] - 06/03/2024 6:05 AM EDT Test(s) 204142-Bhsuepbvw GI; 180944-Sttonffnn GII was developed and its performance characteristics determined by [facility]. It has not been cleared or approved by the Food and Drug Administration. Ross Saul MD LAB MICROBIOLOGY - GENERAL ORDE [facility] Final Result Performing Organization Address City/[facility]/ZIP Co de Phone Number [facility] * - Miscellaneous Test (05/29/2024 1:45 PM EST) Miscellaneous Test COMMENT 2024 6:05 AM EDT [facility] Stool 05/29/2024 1:45 PM EST 05/29/2024 6:13 PM EST Narrative [facility] - 06/03/2024 6:05 AM EDT Performed At: [address] [id number] Cody Paul MD Ph:[phone] Performed At: 02 [facility] [place] [address] [place] [address], [address] [place] [id number] Jordan Aquino MD Ph:[phone] Ross Saul MD LAB BLOOD ORDERABLES Final Resu lt Performing Organization Address City/[facility]/ZIP Co de Phone Number [facility] documented in this encounter Visit Diagnoses Diagnosis Unspecified atrial fibrillation (CMS/HCC V24, CMS/HCC V28) Diarrhea, unspecified documented in this encounter Additional Health Concerns Infection Onset Date Last Indicated Resolved Time Norovirus 05/29/2024 05/29/2024 documented as of this encounter Care Teams Well Logging Captain Relationship Specialty Start Date End Date Donte Powell MD [address] [place] [address] Dr lR [place] PCP - General Internal Medicine 09/21/18 documented as of this encounter
--- OUTSIDE RECORDS SUMMARY | 2024-10-08 13:05 | XMS_ITS | Encounter Summary ---
Author Organization [facility] Address [address] [place] [address] Care Team Providers Care Customer Service Sales Consultant Name Role Phone Donte Powell Primary Care Provider [phone] Encounter Details Date Type Department Care Team (Late st Contact Info) Description 03/21/2020 Orders Only [facility] [address] [place] [address] Violeta Plascencia, PharmD [address] [place], [place] [phone] Social History Tobacco Use Types Packs/Day Years [...] on filedocumented in this encounter Care Teams Customer Service Sales Consultant Relationship Specialty Start Date End Date Donte Powell [address] [place] [address] dr Mac [place], [place] [address] PCP - General 10/10/16 documented as of this encounter
[2024-10-08 13:07] VITALS: BP 118/50; PULSE 90; RESP 18; TEMP 36.4; O2SAT 97
== END 2024-10-08 14:14 | disposition home or self-care (01) ==
LOC: HO.HMCHD 13:02
PROVIDERS: PCP Physician Assistant; Visit Provider Physician Assistant
DX: R05.3 Chronic cough (principal); R63.4 Abnormal weight loss

== ENCOUNTER 2024-10-08 14:03 | Outpatient (REF) | payer MEDICARE, OTHER, SELFPAY ==
--- NOTE | ~2024-10-08 | CT_ITS ---
EXAMINATION: CT CHEST WITHOUT CONTRAST CLINICAL INFORMATION: Chronic cough. COMPARISON: 03/30/2017 CT chest. Chest radiograph 10/05/2024. TECHNIQUE: Multidetector volumetric CT imaging of the chest was done. Axial MIP volume rendering provided. Sagittal and coronal reformatted images were obtained. This CT examination was performed using dose optimization techniques as appropriate, variously including the following: *Automated exposure control *Adjustment of mA and/or kV according to patient size (this includes techniques or standardized protocols for targeted exams where dose is matched to indication/reason for exam; i.e. extremities or head) *Use of iterative reconstruction technique FINDINGS: LUNGS: There is mild diffuse subpleural reticular interstitial change throughout both lungs, with interlobular and intralobular septal thickening, in keeping with interstitial lung disease. There is no significant peribronchovascular interstitial thickening. There are no consolidations or abnormal foci of groundglass attenuation. Mild foci of tree-in-bud opacity in the superior segment left lower lobe, and posterior bilateral upper lobes present, consistent with foci of endobronchial spread of infection. There is no pleural effusion. There is no pneumothorax. There is mild diffuse bronchial wall thickening present, without endobronchial mucous plugging. There are no suspicious pulmonary nodules identified. MEDIASTINUM: Mild Global enlargement of the thyroid without discrete nodule. There is no pathologic lymphadenopathy or mass within the mediastinum. There are multiple small reactive appearing lymph nodes present. The main pulmonary artery is normal in size. The aorta is nonaneurysmal. There is moderate calcific atheromatous change. There is a TAVR in place. There are atrioventricular pacer leads. There is mild cardiac enlargement. No pericardial effusion. Central airways are patent. CORONARY ARTERY CALCIFICATION: Mild to moderate three-vessel coronary calcification. AXILLA/CHEST WALL: No lymphadenopathy or mass. Left chest wall pacer generator. Mild bilateral male gynecomastia. UPPER ABDOMEN: Cirrhotic morphology of the unenhanced liver. No discrete suspicious liver lesion. Gallbladder appears normal. No additional abnormalities. OSSEOUS STRUCTURES: No suspicious lytic or blastic bone lesion evident. No acute finding. Mild to moderate spinal degenerative changes. CT/CT chest wo IV con IMPRESSION: 1. Subpleural interstitial changes in keeping with early interstitial lung disease, new from prior of 2017. This most likely represents changes of NSIP, UIP, or fibrotic lung disease associated with underlying systemic disease. Also consider drug reaction. No obvious upper or lower lung gradient. 2. Mild diffuse wall small airway wall thickening. Findings suggest chronic bronchitis. 3. Subtle foci of tree-in-bud opacity in the superior segment left lower lobe, and bilateral posterior upper lobes, in keeping with small foci of endobronchial spread of infection. 4. Numerous small non-pathologically enlarged mediastinal lymph nodes. These are likely reactive. 5. Cardiomegaly, with atrioventricular pacer and TAVR. 6. Hepatic cirrhosis. Electronically signed by: Isra Bethea MD 10/08/2024 03:36 PM EDT
--- OUTSIDE RECORDS SUMMARY | 2024-10-08 14:06 | XMS_ITS | Patient Health Record ---
Author Organization [facility] Address [address] [place] [address] Care Team Providers Care Chemical Laboratory Assistant Name Role Phone Andre (RETIRED) Donte PALACIO Primary Care Provide r Unavailable Dean Payan Unavailable [phone] Allergies Allergen (clinical drug ingredient) Drug/Non Drug [...] Problem Status W/U Status Risk Notes Problem 552206277 Encounter for screening for malignant neoplasm of colon (Z12.11) Active confirmed Problem 491554936 History of adenomatous polyp of colon (Z86.010) Active confirmed Problem 552278197 Anticoagulant long-term use (Z79.01) Active confirmed Plan Of Treatment Future Test Test Name Order Date COLONOSCOPY 06/11/2013 COLONOSCOPY 11/27/2017 Insurance Providers Payer Name Payer Address Payer Phone Subscriber Number Group Number Insured Name Patient Relationship to Insured Coverage Start Date Coverage End Date [facility]IC[facility] [address] [place] [address] [phone] [id number] TONY CASTELLON Self - patient is the insured [employer] 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
--- OUTSIDE RECORDS SUMMARY | 2024-10-08 14:06 | XMS_ITS | Patient Health Record ---
Author Organization Dean Parsons III, MD Address [address] [address] Care Team Providers Care Nautical Instrument Mechanic Name Role Phone Donte Powell MD Primary Care Provider Dean Hopson Unavailable [phone] Allergies Allergen (clinical drug ingredient) Drug/Non Drug Allergy documented on EMR Reaction Allergy Type Onset Date Status Shellfish (FN) Shellfish-derived Products Throat closes Drug Allergy Active almond allergenic extract [place] (Diagnostic) Unknown Drug Allergy Active warfarin Warfarin Sodium rash Drug Allergy A ctive Results Component Value Reference Range Notes Complete Blood Count Auto Di ff Reviewed date:04/18/2024 04:55:04 PM Interpretation: Performing Lab:[facility], [address] [place] [phone] Notes/Report: White Blood Count 4.6 4.8-10.8 X10*3/uL [...] NRBC Abs Auto 0.000 0.0-0.012 X10*3/uL Comprehensive [place]. Panel Fa Reviewed date:04/18/2024 04:55:04 PM Interpretation: Performing Lab:[address] [address] Notes/Report: Sodium 135 135-145 mmol/L Potassium 4.1 [...] Panel Reviewed date:04/18/2024 04:55:04 PM Interpretation: Performing Lab:[address] [address] Notes/Report: Triglycerides 106 <150 mg/dL Desirable Triglyceride: [...] B12 Reviewed date:04/18/2024 04:55:04 PM Interpretation: Performing Lab:[facility], [address] [place] [phone] Notes/Report: Vitamin B12 725 200-900 pg/mL NORMAL 200-900 PG/ML INDETERMINATE 160-199 PG/ML DEFICIENT < 160 PG/ML Microalbumin, Random Reviewed date:04/18/2024 04:55:04 PM Interpretation: Performing Lab:[facility], [address] [place] [phone] Notes/Report: Creatinine Urine 45.72 Microalbumin Urine < 5.0 Microalbum/Creatinine Ratio Ur TNP <30 ug/mg cr Unable to calculate albumin/creatinine ratio due to low microalbumin or creatinine result. Hemoglobin A1c Reviewed date:04/18/2024 04:55:04 PM Interpretation: Performing Lab:[facility], [address] [place] [phone] Notes/Report: Hemoglobin A1c % 8.2 <6.0 % [...] average glucose, using the formula of the P5H-Vckbjio Average Glucose study (ADAG), Diabetes Care, Vol.31,#8, Oct. 2007 XR chest 2V Reviewed date:04/18/2024 04:55:04 PM Interpretation: Performing Lab: Notes/Report: [address] [address] XRay Report Signed Patient: Joel Logan Jr MR#: [id number] : 1940 Acct:[id number] Age/Sex: 83 / M ADM Date: 04/14/24 Loc: [facility] Attending Dr: Dean Parsons MD Ordering Physician: Dean Parsons MD Date of Service: 04/14/24 Procedure(s): XR chest 2V Accession Number(s): [id number] cc: Dean Parsons MD; Donte Powell MD [...] 04/14/24 0833 DD/ 0745 TD/TT: 04/14/24 0754 Business Development Representative: [address] [address] XRay Report Signed Patient: Joel Logan Jr MR#: [id number] : 1940 Acct:[id number] Age/Sex: 83 / M ADM Date: 04/14/24 Loc: [facility] Attending Dr: Dean Parsons MD Ordering Physician: Dean Parsons MD Date of Service: 04/14/24 Procedure(s): XR [address] st 2V Accession Number(s): [id number] cc: Dean Parsons MD; Donte Powell MD [...] 04/14/24 0833 DD/ 0745 TD/TT: 04/14/24 0754 Business Development Representative: [facility] Reason For Referral No Information Medications Medication [...] Problem Status W/U Status Risk Notes Problem 3722625 Former smoker (Z87.891) Active confirmed He remains abstinent. He oglesby a planned to prevent relapse and times of stress and illness. Problem 654748467 Overweight (E66.3) Active confirmed His body mass index is 17. We discussed his diet and nutrition. We made a plan to lose weight at a rate of one half of a pound per week. Problem 51273861 Diabetes mellitu s (E11.9) Active confirmed His diabetes an d he is compliant with his treatment. No change in his regimen as necessary. Problem 948904816 Skin cancer (C44.90) Active confirmed The lesion on the left upper eyelid will be removed June 26, 2023. Problem 217436255 Chronic anticoagulation (Z79.01) Active confirmed He has had no bleeding on the Eliquis which he takes for atrial fibrillation. Problem 127594808 Lymphoma (C85.90) Active confirmed There is no sign of recurrent N/K T-cell lymphoma in any site at this time. Surveillance will continue at six-month intervals. He will return immediately for any symptoms of relapse. The nodular lesion on the right orthodox is in an area of previous disease but appears to be a basal cell. Problem 60219712 Essential hypertension (I10) Active confirmed His blood pressure is well controlled today and no change in his regimen was needed. Problem 26132203 Cataracts, bilateral (H26.9) Active confirmed He is nik g to have surgery October 23, 2022. Problem 48357819 Atrial fibrillation (I48.91) Active confirmed He is in a sinu s rhythm today with a rate of about 80. His cardiovascular status stable.. Problem 91589515 Hyperlipemia (E78.5) Active confirmed His lipids have been well controlled. No change in his regimen was needed. His statin therapy was continued. Problem 90224769 Peripheral vascular disease in diabetes mellitus (E11.51) [...] removed and the scar is healing. Problem 53566030 Acute kidney injury (N17.9) Active confirmed His BUN and creatinine are substantially elevated from baseline on the most recent blood work from the end of March. This was in the context of an episode of pneumonia. He has been referred back to primary care for management of the residual pneumonia and the renal function. 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) Active [...] Date Provider Diagnosis Dean Parsons III, MD [address] [place] [address] [place] [address] 05/04/2024 Dean Parsons Lymphoma C85.90 ; Overweight [...] Details Provider Name:Dean Parsons, 11/02/2024 02:30:00 PM, [address] [place] [address] DR, [address], [place], [address], Insurance Providers Payer Name Payer Address Payer Phone Subscriber Number Group Number Insured Name Patient Relationship to Insured Coverage Start Date Coverage End Date MEDICARE NGS [address] [place] [phone] [id number] Joel Clayton i Self - patient is the insured FOR LIFE [address] [place] [phone] [id number] Joel Clayton i Self - patient is [...] and aspirate autologous stem cell transpl ant [facility] left femoral popliteal bypass surgery 2013 vascular bypass surgery left lower extre mity 12/2014 angioplasty left leg [facility] 2017 skin cancer removed from ear 2019 Basal cell carcinoma of face 2021 No history Hospitalization History Reason Date(Month/Year) No history
[2024-10-08 15:20] LABS: Hematocrit 34.4 % (42.0-52.0); Hemoglobin 11.5 g/dl (14.0-18.0); Imm Gran Abs Auto 0.07 X10*3/uL (0.00-0.03); Imm Gran Pct Auto 0.8 % (0.0-0.4); Lymphocytes Absolute Auto 0.4 X10*3/uL (1.2-4.9); MANUAL DIFF FLAG SCAN; Mean Corpuscular HGB Conc 33.4 g/dl (31.0-36.0); Mean Corpuscular Hemoglobin 34.8 pg (27.0-33.0); Mean Corpuscular Volume 104.2 fL (80.0-98.0); NRBC Abs Auto 0.000 X10*3/uL (0.0-0.012); NRBC Pct Auto 0.0 /100WBC (0.0-0.2); Platelet Count 186 X10*3/uL (160-400); Red Blood Count 3.30 X10*6/uL (4.60-5.80); SCAN SMEAR FLAG 1; White Blood Count 9.2 X10*3/uL (4.8-10.8)
[2024-10-08 15:26] LABS: Hemoglobin A1C 166.7377 umol/L; Total Hemoglobin (HGBA1C) 3062.0094 umol/L
[2024-10-08 15:30] LABS: D Dimer High Sensitivity 194 NG/ML
[2024-10-08 15:48] LABS: Alanine Aminotransferase 128 U/L (0-40); Albumin Level 3.2 g/dL (3.5-5.0); Alkaline Phosphatase 121 U/L (39-117); Anion Gap 14 (12-20); Aspartate Amino Transferase 62 U/L (5-37); Blood Urea Nitrogen 71 mg/dL (9-16); Calcium 8.4 mg/dL (8.4-10.2); Carbon Dioxide 23 mmol/L (22-29); Chloride 105 mmol/L (96-108); Cholesterol 103 mg/dL (<200); Estimated Glomerular Filt Rate 36; HDL Cholesterol 38 mg/dL (>40); Potassium 4.4 mmol/L (3.3-5.1); Sodium 138 mmol/L (135-145); Total Protein 6.9 g/dL (6.5-8.0); Triglycerides 150 mg/dL (<150)
[2024-10-08 16:05] LABS: B Type Natriuretic Peptide 755 pg/mL (<100)
[2024-10-08 16:07] LABS: Prostate Specific Antigen 0.24 ng/mL (<0.05-4.0)
[2024-10-08 16:55] LABS: Free T4 (Free Thyroxine) 1.29 ng/dL (0.71-1.85)
--- OUTSIDE RECORDS SUMMARY | 2024-11-19 20:00 | XMS_ITS | Clinical Summary ---
Author Organization Unknown Care Team Providers Care Accounting Intern Name Role Phone GABRIELLA PALACIO, EVELYN Unavailable Unavailab josé miguel RICHARDSON RN, IZABELLA Unavailable Unavailable MARCUS PT, JAMES Unavailable Unavail able ENRIQUE MUSIC PUBLISHER, MARINO Unavailable Unavailable Payers Payer Name Policy Type Policy Number Effective Date Expira tion Date MEDICARE.NGS.PDGM [id number] Problems Condition Name Condition Details Condition Category Status Onset Date Resolution Date Last Treatment Date Treating Clinician Comments HYP HRT AND CHR KDNY DIS W HRT FAIL AND STG 1-4/UNSP CHR KDNY Active 09-18 00:00: 00 ACUTE ON CHRONIC SYSTOLIC (CONGESTIVE) HEART FAILURE Active 09-18 00:00: 00 TYPE 2 DIABETES MELLITUS W DIABETIC CHRONIC KIDNEY DISEASE Active 03-24 00:00: 00 CHRONIC KIDNEY DISEASE, STAGE 3B Active 03-24 00:00: 00 ANEMIA IN CHRONIC KIDNEY DISEASE Active 03-24 00:00: 00 OTHER VIRAL INFECTIONS OF UNSPECIFIED SITE Active 09-18 00:00: 00 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 Active 09-18 00:00: 00 CHR OBSTRUCTIVE PULMON DISEASE WITH (ACUTE) LOWER RESP INFCT Active 09-18 00:00: 00 PNEUMONIA, UNSPECIFIED ORGANISM Active 09-18 00:00: 00 TYPE 2 DIABETES W DIABETIC PERIPHERAL ANGIOPATH W/O GANGRENE Active 03-24 00:00: 00 PAROXYSMAL ATRIAL FIBRILLATION Active 03-24 00:00: 00 OCCLUSION AND STENOSIS OF UNSPECIFIED CAROTID ARTERY Active 03-24 00:00: 00 OTHER CARDIOMYOPAT HIES Active 03-24 00:00: 00 PRIMARY OSTEOARTHRIT IS, UNSPECIFIED HAND Active 03-24 00:00: 00 HYPERLIPIDEM IA, UNSPECIFIED Active 03-24 00:00: 00 LEFT BUNDLE-BRANC H BLOCK, UNSPECIFIED Active 03-24 00:00: 00 PRESENCE OF CARDIAC PACEMAKER Active 03-24 00:00: 00 SUPERVISOR TELEPHONE ANSWERING SERVICE (CURRENT) USE OF ANTICOAGULAN TS Active 03-24 00:00: 00 CORRECTION (CURRENT) USE OF INSULIN Active 03-24 00:00: 00 SUPERVISOR TELEPHONE ANSWERING SERVICE (CURRENT) USE OF ORAL HYPOGLYCEMIC DRUGS Active 03-24 00:00: 00 PRESENCE OF PROSTHETIC HEART VALVE Active 03-24 00:00: 00 PERSONAL HISTORY OF NICOTINE DEPENDENCE Active 03-24 00:00: 00 PERSONAL HISTORY OF NON-HODGKIN LYMPHOMAS Active 03-24 00:00: 00 BONE MARROW TRANSPLANT STATUS Active 03-24 00:00: 00 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 Ordering Clinician Indication Dosage Frequency Signature (SIG) Comments Components albuterol sulfate HFA 90 mcg/actuati on aerosol inhaler 07-13 00:00: 00 10-23 23:59 :00 No [id number] SHORTNESS OF BREATH, WHEEZING Per instruc tions EVERY 4 HOURS Per instructio ns EVERY 4 HOURS (route: inhalation ) Med Classific ation: Respirato ry Therapy Agents albuterol sulfate HFA 90 mcg/actuati on aerosol inhaler 07-13 00:00: 00 07-19 00:00 :00 No [id number] Per instruc tions EVERY 4 HOURS NEEDED Per instructio ns EVERY 4 HOURS NEEDED (route: inhalation ) Med Classific ation: Respirato ry Therapy Agents BD Insulin Syringe Ultra-Fine 1 mL 31 gauge x 5/16 2022-0 4-18 00:00: 00 07-19 00:00 :00 No [id number] Per instruc tions Per instructio ns (route: miscellane ous) Med Classific ation: Medical Supplies and Durable Medical Equipment (DME) terazosin 5 mg capsule 4-18 00:00: 00 10-23 23:59 :00 No [id number] BPH 1 capsule DAILY 1 capsule DAILY (route: oral) Med Classific ation: Cardiovas cular Therapy Agents Lantus U-100 Insulin 100 unit/mL subcutaneou s solution 4-13 00:00: 00 07-19 00:00 :00 No [id number] Per instruc tions Per instructio ns (route: subcutaneo us) Med Classific ation: Endocrine fenofibrate 54 mg tablet 4-11 00:00: 00 10-23 23:59 :00 No [id number] BPH 2 tablet DAILY 2 tablet DAILY (route: oral) Med Classific ation: Cardiovas cular Therapy Agents atorvastati n 10 mg tablet 2-18 00:00: 00 10-23 23:59 :00 No [id number] HLD 1 tablet BEDTIME 1 tablet BEDTIME (route: oral) Med Classific ation: Cardiovas cular Therapy Agents nifedipine ER 30 mg tablet,exte nded release 2-18 00:00: 00 10-23 23:59 :00 No [id number] HTN 1 tablet DAILY 1 tablet DAILY (route: oral) Med Classific ation: Cardiovas cular Therapy Agents Lantus U-100 Insulin 100 unit/mL subcutaneou s solution 2-15 00:00: 00 10-23 23:59 :00 No [id number] DM 18 unit 2 TIMES DAILY 18 unit 2 TIMES DAILY (route: subcutaneo us) Med Classific ation: Endocrine terazosin 5 mg capsule 2-10 00:00: 00 07-19 00:00 :00 No [id number] Per instruc tions Per instructio ns (route: oral) Med Classific ation: Cardiovas cular Therapy Agents BD Insulin Syringe Ultra-Fine 1 mL 31 gauge x 08/06 2-09 00:00: 00 07-19 00:00 :00 No [id number] Per instruc tions Per instructio ns (route: miscellane ous) Med Classific ation: Medical Supplies and Durable Medical Equipment (DME) finasteride 5 mg tablet 04-20 00:00: 00 10-23 23:59 :00 No [id number] BPH 1 tablet DAILY 1 tablet DAILY (route: oral) Med Classific ation: Genitouri nary Therapy Aspirin Low Dose 81 mg tablet,nora yed release 07-19 00:00: 00 10-23 23:59 :00 No [id number] HEART DISEASE 1 tablet DAILY 1 tablet DAILY (route: oral) Med Classific ation: Hematolog ical Agents cholecalcif mary (vitamin D3) 10 mcg (400 unit) capsule 07-19 00:00: 00 10-23 23:59 :00 No [id number] SUPPLEMENT 1 capsule DAILY 1 capsule DAILY (route: oral) Med Classific ation: Electroly te Balance-N utritiona l Products Eliquis 5 mg tablet 07-19 00:00: 00 10-23 23:59 :00 No [id number] AFIB 1 tablet 2 TIMES DAILY 1 tablet 2 TIMES DAILY (route: oral) Med Classific ation: Hematolog ical Agents ferrous fumarate 324 mg (106 mg iron) tablet 07-19 00:00: 00 10-23 23:59 :00 No [id number] SUPPLEMENT 1 tablet DAILY 1 tablet DAILY (route: oral) Med Classific ation: Electroly te Balance-N utritiona l Products insulin lispro (U-100) 100 unit/mL subcutaneou s pen 07-19 00:00: 00 10-23 23:59 :00 No [id number] DM Per instruc tions BEFORE MEALS AND BEDTIME Per instructio ns BEFORE MEALS AND BEDTIME (route: subcutaneo us) Med Classific ation: Endocrine metoprolol tartrate 50 mg tablet 2022-0 4-28 00:00: 00 07-25 23:59 :00 No [id number] HTN 1 tablet DAILY 1 tablet DAILY (route: oral) Med Classific ation: Cardiovas cular Therapy Agents One-A-Day Trubiotics 2 billion cell capsule 4-28 00:00: 00 10-23 23:59 :00 No [id number] SUPPLEMENT 1 capsule DAILY 1 capsule DAILY (route: oral) Med Classific ation: Gastroint estinal Therapy Agents metoprolol tartrate 25 mg tablet 07-25 00:00: 00 10-23 23:59 :00 No [id number] HTN 12.5 mg 2 TIMES DAILY 12.5 mg 2 TIMES DAILY (route: oral) Med Classific ation: Cardiovas cular Therapy Agents amoxicillin 875 mg-potassiu m clavulanate 125 mg tablet 10-23 00:00: 00 04-27 23:59 :00 No [id number] ABT 1 tablet 2 TIMES DAILY 1 tablet 2 TIMES DAILY (route: oral) Med Classific ation: Anti-Infe ctive Agents terazosin 5 mg capsule 7-11 00:00: 00 10-28 00:00 :00 No [id number] Per instruc tions Per instructio ns (route: oral) Med Classific ation: Cardiovas cular Therapy Agents Advair Diskus 250 mcg-50 mcg/dose powder for inhalation 10-28 00:00: 00 04-27 23:59 :00 No [id number] COPD 1 inhalat ion 3 TIMES DAILY 1 inhalation 3 TIMES DAILY (route: inhalation ) Med Classific ation: Respirato ry Therapy Agents Eliquis 5 mg tablet 10-28 00:00: 00 04-27 23:59 :00 No [id number] ANTICOAGULA TION 1 tablet 2 TIMES DAILY 1 tablet 2 TIMES DAILY (route: oral) Med Classific ation: Hematolog ical Agents fenofibrate 54 mg tablet 10-28 00:00: 00 04-27 23:59 :00 No [id number] PROSTATE 1 tablet DAILY 1 tablet DAILY (route: oral) Med Classific ation: Cardiovas cular Therapy Agents insulin glargine (U-100) 100 unit/mL subcutaneou s solution 10-28 00:00: 00 04-27 23:59 :00 No [id number] DM 18 unit 2 TIMES DAILY 18 unit 2 TIMES DAILY (route: subcutaneo us) Med Classific ation: Endocrine iron 325 mg (65 mg iron) tablet 10-28 00:00: 00 04-27 23:59 :00 No [id number] SUPPLEMENT 1 tablet DAILY 1 tablet DAILY (route: oral) Med Classific ation: Electroly te Balance-N utritiona l Products Lipitor 10 mg tablet 10-28 00:00: 00 04-27 23:59 :00 No [id number] CAD 1 tablet DAILY 1 tablet DAILY (route: oral) Med Classific ation: Cardiovas cular Therapy Agents losartan 50 mg tablet 10-28 00:00: 00 04-27 23:59 :00 No [id number] HTN 1 tablet DAILY 1 tablet DAILY (route: oral) Med Classific ation: Cardiovas cular Therapy Agents terazosin 5 mg capsule 10-28 00:00: 00 04-27 23:59 :00 No [id number] SLEEP 1 capsule DAILY 1 capsule DAILY (route: oral) Med Classific ation: Cardiovas cular Therapy Agents Toprol XL 25 mg tablet,exte nded release 10-28 00:00: 00 04-27 23:59 :00 No [id number] AFIB 0.5 tablet DAILY 0.5 tablet DAILY (route: oral) Med Classific ation: Cardiovas cular Therapy Agents Vitamin D3 25 mcg (1,000 unit) capsule 10-28 00:00: 00 04-27 23:59 :00 No [id number] SUPPLEMENT 1 capsule DAILY 1 capsule DAILY (route: oral) Med Classific ation: Electroly te Balance-N utritiona l Products Advair Diskus 250 mcg-50 mcg/dose powder for inhalation - 00:00: 00 06-02 23:59 :00 No [id number] SOB 1 inhalat ion 2 TIMES DAILY 1 inhalation 2 TIMES DAILY (route: inhalation ) Med Classific ation: Respirato ry Therapy Agents atorvastati n 40 mg tablet 04-30 00:00: 00 06-02 23:59 :00 No [id number] CHOLESTEROL 1 tablet BEDTIME 1 tablet BEDTIME (route: oral) Med Classific ation: Cardiovas cular Therapy Agents D3 DOTS 50 mcg (2,000 unit) tablet 04-30 00:00: 00 06-02 23:59 :00 No [id number] SUPPLEMENT 1 tablet DAILY 1 tablet DAILY (route: oral) Med Classific ation: Electroly te Balance-N utritiona l Products Eliquis 2.5 mg tablet 04-30 00:00: 00 06-02 23:59 :00 No [id number] ATRIAL FIB 1 tablet 2 TIMES DAILY 1 tablet 2 TIMES DAILY (route: oral) Med Classific ation: Hematolog ical Agents fenofibrate 54 mg tablet 04-30 00:00: 00 06-02 23:59 :00 No [id number] CHOLESTEROL 2 tablet DAILY 2 tablet DAILY (route: oral) Med Classific ation: Cardiovas cular Therapy Agents ferrous sulfate 325 mg (65 mg iron) tablet 04-30 00:00: 00 06-02 23:59 :00 No [id number] ANEMIA 1 tablet DAILY 1 tablet DAILY (route: oral) Med Classific ation: Electroly te Balance-N utritiona l Products finasteride 5 mg tablet 04-30 00:00: 00 06-02 23:59 :00 No [id number] BPH 1 tablet DAILY 1 tablet DAILY (route: oral) Med Classific ation: Genitouri nary Therapy insulin glargine (U-100) 100 unit/mL (3 mL) subcutane s pen 04-30 00:00: 00 06-02 23:59 :00 No [id number] DM 18 unit 2 TIMES DAILY 18 unit 2 TIMES DAILY (route: subcutaneo us) Med Classific ation: Endocrine losartan 50 mg tablet 04-30 00:00: 00 06-02 23:59 :00 No [id number] HTN 50 mg DAILY 50 mg DAILY (route: oral) Med Classific ation: Cardiovas cular Therapy Agents metoprolol succinate ER 25 mg tablet,exte nded release 24 hr 2- 00:00: 00 06-02 23:59 :00 No [id number] RATE CONTROL,BP .5 tablet 2 TIMES DAILY .5 tablet 2 TIMES DAILY (route: oral) Med Classific ation: Cardiovas cular Therapy Agents Novolin N FlexPen 100 unit/mL (3 mL) subcutaneou s insulin pen 2- 00:00: 00 06-02 23:59 :00 No [id number] DM 16 unit DAILY 16 unit DAILY (route: subcutaneo us) Med Classific ation: Endocrine Novolog FlexPen U-100 Insulin aspart 100 unit/mL (3 mL) subcutaneou s 04-30 00:00: 00 06-02 23:59 :00 No [id number] DM 9 unit DAILY 9 unit DAILY (route: subcutaneo us) Med Classific ation: Endocrine Novolog FlexPen U-100 Insulin aspart 100 unit/mL (3 mL) subcutaneou s 04-30 00:00: 00 06-02 23:59 :00 No [id number] DM 11 unit DAILY 11 unit DAILY (route: subcutaneo us) Med Classific ation: Endocrine terazosin 5 mg capsule 2 00:00: 00 06-02 23:59 :00 No [id number] BPH 1 capsule BEDTIME 1 capsule BEDTIME (route: oral) Med Classific ation: Cardiovas cular Therapy Agents carboxymeth ylcellulose sodium 0.5 % eye drops 2- 00:00: 00 06-02 23:59 :00 No [id number] DRY EYES 1 drops 2 TIMES DAILY 1 drops 2 TIMES DAILY (route: ophthalmic (eye)) Med Classific ation: Ophthalmi c Agents ICaps AREDS 4,296 mcg-226 mg-90 mg capsule 2- 00:00: 00 06-02 23:59 :00 No [id number] EYE HEALTH 1 capsule DAILY 1 capsule DAILY (route: oral) Med Classific ation: Electroly te Balance-N utritiona l Products Jardiance 25 mg tablet 04-30 00:00: 00 05-12 23:59 :00 No [id number] DM 1 tablet DAILY 1 tablet DAILY (route: oral) Med Classific ation: Endocrine Lasix 40 mg tablet 05-09 00:00: 00 06-02 23:59 :00 No [id number] CHF 1 tablet DAILY 1 tablet DAILY (route: oral) Med Classific ation: Cardiovas cular Therapy Agents Jardiance 10 mg tablet 05-12 00:00: 00 06-02 23:59 :00 No [id number] DIABETES 0.5 tablet DAILY 0.5 tablet DAILY (route: oral) Med Classific ation: Endocrine fenofibrate 54 mg tablet 05-19 00:00: 00 06-10 00:00 :00 No [id number] Per instruc tions Per instructio ns (route: oral) Med Classific ation: Cardiovas cular Therapy Agents acetaminoph en 500 mg tablet 06-10 00:00: 00 09-22 00:00 :00 No [id number] PAIN 2 tablet EVERY 8 HOURS 2 tablet EVERY 8 HOURS (route: oral) Med Classific ation: Analgesic , Anti-infl ammatory or Antipyret ic Afrin (oxymetazol ine) 0.05 % nasal spray 06-10 00:00: 00 09-22 00:00 :00 No [id number] NOSEBLEEDS 2 spray EVERY 4 HOURS 2 spray EVERY 4 HOURS (route: nasal) Med Classific ation: Respirato ry Therapy Agents albuterol sulfate HFA 90 mcg/actuati on aerosol inhaler 06-10 00:00: 00 09-22 00:00 :00 No [id number] SHORTNESS OF BREATH 2 puff EVERY 6 HOURS 2 puff EVERY 6 HOURS (route: inhalation ) Med Classific ation: Respirato ry Therapy Agents amiodarone 200 mg tablet 06-10 00:00: 00 09-22 00:00 :00 No [id number] IRREGULAR HEART BEAT 1 tablet DAILY 1 tablet DAILY (route: oral) Med Classific ation: Cardiovas cular Therapy Agents aspirin 81 mg tablet,nora yed release 06-10 00:00: 00 09-22 00:00 :00 No [id number] HIGH LIPIDS 1 tablet DAILY 1 tablet DAILY (route: oral) Med Classific ation: Hematolog ical Agents betamethaso ne dipropionat e 0.05 % topical cream 06-10 00:00: 00 09-22 00:00 :00 No [id number] PSORIASIS FLARE 3 inch 2 TIMES DAILY 3 inch 2 TIMES DAILY (route: topical) Med Classific ation: Dermatolo gical Eliquis 2.5 mg tablet 06-10 00:00: 00 09-22 00:00 :00 No [id number] IRREGULAR HEART BEAT 1 tablet EVERY 12 HOURS 1 tablet EVERY 12 HOURS (route: oral) Med Classific ation: Hematolog ical Agents fenofibrate 54 mg tablet 06-10 00:00: 00 09-22 00:00 :00 No [id number] HIGH LIPIDS 2 tablet EVERY AM 2 tablet EVERY AM (route: oral) Med Classific ation: Cardiovas cular Therapy Agents ferrous sulfate 325 mg (65 mg iron) tablet 06-10 00:00: 00 09-22 00:00 :00 No [id number] ANEMIA 1 tablet EVERY 48 HOURS 1 tablet EVERY 48 HOURS (route: oral) Med Classific ation: Electroly te Balance-N utritiona l Products finasteride 5 mg tablet 06-10 00:00: 00 09-22 00:00 :00 No [id number] ENLARGED PROSTATE 1 tablet BEDTIME 1 tablet BEDTIME (route: oral) Med Classific ation: Genitouri nary Therapy Jardiance 25 mg tablet 06-10 00:00: 00 09-22 00:00 :00 No [id number] DIABETES 1 tablet DAILY 1 tablet DAILY (route: oral) Med Classific ation: Endocrine Lantus Solostar U-100 Insulin 100 unit/mL (3 mL) [facility] 3-20 00:00: 00 09-22 00:00 :00 No [id number] DIABETES 8 unit 2 TIMES DAILY 8 unit 2 TIMES DAILY (route: [facility]) Med Classific ation: Endocrine metoprolol succinate ER 25 mg tablet,exte nded release 24 hr -20 00:00: 00 09-22 00:00 :00 No [id number] IRREGULAR HEART BEAT 0.5 tablet 2 TIMES DAILY 0.5 tablet 2 TIMES DAILY (route: oral) Med Classific ation: Cardiovas cular Therapy Agents Miralax 17 gram/dose oral powder 06-10 00:00: 00 09-22 00:00 :00 No [id number] CONSTIPATIO N 17 gram DAILY 17 gram DAILY (route: oral) Med Classific ation: Gastroint estinal Therapy Agents Novolog FlexPen U-100 Insulin aspart 100 unit/mL (3 mL) [facility] s 20 00:00: 00 09-22 00:00 :00 No [id number] DIABETES 2 unit BEFORE DINNER 2 unit BEFORE DINNER (route: [facility]) Med Classific ation: Endocrine Novolog FlexPen U-100 Insulin aspart 100 unit/mL (3 mL) [facility] s -20 00:00: 00 09-22 00:00 :00 No [id number] DIABETES 4 unit BEFORE LUNCH 4 unit BEFORE LUNCH (route: [facility]) Med Classific ation: Endocrine Novolog FlexPen U-100 Insulin aspart 100 unit/mL (3 mL) [facility] 3-20 00:00: 00 09-22 00:00 :00 No [id number] DIABETES 4 unit BEFORE BREAKFAST 4 unit BEFORE BREAKFAST (route: [facility]) Med Classific ation: Endocrine oxycodone 5 mg tablet 3-20 00:00: 00 09-22 00:00 :00 No [id number] SEVERE PAIN 1 tablet EVERY 4 HOURS 1 tablet EVERY 4 HOURS (route: oral) Med Classific ation: Analgesic , Anti-infl ammatory or Antipyret ic terazosin 5 mg capsule 06-10 00:00: 00 09-22 00:00 :00 No [id number] ENLARGED PROSTATE 1 capsule BEDTIME 1 capsule BEDTIME (route: oral) Med Classific ation: Cardiovas cular Therapy Agents Wixela Inhub 250 mcg-50 mcg/dose powder for inhalation 06-10 00:00: 00 09-22 00:00 :00 No [id number] COPD 1 inhalat ion DAILY 1 inhalation DAILY (route: inhalation ) Med Classific ation: Respirato ry Therapy Agents amoxicillin 875 mg-potassiu m clavulanate 125 mg tablet 06-16 00:00: 00 06-26 23:59 :00 No [id number] INFE 1 tablet 2 TIMES DAILY 1 tablet 2 TIMES DAILY (route: oral) Med Classific ation: Anti-Infe ctive Agents albuterol sulfate HFA 90 mcg/actuati on aerosol inhaler 09-21 00:00: 00 Yes [id number] SHORTNESS OF BREATH, WHEEZING 2 puff EVERY 6 HOURS 2 puff EVERY 6 HOURS (route: inhalation ) Med Classific ation: Respirato ry Therapy Agents amiodarone 200 mg tablet 09-21 00:00: 00 Yes [id number] IRREGULAR HEART BEAT 1 tablet DAILY 1 tablet DAILY (route: oral) Med Classific ation: Cardiovas cular Therapy Agents atorvastati n 40 mg tablet 09-21 00:00: 00 Yes [id number] HIGH LIPIDS 1 tablet BEDTIME 1 tablet BEDTIME (route: oral) Med Classific ation: Cardiovas cular Therapy Agents betamethaso ne dipropionat e 0.05 % lotion 09-21 00:00: 00 Yes [id number] RASH 3 mL 2 TIMES DAILY 3 mL 2 TIMES DAILY (route: topical) Med Classific ation: Dermatolo gical cyanocobala min (vit B-12) 1,000 mcg tablet 09-21 00:00: 00 Yes [id number] SUPPLEMENT 1 tablet DAILY 1 tablet DAILY (route: oral) Med Classific ation: Electroly te Balance-N utritiona l Products doxycycline hyclate 100 mg tablet 09-21 00:00: 00 09-22 23:59 :00 No [id number] PNEUMONIA 1 tablet EVERY 12 HOURS 1 tablet EVERY 12 HOURS (route: oral) Med Classific ation: Anti-Infe ctive Agents Eliquis 2.5 mg tablet 09-21 00:00: 00 Yes [id number] IRREGULAR HEART BEAT- CLOT PREVENTION 1 tablet EVERY 12 HOURS 1 tablet EVERY 12 HOURS (route: oral) Med Classific ation: Hematolog ical Agents ferrous sulfate 325 mg (65 mg iron) tablet 09-21 00:00: 00 Yes [id number] ANEMIA 1 tablet EVERY OTHER DAY 1 tablet EVERY OTHER DAY (route: oral) Med Classific ation: Electroly te Balance-N utritiona l Products finasteride 5 mg tablet 09-21 00:00: 00 Yes [id number] URINARY RETENTION 1 tablet BEDTIME 1 tablet BEDTIME (route: oral) Med Classific ation: Genitouri nary Therapy fluticasone 250 mcg-[place] rol 50 mcg/dose blistr powdr for inhalation 09-21 00:00: 00 Yes [id number] TROUBLE BREATHING 1 inhalat ion 2 TIMES DAILY 1 inhalation 2 TIMES DAILY (route: inhalation ) Med Classific ation: Respirato ry Therapy Agents furosemide 40 mg tablet 09-23 00:00: 00 Yes [id number] WATER WEIGHT 1 tablet DAILY 1 tablet DAILY (route: oral) Med Classific ation: Cardiovas cular Therapy Agents Jardiance 25 mg tablet 09-21 00:00: 00 Yes [id number] DIABETES 1 tablet DAILY 1 tablet DAILY (route: oral) Med Classific ation: Endocrine metoprolol succinate ER 25 mg tablet,exte nded release 24 hr 09-21 00:00: 00 Yes [id number] IRREGULAR HEART BEAT 0.5 tablet 2 TIMES DAILY 0.5 tablet 2 TIMES DAILY (route: oral) Med Classific ation: Cardiovas cular Therapy Agents Novolin 70-30 FlexPen U-100 Insulin 100 unit/mL (70-30) subcutaneou s 09-21 00:00: 00 Yes [id number] DIABETES 11 unit BEFORE DINNER 11 unit BEFORE DINNER (route: [facility]) Med Classific ation: Endocrine Novolin N FlexPen 100 unit/mL (3 mL) subcutaneou s insulin pen 09-21 00:00: 00 Yes [id number] DIABETES 16 unit EVERY AM 16 unit EVERY AM [facility] Med Classific ation: Endocrine Novolog FlexPen U-100 Insulin aspart 100 unit/mL (3 mL) subcutaneou s 09-21 00:00: 00 Yes [id number] DIABETES 9 unit BEFORE LUNCH 9 unit BEFORE LUNCH (route: [facility]) Med Classific ation: Endocrine prednisone 20 mg tablet 09-21 00:00: 00 09-23 23:59 :00 No [id number] PNEUMONIA 2 tablet DAILY 2 tablet DAILY (route: oral) Med Classific ation: Endocrine Refresh Optive 0.5 %-0.9 % eye drops 09-21 00:00: 00 Yes [id number] DRY EYES 1 drops 2 TIMES DAILY 1 drops 2 TIMES DAILY (route: ophthalmic (eye)) Med Classific ation: Ophthalmi c Agents terazosin 5 mg capsule 09-21 00:00: 00 Yes [id number] ENLARGED PROSTATE 1 capsule BEDTIME 1 capsule BEDTIME (route: oral) Med Classific ation: Cardiovas cular Therapy Agents BETAMETHASO NE DIPROPIONAT E TOPICAL 2016-03 0 00:00: 00 04-03 09:59 :21 No 0.05 % 0.05 % (route: ) Med Classific ation: DERMATOLO GICAL TAMSULOSIN ORAL 8 00:00: 00 04-03 10:04 :12 No 0.4 mg 0.4 mg (route: ) Med Classific ation: GENITOURI NARY THERAPY COUMADIN ORAL 2016-03 0-25 00:00: 00 04-03 00:00 :00 No 5 [...] Observation Time Observation Value Commen ts Temperature 2024-10-01 08:44:00.000 97.9 [degF] Temperature 2024-09-28 09:07:00.000 97 [degF] Temperature 2024-09-22 12:16:00.000 97.3 [degF] BMI (%) 2024-09-22 12:16:00.000 26 kg/m2 Height 2024-09-22 12:16:00.000 66 [in_us] Pulse 2024-10-01 08:44:00.000 91 /min Pulse 2024-09-28 09:07:00.000 91 /min Pulse 2024-09-27 10:33:00.000 91 /min Pulse 2024-09-22 12:16:00.000 84 /min O2 Saturation (%) 2024-10-01 08:44:00.000 95 % O2 Saturation (%) 2024-09-28 09:07:00.000 96 % O2 Saturation (%) 2024-09-27 10:33:00.000 94 % O2 Saturation (%) 2024-09-22 12:16:00.000 96 % Respirations 2024-10-01 08:44:00.000 18 /min Respirations 2024-09-28 09:07:00.000 18 /min Respirations 2024-09-22 12:16:00.000 18 /min Weight (lbs) 2024-09-28 09:07:00.000 159 [lb_av] Weight (lbs) 2024-09-22 12:16:00.000 165.2 [lb_av] Systolic Blood Pressure 2024-10-01 08:44:00.000 120 mm [Hg] Systolic Blood Pressure 2024-09-28 09:07:00.000 120 mm [Hg] Systolic Blood Pressure 2024-09-22 12:16:00.000 122 mm [Hg] Diastolic Blood Pressure 2024-10-01 08:44:00.000 50 mm [Hg] Diastolic Blood Pressure 2024-09-28 09:07:00.000 50 mm [Hg] Diastolic Blood Pressure 2024-09-22 12:16:00.000 50 mm [Hg] Plan of Treatment Planned Activity Planned Date Details Comments Future Scheduled Test RN TO OBSE RVE, ASSESS, EVALUATE, AND DEVELOP AN INDIVIDUALIZED PLAN OF CARE. AGENCY MAY ACCEPT ORDERS FROM CONSULTING PHYSICIANS. RN TO OBSERVE AND ASSESS, BOTANY TECHNICIAN/RACK MAKER TO OBSERVE FOR RISK FOR FALLS AND INSTRUCT IN FALL PREVENTION, HOME SAFETY, MEDICATION MANAGEMENT, INFECTION PREVENTION, AND NUTRITION MANAGEMENT. RN/BOTANY TECHNICIAN/RACK MAKER NURSE MAY PERFORM O2 SATURATION LEVEL ON ADMISSION AND PRN FOR RN TO ASSESS/BOTANY TECHNICIAN TO OBSERVE PATIENT, WITH NOTIFICATION TO THE PHYSICIAN IF SATURATION IS 90% IN THE ABSENCE OF MORE SPECIFIC PARAMETERS FROM THE PHYSICIAN. AGENCY MAY PERFORM A RESUMPTION OF CARE VISIT FOLLOWING ANY HOSPITAL ADMISSION. RN/BOTANY TECHNICIAN/RACK MAKER TO MONITOR CO-MORBID CONDITIONS LISTED ON THE PLAN OF CARE AND ANY NEW CONDITIONS THAT PRESENT THEMSELVES DURING THIS EPISODE TO IDENTIFY CHANGES AND INTERVENE TO MINIMIZE COMPLICATIONS. [code = RN TO OBSERVE, ASSESS, EVALUATE, AND DEVELOP AN INDIVIDUALIZED PLAN OF CARE. AGENCY MAY ACCEPT ORDERS FROM CONSULTING PHYSICIANS. RN TO OBSERVE AND ASSESS, BOTANY TECHNICIAN/RACK MAKER TO OBSERVE FOR RISK FOR FALLS AND INSTRUCT IN FALL PREVENTION, HOME SAFETY, MEDICATION MANAGEMENT, INFECTION PREVENTION, AND NUTRITION MANAGEMENT. RN/BOTANY TECHNICIAN/RACK MAKER NURSE MAY PERFORM O2 SATURATION LEVEL ON ADMISSION AND PRN FOR RN TO ASSESS/BOTANY TECHNICIAN TO OBSERVE PATIENT, WITH NOTIFICATION TO THE PHYSICIAN IF SATURATION IS 90% IN THE ABSENCE OF MORE SPECIFIC PARAMETERS FROM THE PHYSICIAN. AGENCY MAY PERFORM A RESUMPTION OF CARE VISIT FOLLOWING ANY HOSPITAL ADMISSION. RN/BOTANY TECHNICIAN/RACK MAKER TO MONITOR CO-MORBID CONDITIONS LISTED ON THE PLAN OF CARE AND ANY NEW CONDITIONS THAT PRESENT THEMSELVES DURING THIS EPISODE TO IDENTIFY CHANGES AND INTERVENE TO MINIMIZE COMPLICATIONS.] Future Scheduled Test MEDICATION MANAGEMENT; RN/BOTANY TECHNICIAN/RACK MAKER TO REVIEW MEDICATIONS FOR INTERACTIONS, EFFECTIVENESS OF DRUG THERAPY, AND SIGNS/SYMPTOMS OF ADVERSE REACTIONS. MAY INSTRUCT AND REINFORCE MEDICATION TEACHING RELATED TO THE USE OF MEDICATIONS, DOSAGE, FREQUENCY, PURPOSE, SIDE EFFECTS, AND TO REPORT COMPLICATIONS. [code = MEDICATION MANAGEMENT; RN/BOTANY TECHNICIAN/RACK MAKER TO REVIEW MEDICATIONS FOR INTERACTIONS, EFFECTIVENESS OF DRUG THERAPY, AND SIGNS/SYMPTOMS OF ADVERSE REACTIONS. MAY INSTRUCT AND REINFORCE MEDICATION TEACHING RELATED TO THE USE OF MEDICATIONS, DOSAGE, FREQUENCY, PURPOSE, SIDE EFFECTS, AND TO REPORT COMPLICATIONS.] Future Scheduled Test RISK FOR H OSPITALIZATION; RN TO ASSESS/TEACH, RACK MAKER/BOTANY TECHNICIAN TO OBSERVE/TEACH PATIENT/CAREGIVER ON RISK FOR HOSPITALIZATION/EMERGENCY ROOM VISITS, TEACH SIGNS AND SYMPTOMS THAT PUT PATIENT AT RISK, WHEN TO NOTIFY NURSE/PHYSICIAN OF COMPLICATIONS/DECLINE, AND WHEN TO CALL 911. [code = RISK FOR HOSPITALIZATION; RN TO ASSESS/TEACH, RACK MAKER/BOTANY TECHNICIAN TO OBSERVE/TEACH PATIENT/CAREGIVER ON RISK FOR HOSPITALIZATION/EMERGENCY ROOM VISITS, TEACH SIGNS AND SYMPTOMS THAT PUT PATIENT AT RISK, WHEN TO NOTIFY NURSE/PHYSICIAN OF COMPLICATIONS/DECLINE, AND WHEN TO CALL 911.] Future Scheduled Test CARDIOVASC ULAR SYSTEM; RN TO ASSESS/TEACH, BOTANY TECHNICIAN/RACK MAKER TO OBSERVE/TEACH RELATED TO ALTERED CARDIOVASCULAR STATUS TO MINIMIZE COMPLICATIONS AND REDUCE HOSPITALIZATION. [code = CARDIOVASCULAR SYSTEM; RN TO ASSESS/TEACH, BOTANY TECHNICIAN/RACK MAKER TO OBSERVE/TEACH RELATED TO ALTERED CARDIOVASCULAR STATUS TO MINIMIZE COMPLICATIONS AND REDUCE HOSPITALIZATION.] Future Scheduled Test HEART FAIL URE; RN TO ASSESS/TEACH, BOTANY TECHNICIAN/RACK MAKER TO OBSERVE/TEACH CARDIOPULMONARY SYSTEM TO IDENTIFY SIGNS [...] MEASURE ABDOMINAL GIRTH IF UNABLE TO WEIGH. [code = HEART FAILURE; RN TO ASSESS/TEACH, BOTANY TECHNICIAN/RACK MAKER TO OBSERVE/TEACH CARDIOPULMONARY SYSTEM TO IDENTIFY SIGNS [...] MEASURE ABDOMINAL GIRTH IF UNABLE TO WEIGH. ] Future Scheduled Test HYPERTENSI ON MANAGEMENT; RN TO ASSESS AND TEACH, BOTANY TECHNICIAN/RACK MAKER TO OBSERVE AND TEACH WARNING SIGNS AND SYMPTOMS TO AVOID HOSPITALIZATION. [code = HYPERTENSION MANAGEMENT; RN TO ASSESS AND TEACH, BOTANY TECHNICIAN/RACK MAKER TO OBSERVE AND TEACH WARNING SIGNS AND SYMPTOMS TO AVOID HOSPITALIZATION.] Future Scheduled Test ARRHYTHMIA MANAGEMENT; RN TO ASSESS AND TEACH, BOTANY TECHNICIAN/RACK MAKER TO OBSERVE AND TEACH WARNING SIGNS AND SYMPTOMS TO AVOID HOSPITALIZATION. [code = ARRHYTHMIA MANAGEMENT; RN TO ASSESS AND TEACH, BOTANY TECHNICIAN/RACK MAKER TO OBSERVE AND TEACH WARNING SIGNS AND SYMPTOMS TO AVOID HOSPITALIZATION.] Future Scheduled Test RESPIRATOR Y SYSTEM MANAGEMENT; RN TO ASSESS AND TEACH, BOTANY TECHNICIAN/RACK MAKER TO OBSERVE AND TEACH RELATED TO ALTERED RESPIRATORY STATUS TO MINIMIZE COMPLICATIONS AND REDUCE HOSPITALIZATION. [code = RESPIRATORY SYSTEM MANAGEMENT; RN TO ASSESS AND TEACH, BOTANY TECHNICIAN/RACK MAKER TO OBSERVE AND TEACH RELATED TO ALTERED RESPIRATORY STATUS TO MINIMIZE COMPLICATIONS AND REDUCE HOSPITALIZATION.] Future Scheduled Test PNEUMONIA MANAGEMENT; RN TO ASSESS AND TEACH, BOTANY TECHNICIAN/RACK MAKER TO OBSERVE AND TEACH SIGNS OF PNEUMONIA EXACERBATION AND PROVIDE EARLY INTERVENTIONS TO MINIMIZE RISK OF HOSPITALIZATION. [code = PNEUMONIA MANAGEMENT; RN TO ASSESS AND TEACH, BOTANY TECHNICIAN/RACK MAKER TO OBSERVE AND TEACH SIGNS OF PNEUMONIA EXACERBATION AND PROVIDE EARLY INTERVENTIONS TO MINIMIZE RISK OF HOSPITALIZATION.] Future Scheduled Test PAIN MANAG EMENT; RN TO ASSESS AND TEACH, RACK MAKER/BOTANY TECHNICIAN TO OBSERVE AND TEACH AND PROVIDE EDUCATION ON PAIN MANAGEMENT TECHNIQUES. [code = PAIN MANAGEMENT; RN TO ASSESS AND TEACH, RACK MAKER/BOTANY TECHNICIAN TO OBSERVE AND TEACH AND PROVIDE EDUCATION ON PAIN MANAGEMENT TECHNIQUES.] Future Scheduled Test FALL REDUC TION MANAGEMENT; RN TO ASSESS AND OBSERVE, BOTANY TECHNICIAN/RACK MAKER TO OBSERVE FALL RISK FACTORS AND EDUCATE PATIENT/CAREGIVER ON STRATEGIES TO MINIMIZE THE RISK OF FALLING. [code = FALL REDUCTION MANAGEMENT; RN TO ASSESS AND OBSERVE, BOTANY TECHNICIAN/RACK MAKER TO OBSERVE FALL RISK FACTORS AND EDUCATE PATIENT/CAREGIVER ON STRATEGIES TO MINIMIZE THE RISK OF FALLING.] Future Scheduled Test SKIN INTEG RITY RN TO ASSESS AND TEACH, BOTANY TECHNICIAN/RACK MAKER TO OBSERVE AND TEACH INTEGUMENTARY STATUS TO IDENTIFY CHANGES AND INTERVENE TO MINIMIZE COMPLICATIONS. PROVIDE SKILLED TEACHING OF GENERAL WOUND AND SKIN CARE AND PREVENTION RELATED TO ACTUAL ALTERED SKIN INTEGRITY [code = SKIN INTEGRITY RN TO ASSESS AND TEACH, BOTANY TECHNICIAN/RACK MAKER TO OBSERVE AND TEACH INTEGUMENTARY STATUS TO IDENTIFY CHANGES AND INTERVENE TO MINIMIZE COMPLICATIONS. PROVIDE SKILLED TEACHING OF GENERAL WOUND AND SKIN CARE AND PREVENTION RELATED TO ACTUAL ALTERED SKIN INTEGRITY ] Future Scheduled Test AGENCY MAY PERFORM A RESUMPTION OF CARE VISIT FOLLOWING ANY HOSPITAL ADMISSION. PT TO EVALUATE, OBSERVE / ASSESS, AND MONITOR, MUSIC PUBLISHER TO OBSERVE AND MONITOR, PROVIDE SKILLED THERAPEUTIC INTERVENTION, ACTIVITY, EDUCATION, AND TRAINING TO ADDRESS; PT/MUSIC PUBLISHER TO PROVIDE GAIT TRAINING FOR IMPROVED MOBILITY AND /OR TO NORMALIZE GAIT PATTERN NEUROMUSCULAR RE-EDUCATION / BALANCE / POSTURAL CONTROL (PT) THERAPEUTIC EXERCISES AND ESTABLISHING A HOME EXERCISE PROGRAM (PT/MUSIC PUBLISHER) PT/MUSIC PUBLISHER TO PROVIDE STAIR TRAINING PT / MUSIC PUBLISHER TO MONITOR AND EDUCATE ON OXYGEN SATURATION DURING ADLS/IADLS, NOTIFY PHYSICIAN AND/OR THE RN CLINICAL FAST FOOD MANAGER FOR PHYSICIAN NOTIFICATION AND IF O2 SATS BELOW PHYSICIAN ORDERED PARAMETERS AFTER 10 MIN OF REST PT / MUSIC PUBLISHER MAY EDUCATE ON PAIN MANAGEMENT CLINICALLY INDICATED, INCLUDING NON-PHARMACOLOGICAL PAIN REDUCTION TECHNIQUES AND USE OF CRYOTHERAPY, HEAORAND/OR FOAM ROLLING UP TO 20 MIN AT A TIME FOR PAIN MANAGEMENT 3-5 TIMES PER DAY TO SORE MUSCLES PT TO ASSESS / MUSIC PUBLISHER TO MONITOR FOR HEART FAILURE EXACERBATION AND RECORD PATIENT REPORTED WEIGHT, AND NOTIFY THE PHYSICIAN AND/OR THE RN CLINICAL FAST FOOD MANAGER FOR PHYSICIAN NOTIFICATION OF HF EXACERBATION (2LB WEIGHT GAIN IN 1 DAY, 5LBS IN A WEEK OR 5 LBS OVER BASELINE; INCREASED SOB, EDEMA, NEEDING MORE PILLOWS AT NIGHT, CRACKLES IN BASIS OF THE LUNGS OR PMI SHIFT) PT/MUSIC PUBLISHER TO IDENTIFY FALL RISK FACTORS; EDUCATE THE PATIENT/CAREGIVER ON WAYS TO REDUCE FALL RISK FACTORS AND ESTABLISH HOME EXERCISE PROGRAM TO MINIMIZE FALL RISK. MAY TEACH THE PATIENT FLOOR RECOVERY WHEN CLINICALLY APPROPRIATE PT TO ASSESS / MUSIC PUBLISHER TO MONITOR CARDIO/RESPIRATORY SYSTEM; AND NOTIFY THE PHYSICIAN AND/OR THE RN CLINICAL FAST FOOD MANAGER FOR PHYSICIAN NOTIFICATION FOR EARLY SIGNS AND SYMPTOMS OF EXACERBATION OR DETERIORATION. [code = AGENCY MAY PERFORM A RESUMPTION OF CARE VISIT FOLLOWING ANY HOSPITAL ADMISSION. PT TO EVALUATE, OBSERVE / ASSESS, AND MONITOR, MUSIC PUBLISHER TO OBSERVE AND MONITOR, PROVIDE SKILLED THERAPEUTIC INTERVENTION, ACTIVITY, EDUCATION, AND TRAINING TO ADDRESS; PT/MUSIC PUBLISHER TO PROVIDE GAIT TRAINING FOR IMPROVED MOBILITY AND /OR TO NORMALIZE GAIT PATTERN NEUROMUSCULAR RE-EDUCATION / BALANCE / POSTURAL CONTROL (PT) THERAPEUTIC EXERCISES AND ESTABLISHING A HOME EXERCISE PROGRAM (PT/MUSIC PUBLISHER) PT/MUSIC PUBLISHER TO PROVIDE STAIR TRAINING PT / MUSIC PUBLISHER TO MONITOR AND EDUCATE ON OXYGEN SATURATION DURING ADLS/IADLS, NOTIFY PHYSICIAN AND/OR THE RN CLINICAL FAST FOOD MANAGER FOR PHYSICIAN NOTIFICATION AND IF O2 SATS BELOW PHYSICIAN ORDERED PARAMETERS AFTER 10 MIN OF REST PT / MUSIC PUBLISHER MAY EDUCATE ON PAIN MANAGEMENT CLINICALLY INDICATED, INCLUDING NON-PHARMACOLOGICAL PAIN REDUCTION TECHNIQUES AND USE OF CRYOTHERAPY, HEAORAND/OR FOAM ROLLING UP TO 20 MIN AT A TIME FOR PAIN MANAGEMENT 3-5 TIMES PER DAY TO SORE MUSCLES PT TO ASSESS / MUSIC PUBLISHER TO MONITOR FOR HEART FAILURE EXACERBATION AND RECORD PATIENT REPORTED WEIGHT, AND NOTIFY THE PHYSICIAN AND/OR THE RN CLINICAL FAST FOOD MANAGER FOR PHYSICIAN NOTIFICATION OF HF EXACERBATION (2LB WEIGHT GAIN IN 1 DAY, 5LBS IN A WEEK OR 5 LBS OVER BASELINE; INCREASED SOB, EDEMA, NEEDING MORE PILLOWS AT NIGHT, CRACKLES IN BASIS OF THE LUNGS OR PMI SHIFT) PT/MUSIC PUBLISHER TO IDENTIFY FALL RISK FACTORS; EDUCATE THE PATIENT/CAREGIVER ON WAYS TO REDUCE FALL RISK FACTORS AND ESTABLISH HOME EXERCISE PROGRAM TO MINIMIZE FALL RISK. MAY TEACH THE PATIENT FLOOR RECOVERY WHEN CLINICALLY APPROPRIATE PT TO ASSESS / MUSIC PUBLISHER TO MONITOR CARDIO/RESPIRATORY SYSTEM; AND NOTIFY THE PHYSICIAN AND/OR THE RN CLINICAL FAST FOOD MANAGER FOR PHYSICIAN NOTIFICATION FOR EARLY SIGNS AND SYMPTOMS OF EXACERBATION OR DETERIORATION. ] Goal Patient Goal - B E ABLE TO WALK WITHOUT SHORTNESS OF BREATH, GET RID OF COUGH Goal Provider Goal - A PLAN OF [...] AN ABILITY TO ADHERE TO SELF-MANAGEMENT OF HTN TO MINIMIZE COMPLICATIONS AND AVOID HOSPITALIZATION BY [...] WILL VERBALIZE/DEMONSTRATE AN ABILITY TO ADHERE TO PNEUMONIA SELF-MANAGEMENT TO MINIMIZE COMPLICATIONS AND AVOID HOSPITALIZATION BY END OF EPISODE. Goal Provider Goal - PATIENT / CAREGIVER WILL VERBALIZE / DEMONSTRATE UNDERSTANDING OF PAIN CONTROL MEASURES BY EOE Goal Provider Goal - PATIENT/CAREGIVER WILL VERBALIZE/DEMONSTRATE UNDERSTANDING OF FALL RISK FACTORS AND IMPLEMENT STRATEGIES TO MINIMIZE FALL RISK. PATIENT/CAREGIVER WILL VERBALIZE/DEMONSTRATE AN ABILITY TO ADHERE TO FALL REDUCTION SELF-MANAGEMENT AND LIFE-STYLE CHANGES BY EOE Goal Provider Goal - CHANGES IN SKIN INTEGRITY STATUS WILL BE IDENTIFIED AND REPORTED TO THE PHYSICIAN FOR PROMPT INTERVENTION. PATIENT / CAREGIVER WILL VERBALIZE/DEMONSTRATE ADEQUATE KNOWLEDGE OF INTEGUMENTARY STATUS AND APPROPRIATE MEASURES TO PROMOTE SKIN INTEGRITY AND PREVENT INJURY BY EOE Goal Provider Goal - PT LTG: PATIENT WILL DEMONSTRATE REDUCED FALL RISK EVIDENCED BY IMPROVED SELF- SELECTED WALKING SPEED FROM 0.8 TO 1.0 WITHIN 9 WEEKS PT LTG: PATIENT WILL DEMONSTRATE REDUCED FALL RISK EVIDENCED BY TUG SCORE IMPROVING FROM 15 SECONDS TO 10 SECONDS WITHIN 9 WEEKS PT LTG: PATIENT WILL DEMONSTRATE IMPROVED FUNCTIONAL STRENGTH EVIDENCED BY FIVE TIMES SIT TO STAND TEST IMPROVING FROM NOT TESTED TO 18 SECONDS WITHIN 9 WEEKS IN ORDER TO INCREASE ABILITY TO USE STAIRS PT LTG: PATIENT WILL DEMONSTRATE IMPROVED ABILITY TO SAFELY NEGOTIATE STAIRS FROM OUTSIDE TO BACK DOOR INDEPENDENTLY USING RAILINGS IN ORDER TO BE ABLE TO PUT TRASH IN DUMPSTER PT LTG: PATIENT WILL MAINTAIN OXYGEN SATURATION WITHIN PHYSICIAN ORDERED PARAMETERS THROUGHOUT EPISODE OF CARE. PT GOAL: PATIENT WILL DEMONSTRATE UNDERSTANDING OF PAIN MANAGEMENT TECHNIQUES EVIDENCED BY REDUCTION IN PAIN BY 50% WITHING 30 MINUTES OF ONSET PT GOAL: PATIENTS HEART FAILURE WILL REMAIN WELL CONTROLLED THROUGHOUT EPISODE OF CARE. PT LTG: PATIENT/CAREGIVER WILL DEMONSTRATE ADHERENCE TO FALL REDUCTION SELF-MANAGEMENT AND REDUCING FALL RISK FACTORS TO MINIMIZE FALL RISK BY END OF EPISODE . PT LTG: PATIENT WILL NOT EXPERIENCE CARDIAC OR RESPIRATORY COMPLICATIONS THROUGHOUT THE EPISODE OF CARE. Encounters Start Date/Time End Date/Time Encounter Type Admission Type Attending [facility] Facility Care Department Encounter ID Discharge Date Discharge Status Discharge Condition Discharge Reason Percent Goals Met 2024-09-22 00:00:00 2024-11-20 00:00:00 Outpatient [facility] [id number]
== END 2024-10-08 14:04 | disposition home or self-care (01) ==
LOC: HO.CT 14:03
PROVIDERS: Nurse Practitioner Family; PCP Physician Assistant; Visit Provider Physician Assistant
DX: J44.9 Chronic obstructive pulmonary disease, unspecified (principal); R06.09 Other forms of dyspnea; R63.4 Abnormal weight loss; I10 Essential (primary) hypertension; E11.9 Type 2 diabetes mellitus without complications; E78.5 Hyperlipidemia, unspecified; I48.91 Unspecified atrial fibrillation; R05.3 Chronic cough; Z12.5 Encounter for screening for malignant neoplasm of prostate
CPT/HCPCS: 36415; 71250; 80048; 80061; 80076; 83036; 83880; 84153; 84439; 84443; 85025; 85379; 99212

== ENCOUNTER → 2024-10-08 14:08 | Outpatient (BNV) | payer MEDICARE, OTHER, SELFPAY | PROVIDERS: PCP Physician Assistant; Visit Provider Radiology Diagnostic Radiology | DX: K74.60 Unspecified cirrhosis of liver (principal); R91.8 Other nonspecific abnormal finding of lung field; I51.7 Cardiomegaly | CPT/HCPCS: 71250 ==

== ENCOUNTER 2024-10-12 10:26 | Outpatient (AMB) | payer MEDICARE, OTHER, SELFPAY ==
[2024-10-12 10:42] VITALS: BP 123/59; PULSE 87; O2SAT 97; BMI 25.8
--- NOTE | 2024-10-12 10:42 | MHC.OFFVIS ---
Vital Signs 10/12/24 10:42 Height 5 ft 6 in Weight 159 lb 13.362 oz BMI 25.8 BP 123/59 L Blood Pressure Location Lt brachial Position Sitting Pulse 87 Pulse Source Pulse Oximeter Pulse Oximetry (%) 97 Oxygen Delivery Method Room Air Intake Visit Reasons: Dyspnea/COPD Intake Note: pt is here as a new patient for follow up of ct scan, shortness of breath with walking, cough x 4 weeks with pain associated with this and coughing makes it worse. Sales Advisory Manager Required: No Allergies No Known Allergies Allergy (Verified 10/12/24 16:39) Medication List - Last Reconciled 10/12/24 by Grace Anderson MD amiodarone 200 mg PO BID apixaban (Eliquis) 2.5 mg PO BID atorvastatin 40 mg PO DAILY benzonatate 100 mg PO BID PRN betamethasone dipropionate 0.05% topical codeine-guaifenesin 10-100 mg/5 mL 10 mL PO Q4-6H PRN doxycycline hyclate 100 mg PO BID 15 days empagliflozin (Jardiance) mg PO finasteride 5 mg PO DAILY fluticasone propion-salmeterol 250-50 mcg/dose (Advair Diskus) 1 ea inhalation BID furosemide 40 mg PO DAILY guaifenesin ER (Mucinex) 600 mg PO BID 30 days insulin aspart U-100 (Novolog FlexPen U-100 Insulin aspart) subcut insulin glargine (Lantus Solostar U-100 Insulin) 18 units subcut BID insulin syringe-needle U-100 (BD Insulin Syringe Ultra-Fine) As directed ipratropium-albuterol 0.5 mg-3 mg(2.5 mg base)/3 mL 3 mL inhalation BID PRN 30 days lorazepam 0.5 mg PO BEDTIME methocarbamol 500 mg PO TID PRN metoprolol succinate ER 25 mg PO DAILY metoprolol tartrate 12.5 mg PO BID silver sulfadiazine 1% appl topical terazosin 5 mg PO BEDTIME 90 days trazodone 25 - 50 mg (0.5 - 1 x 50 mg) PO BEDTIME PRN Do you need a note to return to daycare/school/sports/work: No HPI HPI Dyspnea/COPD: Details: TONY IS 83 YEARS OLD VERY PLEASANT GENTLEMAN WHO IS REFERRED FOR PULMONARY EVALUATION HE HAS HAD PERSISTENT COUGH FOR THE PAST 3-4 WEEKS. HE HAS BEEN TREATED OUTPATIENT WITH THE COURSE OF AUGMENTIN, ALSO A COURSE OF PREDNISONE, COUGH MEDICINE ESPECIALLY BENZONATATE, AND HE DOES NOT SEEM TO BE GETTING BETTER. THE COUGH IS WORSE AT NIGHT, MOSTLY NONPRODUCTIVE HE HAS DIFFICULTY IN BRINGING UP THE PHLEGM. HE DENIES ANY. 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 HAS HAD PERIPHERAL VASCULAR DISEASE, WITH AN DVT STATUS POST THROMBECTOMY LEFT LEG. HE IS BEING TREATED FOR DIABETES MELLITUS AND BPH HE DOES HAVE HISTORY OF COPD AND IS ON ADVAIR 250-51 INHALATION B.I.D. AT PRESENT HE GETS SHORT OF BREATH EASILY. IS MAIN ISSUE IS ONGOING COUGH SINCE 3-4 WEEKS AGO. [facility] Medical History (Updated 10/12/24 @ 17:04 by Grace Anderson MD) Bronchitis GONGORA (dyspnea on exertion) Aortic stenosis Anemia of chronic disease CKD (chronic kidney disease) PAD (peripheral artery disease) COPD (chronic obstructive pulmonary disease) HFrEF (heart failure with reduced ejection fraction) NK/T-cell lymphoma Atrial fibrillation Hyperlipidemia Diabetes mellitus HTN (hypertension) Rotator cuff tendonitis Surgical History S/P bone marrow transplant History of colonoscopy (~01/19/18) History of surgery Social History Patient Tobacco Use Status: Former Tobacco user Tobacco use type: Cigarette e-Cigarette/Vaping Use: Never Used Review of Systems Const All systems reviewed & are unremarkable except as noted in HPI and below Eyes Reports no additional complaints ENT Reports nasal congestion (MILD) Card Reports chest pain (MOSTLY WITH COUGH, ANTERIORLY) and Reports irregular heart rhythm Resp Reports as per HPI GI Reports no additional complaints Reports difficulty urinating Musc Reports muscle weakness (MILD GENERALIZED) Skin/Breast Details: EXTENSIVE PURPURIC SPOTS OVER BOTH FOREARMS Psych Reports no additional complaints Endo Reports other (DIABETES MELLITUS) Moe/Lymph Details: PAST HISTORY OF LYMPHOMA, IN ACTIVE AT THIS TIME Aller/Immun Reports no additional complaints Physical Exam Vital Signs: Last Vital Signs Pulse 87 10/12/24 10:42 BP 123/59 L 10/12/24 10:42 Pulse Ox 97 10/12/24 10:42 Oxygen Delivery Method Room Air 10/12/24 10:42 BMI result Body Mass Index 25.8 HAVING FREQUENT COUGH DURING CONVERSATION Const General: no acute distress, alert and awake; No comfortable (FREQUENT COUGH) Orientation/consciousness: patient oriented x3 HEENT Head: Yes normal to inspection General nose exam: No nasal polyps present and No nasal discharge present Face and sinus: Yes sinuses nontender Mouth: oropharynx normal Throat: Yes posterior oropharynx normal Eyes General: appearance normal, both eyes and all related structures Neck Neck: Yes normal visual inspection, Yes no lymphadenopathy, Yes trachea midline and Yes no JVD Thyroid: Thyroid normal Chest Chest palpation & inspection: normal inspection of the chest, normal palpation of entire chest wall and no tenderness Resp Other: PERCUSSION NOTE IS RESONANT, THERE IS NO LOCALIZED TENDERNESS EVEN THOUGH HE COMPLAINS OF ANTERIOR CHEST PAIN, BREATH SOUNDS ARE DISTANT. HE DOES HAVE SCATTERED RHONCHI AND CREPITATIONS ON BOTH SIDES. DEEP INSPIRATORY EFFORTS ARE MAKING HIM COUGH. Cardio Palpation: normal PMI Rate: regular rate Rhythm: regular rhythm Heart sounds: no gallops and no murmurs GI Palpation (GI): Soft to palpation, nontender, No hepatosplenomegaly present and no masses Auscultation: normal bowel sounds Back/Spine/Pelvis Thoracic/Lumbar Spine: thoracic and lumbar spine normal to inspection Skin Other: MULTIPLE PURPURIC SPOTS ON BOTH FOREARMS Neuro General: patient oriented x3 and no focal motor deficits Cranial nerves: Yes CN's II-XII intact bilaterally Extrem Other: LEFT LEG HAS LONG SCARS ANTERIORLY AND POSTERIORLY FROM PREVIOUS VASCULAR SURGERY General: Yes normal to inspection, Yes no clubbing, cyanosis or edema and Yes no calf tenderness Psych Appearance: grossly normal and well kempt Speech and movement: Normal speech and movement present Assessment & Plan Assessment & Plan (1) COPD (chronic obstructive pulmonary disease): Comment: PATIENT HAS BEEN TREATED WITH ADVAIR 250-51 INHALATION B.I.D. AND MOST LIKELY FOR CHRONIC OBSTRUCTIVE PULMONARY DISEASE. AT PRESENT HIS MAIN PROBLEM IS ONGOING COUGH. Code(s): J44.9 - Chronic obstructive pulmonary disease, unspecified Category: Medical Plan: CONTINUE ADVAIR 250-50 B.I.D.. I WILL START HIM ON IPRATROPIUM-ALBUTEROL SOLUTION IN THE NEBULIZER TO USE AT LEASE B.I.D.. AND MAY USE ALBUTEROL HFA 2 PUFFS Q 6 HOURS P.R.N. (2) Persistent cough for 3 weeks or longer: Comment: HE HAS HAD POST VIRAL INFECTION COUGH, FEELS LIKE THERE IS SOME MUCUS THAT HE CAN NOT BRING UP. Code(s): R05.3 - Chronic cough Category: Medical Plan: I THINK USE OF IPRATROPIUM-ALBUTEROL SOLUTION IN THE NEBULIZER SHOULD HELP. MUCINEX 600 MG B.I.D. PRESCRIBED A MUCOLYTIC AGENT. (3) Bronchitis: Comment: PATIENT SEEMS TO HAVE ONGOING LOW-GRADE BRONCHITIS. HE HAS HAD A COURSE OF PREDNISONE WELL AUGMENTIN WITHOUT MUCH HELP Code(s): J40 - Bronchitis, not specified as acute or chronic Category: Medical Plan: BEING TREATED EMPIRICALLY WITH DOXYCYCLINE 100 B.I.D. FOR 2 WEEKS (4) GONGORA (dyspnea on exertion): Comment: DYSPNEA ON EXERTION IS PART OF HIS COPD AND ALSO AGGRAVATED BY RECENT BRONCHITIS. Code(s): R06.09 - Other forms of dyspnea Category: Medical Plan: EXPLAINED TO THE PATIENT AND HOPEFULLY IT WILL SUBSIDE GRADUALLY Medications: New doxycycline hyclate 100 mg PO BID 30 tabs 0RF Bronchitis 15 days guaifenesin ER (Mucinex) 600 mg PO BID 60 tabs 1RF cough 30 days ipratropium-albuterol 0.5 mg-3 mg(2.5 mg base)/3 mL 3 mL inhalation BID PRN 180 mL 2RF wheezing/cough 30 days Coding Level of Care Code New Pt Level 4 (58704) Diagnoses COPD (chronic obstructive pulmonary disease) J44.9 Persistent cough for 3 weeks or longer R05.3 Bronchitis J40 GONGORA (dyspnea on exertion) R06.09
--- OUTSIDE RECORDS SUMMARY | 2024-10-12 11:36 | XMS_ITS | Clinical Summary ---
Author Organization [facility] Address [address] [place] [address] Phone Care Team Providers Care Numerical Control Router Operator Name Role Phone Donte Powell MD [...] Active ferrous sulfate 325 mg (65 mg [place] iron) tablet Take 325 mg by mouth [...] - 09/27/2024 11:59 PM EDT Hospital Encounter [facility] [address] [place] [address] Babak Rodriguez MD Discharge Disposition: Home or Self Care 09/27/2024 Transcribe Orders [facility] [address] [place] [id number] Babak Rodriguez MD Severe aortic stenosis (Primary Dx) 08/12/2024 Orders Only [facility] [address], [address] [place] [address] Provider, MD Malik from Last 3 Months [...] component not applicable or not reported. g/dL [facility]/[address] M-protein GL 0.085(H) g/dL [facility] DR M-protein AK Test component not applicable or not reported. g/dL [facility] DR M-protein AL Test component not applicable or not reported. g/dL [facility] DR M-protein MK Test component not applicable or not reported. g/dL [facility] DR M-protein ML Test component not applicable or not reported. g/dL [facility] DR Glycosylation Test component not applicable or not reported. [facility] Flag, M-protein Isotype Positive(A) Negative [facility] QMPTS Interpretation SEE NOTE [facility] Comment: (NOTE) IgG lambda 0.085 g/dL Suggest Immunoglobulin Free Light Chains, Serum. ADDITIONAL INFORMATION The submitted sample was assayed by five separate immunopurifications for IgG, IgA, IgM, kappa and lambda. The result reflects the findings of either no monoclonal protein detected or those monoclonal immunoglobulins that were detected. This test was developed and its performance characteristics determined by [facility] in a manner consistent with CLIA requirements. This test has not been cleared or approved by the U.S. Food and Drug Administration. IgA 632(H) 61 - 356 mg/dL [facility] IgM 283 37 - 286 mg/dL [facility] IgG 1,860(H) 767 - 1,590 mg/dL [facility] Therapeutic Antibody Administered? Unknown [facility] Comment:Corrected on 09/29 A T 1640: previously reported as Unknown Blood 09/27/2024 8:30 AM EDT 09/27/2024 9:27 AM EDT Babak Rodriguez MD LAB BLOOD ORDERABLES Edited Res ult - Final Performing Organization Address City/[facility] Co de Phone Number [facility]/[address] [place] [address] * (ABNORMAL) Free light chains, serum (09/27/2024 8:30 AM EDT) Altus Free Light Chain 8.67(H) 0.3300 - 1.94 mg/dL [facility] Lambda Free Light Chain 8.55(H) 0.5700 - 2.63 mg/dL [facility] Altus/Lambda FLC Ratio 1.01 0.2600 - 1.65 [facility] Blood 09/27/2024 8:30 AM EDT 09/27/2024 9:27 AM EDT Babak Rodriguez MD LAB BLOOD ORDERABLES Final Resu lt Performing Organization Address City/[facility]/ZIP Co de Phone Number [facility]/PATH [address] [place] [address] * (ABNORMAL) CBC and differential (09/27/2024 8:30 AM EDT) WBC 8.29 4.00 - 11.00 K/uL [facility] RBC 3.11(L) 4.50 - 5.90 M/uL [facility] HGB 10.0(L) 13.5 - 17.5 g/dL [facility] HCT 32.3(L) 41.0 - 53.0 % [facility] PLT 195 150 - 450 K/uL [facility] MCV 103.9(H) 80.0 - 100.0 fL [facility] MCH 32.2(H) 27.0 - 31.0 pg [facility] MCHC 31.0(L) 32.0 - 36.0 g/dL [facility] Comment:Specimen warmed to 3 7 degrees C. Possible cold agglutinin present. RDW 17.5(H) 11.5 - 14.5 % [facility] MPV 11.9 8.4 - 12.0 fL [facility] NRBC 0.00 0.00 /100 WBCs [facility] ABSOLUTE NRBC 0.00 0.00 K/uL [facility] DIFF METHOD Auto [facility] NEUTS 82.4(H) 48.0 - 76.0 % [facility] LYMPHS 6.3(L) 18.0 - 41.0 % [facility] MONOS 9.4 4.0 - 11.0 % [facility] EOS 0.4 0.0 - 5.0 % [facility] BASOS 0.2 0.0 - 1.5 % [facility] Granulocytes, immature (%) 1.3(H) 0.0 - 0.9 % [facility] ABSOLUTE NEUTS 6.83 1.92 - 7.60 K/uL [facility] ABSOLUTE LYMPHS 0.52(L) 0.72 - 4.10 K/uL [facility] ABSOLUTE MONOS 0.78 0.16 - 1.10 K/uL [facility] ABSOLUTE EOS 0.03 0.00 - 0.50 K/uL [facility] ABSOLUTE BASOS 0.02 0.00 - 0.15 K/uL [facility] Granulocytes, immature 0.11(H) 0.00 - 0.09 K/uL [facility] Blood 09/27/2024 8:30 AM EDT 09/27/2024 9:27 AM EDT us Babak Rodriguez MD LAB BLOOD ORDERABLES Final Resu lt [facility] [address] [place] [address] * (ABNORMAL) Basic metabolic panel (09/27/2024 8:30 AM EDT) SODIUM 132(L) 133 - 146 mmol/L [facility] CHLORIDE 98 96 - 108 mmol/L [facility] POTASSIUM 4.1 3.3 - 5.1 mmol/L [facility] CO2 20(L) 21 - 35 mmol/L [facility] BUN 46(H) 6 - 19 mg/dL [facility] CREATININE 1.70(H) 0.5 - 1.5 mg/dL [facility] GLUCOSE 332(H) 70 - 99 mg/dL [facility] CALCIUM 8.5 8.4 - 10.3 mg/dL [facility] EGFR 40(L) >59 mL/min/1.7 3m2 [facility] Comment:Estimated glomerular filtration rate calculated using the CKD-EPI refit equation. ANION GAP 18 10 - 20 mmol/L [facility] Blood 09/27/2024 8:30 AM EDT 09/27/2024 9:27 AM EDT Babak Rodriguez MD LAB BLOOD ORDERABLES Final Resu lt [facility] [address] [place] [address] from Last 3 Months Insurance MEDICARE PART A & B FOR LIFE MEDICARE SUPPLEMENT [facility] Address: [address] [address] MEDICARE PART A & B FOR LIFE MEDICARE SUPPLEMENT [facility] Address: [address] [address] MEDICARE PART A & B MEDICARE PART A & B MEDICARE PART A & B FOR LIFE MEDICARE SUPPLEMENT MEDICARE PART A & B MEDICARE PART A & B MEDICARE SUPPLEMENT MEDICARE PART A & B FOR LIFE MEDICARE SUPPLEMENT [facility] Address: [address] [address] MEDICARE PART A & B FOR LIFE MEDICARE SUPPLEMENT Care Teams Numerical Control Router Operator Relationship Specialty Start Date End Date Donte Powell MD [address] [place] [address] Dr [place], [place] [address] PCP - General Internal Medicine 11/30/23 Additional Source Comments The information contained in this document represents components of the legal health record. It is not the complete legal health record.[facility]
--- OUTSIDE RECORDS SUMMARY | 2024-10-12 11:36 | XMS_ITS | Clinical Summary ---
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 5 Open angle [...] Visit [facility] [address] [place] [address] Homar Cadet [...] Visit [facility] [address] [place] [address] Homar Cadet MD [address] [facility] [address] [place] [id number] Health Maintenance Due Date Last Done Comments [...] Completed 10/19/2018, 10/16/2016, 11/19/2011 Insurance Medicare [facility] Care Teams Sign Painter Helper Relationship Specialty Start Date End Date Donte Powell MD [address] [place] GHOSH PCP - General Internal Medicine 05/26/24
--- OUTSIDE RECORDS SUMMARY | 2024-10-12 11:36 | XMS_ITS | Encounter Summary ---
Author Organization [facility] Address [address] [place] [address] Care Team Providers Care Cane Weigher Name Role Phone Donte Powell MD Primary Care Provider [phone] Encounter Details Date Type Department Care Team (Late st Contact Info) Description 05/29/2024 Lab Requisition [facility] - [facility] Lab [address] [facility] [place] [address] Ross Saul MD [address] [place] [address] Unspecified atrial fibrillation (CMS/HCC V24, [...] [facility] - 06/03/2024 6:05 AM EDT Test(s) 501457-Rodziyjgu GI; 582089-Sclgoyyhj GII was developed and its performance characteristics determined by [facility]. It has not been cleared or approved by the Food and Drug Administration. Ross Saul MD LAB MICROBIOLOGY - GENERAL ORDE [facility] Final Result Performing Organization Address City/[facility]/ZIP Co de Phone Number [facility] * - Miscellaneous Test (05/29/2024 1:45 PM EST) Miscellaneous Test COMMENT 2024 6:05 AM EDT [facility] Stool 05/29/2024 1:45 PM EST 05/29/2024 6:13 PM EST Narrative [facility] - 06/03/2024 6:05 AM EDT Performed At: [address] [id number] Cody Paul MD Ph:[phone] Performed At: 02 [facility] [place] [address] [place] [address], [address] [place] [id number] Jordan Aquino MD Ph:[phone] Ross Saul MD LAB BLOOD ORDERABLES Final Resu lt Performing Organization Address City/[facility]/ZIP Co de Phone Number [facility] documented in this encounter Visit Diagnoses Diagnosis Unspecified atrial fibrillation (CMS/HCC V24, CMS/HCC V28) Diarrhea, unspecified documented in this encounter Additional Health Concerns Infection Onset Date Last Indicated Resolved Time Norovirus 05/29/2024 05/29/2024 documented as of this encounter Care Teams Cane Weigher Relationship Specialty Start Date End Date Donte Powell MD [address] [place] [address] Dr Rl [place] PCP - General Internal Medicine 09/21/18 documented as of this encounter
--- OUTSIDE RECORDS SUMMARY | 2024-10-12 11:36 | XMS_ITS | Encounter Summary ---
Author Organization [facility] Address [address] [place] [address] Care Team Providers Care Sign Erector Name Role Phone Donte Powell Primary Care Provider [phone] Encounter Details Date Type Department Care Team (Late st Contact Info) Description 03/21/2020 Orders Only [facility] [address] [place] [address] Violeta Plascencia, PharmD [address] [place], [place] [id number] Social History Tobacco Use Types Packs/Day Years [...] on filedocumented in this encounter Care Teams Sign Erector Relationship Specialty Start Date End Date Donte Powell [address] [place] [address] dr [place], [place] [address] PCP - General 10/10/16 documented as of this encounter
== END 2024-10-12 11:32 | disposition home or self-care (01) ==
LOC: HO.HPS 10:27
PROVIDERS: PCP Physician Assistant; Referring Provider Physician Assistant; Visit Provider Internal Medicine
DX: J44.9 Chronic obstructive pulmonary disease, unspecified (principal); R05.3 Chronic cough; J40 Bronchitis, not specified as acute or chronic; R06.09 Other forms of dyspnea
CPT/HCPCS: 99204

== ENCOUNTER → 2024-10-12 10:26 | Outpatient (BNVA) | payer MEDICARE, OTHER, SELFPAY | PROVIDERS: PCP Physician Assistant; Referring Provider Physician Assistant; Visit Provider Internal Medicine | DX: J44.9 Chronic obstructive pulmonary disease, unspecified (principal); R05.3 Chronic cough; J40 Bronchitis, not specified as acute or chronic; R06.09 Other forms of dyspnea | CPT/HCPCS: 99202 ==

== ENCOUNTER 2025-01-25 12:59 | Outpatient (REF) | payer MEDICARE, OTHER, SELFPAY ==
[2025-01-25 14:17] LABS: MANUAL DIFF FLAG NO
[2025-01-25 14:30] LABS: Hematocrit 33.3 % (42.0-52.0); Hemoglobin 9.8 g/dl (14.0-18.0); Imm Gran Abs Auto 0.02 X10*3/uL (0.00-0.03); Imm Gran Pct Auto 0.4 % (0.0-0.4); Lymphocytes Absolute Auto 1.0 X10*3/uL (1.2-4.9); Mean Corpuscular HGB Conc 29.4 g/dl (31.0-36.0); Mean Corpuscular Hemoglobin 30.6 pg (27.0-33.0); Mean Corpuscular Volume 104.1 fL (80.0-98.0); NRBC Abs Auto 0.000 X10*3/uL (0.0-0.012); NRBC Pct Auto 0.0 /100WBC (0.0-0.2); Platelet Count 189 X10*3/uL (160-400); Red Blood Count 3.20 X10*6/uL (4.60-5.80); White Blood Count 5.2 X10*3/uL (4.8-10.8)
[2025-01-25 15:14] LABS: Iron 41 mcg/dL (45-160); Percent Iron Saturation 15 % (15-50); Potassium 4.9 mmol/L (3.3-5.1); Total Iron Binding Capacity 275 mcg/dL (228-428); Unsaturated Iron Binding 234 ug/dL
[2025-01-25 15:39] LABS: Vitamin B12 1499 pg/mL (200-900)
--- OUTSIDE RECORDS SUMMARY | 2025-01-25 17:03 | XMS_ITS | Encounter Summary ---
Author Organization [facility] Address [address] [place] [address] Care Team Providers Care Geriatric Aide Name Role Phone Donte Powell MD Primary Care Provider [phone] Encounter Details Date Type Department Care Team (Late st Contact Info) Description 01/14/2025 Lab Requisition [facility] - Main Lab [address] [facility] [place] [address] Ross Saul MD [address] [place] [address] Heart failure, unspecified (CMS/HCC V24, CMS/HCC V28); Essential (primary) hypertension; Hyperlipidemia, unspecified Social History Tobacco Use Types Packs/Day [...] Name Priority Date/Time Associated Diagnosis Comments CBC WITH AUTO DIFFERENTIAL Routine 01/17/2025 5:50 AM EDT Heart failure, unspecified (CMS/HCC V24, CMS/HCC V28) Essential (primary) hypertension Hyperlipidemia, unspecified CBC AND DIFFERENTIAL Routine 01/17/2025 5:50 AM EDT Heart failure, unspecified (CMS/HCC V24, CMS/HCC V28) Essential (primary) hypertension Hyperlipidemia, unspecified COMPREHENSIVE METABOLIC PANEL Routine 01/17/2025 5:50 AM EDT Heart failure, unspecified (CMS/HCC V24, CMS/HCC V28) Essential (primary) hypertension Hyperlipidemia, unspecified documented in this encounter Results * (ABNORMAL) CBC auto differential (01/17/2025 5:50 AM EDT) WBC 4.2(L) 4.8 - 10.8 K/mcL LAB HEMETOLOGY METHOD 01/17/2025 10:22 AM [facility] RBC 2.70(L) 4.50 - 5.50 M/mcL LAB HEMETOLOGY METHOD 01/17/2025 10:22 AM [facility] Hemoglobin 8.3(L) 13.5 - 17.5 g/dL LAB HEMETOLOGY METHOD 01/17/2025 10:22 AM [facility] Hematocrit 28.1(L) 42.0 - 54.0 % LAB HEMETOLOGY METHOD 01/17/2025 10:22 AM [facility] MCV 106.0(H) 79.0 - 98.0 FL LAB HEMETOLOGY METHOD 01/17/2025 10:22 AM [facility] MCH 31.3 27.0 - 32.0 pcg LAB HEMETOLOGY METHOD 01/17/2025 10:22 AM [facility] LAB MCHC 29.5(L) 32.0 - 37.0 g/dL LAB HEMETOLOGY METHOD 01/17/2025 10:22 AM [facility] RDW 15.8(H) 11.0 - 15.0 % LAB HEMETOLOGY METHOD 01/17/2025 10:22 AM [facility] Platelets 154 130 - 400 K/mcL LAB HEMETOLOGY METHOD 01/17/2025 10:22 AM [facility] MPV 12.6(H) 7.0 - 11.0 FL LAB HEMETOLOGY METHOD 01/17/2025 10:22 AM [facility] NRBC 0.0 <1.0 % LAB HEMETOLOGY METHOD 01/17/2025 10:22 AM [facility] NRBC Absolute 0.00 <0.10 K/mcL LAB HEMETOLOGY METHOD 01/17/2025 10:22 AM [facility] Neutrophils Relative 53.2 % LAB HEMETOLOGY METHOD 01/17/2025 10:22 AM [facility] Lymphocytes Relative 26.4 % LAB HEMETOLOGY METHOD 01/17/2025 10:22 AM [facility] Monocytes Relative 18.5 % LAB HEMETOLOGY METHOD 01/17/2025 10:22 AM [facility] Eosinophils Relative 1.2 % LAB HEMETOLOGY METHOD 01/17/2025 10:22 AM [facility] Basophils Relative 0.2 % LAB HEMETOLOGY METHOD 01/17/2025 10:22 AM [facility] Immature Granulocytes Relative 0.5 % LAB HEMETOLOGY METHOD 01/17/2025 10:22 AM [facility] Neutrophils Absolute 2.21 1.50 - 7.00 K/mcL LAB HEMETOLOGY METHOD 01/17/2025 10:22 AM [facility] Lymphocytes Absolute 1.10 1.00 - 5.00 K/mcL LAB HEMETOLOGY METHOD 01/17/2025 10:22 AM [facility] Monocytes Absolute 0.77 0.20 - 1.00 K/mcL LAB HEMETOLOGY METHOD 01/17/2025 10:22 AM [facility] Eosinophils Absolute 0.05 0.00 - 0.50 K/mcL LAB HEMETOLOGY METHOD 01/17/2025 10:22 AM [facility] Basophils Absolute 0.01 0.00 - 0.20 K/mcL LAB HEMETOLOGY METHOD 01/17/2025 10:22 AM EDT [facility] Immature Granulocytes Absolute 0.02 0.00 - 0.03 K/[facility] LAB HEMETOLOGY METHOD 01/17/2025 10:22 AM EDT [facility] Blood Venous blood specimen / Unknown Venipuncture / Unknown 01/17/2025 5:50 AM EDT 01/17/2025 10:05 AM EDT us Ross Saul MD LAB BLOOD ORDERABLES Final Resu lt [facility] [address] [place] [address], [place] [phone] * (ABNORMAL) Comprehensive metabolic panel (01/17/2025 5:50 AM EDT) Sodium 141 133 - 145 mmol/L LAB CHEMISTRY METHOD 01/17/2025 10:57 AM [facility] Potassium 4.2 3.5 - 5.5 mmol/L LAB CHEMISTRY METHOD 01/17/2025 10:57 AM [facility] Chloride 109 96 - 110 mmol/L LAB CHEMISTRY METHOD 01/17/2025 10:57 AM [facility] CO2 28 21 - 32 mmol/L LAB CHEMISTRY METHOD 01/17/2025 10:57 AM [facility] Anion Gap 4 3 - 11 LAB CHEMISTRY METHOD 01/17/2025 10:57 AM [facility] Glucose 77 70 - 100 mg/dL LAB CHEMISTRY METHOD 01/17/2025 10:57 AM [facility] BUN 19 5 - 25 mg/dL LAB CHEMISTRY METHOD 01/17/2025 10:57 AM [facility] Creatinine 1.11 0.70 - 1.30 mg/dL LAB CHEMISTRY METHOD 01/17/2025 10:57 AM [facility] eGFR 66 >=60 mL/min/1. 73m2 LAB CHEMISTRY METHOD 01/17/2025 10:57 AM [facility] Comment:Calculation based on the Chronic Kidney Disease Epidemiology Collaboration (CKD-EPI) equation refit without adjustment for race. BUN/Creatinine Ratio 17.1 LAB CHEMISTRY METHOD 01/17/2025 10:57 AM [facility] Calcium 8.6 8.5 - 10.5 mg/dL LAB CHEMISTRY METHOD 01/17/2025 10:57 AM [facility] AST (SGOT) 21 10 - 42 unit/L LAB CHEMISTRY METHOD 01/17/2025 10:57 AM [facility] ALT (SGPT) 17 10 - 60 unit/L LAB CHEMISTRY METHOD 01/17/2025 10:57 AM [facility] Alkaline Phosphatase 143(H) 42 - 121 unit/L LAB CHEMISTRY METHOD 01/17/2025 10:57 AM [facility] Total Protein 6.5 6.0 - 8.0 g/dL LAB CHEMISTRY METHOD 01/17/2025 10:57 AM [facility] Albumin 2.5(L) 3.2 - 5.0 g/dL LAB CHEMISTRY METHOD 01/17/2025 10:57 AM [facility] Total Bilirubin 0.5 0.0 - 1.4 mg/dL LAB CHEMISTRY METHOD 01/17/2025 10:57 AM [facility] Blood Venous blood specimen / Unknown Venipuncture / Unknown 01/17/2025 5:50 AM EDT 01/17/2025 10:05 AM EDT us Ross Saul MD LAB BLOOD ORDERABLES Final Resu lt [facility] [address] [place] [address], [place] [phone] documented in this encounter Visit Diagnoses Diagnosis Heart failure, unspecified (CMS/[facility] V24, CMS/[facility] V28) Heart failure, unspecified Essential (primary) hypertension Unspecified essential hypertension Hyperlipidemia, unspecified documented in this encounter Additional Health Concerns Infection Onset Date Last Indicated Resolved Time Norovirus 05/29/2024 05/29/2024 documented as of this encounter Care Teams Geriatric Aide Relationship Specialty Start Date End Date Donte Powell MD [address] [place] [address] Dr Roque [place], [place] PCP - General Internal Medicine 09/21/18 documented as of this encounter
--- OUTSIDE RECORDS SUMMARY | 2025-01-25 17:03 | XMS_ITS | Encounter Summary ---
Author Organization [facility] Address [address] [place] [address] Care Team Providers Care Quality Compliance Coordinator Name Role Phone Donte Powell MD Primary Care Provider [phone] Encounter Details Date Type Department Care Team (Late st Contact Info) Description 12/31/2024 Lab Requisition [facility] - Main Lab [address] [facility] [place] [address] Ross Saul MD [address] [place] [address] Heart failure, unspecified (CMS/HCC V24, [...] Diagnosis Comments CBC WITH AUTO DIFFERENTIAL Routine 01/03/2025 5:42 AM EDT Heart failure, unspecified (CMS/HCC V24, CMS/HCC V28) Essential (primary) hypertension Hyperlipidemia, unspecified CBC AND DIFFERENTIAL Routine 01/03/2025 5:42 AM EDT Heart failure, unspecified (CMS/HCC V24, CMS/HCC V28) Essential (primary) hypertension Hyperlipidemia, unspecified COMPREHENSIVE METABOLIC PANEL Routine 01/03/2025 5:42 AM EDT Heart failure, unspecified (CMS/HCC V24, CMS/HCC V28) Essential (primary) hypertension Hyperlipidemia, unspecified documented in this encounter Results * (ABNORMAL) CBC auto differential (01/03/2025 5:42 AM EDT) WBC 5.2 4.8 - 10.8 K/mcL LAB HEMETOLOGY METHOD 01/03/2025 11:11 AM [facility] RBC 2.50(L) 4.50 - 5.50 M/mcL LAB HEMETOLOGY METHOD 01/03/2025 11:11 AM [facility] Hemoglobin 7.8(L) 13.5 - 17.5 g/dL LAB HEMETOLOGY METHOD 01/03/2025 11:11 AM [facility] Hematocrit 26.0(L) 42.0 - 54.0 % LAB HEMETOLOGY METHOD 01/03/2025 11:11 AM [facility] MCV 105.7(H) 79.0 - 98.0 FL LAB HEMETOLOGY METHOD 01/03/2025 11:11 AM [facility] MCH 31.7 27.0 - 32.0 pcg LAB HEMETOLOGY METHOD 01/03/2025 11:11 AM [facility] MCHC 30.0(L) 32.0 - 37.0 g/dL LAB HEMETOLOGY METHOD 01/03/2025 11:11 AM [facility] RDW 15.9(H) 11.0 - 15.0 % LAB HEMETOLOGY METHOD 01/03/2025 11:11 AM [facility] Platelets 155 130 - 400 K/mcL LAB HEMETOLOGY METHOD 01/03/2025 11:11 AM [facility] MPV 12.4(H) 7.0 - 11.0 FL LAB HEMETOLOGY METHOD 01/03/2025 11:11 AM [facility] NRBC 0.0 <1.0 % LAB HEMETOLOGY METHOD 01/03/2025 11:11 AM [facility] NRBC Absolute 0.00 <0.10 K/mcL LAB HEMETOLOGY METHOD 01/03/2025 11:11 AM [facility] Neutrophils Relative 59.9 % LAB HEMETOLOGY METHOD 01/03/2025 11:11 AM [facility] Lymphocytes Relative 20.5 % LAB HEMETOLOGY METHOD 01/03/2025 11:11 AM [facility] Monocytes Relative 17.0 % LAB HEMETOLOGY METHOD 01/03/2025 11:11 AM [facility] Eosinophils Relative 1.4 % LAB HEMETOLOGY METHOD 01/03/2025 11:11 AM [facility] Basophils Relative 0.4 % LAB HEMETOLOGY METHOD 01/03/2025 11:11 AM [facility] Immature Granulocytes Relative 0.8 % LAB HEMETOLOGY METHOD 01/03/2025 11:11 AM [facility] Neutrophils Absolute 3.10 1.50 - 7.00 K/mcL LAB HEMETOLOGY METHOD 01/03/2025 11:11 AM [facility] Lymphocytes Absolute 1.06 1.00 - 5.00 K/mcL LAB HEMETOLOGY METHOD 01/03/2025 11:11 AM [facility] Monocytes Absolute 0.88 0.20 - 1.00 K/mcL LAB HEMETOLOGY METHOD 01/03/2025 11:11 AM [facility] Eosinophils Absolute 0.07 0.00 - 0.50 K/mcL LAB HEMETOLOGY METHOD 01/03/2025 11:11 AM [facility] Basophils Absolute 0.02 0.00 - 0.20 K/mcL LAB HEMETOLOGY METHOD 01/03/2025 11:11 AM [facility] Immature Granulocytes Absolute 0.04(H) 0.00 - 0.03 K/mcL LAB HEMETOLOGY METHOD 01/03/2025 11:11 AM [facility] Blood Venous blood specimen / Unknown Venipuncture / Unknown 01/03/2025 5:42 AM EDT 01/03/2025 10:41 AM EDT us Ross Saul MD LAB BLOOD ORDERABLES Final Resu lt [facility] [address] [place] [address], [place] [phone] * (ABNORMAL) Comprehensive metabolic panel (01/03/2025 5:42 AM EDT) Sodium 142 133 - 145 mmol/L LAB CHEMISTRY METHOD 01/03/2025 12:02 PM [facility] Potassium 3.7 3.5 - 5.5 mmol/L LAB CHEMISTRY METHOD 01/03/2025 12:02 PM [facility] Chloride 108 96 - 110 mmol/L LAB CHEMISTRY METHOD 01/03/2025 12:02 PM [facility] CO2 26 21 - 32 mmol/L LAB CHEMISTRY METHOD 01/03/2025 12:02 PM [facility] Anion Gap 8 3 - 11 LAB CHEMISTRY METHOD 01/03/2025 12:02 PM [facility] Glucose 127(H) 70 - 100 mg/dL LAB CHEMISTRY METHOD 01/03/2025 12:02 PM [facility] BUN 16 5 - 25 mg/dL LAB CHEMISTRY METHOD 01/03/2025 12:02 PM [facility] Creatinine 0.89 0.70 - 1.30 mg/dL LAB CHEMISTRY METHOD 01/03/2025 12:02 PM [facility] eGFR 85 >=60 mL/min/1. 73m2 LAB CHEMISTRY METHOD 01/03/2025 12:02 PM [facility] Comment:Calculation based on the Chronic Kidney Disease Epidemiology Collaboration (CKD-EPI) equation refit without adjustment for race. BUN/Creatinine Ratio 18.0 LAB CHEMISTRY METHOD 01/03/2025 12:02 PM [facility] Calcium 8.2(L) 8.5 - 10.5 mg/dL LAB CHEMISTRY METHOD 01/03/2025 12:02 PM [facility] AST (SGOT) 31 10 - 42 unit/L LAB CHEMISTRY METHOD 01/03/2025 12:02 PM [facility] ALT (SGPT) 17 10 - 60 unit/L LAB CHEMISTRY METHOD 01/03/2025 12:02 PM [facility] Alkaline Phosphatase 147(H) 42 - 121 unit/L LAB CHEMISTRY METHOD 01/03/2025 12:02 PM [facility] Total Protein 5.9(L) 6.0 - 8.0 g/dL LAB CHEMISTRY METHOD 01/03/2025 12:02 PM [facility] Albumin 2.0(L) 3.2 - 5.0 g/dL LAB CHEMISTRY METHOD 01/03/2025 12:02 PM [facility] Total Bilirubin 0.4 0.0 - 1.4 mg/dL LAB CHEMISTRY METHOD 01/03/2025 12:02 PM [facility] Blood Venous blood specimen / Unknown Venipuncture / Unknown 01/03/2025 5:42 AM EDT 01/03/2025 10:41 AM EDT us Ross Saul MD LAB BLOOD ORDERABLES Final Resu lt [facility] [address] [place] [address], documented in this encounter Visit Diagnoses Diagnosis Heart failure, unspecified (CMS/HCC V24, CMS/HCC V28) Heart failure, unspecified Essential (primary) hypertension Unspecified essential hypertension Hyperlipidemia, unspecified documented in this encounter Additional Health Concerns Infection Onset Date Last Indicated Resolved Time Norovirus 05/29/2024 05/29/2024 documented as of this encounter Care Teams Quality Compliance Coordinator Relationship Specialty Start Date End Date Donte Powell MD [address] [place] [address] Dr lR [place] PCP - General Internal Medicine 09/21/18 documented as of this encounter
--- OUTSIDE RECORDS SUMMARY | 2025-01-25 17:03 | XMS_ITS | Encounter Summary ---
Author Organization [facility] Address [address] [place] [address] Care Team Providers Care Sfdc Technical Architect Name Role Phone Donte Powell MD Primary Care Provider [phone] Encounter Details Date Type Department Care Team (Late st Contact Info) Description 01/05/2025 Lab Requisition [facility] - Main Lab [address] [facility] [place] [address] Ross Saul MD [address] [place] [address] Heart failure, unspecified (CMS/HCC V24, [...] Diagnosis Comments CBC WITH AUTO DIFFERENTIAL Routine 01/06/2025 7:06 AM EDT Heart failure, unspecified (CMS/HCC V24, CMS/HCC V28) Essential (primary) hypertension Hyperlipidemia, unspecified CBC AND DIFFERENTIAL Routine 01/06/2025 7:06 AM EDT Heart failure, unspecified (CMS/HCC V24, CMS/HCC V28) Essential (primary) hypertension Hyperlipidemia, unspecified BASIC METABOLIC PANEL Routine 01/06/2025 7:06 AM EDT Heart failure, unspecified (CMS/HCC V24, CMS/HCC V28) Essential (primary) hypertension Hyperlipidemia, unspecified documented in this encounter Results * (ABNORMAL) CBC auto differential (01/06/2025 7:06 AM EDT) WBC 4.8 4.8 - 10.8 K/mcL LAB HEMETOLOGY METHOD 01/06/2025 8:49 AM [facility] RBC 2.60(L) 4.50 - 5.50 M/mcL LAB HEMETOLOGY METHOD 01/06/2025 8:49 AM [facility] Hemoglobin 8.3(L) 13.5 - 17.5 g/dL LAB HEMETOLOGY METHOD 01/06/2025 8:49 AM [facility] Hematocrit 27.7(L) 42.0 - 54.0 % LAB HEMETOLOGY METHOD 01/06/2025 8:49 AM [facility] MCV 105.7(H) 79.0 - 98.0 FL LAB HEMETOLOGY METHOD 01/06/2025 8:49 AM [facility] MCH 31.7 27.0 - 32.0 pcg LAB HEMETOLOGY METHOD 01/06/2025 8:49 AM [facility] MCHC 30.0(L) 32.0 - 37.0 g/dL LAB HEMETOLOGY METHOD 01/06/2025 8:49 AM [facility] RDW 15.7(H) 11.0 - 15.0 % LAB HEMETOLOGY METHOD 01/06/2025 8:49 AM [facility] Platelets 156 130 - 400 K/mcL LAB HEMETOLOGY METHOD 01/06/2025 8:49 AM [facility] MPV 12.2(H) 7.0 - 11.0 FL LAB HEMETOLOGY METHOD 01/06/2025 8:49 AM [facility] NRBC 0.0 <1.0 % LAB HEMETOLOGY METHOD 01/06/2025 8:49 AM [facility] NRBC Absolute 0.00 <0.10 K/mcL LAB HEMETOLOGY METHOD 01/06/2025 8:49 AM [facility] Neutrophils Relative 60.2 % LAB HEMETOLOGY METHOD 01/06/2025 8:49 AM [facility] Lymphocytes Relative 19.6 % LAB HEMETOLOGY METHOD 01/06/2025 8:49 AM [facility] Monocytes Relative 18.6 % LAB HEMETOLOGY METHOD 01/06/2025 8:49 AM [facility] Eosinophils Relative 0.8 % LAB HEMETOLOGY METHOD 01/06/2025 8:49 AM [facility] Basophils Relative 0.2 % LAB HEMETOLOGY METHOD 01/06/2025 8:49 AM [facility] Immature Granulocytes Relative 0.6 % LAB HEMETOLOGY METHOD 01/06/2025 8:49 AM [facility] Neutrophils Absolute 2.88 1.50 - 7.00 K/mcL LAB HEMETOLOGY METHOD 01/06/2025 8:49 AM [facility] Lymphocytes Absolute 0.94(L) 1.00 - 5.00 K/mcL LAB HEMETOLOGY METHOD 01/06/2025 8:49 AM [facility] Monocytes Absolute 0.89 0.20 - 1.00 K/mcL LAB HEMETOLOGY METHOD 01/06/2025 8:49 AM [facility] Eosinophils Absolute 0.04 0.00 - 0.50 K/mcL LAB HEMETOLOGY METHOD 01/06/2025 8:49 AM [facility] Basophils Absolute 0.01 0.00 - 0.20 K/mcL LAB HEMETOLOGY METHOD 01/06/2025 8:49 AM T [facility] Immature Granulocytes Absolute 0.03 0.00 - 0.03 K/[facility] LAB HEMETOLOGY METHOD 01/06/2025 8:49 AM EDT [facility] Blood Venous blood specimen / Unknown Venipuncture / Unknown 01/06/2025 7:06 AM EDT 01/06/2025 8:20 AM EDT us Ross Saul MD LAB BLOOD ORDERABLES Final Resu lt [facility] [address] [place] [address], [place] [phone] * (ABNORMAL) Basic metabolic panel (01/06/2025 7:06 AM EDT) Sodium 142 133 - 145 mmol/L LAB CHEMISTRY METHOD 01/06/2025 9:04 AM [facility] Potassium 3.9 3.5 - 5.5 mmol/L LAB CHEMISTRY METHOD 01/06/2025 9:04 AM [facility] Chloride 110 96 - 110 mmol/L LAB CHEMISTRY METHOD 01/06/2025 9:04 AM [facility] CO2 28 21 - 32 mmol/L LAB CHEMISTRY METHOD 01/06/2025 9:04 AM [facility] Anion Gap 4 3 - 11 LAB CHEMISTRY METHOD 01/06/2025 9:04 AM [facility] Glucose 92 70 - 100 mg/dL LAB CHEMISTRY METHOD 01/06/2025 9:04 AM [facility] BUN 17 5 - 25 mg/dL LAB CHEMISTRY METHOD 01/06/2025 9:04 AM [facility] Creatinine 0.89 0.70 - 1.30 mg/dL LAB CHEMISTRY METHOD 01/06/2025 9:04 AM EDT [facility] eGFR 85 >=60 mL/min/1. 73m2 LAB CHEMISTRY METHOD 01/06/2025 9:04 AM EDT [facility] Comment:Calculation based on the Chronic Kidney Disease Epidemiology Collaboration (CKD-EPI) equation refit without adjustment for race. BUN/Creatinine Ratio 19.1 LAB CHEMISTRY METHOD 01/06/2025 9:04 AM EDT [facility] Calcium 8.1(L) 8.5 - 10.5 mg/dL LAB CHEMISTRY METHOD 01/06/2025 9:04 AM EDT [facility] Blood Venous blood specimen / Unknown Venipuncture / Unknown 01/06/2025 7:06 AM EDT 01/06/2025 8:20 AM EDT Ross Saul MD LAB BLOOD ORDERABLES Final Resu lt [facility] [address] [place] [address], documented in this encounter Visit Diagnoses Diagnosis Heart failure, unspecified (CMS/HCC V24, CMS/HCC V28) Heart failure, unspecified Essential (primary) hypertension Unspecified essential hypertension Hyperlipidemia, unspecified documented in this encounter Additional Health Concerns Infection Onset Date Last Indicated Resolved Time Norovirus 05/29/2024 05/29/2024 documented as of this encounter Care Teams Sfdc Technical Architect Relationship Specialty Start Date End Date Donte Powell MD [address] [place] [address] Dr Shine [place] PCP - General Internal Medicine 09/21/18 documented as of this encounter
--- OUTSIDE RECORDS SUMMARY | 2025-01-25 17:03 | XMS_ITS | Encounter Summary ---
Author Organization [facility] Address [address] [place] [address] Care Team Providers Care Renal Dialysis Technician Name Role Phone Donte Powell MD Primary Care Provider [phone] Encounter Details Date Type Department Care Team (Late st Contact Info) Description 01/19/2025 Lab Requisition [facility] - Main Lab [address] [facility] [place] [address] Ross Saul MD [address] [place] [address] Heart failure, unspecified (CMS/HCC V24, [...] as of this encounter Visit Diagnoses Diagnosis Heart failure, unspecified (CMS/HCC V24, CMS/HCC V28) Heart failure, unspecified Essential (primary) hypertension Unspecified essential hypertension Hyperlipidemia, unspecified documented in this encounter Additional Health Concerns Infection Onset Date Last Indicated Resolved Time Norovirus 05/29/2024 05/29/2024 documented as of this encounter Care Teams Renal Dialysis Technician Relationship Specialty Start Date End Date Donte Powell MD [address] [place] [address] Dr Rl [place] PCP - General Internal Medicine 09/21/18 documented as of this encounter
--- OUTSIDE RECORDS SUMMARY | 2025-01-25 17:03 | XMS_ITS | Encounter Summary ---
Author Organization [facility] Address [address] [place] [address] Care Team Providers Care Cash Processing Specialist Name Role Phone Donte Powell MD Primary Care Provider Encounter Details Date Type Department Care Team (Late st Contact Info) Description 05/29/2024 Lab Requisition [facility] - Main Lab [address] [facility] [place] [address] Ross Saul MD [address] [place] [address] Unspecified atrial fibrillation (CMS/HCC V24, [...] documented as of this encounter Care Teams Cash Processing Specialist Relationship Specialty Start Date End Date Donte Powell MD [address] [place] [address] Dr Rl [place] PCP - General Internal Medicine 09/21/18 documented as of this encounter
--- OUTSIDE RECORDS SUMMARY | 2025-01-25 17:03 | XMS_ITS | Encounter Summary ---
Author Organization [facility] Address [address] [place] [address] Care Team Providers Care Software Development Intern Name Role Phone Donte Powell MD Primary Care Provider [phone] Encounter Details Date Type Department Care Team (Late st Contact Info) Description 11/18/2024 Lab Requisition [facility] - Main Lab [address] [facility] [place] [address] Ross Saul MD [address] [place] [address] Chronic systolic (congestive) heart failure (CMS/HCC V24, CMS/HCC V28); Acute kidney failure, unspecified (CMS/HCC V24) Social History Tobacco Use Types Packs/Day Years [...] Associated Diagnosis Comments COMPLETE BLOOD COUNT Routine 11/18/2024 6:05 AM EDT Chronic systolic (congestive) heart failure (CMS/HCC V24, CMS/HCC V28) Acute kidney failure, unspecified (CMS/HCC V24) COMPREHENSIVE METABOLIC PANEL Routine 11/18/2024 6:05 AM EDT Chronic systolic (congestive) heart failure (CMS/HCC V24, CMS/HCC V28) Acute kidney failure, unspecified (CMS/HCC V24) documented in this encounter Results * (ABNORMAL) Comprehensive metabolic panel (11/18/2024 6:05 AM EDT) Sodium 142 133 - 145 mmol/L LAB CHEMISTRY METHOD 11/18/2024 11:47 AM [facility] Potassium 4.5 3.5 - 5.5 mmol/L LAB CHEMISTRY METHOD 11/18/2024 11:47 AM [facility] Chloride 112(H) 96 - 110 mmol/L LAB CHEMISTRY METHOD 11/18/2024 11:47 AM [facility] CO2 23 21 - 32 mmol/L LAB CHEMISTRY METHOD 11/18/2024 11:47 AM [facility] Anion Gap 7 3 - 11 LAB CHEMISTRY METHOD 11/18/2024 11:47 AM [facility] Glucose 76 70 - 100 mg/dL LAB CHEMISTRY METHOD 11/18/2024 11:47 AM [facility] BUN 14 5 - 25 mg/dL LAB CHEMISTRY METHOD 11/18/2024 11:47 AM [facility] Creatinine 0.78 0.70 - 1.30 mg/dL LAB CHEMISTRY METHOD 11/18/2024 11:47 AM [facility] eGFR 89 >=60 mL/min/1. 73m2 LAB CHEMISTRY METHOD 11/18/2024 11:47 AM [facility] Comment:Calculation based on the Chronic Kidney Disease Epidemiology Collaboration (CKD-EPI) equation refit without adjustment for race. BUN/Creatinine Ratio 17.9 LAB CHEMISTRY METHOD 11/18/2024 11:47 AM [facility] Calcium 7.9(L) 8.5 - 10.5 mg/dL LAB CHEMISTRY METHOD 11/18/2024 11:47 AM [facility] AST (SGOT) 47(H) 10 - 42 unit/L LAB CHEMISTRY METHOD 11/18/2024 11:47 AM EDT [facility] ALT (SGPT) 36 10 - 60 unit/L LAB CHEMISTRY METHOD 11/18/2024 11:47 AM EDT [facility] Alkaline Phosphatase 139(H) 42 - 121 unit/L LAB CHEMISTRY METHOD 11/18/2024 11:47 AM T [facility] Total Protein 4.5(L) 6.0 - 8.0 g/dL LAB CHEMISTRY METHOD 11/18/2024 11:47 AM T [facility] Albumin 1.8(L) 3.2 - 5.0 g/dL LAB CHEMISTRY METHOD 11/18/2024 11:47 AM [facility] Total Bilirubin 0.2 0.0 - 1.4 mg/dL LAB CHEMISTRY METHOD 11/18/2024 11:47 AM [facility] Blood Venous blood specimen / Unknown Venipuncture / Unknown 11/18/2024 6:05 AM EDT 11/18/2024 10:40 AM EDT us Ross Saul MD LAB BLOOD ORDERABLES Final Resu lt [facility] [address] [place] [address], * (ABNORMAL) Complete blood count (11/18/2024 6:05 AM EDT) WBC 8.6 4.8 - 10.8 K/mcL LAB HEMETOLOGY METHOD 11/18/2024 11:18 AM EDT [facility] RBC 2.40(L) 4.50 - 5.50 M/mcL LAB HEMETOLOGY METHOD 11/18/2024 11:18 AM EDT [facility] Hemoglobin 7.9(L) 13.5 - 17.5 g/dL LAB HEMETOLOGY METHOD 11/18/2024 11:18 AM EDT [facility] Hematocrit 25.5(L) 42.0 - 54.0 % LAB HEMETOLOGY METHOD 11/18/2024 11:18 AM EDT [facility] MCV 104.5(H) 79.0 - 98.0 FL LAB HEMETOLOGY METHOD 11/18/2024 11:18 AM EDT [facility] MCH 32.4(H) 27.0 - 32.0 pcg LAB HEMETOLOGY METHOD 11/18/2024 11:18 AM EDT [facility] MCHC 31.0(L) 32.0 - 37.0 g/dL LAB HEMETOLOGY METHOD 11/18/2024 11:18 AM EDT [facility] RDW 16.6(H) 11.0 - 15.0 % LAB HEMETOLOGY METHOD 11/18/2024 11:18 AM [facility] Platelets 191 130 - 400 K/mcL LAB HEMETOLOGY METHOD 11/18/2024 11:18 AM EDT [facility] MPV 11.9(H) 7.0 - 11.0 FL LAB HEMETOLOGY METHOD 11/18/2024 11:18 AM T [facility] NRBC 0.0 <1.0 % LAB HEMETOLOGY METHOD 11/18/2024 11:18 AM T [facility] NRBC Absolute 0.00 <0.10 K/mcL LAB HEMETOLOGY METHOD 11/18/2024 11:18 AM [facility] Blood Venous blood specimen / Unknown Venipuncture / Unknown 11/18/2024 6:05 AM EDT 11/18/2024 10:40 AM EDT us Ross Saul MD LAB BLOOD ORDERABLES Final Resu lt [facility] [address] [place] [address], [place] [phone] documented in this encounter Visit Diagnoses Diagnosis Chronic systolic (congestive) heart failure ([facility] V24, [facility] V28) Acute kidney failure, unspecified ([facility] V24) Acute kidney failure, unspecified documented in this encounter Additional Health Concerns Infection Onset Date Last Indicated Resolved Time Norovirus 05/29/2024 05/29/2024 documented as of this encounter Care Teams Software Development Intern Relationship Specialty Start Date End Date Donte Powell MD [address] [place] [address] Dr Rl [place] PCP - General Internal Medicine 09/21/18 documented as of this encounter
--- OUTSIDE RECORDS SUMMARY | 2025-01-25 17:03 | XMS_ITS | Encounter Summary ---
Author Organization [facility] Address [address] [place] [address] Care Team Providers Care Bellman Driver Name Role Phone Donte Powell MD Primary Care Provider [phone] Encounter Details Date Type Department Care Team (Late st Contact Info) Description 01/08/2025 Lab Requisition [facility] - Main Lab [address] [facility] [place] [address] Ross Saul MD [address] [place] [address] Heart failure, unspecified (CMS/HCC V24, [...] Diagnosis Comments CBC WITH AUTO DIFFERENTIAL Routine 01/10/2025 5:35 AM EDT Heart failure, unspecified (CMS/HCC V24, CMS/HCC V28) Essential (primary) hypertension Hyperlipidemia, unspecified CBC AND DIFFERENTIAL Routine 01/10/2025 5:35 AM EDT Heart failure, unspecified (CMS/HCC V24, CMS/HCC V28) Essential (primary) hypertension Hyperlipidemia, unspecified COMPREHENSIVE METABOLIC PANEL Routine 01/10/2025 5:35 AM EDT Heart failure, unspecified (CMS/HCC V24, CMS/HCC V28) Essential (primary) hypertension Hyperlipidemia, unspecified documented in this encounter Results * (ABNORMAL) CBC auto differential (01/10/2025 5:35 AM EDT) WBC 4.8 4.8 - 10.8 K/mcL LAB HEMETOLOGY METHOD 01/10/2025 10:56 AM [facility] RBC 2.60(L) 4.50 - 5.50 M/mcL LAB HEMETOLOGY METHOD 01/10/2025 10:56 AM [facility] Hemoglobin 8.0(L) 13.5 - 17.5 g/dL LAB HEMETOLOGY METHOD 01/10/2025 10:56 AM [facility] Hematocrit 27.6(L) 42.0 - 54.0 % LAB HEMETOLOGY METHOD 01/10/2025 10:56 AM [facility] MCV 105.7(H) 79.0 - 98.0 FL LAB HEMETOLOGY METHOD 01/10/2025 10:56 AM [facility] MCH 30.7 27.0 - 32.0 pcg LAB HEMETOLOGY METHOD 01/10/2025 10:56 AM [facility] MCHC 29.0(L) 32.0 - 37.0 g/dL LAB HEMETOLOGY METHOD 01/10/2025 10:56 AM [facility] RDW 16.0(H) 11.0 - 15.0 % LAB HEMETOLOGY METHOD 01/10/2025 10:56 AM [facility] Platelets 172 130 - 400 K/mcL LAB HEMETOLOGY METHOD 01/10/2025 10:56 AM [facility] MPV 12.2(H) 7.0 - 11.0 FL LAB HEMETOLOGY METHOD 01/10/2025 10:56 AM [facility] NRBC 0.0 <1.0 % LAB HEMETOLOGY METHOD 01/10/2025 10:56 AM [facility] NRBC Absolute 0.00 <0.10 K/mcL LAB HEMETOLOGY METHOD 01/10/2025 10:56 AM [facility] Neutrophils Relative 55.7 % LAB HEMETOLOGY METHOD 01/10/2025 10:56 AM [facility] Lymphocytes Relative 25.3 % LAB HEMETOLOGY METHOD 01/10/2025 10:56 AM [facility] Monocytes Relative 16.5 % LAB HEMETOLOGY METHOD 01/10/2025 10:56 AM [facility] Eosinophils Relative 1.3 % LAB HEMETOLOGY METHOD 01/10/2025 10:56 AM [facility] Basophils Relative 0.6 % LAB HEMETOLOGY METHOD 01/10/2025 10:56 AM [facility] Immature Granulocytes Relative 0.6 % LAB HEMETOLOGY METHOD 01/10/2025 10:56 AM [facility] Neutrophils Absolute 2.67 1.50 - 7.00 K/mcL LAB HEMETOLOGY METHOD 01/10/2025 10:56 AM [facility] Lymphocytes Absolute 1.21 1.00 - 5.00 K/mcL LAB HEMETOLOGY METHOD 01/10/2025 10:56 AM [facility] Monocytes Absolute 0.79 0.20 - 1.00 K/mcL LAB HEMETOLOGY METHOD 01/10/2025 10:56 AM [facility] Eosinophils Absolute 0.06 0.00 - 0.50 K/mcL LAB HEMETOLOGY METHOD 01/10/2025 10:56 AM [facility] Basophils Absolute 0.03 0.00 - 0.20 K/mcL LAB HEMETOLOGY METHOD 01/10/2025 10:56 AM EDT [facility] Immature Granulocytes Absolute 0.03 0.00 - 0.03 K/[facility] LAB HEMETOLOGY METHOD 01/10[facility]2025 10[facility] Blood Venous blood specimen / Unknown Venipuncture / Unknown 01/10/2025 5:35 AM EDT 01/10/2025 10:18 AM EDT us Ross Saul MD LAB BLOOD ORDERABLES Final Resu lt [facility] [address] [place] [address], [place] [phone] * (ABNORMAL) Comprehensive metabolic panel (01/10/2025 5:35 AM EDT) Sodium 140 133 - 145 mmol/L LAB CHEMISTRY METHOD 01/10/2025 11:23 AM [facility] Potassium 3.8 3.5 - 5.5 mmol/L LAB CHEMISTRY METHOD 01/10/2025 11:23 AM [facility] Chloride 108 96 - 110 mmol/L LAB CHEMISTRY METHOD 01/10/2025 11:23 AM [facility] CO2 26 21 - 32 mmol/L LAB CHEMISTRY METHOD 01/10/2025 11:23 AM [facility] Anion Gap 6 3 - 11 LAB CHEMISTRY METHOD 01/10/2025 11:23 AM [facility] Glucose 123(H) 70 - 100 mg/dL LAB CHEMISTRY METHOD 01/10/2025 11:23 AM [facility] BUN 22 5 - 25 mg/dL LAB CHEMISTRY METHOD 01/10/2025 11:23 AM [facility] Creatinine 1.17 0.70 - 1.30 mg/dL LAB CHEMISTRY METHOD 01/10/2025 11:23 AM [facility] eGFR 62 >=60 mL/min/1. 73m2 LAB CHEMISTRY METHOD 01/10/2025 11:23 AM [facility] Comment:Calculation based on the Chronic Kidney Disease Epidemiology Collaboration (CKD-EPI) equation refit without adjustment for race. BUN/Creatinine Ratio 18.8 LAB CHEMISTRY METHOD 01/10/2025 11:23 AM [facility] Calcium 8.3(L) 8.5 - 10.5 mg/dL LAB CHEMISTRY METHOD 01/10/2025 11:23 AM [facility] AST (SGOT) 26 10 - 42 unit/L LAB CHEMISTRY METHOD 01/10/2025 11:23 AM [facility] ALT (SGPT) 17 10 - 60 unit/L LAB CHEMISTRY METHOD 01/10/2025 11:23 AM [facility] Alkaline Phosphatase 158(H) 42 - 121 unit/L LAB CHEMISTRY METHOD 01/10/2025 11:23 AM [facility] Total Protein 6.6 6.0 - 8.0 g/dL LAB CHEMISTRY METHOD 01/10/2025 11:23 AM [facility] Albumin 2.3(L) 3.2 - 5.0 g/dL LAB CHEMISTRY METHOD 01/10/2025 11:23 AM [facility] Total Bilirubin 0.4 0.0 - 1.4 mg/dL LAB CHEMISTRY METHOD 01/10/2025 11:23 AM [facility] Blood Venous blood specimen / Unknown Venipuncture / Unknown 01/10/2025 5:35 AM EDT 01/10/2025 10:18 AM EDT us Ross Saul MD LAB BLOOD ORDERABLES Final Resu lt [facility] [address] [place] [address], documented in this encounter Visit Diagnoses Diagnosis Heart failure, unspecified (CMS/[facility] V24, CMS/[facility] V28) Heart failure, unspecified Essential (primary) hypertension Unspecified essential hypertension Hyperlipidemia, unspecified documented in this encounter Additional Health Concerns Infection Onset Date Last Indicated Resolved Time Norovirus 05/29/2024 05/29/2024 documented as of this encounter Care Teams Bellman Driver Relationship Specialty Start Date End Date Donte Powell MD [address] [place] [address] Dr Roque Queen, [place] PCP - General Internal Medicine 09/21/18 documented as of this encounter
--- OUTSIDE RECORDS SUMMARY | 2025-01-25 17:03 | XMS_ITS | Encounter Summary ---
Author Organization [facility] Address [address] [place] [address] Care Team Providers Care Deployment Manager Name Role Phone Donte Powell MD Primary Care Provider [phone] Encounter Details Date Type Department Care Team (Late st Contact Info) Description 12/28/2024 Lab Requisition [facility] - Main Lab [address] [place] [address] Ross Saul MD [address] [place] [address] Heart failure, unspecified (CMS/HCC V24, CMS/HCC V28); Hyperlipidemia, unspecified Social History Tobacco Use Types [...] Diagnosis Comments CBC WITH AUTO DIFFERENTIAL Routine 12/28/2024 5:24 AM EDT Heart failure, unspecified (CMS/HCC V24, CMS/HCC V28) Hyperlipidemia, unspecified CBC AND DIFFERENTIAL Routine 12/28/2024 5:24 AM EDT Heart failure, unspecified (CMS/HCC V24, CMS/HCC V28) Hyperlipidemia, unspecified COMPREHENSIVE METABOLIC PANEL Routine 12/28/2024 5:24 AM EDT Heart failure, unspecified (CMS/HCC V24, [facility] V28) Hyperlipidemia, unspecified documented in this encounter Results * (ABNORMAL) CBC auto differential (12/28/2024 5:24 AM EDT) WBC 4.8 4.8 - 10.8 K/mcL LAB HEMETOLOGY METHOD 12/28/2024 10:[address] [facility] RBC 2.60(L) 4.50 - 5.50 M/mcL LAB HEMETOLOGY METHOD 12/28/2024 10:[address] [facility] Hemoglobin 8.1(L) 13.5 - 17.5 g/dL LAB HEMETOLOGY METHOD 12/28/2024 10:[address] [facility] Hematocrit 27.4(L) 42.0 - 54.0 % LAB HEMETOLOGY METHOD 12/28/2024 10:[address] [facility] MCV 104.2(H) 79.0 - 98.0 FL LAB HEMETOLOGY METHOD 12/28/2024 10:[address] [facility] MCH 30.8 27.0 - 32.0 pcg LAB HEMETOLOGY METHOD 12/28/2024 10:[address] [facility] MCHC 29.6(L) 32.0 - 37.0 g/dL LAB HEMETOLOGY METHOD 12/28/2024 10:[address] [facility] RDW 15.9(H) 11.0 - 15.0 % LAB HEMETOLOGY METHOD 12/28/2024 10:[address] [facility] Platelets 174 130 - 400 K/mcL LAB HEMETOLOGY METHOD 12/28/2024 10:[address] [facility] MPV 11.7(H) 7.0 - 11.0 FL LAB HEMETOLOGY METHOD 12/28/2024 10:[address] [facility] NRBC 0.0 <1.0 % LAB HEMETOLOGY METHOD 12/28/2024 10:[address] [facility] NRBC Absolute 0.00 <0.10 K/mcL LAB HEMETOLOGY METHOD 12/28/2024 10:[address] [facility] Neutrophils Relative 55.6 % LAB HEMETOLOGY METHOD 12/28/2024 10:[address] [facility] Lymphocytes Relative 24.5 % LAB HEMETOLOGY METHOD 12/28/2024 10:[address] [facility] Monocytes Relative 17.4 % LAB HEMETOLOGY METHOD 12/28/2024 10:[address] [facility] Eosinophils Relative 1.3 % LAB HEMETOLOGY METHOD 12/28/2024 10:[address] [facility] Basophils Relative 0.4 % LAB HEMETOLOGY METHOD 12/28/2024 10:[address] [facility] Immature Granulocytes Relative 0.8 % LAB HEMETOLOGY METHOD 12/28/2024 10:[address] [facility] Neutrophils Absolute 2.65 1.50 - 7.00 K/mcL LAB HEMETOLOGY METHOD 12/28/2024 10:[address] [facility] Lymphocytes Absolute 1.17 1.00 - 5.00 K/mcL LAB HEMETOLOGY METHOD 12/28/2024 10:[address] [facility] Monocytes Absolute 0.83 0.20 - 1.00 K/mcL LAB HEMETOLOGY METHOD 12/28/2024 10:[address] [facility] Eosinophils Absolute 0.06 0.00 - 0.50 K/mcL LAB HEMETOLOGY METHOD 12/28/2024 10:[address] [facility] Basophils Absolute 0.02 0.00 - 0.20 K/mcL LAB HEMETOLOGY METHOD 12/28/2024 10:[address] [facility] Immature Granulocytes Absolute 0.04(H) 0.00 - 0.03 K/mcL LAB HEMETOLOGY METHOD 12/28/2024 10:[address] [facility] Blood Venous blood specimen / Unknown Venipuncture / Unknown 12/28/2024 5:24 AM EDT 12/28/2024 9:13 AM EDT us Ross Saul MD LAB BLOOD ORDERABLES Final Resu lt [facility] [address] [place] [address], [place] [phone] * (ABNORMAL) Comprehensive metabolic panel (12/28/2024 5:24 AM EDT) Sodium 142 133 - 145 mmol/L LAB CHEMISTRY METHOD 12/28/2024 10:[address] [facility] Potassium 3.1(L) 3.5 - 5.5 mmol/L LAB CHEMISTRY METHOD 12/28/2024 10:[address] [facility] Chloride 107 96 - 110 mmol/L LAB CHEMISTRY METHOD 12/28/2024 10:[address] [facility] CO2 30 21 - 32 mmol/L LAB CHEMISTRY METHOD 12/28/2024 10:[address] [facility] Anion Gap 5 3 - 11 LAB CHEMISTRY METHOD 12/28/2024 10:[address] [facility] Glucose 66(L) 70 - 100 mg/dL LAB CHEMISTRY METHOD 12/28/2024 10:[address] [facility] BUN 13 5 - 25 mg/dL LAB CHEMISTRY METHOD 12/28/2024 10:[address] [facility] Creatinine 0.85 0.70 - 1.30 mg/dL LAB CHEMISTRY METHOD 12/28/2024 10:[address] [facility] eGFR 86 >=60 mL/min/1. 73m2 LAB CHEMISTRY METHOD 12/28/2024 10:[address] [facility] Comment:Calculation based on the Chronic Kidney Disease Epidemiology Collaboration (CKD-EPI) equation refit without adjustment for race. BUN/Creatinine Ratio 15.3 LAB CHEMISTRY METHOD 12/28/2024 10:[address] [facility] Calcium 8.0(L) 8.5 - 10.5 mg/dL LAB CHEMISTRY METHOD 12/28/2024 10:[address] [facility] AST (SGOT) 27 10 - 42 unit/L LAB CHEMISTRY METHOD 12/28/2024 10:[address] [facility] ALT (SGPT) 16 10 - 60 unit/L LAB CHEMISTRY METHOD 12/28/2024 10:[address] [facility] Alkaline Phosphatase 143(H) 42 - 121 unit/L LAB CHEMISTRY METHOD 12/28/2024 10:[address] [facility] Total Protein 5.4(L) 6.0 - 8.0 g/dL LAB CHEMISTRY METHOD 12/28/2024 10:[address] [facility] Albumin 1.9(L) 3.2 - 5.0 g/dL LAB CHEMISTRY METHOD 12/28/2024 10:[address] [facility] Total Bilirubin 0.4 0.0 - 1.4 mg/dL LAB CHEMISTRY METHOD 12/28/2024 10:[address] [facility] Blood Venous blood specimen / Unknown Venipuncture / Unknown 12/28/2024 5:24 AM EDT 12/28/2024 9:13 AM EDT us Ross Saul MD LAB BLOOD ORDERABLES Final Resu lt [facility] [address] [place] [address], [place] [phone] documented in this encounter Visit Diagnoses Diagnosis Heart failure, unspecified ([facility] V24, [facility] V28) Heart failure, unspecified Hyperlipidemia, unspecified documented in this encounter Additional Health Concerns Infection Onset Date Last Indicated Resolved Time Norovirus 05/29/2024 05/29/2024 documented as of this encounter Care Teams Deployment Manager Relationship Specialty Start Date End Date Donte Powell MD [address] [place] [address] Dr Rl [place] PCP - General Internal Medicine 09/21/18 documented as of this encounter
--- OUTSIDE RECORDS SUMMARY | 2025-01-25 17:03 | XMS_ITS | Encounter Summary ---
Author Organization [facility] Address [address] [place] [address] Care Team Providers Care Jewelry Sales Name Role Phone Donte Powell MD Primary Care Provider [phone] Encounter Details Date Type Department Care Team (Late st Contact Info) Description 05/29/2024 Lab Requisition [facility] - Main Lab [address] [facility] [place] [address] Ross Saul MD [address] [place] [address] Unspecified atrial fibrillation (CMS/HCC V24, [...] [facility] - 06/03/2024 6:05 AM EDT Test(s) 955235-Mlddgahrt GI; [id number]-Kfyxuwltw GII was developed and its performance characteristics determined by [facility]. It has not been cleared or approved by the Food and Drug Administration. Ross Saul MD LAB MICROBIOLOGY - GENERAL ORDE [facility] Final Result Performing Organization Address City/[facility]/ZIP Co de Phone Number [facility] * - Miscellaneous Test (05/29/2024 1:45 PM EST) Miscellaneous Test COMMENT 2024 6:05 AM EDT [facility] Stool 05/29/2024 1:45 PM EST 05/29/2024 6:13 PM EST Narrative [facility] - 06/03/2024 6:05 AM EDT Performed At: [address] [id number] Cody Paul MD Ph:[phone] Performed At: 02 [facility] [place] [address] [place] [address], [address] [place] [id number] Jordan Aquino MD Ph:[phone] Ross Saul MD LAB BLOOD ORDERABLES Final Resu lt Performing Organization Address City/[facility]/ZIP Co de Phone Number [facility] documented in this encounter Visit Diagnoses Diagnosis Unspecified atrial fibrillation (CMS/HCC V24, CMS/HCC V28) Diarrhea, unspecified documented in this encounter Additional Health Concerns Infection Onset Date Last Indicated Resolved Time Norovirus 05/29/2024 05/29/2024 documented as of this encounter Care Teams Jewelry Sales Relationship Specialty Start Date End Date Donte Powell MD [address] [place] [address] Dr Rl [place] PCP - General Internal Medicine 09/21/18 documented as of this encounter
--- OUTSIDE RECORDS SUMMARY | 2025-01-25 17:03 | XMS_ITS | Encounter Summary ---
Author Organization [facility] Address [address] [place] [address] Care Team Providers Care Champion Of Sustainable Design Name Role Phone Donte Powell MD Primary Care Provider [phone] Encounter Details Date Type Department Care Team (Late st Contact Info) Description 12/29/2024 Lab Requisition [facility] - Main Lab [address] [facility] [place] [address] Ross Saul MD [address] [place] [address] Heart failure, unspecified (CMS/HCC V24, [...] Diagnosis Comments CBC WITH AUTO DIFFERENTIAL Routine 12/30/2024 8:31 AM EDT Heart failure, unspecified (CMS/HCC V24, CMS/HCC V28) Essential (primary) hypertension Hyperlipidemia, unspecified CBC AND DIFFERENTIAL Routine 12/30/2024 8:31 AM EDT Heart failure, unspecified (CMS/HCC V24, CMS/HCC V28) Essential (primary) hypertension Hyperlipidemia, unspecified BASIC METABOLIC PANEL Routine 12/30/2024 8:31 AM EDT Heart failure, unspecified (CMS/HCC V24, CMS/HCC V28) Essential (primary) hypertension Hyperlipidemia, unspecified documented in this encounter Results * (ABNORMAL) CBC auto differential (12/30/2024 8:31 AM EDT) [facility] Signature WBC 6.0 4.8 - 10.8 K/mcL LAB HEMETOLOGY METHOD 12/30/2024 10:26 AM [facility] RBC 2.70(L) 4.50 - 5.50 M/mcL LAB HEMETOLOGY METHOD 12/30/2024 10:26 AM [facility] Hemoglobin 8.6(L) 13.5 - 17.5 g/dL LAB HEMETOLOGY METHOD 12/30/2024 10:26 AM [facility] LAB Hematocrit 28.4(L) 42.0 - 54.0 % LAB HEMETOLOGY METHOD 12/30/2024 10:26 AM [facility] MCV 103.6(H) 79.0 - 98.0 FL LAB HEMETOLOGY METHOD 12/30/2024 10:26 AM [facility] LAB MCH 31.4 27.0 - 32.0 pcg LAB HEMETOLOGY METHOD 12/30/2024 10:26 AM [facility] LAB MCHC 30.3(L) 32.0 - 37.0 g/dL LAB HEMETOLOGY METHOD 12/30/2024 10:26 AM [facility] RDW 15.7(H) 11.0 - 15.0 % LAB HEMETOLOGY METHOD 12/30/2024 10:26 AM [facility] Platelets 145 130 - 400 K/mcL LAB HEMETOLOGY METHOD 12/30/2024 10:26 AM [facility] MPV 12.2(H) 7.0 - 11.0 FL LAB HEMETOLOGY METHOD 12/30/2024 10:26 AM [facility] NRBC 0.0 <1.0 % LAB HEMETOLOGY METHOD 12/30/2024 10:26 AM [facility] NRBC Absolute 0.00 <0.10 K/mcL LAB HEMETOLOGY METHOD 12/30/2024 10:26 AM [facility] Neutrophils Relative 66.8 % LAB HEMETOLOGY METHOD 12/30/2024 10:26 AM [facility] Lymphocytes Relative 16.2 % LAB HEMETOLOGY METHOD 12/30/2024 10:26 AM [facility] Monocytes Relative 15.2 % LAB HEMETOLOGY METHOD 12/30/2024 10:26 AM [facility] Eosinophils Relative 0.8 % LAB HEMETOLOGY METHOD 12/30/2024 10:26 AM [facility] Basophils Relative 0.2 % LAB HEMETOLOGY METHOD 12/30/2024 10:26 AM [facility] Immature Granulocytes Relative 0.8 % LAB HEMETOLOGY METHOD 12/30/2024 10:26 AM [facility] Neutrophils Absolute 3.99 1.50 - 7.00 K/mcL LAB HEMETOLOGY METHOD 12/30/2024 10:26 AM [facility] Lymphocytes Absolute 0.97(L) 1.00 - 5.00 K/mcL LAB HEMETOLOGY METHOD 12/30/2024 10:26 AM [facility] Monocytes Absolute 0.91 0.20 - 1.00 K/mcL LAB HEMETOLOGY METHOD 12/30/2024 10:26 AM [facility] Eosinophils Absolute 0.05 0.00 - 0.50 K/mcL LAB HEMETOLOGY METHOD 12/30/2024 10:26 AM [facility] Basophils Absolute 0.01 0.00 - 0.20 K/mcL LAB HEMETOLOGY METHOD 12/30/2024 10:26 AM T [facility] Immature Granulocytes Absolute 0.05(H) 0.00 - 0.03 K/[facility] LAB HEMETOLOGY METHOD 12/30/2024 10:26 AM [facility] Blood Venous blood specimen / Unknown Venipuncture / Unknown 12/30/2024 8:31 AM EDT 12/30/2024 9:57 AM EDT us Ross Saul MD LAB BLOOD ORDERABLES Final Resu lt [facility] [address] [place] [address], [place] [phone] * (ABNORMAL) Basic metabolic panel (12/30/2024 8:31 AM EDT) Sodium 140 133 - 145 mmol/L LAB CHEMISTRY METHOD 12/30/2024 10:50 AM [facility] Potassium 3.3(L) 3.5 - 5.5 mmol/L LAB CHEMISTRY METHOD 12/30/2024 10:50 AM [facility] Chloride 105 96 - 110 mmol/L LAB CHEMISTRY METHOD 12/30/2024 10:50 AM [facility] CO2 27 21 - 32 mmol/L LAB CHEMISTRY METHOD 12/30/2024 10:50 AM [facility] Anion Gap 8 3 - 11 LAB CHEMISTRY METHOD 12/30/2024 10:50 AM [facility] Glucose 99 70 - 100 mg/dL LAB CHEMISTRY METHOD 12/30/2024 10:50 AM [facility] BUN 15 5 - 25 mg/dL LAB CHEMISTRY METHOD 12/30/2024 10:50 AM [facility] Creatinine 0.96 0.70 - 1.30 mg/dL LAB CHEMISTRY METHOD 12/30/2024 10:50 AM EDT [facility] LAB eGFR 78 >=60 mL/min/1. 73m2 LAB CHEMISTRY METHOD 12/30/2024 10:50 AM EDT [facility] Comment:Calculation based on the Chronic Kidney Disease Epidemiology Collaboration (CKD-EPI) equation refit without adjustment for race. BUN/Creatinine Ratio 15.6 LAB CHEMISTRY METHOD 12/30/2024 10:50 AM EDT [facility] Calcium 8.3(L) 8.5 - 10.5 mg/dL LAB CHEMISTRY METHOD 12/30/2024 10:50 AM EDT [facility] Blood Venous blood specimen / Unknown Venipuncture / Unknown 12/30/2024 8:31 AM EDT 12/30/2024 9:57 AM EDT us Ross Saul MD LAB BLOOD ORDERABLES Final Resu lt [facility] [address] [place] [address], documented in this encounter Visit Diagnoses Diagnosis Heart failure, unspecified (CMS/HCC V24, CMS/HCC V28) Heart failure, unspecified Essential (primary) hypertension Unspecified essential hypertension Hyperlipidemia, unspecified documented in this encounter Additional Health Concerns Infection Onset Date Last Indicated Resolved Time Norovirus 05/29/2024 05/29/2024 documented as of this encounter Care Teams Champion Of Sustainable Design Relationship Specialty Start Date End Date Donte Powell MD [address] [place] [address] Dr Shine [place] PCP - General Internal Medicine 09/21/18 documented as of this encounter
--- OUTSIDE RECORDS SUMMARY | 2025-01-25 17:03 | XMS_ITS | Encounter Summary ---
Author Organization [facility] Address [address] [place] [address] Care Team Providers Care Milled Rice Broker Name Role Phone Donte Powell MD Primary Care Provider [phone] Encounter Details Date Type Department Care Team (Late st Contact Info) Description 01/12/2025 Lab Requisition [facility] - Main Lab [address] [facility] [place] [address] Ross Saul MD [address] [place] [address] Heart failure, unspecified (CMS/HCC V24, [...] Diagnosis Comments CBC WITH AUTO DIFFERENTIAL Routine 01/13/2025 5:39 AM EDT Heart failure, unspecified (CMS/HCC V24, CMS/HCC V28) Essential (primary) hypertension Hyperlipidemia, unspecified CBC AND DIFFERENTIAL Routine 01/13/2025 5:39 AM EDT Heart failure, unspecified (CMS/HCC V24, CMS/HCC V28) Essential (primary) hypertension Hyperlipidemia, unspecified BASIC METABOLIC PANEL Routine 01/13/2025 5:39 AM EDT Heart failure, unspecified (CMS/HCC V24, CMS/HCC V28) Essential (primary) hypertension Hyperlipidemia, unspecified documented in this encounter Results * (ABNORMAL) CBC auto differential (01/13/2025 5:39 AM EDT) WBC 3.7(L) 4.8 - 10.8 K/mcL LAB HEMETOLOGY METHOD 01/13/2025 8:22 AM [facility] RBC 2.70(L) 4.50 - 5.50 M/mcL LAB HEMETOLOGY METHOD 01/13/2025 8:22 AM [facility] Hemoglobin 8.6(L) 13.5 - 17.5 g/dL LAB HEMETOLOGY METHOD 01/13/2025 8:22 AM [facility] Hematocrit 28.3(L) 42.0 - 54.0 % LAB HEMETOLOGY METHOD 01/13/2025 8:22 AM [facility] MCV 104.8(H) 79.0 - 98.0 FL LAB HEMETOLOGY METHOD 01/13/2025 8:22 AM [facility] MCH 31.9 27.0 - 32.0 pcg LAB HEMETOLOGY METHOD 01/13/2025 8:22 AM [facility] MCHC 30.4(L) 32.0 - 37.0 g/dL LAB HEMETOLOGY METHOD 01/13/2025 8:22 AM [facility] RDW 15.7(H) 11.0 - 15.0 % LAB HEMETOLOGY METHOD 01/13/2025 8:22 AM [facility] Platelets 156 130 - 400 K/mcL LAB HEMETOLOGY METHOD 01/13/2025 8:22 AM [facility] MPV 12.2(H) 7.0 - 11.0 FL LAB HEMETOLOGY METHOD 01/13/2025 8:22 AM [facility] NRBC 0.0 <1.0 % LAB HEMETOLOGY METHOD 01/13/2025 8:22 AM [facility] NRBC Absolute 0.00 <0.10 K/mcL LAB HEMETOLOGY METHOD 01/13/2025 8:22 AM [facility] Neutrophils Relative 54.5 % LAB HEMETOLOGY METHOD 01/13/2025 8:22 AM [facility] Lymphocytes Relative 27.3 % LAB HEMETOLOGY METHOD 01/13/2025 8:22 AM [facility] Monocytes Relative 16.9 % LAB HEMETOLOGY METHOD 01/13/2025 8:22 AM [facility] Eosinophils Relative 0.5 % LAB HEMETOLOGY METHOD 01/13/2025 8:22 AM [facility] Basophils Relative 0.3 % LAB HEMETOLOGY METHOD 01/13/2025 8:22 AM [facility] Immature Granulocytes Relative 0.5 % LAB HEMETOLOGY METHOD 01/13/2025 8:22 AM [facility] Neutrophils Absolute 2.03 1.50 - 7.00 K/mcL LAB HEMETOLOGY METHOD 01/13/2025 8:22 AM [facility] Lymphocytes Absolute 1.02 1.00 - 5.00 K/mcL LAB HEMETOLOGY METHOD 01/13/2025 8:22 AM [facility] Monocytes Absolute 0.63 0.20 - 1.00 K/mcL LAB HEMETOLOGY METHOD 01/13/2025 8:22 AM [facility] Eosinophils Absolute 0.02 0.00 - 0.50 K/mcL LAB HEMETOLOGY METHOD 01/13/2025 8:22 AM [facility] Basophils Absolute 0.01 0.00 - 0.20 K/mcL LAB HEMETOLOGY METHOD 01/13/2025 8:22 AM T [facility] Immature Granulocytes Absolute 0.02 0.00 - 0.03 K/[facility] LAB HEMETOLOGY METHOD 01/13/2025 8:22 AM EDT [facility] Blood Venous blood specimen / Unknown Venipuncture / Unknown 01/13/2025 5:39 AM EDT 01/13/2025 7:36 AM EDT us Ross Saul MD LAB BLOOD ORDERABLES Final Resu lt [facility] [address] [place] [address], [place] [phone] * (ABNORMAL) Basic metabolic panel (01/13/2025 5:39 AM EDT) Sodium 140 133 - 145 mmol/L LAB CHEMISTRY METHOD 01/13/2025 10:32 AM [facility] Potassium 4.1 3.5 - 5.5 mmol/L LAB CHEMISTRY METHOD 01/13/2025 10:32 AM [facility] Chloride 108 96 - 110 mmol/L LAB CHEMISTRY METHOD 01/13/2025 10:32 AM [facility] CO2 26 21 - 32 mmol/L LAB CHEMISTRY METHOD 01/13/2025 10:32 AM [facility] Anion Gap 6 3 - 11 LAB CHEMISTRY METHOD 01/13/2025 10:32 AM [facility] Glucose 123(H) 70 - 100 mg/dL LAB CHEMISTRY METHOD 01/13/2025 10:32 AM [facility] BUN 20 5 - 25 mg/dL LAB CHEMISTRY METHOD 01/13/2025 10:32 AM [facility] Creatinine 0.98 0.70 - 1.30 mg/dL LAB CHEMISTRY METHOD 01/13/2025 10:32 AM EDT [facility] eGFR 77 >=60 mL/min/1. 73m2 LAB CHEMISTRY METHOD 01/13/2025 10:32 AM EDT [facility] Comment:Calculation based on the Chronic Kidney Disease Epidemiology Collaboration (CKD-EPI) equation refit without adjustment for race. BUN/Creatinine Ratio 20.4 LAB CHEMISTRY METHOD 01/13/2025 10:32 AM EDT [facility] Calcium 8.4(L) 8.5 - 10.5 mg/dL LAB CHEMISTRY METHOD 01/13/2025 10:32 AM EDT [facility] Blood Venous blood specimen / Unknown Venipuncture / Unknown 01/13/2025 5:39 AM EDT 01/13/2025 7:36 AM EDT us Ross Saul MD LAB BLOOD ORDERABLES Final Resu lt [facility] [address] [place] [address], documented in this encounter Visit Diagnoses Diagnosis Heart failure, unspecified (CMS/HCC V24, CMS/HCC V28) Heart failure, unspecified Essential (primary) hypertension Unspecified essential hypertension Hyperlipidemia, unspecified documented in this encounter Additional Health Concerns Infection Onset Date Last Indicated Resolved Time Norovirus 05/29/2024 05/29/2024 documented as of this encounter Care Teams Milled Rice Broker Relationship Specialty Start Date End Date Donte Powell MD [address] [place] [address] Dr Shine [place] PCP - General Internal Medicine 09/21/18 documented as of this encounter
--- OUTSIDE RECORDS SUMMARY | 2025-01-25 17:04 | XMS_ITS | Encounter Summary ---
Author Organization [facility] Address [address] [place] [address] Care Team Providers Care Marine Mammal Trainer Name Role Phone Donte Powell MD Primary Care Provider [phone] Encounter Details Date Type Department Care Team (Late st Contact Info) Description 06/03/2024 Lab Requisition [facility] - Main Lab [address] [facility] [place] [address] Ross Saul MD [address] [place] [address] Unspecified atrial fibrillation (CMS/HCC V24, [...] documented as of this encounter Care Teams Marine Mammal Trainer Relationship Specialty Start Date End Date Donte Powell MD [address] [place] [address] Dr Rl [place] PCP - General Internal Medicine 09/21/18 documented as of this encounter
--- OUTSIDE RECORDS SUMMARY | 2025-01-25 17:04 | XMS_ITS | Encounter Summary ---
Author Organization [facility] Address [address] [place] [address] Care Team Providers Care Brake Repair Mechanic Name Role Phone Donte Powell MD Primary Care Provider [phone] Encounter Details Date Type Department Care Team (Late st Contact Info) Description 05/31/2024 Lab Requisition [facility] - Main Lab [address] [facility] [place] [address] Ross Saul MD [address] [place] [address] Unspecified atrial fibrillation (CMS/HCC V24, [...] mmol/L LAB CHEMISTRY METHOD 05/31/2024 10:49 AM [facility] Potassium 4.7 3.5 - 5.5 mmol/L LAB CHEMISTRY METHOD 05/31/2024 10:49 AM [facility] Chloride 110 96 - 110 mmol/L LAB CHEMISTRY METHOD 05/31/2024 10:49 AM [facility] CO2 21 21 - 32 mmol/L LAB CHEMISTRY METHOD 05/31/2024 10:49 AM [facility] Anion Gap 10 3 - 11 LAB CHEMISTRY METHOD 05/31/2024 10:49 AM [facility] Glucose 125(H) 70 - 100 mg/dL LAB CHEMISTRY METHOD 05/31/2024 10:49 AM [facility] BUN 27(H) 5 - 25 mg/dL LAB CHEMISTRY METHOD 05/31/2024 10:49 AM [facility] Creatinine 1.45(H) 0.70 - 1.30 mg/dL LAB CHEMISTRY METHOD 05/31/2024 10:49 AM [facility] eGFR 48(L) >=60 mL/min/1. 73m2 LAB CHEMISTRY METHOD 05/31/2024 10:49 AM [facility] Comment:Calculation based on the Chronic Kidney Disease Epidemiology Collaboration (CKD-EPI) equation refit without adjustment for race. BUN/Creatinine Ratio 18.6 LAB CHEMISTRY METHOD 05/31/2024 10:49 AM [facility] Calcium 7.7(L) 8.5 - 10.5 mg/dL LAB CHEMISTRY METHOD 05/31/2024 10:49 AM [facility] AST (SGOT) 117(H) 10 - 42 unit/L LAB CHEMISTRY METHOD 05/31/2024 10:49 AM [facility] ALT (SGPT) 66(H) 10 - 60 unit/L LAB CHEMISTRY METHOD 05/31/2024 10:49 AM EDT [facility] Alkaline Phosphatase 122(H) 42 - 121 unit/L LAB CHEMISTRY METHOD 05/31/2024 10:49 AM EDT [facility] Total Protein 5.8(L) 6.0 - 8.0 g/dL LAB CHEMISTRY METHOD 05/31/2024 10:49 AM EDT [facility] Albumin 2.2(L) 3.2 - 5.0 g/dL LAB CHEMISTRY METHOD 05/31/2024 10:49 AM EDT [facility] Total Bilirubin 0.4 0.0 - 1.4 mg/dL LAB CHEMISTRY METHOD [facility]24 [facility] Blood Venous blood specimen / Unknown Venipuncture / Unknown 05/31/2024 5:15 AM EDT 05/31/2024 9:44 AM EDT us Ross Saul MD LAB BLOOD ORDERABLES Final Resu lt [facility] [address] [place] [address], * (ABNORMAL) Complete blood count (05/31/2024 5:15 AM EDT) WBC 4.0(L) 4.8 - 10.8 K/mcL LAB HEMETOLOGY METHOD 05/31/2024 10:27 AM EDT [facility] RBC 2.60(L) 4.50 - 5.50 M/mcL LAB HEMETOLOGY METHOD 05/31/2024 10:27 AM EDT [facility] Hemoglobin 8.6(L) 13.5 - 17.5 g/dL LAB HEMETOLOGY METHOD 05/31/2024 10:27 AM EDT [facility] Hematocrit 27.4(L) 42.0 - 54.0 % LAB HEMETOLOGY METHOD 05/31/2024 10:27 AM EDT [facility] MCV 105.8(H) 79.0 - 98.0 FL LAB HEMETOLOGY METHOD 05/31/2024 10:[facility] MCH 33.2(H) 27.0 - 32.0 pcg LAB HEMETOLOGY METHOD 05/31/2024 10:27 AM EDT [facility] MCHC 31.4(L) 32.0 - 37.0 g/dL LAB HEMETOLOGY METHOD 05/31/2024 10:27 AM [facility] RDW 17.7(H) 11.0 - 15.0 % LAB HEMETOLOGY METHOD 05/31/2024 10:27 AM [facility] Platelets 199 130 - 400 K/mcL LAB HEMETOLOGY METHOD 05/31/2024 10:27 AM [facility] MPV 11.7(H) 7.0 - 11.0 FL LAB HEMETOLOGY METHOD 05/31/2024 10:27 AM [facility] NRBC 0.0 <1.0 % LAB HEMETOLOGY METHOD 05/31/2024 10:27 AM [facility] NRBC Absolute 0.00 <0.10 K/mcL LAB HEMETOLOGY METHOD 05/31/2024 10:27 AM [facility] Blood Venous blood specimen / Unknown Venipuncture / Unknown 05/31/2024 5:15 AM EDT 05/31/2024 9:44 AM EDT us Ross Saul MD LAB BLOOD ORDERABLES Final Resu lt [facility] [address] [place] [address], documented in this encounter Visit Diagnoses Diagnosis Unspecified atrial fibrillation (CMS/[facility] V24, CMS/[facility] V28) Anemia, unspecified Anemia in chronic kidney disease (CODE) documented in this encounter Additional Health Concerns Infection Onset Date Last Indicated Resolved Time Norovirus 05/29/2024 05/29/2024 documented as of this encounter Care Teams Brake Repair Mechanic Relationship Specialty Start Date End Date Donte Powell MD [address] [place] [address] Dr Rl [place] PCP - General Internal Medicine 09/21/18 documented as of this encounter
--- OUTSIDE RECORDS SUMMARY | 2025-01-25 17:04 | XMS_ITS | Encounter Summary ---
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, CMS/HCC V28) Social History Tobacco [...] Associated Diagnosis Comments COMPLETE BLOOD COUNT Routine 11/23/2024 5:46 AM EDT Chronic systolic (congestive) heart failure (CMS/HCC V24, CMS/HCC V28) 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, CMS/HCC V28) COMPREHENSIVE METABOLIC PANEL Routine 11/23/2024 5:46 AM EDT Chronic systolic (congestive) heart failure (CMS/HCC V24, CMS/HCC V28) Type 2 diabetes mellitus with diabetic chronic kidney disease ([facility] [place], [facility] V28) documented in this encounter Results * (ABNORMAL) Complete blood count (11/23/2024 5:46 AM EDT) [facility] WBC 5.0 4.8 - 10.8 K/mcL LAB HEMETOLOGY METHOD [facility] RBC 2.50(L) 4.50 - 5.50 M/mcL LAB HEMETOLOGY METHOD 11/23/2024 12:[facility] PM [facility] Hemoglobin 7.8(L) 13.5 - 17.5 g/dL LAB HEMETOLOGY METHOD 11/23/2024 12:30 PM [facility] Hematocrit 25.9(L) 42.0 - 54.0 % LAB HEMETOLOGY METHOD 11/23/2024 12:30 PM [facility] MCV 105.7(H) 79.0 - 98.0 FL LAB HEMETOLOGY METHOD 11/23/2024 12:30 PM [facility] MCH 31.8 27.0 - 32.0 pcg LAB HEMETOLOGY METHOD 11/23/2024 12:30 PM [facility] MCHC 30.1(L) 32.0 - 37.0 g/dL LAB HEMETOLOGY METHOD 11/23/2024 12:30 PM [facility] RDW 17.2(H) 11.0 - 15.0 % LAB HEMETOLOGY METHOD 11/23/2024 12:30 PM [facility] Platelets 209 130 - 400 K/mcL LAB HEMETOLOGY METHOD 11/23/2024 12:30 PM [facility] MPV 11.6(H) 7.0 - 11.0 FL LAB HEMETOLOGY METHOD 11/23/2024 12:30 PM EDT [facility] NRBC 0.0 <1.0 % LAB HEMETOLOGY METHOD 11/23/2024 12:30 PM EDT [facility] NRBC Absolute 0.00 <0.10 K/mcL LAB HEMETOLOGY METHOD 11/23/2024 12:30 PM EDT [facility] Blood Venous blood specimen / Unknown Venipuncture / Unknown 11/23/2024 5:46 AM EDT 11/23/2024 10:15 AM EDT us Ross Saul MD LAB BLOOD ORDERABLES Final Resu lt [facility] [address] [place] [address], [place] [phone] * (ABNORMAL) Comprehensive metabolic panel (11/23/2024 5:46 AM EDT) Sodium 142 133 - 145 mmol/L LAB CHEMISTRY METHOD 11/23/2024 11:54 AM [facility] Potassium 3.6 3.5 - 5.5 mmol/L LAB CHEMISTRY METHOD 11/23/2024 11:54 AM [facility] Chloride 111(H) 96 - 110 mmol/L LAB CHEMISTRY METHOD 11/23/2024 11:54 AM [facility] CO2 24 21 - 32 mmol/L LAB CHEMISTRY METHOD 11/23/2024 11:54 AM [facility] Anion Gap 7 3 - 11 LAB CHEMISTRY METHOD 11/23/2024 11:54 AM [facility] Glucose 70 70 - 100 mg/dL LAB CHEMISTRY METHOD 11/23/2024 11:54 AM [facility] BUN 11 5 - 25 mg/dL LAB CHEMISTRY METHOD 11/23/2024 11:54 AM [facility] Creatinine 0.75 0.70 - 1.30 mg/dL LAB CHEMISTRY METHOD 11/23/2024 11:54 AM [facility] eGFR 90 >=60 mL/min/1. 73m2 LAB CHEMISTRY METHOD 11/23/2024 11:54 AM [facility] Comment:Calculation based on the Chronic Kidney Disease Epidemiology Collaboration (CKD-EPI) equation refit without adjustment for race. BUN/Creatinine Ratio 14.7 LAB CHEMISTRY METHOD 11/23/2024 11:54 AM [facility] Calcium 7.8(L) 8.5 - 10.5 mg/dL LAB CHEMISTRY METHOD 11/23/2024 11:54 AM [facility] AST (SGOT) 44(H) 10 - 42 unit/L LAB CHEMISTRY METHOD 11/23/2024 11:54 AM [facility] ALT (SGPT) 29 10 - 60 unit/L LAB CHEMISTRY METHOD 11/23/2024 11:54 AM [facility] Alkaline Phosphatase 113 42 - 121 unit/L LAB CHEMISTRY METHOD 11/23/2024 11:54 AM [facility] Total Protein 4.9(L) 6.0 - 8.0 g/dL LAB CHEMISTRY METHOD 11/23/2024 11:54 AM [facility] Albumin 1.9(L) 3.2 - 5.0 g/dL LAB CHEMISTRY METHOD 11/23/2024 11:54 AM [facility] Total Bilirubin 0.3 0.0 - 1.4 mg/dL LAB CHEMISTRY METHOD 11/23/2024 11:54 AM [facility] Blood Venous blood specimen / Unknown Venipuncture / Unknown 11/23/2024 5:46 AM EDT 11/23/2024 10:14 AM EDT us Ross Saul MD LAB BLOOD ORDERABLES Final Resu lt [facility] [address] [place] [address], documented in this encounter Visit Diagnoses Diagnosis Chronic systolic (congestive) heart failure (CMS/[facility] V24, [facility] V28) Type 2 diabetes mellitus with diabetic chronic kidney disease (CMS/[facility] V24, [facility] V28) documented in this encounter Additional Health Concerns Infection Onset Date Last Indicated Resolved Time Norovirus 05/29/2024 05/29/2024 documented as of this encounter Care Teams Ordnance Artificer Relationship Specialty Start Date End Date Donte Powell MD [address] [place] [address] Dr Rl [place] PCP - General Internal Medicine 09/21/18 documented as of this encounter
--- OUTSIDE RECORDS SUMMARY | 2025-01-25 17:04 | XMS_ITS | Encounter Summary ---
Author Organization [facility] Address [address] [place] [address] Care Team Providers Care Shipwright Supervisor Name Role Phone Donte Powell MD Primary Care Provider Encounter Details Date Type Department Care Team (Late st Contact Info) Description 06/05/[address] [facility] - Main Lab [address] [facility] [place] [address] Ross Saul MD [address] [place] [address] Unspecified atrial fibrillation (CMS/HCC V24, [...] mmol/L LAB CHEMISTRY METHOD 06/07/2024 10:44 AM [facility] Potassium 4.1 3.5 - 5.5 mmol/L LAB CHEMISTRY METHOD 06/07/2024 10:44 AM [facility] Chloride 108 96 - 110 mmol/L LAB CHEMISTRY METHOD 06/07/2024 10:44 AM [facility] CO2 23 21 - 32 mmol/L LAB CHEMISTRY METHOD 06/07/2024 10:44 AM [facility] Anion Gap 11 3 - 11 LAB CHEMISTRY METHOD 06/07/2024 10:44 AM [facility] Glucose 115(H) 70 - 100 mg/dL LAB CHEMISTRY METHOD 06/07/2024 10:44 AM [facility] BUN 21 5 - 25 mg/dL LAB CHEMISTRY METHOD 06/07/2024 10:44 AM [facility] Creatinine 1.37(H) 0.70 - 1.30 mg/dL LAB CHEMISTRY METHOD 06/07/2024 10:44 AM [facility] eGFR 52(L) >=60 mL/min/1. 73m2 LAB CHEMISTRY METHOD 06/07/2024 10:44 AM [facility] Comment:Calculation based on the Chronic Kidney Disease Epidemiology Collaboration (CKD-EPI) equation refit without adjustment for race. BUN/Creatinine Ratio 15.3 LAB CHEMISTRY METHOD 06/07/2024 10:44 AM [facility] Calcium 8.3(L) 8.5 - 10.5 mg/dL LAB CHEMISTRY METHOD 06/07/2024 10:44 AM [facility] AST (SGOT) 92(H) 10 - 42 unit/L LAB CHEMISTRY METHOD 06/07/2024 10:44 AM [facility] ALT (SGPT) 64(H) 10 - 60 unit/L LAB CHEMISTRY METHOD 06/07/2024 10:44 AM [facility] Alkaline Phosphatase 139(H) 42 - 121 unit/L LAB CHEMISTRY METHOD 06/07/2024 10:44 AM EDT [facility] Total Protein 6.1 6.0 - 8.0 g/dL LAB CHEMISTRY METHOD 06/07/2024 10:44 AM EDT [facility] Albumin 2.4(L) 3.2 - 5.0 g/dL LAB CHEMISTRY METHOD 06/07/2024 10:44 AM EDT [facility] Total Bilirubin 0.5 0.0 - 1.4 mg/dL LAB CHEMISTRY METHOD 06/07/2024 10:44 AM EDT [facility] Blood Venous blood specimen / Unknown Venipuncture / Unknown 06/07/2024 5:10 AM EDT 06/07/2024 9:45 AM EDT Ross Saul MD LAB BLOOD ORDERABLES Final Resu lt [facility] [address] [place] [address], [place] [phone] * (ABNORMAL) Complete blood count (06/07/2024 5:10 AM EDT) WBC 4.7(L) 4.8 - 10.8 K/mcL LAB HEMETOLOGY METHOD 06/07/2024 10:26 AM T [facility] RBC 2.80(L) 4.50 - 5.50 M/mcL LAB HEMETOLOGY METHOD 06/07/2024 10:26 AM EDT [facility] Hemoglobin 8.8(L) 13.5 - 17.5 g/dL LAB HEMETOLOGY METHOD 06/07/2024 10:26 AM [facility] Hematocrit 28.8(L) 42.0 - 54.0 % LAB HEMETOLOGY METHOD 06/07/2024 10:26 AM EDT [facility] MCV 102.5(H) 79.0 - 98.0 FL LAB HEMETOLOGY METHOD 06/07/2024 10:26 AM EDT [facility] MCH 31.3 27.0 - 32.0 pcg LAB HEMETOLOGY METHOD 06/07/2024 10:26 AM EDT [facility] MCHC 30.6(L) 32.0 - 37.0 g/dL LAB HEMETOLOGY METHOD 06/07/2024 10:26 AM EDT [facility] RDW 17.2(H) 11.0 - 15.0 % LAB HEMETOLOGY METHOD 06/07/2024 10:26 AM EDT [facility] Platelets 220 130 - 400 K/mcL LAB HEMETOLOGY METHOD 06/07/2024 10:26 AM EDT [facility] MPV 11.5(H) 7.0 - 11.0 FL LAB HEMETOLOGY METHOD 06/07/2024 10:26 AM EDT [facility] NRBC 0.0 <1.0 % LAB HEMETOLOGY METHOD 06/07/2024 10:26 AM EDT [facility] NRBC Absolute 0.00 <0.10 K/mcL LAB HEMETOLOGY METHOD 06/07/2024 10:26 AM T [facility] Blood Venous blood specimen / Unknown Venipuncture / Unknown 06/07/2024 5:10 AM EDT 06/07/2024 9:43 AM EDT us Ross Saul MD LAB BLOOD ORDERABLES Final Resu lt [facility] [address] [place] [address], documented in this encounter Visit Diagnoses Diagnosis Unspecified atrial fibrillation (CMS/HCC V24, CMS/HCC V28) documented in this encounter Additional Health Concerns Infection Onset Date Last Indicated Resolved Time Norovirus 05/29/2024 05/29/2024 documented as of this encounter Care Teams Shipwright Supervisor Relationship Specialty Start Date End Date Donte Powell MD [address] [place] [address] Dr Rl [place] PCP - General Internal Medicine 09/21/18 documented as of this encounter
--- OUTSIDE RECORDS SUMMARY | 2025-01-25 17:04 | XMS_ITS | Encounter Summary ---
Author Organization [facility] Address [address] [place] [address] Care Team Providers Care Network Announcer Name Role Phone Donte Powell MD Primary Care Provider [phone] Encounter Details Date Type Department Care Team (Late st Contact Info) Description 06/10/2024 Lab Requisition [facility] - Main Lab [address] [facility] [place] [address] Ross Saul MD [address] [place] [address] Unspecified atrial fibrillation (CMS/HCC V24, [...] documented as of this encounter Care Teams Network Announcer Relationship Specialty Start Date End Date Donte Powell MD [address] [place] [address] Dr Rl [place] PCP - General Internal Medicine 09/21/18 documented as of this encounter
--- OUTSIDE RECORDS SUMMARY | 2025-01-25 17:04 | XMS_ITS | Encounter Summary ---
Author Organization [facility] Address [address] [place] [address] Care Team Providers Care Camp Counselor Name Role Phone Donte Powell MD Primary Care Provider [phone] Encounter Details Date Type Department Care Team (Late st Contact Info) Description 12/04/2024 Lab Requisition [facility] - Main Lab [address] [facility] [place] [address] Ross Saul MD [address] [place] [address] Chronic systolic (congestive) heart failure [...] as of this encounter Visit Diagnoses Diagnosis Chronic systolic (congestive) heart failure (CMS/HCC V24, CMS/HCC V28) 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, CMS/HCC V28) documented in this encounter Additional Health Concerns Infection Onset Date Last Indicated Resolved Time Norovirus 05/29/2024 05/29/2024 documented as of this encounter Care Teams Camp Counselor Relationship Specialty Start Date End Date Donte Powell MD [address] [place] [address] Dr Rl [place] PCP - General Internal Medicine 09/21/18 documented as of this encounter
--- OUTSIDE RECORDS SUMMARY | 2025-01-25 17:04 | XMS_ITS | Clinical Summary ---
Author Organization [address] Address [address] [place] [phone] Phone Care Team Providers Care Gambling Monitor Name Role Phone Donte Powell MD Primary Care Provider Encounters Date Type Department Care Team Description 01/19/2025 Lab Requisition [facility] [address] [place] [phone] Ross Saul MD Heart failure, unspecified (CMS/HCC V24, CMS/HCC V28); Essential (primary) hypertension; Hyperlipidemia, unspecified 01/14/2025 Lab Requisition [facility] [address] [place] [phone] Ross Saul MD Heart failure, unspecified (CMS/HCC V24, CMS/HCC V28); Essential (primary) hypertension; Hyperlipidemia, unspecified 01/12/2025 Lab Requisition [facility] [address] [place] [phone] Ross Saul MD Heart failure, unspecified (CMS/HCC V24, CMS/HCC V28); Essential (primary) hypertension; Hyperlipidemia, unspecified 01/08/2025 Lab Requisition [facility] [address] [place] [phone] Ross Saul MD Heart failure, unspecified (CMS/HCC V24, CMS/HCC V28); Essential (primary) hypertension; Hyperlipidemia, unspecified 01/05/2025 Lab Requisition [facility] [address] [place] [phone] Ross Saul MD Heart failure, unspecified [place] [place] [facility] [place] Essential (primary) hypertension; Hyperlipidemia, unspecified 12/31/2024 Lab Requisition [facility] [address] [place] [phone] Ross Saul MD Heart failure, unspecified ([facility] [place], [facility] [place] Essential (primary) hypertension; Hyperlipidemia, unspecified 12/29/2024 Lab Requisition [facility] [address] [place] [phone] Ross Saul MD Heart failure, unspecified ([facility] [place], [facility] [place] Essential (primary) hypertension; Hyperlipidemia, unspecified 12/28/2024 Lab Requisition [facility] [address] [place] [phone] oRss Saul MD Heart failure, unspecified ([facility] [place], [facility] [place] Hyperlipidemia, unspecified 12/04/2024 Lab Requisition [facility] [address] [place] [phone] Ross Saul MD Chronic systolic (congestive) heart failure ([facility] [place], [facility] [place] Type 2 diabetes mellitus with diabetic chronic kidney disease ([facility] [place], [facility] [place] 12/01/2024 Lab Requisition [facility] [address] [place] [phone] Ross Saul MD Chronic systolic (congestive) heart failure ([facility] [place], [facility] [place] Type 2 diabetes mellitus with diabetic chronic kidney disease ([facility] [place], [facility] [place] 11/26/2024 Lab Requisition [facility] [address] [place] [phone] Ross Saul MD Chronic systolic (congestive) heart failure ([facility] [place], [facility] V28); Type 2 diabetes mellitus with diabetic chronic kidney disease ([facility] [place], [facility] V28) 11/26/2024 Lab Requisition [facility] [address] [place] [phone] Ross Saul MD Chronic systolic (congestive) heart failure [place] [place], [facility] [place] 11/24/2024 Lab Requisition [facility] [address] [place] [phone] Ross aSul MD Chronic systolic (congestive) heart failure ([facility] [place], [facility] [place] Type 2 diabetes mellitus with diabetic chronic kidney disease ([facility] [place], [facility] [place] 11/19/2024 Lab Requisition [facility] [address] [place] [phone] Ross Saul MD Chronic systolic (congestive) heart failure ([facility] [place], [facility] [place] [place] Type 2 diabetes mellitus with diabetic chronic kidney disease ([facility] [place], [facility] [place] [place]) 11/18/2024 Lab Requisition [facility] [address] [place] [phone] Ross Saul MD Chronic systolic (congestive) heart failure ([facility] [place], [facility] [place] [place] Acute kidney failure, unspecified ([facility] [place]) from Last 3 Months Surgical History Surgery Date Site/Laterality Comments APPENDECTOMY PROCEDURE: HISTORICAL APPENDECTOMY; COMMENT: 1947 OTHER SURGICAL HISTORY PROCEDURE: [place] HEMORRHOID NTRNL & XTRNL 1 COLUMN W/FISSURECTO; COMMENT: 1971 CATARACT EXTRACTION PROCEDURE: HISTORICAL CATARACT REMOVAL; COMMENT: left and right, 2008 OTHER SURGICAL HISTORY PROCEDURE: [place] BYP OTH/THN VEIN AORTOBIFEMORAL Medical History Medical History Date Comments HTN (hypertension) DX:HTN (hyper tension) Diabetes ([facility] [place] [place], [facility] [place]) DX:Diabetes (HCC) Hypercholesteremia DX:Hyperchole steremia Lymphoma ([facility] [place] [place], [facility] [place] [place]) DX:Lymphoma (HCC); COMMENT: nk-t cell Atrial fibrillation ([facility] V24, [facility] V28) DX:Atrial fibrillation [...] Patients (1 - 1-dose 75+ series) 2016 Depression Screening 03/24/2024 Cholesterol Screening (Lipid Panel) 05/31/2024 Diabetes: Annual Urine Albumin-Creatinine Ratio (uACR) 05/31/2024 Diabetes: Blood Sugar Control Test (HGBA1C) 05/31/2024 03/19/2017 Falls Risk Assessment 05/31/2024 Medicare Annual Wellness Visit 05/31/2024 Social Influencers of Health Screening 05/31/2024 COVID-19 Vaccine (2024- season) 2024 03/03/2021, 05/10/2020, 04/12/2020 Influenza Vaccine (#1) 2024 , 12/04/2018, 04/18/2017 Diabetes: Annual GFR (Glomerular Filtration Rate) 01/17/2026 01/17/2025, 01/13/2025, 01/10/2025, Additional history exists Hypertension/CHF/CAD Annual BMP Blood Test 01/17/2026 01/17/2025, 01/13/2025, 01/10/2025, Additional history exists DTaP,Tdap,and Td Vaccines (3 [...] 20 months Aged Out No longer eligible based on [...] V28) Essential (primary) hypertension Hyperlipidemia, unspecified CBC WITH AUTO DIFFERENTIAL Routine 01/13/2025 5:39 AM EDT Heart failure, unspecified (CMS/HCC V24, CMS/HCC V28) Essential (primary) hypertension Hyperlipidemia, unspecified BASIC METABOLIC PANEL Routine 01/13/2025 5:39 AM EDT Heart failure, unspecified (CMS/HCC V24, CMS/HCC V28) Essential (primary) hypertension Hyperlipidemia, unspecified CBC AND DIFFERENTIAL Routine 01/13/2025 5:39 AM EDT Heart failure, unspecified (CMS/HCC V24, CMS/HCC V28) Essential (primary) hypertension Hyperlipidemia, unspecified CBC WITH AUTO DIFFERENTIAL Routine 01/10/2025 5:35 AM EDT Heart failure, unspecified (CMS/HCC V24, CMS/HCC V28) Essential (primary) hypertension Hyperlipidemia, unspecified COMPREHENSIVE METABOLIC PANEL Routine 01/10/2025 5:35 AM EDT Heart failure, unspecified (CMS/HCC V24, CMS/HCC V28) Essential (primary) hypertension Hyperlipidemia, unspecified CBC AND DIFFERENTIAL Routine 01/10/2025 5:35 AM EDT Heart failure, unspecified (CMS/HCC V24, CMS/HCC V28) Essential (primary) hypertension Hyperlipidemia, unspecified CBC WITH AUTO DIFFERENTIAL Routine 01/06/2025 7:06 AM EDT Heart failure, unspecified (CMS/HCC V24, CMS/HCC V28) Essential (primary) hypertension Hyperlipidemia, unspecified CBC AND DIFFERENTIAL Routine 01/06/2025 7:06 AM EDT Heart failure, unspecified (CMS/HCC V24, CMS/HCC V28) Essential (primary) hypertension Hyperlipidemia, unspecified BASIC METABOLIC PANEL Routine 01/06/2025 7:06 AM EDT Heart failure, unspecified (CMS/HCC V24, CMS/HCC V28) Essential (primary) hypertension Hyperlipidemia, unspecified CBC WITH AUTO DIFFERENTIAL Routine 01/03/2025 5:42 AM EDT Heart failure, unspecified (CMS/HCC V24, CMS/HCC V28) Essential (primary) hypertension Hyperlipidemia, unspecified CBC AND DIFFERENTIAL Routine 01/03/2025 5:42 AM EDT Heart failure, unspecified (CMS/HCC V24, CMS/HCC V28) Essential (primary) hypertension Hyperlipidemia, unspecified COMPREHENSIVE METABOLIC PANEL Routine 01/03/2025 5:42 AM EDT Heart failure, unspecified (CMS/HCC V24, CMS/HCC V28) Essential (primary) hypertension Hyperlipidemia, unspecified CBC WITH AUTO DIFFERENTIAL Routine 12/30/2024 8:31 AM EDT Heart failure, unspecified (CMS/HCC V24, CMS/HCC V28) Essential (primary) hypertension Hyperlipidemia, unspecified CBC AND DIFFERENTIAL Routine 12/30/2024 8:31 AM EDT Heart failure, unspecified (CMS/HCC V24, CMS/HCC V28) Essential (primary) hypertension Hyperlipidemia, unspecified BASIC METABOLIC PANEL Routine 12/30/2024 8:31 AM EDT Heart failure, unspecified (CMS/HCC V24, CMS/HCC V28) Essential (primary) hypertension Hyperlipidemia, unspecified CBC WITH AUTO DIFFERENTIAL Routine 12/28/2024 5:24 AM EDT Heart failure, unspecified (CMS/HCC V24, CMS/HCC V28) Hyperlipidemia, unspecified COMPREHENSIVE METABOLIC PANEL Routine 12/28/2024 5:24 AM EDT Heart failure, unspecified (CMS/HCC V24, CMS/HCC V28) Hyperlipidemia, unspecified CBC AND DIFFERENTIAL Routine 12/28/2024 5:24 AM EDT Heart failure, unspecified (CMS/HCC V24, CMS/HCC V28) Hyperlipidemia, unspecified BASIC METABOLIC PANEL Routine 12/02/2024 4:53 AM EDT Chronic systolic (congestive) heart failure (CMS/HCC V24, CMS/HCC V28) 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, CMS/HCC V28) COMPLETE BLOOD COUNT Routine 12/02/2024 4:53 AM EDT Chronic systolic (congestive) heart failure (CMS/HCC V24, CMS/HCC V28) 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, CMS/HCC V28) B-TYPE NATRIURETIC PEPTIDE Routine 11/29/2024 5:16 AM EDT Chronic systolic (congestive) heart failure (CMS/HCC V24, CMS/HCC V28) 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, CMS/HCC V28) COMPLETE BLOOD COUNT Routine 11/29/2024 5:16 AM EDT Chronic systolic (congestive) heart failure (CMS/HCC V24, CMS/HCC V28) 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, CMS/HCC V28) COMPREHENSIVE METABOLIC PANEL Routine 11/29/2024 5:16 AM EDT Chronic systolic (congestive) heart failure (CMS/HCC V24, CMS/HCC V28) 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, CMS/HCC V28) BASIC METABOLIC PANEL Routine 11/25/2024 7:00 AM EDT Chronic systolic (congestive) heart failure (CMS/HCC V24, CMS/HCC V28) 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, CMS/HCC V28) COMPLETE BLOOD COUNT Routine 11/25/2024 7:00 AM EDT Chronic systolic (congestive) heart failure (CMS/HCC V24, CMS/HCC V28) 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, CMS/HCC V28) COMPLETE BLOOD COUNT Routine 11/23/2024 5:46 AM [...] V24, CMS/HCC V28) COMPREHENSIVE METABOLIC PANEL Routine 11/18/2024 6:05 AM EDT Chronic systolic (congestive) heart failure ([facility] V24, [facility] V28) Acute kidney failure, unspecified ([facility] V24) COMPLETE BLOOD COUNT Routine 11/18/2024 6:05 AM EDT Chronic systolic (congestive) heart failure ([facility] V24, [facility] V28) Acute kidney failure, unspecified ([facility] [place] [place] from Last 3 Months Results * (ABNORMAL) CBC auto differential (01/17/2025 5:50 AM EDT) Only the most recent of7 resultswithin the time period is included. WBC 4.2(L) 4.8 - 10.8 K/mcL LAB HEMETOLOGY METHOD 01/17/2025 10:22 AM [facility] LAB RBC 2.70(L) 4.50 - 5.50 M/mcL LAB HEMETOLOGY METHOD 01/17/2025 10:22 AM [facility] LAB Hemoglobin 8.3(L) 13.5 - 17.5 g/dL LAB HEMETOLOGY METHOD 01/17/2025 10:22 AM [facility] LAB Hematocrit 28.1(L) 42.0 - 54.0 % LAB HEMETOLOGY METHOD 01/17/2025 10:22 AM [facility] LAB MCV 106.0(H) 79.0 - 98.0 FL LAB HEMETOLOGY METHOD 01/17/2025 10:22 AM [facility] LAB MCH 31.3 27.0 - 32.0 pcg LAB HEMETOLOGY METHOD 01/17/2025 10:22 AM [facility] LAB MCHC 29.5(L) 32.0 - 37.0 g/dL LAB HEMETOLOGY METHOD 01/17/2025 10:22 AM [facility] LAB RDW 15.8(H) 11.0 - 15.0 % LAB HEMETOLOGY METHOD 01/17/2025 10:22 AM [facility] LAB Platelets 154 130 - 400 K/mcL LAB HEMETOLOGY METHOD 01/17/2025 10:22 AM [facility] LAB MPV 12.6(H) 7.0 - 11.0 FL LAB HEMETOLOGY METHOD 01/17/2025 10:22 AM [facility] LAB NRBC 0.0 <1.0 % LAB HEMETOLOGY METHOD 01/17/2025 10:22 AM [facility] LAB NRBC Absolute 0.00 <0.10 K/[facility] LAB HEMETOLOGY METHOD 01/17/2025 10:22 AM [facility] LAB Neutrophils Relative 53.2 % LAB HEMETOLOGY METHOD 01/17/2025 10:22 AM [facility] LAB Lymphocytes Relative 26.4 % LAB HEMETOLOGY METHOD 01/17/2025 10:22 AM [facility] LAB Monocytes Relative 18.5 % LAB HEMETOLOGY METHOD 01/17/2025 10:22 AM [facility] LAB Eosinophils Relative 1.2 % LAB HEMETOLOGY METHOD 01/17/2025 10:22 AM [facility] LAB Basophils Relative 0.2 % LAB HEMETOLOGY METHOD 01/17/2025 10:22 AM [facility] LAB Immature Granulocytes Relative 0.5 % LAB HEMETOLOGY METHOD 01/17/2025 10:22 AM [facility] LAB Neutrophils Absolute 2.21 1.50 - 7.00 K/[facility] LAB HEMETOLOGY METHOD 01/17/2025 10:22 AM [facility] LAB Lymphocytes Absolute 1.10 1.00 - 5.00 K/mcL LAB HEMETOLOGY METHOD 01/17/2025 10:22 AM EDT [facility] LAB Monocytes Absolute 0.77 0.20 - 1.00 K/mcL LAB HEMETOLOGY METHOD 01/17/2025 10:22 AM EDT [facility] LAB Eosinophils Absolute 0.05 0.00 - 0.50 K/mcL LAB HEMETOLOGY METHOD 01/17/2025 10:22 AM EDT [facility] LAB Basophils Absolute 0.01 0.00 - 0.20 K/mcL LAB HEMETOLOGY METHOD 01/17/2025 10:22 AM EDT [facility] LAB Immature Granulocytes Absolute 0.02 0.00 - 0.03 K/mcL LAB HEMETOLOGY METHOD 01/17/2025 10:22 AM [facility] LAB Blood Venous blood specimen / Unknown Venipuncture / Unknown 01/17/2025 5:50 AM EDT 01/17/2025 10:05 AM EDT us Ross Saul MD LAB BLOOD ORDERABLES Final Resu lt [facility] [address] [place] [address], [place] [phone] * (ABNORMAL) Comprehensive metabolic panel (01/17/2025 5:50 AM EDT) Only the most recent of7 resultswithin the time period is included. Sodium 141 133 - 145 mmol/L LAB CHEMISTRY METHOD 01/17/2025 10:57 AM T [facility] LAB Potassium 4.2 3.5 - 5.5 mmol/L LAB CHEMISTRY METHOD 01/17/2025 10:57 AM T [facility] LAB Chloride 109 96 - 110 mmol/L LAB CHEMISTRY METHOD 01/17/2025 10:57 AM [facility] LAB CO2 28 21 - 32 mmol/L LAB CHEMISTRY METHOD 01/17/2025 10:57 AM EDT [facility] LAB Anion Gap 4 3 - 11 LAB CHEMISTRY METHOD 01/17/2025 10:57 AM [facility] LAB Glucose 77 70 - 100 mg/dL LAB CHEMISTRY METHOD 01/17/2025 10:57 AM [facility] LAB BUN 19 5 - 25 mg/dL LAB CHEMISTRY METHOD 01/17/2025 10:57 AM [facility] LAB Creatinine 1.11 0.70 - 1.30 mg/dL LAB CHEMISTRY METHOD 01/17/2025 10:57 AM [facility] LAB eGFR 66 >=60 mL/min/1. 73m2 LAB CHEMISTRY METHOD 01/17/2025 10:57 AM [facility] LAB Comment:Calculation based on the Chronic Kidney Disease Epidemiology Collaboration (CKD-EPI) equation refit without adjustment for race. BUN/Creatinine Ratio 17.1 LAB CHEMISTRY METHOD 01/17/2025 10:57 AM [facility] LAB Calcium 8.6 8.5 - 10.5 mg/dL LAB CHEMISTRY METHOD 01/17/2025 10:57 AM [facility] LAB AST (SGOT) 21 10 - 42 unit/L LAB CHEMISTRY METHOD 01/17/2025 10:57 AM [facility] LAB ALT (SGPT) 17 10 - 60 unit/L LAB CHEMISTRY METHOD 01/17/2025 10:57 AM [facility] LAB Alkaline Phosphatase 143(H) 42 - 121 unit/L LAB CHEMISTRY METHOD 01/17/2025 10:57 AM [facility] LAB Total Protein 6.5 6.0 - 8.0 g/dL LAB CHEMISTRY METHOD 01/17/2025 10:57 AM [facility] LAB Albumin 2.5(L) 3.2 - 5.0 g/dL LAB CHEMISTRY METHOD 01/17/2025 10:57 AM [facility] LAB Total Bilirubin 0.5 0.0 - 1.4 mg/dL LAB CHEMISTRY METHOD 01/17/2025 10:57 AM [facility] LAB Blood Venous blood specimen / Unknown Venipuncture / Unknown 01/17/2025 5:50 AM EDT 01/17/2025 10:05 AM EDT us Ross Saul MD LAB BLOOD ORDERABLES Final Resu lt [facility] [address] [place] [address], [place] [phone] * (ABNORMAL) Basic metabolic panel (01/13/2025 5:39 AM EDT) Only the most recent of5 resultswithin the time period is included. Sodium 140 133 - 145 mmol/L LAB CHEMISTRY METHOD 01/13/2025 10:32 AM [facility] LAB Potassium 4.1 3.5 - 5.5 mmol/L LAB CHEMISTRY METHOD 01/13/2025 10:32 AM [facility] Chloride 108 96 - 110 mmol/L LAB CHEMISTRY METHOD 01/13/2025 10:32 AM [facility] CO2 26 21 - 32 mmol/L LAB CHEMISTRY METHOD 01/13/2025 10:32 AM [facility] LAB Anion Gap 6 3 - 11 LAB CHEMISTRY METHOD 01/13/2025 10:32 AM [facility] LAB Glucose 123(H) 70 - 100 mg/dL LAB CHEMISTRY METHOD 01/13/2025 10:32 AM [facility] BUN 20 5 - 25 mg/dL LAB CHEMISTRY METHOD 01/13/2025 10:32 AM [facility] LAB Creatinine 0.98 0.70 - 1.30 mg/dL LAB CHEMISTRY METHOD 01/13/2025 10:32 AM [facility] LAB eGFR 77 >=60 mL/min/1. 73m2 LAB CHEMISTRY METHOD 01/13/2025 10:32 AM [facility] LAB Comment:Calculation based on the Chronic Kidney Disease Epidemiology Collaboration (CKD-EPI) equation refit without adjustment for race. BUN/Creatinine Ratio 20.4 LAB CHEMISTRY METHOD 01/13/2025 10:32 AM EDT [facility] Calcium 8.4(L) 8.5 - 10.5 mg/dL LAB CHEMISTRY METHOD 01/13/2025 10:32 AM T [facility] Blood Venous blood specimen / Unknown Venipuncture / Unknown 01/13/2025 5:39 AM EDT 01/13/2025 7:36 AM EDT us Ross Saul MD LAB BLOOD ORDERABLES Final Resu lt [facility] [address] [place] [address], [place] [phone] * (ABNORMAL) Complete blood count (12/02/2024 4:53 AM EDT) Only the most recent of5 resultswithin the time period is included. WBC 4.1(L) 4.8 - 10.8 K/mcL LAB HEMETOLOGY METHOD 12/02/2024 8:43 AM [facility] LAB RBC 2.50(L) 4.50 - 5.50 M/mcL LAB HEMETOLOGY METHOD 12/02/2024 8:43 AM [facility] LAB Hemoglobin 8.1(L) 13.5 - 17.5 g/dL LAB HEMETOLOGY METHOD 12/02/2024 8:43 AM [facility] LAB Hematocrit 26.5(L) 42.0 - 54.0 % LAB HEMETOLOGY METHOD 12/02/2024 8:43 AM [facility] LAB MCV 105.2(H) 79.0 - 98.0 FL LAB HEMETOLOGY METHOD 12/02/2024 8:43 AM [facility] LAB MCH 32.1(H) 27.0 - 32.0 pcg LAB HEMETOLOGY METHOD 12/02/2024 8:43 AM EDT [facility] MCHC 30.6(L) 32.0 - 37.0 g/dL LAB HEMETOLOGY METHOD 12/02/2024 8:43 AM EDT [facility] RDW 16.8(H) 11.0 - 15.0 % LAB HEMETOLOGY METHOD 12/02/2024 8:43 AM EDT [facility] Platelets 173 130 - 400 K/mcL LAB HEMETOLOGY METHOD 12/02/2024 8:43 AM EDT [facility] MPV 11.5(H) 7.0 - 11.0 FL LAB HEMETOLOGY METHOD 12/02/2024 8:43 AM EDT [facility] NRBC 0.0 <1.0 % LAB HEMETOLOGY METHOD 12/02/2024 8:43 AM EDT [facility] NRBC Absolute 0.00 <0.10 K/mcL LAB HEMETOLOGY METHOD 12/02/2024 8:43 AM EDT [facility] Blood Venous blood specimen / Unknown Venipuncture / Unknown 12/02/2024 4:53 AM EDT 12/02/2024 8:33 AM EDT us Ross Saul MD LAB BLOOD ORDERABLES Final Resu lt [facility] [address] [place] [address], * (ABNORMAL) B-type natriuretic peptide (11/29/2024 5:16 AM EDT) BNP 1,633(H) <=100 pcg/mL LAB CHEMISTRY METHOD 11/29/2024 11:13 AM EDT [facility] Blood Venous blood specimen / Unknown Venipuncture / Unknown 11/29/2024 5:16 AM EDT 11/29/2024 10:25 AM EDT us Rsos Saul MD LAB BLOOD ORDERABLES [facility] [address] [place] [address], [place] [phone] from Last 3 Months Additional Health Concerns Infection Onset Date Last Indicated Norovirus 05/29/2024 05/29/2024 Insurance MEDICARE [facility] Care Teams Gambling Monitor Relationship Specialty Start Date End Date Donte Powell MD [address] [place] [address] Dr Rl [place] PCP - General Internal Medicine 09/21/18
--- OUTSIDE RECORDS SUMMARY | 2025-01-25 17:04 | XMS_ITS | Encounter Summary ---
Author Organization [facility] Address [address] [place] [address] Care Team Providers Care Cotton Inspector Name Role Phone Donte Powell MD Primary Care Provider [phone] Encounter Details Date Type Department Care Team (Late st Contact Info) Description 11/26/2024 Lab Requisition [facility] Lab [address] [place] [address] Ross Saul MD [address] [place] [address] Chronic systolic (congestive) heart failure (CMS/HCC V24, CMS/HCC V28) Social History Tobacco [...] (congestive) heart failure (CMS/HCC V24, CMS/HCC V28) documented in this encounter Additional Health Concerns Infection Onset Date Last Indicated Resolved Time Norovirus 05/29/2024 05/29/2024 documented as of this encounter Care Teams Cotton Inspector Relationship Specialty Start Date End Date Donte Powell MD [address] [place] [address] Dr Rl [place] PCP - General Internal Medicine 09/21/18 documented as of this encounter
--- OUTSIDE RECORDS SUMMARY | 2025-01-25 17:04 | XMS_ITS | Clinical Summary ---
Author Organization [facility] Address [address] [place] [address] Phone Care Team Providers Care Spanish Tutor Name Role Phone Donte Powell MD Primary Care Provider [phone] Allergies Active Allergy Reactions Criticality Noted Date Comments [place] (Diagnostic) Other (see comments) 2024 [place] Oil Swelling High 08/26/2024 he is allergic to shellfish swelling in lips and body Shellfish Protein-Containing Drug Products Shortness of breath High 08/26/2024 Warfarin Rash Low 06/10/2023 Medications acetaminophen (TYLENOL) 325 MG tablet 4 Active amiodarone (PACERONE) 200 MG tablet 4 Active apixaban (ELIQUIS) 2.5 MG tablet Take 2.5 mg by mouth in the morning and 2.5 mg in the evening. 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 03/02/2015 Jaw pain 03/02/2015 Diabetes mellitus 11/25/2013 History of non-Hodgkins lymphoma 11/25/2013 Hypertension 11/25/2013 Status post bone marrow transplant 10/12/2010 Encounters Date Type Department Care Team Description 11/26/2024 Orders Only [facility] [address] [place] [place] [address] Homar Cadet MD Stage 3b chronic kidney disease (HCC); Other acute kidney failure (HCC) from Last [...] Care Team (Late st Contact Info) Description 04/07/2025 2:45 PM EST Office Visit [facility] [address] [place] [place] [address] Homar Cadet MD [address] [facility] [address] [place] [address] Health Maintenance Due Date Last Done Comments [...] Medicare [facility] Care Teams Spanish Tutor Relationship Specialty Start Date End Date Donte Powell MD [address] [place] PCP - General Internal Medicine 05/26/24
--- OUTSIDE RECORDS SUMMARY | 2025-01-25 17:04 | XMS_ITS | Encounter Summary ---
Author Organization [facility] Address [address] [place] [address] Care Team Providers Care Materials Development Engineer Name Role Phone Donte Powell MD Primary Care Provider [phone] Encounter Details Date Type Department Care Team (Late st Contact Info) Description 11/26/2024 Lab Requisition [facility] - Main Lab [address] [facility] [place] [address] Ross Saul MD [address] [place] [address] Chronic systolic (congestive) heart failure [...] Associated Diagnosis Comments COMPLETE BLOOD COUNT Routine 11/29/2024 5:16 AM EDT Chronic systolic (congestive) heart failure (CMS/HCC V24, CMS/HCC V28) 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, CMS/HCC V28) B-TYPE NATRIURETIC PEPTIDE Routine 11/29/2024 5:16 AM EDT Chronic systolic (congestive) heart failure (CMS/HCC V24, CMS/HCC V28) Type 2 diabetes mellitus with diabetic chronic kidney disease ([facility] V24, [facility] V28) COMPREHENSIVE METABOLIC PANEL Routine 11/29/2024 5:16 AM EDT Chronic systolic (congestive) heart failure ([facility] V24, [facility] V28) Type 2 diabetes mellitus with diabetic chronic kidney disease ([facility] V24, [facility] V28) documented in this encounter Results * (ABNORMAL) B-type natriuretic peptide (11/29/2024 5:16 AM EDT) [facility] BNP 1,633(H) <=100 pcg/mL LAB CHEMISTRY METHOD 11/29/2024 11:13 AM EDT [facility] Blood Venous blood specimen / Unknown Venipuncture / Unknown 11/29/2024 5:16 AM EDT 11/29/2024 10:25 AM EDT us Ross Saul MD LAB BLOOD ORDERABLES Final Resu lt [facility] [address] [place] [address], * (ABNORMAL) Complete blood count (11/29/2024 5:16 AM EDT) [facility] WBC 4.5(L) 4.8 - 10.8 K/mcL LAB HEMETOLOGY METHOD 11/29/2024 10:40 AM EDT [facility] RBC 2.50(L) 4.50 - 5.50 M/mcL LAB HEMETOLOGY METHOD 11/29/2024 10:40 AM EDT [facility] Hemoglobin 8.2(L) 13.5 - 17.5 g/dL LAB HEMETOLOGY METHOD 11/29/2024 10:40 AM EDT [facility] Hematocrit 26.6(L) 42.0 - 54.0 % LAB HEMETOLOGY METHOD 11/29/2024 10:40 AM EDT [facility] MCV 106.8(H) 79.0 - 98.0 FL LAB HEMETOLOGY METHOD 11/29/2024 10:40 AM EDT [facility] MCH 32.9(H) 27.0 - 32.0 pcg LAB HEMETOLOGY METHOD 11/29/2024 10:40 AM EDT [facility] MCHC 30.8(L) 32.0 - 37.0 g/dL LAB HEMETOLOGY METHOD 11/29/2024 10:40 AM EDT [facility] RDW 17.2(H) 11.0 - 15.0 % LAB HEMETOLOGY METHOD 11/29/2024 10:40 AM EDT [facility] Platelets 189 130 - 400 K/mcL LAB HEMETOLOGY METHOD 11/29/2024 10:40 AM EDT [facility] MPV 11.4(H) 7.0 - 11.0 FL LAB HEMETOLOGY METHOD 11/29/2024 10:40 AM EDT [facility] NRBC 0.0 <1.0 % LAB HEMETOLOGY METHOD 11/29/2024 10:40 AM EDT [facility] NRBC Absolute 0.00 <0.10 K/mcL LAB HEMETOLOGY METHOD 11/29/2024 10:40 AM EDT [facility] Blood Venous blood specimen / Unknown Venipuncture / Unknown 11/29/2024 5:16 AM EDT 11/29/2024 10:25 AM EDT us Ross Saul MD LAB BLOOD ORDERABLES Final Resu lt [facility] [address] [place] [address], * (ABNORMAL) Comprehensive metabolic panel (11/29/2024 5:16 AM EDT) [facility] Signature Sodium 142 133 - 145 mmol/L LAB CHEMISTRY METHOD 11/29/2024 11:20 AM [facility] Potassium 3.6 3.5 - 5.5 mmol/L LAB CHEMISTRY METHOD 11/29/2024 11:20 AM [facility] Chloride 109 96 - 110 mmol/L LAB CHEMISTRY METHOD 11/29/2024 11:20 AM [facility] CO2 27 21 - 32 mmol/L LAB CHEMISTRY METHOD 11/29/2024 11:20 AM [facility] Anion Gap 6 3 - 11 LAB CHEMISTRY METHOD 11/29/2024 11:20 AM [facility] Glucose 110(H) 70 - 100 mg/dL LAB CHEMISTRY METHOD 11/29/2024 11:20 AM [facility] BUN 12 5 - 25 mg/dL LAB CHEMISTRY METHOD 11/29/2024 11:20 AM [facility] Creatinine 0.83 0.70 - 1.30 mg/dL LAB CHEMISTRY METHOD 11/29/2024 11:20 AM [facility] eGFR 87 >=60 mL/min/1. 73m2 LAB CHEMISTRY METHOD 11/29/2024 11:20 AM [facility] Comment:Calculation based on the Chronic Kidney Disease Epidemiology Collaboration (CKD-EPI) equation refit without adjustment for race. BUN/Creatinine Ratio 14.5 LAB CHEMISTRY METHOD 11/29/2024 11:20 AM [facility] Calcium 7.9(L) 8.5 - 10.5 mg/dL LAB CHEMISTRY METHOD 11/29/2024 11:20 AM [facility] AST (SGOT) 29 10 - 42 unit/L LAB CHEMISTRY METHOD 11/29/2024 11:20 AM [facility] ALT (SGPT) 23 10 - 60 unit/L LAB CHEMISTRY METHOD 11/29/2024 11:20 AM EDT [facility] Alkaline Phosphatase 121 42 - 121 unit/L LAB CHEMISTRY METHOD 11/29/2024 11:20 AM EDT [facility] Total Protein 5.1(L) 6.0 - 8.0 g/dL LAB CHEMISTRY METHOD 11/29/2024 11:20 AM EDT [facility] Albumin 2.1(L) 3.2 - 5.0 g/dL LAB CHEMISTRY METHOD 11/29/2024 11:20 AM EDT [facility] Total Bilirubin 0.3 0.0 - 1.4 mg/dL LAB CHEMISTRY METHOD 11/29/2024 11:20 AM EDT [facility] Blood Venous blood specimen / Unknown Venipuncture / Unknown 11/29/2024 5:16 AM EDT 11/29/2024 10:25 AM EDT us Ross Saul MD LAB BLOOD ORDERABLES Final Resu lt [facility] [address] [place] [address], documented in this encounter Visit Diagnoses Diagnosis Chronic systolic (congestive) heart failure (CMS/HCC V24, [facility] V28) 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, [facility] V28) documented in this encounter Additional Health Concerns Infection Onset Date Last Indicated Resolved Time Norovirus 05/29/2024 05/29/2024 documented as of this encounter Care Teams Materials Development Engineer Relationship Specialty Start Date End Date Donte Powell MD [address] [place] [place] PCP - General Internal Medicine 09/21/18 documented as of this encounter
--- OUTSIDE RECORDS SUMMARY | 2025-01-25 17:04 | XMS_ITS | Encounter Summary ---
Author Organization [facility] Address [address] [place] [address] Care Team Providers Care Fruit Buyer Name Role Phone Donte Powell MD Primary Care Provider [phone] Encounter Details Date Type Department Care Team (Late st Contact Info) Description 12/01/2024 Lab Requisition [facility] - Main Lab [address] [facility] [place] [address] Ross Saul MD [address] [place] [address] Chronic systolic (congestive) heart failure [...] Associated Diagnosis Comments COMPLETE BLOOD COUNT Routine 12/02/2024 4:53 AM EDT Chronic systolic (congestive) heart failure (CMS/HCC V24, CMS/HCC V28) 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, CMS/HCC V28) BASIC METABOLIC PANEL Routine 12/02/2024 4:53 AM EDT Chronic systolic (congestive) heart failure (CMS/HCC V24, CMS/HCC V28) Type 2 diabetes mellitus with diabetic chronic kidney disease ([facility] V24, [facility] V28) documented in this encounter Results * (ABNORMAL) Basic metabolic panel (12/02/2024 4:53 AM EDT) Sodium 141 133 - 145 mmol/L LAB CHEMISTRY METHOD 12/02/2024 9:12 AM [facility] Potassium 3.0(L) 3.5 - 5.5 mmol/L LAB CHEMISTRY METHOD 12/02/2024 9:12 AM [facility] Chloride 108 96 - 110 mmol/L LAB CHEMISTRY METHOD 12/02/2024 9:12 AM [facility] CO2 29 21 - 32 mmol/L LAB CHEMISTRY METHOD 12/02/2024 9:12 AM [facility] Anion Gap 4 3 - 11 LAB CHEMISTRY METHOD 12/02/2024 9:12 AM [facility] Glucose 101(H) 70 - 100 mg/dL LAB CHEMISTRY METHOD 12/02/2024 9:12 AM [facility] BUN 13 5 - 25 mg/dL LAB CHEMISTRY METHOD 12/02/2024 9:12 AM [facility] Creatinine 0.88 0.70 - 1.30 mg/dL LAB CHEMISTRY METHOD 12/02/2024 9:12 AM [facility] eGFR 86 >=60 mL/min/1. 73m2 LAB CHEMISTRY METHOD 12/02/2024 9:12 AM [facility] Comment:Calculation based on the Chronic Kidney Disease Epidemiology Collaboration (CKD-EPI) equation refit without adjustment for race. BUN/Creatinine Ratio 14.8 LAB CHEMISTRY METHOD 12/02/2024 9:12 AM [facility] Calcium 7.7(L) 8.5 - 10.5 mg/dL LAB CHEMISTRY METHOD 12/02/2024 9:12 AM [facility] Blood Venous blood specimen / Unknown Venipuncture / Unknown 12/02/2024 4:53 AM EDT 12/02/2024 8:33 AM EDT Ross Saul MD LAB BLOOD ORDERABLES Final Resu lt [facility] [address] [place] [address], * (ABNORMAL) Complete blood count (12/02/2024 4:53 AM EDT) WBC 4.1(L) 4.8 - 10.8 K/mcL LAB HEMETOLOGY METHOD 12/02/2024 8:43 AM EDT [facility] RBC 2.50(L) 4.50 - 5.50 M/mcL LAB HEMETOLOGY METHOD 12/02/2024 8:43 AM EDT [facility] Hemoglobin 8.1(L) 13.5 - 17.5 g/dL LAB HEMETOLOGY METHOD 12/02/2024 8:43 AM EDT [facility] Hematocrit 26.5(L) 42.0 - 54.0 % LAB [facility]EMETOLOGY [facility] MCV 105.2(H) 79.0 - 98.0 FL LAB HEMETOLOGY METHOD 12/02/2024 8:43 AM EDT [facility] MCH 32.1(H) 27.0 - 32.0 pcg LAB HEMETOLOGY METHOD 12/02/2024 8:43 AM EDT [facility] MCHC 30.6(L) 32.0 - 37.0 g/dL LAB HEMETOLOGY METHOD 12/02/2024 8[facility] RDW 16.8(H) 11.0 - 15.0 % [...] Resu lt [facility] [address] [place] [address], documented in this encounter Visit Diagnoses Diagnosis Chronic systolic (congestive) heart failure (CMS/HCC V24, CMS/HCC V28) 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, CMS/HCC V28) documented in this encounter Additional Health Concerns Infection Onset Date Last Indicated Resolved Time Norovirus 05/29/2024 05/29/2024 documented as of this encounter Care Teams Fruit Buyer Relationship Specialty Start Date End Date Donte Powell MD [address] [place] [address] Dr Rl [place] PCP - General Internal Medicine 09/21/18 documented as of this encounter
--- OUTSIDE RECORDS SUMMARY | 2025-01-25 17:04 | XMS_ITS | Encounter Summary ---
Author Organization [facility] Address [address] [place] [address] Care Team Providers Care Operator Prefinish Name Role Phone Donte Powell MD Primary Care Provider [phone] Encounter Details Date Type Department Care Team (Late st Contact Info) Description 05/29/2024 Lab Requisition [facility] - Main Lab [address] [facility] [place] [address] Ross Saul MD [address] [place] [address] Diarrhea, unspecified Social History Tobacco [...] documented as of this encounter Care Teams Operator Prefinish Relationship Specialty Start Date End Date Donte Powell MD [address] [place] [address] Dr Rl [place] PCP - General Internal Medicine 09/21/18 documented as of this encounter
--- OUTSIDE RECORDS SUMMARY | 2025-01-25 17:04 | XMS_ITS | Encounter Summary ---
Author Organization [facility] Address [address] [place] [address] Care Team Providers Care Critical Care Technician Name Role Phone Donte Powell MD Primary Care Provider [phone] Encounter Details Date Type Department Care Team (Late st Contact Info) Description 11/24/2024 Lab Requisition [facility] - Main Lab [address] [facility] [place] [address] Ross Saul MD [address] [place] [address] Chronic systolic (congestive) heart failure [...] Associated Diagnosis Comments COMPLETE BLOOD COUNT Routine 11/25/2024 7:00 AM EDT Chronic systolic (congestive) heart failure (CMS/HCC V24, CMS/HCC V28) 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, CMS/HCC V28) BASIC METABOLIC PANEL Routine 11/25/2024 7:00 AM EDT Chronic systolic (congestive) heart failure (CMS/HCC V24, CMS/HCC V28) Type 2 diabetes mellitus with diabetic chronic kidney disease ([facility] V24, [facility] V28) documented in this encounter Results * (ABNORMAL) Basic metabolic panel (11/25/2024 7:00 AM EDT) Sodium 142 133 - 145 mmol/L LAB CHEMISTRY METHOD 11/25/2024 8:48 AM [facility] Potassium 3.9 3.5 - 5.5 mmol/L LAB CHEMISTRY METHOD 11/25/2024 8:48 AM [facility] Chloride 111(H) 96 - 110 mmol/L LAB CHEMISTRY METHOD 11/25/2024 8:48 AM [facility] CO2 26 21 - 32 mmol/L LAB CHEMISTRY METHOD 11/25/2024 8:48 AM [facility] Anion Gap 5 3 - 11 LAB CHEMISTRY METHOD 11/25/2024 8:48 AM [facility] Glucose 68(L) 70 - 100 mg/dL LAB CHEMISTRY METHOD 11/25/2024 8:48 AM [facility] BUN 11 5 - 25 mg/dL LAB CHEMISTRY METHOD 11/25/2024 8:48 AM [facility] Creatinine 0.80 0.70 - 1.30 mg/dL LAB CHEMISTRY METHOD 11/25/2024 8:48 AM [facility] eGFR 88 >=60 mL/min/1. 73m2 LAB CHEMISTRY METHOD 11/25/2024 8:48 AM [facility] Comment:Calculation based on the Chronic Kidney Disease Epidemiology Collaboration (CKD-EPI) equation refit without adjustment for race. BUN/Creatinine Ratio 13.8 LAB CHEMISTRY METHOD 11/25/2024 8:48 AM [facility] Calcium 8.0(L) 8.5 - 10.5 mg/dL LAB CHEMISTRY METHOD 11/25/2024 8:48 AM [facility] Blood Venous blood specimen / Unknown Venipuncture / Unknown 11/25/2024 7:00 AM EDT 11/25/2024 8:01 AM EDT Ross Saul MD LAB BLOOD ORDERABLES Final Resu lt [facility] [address] [place] [address], * (ABNORMAL) Complete blood count (11/25/2024 7:00 AM EDT) WBC 5.8 4.8 - 10.8 K/mcL LAB HEMETOLOGY METHOD 11/25/2024 8:24 AM EDT [facility] RBC 2.60(L) 4.50 - 5.50 M/mcL LAB HEMETOLOGY METHOD 11/25/2024 8:24 AM EDT [facility] Hemoglobin 8.1(L) 13.5 - 17.5 g/dL LAB HEMETOLOGY METHOD 11/25/2024 8:24 AM EDT [facility] Hematocrit 26.8(L) 42.0 - 54.0 % LAB HEMETOLOGY METHOD 11/25/2024 8:24 AM EDT [facility] MCV 105.1(H) 79.0 - 98.0 FL LAB HEMETOLOGY METHOD 11/25/2024 8:24 AM EDT [facility] MCH 31.8 27.0 - 32.0 pcg LAB HEMETOLOGY METHOD 11/25/2024 8:24 AM EDT [facility] MCHC 30.2(L) 32.0 - 37.0 g/dL LAB HEMETOLOGY METHOD 11/25/2024 8:24 AM [facility] RDW 17.2(H) 11.0 - 15.0 % LAB HEMETOLOGY METHOD 11/25/2024 8:24 AM EDT [facility] Platelets 221 130 - 400 K/mcL LAB HEMETOLOGY METHOD 11/25/2024 8:24 AM EDT [facility] MPV 10.8 7.0 - 11.0 FL LAB HEMETOLOGY METHOD 11/25/2024 8:24 AM EDT [facility] NRBC 0.0 <1.0 % LAB HEMETOLOGY METHOD 11/25/2024 8:24 AM EDT [facility] NRBC Absolute 0.00 <0.10 K/mcL LAB HEMETOLOGY METHOD 11/25/2024 8:24 AM EDT [facility] Blood Venous blood specimen / Unknown Venipuncture / Unknown 11/25/2024 7:00 AM EDT 11/25/2024 8:01 AM EDT us Ross Saul MD LAB BLOOD ORDERABLES Final Resu lt [facility] [address] [place] [address], documented in this encounter Visit Diagnoses Diagnosis Chronic systolic (congestive) heart failure (CMS/HCC V24, [facility]/HCC V28) 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, [facility] V28) documented in this encounter Additional Health Concerns Infection Onset Date Last Indicated Resolved Time Norovirus 05/29/2024 05/29/2024 documented as of this encounter Care Teams Critical Care Technician Relationship Specialty Start Date End Date Donte Powell MD [address] [place] [address] Dr Rl [place] PCP - General Internal Medicine 09/21/18 documented as of this encounter
--- OUTSIDE RECORDS SUMMARY | 2025-03-17 19:00 | XMS_ITS | Clinical Summary ---
Author Organization Unknown Care Team Providers Care Machine Riveter Name Role Phone SANTOS SANTOS, LANETTE Unavailable Unavailable DEBRA RN, IZABELLA Unavailable Unavailable AMRIT PT, JAMES Unavailable Unavail able ENRIQUE CASH PROCESSING SPECIALIST, MARINO Unavailable Unavailable Payers Payer Name Policy Type Policy Number Effective Date Expira tion Date MEDICARE.NGS.PDGM [id number] Problems Condition Name Condition Details Condition Category Status Onset Date Resolution Date Last Treatment Date Treating Clinician Comments HYP HRT AND CHR KDNY DIS W HRT FAIL AND STG 1-4/UNSP CHR KDNY Active 2024-03 00:00: 00 ACUTE ON CHRONIC SYSTOLIC (CONGESTIVE) HEART FAILURE Active 2024-03 00:00: 00 TYPE 2 DIABETES MELLITUS W DIABETIC CHRONIC KIDNEY DISEASE Active 2024-03 00:00: 00 CHRONIC KIDNEY DISEASE, STAGE 3A Active 2024-03 00:00: 00 ANEMIA IN CHRONIC KIDNEY DISEASE Active 2024-03 00:00: 00 ENCOUNTER FOR OTHER ORTHOPEDIC AFTERCARE Active 2024-03 00:00: 00 LEFT BUNDLE-BRANC H BLOCK, UNSPECIFIED Active 2024-03 00:00: 00 CHRONIC OBSTRUCTIVE PULMONARY DISEASE, UNSPECIFIED Active 2024-03 00:00: 00 TYPE 2 DIABETES W DIABETIC PERIPHERAL ANGIOPATH W/O GANGRENE Active 2024-03 00:00: 00 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, LEFT LEG Active 2024-03 00:00: 00 CARDIOMYOPAT HY IN DISEASES CLASSIFIED ELSEWHERE Active 2024-03 00:00: 00 NONRHEUMATIC AORTIC (VALVE) STENOSIS Active 2024-03 00:00: 00 ATHSCL HEART DISEASE OF [place] CORONARY ARTERY W/O ANG PCTRS Active 2024-03 00:00: 00 PAROXYSMAL ATRIAL FIBRILLATION Active 2024-03 00:00: 00 BENIGN PROSTATIC HYPERPLASIA WITH LOWER URINARY TRACT SYMP Active 2024-03 00:00: 00 OBSTRUCTIVE SLEEP APNEA (ADULT) (PEDIATRIC) Active 2024-03 00:00: 00 SPINAL STENOSIS, LUMBAR REGION 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 Active 2024-03 00:00: 00 FOOT DROP, RIGHT FOOT Active 2024-03 00:00: 00 INSOMNIA, UNSPECIFIED Active 2024-03 00:00: 00 GASTRO-ESOPH AGEAL REFLUX DISEASE WITHOUT ESOPHAGITIS Active 2024-03 00:00: 00 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 Ordering Clinician Indication Dosage Frequency Signature (SIG) Comments Components albuterol sulfate HFA 90 mcg/actuati on aerosol inhaler 07-13 00:00: 00 10-23 23:59 :00 No [id number] SHORTNESS OF BREATH, WHEEZING Per instruc tions EVERY 4 HOURS Per instructio ns EVERY 4 HOURS (route: inhalation ) Med Classific ation: Respirato ry Therapy Agents albuterol sulfate HFA 90 mcg/actuati on aerosol inhaler 07-13 00:00: 00 07-19 00:00 :00 No [id number] Per instruc tions EVERY 4 HOURS NEEDED Per instructio ns EVERY 4 HOURS NEEDED (route: inhalation ) Med Classific ation: Respirato ry Therapy Agents BD Insulin Syringe Ultra-Fine 1 mL 31 gauge x 16 4-18 00:00: 00 07-19 00:00 :00 No [id number] Per instruc tions Per instructio ns (route: miscellane ous) Med Classific ation: Medical Supplies and Durable Medical Equipment (DME) terazosin 5 mg capsule 4-18 00:00: 00 10-23 23:59 :00 No [id number] BPH 1 capsule DAILY 1 capsule DAILY (route: oral) Med Classific ation: Cardiovas cular Therapy Agents Lantus U-100 Insulin 100 unit/mL subcutaneou s solution 4-13 00:00: 00 07-19 00:00 :00 No [id number] Per instruc tions Per instructio ns (route: subcutaneo us) Med Classific ation: Endocrine fenofibrate 54 mg tablet 4-11 00:00: 00 10-23 23:59 :00 No [id number] BPH 2 tablet DAILY 2 tablet DAILY (route: oral) Med Classific ation: Cardiovas cular Therapy Agents atorvastati n 10 mg tablet 2-18 00:00: 00 10-23 23:59 :00 No [id number] HLD 1 tablet BEDTIME 1 tablet BEDTIME (route: oral) Med Classific ation: Cardiovas cular Therapy Agents nifedipine ER 30 mg tablet,exte nded release 2-18 00:00: 00 10-23 23:59 :00 No [id number] HTN 1 tablet DAILY 1 tablet DAILY (route: oral) Med Classific ation: Cardiovas cular Therapy Agents Lantus U-100 Insulin 100 unit/mL subcutaneou s solution 2-15 00:00: 00 10-23 23:59 :00 No [id number] DM 18 unit 2 TIMES DAILY 18 unit 2 TIMES DAILY (route: subcutaneo us) Med Classific ation: Endocrine terazosin 5 mg capsule 2-10 00:00: 00 07-19 00:00 :00 No [id number] Per instruc tions Per instructio ns (route: oral) Med Classific ation: Cardiovas cular Therapy Agents BD Insulin Syringe Ultra-Fine 1 mL 31 gauge x 08/06 2- 00:00: 00 07-19 00:00 :00 No [id number] Per instruc tions Per instructio ns (route: miscellane ous) Med Classific ation: Medical Supplies and Durable Medical Equipment (DME) finasteride 5 mg tablet 04-20 00:00: 00 10-23 23:59 :00 No [id number] BPH 1 tablet DAILY 1 tablet DAILY (route: oral) Med Classific ation: Genitouri nary Therapy Aspirin Low Dose 81 mg tablet,nora yed release 07-19 00:00: 00 10-23 23:59 :00 No [id number] HEART DISEASE 1 tablet DAILY 1 tablet DAILY (route: oral) Med Classific ation: Hematolog ical Agents cholecalcif mary (vitamin D3) 10 mcg (400 unit) capsule 07-19 00:00: 00 10-23 23:59 :00 No [id number] SUPPLEMENT 1 capsule DAILY 1 capsule DAILY (route: oral) Med Classific ation: Electroly te Balance-N utritiona l Products Eliquis 5 mg tablet 07-19 00:00: 00 10-23 23:59 :00 No [id number] AFIB 1 tablet 2 TIMES DAILY 1 tablet 2 TIMES DAILY (route: oral) Med Classific ation: Hematolog ical Agents ferrous fumarate 324 mg (106 mg iron) tablet 07-19 00:00: 00 10-23 23:59 :00 No [id number] SUPPLEMENT 1 tablet DAILY 1 tablet DAILY (route: oral) Med Classific ation: Electroly te Balance-N utritiona l Products insulin lispro (U-100) 100 unit/mL subcutaneou s pen 07-19 00:00: 00 10-23 23:59 :00 No [id number] DM Per instruc tions BEFORE MEALS AND BEDTIME Per instructio ns BEFORE MEALS AND BEDTIME (route: subcutaneo us) Med Classific ation: Endocrine metoprolol tartrate 50 mg tablet 07-19 00:00: 00 07-25 23:59 :00 No [id number] HTN 1 tablet DAILY 1 tablet DAILY (route: oral) Med Classific ation: Cardiovas cular Therapy Agents One-A-Day Trubiotics 2 billion cell capsule 07-19 00:00: 00 10-23 23:59 :00 No [id number] SUPPLEMENT 1 capsule DAILY 1 capsule DAILY (route: oral) Med Classific ation: Gastroint estinal Therapy Agents metoprolol tartrate 25 mg tablet 07-25 00:00: 00 10-23 23:59 :00 No [id number] HTN 12.5 mg 2 TIMES DAILY 12.5 mg 2 TIMES DAILY (route: oral) Med Classific ation: Cardiovas cular Therapy Agents amoxicillin 875 mg-potassiu m clavulanate 125 mg tablet 10-23 00:00: 00 04-27 23:59 :00 No [id number] ABT 1 tablet 2 TIMES DAILY 1 tablet 2 TIMES DAILY (route: oral) Med Classific ation: Anti-Infe ctive Agents terazosin 5 mg capsule 7-11 00:00: 00 10-28 00:00 :00 No [id number] Per instruc tions Per instructio ns (route: oral) Med Classific ation: Cardiovas cular Therapy Agents Advair Diskus 250 mcg-50 mcg/dose powder for inhalation 10-28 00:00: 00 04-27 23:59 :00 No [id number] COPD 1 inhalat ion 3 TIMES DAILY 1 inhalation 3 TIMES DAILY (route: inhalation ) Med Classific ation: Respirato ry Therapy Agents Eliquis 5 mg tablet 10-28 00:00: 00 04-27 23:59 :00 No [id number] ANTICOAGULA TION 1 tablet 2 TIMES DAILY 1 tablet 2 TIMES DAILY (route: oral) Med Classific ation: Hematolog ical Agents fenofibrate 54 mg tablet 10-28 00:00: 00 04-27 23:59 :00 No [id number] PROSTATE 1 tablet DAILY 1 tablet DAILY (route: oral) Med Classific ation: Cardiovas cular Therapy Agents insulin glargine (U-100) 100 unit/mL subcutaneou s solution 10-28 00:00: 00 04-27 23:59 :00 No [id number] DM 18 unit 2 TIMES DAILY 18 unit 2 TIMES DAILY (route: subcutaneo us) Med Classific ation: Endocrine iron 325 mg (65 mg iron) tablet 10-28 00:00: 00 04-27 23:59 :00 No [id number] SUPPLEMENT 1 tablet DAILY 1 tablet DAILY (route: oral) Med Classific ation: Electroly te Balance-N utritiona l Products Lipitor 10 mg tablet 10-28 00:00: 00 04-27 23:59 :00 No [id number] CAD 1 tablet DAILY 1 tablet DAILY (route: oral) Med Classific ation: Cardiovas cular Therapy Agents losartan 50 mg tablet 10-28 00:00: 00 04-27 23:59 :00 No [id number] HTN 1 tablet DAILY 1 tablet DAILY (route: oral) Med Classific ation: Cardiovas cular Therapy Agents terazosin 5 mg capsule 10-28 00:00: 00 04-27 23:59 :00 No [id number] SLEEP 1 capsule DAILY 1 capsule DAILY (route: oral) Med Classific ation: Cardiovas cular Therapy Agents Toprol XL 25 mg tablet,exte nded release 10-28 00:00: 00 04-27 23:59 :00 No [id number] AFIB 0.5 tablet DAILY 0.5 tablet DAILY (route: oral) Med Classific ation: Cardiovas cular Therapy Agents Vitamin D3 25 mcg (1,000 unit) capsule 10-28 00:00: 00 04-27 23:59 :00 No [id number] SUPPLEMENT 1 capsule DAILY 1 capsule DAILY (route: oral) Med Classific ation: Electroly te Balance-N utritiona l Products Advair Diskus 250 mcg-50 mcg/dose powder for inhalation 04-30 00:00: 06-03 13:27 :08 No [id number] SOB 1 inhalat ion 2 TIMES DAILY 1 inhalation 2 TIMES DAILY (route: inhalation ) Med Classific ation: Respirato ry Therapy Agents atorvastati n 40 mg tablet 2 00:00: 06-03 13:27 :08 No [id number] CHOLESTEROL 1 tablet BEDTIME 1 tablet BEDTIME (route: oral) Med Classific ation: Cardiovas cular Therapy Agents D3 DOTS 50 mcg (2,000 unit) tablet 04-30 00:00: 00 06-02 23:59 :00 No [id number] SUPPLEMENT 1 tablet DAILY 1 tablet DAILY (route: oral) Med Classific ation: Electroly te Balance-N utritiona l Products Eliquis 2.5 mg tablet 04-30 00:00: 00 06-02 23:59 :00 No [id number] ATRIAL FIB 1 tablet 2 TIMES DAILY 1 tablet 2 TIMES DAILY (route: oral) Med Classific ation: Hematolog ical Agents fenofibrate 54 mg tablet 04-30 00:00: 00 06-02 23:59 :00 No [id number] CHOLESTEROL 2 tablet DAILY 2 tablet DAILY (route: oral) Med Classific ation: Cardiovas cular Therapy Agents ferrous sulfate 325 mg (65 mg iron) tablet 04-30 00:00: 00 06-03 13:27 :08 No [id number] ANEMIA 1 tablet DAILY 1 tablet DAILY (route: oral) Med Classific ation: Electroly te Balance-N utritiona l Products finasteride 5 mg tablet 04-30 00:00: 00 06-03 13:27 :08 No [id number] BPH 1 tablet DAILY 1 tablet DAILY (route: oral) Med Classific ation: Genitouri nary Therapy insulin glargine (U-100) 100 unit/mL (3 mL) subcutaneou s pen 2 00:00: 00 06-03 13:27 :08 No [id number] DM 18 unit 2 TIMES DAILY 18 unit 2 TIMES DAILY (route: subcutaneo us) Med Classific ation: Endocrine losartan 50 mg tablet 2-07 00:00: 00 06-02 23:59 :00 No [id number] HTN 50 mg DAILY 50 mg DAILY (route: oral) Med Classific ation: Cardiovas cular Therapy Agents metoprolol succinate ER 25 mg tablet,exte nded release 24 hr 2- 00:00: 00 06-02 23:59 :00 No [id number] RATE CONTROL,BP .5 tablet 2 TIMES DAILY .5 tablet 2 TIMES DAILY (route: oral) Med Classific ation: Cardiovas cular Therapy Agents Novolin N FlexPen 100 unit/mL (3 mL) subcutane s insulin pen 2- 00:00: 00 06-02 23:59 :00 No [id number] DM 16 unit DAILY 16 unit DAILY (route: [facility]) Med Classific ation: Endocrine Novolog FlexPen U-100 Insulin aspart 100 unit/mL (3 mL) subcutaneou s 04-30 00:00: 00 06-02 23:59 :00 No [id number] DM 9 unit DAILY 9 unit DAILY ([facility] Med Classific ation: Endocrine Novolog FlexPen U-100 Insulin aspart 100 unit/mL (3 mL) subcutaneou s 2 00:00: 00 06-02 23:59 :00 No [id number] DM 11 unit DAILY 11 unit DAILY ([facility] Med Classific ation: Endocrine terazosin 5 mg capsule 2- 00:00: 00 06-02 23:59 :00 No [id number] BPH 1 capsule BEDTIME 1 capsule BEDTIME (route: oral) Med Classific ation: Cardiovas cular Therapy Agents carboxymeth ylcellulose sodium 0.5 % eye drops 2- 00:00: 00 06-02 23:59 :00 No [id number] DRY EYES 1 drops 2 TIMES DAILY 1 drops 2 TIMES DAILY (route: ophthalmic (eye)) Med Classific ation: Ophthalmi c Agents ICaps AREDS 4,296 mcg-226 mg-90 mg capsule 04-30 00:00: 00 06-02 23:59 :00 No [id number] EYE HEALTH 1 capsule DAILY 1 capsule DAILY (route: oral) Med Classific ation: Electroly te Balance-N utritiona l Products Jardiance 25 mg tablet 04-30 00:00: 00 05-12 23:59 :00 No [id number] DM 1 tablet DAILY 1 tablet DAILY (route: oral) Med Classific ation: Endocrine Lasix 40 mg tablet 05-09 00:00: 00 06-02 23:59 :00 No [id number] CHF 1 tablet DAILY 1 tablet DAILY (route: oral) Med Classific ation: Cardiovas cular Therapy Agents Jardiance 10 mg tablet 05-12 00:00: 00 06-02 23:59 :00 No [id number] DIABETES 0.5 tablet DAILY 0.5 tablet DAILY (route: oral) Med Classific ation: Endocrine fenofibrate 54 mg tablet 05-19 00:00: 00 06-10 00:00 :00 No [id number] Per instruc tions Per instructio ns (route: oral) Med Classific ation: Cardiovas cular Therapy Agents acetaminoph en 500 mg tablet 06-10 00:00: 00 09-22 00:00 :00 No [id number] PAIN 2 tablet EVERY 8 HOURS 2 tablet EVERY 8 HOURS (route: oral) Med Classific ation: Analgesic , Anti-infl ammatory or Antipyret ic Afrin (oxymetazol ine) 0.05 % nasal spray 06-10 00:00: 00 09-22 00:00 :00 No [id number] NOSEBLEEDS 2 spray EVERY 4 HOURS 2 spray EVERY 4 HOURS (route: nasal) Med Classific ation: Respirato ry Therapy Agents albuterol sulfate HFA 90 mcg/actuati on aerosol inhaler 06-10 00:00: 00 09-22 00:00 :00 No [id number] SHORTNESS OF BREATH 2 puff EVERY 6 HOURS 2 puff EVERY 6 HOURS (route: inhalation ) Med Classific ation: Respirato ry Therapy Agents amiodarone 200 mg tablet 06-10 00:00: 00 09-22 00:00 :00 No [id number] IRREGULAR HEART BEAT 1 tablet DAILY 1 tablet DAILY (route: oral) Med Classific ation: Cardiovas cular Therapy Agents aspirin 81 mg tablet,nora yed release 06-10 00:00: 00 09-22 00:00 :00 No [id number] HIGH LIPIDS 1 tablet DAILY 1 tablet DAILY (route: oral) Med Classific ation: Hematolog ical Agents betamethaso ne dipropionat e 0.05 % topical cream 06-10 00:00: 00 09-22 00:00 :00 No [id number] PSORIASIS FLARE 3 inch 2 TIMES DAILY 3 inch 2 TIMES DAILY (route: topical) Med Classific ation: Dermatolo gical Eliquis 2.5 mg tablet 06-10 00:00: 00 09-22 00:00 :00 No [id number] IRREGULAR HEART BEAT 1 tablet EVERY 12 HOURS 1 tablet EVERY 12 HOURS (route: oral) Med Classific ation: Hematolog ical Agents fenofibrate 54 mg tablet 06-10 00:00: 00 09-22 00:00 :00 No [id number] HIGH LIPIDS 2 tablet EVERY AM 2 tablet EVERY AM (route: oral) Med Classific ation: Cardiovas cular Therapy Agents ferrous sulfate 325 mg (65 mg iron) tablet 06-10 00:00: 00 09-22 00:00 :00 No [id number] ANEMIA 1 tablet EVERY 48 HOURS 1 tablet EVERY 48 HOURS (route: oral) Med Classific ation: Electroly te Balance-N utritiona l Products finasteride 5 mg tablet 06-10 00:00: 00 09-22 00:00 :00 No [id number] ENLARGED PROSTATE 1 tablet BEDTIME 1 tablet BEDTIME (route: oral) Med Classific ation: Genitouri nary Therapy Jardiance 25 mg tablet 06-10 00:00: 00 09-22 00:00 :00 No [id number] DIABETES 1 tablet DAILY 1 tablet DAILY (route: oral) Med Classific ation: Endocrine Lantus Solostar U-100 Insulin 100 unit/mL (3 mL) [facility] s pen 06-10 00:00: 00 09-22 00:00 :00 No [id number] DIABETES 8 unit 2 TIMES DAILY 8 unit 2 TIMES DAILY (route: [facility]) Med Classific ation: Endocrine metoprolol succinate ER 25 mg tablet,exte nded release 24 hr 06-10 00:00: 00 09-22 00:00 :00 No [id number] IRREGULAR HEART BEAT 0.5 tablet 2 TIMES DAILY 0.5 tablet 2 TIMES DAILY (route: oral) Med Classific ation: Cardiovas cular Therapy Agents Miralax 17 gram/dose oral powder 06-10 00:00: 00 09-22 00:00 :00 No [id number] CONSTIPATIO N 17 gram DAILY 17 gram DAILY (route: oral) Med Classific ation: Gastroint estinal Therapy Agents Novolog FlexPen U-100 Insulin aspart 100 unit/mL (3 mL) [facility] s 06-10 00:00: 00 09-22 00:00 :00 No [id number] DIABETES 2 unit BEFORE DINNER 2 unit BEFORE DINNER (route: [facility]) Med Classific ation: Endocrine Novolog FlexPen U-100 Insulin aspart 100 unit/mL (3 mL) [facility] s 06-10 00:00: 00 09-22 00:00 :00 No [id number] DIABETES 4 unit BEFORE LUNCH 4 unit BEFORE LUNCH (route: [facility]) Med Classific ation: Endocrine Novolog FlexPen U-100 Insulin aspart 100 unit/mL (3 mL) [facility] s 06-10 00:00: 00 09-22 00:00 :00 No [id number] DIABETES 4 unit BEFORE BREAKFAST 4 unit BEFORE BREAKFAST (route: [facility]) Med Classific ation: Endocrine oxycodone 5 mg tablet 06-10 00:00: 00 09-22 00:00 :00 No [id number] SEVERE PAIN 1 tablet EVERY 4 HOURS 1 tablet EVERY 4 HOURS (route: oral) Med Classific ation: Analgesic , Anti-infl ammatory or Antipyret ic terazosin 5 mg capsule 06-10 00:00: 00 09-22 00:00 :00 No [id number] ENLARGED PROSTATE 1 capsule BEDTIME 1 capsule BEDTIME (route: oral) Med Classific ation: Cardiovas cular Therapy Agents Wixela Inhub 250 mcg-50 mcg/dose powder for inhalation 06-10 00:00: 00 09-22 00:00 :00 No [id number] COPD 1 inhalat ion DAILY 1 inhalation DAILY (route: inhalation ) Med Classific ation: Respirato ry Therapy Agents amoxicillin 875 mg-potassiu m clavulanate 125 mg tablet 06-16 00:00: 00 06-26 23:59 :00 No [id number] INFE 1 tablet 2 TIMES DAILY 1 tablet 2 TIMES DAILY (route: oral) Med Classific ation: Anti-Infe ctive Agents albuterol sulfate HFA 90 mcg/actuati on aerosol inhaler 09-21 00:00: 00 Yes [id number] SHORTNESS OF BREATH, WHEEZING 2 puff EVERY 6 HOURS 2 puff EVERY 6 HOURS (route: inhalation ) Med Classific ation: Respirato ry Therapy Agents amiodarone 200 mg tablet 09-21 00:00: 00 12-03 23:59 :00 No [id number] IRREGULAR HEART BEAT 1 tablet DAILY 1 tablet DAILY (route: oral) Med Classific ation: Cardiovas cular Therapy Agents atorvastati n 40 mg tablet 09-21 00:00: 00 01-18 00:00 :00 No [id number] HIGH LIPIDS 1 tablet BEDTIME 1 tablet BEDTIME (route: oral) Med Classific ation: Cardiovas cular Therapy Agents betamethaso ne dipropionat e 0.05 % lotion 09-21 00:00: 00 12-03 23:59 :00 No [id number] RASH 3 mL 2 TIMES DAILY 3 mL 2 TIMES DAILY (route: topical) Med Classific ation: Dermatolo gical cyanocobala min (vit B-12) 1,000 mcg tablet 09-21 00:00: 00 01-18 00:00 :00 No [id number] SUPPLEMENT 1 tablet DAILY 1 tablet DAILY (route: oral) Med Classific ation: Electroly te Balance-N utritiona l Products doxycycline hyclate 100 mg tablet 09-21 00:00: 00 09-22 23:59 :00 No [id number] PNEUMONIA 1 tablet EVERY 12 HOURS 1 tablet EVERY 12 HOURS (route: oral) Med Classific ation: Anti-Infe ctive Agents Eliquis 2.5 mg tablet 09-21 00:00: 00 01-18 00:00 :00 No [id number] IRREGULAR HEART BEAT- CLOT PREVENTION 1 tablet EVERY 12 HOURS 1 tablet EVERY 12 HOURS (route: oral) Med Classific ation: Hematolog ical Agents ferrous sulfate 325 mg (65 mg iron) tablet 09-21 00:00: 00 01-18 00:00 :00 No [id number] ANEMIA 1 tablet DAILY 1 tablet DAILY (route: oral) Med Classific ation: Electroly te Balance-N utritiona l Products finasteride 5 mg tablet 09-21 00:00: 00 01-18 00:00 :00 No [id number] URINARY RETENTION 1 tablet BEDTIME 1 tablet BEDTIME (route: oral) Med Classific ation: Genitouri nary Therapy fluticasone 250 mcg-[place] rol 50 mcg/dose blistr powdr for inhalation 09-21 00:00: 00 01-18 00:00 :00 No [id number] TROUBLE BREATHING 1 inhalat ion 2 TIMES DAILY 1 inhalation 2 TIMES DAILY (route: inhalation ) Med Classific ation: Respirato ry Therapy Agents furosemide 40 mg tablet 09-23 00:00: 00 12-03 23:59 :00 No [id number] WATER WEIGHT 1 tablet DAILY 1 tablet DAILY (route: oral) Med Classific ation: Cardiovas cular Therapy Agents Jardiance 25 mg tablet 09-21 00:00: 00 Yes [id number] DIABETES 1 tablet DAILY 1 tablet DAILY (route: oral) Med Classific ation: Endocrine metoprolol succinate ER 25 mg tablet,exte nded release 24 hr 09-21 00:00: 00 12-03 23:59 :00 No [id number] IRREGULAR HEART BEAT 0.5 tablet 2 TIMES DAILY 0.5 tablet 2 TIMES DAILY (route: oral) Med Classific ation: Cardiovas cular Therapy Agents Novolin 70-30 FlexPen U-100 Insulin 100 unit/mL (70-30) subcutaneou s 09-21 00:00: 00 12-03 23:59 :00 No [id number] DIABETES 11 unit BEFORE DINNER 11 unit BEFORE DINNER ([facility] Med Classific ation: Endocrine Novolin N FlexPen 100 unit/mL (3 mL) [facility] s insulin pen 09-21 00:00: 00 12-03 23:59 :00 No [id number] DIABETES 16 unit EVERY AM 16 unit EVERY AM (route: subcutaneo us) Med Classific ation: Endocrine Novolog FlexPen U-100 Insulin aspart 100 unit/mL (3 mL) [facility] 09-[facility] 00:00: 00 12-03 23:59 :00 No [id number] DIABETES 9 unit BEFORE LUNCH 9 unit BEFORE LUNCH (route: [facility]) Med Classific ation: Endocrine prednisone 20 mg tablet 09-21 00:00: 00 09-23 23:59 :00 No [id number] PNEUMONIA 2 tablet DAILY 2 tablet DAILY (route: oral) Med Classific ation: Endocrine Refresh Optive 0.5 %-0.9 % eye drops 09-21 00:00: 00 01-18 00:00 :00 No [id number] DRY EYES 1 drops 2 TIMES DAILY 1 drops 2 TIMES DAILY (route: ophthalmic (eye)) Med Classific ation: Ophthalmi c Agents terazosin 5 mg capsule 09-21 00:00: 00 Yes [id number] ENLARGED PROSTATE 1 capsule BEDTIME 1 capsule BEDTIME (route: oral) Med Classific ation: Cardiovas cular Therapy Agents carvedilol 3.125 mg tablet 12-03 00:00: 00 Yes [id number] HTN 1 tablet 2 TIMES DAILY 1 tablet 2 TIMES DAILY (route: oral) Med Classific ation: Cardiovas cular Therapy Agents insulin aspar prot-insuli n aspart 100 unit/mL (70-30) subcutaneou s pen 12-03 00:00: 00 Yes [id number] DM2 2 unit 3 TIMES DAILY 2 unit 3 TIMES DAILY [facility] Med Classific ation: Endocrine insulin aspar prot-insuli n aspart 100 unit/mL (70-30) subcutaneou s pen 12-03 00:00: 00 01-18 00:00 :00 No [id number] DM2 4 unit 3 TIMES DAILY 4 unit 3 TIMES DAILY (route: [facility]) Med Classific ation: Endocrine insulin aspar prot-insuli n aspart 100 unit/mL (70-30) subcutaneou s pen 12-03 00:00: 00 01-18 00:00 :00 No [id number] DM2 6 unit 3 TIMES DAILY 6 unit 3 TIMES DAILY (route: [facility]) Med Classific ation: Endocrine insulin aspar prot-insuli n aspart 100 unit/mL (70-30) subcutaneou s pen 12-03 00:00: 00 01-18 00:00 :00 No [id number] DM2 8 unit 3 TIMES DAILY 8 unit 3 TIMES DAILY (route: [facility]) Med Classific ation: Endocrine Lasix 20 mg tablet 12-03 00:00: 00 01-18 00:00 :00 No [id number] CHF 1 tablet 2 TIMES DAILY 1 tablet 2 TIMES DAILY (route: oral) Med Classific ation: Cardiovas cular Therapy Agents oxycodone 5 mg tablet 12-03 00:00: 00 Yes [id number] PAIN 1 tablet EVERY 4 HOURS 1 tablet EVERY 4 HOURS (route: oral) Med Classific ation: Analgesic , Anti-infl ammatory or Antipyret ic trazodone 50 mg tablet 12-03 00:00: 00 01-18 00:00 :00 No [id number] INSOMNIA 1 tablet DAILY 1 tablet DAILY (route: oral) Med Classific ation: Central Nervous System Agents Tylenol Extra Strength 500 mg tablet 12-03 00:00: 00 Yes [id number] OPAIN 2 tablet 3 TIMES DAILY 2 tablet 3 TIMES DAILY (route: oral) Med Classific ation: Analgesic , Anti-infl ammatory or Antipyret ic BETAMETHASO NE DIPROPIONAT E TOPICAL 2016-03 00:00: 00 04-03 09:59 :21 No 0.05 % 0.05 % (route: ) Med Classific ation: DERMATOLO GICAL TAMSULOSIN ORAL 10-30 00:00: 00 04-03 10:04 :12 No 0.4 [...] ICAL AGENTS PREDNISONE ORAL 04-02 00:00: 00 04-08 00:00 :00 No 20 mg1 tab DAILY 20 mg1 tab DAILY (route: ) Med Classific ation: ENDOCRINE PACERONE ORAL 2016-03 00:00: 00 04-03 09:57 :41 No 200 mg 200 mg (route: ) Med Classific ation: CARDIOVAS CULAR THERAPY AGENTS DOXYCYCLINE HYCLATE ORAL 04-02 00:00: 00 04-17 00:00 :00 No 100 mg1 tab 2 TIMES DAILY 100 mg1 tab 2 TIMES DAILY (route: ) Med Classific ation: ANTI-INFE CTIVE AGENTS NIFEDIPINE ORAL 2016-03 00:00: 00 04-03 10:04 :07 No 30 mg 30 mg (route: ) Med Classific ation: CARDIOVAS CULAR THERAPY AGENTS GLIPIZIDE ORAL 2016-0305 00:00: 00 04-10 00:00 :00 No 10 [...] Observation Time Observation Value Commen ts Temperature 2025-01-18 14:27:00.000 98.1 [degF] BMI (%) 2025-01-18 12:42:22.000 25 kg/m2 Height 2025-01-18 12:42:17.000 66 [in_us] Pulse 2025-01-18 14:27:00.000 83 /min O2 Saturation (%) 2025-01-18 14:27:00.000 100 % Respirations 2025-01-18 14:27:00.000 16 /min Weight (lbs) 2025-01-18 12:42:22.000 159 [lb_av] Systolic Blood Pressure 2025-01-18 14:27:00.000 134 mm [Hg] Diastolic Blood Pressure 2025-01-18 14:27:00.000 78 mm [Hg] Plan of Treatment Planned Activity Planned Date Details Comments Future Scheduled Test PHYSICAL T HERAPIST TO EVALUATE FOR SAFETY AND STRENGTHENING [code = PHYSICAL THERAPIST TO EVALUATE FOR SAFETY AND STRENGTHENING] Future Scheduled Test OCCUPATION AL THERAPIST TO EVALUATE FOR SAFETY WITH ADLS AND IADLS [code = OCCUPATIONAL THERAPIST TO EVALUATE FOR SAFETY WITH ADLS AND IADLS] Future Scheduled Test FALL REDUC TION MANAGEMENT; RN TO ASSESS AND OBSERVE, INDUSTRIAL ROBOTICS MECHANIC/BARBER STYLIST TO OBSERVE FALL RISK FACTORS AND EDUCATE PATIENT/CAREGIVER ON STRATEGIES TO MINIMIZE THE RISK OF FALLING. [code = FALL REDUCTION MANAGEMENT; RN TO ASSESS AND OBSERVE, INDUSTRIAL ROBOTICS MECHANIC/BARBER STYLIST TO OBSERVE FALL RISK FACTORS AND EDUCATE PATIENT/CAREGIVER ON STRATEGIES TO MINIMIZE THE RISK OF FALLING.] Future Scheduled Test DIABETES M ANAGEMENT; RN TO ASSESS AND TEACH, BARBER STYLIST/INDUSTRIAL ROBOTICS MECHANIC TO OBSERVE AND TEACH INSTRUCTIONS OF DIABETIC CARE TO INCLUDE: DIET SKIN CARE, SIGNS AND SYMPTOMS OF HYPO/HYPERGLYCEMIA, PROPER ADMINISTRATION OF DIABETIC MEDICATION. RN/BARBER STYLIST/INDUSTRIAL ROBOTICS MECHANIC TO INSTRUCT ON DIABETIC FOOT CARE AND MONITOR FOR SKIN LESIONS ON LOWER EXTREMITIES. BLOOD GLUCOSE TESTING 3X A DAY FREQ. RN TO ASSESS AND TEACH, BARBER STYLIST/INDUSTRIAL ROBOTICS MECHANIC TO OBSERVE AND TEACH PATIENT/CAREGIVER ABILITY TO PERFORM AND RECORD BLOOD GLUCOSE TESTING ORDERED AND TO REPORT ABNORMAL FINDINGS TO PHYSICIAN. RN/BARBER STYLIST/INDUSTRIAL ROBOTICS MECHANIC MAY PERFORM BLOOD GLUCOSE TEST NEEDED. RN/BARBER STYLIST/INDUSTRIAL ROBOTICS MECHANIC TO REPORT TO PHYSICIAN BLOOD GLUCOSE READINGS GREATER THAN 60 OR LESS THAN 350. RN/BARBER STYLIST/INDUSTRIAL ROBOTICS MECHANIC TO INSTRUCT PATIENT ON IMPORTANCE OF HGBA1C MONITORING, KIDNEY FUNCTION TEST, EYE AND FOOT EXAMS. [code = DIABETES MANAGEMENT; RN TO ASSESS AND TEACH, BARBER STYLIST/INDUSTRIAL ROBOTICS MECHANIC TO OBSERVE AND TEACH INSTRUCTIONS OF DIABETIC CARE TO INCLUDE: DIET SKIN CARE, SIGNS AND SYMPTOMS OF HYPO/HYPERGLYCEMIA, PROPER ADMINISTRATION OF DIABETIC MEDICATION. RN/BARBER STYLIST/INDUSTRIAL ROBOTICS MECHANIC TO INSTRUCT ON DIABETIC FOOT CARE AND MONITOR FOR SKIN LESIONS ON LOWER EXTREMITIES. BLOOD GLUCOSE TESTING 3X A DAY FREQ. RN TO ASSESS AND TEACH, BARBER STYLIST/INDUSTRIAL ROBOTICS MECHANIC TO OBSERVE AND TEACH PATIENT/CAREGIVER ABILITY TO PERFORM AND RECORD BLOOD GLUCOSE TESTING ORDERED AND TO REPORT ABNORMAL FINDINGS TO PHYSICIAN. RN/BARBER STYLIST/INDUSTRIAL ROBOTICS MECHANIC MAY PERFORM BLOOD GLUCOSE TEST NEEDED. RN/BARBER STYLIST/INDUSTRIAL ROBOTICS MECHANIC TO REPORT TO PHYSICIAN BLOOD GLUCOSE READINGS GREATER THAN 60 OR LESS THAN 350. RN/BARBER STYLIST/INDUSTRIAL ROBOTICS MECHANIC TO INSTRUCT PATIENT ON IMPORTANCE OF HGBA1C MONITORING, KIDNEY FUNCTION TEST, EYE AND FOOT EXAMS.] Future Scheduled Test RN TO OBSE RVE, ASSESS, EVALUATE, AND DEVELOP AN INDIVIDUALIZED PLAN OF CARE. AGENCY MAY ACCEPT ORDERS FROM CONSULTING PHYSICIANS. RN TO OBSERVE AND ASSESS, INDUSTRIAL ROBOTICS MECHANIC/BARBER STYLIST TO OBSERVE FOR RISK FOR FALLS AND INSTRUCT IN FALL PREVENTION, HOME SAFETY, MEDICATION MANAGEMENT, INFECTION PREVENTION, AND NUTRITION MANAGEMENT. RN/INDUSTRIAL ROBOTICS MECHANIC/BARBER STYLIST NURSE MAY PERFORM O2 SATURATION LEVEL ON ADMISSION AND PRN FOR RN TO ASSESS/INDUSTRIAL ROBOTICS MECHANIC TO OBSERVE PATIENT, WITH NOTIFICATION TO THE PHYSICIAN IF SATURATION IS 90% IN THE ABSENCE OF MORE SPECIFIC PARAMETERS FROM THE PHYSICIAN. AGENCY MAY PERFORM A RESUMPTION OF CARE VISIT FOLLOWING ANY HOSPITAL ADMISSION. RN/INDUSTRIAL ROBOTICS MECHANIC/BARBER STYLIST TO MONITOR CO-MORBID CONDITIONS LISTED ON THE PLAN OF CARE AND ANY NEW CONDITIONS THAT PRESENT THEMSELVES DURING THIS EPISODE TO IDENTIFY CHANGES AND INTERVENE TO MINIMIZE COMPLICATIONS. [code = RN TO OBSERVE, ASSESS, EVALUATE, AND DEVELOP AN INDIVIDUALIZED PLAN OF CARE. AGENCY MAY ACCEPT ORDERS FROM CONSULTING PHYSICIANS. RN TO OBSERVE AND ASSESS, INDUSTRIAL ROBOTICS MECHANIC/BARBER STYLIST TO OBSERVE FOR RISK FOR FALLS AND INSTRUCT IN FALL PREVENTION, HOME SAFETY, MEDICATION MANAGEMENT, INFECTION PREVENTION, AND NUTRITION MANAGEMENT. RN/INDUSTRIAL ROBOTICS MECHANIC/BARBER STYLIST NURSE MAY PERFORM O2 SATURATION LEVEL ON ADMISSION AND PRN FOR RN TO ASSESS/INDUSTRIAL ROBOTICS MECHANIC TO OBSERVE PATIENT, WITH NOTIFICATION TO THE PHYSICIAN IF SATURATION IS 90% IN THE ABSENCE OF MORE SPECIFIC PARAMETERS FROM THE PHYSICIAN. AGENCY MAY PERFORM A RESUMPTION OF CARE VISIT FOLLOWING ANY HOSPITAL ADMISSION. RN/INDUSTRIAL ROBOTICS MECHANIC/BARBER STYLIST TO MONITOR CO-MORBID CONDITIONS LISTED ON THE PLAN OF CARE AND ANY NEW CONDITIONS THAT PRESENT THEMSELVES DURING THIS EPISODE TO IDENTIFY CHANGES AND INTERVENE TO MINIMIZE COMPLICATIONS.] Future Scheduled Test PAIN MANAG EMENT; RN TO ASSESS AND TEACH, BARBER STYLIST/INDUSTRIAL ROBOTICS MECHANIC TO OBSERVE AND TEACH AND PROVIDE EDUCATION ON PAIN MANAGEMENT TECHNIQUES. [code = PAIN MANAGEMENT; RN TO ASSESS AND TEACH, BARBER STYLIST/INDUSTRIAL ROBOTICS MECHANIC TO OBSERVE AND TEACH AND PROVIDE EDUCATION ON PAIN MANAGEMENT TECHNIQUES.] Future Scheduled Test RISK FOR H OSPITALIZATION; RN TO ASSESS/TEACH, BARBER STYLIST/INDUSTRIAL ROBOTICS MECHANIC TO OBSERVE/TEACH PATIENT/CAREGIVER ON RISK FOR HOSPITALIZATION/EMERGENCY ROOM VISITS, TEACH SIGNS AND SYMPTOMS THAT PUT PATIENT AT RISK, WHEN TO NOTIFY NURSE/PHYSICIAN OF COMPLICATIONS/DECLINE, AND WHEN TO CALL 911. [code = RISK FOR HOSPITALIZATION; RN TO ASSESS/TEACH, BARBER STYLIST/INDUSTRIAL ROBOTICS MECHANIC TO OBSERVE/TEACH PATIENT/CAREGIVER ON RISK FOR HOSPITALIZATION/EMERGENCY ROOM VISITS, TEACH SIGNS AND SYMPTOMS THAT PUT PATIENT AT RISK, WHEN TO NOTIFY NURSE/PHYSICIAN OF COMPLICATIONS/DECLINE, AND WHEN TO CALL 911.] Future Scheduled Test CARDIOVASC ULAR SYSTEM; RN TO ASSESS/TEACH, INDUSTRIAL ROBOTICS MECHANIC/BARBER STYLIST TO OBSERVE/TEACH RELATED TO ALTERED CARDIOVASCULAR STATUS TO MINIMIZE COMPLICATIONS AND REDUCE HOSPITALIZATION. [code = CARDIOVASCULAR SYSTEM; RN TO ASSESS/TEACH, INDUSTRIAL ROBOTICS MECHANIC/BARBER STYLIST TO OBSERVE/TEACH RELATED TO ALTERED CARDIOVASCULAR STATUS TO MINIMIZE COMPLICATIONS AND REDUCE HOSPITALIZATION.] Future Scheduled Test HEART FAIL URE; RN TO ASSESS/TEACH, INDUSTRIAL ROBOTICS MECHANIC/BARBER STYLIST TO OBSERVE/TEACH CARDIOPULMONARY SYSTEM TO IDENTIFY SIGNS [...] [code = HEART FAILURE; RN TO ASSESS/TEACH, INDUSTRIAL ROBOTICS MECHANIC/BARBER STYLIST TO OBSERVE/TEACH CARDIOPULMONARY SYSTEM TO IDENTIFY SIGNS [...] INTEG RITY RN TO ASSESS AND TEACH, INDUSTRIAL ROBOTICS MECHANIC/BARBER STYLIST TO OBSERVE AND TEACH INTEGUMENTARY STATUS TO IDENTIFY CHANGES AND INTERVENE TO MINIMIZE COMPLICATIONS. PROVIDE SKILLED TEACHING OF GENERAL WOUND AND SKIN CARE AND PREVENTION RELATED TO POTENTIAL FOR OR ACTUAL ALTERED SKIN INTEGRITY [code = SKIN INTEGRITY RN TO ASSESS AND TEACH, INDUSTRIAL ROBOTICS MECHANIC/BARBER STYLIST TO OBSERVE AND TEACH INTEGUMENTARY STATUS TO IDENTIFY CHANGES AND INTERVENE TO MINIMIZE COMPLICATIONS. PROVIDE SKILLED TEACHING OF GENERAL WOUND AND SKIN CARE AND PREVENTION RELATED TO POTENTIAL FOR OR ACTUAL ALTERED SKIN INTEGRITY] Future Scheduled Test MEDICATION MANAGEMENT; RN/INDUSTRIAL ROBOTICS MECHANIC/BARBER STYLIST TO REVIEW MEDICATIONS FOR INTERACTIONS, EFFECTIVENESS OF DRUG THERAPY, AND SIGNS/SYMPTOMS OF ADVERSE REACTIONS. MAY INSTRUCT AND REINFORCE MEDICATION TEACHING RELATED TO THE USE OF MEDICATIONS, DOSAGE, FREQUENCY, PURPOSE, SIDE EFFECTS, AND TO REPORT COMPLICATIONS. [code = MEDICATION MANAGEMENT; RN/INDUSTRIAL ROBOTICS MECHANIC/BARBER STYLIST TO REVIEW MEDICATIONS FOR INTERACTIONS, EFFECTIVENESS OF DRUG THERAPY, AND SIGNS/SYMPTOMS OF ADVERSE REACTIONS. MAY INSTRUCT AND REINFORCE MEDICATION TEACHING RELATED TO THE USE OF MEDICATIONS, DOSAGE, FREQUENCY, PURPOSE, SIDE EFFECTS, AND TO REPORT COMPLICATIONS.] Future Scheduled Test RN TO ASSE SS/TEACH, INDUSTRIAL ROBOTICS MECHANIC/BARBER STYLIST TO OBSERVE/TEACH SURGICAL AFTERCARE MANAGEMENT TO AVOID HOSPITALIZATION. [code = RN TO ASSESS/TEACH, INDUSTRIAL ROBOTICS MECHANIC/BARBER STYLIST TO OBSERVE/TEACH SURGICAL AFTERCARE MANAGEMENT TO AVOID HOSPITALIZATION.] Goal Patient Goal - GET THE PAIN BETTER. Goal Provider Goal - Goal Provider Goal - Goal Provider Goal - PATIENT/CAREGIVER WILL VERBALIZE/DEMONSTRATE UNDERSTANDING OF FALL RISK FACTORS AND IMPLEMENT STRATEGIES TO MINIMIZE FALL RISK. PATIENT/CAREGIVER WILL VERBALIZE/DEMONSTRATE AN ABILITY TO ADHERE TO FALL REDUCTION SELF-MANAGEMENT AND LIFE-STYLE CHANGES BY END OF EPISODE Goal Provider Goal - PATIENT / CAREGIVER WILL VERBALIZE / DEMONSTRATE AN ABILITY TO ADHERE TO SELF-MANAGEMENT OF DIABETES MANAGEMENT BY END OF EPISODE. Goal Provider Goal - A PLAN OF CARE WILL BE ESTABLISHED THAT MEETS THE PATIENT S NEEDS. PATIENT WILL DEMONSTRATE OXYGEN SATURATION WITHIN NORMAL LIMITS OR PATIENT S OPTIMAL LEVEL ESTABLISHED BY THE PHYSICIAN THROUGHOUT CARE. CHANGES TO CO-MORBID CONDITIONS AND ANY NEW CONDITIONS WILL BE IDENTIFIED AND REPORTED TO THE PHYSICIAN. Goal Provider Goal - PATIENT / CAREGIVER WILL VERBALIZE / DEMONSTRATE UNDERSTANDING OF PAIN CONTROL MEASURES BY END OF EPISODE Goal Provider Goal - PATIENT/CAREGIVER WILL VERBALIZE UNDERSTANDING OF SIGNS AND SYMPTOMS THAT PUT THE PATIENT AT RISK FOR HOSPITALIZATION /EMERGENCY ROOM VISITS, WHEN TO NOTIFY NURSE/PHYSICIAN OF COMPLICATIONS/DECLINE AND WHEN TO CALL 911. Goal Provider Goal - PATIENT / CAREGIVER WILL VERBALIZE/DEMONSTRATE UNDERSTANDING OF MEASURES TO MANAGE ALTERED CARDIOVASCULAR STATUS BY END OF EPISODE Goal Provider Goal - PATIENT / CAREGIVER [...] INJURY BY EOE Goal Provider Goal - PATIENT/CAREGIVER TO VERBALIZE, AND CONSISTENTLY DEMONSTRATE EFFECTIVE, SAFE MANAGEMENT OF MEDICATION INCLUDING KNOWLEDGE OF EFFECTIVENESS, POTENTIAL SIDE EFFECTS AND DRUG REACTIONS AND WHEN TO CONTACT THE APPROPRIATE CARE PROVIDER. PATIENT/CAREGIVER WILL BE ABLE TO VERBALIZE UNDERSTANDING OF MEDICATION REGIMEN AND ACCURATELY TAKE MEDICATIONS PRESCRIBED WITHOUT ADVERSE EFFECTS BY END OF EPISODE Goal Provider Goal - PATIENT/CAREGIVER WILL VERBALIZE/DEMONSTRATE POSTOPERATIVE CARE TO MINIMIZE COMPLICATION AND AVOID HOSPITALIZATIONS BY THE END OF THE EPISODE. Encounters Start Date/Time End Date/Time Encounter Type Admission Type Attending [facility] Care Department Encounter ID Discharge Date Discharge Status Discharge Condition Discharge Reason Percent Goals Met 2025-01-18 00:00:00 2025-03-18 00:00:00 Outpatient IZABELLA CROUCH [facility] [id number]
--- OUTSIDE RECORDS SUMMARY | 2025-03-17 19:00 | XMS_ITS | Clinical Summary ---
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 [place] ARTERIES OF EXTRM W INTRMT GRACIELA, LEFT LEG Active 2024-03 00:00: 00 CARDIOMYOPAT HY IN DISEASES CLASSIFIED ELSEWHERE Active 2024-03 00:00: 00 NONRHEUMATIC AORTIC (VALVE) STENOSIS Active 2024-03 00:00: [address] 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 Active 2024-03 00:00: 00 RAYON WINDER (CURRENT) USE OF ANTICOAGULAN TS Active 2024-03 [...] 07-13 00:00: 00 10-23 23:59 :00 No [id number] SHORTNESS OF BREATH, WHEEZING Per instruc tions EVERY 4 HOURS Per instructio ns EVERY 4 HOURS (route: inhalation ) Med Classific ation: Respirato ry Therapy Agents albuterol sulfate HFA 90 mcg/actuati on aerosol inhaler 07-13 00:00: 00 07-19 00:00 :00 No [id number] Per instruc tions EVERY 4 HOURS NEEDED Per instructio ns EVERY 4 HOURS NEEDED (route: inhalation ) Med Classific ation: Respirato ry Therapy Agents BD Insulin Syringe Ultra-Fine 1 mL 31 gauge x 16 4-18 00:00: 00 07-19 00:00 :00 No [id number] Per instruc tions Per instructio ns (route: miscellane ous) Med Classific ation: Medical Supplies and Durable Medical Equipment (DME) terazosin 5 mg capsule 4-18 00:00: 00 10-23 23:59 :00 No [id number] BPH 1 capsule DAILY 1 capsule DAILY (route: oral) Med Classific ation: Cardiovas cular Therapy Agents Lantus U-100 Insulin 100 unit/mL subcutaneou s solution 4-13 00:00: 00 07-19 00:00 :00 No [id number] Per instruc tions Per instructio ns (route: subcutaneo us) Med Classific ation: Endocrine fenofibrate 54 mg tablet 4-11 00:00: 00 10-23 23:59 :00 No [id number] BPH 2 tablet DAILY 2 tablet DAILY (route: oral) Med Classific ation: Cardiovas cular Therapy Agents atorvastati n 10 mg tablet 2-18 00:00: 00 10-23 23:59 :00 No [id number] HLD 1 tablet BEDTIME 1 tablet BEDTIME (route: oral) Med Classific ation: Cardiovas cular Therapy Agents nifedipine ER 30 mg tablet,exte nded release 2-18 00:00: 00 10-23 23:59 :00 No [id number] HTN 1 tablet DAILY 1 tablet DAILY (route: oral) Med Classific ation: Cardiovas cular Therapy Agents Lantus U-100 Insulin 100 unit/mL subcutaneou s solution 2-15 00:00: 00 10-23 23:59 :00 No [id number] DM 18 unit 2 TIMES DAILY 18 unit 2 TIMES DAILY (route: subcutaneo us) Med Classific ation: Endocrine terazosin 5 mg capsule 2-10 00:00: 00 07-19 00:00 :00 No [id number] Per instruc tions Per instructio ns (route: oral) Med Classific ation: Cardiovas cular Therapy Agents BD Insulin Syringe Ultra-Fine 1 mL 31 gauge x 08/06 2- 00:00: 00 07-19 00:00 :00 No [id number] Per instruc tions Per instructio ns (route: miscellane ous) Med Classific ation: Medical Supplies and Durable Medical Equipment (DME) finasteride 5 mg tablet 04-20 00:00: 00 10-23 23:59 :00 No [id number] BPH 1 tablet DAILY 1 tablet DAILY (route: oral) Med Classific ation: Genitouri nary Therapy Aspirin Low Dose 81 mg tablet,nora yed release 07-19 00:00: 00 10-23 23:59 :00 No [id number] HEART DISEASE 1 tablet DAILY 1 tablet DAILY (route: oral) Med Classific ation: Hematolog ical Agents cholecalcif mary (vitamin D3) 10 mcg (400 unit) capsule 07-19 00:00: 00 10-23 23:59 :00 No [id number] SUPPLEMENT 1 capsule DAILY 1 capsule DAILY (route: oral) Med Classific ation: Electroly te Balance-N utritiona l Products Eliquis 5 mg tablet 07-19 00:00: 00 10-23 23:59 :00 No [id number] AFIB 1 tablet 2 TIMES DAILY 1 tablet 2 TIMES DAILY (route: oral) Med Classific ation: Hematolog ical Agents ferrous fumarate 324 mg (106 mg iron) tablet 07-19 00:00: 00 10-23 23:59 :00 No [id number] SUPPLEMENT 1 tablet DAILY 1 tablet DAILY (route: oral) Med Classific ation: Electroly te Balance-N utritiona l Products insulin lispro (U-100) 100 unit/mL subcutaneou s pen 07-19 00:00: 00 10-23 23:59 :00 No [id number] DM Per instruc tions BEFORE MEALS AND BEDTIME Per instructio ns BEFORE MEALS AND BEDTIME (route: subcutaneo us) Med Classific ation: Endocrine metoprolol tartrate 50 mg tablet 07-19 00:00: 00 07-25 23:59 :00 No [id number] HTN 1 tablet DAILY 1 tablet DAILY (route: oral) Med Classific ation: Cardiovas cular Therapy Agents One-A-Day Trubiotics 2 billion cell capsule 07-19 00:00: 00 10-23 23:59 :00 No [id number] SUPPLEMENT 1 capsule DAILY 1 capsule DAILY (route: oral) Med Classific ation: Gastroint estinal Therapy Agents metoprolol tartrate 25 mg tablet 07-25 00:00: 00 10-23 23:59 :00 No [id number] HTN 12.5 mg 2 TIMES DAILY 12.5 mg 2 TIMES DAILY (route: oral) Med Classific ation: Cardiovas cular Therapy Agents amoxicillin 875 mg-potassiu m clavulanate 125 mg tablet 10-23 00:00: 00 04-27 23:59 :00 No [id number] ABT 1 tablet 2 TIMES DAILY 1 tablet 2 TIMES DAILY (route: oral) Med Classific ation: Anti-Infe ctive Agents terazosin 5 mg capsule 7-11 00:00: 00 10-28 00:00 :00 No [id number] Per instruc tions Per instructio ns (route: oral) Med Classific ation: Cardiovas cular Therapy Agents Advair Diskus 250 mcg-50 mcg/dose powder for inhalation 10-28 00:00: 00 04-27 23:59 :00 No [id number] COPD 1 inhalat ion 3 TIMES DAILY 1 inhalation 3 TIMES DAILY (route: inhalation ) Med Classific ation: Respirato ry Therapy Agents Eliquis 5 mg tablet 10-28 00:00: 00 04-27 23:59 :00 No [id number] ANTICOAGULA TION 1 tablet 2 TIMES DAILY 1 tablet 2 TIMES DAILY (route: oral) Med Classific ation: Hematolog ical Agents fenofibrate 54 mg tablet 10-28 00:00: 00 04-27 23:59 :00 No [id number] PROSTATE 1 tablet DAILY 1 tablet DAILY (route: oral) Med Classific ation: Cardiovas cular Therapy Agents insulin glargine (U-100) 100 unit/mL subcutaneou s solution 10-28 00:00: 00 04-27 23:59 :00 No [id number] DM 18 unit 2 TIMES DAILY 18 unit 2 TIMES DAILY (route: subcutaneo us) Med Classific ation: Endocrine iron 325 mg (65 mg iron) tablet 10-28 00:00: 00 04-27 23:59 :00 No [id number] SUPPLEMENT 1 tablet DAILY 1 tablet DAILY (route: oral) Med Classific ation: Electroly te Balance-N utritiona l Products Lipitor 10 mg tablet 10-28 00:00: 00 04-27 23:59 :00 No [id number] CAD 1 tablet DAILY 1 tablet DAILY (route: oral) Med Classific ation: Cardiovas cular Therapy Agents losartan 50 mg tablet 10-28 00:00: 00 04-27 23:59 :00 No [id number] HTN 1 tablet DAILY 1 tablet DAILY (route: oral) Med Classific ation: Cardiovas cular Therapy Agents terazosin 5 mg capsule 10-28 00:00: 00 04-27 23:59 :00 No [id number] SLEEP 1 capsule DAILY 1 capsule DAILY (route: oral) Med Classific ation: Cardiovas cular Therapy Agents Toprol XL 25 mg tablet,exte nded release 10-28 00:00: 00 04-27 23:59 :00 No [id number] AFIB 0.5 tablet DAILY 0.5 tablet DAILY (route: oral) Med Classific ation: Cardiovas cular Therapy Agents Vitamin D3 25 mcg (1,000 unit) capsule 10-28 00:00: 00 04-27 23:59 :00 No [id number] SUPPLEMENT 1 capsule DAILY 1 capsule DAILY (route: oral) Med Classific ation: Electroly te Balance-N utritiona l Products Advair Diskus 250 mcg-50 mcg/dose powder for inhalation 04-30 00:00: 06-03 13:27 :08 No [id number] SOB 1 inhalat ion 2 TIMES DAILY 1 inhalation 2 TIMES DAILY (route: inhalation ) Med Classific ation: Respirato ry Therapy Agents atorvastati n 40 mg tablet 2 00:00: 06-03 13:27 :08 No [id number] CHOLESTEROL 1 tablet BEDTIME 1 tablet BEDTIME (route: oral) Med Classific ation: Cardiovas cular Therapy Agents D3 DOTS 50 mcg (2,000 unit) tablet 04-30 00:00: 00 06-02 23:59 :00 No [id number] SUPPLEMENT 1 tablet DAILY 1 tablet DAILY (route: oral) Med Classific ation: Electroly te Balance-N utritiona l Products Eliquis 2.5 mg tablet 04-30 00:00: 00 06-02 23:59 :00 No [id number] ATRIAL FIB 1 tablet 2 TIMES DAILY 1 tablet 2 TIMES DAILY (route: oral) Med Classific ation: Hematolog ical Agents fenofibrate 54 mg tablet 04-30 00:00: 00 06-02 23:59 :00 No [id number] CHOLESTEROL 2 tablet DAILY 2 tablet DAILY (route: oral) Med Classific ation: Cardiovas cular Therapy Agents ferrous sulfate 325 mg (65 mg iron) tablet 04-30 00:00: 00 06-03 13:27 :08 No [id number] ANEMIA 1 tablet DAILY 1 tablet DAILY (route: oral) Med Classific ation: Electroly te Balance-N utritiona l Products finasteride 5 mg tablet 04-30 00:00: 00 06-03 13:27 :08 No [id number] BPH 1 tablet DAILY 1 tablet DAILY (route: oral) Med Classific ation: Genitouri nary Therapy insulin glargine (U-100) 100 unit/mL (3 mL) subcutaneou s pen 2 00:00: 00 06-03 13:27 :08 No [id number] DM 18 unit 2 TIMES DAILY 18 unit 2 TIMES DAILY (route: subcutaneo us) Med Classific ation: Endocrine losartan 50 mg tablet 2-07 00:00: 00 06-02 23:59 :00 No [id number] HTN 50 mg DAILY 50 mg DAILY (route: oral) Med Classific ation: Cardiovas cular Therapy Agents metoprolol succinate ER 25 mg tablet,exte nded release 24 hr 2- 00:00: 00 06-02 23:59 :00 No [id number] RATE CONTROL,BP .5 tablet 2 TIMES DAILY .5 tablet 2 TIMES DAILY (route: oral) Med Classific ation: Cardiovas cular Therapy Agents Novolin N FlexPen 100 unit/mL (3 mL) subcutane s insulin pen 2- 00:00: 00 06-02 23:59 :00 No [id number] DM 16 unit DAILY 16 unit DAILY (route: [facility]) Med Classific ation: Endocrine Novolog FlexPen U-100 Insulin aspart 100 unit/mL (3 mL) subcutaneou s 04-30 00:00: 00 06-02 23:59 :00 No [id number] DM 9 unit DAILY 9 unit DAILY ([facility] Med Classific ation: Endocrine Novolog FlexPen U-100 Insulin aspart 100 unit/mL (3 mL) subcutaneou s 2 00:00: 00 06-02 23:59 :00 No [id number] DM 11 unit DAILY 11 unit DAILY ([facility] Med Classific ation: Endocrine terazosin 5 mg capsule 2- 00:00: 00 06-02 23:59 :00 No [id number] BPH 1 capsule BEDTIME 1 capsule BEDTIME (route: oral) Med Classific ation: Cardiovas cular Therapy Agents carboxymeth ylcellulose sodium 0.5 % eye drops 2- 00:00: 00 06-02 23:59 :00 No [id number] DRY EYES 1 drops 2 TIMES DAILY 1 drops 2 TIMES DAILY (route: ophthalmic (eye)) Med Classific ation: Ophthalmi c Agents ICaps AREDS 4,296 mcg-226 mg-90 mg capsule 04-30 00:00: 00 06-02 23:59 :00 No [id number] EYE HEALTH 1 capsule DAILY 1 capsule DAILY (route: oral) Med Classific ation: Electroly te Balance-N utritiona l Products Jardiance 25 mg tablet 04-30 00:00: 00 05-12 23:59 :00 No [id number] DM 1 tablet DAILY 1 tablet DAILY (route: oral) Med Classific ation: Endocrine Lasix 40 mg tablet 05-09 00:00: 00 06-02 23:59 :00 No [id number] CHF 1 tablet DAILY 1 tablet DAILY (route: oral) Med Classific ation: Cardiovas cular Therapy Agents Jardiance 10 mg tablet 05-12 00:00: 00 06-02 23:59 :00 No [id number] DIABETES 0.5 tablet DAILY 0.5 tablet DAILY (route: oral) Med Classific ation: Endocrine fenofibrate 54 mg tablet 05-19 00:00: 00 06-10 00:00 :00 No [id number] Per instruc tions Per instructio ns (route: oral) Med Classific ation: Cardiovas cular Therapy Agents acetaminoph en 500 mg tablet 06-10 00:00: 00 09-22 00:00 :00 No [id number] PAIN 2 tablet EVERY 8 HOURS 2 tablet EVERY 8 HOURS (route: oral) Med Classific ation: Analgesic , Anti-infl ammatory or Antipyret ic Afrin (oxymetazol ine) 0.05 % nasal spray 06-10 00:00: 00 09-22 00:00 :00 No [id number] NOSEBLEEDS 2 spray EVERY 4 HOURS 2 spray EVERY 4 HOURS (route: nasal) Med Classific ation: Respirato ry Therapy Agents albuterol sulfate HFA 90 mcg/actuati on aerosol inhaler 06-10 00:00: 00 09-22 00:00 :00 No [id number] SHORTNESS OF BREATH 2 puff EVERY 6 HOURS 2 puff EVERY 6 HOURS (route: inhalation ) Med Classific ation: Respirato ry Therapy Agents amiodarone 200 mg tablet 06-10 00:00: 00 09-22 00:00 :00 No [id number] IRREGULAR HEART BEAT 1 tablet DAILY 1 tablet DAILY (route: oral) Med Classific ation: Cardiovas cular Therapy Agents aspirin 81 mg tablet,nora yed release 06-10 00:00: 00 09-22 00:00 :00 No [id number] HIGH LIPIDS 1 tablet DAILY 1 tablet DAILY (route: oral) Med Classific ation: Hematolog ical Agents betamethaso ne dipropionat e 0.05 % topical cream 06-10 00:00: 00 09-22 00:00 :00 No [id number] PSORIASIS FLARE 3 inch 2 TIMES DAILY 3 inch 2 TIMES DAILY (route: topical) Med Classific ation: Dermatolo gical Eliquis 2.5 mg tablet 06-10 00:00: 00 09-22 00:00 :00 No [id number] IRREGULAR HEART BEAT 1 tablet EVERY 12 HOURS 1 tablet EVERY 12 HOURS (route: oral) Med Classific ation: Hematolog ical Agents fenofibrate 54 mg tablet 06-10 00:00: 00 09-22 00:00 :00 No [id number] HIGH LIPIDS 2 tablet EVERY AM 2 tablet EVERY AM (route: oral) Med Classific ation: Cardiovas cular Therapy Agents ferrous sulfate 325 mg (65 mg iron) tablet 06-10 00:00: 00 09-22 00:00 :00 No [id number] ANEMIA 1 tablet EVERY 48 HOURS 1 tablet EVERY 48 HOURS (route: oral) Med Classific ation: Electroly te Balance-N utritiona l Products finasteride 5 mg tablet 06-10 00:00: 00 09-22 00:00 :00 No [id number] ENLARGED PROSTATE 1 tablet BEDTIME 1 tablet BEDTIME (route: oral) Med Classific ation: Genitouri nary Therapy Jardiance 25 mg tablet 06-10 00:00: 00 09-22 00:00 :00 No [id number] DIABETES 1 tablet DAILY 1 tablet DAILY (route: oral) Med Classific ation: Endocrine Lantus Solostar U-100 Insulin 100 unit/mL (3 mL) [facility] pen 06-10 00:00: 00 09-22 00:00 :00 No [id number] DIABETES 8 unit 2 TIMES DAILY 8 unit 2 TIMES DAILY (route: [facility]) Med Classific ation: Endocrine metoprolol succinate ER 25 mg tablet,exte nded release 24 hr 06-10 00:00: 00 09-22 00:00 :00 No [id number] IRREGULAR HEART BEAT 0.5 tablet 2 TIMES DAILY 0.5 tablet 2 TIMES DAILY (route: oral) Med Classific ation: Cardiovas cular Therapy Agents Miralax 17 gram/dose oral powder 06-10 00:00: 00 09-22 00:00 :00 No [id number] CONSTIPATIO N 17 gram DAILY 17 gram DAILY (route: oral) Med Classific ation: Gastroint estinal Therapy Agents Novolog FlexPen U-100 Insulin aspart 100 unit/mL (3 mL) [facility] s 06-10 00:00: 00 09-22 00:00 :00 No [id number] DIABETES 2 unit BEFORE DINNER 2 unit BEFORE DINNER (route: [facility]) Med Classific ation: Endocrine Novolog FlexPen U-100 Insulin aspart 100 unit/mL (3 mL) [facility] s 06-10 00:00: 00 09-22 00:00 :00 No [id number] DIABETES 4 unit BEFORE LUNCH 4 unit BEFORE LUNCH (route: [facility]) Med Classific ation: Endocrine Novolog FlexPen U-100 Insulin aspart 100 unit/mL (3 mL) [facility] s 06-10 00:00: 00 09-22 00:00 :00 No [id number] DIABETES 4 unit BEFORE BREAKFAST 4 unit BEFORE BREAKFAST (route: [facility]) Med Classific ation: Endocrine oxycodone 5 mg tablet 06-10 00:00: 00 09-22 00:00 :00 No [id number] SEVERE PAIN 1 tablet EVERY 4 HOURS 1 tablet EVERY 4 HOURS (route: oral) Med Classific ation: Analgesic , Anti-infl ammatory or Antipyret ic terazosin 5 mg capsule 06-10 00:00: 00 09-22 00:00 :00 No [id number] ENLARGED PROSTATE 1 capsule BEDTIME 1 capsule BEDTIME (route: oral) Med Classific ation: Cardiovas cular Therapy Agents Wixela Inhub 250 mcg-50 mcg/dose powder for inhalation 06-10 00:00: 00 09-22 00:00 :00 No [id number] COPD 1 inhalat ion DAILY 1 inhalation DAILY (route: inhalation ) Med Classific ation: Respirato ry Therapy Agents amoxicillin 875 mg-potassiu m clavulanate 125 mg tablet 06-16 00:00: 00 06-26 23:59 :00 No [id number] INFE 1 tablet 2 TIMES DAILY 1 tablet 2 TIMES DAILY (route: oral) Med Classific ation: Anti-Infe ctive Agents albuterol sulfate HFA 90 mcg/actuati on aerosol inhaler 09-21 00:00: 00 Yes [id number] SHORTNESS OF BREATH, WHEEZING 2 puff EVERY 6 HOURS 2 puff EVERY 6 HOURS (route: inhalation ) Med Classific ation: Respirato ry Therapy Agents amiodarone 200 mg tablet 09-21 00:00: 00 12-03 23:59 :00 No [id number] IRREGULAR HEART BEAT 1 tablet DAILY 1 tablet DAILY (route: oral) Med Classific ation: Cardiovas cular Therapy Agents atorvastati n 40 mg tablet 09-21 00:00: 00 01-18 00:00 :00 No [id number] HIGH LIPIDS 1 tablet BEDTIME 1 tablet BEDTIME (route: oral) Med Classific ation: Cardiovas cular Therapy Agents betamethaso ne dipropionat e 0.05 % lotion 09-21 00:00: 00 12-03 23:59 :00 No [id number] RASH 3 mL 2 TIMES DAILY 3 mL 2 TIMES DAILY (route: topical) Med Classific ation: Dermatolo gical cyanocobala min (vit B-12) 1,000 mcg tablet 09-21 00:00: 00 01-18 00:00 :00 No [id number] SUPPLEMENT 1 tablet DAILY 1 tablet DAILY (route: oral) Med Classific ation: Electroly te Balance-N utritiona l Products doxycycline hyclate 100 mg tablet 09-21 00:00: 00 09-22 23:59 :00 No [id number] PNEUMONIA 1 tablet EVERY 12 HOURS 1 tablet EVERY 12 HOURS (route: oral) Med Classific ation: Anti-Infe ctive Agents Eliquis 2.5 mg tablet 09-21 00:00: 00 01-18 00:00 :00 No [id number] IRREGULAR HEART BEAT- CLOT PREVENTION 1 tablet EVERY 12 HOURS 1 tablet EVERY 12 HOURS (route: oral) Med Classific ation: Hematolog ical Agents ferrous sulfate 325 mg (65 mg iron) tablet 09-21 00:00: 00 01-18 00:00 :00 No [id number] ANEMIA 1 tablet DAILY 1 tablet DAILY (route: oral) Med Classific ation: Electroly te Balance-N utritiona l Products finasteride 5 mg tablet 09-21 00:00: 00 01-18 00:00 :00 No [id number] URINARY RETENTION 1 tablet BEDTIME 1 tablet BEDTIME (route: oral) Med Classific ation: Genitouri nary Therapy fluticasone 250 mcg-[place] rol 50 mcg/dose blistr powdr for inhalation 09-21 00:00: 00 01-18 00:00 :00 No [id number] TROUBLE BREATHING 1 inhalat ion 2 TIMES DAILY 1 inhalation 2 TIMES DAILY (route: inhalation ) Med Classific ation: Respirato ry Therapy Agents furosemide 40 mg tablet 09-23 00:00: 00 12-03 23:59 :00 No [id number] WATER WEIGHT 1 tablet DAILY 1 tablet DAILY (route: oral) Med Classific ation: Cardiovas cular Therapy Agents Jardiance 25 mg tablet 09-21 00:00: 00 Yes [id number] DIABETES 1 tablet DAILY 1 tablet DAILY (route: oral) Med Classific ation: Endocrine metoprolol succinate ER 25 mg tablet,exte nded release 24 hr 09-21 00:00: 00 12-03 23:59 :00 No [id number] IRREGULAR HEART BEAT 0.5 tablet 2 TIMES DAILY 0.5 tablet 2 TIMES DAILY (route: oral) Med Classific ation: Cardiovas cular Therapy Agents Novolin 70-30 FlexPen U-100 Insulin 100 unit/mL (70-30) subcutaneou s 09-21 00:00: 00 12-03 23:59 :00 No [id number] DIABETES 11 unit BEFORE DINNER 11 unit BEFORE DINNER (route: [facility]) Med Classific ation: Endocrine Novolin N FlexPen 100 unit/mL (3 mL) [facility] insulin pen 09-21 00:00: 00 12-03 23:59 :00 No [id number] DIABETES 16 unit EVERY AM 16 unit EVERY AM (route: sub[facility]) Med Classific ation: Endocrine Novolog FlexPen U-100 Insulin aspart 100 unit/mL (3 mL) [facility] 09-21 00:00: 00 12-03 23:59 :00 No [id number] DIABETES 9 unit BEFORE LUNCH 9 unit BEFORE LUNCH (route: [facility]) Med Classific ation: Endocrine prednisone 20 mg tablet 09-21 00:00: 00 09-23 23:59 :00 No [id number] PNEUMONIA 2 tablet DAILY 2 tablet DAILY (route: oral) Med Classific ation: Endocrine Refresh Optive 0.5 %-0.9 % eye drops 09-21 00:00: 00 01-18 00:00 :00 No [id number] DRY EYES 1 drops 2 TIMES DAILY 1 drops 2 TIMES DAILY (route: ophthalmic (eye)) Med Classific ation: Ophthalmi c Agents terazosin 5 mg capsule 09-21 00:00: 00 Yes [id number] ENLARGED PROSTATE 1 capsule BEDTIME 1 capsule BEDTIME (route: oral) Med Classific ation: Cardiovas cular Therapy Agents carvedilol 3.125 mg tablet 12-03 00:00: 00 Yes [id number] HTN 1 tablet 2 TIMES DAILY 1 tablet 2 TIMES DAILY (route: oral) Med Classific ation: Cardiovas cular Therapy Agents insulin aspar prot-insuli n aspart 100 unit/mL (70-30) subcutaneou s pen 12-03 00:00: 00 Yes [id number] DM2 2 unit 3 TIMES DAILY 2 unit 3 TIMES DAILY (route: [facility] ) Med Classific ation: Endocrine insulin aspar prot-insuli n aspart 100 unit/mL (70-30) subcutaneou s pen 12-03 00:00: 00 01-18 00:00 :00 No [id number] DM2 4 unit 3 TIMES DAILY 4 unit 3 TIMES DAILY (route: [facility]) Med Classific ation: Endocrine insulin aspar prot-insuli n aspart 100 unit/mL (70-30) subcutaneou s pen 12-03 00:00: 00 01-18 00:00 :00 No [id number] DM2 6 unit 3 TIMES DAILY 6 unit 3 TIMES DAILY (route: [facility]) Med Classific ation: Endocrine insulin aspar prot-insuli n aspart 100 unit/mL (70-30) subcutaneou s pen 12-03 00:00: 00 01-18 00:00 :00 No [id number] DM2 8 unit 3 TIMES DAILY 8 unit 3 TIMES DAILY (route: [facility]) Med Classific ation: Endocrine Lasix 20 mg tablet 12-03 00:00: 00 01-18 00:00 :00 No [id number] CHF 1 tablet 2 TIMES DAILY 1 tablet 2 TIMES DAILY (route: oral) Med Classific ation: Cardiovas cular Therapy Agents oxycodone 5 mg tablet 12-03 00:00: 00 Yes [id number] PAIN 1 tablet EVERY 4 HOURS 1 tablet EVERY 4 HOURS (route: oral) Med Classific ation: Analgesic , Anti-infl ammatory or Antipyret ic trazodone 50 mg tablet 12-03 00:00: 00 01-18 00:00 :00 No [id number] INSOMNIA 1 tablet DAILY 1 tablet DAILY (route: oral) Med Classific ation: Central Nervous System Agents Tylenol Extra Strength 500 mg tablet 12-03 00:00: 00 Yes [id number] OPAIN 2 tablet 3 TIMES DAILY 2 [...] TION MANAGEMENT; RN TO ASSESS AND OBSERVE, FILLING HAULER WEAVING/RAIL MANAGER TO OBSERVE FALL RISK FACTORS AND EDUCATE PATIENT/CAREGIVER ON STRATEGIES TO MINIMIZE THE RISK OF FALLING. [code = FALL REDUCTION MANAGEMENT; RN TO ASSESS AND OBSERVE, FILLING [employer]AVING/RAIL MANAGER TO OBSERVE FALL RISK FACTORS AND EDUCATE PATIENT/CAREGIVER ON STRATEGIES TO MINIMIZE THE RISK OF FALLING.] Future Scheduled Test DIABETES M ANAGEMENT; RN TO ASSESS AND TEACH, RAIL MANAGER/FILLING HA[employer]AVING TO OBSERVE AND TEACH INSTRUCTIONS OF DIABETIC CARE TO INCLUDE: DIET SKIN CARE, SIGNS AND SYMPTOMS OF HYPO/HYPERGLYCEMIA, PROPER ADMINISTRATION OF DIABETIC MEDICATION. RN/RAIL MANAGER/FILLING HA[employer]AVING TO INSTRUCT ON DIABETIC FOOT CARE AND MONITOR FOR SKIN LESIONS ON LOWER EXTREMITIES. BLOOD GLUCOSE TESTING 3X A DAY FREQ. RN TO ASSESS AND TEACH, RAIL MANAGER/FILLING HA[employer]AVING TO OBSERVE AND TEACH PATIENT/CAREGIVER ABILITY TO PERFORM AND RECORD BLOOD GLUCOSE TESTING ORDERED AND TO REPORT ABNORMAL FINDINGS TO PHYSICIAN. RN/RAIL MANAGER/FILLING [employer]ING MAY PERFORM BLOOD GLUCOSE TEST NEEDED. RN/RAIL MANAGER/FILLING [employer]AVING TO REPORT TO PHYSICIAN BLOOD GLUCOSE READINGS GREATER THAN 60 OR LESS THAN 350. RN/RAIL MANAGER/FILLING [employer]ING TO INSTRUCT PATIENT ON IMPORTANCE OF HGBA1C MONITORING, KIDNEY FUNCTION TEST, EYE AND FOOT EXAMS. [code = DIABETES MANAGEMENT; RN TO ASSESS AND TEACH, RAIL MANAGER/FILLING HAULER WEAVING TO OBSERVE AND TEACH INSTRUCTIONS OF DIABETIC CARE TO INCLUDE: DIET SKIN CARE, SIGNS AND SYMPTOMS OF HYPO/HYPERGLYCEMIA, PROPER ADMINISTRATION OF DIABETIC MEDICATION. RN/RAIL MANAGER/FILLING HA[employer]ER WEAVING TO INSTRUCT ON DIABETIC FOOT CARE AND MONITOR FOR SKIN LESIONS ON LOWER EXTREMITIES. BLOOD GLUCOSE TESTING 3X A DAY FREQ. RN TO ASSESS AND TEACH, RAIL MANAGER/FILLING HAULER WEAVING TO OBSERVE AND TEACH PATIENT/CAREGIVER ABILITY TO PERFORM AND RECORD BLOOD GLUCOSE TESTING ORDERED AND TO REPORT ABNORMAL FINDINGS TO PHYSICIAN. RN/RAIL MANAGER/FILLING [employer]ER [employer]AVING MAY PERFORM BLOOD GLUCOSE TEST NEEDED. RN/RAIL MANAGER/FILLING HAULER WEAVING TO REPORT TO PHYSICIAN BLOOD GLUCOSE READINGS GREATER THAN 60 OR LESS THAN 350. RN/RAIL MANAGER/FILLING HAULER [employer]AVING TO INSTRUCT PATIENT ON IMPORTANCE OF HGBA1C MONITORING, KIDNEY FUNCTION TEST, EYE AND FOOT EXAMS.] Future Scheduled Test RN TO OBSE RVE, ASSESS, EVALUATE, AND DEVELOP AN INDIVIDUALIZED PLAN OF CARE. AGENCY MAY ACCEPT ORDERS FROM CONSULTING PHYSICIANS. RN TO OBSERVE AND ASSESS, FILLING [employer]ER [employer]AVING/RAIL MANAGER TO OBSERVE FOR RISK FOR FALLS AND INSTRUCT IN FALL PREVENTION, HOME SAFETY, MEDICATION MANAGEMENT, INFECTION PREVENTION, AND NUTRITION MANAGEMENT. RN/FILLING HAULER WEAVING/RAIL MANAGER NURSE MAY PERFORM O2 SATURATION LEVEL ON ADMISSION AND PRN FOR RN TO ASSESS/FILLING HAULER WEAVING TO OBSERVE PATIENT, WITH NOTIFICATION TO THE PHYSICIAN IF SATURATION IS 90% IN THE ABSENCE OF MORE SPECIFIC PARAMETERS FROM THE PHYSICIAN. AGENCY MAY PERFORM A RESUMPTION OF CARE VISIT FOLLOWING ANY HOSPITAL ADMISSION. RN/FILLING HAULER WEAVING/RAIL MANAGER TO MONITOR CO-MORBID CONDITIONS LISTED ON THE PLAN OF CARE AND ANY NEW CONDITIONS THAT PRESENT THEMSELVES DURING THIS EPISODE TO IDENTIFY CHANGES AND INTERVENE TO MINIMIZE COMPLICATIONS. [code = RN TO OBSERVE, ASSESS, EVALUATE, AND DEVELOP AN INDIVIDUALIZED PLAN OF CARE. AGENCY MAY ACCEPT ORDERS FROM CONSULTING PHYSICIANS. RN TO OBSERVE AND ASSESS, FILLING HAULER WEAVING/RAIL MANAGER TO OBSERVE FOR RISK FOR FALLS AND INSTRUCT IN FALL PREVENTION, HOME SAFETY, MEDICATION MANAGEMENT, INFECTION PREVENTION, AND NUTRITION MANAGEMENT. RN/FILLING HAULER WEAVING/RAIL MANAGER NURSE MAY PERFORM O2 SATURATION LEVEL ON ADMISSION AND PRN FOR RN TO ASSESS/FILLING HAULER WEAVING TO OBSERVE PATIENT, WITH NOTIFICATION TO THE PHYSICIAN IF SATURATION IS 90% IN THE ABSENCE OF MORE SPECIFIC PARAMETERS FROM THE PHYSICIAN. AGENCY MAY PERFORM A RESUMPTION OF CARE VISIT FOLLOWING ANY HOSPITAL ADMISSION. RN/FILLING HAULER WEAVING/RAIL MANAGER TO MONITOR CO-MORBID CONDITIONS LISTED ON THE PLAN OF CARE AND ANY NEW CONDITIONS THAT PRESENT THEMSELVES DURING THIS EPISODE TO IDENTIFY CHANGES AND INTERVENE TO MINIMIZE COMPLICATIONS.] Future Scheduled Test PAIN MANAG EMENT; RN TO ASSESS AND TEACH, RAIL MANAGER/FILLING HAULER WEAVING TO OBSERVE AND TEACH AND PROVIDE EDUCATION ON PAIN MANAGEMENT TECHNIQUES. [code = PAIN MANAGEMENT; RN TO ASSESS AND TEACH, RAIL MANAGER/FILLING HAULER WEAVING TO OBSERVE AND TEACH AND PROVIDE EDUCATION ON PAIN MANAGEMENT TECHNIQUES.] Future Scheduled Test RISK FOR H OSPITALIZATION; RN TO ASSESS/TEACH, RAIL MANAGER/FILLING HAULER WEAVING TO OBSERVE/TEACH PATIENT/CAREGIVER ON RISK FOR HOSPITALIZATION/EMERGENCY ROOM VISITS, TEACH SIGNS AND SYMPTOMS THAT PUT PATIENT AT RISK, WHEN TO NOTIFY NURSE/PHYSICIAN OF COMPLICATIONS/DECLINE, AND WHEN TO CALL 911. [code = RISK FOR HOSPITALIZATION; RN TO ASSESS/TEACH, RAIL MANAGER/FILLING HAULER WEAVING TO OBSERVE/TEACH PATIENT/CAREGIVER ON RISK FOR HOSPITALIZATION/EMERGENCY ROOM VISITS, TEACH SIGNS AND SYMPTOMS THAT PUT PATIENT AT RISK, WHEN TO NOTIFY NURSE/PHYSICIAN OF COMPLICATIONS/DECLINE, AND WHEN TO CALL 911.] Future Scheduled Test CARDIOVASC ULAR SYSTEM; RN TO ASSESS/TEACH, FILLING HAULER WEAVING/RAIL MANAGER TO OBSERVE/TEACH RELATED TO ALTERED CARDIOVASCULAR STATUS TO MINIMIZE COMPLICATIONS AND REDUCE HOSPITALIZATION. [code = CARDIOVASCULAR SYSTEM; RN TO ASSESS/TEACH, FILLING HAULER WEAVING/RAIL MANAGER TO OBSERVE/TEACH RELATED TO ALTERED CARDIOVASCULAR STATUS TO MINIMIZE COMPLICATIONS AND REDUCE HOSPITALIZATION.] Future Scheduled Test HEART FAIL URE; RN TO ASSESS/TEACH, FILLING HAULER WEAVING/RAIL MANAGER TO OBSERVE/TEACH CARDIOPULMONARY SYSTEM TO IDENTIFY SIGNS [...] [code = HEART FAILURE; RN TO ASSESS/TEACH, FILLING HAULER WEAVING/RAIL MANAGER TO OBSERVE/TEACH CARDIOPULMONARY SYSTEM TO IDENTIFY SIGNS [...] INTEG RITY RN TO ASSESS AND TEACH, FILLING HAULER WEAVING/RAIL MANAGER TO OBSERVE AND TEACH INTEGUMENTARY STATUS TO IDENTIFY CHANGES AND INTERVENE TO MINIMIZE COMPLICATIONS. PROVIDE SKILLED TEACHING OF GENERAL WOUND AND SKIN CARE AND PREVENTION RELATED TO POTENTIAL FOR OR ACTUAL ALTERED SKIN INTEGRITY [code = SKIN INTEGRITY RN TO ASSESS AND TEACH, FILLING HAULER WEAVING/RAIL MANAGER TO OBSERVE AND TEACH INTEGUMENTARY STATUS TO IDENTIFY CHANGES AND INTERVENE TO MINIMIZE COMPLICATIONS. PROVIDE SKILLED TEACHING OF GENERAL WOUND AND SKIN CARE AND PREVENTION RELATED TO POTENTIAL FOR OR ACTUAL ALTERED SKIN INTEGRITY] Future Scheduled Test MEDICATION MANAGEMENT; RN/FILLING HAULER WEAVING/RAIL MANAGER TO REVIEW MEDICATIONS FOR INTERACTIONS, EFFECTIVENESS OF DRUG THERAPY, AND SIGNS/SYMPTOMS OF ADVERSE REACTIONS. MAY INSTRUCT AND REINFORCE MEDICATION TEACHING RELATED TO THE USE OF MEDICATIONS, DOSAGE, FREQUENCY, PURPOSE, SIDE EFFECTS, AND TO REPORT COMPLICATIONS. [code = MEDICATION MANAGEMENT; RN/FILLING HAULER WEAVING/RAIL MANAGER TO REVIEW MEDICATIONS FOR INTERACTIONS, EFFECTIVENESS OF DRUG THERAPY, AND SIGNS/SYMPTOMS OF ADVERSE REACTIONS. MAY INSTRUCT AND REINFORCE MEDICATION TEACHING RELATED TO THE USE OF MEDICATIONS, DOSAGE, FREQUENCY, PURPOSE, SIDE EFFECTS, AND TO REPORT COMPLICATIONS.] Future Scheduled Test RN TO ASSE SS/TEACH, FILLING HAULER WEAVING/RAIL MANAGER TO OBSERVE/TEACH SURGICAL AFTERCARE MANAGEMENT TO AVOID HOSPITALIZATION. [code = RN TO ASSESS/TEACH, FILLING HAULER WEAVING/RAIL MANAGER TO OBSERVE/TEACH SURGICAL AFTERCARE MANAGEMENT TO AVOID [...] End Date/Time Encounter Type Admission Type Attending [facility] Care Department Encounter ID Discharge Date Discharge Status Discharge Condition Discharge Reason Percent Goals Met 2025-01-18 00:00:00 2025-03-18 00:00:00 Outpatient IZABELLA CROU[facility] [id number]
== END 2025-01-25 13:00 | disposition home or self-care (01) ==
LOC: HO.LAB 12:59
PROVIDERS: PCP Physician Assistant; Visit Provider Physician Assistant
DX: E87.6 Hypokalemia (principal); D64.9 Anemia, unspecified; I13.0 Hypertensive heart and chronic kidney disease with heart failure and stage 1 through stage 4 chronic kidney disease, or unspecified chronic kidney disease; E11.22 Type 2 diabetes mellitus with diabetic chronic kidney disease; I50.20 Unspecified systolic (congestive) heart failure; N18.30 Chronic kidney disease, stage 3 unspecified; E78.5 Hyperlipidemia, unspecified; I48.0 Paroxysmal atrial fibrillation; J44.9 Chronic obstructive pulmonary disease, unspecified; C44.320 Squamous cell carcinoma of skin of unspecified parts of face; M43.06 Spondylolysis, lumbar region; M21.379 Foot drop, unspecified foot; Z09 Encounter for follow-up examination after completed treatment for conditions other than malignant neoplasm
CPT/HCPCS: 36415; 82607; 83540; 84132; 85025; 99212

== ENCOUNTER 2025-01-25 12:59 | Outpatient (AMB) | payer MEDICARE, OTHER, SELFPAY ==
--- OUTSIDE RECORDS SUMMARY | 2023-10-02 05:30 | XMS_ITS ---
Author Organization Dean Parsons III, MD Address [address] [place] [address] Care Team Providers [facility] Name Role Phone Donte Powell MD Primary Care Provider Dr. Daen Hopson III Unavailable Allergies Allergen (clinical drug ingredient) Drug/Non Drug Allergy documented on EMR Reaction Allergy Type Onset Date Status almond allergenic extract [place] (Diagnostic) Unknown Drug Allergy Active Shellfish (FN) Shellfish-derived Products Throat closes Drug Allergy Active warfarin Warfarin Sodium rash Drug Allergy A ctive REASON FOR VISIT Lymphoma in remission, Multiple cutaneous squamous cell carcinoma, Aortic stenosis, Hypertension, Peripheral arterial disease, Atrial fibrillation, Anticoagulation Medications Medication SIG (Take, Route, Frequency, Duration) Notes Start Date End Date Status Amiodarone HCl 200 MG Oral Active Atorvastatin Calcium 40 MG Oral Active NovoLOG FlexPen 100 UNIT/ML Subcutaneous Active Aspir-81 Active Advair Diskus 100-50 MCG/ACT 1 puff Inha lation Twice a day Active B12 Folate Active Carboxymethylcellulose Sodium Active Terazosin HCl 5 MG 1 capsule at bedtime Orally Once a day Active Furosemide 40 MG TAKE 1 TABLET BY SHOBHA TH DAILY Oral Active Toprol XL 25 MG 1/2 tablet Orally On ce a day 06/18/2022 Active Losartan Potassium 25 MG Oral Active Finasteride 5 MG 1 tablet Orally Once a day Active Lipitor 40 MG 1 tablet Orally Once a day Active Lantus 100 UNIT/ML 18Unit Subcutaneous Once a day Active NIFEdipine ER 30 MG TAKE 1 TABLET BY SHOBHA TH EVERY DAY Oral Active Fenofibrate 54 MG Oral Ac tive Eliquis 5 MG 1 tablet Orally once a day Active Social History Tobacco Use: Social History Observation Description Date Details (start date - stop date) Former Smoker NA - NA Tobacco Use/Smoking Question Answer Notes Patient is a former smoker How long has it been since you last smoked? > 10 years Additional Findings: Tobacco Non-User Ex-cigaret te smoker Vital Signs Temperature 97.0 degrees Fahrenheit 10/02/19 24 Blood pressure systolic 121 mm Hg 10/02/19 24 Blood pressure diastolic 70 mm Hg 024 Heart Rate 63 /min 10/02/2023 Height 67 in 10/02/2023 Weight 175 lbs 10/02/2023 BMI 27.41 kg/m2 10/02/2023 Encounters Encounter Location Date Provider Diagnosis Dean Parsons III, MD [address] [place] [address] [place], [place] [id number] 10/02/2023 Dean Parsons Lymphoma C85.90 ; Overweight E66.3 ; Diabetes mellitus E11.9 ; Vitamin B12 deficiency E53.8 ; Essential hypertension I10 ; Atrial fibrillation I48.91 ; Peripheral vascular disease in diabetes mellitus E11.51 ; Skin cancer C44.90 and Former smoker Z87.891 Assessments Encounter Date Diagnosis (ICD Code) Assessment Notes Treatment Notes Treatment Clinical Notes 10/02/2023 Lymphoma (ICD-10 - C85.90) There is no sign of recurrent N/K T-cell lymphoma in any site at this time. Surveillance will continue at six-month intervals. He will return immediately for any symptoms of relapse. The nodular lesion on the right hoahaoism is in an area of previous disease but appears to be a basal cell. 10/02/2023 Overweight (ICD-10 - E66.3) His body mass index is 17. We discussed his diet and nutrition. We made a plan to lose weight at a rate of one half of a pound per week. 10/02/2023 Diabetes mellitus (ICD-10 - E11.9) His diabetes and he is compliant with his treatment. No change in his regimen as necessary. 10/02/2023 Vitamin B12 deficiency (ICD-10 - E53.8) Continues on replacement therapy. 10/02/2023 Essential hypertension (ICD-10 - I10) His blood pressure is well controlled today at 121/70 and no change in his regimen was needed. 10/02/2023 Atrial fibrillation (ICD-10 - I48.91) He is in a sinus rhythm today with a rate of about 80. His cardiovascular status stable.. 10/02/2023 Peripheral vascular disease in diabetes mellitus (ICD-10 - E11.51) He is currently able to conduct all of the activities of daily living without difficulty. He experiences some claudication with prolonged walking. He is seen by vascular surgery at regular intervals. 10/02/2023 Skin cancer (ICD-10 - C44.90) The lesion on the left upper eyelid will be removed June 26, 2023. 10/02/2023 Former smoker (ICD-10 - Z87.891) He remains abstinent. He oglesby a planned to prevent relapse and times of stress and illness. Plan Of Treatment Medication Medication Name Sig Start Date Stop Date Notes Amiodarone HCl 200 MG Oral Atorvastatin Calcium 40 MG Oral NovoLOG FlexPen 100 UNIT/ML Subcutaneous Aspir-81 Advair Diskus 100-50 MCG/ACT 1 puff Inha lation Twice a day B12 Folate Carboxymethylcellulose Sodium Terazosin HCl 5 MG 1 capsule at bedtime Orally Once a day Furosemide 40 MG TAKE 1 TABLET BY SHOBHA TH DAILY Oral Toprol XL 25 MG 1/2 tablet Orally Once a day 06/18/2022 Losartan Potassium 25 MG Oral Finasteride 5 MG 1 tablet Orally Once a day Lipitor 40 MG 1 tablet Orally Once a day Lantus 100 UNIT/ML 18Unit Subcutaneous Once a day NIFEdipine ER 30 MG TAKE 1 TABLET BY SHOBHA TH EVERY DAY Oral Fenofibrate 54 MG Oral Eliquis 5 MG 1 tablet Orally once a day Pending Test Test Name Order Date PROFILE, FASTING (COMPREHENSIVE METABOLI C) 10/02/2023 CBC WITH AUTO DIFF 10/02/2023 Lipid Panel 10/02/2023 Vitamin B12 10/02/2023 Microalbumin, Random 10/02/2023 Hemoglobin A1c 10/02/2023 Next Appt Details Follow Up: 6 Months, Reason: OV Progress Notes * Joel LOGANDOB:[birth year] (82 yo M)Acc No.[id number]:10/02/2023 Progress Notes Patient: Joel De Dios Provider: Kenia Parsons MD :1940 A ge:82 Y S ex:Male Date:10/02/2023 Address:[address] [place], [place] [id number] Pcp:Donte Powell MD Subjective: * Chief Complaints: * L ymphoma in remissionMultiple cutaneous squamous cell carcinomaAortic stenosisHypertensionPeripheral arterial diseaseAtrial fibrillationAnticoagulation * HPI: C OVID-19 Screening: He returns for a scheduled visit to monitor his and K T cell nasal lymphoma in remission. No sign of the disease was found today. He recently spent several nights at the [facility] with uncontrolled atrial fibrillation and aortic stenosis. His valve was studied at that time and a trans-arterial aortic valve replacement is being planned. A pacemaker has been inserted in the left anterior chest wall.Imaging and studies of the heart showed good contractility with a normal ejection fraction. Questions H ave you experienced fever, chills, cough, sore throat, shortness of breath, difficulty breathing, muscle aches, loss of taste or smell? N o H ave you been exposed to the virus within the last 10 days? N o H ave you travelled internationally in the last 10 days? N o H ave you been exposed to COVID-19 in the past? N o * ROS: G eneral/Constitutional: pain o nly normal aches and pains. C hills d enies.?Fatigue a dmits. F ever d enies. E NT: Decreased hearing m ild. R espiratory: Cough d enies. C ardiovascular: Chest pain with exertion d enies. D yspnea on exertion?denies. S hortness of breath d enies. G astrointestinal: Constipation o ccasional. D ecreased appetite d enies. D iarrhea d enies. H eartburn d enies. N ausea d enies. R ectal bleeding d enies. V omiting d enies. H ematology: bruising d enies. p etechiae d enies. S wollen glands n one have been noted. G enitourinary: Frequent urination o nce a night. M usculoskeletal: Muscle aches d enies. P ainful joints d enies. S ciatica d enies. W eakness d enies. S kin: Itching d enies. R vicki d enies. S kin lesion(s)?Several squamous cell carcinomas of the skin have been removed from the face and back and left arm. N eurologic: Difficulty speaking d enies. D izziness d enies.?Headache d enies. L ow back pain d enies. P sychiatric: Depressed mood d enies. * Medical History: * Surgical History: a ppendectomy as a child bypass graft left thigh repeat left leg femoral-popliteal bypass graft 01/07/2013one marrow biopsy and aspirate autologous stem cell transplant [facility] left femoral popliteal bypass surgery 04/2013vascular bypass surgery left lower extremity ngioplasty left leg [facility] 2017skin cancer removed from ear 2018Basal cell carcinoma of face 2021 * Hospitalization/Major Diagno stic Procedure: D enies Past Hospitalization * Family History: F ather: alive 95 yrs, skin cancer, , hyperlipidemia, diagnosed with Hyperlipidemia, Cancer.?Mother: 76 yrs, diabetes mellitus, liver cancer, diagnosed with Cancer, DM. 2 brother(s) , 1 sister(s) - healthy. 3 son(s) , 2 daughter(s) - healthy. . A brother and sister have diabetes. A sister had rheumatic fever as a child and has heart diseast. A son in infancy and a daughter has cancer. His has 5 children from a previous marriage. * Social History: T obacco Use: T obacco Use/Smoking P atient is a f ormer smoker H ow long has it been since you last smoked??> 10 years A dditional Findings: Tobacco Non-User E x-cigarette smoker H kaia has been to [place] for 22 years years and is retired. He was born in [place], [place]. He has 4 biological children. 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 * Medications: T akingCarboxymethylcellulose Sodium B12 Folate Advair Diskus 100-50 MCG/ACT Aerosol Powder Breath Activated 1 puff Inhalation Twice a dayFenofibrate 54 MG Tablet 1 tablet Orally Twice a dayEliquis 5 MG Tablet 1 tablet Orally Twice a dayNovoLOG FlexPen 100 UNIT/ML Solution Pen-injector Subcutaneous Finasteride 5 MG Tablet 1 tablet Orally 3 times a dayAtorvastatin Calcium 40 MG Tablet Oral Terazosin HCl 5 MG Capsule 1 capsule at bedtime Orally Once a dayFurosemide 40 MG Tablet 1 tablet Orally Twice a dayAmiodarone HCl 200 MG Tablet Oral Taking Carboxymethylcellulose Sodium Taking B12 Folate Taking Advair Diskus 100-50 MCG/ACT Aerosol Powder Breath Activated 1 puff Inhalation Twice a dayTaking Fenofibrate 54 MG Tablet 1 tablet Orally Twice a dayTaking Eliquis 5 MG Tablet 1 tablet Orally Twice a dayTaking NovoLOG FlexPen 100 UNIT/ML Solution Pen-injector Subcutaneous Taking Finasteride 5 MG Tablet 1 tablet Orally 3 times a dayTaking Atorvastatin Calcium 40 MG Tablet Oral Taking Terazosin HCl 5 MG Capsule 1 capsule at bedtime Orally Once a dayTaking Furosemide 40 MG Tablet 1 tablet Orally Twice a dayTaking Amiodarone HCl 200 MG Tablet Oral DiscontinuedAspir-81 NIFEdipine ER 30 MG Tablet Extended Release 24 Hour TAKE 1 TABLET BY MOUTH EVERY DAY Oral Toprol XL 25 MG Tablet Extended Release 24 Hour 1/2 tablet Orally Once a dayLosartan Potassium 25 MG Tablet Oral Lipitor 40 MG Tablet 1 tablet Orally Once a dayLantus 100 UNIT/ML Solution 18Unit Subcutaneous Once a dayMedication List reviewed and reconciled with the patientDiscontinued Aspir-81 Discontinued NIFEdipine ER 30 MG Tablet Extended Release 24 Hour TAKE 1 TABLET BY MOUTH EVERY DAY Oral Discontinued Toprol XL 25 MG Tablet Extended Release 24 Hour 1/2 tablet Orally Once a dayDiscontinued Losartan Potassium 25 MG Tablet Oral Discontinued Lipitor 40 MG Tablet 1 tablet Orally Once a dayDiscontinued Lantus 100 UNIT/ML Solution 18Unit Subcutaneous Once a dayMedication List reviewed and reconciled with the patient * Allergies: W arfarin Sodium: rash - Side EffectsShellfish-derived Products: Throat closes - Side EffectsAlmond (Diagnostic)no[Allergies Verified] Objective: * Vitals: H t: 67, Wt:175, BMI:27.41, BP:121/70, HR:63, Temp:97.0, Wt-k.38. * P ast Orders: Lab:Lactate Dehydrogenase * Order Date 09/10/2023 05/26/2023 01/29/2023 Lactate Dehydrogenase 216 (Ref Range: 118-273 U/L) 183 (Ref Range: 118-273 U/L) 182 (Ref Range: 118-273 U/L) * Lab:Comprehensive Met. Panel * Order Date 09/10/2023 06/13/2022 12/17/2021 Sodium 138 (Ref Range: 135-145 mmol/L) 140 (Ref Range: 135-145 mmol/L) 139 (Ref Range: 135-145 mmol/L) Bilirubin Total 0.4 (Ref Range: 0.0-1.0 mg/dL) 0.6 (Ref Range: 0.0-1.0 mg/dL) 0.2 (Ref Range: 0.0-1.0 mg/dL) Aspartate Amino Transferase 45 H (Ref Range: 5-37 U/L) 30 (Ref Range: 5-37 U/L) 24 (Ref Range: 5-37 U/L) Alanine Aminotransferase 42 H (Ref Range: 0-40 U/L) 28 (Ref Range: 0-40 U/L) 18 (Ref Range: 0-40 U/L) Total Protein 7.7 (Ref Range: 6.5-8.0 g/dL) 6.8 (Ref Range: 6.5-8.0 g/dL) 6.7 (Ref Range: 6.5-8.0 g/dL) Albumin Level 3.6 (Ref Range: 3.5-5.0 g/dL) 3.8 (Ref Range: 3.5-5.0 g/dL) 3.8 (Ref Range: 3.5-5.0 g/dL) Alkaline Phosphatase 64 (Ref Range: 39-117 U/L) 64 (Ref Range: 39-117 U/L) 64 (Ref Range: 39-117 U/L) Potassium 4.0 (Ref Range: 3.3-5.1 mmol/L) 4.7 (Ref Range: 3.3-5.1 mmol/L) 4.3 (Ref Range: 3.3-5.1 mmol/L) Chloride 107 (Ref Range: 96-108 mmol/L) 110 H (Ref Range: 96-108 mmol/L) 108 (Ref Range: 96-108 mmol/L) Carbon Dioxide 25 (Ref Range: 22-29 mmol/L) 19 L (Ref Range: 22-29 mmol/L) 20 L (Ref Range: 22-29 mmol/L) Anion Gap 10 L (Ref Range: 12-20) 16 (Ref Range: 12-20) 15 (Ref Range: 12-20) Blood Urea Nitrogen 29 H (Ref Range: 9-16 mg/dL) 27 H (Ref Range: 9-16 mg/dL) 27 H (Ref Range: 9-16 mg/dL) Creatinine 1.49 H (Ref Range: 0.5-1.4 mg/dL) 1.31 (Ref Range: 0.5-1.4 mg/dL) 1.48 H (Ref Range: 0.5-1.4 mg/dL) Estimated Glomerular Filt Rate 45 53 46 Glucose Random 136 H (Ref Range: 60-115 mg/dL) 181 H (Ref Range: 60-115 mg/dL) 116 H (Ref Range: 60-115 mg/dL) Calcium 9.6 (Ref Range: 8.4-10.2 mg/dL) 9.2 (Ref Range: 8.4-10.2 mg/dL) 8.8 (Ref Range: 8.4-10.2 mg/dL) * Lab:Erythrocyte Sedimentatio n Rate * Order Date 09/10/2023 05/26/2023 01/29/2023 Erythrocyte Sedimentation Rate 53 H (Ref Range: 0-15 MM/HR) 54 H (Ref Range: 0-15 MM/HR) 34 H (Ref Range: 0-15 MM/HR) * Lab:Complete Blood Count Aut o Diff * Order Date 09/10/2023 01/29/2023 06/13/2022 White Blood Count 5.6 (Ref Range: 4.8-10.8 X10*3/uL) 6.7 (Ref Range: 4.8-10.8 X10*3/uL) 5.4 (Ref Range: 4.8-10.8 X10*3/uL) Red Blood Count 3.82 L (Ref Range: 4.60-5.80 X10*6/uL) 4.05 L (Ref Range: 4.60-5.80 X10*6/uL) 3.95 L (Ref Range: 4.60-5.80 X10*6/uL) Hemoglobin 11.7 L (Ref Range: 14.0-18.0 g/dl) 12.6 L (Ref Range: 14.0-18.0 g/dl) 12.7 L (Ref Range: 14.0-18.0 g/dl) Hematocrit 36.0 L (Ref Range: 42.0-52.0 %) 40.6 L (Ref Range: 42.0-52.0 %) 38.3 L (Ref Range: 42.0-52.0 %) Mean Corpuscular Volume 94.2 (Ref Range: 80.0-98.0 fL) 100.2 H (Ref Range: 80.0-98.0 fL) 97.0 (Ref Range: 80.0-98.0 fL) Mean Corpuscular Hemoglobin 30.6 (Ref Range: 27.0-33.0 pg) 31.1 (Ref Range: 27.0-33.0 pg) 32.2 (Ref Range: 27.0-33.0 pg) Mean Corpuscular HGB Conc 32.5 (Ref Range: 31.0-36.0 g/dl) 31.0 (Ref Range: 31.0-36.0 g/dl) 33.2 (Ref Range: 31.0-36.0 g/dl) Red Cell Distribution Width 14.6 (Ref Range: 11.0-16.0 %) 13.5 (Ref Range: 11.0-16.0 %) 14.2 (Ref Range: 11.0-16.0 %) Platelet Count 198 (Ref Range: 160-400 X10*3/uL) 182 (Ref Range: 160-400 X10*3/uL) 144 L (Ref Range: 160-400 X10*3/uL) Mean Platelet Volume 11.1 (Ref Range: 9.4-12.4 fL) 10.8 (Ref Range: 9.4-12.4 fL) 11.0 (Ref Range: 9.4-12.4 fL) Neutrophils Percent Auto 68.7 (Ref Range: 45-73 %) 67.8 (Ref Range: 45-73 %) 64.8 (Ref Range: 45-73 %) Imm Gran Pct Auto 0.7 H (Ref Range: 0.0-0.4 %) 0.6 H (Ref Range: 0.0-0.4 %) 0.7 H (Ref Range: 0.0-0.4 %) Lymphocytes Percent Auto 19.9 L (Ref Range: 20-40 %) 20.7 (Ref Range: 20-40 %) 23.5 (Ref Range: 20-40 %) Monocytes Percent Auto 9.7 (Ref Range: 2-11 %) 9.3 (Ref Range: 2-11 %) 9.3 (Ref Range: 2-11 %) Eosinophils Percent Auto 0.5 (Ref Range: 0-4 %) 1.1 (Ref Range: 0-4 %) 1.1 (Ref Range: 0-4 %) Basophils Percent Auto 0.5 (Ref Range: 0-2 %) 0.5 (Ref Range: 0-2 %) 0.6 (Ref Range: 0-2 %) NRBC Pct Auto 0.0 (Ref Range: 0.0-0.2 /100WBC) 0.0 (Ref Range: 0.0-0.2 /100WBC) 0.0 (Ref Range: 0.0-0.2 /100WBC) Neutrophils Absolute Auto 3.8 (Ref Range: 2.0-8.3 x10*3/uL) 4.5 (Ref Range: 2.0-8.3 x10*3/uL) 3.5 (Ref Range: 2.0-8.3 x10*3/uL) Imm Gran Abs Auto 0.04 H (Ref Range: 0.00-0.03 X10*3/uL) 0.04 H (Ref Range: 0.00-0.03 X10*3/uL) 0.04 H (Ref Range: 0.00-0.03 X10*3/uL) Lymphocytes Absolute Auto 1.1 L (Ref Range: 1.2-4.9 X10*3/uL) 1.4 (Ref Range: 1.2-4.9 X10*3/uL) 1.3 (Ref Range: 1.2-4.9 X10*3/uL) Monocytes Absolute Auto 0.5 (Ref Range: 0.1-1.2 X10*3/uL) 0.6 (Ref Range: 0.1-1.2 X10*3/uL) 0.5 (Ref Range: 0.1-1.2 X10*3/uL) Eosinophils Absolute Auto 0.0 (Ref Range: 0.0-0.4 X10*3/uL) 0.1 (Ref Range: 0.0-0.4 X10*3/uL) 0.1 (Ref Range: 0.0-0.4 X10*3/uL) Basophils Absolute Auto 0.0 (Ref Range: 0.0-0.2 X10*3/uL) 0.0 (Ref Range: 0.0-0.2 X10*3/uL) 0.0 (Ref Range: 0.0-0.2 X10*3/uL) NRBC Abs Auto 0.000 (Ref Range: 0.0-0.012 X10*3/uL) 0.000 (Ref Range: 0.0-0.012 X10*3/uL) 0.000 (Ref Range: 0.0-0.012 X10*3/uL) * Examination: G eneral Examination: GENERAL APPEARANCE: p leasant, well nourished, well developed, in no acute distress, calm and relaxed , overweight, , man. HEAD: a traumatic, normocephalic. EYES: e magdalena, perrla, anicteric, conjugate. EARS: n ormal. NOSE: s eptum intact, Surface scarring with skin graft without recurrent disease. ORAL CAVITY: n ormal, unremarkable. NECK/THYROID: n o jugular venous distention, no carotid bruit, thyroid normal. LYMPH NODES: n o enlarged lymph nodes,spleen normal. SKIN: n o suspicious lesions, anicteric, Numerous healed skin cancer excision scars. HEART: n o clicks, gallops, Faint 1/6 systolic m urmur, or rubs, regular rhythm, S1, S2 normal, no s3, or vascular bruits. LUNGS: c lear to auscultation . BREASTS: no masses palpable bilaterally. ABDOMEN: b owel sounds normal, no ascites, no organomegaly, no mass , overweight. RECTAL EXAM: n ot examined. MUSCULOSKELETAL: e xtremities unremarkable, no clubbing, cyanosis or edema. PERIPHERAL PULSES: n ormal. NEUROLOGIC: a lert and oriented, cranial nerves 2-12 grossly intact, deep tendon reflexes 2+ symmetrical, motor strength normal upper and lower extremities, sensory exam intact. PSYCH: a lert, oriented. Assessment: * Assessment: 1. L ymphoma - C85.90 (Primary), There is no sign of recurrent N/K T-cell lymphoma in any site at this time. Surveillance will continue at six-month intervals. He will return immediately for any symptoms of relapse. The nodular lesion on the right hoahaoism is in an area of previous disease but appears to be a basal cell. 2 . O verweight - E66.3, His body mass index is 17. We discussed his diet and nutrition. We made a plan to lose weight at a rate of one half of a pound per week. 3 . D iabetes mellitus - E11.9, His diabetes and he is compliant with his treatment. No change in his regimen as necessary. 4 . V itamin B12 deficiency - E53.8, Continues on replacement therapy. 5 . E ssential hypertension - I10, His blood pressure is well controlled today at 121/70 and no change in his regimen was needed. 6 . A trial fibrillation - I48.91, He is in a sinus rhythm today with a rate of about 80. His cardiovascular status stable.. 7 . P eripheral vascular disease in diabetes mellitus - E11.51, He is currently able to conduct all of the activities of daily living without difficulty. He experiences some claudication with prolonged walking. He is seen by vascular surgery at regular intervals. 8 . S kin cancer - C44.90, The lesion on the left upper eyelid will be removed June 26, 2023. 9 . F ormer smoker - Z87.891, He remains abstinent. He oglesby a planned to prevent relapse and times of stress and illness. Plan: * Treatment: 2. O verweight L AB: PROFILE, FASTING (COMPREHENSIVE METABOLIC) L AB: CBC WITH AUTO DIFF L AB: Lipid Panel L AB: Vitamin B12 L AB: Microalbumin, Random L AB: Hemoglobin A1c 3. D iabetes mellitus L AB: PROFILE, FASTING (COMPREHENSIVE METABOLIC) L AB: CBC WITH AUTO DIFF L AB: Lipid Panel L AB: Vitamin B12 L AB: Microalbumin, Random L AB: Hemoglobin A1c 4. V itamin B12 deficiency L AB: PROFILE, FASTING (COMPREHENSIVE METABOLIC) L AB: CBC WITH AUTO DIFF L AB: Lipid Panel L AB: Vitamin B12 L AB: Microalbumin, Random L AB: Hemoglobin A1c 5. O thers Continue Aspir-81; C ontinue Advair Diskus Aerosol Powder Breath Activated, 100-50 MCG/ACT, 1 puff, Inhalation, Twice a day; C ontinue Fenofibrate Tablet, 54 MG, Oral; C ontinue Toprol XL Tablet Extended Release 24 Hour, 25 MG, 1/2 tablet, Orally, Once a day; C ontinue Losartan Potassium Tablet, 25 MG, Oral. * Procedure Codes: * Preventive Medicine: Counseling: C are goal follow-up plan: Counseling for abnormal BMI given Y es Above Normal BMI Follow-up D ietary management education, guidance, and counseling, Dietary needs education S moking/Tobacco Use Patient counseled on the dangers of tobacco use and urged to quit. 0 10/02/2023 DM Care Plan: P atient Lifestyle Goals P atient wants to be able to manage diabetes without too much effort. T reatment Goals B lood Sugars less than < 115, HbA1C < 7.0. B arriers n o barriers. S elf-Managment Goals W ork on weight loss, with a goal of losing 1 lb per week. * Follow Up: 6 Months (Reason: OV) * Images: * Sign off status: Completed true * Provider: Kenia Parsons MD Date: 0 10/02/2023 Generated for Pj manning/Bran/eTransmitting on: 03/27/2024 03:39 PM EST History and Physical Notes * HPI (History of Present Illness) Category Sub-Category Detail Notes COVID-19 Screening Questions Have you had any new onset fever, chills, cough, congestion, sore throat, shortness of breath, muscle aches?: No Have you been exposed to the virus withi n the last 10 days?: No Have you travelled internationally in [facility] last 10 days?: No Have you been exposed to COVID-19 in the past?: No Examination Category Sub-Category Detail Notes General Examination GENERAL APPEARANCE: pleasant , well nourished, well developed, in no acute distress, calm and relaxed , overweight, , man HEAD: atraumatic, normocep halic EYES: eomi, perrla, anicte nafisa, conjugate EARS: normal NOSE: septum intact, Surfa ce scarring with skin graft without recurrent disease NECK/THYROID: no jugular venous di stention, no carotid bruit, thyroid normal HEART: no clicks, gallops, Faint 1/6 systolic murmur, or rubs, regular rhythm, S1, S2 normal, no s3, or vascular bruits LUNGS: clear to auscultatio n ABDOMEN: bowel sounds normal, no ascites, no organomegaly, no mass , overweight NEUROLOGIC: alert and oriented, cranial nerves 2-12 grossly intact, deep tendon reflexes 2+ symmetrical, motor strength normal upper and lower extremities, sensory exam intact SKIN: no suspicious lesion s, anicteric, Numerous healed skin cancer excision scars PERIPHERAL PULSES: normal BREASTS: no masses palpable b ilaterally MUSCULOSKELETAL: extremities unremark able, no clubbing, cyanosis or edema LYMPH NODES: no enlarged lymph no marcie,spleen normal RECTAL EXAM: not examined PSYCH: alert, oriented ORAL CAVITY: normal, unremarkable
--- OUTSIDE RECORDS SUMMARY | 2024-04-05 12:00 | XMS_ITS ---
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 Dean Hopson III Unavailable REASON FOR VISIT Followup Encounters Encounter Location Date Provider Diagnosis Dean Parsons III, MD [address] [place] [address] [place] [address] 04/05/2024 Dean Parsons Plan Of Treatment No Information Progress Notes * Joel LOGAN EvyDOB:[birth year] (84 yo M)Acc No.[id number]:04/05/2024 Progress Notes Patient: Joel WANG Provider: Kenia Parsons MD :1940 A ge:83 Y S ex:Male Date:04/05/2024 Address:[address] [place] [address], [address] Pcp:Donte Powell MD Subjective: * Chief Complaints: * 1 . Followup. * Medical History: Objective: * Vitals: Assessment: Plan: * Treatment: * Images: * The named appointment provid er may or may not be the originator of this progress note, and it is not deemed complete until electronically signed by the appointment provider. Sign off status: Pending * Provider: Kenia Parsons MD Date: 0 04/05/2024 Generated for Printi ng/Faxing/eTransmitting on: 03/27/2024 03:39 PM EST
--- OUTSIDE RECORDS SUMMARY | 2024-05-04 04:30 | XMS_ITS ---
Author Organization Dean Parsons III, MD Address [address] [place] [address] Care Team Providers Care Side Stitcher Name Role Phone Donte Powell MD Primary Care Provider Dr. Dean Hopson III Unavailable [phone] Allergies Allergen (clinical drug ingredient) Drug/Non Drug Allergy documented on EMR Reaction Allergy Type Onset Date Status almond allergenic extract [place] (Diagnostic) Unknown Drug Allergy Active Shellfish (FN) Shellfish-derived Products Throat closes Drug Allergy Active warfarin Warfarin Sodium rash Drug Allergy A ctive REASON FOR VISIT Recent episode of pneumonia, NK T-cell lymphoma, Diabetes, Hypertension, Hyperlipidemia, Peripheralarterial disease, Atrial fibrillation, Multiple skin cancers, Chronic anticoagulation Medications Medication SIG (Take, Route, Frequency, Duration) Notes Start Date End Date Status Eliquis 5 MG 1 tablet Orally once a day Active Fenofibrate 54 MG Oral Ac tive Losartan Potassium 25 MG Oral Active Toprol XL 25 MG 1/2 tablet Orally On a day 06/18/2022 Active Lipitor 40 MG 1 tablet Orally Once a day Active Aspir-81 Active Amiodarone HCl 200 MG Oral Active Atorvastatin Calcium 40 MG Oral Active NIFEdipine ER 30 MG TAKE 1 TABLET BY SHOBHA TH EVERY DAY Oral Active Advair Diskus 100-50 MCG/ACT 1 puff Inha lation Twice a day Active NovoLOG FlexPen 100 UNIT/ML Subcutaneous Active B12 Folate Active Terazosin HCl 5 MG 1 capsule at bedtime Orally Once a day Active Carboxymethylcellulose Sodium Active Furosemide 40 MG TAKE 1 TABLET BY SHOBHA TH DAILY Oral Active Lantus 100 UNIT/ML 18Unit Subcutaneous Once a day Active Finasteride 5 MG 1 tablet Orally Once a day Active Social History Tobacco Use: [...] Problem Status W/U Status Risk Notes Problem [id number] Acute kidney injury (N17.9) Active confirmed His BUN and creatinine are substantially elevated from baseline on the most recent blood work from the end of March. This was in the context of an episode of pneumonia. He has been referred back to primary care for management of the residual pneumonia and the renal function. 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 Surveillance will continue at six-month intervals. He will return immediately for any symptoms of relapse. The nodular lesion on the right hindu is in an area of previous disease but appears to be a basal cell. 05/04/2024 Overweight (ICD-10 - E66.3) His body mass index is 17. We discussed his diet and nutrition. We made a plan to lose weight at a rate of one half of a pound per week. 05/04/2024 Diabetes mellitus (ICD-10 - E11.9) His diabetes and he is compliant with his treatment. No change in his regimen as necessary. 05/04/2024 Hyperlipemia (ICD-10 - E78.5) His lipids have been well controlled. No change in his regimen was needed. His statin therapy was continued. 05/04/2024 Essential hypertension (ICD-10 - I10) His blood pressure is well controlled today and no change in his regimen was needed. 05/04/2024 History of pneumonia (ICD-10 - Z87.01) She recently had a visit to a local emergency room for pneumonia which was treated as an outpatient. He is still short of breath with exertion but substantially improved. He has been referred back to primary care for management. 05/04/2024 Acute kidney injury (ICD-10 - N17.9) His BUN and creatinine are substantially elevated from baseline on the most recent blood work from the end of March. This was in the context of an episode of pneumonia. He has been referred back to primary care for management of the residual pneumonia and the renal function. 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 There is an extensive procedure and skin grafting, which is now healing. There is no sign of residual disease. 05/04/2024 Basal cell carcinoma of face (ICD-10 - C44.310) Basal cell carcinoma on his chin has been removed and the scar is healing. 05/04/2024 Atrial fibrillation (ICD-10 - I48.91) He is in a sinus rhythm today with a rate of about 80. His cardiovascular status stable.. 05/04/2024 Former smoker (ICD-10 - Z87.891) He remains abstinent. He oglesby a planned to prevent relapse and times of stress and illness. Plan Of Treatment Medication Medication Name Sig Start Date Stop Date Notes Eliquis 5 MG 1 tablet Orally once a day Fenofibrate 54 MG Oral Losartan Potassium 25 MG Oral Toprol XL 25 MG 1/2 tablet Orally Once a day 06/18/2022 Lipitor 40 MG 1 tablet Orally Once a day Aspir-81 Amiodarone HCl 200 MG Oral Atorvastatin Calcium 40 MG Oral NIFEdipine ER 30 MG TAKE 1 TABLET BY SHOBHA TH EVERY DAY Oral Advair Diskus 100-50 MCG/ACT 1 puff Inha lation Twice a day NovoLOG FlexPen 100 UNIT/ML Subcutaneous B12 Folate Terazosin HCl 5 MG 1 capsule at bedtime Orally Once a day Carboxymethylcellulose Sodium Furosemide 40 MG TAKE 1 TABLET BY SHOBHA TH DAILY Oral Lantus 100 UNIT/ML 18Unit Subcutaneous Once a day Finasteride 5 MG 1 tablet Orally Once a day Next Appt Details Follow Up: 6 Months, 6 month s, Reason: OV no tests, Routine check-up Progress Notes * Joel LOGAN JDOB:[birth year] (83 yo M)Acc No.[id number]:05/04/2024 Progress Notes Patient: Joel WANG Provider: Kenia Parsons MD :1940 A ge:83 Y S ex:Male Date:05/04/2024 Address:[address] [place] [address] Pcp:Donte Powell MD Subjective: * Chief Complaints: * R ecent episode of pneumoniaNK T-cell lymphomaDiabetesHypertensionHyperlipidemiaPeripheral arterial diseaseAtrial fibrillationMultiple skin cancersChronic anticoagulation * HPI: C OVID-19 Screening: Questions H ave you had any new onset fever, chills, cough, congestion, sore throat, shortness of breath, muscle aches? Y es * : The patient, an 83-year-old male, has a history of NKT cell lymphoma, which has been treated and is currently not showing any signs. He also has diabetes, with an A1C of 8.2, indicating slightly poor control. He recently had pneumonia and has been recovering from it. He also has a history of leg circulation problems, but he is currently able to walk around. He is on blood thinners and has not reported any bleeding. He also reported feeling weak and sick after a recent hospital discharge. Blood Sugar Level is 209. * ROS: G eneral/Constitutional: pain o nly normal aches and pains. C hills d enies.?Fatigue a dmits. F ever d enies. O phthalmologic: Admits D ischarge. E NT: Decreased hearing i n both ears. R espiratory: Cough d enies. C ardiovascular: Chest pain with exertion d enies. D yspnea on exertion?denies. S hortness of breath w ith exertion. G astrointestinal: Constipation d enies. D ecreased appetite d enies.?Diarrhea d enies. H eartburn d enies. N ausea d enies. R ectal bleeding?denies. V omiting d enies. H ematology: bruising d enies. p etechiae d enies. S wollen glands n one have been noted. G enitourinary: Frequent urination o nce a night. M usculoskeletal: Muscle aches d enies. P ainful joints d enies. S ciatica d enies. W eakness d enies. S kin: Itching d enies. R vicki d enies. S kin lesion(s)?denies. N eurologic: Difficulty speaking d enies. D izziness d enies.?Headache d enies. L ow back pain d enies. P sychiatric: Depressed mood d enies. * Medical History: * Surgical History: a ppendectomy as a child bypass graft left thigh repeat left leg femoral-popliteal bypass graft 01/07/2013one marrow biopsy and aspirate autologous stem cell transplant [facility] left femoral popliteal bypass surgery 04/2013vascular bypass surgery left lower extremity ngioplasty left leg [facility] 2017skin cancer removed from ear 2018Basal cell carcinoma of face 2021No history * Hospitalization/Major Diagno stic Procedure: N o history * Family History: F ather: alive 95 yrs, skin cancer, , hyperlipidemia, diagnosed with Hyperlipidemia, Cancer.?Mother: 76 yrs, diabetes mellitus, liver cancer, diagnosed with DM, Cancer. 2 brother(s) , 1 sister(s) - healthy. [...] and is retired. He was born in [place], [place]. He has 4 biological children. 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 * Medications: T akingAspir-81 Advair Diskus 100-50 MCG/ACT Aerosol Powder Breath Activated 1 puff Inhalation Twice a day NIFEdipine ER 30 MG Tablet Extended Release 24 Hour TAKE 1 TABLET BY MOUTH EVERY DAY Oral Fenofibrate 54 MG Tablet Oral Eliquis 5 MG Tablet 1 tablet Orally once a day Toprol XL 25 MG Tablet Extended Release 24 Hour 1/2 tablet Orally Once a day Losartan Potassium 25 MG Tablet Oral Lipitor 40 MG Tablet 1 tablet Orally Once a day Lantus 100 UNIT/ML Solution 18Unit Subcutaneous Once a day Finasteride 5 MG Tablet 1 tablet Orally Once a day Terazosin HCl 5 MG Capsule 1 capsule at bedtime Orally Once a day Furosemide 40 MG Tablet TAKE 1 TABLET BY MOUTH DAILY Oral Carboxymethylcellulose Sodium B12 Folate NovoLOG FlexPen 100 UNIT/ML Solution Pen-injector Subcutaneous Atorvastatin Calcium 40 MG Tablet Oral Amiodarone HCl 200 MG Tablet Oral Medication List reviewed and reconciled with the patientTaking Aspir-81 Taking Advair Diskus 100-50 MCG/ACT Aerosol Powder Breath Activated 1 puff Inhalation Twice a day Taking NIFEdipine ER 30 MG Tablet Extended Release 24 Hour TAKE 1 TABLET BY MOUTH EVERY DAY Oral Taking Fenofibrate 54 MG Tablet Oral Taking Eliquis 5 MG Tablet 1 tablet Orally once a day Taking Toprol XL 25 MG Tablet Extended Release 24 Hour 1/2 tablet Orally Once a day Taking Losartan Potassium 25 MG Tablet Oral Taking Lipitor 40 MG Tablet 1 tablet Orally Once a day Taking Lantus 100 UNIT/ML Solution 18Unit Subcutaneous Once a day Taking Finasteride 5 MG Tablet 1 tablet Orally Once a day Taking Terazosin HCl 5 MG Capsule 1 capsule at bedtime Orally Once a day Taking Furosemide 40 MG Tablet TAKE 1 TABLET BY MOUTH DAILY Oral Taking Carboxymethylcellulose Sodium Taking B12 Folate Taking NovoLOG FlexPen 100 UNIT/ML Solution Pen-injector Subcutaneous Taking Atorvastatin Calcium 40 MG Tablet Oral Taking Amiodarone HCl 200 MG Tablet Oral Medication List reviewed and reconciled with the patient * Allergies: W arfarin Sodium: rash - Side EffectsShellfish-derived Products: Throat closes - Side EffectsAlmond (Diagnostic)no[Allergies Verified] Objective: * Vitals: H t: 67, Wt:177, BMI:27.72, BP:136/47, HR:83, Temp:97.9, Wt-k.29. All. * P ast Orders: Lab:Hemoglobin A1c * Collection Date 04/14/2024 12/17/2021 12/15/2020 Collection Time 07:38 AM 01:16 PM 09:35 AM Order Date 04/14/2024 12/17/2021 12/15/2020 Hemoglobin A1c % 8.2 H (Ref Range: <6.0 %) 7.2 (Ref Range: %) 10.5 (Ref Range: %) Estimated Average Glucose 189 (Ref Range: mg/dL) 160 (Ref Range: mg/dL) 255 (Ref Range: mg/dL) * Lab:Complete Blood Count Aut o Diff * Collection Date 04/14/2024 09/10/2023 01/29/2023 Collection Time 07:38 AM 07:17 AM 07:05 AM Order Date 04/14/2024 09/10/2023 01/29/2023 White Blood Count 4.6 L (Ref Range: 4.8-10.8 X10*3/uL) 5.6 (Ref Range: 4.8-10.8 X10*3/uL) 6.7 (Ref Range: 4.8-10.8 X10*3/uL) Red Blood Count 3.52 L (Ref Range: 4.60-5.80 X10*6/uL) 3.82 L (Ref Range: 4.60-5.80 X10*6/uL) 4.05 L (Ref Range: 4.60-5.80 X10*6/uL) Hemoglobin 10.9 L (Ref Range: 14.0-18.0 g/dl) 11.7 L (Ref Range: 14.0-18.0 g/dl) 12.6 L (Ref Range: 14.0-18.0 g/dl) Hematocrit 34.0 L (Ref Range: 42.0-52.0 %) 36.0 L (Ref Range: 42.0-52.0 %) 40.6 L (Ref Range: 42.0-52.0 %) Mean Corpuscular Volume 96.6 (Ref Range: 80.0-98.0 fL) 94.2 (Ref Range: 80.0-98.0 fL) 100.2 H (Ref Range: 80.0-98.0 fL) Mean Corpuscular Hemoglobin 31.0 (Ref Range: 27.0-33.0 pg) 30.6 (Ref Range: 27.0-33.0 pg) 31.1 (Ref Range: 27.0-33.0 pg) Mean Corpuscular HGB Conc 32.1 (Ref Range: 31.0-36.0 g/dl) 32.5 (Ref Range: 31.0-36.0 g/dl) 31.0 (Ref Range: 31.0-36.0 g/dl) Red Cell Distribution Width 16.3 H (Ref Range: 11.0-16.0 %) 14.6 (Ref Range: 11.0-16.0 %) 13.5 (Ref Range: 11.0-16.0 %) Platelet Count 210 (Ref Range: 160-400 X10*3/uL) 198 (Ref Range: 160-400 X10*3/uL) 182 (Ref Range: 160-400 X10*3/uL) Mean Platelet Volume 10.7 (Ref Range: 9.4-12.4 fL) 11.1 (Ref Range: 9.4-12.4 fL) 10.8 (Ref Range: 9.4-12.4 fL) Neutrophils Percent Auto 64.4 (Ref Range: 45-73 %) 68.7 (Ref Range: 45-73 %) 67.8 (Ref Range: 45-73 %) Imm Gran Pct Auto 0.7 H (Ref Range: 0.0-0.4 %) 0.7 H (Ref Range: 0.0-0.4 %) 0.6 H (Ref Range: 0.0-0.4 %) Lymphocytes Percent Auto 20.4 (Ref Range: 20-40 %) 19.9 L (Ref Range: 20-40 %) 20.7 (Ref Range: 20-40 %) Monocytes Percent Auto 13.4 H (Ref Range: 2-11 %) 9.7 (Ref Range: 2-11 %) 9.3 (Ref Range: 2-11 %) Eosinophils Percent Auto 0.7 (Ref Range: 0-4 %) 0.5 (Ref Range: 0-4 %) 1.1 (Ref Range: 0-4 %) Basophils Percent Auto 0.4 (Ref Range: 0-2 %) 0.5 (Ref Range: 0-2 %) 0.5 (Ref Range: 0-2 %) NRBC Pct Auto 0.0 (Ref Range: 0.0-0.2 /100WBC) 0.0 (Ref Range: 0.0-0.2 /100WBC) 0.0 (Ref Range: 0.0-0.2 /100WBC) Neutrophils Absolute Auto 2.9 (Ref Range: 2.0-8.3 x10*3/uL) 3.8 (Ref Range: 2.0-8.3 x10*3/uL) 4.5 (Ref Range: 2.0-8.3 x10*3/uL) Imm Gran Abs Auto 0.03 (Ref Range: 0.00-0.03 X10*3/uL) 0.04 H (Ref Range: 0.00-0.03 X10*3/uL) 0.04 H (Ref Range: 0.00-0.03 X10*3/uL) Lymphocytes Absolute Auto 0.9 L (Ref Range: 1.2-4.9 X10*3/uL) 1.1 L (Ref Range: 1.2-4.9 X10*3/uL) 1.4 (Ref Range: 1.2-4.9 X10*3/uL) Monocytes Absolute Auto 0.6 (Ref Range: 0.1-1.2 X10*3/uL) 0.5 (Ref Range: 0.1-1.2 X10*3/uL) 0.6 (Ref Range: 0.1-1.2 X10*3/uL) Eosinophils Absolute Auto 0.0 (Ref Range: 0.0-0.4 X10*3/uL) 0.0 (Ref Range: 0.0-0.4 X10*3/uL) 0.1 (Ref Range: 0.0-0.4 X10*3/uL) Basophils Absolute Auto 0.0 (Ref Range: 0.0-0.2 X10*3/uL) 0.0 (Ref Range: 0.0-0.2 X10*3/uL) 0.0 (Ref Range: 0.0-0.2 X10*3/uL) NRBC Abs Auto 0.000 (Ref Range: 0.0-0.012 X10*3/uL) 0.000 (Ref Range: 0.0-0.012 X10*3/uL) 0.000 (Ref Range: 0.0-0.012 X10*3/uL) * Lab:Idalia Dominguez l Fast * Collection Date 04/14/2024 01/29/2023 Collection Time 07:38 AM 07:05 AM Order Date 04/14/2024 01/29/2023 Sodium 135 (Ref Range: 135-145 mmol/L) 140 (Ref Range: 135-145 mmol/L) Bilirubin Total 0.5 (Ref Range: 0.0-1.0 mg/dL) 0.6 (Ref Range: 0.0-1.0 mg/dL) Aspartate Amino Transferase 62 H (Ref Range: 5-37 U/L) 24 (Ref Range: 5-37 U/L) Alanine Aminotransferase 55 H (Ref Range: 0-40 U/L) 21 (Ref Range: 0-40 U/L) Total Protein 7.3 (Ref Range: 6.5-8.0 g/dL) 7.4 (Ref Range: 6.5-8.0 g/dL) Albumin Level 3.2 L (Ref Range: 3.5-5.0 g/dL) 3.9 (Ref Range: 3.5-5.0 g/dL) Alkaline Phosphatase 70 (Ref Range: 39-117 U/L) 68 (Ref Range: 39-117 U/L) Potassium 4.1 (Ref Range: 3.3-5.1 mmol/L) 4.2 (Ref Range: 3.3-5.1 mmol/L) Chloride 104 (Ref Range: 96-108 mmol/L) 109 H (Ref Range: 96-108 mmol/L) Carbon Dioxide 21 L (Ref Range: 22-29 mmol/L) 24 (Ref Range: 22-29 mmol/L) Anion Gap 14 (Ref Range: 12-20) 11 L (Ref Range: 12-20) Blood Urea Nitrogen 47 H (Ref Range: 9-16 mg/dL) 16 (Ref Range: 9-16 mg/dL) Creatinine 2.11 H (Ref Range: 0.5-1.4 mg/dL) 1.23 (Ref Range: 0.5-1.4 mg/dL) Estimated Glomerular Filt Rate 30 56 Glucose Fasting 209 H (Ref Range: 60-99 mg/dL) 143 H (Ref Range: 60-99 mg/dL) Calcium 9.1 (Ref Range: 8.4-10.2 mg/dL) 9.4 (Ref Range: 8.4-10.2 mg/dL) * Lab:Lipid Panel * Collection Date 04/14/2024 01/29/2023 Collection Time 07:38 AM 07:05 AM Order Date 04/14/2024 01/29/2023 Triglycerides 106 (Ref Range: <150 mg/dL) 94 (Ref Range: <150 mg/dL) Cholesterol 129 (Ref Range: <200 mg/dL) 116 (Ref Range: <200 mg/dL) LDL Cholesterol Calculated 70 (Ref Range: <100 mg/dL) 65 (Ref Range: <100 mg/dL) HDL Cholesterol 38 L (Ref Range: >40 mg/dL) 33 L (Ref Range: >40 mg/dL) ???Lab:Vitamin B12 (Order Date - 04/14/2024) (Collection Date & Time - 04/14/2024 07:38 AM)?ValueReference Range?Vitamin [id number] - pg/mL * Lab:Microalbumin, Random * Collection Date 04/14/2024 12/17/2021 12/15/2020 Collection Time 07:19 AM 01:07 PM 09:40 AM Order Date 04/14/2024 12/17/2021 12/15/2020 Creatinine Urine 45.72 (Ref Range: mg/dL) 26.03 (Ref Range: mg/dL) 133.96 (Ref Range: mg/dL) Microalbumin Urine < 5.0 (Ref Range: mg/L) 5.0 (Ref Range: mg/L) 30.0 (Ref Range: mg/L) Microalbum Creatinine Ratio Ur TNP (Ref Range: <30 ug/mg cr) 19.2 (Ref Range: ug/mg cr) 22.3 (Ref Range: ug/mg cr) ???Imaging:XR chest 2V (Order Date - 04/14/2024) (Performed Date - 04/14/2024) * Examination: G eneral Examination: GENERAL APPEARANCE: p colton, well nourished, well developed, in no acute distress, calm and relaxed, overweight, man. HEAD: a traumatic, normocephalic. EYES: e magdalena, perrla, anicteric, conjugate. EARS: N ormal anatomy with bilateral hearing loss. NOSE: s eptum intact. ORAL CAVITY: n ormal, unremarkable. NECK/THYROID: n o jugular venous distention, no carotid bruit, thyroid normal. LYMPH NODES: n o enlarged lymph nodes,spleen normal. SKIN: n o suspicious lesions, anictericSurgical scar bridge of nose well-healed without tumor recurrence. HEART: n o clicks, gallops, murmurs, or rubs, regular rhythm, S1, S2 normal, no s3, or vascular bruits. LUNGS: c lear to auscultation . BREASTS: no masses palpable bilaterally. ABDOMEN: b owel sounds normal, no ascites, no organomegaly, no mass, overweight. RECTAL EXAM: n ot examined. MUSCULOSKELETAL: e xtremities unremarkable, no clubbing, cyanosis or edema. PERIPHERAL PULSES: n ormal. NEUROLOGIC: a lert and oriented, cranial nerves 2-12 grossly intact, deep tendon reflexes 2+ symmetrical, motor strength normal upper and lower extremities, sensory exam intact. PSYCH: a lert, oriented. - : L ungs:Normal, Legs: Normal circulation, Blood: Normal liver and kidney functions, Blood Sugar Level: 209. Assessment: * Assessment: 1. 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 Surveillance will continue at six-month intervals. He will return immediately for any symptoms of relapse. The nodular lesion on the right hindu is in an area of previous disease but appears to be a basal cell. 2 . O verweight - E66.3 N otes :His body mass index is 17. We discussed his diet and nutrition. We made a plan to lose weight at a rate of one half of a pound per week. 3 . D iabetes mellitus - E11.9 N otes :His diabetes and he is compliant with his treatment. No change in his regimen as necessary. 4 . H yperlipemia - E78.5 N otes :His lipids have been well controlled. No change in his regimen was needed. His statin therapy was continued. 5 . E ssential hypertension - I10 N otes :His blood pressure is well controlled today and no change in his regimen was needed. 6 . H istory of pneumonia - Z87.01 N otes :She recently had a visit to a local emergency room for pneumonia which was treated as an outpatient. He is still short of breath with exertion but substantially improved. He has been referred back to primary care for management. 7 . A cute kidney injury - N17.9 N otes :His BUN and creatinine are substantially elevated from baseline on the most recent blood work from the end of March. This was in the context of an episode of pneumonia. He has been referred back to primary care for management of the residual pneumonia and the renal function. 8 . 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 There is an extensive procedure and skin grafting, which is now healing. There is no sign of residual disease. 9 . 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 1 0. A trial fibrillation - I48.91 N otes :He is in a sinus rhythm today with a rate of about 80. His cardiovascular status stable.. 1 1. F ormer smoker - Z87.891 N otes :He remains abstinent. He oglesby a planned to prevent relapse and times of stress and illness. Plan: * Treatment: 2. O thers Continue Aspir-81; C ontinue Advair [...] management education, guidance, and counseling, Dietary needs education, Exercise promotion: strength training, Exercise promotion: stretching, Feeding regime, Giving encouragement to exercise, Lifestyle education regarding diet, Nutrition / feeding management, Nutrition therapy, Prescribed activity/exercise education, Prescribed diet education, Prescribed dietary intake, Special diet education, Weight monitoring , Intervention, Order not done: Medical or Other reason not done S moking/Tobacco Use Patient counseled on the dangers of tobacco use and urged to quit. 0 05/04/2024 DM Care Plan: P atient Lifestyle Goals P atient wants to be able to manage diabetes without too much effort. T reatment Goals B lood Sugars less than < 115, HbA1C < 7.0. B arriers n o barriers. S elf-Managment Goals W ork on weight loss, with a goal of losing 1 lb per week. * Follow Up: 6 Months, 6 months (Reason: OV no tests, Routine check-up) * Images: * Sign off status: Completed true * Provider: Kenia Parsons MD Date: 0 05/04/2024 Generated for Pj manning/Bran/eTholleysmitting on: 03/27/2024 03:39 PM EST History and Physical Notes * HPI (History of Present Illness) Category Sub-Category Detail Notes COVID-19 Screening Questions Have you had any new onset fever, chills, cough, congestion, sore throat, shortness of breath, muscle aches?: Yes Examination Category Sub-Category Detail Notes General Examination GENERAL APPEARANCE: pleasant , well nourished, well developed, in no acute distress, calm and relaxed, overweight, man HEAD: atraumatic, normocep halic EYES: eomi, perrla, anicte nafisa, conjugate EARS: Normal anatomy with bilateral hearing loss NOSE: septum intact NECK/THYROID: no jugular venous di stention, no carotid bruit, thyroid normal HEART: no clicks, gallops, murmurs, or rubs, regular rhythm, S1, S2 normal, no s3, or vascular bruits LUNGS: clear to auscultatio n ABDOMEN: bowel sounds normal, no ascites, no organomegaly, no mass, overweight NEUROLOGIC: alert and oriented, cranial nerves 2-12 grossly intact, deep tendon reflexes 2+ symmetrical, motor strength normal upper and lower extremities, sensory exam intact SKIN: no suspicious lesion s, anictericSurgical scar bridge of nose well-healed without tumor recurrence PERIPHERAL PULSES: normal BREASTS: no masses palpable b ilaterally MUSCULOSKELETAL: extremities unremark able, no clubbing, cyanosis or edema LYMPH NODES: no enlarged lymph no marcie,spleen normal RECTAL EXAM: not examined PSYCH: alert, oriented ORAL CAVITY: normal, unremarkable
--- OUTSIDE RECORDS SUMMARY | 2024-11-02 12:00 | XMS_ITS ---
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 Dean Hopson III Unavailable Allergies Allergen (clinical drug ingredient) Drug/Non Drug Allergy documented on EMR Reaction Allergy Type Onset Date Status almond allergenic extract Mobile (Diagnostic) Unknown Drug Allergy Active Shellfish (FN) Shellfish-derived Products Throat closes Drug Allergy Active warfarin Warfarin Sodium rash Drug Allergy A ctive REASON FOR VISIT follow up Medications Medication SIG (Take, Route, Frequency, Duration) Notes Start Date End Date Status NovoLOG FlexPen 100 UNIT/ML Subcutaneous Active Furosemide 40 MG TAKE 1 TABLET BY SHOBHA TH DAILY Oral Active Terazosin HCl 5 MG 1 capsule at bedtime Orally Once a day Active B12 Folate Active Carboxymethylcellulose Sodium Active Toprol XL 25 MG 1/2 tablet Orally On a day 06/18/2022 Active Lipitor 40 MG 1 tablet Orally Once a day Active Losartan Potassium 25 MG Oral Active Finasteride 5 MG 1 tablet Orally Once a day Active Lantus 100 UNIT/ML 18Unit Subcutaneous Once a day Active Eliquis 5 MG 1 tablet Orally once a day Active Fenofibrate 54 MG Oral Ac tive Aspir-81 Active NIFEdipine ER 30 MG TAKE 1 TABLET BY SHOBHA TH EVERY DAY Oral Active Advair Diskus 100-50 MCG/ACT 1 puff Inha lation Twice a day Active Amiodarone HCl 200 MG Oral Active Atorvastatin Calcium 40 MG Oral Active Social History Tobacco Use: Social History Observation Description Date Details (start date - stop date) Former Smoker NA - NA Tobacco Use/Smoking Question Answer Notes Patient is a former smoker How long has it been since you last smoked? > 10 years Additional Findings: Tobacco Non-User Ex-cigaret te smoker Encounters Encounter Location Date Provider Diagnosis Dean Parsons III, MD [address] [place] [address] [place] [address] 11/02/2024 Dean Parsons Lymphoma C85.90 Assessments Encounter Date Diagnosis (ICD Code) Assessment Notes Treatment Notes Treatment Clinical Notes 11/02/2024 Lymphoma (ICD-10 - C85.90) There is no sign of recurrent N/K T-cell lymphoma in any site at this time. Surveillance will continue at six-month intervals. He will return immediately for any symptoms of relapse. The nodular lesion on the right faith is in an area of previous disease but appears to be a basal cell. Plan Of Treatment Medication Medication Name Sig Start Date Stop Date Notes NovoLOG FlexPen 100 UNIT/ML Subcutaneous Furosemide 40 MG TAKE 1 TABLET BY SHBOHA TH DAILY Oral Terazosin HCl 5 MG 1 capsule at bedtime Orally Once a day B12 Folate Carboxymethylcellulose Sodium Toprol XL 25 MG 1/2 tablet Orally Once a day 06/18/2022 Lipitor 40 MG 1 tablet Orally Once a day Losartan Potassium 25 MG Oral Finasteride 5 MG 1 tablet Orally Once a day Lantus 100 UNIT/ML 18Unit Subcutaneous Once a day Eliquis 5 MG 1 tablet Orally once a day Fenofibrate 54 MG Oral Aspir-81 NIFEdipine ER 30 MG TAKE 1 TABLET BY SHOBHA TH EVERY DAY Oral Advair Diskus 100-50 MCG/ACT 1 puff Inha lation Twice a day Amiodarone HCl 200 MG Oral Atorvastatin Calcium 40 MG Oral Progress Notes * Joel LOGANDOB:[birth year] (84 yo M)Acc No.[id number]:11/02/2024 Progress Notes Patient: Joel WANG Provider: Kenia Parsons MD :1940 A ge:83 Y S ex:Male Date:11/02/2024 Address:[address] [place], [place] [id number] Pcp:Donte Powell MD Subjective: * Chief Complaints: * 1 . Follow up. * HPI: C OVID-19 Screening: Questions H ave you had any new onset fever, chills, cough, congestion, sore throat, shortness of breath, muscle aches? N o * ROS: G eneral/Constitutional: pain o nly normal aches and pains. C hills d enies.?Fatigue a dmits. F ever d enies. E NT: Decreased hearing d enies. R espiratory: Cough d enies. C ardiovascular: Chest pain with exertion d enies. D yspnea on exertion?denies. S hortness of breath d enies. G astrointestinal: Constipation d enies. D ecreased appetite d enies.?Diarrhea d enies. H eartburn d enies. N ausea d enies. R ectal bleeding?denies. V omiting d enies. H ematology: bruising d enies. p etechiae d enies. S wollen glands n one have been noted. G enitourinary: Frequent urination d enies. M usculoskeletal: Muscle aches d enies. P ainful joints d enies. S ciatica d enies. W eakness d enies. S kin: Itching d enies. R vicki d enies. S kin lesion(s)?denies. N eurologic: Difficulty speaking d enies. D izziness d enies.?Headache d enies. L ow back pain d enies. P sychiatric: Depressed mood d enies. 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 * Surgical History: a ppendectomy as a child , bypass graft left thigh , repeat left leg femoral- popliteal bypass graft 01/07/2013, bone marrow biopsy and aspirate , autologous stem cell transplant [facility] , left femoral popliteal bypass surgery 04/2013, vascular bypass surgery left lower extremity 12/2014, angioplasty left leg [facility] 2016, skin cancer removed from ear 2018, Basal cell carcinoma of face 2021, No history . * Hospitalization/Major Diagno stic Procedure: N o history . * Family History: F ather: alive 95 yrs, skin cancer, , hyperlipidemia, diagnosed with Cancer, Hyperlipidemia.?Mother: 76 yrs, diabetes mellitus, liver cancer, diagnosed [...] and is retired. He was born in [place], [place]. He has 4 biological children. 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 * Medications: T aking Aspir-81 , Taking Advair Diskus 100-50 MCG/ACT Aerosol Powder Breath Activated 1 puff Inhalation Twice a day , Taking NIFEdipine ER 30 MG Tablet Extended Release 24 Hour TAKE 1 TABLET BY MOUTH EVERY DAY Oral , Taking Fenofibrate 54 MG Tablet Oral , Taking Eliquis 5 MG Tablet 1 tablet Orally once a day , Taking Toprol XL 25 MG Tablet Extended Release 24 Hour 1/2 tablet Orally Once a day , Taking Losartan Potassium 25 MG Tablet Oral , Taking Lipitor 40 MG Tablet 1 tablet Orally Once a day , Taking Lantus 100 UNIT/ML Solution 18Unit Subcutaneous Once a day , Taking Finasteride 5 MG Tablet 1 tablet Orally Once a day , Taking Terazosin HCl 5 MG Capsule 1 capsule at bedtime Orally Once a day , Taking Furosemide 40 MG Tablet TAKE 1 TABLET BY MOUTH DAILY Oral , Taking Carboxymethylcellulose Sodium , Taking B12 Folate , Taking NovoLOG FlexPen 100 UNIT/ML Solution Pen-injector Subcutaneous , Taking Atorvastatin Calcium 40 MG Tablet Oral , Taking Amiodarone HCl 200 MG Tablet Oral , Medication List reviewed and reconciled with the patient * Allergies: W arfarin Sodium: rash - Side Effects, Shellfish-derived Products: Throat closes - Side Effects, Mobile (Diagnostic). Objective: * Vitals: * Examination: G eneral Examination: GENERAL APPEARANCE: p leasant, well nourished, well developed, in no acute distress, calm and relaxed. HEAD: a traumatic, normocephalic. EYES: e magdalena, perrla, anicteric, conjugate. EARS: n ormal. NOSE: s eptum intact. ORAL CAVITY: n ormal, unremarkable. NECK/THYROID: n o jugular venous distention, no carotid bruit, thyroid normal. LYMPH NODES: n o enlarged lymph nodes,spleen normal. SKIN: n o suspicious lesions, anicteric. HEART: n o clicks, gallops, murmurs, or rubs, regular rhythm, S1, S2 normal, no s3, or vascular bruits. LUNGS: c lear to auscultation . BREASTS: no masses palpable bilaterally. ABDOMEN: b owel sounds normal, no ascites, no organomegaly, no mass. RECTAL EXAM: n ot examined. MUSCULOSKELETAL: e xtremities unremarkable, no clubbing, cyanosis or edema. PERIPHERAL PULSES: n ormal. NEUROLOGIC: a lert and oriented, cranial nerves 2-12 grossly intact, deep tendon reflexes 2+ symmetrical, motor strength normal upper and lower extremities, sensory exam intact. PSYCH: a lert, oriented. Assessment: * Assessment: 1. L ymphoma - C85.90 N otes :There is no sign of recurrent N/K T-cell lymphoma in any site at this time. Surveillance will continue at six-month intervals. He will return immediately for any symptoms of relapse. The nodular lesion on the right faith is in an area of previous disease but appears to be a basal cell. Plan: * Treatment: 2. O thers Continue Aspir-81; C ontinue Advair Diskus Aerosol Powder Breath Activated, 100-50 MCG/ACT, 1 puff, Inhalation, Twice a day; C ontinue Fenofibrate Tablet, 54 MG, Oral; C ontinue Toprol XL Tablet Extended Release 24 Hour, 25 MG, 1/2 tablet, Orally, Once a day; C ontinue Losartan Potassium Tablet, 25 MG, Oral. * Images: * The named appointment provid er may or may not be the originator of this progress note, and it is not deemed complete until electronically signed by the appointment provider. Sign off status: Pending * Provider: Kenia Parsons MD Date: 0 11/02/2024 Generated for Pj manning/Bran/eTransmitting on: 03/27/2024 03:38 PM EST History and Physical Notes * HPI (History of Present Illness) Category Sub-Category Detail Notes COVID-19 Screening Questions Have you had any new onset fever, chills, cough, congestion, sore throat, shortness of breath, muscle aches?: No Examination Category Sub-Category Detail Notes General Examination GENERAL APPEARANCE: pleasant , well nourished, well developed, in no acute distress, calm and relaxed HEAD: atraumatic, normocep halic EYES: eomi, perrla, anicte nafisa, conjugate EARS: normal NOSE: septum intact NECK/THYROID: no jugular venous di stention, no carotid bruit, thyroid normal HEART: no clicks, gallops, murmurs, or rubs, regular rhythm, S1, S2 normal, no s3, or vascular bruits LUNGS: clear to auscultatio n ABDOMEN: bowel sounds normal, no ascites, no organomegaly, no mass NEUROLOGIC: alert and oriented, cranial nerves 2-12 [...]
--- NOTE | 2025-01-25 12:34 | MHC.PC.OV ---
Vital Signs 01/25/25 13:18 Height 5 ft 3.94 in Weight 69.4 kg BMI 26.3 BP 116/40 L Blood Pressure Location Rt brachial Position Sitting Respiration 20 Pulse 77 Pulse Source Pulse Oximeter Temp 98.1 F Temp Source Temporal Artery Scan Pulse Oximetry (%) 97 Oxygen Delivery Method Room Air Intake Visit Reasons: TCM [facility] back surgery Club Lounge Attendant Required: No Accompanied by: Self / Same As Patient Allergies No Known Allergies Allergy (Verified 01/25/25 12:35) Medication List - Last Reconciled 01/26/25 by DANIELLE Graham apixaban (Eliquis) 5 mg PO BID atorvastatin 40 mg PO DAILY benzonatate 100 mg PO BID PRN betamethasone dipropionate 0.05% topical carvedilol 3.125 mg PO BID diazepam (Valium) 5 mg PO Q8H PRN empagliflozin (Jardiance) mg PO ferrous sulfate 325 mg PO DAILY finasteride 5 mg PO DAILY fluticasone propion-salmeterol 250-50 mcg/dose (Advair Diskus) 1 ea inhalation BID furosemide 40 mg PO DAILY insulin aspart U-100 (Novolog FlexPen U-100 Insulin aspart) subcut insulin glargine (Lantus Solostar U-100 Insulin) 10 units subcut BID insulin syringe-needle U-100 (BD Insulin Syringe Ultra-Fine) As directed ipratropium-albuterol 0.5 mg-3 mg(2.5 mg base)/3 mL 3 mL inhalation BID PRN 30 days lorazepam 0.5 mg PO BEDTIME mecobalamin (vitamin B12) 1,000 mcg PO DAILY methocarbamol 500 mg PO TID PRN metoprolol tartrate 12.5 mg PO BID oxycodone 5 mg PO Q6H PRN silver sulfadiazine 1% appl topical terazosin 5 mg PO BEDTIME 90 days trazodone 25 - 50 mg (0.5 - 1 x 50 mg) PO BEDTIME PRN Tobacco use date assessed: 10/05/24 HPI HPI Comments History of Present Illness Details 83-year-old male with history of hypertension, HFrEF, type 2 diabetes, hyperlipidemia, paroxysmal atrial fibrillation, CKD stage 3, lymphoma s/p bone marrow transplant, and BPH presents to the office for follow-up. H PAF/HTN/HFrEF- follows with Dr. Rodriguez at [place]. AC with eliquis, increased to 5mg BID per cardiology recommendation. Renal function and weight appropriate for full dose. Previously on amiodarone which was discontinued due to concerns for ILD. Continues on Coreg. On Lasix, no worsening edema, weight gain, orthopnea, dyspnea on exertion History of squamous cell carcinoma R face- [facility]. New mass L face ongoing months, enlarging. 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 Previously followed with [facility] hematology/oncology. S/p bone marrow transplant. Does continue following with Dr. Parsons T2DM- last A1c 6.1%. Using Lantus 10 units twice daily and NovoLog on sliding scale. Also been Jardiance. Lumbar spondylolysis at L5-S1 with right footdrop- MRI of the lumbar spine demonstrated grade I L5-S1 spondylolysis, with severe right L5-S1 foraminal narrowing. Underwent right L5-S1 TLIF. Still has foot drop, as told this may resolve. Alternating between oxy and tylenol. [facility] 10/31 which he reports is improved. He was discharged to [facility] and has home PT starting next week. While at [facility], he was readmitted to [facility] due to CHF exacerbation. Was diuresed successfully in discharge back to [place]. Ambulating with a cane and a walker. Alternating between oxycodone and Tylenol. Concerns: Hx SCC of face on R yazdanism. Has had new lesion left yazdanism growing for months. Has not been back to [facility]. Unintentional weight loss noted in the office. Reached out to Dr. Parsons who will evaluate him for 10 kg weight loss ROS: Negative except for that mentioned in the HPI EXAM: Constitutional - Awake and Alert, No apparent distress Eyes - PERRL Cardiovascular - S1S2, RRR, No edema Respiratory - Normal lung expansion, Normal respiratory effort, No respiratory distress, rhonchi left lower lobe and right upper lobe Chest-no reproducible tenderness to palpation Extremities - no calf tenderness bilaterally, no swelling Skin - Warm/Dry. 3cm x 3cm raised eastman lesion with dry/scaling with several black specks L yazdanism Neurological - Alert & oriented x3 Psychological - Appropriate affect PFSH Medical History Bronchitis GONGORA (dyspnea on exertion) Aortic stenosis Anemia of chronic disease CKD (chronic kidney disease) PAD (peripheral artery disease) COPD (chronic obstructive pulmonary disease) HFrEF (heart failure with reduced ejection fraction) NK/T-cell lymphoma Atrial fibrillation Hyperlipidemia Diabetes mellitus HTN (hypertension) Rotator cuff tendonitis Surgical History S/P bone marrow transplant History of colonoscopy (~01/19/18) History of surgery Family History (Updated 11/12/24 @ 15:24 by Kristen Sadler MA) Mother No problems noted. Father No problems noted. Social History Patient Tobacco Use Status: Former Tobacco user Tobacco use type: Cigarette e-Cigarette/Vaping Use: Never Used Questionnaire Thrive Questionnaire Date Thrive assessed: 09/28/24 TANNER-7 AMB Questionnaire TANNER-7 Date TANNER - 7 assessed: 09/28/24 Source: Developed by Drs. Dean Dent, Sara Thomas, Ricky Alonso and colleagues, with an educational brody from [employer]. Physical exam (Primary Care) Vital Signs: Last Vital Signs Temp 98.1 F 01/25/25 13:18 Pulse 77 01/25/25 13:18 Resp 20 01/25/25 13:18 BP 116/40 L 01/25/25 13:18 Pulse Ox 97 01/25/25 13:18 Oxygen Delivery Method Room Air 01/25/25 13:18 BMI result Body Mass Index 26.3 Tobacco/Smoking Status: Tobacco use Status Tobacco use date assessed 10/05/24 01/25/25 12:35 Patient Tobacco Use Status Former Tobacco user 01/25/25 12:35 Tobacco use type Cigarette 01/25/25 12:35 e-Cigarette/Vaping Use Never Used 01/25/25 12:35 Thrive Assessment: Date of Thrive Assessment Date Thrive assessed 09/28/24 01/25/25 12:35 Coding Level of Care Code Est Pt Level 5 (46473) Complex EM visit Add On G2211 Diagnoses Hospital discharge follow-up Z09 HFrEF (heart failure with reduced ejection fraction) I50.20 COPD (chronic obstructive pulmonary disease) J44.9 SCC (squamous cell carcinoma), face C44.320 Lumbar spondylolysis M43.06 Footdrop M21.379 Assessment & Plan Assessment & Plan (1) Hospital discharge follow-up: Code(s): Z09 - Encounter for follow-up examination after completed treatment for conditions other than malignant neoplasm Category: Medical Plan: Discharge records reviewed including H&P, DC summary x 2, CXR, and labs. Reviewed lumbar MRi. Discharge medications reconciled. (2) HFrEF (heart failure with reduced ejection fraction): Comment: EF 37% Code(s): I50.20 - Unspecified systolic (congestive) heart failure Category: Medical Plan: Clinically euvolemic. Continue lasix. Follow up with cardiology as scheduled. Reach out to the office for any weight gain. Low-sodium diet, fluid restrictions. Continue Jardiance, carvedilol (3) COPD (chronic obstructive pulmonary disease): Comment: PATIENT HAS BEEN TREATED WITH ADVAIR 250-51 INHALATION B.I.D. AND MOST LIKELY FOR CHRONIC OBSTRUCTIVE PULMONARY DISEASE. AT PRESENT HIS MAIN PROBLEM IS ONGOING COUGH. Code(s): J44.9 - Chronic obstructive pulmonary disease, unspecified Category: Medical Plan: I no acute exacerbation. Continue following with pulmonology. Use maintenance inhalers as prescribed as well as albuterol as needed (4) SCC (squamous cell carcinoma), face: Code(s): C44.320 - Squamous cell carcinoma of skin of unspecified parts of face Category: Medical (5) Lumbar spondylolysis: Code(s): M43.06 - Spondylolysis, lumbar region Category: Medical Plan: S/p TLIF with some improvement in pain. Footdrop does still persist. May resolve per neurosurgeon. Continue oxycodone and Tylenol. Diazepam as needed. Continue use of assistive device until cleared by physical therapy and continue as advised. Follow-up with neurosurgery as scheduled (6) Footdrop: Code(s): M21.379 - Foot drop, unspecified foot Category: Medical Plan: As above Plan Labs ordered as below. Urgent referral placed back to [facility] due to what appears to be consistent with a squamous cell carcinoma on the left yazdanism that has been present for months inpatient with known history 10 lb kg weight loss-to follow-up with Dr. Parsons. Reviewed last notes from [facility] from 2 years ago Orders: Orders Potassium 01/25/25 E87.6 - Hypokalemia Complete Blood Count Auto Diff 01/25/25 D64.9 - Anemia, unspecified IRON PROFILE 01/25/25 D64.9 - Anemia, unspecified Vitamin B12 01/25/25 D64.9 - Anemia, unspecified Referrals Dermatology Referral C44.320 - Squamous cell carcinoma of skin of unspecified parts of face Medications: New apixaban (Eliquis) 5 mg PO BID 180 tabs 1RF Patient Instructions: [facility] for foot drop
[2025-01-25 13:18] VITALS: BP 116/40; PULSE 77; RESP 20; TEMP 36.7; O2SAT 97; BMI 26.3
--- OUTSIDE RECORDS SUMMARY | 2025-01-25 15:39 | XMS_ITS | Encounter Summary ---
Author Organization [facility] Address [address] [place] [phone] Phone Care Team Providers Care Fur Operator Name Role Phone Donte Powell MD Primary Care Provider Encounter Details Date Type Department Care Team (Late st Contact Info) Description 05/03/2024 Documentation [facility] [address] [place] [address] Lori Dumont RN [address] [place] [address] [email or web address] Social History Tobacco Use Types Packs/Day Years [...] Diagnoses Not on filedocumented in this encounter Additional Health Concerns Assessment Noted Time PHQ-9 Depression Total Score: 7 01/29/20 24 9:45 AM EST documented as of this encounter Care Teams Fur Operator Relationship Specialty Start Date End Date Donte Powell MD [address] [place] [address] [place] [address] PCP - General Internal Medicine 11/30/23 documented as of this encounter Additional Source Comments The information contained in this document represents components of the legal health record. It is not the complete legal health record.[facility]
--- OUTSIDE RECORDS SUMMARY | 2025-01-25 15:39 | XMS_ITS | Patient Health Record ---
Author Organization [facility] Address [address] [place] [id number] Care Team Providers Care Segment Assembler Name Role Phone Andre (RETIRED) Donte PALACIO Primary Care Provide r Unavailable Dean Payan Unavailable [phone] Allergies Allergen (clinical drug ingredient) Drug/Non Drug [...] Problem Status W/U Status Risk Notes Problem Screening for malignant neoplasm of colon (782702716) Encounter for screening for malignant neoplasm of colon (Z12.11) Active confirmed Problem History of adenomatous polyp of colon (830521617) History of adenomatous polyp of colon (Z86.010) Active confirmed Problem Long-term current use of anticoagulant (322440928) Anticoagulant long-term use (Z79.01) Active confirmed Plan Of Treatment Future Test Test Name Order Date COLONOSCOPY 06/11/2013 COLONOSCOPY 11/27/2017 Insurance Providers Payer Name Payer Address Payer Phone Subscriber Number Group Number Insured Name Patient Relationship to Insured Coverage Start Date Coverage End Date MEDICARE OF [place] [address] [place] [address] [phone] [id number] TONY CASTELLON Self - patient is the insured [employer] 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 Parsons--in remission A.fib Denies [place],CVA,renal disease Pancreatitis in 1997 PVD--s/p LE bypass as below Started Nexium during his lymphoma treat ments--no real sx of GERD COPD Surgical History Surgery Date(Month/Year) Vascular surgeries and angioplasties on the left leg Appy 194 Perianal fistula and hemorroid repair 20 00 Cataract left and right 2008
--- OUTSIDE RECORDS SUMMARY | 2025-01-25 15:39 | XMS_ITS | Patient Health Record ---
Author Organization Dean Parsons III, MD Address [address] [place] [place] [address] Care Team Providers Care Artificial Flower Maker Name Role Phone Donte Powell MD Primary Care Provider Dr. Dean Hopson III Unavailable [phone] Allergies Allergen (clinical drug ingredient) Drug/Non Drug Allergy documented on EMR Reaction Allergy Type Onset Date Status Shellfish (FN) Shellfish-derived Products Throat closes Drug Allergy Active almond allergenic extract [place] (Diagnostic) Unknown Drug Allergy Active warfarin Warfarin Sodium rash Drug Allergy A ctive Results Component Value Reference Range Notes Complete Blood Count Auto Di ff Reviewed date:04/18/2024 04:55:04 PM Interpretation: Performing Lab:[facility], [address] [place] [phone] Notes/Report: White Blood Count 4.6 4.8-10.8 X10*3/uL [...] NRBC Abs Auto 0.000 0.0-0.012 X10*3/uL Comprehensive Royal. Panel Fa Reviewed date:04/18/2024 04:55:04 PM Interpretation: Performing Lab:[address] [address] Notes/Report: Sodium 135 135-145 mmol/L Potassium 4.1 [...] Panel Reviewed date:04/18/2024 04:55:04 PM Interpretation: Performing Lab:[address] [address] Notes/Report: Triglycerides 106 <150 mg/dL Desirable Triglyceride: [...] B12 Reviewed date:04/18/2024 04:55:04 PM Interpretation: Performing Lab:[facility], [address] [place] [address] Notes/Report: Vitamin B12 725 200-900 pg/mL NORMAL 200-900 PG/ML INDETERMINATE 160-199 PG/ML DEFICIENT < 160 PG/ML Microalbumin, Random Reviewed date:04/18/2024 04:55:04 PM Interpretation: Performing Lab:[facility], [address] [place] [address] Notes/Report: Creatinine Urine 45.72 Microalbumin Urine < 5.0 Microalbum/Creatinine Ratio Ur TNP <30 ug/mg cr Unable to calculate albumin/creatinine ratio due to low microalbumin or creatinine result. Hemoglobin A1c Reviewed date:04/18/2024 04:55:04 PM Interpretation: Performing Lab:[facility], [address] [place] [phone] Notes/Report: Hemoglobin A1c % 8.2 <6.0 % [...] average glucose, using the formula of the W3K-[id number] Average Glucose study (ADAG), Diabetes Care, Vol.31,#8, Oct. 2007 XR chest 2V Reviewed date:04/18/2024 04:55:04 PM Interpretation: Performing Lab: Notes/Report: [address] [address] XRay Report Signed Patient: Joel Logan Jr MR#: [id number] : 1940 Acct:[id number] Age/Sex: 83 / M ADM Date: 04/14/24 Loc: [facility] Attending Dr: Dean Parsons MD Ordering Physician: Dean Parsons MD Date of Service: 04/14/24 Procedure(s): XR chest 2V Accession Number(s): [id number] cc: Dean Parsons MD; Donte Powell MD [...] 04/14/24 0833 DD/ 0745 TD/TT: 04/14/24 0754 Hosiery Looper: [address] [address] XRay Report Signed Patient: Joel Logan Jr MR#: [id number] : 1940 Acct:[id number] Age/Sex: 83 / M ADM Date: 04/14/24 Loc: [facility] Attending Dr: Dean Parsons MD Ordering Physician: Dean Parsons MD Date of Service: 04/14/24 Procedure(s): XR bern[address] st 2V Accession Number(s): [id number] cc: Dean Parsons MD; Donte Powell MD [...] 04/14/24 0833 DD/ 0745 TD/TT: 04/14/24 0754 Hosiery Looper: NEIL Reason For Referral No Information Medications Medication SIG (Take, Route, Frequency, Duration) Notes Start Date End Date Status Amiodarone HCl 200 MG Oral Active Aspir-81 Active Furosemide 40 MG TAKE 1 TABLET BY SHOBHA TH DAILY Oral Active Terazosin HCl 5 MG 1 capsule at bedtime Orally Once a day Active NIFEdipine ER 30 MG TAKE 1 TABLET BY SHOBHA TH EVERY DAY Oral Active B12 Folate Active Advair Diskus 100-50 MCG/ACT 1 puff Inha lation Twice a day Active Carboxymethylcellulose Sodium Active Lipitor 40 MG 1 tablet Orally Once a day Active Losartan Potassium 25 MG Oral Active Finasteride 5 MG 1 tablet Orally Once a day Active Lantus 100 UNIT/ML 18Unit Subcutaneous Once a day Active Eliquis 5 MG 1 tablet Orally once a day Active Atorvastatin Calcium 40 MG Oral Active Fenofibrate 54 MG Oral Ac tive NovoLOG FlexPen 100 UNIT/ML Subcutaneous Active Toprol XL 25 MG 1/2 tablet Orally On day 06/18/2022 Active Immunizations Vaccine Route Administration Date Status [...] Problem Status W/U Status Risk Notes Problem 4479986 Former smoker (Z87.891) Active confirmed He remains abstinent. He oglesby a planned to prevent relapse and times of stress and illness. Problem 360890961 Overweight (E66.3) Active confirmed His body mass index is 17. We discussed his diet and nutrition. We made a plan to lose weight at a rate of one half of a pound per week. Problem 81610609 Diabetes mellitu s (E11.9) Active confirmed His diabetes an d he is compliant with his treatment. No change in his regimen as necessary. Problem 280510066 Skin cancer (C44.90) Active confirmed The lesion on the left upper eyelid will be removed June 26, 2023. Problem 329214969 Chronic anticoagulation (Z79.01) Active confirmed He has had no bleeding on the Eliquis which he takes for atrial fibrillation. 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 Surveillance will continue at six-month intervals. He will return immediately for any symptoms of relapse. The nodular lesion on the right samaritan is in an area of previous disease but appears to be a basal cell. Problem 80547530 Essential hypertension (I10) Active confirmed His blood pressure is well controlled today and no change in his regimen was needed. Problem 87636860 Cataracts, bilateral (H26.9) Active confirmed He is nik g to have surgery October 23, 2022. Problem 83860157 Atrial fibrillation (I48.91) Active confirmed He is in a sinu s rhythm today with a rate of about 80. His cardiovascular status stable.. Problem 14635997 Hyperlipemia (E78.5) Active confirmed His lipids have been well controlled. No change in his regimen was needed. His statin therapy was continued. Problem 65057222 Peripheral vascular disease in diabetes mellitus (E11.51) Active confirmed He is curr ently able to conduct all of the activities of daily living without difficulty. He experiences some claudication with prolonged walking. He is seen by vascular surgery at regular intervals. Problem Basal cell carcinoma of face (260629367) Basal cell carcinoma of face (C44.310) Active confirmed Basal cell carcinoma on his chin has been removed and the scar is healing. Problem 50875256 Acute kidney injury (N17.9) Active confirmed His BUN and creatinine are substantially elevated from baseline on the most recent blood work from the end of March. This was in the context of an episode of pneumonia. He has been referred back to primary care for management of the residual pneumonia and the renal function. 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 The nodular lesion on the right samaritan is in an area of previous disease [...] 10/02/2023 Hemoglobin A1c 10/02/2023 Hemoglobin A1c 02/06/2023 Insurance Providers Payer Name Payer Address Payer Phone Subscriber Number Group Number Insured Name Patient Relationship to Insured Coverage Start Date Coverage End Date MEDICARE NGS [address] [place] [phone] [id number] Joel Clayton i Self - patient is the insured [employer] [address] [place] [address] [id number] Joel Clayton i Self - patient is the insured Medical (General) History Medical History History ICD Code diabetes mellitus hyperlipidemia hypertension cataracts peripheral vascular disease keloid on chest atrial fibrillation 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
--- OUTSIDE RECORDS SUMMARY | 2025-01-25 15:39 | XMS_ITS | Encounter Summary ---
Author Organization [facility] Address [address] [place] [address] Care Team Providers Care Vegetable Tier Name Role Phone Donte Powell Primary Care Provider Encounter Details Date Type Department Care Team (Late st Contact Info) Description 03/21/2020 Orders Only [facility] [address] [place] [address] Violeta Plascencia, PharmD [address] [place], [place] [id number] Social History Tobacco Use Types Packs/Day Years [...] on filedocumented in this encounter Care Teams Vegetable Tier Relationship Specialty Start Date End Date Donte Powell [address] [place] [address] dr Mac Watts, [place] [address] PCP - General 10/10/16 documented as of this encounter
--- OUTSIDE RECORDS SUMMARY | 2025-01-25 15:39 | XMS_ITS ---
Author Organization [facility] Address [address] [place] [address] Care Team Providers Care Show Horse Driver Name Role Phone Donte Powell Primary Care Provider [phone] Active Problems Problem Noted Date Diagnosed Date [...]
--- OUTSIDE RECORDS SUMMARY | 2025-01-25 15:39 | XMS_ITS | Clinical Summary ---
Author Organization [facility] Address [address] [place] [address] Phone Care Team Providers Care Hotel Or Motel Room Service Supervisor Name Role Phone Donte Powell MD [...] Active ferrous sulfate 325 mg (65 mg eek iron) tablet Take 325 mg by mouth [...] 024 Discontinu ed(Discont inued by another clinician) Social History Tobacco Use Types Packs/Day Years [...] VACCINE (1 - 1-dose 75+ series) 2016 INFLUENZA VACCINE (#1) 2024 , 12/26/2020 COVID-19 VACCINE (1 - 2024-2 6 season) 2024 DEPRESSION SCREENING 01/28/2025 01/29/2024 CREATININE LEVEL 09/27/2025 [...] Procedure Name Priority Date/Time Associated Diagnosis Comments BASIC METABOLIC PANEL (BMP) Routine 09/27/2024 8:30 AM EDT Severe aortic stenosis from Last 3 Months or Most Recently Relevant to Health Maintenance Results * (ABNORMAL) Basic metabolic panel (09/27/2024 8:30 AM EDT) SODIUM 132(L) 133 - 146 mmol/L [facility] CHLORIDE 98 96 - 108 mmol/L [facility] POTASSIUM 4.1 3.3 - 5.1 mmol/L [facility] CO2 20(L) 21 - 35 mmol/L [facility] BUN 46(H) 6 - 19 mg/dL [facility] CREATININE 1.70(H) 0.5 - 1.5 mg/dL [facility] GLUCOSE 332(H) 70 - 99 mg/dL [facility] CALCIUM 8.5 8.4 - 10.3 mg/dL [facility] EGFR 40(L) >59 mL/min/1.7 3m2 [facility] Comment:Estimated glomerular filtration rate calculated using the CKD-EPI refit equation. ANION GAP 18 10 - 20 mmol/L [facility] Blood 09/27/2024 8:30 AM EDT 09/27/2024 9:27 AM EDT Babak Rodriguez MD LAB BLOOD BKR ORDERABLES Final Result Performing Organization Address City/State/[facility] Co de Phone Number [address] [address] from Last 3 Months or Most Recently Relevant to Health Maintenance Insurance MEDICARE PART A & B [facility] [employer] [facility] [facility] MEDICARE SUPPLEMENT MEDICARE PART A & B [facility] MEDICARE SUPPLEMENT [facility] Address: [address] [address] MEDICARE PART A & B MEDICARE PART A & B MEDICARE PART A & B MEDICARE SUPPLEMENT [facility] Address: [facility] [address] [place] [address] MEDICARE PART A & B MEDICARE PART A & B MEDICARE SUPPLEMENT [facility] Address: [address] [address] MEDICARE PART A & B FOR LIFE MEDICARE SUPPLEMENT MEDICARE PART A & B FOR LIFE MEDICARE SUPPLEMENT [facility] Address: [id number] [place] [address] Care Teams Hotel Or Motel Room Service Supervisor Relationship Specialty Start Date End Date Donte Powell MD [address] [place] [address] Dr Zavala, [place] [address] PCP - General Internal Medicine 11/30/23 Additional Source Comments The information contained in this document represents components of the legal health record. It is not the complete legal health record.[facility]
--- OUTSIDE RECORDS SUMMARY | 2025-01-25 15:39 | XMS_ITS | Clinical Summary ---
Author Organization [facility] Address [address] [place] [address] Care Team Providers Care Scutcher Tender Name Role Phone Donte Powell Primary Care Provider [phone] Allergies Active Allergy Reactions Criticality Noted Date Comments [place] Swelling High he is allergic to shellfish [...] D 03/19/2018 03/19/2017 Ophthalmology Exam 04/12/2023 04/12/2022 Alcohol/Substance Use Screening 03/24/2024 Depression Screening and Follow-Up 03/24/2024 Health Care Proxy Review 03/24/2024 Social Drivers of Health Shanda ual Screening 03/24/2024 Basic Metabolic Panel 03/31/2024 09/29/2023 , 08/27/2023, 04/09/2023, Additional history exists Hemoglobin 09/28/2024 09/29/2023, 07/2023, 04/09/2023, Additional history exists COVID-19 Vaccine (4 - 2024-2 6 season) 2024 03/03/2021, 05/10/2020, 04/12/2020 Influenza Vaccine (#1) 2024 , 12/26/2020, 03/21/2020, Additional history exists DTaP,Tdap,and Td Vaccines (3 - Td or Tdap) 10/16/2026 10/16/2016, 11/19/2011 CT Lung Cancer Screening (12 months, previous LungRADS 1 or 2) Discontinued 05/15/2010, 12/17/19 09, 11/03/2008 Pneumococcal Vaccine: 50+ Years Completed 10/19/2018, 10/16/2016, 11/19/2011 Zoster Vaccines Completed 11/15/2019, 03/24, 03/24/2013 Procedures * Due to [facility] law, this organization might not be sharing [...] to Health Maintenance Results * Due to [facility] law, this organization might not be sharing negative HIV tests. * (ABNORMAL) CBC Auto Differential (09/29/2023 1:42 PM EDT) WBC 7.2 3.8 - 10.8 10*3/uL 09/29/2023 2:15 PM EDT [facility] RBC 3.74(L) 4.20 - 5.80 10*6/uL 09/29/2023 2:15 PM EDT [facility] Hemoglobin 11.4(L) 13.2 - 17.1 g/dL 09/29/2023 2:15 PM EDT [facility] Hematocrit 35.5(L) 38.5 - 50.0 % 09/29/2023 2:15 PM EDT [facility] MCV 94.9 80.0 - 100.0 fL 09/29/2023 2:15 PM EDT [facility] MCH 30.5 27.0 - 33.0 pg 09/29/2023 2:15 PM EDT [facility] MCHC 32.1 32.0 - 36.0 g/dL 09/29/2023 2:15 PM EDT [facility] RDW 14.7 11.0 - 15.0 % 09/29/2023 2:15 PM EDT [facility] Platelets 184 140 - 400 10*3/uL 09/29/2023 2:15 PM EDT [facility] MPV 11.3 7.5 - 12.5 fL 09/29/2023 2:15 PM EDT [facility] Neutrophil % 73.2 % 09/29/2023 2:15 PM EDT [facility] Immature Grans % 0.6 0.0 - 0.9 % 09/29/2023 2:15 PM EDT [facility] Lymphocyte % 16.5 % 09/29/2023 2:15 PM EDT [facility] Monocyte % 9.2 % 09/29/2023 2:15 PM EDT [facility] Eosinophil % 0.4 % 09/29/2023 2:15 PM EDT [facility] Basophil % 0.1 % 09/29/2023 2:15 PM EDT [facility] Neutrophil # 5.24 1.50 - 7.80 10*3/uL 09/29/2023 2:15 PM EDT [facility] Immature Grans # 0.04(H) <=0.03 10*3/uL 09/29/2023 2:15 PM EDT [facility] Lymphocyte # 1.20 0.85 - 3.90 10*3/uL 09/29/2023 2:15 PM EDT [facility] Monocyte # 0.70 0.20 - 0.95 10*3/uL 09/29/2023 2:15 PM EDT [facility] Eosinophil # <0.03 0.02 - 0.50 10*3/uL 09/29/2023 2:15 PM EDT [facility] Basophil # <0.03 0.00 - 0.20 10*3/uL 09/29/2023 2:15 PM EDT [facility] nRBC % 0.0 /100 WBCs 09/29/2023 2:15 PM EDT [facility] nRBC # <0.01 <0.01 10*3/uL 09/29/2023 2:15 PM EDT [facility] Total Neutrophil #, Preliminary 5.24 1.50 - 7.80 10*3/uL 09/29/2023 2:15 PM EDT [facility] Blood Structure of peripheral vein / Unknown Venipuncture / Unknown 09/29/2023 1:42 PM EDT 09/29/2023 2:06 PM EDT us George Vaca MD PhD LAB BLOOD ORDERABLES Final Resu lt [facility] [address] [place] [address], [place] * (ABNORMAL) Comprehensive Metabolic Panel (09/29/2023 1:42 PM EDT) NA 137 135 - 145 mmol/L 09/29/2023 2:57 PM EDT [facility] K 4.6 3.5 - 5.3 mmol/L 09/29/2023 2:57 PM EDT [facility] Cl 100 98 - 107 mmol/L 09/29/2023 2:57 PM EDT [facility] CO2 23(L) 24 - 32 mmol/L 09/29/2023 2:57 PM EDT [facility] Anion Gap 14 5 - 15 09/29/2023 2:57 PM EDT [facility] Glucose 173(H) 65 - 99 mg/dL 09/29/2023 2:57 PM EDT [facility] Creatinine 1.94(H) 0.60 - 1.30 mg/dL 09/29/2023 2:57 PM EDT [facility] Calcium 9.4 8.6 - 10.5 mg/dL 09/29/2023 2:57 PM EDT [facility] Total Protein 7.9 6.0 - 8.0 g/dL 09/29/2023 2:57 PM EDT [facility] Albumin 4.1 3.5 - 5.2 g/dL 09/29/2023 2:57 PM EDT [facility] Bilirubin, Total 0.3 0.2 - 1.2 mg/dL 09/29/2023 2:57 PM EDT [facility] Alkaline Phosphatase 63 35 - 129 U/L 09/29/2023 2:57 PM EDT [facility] AST 57(H) 10 - 40 U/L 09/29/2023 2:57 PM EDT [facility] ALT 56(H) 10 - 40 U/L 09/29/2023 2:57 PM EDT [facility] BUN 47(H) 7 - 23 mg/dL 09/29/2023 2:57 PM EDT [facility] eGFR 34(L) >=60 mL/min/1 .73m2 09/29/2023 2:57 PM EDT [facility] Comment:The estimated glomer ular [...] - 4.2 g/dL 09/29/2023 2:57 PM EDT [facility] A/G Ratio 1.1(L) 1.5 - 3.0 09/29/2023 2:57 PM EDT [facility] Blood Structure of peripheral vein / Unknown Venipuncture / Unknown 09/29/2023 1:42 PM EDT 09/29/2023 2:06 PM EDT us George Vaca MD PhD LAB BLOOD ORDERABLES Final Resu lt [facility] [address] [place] [address], * (ABNORMAL) Vitamin D, 25-Hydroxy, Total, Immunoassay (03/19/2017 1:10 PM EST) Calcidiol+ercalc idiol 26(L) 30 - 100 ng/mL 03/20/2017 10:40 AM EST [email or web address] Comment: Vitamin D Status 25-OH Vitamin D: Deficiency: <20 ng/mL Insufficiency: 20 - 29 ng/mL Optimal: > or = 30 ng/mL For 25-OH Vitamin D testing on patients on D2-supplementation and patients for whom quantitation of D2 and D3 fractions is required, the QuestAssureD(TM) 25-OH VIT D, (D2,D3), LC/MS/MS is recommended: order code 58523 (patients >2yrs). For more information on this test, go to: http://education.Funifi/faq/GYA265 (This link is being provided for informational/educational purposes only.) Blood specimen (specimen) Structure of peripheral vein / Unknown Venipuncture / Unknown 03/19/2017 1:10 PM EST 03/19/2017 1:21 PM EST [employer] SHAISTA - 03/20/2017 10:40 AM EST [facility] Received Date: Bethany SANTOS LAB BLOOD ORDERABLES Edit ed Result - Final [facility] [address], [place] [address], [facility] [address], [place] [address], * (ABNORMAL) Hemoglobin A1c (03/19/2017 1:10 PM EST) Hemoglobin A1C 9.0(H) <5.7 % of total Hgb 03/19/2017 7:14 PM [facility] Comment: For someone without known diabetes, a [...] (MG/DL) 212 (calc) 03/19/2017 7:14 PM EST [facility] eAG (MMOL/L) 11.7 (calc) 03/19/2017 7:14 PM EST [facility] Blood specimen (specimen) Structure of peripheral vein / Unknown Venipuncture / Unknown 03/19/2017 1:10 PM EST 03/19/2017 1:21 PM EST [employer] SHAISTA - 03/19/2017 7:14 PM EST [facility] Received Date:[id number] Bethany SANTOS LAB BLOOD ORDERABLES Barbara l Result [facility] [address], [place] [address], [place] [phone] [facility] [address], [place] [address], [place] [phone] * (ABNORMAL) Phosphorus (12/20/2013 4:07 AM EDT) Phosphorus Blood 2.0(L) 2.5 - 4.5 mg/dL [facility] 12/20/2013 4:07 AM EDT 12/20/2013 4:29 AM EDT Camron Strickland MD LAB BLOOD ORDERABLES Final Result Performing Organization Address City/[facility] Co de Phone Number [facility] [address] [place] [address], [place] * CT Chest W Contrast (05/15/2010 [...] . COMMUNICATION: Per this written report. [facility] PROCEDURES Final Result from Last 3 Months or Most Recently Relevant to Health Maintenance Insurance [address] [place] [address] MEDICARE [employer] Advance Directives Documents on File Type Date Recorded Patient Inside Plant Supervisor Expl anation Advance Directive 10/19/2008 12:00 AM christopher ramírez Dec Making (Adv.Dir) Care Teams Scutcher Tender Relationship Specialty Start Date End Date Donte Powell [address] [place] [address] dr Mac Watts, [place] [address] PCP - General 10/10/16
--- OUTSIDE RECORDS SUMMARY | 2025-01-25 15:39 | XMS_ITS | Encounter Summary ---
Author Organization [facility] Address [address] [place] [phone] Phone Care Team Providers Care I O Psychologist Name Role Phone Donte Powell MD Primary Care Provider Encounter Details Date Type Department Care Team (Latest Contact Info) Description 12/04/2023 Transcribe Orders [facility] Specimen Processing [address] [place] [address] Babak Rodriguez MD [address] [place] [id number] [email or web address] Heart failure, unspecified HF chronicity, unspecified heart failure type (Primary Dx); Chronic kidney disease, unspecified CKD stage Social History Tobacco Use Types Packs/Day Years Used Date Smoking Tobacco: Never Assessed Home Health Assessment: Transportation Answer Date Recorded Lack of Transportation (Medical) No 12/02/2023 Lack of Transportation (Non-Medical) No 12/02/2023 Patient Unable or Declines to Respond No 12/02/2023 Education Answer Date Recorded Are you interested [...] on file documented as of this encounter Results * (ABNORMAL) Basic metabolic panel (12/04/2023 1:45 PM EDT) SODIUM 139 133 - 146 mmol/L [facility] CHLORIDE 104 96 - 108 mmol/L [facility] POTASSIUM 5.3(H) 3.3 - 5.1 mmol/L [facility] CO2 24 21 - 35 mmol/L [facility] BUN 29(H) 6 - 19 mg/dL [facility] CREATININE 1.40 0.5 - 1.5 mg/dL [facility] GLUCOSE 133(H) 70 - 99 mg/dL [facility] CALCIUM 8.5 8.4 - 10.3 mg/dL [facility] EGFR 50(L) >59 mL/min/1.7 3m2 [facility] Comment:Estimated glomerular filtration rate calculated using the CKD-EPI refit equation. ANION GAP 16 10 - 20 mmol/L [facility] Blood 12/04/2023 1:45 PM EDT 12/04/2023 2:31 PM EDT us Babak Rodriguez MD LAB BLOOD BKR ORDERABLES Final Result [address] [address] * (ABNORMAL) CBC (12/04/2023 1:45 PM EDT) WBC 6.02 4.00 - 11.00 K/uL [facility] RBC 2.78(L) 3.90 - 5.69 M/uL [facility] HGB 8.9(L) 12.4 - 17.3 g/dL [facility] HCT 27.9(L) 37.0 - 51.0 % [facility] PLT 265 140 - 430 K/uL [facility] MCV 100.4(H) 78.0 - 97.0 fL [facility] MCH 32.0 25.0 - 33.0 pg [facility] MCHC 31.9(L) 32.0 - 36.0 g/dL [facility] RDW 16.2(H) 11.0 - 15.0 % [facility] MPV 11.4 8.4 - 12.8 fl [facility] Blood 12/04/2023 1:45 PM EDT 12/04/2023 2:31 PM EDT Babak Rodriguez MD LAB BLOOD BKR ORDERABLES Final Result [address] [address] documented in this encounter Visit Diagnoses Diagnosis Heart failure, unspecified HF chronicity, unspecified heart failure type- Primary Chronic kidney disease, unspecified CKD stage documented in this encounter Care Teams I O Psychologist Relationship Specialty Start Date End Date Donte Powell MD [address] [place] [address] [place] [address] PCP - General Internal Medicine 11/30/23 documented as of this encounter Additional Source Comments The information contained in this document represents components of the legal health record. It is not the complete legal health record.[facility]
== END 2025-01-25 13:49 | disposition home or self-care (01) ==
LOC: HO.HMCHD 12:59
PROVIDERS: PCP Physician Assistant; Visit Provider Physician Assistant
DX: I50.20 Unspecified systolic (congestive) heart failure (principal); J44.9 Chronic obstructive pulmonary disease, unspecified; C44.320 Squamous cell carcinoma of skin of unspecified parts of face; M43.06 Spondylolysis, lumbar region; Z09 Encounter for follow-up examination after completed treatment for conditions other than malignant neoplasm; M21.371 Foot drop, right foot